=== PATIENT | female | born 1945 | race Caucasian/White ===

== ENCOUNTER 2018-01-31 16:02 | Observation (INO) | payer OTHER ==
--- OUTSIDE RECORDS SUMMARY | 2018-01-31 16:04 | XMS REPORT | Clinical Summary ---
:1945 Author Organization [facility] Address [address] [place] [address] Phone Care Team Providers Name Role Phone Unavailable Primary Care Provider Unavailable Allergies Active Allergy Reactions Severity Noted Date Comments Aspirin (Tartrazine 12/25/2016 Only) Iodine Itching, Swelling 12/26/2016 IV IODINE ONLY Haloperidol Anxiety Low 12/25/2016 Haloperidol Lactate Anxiety Low 12/26/2016 Iodine And Iodide Hives, Rash Low 12/25/2016 Containing Products Latex Hives, Itching, Rash Low 12/25/2016 Morphine Hives, Anxiety, Other Low 12/25/2016 High blood pressure (See Comments) Penicillins Hives, Rash, Swelling Low 12/25/2016 Pregabalin Anxiety Low 12/26/2016 Current Medications Prescription Sig. Disp. Refills Start Date End Date Status DULoxetine (CYMBALTA) Take 120 mg by Active 60 MG capsule mouth daily. gabapentin Take 600 mg by Active (NEURONTIN) 600 MG mouth 4 (four) tablet times daily. ferrous sulfate 325 Take 325 mg by Active (65 FE) MG tablet mouth daily with breakfast. montelukast Take 10 mg by Active (SINGULAIR) 10 mg mouth nightly. tablet oxazepam (SERAX) 30 Take 30 mg by Active MG capsule mouth 4 (four) times daily. budesonide-formoterol Inhale 2 puffs Active (SYMBICORT) 160-4.5 by mouth via mcg/actuation inhaler inhaler 2 (two) times daily. zolpidem (AMBIEN) 10 Take 10 mg by Active mg tablet mouth every night as needed for Insomnia. carvedilol (COREG) Take 2 tablets 0 2017 Active 12.5 MG tablet (25 mg total) by mouth 2 (two) times daily with breakfast and dinner. traMADol (ULTRAM) 50 Take 1 tablet 30 tablet 0 2017 Active mg tablet (50 mg total) by mouth every 8 (eight) hours as needed for Pain. Max Daily Amount: 150 mg famotidine (PEPCID) Take 1 tablet 0 2017 Active 20 MG tablet (20 mg total) by mouth 2 (two) times daily. zinc oxide-petrolatum Apply 71 g 0 2017 Active (CRITIC-AID) 20-51 % topically 2 Pste topical paste (two) times daily. atorvastatin Take 1 tablet 0 2017 2018 (LIPITOR) 80 MG (80 mg total) by tablet mouth nightly. clopidogrel (PLAVIX) Take 1 tablet 0 2017 2018 75 mg tablet (75 mg total) by mouth daily. cyanocobalamin 1000 Take 1 tablet 30 tablet 11 2017 2018 MCG tablet (1,000 mcg total) by mouth daily. ergocalciferol Take 1 capsule 4 capsule 0 2017 2018 (ERGOCALCIFEROL) (50,000 Units 50,000 unit capsule total) by mouth once a week. furosemide (LASIX) 20 Take 1 tablet 20 tablet 0 2017 2018 MG tablet (20 mg total) by mouth daily. modafinil (PROVIGIL) Take 1 tablet 0 2017 02/02/2017 100 MG tablet (100 mg total) by mouth daily for 30 days. Max Daily Amount: 100 mg nystatin (MYCOSTATIN) Apply topically 15 g 0 2017 2018 100,000 unit/gram 2 (two) times powder daily. Active Problems Problem Noted Date Vitamin D deficiency 01/02/2017 Leucocytosis 12/31/2016 Hypercalcemia 12/29/2016 Morbid obesity (HCC) 12/29/2016 Hyponatremia 12/26/2016 Atrial fibrillation ([facility]) 12/26/2016 Congestive heart failure (CHF) ([facility]) 12/26/2016 Acute right MCA stroke ([facility]) 12/25/2016 Social History Tobacco Use Types Packs/Day Years Used Date Never Smoker Alcohol Use Drinks/Week oz/Week Comments No Sex Assigned at Date Recorded Not on file Last Filed Vital Signs Not on file Plan of Treatment Not on file Results Not on fileafter 01/30/2017
--- OUTSIDE RECORDS SUMMARY | 2018-01-31 16:05 | XMS REPORT ---
:1945 [facility] Organization [facility] Address [address] [place] [address] Care Team Providers Name Role Phone GLORYCECYFROYLAN LOUIS Unavailable Unavailable Problems This patient has no known problems. Allergies, Adverse Reactions, Alerts This patient has no known allergies or adverse reactions. Medications This patient has no known medications. Results Test Description Test Time Test Comments Text Results Atomic Results Result Comments CREATININE CLEARANCE 2017-01-05 17:53:00 Test Item Value Reference Range Comments CREATININE CLEARANCE (BEAKER) (test 47.2 mL/min 70.0-140.0 xwuj=685) VOLUME, TOTAL (BEAKER) (test 1050 ml kkit=6147) CREATININE URINE (BEAKER) (test 78.9 mg/dL rhsd=707) [id number] (BEAKER) (test Linda Pitts MD (electronic dpdb=6476) signature) POCT-GLUCOSE [id number] 11:37:00 Test Item Value Reference Range Comments POC-GLUCOSE METER (BEAKER) 128 mg/dL 70-110 TESTED AT [address] (test ywnx=6226) [place] [id number] URINE [id number] 11:02:00 Test Item Value Reference Range Comments CULTURE (BEAKER) (test xkzl=0790) <10,000 col/mL skin jayshree POCT-GLUCOSE [id number] 06:28:00 Test Item Value Reference Range Comments POC-GLUCOSE METER (BEAKER) 101 mg/dL 70-110 TESTED AT [address] (test xben=1673) [facility] [address] POCT-GLUCOSE [id number] 00:46:00 Test Item Value Reference Range Comments POC-GLUCOSE METER (BEAKER) 130 mg/dL 70-110 TESTED AT [address] (test vuzg=8712) [place] [address] POCT-GLUCOSE [id number] 20:21:00 Test Item Value Reference Range Comments POC-GLUCOSE METER (BEAKER) 133 mg/dL 70-110 TESTED AT [address] (test upul=1246) [place] [address] [id number] 18:44:00 Test Item Value Reference Range Comments CREATININE (BEAKER) (test 0.82 mg/dL 0.57-1.25 gnet=701) EGFR (BEAKER) (test 69 mL/min/1.73 sq m ESTIMATED GFR IS NOT kpee=4349) ACCURATE CREATININE CLEARANCE IN PREDICTING GLOMERULAR FILTRATION RATE. ESTIMATED GFR IS NOT APPLICABLE FOR DIALYSIS PATIENTS. POCT-GLUCOSE [id number] 17:11:00 Test Item Value Reference Range Comments POC-GLUCOSE METER (BEAKER) 118 mg/dL 70-110 TESTED AT [address] (test qeht=0603) [place] [address] POCT-GLUCOSE [id number] 15:29:00 Test Item Value Reference Range Comments POC-GLUCOSE METER (BEAKER) 63 mg/dL 70-110 Notified CICI COTO/TESTED AT [facility] (test rtus=4008) [address] [place] [address] POCT-GLUCOSE [id number] 15:03:00 Test Item Value Reference Range Comments POC-GLUCOSE METER (BEAKER) 51 mg/dL 70-110 Notified CICI COTO/TESTED AT [facility] (test ugdy=4681) [address] [place], [place] [id number] POCT-GLUCOSE [id number] 11:28:00 Test Item Value Reference Range Comments POC-GLUCOSE METER (BEAKER) 75 mg/dL 70-110 TESTED AT [address] (test zvrp=8490) [place] [address] CALCIUM, 24 HOUR [id number] 09:19:00 Test Item Value Reference Range Comments VOLUME, TOTAL (BEAKER) (test jmyw=2415) 1050 ml CALCIUM URINE (BEAKER) (test svxf=433) 15.4 mg/dL CALCIUM, 24HR URINE (BEAKER) (test mgjs=0370) 162 mg/24 Hr 50-300 VITAMIN D, [id number] 07:18:00 Test Item Value Reference Range Comments VITAMIN D 25-OH (BEAKER) (test npfs=2590) < ng/mL 13.0-47.8 CBC W/PLT COUNT & AUTO [id number] 07:04:00 Test Item Value Reference Range Comments WHITE BLOOD CELL COUNT (BEAKER) (test lsym=898) 13.3 K/ L 4.0-10.0 RED BLOOD CELL COUNT (BEAKER) (test nukf=317) 3.79 M/ L 4.00-5.00 HEMOGLOBIN (BEAKER) (test ypfg=370) 12.3 GM/DL 12.0-15.0 HEMATOCRIT (BEAKER) (test vrnm=445) 37.1 % 36.0-45.0 MEAN CORPUSCULAR VOLUME (BEAKER) (test jpfy=663) 98.1 fL 82.0-99.0 MEAN CORPUSCULAR HEMOGLOBIN (BEAKER) (test 32.4 pg 27.0-33.0 axbs=245) MEAN CORPUSCULAR HEMOGLOBIN CONC (BEAKER) (test 33.0 GM/DL 32.0-36.0 ydmc=809) RED CELL DISTRIBUTION WIDTH (BEAKER) (test 15.2 % 10.3-14.2 msda=234) PLATELET COUNT (BEAKER) (test uave=530) 218 K/CU MM 150-430 MEAN PLATELET VOLUME (BEAKER) (test mttb=417) 7.3 fL 6.5-10.5 NUCLEATED RED BLOOD CELLS (BEAKER) (test 0 /100 WBC 0-0 pngp=883) NEUTROPHILS RELATIVE PERCENT (BEAKER) (test 79 % pgia=472) LYMPHOCYTES RELATIVE PERCENT (BEAKER) (test 16 % lzel=130) MONOCYTES RELATIVE PERCENT (BEAKER) (test 5 % ijks=678) EOSINOPHILS RELATIVE PERCENT (BEAKER) (test 1 % jkyt=315) BASOPHILS RELATIVE PERCENT (BEAKER) (test 0 % hvgo=505) NEUTROPHILS ABSOLUTE COUNT (BEAKER) (test 10.40 K/ L 1.80-8.00 jdyz=674) LYMPHOCYTES ABSOLUTE COUNT (BEAKER) (test 2.05 K/ L 1.48-4.50 hdtp=639) MONOCYTES ABSOLUTE COUNT (BEAKER) (test 0.69 K/ L 0.00-1.30 vwrb=503) EOSINOPHILS ABSOLUTE COUNT (BEAKER) (test 0.09 K/ L 0.00-0.50 tntb=207) BASOPHILS ABSOLUTE COUNT (BEAKER) (test 0.01 K/ L 0.00-0.20 dcvs=846) 0.00BASIC METABOLIC [id number] 07:01:00 Test Item Value Reference Range Comments SODIUM (BEAKER) (test 142 meq/L 136-145 kbzh=332) POTASSIUM (BEAKER) (test 3.7 meq/L 3.5-5.1 gwvs=731) CHLORIDE (BEAKER) (test 104 meq/L 98-107 ejaf=871) CO2 (BEAKER) (test 27 meq/L 22-29 rgws=378) BLOOD UREA NITROGEN 35 mg/dL 7-21 (BEAKER) (test gnit=459) CREATININE (BEAKER) (test 0.86 mg/dL 0.57-1.25 okys=954) GLUCOSE RANDOM (BEAKER) 144 mg/dL 70-105 (test vtje=827) CALCIUM (BEAKER) (test 11.6 mg/dL 8.4-10.2 oysc=671) EGFR (BEAKER) (test 65 mL/min/1.73 sq m ESTIMATED GFR IS NOT obvm=1450) ACCURATE CREATININE CLEARANCE IN PREDICTING GLOMERULAR FILTRATION RATE. ESTIMATED GFR IS NOT APPLICABLE FOR DIALYSIS PATIENTS. [id number] 06:57:00 Test Item Value Reference Range Comments PHOSPHORUS (BEAKER) (test acki=088) 3.0 mg/dL 2.3-4.7 [id number] 06:57:00 Test Item Value Reference Range Comments MAGNESIUM (BEAKER) (test gwqm=566) 2.2 mg/dL 1.6-2.6 [id number] 06:34:00 Test Item Value Reference Range Comments ALBUMIN (BEAKER) (test inpp=0215) 3.8 g/dL 3.5-5.0 POCT-GLUCOSE [id number] 06:32:00 Test Item Value Reference Range Comments POC-GLUCOSE METER (BEAKER) 104 mg/dL 70-110 TESTED AT [address] (test qikz=1684) [facility] [address] POCT-GLUCOSE [id number] 23:41:00 Test Item Value Reference Range Comments POC-GLUCOSE METER (BEAKER) 108 mg/dL 70-110 TESTED AT [address] (test rorw=8273) [place] [address] POCT-GLUCOSE [id number] 17:58:00 Test Item Value Reference Range Comments POC-GLUCOSE METER (BEAKER) 112 mg/dL 70-110 TESTED AT [address] (test mspv=1039) [place] [address] URINALYSIS W/ REFLEX URINE [id number] 16:02:00 Test Item Value Reference Range Comments COLOR (BEAKER) (test vxqm=495) Yellow CLARITY (BEAKER) (test suag=945) Clear SPECIFIC GRAVITY UA (BEAKER) (test ngeu=992) 1.015 1.001-1.035 PH UA (BEAKER) (test hadq=579) 6.0 5.0-8.0 PROTEIN UA (BEAKER) (test xplh=522) Negative Negative GLUCOSE UA (BEAKER) (test rqhu=989) Negative Negative KETONES UA (BEAKER) (test uhih=507) Negative Negative BILIRUBIN UA (BEAKER) (test oowm=448) Negative Negative BLOOD UA (BEAKER) (test gyso=351) Negative Negative NITRITE UA (BEAKER) (test xbev=662) Negative Negative LEUKOCYTE ESTERASE UA (BEAKER) (test hcym=178) Moderate Negative UROBILINOGEN UA (BEAKER) (test ilyy=553) 0.2 mg/dL 0.2-1.0 RBC UA (BEAKER) (test qjgo=721) 10 /HPF WBC UA (BEAKER) (test qesh=465) 29 /HPF MUCUS (BEAKER) (test ltrr=1517) Few SQUAMOUS EPITHELIAL (BEAKER) (test vsvu=205) 1 /HPF HYALINE CASTS (BEAKER) (test bpqp=066) 2 /LPF SOURCE(BEAKER) (test wfqk=5825) POCT-GLUCOSE [id number] 12:49:00 Test Item Value Reference Range Comments POC-GLUCOSE METER (BEAKER) 79 mg/dL 70-110 TESTED AT [address] (test weob=7767) [place] [id number] CBC W/PLT COUNT & AUTO [id number] 09:59:00 Test Item Value Reference Range Comments WHITE BLOOD CELL COUNT (BEAKER) (test athm=357) 17.0 K/ L 4.0-10.0 RED BLOOD CELL COUNT (BEAKER) (test imad=548) 3.96 M/ L 4.00-5.00 HEMOGLOBIN (BEAKER) (test hmgz=689) 12.1 GM/DL 12.0-15.0 HEMATOCRIT (BEAKER) (test suzo=085) 39.2 % 36.0-45.0 MEAN CORPUSCULAR VOLUME (BEAKER) (test ydfo=918) 99.0 fL 82.0-99.0 MEAN CORPUSCULAR HEMOGLOBIN (BEAKER) (test 30.5 pg 27.0-33.0 sgqj=466) MEAN CORPUSCULAR HEMOGLOBIN CONC (BEAKER) (test 30.8 GM/DL 32.0-36.0 dbsl=991) RED CELL DISTRIBUTION WIDTH (BEAKER) (test 15.5 % 10.3-14.2 ypwp=635) PLATELET COUNT (BEAKER) (test opyy=405) 219 K/CU MM 150-430 MEAN PLATELET VOLUME (BEAKER) (test dmqo=613) 7.3 fL 6.5-10.5 NUCLEATED RED BLOOD CELLS (BEAKER) (test 0 /100 WBC 0-0 dgvi=259) NEUTROPHILS RELATIVE PERCENT (BEAKER) (test 80 % xccs=978) LYMPHOCYTES RELATIVE PERCENT (BEAKER) (test 14 % eqqn=025) MONOCYTES RELATIVE PERCENT (BEAKER) (test 6 % fjwp=850) EOSINOPHILS RELATIVE PERCENT (BEAKER) (test 1 % texe=089) BASOPHILS RELATIVE PERCENT (BEAKER) (test 0 % vebg=584) NEUTROPHILS ABSOLUTE COUNT (BEAKER) (test 13.60 K/ L 1.80-8.00 ieko=145) LYMPHOCYTES ABSOLUTE COUNT (BEAKER) (test 2.32 K/ L 1.48-4.50 axwx=565) MONOCYTES ABSOLUTE COUNT (BEAKER) (test 0.97 K/ L 0.00-1.30 ykvq=063) EOSINOPHILS ABSOLUTE COUNT (BEAKER) (test 0.10 K/ L 0.00-0.50 erkz=752) BASOPHILS ABSOLUTE COUNT (BEAKER) (test 0.01 K/ L 0.00-0.20 ttqg=817) 0.000.510.000.000.000.00(MANUAL DIFFERENTIAL)2017-01-01 09:59:00 Test Item Value Reference Range Comments TOTAL COUNTED (BEAKER) (test ukwn=5141) WBC MORPHOLOGY (BEAKER) (test cwwd=019) Normal PLT MORPHOLOGY (BEAKER) (test kgcz=187) Normal RBC MORPHOLOGY (BEAKER) (test hryu=450) Normal POCT-GLUCOSE [id number] 06:20:00 Test Item Value Reference Range Comments POC-GLUCOSE METER (BEAKER) 140 mg/dL 70-110 TESTED AT [facility] [address] (test pvnx=1485) [facility] [address] [id number] 06:11:00 Test Item Value Reference Range Comments ALBUMIN (BEAKER) (test 3.2 g/dL 3.5-5.0 Specimen moderately hemolyzed psds=8585) BASIC METABOLIC [id number] 06:00:00 Test Item Value Reference Range Comments SODIUM (BEAKER) (test 143 meq/L 136-145 iwuv=305) POTASSIUM (BEAKER) (test 3.8 meq/L 3.5-5.1 enqy=564) CHLORIDE (BEAKER) (test 102 meq/L 98-107 aedq=901) CO2 (BEAKER) (test 31 meq/L 22-29 blgs=329) BLOOD UREA NITROGEN 33 mg/dL 7-21 (BEAKER) (test bcmu=389) CREATININE (BEAKER) (test 0.89 mg/dL 0.57-1.25 iwog=479) GLUCOSE RANDOM (BEAKER) 145 mg/dL 70-105 (test ybow=521) CALCIUM (BEAKER) (test 11.6 mg/dL 8.4-10.2 asni=574) EGFR (BEAKER) (test 63 mL/min/1.73 sq m ESTIMATED GFR IS NOT pjzi=9699) ACCURATE CREATININE CLEARANCE IN PREDICTING GLOMERULAR FILTRATION RATE. ESTIMATED GFR IS NOT APPLICABLE FOR DIALYSIS PATIENTS. [id number] 05:59:00 Test Item Value Reference Range Comments PHOSPHORUS (BEAKER) (test ttyf=939) 3.1 mg/dL 2.3-4.7 [id number] 05:59:00 Test Item Value Reference Range Comments MAGNESIUM (BEAKER) (test qhjv=671) 2.0 mg/dL 1.6-2.6 POCT-GLUCOSE [id number] 23:38:00 Test Item Value Reference Range Comments POC-GLUCOSE METER (BEAKER) 156 mg/dL 70-110 TESTED AT [address] (test qbsc=5655) [facility] [address] POCT-GLUCOSE [id number] 18:18:00 Test Item Value Reference Range Comments POC-GLUCOSE METER (BEAKER) 110 mg/dL 70-110 TESTED AT [address] (test ifyr=4883) [place] [id number] POCT-GLUCOSE [id number] 11:44:00 Test Item Value Reference Range Comments POC-GLUCOSE METER (BEAKER) 79 mg/dL 70-110 TESTED AT [address] (test vnfa=3372) [place] [id number] CBC W/PLT COUNT & AUTO [id number] 11:03:00 Test Item Value Reference Range Comments WHITE BLOOD CELL COUNT (BEAKER) (test bygd=743) 13.9 K/ L 4.0-10.0 RED BLOOD CELL COUNT (BEAKER) (test aphn=177) 3.86 M/ L 4.00-5.00 HEMOGLOBIN (BEAKER) (test foou=289) 12.4 GM/DL 12.0-15.0 HEMATOCRIT (BEAKER) (test pjxr=476) 37.7 % 36.0-45.0 MEAN CORPUSCULAR VOLUME (BEAKER) (test wjyi=205) 97.5 fL 82.0-99.0 MEAN CORPUSCULAR HEMOGLOBIN (BEAKER) (test 32.2 pg 27.0-33.0 ohcu=205) MEAN CORPUSCULAR HEMOGLOBIN CONC (BEAKER) (test 33.0 GM/DL 32.0-36.0 svnq=432) RED CELL DISTRIBUTION WIDTH (BEAKER) (test 16.4 % 10.3-14.2 titv=554) PLATELET COUNT (BEAKER) (test yvem=930) 248 K/CU MM 150-430 MEAN PLATELET VOLUME (BEAKER) (test uqbu=964) 7.1 fL 6.5-10.5 NUCLEATED RED BLOOD CELLS (BEAKER) (test 0 /100 WBC 0-0 qvnv=617) NEUTROPHILS RELATIVE PERCENT (BEAKER) (test 81 % qscj=329) LYMPHOCYTES RELATIVE PERCENT (BEAKER) (test 12 % bqzl=076) MONOCYTES RELATIVE PERCENT (BEAKER) (test 6 % miuk=949) EOSINOPHILS RELATIVE PERCENT (BEAKER) (test 1 % orvk=330) BASOPHILS RELATIVE PERCENT (BEAKER) (test 0 % iujg=470) NEUTROPHILS ABSOLUTE COUNT (BEAKER) (test 11.30 K/ L 1.80-8.00 amgy=099) LYMPHOCYTES ABSOLUTE COUNT (BEAKER) (test 1.62 K/ L 1.48-4.50 cotl=608) MONOCYTES ABSOLUTE COUNT (BEAKER) (test 0.84 K/ L 0.00-1.30 zhyp=629) EOSINOPHILS ABSOLUTE COUNT (BEAKER) (test 0.15 K/ L 0.00-0.50 gwys=667) BASOPHILS ABSOLUTE COUNT (BEAKER) (test 0.03 K/ L 0.00-0.20 jklg=445) 0.000.520.000.000.000.000.000.000.00(MANUAL DIFFERENTIAL)2016-12-31 11:03:00 Test Item Value Reference Range Comments TOTAL COUNTED (BEAKER) (test ytus=1192) WBC MORPHOLOGY (BEAKER) (test ijzd=641) Normal PLT MORPHOLOGY (BEAKER) (test wflz=914) Normal RBC MORPHOLOGY (BEAKER) (test brji=300) Normal POCT-GLUCOSE [id number] 06:21:00 Test Item Value Reference Range Comments POC-GLUCOSE METER (BEAKER) 152 mg/dL 70-110 TESTED AT [facility] [address] [place] [address] (test ywpp=8386) [facility] [address] BASIC METABOLIC [id number] 06:04:00 Test Item Value Reference Range Comments SODIUM (BEAKER) (test 142 meq/L 136-145 unnx=522) POTASSIUM (BEAKER) (test 3.8 meq/L 3.5-5.1 cvnh=726) CHLORIDE (BEAKER) (test 102 meq/L 98-107 lcox=829) CO2 (BEAKER) (test 29 meq/L 22-29 izep=528) BLOOD UREA NITROGEN 34 mg/dL 7-21 (BEAKER) (test xbul=200) CREATININE (BEAKER) (test 0.85 mg/dL 0.57-1.25 fajn=038) GLUCOSE RANDOM (BEAKER) 151 mg/dL 70-105 (test gibt=742) CALCIUM (BEAKER) (test 11.7 mg/dL 8.4-10.2 aptu=488) EGFR (BEAKER) (test 66 mL/min/1.73 sq m ESTIMATED GFR IS NOT dxyb=9925) ACCURATE CREATININE CLEARANCE IN PREDICTING GLOMERULAR FILTRATION RATE. ESTIMATED GFR IS NOT APPLICABLE FOR DIALYSIS PATIENTS. [id number] 05:56:00 Test Item Value Reference Range Comments PHOSPHORUS (BEAKER) (test nhhj=003) 3.5 mg/dL 2.3-4.7 [id number] 05:56:00 Test Item Value Reference Range Comments MAGNESIUM (BEAKER) (test vxfp=828) 1.9 mg/dL 1.6-2.6 POCT-GLUCOSE [id number] 23:51:00 Test Item Value Reference Range Comments POC-GLUCOSE METER (BEAKER) 168 mg/dL 70-110 TESTED AT [address] (test pamt=0232) [facility] [address] POCT-GLUCOSE [id number] 18:34:00 Test Item Value Reference Range Comments POC-GLUCOSE METER (BEAKER) 80 mg/dL 70-110 TESTED AT [address] (test ekrf=7615) [facility] [address] POCT-GLUCOSE [id number] 16:09:00 Test Item Value Reference Range Comments POC-GLUCOSE METER (BEAKER) 83 mg/dL 70-110 TESTED AT [address] (test gxrd=3984) [facility] [address] POCT-GLUCOSE [id number] 16:09:00 Test Item Value Reference Range Comments POC-GLUCOSE METER (BEAKER) 41 mg/dL 70-110 TESTED AT [address] (test voxo=3082) [facility] [address] POCT-GLUCOSE [id number] 15:20:00 Test Item Value Reference Range Comments POC-GLUCOSE METER (BEAKER) 44 mg/dL 70-110 TESTED AT [address] (test tcox=4782) [facility] [address] POCT-GLUCOSE [id number] 08:27:00 Test Item Value Reference Range Comments POC-GLUCOSE METER (BEAKER) 114 mg/dL 70-110 TESTED AT [address] (test ykob=9144) [facility] [address] POCT-GLUCOSE [id number] 08:27:00 Test Item Value Reference Range Comments POC-GLUCOSE METER (BEAKER) 35 mg/dL 70-110 [address] (test xgee=7674) [facility] [address] CBC W/PLT COUNT & AUTO [id number] 07:04:00 Test Item Value Reference Range Comments WHITE BLOOD CELL COUNT (BEAKER) (test vtkj=512) 8.2 K/ L 4.0-10.0 RED BLOOD CELL COUNT (BEAKER) (test mpqe=132) 4.05 M/ L 4.00-5.00 HEMOGLOBIN (BEAKER) (test zrjh=676) 12.8 GM/DL 12.0-15.0 HEMATOCRIT (BEAKER) (test qmwo=218) 39.2 % 36.0-45.0 MEAN CORPUSCULAR VOLUME (BEAKER) (test bygh=610) 97.0 fL 82.0-99.0 MEAN CORPUSCULAR HEMOGLOBIN (BEAKER) (test 31.7 pg 27.0-33.0 hvga=028) MEAN CORPUSCULAR HEMOGLOBIN CONC (BEAKER) (test 32.7 GM/DL 32.0-36.0 zwde=541) RED CELL DISTRIBUTION WIDTH (BEAKER) (test 15.6 % 10.3-14.2 poqr=185) PLATELET COUNT (BEAKER) (test mqas=547) 275 K/CU MM 150-430 MEAN PLATELET VOLUME (BEAKER) (test qukj=965) 6.9 fL 6.5-10.5 NUCLEATED RED BLOOD CELLS (BEAKER) (test 0 /100 WBC 0-0 cjck=187) NEUTROPHILS RELATIVE PERCENT (BEAKER) (test 63 % qnos=401) LYMPHOCYTES RELATIVE PERCENT (BEAKER) (test 27 % wjir=336) MONOCYTES RELATIVE PERCENT (BEAKER) (test 7 % cqlm=783) EOSINOPHILS RELATIVE PERCENT (BEAKER) (test 2 % myiz=039) BASOPHILS RELATIVE PERCENT (BEAKER) (test 1 % afko=375) NEUTROPHILS ABSOLUTE COUNT (BEAKER) (test 5.13 K/ L 1.80-8.00 qkhw=714) LYMPHOCYTES ABSOLUTE COUNT (BEAKER) (test 2.21 K/ L 1.48-4.50 atgd=285) MONOCYTES ABSOLUTE COUNT (BEAKER) (test 0.59 K/ L 0.00-1.30 pcgh=373) EOSINOPHILS ABSOLUTE COUNT (BEAKER) (test 0.18 K/ L 0.00-0.50 xgny=825) BASOPHILS ABSOLUTE COUNT (BEAKER) (test 0.10 K/ L 0.00-0.20 brxp=894) 0.00POCT-GLUCOSE [id number] 06:20:00 Test Item Value Reference Range Comments POC-GLUCOSE METER (BEAKER) 62 mg/dL 70-110 Notified CICI COTO/TESTED AT [facility] (test omdp=2291) [address] [facility] [address] BASIC METABOLIC [id number] 06:13:00 Test Item Value Reference Range Comments SODIUM (BEAKER) (test 141 meq/L 136-145 xxgv=877) POTASSIUM (BEAKER) (test 4.3 meq/L 3.5-5.1 dfev=262) CHLORIDE (BEAKER) (test 99 meq/L 98-107 hmzo=296) CO2 (BEAKER) (test 33 meq/L 22-29 rowr=385) BLOOD UREA NITROGEN 36 mg/dL 7-21 (BEAKER) (test rgpo=024) CREATININE (BEAKER) (test 0.93 mg/dL 0.57-1.25 cukw=215) GLUCOSE RANDOM (BEAKER) 107 mg/dL 70-105 (test xrdw=091) CALCIUM (BEAKER) (test 11.9 mg/dL 8.4-10.2 ewcj=803) EGFR (BEAKER) (test 59 mL/min/1.73 sq m ESTIMATED GFR IS NOT xjqi=7921) ACCURATE CREATININE CLEARANCE IN PREDICTING GLOMERULAR FILTRATION RATE. ESTIMATED GFR IS NOT APPLICABLE FOR DIALYSIS PATIENTS. [id number] 06:10:00 Test Item Value Reference Range Comments PHOSPHORUS (BEAKER) (test ptht=208) 3.5 mg/dL 2.3-4.7 [id number] 06:10:00 Test Item Value Reference Range Comments MAGNESIUM (BEAKER) (test kaek=897) 2.2 mg/dL 1.6-2.6 PROTHROMBIN [id number] 06:05:00 Test Item Value Reference Range Comments PROTIME (BEAKER) (test scmf=056) 15.5 seconds 11.7-14.7 INR (BEAKER) (test ubab=127) 1.2 <=5.9 RECOMMENDED COUMADIN/WARFARIN INR THERAPY RANGESSTANDARD DOSE: 2.0 - 3.0 Includes: PROPHYLAXIS forvenous thrombosis, systemic embolization; TREATMENT for venous thrombosis and/or pulmonary embolus.HIGH RISK: Target INR is 2.5-3.5 for patients with mechanical heart valves.POCT-GLUCOSE [id number] 23:58:00 Test Item Value Reference Range Comments POC-GLUCOSE METER (BEAKER) 108 mg/dL 70-110 TESTED AT [address] (test jyij=7189) [place] [address] POCT-GLUCOSE [id number] 18:02:00 Test Item Value Reference Range Comments POC-GLUCOSE METER (BEAKER) 126 mg/dL 70-110 TESTED AT [address] (test yuuk=5372) [place] [address] PTH, [id number] 14:50:00 Test Item Value Reference Range Comments PARATHYROID HORMONE INTACT (BEAKER) (test 274.9 pg/mL 8.5-72.5 ylyh=340) Effective 08/19/2014: Reference Range ChangeNew: 8.5-72.5 Previous: 15.0- 90.0POCT-GLUCOSE [id number] 13:33:00 Test Item Value Reference Range Comments POC-GLUCOSE METER (BEAKER) 145 mg/dL 70-110 TESTED AT [address] (test rzfc=0141) [place] [address] CBC W/PLT COUNT & AUTO [id number] 08:35:00 Test Item Value Reference Range Comments WHITE BLOOD CELL COUNT (BEAKER) (test mgfr=069) 10.2 K/ L 4.0-10.0 RED BLOOD CELL COUNT (BEAKER) (test mcuu=518) 3.96 M/ L 4.00-5.00 HEMOGLOBIN (BEAKER) (test vxpu=561) 12.8 GM/DL 12.0-15.0 HEMATOCRIT (BEAKER) (test cbzg=733) 38.7 % 36.0-45.0 MEAN CORPUSCULAR VOLUME (BEAKER) (test oqia=660) 97.7 fL 82.0-99.0 MEAN CORPUSCULAR HEMOGLOBIN (BEAKER) (test 32.2 pg 27.0-33.0 tanl=603) MEAN CORPUSCULAR HEMOGLOBIN CONC (BEAKER) (test 33.0 GM/DL 32.0-36.0 xuqo=995) RED CELL DISTRIBUTION WIDTH (BEAKER) (test 16.7 % 10.3-14.2 mrwa=379) PLATELET COUNT (BEAKER) (test iyoi=138) 279 K/CU MM 150-430 MEAN PLATELET VOLUME (BEAKER) (test vztn=631) 6.7 fL 6.5-10.5 NUCLEATED RED BLOOD CELLS (BEAKER) (test 0 /100 WBC 0-0 wruw=860) NEUTROPHILS RELATIVE PERCENT (BEAKER) (test 70 % hsod=998) LYMPHOCYTES RELATIVE PERCENT (BEAKER) (test 22 % zyly=517) MONOCYTES RELATIVE PERCENT (BEAKER) (test 7 % yytc=227) EOSINOPHILS RELATIVE PERCENT (BEAKER) (test 2 % wrdh=551) BASOPHILS RELATIVE PERCENT (BEAKER) (test 0 % gcrl=006) NEUTROPHILS ABSOLUTE COUNT (BEAKER) (test 7.11 K/ L 1.80-8.00 thnw=651) LYMPHOCYTES ABSOLUTE COUNT (BEAKER) (test 2.19 K/ L 1.48-4.50 pmxh=591) MONOCYTES ABSOLUTE COUNT (BEAKER) (test 0.70 K/ L 0.00-1.30 qlug=504) EOSINOPHILS ABSOLUTE COUNT (BEAKER) (test 0.18 K/ L 0.00-0.50 beyk=864) BASOPHILS ABSOLUTE COUNT (BEAKER) (test 0.02 K/ L 0.00-0.20 vshx=706) [id number](MANUAL DIFFERENTIAL)2016-12-29 08:35:00 Test Item Value Reference Range Comments TOTAL COUNTED (BEAKER) (test mfqh=3937) BASIC METABOLIC [id number] 06:00:00 Test Item Value Reference Range Comments SODIUM (BEAKER) (test 141 meq/L 136-145 plaf=983) POTASSIUM (BEAKER) (test 4.3 meq/L 3.5-5.1 Specimen slightly jsqh=715) hemolyzed CHLORIDE (BEAKER) (test 100 meq/L 98-107 nqbr=355) CO2 (BEAKER) (test 29 meq/L 22-29 tzdc=598) BLOOD UREA NITROGEN 34 mg/dL 7-21 (BEAKER) (test tnds=781) CREATININE (BEAKER) (test 0.91 mg/dL 0.57-1.25 Specimen slightly jhro=989) hemolyzed GLUCOSE RANDOM (BEAKER) 110 mg/dL 70-105 (test ckka=668) CALCIUM (BEAKER) (test 12.0 mg/dL 8.4-10.2 csqr=490) EGFR (BEAKER) (test 61 mL/min/1.73 sq m ESTIMATED GFR IS NOT tteu=7156) ACCURATE CREATININE CLEARANCE IN PREDICTING GLOMERULAR FILTRATION RATE. ESTIMATED GFR IS NOT APPLICABLE FOR DIALYSIS PATIENTS. [id number] 05:59:00 Test Item Value Reference Range Comments MAGNESIUM (BEAKER) (test 2.4 mg/dL 1.6-2.6 Specimen slightly hemolyzed ioht=658) [id number] 05:59:00 Test Item Value Reference Range Comments PHOSPHORUS (BEAKER) (test 3.1 mg/dL 2.3-4.7 Specimen slightly hemolyzed oyev=007) POCT-GLUCOSE [id number] 05:32:00 Test Item Value Reference Range Comments POC-GLUCOSE METER (BEAKER) 114 mg/dL 70-110 TESTED AT [address] (test srkm=8524) [place] [id number] POCT-GLUCOSE [id number] 00:02:00 Test Item Value Reference Range Comments POC-GLUCOSE METER (BEAKER) 106 mg/dL 70-110 TESTED AT [address] (test uypz=5838) [place] [id number] POCT-GLUCOSE [id number] 18:28:00 Test Item Value Reference Range Comments POC-GLUCOSE METER (BEAKER) 150 mg/dL 70-110 TESTED AT [address] (test jcvi=9607) [place] [id number] POCT-GLUCOSE [id number] 12:31:00 Test Item Value Reference Range Comments POC-GLUCOSE METER (BEAKER) 152 mg/dL 70-110 TESTED AT [address] (test qren=3954) [place] [id number] POCT-GLUCOSE [id number] 05:41:00 Test Item Value Reference Range Comments POC-GLUCOSE METER (BEAKER) 120 mg/dL 70-110 TESTED AT [address] (test ryaz=0484) [place] [id number] CBC W/PLT COUNT & AUTO [id number] 05:00:00 Test Item Value Reference Range Comments WHITE BLOOD CELL COUNT (BEAKER) (test kjrb=671) 8.8 K/ L 4.0-10.0 RED BLOOD CELL COUNT (BEAKER) (test wfjk=003) 3.76 M/ L 4.00-5.00 HEMOGLOBIN (BEAKER) (test ueoo=443) 11.3 GM/DL 12.0-15.0 HEMATOCRIT (BEAKER) (test irtj=354) 35.7 % 36.0-45.0 MEAN CORPUSCULAR VOLUME (BEAKER) (test ujoo=176) 95.1 fL 82.0-99.0 MEAN CORPUSCULAR HEMOGLOBIN (BEAKER) (test 30.2 pg 27.0-33.0 nkmc=785) MEAN CORPUSCULAR HEMOGLOBIN CONC (BEAKER) (test 31.7 GM/DL 32.0-36.0 wirz=196) RED CELL DISTRIBUTION WIDTH (BEAKER) (test 15.5 % 10.3-14.2 sprk=899) PLATELET COUNT (BEAKER) (test zzfv=119) 259 K/CU MM 150-430 MEAN PLATELET VOLUME (BEAKER) (test bibq=147) 6.3 fL 6.5-10.5 NUCLEATED RED BLOOD CELLS (BEAKER) (test 0 /100 WBC 0-0 senh=779) NEUTROPHILS RELATIVE PERCENT (BEAKER) (test 72 % gsvp=243) LYMPHOCYTES RELATIVE PERCENT (BEAKER) (test 20 % mwfj=427) MONOCYTES RELATIVE PERCENT (BEAKER) (test 6 % ffjd=965) EOSINOPHILS RELATIVE PERCENT (BEAKER) (test 1 % efxj=466) BASOPHILS RELATIVE PERCENT (BEAKER) (test 0 % kxpb=356) NEUTROPHILS ABSOLUTE COUNT (BEAKER) (test 6.39 K/ L 1.80-8.00 yltm=808) LYMPHOCYTES ABSOLUTE COUNT (BEAKER) (test 1.75 K/ L 1.48-4.50 vlil=492) MONOCYTES ABSOLUTE COUNT (BEAKER) (test 0.57 K/ L 0.00-1.30 ppdf=131) EOSINOPHILS ABSOLUTE COUNT (BEAKER) (test 0.11 K/ L 0.00-0.50 rzny=669) BASOPHILS ABSOLUTE COUNT (BEAKER) (test 0.02 K/ L 0.00-0.20 qtxu=489) 0.00BASIC METABOLIC [id number] 04:58:00 Test Item Value Reference Range Comments SODIUM (BEAKER) (test 142 meq/L 136-145 ypyd=247) POTASSIUM (BEAKER) (test 3.6 meq/L 3.5-5.1 Specimen slightly cpxm=327) hemolyzed CHLORIDE (BEAKER) (test 98 meq/L 98-107 twep=051) CO2 (BEAKER) (test 32 meq/L 22-29 xurx=538) BLOOD UREA NITROGEN 32 mg/dL 7-21 (BEAKER) (test qxkz=475) CREATININE (BEAKER) (test 0.92 mg/dL 0.57-1.25 Specimen slightly hnfd=916) hemolyzed GLUCOSE RANDOM (BEAKER) 134 mg/dL 70-105 (test vunr=963) CALCIUM (BEAKER) (test 11.5 mg/dL 8.4-10.2 bard=676) EGFR (BEAKER) (test 60 mL/min/1.73 sq m ESTIMATED GFR IS NOT dwjq=1136) ACCURATE CREATININE CLEARANCE IN PREDICTING GLOMERULAR FILTRATION RATE. ESTIMATED GFR IS NOT APPLICABLE FOR DIALYSIS PATIENTS. [id number] 04:57:00 Test Item Value Reference Range Comments MAGNESIUM (BEAKER) (test 2.5 mg/dL 1.6-2.6 Specimen slightly hemolyzed obhp=277) [id number] 04:57:00 Test Item Value Reference Range Comments PHOSPHORUS (BEAKER) (test 3.3 mg/dL 2.3-4.7 Specimen slightly hemolyzed unig=738) POCT-GLUCOSE [id number] 00:44:00 Test Item Value Reference Range Comments POC-GLUCOSE METER (BEAKER) 142 mg/dL 70-110 TESTED AT [address] (test ltkg=6301) [facility] [address] POCT-GLUCOSE [id number] 18:34:00 Test Item Value Reference Range Comments POC-GLUCOSE METER (BEAKER) 115 mg/dL 70-110 TESTED AT [address] (test yfrn=4680) [facility] [address] POCT-GLUCOSE [id number] 12:21:00 Test Item Value Reference Range Comments POC-GLUCOSE METER (BEAKER) 123 mg/dL 70-110 TESTED AT [address] (test umww=9821) [place] [address] URINE [id number] 10:42:00 Test Item Value Reference Range Comments CULTURE (BEAKER) (test ypqz=8393) No growth [id number] 06:53:00 Test Item Value Reference Range Comments POTASSIUM (BEAKER) (test nado=741) 3.6 meq/L 3.5-5.1 Check Serum Potassium level 2 hours after oral potassium replacement completed or 30 min after intravenous potassium replacement.[id number] 06:53:00 Test Item Value Reference Range Comments MAGNESIUM (BEAKER) (test gdlx=101) 2.7 mg/dL 1.6-2.6 Check Serum Potassium level 2 hours after oral potassium replacement completed or 30 min after intravenous potassium replacement.POCT-GLUCOSE [id number] 06:27:00 Test Item Value Reference Range Comments POC-GLUCOSE METER (BEAKER) 113 mg/dL 70-110 TESTED AT [address] (test fqmw=8983) [place] [address] BASIC METABOLIC [id number] 02:30:00 Test Item Value Reference Range Comments SODIUM (BEAKER) (test 139 meq/L 136-145 lxwp=623) POTASSIUM (BEAKER) (test 3.8 meq/L 3.5-5.1 xqwu=944) CHLORIDE (BEAKER) (test 95 meq/L 98-107 osve=839) CO2 (BEAKER) (test 30 meq/L 22-29 wadh=037) BLOOD UREA NITROGEN 24 mg/dL 7-21 (BEAKER) (test wswt=443) CREATININE (BEAKER) (test 0.96 mg/dL 0.57-1.25 wrko=572) GLUCOSE RANDOM (BEAKER) 122 mg/dL 70-105 (test hjfv=259) CALCIUM (BEAKER) (test 11.6 mg/dL 8.4-10.2 xlip=527) EGFR (BEAKER) (test 57 mL/min/1.73 sq m ESTIMATED GFR IS NOT iueq=2857) ACCURATE CREATININE CLEARANCE IN PREDICTING GLOMERULAR FILTRATION RATE. ESTIMATED GFR IS NOT APPLICABLE FOR DIALYSIS PATIENTS. [id number] 02:29:00 Test Item Value Reference Range Comments PHOSPHORUS (BEAKER) (test kgbz=242) 3.5 mg/dL 2.3-4.7 [id number] 02:29:00 Test Item Value Reference Range Comments MAGNESIUM (BEAKER) (test ynxn=509) 2.2 mg/dL 1.6-2.6 [id number] 02:29:00 Test Item Value Reference Range Comments SODIUM (BEAKER) (test cxcb=893) 139 meq/L 136-145 CBC W/PLT COUNT & AUTO [id number] 02:21:00 Test Item Value Reference Range Comments WHITE BLOOD CELL COUNT (BEAKER) (test opbp=804) 6.2 K/ L 4.0-10.0 RED BLOOD CELL COUNT (BEAKER) (test nufc=763) 3.77 M/ L 4.00-5.00 HEMOGLOBIN (BEAKER) (test iyua=709) 11.8 GM/DL 12.0-15.0 HEMATOCRIT (BEAKER) (test mdwh=451) 36.1 % 36.0-45.0 MEAN CORPUSCULAR VOLUME (BEAKER) (test hvsg=200) 95.9 fL 82.0-99.0 MEAN CORPUSCULAR HEMOGLOBIN (BEAKER) (test 31.3 pg 27.0-33.0 hmeh=200) MEAN CORPUSCULAR HEMOGLOBIN CONC (BEAKER) (test 32.6 GM/DL 32.0-36.0 twhz=725) RED CELL DISTRIBUTION WIDTH (BEAKER) (test 16.7 % 10.3-14.2 mhlq=067) PLATELET COUNT (BEAKER) (test mzqb=142) 247 K/CU MM 150-430 MEAN PLATELET VOLUME (BEAKER) (test xwuf=518) 6.3 fL 6.5-10.5 NUCLEATED RED BLOOD CELLS (BEAKER) (test 0 /100 WBC 0-0 oiyi=161) NEUTROPHILS RELATIVE PERCENT (BEAKER) (test 73 % mctf=786) LYMPHOCYTES RELATIVE PERCENT (BEAKER) (test 19 % unqu=814) MONOCYTES RELATIVE PERCENT (BEAKER) (test 8 % izbv=103) EOSINOPHILS RELATIVE PERCENT (BEAKER) (test 0 % djby=285) BASOPHILS RELATIVE PERCENT (BEAKER) (test 0 % ksxm=030) NEUTROPHILS ABSOLUTE COUNT (BEAKER) (test 4.53 K/ L 1.80-8.00 qool=238) LYMPHOCYTES ABSOLUTE COUNT (BEAKER) (test 1.16 K/ L 1.48-4.50 nxlu=191) MONOCYTES ABSOLUTE COUNT (BEAKER) (test 0.47 K/ L 0.00-1.30 tlbg=868) EOSINOPHILS ABSOLUTE COUNT (BEAKER) (test 0.02 K/ L 0.00-0.50 kpxg=932) BASOPHILS ABSOLUTE COUNT (BEAKER) (test 0.00 K/ L 0.00-0.20 mpot=427) 0.00POCT-GLUCOSE [id number] 00:44:00 Test Item Value Reference Range Comments POC-GLUCOSE METER (BEAKER) 121 mg/dL 70-110 TESTED AT [address] (test gggw=0695) [facility] [address] [id number] 20:34:00 Test Item Value Reference Range Comments SODIUM (BEAKER) (test xvkb=506) 138 meq/L 136-145 HEPATIC FUNCTION [id number] 20:34:00 Test Item Value Reference Range Comments TOTAL PROTEIN (BEAKER) (test zsqs=737) 6.7 gm/dL 6.0-8.3 ALBUMIN (BEAKER) (test hkak=9766) 3.6 g/dL 3.5-5.0 BILIRUBIN TOTAL (BEAKER) (test llzb=095) 0.3 mg/dL 0.2-1.2 BILIRUBIN DIRECT (BEAKER) (test fkjt=048) 0.2 mg/dL 0.1-0.5 ALKALINE PHOSPHATASE (BEAKER) (test iunr=456) 148 U/L 40-150 AST (SGOT) (BEAKER) (test yoxn=148) 15 U/L 5-34 ALT (SGPT) (BEAKER) (test hlsi=809) 15 U/L 6-55 [id number] 20:25:00 Test Item Value Reference Range Comments AMMONIA (BEAKER) (test rffr=848) 30 mol/L 18-72 POCT-GLUCOSE [id number] 19:58:00 Test Item Value Reference Range Comments POC-GLUCOSE METER (BEAKER) 125 mg/dL 70-110 TESTED AT [address] (test gipm=9628) [facility] [address] [id number] 14:30:00 Test Item Value Reference Range Comments RPR SCREEN (BEAKER) (test ufro=186) Nonreactive Nonreactive [id number] 13:35:00 Test Item Value Reference Range Comments SODIUM (BEAKER) (test tjni=919) 136 meq/L 136-145 [id number] 13:23:00 Test Item Value Reference Range Comments CORTISOL, TOTAL (BEAKER) (test rsmu=3114) 11.7 ug/dL 3.7-19.4 POCT-GLUCOSE [id number] 13:22:00 Test Item Value Reference Range Comments POC-GLUCOSE METER (BEAKER) 117 mg/dL 70-110 TESTED AT [facility] [address] [facility] (test cotm=9627) [place] [address] B-TYPE NATRIURETIC FACTOR (BNP)2016-12-26 11:55:00 Test Item Value Reference Range Comments B-TYPE NATRIURETIC PEPTIDE (BEAKER) (test 115 pg/mL 0-100 cuwx=597) [id number] 11:43:00 Test Item Value Reference Range Comments MAGNESIUM (BEAKER) (test 2.5 mg/dL 1.6-2.6 Specimen slightly hemolyzed murk=345) OSMOLALITY, [id number] 04:32:00 Test Item Value Reference Range Comments OSMOLALITY, SERUM (BEAKER) (test jlwz=656) 303 mOsm/kg 275-295 LIPID [id number] 04:04:00 Test Item Value Reference Range Comments TRIGLYCERIDES (BEAKER) (test ithe=688) 94 mg/dL CHOLESTEROL (BEAKER) (test kcql=861) 197 mg/dL HDL CHOLESTEROL (BEAKER) (test wblc=300) 54 mg/dL LDL CHOLESTEROL CALCULATED (BEAKER) (test 124 mg/dL ssqu=144) Triglyceride Reference Range: Low Risk <150 Borderline 150- 199 High Risk 200-499 Very High Risk >=500Cholesterol Reference Range: Low Risk <200 Borderline 200-239 High Risk > 240HDL Cholesterol Reference Range: Low Risk >=60 High Risk <40LDL Cholesterol Reference Range: Optimal <100 Near Optimal 100-129 Borderline 130-159 High 160-189 Very High >=190 [id number] 04:03:00 Test Item Value Reference Range Comments PHOSPHORUS (BEAKER) (test jcwz=892) 3.2 mg/dL 2.3-4.7 BASIC METABOLIC [id number] 04:03:00 Test Item Value Reference Range Comments SODIUM (BEAKER) (test 130 meq/L 136-145 nmds=147) POTASSIUM (BEAKER) (test 4.0 meq/L 3.5-5.1 hvze=158) CHLORIDE (BEAKER) (test 89 meq/L 98-107 busq=123) CO2 (BEAKER) (test 30 meq/L 22-29 bfbu=073) BLOOD UREA NITROGEN 24 mg/dL 7-21 (BEAKER) (test hhdj=130) CREATININE (BEAKER) (test 0.96 mg/dL 0.57-1.25 kuvg=788) GLUCOSE RANDOM (BEAKER) 111 mg/dL 70-105 (test obnk=700) CALCIUM (BEAKER) (test 11.1 mg/dL 8.4-10.2 sicr=896) EGFR (BEAKER) (test 57 mL/min/1.73 sq m ESTIMATED GFR IS NOT bbyp=6355) ACCURATE CREATININE CLEARANCE IN PREDICTING GLOMERULAR FILTRATION RATE. ESTIMATED GFR IS NOT APPLICABLE FOR DIALYSIS PATIENTS. CBC W/PLT COUNT & AUTO [id number] 03:43:00 Test Item Value Reference Range Comments WHITE BLOOD CELL COUNT (BEAKER) (test uvag=107) 6.9 K/ L 4.0-10.0 RED BLOOD CELL COUNT (BEAKER) (test ejzu=674) 3.81 M/ L 4.00-5.00 HEMOGLOBIN (BEAKER) (test uhbz=210) 12.0 GM/DL 12.0-15.0 HEMATOCRIT (BEAKER) (test eogs=814) 35.6 % 36.0-45.0 MEAN CORPUSCULAR VOLUME (BEAKER) (test rzgk=293) 93.4 fL 82.0-99.0 MEAN CORPUSCULAR HEMOGLOBIN (BEAKER) (test 31.4 pg 27.0-33.0 kwib=385) MEAN CORPUSCULAR HEMOGLOBIN CONC (BEAKER) (test 33.6 GM/DL 32.0-36.0 carq=133) RED CELL DISTRIBUTION WIDTH (BEAKER) (test 15.4 % 10.3-14.2 yqdm=555) PLATELET COUNT (BEAKER) (test deyh=011) 250 K/CU MM 150-430 MEAN PLATELET VOLUME (BEAKER) (test vvrn=398) 6.0 fL 6.5-10.5 NUCLEATED RED BLOOD CELLS (BEAKER) (test 0 /100 WBC 0-0 jjkp=599) NEUTROPHILS RELATIVE PERCENT (BEAKER) (test 67 % deuh=732) LYMPHOCYTES RELATIVE PERCENT (BEAKER) (test 20 % xcpe=713) MONOCYTES RELATIVE PERCENT (BEAKER) (test 12 % ozhc=299) EOSINOPHILS RELATIVE PERCENT (BEAKER) (test 1 % etyf=960) BASOPHILS RELATIVE PERCENT (BEAKER) (test 0 % pvur=686) NEUTROPHILS ABSOLUTE COUNT (BEAKER) (test 4.64 K/ L 1.80-8.00 lnml=072) LYMPHOCYTES ABSOLUTE COUNT (BEAKER) (test 1.38 K/ L 1.48-4.50 pxkw=827) MONOCYTES ABSOLUTE COUNT (BEAKER) (test 0.81 K/ L 0.00-1.30 gxys=371) EOSINOPHILS ABSOLUTE COUNT (BEAKER) (test 0.05 K/ L 0.00-0.50 ylls=234) BASOPHILS ABSOLUTE COUNT (BEAKER) (test 0.03 K/ L 0.00-0.20 ryzn=659) [id number] 01:55:00 Test Item Value Reference Range Comments POTASSIUM (BEAKER) (test ibwx=460) 3.2 meq/L 3.5-5.1 [id number] 01:55:00 Test Item Value Reference Range Comments MAGNESIUM (BEAKER) (test gcuf=738) 1.7 mg/dL 1.6-2.6 TROPONIN [id number] 01:21:00 Test Item Value Reference Range Comments TROPONIN I (BEAKER) (test ftyj=544) 0.01 ng/mL 0.00-0.03 Effective 08/19/2014: Reference Range ChangeNew: 0.00-0.03 Previous 0.00- 0.15Troponin I (TnI) levels must be interpreted in the context of the presenting symptoms and the clinical findings. Elevated TnI levels indicate myocardial damage, but are not specific for ischemic heart disease. Elevated TnI levels are seen in patients with other cardiac conditions (including myocarditis and congestive heartfailure), and slight TnI elevations occur in patients with other conditions, including sepsis, renalfailure, acidosis, acute neurological disease, and persistent tachyarrhythmia.POCT-GLUCOSE [id number] 01:03:00 Test Item Value Reference Range Comments POC-GLUCOSE METER (BEAKER) 161 mg/dL 70-110 TESTED AT [facility] [address] (test tiax=8120) [facility] [address] POCT-GLUCOSE [id number] 00:22:00 Test Item Value Reference Range Comments POC-GLUCOSE METER (BEAKER) 62 mg/dL 70-110 Notified CICI COTO/TESTED AT [facility] (test wjvo=9054) [address] [facility] [address] HEMOGLOBIN [id number] 22:44:00 Test Item Value Reference Range Comments HEMOGLOBIN A1C (BEAKER) (test wxic=473) 5.0 % 4.3-6.1 TSH/FREE T4 IF [id number] 21:14:00 Test Item Value Reference Range Comments THYROID STIMULATING HORMONE (BEAKER) (test 2.66 uIU/mL 0.35-4.94 oeaa=924) VITAMIN B12 AND [id number] 21:14:00 Test Item Value Reference Range Comments VITAMIN B12 (BEAKER) (test zgpw=493) 325 pg/mL 213-816 FOLATE (BEAKER) (test ggvn=006) 11.9 ng/mL >=7.0 Effective 08/19/2014: Folate Reference Range ChangeNew: >=7.0 Previous: & gt;=5.4CBC W/PLT COUNT & AUTO [id number] 19:39:00 Test Item Value Reference Range Comments WHITE BLOOD CELL COUNT (BEAKER) (test mpzy=386) 5.3 K/ L 4.0-10.0 RED BLOOD CELL COUNT (BEAKER) (test ubsr=392) 3.72 M/ L 4.00-5.00 HEMOGLOBIN (BEAKER) (test fifj=967) 11.6 GM/DL 12.0-15.0 HEMATOCRIT (BEAKER) (test pkrx=788) 35.0 % 36.0-45.0 MEAN CORPUSCULAR VOLUME (BEAKER) (test reye=200) 94.2 fL 82.0-99.0 MEAN CORPUSCULAR HEMOGLOBIN (BEAKER) (test 31.3 pg 27.0-33.0 bjzp=961) MEAN CORPUSCULAR HEMOGLOBIN CONC (BEAKER) (test 33.2 GM/DL 32.0-36.0 zomq=872) RED CELL DISTRIBUTION WIDTH (BEAKER) (test 16.5 % 10.3-14.2 qgry=351) PLATELET COUNT (BEAKER) (test zsqs=160) 220 K/CU MM 150-430 MEAN PLATELET VOLUME (BEAKER) (test qmkl=000) 6.2 fL 6.5-10.5 NUCLEATED RED BLOOD CELLS (BEAKER) (test 0 /100 WBC 0-0 dgoc=738) NEUTROPHILS RELATIVE PERCENT (BEAKER) (test 73 % eqgn=394) LYMPHOCYTES RELATIVE PERCENT (BEAKER) (test 17 % dlla=210) MONOCYTES RELATIVE PERCENT (BEAKER) (test 9 % esbs=272) EOSINOPHILS RELATIVE PERCENT (BEAKER) (test 0 % tzpf=038) BASOPHILS RELATIVE PERCENT (BEAKER) (test 0 % kuql=510) NEUTROPHILS ABSOLUTE COUNT (BEAKER) (test 3.85 K/ L 1.80-8.00 nbbg=760) LYMPHOCYTES ABSOLUTE COUNT (BEAKER) (test 0.91 K/ L 1.48-4.50 mujm=484) MONOCYTES ABSOLUTE COUNT (BEAKER) (test 0.49 K/ L 0.00-1.30 pqkd=344) EOSINOPHILS ABSOLUTE COUNT (BEAKER) (test 0.02 K/ L 0.00-0.50 amns=197) BASOPHILS ABSOLUTE COUNT (BEAKER) (test 0.01 K/ L 0.00-0.20 ajzi=504) 0.00TROPONIN [id number] 19:31:00 Test Item Value Reference Range Comments TROPONIN I (BEAKER) (test xzev=909) < ng/mL 0.00-0.03 Effective 08/19/2014: Reference Range ChangeNew: 0.00-0.03 Previous 0.00- 0.15Troponin I (TnI) levels must be interpreted in the context of the presenting symptoms and the clinical findings. Elevated TnI levels indicate myocardial damage, but are not specific for ischemic heart disease. Elevated TnI levels are seen in patients with other cardiac conditions (including myocarditis and congestive heartfailure), and slight TnI elevations occur in patients with other conditions, including sepsis, renalfailure, acidosis, acute neurological disease, and persistent tachyarrhythmia.B-TYPE NATRIURETIC FACTOR ( BNP)2016-12-25 19:31:00 Test Item Value Reference Range Comments B-TYPE NATRIURETIC PEPTIDE (BEAKER) (test uiqa=581) 90 pg/mL 0-100 LIPID [id number] 19:24:00 Test Item Value Reference Range Comments TRIGLYCERIDES (BEAKER) (test mmfo=946) 83 mg/dL CHOLESTEROL (BEAKER) (test kphi=706) 198 mg/dL HDL CHOLESTEROL (BEAKER) (test gmdt=254) 54 mg/dL LDL CHOLESTEROL CALCULATED (BEAKER) (test 127 mg/dL jbdw=762) Triglyceride Reference Range: Low Risk <150 Borderline 150- 199 High Risk 200-499 Very High Risk >=500Cholesterol Reference Range: Low Risk <200 Borderline 200-239 High Risk > 240HDL Cholesterol Reference Range: Low Risk >=60 High Risk <40LDL Cholesterol Reference Range: Optimal <100 Near Optimal 100-129 Borderline 130-159 High 160-189 Very High >=190BASIC METABOLIC [id number] 19:24:00 Test Item Value Reference Range Comments SODIUM (BEAKER) (test 133 meq/L 136-145 elbw=472) POTASSIUM (BEAKER) (test 3.7 meq/L 3.5-5.1 ekqh=839) CHLORIDE (BEAKER) (test 90 meq/L 98-107 ygsw=143) CO2 (BEAKER) (test 31 meq/L 22-29 prqw=782) BLOOD UREA NITROGEN 25 mg/dL 7-21 (BEAKER) (test ktek=664) CREATININE (BEAKER) (test 0.83 mg/dL 0.57-1.25 xbss=227) GLUCOSE RANDOM (BEAKER) 126 mg/dL 70-105 (test vvjk=457) CALCIUM (BEAKER) (test 11.0 mg/dL 8.4-10.2 jztq=900) EGFR (BEAKER) (test 68 mL/min/1.73 sq m ESTIMATED GFR IS NOT iwgc=8029) ACCURATE CREATININE CLEARANCE IN PREDICTING GLOMERULAR FILTRATION RATE. ESTIMATED GFR IS NOT APPLICABLE FOR DIALYSIS PATIENTS. PROTHROMBIN [id number] 19:17:00 Test Item Value Reference Range Comments PROTIME (BEAKER) (test yxmu=373) 14.1 seconds 11.7-14.7 INR (BEAKER) (test qfyf=254) 1.1 <=5.9 RECOMMENDED COUMADIN/WARFARIN INR THERAPY RANGESSTANDARD DOSE: 2.0 - 3.0 Includes: PROPHYLAXIS forvenous thrombosis, systemic embolization; TREATMENT for venous thrombosis and/or pulmonary embolus.HIGH RISK: Target INR is 2.5-3.5 for patients with mechanical heart valves.[id number] 19:17:00 Test Item Value Reference Range Comments PARTIAL THROMBOPLASTIN TIME (BEAKER) (test 24.9 seconds 22.5-36.0 xnhs=291) URINALYSIS W/ [id number] 19:15:00 Test Item Value Reference Range Comments COLOR (BEAKER) (test izqp=489) Yellow CLARITY (BEAKER) (test gonb=517) Clear SPECIFIC GRAVITY UA (BEAKER) (test afvb=043) 1.009 1.001-1.035 PH UA (BEAKER) (test bnhx=385) 7.0 5.0-8.0 PROTEIN UA (BEAKER) (test ydgs=391) Negative Negative GLUCOSE UA (BEAKER) (test ejvd=345) Negative Negative KETONES UA (BEAKER) (test ytxr=666) Negative Negative BILIRUBIN UA (BEAKER) (test lrfq=869) Negative Negative BLOOD UA (BEAKER) (test ftod=016) Negative Negative NITRITE UA (BEAKER) (test ofdi=892) Negative Negative LEUKOCYTE ESTERASE UA (BEAKER) (test bimu=848) Negative Negative UROBILINOGEN UA (BEAKER) (test mkay=084) 0.2 mg/dL 0.2-1.0 RBC UA (BEAKER) (test mnyb=128) < /HPF WBC UA (BEAKER) (test nxzm=023) 1 /HPF SQUAMOUS EPITHELIAL (BEAKER) (test yuvs=246) < /HPF SOURCE(BEAKER) (test pqit=2083) Urine, [place] POCT-GLUCOSE [id number] 18:33:00 Test Item Value Reference Range Comments POC-GLUCOSE METER (BEAKER) 75 mg/dL 70-110 TESTED AT [facility] [address] (test uetw=4794) [facility] [address]
--- NOTE | 2018-01-31 17:02 | RAD REPORT ---
EXAM DESCRIPTION: CT - Head C Spine Cap Wo Con - 01/31/2018 4:34 pm CLINICAL HISTORY: Trauma, head and neck injury. Chest, abdomen and pelvis pain. COMPARISON: 12/25/2016, 03/12/2015 TECHNIQUE: CT head without contrast. CT cervical spine without contrast with coronal and sagittal reformatted images. CT chest, abdomen and pelvis without contrast with coronal and sagittal reformatted images of the [facility] [place]. All CT scans are performed using dose optimization technique as appropriate and may include automated exposure control or mA/KV adjustment according to patient size. FINDINGS: CT HEAD WITHOUT CONTRAST: No intracranial hemorrhage, hydrocephalus or extra-axial fluid collection. No midline shift is seen. 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 The paranasal sinuses and mastoids are clear. The calvarium is intact. Small left frontal scalp hemat bertram. CT CERVICAL SPINE WITHOUT CONTRAST: No fracture or subluxation. Moderate lower cervical degenerative change, most prominent at C6-7. The prevertebral soft tissues are normal in thickness. CT CHEST, ABDOMEN, PELVIS WITHOUT CONTRAST: NOTE: Lack of contrast is a significant limitation in the assessment of trauma related findings. Spec ifically, solid organ, vascular and bowel evaluation is significantly limited. The lungs are clear.No pneumothorax or pericardial/pleural fluid. No evidence of intra-abdominal visceral injury, free fluid or free air is seen within the above detai led limitations. No concerning pelvic findings. No fractures. IMPRESSION: Negative for acute traumatic findings within the above detailed limitations.
[2018-01-31 17:32] LABS: Absolute Lymphocytes (CBC) 2.2 K/uL (0.7-4.9); Absolute Monocytes 0.8 K/uL (0.1-1.3); Absolute Neutrophil 6.8 K/uL (1.8-8.0); Basophils % 0.6 % (0-1.3); Hematocrit 38.2 % (36.0-45.0); MCH 32.7 pg (27.0-35.0); MCV 94.7 fL (80-100); MPV 7.7 fL (7.6-11.3); Monocytes % 8.1 % (3.3-12.3); RBC Red Blood Cell Count 4.03 M/uL (3.86-4.86)
[2018-01-31] MEDS ORDERED: ACETAMINOPHEN 500 MG TAB ONE (17:36)
[2018-01-31 17:42] LABS: Potassium 3.8 mEq/L (3.6-5.0)
--- NOTE | 2018-01-31 17:58 | EKG ---
Test Date: 2018-01-31 Test Time: 16:41:55 Police Inspector: MARGARETTE MEASUREMENT RESULTS: Intervals: Rate: 101 CA: QRSD: 100 QT: 362 QTc: 469 [place]: P: CA: QRS: 57 T: 86 INTERPRETIVE STATEMENTS: Atrial fibrillation with rapid ventricular response Inferior-posterior infarct, age undetermined Abnormal ECG Compared to ECG 03/07/2017 11:50:57 Ventricular premature complex(es) no longer present Myocardial infarct finding still present Electronically Signed On 01-31-18 17:57:29 CDT by Zay Marshall
--- NOTE | 2018-01-31 18:20 | EDPHYS ---
Physician Documentation [facility] Name: Rocio Quiroz Age: 73 yrs Sex: Female : 1945 Arrival Date: 01/31/2018 Time: 16:07 Bed 4 Private MD: ED Physician Gordo Alexandra HPI: 01/31 16:10 This 73 yrs old Female presents to ER via Unassigned with complaints of Fall cp Injury. 16:10 Details of fall: The patient fell from seated position, off the edge of a bed, and cp struck a tile surface. Onset: The symptoms/episode began/occurred just prior to arrival. Associated injuries: The patient sustained injury to the head, contusion, hematoma. 16:10 Severity of symptoms: in the emergency department the symptoms are unchanged. cp Historical: - Allergies: 16:28 Aspirin; kr2 16:28 Haldol; kr2 16:28 Latex, Natural Rubber; kr2 16:28 Iodine; kr2 16:28 PENICILLINS; kr2 16:28 Morphine; kr2 - Home Meds: 16:28 Bactrim DS 800-160 mg Oral tab 1 tab 2 times per day for UTI [Active]; oxazepam 10 mg kr2 Oral cap 1 cap EVERY 6 HOURS NEEDED FOR ANXIETY [Active]; 02/01 00:25 tramadol 50 mg Oral tab 1 tab every 12 hours as needed for insomnia [Active]; Lasix 40 bp mg Oral tab 1 tab once daily for Peripheral Edema due to Chronic Heart Failure [Active]; cyanocobalamin (vitamin B-12) Oral 1 rodriguez daily [Active]; clopidogrel 75 mg Oral tab 1 tab once daily [Active]; FeroSul 220 mg (44 mg iron)/5 mL Oral soln 7.5 mL daily [Active]; ergocalciferol (vitamin D2) 50,000 unit Oral cap 1 cap once wkly for on Monday [Active]; rafael packet Give 1 packet by mouth two times a day, give thickened [Active]; ipratropium bromide 0.02 % inhalation soln 1.25 mL every 6 hours [Active]; nystatin 100,000 unit/gram Topical powd apply to body folds once per shift [Active]; Murray 5-325 mg Oral tab 1 tab every 6 hours as needed for pain [Active]; oxazepam 30 mg Oral cap 1 cap every 6 hours as needed for Anxiety [Active]; ciprodex 0.3- 0.1 % 1 drop to the left ear TID [Active]; magnesium oxide 400 mg Oral cap 2 tabs daily for for 14 days. End date 03/15/17 [Active]; melatonin 3 mg Oral tab nightly [Active]; atorvastatin 80 mg Oral tab 1 tab once daily [Active]; caffeine 100 mg Oral every 6 hours as needed for headache [Active]; calcitonin solution 1 spray in each nostril for hypocalcemia [Active]; carvedilol 25 mg Oral tab 2 times per day for Hypertension [Active]; metolazone 5 mg Oral tab Once daily every Monday, Monday, and Monday for edema in bilateral lower legs [Active]; montelukast 10 mg Oral tab 1 tab once daily [Active]; potassium chloride 20 mEq Oral TbTQ 1 tab once daily for for one week. End date 03/08/17 [Active]; prednisone 2.5 mg Oral tab once daily [Active]; Prilosec 20 mg Oral cpDR 1 cap 2 times per day for Gastroesophageal reflux [Active]; Senna with Docusate Sodium 8.6-50 mg Oral tab 1 tabs twice a day [Active]; - PMHx: 01/31 16:28 Anemia; Anxiety; Atrial Fib; CHF; CVA; DYSPHAGIA; GERD; Hyperlipidemia; Hypertension; kr2 hypocalcemia; Sleep Apnea; Depression; - Immunization history:: Adult Immunizations unknown. - Immunization history: Last tetanus immunization: unknown. - Social history:: Smoking status: Patient/guardian denies using tobacco. ROS: 16:15 Constitutional: Negative for body aches, chills, fever, poor PO intake. cp 16:15 Eyes: Negative for injury, pain, redness, and discharge. cp 16:15 ENT: Negative for drainage from ear(s), ear pain, sore throat, difficulty swallowing, difficulty handling secretions. 16:15 Cardiovascular: Negative for chest pain, edema, palpitations. 16:15 Respiratory: Negative for cough, shortness of breath, wheezing. 16:15 Abdomen/GI: Negative for abdominal pain, nausea, vomiting, and diarrhea, black/tarry stool, rectal bleeding. 16:15 Back: Positive for pain at rest. 16:15 : Negative for vaginal bleeding, vaginal discharge. 16:15 Skin: Negative for cellulitis, rash. 16:15 Neuro: Positive for headache, Negative for altered mental status, loss of consciousness, syncope, near syncope. 16:15 All other systems are negative. Exam: 16:25 Constitutional: The patient appears in no acute distress, alert, awake, cp non-diaphoretic, non-toxic, well developed, well nourished. 16:25 Head/face: Noted is contusion, that is superficial, of the forehead, ecchymosis, that cp is mild, of the forehead, hematoma, that is mild, of the forehead. 16:25 Eyes: Periorbital structures: appear normal, Pupils: equal, round, and reactive to light and accomodation, Extraocular movements: intact throughout, Conjunctiva: normal, no exudate, no injection, Sclera: no appreciated abnormality, Lids and lashes: appear normal, bilaterally. 16:25 ENT: External ear(s): are unremarkable, Ear canal(s): are normal, clear, TM's: dullness, bilaterally, Nose: is normal, Mouth: Lips: moist, Oral mucosa: moist, Posterior pharynx: is normal, airway is patent, no erythema, no exudate. 16:25 Neck: C-spine: Back board [employer] C-collar placed in ED, ROM/movement: is normal, is supple, without pain, no range of motions limitations, no nuchal rigidity. 16:25 Chest/axilla: Inspection: normal, Palpation: is normal, no crepitus, no tenderness. 16:25 Cardiovascular: Rate: normal, Rhythm: irregularly irregular, Pulses: Pulses are 2+ in right radial artery and left radial artery. JVD: is not appreciated. 16:25 Respiratory: the patient does not display signs of respiratory distress, Respirations: normal, no use of accessory muscles, no retractions, no splinting, no tachypnea, labored breathing, is not present, Breath sounds: are clear throughout, no decreased breath sounds, no stridor, no wheezing. 16:25 Abdomen/GI: Inspection: obese Bowel sounds: active, all quadrants, Palpation: abdomen is soft and non-tender, in all quadrants. 16:25 Back: pain, that is mild. 16:25 Skin: cellulitis, is not appreciated, no rash present. 16:25 Neuro: Orientation: to person, place \T\ time. Mentation: lucid, able to follow commands, noted left side weakness from previous CVA. 16:25 Musculoskeletal/extremity: Joints: All joints are normal except the left wrist cp displays painful range of motion. 16:45 ECG was reviewed by the Attending Physician. cp Vital Signs: 16:10 BP 105 / 63; Pulse 92; Resp 16; Temp 98.2(O); Pulse Ox 96% on R/A; Pain 7/10; kr2 17:30 BP 108 / 78; Pulse 89; Resp 16; Pulse Ox 100% ; kr2 18:30 BP 110 / 70; Pulse 75; Resp 18; Pulse Ox 96% on R/A; kr2 19:29 BP 112 / 62; Pulse 94; Resp 16; Pulse Ox 100% on R/A; mt 21:55 BP 121 / 81; Pulse 89; Resp 16; Pulse Ox 98% on R/A; mt 23:00 BP 130 / 90; Pulse 75; Resp 27; Pulse Ox 98% ; bp 0503 00:29 BP 140 / 77; Pulse 71; Resp 23; Pulse Ox 96% ; bp 00:43 BP 143 / 75; Pulse 73; Resp 18; Pulse Ox 99% on R/A; mt Amy Coma Score: 01/31 16:20 Eye Response: spontaneous(4). Verbal Response: oriented(5). Motor Response: obeys kr2 commands(6). Total: 15. Trauma Score (Adult): 16:20 Eye Response: spontaneous(1); Verbal Response: oriented(1); Motor Response: obeys kr2 commands(2); Systolic BP: > 89 mm Hg(4); Respiratory Rate: 10 to 29 per min(4); [place] Score: 15; Trauma Score: 12 MDM: 16:20 Patient medically screened. cp 22:33 Data reviewed: vital signs, nurses notes, lab test result(s), EKG, radiologic studies, cp CT scan, plain films. 22:33 Test interpretation: by ED physician or midlevel provider: ECG, plain radiologic cp studies. 01/31 16:13 Order name: Basic Metabolic Panel; Complete Time: 17:44 cp 01/31 17:44 Interpretation: Normal except: NA 132; CL 99; CRE 1.07; GFR 50. cp 01/31 16:13 Order name: CBC with Diff; Complete Time: 17:44 cp / 17:44 Interpretation: Normal except: PLT 116. cp / 18:54 Order name: Blood Culture Adult (2) cp 01/31 18:54 Order name: Urine Microscopic Only; Complete Time: 22:33 cp / 22:34 Interpretation: Normal except: UWBC 5-10; UBACT 20-50; SQEPI 5-10. cp 01/31 16:13 Order name: CT Traumagram (Head C Spine CAP wo con); Complete Time: 17:06 cp / 17:06 Interpretation: Report reviewed. cp 01/31 18:54 Order name: AMMONIA cp 01/31 18:54 Order name: Procalcitonin cp 01/31 18:54 Order name: Lactate; Complete Time: 22:23 cp 01/31 19:05 Order name: UDS; Complete Time: 22:14 cp 01/31 22:14 Interpretation: Normal except: BZO POSITIVE; OPI POSITIVE. cp 01/31 19:05 Order name: Troponin I; Complete Time: 22:33 cp 01/31 19:34 Order name: ABG; Complete Time: 22:14 rg2 / 22:24 Interpretation: Normal except: ABGPO2 143.0; ABGSO2 99.0. cp / 22:29 Order name: Urine Culture EDSD / 16:13 Order name: Labs collected and sent; Complete Time: 17:34 cp 01/31 16:14 Order name: C-Collar; Complete Time: 16:18 cp / 16:14 Order name: EKG; Complete Time: 16:16 cp / 16:14 Order name: EKG - Nurse/Tech; Complete Time: 17:35 cp / 17:26 Order name: XRAY Wrist LEFT 3 view; Complete Time: 18:36 cp / 18:13 Order name: Splint: radial gutter type; Complete Time: 19:28 cp /02 18:48 Order name: CT Head Brain wo Cont; Complete Time: 19:51 cp / 19:51 Interpretation: Report reviewed. cp 01/31 18:54 Order name: XRAY Chest (1 view); Complete Time: 19:51 cp 01/31 18:54 Order name: Thapa; Complete Time: 21:14 cp 01/31 19:05 Order name: IV; Complete Time: 20:34 cp 01/31 19:05 Order name: Cardiac monitoring; Complete Time: 19:28 cp 01/31 19:48 Order name: Blood Glucose Level; Complete Time: 19:48 kr2 EC:45 Rate is 101 beats/min. Rhythm is irregularly irregular. QRS interval is normal. QT cp interval is normal. No ST changes noted. Clinical impression: Atrial Fibrillation. Interpreted by me. Reviewed by me. Administered Medications: 17:40 Drug: Tylenol 1000 mg Route: PO; kr2 20:34 Follow up: Response: Pain is decreased bp 21:57 Drug: NS 0.9% 1000 ml Route: IV; Rate: 75 ml/hr; Site: right hand; bp 02/01 00:51 Follow up: IV Status: Infusion continued upon admission bp 01/31 21:58 Drug: NS 0.9% 250 ml Route: IV; Rate: bolus; Site: right hand; bp 22:36 Follow up: IV Status: Completed infusion bp 22:52 Drug: Rocephin - (cefTRIAXone) 1 grams Route: IVPB; Infused Over: 30 mins; Site: right bp hand; 22:52 Follow up: IV Status: Completed infusion bp Point of Care Testing: Blood Glucose: 18:50 Blood Glucose: 105 mg/dL; kr2 Ranges: Critical Glucose Levels:Adult <50 mg/dl or >400 mg/dl <40 mg/dl or >180 mg/dl Disposition: 22:53 Chart complete. Disposition: 01/31/18 22:33 Hospitalization ordered by Reyna Arshad for Observation. Preliminary diagnosis are Contusion of unspecified part of head - Forehead, Fall from bed, Displaced fracture of neck of other metacarpal bone - Left Second. - Bed requested for Telemetry/MedSurg (observation). - Status is Observation. bp - Condition is Stable. - Problem is new. - Symptoms have improved. UTI on Admission? Yes Addendum: 02/02/2018 07:02 Co-signature as Attending Physician, Gordo Alexandra MD I agree with the assessment and w a plan of care. Signatures: Dispatcher [employer] Sarah Snyder RN RN kl Page, Corey, PA PA cp Appiah, William, MD MD il Bi, Wayne, RN RN bp Nemo Li, RN RN kr2 Corrections: (The following items were deleted from the chart) 01/31 17:26 16:16 Creatinine for Radiology+C.LAB.BRZ ordered. [facility] 17:37 16:16 TYPE AND SCREEN+BB.LAB.BRZ ordered. [facility] 19:04 18:18 01/31/2018 18:18 Discharged to Home. Impression: Contusion of unspecified part of cp head - Forehead; Displaced fracture of neck of other metacarpal bone - Left Second; Fall from bed. Condition is Stable. Forms are Medication Reconciliation Form, Thank You Letter, Antibiotic Education, Prescription Opioid Use. Follow up: Marvin Fonseca; When: 2 - 3 days; Reason: left second metacarpal fracture. Follow up: Private Physician; When: 1 - 2 days; Reason: head contusion. Problem is new. Symptoms have improved. cp 22:35 22:33 Hospitalization Ordered by Reyna Arshad MD for Observation. Preliminary cp diagnosis is Contusion of unspecified part of head - Forehead; Fall from bed; Displaced fracture of neck of other metacarpal bone - Left Second. Bed requested for Telemetry/MedSurg (observation). Status is Observation. Condition is Stable. Problem is new. Symptoms have improved. UTI on Admission? No. cp 02/01 00:08 01/31 22:35 01/31/2018 22:33 Hospitalization Ordered by Reyna Arshad MD for kl Observation. Preliminary diagnosis is Contusion of unspecified part of head - Forehead; Fall from bed; Displaced fracture of neck of other metacarpal bone - Left Second. Bed requested for Telemetry/MedSurg (observation). Status is Observation. Condition is Stable. Problem is new. Symptoms have improved. UTI on Admission? Yes. cp 02/01 01:05 00:08 01/31/2018 22:33 Hospitalization Ordered by Reyna Arshad MD for Observation. bp Preliminary diagnosis is Contusion of unspecified part of head - Forehead; Fall from bed; Displaced fracture of neck of other metacarpal bone - Left Second. Bed requested for Telemetry/MedSurg (observation). Status is Observation. Condition is Stable. Problem is new. Symptoms have improved. UTI on Admission? Yes. kl
--- NOTE | 2018-01-31 18:20 | ER ---
Nurse's Notes [facility] Name: Rocio Quiroz Age: 73 yrs Sex: Female : 1945 Arrival Date: 01/31/2018 Time: 16:07 Bed 4 Private MD: Diagnosis: Contusion of unspecified part of head-Forehead;Fall from bed;Displaced fracture of neck of other metacarpal bone-Left Second Presentation: 01/31 16:12 Presenting complaint: EMS states: patient fell from bed to floor. She has contusion to kr2 left side of forehead. Complains of pain to head, center of back, left arm and left leg. She did not lose consciousness. She does take Plavix. Care prior to arrival: Placed on backboard. Mechanism of Injury: Fall out of bed. Trauma event details: Injury occurred in the [facility], Injury occurred: [facility] facility Injury occurred: January 31, 2018. 16:12 Acuity: LINDSEY 3 kr2 16:12 Method Of Arrival: EMS: [facility] kr2 16:23 Transition of care: patient was received from another setting of care (rehabilitation kr2 facility). Onset of symptoms was January 31, 2018. Initial Sepsis Screen: Does the patient meet any 2 criteria? No. Patient's initial sepsis screen is negative. Does the patient have a suspected source of infection? No. Patient's initial sepsis screen is negative. Triage Assessment: 16:10 General: Appears in no apparent distress. uncomfortable, well groomed, well developed, kr2 well nourished, Behavior is calm, cooperative. Pain: Complains of pain in head, center of back, left arm, left leg Pain does not radiate. Pain currently is 7 out of 10 on a pain scale. Quality of pain is described as aching, Pain began 30 min ago. Is continuous, Alleviated by nothing. Aggravated by increased activity, repositioning. Trauma Activation: Alert Physician: ED Physician; Name: ELEANOR Acosta; Notified At: 16:05; Arrived At: Physician: General Surgeon; Name: ; Notified At: 16:05; Arrived At: Physician: Radiology; Name: ; Notified At: 16:05; Arrived At: Physician: Respiratory; Name: ; Notified At: 16:05; Arrived At: Physician: Patricia; Name: ; Notified At: 16:05; Arrived At: Historical: - Allergies: 16:28 Aspirin; kr2 16:28 Haldol; kr2 16:28 Latex, Natural Rubber; kr2 16:28 Iodine; kr2 16:28 PENICILLINS; kr2 16:28 Morphine; kr2 - Home Meds: 16:28 Bactrim DS 800-160 mg Oral tab 1 tab 2 times per day for UTI [Active]; oxazepam 10 mg kr2 Oral cap 1 cap EVERY 6 HOURS NEEDED FOR ANXIETY [Active]; 02/01 00:25 tramadol 50 mg Oral tab 1 tab every 12 hours as needed for insomnia [Active]; Lasix 40 bp mg Oral tab 1 tab once daily for Peripheral Edema due to Chronic Heart Failure [Active]; cyanocobalamin (vitamin B-12) Oral 1 rodriguez daily [Active]; clopidogrel 75 mg Oral tab 1 tab once daily [Active]; FeroSul 220 mg (44 mg iron)/5 mL Oral soln 7.5 mL daily [Active]; ergocalciferol (vitamin D2) 50,000 unit Oral cap 1 cap once wkly for on Monday [Active]; rafael packet Give 1 packet by mouth two times a day, give thickened [Active]; ipratropium bromide 0.02 % inhalation soln 1.25 mL every 6 hours [Active]; nystatin 100,000 unit/gram Topical powd apply to body folds once per shift [Active]; Golden 5-325 mg Oral tab 1 tab every 6 hours as needed for pain [Active]; oxazepam 30 mg Oral cap 1 cap every 6 hours as needed for Anxiety [Active]; ciprodex 0.3- 0.1 % 1 drop to the left ear TID [Active]; magnesium oxide 400 mg Oral cap 2 tabs daily for for 14 days. End date 03/15/17 [Active]; melatonin 3 mg Oral tab nightly [Active]; atorvastatin 80 mg Oral tab 1 tab once daily [Active]; caffeine 100 mg Oral every 6 hours as needed for headache [Active]; calcitonin solution 1 spray in each nostril for hypocalcemia [Active]; carvedilol 25 mg Oral tab 2 times per day for Hypertension [Active]; metolazone 5 mg Oral tab Once daily every Monday, Monday, and Monday for edema in bilateral lower legs [Active]; montelukast 10 mg Oral tab 1 tab once daily [Active]; potassium chloride 20 mEq Oral TbTQ 1 tab once daily for for one week. End date 03/08/17 [Active]; prednisone 2.5 mg Oral tab once daily [Active]; Prilosec 20 mg Oral cpDR 1 cap 2 times per day for Gastroesophageal reflux [Active]; Senna with Docusate Sodium 8.6-50 mg Oral tab 1 tabs twice a day [Active]; - PMHx: 01/31 16:28 Anemia; Anxiety; Atrial Fib; CHF; CVA; DYSPHAGIA; GERD; Hyperlipidemia; Hypertension; kr2 hypocalcemia; Sleep Apnea; Depression; - Immunization history:: Adult Immunizations unknown. - Immunization history: Last tetanus immunization: unknown. - Social history:: Smoking status: Patient/guardian denies using tobacco. Screenin:20 Abuse screen: Denies threats or abuse. Denies injuries from another. Nutritional kr2 screening: No deficits noted. Tuberculosis screening: No symptoms or risk factors identified. Fall Risk Fall in past 12 months (25 points). Primary Survey: 16:10 A: Airway: patent. Breathing/Chest: Respiratory pattern: regular, Respiratory effort: kr2 spontaneous, unlabored, Breath sounds: clear, bilaterally. Chest inspection: symmetrical rise and fall of the chest. Circulation: Cardiac rhythm: sinus rhythm Skin color: pink, Skin temperature: warm, dry. Disability Alert. 16:45 Reassessment Breathing/Chest Respiratory pattern Regular Respiratory effort Spontaneous kr2 Unlabored Breath sounds Clear Chest inspection Symmetrical. Assessment: 16:07 Reassessment: Provider examining patient at this time. kr2 16:15 General: Appears in no apparent distress. comfortable, well groomed, well developed, kr2 well nourished, Behavior is calm, cooperative, appropriate for age. Pain: Complains of pain in see triage assessment. Neuro: Level of Consciousness is awake, alert, obeys commands, Oriented to person, place, time, situation, Appropriate for age. Cardiovascular: Capillary refill < 3 seconds in bilateral fingers Patient's skin is warm and dry. Respiratory: Airway is patent Respiratory effort is even, unlabored, Respiratory pattern is regular, symmetrical. GI: Abdomen is flat, non-distended. : Reports she is currently being treated with antibiotics for UTI. EENT: Oral mucosa is moist. Derm: Skin is intact, is fragile, with poor turgor Skin is pink, warm \T\ dry. Bruising that is dark purple, on left wrist and forehead. Musculoskeletal: Circulation, motion, and sensation intact. knot with bruising to left side of forehead. 16:45 Reassessment: Patient appears in no apparent distress at this time. Patient and/or kr2 family updated on plan of care and expected duration. Pain level reassessed. Patient is alert, oriented x 3, equal unlabored respirations, skin warm/dry/pink. Patient with poor vascular access. Lab notified to come draw labs. Patient states feeling better. 17:30 Reassessment: Patient appears in no apparent distress at this time. Patient and/or kr2 family updated on plan of care and expected duration. Pain level reassessed. Patient is alert, oriented x 3, equal unlabored respirations, skin warm/dry/pink. Patient states feeling better. 18:50 Reassessment: Patient very drowsy, difficulty to arouse but responds appropriately to kr2 questions. Provider notified of changes. Dr. Alexandra and ELEANOR Acosta in room to examine patient. Attempts to obtain IV access unsuccessful at this time. Oxygen applied \T\ 2 LPM via NC. Blood glucose 105. Patient taken to CT and then will be placed in Trauma bed 4. 19:05 Reassessment: PT TRANSFERRED FROM [facility], D/C CANCELLED. REPORT FROM CHAR BOLANOS. 73YO WF bp S/P FALL AT [facility], NOW WITH ACUTELY DECREASED LOC. PT SENT FOR STAT CT, H/O CVA, ON BLOOD THINNERS. PT CURRENTLY UNDER TREATMENT FOR UTI. 19:50 Reassessment: PT RETURNED FROM CT. UNABLE TO OBTAIN PIV VIA U/S, PROVIDER NOTIFIED. bp 20:15 Reassessment: EJ ACCESS ATTEMPTED BY PROVIDER, UNSUCCESSFUL. bp 20:35 Reassessment: PT DECLINING FURTHER ATTEMPTS FOR BLOOD SPECIMENS, PROVIDER NOTIFIED. bp 20:51 Reassessment: PHLEBOTOMY PAGED TO ATTEMPT TO OBTAIN BLOOD SPECIMENS, PROVIDER NOTIFIED bp OF DELAY. 21:20 Reassessment: PHLEBOTOMY ATTEMPT UNSUCCESSFUL, PROVIDER NOTIFIED OF CONTINUED INABILITY bp TO OBTAIN BLOOD SPECIMENS. 21:58 Reassessment: BLOOD SPECIMEN OBTAINED BY ATTENDING MD VIA R FEM STICK, SAMPLES TO LAB. bp 23:30 Reassessment: ADMIT MD AT B/S. bp Vital Signs: 16:10 BP 105 / 63; Pulse 92; Resp 16; Temp 98.2(O); Pulse Ox 96% on R/A; Pain 7/10; kr2 17:30 BP 108 / 78; Pulse 89; Resp 16; Pulse Ox 100% ; kr2 18:30 BP 110 / 70; Pulse 75; Resp 18; Pulse Ox 96% on R/A; kr2 19:29 BP 112 / 62; Pulse 94; Resp 16; Pulse Ox 100% on R/A; mt 21:55 BP 121 / 81; Pulse 89; Resp 16; Pulse Ox 98% on R/A; mt 23:00 BP 130 / 90; Pulse 75; Resp 27; Pulse Ox 98% ; bp 05/03 00:29 BP 140 / 77; Pulse 71; Resp 23; Pulse Ox 96% ; bp 00:43 BP 143 / 75; Pulse 73; Resp 18; Pulse Ox 99% on R/A; mt Amy Coma Score: 0502 16:20 Eye Response: spontaneous(4). Verbal Response: oriented(5). Motor Response: obeys kr2 commands(6). Total: 15. Trauma Score (Adult): 16:20 Eye Response: spontaneous(1); Verbal Response: oriented(1); Motor Response: obeys kr2 commands(2); Systolic BP: > 89 mm Hg(4); Respiratory Rate: 10 to 29 per min(4); Amy Score: 15; Trauma Score: 12 ED Course: 16:07 Patient arrived in ED. kr2 16:10 Tayo Mitchell PA is PHCP. cp 16:10 Gordo Alexandra MD is Attending Physician. cp 16:15 Arm band placed on. kr2 16:15 Patient has correct armband on for positive identification. Bed in low position. Call kr2 light in reach. Side rails up X2. hog sawyer on. Pulse ox on. NIBP on. Door closed. Warm blanket given. 16:15 C collar applied. Thermoregulation: warm blanket given to patient. kr2 16:17 Triage completed. kr2 16:24 Patient maintains SpO2 saturation greater than 95% on room air. kr2 16:[address] via stretcher. nj 16:30 Missed attempt(s): 24 gauge in right forearm. Bleeding controlled, band aid applied, kr2 catheter tip intact. 16:33 CT completed. Patient tolerated procedure well. Patient moved back from CT. nj 16:35 CT Traumagram (Head C Spine CAP wo con) In Process Unspecified. EDMS 16:35 Missed attempt(s): 24 gauge in right antecubital area. Bleeding controlled, band aid kr2 applied, catheter tip intact. 16:58 EKG done, by medical office technology instructor. reviewed by Tayo WEBSTER. at1 17:34 Nemo Li, RN is Primary Nurse. kr2 17:53 X-ray completed. Portable x-ray completed in exam room. Patient tolerated procedure ml well. 17:54 XRAY Wrist LEFT 3 view In Process Unspecified. EDMS 18:15 Marvin Fonseca MD is Referral Physician. cp 19:09 CT Head Brain wo Cont In Process Unspecified. EDMS 19:09 Primary Nurse role handed off by Nemo Li, RN bp 19:09 Wayne Pat, CICI is Primary Nurse. bp 19:16 X-ray completed. Portable x-ray completed in exam room. Patient tolerated procedure kc2 well. 19:16 XRAY Chest (1 view) In Process Unspecified. EDMS 20:36 Inserted saline lock: 24 gauge in right hand, using aseptic technique. bp 21:12 Thapa cath inserted, using sterile technique, 18 Fr., by cake inspector, balloon inflated, to tl2 gravity drainage, urine specimen collected. 22:32 Reyna Arshad MD is Hospitalizing Provider. cp 02/01 00:21 No provider procedures requiring assistance completed. Patient admitted, IV remains in bp place. Administered Medications: 01/31 17:40 Drug: Tylenol 1000 mg Route: PO; kr2 20:34 Follow up: Response: Pain is decreased bp 21:57 Drug: NS 0.9% 1000 ml Route: IV; Rate: 75 ml/hr; Site: right hand; bp 02/01 00:51 Follow up: IV Status: Infusion continued upon admission bp 01/31 21:58 Drug: NS 0.9% 250 ml Route: IV; Rate: bolus; Site: right hand; bp 22:36 Follow up: IV Status: Completed infusion bp 22:52 Drug: Rocephin - (cefTRIAXone) 1 grams Route: IVPB; Infused Over: 30 mins; Site: right bp hand; 22:52 Follow up: IV Status: Completed infusion bp Point of Care Testing: Blood Glucose: 18:50 Blood Glucose: 105 mg/dL; kr2 Ranges: Intake: 19:14 PO: 0ml; Total: 0ml. kr2 Outcome: 18:18 Discharge ordered by MD. cp 22:33 Decision to Hospitalize by Provider. cp 02/01 00:26 Condition: stable bp Instructed on the need for admit. 00:27 Patient's length of stay in the Emergency Department was greater than 2 hours. bp Patient's length of stay was extended due to staffing issues within the emergency department. 00:50 Admitted to Tele accompanied by tech, via stretcher, room 415, with chart, Report bp called to TOMMY BOLANOS 01:05 Patient left the ED. bp Signatures: Dispatcher [employer] EDMS Erin Rob Amanda, customer experience professional EKG Tat1 Tayo Mitchell PA PA cp Carr, Kelsie kc2 Irais Huang, RN RN tl2 [facility] Wayne Pat RN RN bp Nemo Li RN RN kr2 Corrections: (The following items were deleted from the chart) 01/31 19:12 16:10 BP 105 / 63; Pulse 92bpm; Resp 16bpm; Pulse Ox 96% RA; Pain 7/10; kr2 kr2 19:41 16:15 Derm: Skin is intact, is fragile, with poor turgor Skin is pink, warm \T\ dry. kr2 kr2 19:41 16:15 Musculoskeletal: Circulation, motion, and sensation intact. kr2 kr2 19:45 17:30 Reassessment: Patient appears in no apparent distress at this time. Patient kr2 and/or family updated on plan of care and expected duration. Pain level reassessed. Patient is alert, oriented x 3, equal unlabored respirations, skin warm/dry/pink. Patient states feeling better. kr2
--- NOTE | 2018-01-31 18:29 | RAD REPORT ---
EXAM DESCRIPTION: RAD - Wrist Left 3 View - 01/31/2018 5:54 pm CLINICAL HISTORY: Left wrist pain status post injury FINDINGS: Mildly displaced fracture involves the second metacarpal neck. The bones are osteoporotic The lunate is tilted dorsally which may indicate dorsal intercalated segmental instability
--- NOTE | 2018-01-31 19:22 | RAD REPORT ---
EXAM DESCRIPTION: CT - Head Brain Wo Cont - 01/31/2018 7:09 pm CLINICAL HISTORY: Alteration of consciousness/ COMPARISON: January 31, [address] TECHNIQUE: Computed axial tomography of the head was obtained. IV contrast was not requested. All CT scans are performed using dose optimization technique as appropriate and may include automated exposure control or mA/KV adjustment according to patient size. FINDINGS: An intracranial bleed is not seen . The ventricles are normal in caliber. No extra-axial fluid collection is noted. Moderate cystic encephalomalacia within the right cerebrum is unchanged compatible with an old infarct. . Fluid within the sinuses/ mastoids is not seen. IMPRESSION: No acute intracranial abnormality is seen. If patient's symptoms persist MRI of the bra in would be recommended.
--- NOTE | 2018-01-31 19:43 | RAD REPORT ---
EXAM DESCRIPTION: Jewell Single View01/31/2018 7:24 pm CLINICAL HISTORY: Chest pain COMPARISON: March 2017 FINDINGS: The lungs appear clear of acute infiltrate. The heart is normal size IMPRESSION: No acute abnormalities displayed
[2018-01-31 20:03] LABS: Arterial Blood Carboxyhemoglob 1.3 % (0-1.5); Blood Gas Oxyhemoglobin 96.7 % (94-97)
[2018-01-31] MEDS ORDERED: NA CHLORIDE 0.9% 500 ML ONE (21:25)
[2018-01-31] MEDS ORDERED: NA CHLORIDE 0.9% 250 ML ONE (21:25)
[2018-01-31 21:42] LABS: Barbiturates NEGATIVE; Benzodiazepines POSITIVE; Cocaine NEGATIVE; METHAMPHETAM NEGATIVE; Opiates POSITIVE; Phencyclidine NEGATIVE; THC Cannibis NEGATIVE
[2018-01-31 22:27] LABS: Urine Bacteria 20-50 /HPF (<20); Urine RBC <5 /HPF (NONE SEEN)
[2018-01-31 22:28] LABS: Urine Culture Reflex Order REFLEXED
[2018-01-31] MEDS ORDERED: CEFTRIAXONE/SWI 1gm 1 GM/10 ML SYR ONE (22:46)
[2018-02-01] MEDS ORDERED: ONDANSETRON 4 MG/2 ML VIAL IV PRN (00:58)
[2018-02-01] MEDS: TRAMADOL HCL 50 MG TAB PO SCH ×4 (02:00→20:31)
[2018-02-01] MEDS: NA CHLORIDE 0.9% 1,000 ML IV SCH ×3 (02:00→20:44)
[2018-02-01 02:54] VITALS: BMI 40.6
--- NOTE | 2018-02-01 04:56 | P.HP ---
Certification for Inpatient Patient admitted to: Observation With expected LOS: <2 Midnights Practitioner: I am a practitioner with admitting privileges, knowledge of patient current condition, hospital course, and medical plan of care. Services: Services provided to patient in accordance with Admission requirements found in Title 42 Section 412.3 of the Code of Federal Regulations Patient History Date of Service: 01/31/18 Reason for admission: AMS History of Present Illness: Ms Quiroz is a 73 years old woman resident from a local [place] [facility], with history of A.Fib, COPD, KEVIN, HTN, who came to ED after sustained a fall to the ground while she was in bed. She hit her head, having a left forehead laceration. There was o history of fever or chills. CT head/cervical neck/chest/ abd/pelvis showed no acute abnormalities. However, left wrist XR was remarkable for second metacarpal fracture. While the patient was in ED about to be discharge back to SNF, she become unresponsive for about 10 minutes. She was only partially responded to noxious stimulus. During this episode, her BP was on the lower side, 80's/60's. She did not receive any medication while was in ED. Allergies aspirin Allergy (Verified 12/22/16 01:47) Unknown iodine Allergy (Verified 12/22/16 01:47) Hives/Rash latex Allergy (Verified 12/22/16 01:47) Hives/Rash Latex, Natural Rubber Allergy (Unverified 03/07/17 20:45) Unknown morphine Allergy (Verified 12/22/16 01:47) Hives Penicillins Allergy (Verified 12/22/16 01:47) Hives/Rash haloperidol [From Haldol] Adverse Reaction (Verified 12/22/16 01:47) anxiety haloperidol lactate [From Haldol] Adverse Reaction (Verified 12/22/16 01:47) anxiety Home Medications: Carvedilol [Coreg*] 25 mg PO BID 01/13/14 Duloxetine HCl [Cymbalta] 1 cap PO DAILY 01/13/14 Montelukast Sodium 10 mg PO BEDTIME 12/22/16 Oxazepam 30 mg PO QID PRN 12/22/16 Prednisone [Deltasone] 2.5 mg PO TID 12/22/16 Atorvastatin Calcium [Lipitor] 1 tab PO BEDTIME 02/01/18 Clopidogrel Bisulfate [Plavix] 75 mg PO DAILY 02/01/18 Cyanocobalamin (Vitamin B-12) [Vitamin B-12] 1,000 mcg PO DAILY 02/01/18 Furosemide 1 tab PO DAILY 02/01/18 Hydrocodone Bit/Acetaminophen [Hydrocodon-Acetaminophn 10-325] 1 tab PO Q6H PRN 02/01/18 Melatonin 3 mg PO BEDTIME 02/01/18 Pantoprazole Sodium 20 mg PO DAILY 02/01/18 Polyethylene Glycol 3350 [Miralax] 17 gm PO DAILY PRN 02/01/18 - Past Medical/Surgical History Diabetic: No -: Hypertension -: COPD -: CHF -: Atrial fibrillation -: Depression with anxiety -: Morbid obesity -: Obstructive sleep apnea -: Lymphedema -: Hysterectomy -: Appendectomy -: Right knee replacement -: Left knee replacement Psychosocial/ Personal History: She is of 55 years, has 2 children, she does not work. She gets around in a wheelchair. - Family History Family History: Reviewed- Non-Contributory - Social History Alcohol use: No CD- Drugs: No Caffeine use: Yes Place of Residence: Detention Review of Systems 10-point ROS is otherwise unremarkable Physical Examination - Vital Signs Temperature: 97.5 F Blood Pressure: 120/58 Pulse: 83 Respirations: 14 - Physical Exam General: Alert, In no apparent distress HEENT: PERRLA, Mucous membr. moist/pink, EOMI, Sclerae nonicteric Neck: Supple, 2+ carotid pulse no bruit, No LAD, Without JVD or thyroid abnormality Respiratory: Clear to auscultation bilaterally, Normal air movement Cardiovascular: Regular rate/rhythm, Normal S1 S2 Gastrointestinal: Normal bowel sounds, No tenderness Musculoskeletal: No tenderness Integumentary: No tenderness/swelling, Skin lesion (left forehead lasceration.) Neurological: Normal gait, Normal speech, Normal strength at 5/5 x4 extr, Normal tone, Normal affect Lymphatics: No axilla or inguinal lymphadenopathy - Studies Laboratory Data (last 24 hrs) 01/31/18 21:45: Troponin I 0.03 01/31/18 17:20: WBC 9.9, Hgb 13.2, Hct 38.2, Plt Count 116 L 01/31/18 17:20: Sodium 132 L, Potassium 3.8, BUN 15, Creatinine 1.07 H, Glucose 113 01/31/18 16:13: Creatinine Cancelled Assessment and Plan - Problems (Diagnosis) (1) Acute encephalopathy Current Visit: Yes Status: Acute (2) Metacarpal bone fracture Current Visit: Yes Status: Acute Qualifiers: Encounter type: initial encounter Metacarpal bone: second Fracture type: closed Metacarpal location: unspecified portion of metacarpal Fracture alignment: displaced Laterality: left Qualified Code(s): S62.301A - Unspecified fracture of second metacarpal bone, left hand, initial encounter for closed fracture (3) Atrial fibrillation Onset Date: 07/22/16 Current Visit: No Status: Chronic Qualifiers: Atrial fibrillation type: chronic Qualified Code(s): I48.2 - Chronic atrial fibrillation (4) COPD (chronic obstructive pulmonary disease) Onset Date: 07/22/16 Current Visit: No Status: Chronic Qualifiers: COPD type: chronic bronchitis Chronic bronchitis type: simple Qualified Code(s): J41.0 - Simple chronic bronchitis (5) Hypertension Onset Date: 07/22/16 Current Visit: No Status: Chronic Qualifiers: Hypertension type: essential hypertension Qualified Code(s): I10 - Essential (primary) hypertension (6) Obstructive sleep apnea Onset Date: 07/22/16 Current Visit: No Status: Chronic - Plan The patient will be admitted under observation due to acute encephalopathy. She already recovered and is about baseline. Will consult Neurology for evaluation and recommendations. Also consult ortho due to metacarpal fracture. - Advance Directives Does patient have a Living Will: No Does patient have a Durable POA for Healthcare: No - Code Status/Comfort Care Code Status Assessed: Yes Code Status: Full Code
[2018-02-01] MEDS: CARVEDILOL 6.25 MG TAB PO SCH ×2 (09:07→20:32)
[2018-02-01] MEDS: CLOPIDOGREL 75 MG TABLET PO SCH (09:07)
[2018-02-01] MEDS: ENOXAPARIN 40 MG/0.4 ML SQ SCH (09:08)
[2018-02-01] MEDS: ACETAMINOPHEN 500 MG TAB PO PRN ×2 (09:13→22:43)
--- NOTE | 2018-02-01 13:04 | RAD REPORT ---
EXAM DESCRIPTION: MRI - Brain Wo Cont - 02/01/2018 12:54 pm CLINICAL HISTORY: Transient alteration of awareness COMPARISON: CT study January 31 TECHNIQUE: Sagittal T1-weighted images were obtained along with axial PD, heavily T2-weighted and T2 -FLAIR images. Axial DWI and ADC mapping sequences were also obtained along with coronal heavily T2-w eighted images. FINDINGS: No intracranial hemorrhage, mass or acute infarction. There is no edema or shift of midlin e structures. Hypointense T1 and hyperintense T2 signal is present involving much of the right tempor al lobe, basal ganglia, insular cortex and deep periventricular white matter of the right frontal lob e. This is old encephalomalacia signal matching the CT study. No acute component identifiable. The gr ay matter/ white matter junction otherwise preserved. Ventricles are normal in size. Signal voids are seen as a normal finding in the major intracranial vessels. No globe or orbital content abnormality. Mastoid air cells and paranasal sinuses are clear. IMPRESSION: No hemorrhage, mass or acute infarction identifiable. No acute intracranial finding. Encephalomalacia of the right frontal lobe white matter, temporal lobe, basal ganglia and insular cor viktoriya from remote CVA.
--- NOTE | 2018-02-01 18:02 | P.PN ---
Subjective Date of Service: 02/01/18 Chief Complaint: AMS Subjective: Doing well (at baseline) Review of Systems 10-point ROS is otherwise unremarkable Physical Examination - Vital Signs Temperature: 97.2 F Blood Pressure: 120/76 Pulse: 86 Respirations: 16 Pulse Ox (%): 97 - Physical Exam General: Alert, In no apparent distress, Oriented x3 HEENT: Atraumatic, Normocephalic, PERRLA Neck: Supple, JVD not distended, No Thyromegaly, No LAD Respiratory: Clear to auscultation bilaterally, Normal air movement Cardiovascular: No edema, Normal pulses, Regular rate/rhythm, Normal S1 S2, No gallops, No rubs, No murmurs Gastrointestinal: Normal bowel sounds, Non-distended, W/out hepatosplenomegaly, No ascites, No tenderness, No masses, No rebound, No guarding Musculoskeletal: Other (left arm in splint) Neurological: Normal speech, Normal tone, Sensation intact - Studies Laboratory Data (last 24 hrs) 01/31/18 21:45: Troponin I 0.03 Assessment And Plan - Current Problems (Diagnosis) (1) Arm fracture, left Current Visit: Yes Status: Acute Plan: closed fracture s/p splint placement patient refusing any form of surgical treatment pain control (2) Acute encephalopathy Onset Date: 02/01/18 Current Visit: Yes Status: Acute Plan: resolved at baseline Neurology consulted, rec MRI and EEG will continue to monitor Discharge Plan: Other (SNF) Plan to discharge in: 24 Hours Physician Review: Patient Assessed, Agree with Above Assessment and Plan Time Spent Managing PTS Care (In Minutes): 25
[2018-02-01] MEDS ORDERED: ATORVASTATIN 80 MG TAB PO SCH (21:00)
[2018-02-01] MEDS ORDERED: LORAZEPAM 0.5 MG TABLET PO ONE (22:02)
--- NOTE | 2018-02-02 01:20 | CON ---
Reason For Consultation: Consultation called due to altered mental status. History Of Present Illness: Ms. 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 The patient an d her reported on the information. She just moved into [facility] after she came from doing a retirement with physical therapy when apparently less than 3 hours after arriving, she tried to turn in her bed and slid out of bed. The patient said that there were no bed rails and she slippe d onto her left side hitting the left forehead and fractured the neck of her left second metacarpal b one. The fracture is displaced. This is in the left arm. It is not clear that the patient had any confusion at any point. The patient said she was able to clearly understand what was happening and w hy she was being brought into the hospital because of the fracture and she was not confused. The hus band also at bedside said there are no reported episodes of confusion at all. She had just turned an d slipped out of bed. 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 It is unchanged compared to a study from 2017. Brain MRI stroke protocol also identifies the stroke to involve the right frontal lobe, t he temporal lobe on the right along with the right basal ganglia and right insular cortex. The strok e was remote. Past Medical History: As indicated above in addition to atrial fibrillation, chronic anemia, anxiety , dysphagia, gastroesophageal reflux disease, hypertension, dyslipidemia, hypocalcemia, sleep apnea, and depression. Allergies: ASPIRIN, HALDOL, LATEX, IODINE, PENICILLIN, MORPHINE. Medications: Bactrim Double Strength 1 tablet twice daily for ongoing urinary tract infection, oxaze dara 10 mg every 6 hours as needed for anxiety, tramadol 50 mg every 12 hours as needed, Lasix 40 mg d aily, vitamin B12 daily, Plavix 75 mg daily, melatonin 3 mg at night, atorvastatin 80 mg daily, carve dilol 25 mg twice daily, potassium 20 mEq daily, Prilosec 20 mg daily, and Senokot 1 tablet twice kelly ly. Family History: Noncontributory. Social History: No alcohol, tobacco, or IV drug use. Review of Systems: The patient denies any recent fevers, chills, any nausea, vomiting, myalgias or arthralgias. No head ache, weight change, or rash. Physical Examination: Vital Signs: Blood pressure 120/76, pulse 86, respiratory rate 16, temperature 97.2, oxygen saturati on 97%. Weight 267 pounds, height 5 feet 8 inches, BMI is 40.7. General: Ms. Quiroz is resting comfortably in bed. She is in no acute distress. She has a mild bru ise on the left forehead above the left eye. Her hand left hand and forearm are restricted in an imm obilizer. HEENT: She is otherwise atraumatic. Sclerae anicteric. Oropharynx pink and moist. Neck: Supple. Chest: Clear. Heart: Irregularly irregular. Abdomen: Soft. Extremities: No edema or cyanosis in the extremities. Neurological: She is alert and oriented to person, place, and situation. Follows all commands appro priately. She has no expressive or receptive aphasias detected. Cranial nerves do show mild decreas e to the left nasolabial fold and a slight decrease to light touch over the left face compared to the right. Otherwise intact cranial nerves. Motor examination, she has chronic weakness noted in the l eft upper and lower extremity and 3+ to 4- out of 5 proximally and distally. Left lower extremity 2+ to 3+ compared to the right side. She has decreased sensation and responses on the left compared to the right side. She has incoordination in the left upper and lower extremity. She is unable to amb ulate. Note NIH Stroke Scale of 7. Laboratory Studies: Have been reviewed. Her complete blood count with differential is unremarkable. Chemistries show mildly low sodium of 130, potassium 99, creatinine is slightly elevated at 1.07. Ammonia level is less than 9. Procalcitonin normal at 0.07. Urinalysis did show 20-50 bacteria, 5-1 0 white blood cells. Urine drug screen is positive for opiates and benzodiazepine. Assessment: Ms. Quiroz is a 73-year-old patient with a chronic right hemispheric stroke and residual left-sided weakness. She has no evidence of an acute stroke. She continues Plavix along with Lipit or and is on DVT prophylaxis with Lovenox. She will be seen by Orthopedic Service to address the fra cture of her left hand. The patient does have a positive drug screen for opiates, although it is not clear what opiate she is on and she also is positive for benzodiazepines. Her urine suggests the po ssibility of a urinary tract infection. However, cultures actually are pending. Blood cultures are still pending, but procalcitonin and white blood cell count are normal. Plan: Ms. Quiroz may be discharged from a neurological standpoint back to [facility]. She should b e in a bed where there are hand rails on both sides and she needs to be carefully assisted with all t ransfers and to reduce the risk of additional falls. She may continue with the Plavix to reduce her stroke risk along with her statin. She may follow up with Dr. Aguirre in 1 month. AMIE/ALICE Voice ID: [id number] Report ID: [id number]
[2018-02-02] MEDS: TRAMADOL HCL 50 MG TAB PO SCH ×2 (01:55→08:33)
[2018-02-02] MEDS: ACETAMINOPHEN 500 MG TAB PO PRN (04:05)
[2018-02-02] MEDS: NA CHLORIDE 0.9% 1,000 ML IV SCH (04:07)
[2018-02-02 07:26] LABS: Absolute Lymphocytes (CBC) 1.9 K/uL (0.7-4.9); Absolute Monocytes 0.4 K/uL (0.1-1.3); Absolute Neutrophil 2.6 K/uL (1.8-8.0); Basophils % 0.4 % (0-1.3); Eosinophils % 4.7 % (0-4.4); Hematocrit 32.8 % (36.0-45.0); Lymphocytes % 36.6 % (15.3-44.8); MCH 32.5 pg (27.0-35.0); MCV 95.2 fL (80-100); MPV 8.6 fL (7.6-11.3); Monocytes % 7.1 % (3.3-12.3); RBC Red Blood Cell Count 3.44 M/uL (3.86-4.86)
[2018-02-02 07:49] LABS: Albumin 3.1 g/dL (3.2-5.5); Bilirubin Total 0.6 mg/dL (0.3-1.2); Magnesium 1.9 mg/dL (1.8-2.5); Potassium 3.3 mEq/L (3.6-5.0); Protein, Total 5.4 g/dL (6.0-8.3)
[2018-02-02] MEDS ORDERED: POTASSIUM CL SA 10 MEQ TAB PO ONE (08:00)
[2018-02-02] MEDS: ENOXAPARIN 40 MG/0.4 ML SQ SCH (08:34)
[2018-02-02] MEDS: CARVEDILOL 6.25 MG TAB PO SCH (08:34)
[2018-02-02] MEDS: CLOPIDOGREL 75 MG TABLET PO SCH (08:34)
[2018-02-02] MEDS ORDERED: CEFTRIAXONE/SWI 1gm 1 GM/10 ML SYR IV ONE (09:00)
[2018-02-02] MEDS ORDERED: TRAMADOL HCL 50 MG TAB PO PRN (10:32)
[2018-02-02] MEDS ORDERED: CODEINE 30MG/APAP 300MG TAB PO ONE (10:32)
[2018-02-02 12:29] VITALS: O2SAT 94
--- NOTE | 2018-02-02 14:38 | P.DS ---
Admission Date: 01/31/18 Discharge Date: 02/02/18 Disposition: TRANSFER TO SNF - MEDICAL Discharge Condition: FAIR Reason for Admission: AMS Consultations: Orhtopedics Dr Matias Neurology Dr Gonsalves - Problems (1) Arm fracture, left Current Visit: Yes Status: Acute (2) Acute encephalopathy Onset Date: 02/01/18 Current Visit: Yes Status: Resolved (3) Acute cystitis with positive culture Current Visit: Yes Status: Acute Brief History of Present Illness: Ms Quiroz is a 73 years old woman resident from a local halfway, with history of A.Fib, COPD, KEVIN, HTN, who came to ED after sustained a fall to the ground while she was in bed. She hit her head, having a left forehead laceration. There was o history of fever or chills. CT head/cervical neck/chest/ abd/pelvis showed no acute abnormalities. However, left wrist XR was remarkable for second metacarpal fracture. While the patient was in ED about to be discharge back to SNF, she become unresponsive for about 10 minutes. She was only partially responded to noxious stimulus. During this episode, her BP was on the lower side, 80's/60's. She did not receive any medication while was in ED. Hospital Course: Patient was admitted to the floor.She remained at her baseline with no further episode of loss of consciousness reported.She was evaluated by neurologist and had EEG and MRI done which revealed Encephalomalacia of the right frontal lobe white matter, temporal lobe, basal ganglia and insular cortex from remote CVA. Regarding her left hand fracture, she was seen by Dr Matias, no plans for surgical intervention at this time.She was instructed to follow up with him as an outpatient. Her urine culture came back positive for GNR, she was treated with IV antibiotics while in the hospital and transitioned to po on discharge. She remained afebrile with normal wbc and vitals and was discharged safely back to SNF. Vital Signs/Physical Exam: Temp Pulse Resp BP Pulse Ox 97.6 F 76 18 118/63 94 02/02/18 11:51 02/02/18 11:51 02/02/18 11:51 02/02/18 11:51 02/02/18 11:51 General: Alert, In no apparent distress, Oriented x3 HEENT: Atraumatic, Normocephalic, PERRLA Neck: Supple, JVD not distended, No Thyromegaly, No LAD Respiratory: Clear to auscultation bilaterally, Normal air movement Cardiovascular: No edema, Normal pulses, Regular rate/rhythm, Normal S1 S2, No gallops, No rubs, No murmurs Gastrointestinal: Normal bowel sounds, Soft and benign, Non-distended, W/out hepatosplenomegaly, No ascites, No tenderness, No masses, No rebound, No guarding Musculoskeletal: No swelling, Other (left arm splint) Laboratory Data at Discharge: WBC 5.1 K/uL (4.3-10.9) D 02/02/18 05:44 Hgb 11.2 g/dL (12.0-15.0) L 02/02/18 05:44 Hct 32.8 % (36.0-45.0) L 02/02/18 05:44 Plt Count 144 K/uL (152-406) L D 02/02/18 05:44 Sodium 137 mEq/L (135-145) 02/02/18 05:44 Potassium 3.3 mEq/L (3.6-5.0) L 02/02/18 05:44 BUN 10 mg/dL (6-20) 02/02/18 05:44 Creatinine 0.82 mg/dL (0.44-1.00) 02/02/18 05:44 Glucose 99 mg/dL (65-120) 02/02/18 05:44 Magnesium 1.9 mg/dL (1.8-2.5) 02/02/18 05:44 Total Bilirubin 0.6 mg/dL (0.3-1.2) 02/02/18 05:44 AST 17 IU/L (10-42) 02/02/18 05:44 ALT 15 IU/L (10-60) 02/02/18 05:44 Alkaline Phosphatase 112 IU/L (42-121) 02/02/18 05:44 Troponin I 0.03 ng/mL (<0.03) 01/31/18 21:45 Home Medications: Carvedilol [Coreg*] 25 mg PO BID 01/13/14 Duloxetine HCl [Cymbalta] 1 cap PO DAILY 01/13/14 Montelukast Sodium 10 mg PO BEDTIME 12/22/16 Oxazepam 30 mg PO QID PRN 12/22/16 Prednisone [Prednisone*] 2.5 mg PO TID 12/22/16 Atorvastatin Calcium [Lipitor] 1 tab PO BEDTIME 02/01/18 Clopidogrel Bisulfate [Plavix*] 75 mg PO DAILY 02/01/18 Cyanocobalamin (Vitamin B-12) [Vitamin B-12] 1,000 mcg PO DAILY 02/01/18 Furosemide 1 tab PO DAILY 02/01/18 Hydrocodone Bit/Acetaminophen [Hydrocodon-Acetaminophn 10-325] 1 tab PO Q6H PRN 02/01/18 Melatonin 3 mg PO BEDTIME 02/01/18 Pantoprazole Sodium 20 mg PO DAILY 02/01/18 Nitrofurantoin Macrocrystal [Nitrofurantoin] 100 mg PO BID #10 capsule 02/02/18 traMADol HCL [Ultram*] 50 mg PO Q6H PRN #30 tab MDD 4 02/02/18 New Medications: Nitrofurantoin Macrocrystal [Nitrofurantoin] 100 mg PO BID #10 capsule traMADol HCL [Ultram*] 50 mg PO Q6H PRN #30 tab MDD 4 PRN Reason: Pain Patient Discharge Instructions: Return to ER with new or worsening symptoms. avoid lifting with left hand. follow up with ortho in one week Diet: Low sodium Activity: Non-weight bearing (on left hand) Followup: Tirso Aguirre MD [ASSOCIATE-ACTIVE - CAN ADMIT] - (follow up in one month) Brandin Matias MD [ACTIVE - CAN ADMIT] - 1 Week (call the office to make a follow up in 2 weeks. ) Physician Review: Patient Assessed, Agree with Above Assessment and Plan Time spent managing pt's care (in minutes): 35
[2018-02-02 16:17] VITALS: BP 152/84; TEMP 97.4
--- NOTE | 2018-02-02 18:31 | CON ---
Date of Consultation: 02/01/2018 It is my first time seeing Ms. Quiroz as far as I know. She is a 73-year-old female, who unfortunate ly had a CVA, which she says was over a year ago and since that time has had difficulty with the use of her left upper extremity and also is nonambulatory, but unfortunately sustained an injury to her l eft hand. X-rays of the left hand demonstrate a comminuted fracture of the distal portion of the sec ond metacarpal. It does not appear to be significantly displaced. Physical Examination: There is no sign of an open injury. This is her hand, which has been affected by the CVA and she is able to make a small fist. She says she really does not have much pain. There does not appear to be any angular or rotational deformity of the digit. Assessment: This is a 73-year-old female with a left second metacarpal fracture. The function of th is hand is already limited by her cerebrovascular accident. I think that she does not have any indic ation for surgical intervention. I think this could heal in a splint with the plan being most likely to keep it in a splint for approximately 3 weeks, after which I would encourage range of motion with splinting when not precipitating range of motion until week 6. I think this can be managed as an ou tpatient. She does have a splint now, which appears to be doing quite well. At the time of discharg e, we would have her follow up in my office to ensure that it is doing well and continue to manage it . /ALICE Voice ID: [id number] Report ID: [id number]
== END 2018-02-02 18:20 ==
LOC: ER 16:02 → ERHOLD 22:56 → 4TH 02-01 00:25
PROVIDERS: ADMIT Internal Medicine; ATTEND Internal Medicine
DX: N30.00 Acute cystitis without hematuria (principal); B96.1 Klebsiella pneumoniae [K. pneumoniae] as the cause of diseases classified elsewhere; G93.40 Encephalopathy, unspecified; S62.301A Unspecified fracture of second metacarpal bone, left hand, initial encounter for closed fracture; W06.XXXA Fall from bed, initial encounter; Y92.193 Bedroom in other specified residential institution as the place of occurrence of the external cause; I10 Essential (primary) hypertension; I48.91 Unspecified atrial fibrillation; J44.9 Chronic obstructive pulmonary disease, unspecified; Z96.653 Presence of artificial knee joint, bilateral; Z86.73 Personal history of transient ischemic attack (TIA), and cerebral infarction without residual deficits; Z88.0 Allergy status to penicillin; Z88.6 Allergy status to analgesic agent; Z91.040 Latex allergy status
CPT/HCPCS: 36415 ×2; 51702; 70450 ×2; 70551; 71045; 71250; 72125; 73110; 80048; 80053; 80307 ×9; 81015; 82140; 82805; 83605; 83735; 84145; 84484; 85025 ×2; 87040 ×2; 87077 ×2; 87086; 87088; 87186 ×2; 87493; 93005; 96361; 96365; 96375; 97163; 99285; G0378 ×2; J0696 ×2; J1650 ×2; J7030 ×3

== ENCOUNTER 2018-03-23 19:56 | Observation (INO) | payer OTHER ==
--- OUTSIDE RECORDS SUMMARY | 2018-03-23 19:59 | XMS REPORT | Clinical Summary ---
:1945 Author Organization [facility] Address [address] [place] [address] Phone Care Team Providers Name Role Phone [...] tablet (20 mg total) by mouth daily. nystatin (MYCOSTATIN) Apply topically 15 g 0 2017 2018 100,000 unit/gram 2 (two) times powder daily. Active Problems Problem Noted Date Vitamin D deficiency 01/02/2017 Leucocytosis 12/31/2016 Hypercalcemia 12/29/2016 Morbid obesity (HCC) 12/29/2016 Hyponatremia 12/26/2016 Atrial fibrillation ([facility]) 12/26/2016 Congestive heart failure (CHF) ([facility]) 12/26/2016 Acute right MCA stroke ([facility]) 12/25/2016 Social History Tobacco Use Types Packs/Day Years Used Date Never Smoker Alcohol Use Drinks/Week oz/Week Comments No Sex Assigned at Date Recorded Not on file Last Filed Vital Signs Not on file Plan of Treatment Not on file Results Not on fileafter 03/22/2017
--- OUTSIDE RECORDS SUMMARY | 2018-03-23 20:00 | XMS REPORT ---
:1945 [facility] [address] [place] [address] Care Team Providers Name Role Phone SAMMYDEVYNMichelleCECYNAYANDILAN MYERS Unavailable Unavailable Problems This patient has no known problems. Allergies, Adverse Reactions, Alerts This patient has no known allergies or adverse reactions. Medications This patient has no known medications. Results Test Description Test Time Test Comments Text Results Atomic Results Result Comments CREATININE CLEARANCE 2017-01-05 17:53:00 Test Item Value Reference Range Comments CREATININE CLEARANCE (BEAKER) (test 47.2 mL/min 70.0-140.0 fzga=239) VOLUME, TOTAL (BEAKER) (test 1050 ml naby=5678) CREATININE URINE (BEAKER) (test 78.9 mg/dL iqad=265) [id number]-AFJYXWKEFYR-088 (BEAKER) (test Linda Pitts MD (electronic yyvf=7618) signature) POCT-GLUCOSE [id number] 11:37:00 Test Item Value Reference Range Comments POC-GLUCOSE METER (BEAKER) 128 mg/dL 70-110 TESTED AT [facility] [address] [place] [address] (test ulvq=8974) [place] [address] URINE [id number] 11:02:00 Test Item Value Reference Range Comments CULTURE (BEAKER) (test ytte=1279) <10,000 col/mL skin jayshree POCT-GLUCOSE [id number] 06:28:00 Test Item Value Reference Range Comments POC-GLUCOSE METER (BEAKER) 101 mg/dL 70-110 TESTED AT [facility] [address] [facility] (test ssne=6420) [facility] [address] POCT-GLUCOSE [id number] 00:46:00 Test Item Value Reference Range Comments POC-GLUCOSE METER (BEAKER) 130 mg/dL 70-110 TESTED AT [address] (test llkn=5706) [place] [id number] POCT-GLUCOSE [id number] 20:21:00 Test Item Value Reference Range Comments POC-GLUCOSE METER (BEAKER) 133 mg/dL 70-110 TESTED AT [address] (test yopn=0590) [place] [address] [id number] 18:44:00 Test Item Value Reference Range Comments CREATININE (BEAKER) (test 0.82 mg/dL 0.57-1.25 ubxn=550) EGFR (BEAKER) (test 69 mL/min/1.73 sq m ESTIMATED GFR IS NOT prxn=2579) ACCURATE CREATININE CLEARANCE IN PREDICTING GLOMERULAR FILTRATION RATE. ESTIMATED GFR IS NOT APPLICABLE FOR DIALYSIS PATIENTS. POCT-GLUCOSE [id number] 17:11:00 Test Item Value Reference Range Comments POC-GLUCOSE METER (BEAKER) 118 mg/dL 70-110 TESTED AT [address] (test xoup=4410) [place] [id number] POCT-GLUCOSE [id number] 15:29:00 Test Item Value Reference Range Comments POC-GLUCOSE METER (BEAKER) 63 mg/dL 70-110 Notified CICI COTO/TESTED AT [facility] (test llvs=5247) [address] [place] [address] POCT-GLUCOSE [id number] 15:03:00 Test Item Value Reference Range Comments POC-GLUCOSE METER (BEAKER) 51 mg/dL 70-110 Notified CICI COTO/TESTED AT [facility] (test zusp=5535) [address] [place], [place] [id number] POCT-GLUCOSE [id number] 11:28:00 Test Item Value Reference Range Comments POC-GLUCOSE METER (BEAKER) 75 mg/dL 70-110 TESTED AT [address] (test vuig=6711) [place] [address] CALCIUM, 24 HOUR [id number] 09:19:00 Test Item Value Reference Range Comments VOLUME, TOTAL (BEAKER) (test avxr=0113) 1050 ml CALCIUM URINE (BEAKER) (test udrp=252) 15.4 mg/dL CALCIUM, 24HR URINE (BEAKER) (test psfr=7545) 162 mg/24 Hr 50-300 VITAMIN D, [id number] 07:18:00 Test Item Value Reference Range Comments VITAMIN D 25-OH (BEAKER) (test ihzl=3855) < ng/mL 13.0-47.8 CBC W/PLT COUNT & AUTO [id number] 07:04:00 Test Item Value Reference Range Comments WHITE BLOOD CELL COUNT (BEAKER) (test qyyj=883) 13.3 K/ L 4.0-10.0 RED BLOOD CELL COUNT (BEAKER) (test voyq=315) 3.79 M/ L 4.00-5.00 HEMOGLOBIN (BEAKER) (test wtdp=965) 12.3 GM/DL 12.0-15.0 HEMATOCRIT (BEAKER) (test zrfo=217) 37.1 % 36.0-45.0 MEAN CORPUSCULAR VOLUME (BEAKER) (test kavw=379) 98.1 fL 82.0-99.0 MEAN CORPUSCULAR HEMOGLOBIN (BEAKER) (test 32.4 pg 27.0-33.0 fgnb=542) MEAN CORPUSCULAR HEMOGLOBIN CONC (BEAKER) (test 33.0 GM/DL 32.0-36.0 ctne=590) RED CELL DISTRIBUTION WIDTH (BEAKER) (test 15.2 % 10.3-14.2 sqzt=765) PLATELET COUNT (BEAKER) (test tmdk=524) 218 K/CU MM 150-430 MEAN PLATELET VOLUME (BEAKER) (test lxfs=414) 7.3 fL 6.5-10.5 NUCLEATED RED BLOOD CELLS (BEAKER) (test 0 /100 WBC 0-0 iijo=629) NEUTROPHILS RELATIVE PERCENT (BEAKER) (test 79 % yvqs=469) LYMPHOCYTES RELATIVE PERCENT (BEAKER) (test 16 % epyd=324) MONOCYTES RELATIVE PERCENT (BEAKER) (test 5 % ovtr=232) EOSINOPHILS RELATIVE PERCENT (BEAKER) (test 1 % rbfe=861) BASOPHILS RELATIVE PERCENT (BEAKER) (test 0 % siho=799) NEUTROPHILS ABSOLUTE COUNT (BEAKER) (test 10.40 K/ L 1.80-8.00 lfbn=024) LYMPHOCYTES ABSOLUTE COUNT (BEAKER) (test 2.05 K/ L 1.48-4.50 vqhj=976) MONOCYTES ABSOLUTE COUNT (BEAKER) (test 0.69 K/ L 0.00-1.30 ztie=934) EOSINOPHILS ABSOLUTE COUNT (BEAKER) (test 0.09 K/ L 0.00-0.50 kdsw=968) BASOPHILS ABSOLUTE COUNT (BEAKER) (test 0.01 K/ L 0.00-0.20 yjil=179) 0.00BASIC METABOLIC [id number] 07:01:00 Test Item Value Reference Range Comments SODIUM (BEAKER) (test 142 meq/L 136-145 wwvi=232) POTASSIUM (BEAKER) (test 3.7 meq/L 3.5-5.1 bmuz=762) CHLORIDE (BEAKER) (test 104 meq/L 98-107 nreu=266) CO2 (BEAKER) (test 27 meq/L 22-29 otme=056) BLOOD UREA NITROGEN 35 mg/dL 7-21 (BEAKER) (test eceg=245) CREATININE (BEAKER) (test 0.86 mg/dL 0.57-1.25 elyl=879) GLUCOSE RANDOM (BEAKER) 144 mg/dL 70-105 (test lacc=704) CALCIUM (BEAKER) (test 11.6 mg/dL 8.4-10.2 renh=716) EGFR (BEAKER) (test 65 mL/min/1.73 sq m ESTIMATED GFR IS NOT euxq=3627) ACCURATE CREATININE CLEARANCE IN PREDICTING GLOMERULAR FILTRATION RATE. ESTIMATED GFR IS NOT APPLICABLE FOR DIALYSIS PATIENTS. [id number] 06:57:00 Test Item Value Reference Range Comments PHOSPHORUS (BEAKER) (test wwem=952) 3.0 mg/dL 2.3-4.7 [id number] 06:57:00 Test Item Value Reference Range Comments MAGNESIUM (BEAKER) (test lxra=199) 2.2 mg/dL 1.6-2.6 [id number] 06:34:00 Test Item Value Reference Range Comments ALBUMIN (BEAKER) (test tskt=7760) 3.8 g/dL 3.5-5.0 POCT-GLUCOSE [id number] 06:32:00 Test Item Value Reference Range Comments POC-GLUCOSE METER (BEAKER) 104 mg/dL 70-110 TESTED AT [address] (test fpkt=5705) [facility] [address] POCT-GLUCOSE [id number] 23:41:00 Test Item Value Reference Range Comments POC-GLUCOSE METER (BEAKER) 108 mg/dL 70-110 TESTED AT [address] (test cqwr=6607) [place] [id number] POCT-GLUCOSE [id number] 17:58:00 Test Item Value Reference Range Comments POC-GLUCOSE METER (BEAKER) 112 mg/dL 70-110 TESTED AT [address] (test uzyc=8649) [place] [address] URINALYSIS W/ REFLEX URINE [id number] 16:02:00 Test Item Value Reference Range Comments COLOR (BEAKER) (test pnoa=275) Yellow CLARITY (BEAKER) (test vrbg=823) Clear SPECIFIC GRAVITY UA (BEAKER) (test aqfi=552) 1.015 1.001-1.035 PH UA (BEAKER) (test ftvs=422) 6.0 5.0-8.0 PROTEIN UA (BEAKER) (test xntr=421) Negative Negative GLUCOSE UA (BEAKER) (test ujiu=218) Negative Negative KETONES UA (BEAKER) (test vadv=665) Negative Negative BILIRUBIN UA (BEAKER) (test kyby=821) Negative Negative BLOOD UA (BEAKER) (test dmaj=920) Negative Negative NITRITE UA (BEAKER) (test qckk=172) Negative Negative LEUKOCYTE ESTERASE UA (BEAKER) (test xzns=606) Moderate Negative UROBILINOGEN UA (BEAKER) (test ectu=449) 0.2 mg/dL 0.2-1.0 RBC UA (BEAKER) (test ulek=283) 10 /HPF WBC UA (BEAKER) (test wazt=348) 29 /HPF MUCUS (BEAKER) (test mcph=9502) Few SQUAMOUS EPITHELIAL (BEAKER) (test ylkr=012) 1 /HPF HYALINE CASTS (BEAKER) (test vusm=227) 2 /LPF SOURCE(BEAKER) (test fhza=6067) POCT-GLUCOSE [id number] 12:49:00 Test Item Value Reference Range Comments POC-GLUCOSE METER (BEAKER) 79 mg/dL 70-110 TESTED AT [address] (test odky=4465) [place] [id number] CBC W/PLT COUNT & AUTO [id number] 09:59:00 Test Item Value Reference Range Comments WHITE BLOOD CELL COUNT (BEAKER) (test etmn=048) 17.0 K/ L 4.0-10.0 RED BLOOD CELL COUNT (BEAKER) (test wuqb=085) 3.96 M/ L 4.00-5.00 HEMOGLOBIN (BEAKER) (test jvvj=813) 12.1 GM/DL 12.0-15.0 HEMATOCRIT (BEAKER) (test trbv=953) 39.2 % 36.0-45.0 MEAN CORPUSCULAR VOLUME (BEAKER) (test nkqu=774) 99.0 fL 82.0-99.0 MEAN CORPUSCULAR HEMOGLOBIN (BEAKER) (test 30.5 pg 27.0-33.0 svsh=402) MEAN CORPUSCULAR HEMOGLOBIN CONC (BEAKER) (test 30.8 GM/DL 32.0-36.0 rdhc=750) RED CELL DISTRIBUTION WIDTH (BEAKER) (test 15.5 % 10.3-14.2 ngfi=682) PLATELET COUNT (BEAKER) (test loyf=713) 219 K/CU MM 150-430 MEAN PLATELET VOLUME (BEAKER) (test zdjj=393) 7.3 fL 6.5-10.5 NUCLEATED RED BLOOD CELLS (BEAKER) (test 0 /100 WBC 0-0 bgyo=394) NEUTROPHILS RELATIVE PERCENT (BEAKER) (test 80 % fszm=825) LYMPHOCYTES RELATIVE PERCENT (BEAKER) (test 14 % ioqv=882) MONOCYTES RELATIVE PERCENT (BEAKER) (test 6 % djcy=766) EOSINOPHILS RELATIVE PERCENT (BEAKER) (test 1 % vrmf=427) BASOPHILS RELATIVE PERCENT (BEAKER) (test 0 % queg=561) NEUTROPHILS ABSOLUTE COUNT (BEAKER) (test 13.60 K/ L 1.80-8.00 qbov=840) LYMPHOCYTES ABSOLUTE COUNT (BEAKER) (test 2.32 K/ L 1.48-4.50 izvu=417) MONOCYTES ABSOLUTE COUNT (BEAKER) (test 0.97 K/ L 0.00-1.30 byml=286) EOSINOPHILS ABSOLUTE COUNT (BEAKER) (test 0.10 K/ L 0.00-0.50 cpei=077) BASOPHILS ABSOLUTE COUNT (BEAKER) (test 0.01 K/ L 0.00-0.20 vord=110) 0.000.510.000.000.000.00(MANUAL DIFFERENTIAL)2017-01-01 09:59:00 Test Item Value Reference Range Comments TOTAL COUNTED (BEAKER) (test huwq=1632) WBC MORPHOLOGY (BEAKER) (test hlik=179) Normal PLT MORPHOLOGY (BEAKER) (test xkah=884) Normal RBC MORPHOLOGY (BEAKER) (test lxlt=525) Normal POCT-GLUCOSE [id number] 06:20:00 Test Item Value Reference Range Comments POC-GLUCOSE METER (BEAKER) 140 mg/dL 70-110 TESTED AT [facility] [address] [facility] (test cdxf=9715) [facility] [address] [id number] 06:11:00 Test Item Value Reference Range Comments ALBUMIN (BEAKER) (test 3.2 g/dL 3.5-5.0 Specimen moderately hemolyzed vwdg=3677) BASIC METABOLIC [id number] 06:00:00 Test Item Value Reference Range Comments SODIUM (BEAKER) (test 143 meq/L 136-145 wcva=271) POTASSIUM (BEAKER) (test 3.8 meq/L 3.5-5.1 tuhz=445) CHLORIDE (BEAKER) (test 102 meq/L 98-107 lglc=275) CO2 (BEAKER) (test 31 meq/L 22-29 kqtc=870) BLOOD UREA NITROGEN 33 mg/dL 7-21 (BEAKER) (test ldjy=503) CREATININE (BEAKER) (test 0.89 mg/dL 0.57-1.25 rrao=896) GLUCOSE RANDOM (BEAKER) 145 mg/dL 70-105 (test rxpn=210) CALCIUM (BEAKER) (test 11.6 mg/dL 8.4-10.2 fqqi=657) EGFR (BEAKER) (test 63 mL/min/1.73 sq m ESTIMATED GFR IS NOT srny=6154) ACCURATE CREATININE CLEARANCE IN PREDICTING GLOMERULAR FILTRATION RATE. ESTIMATED GFR IS NOT APPLICABLE FOR DIALYSIS PATIENTS. [id number] 05:59:00 Test Item Value Reference Range Comments PHOSPHORUS (BEAKER) (test xxjh=643) 3.1 mg/dL 2.3-4.7 [id number] 05:59:00 Test Item Value Reference Range Comments MAGNESIUM (BEAKER) (test tvrn=056) 2.0 mg/dL 1.6-2.6 POCT-GLUCOSE [id number] 23:38:00 Test Item Value Reference Range Comments POC-GLUCOSE METER (BEAKER) 156 mg/dL 70-110 TESTED AT [address] (test sxqq=7573) [facility] [address] POCT-GLUCOSE [id number] 18:18:00 Test Item Value Reference Range Comments POC-GLUCOSE METER (BEAKER) 110 mg/dL 70-110 TESTED AT [address] (test exse=7860) [place] [id number] POCT-GLUCOSE [id number] 11:44:00 Test Item Value Reference Range Comments POC-GLUCOSE METER (BEAKER) 79 mg/dL 70-110 TESTED AT [address] (test imdh=6530) [place] [id number] CBC W/PLT COUNT & AUTO [id number] 11:03:00 Test Item Value Reference Range Comments WHITE BLOOD CELL COUNT (BEAKER) (test zdms=574) 13.9 K/ L 4.0-10.0 RED BLOOD CELL COUNT (BEAKER) (test lelv=501) 3.86 M/ L 4.00-5.00 HEMOGLOBIN (BEAKER) (test truj=429) 12.4 GM/DL 12.0-15.0 HEMATOCRIT (BEAKER) (test dqaf=117) 37.7 % 36.0-45.0 MEAN CORPUSCULAR VOLUME (BEAKER) (test rtlt=971) 97.5 fL 82.0-99.0 MEAN CORPUSCULAR HEMOGLOBIN (BEAKER) (test 32.2 pg 27.0-33.0 wlcc=709) MEAN CORPUSCULAR HEMOGLOBIN CONC (BEAKER) (test 33.0 GM/DL 32.0-36.0 mgas=989) RED CELL DISTRIBUTION WIDTH (BEAKER) (test 16.4 % 10.3-14.2 aesw=734) PLATELET COUNT (BEAKER) (test kqrt=800) 248 K/CU MM 150-430 MEAN PLATELET VOLUME (BEAKER) (test ahnz=170) 7.1 fL 6.5-10.5 NUCLEATED RED BLOOD CELLS (BEAKER) (test 0 /100 WBC 0-0 jzme=040) NEUTROPHILS RELATIVE PERCENT (BEAKER) (test 81 % uzyp=948) LYMPHOCYTES RELATIVE PERCENT (BEAKER) (test 12 % gaxd=110) MONOCYTES RELATIVE PERCENT (BEAKER) (test 6 % pbwq=026) EOSINOPHILS RELATIVE PERCENT (BEAKER) (test 1 % pget=232) BASOPHILS RELATIVE PERCENT (BEAKER) (test 0 % embk=512) NEUTROPHILS ABSOLUTE COUNT (BEAKER) (test 11.30 K/ L 1.80-8.00 hbao=227) LYMPHOCYTES ABSOLUTE COUNT (BEAKER) (test 1.62 K/ L 1.48-4.50 fttl=804) MONOCYTES ABSOLUTE COUNT (BEAKER) (test 0.84 K/ L 0.00-1.30 pgrd=598) EOSINOPHILS ABSOLUTE COUNT (BEAKER) (test 0.15 K/ L 0.00-0.50 valc=622) BASOPHILS ABSOLUTE COUNT (BEAKER) (test 0.03 K/ L 0.00-0.20 rcyi=197) 0.000.520.000.000.000.000.000.000.00(MANUAL DIFFERENTIAL)2016-12-31 11:03:00 Test Item Value Reference Range Comments TOTAL COUNTED (BEAKER) (test oyid=2705) WBC MORPHOLOGY (BEAKER) (test tnma=621) Normal PLT MORPHOLOGY (BEAKER) (test nugi=396) Normal RBC MORPHOLOGY (BEAKER) (test yjwz=328) Normal POCT-GLUCOSE [id number] 06:21:00 Test Item Value Reference Range Comments POC-GLUCOSE METER (BEAKER) 152 mg/dL 70-110 TESTED AT [facility] [address] [place] [address] (test tmny=8471) [facility] [address] BASIC METABOLIC [id number] 06:04:00 Test Item Value Reference Range Comments SODIUM (BEAKER) (test 142 meq/L 136-145 kxan=430) POTASSIUM (BEAKER) (test 3.8 meq/L 3.5-5.1 fnpv=669) CHLORIDE (BEAKER) (test 102 meq/L 98-107 cejz=051) CO2 (BEAKER) (test 29 meq/L 22-29 ldvw=722) BLOOD UREA NITROGEN 34 mg/dL 7-21 (BEAKER) (test zkvb=062) CREATININE (BEAKER) (test 0.85 mg/dL 0.57-1.25 kffk=147) GLUCOSE RANDOM (BEAKER) 151 mg/dL 70-105 (test xuuv=846) CALCIUM (BEAKER) (test 11.7 mg/dL 8.4-10.2 iktg=082) EGFR (BEAKER) (test 66 mL/min/1.73 sq m ESTIMATED GFR IS NOT gmuf=8476) ACCURATE CREATININE CLEARANCE IN PREDICTING GLOMERULAR FILTRATION RATE. ESTIMATED GFR IS NOT APPLICABLE FOR DIALYSIS PATIENTS. [id number] 05:56:00 Test Item Value Reference Range Comments PHOSPHORUS (BEAKER) (test xawh=605) 3.5 mg/dL 2.3-4.7 [id number] 05:56:00 Test Item Value Reference Range Comments MAGNESIUM (BEAKER) (test iypq=992) 1.9 mg/dL 1.6-2.6 POCT-GLUCOSE [id number] 23:51:00 Test Item Value Reference Range Comments POC-GLUCOSE METER (BEAKER) 168 mg/dL 70-110 TESTED AT [address] (test npof=2891) [facility] [address] POCT-GLUCOSE [id number] 18:34:00 Test Item Value Reference Range Comments POC-GLUCOSE METER (BEAKER) 80 mg/dL 70-110 TESTED AT [address] (test zdvd=1243) [facility] [address] POCT-GLUCOSE [id number] 16:09:00 Test Item Value Reference Range Comments POC-GLUCOSE METER (BEAKER) 83 mg/dL 70-110 TESTED AT [address] (test ajvd=7054) [facility] [address] POCT-GLUCOSE [id number] 16:09:00 Test Item Value Reference Range Comments POC-GLUCOSE METER (BEAKER) 41 mg/dL 70-110 TESTED AT [address] (test qdgd=3622) [facility] [address] POCT-GLUCOSE [id number] 15:20:00 Test Item Value Reference Range Comments POC-GLUCOSE METER (BEAKER) 44 mg/dL 70-110 TESTED AT [address] (test uiyv=8911) [facility] [address] POCT-GLUCOSE [id number] 08:27:00 Test Item Value Reference Range Comments POC-GLUCOSE METER (BEAKER) 114 mg/dL 70-110 TESTED AT [address] (test yphg=7657) [facility] [address] POCT-GLUCOSE [id number] 08:27:00 Test Item Value Reference Range Comments POC-GLUCOSE METER (BEAKER) 35 mg/dL 70-110 TESTED AT [facility] [address] (test qhbf=4894) [place] [address] CBC W/PLT COUNT & AUTO [id number] 07:04:00 Test Item Value Reference Range Comments WHITE BLOOD CELL COUNT (BEAKER) (test khrz=648) 8.2 K/ L 4.0-10.0 RED BLOOD CELL COUNT (BEAKER) (test xcwy=783) 4.05 M/ L 4.00-5.00 HEMOGLOBIN (BEAKER) (test zhdb=525) 12.8 GM/DL 12.0-15.0 HEMATOCRIT (BEAKER) (test xhdp=726) 39.2 % 36.0-45.0 MEAN CORPUSCULAR VOLUME (BEAKER) (test xwmj=313) 97.0 fL 82.0-99.0 MEAN CORPUSCULAR HEMOGLOBIN (BEAKER) (test 31.7 pg 27.0-33.0 lwxl=187) MEAN CORPUSCULAR HEMOGLOBIN CONC (BEAKER) (test 32.7 GM/DL 32.0-36.0 omsm=901) RED CELL DISTRIBUTION WIDTH (BEAKER) (test 15.6 % 10.3-14.2 vtcq=970) PLATELET COUNT (BEAKER) (test glvd=764) 275 K/CU MM 150-430 MEAN PLATELET VOLUME (BEAKER) (test tnyr=211) 6.9 fL 6.5-10.5 NUCLEATED RED BLOOD CELLS (BEAKER) (test 0 /100 WBC 0-0 opsw=734) NEUTROPHILS RELATIVE PERCENT (BEAKER) (test 63 % ahcq=476) LYMPHOCYTES RELATIVE PERCENT (BEAKER) (test 27 % tmtr=890) MONOCYTES RELATIVE PERCENT (BEAKER) (test 7 % ghda=684) EOSINOPHILS RELATIVE PERCENT (BEAKER) (test 2 % gdsh=437) BASOPHILS RELATIVE PERCENT (BEAKER) (test 1 % drxm=209) NEUTROPHILS ABSOLUTE COUNT (BEAKER) (test 5.13 K/ L 1.80-8.00 uigu=970) LYMPHOCYTES ABSOLUTE COUNT (BEAKER) (test 2.21 K/ L 1.48-4.50 aais=566) MONOCYTES ABSOLUTE COUNT (BEAKER) (test 0.59 K/ L 0.00-1.30 cdqf=274) EOSINOPHILS ABSOLUTE COUNT (BEAKER) (test 0.18 K/ L 0.00-0.50 myfe=473) BASOPHILS ABSOLUTE COUNT (BEAKER) (test 0.10 K/ L 0.00-0.20 ewlq=397) 0.00POCT-GLUCOSE [id number] 06:20:00 Test Item Value Reference Range Comments POC-GLUCOSE METER (BEAKER) 62 mg/dL 70-110 Notified CICI COTO/TESTED AT [facility] (test vkbm=1501) [address] [place] [place] [address] BASIC METABOLIC [id number] 06:13:00 Test Item Value Reference Range Comments SODIUM (BEAKER) (test 141 meq/L 136-145 rlym=362) POTASSIUM (BEAKER) (test 4.3 meq/L 3.5-5.1 ltaw=409) CHLORIDE (BEAKER) (test 99 meq/L 98-107 swzo=796) CO2 (BEAKER) (test 33 meq/L 22-29 ubrs=092) BLOOD UREA NITROGEN 36 mg/dL 7-21 (BEAKER) (test uboh=437) CREATININE (BEAKER) (test 0.93 mg/dL 0.57-1.25 kcjr=648) GLUCOSE RANDOM (BEAKER) 107 mg/dL 70-105 (test fhjk=318) CALCIUM (BEAKER) (test 11.9 mg/dL 8.4-10.2 xwnu=970) EGFR (BEAKER) (test 59 mL/min/1.73 sq m ESTIMATED GFR IS NOT gadu=6117) ACCURATE CREATININE CLEARANCE IN PREDICTING GLOMERULAR FILTRATION RATE. ESTIMATED GFR IS NOT APPLICABLE FOR DIALYSIS PATIENTS. [id number] 06:10:00 Test Item Value Reference Range Comments PHOSPHORUS (BEAKER) (test irxs=366) 3.5 mg/dL 2.3-4.7 [id number] 06:10:00 Test Item Value Reference Range Comments MAGNESIUM (BEAKER) (test svgg=575) 2.2 mg/dL 1.6-2.6 PROTHROMBIN [id number] 06:05:00 Test Item Value Reference Range Comments PROTIME (BEAKER) (test sbkr=380) 15.5 seconds 11.7-14.7 INR (BEAKER) (test aldm=095) 1.2 <=5.9 RECOMMENDED COUMADIN/WARFARIN INR THERAPY RANGESSTANDARD DOSE: 2.0 - 3.0 Includes: PROPHYLAXIS forvenous thrombosis, systemic embolization; TREATMENT for venous thrombosis and/or pulmonary embolus.HIGH RISK: Target INR is 2.5-3.5 for patients with mechanical heart valves.POCT-GLUCOSE [id number] 23:58:00 Test Item Value Reference Range Comments POC-GLUCOSE METER (BEAKER) 108 mg/dL 70-110 TESTED AT [address] (test bygj=2403) [place] [id number] POCT-GLUCOSE [id number] 18:02:00 Test Item Value Reference Range Comments POC-GLUCOSE METER (BEAKER) 126 mg/dL 70-110 TESTED AT [address] (test jnkq=0242) [place] [address] PTH, [id number] 14:50:00 Test Item Value Reference Range Comments PARATHYROID HORMONE INTACT (BEAKER) (test 274.9 pg/mL 8.5-72.5 swzd=592) Effective 08/19/2014: Reference Range ChangeNew: 8.5-72.5 Previous: 15.0- 90.0POCT-GLUCOSE [id number] 13:33:00 Test Item Value Reference Range Comments POC-GLUCOSE METER (BEAKER) 145 mg/dL 70-110 TESTED AT [address] (test gbtl=6930) [place] [id number] CBC W/PLT COUNT & AUTO [id number] 08:35:00 Test Item Value Reference Range Comments WHITE BLOOD CELL COUNT (BEAKER) (test ulfa=785) 10.2 K/ L 4.0-10.0 RED BLOOD CELL COUNT (BEAKER) (test gcrw=810) 3.96 M/ L 4.00-5.00 HEMOGLOBIN (BEAKER) (test zhye=456) 12.8 GM/DL 12.0-15.0 HEMATOCRIT (BEAKER) (test esfu=862) 38.7 % 36.0-45.0 MEAN CORPUSCULAR VOLUME (BEAKER) (test xvsn=577) 97.7 fL 82.0-99.0 MEAN CORPUSCULAR HEMOGLOBIN (BEAKER) (test 32.2 pg 27.0-33.0 glop=145) MEAN CORPUSCULAR HEMOGLOBIN CONC (BEAKER) (test 33.0 GM/DL 32.0-36.0 ormi=236) RED CELL DISTRIBUTION WIDTH (BEAKER) (test 16.7 % 10.3-14.2 xcsu=526) PLATELET COUNT (BEAKER) (test azyb=328) 279 K/CU MM 150-430 MEAN PLATELET VOLUME (BEAKER) (test yfsy=296) 6.7 fL 6.5-10.5 NUCLEATED RED BLOOD CELLS (BEAKER) (test 0 /100 WBC 0-0 qrvw=571) NEUTROPHILS RELATIVE PERCENT (BEAKER) (test 70 % cppv=778) LYMPHOCYTES RELATIVE PERCENT (BEAKER) (test 22 % xvks=801) MONOCYTES RELATIVE PERCENT (BEAKER) (test 7 % bzdd=242) EOSINOPHILS RELATIVE PERCENT (BEAKER) (test 2 % qezc=694) BASOPHILS RELATIVE PERCENT (BEAKER) (test 0 % helu=376) NEUTROPHILS ABSOLUTE COUNT (BEAKER) (test 7.11 K/ L 1.80-8.00 kyxz=127) LYMPHOCYTES ABSOLUTE COUNT (BEAKER) (test 2.19 K/ L 1.48-4.50 jzcw=165) MONOCYTES ABSOLUTE COUNT (BEAKER) (test 0.70 K/ L 0.00-1.30 vlue=005) EOSINOPHILS ABSOLUTE COUNT (BEAKER) (test 0.18 K/ L 0.00-0.50 hwtk=536) BASOPHILS ABSOLUTE COUNT (BEAKER) (test 0.02 K/ L 0.00-0.20 gflj=031) 0.000.500.000.000.000.000.000.000.000.000.000.000.000.000.000.000.00(MANUAL DIFFERENTIAL)2016-12-29 08:35:00 Test Item Value Reference Range Comments TOTAL COUNTED (BEAKER) (test regx=6969) BASIC METABOLIC [id number] 06:00:00 Test Item Value Reference Range Comments SODIUM (BEAKER) (test 141 meq/L 136-145 qihv=333) POTASSIUM (BEAKER) (test 4.3 meq/L 3.5-5.1 Specimen slightly dbrl=825) hemolyzed CHLORIDE (BEAKER) (test 100 meq/L 98-107 afsg=375) CO2 (BEAKER) (test 29 meq/L 22-29 ambv=427) BLOOD UREA NITROGEN 34 mg/dL 7-21 (BEAKER) (test pfgq=397) CREATININE (BEAKER) (test 0.91 mg/dL 0.57-1.25 Specimen slightly oamg=767) hemolyzed GLUCOSE RANDOM (BEAKER) 110 mg/dL 70-105 (test vzgh=556) CALCIUM (BEAKER) (test 12.0 mg/dL 8.4-10.2 acna=075) EGFR (BEAKER) (test 61 mL/min/1.73 sq m ESTIMATED GFR IS NOT tdqc=2250) ACCURATE CREATININE CLEARANCE IN PREDICTING GLOMERULAR FILTRATION RATE. ESTIMATED GFR IS NOT APPLICABLE FOR DIALYSIS PATIENTS. [id number] 05:59:00 Test Item Value Reference Range Comments MAGNESIUM (BEAKER) (test 2.4 mg/dL 1.6-2.6 Specimen slightly hemolyzed yydu=307) [id number] 05:59:00 Test Item Value Reference Range Comments PHOSPHORUS (BEAKER) (test 3.1 mg/dL 2.3-4.7 Specimen slightly hemolyzed nrzi=025) POCT-GLUCOSE [id number] 05:32:00 Test Item Value Reference Range Comments POC-GLUCOSE METER (BEAKER) 114 mg/dL 70-110 TESTED AT [address] (test hqof=0567) [place] [id number] POCT-GLUCOSE [id number] 00:02:00 Test Item Value Reference Range Comments POC-GLUCOSE METER (BEAKER) 106 mg/dL 70-110 TESTED AT [address] (test aclz=7302) [place] [id number] POCT-GLUCOSE [id number] 18:28:00 Test Item Value Reference Range Comments POC-GLUCOSE METER (BEAKER) 150 mg/dL 70-110 TESTED AT [address] (test nrhj=2381) [place] [id number] POCT-GLUCOSE [id number] 12:31:00 Test Item Value Reference Range Comments POC-GLUCOSE METER (BEAKER) 152 mg/dL 70-110 TESTED AT [address] (test ukyx=8927) [place] [id number] POCT-GLUCOSE [id number] 05:41:00 Test Item Value Reference Range Comments POC-GLUCOSE METER (BEAKER) 120 mg/dL 70-110 TESTED AT [address] (test uiek=4558) [place] [id number] CBC W/PLT COUNT & AUTO [id number] 05:00:00 Test Item Value Reference Range Comments WHITE BLOOD CELL COUNT (BEAKER) (test jnjq=294) 8.8 K/ L 4.0-10.0 RED BLOOD CELL COUNT (BEAKER) (test tnzc=319) 3.76 M/ L 4.00-5.00 HEMOGLOBIN (BEAKER) (test xhoo=695) 11.3 GM/DL 12.0-15.0 HEMATOCRIT (BEAKER) (test wdbw=939) 35.7 % 36.0-45.0 MEAN CORPUSCULAR VOLUME (BEAKER) (test zdkn=262) 95.1 fL 82.0-99.0 MEAN CORPUSCULAR HEMOGLOBIN (BEAKER) (test 30.2 pg 27.0-33.0 unoz=362) MEAN CORPUSCULAR HEMOGLOBIN CONC (BEAKER) (test 31.7 GM/DL 32.0-36.0 qcnr=087) RED CELL DISTRIBUTION WIDTH (BEAKER) (test 15.5 % 10.3-14.2 hhet=050) PLATELET COUNT (BEAKER) (test qmfl=802) 259 K/CU MM 150-430 MEAN PLATELET VOLUME (BEAKER) (test jtji=491) 6.3 fL 6.5-10.5 NUCLEATED RED BLOOD CELLS (BEAKER) (test 0 /100 WBC 0-0 ncsn=422) NEUTROPHILS RELATIVE PERCENT (BEAKER) (test 72 % uwcq=044) LYMPHOCYTES RELATIVE PERCENT (BEAKER) (test 20 % xmaj=345) MONOCYTES RELATIVE PERCENT (BEAKER) (test 6 % uulj=734) EOSINOPHILS RELATIVE PERCENT (BEAKER) (test 1 % mfol=023) BASOPHILS RELATIVE PERCENT (BEAKER) (test 0 % asyb=167) NEUTROPHILS ABSOLUTE COUNT (BEAKER) (test 6.39 K/ L 1.80-8.00 hnoy=727) LYMPHOCYTES ABSOLUTE COUNT (BEAKER) (test 1.75 K/ L 1.48-4.50 qide=906) MONOCYTES ABSOLUTE COUNT (BEAKER) (test 0.57 K/ L 0.00-1.30 wcfz=591) EOSINOPHILS ABSOLUTE COUNT (BEAKER) (test 0.11 K/ L 0.00-0.50 tcen=465) BASOPHILS ABSOLUTE COUNT (BEAKER) (test 0.02 K/ L 0.00-0.20 hzbs=560) 0.00BASIC METABOLIC [id number] 04:58:00 Test Item Value Reference Range Comments SODIUM (BEAKER) (test 142 meq/L 136-145 evhm=731) POTASSIUM (BEAKER) (test 3.6 meq/L 3.5-5.1 Specimen slightly hzmj=713) hemolyzed CHLORIDE (BEAKER) (test 98 meq/L 98-107 bcul=524) CO2 (BEAKER) (test 32 meq/L 22-29 dlkr=799) BLOOD UREA NITROGEN 32 mg/dL 7-21 (BEAKER) (test mcrj=698) CREATININE (BEAKER) (test 0.92 mg/dL 0.57-1.25 Specimen slightly lqxi=824) hemolyzed GLUCOSE RANDOM (BEAKER) 134 mg/dL 70-105 (test vewv=171) CALCIUM (BEAKER) (test 11.5 mg/dL 8.4-10.2 tanq=847) EGFR (BEAKER) (test 60 mL/min/1.73 sq m ESTIMATED GFR IS NOT wznl=8569) ACCURATE CREATININE CLEARANCE IN PREDICTING GLOMERULAR FILTRATION RATE. ESTIMATED GFR IS NOT APPLICABLE FOR DIALYSIS PATIENTS. [id number] 04:57:00 Test Item Value Reference Range Comments MAGNESIUM (BEAKER) (test 2.5 mg/dL 1.6-2.6 Specimen slightly hemolyzed kykq=995) [id number] 04:57:00 Test Item Value Reference Range Comments PHOSPHORUS (BEAKER) (test 3.3 mg/dL 2.3-4.7 Specimen slightly hemolyzed hbhl=592) POCT-GLUCOSE [id number] 00:44:00 Test Item Value Reference Range Comments POC-GLUCOSE METER (BEAKER) 142 mg/dL 70-110 TESTED AT [address] (test kqdc=7403) [facility] [address] POCT-GLUCOSE [id number] 18:34:00 Test Item Value Reference Range Comments POC-GLUCOSE METER (BEAKER) 115 mg/dL 70-110 TESTED AT [address] (test fkvx=4320) [facility] [address] POCT-GLUCOSE [id number] 12:21:00 Test Item Value Reference Range Comments POC-GLUCOSE METER (BEAKER) 123 mg/dL 70-110 TESTED AT [address] (test awsm=9015) [place] [address] URINE [id number] 10:42:00 Test Item Value Reference Range Comments CULTURE (BEAKER) (test qmqr=5125) No growth [id number] 06:53:00 Test Item Value Reference Range Comments POTASSIUM (BEAKER) (test gjwb=426) 3.6 meq/L 3.5-5.1 Check Serum Potassium level 2 hours after oral potassium replacement completed or 30 min after intravenous potassium replacement.[id number] 06:53:00 Test Item Value Reference Range Comments MAGNESIUM (BEAKER) (test xuhj=531) 2.7 mg/dL 1.6-2.6 Check Serum Potassium level 2 hours after oral potassium replacement completed or 30 min after intravenous potassium replacement.POCT-GLUCOSE [id number] 06:27:00 Test Item Value Reference Range Comments POC-GLUCOSE METER (BEAKER) 113 mg/dL 70-110 TESTED AT [address] (test wite=6972) [place] [address] BASIC METABOLIC [id number] 02:30:00 Test Item Value Reference Range Comments SODIUM (BEAKER) (test 139 meq/L 136-145 cvfe=303) POTASSIUM (BEAKER) (test 3.8 meq/L 3.5-5.1 wmck=620) CHLORIDE (BEAKER) (test 95 meq/L 98-107 zxdz=777) CO2 (BEAKER) (test 30 meq/L 22-29 pfhy=468) BLOOD UREA NITROGEN 24 mg/dL 7-21 (BEAKER) (test iwxt=871) CREATININE (BEAKER) (test 0.96 mg/dL 0.57-1.25 ldtu=091) GLUCOSE RANDOM (BEAKER) 122 mg/dL 70-105 (test ziqr=100) CALCIUM (BEAKER) (test 11.6 mg/dL 8.4-10.2 wjsb=522) EGFR (BEAKER) (test 57 mL/min/1.73 sq m ESTIMATED GFR IS NOT yrji=0876) ACCURATE CREATININE CLEARANCE IN PREDICTING GLOMERULAR FILTRATION RATE. ESTIMATED GFR IS NOT APPLICABLE FOR DIALYSIS PATIENTS. [id number] 02:29:00 Test Item Value Reference Range Comments PHOSPHORUS (BEAKER) (test sulw=367) 3.5 mg/dL 2.3-4.7 [id number] 02:29:00 Test Item Value Reference Range Comments MAGNESIUM (BEAKER) (test vuqb=040) 2.2 mg/dL 1.6-2.6 [id number] 02:29:00 Test Item Value Reference Range Comments SODIUM (BEAKER) (test rqar=544) 139 meq/L 136-145 CBC W/PLT COUNT & AUTO [id number] 02:21:00 Test Item Value Reference Range Comments WHITE BLOOD CELL COUNT (BEAKER) (test zcsl=387) 6.2 K/ L 4.0-10.0 RED BLOOD CELL COUNT (BEAKER) (test wrmh=862) 3.77 M/ L 4.00-5.00 HEMOGLOBIN (BEAKER) (test lmul=380) 11.8 GM/DL 12.0-15.0 HEMATOCRIT (BEAKER) (test kkzj=782) 36.1 % 36.0-45.0 MEAN CORPUSCULAR VOLUME (BEAKER) (test snpi=069) 95.9 fL 82.0-99.0 MEAN CORPUSCULAR HEMOGLOBIN (BEAKER) (test 31.3 pg 27.0-33.0 kayj=107) MEAN CORPUSCULAR HEMOGLOBIN CONC (BEAKER) (test 32.6 GM/DL 32.0-36.0 wysm=337) RED CELL DISTRIBUTION WIDTH (BEAKER) (test 16.7 % 10.3-14.2 uxnb=610) PLATELET COUNT (BEAKER) (test tedv=072) 247 K/CU MM 150-430 MEAN PLATELET VOLUME (BEAKER) (test itld=815) 6.3 fL 6.5-10.5 NUCLEATED RED BLOOD CELLS (BEAKER) (test 0 /100 WBC 0-0 reac=206) NEUTROPHILS RELATIVE PERCENT (BEAKER) (test 73 % ctrf=281) LYMPHOCYTES RELATIVE PERCENT (BEAKER) (test 19 % zqlc=384) MONOCYTES RELATIVE PERCENT (BEAKER) (test 8 % dpys=258) EOSINOPHILS RELATIVE PERCENT (BEAKER) (test 0 % uwjr=216) BASOPHILS RELATIVE PERCENT (BEAKER) (test 0 % ujvp=346) NEUTROPHILS ABSOLUTE COUNT (BEAKER) (test 4.53 K/ L 1.80-8.00 lebd=480) LYMPHOCYTES ABSOLUTE COUNT (BEAKER) (test 1.16 K/ L 1.48-4.50 fzhs=943) MONOCYTES ABSOLUTE COUNT (BEAKER) (test 0.47 K/ L 0.00-1.30 mkfr=385) EOSINOPHILS ABSOLUTE COUNT (BEAKER) (test 0.02 K/ L 0.00-0.50 jqgy=247) BASOPHILS ABSOLUTE COUNT (BEAKER) (test 0.00 K/ L 0.00-0.20 lsxt=049) 0.00POCT-GLUCOSE [id number] 00:44:00 Test Item Value Reference Range Comments POC-GLUCOSE METER (BEAKER) 121 mg/dL 70-110 TESTED AT [address] (test uwfu=4885) [facility] [address] [id number] 20:34:00 Test Item Value Reference Range Comments SODIUM (BEAKER) (test tmcz=834) 138 meq/L 136-145 HEPATIC FUNCTION [id number] 20:34:00 Test Item Value Reference Range Comments TOTAL PROTEIN (BEAKER) (test bkns=310) 6.7 gm/dL 6.0-8.3 ALBUMIN (BEAKER) (test wmja=3351) 3.6 g/dL 3.5-5.0 BILIRUBIN TOTAL (BEAKER) (test mzkq=356) 0.3 mg/dL 0.2-1.2 BILIRUBIN DIRECT (BEAKER) (test pvmo=254) 0.2 mg/dL 0.1-0.5 ALKALINE PHOSPHATASE (BEAKER) (test vzvn=075) 148 U/L 40-150 AST (SGOT) (BEAKER) (test oihk=751) 15 U/L 5-34 ALT (SGPT) (BEAKER) (test syzz=135) 15 U/L 6-55 [id number] 20:25:00 Test Item Value Reference Range Comments AMMONIA (BEAKER) (test cgmr=104) 30 mol/L 18-72 POCT-GLUCOSE [id number] 19:58:00 Test Item Value Reference Range Comments POC-GLUCOSE METER (BEAKER) 125 mg/dL 70-110 TESTED AT [address] (test odaa=9792) [facility] [address] [id number] 14:30:00 Test Item Value Reference Range Comments RPR SCREEN (BEAKER) (test junh=078) Nonreactive Nonreactive [id number] 13:35:00 Test Item Value Reference Range Comments SODIUM (BEAKER) (test qlfu=446) 136 meq/L 136-145 [id number] 13:23:00 Test Item Value Reference Range Comments CORTISOL, TOTAL (BEAKER) (test fjwl=3340) 11.7 ug/dL 3.7-19.4 POCT-GLUCOSE [id number] 13:22:00 Test Item Value Reference Range Comments POC-GLUCOSE METER (BEAKER) 117 mg/dL 70-110 TESTED AT [facility] [address] [facility] (test ocdw=7764) [facility] [address] B-TYPE NATRIURETIC FACTOR (BNP)2016-12-26 11:55:00 Test Item Value Reference Range Comments B-TYPE NATRIURETIC PEPTIDE (BEAKER) (test 115 pg/mL 0-100 jjgb=989) [id number] 11:43:00 Test Item Value Reference Range Comments MAGNESIUM (BEAKER) (test 2.5 mg/dL 1.6-2.6 Specimen slightly hemolyzed mbqf=723) OSMOLALITY, [id number] 04:32:00 Test Item Value Reference Range Comments OSMOLALITY, SERUM (BEAKER) (test pnri=413) 303 mOsm/kg 275-295 LIPID [id number] 04:04:00 Test Item Value Reference Range Comments TRIGLYCERIDES (BEAKER) (test wasx=527) 94 mg/dL CHOLESTEROL (BEAKER) (test klso=956) 197 mg/dL HDL CHOLESTEROL (BEAKER) (test pebv=904) 54 mg/dL LDL CHOLESTEROL CALCULATED (BEAKER) (test 124 mg/dL rfem=125) Triglyceride Reference Range: Low Risk <150 Borderline 150- 199 High Risk 200-499 Very High Risk >=500Cholesterol Reference Range: Low Risk <200 Borderline 200-239 High Risk > 240HDL Cholesterol Reference Range: Low Risk >=60 High Risk <40LDL Cholesterol Reference Range: Optimal <100 Near Optimal 100-129 Borderline 130-159 High 160-189 Very High >=190 [id number] 04:03:00 Test Item Value Reference Range Comments PHOSPHORUS (BEAKER) (test mjet=150) 3.2 mg/dL 2.3-4.7 BASIC METABOLIC [id number] 04:03:00 Test Item Value Reference Range Comments SODIUM (BEAKER) (test 130 meq/L 136-145 ppni=372) POTASSIUM (BEAKER) (test 4.0 meq/L 3.5-5.1 vsuz=657) CHLORIDE (BEAKER) (test 89 meq/L 98-107 jhvf=211) CO2 (BEAKER) (test 30 meq/L 22-29 npzb=853) BLOOD UREA NITROGEN 24 mg/dL 7-21 (BEAKER) (test hsnl=314) CREATININE (BEAKER) (test 0.96 mg/dL 0.57-1.25 qgej=651) GLUCOSE RANDOM (BEAKER) 111 mg/dL 70-105 (test bdsq=336) CALCIUM (BEAKER) (test 11.1 mg/dL 8.4-10.2 dyyx=900) EGFR (BEAKER) (test 57 mL/min/1.73 sq m ESTIMATED GFR IS NOT mxfe=5557) ACCURATE CREATININE CLEARANCE IN PREDICTING GLOMERULAR FILTRATION RATE. ESTIMATED GFR IS NOT APPLICABLE FOR DIALYSIS PATIENTS. CBC W/PLT COUNT & AUTO [id number] 03:43:00 Test Item Value Reference Range Comments WHITE BLOOD CELL COUNT (BEAKER) (test isuk=946) 6.9 K/ L 4.0-10.0 RED BLOOD CELL COUNT (BEAKER) (test ijyp=210) 3.81 M/ L 4.00-5.00 HEMOGLOBIN (BEAKER) (test ugga=552) 12.0 GM/DL 12.0-15.0 HEMATOCRIT (BEAKER) (test ppnf=770) 35.6 % 36.0-45.0 MEAN CORPUSCULAR VOLUME (BEAKER) (test rwix=969) 93.4 fL 82.0-99.0 MEAN CORPUSCULAR HEMOGLOBIN (BEAKER) (test 31.4 pg 27.0-33.0 fwbk=031) MEAN CORPUSCULAR HEMOGLOBIN CONC (BEAKER) (test 33.6 GM/DL 32.0-36.0 scnm=958) RED CELL DISTRIBUTION WIDTH (BEAKER) (test 15.4 % 10.3-14.2 ghkj=490) PLATELET COUNT (BEAKER) (test qskg=555) 250 K/CU MM 150-430 MEAN PLATELET VOLUME (BEAKER) (test hbiq=897) 6.0 fL 6.5-10.5 NUCLEATED RED BLOOD CELLS (BEAKER) (test 0 /100 WBC 0-0 fuks=979) NEUTROPHILS RELATIVE PERCENT (BEAKER) (test 67 % omli=034) LYMPHOCYTES RELATIVE PERCENT (BEAKER) (test 20 % zqsi=800) MONOCYTES RELATIVE PERCENT (BEAKER) (test 12 % jske=685) EOSINOPHILS RELATIVE PERCENT (BEAKER) (test 1 % dtkg=353) BASOPHILS RELATIVE PERCENT (BEAKER) (test 0 % twvr=583) NEUTROPHILS ABSOLUTE COUNT (BEAKER) (test 4.64 K/ L 1.80-8.00 jkzd=717) LYMPHOCYTES ABSOLUTE COUNT (BEAKER) (test 1.38 K/ L 1.48-4.50 aiai=198) MONOCYTES ABSOLUTE COUNT (BEAKER) (test 0.81 K/ L 0.00-1.30 awur=545) EOSINOPHILS ABSOLUTE COUNT (BEAKER) (test 0.05 K/ L 0.00-0.50 nczt=970) BASOPHILS ABSOLUTE COUNT (BEAKER) (test 0.03 K/ L 0.00-0.20 azsw=696) [id number] 01:55:00 Test Item Value Reference Range Comments POTASSIUM (BEAKER) (test wdop=383) 3.2 meq/L 3.5-5.1 [id number] 01:55:00 Test Item Value Reference Range Comments MAGNESIUM (BEAKER) (test pxgk=767) 1.7 mg/dL 1.6-2.6 TROPONIN [id number] 01:21:00 Test Item Value Reference Range Comments TROPONIN I (BEAKER) (test ngzp=726) 0.01 ng/mL 0.00-0.03 Effective 08/19/2014: Reference Range [...] acidosis, acute neurological disease, and persistent tachyarrhythmia.POCT-GLUCOSE [id number] 01:03:00 Test Item Value Reference Range Comments POC-GLUCOSE METER (BEAKER) 161 mg/dL 70-110 TESTED AT [facility] [address] (test tsib=7279) [facility] [address] POCT-GLUCOSE [id number] 00:22:00 Test Item Value Reference Range Comments POC-GLUCOSE METER (BEAKER) 62 mg/dL 70-110 Notified CICI COTO/TESTED AT [facility] (test blda=6165) [address] [facility] [address] HEMOGLOBIN [id number] 22:44:00 Test Item Value Reference Range Comments HEMOGLOBIN A1C (BEAKER) (test seuy=534) 5.0 % 4.3-6.1 TSH/FREE T4 IF [id number] 21:14:00 Test Item Value Reference Range Comments THYROID STIMULATING HORMONE (BEAKER) (test 2.66 uIU/mL 0.35-4.94 wfzl=723) VITAMIN B12 AND [id number] 21:14:00 Test Item Value Reference Range Comments VITAMIN B12 (BEAKER) (test jbqd=475) 325 pg/mL 213-816 FOLATE (BEAKER) (test rzrk=459) 11.9 ng/mL >=7.0 Effective 08/19/2014: Folate Reference Range ChangeNew: >=7.0 Previous: & gt;=5.4CBC W/PLT COUNT & AUTO [id number] 19:39:00 Test Item Value Reference Range Comments WHITE BLOOD CELL COUNT (BEAKER) (test qzgf=108) 5.3 K/ L 4.0-10.0 RED BLOOD CELL COUNT (BEAKER) (test rqan=538) 3.72 M/ L 4.00-5.00 HEMOGLOBIN (BEAKER) (test qobe=248) 11.6 GM/DL 12.0-15.0 HEMATOCRIT (BEAKER) (test fthk=534) 35.0 % 36.0-45.0 MEAN CORPUSCULAR VOLUME (BEAKER) (test ifqu=786) 94.2 fL 82.0-99.0 MEAN CORPUSCULAR HEMOGLOBIN (BEAKER) (test 31.3 pg 27.0-33.0 adcw=138) MEAN CORPUSCULAR HEMOGLOBIN CONC (BEAKER) (test 33.2 GM/DL 32.0-36.0 zskk=834) RED CELL DISTRIBUTION WIDTH (BEAKER) (test 16.5 % 10.3-14.2 rqyu=279) PLATELET COUNT (BEAKER) (test yhnk=349) 220 K/CU MM 150-430 MEAN PLATELET VOLUME (BEAKER) (test vzva=123) 6.2 fL 6.5-10.5 NUCLEATED RED BLOOD CELLS (BEAKER) (test 0 /100 WBC 0-0 xmtj=076) NEUTROPHILS RELATIVE PERCENT (BEAKER) (test 73 % samf=000) LYMPHOCYTES RELATIVE PERCENT (BEAKER) (test 17 % euej=915) MONOCYTES RELATIVE PERCENT (BEAKER) (test 9 % ydju=599) EOSINOPHILS RELATIVE PERCENT (BEAKER) (test 0 % pjck=668) BASOPHILS RELATIVE PERCENT (BEAKER) (test 0 % cwdh=882) NEUTROPHILS ABSOLUTE COUNT (BEAKER) (test 3.85 K/ L 1.80-8.00 jgek=204) LYMPHOCYTES ABSOLUTE COUNT (BEAKER) (test 0.91 K/ L 1.48-4.50 hcpl=631) MONOCYTES ABSOLUTE COUNT (BEAKER) (test 0.49 K/ L 0.00-1.30 sntt=975) EOSINOPHILS ABSOLUTE COUNT (BEAKER) (test 0.02 K/ L 0.00-0.50 mlav=916) BASOPHILS ABSOLUTE COUNT (BEAKER) (test 0.01 K/ L 0.00-0.20 care=002) 0.00TROPONIN [id number] 19:31:00 Test Item Value Reference Range Comments TROPONIN I (BEAKER) (test jyih=119) < ng/mL 0.00-0.03 Effective 08/19/2014: Reference Range [...] Range Comments B-TYPE NATRIURETIC PEPTIDE (BEAKER) (test zjer=506) 90 pg/mL 0-100 LIPID [id number] 19:24:00 Test Item Value Reference Range Comments TRIGLYCERIDES (BEAKER) (test jgrv=862) 83 mg/dL CHOLESTEROL (BEAKER) (test kyec=295) 198 mg/dL HDL CHOLESTEROL (BEAKER) (test spfh=485) 54 mg/dL LDL CHOLESTEROL CALCULATED (BEAKER) (test 127 mg/dL khlv=869) Triglyceride Reference Range: Low Risk <150 Borderline 150- 199 High Risk 200-499 Very High Risk >=500Cholesterol Reference Range: Low Risk <200 Borderline 200-239 High Risk > 240HDL Cholesterol Reference Range: Low Risk >=60 High Risk <40LDL Cholesterol Reference Range: Optimal <100 Near Optimal 100-129 Borderline 130-159 High 160-189 Very High >=190BASIC METABOLIC [id number] 19:24:00 Test Item Value Reference Range Comments SODIUM (BEAKER) (test 133 meq/L 136-145 jvuy=839) POTASSIUM (BEAKER) (test 3.7 meq/L 3.5-5.1 xyvf=525) CHLORIDE (BEAKER) (test 90 meq/L 98-107 tvqo=199) CO2 (BEAKER) (test 31 meq/L 22-29 kaku=331) BLOOD UREA NITROGEN 25 mg/dL 7-21 (BEAKER) (test cdov=231) CREATININE (BEAKER) (test 0.83 mg/dL 0.57-1.25 vqmi=700) GLUCOSE RANDOM (BEAKER) 126 mg/dL 70-105 (test poeg=947) CALCIUM (BEAKER) (test 11.0 mg/dL 8.4-10.2 ljkv=440) EGFR (BEAKER) (test 68 mL/min/1.73 sq m ESTIMATED GFR IS NOT gjof=9751) ACCURATE CREATININE CLEARANCE IN PREDICTING GLOMERULAR FILTRATION RATE. ESTIMATED GFR IS NOT APPLICABLE FOR DIALYSIS PATIENTS. PROTHROMBIN TIME/[id number] 19:17:00 Test Item Value Reference Range Comments PROTIME (BEAKER) (test dcvv=862) 14.1 seconds 11.7-14.7 INR (BEAKER) (test gnvh=931) 1.1 <=5.9 RECOMMENDED COUMADIN/WARFARIN INR THERAPY RANGESSTANDARD DOSE: 2.0 - 3.0 Includes: PROPHYLAXIS forvenous thrombosis, systemic embolization; TREATMENT for venous thrombosis and/or pulmonary embolus.HIGH RISK: Target INR is 2.5-3.5 for patients with mechanical heart valves.[id number] 19:17:00 Test Item Value Reference Range Comments PARTIAL THROMBOPLASTIN TIME (BEAKER) (test 24.9 seconds 22.5-36.0 uyfl=608) URINALYSIS W/ [id number] 19:15:00 Test Item Value Reference Range Comments COLOR (BEAKER) (test tvow=938) Yellow CLARITY (BEAKER) (test txvh=830) Clear SPECIFIC GRAVITY UA (BEAKER) (test wdzl=716) 1.009 1.001-1.035 PH UA (BEAKER) (test mczr=503) 7.0 5.0-8.0 PROTEIN UA (BEAKER) (test ypge=261) Negative Negative GLUCOSE UA (BEAKER) (test lcyn=948) Negative Negative KETONES UA (BEAKER) (test yaag=433) Negative Negative BILIRUBIN UA (BEAKER) (test pwna=064) Negative Negative BLOOD UA (BEAKER) (test xnqm=007) Negative Negative NITRITE UA (BEAKER) (test acnn=604) Negative Negative LEUKOCYTE ESTERASE UA (BEAKER) (test uqbk=607) Negative Negative UROBILINOGEN UA (BEAKER) (test qtaq=984) 0.2 mg/dL 0.2-1.0 RBC UA (BEAKER) (test yxum=749) < /HPF WBC UA (BEAKER) (test okwg=104) 1 /HPF SQUAMOUS EPITHELIAL (BEAKER) (test zngb=146) < /HPF SOURCE(BEAKER) (test pmfh=4818) Urine, [place] POCT-GLUCOSE [id number] 18:33:00 Test Item Value Reference Range Comments POC-GLUCOSE METER (BEAKER) 75 mg/dL 70-110 TESTED AT [facility] [address] (test oduf=2081) [facility] [id number]
[2018-03-23 20:55] LABS: Absolute Lymphocytes (CBC) 2.3 K/uL (0.7-4.9); Absolute Monocytes 0.5 K/uL (0.1-1.3); Absolute Neutrophil 4.5 K/uL (1.8-8.0); Basophils % 0.3 % (0-1.3); Eosinophils % 1.7 % (0-4.4); Hematocrit 42.5 % (36.0-45.0); Lymphocytes % 31.2 % (15.3-44.8); MCH 33.1 pg (27.0-35.0); MCV 98.4 fL (80-100); MPV 7.6 fL (7.6-11.3); Monocytes % 6.5 % (3.3-12.3); RBC Red Blood Cell Count 4.32 M/uL (3.86-4.86)
--- NOTE | 2018-03-23 21:09 | RAD REPORT ---
EXAM DESCRIPTION: RAD - Chest Single View - 03/23/2018 9:04 pm CLINICAL HISTORY: CHEST PAIN Chest pain. COMPARISON: Chest Single View dated 01/31/2018; Chest Single View dated 03/07/2017; Chest Single View da janine 12/25/2016; Chest Single View dated 12/24/2016 FINDINGS: Portable technique limits examination quality. Mild interstitial pulmonary edema suspected. The heart is mildly enlarged in size. No displaced fract ures. IMPRESSION: Mild CHF.
[2018-03-23 21:31] LABS: Protime INR 0.97
[2018-03-23 21:42] LABS: Potassium 4.5 mmol/L (3.5-5.1)
--- NOTE | 2018-03-23 21:45 | EDPHYS ---
Physician Documentation [facility] Name: Rocio Quiroz Age: 73 yrs Sex: Female : 1945 Arrival Date: 03/23/2018 Time: 19:57 Bed 4 Private MD: Arturo Kyle T; Khan, Mohammad, A ED Physician Dariel Ritchie HPI: 03/24 00:12 This 73 yrs old Female presents to ER via EMS with complaints of Chest Pain. 00:12 The patient or guardian reports chest pain that is located primarily in the anterior gs chest wall. Onset: 2 day(s) ago. The pain does not radiate. Associated signs and symptoms: Pertinent positives: shortness of breath. The chest pain is described as a heaviness. Duration: The patient or guardian reports a single episode, that is still ongoing. Modifying factors: The symptoms are alleviated by nothing. the symptoms are aggravated by nothing. Severity of pain: At its worst the pain was moderate in the emergency department the pain is unchanged. The patient has experienced similar episodes in the past, several times. Historical: - Allergies: 03/23 20:11 Aspirin; rv 20:11 Iodine; rv 20:11 Morphine; rv 20:11 PENICILLINS; rv 20:11 Haldol; rv 20:11 Latex, Natural Rubber; rv - Home Meds: 20:11 prednisone 2.5 mg Oral tab 1 tab 3 times per day [Active]; hydrocodone-acetaminophen rv 10-325 mg Oral tab 1 tab every 6 hours for Pain [Active]; acetaminophen 325 mg Oral tab 2 tabs for Fever [Active]; tramadol 50 mg Oral tab 1 tab every 6 hours [Active]; clopidogrel 75 mg oral tab 1 tab once daily [Active]; Acidophilus Oral cap [Active]; Vitamin B-12 1,000 mcg Oral tab [Active]; Miralax 17 gram/dose Oral powd once daily [Active]; furosemide 40 mg Oral tab [Active]; duloxetine 30 mg oral cpDR 2 caps once daily [Active]; omeprazole 20 mg Oral cpDR 1 cap once daily [Active]; melatonin 3 mg Oral tab [Active]; montelukast 10 mg oral tab 1 tab once daily [Active]; atorvastatin 40 mg oral tab 1 tab once daily [Active]; Coreg 25 mg Oral tab 1 tab 2 times per day [Active]; oxazepam 30 mg Oral cap [Active]; - PMHx: 20:11 Anemia; Atrial Fib; vitamin d deficiency; cerebral infarction; sleep apnea; rv - PSHx: 20:11 None; rv - Immunization history:: Adult Immunizations up to date. - Social history:: Smoking status: unknown. - Ebola Screening: : Patient negative for fever greater than or equal to 101.5 degrees Fahrenheit, and additional compatible Ebola Virus Disease symptoms Patient denies exposure to infectious person Patient denies travel to an Ebola-affected area in the 21 days before illness onset. ROS: 03/24 00:12 All other systems are negative. gs Exam: 00:12 Head/Face: Normocephalic, atraumatic. Eyes: Pupils equal round and reactive to light, gs extra-ocular motions intact. Lids and lashes normal. Conjunctiva and sclera are non-icteric and not injected. Cornea within normal limits. Periorbital areas with no swelling, redness, or edema. ENT: Nares patent. No nasal discharge, no septal abnormalities noted. Tympanic membranes are normal and external auditory canals are clear. Oropharynx with no redness, swelling, or masses, exudates, or evidence of obstruction, uvula midline. Mucous membranes moist. Neck: Trachea midline, no thyromegaly or masses palpated, and no cervical lymphadenopathy. Supple, full range of motion without nuchal rigidity, or vertebral point tenderness. No Meningismus. Chest/axilla: Normal chest wall appearance and motion. Nontender with no deformity. No lesions are appreciated. Respiratory: Lungs have equal breath sounds bilaterally, clear to auscultation and percussion. No rales, rhonchi or wheezes noted. No increased work of breathing, no retractions or nasal flaring. Abdomen/GI: Soft, non-tender, with normal bowel sounds. No distension or tympany. No guarding or rebound. No evidence of tenderness throughout. Back: No spinal tenderness. No costovertebral tenderness. Full range of motion. MS/ Extremity: Pulses equal, no cyanosis. Neurovascular intact. Full, normal range of motion. Neuro: Awake and alert, GCS 15, oriented to person, place, time, and situation. Cranial nerves II-XII grossly intact. Motor strength 5/5 in all extremities. Sensory grossly intact. Cerebellar exam normal. Normal gait. 00:12 Constitutional: The patient appears alert, awake. 00:12 Skin: Appearance: Color: pale. 00:12 ECG was reviewed by the Attending Physician. Vital Signs: 03/23 20:12 BP 131 / 82; Pulse 78; Resp 19; Temp 98.6; rv 20:24 Weight 123.38 kg; Height 5 ft. 5 in. (165.10 cm); ea 21:12 Pulse 75; Resp 19; Pulse Ox 100% ; rv 22:30 BP 129 / 68; Pulse 65; Resp 18; Pulse Ox 100% on R/A; Pain 0/10; ea 23:00 BP 132 / 70; Pulse 70; Resp 18; Temp 98(O); Pulse Ox 99% on R/A; Pain 0/10; ea 20:24 Body Mass Index 45.26 (123.38 kg, 165.10 cm) ea MDM: 20:25 Patient medically screened. 03/24 00:12 Differential diagnosis: abnormal EKG, acute myocardial infarction, chest wall pain, gs congestive heart failure. Data reviewed: vital signs, nurses notes. 00:12 Data reviewed: lab test result(s), EKG, radiologic studies. Test interpretation: by ED physician or midlevel provider: ECG, plain radiologic studies. 03/23 20:29 Order name: Troponin (emerg Dept Use Only); Complete Time: 21:43 03/23 20:29 Order name: Basic Metabolic Panel; Complete Time: 21:43 03/23 20:20 Order name: EKG; Complete Time: 20:20 aa03/23 20:29 Order name: CBC with Diff; Complete Time: 21:24 03/23 20:29 Order name: PT-INR; Complete Time: 21:43 03/23 20:29 Order name: XRAY Chest (1 view); Complete Time: 21:24 03/23 20:20 Order name: EKG - Nurse/Tech; Complete Time: 20:20 aa03/23 20:29 Order name: Cardiac monitoring; Complete Time: 20:39 03/23 20:29 Order name: IV Saline Lock; Complete Time: 20:39 03/23 20:29 Order name: Labs collected and sent; Complete Time: 21:04 03/23 20:29 Order name: O2 Per Protocol; Complete Time: 20:39 03/23 20:29 Order name: O2 Sat Monitoring; Complete Time: 20:39 EC:12 Rate is 79 beats/min. Rhythm is irregularly irregular. QRS interval is normal. T waves gs are Flattened. No ST changes noted. Clinical impression: NSR w/ Non-specific ST/T Changes and Abnormal EKG without significant change. Interpreted by me. Administered Medications: No medications were administered Disposition: 00:12 Critical Care:. gs Disposition: 03/23/18 21:44 Hospitalization ordered by Ozzie Alicea for Inpatient Admission. Preliminary diagnosis are Atrial fibrillation and flutter, Heart failure. - Bed requested for Telemetry/MedSurg (observation). - Status is Inpatient Admission. ea - Condition is Stable. - Problem is new. - Symptoms have improved. UTI on Admission? No Critical care time excluding procedures: 00:12 Critical care time: Bedside Care: 10 minutes, Consultation: 10 minutes, Family gs Intervention: 10 minutes. Total time: 30 minutes Signatures: Dispatcher [employer] EDFL Estefania Brown RN RN mw Kern, Alissa RN RN aa1 Maritza Henry RN RN ea Starr, Gregory, MD MD Ren Gilbert, RN RN rv Corrections: (The following items were deleted from the chart) 03/23 21:49 21:44 Hospitalization Ordered by Ozzie Alicea MD for Inpatient Admission. Preliminary diagnosis is Atrial fibrillation and flutter; Heart failure. Bed requested for Telemetry/MedSurg (observation). Status is Inpatient Admission. Condition is Stable. Problem is new. Symptoms have improved. UTI on Admission? No. gs 03/24 00:01 03/23 21:49 03/23/2018 21:44 Hospitalization Ordered by Ozzie Alicea MD for Inpatient ea Admission. Preliminary diagnosis is Atrial fibrillation and flutter; Heart failure. Bed requested for Telemetry/MedSurg (observation). Status is Inpatient Admission. Condition is Stable. Problem is new. Symptoms have improved. UTI on Admission? No. mw
--- NOTE | 2018-03-23 21:45 | ER ---
Nurse's Notes [facility] Name: Rocio Quiroz Age: 73 yrs Sex: Female : 1945 Arrival Date: 03/23/2018 Time: 19:57 Bed 4 Private MD: Arturo Kyle T; Khan, Mohammad, A Diagnosis: Atrial fibrillation and flutter;Heart failure Presentation: 03/23 19:58 Presenting complaint: EMS states: started having chest pain at 1645 and chest pain rv protocol was initiated. given aspirin and nitrates. chest pain was 8/10 but when EMS got there patient denies any chest pain. Transition of care: [facility]. Onset of symptoms was March 23, 2018 at 16:45. Risk Assessment: Do you want to hurt yourself or someone else? Patient reports no desire to harm self or others. Initial Sepsis Screen: Does the patient meet any 2 criteria? No. Patient's initial sepsis screen is negative. Does the patient have a suspected source of infection? No. Patient's initial sepsis screen is negative. Care prior to arrival: None. 19:58 Method Of Arrival: EMS rv 19:58 Acuity: LINDSEY 3 rv Historical: - Allergies: 20:11 Aspirin; rv 20:11 Iodine; rv 20:11 Morphine; rv 20:11 PENICILLINS; rv 20:11 Haldol; rv 20:11 Latex, Natural Rubber; rv - Home Meds: 20:11 prednisone 2.5 mg Oral tab 1 tab 3 times per day [Active]; hydrocodone-acetaminophen rv 10-325 mg Oral tab 1 tab every 6 hours for Pain [Active]; acetaminophen 325 mg Oral tab 2 tabs for Fever [Active]; tramadol 50 mg Oral tab 1 tab every 6 hours [Active]; clopidogrel 75 mg oral tab 1 tab once daily [Active]; Acidophilus Oral cap [Active]; Vitamin B-12 1,000 mcg Oral tab [Active]; Miralax 17 gram/dose Oral powd once daily [Active]; furosemide 40 mg Oral tab [Active]; duloxetine 30 mg oral cpDR 2 caps once daily [Active]; omeprazole 20 mg Oral cpDR 1 cap once daily [Active]; melatonin 3 mg Oral tab [Active]; montelukast 10 mg oral tab 1 tab once daily [Active]; atorvastatin 40 mg oral tab 1 tab once daily [Active]; Coreg 25 mg Oral tab 1 tab 2 times per day [Active]; oxazepam 30 mg Oral cap [Active]; - PMHx: 20:11 Anemia; Atrial Fib; vitamin d deficiency; cerebral infarction; sleep apnea; rv - PSHx: 20:11 None; rv - Immunization history:: Adult Immunizations up to date. - Social history:: Smoking status: unknown. - Ebola Screening: : Patient negative for fever greater than or equal to 101.5 degrees Fahrenheit, and additional compatible Ebola Virus Disease symptoms Patient denies exposure to infectious person Patient denies travel to an Ebola-affected area in the 21 days before illness onset. Screenin:21 Abuse screen: Denies threats or abuse. Nutritional screening: No deficits noted. ea Tuberculosis screening: No symptoms or risk factors identified. Fall Risk None identified. Assessment: 20:13 General: Appears in no apparent distress. comfortable, obese, Behavior is calm, rv cooperative, anxious. Pain: Denies pain. Neuro: Level of Consciousness is awake, alert, obeys commands, Oriented to person, place, time, situation. Cardiovascular: Heart tones S1 S2 present. Respiratory: Airway is patent. GI: No signs and/or symptoms were reported involving the gastrointestinal system. : No signs and/or symptoms were reported regarding the genitourinary system. EENT: No signs and/or symptoms were reported regarding the EENT system. Derm: Skin has skin tears on tears on left forearm. no active bleeding. 22:45 Reassessment: Patient and/or family updated on plan of care and expected duration. Pain ea level reassessed. Patient is alert, oriented x 3, equal unlabored respirations, skin warm/dry/pink. remains at bedside. 23:30 Reassessment: Patient and/or family updated on plan of care and expected duration. Pain ea level reassessed. Patient is alert, oriented x 3, equal unlabored respirations, skin warm/dry/pink. Report called to Aspen BOLANOS on second floor. Vital Signs: 20:12 BP 131 / 82; Pulse 78; Resp 19; Temp 98.6; rv 20:24 Weight 123.38 kg; Height 5 ft. 5 in. (165.10 cm); ea 21:12 Pulse 75; Resp 19; Pulse Ox 100% ; rv 22:30 BP 129 / 68; Pulse 65; Resp 18; Pulse Ox 100% on R/A; Pain 0/10; ea 23:00 BP 132 / 70; Pulse 70; Resp 18; Temp 98(O); Pulse Ox 99% on R/A; Pain 0/10; ea 20:24 Body Mass Index 45.26 (123.38 kg, 165.10 cm) ea ED Course: 19:57 Patient arrived in ED. ds1 19:58 Arturo Kyle MD is Private Physician. ds1 19:58 Arturo Kyle MD is Private Physician. ds1 19:58 Ozzie Alicea MD is Private Physician. ds1 20:00 Triage completed. rv 20:03 EKG done, by ED staff, reviewed by Dariel Ritchie MD. mt 20:10 Missed attempt(s): 22 gauge in right antecubital area. Bleeding controlled, band aid aa1 applied, catheter tip intact. 20:13 Arm band placed on left wrist. Patient placed in an exam room, on a stretcher, on ea cafeteria monitor, on pulse oximetry. 20:15 Inserted saline lock: 22 gauge in right forearm, using aseptic technique. Blood aa1 collected. 20:18 Dariel Ritchie MD is Attending Physician. gs 20:21 Maritza Henry, CICI is Primary Nurse. ea 20:22 Patient has correct armband on for positive identification. Bed in low position. Call ea light in reach. Side rails up X2. 20:59 X-ray completed. Portable x-ray completed in exam room. Patient tolerated procedure kc2 well. 21:05 XRAY Chest (1 view) In Process Unspecified. EDMS 21:08 Lab(s) recollected, by me, sent to lab. aa1 21:44 Ozzie Alicea MD is Hospitalizing Provider. gs 22:49 No provider procedures requiring assistance completed. Patient admitted, IV remains in ea place. Administered Medications: No medications were administered Outcome: 21:44 Decision to Hospitalize by Provider. gs 22:00 Instructed on the need for admit. ea 23:30 Admitted to Med/surg accompanied by tech, via stretcher, with chart, Report called to libia Louise RN 23:30 Condition: stable 03/24 00:01 Patient left the ED. ea Signatures: Dispatcher [employer] EDKaylene Bergeron, RN RN aa1 Aure Mathew1 Oliva Murrell2 Odilia Daniels mt, Elena RN RN ea Erma, MD CHICA Vieira Ren Gilbert RN RN rv
[2018-03-23] MEDS ORDERED: ACETAMINOPHEN 500 MG TAB PO PRN (22:30)
[2018-03-23] MEDS ORDERED: MORPHINE 4 MG/ML SYR IV PRN (22:30)
[2018-03-23] MEDS ORDERED: ALPRAZOLAM 0.25 MG TABLET PO PRN (22:30)
[2018-03-24] MEDS: TRAMADOL HCL 50 MG TAB PO PRN ×2 (00:50→08:34)
[2018-03-24 01:17] VITALS: BMI 45.9
[2018-03-24 07:32] LABS: Urine Appearance CLOUDY; Urine Bilirubin NEGATIVE (NEG); Urine Blood NEGATIVE (NEG); Urine Color YELLOW; Urine Glucose NEGATIVE (NEG); Urine Protein NEGATIVE (NEG); Urine Urobilinogen 0.2 mg/dL (0.2-1.0)
[2018-03-24 07:37] LABS: Urine Microscopic Reflex ORDER UMIC
[2018-03-24 07:54] LABS: Urine Amorphous Sediment 1+ /HPF (NONE SEEN); Urine Bacteria 20-50 /HPF (<20); Urine Culture Reflex Order REFLEXED; Urine Mucus 1+ /HPF (NONE SEEN); Urine RBC <5 /HPF (NONE SEEN)
--- NOTE | 2018-03-24 08:04 | P.HP ---
Certification for Inpatient Patient admitted to: Observation With expected LOS: <2 Midnights Patient will require the following post-hospital care: None Practitioner: I am a practitioner with admitting privileges, knowledge of patient current condition, hospital course, and medical plan of care. Services: Services provided to patient in accordance with Admission requirements found in Title 42 Section 412.3 of the Code of Federal Regulations Patient History Date of Service: 03/23/18 Reason for admission: Chest pain rule out acute coronary syndrome History of Present Illness: Patient is a 73-year-old female who is admitted to the hospital with chest pain. Pain was mainly in the sternal region with no radiation. Patient had been treated with nitro and aspirin in her symptoms resolved. However about 4 hrs later her pain returned. Patient was sent to the emergency room for further evaluation. In the ER patient had serial troponins which have been negative. Will reassess in the morning and if her troponins are negative she should be stable for discharge home. Patient has a history of CVA which left her with left-sided deficits. Patient has been non ambulatory since that time which was almost 2 years ago. Patient is doing better with therapy and is almost to the point were she is able to take a step. Patient is able to stand with assistance. Allergies iodine Allergy (Verified 12/22/16 01:47) Hives/Rash latex Allergy (Verified 12/22/16 01:47) Hives/Rash Latex, Natural Rubber Allergy (Verified 02/01/18 20:29) Itching/Hives/Rash morphine Allergy (Verified 12/22/16 01:47) Hives Penicillins Allergy (Verified 12/22/16 01:47) Hives/Rash haloperidol [From Haldol] Adverse Reaction (Verified 12/22/16 01:47) anxiety haloperidol lactate [From Haldol] Adverse Reaction (Verified 12/22/16 01:47) anxiety Home Medications: Carvedilol [Coreg*] 25 mg PO BID 01/13/14 Duloxetine HCl [Cymbalta] 1 cap PO DAILY 01/13/14 Montelukast Sodium 10 mg PO BEDTIME 12/22/16 Oxazepam 30 mg PO Q6HP PRN 12/22/16 Atorvastatin Calcium [Lipitor] 1 tab PO BEDTIME 02/01/18 Clopidogrel Bisulfate [Plavix*] 75 mg PO DAILY 02/01/18 Cyanocobalamin (Vitamin B-12) [Vitamin B-12] 1,000 mcg PO DAILY 02/01/18 Furosemide 1 tab PO DAILY 02/01/18 Hydrocodone Bit/Acetaminophen [Hydrocodon-Acetaminophn 10-325] 1 tab PO Q6H PRN 02/01/18 Melatonin 3 mg PO BEDTIME 02/01/18 traMADol HCL [Ultram*] 50 mg PO Q6H PRN #30 tab MDD 4 02/02/18 Acetaminophen 2 tab PO Q6HP PRN 03/24/18 L. Acidophilus/Pectin, [place] [Acidophilus Capsule] 1 cap PO DAILY 03/24/18 Nitroglycerin [Nitrostat] 0.4 mg SL SEECOM 03/24/18 Nystatin Powder [Mycostatin (Powder)*] 1 markie TOP BID 03/24/18 Omeprazole 20 mg PO DAILY 03/24/18 Polyethylene Glycol 3350 [Miralax] 17 gm PO PRN PRN 03/24/18 predniSONE [Prednisone] 2.5 mg PO TID 03/24/18 - Past Medical/Surgical History Has patient received pneumonia vaccine in the past: Yes Diabetic: No -: Hypertension -: COPD -: CHF -: Atrial fibrillation -: Depression with anxiety -: Morbid obesity -: Obstructive sleep apnea -: Lymphedema -: Hysterectomy -: Appendectomy -: Right knee replacement -: Left knee replacement Psychosocial/ Personal History: She is of 55 years, has 2 children, she does not work. She gets around in a wheelchair. - Family History Mother Notes: alzheimers - Social History Smoking Status: Former smoker Alcohol use: No CD- Drugs: No Caffeine use: No Review of Systems 10-point ROS is otherwise unremarkable Physical Examination - Vital Signs Temperature: 97.0 F Blood Pressure: 122/91 Pulse: 68 Respirations: 17 Pulse Ox (%): 98 - Physical Exam General: Alert, In no apparent distress, Oriented x3 HEENT: Atraumatic, PERRLA, Mucous membr. moist/pink, EOMI, Sclerae nonicteric Neck: Supple, 2+ carotid pulse no bruit, No LAD, Without JVD or thyroid abnormality Respiratory: Clear to auscultation bilaterally, Normal air movement Cardiovascular: Regular rate/rhythm, Normal S1 S2 Gastrointestinal: Normal bowel sounds, Soft and benign, Non-distended, No tenderness Musculoskeletal: No clubbing, No swelling, No tenderness Integumentary: No rashes Neurological: Normal gait, Normal speech, Normal tone, Sensation intact, Cranial nerves 3-12 intact, Normal affect, Abnormal strength (On the left lower extremity is 4-over 5) Lymphatics: No axilla or inguinal lymphadenopathy - Studies Laboratory Data (last 24 hrs) 03/23/18 21:02: PT 11.5, INR 0.97 03/23/18 21:02: Sodium 136, Potassium 4.5, BUN 27 H, Creatinine 1.00, Glucose 91 03/23/18 20:15: WBC 7.4, Hgb 14.3, Hct 42.5, Plt Count 160 Assessment & Plan - Problems (Diagnosis) (1) Chest pain, rule out acute myocardial infarction Current Visit: Yes Status: Acute (2) History of stroke Current Visit: Yes Status: Acute (3) CHF exacerbation Onset Date: 12/22/16 Current Visit: No Status: Acute (4) Sleep apnea Current Visit: No Status: Acute (5) Atrial fibrillation Onset Date: 07/22/16 Current Visit: No Status: Chronic Qualifiers: (6) Depression with anxiety Onset Date: 07/22/16 Current Visit: No Status: Chronic (7) Hypertension Onset Date: 07/22/16 Current Visit: No Status: Chronic Qualifiers: (8) Obesity Onset Date: 07/22/16 Current Visit: No Status: Chronic (9) Obstructive sleep apnea Onset Date: 07/22/16 Current Visit: No Status: Chronic - Plan 1. Serial troponins and EKG 2. Cardiology consultation as an outpatient 3. Recent cardiac workup has been unremarkable; conservative management 4. Anti-platelet therapy, anti coagulation, beta-joaquin, statin, and O2 as needed 5. IV morphine for pain 6. Nitro p.r.n. Discharge Plan: Correction Plan to discharge in: 24 Hours - Advance Directives Does patient have a Living Will: Yes Does patient have a Durable POA for Healthcare: Yes - Code Status/Comfort Care Code Status Assessed: Yes Code Status: Full Code Critical Care: No Time Spent Managing PTS Care (In Minutes): 55
[2018-03-24 08:50] VITALS: O2SAT 96
[2018-03-24] MEDS ORDERED: CLOPIDOGREL 75 MG TABLET PO SCH (09:00)
[2018-03-24] MEDS ORDERED: DULOXETINE 30 MG CAP PO SCH (09:00)
[2018-03-24] MEDS ORDERED: CEFTRIAXONE/SWI 1gm 1 GM/10 ML SYR IV SCH (09:00)
[2018-03-24] MEDS ORDERED: ASPIRIN EC 81 MG TAB PO SCH (09:00)
[2018-03-24] MEDS ORDERED: METOPROLOL TAR 50 MG TAB PO SCH (09:00)
[2018-03-24] MEDS ORDERED: ENOXAPARIN 40 MG/0.4 ML SQ SCH (09:00)
[2018-03-24] MEDS ORDERED: CARVEDILOL 6.25 MG TAB PO SCH (09:00)
[2018-03-24 12:29] VITALS: BP 116/58; TEMP 98
[2018-03-24] MEDS ORDERED: ATORVASTATIN 80 MG TAB PO SCH (21:00)
--- NOTE | 2018-03-26 05:24 | P.DS ---
Discharge Date: 03/24/18 Disposition: TRANSFER TO GROUP HOME Discharge Condition: GOOD Reason for Admission: Chest pain rule out acute coronary syndrome - Problems (1) Chest pain, rule out acute myocardial infarction Status: Acute (2) History of stroke Status: Acute (3) CHF exacerbation Onset Date: 12/22/16 Status: Acute (4) Sleep apnea Status: Acute (5) Atrial fibrillation Onset Date: 07/22/16 Status: Chronic Qualifiers: (6) Depression with anxiety Onset Date: 07/22/16 Status: Chronic (7) Hypertension Onset Date: 07/22/16 Status: Chronic Qualifiers: (8) Obesity Onset Date: 07/22/16 Status: Chronic (9) Obstructive sleep apnea Onset Date: 07/22/16 Status: Chronic Brief History of Present Illness: Patient is a 73-year-old female who is admitted to the hospital with chest pain. Pain was mainly in the sternal region with no radiation. Patient had been treated with nitro and aspirin in her symptoms resolved. However about 4 hrs later her pain returned. Patient was sent to the emergency room for further evaluation. In the ER patient had serial troponins which have been negative. Will reassess in the morning and if her troponins are negative she should be stable for discharge home. Patient has a history of CVA which left her with left-sided deficits. Patient has been non ambulatory since that time which was almost 2 years ago. Patient is doing better with therapy and is almost to the point were she is able to take a step. Patient is able to stand with assistance. Hospital Course: Patient's workup was unremarkable. Patient has serial troponins and EKG which did not reveal any abnormality. Patient is stable for discharge to senior care at this time. Patient will follow up as an outpatient with Cardiology in 2 -4 weeks. Vital Signs/Physical Exam: Temp Pulse Resp BP Pulse Ox 98.0 F 86 18 116/58 L 95 03/24/18 12:00 03/24/18 12:00 03/24/18 12:00 03/24/18 12:00 03/24/18 12:00 General: Alert, In no apparent distress, Oriented x3 Laboratory Data at Discharge: WBC 7.4 K/uL (4.3-10.9) 03/23/18 20:15 Hgb 14.3 g/dL (12.0-15.0) 03/23/18 20:15 Hct 42.5 % (36.0-45.0) 03/23/18 20:15 Plt Count 160 K/uL (152-406) 03/23/18 20:15 PT 11.5 SECONDS (9.5-12.5) 03/23/18 21:02 INR 0.97 03/23/18 21:02 Sodium 136 mmol/L (136-145) 03/23/18 21:02 Potassium 4.5 mmol/L (3.5-5.1) 03/23/18 21:02 BUN 27 mg/dL (7-18) H 03/23/18 21:02 Creatinine 1.00 mg/dL (0.55-1.3) 03/23/18 21:02 Glucose 91 mg/dL (74-106) 03/23/18 21:02 Troponin I < 0.02 ng/mL (0.0-0.045) 03/24/18 05:29 Triglycerides 53 mg/dL (<150) 03/24/18 05:29 Cholesterol 113 mg/dL (<200) 03/24/18 05:29 HDL Cholesterol 67 mg/dL (40-60) H 03/24/18 05:29 Cholesterol/HDL Ratio 1.69 03/24/18 05:29 Home Medications: Carvedilol [Coreg*] 25 mg PO BID 01/13/14 Duloxetine HCl [Cymbalta] 1 cap PO DAILY 01/13/14 Montelukast Sodium 10 mg PO BEDTIME 12/22/16 Atorvastatin Calcium [Lipitor] 1 tab PO BEDTIME 02/01/18 Clopidogrel Bisulfate [Plavix*] 75 mg PO DAILY 02/01/18 Cyanocobalamin (Vitamin B-12) [Vitamin B-12] 1,000 mcg PO DAILY 02/01/18 Furosemide 1 tab PO DAILY 02/01/18 Hydrocodone Bit/Acetaminophen [Hydrocodon-Acetaminophn 10-325] 1 tab PO Q6H PRN 02/01/18 Melatonin 3 mg PO BEDTIME 02/01/18 traMADol HCL [Ultram*] 50 mg PO Q6H PRN #30 tab MDD 4 02/02/18 Acetaminophen 2 tab PO Q6HP PRN 03/24/18 Cefdinir [Omnicef] 300 mg PO BID #14 capsule 03/24/18 L. Acidophilus/Pectin, [place] [Acidophilus Capsule] 1 cap PO DAILY 03/24/18 Nitroglycerin [Nitrostat*] 0.4 mg SL SEECOM 03/24/18 Nystatin Powder [Mycostatin (Powder)*] 1 markie TOP BID 03/24/18 Omeprazole 20 mg PO DAILY 03/24/18 Polyethylene Glycol 3350 [Miralax] 17 gm PO PRN PRN 03/24/18 New Medications: Cefdinir [Omnicef] 300 mg PO BID #14 capsule Patient Discharge Instructions: OK TO DC IV AND DC HOME. FOLLOW-UP WITH PRIMARY CARE PROVIDER IN 1-2 WEEKS. FOLLOW-UP WITH CARDIOLOGY IN 1-2 WEEKS. RETURN TO THE ER IF symptoms worsen. CALL or TEXT DR. MOSQUERA AT [phone] IF ANY QUESTIONS REGARDING HOSPITAL STAY. PLEASE CALL THE FLOOR AT [phone] IF ANY MEDICATION OR NURSING QUESTIONS. Diet: AHA Activity: Fall precautions Time spent managing pt's care (in minutes): 20
--- NOTE | 2018-03-26 07:01 | EKG ---
Test Date: 2018-03-23 Test Time: 19:58:55 Barrel Brander: SHAWN MEASUREMENT RESULTS: Intervals: Rate: 79 ND: QRSD: 88 QT: 372 QTc: 426 [place]: P: ND: QRS: 53 T: 100 INTERPRETIVE STATEMENTS: Atrial fibrillation Nonspecific ST and T wave abnormality Abnormal ECG Compared to ECG 01/31/2018 16:41:55 ST (T wave) deviation now present Myocardial infarct finding no longer present Electronically Signed On 03-26-18 07:00:28 CDT by Zay Marshall
== END 2018-03-24 11:38 ==
LOC: ER 19:56 → ERHOLD 22:24 → 2ND 22:51
PROVIDERS: ADMIT Hospitalist; ATTEND Hospitalist
DX: R07.9 Chest pain, unspecified (principal); I69.354 Hemiplegia and hemiparesis following cerebral infarction affecting left non-dominant side; I11.0 Hypertensive heart disease with heart failure; I50.9 Heart failure, unspecified; J44.9 Chronic obstructive pulmonary disease, unspecified; I48.91 Unspecified atrial fibrillation; E66.01 Morbid (severe) obesity due to excess calories; Z68.42 Body mass index [BMI] 45.0-49.9, adult; F41.8 Other specified anxiety disorders; G47.33 Obstructive sleep apnea (adult) (pediatric); Z96.653 Presence of artificial knee joint, bilateral; Z91.040 Latex allergy status; Z88.0 Allergy status to penicillin
CPT/HCPCS: 36415; 71045; 80048; 80061; 81003; 81015; 84484; 85025; 85610; 87077; 87086; 87088; 87186; 93005; 99285; G0378; J0696; J1650

== ENCOUNTER 2018-09-21 20:01 | Emergency (ER) | payer OTHER ==
--- OUTSIDE RECORDS SUMMARY | 2018-09-21 20:03 | XMS REPORT | Clinical Summary ---
:[address] [facility] Address [address] [place] [address] Care Team Providers Name Role Phone Unavailable Primary Care Provider Unavailable Allergies Active Allergy Reactions Severity Noted Date Comments Aspirin (Tartrazine 12/25/2016 Only) Haloperidol Anxiety Low 12/25/2016 Haloperidol Lactate Anxiety Low 12/26/2016 Iodine Itching, Swelling 12/26/2016 IV IODINE ONLY Iodine And Iodide Hives, Rash Low 12/25/2016 Containing Products Latex Hives, Itching, Rash Low 12/25/2016 Morphine Hives, Anxiety, Other Low 12/25/2016 High blood pressure (See Comments) Penicillins Hives, Rash, Swelling Low 12/25/2016 Pregabalin Anxiety Low 12/26/2016 Medications Medication Sig Dispensed Refills Start Date End Date Status DULoxetine (CYMBALTA) Take 120 mg by 0 Active 60 MG capsule mouth daily. gabapentin Take 600 mg by 0 Active (NEURONTIN) 600 MG mouth 4 (four) tablet times daily. ferrous sulfate 325 Take 325 mg by 0 Active (65 FE) MG tablet mouth daily with breakfast. montelukast Take 10 mg by 0 Active (SINGULAIR) 10 mg mouth nightly. tablet oxazepam (SERAX) 30 Take 30 mg by 0 Active MG capsule mouth 4 (four) times daily. budesonide-formoterol Inhale 2 puffs 0 Active (SYMBICORT) 160-4.5 by mouth via mcg/actuation inhaler inhaler 2 (two) times daily. zolpidem (AMBIEN) 10 Take 10 mg by 0 Active mg tablet mouth every night as [...] 01/02/2017 Leucocytosis 12/31/2016 Hypercalcemia 12/29/2016 Morbid obesity 12/29/2016 Hyponatremia 12/26/2016 Atrial fibrillation 12/26/2016 Congestive heart failure (CHF) 12/26/2016 Acute right MCA stroke 12/25/2016 Social History Tobacco Use Types Packs/Day Years Used Date Never Smoker Alcohol Use Drinks/Week oz/Week Comments No Sex Assigned at Date Recorded Not on file Job Start Date Occupation Industry Not on file Not on file Not on file Travel History Travel Start Travel End No recent travel history available. Last Filed Vital Signs Not on file Plan of Treatment Not on file Results Not on fileafter 09/20/2017 Insurance Payer Benefit Plan / Group Subscriber ID Type Phone Address MEDICARE MEDICARE A B xxxxxxxxxx Medicare MCR SUPPLEMENT/[employer] xxxxxxxx [facility] Advance Directives For more information, please contact:[address] [phone] Code Status Date Activated Date Inactivated Comments Full Code 12/25/2016 5:53 PM 2017 7:51 PM This code status was determined by: Patient
--- OUTSIDE RECORDS SUMMARY | 2018-09-21 20:04 | XMS REPORT ---
:1945 [facility] Address [address] [place] [address] Care Team Providers Name Role Phone SAMMYDEVYNMichelleCECYNAYANDILAN [...] CREATININE CLEARANCE (BEAKER) (test 47.2 mL/min 70.0-140.0 ojnn=905) VOLUME, TOTAL (BEAKER) (test 1050 ml uciq=9933) CREATININE URINE (BEAKER) (test 78.9 mg/dL ifpf=472) AASH-ABQOQQLSQWC-238 (BEAKER) (test Linda Pitts MD (electronic wqcw=7957) signature) POCT-GLUCOSE [id number] 11:37:00 Test Item Value Reference Range Comments POC-GLUCOSE METER (BEAKER) 128 mg/dL 70-110 TESTED AT [facility] [address] [place] [address] (test yldv=0764) [place] [address] URINE [id number] 11:02:00 Test Item Value Reference Range Comments CULTURE (BEAKER) (test ajgx=5883) <10,000 col/mL skin jayshree POCT-GLUCOSE [id number] 06:28:00 Test Item Value Reference Range Comments POC-GLUCOSE METER (BEAKER) 101 mg/dL 70-110 TESTED AT [facility] [address] [facility] (test hnxi=6742) [facility] [address] POCT-GLUCOSE [id number] 00:46:00 Test Item Value Reference Range Comments POC-GLUCOSE METER (BEAKER) 130 mg/dL 70-110 TESTED AT [address] (test nfpf=1579) [place] [id number] POCT-GLUCOSE [id number] 20:21:00 Test Item Value Reference Range Comments POC-GLUCOSE METER (BEAKER) 133 mg/dL 70-110 TESTED AT [address] (test gfev=3542) [place] [address] [id number] 18:44:00 Test Item Value Reference Range Comments CREATININE (BEAKER) (test 0.82 mg/dL 0.57-1.25 faeg=092) EGFR (BEAKER) (test 69 mL/min/1.73 sq m ESTIMATED GFR IS NOT shjx=7900) ACCURATE CREATININE CLEARANCE IN PREDICTING GLOMERULAR FILTRATION RATE. ESTIMATED GFR IS NOT APPLICABLE FOR DIALYSIS PATIENTS. POCT-GLUCOSE [id number] 17:11:00 Test Item Value Reference Range Comments POC-GLUCOSE METER (BEAKER) 118 mg/dL 70-110 TESTED AT [address] (test gpix=0605) [place] [id number] POCT-GLUCOSE [id number] 15:29:00 Test Item Value Reference Range Comments POC-GLUCOSE METER (BEAKER) 63 mg/dL 70-110 Notified CICI COTO/TESTED AT [facility] (test xvou=7076) [address] [place] [address] POCT-GLUCOSE [id number] 15:03:00 Test Item Value Reference Range Comments POC-GLUCOSE METER (BEAKER) 51 mg/dL 70-110 Notified CICI COTO/TESTED AT [facility] (test kbxt=3959) [address] [place], [place] [id number] POCT-GLUCOSE [id number] 11:28:00 Test Item Value Reference Range Comments POC-GLUCOSE METER (BEAKER) 75 mg/dL 70-110 TESTED AT [address] (test zqmf=1295) [place] [address] CALCIUM, 24 HOUR [id number] 09:19:00 Test Item Value Reference Range Comments VOLUME, TOTAL (BEAKER) (test zsni=3280) 1050 ml CALCIUM URINE (BEAKER) (test urgz=147) 15.4 mg/dL CALCIUM, 24HR URINE (BEAKER) (test eooh=6680) 162 mg/24 Hr 50-300 VITAMIN D, [id number] 07:18:00 Test Item Value Reference Range Comments VITAMIN D 25-OH (BEAKER) (test hxgb=9899) < ng/mL 13.0-47.8 CBC W/PLT COUNT & AUTO [id number] 07:04:00 Test Item Value Reference Range Comments WHITE BLOOD CELL COUNT (BEAKER) (test btzs=210) 13.3 K/ L 4.0-10.0 RED BLOOD CELL COUNT (BEAKER) (test zjmd=520) 3.79 M/ L 4.00-5.00 HEMOGLOBIN (BEAKER) (test evda=223) 12.3 GM/DL 12.0-15.0 HEMATOCRIT (BEAKER) (test hexh=929) 37.1 % 36.0-45.0 MEAN CORPUSCULAR VOLUME (BEAKER) (test ecop=455) 98.1 fL 82.0-99.0 MEAN CORPUSCULAR HEMOGLOBIN (BEAKER) (test 32.4 pg 27.0-33.0 cbbd=424) MEAN CORPUSCULAR HEMOGLOBIN CONC (BEAKER) (test 33.0 GM/DL 32.0-36.0 viyf=276) RED CELL DISTRIBUTION WIDTH (BEAKER) (test 15.2 % 10.3-14.2 alkf=070) PLATELET COUNT (BEAKER) (test iitv=852) 218 K/CU MM 150-430 MEAN PLATELET VOLUME (BEAKER) (test jnbw=779) 7.3 fL 6.5-10.5 NUCLEATED RED BLOOD CELLS (BEAKER) (test 0 /100 WBC 0-0 rwgr=362) NEUTROPHILS RELATIVE PERCENT (BEAKER) (test 79 % lpav=279) LYMPHOCYTES RELATIVE PERCENT (BEAKER) (test 16 % hvao=997) MONOCYTES RELATIVE PERCENT (BEAKER) (test 5 % yucf=968) EOSINOPHILS RELATIVE PERCENT (BEAKER) (test 1 % elkc=811) BASOPHILS RELATIVE PERCENT (BEAKER) (test 0 % agiy=144) NEUTROPHILS ABSOLUTE COUNT (BEAKER) (test 10.40 K/ L 1.80-8.00 gtyx=329) LYMPHOCYTES ABSOLUTE COUNT (BEAKER) (test 2.05 K/ L 1.48-4.50 lhfl=079) MONOCYTES ABSOLUTE COUNT (BEAKER) (test 0.69 K/ L 0.00-1.30 ypbb=475) EOSINOPHILS ABSOLUTE COUNT (BEAKER) (test 0.09 K/ L 0.00-0.50 poog=039) BASOPHILS ABSOLUTE COUNT (BEAKER) (test 0.01 K/ L 0.00-0.20 cycp=369) 0.00BASIC METABOLIC [id number] 07:01:00 Test Item Value Reference Range Comments SODIUM (BEAKER) (test 142 meq/L 136-145 yxfs=840) POTASSIUM (BEAKER) (test 3.7 meq/L 3.5-5.1 glre=254) CHLORIDE (BEAKER) (test 104 meq/L 98-107 juyj=649) CO2 (BEAKER) (test 27 meq/L 22-29 qfko=876) BLOOD UREA NITROGEN 35 mg/dL 7-21 (BEAKER) (test baoj=449) CREATININE (BEAKER) (test 0.86 mg/dL 0.57-1.25 ekry=893) GLUCOSE RANDOM (BEAKER) 144 mg/dL 70-105 (test zsvi=849) CALCIUM (BEAKER) (test 11.6 mg/dL 8.4-10.2 exbj=365) EGFR (BEAKER) (test 65 mL/min/1.73 sq m ESTIMATED GFR IS NOT kcjj=0346) ACCURATE CREATININE CLEARANCE IN PREDICTING GLOMERULAR FILTRATION RATE. ESTIMATED GFR IS NOT APPLICABLE FOR DIALYSIS PATIENTS. [id number] 06:57:00 Test Item Value Reference Range Comments PHOSPHORUS (BEAKER) (test rgwx=814) 3.0 mg/dL 2.3-4.7 [id number] 06:57:00 Test Item Value Reference Range Comments MAGNESIUM (BEAKER) (test owkn=795) 2.2 mg/dL 1.6-2.6 [id number] 06:34:00 Test Item Value Reference Range Comments ALBUMIN (BEAKER) (test dhdf=0288) 3.8 g/dL 3.5-5.0 POCT-GLUCOSE [id number] 06:32:00 Test Item Value Reference Range Comments POC-GLUCOSE METER (BEAKER) 104 mg/dL 70-110 TESTED AT [address] (test apag=8437) [facility] [address] POCT-GLUCOSE [id number] 23:41:00 Test Item Value Reference Range Comments POC-GLUCOSE METER (BEAKER) 108 mg/dL 70-110 TESTED AT [address] (test fxgk=8819) [place] [address] POCT-GLUCOSE [id number] 17:58:00 Test Item Value Reference Range Comments POC-GLUCOSE METER (BEAKER) 112 mg/dL 70-110 TESTED AT [address] (test vcrh=4394) [place] [address] URINALYSIS W/ REFLEX URINE [id number] 16:02:00 Test Item Value Reference Range Comments COLOR (BEAKER) (test ylue=420) Yellow CLARITY (BEAKER) (test nakd=433) Clear SPECIFIC GRAVITY UA (BEAKER) (test gwzb=606) 1.015 1.001-1.035 PH UA (BEAKER) (test qfwr=353) 6.0 5.0-8.0 PROTEIN UA (BEAKER) (test cejw=686) Negative Negative GLUCOSE UA (BEAKER) (test xuyj=971) Negative Negative KETONES UA (BEAKER) (test vekl=193) Negative Negative BILIRUBIN UA (BEAKER) (test ayhv=164) Negative Negative BLOOD UA (BEAKER) (test ixbl=188) Negative Negative NITRITE UA (BEAKER) (test ejwd=766) Negative Negative LEUKOCYTE ESTERASE UA (BEAKER) (test zgyr=877) Moderate Negative UROBILINOGEN UA (BEAKER) (test gsxg=616) 0.2 mg/dL 0.2-1.0 RBC UA (BEAKER) (test nkbt=738) 10 /HPF WBC UA (BEAKER) (test gabq=767) 29 /HPF MUCUS (BEAKER) (test xjgi=1796) Few SQUAMOUS EPITHELIAL (BEAKER) (test crqg=204) 1 /HPF HYALINE CASTS (BEAKER) (test xaub=759) 2 /LPF SOURCE(BEAKER) (test dvtg=7737) POCT-GLUCOSE [id number] 12:49:00 Test Item Value Reference Range Comments POC-GLUCOSE METER (BEAKER) 79 mg/dL 70-110 TESTED AT [address] (test kdwb=1651) [place] [id number] CBC W/PLT COUNT & AUTO [id number] 09:59:00 Test Item Value Reference Range Comments WHITE BLOOD CELL COUNT (BEAKER) (test pyfi=706) 17.0 K/ L 4.0-10.0 RED BLOOD CELL COUNT (BEAKER) (test quak=420) 3.96 M/ L 4.00-5.00 HEMOGLOBIN (BEAKER) (test idzq=163) 12.1 GM/DL 12.0-15.0 HEMATOCRIT (BEAKER) (test qtik=996) 39.2 % 36.0-45.0 MEAN CORPUSCULAR VOLUME (BEAKER) (test qxsb=719) 99.0 fL 82.0-99.0 MEAN CORPUSCULAR HEMOGLOBIN (BEAKER) (test 30.5 pg 27.0-33.0 tkfr=221) MEAN CORPUSCULAR HEMOGLOBIN CONC (BEAKER) (test 30.8 GM/DL 32.0-36.0 dtdm=915) RED CELL DISTRIBUTION WIDTH (BEAKER) (test 15.5 % 10.3-14.2 vehd=561) PLATELET COUNT (BEAKER) (test lkit=557) 219 K/CU MM 150-430 MEAN PLATELET VOLUME (BEAKER) (test jjet=365) 7.3 fL 6.5-10.5 NUCLEATED RED BLOOD CELLS (BEAKER) (test 0 /100 WBC 0-0 oour=684) NEUTROPHILS RELATIVE PERCENT (BEAKER) (test 80 % qzyh=213) LYMPHOCYTES RELATIVE PERCENT (BEAKER) (test 14 % vofj=953) MONOCYTES RELATIVE PERCENT (BEAKER) (test 6 % lssz=530) EOSINOPHILS RELATIVE PERCENT (BEAKER) (test 1 % vywx=964) BASOPHILS RELATIVE PERCENT (BEAKER) (test 0 % ncez=907) NEUTROPHILS ABSOLUTE COUNT (BEAKER) (test 13.60 K/ L 1.80-8.00 fmii=361) LYMPHOCYTES ABSOLUTE COUNT (BEAKER) (test 2.32 K/ L 1.48-4.50 lcyn=020) MONOCYTES ABSOLUTE COUNT (BEAKER) (test 0.97 K/ L 0.00-1.30 fupo=022) EOSINOPHILS ABSOLUTE COUNT (BEAKER) (test 0.10 K/ L 0.00-0.50 fgmh=177) BASOPHILS ABSOLUTE COUNT (BEAKER) (test 0.01 K/ L 0.00-0.20 eddl=090) 0.000.510.000.000.000.00(MANUAL DIFFERENTIAL)2017-01-01 09:59:00 Test Item Value Reference Range Comments TOTAL COUNTED (BEAKER) (test ilbc=3665) WBC MORPHOLOGY (BEAKER) (test exrr=214) Normal PLT MORPHOLOGY (BEAKER) (test dvav=402) Normal RBC MORPHOLOGY (BEAKER) (test fzli=886) Normal POCT-GLUCOSE [id number] 06:20:00 Test Item Value Reference Range Comments POC-GLUCOSE METER (BEAKER) 140 mg/dL 70-110 TESTED AT [facility] [address] [facility] (test aqsi=2781) [facility] [address] [id number] 06:11:00 Test Item Value Reference Range Comments ALBUMIN (BEAKER) (test 3.2 g/dL 3.5-5.0 Specimen moderately hemolyzed ugde=8502) BASIC METABOLIC [id number] 06:00:00 Test Item Value Reference Range Comments SODIUM (BEAKER) (test 143 meq/L 136-145 zrsz=076) POTASSIUM (BEAKER) (test 3.8 meq/L 3.5-5.1 yjnz=388) CHLORIDE (BEAKER) (test 102 meq/L 98-107 aehx=863) CO2 (BEAKER) (test 31 meq/L 22-29 cnly=301) BLOOD UREA NITROGEN 33 mg/dL 7-21 (BEAKER) (test usjp=097) CREATININE (BEAKER) (test 0.89 mg/dL 0.57-1.25 wckc=675) GLUCOSE RANDOM (BEAKER) 145 mg/dL 70-105 (test msra=419) CALCIUM (BEAKER) (test 11.6 mg/dL 8.4-10.2 ldmi=940) EGFR (BEAKER) (test 63 mL/min/1.73 sq m ESTIMATED GFR IS NOT abyr=5434) ACCURATE CREATININE CLEARANCE IN PREDICTING GLOMERULAR FILTRATION RATE. ESTIMATED GFR IS NOT APPLICABLE FOR DIALYSIS PATIENTS. [id number] 05:59:00 Test Item Value Reference Range Comments PHOSPHORUS (BEAKER) (test rbmu=469) 3.1 mg/dL 2.3-4.7 [id number] 05:59:00 Test Item Value Reference Range Comments MAGNESIUM (BEAKER) (test jkuq=661) 2.0 mg/dL 1.6-2.6 POCT-GLUCOSE [id number] 23:38:00 Test Item Value Reference Range Comments POC-GLUCOSE METER (BEAKER) 156 mg/dL 70-110 TESTED AT [address] (test btdj=3339) [facility] [address] POCT-GLUCOSE [id number] 18:18:00 Test Item Value Reference Range Comments POC-GLUCOSE METER (BEAKER) 110 mg/dL 70-110 TESTED AT [address] (test zpcv=8082) [place] [address] POCT-GLUCOSE [id number] 11:44:00 Test Item Value Reference Range Comments POC-GLUCOSE METER (BEAKER) 79 mg/dL 70-110 TESTED AT [address] (test qbvm=3517) [place] [address] CBC W/PLT COUNT & AUTO [id number] 11:03:00 Test Item Value Reference Range Comments WHITE BLOOD CELL COUNT (BEAKER) (test lwvl=721) 13.9 K/ L 4.0-10.0 RED BLOOD CELL COUNT (BEAKER) (test wusf=326) 3.86 M/ L 4.00-5.00 HEMOGLOBIN (BEAKER) (test xsnp=051) 12.4 GM/DL 12.0-15.0 HEMATOCRIT (BEAKER) (test vhdz=160) 37.7 % 36.0-45.0 MEAN CORPUSCULAR VOLUME (BEAKER) (test kzdo=695) 97.5 fL 82.0-99.0 MEAN CORPUSCULAR HEMOGLOBIN (BEAKER) (test 32.2 pg 27.0-33.0 vdnf=235) MEAN CORPUSCULAR HEMOGLOBIN CONC (BEAKER) (test 33.0 GM/DL 32.0-36.0 zbrs=442) RED CELL DISTRIBUTION WIDTH (BEAKER) (test 16.4 % 10.3-14.2 zckx=341) PLATELET COUNT (BEAKER) (test jcel=557) 248 K/CU MM 150-430 MEAN PLATELET VOLUME (BEAKER) (test usot=068) 7.1 fL 6.5-10.5 NUCLEATED RED BLOOD CELLS (BEAKER) (test 0 /100 WBC 0-0 iuli=372) NEUTROPHILS RELATIVE PERCENT (BEAKER) (test 81 % zmxm=196) LYMPHOCYTES RELATIVE PERCENT (BEAKER) (test 12 % hkor=920) MONOCYTES RELATIVE PERCENT (BEAKER) (test 6 % ndbb=482) EOSINOPHILS RELATIVE PERCENT (BEAKER) (test 1 % hoxe=490) BASOPHILS RELATIVE PERCENT (BEAKER) (test 0 % slii=159) NEUTROPHILS ABSOLUTE COUNT (BEAKER) (test 11.30 K/ L 1.80-8.00 wdva=083) LYMPHOCYTES ABSOLUTE COUNT (BEAKER) (test 1.62 K/ L 1.48-4.50 bihi=143) MONOCYTES ABSOLUTE COUNT (BEAKER) (test 0.84 K/ L 0.00-1.30 oqtg=451) EOSINOPHILS ABSOLUTE COUNT (BEAKER) (test 0.15 K/ L 0.00-0.50 uduq=089) BASOPHILS ABSOLUTE COUNT (BEAKER) (test 0.03 K/ L 0.00-0.20 wdzb=853) 0.000.520.000.000.000.000.000.000.00(MANUAL DIFFERENTIAL)2016-12-31 11:03:00 Test Item Value Reference Range Comments TOTAL COUNTED (BEAKER) (test bnzv=2243) WBC MORPHOLOGY (BEAKER) (test vnvg=171) Normal PLT MORPHOLOGY (BEAKER) (test jfho=271) Normal RBC MORPHOLOGY (BEAKER) (test ptmm=106) Normal POCT-GLUCOSE [id number] 06:21:00 Test Item Value Reference Range Comments POC-GLUCOSE METER (BEAKER) 152 mg/dL 70-110 TESTED AT [facility] [address] [place] [address] (test vbyh=1405) [facility] [address] BASIC METABOLIC [id number] 06:04:00 Test Item Value Reference Range Comments SODIUM (BEAKER) (test 142 meq/L 136-145 kjkr=434) POTASSIUM (BEAKER) (test 3.8 meq/L 3.5-5.1 zgek=186) CHLORIDE (BEAKER) (test 102 meq/L 98-107 xixc=078) CO2 (BEAKER) (test 29 meq/L 22-29 otst=936) BLOOD UREA NITROGEN 34 mg/dL 7-21 (BEAKER) (test axnh=461) CREATININE (BEAKER) (test 0.85 mg/dL 0.57-1.25 pxxb=809) GLUCOSE RANDOM (BEAKER) 151 mg/dL 70-105 (test vfjw=849) CALCIUM (BEAKER) (test 11.7 mg/dL 8.4-10.2 drhe=964) EGFR (BEAKER) (test 66 mL/min/1.73 sq m ESTIMATED GFR IS NOT oleu=8624) ACCURATE CREATININE CLEARANCE IN PREDICTING GLOMERULAR FILTRATION RATE. ESTIMATED GFR IS NOT APPLICABLE FOR DIALYSIS PATIENTS. [id number] 05:56:00 Test Item Value Reference Range Comments PHOSPHORUS (BEAKER) (test zpmg=797) 3.5 mg/dL 2.3-4.7 [id number] 05:56:00 Test Item Value Reference Range Comments MAGNESIUM (BEAKER) (test oouu=943) 1.9 mg/dL 1.6-2.6 POCT-GLUCOSE [id number] 23:51:00 Test Item Value Reference Range Comments POC-GLUCOSE METER (BEAKER) 168 mg/dL 70-110 TESTED AT [address] (test ntcm=4813) [facility] [address] POCT-GLUCOSE [id number] 18:34:00 Test Item Value Reference Range Comments POC-GLUCOSE METER (BEAKER) 80 mg/dL 70-110 TESTED AT [address] (test tuky=0199) [facility] [address] POCT-GLUCOSE [id number] 16:09:00 Test Item Value Reference Range Comments POC-GLUCOSE METER (BEAKER) 83 mg/dL 70-110 TESTED AT [address] (test xirk=4326) [facility] [address] POCT-GLUCOSE [id number] 16:09:00 Test Item Value Reference Range Comments POC-GLUCOSE METER (BEAKER) 41 mg/dL 70-110 TESTED AT [address] (test rtuu=1783) [facility] [address] POCT-GLUCOSE [id number] 15:20:00 Test Item Value Reference Range Comments POC-GLUCOSE METER (BEAKER) 44 mg/dL 70-110 TESTED AT [address] (test bvkp=9249) [facility] [address] POCT-GLUCOSE [id number] 08:27:00 Test Item Value Reference Range Comments POC-GLUCOSE METER (BEAKER) 114 mg/dL 70-110 TESTED AT [address] (test xvfm=2507) [facility] [address] POCT-GLUCOSE [id number] 08:27:00 Test Item Value Reference Range Comments POC-GLUCOSE METER (BEAKER) 35 mg/dL 70-110 TESTED AT [facility] [address] (test oweq=7036) [place] [address] CBC W/PLT COUNT & AUTO [id number] 07:04:00 Test Item Value Reference Range Comments WHITE BLOOD CELL COUNT (BEAKER) (test iccf=442) 8.2 K/ L 4.0-10.0 RED BLOOD CELL COUNT (BEAKER) (test rqtb=427) 4.05 M/ L 4.00-5.00 HEMOGLOBIN (BEAKER) (test oupu=264) 12.8 GM/DL 12.0-15.0 HEMATOCRIT (BEAKER) (test fkjq=123) 39.2 % 36.0-45.0 MEAN CORPUSCULAR VOLUME (BEAKER) (test ubym=927) 97.0 fL 82.0-99.0 MEAN CORPUSCULAR HEMOGLOBIN (BEAKER) (test 31.7 pg 27.0-33.0 uets=528) MEAN CORPUSCULAR HEMOGLOBIN CONC (BEAKER) (test 32.7 GM/DL 32.0-36.0 bvln=207) RED CELL DISTRIBUTION WIDTH (BEAKER) (test 15.6 % 10.3-14.2 neni=318) PLATELET COUNT (BEAKER) (test oxne=651) 275 K/CU MM 150-430 MEAN PLATELET VOLUME (BEAKER) (test mpks=066) 6.9 fL 6.5-10.5 NUCLEATED RED BLOOD CELLS (BEAKER) (test 0 /100 WBC 0-0 hvgn=489) NEUTROPHILS RELATIVE PERCENT (BEAKER) (test 63 % xrkk=836) LYMPHOCYTES RELATIVE PERCENT (BEAKER) (test 27 % soga=289) MONOCYTES RELATIVE PERCENT (BEAKER) (test 7 % hpxa=666) EOSINOPHILS RELATIVE PERCENT (BEAKER) (test 2 % chyg=232) BASOPHILS RELATIVE PERCENT (BEAKER) (test 1 % usle=572) NEUTROPHILS ABSOLUTE COUNT (BEAKER) (test 5.13 K/ L 1.80-8.00 rxiz=890) LYMPHOCYTES ABSOLUTE COUNT (BEAKER) (test 2.21 K/ L 1.48-4.50 eoaf=048) MONOCYTES ABSOLUTE COUNT (BEAKER) (test 0.59 K/ L 0.00-1.30 tenx=064) EOSINOPHILS ABSOLUTE COUNT (BEAKER) (test 0.18 K/ L 0.00-0.50 rehw=206) BASOPHILS ABSOLUTE COUNT (BEAKER) (test 0.10 K/ L 0.00-0.20 khwj=518) 0.00POCT-GLUCOSE [id number] 06:20:00 Test Item Value Reference Range Comments POC-GLUCOSE METER (BEAKER) 62 mg/dL 70-110 Notified CICI COTO/TESTED AT [facility] (test ezvs=9326) [address] [place] [address] BASIC METABOLIC [id number] 06:13:00 Test Item Value Reference Range Comments SODIUM (BEAKER) (test 141 meq/L 136-145 quta=247) POTASSIUM (BEAKER) (test 4.3 meq/L 3.5-5.1 hbyf=859) CHLORIDE (BEAKER) (test 99 meq/L 98-107 hxxo=047) CO2 (BEAKER) (test 33 meq/L 22-29 khrn=883) BLOOD UREA NITROGEN 36 mg/dL 7-21 (BEAKER) (test xcax=415) CREATININE (BEAKER) (test 0.93 mg/dL 0.57-1.25 xcyl=644) GLUCOSE RANDOM (BEAKER) 107 mg/dL 70-105 (test wfkx=584) CALCIUM (BEAKER) (test 11.9 mg/dL 8.4-10.2 mvmj=583) EGFR (BEAKER) (test 59 mL/min/1.73 sq m ESTIMATED GFR IS NOT rsfu=8097) ACCURATE CREATININE CLEARANCE IN PREDICTING GLOMERULAR FILTRATION RATE. ESTIMATED GFR IS NOT APPLICABLE FOR DIALYSIS PATIENTS. [id number] 06:10:00 Test Item Value Reference Range Comments PHOSPHORUS (BEAKER) (test eles=922) 3.5 mg/dL 2.3-4.7 [id number] 06:10:00 Test Item Value Reference Range Comments MAGNESIUM (BEAKER) (test hehm=846) 2.2 mg/dL 1.6-2.6 PROTHROMBIN [id number] 06:05:00 Test Item Value Reference Range Comments PROTIME (BEAKER) (test ouzd=004) 15.5 seconds 11.7-14.7 INR (BEAKER) (test vovy=265) 1.2 <=5.9 RECOMMENDED COUMADIN/WARFARIN INR THERAPY RANGESSTANDARD DOSE: 2.0 - 3.0 Includes: PROPHYLAXIS forvenous thrombosis, systemic embolization; TREATMENT for venous thrombosis and/or pulmonary embolus.HIGH RISK: Target INR is 2.5-3.5 for patients with mechanical heart valves.POCT-GLUCOSE [id number] 23:58:00 Test Item Value Reference Range Comments POC-GLUCOSE METER (BEAKER) 108 mg/dL 70-110 TESTED AT [address] (test teot=4027) [place] [id number] POCT-GLUCOSE [id number] 18:02:00 Test Item Value Reference Range Comments POC-GLUCOSE METER (BEAKER) 126 mg/dL 70-110 TESTED AT [address] (test hraj=5340) [place] [address] PTH, [id number] 14:50:00 Test Item Value Reference Range Comments PARATHYROID HORMONE INTACT (BEAKER) (test 274.9 pg/mL 8.5-72.5 xsda=657) Effective 08/19/2014: Reference Range ChangeNew: 8.5-72.5 Previous: 15.0- 90.0POCT-GLUCOSE [id number] 13:33:00 Test Item Value Reference Range Comments POC-GLUCOSE METER (BEAKER) 145 mg/dL 70-110 TESTED AT [address] (test sdpm=0775) [place] [id number] CBC W/PLT COUNT & AUTO [id number] 08:35:00 Test Item Value Reference Range Comments WHITE BLOOD CELL COUNT (BEAKER) (test rjym=371) 10.2 K/ L 4.0-10.0 RED BLOOD CELL COUNT (BEAKER) (test skuk=112) 3.96 M/ L 4.00-5.00 HEMOGLOBIN (BEAKER) (test vaaf=201) 12.8 GM/DL 12.0-15.0 HEMATOCRIT (BEAKER) (test ouva=170) 38.7 % 36.0-45.0 MEAN CORPUSCULAR VOLUME (BEAKER) (test cqsd=379) 97.7 fL 82.0-99.0 MEAN CORPUSCULAR HEMOGLOBIN (BEAKER) (test 32.2 pg 27.0-33.0 hzln=301) MEAN CORPUSCULAR HEMOGLOBIN CONC (BEAKER) (test 33.0 GM/DL 32.0-36.0 kjpt=710) RED CELL DISTRIBUTION WIDTH (BEAKER) (test 16.7 % 10.3-14.2 wnua=674) PLATELET COUNT (BEAKER) (test bldn=591) 279 K/CU MM 150-430 MEAN PLATELET VOLUME (BEAKER) (test banx=740) 6.7 fL 6.5-10.5 NUCLEATED RED BLOOD CELLS (BEAKER) (test 0 /100 WBC 0-0 dhzb=630) NEUTROPHILS RELATIVE PERCENT (BEAKER) (test 70 % fcki=996) LYMPHOCYTES RELATIVE PERCENT (BEAKER) (test 22 % pslm=943) MONOCYTES RELATIVE PERCENT (BEAKER) (test 7 % nffi=038) EOSINOPHILS RELATIVE PERCENT (BEAKER) (test 2 % gzbx=506) BASOPHILS RELATIVE PERCENT (BEAKER) (test 0 % zvib=927) NEUTROPHILS ABSOLUTE COUNT (BEAKER) (test 7.11 K/ L 1.80-8.00 blgr=079) LYMPHOCYTES ABSOLUTE COUNT (BEAKER) (test 2.19 K/ L 1.48-4.50 qmsi=981) MONOCYTES ABSOLUTE COUNT (BEAKER) (test 0.70 K/ L 0.00-1.30 fkwd=208) EOSINOPHILS ABSOLUTE COUNT (BEAKER) (test 0.18 K/ L 0.00-0.50 qeqp=328) BASOPHILS ABSOLUTE COUNT (BEAKER) (test 0.02 K/ L 0.00-0.20 xkfz=675) 0.000.500.000.000.000.000.000.000.000.000.000.000.000.000.000.000.00(MANUAL DIFFERENTIAL)2016-12-29 08:35:00 Test Item Value Reference Range Comments TOTAL COUNTED (BEAKER) (test hvwu=9539) BASIC METABOLIC [id number] 06:00:00 Test Item Value Reference Range Comments SODIUM (BEAKER) (test 141 meq/L 136-145 onnc=326) POTASSIUM (BEAKER) (test 4.3 meq/L 3.5-5.1 Specimen slightly tvtz=247) hemolyzed CHLORIDE (BEAKER) (test 100 meq/L 98-107 hfsm=199) CO2 (BEAKER) (test 29 meq/L 22-29 lefa=402) BLOOD UREA NITROGEN 34 mg/dL 7-21 (BEAKER) (test krjk=268) CREATININE (BEAKER) (test 0.91 mg/dL 0.57-1.25 Specimen slightly uypc=040) hemolyzed GLUCOSE RANDOM (BEAKER) 110 mg/dL 70-105 (test lsvp=107) CALCIUM (BEAKER) (test 12.0 mg/dL 8.4-10.2 bqle=847) EGFR (BEAKER) (test 61 mL/min/1.73 sq m ESTIMATED GFR IS NOT vxig=6269) ACCURATE CREATININE CLEARANCE IN PREDICTING GLOMERULAR FILTRATION RATE. ESTIMATED GFR IS NOT APPLICABLE FOR DIALYSIS PATIENTS. [id number] 05:59:00 Test Item Value Reference Range Comments MAGNESIUM (BEAKER) (test 2.4 mg/dL 1.6-2.6 Specimen slightly hemolyzed cvva=495) [id number] 05:59:00 Test Item Value Reference Range Comments PHOSPHORUS (BEAKER) (test 3.1 mg/dL 2.3-4.7 Specimen slightly hemolyzed wcht=168) POCT-GLUCOSE [id number] 05:32:00 Test Item Value Reference Range Comments POC-GLUCOSE METER (BEAKER) 114 mg/dL 70-110 TESTED AT [address] (test kvkf=9383) [place] [id number] POCT-GLUCOSE [id number] 00:02:00 Test Item Value Reference Range Comments POC-GLUCOSE METER (BEAKER) 106 mg/dL 70-110 TESTED AT [address] (test tutn=1511) [place] [id number] POCT-GLUCOSE [id number] 18:28:00 Test Item Value Reference Range Comments POC-GLUCOSE METER (BEAKER) 150 mg/dL 70-110 TESTED AT [address] (test qvnn=8480) [place] [address] POCT-GLUCOSE [id number] 12:31:00 Test Item Value Reference Range Comments POC-GLUCOSE METER (BEAKER) 152 mg/dL 70-110 TESTED AT [address] (test tfqy=4554) [place] [id number] POCT-GLUCOSE [id number] 05:41:00 Test Item Value Reference Range Comments POC-GLUCOSE METER (BEAKER) 120 mg/dL 70-110 TESTED AT [address] (test vech=8252) [place] [id number] CBC W/PLT COUNT & AUTO [id number] 05:00:00 Test Item Value Reference Range Comments WHITE BLOOD CELL COUNT (BEAKER) (test wpve=046) 8.8 K/ L 4.0-10.0 RED BLOOD CELL COUNT (BEAKER) (test agfg=021) 3.76 M/ L 4.00-5.00 HEMOGLOBIN (BEAKER) (test eqyy=578) 11.3 GM/DL 12.0-15.0 HEMATOCRIT (BEAKER) (test sust=390) 35.7 % 36.0-45.0 MEAN CORPUSCULAR VOLUME (BEAKER) (test pyfl=036) 95.1 fL 82.0-99.0 MEAN CORPUSCULAR HEMOGLOBIN (BEAKER) (test 30.2 pg 27.0-33.0 ggyl=178) MEAN CORPUSCULAR HEMOGLOBIN CONC (BEAKER) (test 31.7 GM/DL 32.0-36.0 crrl=497) RED CELL DISTRIBUTION WIDTH (BEAKER) (test 15.5 % 10.3-14.2 ecan=416) PLATELET COUNT (BEAKER) (test icqd=830) 259 K/CU MM 150-430 MEAN PLATELET VOLUME (BEAKER) (test oncf=424) 6.3 fL 6.5-10.5 NUCLEATED RED BLOOD CELLS (BEAKER) (test 0 /100 WBC 0-0 wuuy=735) NEUTROPHILS RELATIVE PERCENT (BEAKER) (test 72 % yavw=911) LYMPHOCYTES RELATIVE PERCENT (BEAKER) (test 20 % dokm=152) MONOCYTES RELATIVE PERCENT (BEAKER) (test 6 % qkcn=900) EOSINOPHILS RELATIVE PERCENT (BEAKER) (test 1 % ibfi=007) BASOPHILS RELATIVE PERCENT (BEAKER) (test 0 % sqzu=207) NEUTROPHILS ABSOLUTE COUNT (BEAKER) (test 6.39 K/ L 1.80-8.00 ewzd=013) LYMPHOCYTES ABSOLUTE COUNT (BEAKER) (test 1.75 K/ L 1.48-4.50 brag=311) MONOCYTES ABSOLUTE COUNT (BEAKER) (test 0.57 K/ L 0.00-1.30 xcui=049) EOSINOPHILS ABSOLUTE COUNT (BEAKER) (test 0.11 K/ L 0.00-0.50 akeg=005) BASOPHILS ABSOLUTE COUNT (BEAKER) (test 0.02 K/ L 0.00-0.20 ygdg=586) 0.00BASIC METABOLIC [id number] 04:58:00 Test Item Value Reference Range Comments SODIUM (BEAKER) (test 142 meq/L 136-145 lhhe=816) POTASSIUM (BEAKER) (test 3.6 meq/L 3.5-5.1 Specimen slightly irvc=299) hemolyzed CHLORIDE (BEAKER) (test 98 meq/L 98-107 viqb=914) CO2 (BEAKER) (test 32 meq/L 22-29 bmha=410) BLOOD UREA NITROGEN 32 mg/dL 7-21 (BEAKER) (test cslm=499) CREATININE (BEAKER) (test 0.92 mg/dL 0.57-1.25 Specimen slightly lrmo=210) hemolyzed GLUCOSE RANDOM (BEAKER) 134 mg/dL 70-105 (test bgjm=166) CALCIUM (BEAKER) (test 11.5 mg/dL 8.4-10.2 xlsq=570) EGFR (BEAKER) (test 60 mL/min/1.73 sq m ESTIMATED GFR IS NOT brob=4712) ACCURATE CREATININE CLEARANCE IN PREDICTING GLOMERULAR FILTRATION RATE. ESTIMATED GFR IS NOT APPLICABLE FOR DIALYSIS PATIENTS. [id number] 04:57:00 Test Item Value Reference Range Comments MAGNESIUM (BEAKER) (test 2.5 mg/dL 1.6-2.6 Specimen slightly hemolyzed rymt=632) [id number] 04:57:00 Test Item Value Reference Range Comments PHOSPHORUS (BEAKER) (test 3.3 mg/dL 2.3-4.7 Specimen slightly hemolyzed msam=431) POCT-GLUCOSE [id number] 00:44:00 Test Item Value Reference Range Comments POC-GLUCOSE METER (BEAKER) 142 mg/dL 70-110 TESTED AT [address] (test lejk=2918) [facility] [address] POCT-GLUCOSE [id number] 18:34:00 Test Item Value Reference Range Comments POC-GLUCOSE METER (BEAKER) 115 mg/dL 70-110 TESTED AT [address] (test gjbk=1698) [facility] [address] POCT-GLUCOSE [id number] 12:21:00 Test Item Value Reference Range Comments POC-GLUCOSE METER (BEAKER) 123 mg/dL 70-110 TESTED AT [address] (test nlht=7370) [place] [address] URINE [id number] 10:42:00 Test Item Value Reference Range Comments CULTURE (BEAKER) (test jwwr=2258) No growth [id number] 06:53:00 Test Item Value Reference Range Comments POTASSIUM (BEAKER) (test xozx=986) 3.6 meq/L 3.5-5.1 Check Serum Potassium level 2 hours after oral potassium replacement completed or 30 min after intravenous potassium replacement.[id number] 06:53:00 Test Item Value Reference Range Comments MAGNESIUM (BEAKER) (test kaso=132) 2.7 mg/dL 1.6-2.6 Check Serum Potassium level 2 hours after oral potassium replacement completed or 30 min after intravenous potassium replacement.POCT-GLUCOSE [id number] 06:27:00 Test Item Value Reference Range Comments POC-GLUCOSE METER (BEAKER) 113 mg/dL 70-110 TESTED AT [address] (test trlj=3400) [place] [address] BASIC METABOLIC [id number] 02:30:00 Test Item Value Reference Range Comments SODIUM (BEAKER) (test 139 meq/L 136-145 ifti=015) POTASSIUM (BEAKER) (test 3.8 meq/L 3.5-5.1 gazj=927) CHLORIDE (BEAKER) (test 95 meq/L 98-107 slws=183) CO2 (BEAKER) (test 30 meq/L 22-29 ezks=585) BLOOD UREA NITROGEN 24 mg/dL 7-21 (BEAKER) (test dbqw=586) CREATININE (BEAKER) (test 0.96 mg/dL 0.57-1.25 vgrm=271) GLUCOSE RANDOM (BEAKER) 122 mg/dL 70-105 (test qyiu=810) CALCIUM (BEAKER) (test 11.6 mg/dL 8.4-10.2 jyex=810) EGFR (BEAKER) (test 57 mL/min/1.73 sq m ESTIMATED GFR IS NOT utdu=5815) ACCURATE CREATININE CLEARANCE IN PREDICTING GLOMERULAR FILTRATION RATE. ESTIMATED GFR IS NOT APPLICABLE FOR DIALYSIS PATIENTS. [id number] 02:29:00 Test Item Value Reference Range Comments PHOSPHORUS (BEAKER) (test obal=979) 3.5 mg/dL 2.3-4.7 [id number] 02:29:00 Test Item Value Reference Range Comments MAGNESIUM (BEAKER) (test bvhr=324) 2.2 mg/dL 1.6-2.6 [id number] 02:29:00 Test Item Value Reference Range Comments SODIUM (BEAKER) (test ajlx=272) 139 meq/L 136-145 CBC W/PLT COUNT & AUTO [id number] 02:21:00 Test Item Value Reference Range Comments WHITE BLOOD CELL COUNT (BEAKER) (test wvjc=167) 6.2 K/ L 4.0-10.0 RED BLOOD CELL COUNT (BEAKER) (test oagt=818) 3.77 M/ L 4.00-5.00 HEMOGLOBIN (BEAKER) (test fjxm=408) 11.8 GM/DL 12.0-15.0 HEMATOCRIT (BEAKER) (test jpyu=894) 36.1 % 36.0-45.0 MEAN CORPUSCULAR VOLUME (BEAKER) (test xeix=259) 95.9 fL 82.0-99.0 MEAN CORPUSCULAR HEMOGLOBIN (BEAKER) (test 31.3 pg 27.0-33.0 ybcp=752) MEAN CORPUSCULAR HEMOGLOBIN CONC (BEAKER) (test 32.6 GM/DL 32.0-36.0 zhrh=341) RED CELL DISTRIBUTION WIDTH (BEAKER) (test 16.7 % 10.3-14.2 wlhz=114) PLATELET COUNT (BEAKER) (test naji=865) 247 K/CU MM 150-430 MEAN PLATELET VOLUME (BEAKER) (test dzju=886) 6.3 fL 6.5-10.5 NUCLEATED RED BLOOD CELLS (BEAKER) (test 0 /100 WBC 0-0 yhvr=020) NEUTROPHILS RELATIVE PERCENT (BEAKER) (test 73 % pyjx=701) LYMPHOCYTES RELATIVE PERCENT (BEAKER) (test 19 % iqxx=229) MONOCYTES RELATIVE PERCENT (BEAKER) (test 8 % lrec=900) EOSINOPHILS RELATIVE PERCENT (BEAKER) (test 0 % jxez=585) BASOPHILS RELATIVE PERCENT (BEAKER) (test 0 % vxso=721) NEUTROPHILS ABSOLUTE COUNT (BEAKER) (test 4.53 K/ L 1.80-8.00 hhhy=359) LYMPHOCYTES ABSOLUTE COUNT (BEAKER) (test 1.16 K/ L 1.48-4.50 zawc=222) MONOCYTES ABSOLUTE COUNT (BEAKER) (test 0.47 K/ L 0.00-1.30 ekuo=076) EOSINOPHILS ABSOLUTE COUNT (BEAKER) (test 0.02 K/ L 0.00-0.50 wfxi=783) BASOPHILS ABSOLUTE COUNT (BEAKER) (test 0.00 K/ L 0.00-0.20 dxrr=569) 0.00POCT-GLUCOSE [id number] 00:44:00 Test Item Value Reference Range Comments POC-GLUCOSE METER (BEAKER) 121 mg/dL 70-110 TESTED AT [address] (test ikax=1404) [facility] [address] [id number] 20:34:00 Test Item Value Reference Range Comments SODIUM (BEAKER) (test kibg=325) 138 meq/L 136-145 HEPATIC FUNCTION [id number] 20:34:00 Test Item Value Reference Range Comments TOTAL PROTEIN (BEAKER) (test ravu=988) 6.7 gm/dL 6.0-8.3 ALBUMIN (BEAKER) (test jtwn=0469) 3.6 g/dL 3.5-5.0 BILIRUBIN TOTAL (BEAKER) (test lfuo=045) 0.3 mg/dL 0.2-1.2 BILIRUBIN DIRECT (BEAKER) (test gpmr=864) 0.2 mg/dL 0.1-0.5 ALKALINE PHOSPHATASE (BEAKER) (test jkcp=019) 148 U/L 40-150 AST (SGOT) (BEAKER) (test clhu=609) 15 U/L 5-34 ALT (SGPT) (BEAKER) (test erap=897) 15 U/L 6-55 [id number] 20:25:00 Test Item Value Reference Range Comments AMMONIA (BEAKER) (test bwew=511) 30 mol/L 18-72 POCT-GLUCOSE [id number] 19:58:00 Test Item Value Reference Range Comments POC-GLUCOSE METER (BEAKER) 125 mg/dL 70-110 TESTED AT [address] (test wmlj=0288) [facility] [address] [id number] 14:30:00 Test Item Value Reference Range Comments RPR SCREEN (BEAKER) (test peti=365) Nonreactive Nonreactive [id number] 13:35:00 Test Item Value Reference Range Comments SODIUM (BEAKER) (test fbed=639) 136 meq/L 136-145 [id number] 13:23:00 Test Item Value Reference Range Comments CORTISOL, TOTAL (BEAKER) (test znbn=0236) 11.7 ug/dL 3.7-19.4 POCT-GLUCOSE [id number] 13:22:00 Test Item Value Reference Range Comments POC-GLUCOSE METER (BEAKER) 117 mg/dL 70-110 TESTED AT [facility] [address] [facility] (test spzl=6843) [facility] [address] B-TYPE NATRIURETIC FACTOR (BNP)2016-12-26 11:55:00 Test Item Value Reference Range Comments B-TYPE NATRIURETIC PEPTIDE (BEAKER) (test 115 pg/mL 0-100 lvnd=951) [id number] 11:43:00 Test Item Value Reference Range Comments MAGNESIUM (BEAKER) (test 2.5 mg/dL 1.6-2.6 Specimen slightly hemolyzed pyuz=263) OSMOLALITY, [id number] 04:32:00 Test Item Value Reference Range Comments OSMOLALITY, SERUM (BEAKER) (test ozji=975) 303 mOsm/kg 275-295 LIPID [id number] 04:04:00 Test Item Value Reference Range Comments TRIGLYCERIDES (BEAKER) (test asbl=573) 94 mg/dL CHOLESTEROL (BEAKER) (test ebwa=673) 197 mg/dL HDL CHOLESTEROL (BEAKER) (test ymjs=857) 54 mg/dL LDL CHOLESTEROL CALCULATED (BEAKER) (test 124 mg/dL ezdz=710) Triglyceride Reference Range: Low Risk <150 Borderline 150- 199 High Risk 200-499 Very High Risk >=500Cholesterol Reference Range: Low Risk <200 Borderline 200-239 High Risk > 240HDL Cholesterol Reference Range: Low Risk >=60 High Risk <40LDL Cholesterol Reference Range: Optimal <100 Near Optimal 100-129 Borderline 130-159 High 160-189 Very High >=190 [id number] 04:03:00 Test Item Value Reference Range Comments PHOSPHORUS (BEAKER) (test ofqi=789) 3.2 mg/dL 2.3-4.7 BASIC METABOLIC [id number] 04:03:00 Test Item Value Reference Range Comments SODIUM (BEAKER) (test 130 meq/L 136-145 ddhy=622) POTASSIUM (BEAKER) (test 4.0 meq/L 3.5-5.1 nlfc=745) CHLORIDE (BEAKER) (test 89 meq/L 98-107 fsve=077) CO2 (BEAKER) (test 30 meq/L 22-29 kcxq=020) BLOOD UREA NITROGEN 24 mg/dL 7-21 (BEAKER) (test evdj=479) CREATININE (BEAKER) (test 0.96 mg/dL 0.57-1.25 vten=315) GLUCOSE RANDOM (BEAKER) 111 mg/dL 70-105 (test kpvq=835) CALCIUM (BEAKER) (test 11.1 mg/dL 8.4-10.2 fhav=378) EGFR (BEAKER) (test 57 mL/min/1.73 sq m ESTIMATED GFR IS NOT sqnd=8612) ACCURATE CREATININE CLEARANCE IN PREDICTING GLOMERULAR FILTRATION RATE. ESTIMATED GFR IS NOT APPLICABLE FOR DIALYSIS PATIENTS. CBC W/PLT COUNT & AUTO [id number] 03:43:00 Test Item Value Reference Range Comments WHITE BLOOD CELL COUNT (BEAKER) (test oqgs=354) 6.9 K/ L 4.0-10.0 RED BLOOD CELL COUNT (BEAKER) (test xfix=242) 3.81 M/ L 4.00-5.00 HEMOGLOBIN (BEAKER) (test tfsf=836) 12.0 GM/DL 12.0-15.0 HEMATOCRIT (BEAKER) (test izgv=933) 35.6 % 36.0-45.0 MEAN CORPUSCULAR VOLUME (BEAKER) (test oyql=480) 93.4 fL 82.0-99.0 MEAN CORPUSCULAR HEMOGLOBIN (BEAKER) (test 31.4 pg 27.0-33.0 hnru=882) MEAN CORPUSCULAR HEMOGLOBIN CONC (BEAKER) (test 33.6 GM/DL 32.0-36.0 ieri=031) RED CELL DISTRIBUTION WIDTH (BEAKER) (test 15.4 % 10.3-14.2 mbid=367) PLATELET COUNT (BEAKER) (test tsno=248) 250 K/CU MM 150-430 MEAN PLATELET VOLUME (BEAKER) (test npqd=909) 6.0 fL 6.5-10.5 NUCLEATED RED BLOOD CELLS (BEAKER) (test 0 /100 WBC 0-0 qpdk=727) NEUTROPHILS RELATIVE PERCENT (BEAKER) (test 67 % anxa=696) LYMPHOCYTES RELATIVE PERCENT (BEAKER) (test 20 % dptx=569) MONOCYTES RELATIVE PERCENT (BEAKER) (test 12 % ppmb=011) EOSINOPHILS RELATIVE PERCENT (BEAKER) (test 1 % jmiy=599) BASOPHILS RELATIVE PERCENT (BEAKER) (test 0 % dmed=407) NEUTROPHILS ABSOLUTE COUNT (BEAKER) (test 4.64 K/ L 1.80-8.00 svyu=698) LYMPHOCYTES ABSOLUTE COUNT (BEAKER) (test 1.38 K/ L 1.48-4.50 ucuw=874) MONOCYTES ABSOLUTE COUNT (BEAKER) (test 0.81 K/ L 0.00-1.30 jxfe=635) EOSINOPHILS ABSOLUTE COUNT (BEAKER) (test 0.05 K/ L 0.00-0.50 ondn=384) BASOPHILS ABSOLUTE COUNT (BEAKER) (test 0.03 K/ L 0.00-0.20 sduu=733) [id number] 01:55:00 Test Item Value Reference Range Comments POTASSIUM (BEAKER) (test qccq=487) 3.2 meq/L 3.5-5.1 [id number] 01:55:00 Test Item Value Reference Range Comments MAGNESIUM (BEAKER) (test lgul=976) 1.7 mg/dL 1.6-2.6 TROPONIN [id number] 01:21:00 Test Item Value Reference Range Comments TROPONIN I (BEAKER) (test occf=266) 0.01 ng/mL 0.00-0.03 Effective 08/19/2014: Reference Range [...] acidosis, acute neurological disease, and persistent tachyarrhythmia.POCT-GLUCOSE [id number] 01:03:00 Test Item Value Reference Range Comments POC-GLUCOSE METER (BEAKER) 161 mg/dL 70-110 TESTED AT [facility] [address] (test oket=7861) [facility] [address] POCT-GLUCOSE [id number] 00:22:00 Test Item Value Reference Range Comments POC-GLUCOSE METER (BEAKER) 62 mg/dL 70-110 Notified CICI COTO/TESTED AT [facility] (test gkzg=6631) [address] [facility] [address] HEMOGLOBIN [id number] 22:44:00 Test Item Value Reference Range Comments HEMOGLOBIN A1C (BEAKER) (test dglg=774) 5.0 % 4.3-6.1 TSH/FREE T4 IF [id number] 21:14:00 Test Item Value Reference Range Comments THYROID STIMULATING HORMONE (BEAKER) (test 2.66 uIU/mL 0.35-4.94 yghn=815) VITAMIN B12 AND [id number] 21:14:00 Test Item Value Reference Range Comments VITAMIN B12 (BEAKER) (test qqpk=796) 325 pg/mL 213-816 FOLATE (BEAKER) (test ofgz=938) 11.9 ng/mL >=7.0 Effective 08/19/2014: Folate Reference Range ChangeNew: >=7.0 Previous: & gt;=5.4CBC W/PLT COUNT & AUTO [id number] 19:39:00 Test Item Value Reference Range Comments WHITE BLOOD CELL COUNT (BEAKER) (test etud=129) 5.3 K/ L 4.0-10.0 RED BLOOD CELL COUNT (BEAKER) (test ubin=051) 3.72 M/ L 4.00-5.00 HEMOGLOBIN (BEAKER) (test vsuk=941) 11.6 GM/DL 12.0-15.0 HEMATOCRIT (BEAKER) (test ljex=697) 35.0 % 36.0-45.0 MEAN CORPUSCULAR VOLUME (BEAKER) (test sahk=557) 94.2 fL 82.0-99.0 MEAN CORPUSCULAR HEMOGLOBIN (BEAKER) (test 31.3 pg 27.0-33.0 wzex=916) MEAN CORPUSCULAR HEMOGLOBIN CONC (BEAKER) (test 33.2 GM/DL 32.0-36.0 eadr=380) RED CELL DISTRIBUTION WIDTH (BEAKER) (test 16.5 % 10.3-14.2 fele=427) PLATELET COUNT (BEAKER) (test bxvj=372) 220 K/CU MM 150-430 MEAN PLATELET VOLUME (BEAKER) (test xqkn=448) 6.2 fL 6.5-10.5 NUCLEATED RED BLOOD CELLS (BEAKER) (test 0 /100 WBC 0-0 jtfk=379) NEUTROPHILS RELATIVE PERCENT (BEAKER) (test 73 % qkui=932) LYMPHOCYTES RELATIVE PERCENT (BEAKER) (test 17 % jfej=070) MONOCYTES RELATIVE PERCENT (BEAKER) (test 9 % idlo=511) EOSINOPHILS RELATIVE PERCENT (BEAKER) (test 0 % cvsz=568) BASOPHILS RELATIVE PERCENT (BEAKER) (test 0 % tekr=208) NEUTROPHILS ABSOLUTE COUNT (BEAKER) (test 3.85 K/ L 1.80-8.00 xvhe=015) LYMPHOCYTES ABSOLUTE COUNT (BEAKER) (test 0.91 K/ L 1.48-4.50 dmex=843) MONOCYTES ABSOLUTE COUNT (BEAKER) (test 0.49 K/ L 0.00-1.30 whto=457) EOSINOPHILS ABSOLUTE COUNT (BEAKER) (test 0.02 K/ L 0.00-0.50 fmue=591) BASOPHILS ABSOLUTE COUNT (BEAKER) (test 0.01 K/ L 0.00-0.20 npue=763) 0.00TROPONIN [id number] 19:31:00 Test Item Value Reference Range Comments TROPONIN I (BEAKER) (test onvq=767) < ng/mL 0.00-0.03 Effective 08/19/2014: Reference Range [...] Range Comments B-TYPE NATRIURETIC PEPTIDE (BEAKER) (test cgal=365) 90 pg/mL 0-100 LIPID [id number] 19:24:00 Test Item Value Reference Range Comments TRIGLYCERIDES (BEAKER) (test jdqb=499) 83 mg/dL CHOLESTEROL (BEAKER) (test clrj=995) 198 mg/dL HDL CHOLESTEROL (BEAKER) (test npap=607) 54 mg/dL LDL CHOLESTEROL CALCULATED (BEAKER) (test 127 mg/dL gmus=181) Triglyceride Reference Range: Low Risk <150 Borderline 150- 199 High Risk 200-499 Very High Risk >=500Cholesterol Reference Range: Low Risk <200 Borderline 200-239 High Risk > 240HDL Cholesterol Reference Range: Low Risk >=60 High Risk <40LDL Cholesterol Reference Range: Optimal <100 Near Optimal 100-129 Borderline 130-159 High 160-189 Very High >=190BASIC METABOLIC [id number] 19:24:00 Test Item Value Reference Range Comments SODIUM (BEAKER) (test 133 meq/L 136-145 uttd=118) POTASSIUM (BEAKER) (test 3.7 meq/L 3.5-5.1 zerw=878) CHLORIDE (BEAKER) (test 90 meq/L 98-107 znqm=570) CO2 (BEAKER) (test 31 meq/L 22-29 wydv=906) BLOOD UREA NITROGEN 25 mg/dL 7-21 (BEAKER) (test oiei=365) CREATININE (BEAKER) (test 0.83 mg/dL 0.57-1.25 ijff=162) GLUCOSE RANDOM (BEAKER) 126 mg/dL 70-105 (test oklu=565) CALCIUM (BEAKER) (test 11.0 mg/dL 8.4-10.2 phbz=375) EGFR (BEAKER) (test 68 mL/min/1.73 sq m ESTIMATED GFR IS NOT jqiz=8439) ACCURATE CREATININE CLEARANCE IN PREDICTING GLOMERULAR FILTRATION RATE. ESTIMATED GFR IS NOT APPLICABLE FOR DIALYSIS PATIENTS. PROTHROMBIN TIME/[id number] 19:17:00 Test Item Value Reference Range Comments PROTIME (BEAKER) (test cqds=688) 14.1 seconds 11.7-14.7 INR (BEAKER) (test zqlv=627) 1.1 <=5.9 RECOMMENDED COUMADIN/WARFARIN INR THERAPY RANGESSTANDARD DOSE: 2.0 - 3.0 Includes: PROPHYLAXIS forvenous thrombosis, systemic embolization; TREATMENT for venous thrombosis and/or pulmonary embolus.HIGH RISK: Target INR is 2.5-3.5 for patients with mechanical heart valves.[id number] 19:17:00 Test Item Value Reference Range Comments PARTIAL THROMBOPLASTIN TIME (BEAKER) (test 24.9 seconds 22.5-36.0 javo=765) URINALYSIS W/ [id number] 19:15:00 Test Item Value Reference Range Comments COLOR (BEAKER) (test fnyu=764) Yellow CLARITY (BEAKER) (test nekd=641) Clear SPECIFIC GRAVITY UA (BEAKER) (test owbg=637) 1.009 1.001-1.035 PH UA (BEAKER) (test eont=655) 7.0 5.0-8.0 PROTEIN UA (BEAKER) (test pxfx=963) Negative Negative GLUCOSE UA (BEAKER) (test ecgn=184) Negative Negative KETONES UA (BEAKER) (test btdf=040) Negative Negative BILIRUBIN UA (BEAKER) (test wppx=824) Negative Negative BLOOD UA (BEAKER) (test hgem=438) Negative Negative NITRITE UA (BEAKER) (test ajtq=873) Negative Negative LEUKOCYTE ESTERASE UA (BEAKER) (test vzwm=015) Negative Negative UROBILINOGEN UA (BEAKER) (test gsnd=916) 0.2 mg/dL 0.2-1.0 RBC UA (BEAKER) (test xksw=133) < /HPF WBC UA (BEAKER) (test qpis=866) 1 /HPF SQUAMOUS EPITHELIAL (BEAKER) (test tzbz=444) < /HPF SOURCE(BEAKER) (test nixs=2263) Urine, Th[place] POCT-GLUCOSE [id number] 18:33:00 Test Item Value Reference Range Comments POC-GLUCOSE METER (BEAKER) 75 mg/dL 70-110 TESTED AT [facility] [address] (test hkuk=5100) [facility] [address]
[2018-09-21] MEDS ORDERED: FENTANYL CITR 100 MCG/2 ML ONE (20:29)
[2018-09-21] MEDS ORDERED: ONDANSETRON 4 MG/2 ML VIAL ONE (20:29)
--- NOTE | 2018-09-21 21:13 | RAD REPORT ---
EXAM DESCRIPTION: RAD - Pelvis - 09/21/2018 9:05 pm CLINICAL HISTORY: PAIN Fall from standing, trauma, pain COMPARISON: None FINDINGS: No acute fracture is seen. No dislocation evident. Moderate stool is seen in the rectum. IMPRESSION: No acute traumatic finding seen.
--- NOTE | 2018-09-21 21:14 | RAD REPORT ---
EXAM DESCRIPTION: RAD - Tib Fib Right - 09/21/2018 9:04 pm CLINICAL HISTORY: PAIN Trauma, fall, pain COMPARISON: No comparisons FINDINGS: A right total knee arthroplasty is visualized. The bones are osteopenic. No acute fracture identified. No knee joint effusion suspected.
--- NOTE | 2018-09-21 21:15 | RAD REPORT ---
EXAM DESCRIPTION: RAD - Femur Right - 09/21/2018 9:04 pm CLINICAL HISTORY: PAIN History of fall with pain COMPARISON: Femur Right dated 12/16/2014 FINDINGS: Right total knee arthroplasty is noted. No knee joint effusion seen. No acute fracture or dislocation is evident.
--- NOTE | 2018-09-21 21:38 | RAD REPORT ---
EXAM DESCRIPTION: RAD - Femur Left - 09/21/2018 9:29 pm CLINICAL HISTORY: PAIN Trauma, fall, pain COMPARISON: Femur Left dated 12/16/2014 FINDINGS: A fracture is seen involving the distal left femur near the femoral component of a left to nishant knee arthroplasty. The left hip is intact.
--- NOTE | 2018-09-21 21:40 | RAD REPORT ---
EXAM DESCRIPTION: RAD - Chest Single View - 09/21/2018 9:34 pm CLINICAL HISTORY: fall Chest pain. COMPARISON: Chest Single View dated 03/23/2018; Chest Single View dated 01/31/2018; Chest Single View d ated 03/07/2017; Chest Single View dated 12/25/2016 FINDINGS: Portable technique limits examination quality. The lungs are underinflated but grossly clear. The heart is normal in size. No displaced fractures.Ri ght-sided PICC line has tip in the SVC. IMPRESSION: No acute intrathoracic process suspected.
--- NOTE | 2018-09-21 21:53 | RAD REPORT ---
EXAM DESCRIPTION: RAD - Tib Fib Left - 09/21/2018 9:13 pm CLINICAL HISTORY: PAIN Trauma, pain COMPARISON: No comparisons FINDINGS: A fracture is seen in the left distal femur near the femoral component of a left total kne e arthroplasty. No dislocation seen.
--- NOTE | 2018-09-21 21:54 | RAD REPORT ---
EXAM DESCRIPTION: RAD - Wrist Right 3 View - 09/21/2018 9:48 pm CLINICAL HISTORY: fall;Pain Pain COMPARISON: No comparisons FINDINGS: Diffuse osteopenia is seen. No acute fracture or dislocation left wrist is seen.
--- NOTE | 2018-09-21 22:12 | RAD REPORT ---
EXAM DESCRIPTION: CT - Head C Spine Cap Wo Con - 09/21/2018 10:02 pm CLINICAL HISTORY: Trauma, head and neck injury. Chest, abdomen and pelvis pain. fall COMPARISON: Head Brain Wo Cont dated 04/24/2018; Head Brain Wo Cont dated 01/31/2018; Head C Spine Cap Wo Con dated 01/31/2018; Ct Stroke Brain Wo Cont dated 12/25/2016 TECHNIQUE: CT head without contrast. CT cervical spine without contrast with coronal and sagittal reformatted images. CT chest, abdomen and pelvis without contrast with coronal and sagittal reformatted images of the [facility] [place]. All CT scans are performed using dose optimization technique as appropriate and may include automated exposure control or mA/KV adjustment according to patient size. FINDINGS: CT HEAD WITHOUT CONTRAST: No intracranial hemorrhage, hydrocephalus or extra-axial fluid collection. 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 No areas of brain edema or midline shift. The paranasal sinuses and mastoids are clear. The calvarium is intact. CT CERVICAL SPINE WITHOUT CONTRAST: No fracture or subluxation. Moderate lower cervical degenerative change. The prevertebral soft tissue s are normal in thickness. CT CHEST, ABDOMEN, PELVIS WITHOUT CONTRAST: NOTE: Lack of contrast is a significant limitation in the assessment of trauma related findings. Spec ifically, solid organ, vascular and bowel evaluation is significantly limited. The lungs are clear.No pneumothorax or pericardial/pleural fluid. No evidence of intra-abdominal visceral injury, free fluid or free air is seen within the above detai led limitations. No concerning pelvic findings. Moderate lumbar degenerative changes. IMPRESSION: Negative for acute traumatic findings within the above detailed limitations.
[2018-09-21] MEDS ORDERED: HYDROMORPHONE HCL 1 MG/ML INJ ONE (22:39)
[2018-09-21 23:08] LABS: Urine Amorphous Sediment 2+ /HPF (NONE SEEN); Urine Bacteria >50 /HPF (<20); Urine Culture Reflex Order NOT NEEDED
--- NOTE | 2018-09-21 23:14 | ER ---
Nurse's Notes [facility] Name: Rocio Quiroz Age: 73 yrs Sex: Female : 1945 Arrival Date: 09/21/2018 Time: 20:02 Bed 6 Private MD: Ozzie Alicea A Diagnosis: Periprosthetic fracture distal left femur;Fall on same level from slipping, tripping and stumbling Presentation: 09/21 20:02 Presenting complaint: EMS states: Pt fell while trying to sit on shower chair at approx tl1 1500 today. In house X ray showed a distal femur fracture. Bruising noted to right wrist and pt reports pain. Pt is AOx4. Care prior to arrival: None. Mechanism of Injury: Fall from standing position. Trauma event details: Injury occurred in the [facility]. 20:02 Acuity: LINDSEY 2 tl1 20:02 Method Of Arrival: EMS: [facility] tl1 20:24 Transition of care: patient was received from another setting of care (long-term care 1 facility), [facility]. Onset of symptoms was September 21, 2018 at 15:00. Risk Assessment: Do you want to hurt yourself or someone else? Patient reports no desire to harm self or others. Initial Sepsis Screen: Does the patient meet any 2 criteria? No. Patient's initial sepsis screen is negative. Does the patient have a suspected source of infection? No. Patient's initial sepsis screen is negative. Trauma Activation: Alert Physician: ED Physician; Name: Paula Rosa; Notified At: 20:00; Arrived At: 20:00 Physician: General Surgeon; Name: ; Notified At: 20:00; Arrived At: Physician: Radiology; Name: Odette Oliveros; Notified At: 20:00; Arrived At: 20:00 Physician: Respiratory; Name: ; Notified At: 20:00; Arrived At: Physician: Lab; Name: ; Notified At: 20:00; Arrived At: Historical: - Allergies: 20:13 Aspirin; tl1 20:13 Haldol; tl1 20:13 Iodine; tl1 20:13 Latex, Natural Rubber; tl1 20:13 Morphine; tl1 20:13 PENICILLINS; tl1 - Home Meds: 20:13 acetaminophen 325 mg Oral tab 2 tabs for Fever [Active]; Acidophilus Oral cap [Active]; tl1 atorvastatin 40 mg Oral tab 1 tab once daily [Active]; clopidogrel 75 mg Oral tab 1 tab once daily [Active]; Coreg 25 mg Oral tab 1 tab 2 times per day [Active]; duloxetine 30 mg Oral cpDR 2 caps once daily [Active]; furosemide 40 mg Oral tab [Active]; hydrocodone-acetaminophen 10-325 mg Oral tab 1 tab every 6 hours for Pain [Active]; melatonin 3 mg Oral tab [Active]; Miralax 17 gram/dose Oral powd once daily [Active]; montelukast 10 mg Oral tab 1 tab once daily [Active]; omeprazole 20 mg Oral cpDR 1 cap once daily [Active]; oxazepam 30 mg Oral cap [Active]; prednisone 2.5 mg Oral tab 1 tab 3 times per day [Active]; tramadol 50 mg Oral tab 1 tab every 6 hours [Active]; Vitamin B-12 1,000 mcg Oral tab [Active]; - PMHx: 20:13 Anemia; Atrial Fib; Cerebral infarction; Sleep Apnea; vitamin d deficiency; tl1 - Immunization history: Last tetanus immunization: unknown. - Social history:: Smoking status: Patient/guardian denies using tobacco. - Ebola Screening: : No symptoms or risks identified at this time. Screenin:13 Abuse screen: Denies threats or abuse. Nutritional screening: No deficits noted. tl1 Tuberculosis screening: No symptoms or risk factors identified. Fall risk At risk due to injury, prior history of falls. 20:31 Fall Risk Fall in past 12 months (25 points). tl1 Primary Survey: 20:13 NO uncontrolled hemorrhage observed. A: The patient is alert. Airway: patent, No tl1 supplemental oxygen in use on arrival. Breathing/Chest: Respiratory pattern: regular, Respiratory effort: spontaneous, unlabored, Breath sounds: clear, Chest inspection: symmetrical rise and fall of the chest. Circulation: Heart tones present. Pulses: palpable . Skin color: pink, Skin temperature: warm, dry. Disability Alert. Exposure/Environment: There is no evidence of uncontrolled external bleeding. Obvious injury(ies) are noted at this time: bruising to right wrist. 22:28 Reassessment Airway Airway Patent Breathing/Chest Respiratory pattern Regular tl2 Respiratory effort Spontaneous Unlabored Breath sounds Clear Chest inspection Symmetrical Circulation Color [place] Disability Alert. Secondary Survey: 20:13 HEENT: No deficits noted. Gastrointestinal: No deficits noted. : No deficits noted. tl1 Musculoskeletal: Circulation, motion, and sensation intact. Range of motion: limited in right wrist and left leg Swelling present in right wrist. Assessment: 20:02 General: Appears in no apparent distress. uncomfortable, Behavior is calm, cooperative, tl1 appropriate for age. Pain: Complains of pain in left leg, right wrist Pain does not radiate. Pain currently is 8 out of 10 on a pain scale. Neuro: Level of Consciousness is awake, alert, obeys commands, Oriented to person, place, time, situation. Cardiovascular: Denies chest pain. Respiratory: Airway is patent Respiratory effort is even, unlabored, Respiratory pattern is regular, symmetrical. GI: No signs and/or symptoms were reported involving the gastrointestinal system. : No signs and/or symptoms were reported regarding the genitourinary system. Derm: Skin is pink, warm \T\ dry. Injury Description: Bruise sustained to right wrist is purple, was sustained 2-4 hours ago. 21:00 Reassessment: Patient appears in no apparent distress at this time. Patient and/or tl2 family updated on plan of care and expected duration. Pain level reassessed. Patient is alert, oriented x 3, equal unlabored respirations, skin warm/dry/pink. Pt out to xray. 22:26 Reassessment: Patient appears in no apparent distress at this time. Patient and/or tl2 family updated on plan of care and expected duration. Pain level reassessed. Patient is alert, oriented x 3, equal unlabored respirations, skin warm/dry/pink. Pt just returned from Xray, awaiting phlebotomy for blood draw. 23:12 Reassessment: we have been unable to obtain blood samples, Charge nurse at bedside with 2 US. Vital Signs: 20:13 BP 121 / 101; Pulse 115; Resp 20; Temp 98.7(O); Pulse Ox 98% on R/A; Weight 136.08 kg; tl1 Height 5 ft. 6 in. (167.64 cm); Pain 8/10; 22:26 BP 117 / 92; Pulse 116; Resp 20; Pulse Ox 98% on R/A; tl2 20:13 Body Mass Index 48.42 (136.08 kg, 167.64 cm) tl1 Amy Coma Score: 20:13 Eye Response: spontaneous(4). Verbal Response: oriented(5). Motor Response: obeys tl1 commands(6). Total: 15. 22:26 Eye Response: spontaneous(4). Verbal Response: oriented(5). Motor Response: obeys tl2 commands(6). Total: 15. Trauma Score (Adult): 20:13 Eye Response: spontaneous(1); Verbal Response: oriented(1); Motor Response: obeys tl1 commands(2); Systolic BP: > 89 mm Hg(4); Respiratory Rate: 10 to 29 per min(4); Matheson Score: 15; Trauma Score: 12 22:26 Eye Response: spontaneous(1); Verbal Response: oriented(1); Motor Response: obeys tl2 commands(2); Systolic BP: > 89 mm Hg(4); Respiratory Rate: 10 to 29 per min(4); Matheson Score: 15; Trauma Score: 12 ED Course: 20:02 Patient arrived in ED. am2 20:02 Ozzie Alicea MD is Private Physician. am2 20:04 Triage completed. tl1 20:05 Tayo Mitchell PA is PHCP. cp 20:05 Tayo Rosa MD is Attending Physician. cp 20:13 Patient has correct armband on for positive identification. Placed in gown. Bed in low tl1 position. Side rails up X2. 20:13 Patient maintains SpO2 saturation greater than 95% on room air. tl1 20:31 Thermoregulation: warm blanket given to patient. tl1 21:03 XRAY Pelvis In Process Unspecified. EDMS 21:03 XRAY Tib Fib RIGHT In Process Unspecified. EDMS 21:04 XRAY Chest (1 view) In Process Unspecified. EDMS 21:04 XRAY Femur LEFT In Process Unspecified. EDMS 21:04 XRAY Femur RIGHT In Process Unspecified. EDMS 21:14 XRAY Tib Fib LEFT In Process Unspecified. EDMS 21:14 XRAY Wrist RIGHT 3 view In Process Unspecified. EDMS 21:[address] vm2 22:03 CT Traumagram (Head C Spine CAP wo con) In Process Unspecified. EDMS 22:26 Accessed PICC line. Clean \T\ dry. Dressing intact. Good blood return. Flushes easily. tl2 22:30 called [facility] to initiate transfer. spoke with miguel spencer RN at 2230. 22:41 no doc to doc was done. miguel spencer gave administrative approval at [id number]. gm 23:40 dr rossi accepted patient. gm 23:41 patient going to [facility] ER. 23:59 No provider procedures requiring assistance completed. Patient transferred, IV remains tl2 in place. 09/22 00:01 Arm band placed on right wrist. tl2 Administered Medications: 09/21 20:25 Drug: fentaNYL (PF) 50 mcg Route: IVP; Infused Over: 2 mins; Site: PICC; tl2 21:00 Follow up: Response: No adverse reaction; Pain is unchanged, physician notified tl2 20:26 Drug: Zofran 4 mg Route: IVP; Infused Over: 2 mins; Site: PICC; tl2 21:00 Follow up: Response: No adverse reaction tl2 22:34 Drug: Dilaudid 1 mg Route: IVP; Infused Over: 2 mins; Site: PICC; tl2 23:30 Follow up: Response: No adverse reaction; Pain is decreased tl2 Output: 09/22 00:01 Urine: 200ml (Thapa); Total: 200ml. tl2 Outcome: 09/21 23:14 ER care complete, transfer ordered by . 23:59 Transferred by ground EMS to [facility], Transfer form completed. tl2 23:59 Condition: stable 23:59 Discharge instructions given to patient, family, Instructed on the need for transfer. 09/22 00:01 Patient's length of stay in the Emergency Department was greater than 2 hours. tl2 radiologyPatient's length of stay extended due to 00:03 Patient left the ED. tl2 Signatures: Dispatcher [employer] EDMS Lauren Camargo RN RN bb Lasagna, Tonya, RN RN tl1 Tayo Mitchell PA PA cp Knox, Taylor, RN RN tl2 Roxi Chauhan Odette Magaña 2 Lesvia Walls
--- NOTE | 2018-09-21 23:14 | EDPHYS ---
Physician Documentation [facility] Name: Rocio Quiroz Age: 73 yrs Sex: Female : 1945 Arrival Date: 09/21/2018 Time: 20:02 Bed 6 Private MD: Ozzie Alicea, A ED Physician Tayo Rosa HPI: 09/21 20:30 This 73 yrs old Female presents to ER via EMS with complaints of Fall Injury. cp 20:30 Details of fall: The patient fell from an upright position, while standing, and struck cp a tile surface. Onset: The symptoms/episode began/occurred today, at 15:00. Associated injuries: The patient sustained left hip, painful injury, right wrist, decreased range of motion, painful injury, left leg, painful injury. Historical: - Allergies: 20:13 Aspirin; tl1 20:13 Haldol; tl1 20:13 Iodine; tl1 20:13 Latex, Natural Rubber; tl1 20:13 Morphine; tl1 20:13 PENICILLINS; tl1 - Home Meds: 20:13 acetaminophen 325 mg Oral tab 2 tabs for Fever [Active]; Acidophilus Oral cap [Active]; tl1 atorvastatin 40 mg Oral tab 1 tab once daily [Active]; clopidogrel 75 mg Oral tab 1 tab once daily [Active]; Coreg 25 mg Oral tab 1 tab 2 times per day [Active]; duloxetine 30 mg Oral cpDR 2 caps once daily [Active]; furosemide 40 mg Oral tab [Active]; hydrocodone-acetaminophen 10-325 mg Oral tab 1 tab every 6 hours for Pain [Active]; melatonin 3 mg Oral tab [Active]; Miralax 17 gram/dose Oral powd once daily [Active]; montelukast 10 mg Oral tab 1 tab once daily [Active]; omeprazole 20 mg Oral cpDR 1 cap once daily [Active]; oxazepam 30 mg Oral cap [Active]; prednisone 2.5 mg Oral tab 1 tab 3 times per day [Active]; tramadol 50 mg Oral tab 1 tab every 6 hours [Active]; Vitamin B-12 1,000 mcg Oral tab [Active]; - PMHx: 20:13 Anemia; Atrial Fib; Cerebral infarction; Sleep Apnea; vitamin d deficiency; tl1 - Immunization history: Last tetanus immunization: unknown. - Social history:: Smoking status: Patient/guardian denies using tobacco. - Ebola Screening: : No symptoms or risks identified at this time. ROS: 20:35 Constitutional: Negative for body aches, chills, fever, poor PO intake. cp 20:35 Eyes: Negative for injury, pain, redness, and discharge. cp 20:35 ENT: Negative for drainage from ear(s), ear pain, sore throat, difficulty swallowing, difficulty handling secretions. 20:35 Cardiovascular: Negative for chest pain. 20:35 Respiratory: Negative for cough, shortness of breath, wheezing. 20:35 Abdomen/GI: Negative for abdominal pain, nausea, vomiting, and diarrhea. 20:35 MS/extremity: Positive for injury or acute deformity, pain, tenderness, of the right wrist and left knee. 20:35 Skin: Negative for cellulitis, rash. 20:35 Neuro: Negative for altered mental status, dizziness, headache, loss of consciousness, syncope. 20:35 All other systems are negative. Exam: 20:45 Constitutional: The patient appears in no acute distress, alert, awake, cp non-diaphoretic, non-toxic, well developed, well nourished, obese. 20:45 Head/Face: Normocephalic, atraumatic. cp 20:45 Eyes: Periorbital structures: appear normal, Pupils: equal, round, and reactive to light and accomodation, Extraocular movements: intact throughout, Conjunctiva: normal, no exudate, no injection, Sclera: no appreciated abnormality, Lids and lashes: appear normal, bilaterally. 20:45 ENT: External ear(s): are unremarkable, Ear canal(s): are normal, clear, TM's: dullness, bilaterally, Nose: is normal, Mouth: Lips: moist, Oral mucosa: pink and intact, moist, Posterior pharynx: Airway: no evidence of obstruction, patent, Voice: is normal. 20:45 Neck: C-spine: vertebral tenderness, is not appreciated, crepitus, is not appreciated. 20:45 Chest/axilla: Inspection: normal, Palpation: crepitus, is not appreciated, tenderness, is not appreciated. 20:45 Cardiovascular: Rate: tachycardic, Rhythm: irregularly irregular, Edema: is not appreciated, JVD: is not appreciated. 20:45 Respiratory: the patient does not display signs of respiratory distress, Respirations: normal, no use of accessory muscles, no retractions, no splinting, no tachypnea, labored breathing, is not present, Breath sounds: are clear throughout, no decreased breath sounds, no stridor, no wheezing. 20:45 Abdomen/GI: Inspection: obese Bowel sounds: active, all quadrants, Palpation: soft, in all quadrants, mild abdominal tenderness, in all quadrants. 20:45 Musculoskeletal/extremity: Joints: All joints are normal except the right wrist displays painful range of motion, tenderness, the left knee and right knee displays painful range of motion, tenderness. 20:45 Skin: cellulitis, is not appreciated, no rash present. 20:45 Neuro: Orientation: to person, place \T\ time. Mentation: is normal. 22:35 ECG was reviewed by the Attending Physician. cp Vital Signs: 20:13 BP 121 / 101; Pulse 115; Resp 20; Temp 98.7(O); Pulse Ox 98% on R/A; Weight 136.08 kg; tl1 Height 5 ft. 6 in. (167.64 cm); Pain 8/10; 22:26 BP 117 / 92; Pulse 116; Resp 20; Pulse Ox 98% on R/A; tl2 20:13 Body Mass Index 48.42 (136.08 kg, 167.64 cm) tl1 [place] Coma Score: 20:13 Eye Response: spontaneous(4). Verbal Response: oriented(5). Motor Response: obeys tl1 commands(6). Total: 15. 22:26 Eye Response: spontaneous(4). Verbal Response: oriented(5). Motor Response: obeys tl2 commands(6). Total: 15. Trauma Score (Adult): 20:13 Eye Response: spontaneous(1); Verbal Response: oriented(1); Motor Response: obeys tl1 commands(2); Systolic BP: > 89 mm Hg(4); Respiratory Rate: 10 to 29 per min(4); [place] Score: 15; Trauma Score: 12 22:26 Eye Response: spontaneous(1); Verbal Response: oriented(1); Motor Response: obeys tl2 commands(2); Systolic BP: > 89 mm Hg(4); Respiratory Rate: 10 to 29 per min(4); Amy Score: 15; Trauma Score: 12 MDM: 20:05 Patient medically screened. cp 22:22 Data reviewed: vital signs, nurses notes, lab test result(s), EKG, radiologic studies, cp CT scan, plain films. 22:30 Physician consultation: Nicanor Loyola MD was called at 22:27, was contacted at 22:27, cp regarding consult, patient's condition, after a discussion of the case, a recommendation for transfer for higher level of care is made. 09/21 20:22 Order name: XRAY Chest (1 view); Complete Time: 22:15 cp 09/21 20:22 Order name: XRAY Pelvis; Complete Time: 22:15 cp 09/21 20:22 Order name: XRAY Femur LEFT; Complete Time: 22:15 cp 09/21 20:22 Order name: XRAY Femur RIGHT; Complete Time: 22:15 cp 09/21 20:22 Order name: XRAY Tib Fib LEFT; Complete Time: 22:15 cp 09/21 22:51 Order name: Urine Microscopic Only; Complete Time: 23:14 tl2 09/21 22:51 Order name: Urine Culture tl2 09/21 20:22 Order name: EKG; Complete Time: 20:23 cp 09/21 20:22 Order name: Cardiac monitoring; Complete Time: 20:45 cp 09/21 20:22 Order name: EKG - Nurse/Tech; Complete Time: 22:33 cp 09/21 20:22 Order name: IV Saline Lock; Complete Time: 20:45 cp 09/21 20:22 Order name: Labs collected and sent; Complete Time: 22:43 cp 09/21 20:22 Order name: O2 Per Protocol; Complete Time: 20:45 cp 09/21 20:22 Order name: O2 Sat Monitoring; Complete Time: 20:45 cp 09/21 20:22 Order name: XRAY Tib Fib RIGHT; Complete Time: 22:15 cp 09/21 20:22 Order name: XRAY Wrist RIGHT 3 view; Complete Time: 22:15 cp 09/21 20:36 Order name: Thapa; Complete Time: 20:45 cp 09/21 21:22 Order name: CT Traumagram (Head C Spine CAP wo con); Complete Time: 22:15 cp EC:35 Rate is 108 beats/min. Rhythm is irregularly irregular. QRS interval is normal. QT cp interval is normal. T waves are Inverted in lead aVL. Interpreted by me. Reviewed by me. Administered Medications: 20:25 Drug: fentaNYL (PF) 50 mcg Route: IVP; Infused Over: 2 mins; Site: PICC; tl2 21:00 Follow up: Response: No adverse reaction; Pain is unchanged, physician notified tl2 20:26 Drug: Zofran 4 mg Route: IVP; Infused Over: 2 mins; Site: PICC; tl2 21:00 Follow up: Response: No adverse reaction tl2 22:34 Drug: Dilaudid 1 mg Route: IVP; Infused Over: 2 mins; Site: PICC; tl2 23:30 Follow up: Response: No adverse reaction; Pain is decreased tl2 Disposition: 09/21/18 23:14 Transfer ordered to [facility]. Diagnosis are Periprosthetic fracture distal left femur, Fall on same level from slipping, tripping and stumbling. - Reason for transfer: Higher level of care. - Accepting physician is DR James Villegas. - Condition is Stable. - Problem is new. - Symptoms have improved. Signatures: Dispatcher [employer] EDMS Patience Sanders RN RN tl1 Tayo Mitchell PA PA cp Irais Huang, CICI RN tl2 Corrections: (The following items were deleted from the chart) 09/22 00:02 09/21 23:14 Knee Immobilizer ordered. cp tl2 09/22 00:03 09/21 23:14 09/21/2018 23:14 Transfer ordered to [facility]. tl2 Diagnosis is Periprosthetic fracture distal left femur; Fall on same level from slipping, tripping and stumbling. Reason for transfer: Higher level of care. Accepting physician is DR James Villegas. Condition is Stable. Problem is new. Symptoms have improved. cp
[2018-09-22 00:58] VITALS: TEMP 98.7; O2SAT 98
[2018-09-22 00:59] VITALS: BP 117/92
--- NOTE | 2018-09-22 16:09 | EKG ---
Test Date: 2018-09-21 Test Time: 22:28:20 Photo Manager: MARJ MEASUREMENT RESULTS: Intervals: Rate: 108 ND: QRSD: 86 QT: 334 QTc: 447 [place]: P: ND: QRS: 48 T: 111 INTERPRETIVE STATEMENTS: Atrial fibrillation with rapid ventricular response Low voltage QRS Nonspecific ST and T wave abnormality Abnormal ECG Compared to ECG 03/23/2018 19:58:55 Low QRS voltage now present ST (T wave) deviation still present Electronically Signed On 09-22-18 16:08:11 WINDOW REPAIRER by Elan Cobb
== END 2018-09-22 00:03 | disposition short-term general hospital (02) ==
LOC: ER 20:01
DX: S72.402A Unspecified fracture of lower end of left femur, initial encounter for closed fracture (principal); M97.02XA Periprosthetic fracture around internal prosthetic left hip joint, initial encounter; W01.198A Fall on same level from slipping, tripping and stumbling with subsequent striking against other object, initial encounter; Y93.9 Activity, unspecified; Y92.9 Unspecified place or not applicable; Z88.0 Allergy status to penicillin; Z88.5 Allergy status to narcotic agent; Z88.6 Allergy status to analgesic agent; Z91.040 Latex allergy status; Z91.048 Other nonmedicinal substance allergy status
CPT/HCPCS: 70450; 71045; 71250; 72125; 72170; 73110; 73552 ×2; 73590 ×2; 81015; 87077; 87086; 87088; 87186; 93005; 96374; 96375; 99285; J1170; J2405; J3010

== ENCOUNTER 2018-10-15 16:02 | Emergency (ER) | payer OTHER ==
--- OUTSIDE RECORDS SUMMARY | 2018-10-15 16:55 | XMS REPORT ---
:1945 [facility] Address [address] [place] [address] Care Team Providers Name Role Phone GLENNSTANTONMichelleCECYNAYANDILAN MYERS Unavailable Unavailable Problems This patient has no known problems. Allergies, Adverse Reactions, Alerts This patient has no known allergies or adverse reactions. Medications This patient has no known medications. Results Test Description Test Time Test Comments Text Results Atomic Results Result Comments CREATININE CLEARANCE 2017-01-05 17:53:00 Test Item Value Reference Range Comments CREATININE CLEARANCE (BEAKER) (test 47.2 mL/min 70.0-140.0 zeof=164) VOLUME, TOTAL (BEAKER) (test 1050 ml pwdz=0226) CREATININE URINE (BEAKER) (test 78.9 mg/dL pflz=180) [id number] (BEAKER) (test Linda Pitts MD (electronic pjfu=3109) signature) POCT-GLUCOSE [id number] 11:37:00 Test Item Value Reference Range Comments POC-GLUCOSE METER (BEAKER) 128 mg/dL 70-[address] [facility] [address] [place] [address] (test yaox=3626) [place] [address] URINE [id number] 11:02:00 Test Item Value Reference Range Comments CULTURE (BEAKER) (test bxsq=6623) <10,000 col/mL skin jayshree POCT-GLUCOSE [id number] 06:28:00 Test Item Value Reference Range Comments POC-GLUCOSE METER (BEAKER) 101 mg/dL 70-[address] [facility] [address] [facility] (test newy=3067) [facility] [address] POCT-GLUCOSE [id number] 00:46:00 Test Item Value Reference Range Comments POC-GLUCOSE METER (BEAKER) 130 mg/dL 70-110 TESTED AT [address] (test wnuy=4200) [place] [id number] POCT-GLUCOSE [id number] 20:21:00 Test Item Value Reference Range Comments POC-GLUCOSE METER (BEAKER) 133 mg/dL 70-110 TESTED AT [address] (test slju=3603) [place] [address] [id number] 18:44:00 Test Item Value Reference Range Comments CREATININE (BEAKER) (test 0.82 mg/dL 0.57-1.25 gwiu=041) EGFR (BEAKER) (test 69 mL/min/1.73 sq m ESTIMATED GFR IS NOT rokj=8837) ACCURATE CREATININE CLEARANCE IN PREDICTING GLOMERULAR FILTRATION RATE. ESTIMATED GFR IS NOT APPLICABLE FOR DIALYSIS PATIENTS. POCT-GLUCOSE [id number] 17:11:00 Test Item Value Reference Range Comments POC-GLUCOSE METER (BEAKER) 118 mg/dL 70-110 TESTED AT [address] (test qfbd=9622) [place] [id number] POCT-GLUCOSE [id number] 15:29:00 Test Item Value Reference Range Comments POC-GLUCOSE METER (BEAKER) 63 mg/dL 70-110 Notified CICI COTO/TESTED AT [facility] (test mvwh=4828) [address] [place] [address] POCT-GLUCOSE [id number] 15:03:00 Test Item Value Reference Range Comments POC-GLUCOSE METER (BEAKER) 51 mg/dL 70-110 Notified CICI COTO/TESTED AT [facility] (test ouwm=2235) [address] [place], [place] [address] POCT-GLUCOSE [id number] 11:28:00 Test Item Value Reference Range Comments POC-GLUCOSE METER (BEAKER) 75 mg/dL 70-110 TESTED AT [address] (test hpff=2635) [place] [address] CALCIUM, 24 HOUR [id number] 09:19:00 Test Item Value Reference Range Comments VOLUME, TOTAL (BEAKER) (test viqn=7196) 1050 ml CALCIUM URINE (BEAKER) (test vavx=847) 15.4 mg/dL CALCIUM, 24HR URINE (BEAKER) (test ebfy=0156) 162 mg/24 Hr 50-300 VITAMIN D, [id number] 07:18:00 Test Item Value Reference Range Comments VITAMIN D 25-OH (BEAKER) (test kwvl=3227) < ng/mL 13.0-47.8 CBC W/PLT COUNT & AUTO [id number] 07:04:00 Test Item Value Reference Range Comments WHITE BLOOD CELL COUNT (BEAKER) (test tkil=924) 13.3 K/ L 4.0-10.0 RED BLOOD CELL COUNT (BEAKER) (test lzcm=490) 3.79 M/ L 4.00-5.00 HEMOGLOBIN (BEAKER) (test vbmf=926) 12.3 GM/DL 12.0-15.0 HEMATOCRIT (BEAKER) (test txvd=975) 37.1 % 36.0-45.0 MEAN CORPUSCULAR VOLUME (BEAKER) (test coer=976) 98.1 fL 82.0-99.0 MEAN CORPUSCULAR HEMOGLOBIN (BEAKER) (test 32.4 pg 27.0-33.0 xnjl=938) MEAN CORPUSCULAR HEMOGLOBIN CONC (BEAKER) (test 33.0 GM/DL 32.0-36.0 hxbv=362) RED CELL DISTRIBUTION WIDTH (BEAKER) (test 15.2 % 10.3-14.2 kuwv=233) PLATELET COUNT (BEAKER) (test lzjr=049) 218 K/CU MM 150-430 MEAN PLATELET VOLUME (BEAKER) (test xuwo=591) 7.3 fL 6.5-10.5 NUCLEATED RED BLOOD CELLS (BEAKER) (test 0 /100 WBC 0-0 liqr=967) NEUTROPHILS RELATIVE PERCENT (BEAKER) (test 79 % rayh=635) LYMPHOCYTES RELATIVE PERCENT (BEAKER) (test 16 % zfwd=915) MONOCYTES RELATIVE PERCENT (BEAKER) (test 5 % ggym=692) EOSINOPHILS RELATIVE PERCENT (BEAKER) (test 1 % pbzs=843) BASOPHILS RELATIVE PERCENT (BEAKER) (test 0 % sgwi=239) NEUTROPHILS ABSOLUTE COUNT (BEAKER) (test 10.40 K/ L 1.80-8.00 objq=396) LYMPHOCYTES ABSOLUTE COUNT (BEAKER) (test 2.05 K/ L 1.48-4.50 dqii=685) MONOCYTES ABSOLUTE COUNT (BEAKER) (test 0.69 K/ L 0.00-1.30 vcav=417) EOSINOPHILS ABSOLUTE COUNT (BEAKER) (test 0.09 K/ L 0.00-0.50 crzn=878) BASOPHILS ABSOLUTE COUNT (BEAKER) (test 0.01 K/ L 0.00-0.20 irvj=865) 0.00BASIC METABOLIC [id number] 07:01:00 Test Item Value Reference Range Comments SODIUM (BEAKER) (test 142 meq/L 136-145 pwtt=313) POTASSIUM (BEAKER) (test 3.7 meq/L 3.5-5.1 ojkz=423) CHLORIDE (BEAKER) (test 104 meq/L 98-107 dqkl=186) CO2 (BEAKER) (test 27 meq/L 22-29 sbky=364) BLOOD UREA NITROGEN 35 mg/dL 7-21 (BEAKER) (test qqit=125) CREATININE (BEAKER) (test 0.86 mg/dL 0.57-1.25 ccyf=084) GLUCOSE RANDOM (BEAKER) 144 mg/dL 70-105 (test eglo=079) CALCIUM (BEAKER) (test 11.6 mg/dL 8.4-10.2 sacl=846) EGFR (BEAKER) (test 65 mL/min/1.73 sq m ESTIMATED GFR IS NOT qdzn=6467) ACCURATE CREATININE CLEARANCE IN PREDICTING GLOMERULAR FILTRATION RATE. ESTIMATED GFR IS NOT APPLICABLE FOR DIALYSIS PATIENTS. [id number] 06:57:00 Test Item Value Reference Range Comments PHOSPHORUS (BEAKER) (test uvrl=446) 3.0 mg/dL 2.3-4.7 [id number] 06:57:00 Test Item Value Reference Range Comments MAGNESIUM (BEAKER) (test acqt=126) 2.2 mg/dL 1.6-2.6 [id number] 06:34:00 Test Item Value Reference Range Comments ALBUMIN (BEAKER) (test lwhu=6146) 3.8 g/dL 3.5-5.0 POCT-GLUCOSE [id number] 06:32:00 Test Item Value Reference Range Comments POC-GLUCOSE METER (BEAKER) 104 mg/dL 70-110 TESTED AT [address] (test miwj=4163) [facility] [address] POCT-GLUCOSE [id number] 23:41:00 Test Item Value Reference Range Comments POC-GLUCOSE METER (BEAKER) 108 mg/dL 70-110 TESTED AT [address] (test kbto=9078) [place] [id number] POCT-GLUCOSE [id number] 17:58:00 Test Item Value Reference Range Comments POC-GLUCOSE METER (BEAKER) 112 mg/dL 70-110 TESTED AT [address] (test yplj=9506) [place] [address] URINALYSIS W/ REFLEX URINE [id number] 16:02:00 Test Item Value Reference Range Comments COLOR (BEAKER) (test cqzo=894) Yellow CLARITY (BEAKER) (test wcrs=607) Clear SPECIFIC GRAVITY UA (BEAKER) (test usxk=582) 1.015 1.001-1.035 PH UA (BEAKER) (test spld=957) 6.0 5.0-8.0 PROTEIN UA (BEAKER) (test yyqa=813) Negative Negative GLUCOSE UA (BEAKER) (test orpo=583) Negative Negative KETONES UA (BEAKER) (test zxbt=742) Negative Negative BILIRUBIN UA (BEAKER) (test vhnr=867) Negative Negative BLOOD UA (BEAKER) (test ikhq=723) Negative Negative NITRITE UA (BEAKER) (test gjhw=029) Negative Negative LEUKOCYTE ESTERASE UA (BEAKER) (test ponz=486) Moderate Negative UROBILINOGEN UA (BEAKER) (test hoea=239) 0.2 mg/dL 0.2-1.0 RBC UA (BEAKER) (test pufl=577) 10 /HPF WBC UA (BEAKER) (test pcxg=396) 29 /HPF MUCUS (BEAKER) (test xhws=8826) Few SQUAMOUS EPITHELIAL (BEAKER) (test edcz=140) 1 /HPF HYALINE CASTS (BEAKER) (test gtja=841) 2 /LPF SOURCE(BEAKER) (test wjbe=4835) POCT-GLUCOSE [id number] 12:49:00 Test Item Value Reference Range Comments POC-GLUCOSE METER (BEAKER) 79 mg/dL 70-110 TESTED AT [address] (test agum=3511) [place] [id number] CBC W/PLT COUNT & AUTO [id number] 09:59:00 Test Item Value Reference Range Comments WHITE BLOOD CELL COUNT (BEAKER) (test vmac=390) 17.0 K/ L 4.0-10.0 RED BLOOD CELL COUNT (BEAKER) (test dwzf=823) 3.96 M/ L 4.00-5.00 HEMOGLOBIN (BEAKER) (test fgkn=122) 12.1 GM/DL 12.0-15.0 HEMATOCRIT (BEAKER) (test hqma=993) 39.2 % 36.0-45.0 MEAN CORPUSCULAR VOLUME (BEAKER) (test sbnx=821) 99.0 fL 82.0-99.0 MEAN CORPUSCULAR HEMOGLOBIN (BEAKER) (test 30.5 pg 27.0-33.0 prav=322) MEAN CORPUSCULAR HEMOGLOBIN CONC (BEAKER) (test 30.8 GM/DL 32.0-36.0 npwx=331) RED CELL DISTRIBUTION WIDTH (BEAKER) (test 15.5 % 10.3-14.2 goek=076) PLATELET COUNT (BEAKER) (test mgqs=642) 219 K/CU MM 150-430 MEAN PLATELET VOLUME (BEAKER) (test rgdy=729) 7.3 fL 6.5-10.5 NUCLEATED RED BLOOD CELLS (BEAKER) (test 0 /100 WBC 0-0 sugt=839) NEUTROPHILS RELATIVE PERCENT (BEAKER) (test 80 % rihl=219) LYMPHOCYTES RELATIVE PERCENT (BEAKER) (test 14 % qiqu=043) MONOCYTES RELATIVE PERCENT (BEAKER) (test 6 % wucd=263) EOSINOPHILS RELATIVE PERCENT (BEAKER) (test 1 % skzh=992) BASOPHILS RELATIVE PERCENT (BEAKER) (test 0 % ctbr=626) NEUTROPHILS ABSOLUTE COUNT (BEAKER) (test 13.60 K/ L 1.80-8.00 cbya=348) LYMPHOCYTES ABSOLUTE COUNT (BEAKER) (test 2.32 K/ L 1.48-4.50 rfik=768) MONOCYTES ABSOLUTE COUNT (BEAKER) (test 0.97 K/ L 0.00-1.30 iwgo=152) EOSINOPHILS ABSOLUTE COUNT (BEAKER) (test 0.10 K/ L 0.00-0.50 jbhv=393) BASOPHILS ABSOLUTE COUNT (BEAKER) (test 0.01 K/ L 0.00-0.20 zrzi=346) 0.000.510.000.000.000.00(MANUAL DIFFERENTIAL)2017-01-01 09:59:00 Test Item Value Reference Range Comments TOTAL COUNTED (BEAKER) (test eckc=9295) WBC MORPHOLOGY (BEAKER) (test faox=442) Normal PLT MORPHOLOGY (BEAKER) (test lsvx=870) Normal RBC MORPHOLOGY (BEAKER) (test uqkq=305) Normal POCT-GLUCOSE [id number] 06:20:00 Test Item Value Reference Range Comments POC-GLUCOSE METER (BEAKER) 140 mg/dL 70-[address] [facility] [address] [facility] (test vgin=0386) [facility] [address] [id number] 06:11:00 Test Item Value Reference Range Comments ALBUMIN (BEAKER) (test 3.2 g/dL 3.5-5.0 Specimen moderately hemolyzed hjry=0895) BASIC METABOLIC [id number] 06:00:00 Test Item Value Reference Range Comments SODIUM (BEAKER) (test 143 meq/L 136-145 ocnt=769) POTASSIUM (BEAKER) (test 3.8 meq/L 3.5-5.1 ifnc=186) CHLORIDE (BEAKER) (test 102 meq/L 98-107 bgdr=297) CO2 (BEAKER) (test 31 meq/L 22-29 aufk=262) BLOOD UREA NITROGEN 33 mg/dL 7-21 (BEAKER) (test zmnx=371) CREATININE (BEAKER) (test 0.89 mg/dL 0.57-1.25 sonq=283) GLUCOSE RANDOM (BEAKER) 145 mg/dL 70-105 (test lgld=681) CALCIUM (BEAKER) (test 11.6 mg/dL 8.4-10.2 yvyn=454) EGFR (BEAKER) (test 63 mL/min/1.73 sq m ESTIMATED GFR IS NOT cohh=1739) ACCURATE CREATININE CLEARANCE IN PREDICTING GLOMERULAR FILTRATION RATE. ESTIMATED GFR IS NOT APPLICABLE FOR DIALYSIS PATIENTS. [id number] 05:59:00 Test Item Value Reference Range Comments PHOSPHORUS (BEAKER) (test wkec=740) 3.1 mg/dL 2.3-4.7 [id number] 05:59:00 Test Item Value Reference Range Comments MAGNESIUM (BEAKER) (test xpcb=943) 2.0 mg/dL 1.6-2.6 POCT-GLUCOSE [id number] 23:38:00 Test Item Value Reference Range Comments POC-GLUCOSE METER (BEAKER) 156 mg/dL 70-110 TESTED AT [address] (test ueln=8414) [facility] [address] POCT-GLUCOSE [id number] 18:18:00 Test Item Value Reference Range Comments POC-GLUCOSE METER (BEAKER) 110 mg/dL 70-110 TESTED AT [address] (test msgi=4985) [place] [id number] POCT-GLUCOSE [id number] 11:44:00 Test Item Value Reference Range Comments POC-GLUCOSE METER (BEAKER) 79 mg/dL 70-110 TESTED AT [address] (test ffno=8957) [place] [id number] CBC W/PLT COUNT & AUTO [id number] 11:03:00 Test Item Value Reference Range Comments WHITE BLOOD CELL COUNT (BEAKER) (test vwao=233) 13.9 K/ L 4.0-10.0 RED BLOOD CELL COUNT (BEAKER) (test wubg=111) 3.86 M/ L 4.00-5.00 HEMOGLOBIN (BEAKER) (test roxz=260) 12.4 GM/DL 12.0-15.0 HEMATOCRIT (BEAKER) (test qyih=195) 37.7 % 36.0-45.0 MEAN CORPUSCULAR VOLUME (BEAKER) (test zbtr=729) 97.5 fL 82.0-99.0 MEAN CORPUSCULAR HEMOGLOBIN (BEAKER) (test 32.2 pg 27.0-33.0 djsr=214) MEAN CORPUSCULAR HEMOGLOBIN CONC (BEAKER) (test 33.0 GM/DL 32.0-36.0 pjin=415) RED CELL DISTRIBUTION WIDTH (BEAKER) (test 16.4 % 10.3-14.2 nzxl=332) PLATELET COUNT (BEAKER) (test hbgh=217) 248 K/CU MM 150-430 MEAN PLATELET VOLUME (BEAKER) (test deeb=230) 7.1 fL 6.5-10.5 NUCLEATED RED BLOOD CELLS (BEAKER) (test 0 /100 WBC 0-0 cwhz=912) NEUTROPHILS RELATIVE PERCENT (BEAKER) (test 81 % ncls=568) LYMPHOCYTES RELATIVE PERCENT (BEAKER) (test 12 % zwle=224) MONOCYTES RELATIVE PERCENT (BEAKER) (test 6 % rdqc=309) EOSINOPHILS RELATIVE PERCENT (BEAKER) (test 1 % wqcf=357) BASOPHILS RELATIVE PERCENT (BEAKER) (test 0 % dioa=761) NEUTROPHILS ABSOLUTE COUNT (BEAKER) (test 11.30 K/ L 1.80-8.00 jqdz=702) LYMPHOCYTES ABSOLUTE COUNT (BEAKER) (test 1.62 K/ L 1.48-4.50 alzo=707) MONOCYTES ABSOLUTE COUNT (BEAKER) (test 0.84 K/ L 0.00-1.30 ggen=488) EOSINOPHILS ABSOLUTE COUNT (BEAKER) (test 0.15 K/ L 0.00-0.50 tzbh=926) BASOPHILS ABSOLUTE COUNT (BEAKER) (test 0.03 K/ L 0.00-0.20 szjg=060) 0.000.520.000.000.000.000.000.000.00(MANUAL DIFFERENTIAL)2016-12-31 11:03:00 Test Item Value Reference Range Comments TOTAL COUNTED (BEAKER) (test zgxa=4100) WBC MORPHOLOGY (BEAKER) (test qcgu=999) Normal PLT MORPHOLOGY (BEAKER) (test yflk=437) Normal RBC MORPHOLOGY (BEAKER) (test pevr=101) Normal POCT-GLUCOSE [id number] 06:21:00 Test Item Value Reference Range Comments POC-GLUCOSE METER (BEAKER) 152 mg/dL 70-[address] [facility] [address] [place] [address] (test aqak=5117) [facility] [address] BASIC METABOLIC [id number] 06:04:00 Test Item Value Reference Range Comments SODIUM (BEAKER) (test 142 meq/L 136-145 sabu=756) POTASSIUM (BEAKER) (test 3.8 meq/L 3.5-5.1 mozu=517) CHLORIDE (BEAKER) (test 102 meq/L 98-107 wxht=069) CO2 (BEAKER) (test 29 meq/L 22-29 rnby=040) BLOOD UREA NITROGEN 34 mg/dL 7-21 (BEAKER) (test koqe=647) CREATININE (BEAKER) (test 0.85 mg/dL 0.57-1.25 kzkh=434) GLUCOSE RANDOM (BEAKER) 151 mg/dL 70-105 (test dpdj=778) CALCIUM (BEAKER) (test 11.7 mg/dL 8.4-10.2 zopd=556) EGFR (BEAKER) (test 66 mL/min/1.73 sq m ESTIMATED GFR IS NOT mcbx=8966) ACCURATE CREATININE CLEARANCE IN PREDICTING GLOMERULAR FILTRATION RATE. ESTIMATED GFR IS NOT APPLICABLE FOR DIALYSIS PATIENTS. [id number] 05:56:00 Test Item Value Reference Range Comments PHOSPHORUS (BEAKER) (test okbq=908) 3.5 mg/dL 2.3-4.7 [id number] 05:56:00 Test Item Value Reference Range Comments MAGNESIUM (BEAKER) (test gtvd=901) 1.9 mg/dL 1.6-2.6 POCT-GLUCOSE [id number] 23:51:00 Test Item Value Reference Range Comments POC-GLUCOSE METER (BEAKER) 168 mg/dL 70-110 TESTED AT [address] (test hiqq=0948) [facility] [address] POCT-GLUCOSE [id number] 18:34:00 Test Item Value Reference Range Comments POC-GLUCOSE METER (BEAKER) 80 mg/dL 70-110 TESTED AT [address] (test tmcm=3505) [facility] [address] POCT-GLUCOSE [id number] 16:09:00 Test Item Value Reference Range Comments POC-GLUCOSE METER (BEAKER) 83 mg/dL 70-110 TESTED AT [address] (test zuls=3438) [facility] [address] POCT-GLUCOSE [id number] 16:09:00 Test Item Value Reference Range Comments POC-GLUCOSE METER (BEAKER) 41 mg/dL 70-110 TESTED AT [address] (test bywr=7370) [facility] [address] POCT-GLUCOSE [id number] 15:20:00 Test Item Value Reference Range Comments POC-GLUCOSE METER (BEAKER) 44 mg/dL 70-110 TESTED AT [address] (test eerv=1848) [facility] [address] POCT-GLUCOSE [id number] 08:27:00 Test Item Value Reference Range Comments POC-GLUCOSE METER (BEAKER) 114 mg/dL 70-110 TESTED AT [address] (test pchp=8761) [facility] [address] POCT-GLUCOSE [id number] 08:27:00 Test Item Value Reference Range Comments POC-GLUCOSE METER (BEAKER) 35 mg/dL 70-[address] [facility] [address] (test jhqe=0387) [place] [address] CBC W/PLT COUNT & AUTO [id number] 07:04:00 Test Item Value Reference Range Comments WHITE BLOOD CELL COUNT (BEAKER) (test hfpm=401) 8.2 K/ L 4.0-10.0 RED BLOOD CELL COUNT (BEAKER) (test qsxo=019) 4.05 M/ L 4.00-5.00 HEMOGLOBIN (BEAKER) (test tzer=186) 12.8 GM/DL 12.0-15.0 HEMATOCRIT (BEAKER) (test lgbc=035) 39.2 % 36.0-45.0 MEAN CORPUSCULAR VOLUME (BEAKER) (test xmrw=329) 97.0 fL 82.0-99.0 MEAN CORPUSCULAR HEMOGLOBIN (BEAKER) (test 31.7 pg 27.0-33.0 gxsl=041) MEAN CORPUSCULAR HEMOGLOBIN CONC (BEAKER) (test 32.7 GM/DL 32.0-36.0 bklz=068) RED CELL DISTRIBUTION WIDTH (BEAKER) (test 15.6 % 10.3-14.2 umni=222) PLATELET COUNT (BEAKER) (test yzkc=374) 275 K/CU MM 150-430 MEAN PLATELET VOLUME (BEAKER) (test ydsh=758) 6.9 fL 6.5-10.5 NUCLEATED RED BLOOD CELLS (BEAKER) (test 0 /100 WBC 0-0 ubli=447) NEUTROPHILS RELATIVE PERCENT (BEAKER) (test 63 % pjlp=691) LYMPHOCYTES RELATIVE PERCENT (BEAKER) (test 27 % hjal=033) MONOCYTES RELATIVE PERCENT (BEAKER) (test 7 % mdav=323) EOSINOPHILS RELATIVE PERCENT (BEAKER) (test 2 % zesi=553) BASOPHILS RELATIVE PERCENT (BEAKER) (test 1 % gfxa=508) NEUTROPHILS ABSOLUTE COUNT (BEAKER) (test 5.13 K/ L 1.80-8.00 ojxq=864) LYMPHOCYTES ABSOLUTE COUNT (BEAKER) (test 2.21 K/ L 1.48-4.50 vwii=604) MONOCYTES ABSOLUTE COUNT (BEAKER) (test 0.59 K/ L 0.00-1.30 vqdz=873) EOSINOPHILS ABSOLUTE COUNT (BEAKER) (test 0.18 K/ L 0.00-0.50 neiw=042) BASOPHILS ABSOLUTE COUNT (BEAKER) (test 0.10 K/ L 0.00-0.20 rbks=026) 0.00POCT-GLUCOSE [id number] 06:20:00 Test Item Value Reference Range Comments POC-GLUCOSE METER (BEAKER) 62 mg/dL 70-110 Notified CICI COTO/TESTED AT [facility] (test artd=3230) [address] [place] [address] BASIC METABOLIC [id number] 06:13:00 Test Item Value Reference Range Comments SODIUM (BEAKER) (test 141 meq/L 136-145 sfqs=248) POTASSIUM (BEAKER) (test 4.3 meq/L 3.5-5.1 xasx=895) CHLORIDE (BEAKER) (test 99 meq/L 98-107 eycy=964) CO2 (BEAKER) (test 33 meq/L 22-29 sccv=936) BLOOD UREA NITROGEN 36 mg/dL 7-21 (BEAKER) (test qltr=945) CREATININE (BEAKER) (test 0.93 mg/dL 0.57-1.25 wrvy=349) GLUCOSE RANDOM (BEAKER) 107 mg/dL 70-105 (test lxdl=040) CALCIUM (BEAKER) (test 11.9 mg/dL 8.4-10.2 pkry=985) EGFR (BEAKER) (test 59 mL/min/1.73 sq m ESTIMATED GFR IS NOT ruog=1548) ACCURATE CREATININE CLEARANCE IN PREDICTING GLOMERULAR FILTRATION RATE. ESTIMATED GFR IS NOT APPLICABLE FOR DIALYSIS PATIENTS. [id number] 06:10:00 Test Item Value Reference Range Comments PHOSPHORUS (BEAKER) (test drud=985) 3.5 mg/dL 2.3-4.7 [id number] 06:10:00 Test Item Value Reference Range Comments MAGNESIUM (BEAKER) (test wqwg=388) 2.2 mg/dL 1.6-2.6 PROTHROMBIN [id number] 06:05:00 Test Item Value Reference Range Comments PROTIME (BEAKER) (test vbvh=793) 15.5 seconds 11.7-14.7 INR (BEAKER) (test dxkk=356) 1.2 <=5.9 RECOMMENDED COUMADIN/WARFARIN INR THERAPY RANGESSTANDARD DOSE: 2.0 - 3.0 Includes: PROPHYLAXIS forvenous thrombosis, systemic embolization; TREATMENT for venous thrombosis and/or pulmonary embolus.HIGH RISK: Target INR is 2.5-3.5 for patients with mechanical heart valves.POCT-GLUCOSE [id number] 23:58:00 Test Item Value Reference Range Comments POC-GLUCOSE METER (BEAKER) 108 mg/dL 70-110 TESTED AT [address] (test vdgj=6693) [place] [id number] POCT-GLUCOSE [id number] 18:02:00 Test Item Value Reference Range Comments POC-GLUCOSE METER (BEAKER) 126 mg/dL 70-110 TESTED AT [address] (test pmrn=6891) [place] [address] PTH, [id number] 14:50:00 Test Item Value Reference Range Comments PARATHYROID HORMONE INTACT (BEAKER) (test 274.9 pg/mL 8.5-72.5 gpjk=912) Effective 08/19/2014: Reference Range ChangeNew: 8.5-72.5 Previous: 15.0- 90.0POCT-GLUCOSE [id number] 13:33:00 Test Item Value Reference Range Comments POC-GLUCOSE METER (BEAKER) 145 mg/dL 70-110 TESTED AT [address] (test ekpw=3758) [place] [id number] CBC W/PLT COUNT & AUTO [id number] 08:35:00 Test Item Value Reference Range Comments WHITE BLOOD CELL COUNT (BEAKER) (test zwlk=337) 10.2 K/ L 4.0-10.0 RED BLOOD CELL COUNT (BEAKER) (test nlcq=115) 3.96 M/ L 4.00-5.00 HEMOGLOBIN (BEAKER) (test susm=409) 12.8 GM/DL 12.0-15.0 HEMATOCRIT (BEAKER) (test jfsa=217) 38.7 % 36.0-45.0 MEAN CORPUSCULAR VOLUME (BEAKER) (test hzii=305) 97.7 fL 82.0-99.0 MEAN CORPUSCULAR HEMOGLOBIN (BEAKER) (test 32.2 pg 27.0-33.0 hqaf=137) MEAN CORPUSCULAR HEMOGLOBIN CONC (BEAKER) (test 33.0 GM/DL 32.0-36.0 chog=320) RED CELL DISTRIBUTION WIDTH (BEAKER) (test 16.7 % 10.3-14.2 tqrw=856) PLATELET COUNT (BEAKER) (test gphj=778) 279 K/CU MM 150-430 MEAN PLATELET VOLUME (BEAKER) (test qatt=235) 6.7 fL 6.5-10.5 NUCLEATED RED BLOOD CELLS (BEAKER) (test 0 /100 WBC 0-0 dlxt=514) NEUTROPHILS RELATIVE PERCENT (BEAKER) (test 70 % tvtx=725) LYMPHOCYTES RELATIVE PERCENT (BEAKER) (test 22 % mkhb=274) MONOCYTES RELATIVE PERCENT (BEAKER) (test 7 % jvmq=047) EOSINOPHILS RELATIVE PERCENT (BEAKER) (test 2 % ipsg=640) BASOPHILS RELATIVE PERCENT (BEAKER) (test 0 % aoch=169) NEUTROPHILS ABSOLUTE COUNT (BEAKER) (test 7.11 K/ L 1.80-8.00 ejvw=726) LYMPHOCYTES ABSOLUTE COUNT (BEAKER) (test 2.19 K/ L 1.48-4.50 lozo=762) MONOCYTES ABSOLUTE COUNT (BEAKER) (test 0.70 K/ L 0.00-1.30 jagn=905) EOSINOPHILS ABSOLUTE COUNT (BEAKER) (test 0.18 K/ L 0.00-0.50 tnxw=649) BASOPHILS ABSOLUTE COUNT (BEAKER) (test 0.02 K/ L 0.00-0.20 glgi=881) [id number](MANUAL DIFFERENTIAL)2016-12-29 08:35:00 Test Item Value Reference Range Comments TOTAL COUNTED (BEAKER) (test cque=1106) BASIC METABOLIC [id number] 06:00:00 Test Item Value Reference Range Comments SODIUM (BEAKER) (test 141 meq/L 136-145 hlny=429) POTASSIUM (BEAKER) (test 4.3 meq/L 3.5-5.1 Specimen slightly xkgk=424) hemolyzed CHLORIDE (BEAKER) (test 100 meq/L 98-107 qlgi=583) CO2 (BEAKER) (test 29 meq/L 22-29 olkq=901) BLOOD UREA NITROGEN 34 mg/dL 7-21 (BEAKER) (test yqks=061) CREATININE (BEAKER) (test 0.91 mg/dL 0.57-1.25 Specimen slightly vcus=347) hemolyzed GLUCOSE RANDOM (BEAKER) 110 mg/dL 70-105 (test mfds=593) CALCIUM (BEAKER) (test 12.0 mg/dL 8.4-10.2 yszq=907) EGFR (BEAKER) (test 61 mL/min/1.73 sq m ESTIMATED GFR IS NOT gxzo=7275) ACCURATE CREATININE CLEARANCE IN PREDICTING GLOMERULAR FILTRATION RATE. ESTIMATED GFR IS NOT APPLICABLE FOR DIALYSIS PATIENTS. [id number] 05:59:00 Test Item Value Reference Range Comments MAGNESIUM (BEAKER) (test 2.4 mg/dL 1.6-2.6 Specimen slightly hemolyzed jigk=325) [id number] 05:59:00 Test Item Value Reference Range Comments PHOSPHORUS (BEAKER) (test 3.1 mg/dL 2.3-4.7 Specimen slightly hemolyzed jvjw=366) POCT-GLUCOSE [id number] 05:32:00 Test Item Value Reference Range Comments POC-GLUCOSE METER (BEAKER) 114 mg/dL 70-110 TESTED AT [address] (test tale=5326) [place] [id number] POCT-GLUCOSE [id number] 00:02:00 Test Item Value Reference Range Comments POC-GLUCOSE METER (BEAKER) 106 mg/dL 70-110 TESTED AT [address] (test jnqu=3314) [place] [id number] POCT-GLUCOSE [id number] 18:28:00 Test Item Value Reference Range Comments POC-GLUCOSE METER (BEAKER) 150 mg/dL 70-110 TESTED AT [address] (test qpdm=8578) [place] [id number] POCT-GLUCOSE [id number] 12:31:00 Test Item Value Reference Range Comments POC-GLUCOSE METER (BEAKER) 152 mg/dL 70-110 TESTED AT [address] (test gdfo=5467) [place] [id number] POCT-GLUCOSE [id number] 05:41:00 Test Item Value Reference Range Comments POC-GLUCOSE METER (BEAKER) 120 mg/dL 70-110 TESTED AT [address] (test eaid=0697) [place] [id number] CBC W/PLT COUNT & AUTO [id number] 05:00:00 Test Item Value Reference Range Comments WHITE BLOOD CELL COUNT (BEAKER) (test rjpi=976) 8.8 K/ L 4.0-10.0 RED BLOOD CELL COUNT (BEAKER) (test biqi=018) 3.76 M/ L 4.00-5.00 HEMOGLOBIN (BEAKER) (test qlab=209) 11.3 GM/DL 12.0-15.0 HEMATOCRIT (BEAKER) (test dxgo=961) 35.7 % 36.0-45.0 MEAN CORPUSCULAR VOLUME (BEAKER) (test vqmt=971) 95.1 fL 82.0-99.0 MEAN CORPUSCULAR HEMOGLOBIN (BEAKER) (test 30.2 pg 27.0-33.0 ugcv=943) MEAN CORPUSCULAR HEMOGLOBIN CONC (BEAKER) (test 31.7 GM/DL 32.0-36.0 heli=049) RED CELL DISTRIBUTION WIDTH (BEAKER) (test 15.5 % 10.3-14.2 wvkh=099) PLATELET COUNT (BEAKER) (test abvj=640) 259 K/CU MM 150-430 MEAN PLATELET VOLUME (BEAKER) (test aaiy=799) 6.3 fL 6.5-10.5 NUCLEATED RED BLOOD CELLS (BEAKER) (test 0 /100 WBC 0-0 extd=798) NEUTROPHILS RELATIVE PERCENT (BEAKER) (test 72 % advv=187) LYMPHOCYTES RELATIVE PERCENT (BEAKER) (test 20 % whya=026) MONOCYTES RELATIVE PERCENT (BEAKER) (test 6 % jkjt=701) EOSINOPHILS RELATIVE PERCENT (BEAKER) (test 1 % cdbh=437) BASOPHILS RELATIVE PERCENT (BEAKER) (test 0 % lqwn=558) NEUTROPHILS ABSOLUTE COUNT (BEAKER) (test 6.39 K/ L 1.80-8.00 jjdw=457) LYMPHOCYTES ABSOLUTE COUNT (BEAKER) (test 1.75 K/ L 1.48-4.50 mgvz=387) MONOCYTES ABSOLUTE COUNT (BEAKER) (test 0.57 K/ L 0.00-1.30 bczm=594) EOSINOPHILS ABSOLUTE COUNT (BEAKER) (test 0.11 K/ L 0.00-0.50 nrxx=934) BASOPHILS ABSOLUTE COUNT (BEAKER) (test 0.02 K/ L 0.00-0.20 xyau=802) 0.00BASIC METABOLIC [id number] 04:58:00 Test Item Value Reference Range Comments SODIUM (BEAKER) (test 142 meq/L 136-145 gsfr=553) POTASSIUM (BEAKER) (test 3.6 meq/L 3.5-5.1 Specimen slightly pljw=282) hemolyzed CHLORIDE (BEAKER) (test 98 meq/L 98-107 rtir=336) CO2 (BEAKER) (test 32 meq/L 22-29 iqyd=522) BLOOD UREA NITROGEN 32 mg/dL 7-21 (BEAKER) (test urqf=934) CREATININE (BEAKER) (test 0.92 mg/dL 0.57-1.25 Specimen slightly fkmd=427) hemolyzed GLUCOSE RANDOM (BEAKER) 134 mg/dL 70-105 (test vttm=401) CALCIUM (BEAKER) (test 11.5 mg/dL 8.4-10.2 ducp=626) EGFR (BEAKER) (test 60 mL/min/1.73 sq m ESTIMATED GFR IS NOT jwur=5748) ACCURATE CREATININE CLEARANCE IN PREDICTING GLOMERULAR FILTRATION RATE. ESTIMATED GFR IS NOT APPLICABLE FOR DIALYSIS PATIENTS. [id number] 04:57:00 Test Item Value Reference Range Comments MAGNESIUM (BEAKER) (test 2.5 mg/dL 1.6-2.6 Specimen slightly hemolyzed vtli=093) [id number] 04:57:00 Test Item Value Reference Range Comments PHOSPHORUS (BEAKER) (test 3.3 mg/dL 2.3-4.7 Specimen slightly hemolyzed nmdb=753) POCT-GLUCOSE [id number] 00:44:00 Test Item Value Reference Range Comments POC-GLUCOSE METER (BEAKER) 142 mg/dL 70-110 TESTED AT [address] (test prmx=1186) [facility] [address] POCT-GLUCOSE [id number] 18:34:00 Test Item Value Reference Range Comments POC-GLUCOSE METER (BEAKER) 115 mg/dL 70-110 TESTED AT [address] (test twgc=8275) [facility] [address] POCT-GLUCOSE [id number] 12:21:00 Test Item Value Reference Range Comments POC-GLUCOSE METER (BEAKER) 123 mg/dL 70-110 TESTED AT [address] (test httr=9658) [place] [address] URINE [id number] 10:42:00 Test Item Value Reference Range Comments CULTURE (BEAKER) (test djdp=1034) No growth [id number] 06:53:00 Test Item Value Reference Range Comments POTASSIUM (BEAKER) (test twmk=789) 3.6 meq/L 3.5-5.1 Check Serum Potassium level 2 hours after oral potassium replacement completed or 30 min after intravenous potassium replacement.[id number] 06:53:00 Test Item Value Reference Range Comments MAGNESIUM (BEAKER) (test igrl=139) 2.7 mg/dL 1.6-2.6 Check Serum Potassium level 2 hours after oral potassium replacement completed or 30 min after intravenous potassium replacement.POCT-GLUCOSE [id number] 06:27:00 Test Item Value Reference Range Comments POC-GLUCOSE METER (BEAKER) 113 mg/dL 70-110 TESTED AT [address] (test ystx=0796) [place] [address] BASIC METABOLIC [id number] 02:30:00 Test Item Value Reference Range Comments SODIUM (BEAKER) (test 139 meq/L 136-145 tbgc=281) POTASSIUM (BEAKER) (test 3.8 meq/L 3.5-5.1 cfdt=311) CHLORIDE (BEAKER) (test 95 meq/L 98-107 yxxc=110) CO2 (BEAKER) (test 30 meq/L 22-29 ssqu=146) BLOOD UREA NITROGEN 24 mg/dL 7-21 (BEAKER) (test ejxr=992) CREATININE (BEAKER) (test 0.96 mg/dL 0.57-1.25 ggaf=166) GLUCOSE RANDOM (BEAKER) 122 mg/dL 70-105 (test dshb=733) CALCIUM (BEAKER) (test 11.6 mg/dL 8.4-10.2 jbfg=921) EGFR (BEAKER) (test 57 mL/min/1.73 sq m ESTIMATED GFR IS NOT ymgr=4888) ACCURATE CREATININE CLEARANCE IN PREDICTING GLOMERULAR FILTRATION RATE. ESTIMATED GFR IS NOT APPLICABLE FOR DIALYSIS PATIENTS. [id number] 02:29:00 Test Item Value Reference Range Comments PHOSPHORUS (BEAKER) (test onrp=837) 3.5 mg/dL 2.3-4.7 [id number] 02:29:00 Test Item Value Reference Range Comments MAGNESIUM (BEAKER) (test zbky=518) 2.2 mg/dL 1.6-2.6 [id number] 02:29:00 Test Item Value Reference Range Comments SODIUM (BEAKER) (test zdsx=215) 139 meq/L 136-145 CBC W/PLT COUNT & AUTO [id number] 02:21:00 Test Item Value Reference Range Comments WHITE BLOOD CELL COUNT (BEAKER) (test mbyt=455) 6.2 K/ L 4.0-10.0 RED BLOOD CELL COUNT (BEAKER) (test xnqk=365) 3.77 M/ L 4.00-5.00 HEMOGLOBIN (BEAKER) (test lrud=358) 11.8 GM/DL 12.0-15.0 HEMATOCRIT (BEAKER) (test rena=878) 36.1 % 36.0-45.0 MEAN CORPUSCULAR VOLUME (BEAKER) (test tcxb=596) 95.9 fL 82.0-99.0 MEAN CORPUSCULAR HEMOGLOBIN (BEAKER) (test 31.3 pg 27.0-33.0 hmfq=947) MEAN CORPUSCULAR HEMOGLOBIN CONC (BEAKER) (test 32.6 GM/DL 32.0-36.0 iomf=718) RED CELL DISTRIBUTION WIDTH (BEAKER) (test 16.7 % 10.3-14.2 xpmz=431) PLATELET COUNT (BEAKER) (test babj=518) 247 K/CU MM 150-430 MEAN PLATELET VOLUME (BEAKER) (test rcka=452) 6.3 fL 6.5-10.5 NUCLEATED RED BLOOD CELLS (BEAKER) (test 0 /100 WBC 0-0 wilg=370) NEUTROPHILS RELATIVE PERCENT (BEAKER) (test 73 % acqz=126) LYMPHOCYTES RELATIVE PERCENT (BEAKER) (test 19 % wxip=867) MONOCYTES RELATIVE PERCENT (BEAKER) (test 8 % rcgo=719) EOSINOPHILS RELATIVE PERCENT (BEAKER) (test 0 % qovn=697) BASOPHILS RELATIVE PERCENT (BEAKER) (test 0 % uzwm=237) NEUTROPHILS ABSOLUTE COUNT (BEAKER) (test 4.53 K/ L 1.80-8.00 guim=743) LYMPHOCYTES ABSOLUTE COUNT (BEAKER) (test 1.16 K/ L 1.48-4.50 yito=249) MONOCYTES ABSOLUTE COUNT (BEAKER) (test 0.47 K/ L 0.00-1.30 sngv=982) EOSINOPHILS ABSOLUTE COUNT (BEAKER) (test 0.02 K/ L 0.00-0.50 oswf=949) BASOPHILS ABSOLUTE COUNT (BEAKER) (test 0.00 K/ L 0.00-0.20 jnuk=423) 0.00POCT-GLUCOSE [id number] 00:44:00 Test Item Value Reference Range Comments POC-GLUCOSE METER (BEAKER) 121 mg/dL 70-110 TESTED AT [address] (test ulbx=9243) [facility] [address] [id number] 20:34:00 Test Item Value Reference Range Comments SODIUM (BEAKER) (test juza=216) 138 meq/L 136-145 HEPATIC FUNCTION [id number] 20:34:00 Test Item Value Reference Range Comments TOTAL PROTEIN (BEAKER) (test vnfl=270) 6.7 gm/dL 6.0-8.3 ALBUMIN (BEAKER) (test euqq=3586) 3.6 g/dL 3.5-5.0 BILIRUBIN TOTAL (BEAKER) (test ysal=887) 0.3 mg/dL 0.2-1.2 BILIRUBIN DIRECT (BEAKER) (test tyfa=270) 0.2 mg/dL 0.1-0.5 ALKALINE PHOSPHATASE (BEAKER) (test qips=370) 148 U/L 40-150 AST (SGOT) (BEAKER) (test htkr=049) 15 U/L 5-34 ALT (SGPT) (BEAKER) (test opck=190) 15 U/L 6-55 [id number] 20:25:00 Test Item Value Reference Range Comments AMMONIA (BEAKER) (test zoxz=753) 30 mol/L 18-72 POCT-GLUCOSE [id number] 19:58:00 Test Item Value Reference Range Comments POC-GLUCOSE METER (BEAKER) 125 mg/dL 70-110 TESTED AT [address] (test uxng=1589) [facility] [address] [id number] 14:30:00 Test Item Value Reference Range Comments RPR SCREEN (BEAKER) (test icad=466) Nonreactive Nonreactive [id number] 13:35:00 Test Item Value Reference Range Comments SODIUM (BEAKER) (test ippq=945) 136 meq/L 136-145 [id number] 13:23:00 Test Item Value Reference Range Comments CORTISOL, TOTAL (BEAKER) (test rjvn=9908) 11.7 ug/dL 3.7-19.4 POCT-GLUCOSE [id number] 13:22:00 Test Item Value Reference Range Comments POC-GLUCOSE METER (BEAKER) 117 mg/dL 70-[address] [facility] [address] [facility] (test vzja=7322) [facility] [address] B-TYPE NATRIURETIC FACTOR (BNP)2016-12-26 11:55:00 Test Item Value Reference Range Comments B-TYPE NATRIURETIC PEPTIDE (BEAKER) (test 115 pg/mL 0-100 nlvv=890) [id number] 11:43:00 Test Item Value Reference Range Comments MAGNESIUM (BEAKER) (test 2.5 mg/dL 1.6-2.6 Specimen slightly hemolyzed iojc=269) OSMOLALITY, [id number] 04:32:00 Test Item Value Reference Range Comments OSMOLALITY, SERUM (BEAKER) (test twwo=669) 303 mOsm/kg 275-295 LIPID [id number] 04:04:00 Test Item Value Reference Range Comments TRIGLYCERIDES (BEAKER) (test lefk=213) 94 mg/dL CHOLESTEROL (BEAKER) (test hqnn=941) 197 mg/dL HDL CHOLESTEROL (BEAKER) (test zqtv=431) 54 mg/dL LDL CHOLESTEROL CALCULATED (BEAKER) (test 124 mg/dL wshr=836) Triglyceride Reference Range: Low Risk <150 Borderline 150- 199 High Risk 200-499 Very High Risk >=500Cholesterol Reference Range: Low Risk <200 Borderline 200-239 High Risk > 240HDL Cholesterol Reference Range: Low Risk >=60 High Risk <40LDL Cholesterol Reference Range: Optimal <100 Near Optimal 100-129 Borderline 130-159 High 160-189 Very High >=190 [id number] 04:03:00 Test Item Value Reference Range Comments PHOSPHORUS (BEAKER) (test vzin=133) 3.2 mg/dL 2.3-4.7 BASIC METABOLIC [id number] 04:03:00 Test Item Value Reference Range Comments SODIUM (BEAKER) (test 130 meq/L 136-145 mmiy=216) POTASSIUM (BEAKER) (test 4.0 meq/L 3.5-5.1 ohck=145) CHLORIDE (BEAKER) (test 89 meq/L 98-107 yflv=096) CO2 (BEAKER) (test 30 meq/L 22-29 xmgd=780) BLOOD UREA NITROGEN 24 mg/dL 7-21 (BEAKER) (test qtuj=768) CREATININE (BEAKER) (test 0.96 mg/dL 0.57-1.25 qpxu=014) GLUCOSE RANDOM (BEAKER) 111 mg/dL 70-105 (test focr=835) CALCIUM (BEAKER) (test 11.1 mg/dL 8.4-10.2 lklw=439) EGFR (BEAKER) (test 57 mL/min/1.73 sq m ESTIMATED GFR IS NOT vshs=2798) ACCURATE CREATININE CLEARANCE IN PREDICTING GLOMERULAR FILTRATION RATE. ESTIMATED GFR IS NOT APPLICABLE FOR DIALYSIS PATIENTS. CBC W/PLT COUNT & AUTO [id number] 03:43:00 Test Item Value Reference Range Comments WHITE BLOOD CELL COUNT (BEAKER) (test cnzb=874) 6.9 K/ L 4.0-10.0 RED BLOOD CELL COUNT (BEAKER) (test vhmf=192) 3.81 M/ L 4.00-5.00 HEMOGLOBIN (BEAKER) (test bgry=168) 12.0 GM/DL 12.0-15.0 HEMATOCRIT (BEAKER) (test pcuz=661) 35.6 % 36.0-45.0 MEAN CORPUSCULAR VOLUME (BEAKER) (test nkja=497) 93.4 fL 82.0-99.0 MEAN CORPUSCULAR HEMOGLOBIN (BEAKER) (test 31.4 pg 27.0-33.0 jqgr=594) MEAN CORPUSCULAR HEMOGLOBIN CONC (BEAKER) (test 33.6 GM/DL 32.0-36.0 jsxi=415) RED CELL DISTRIBUTION WIDTH (BEAKER) (test 15.4 % 10.3-14.2 zwca=355) PLATELET COUNT (BEAKER) (test gwzl=999) 250 K/CU MM 150-430 MEAN PLATELET VOLUME (BEAKER) (test syxj=309) 6.0 fL 6.5-10.5 NUCLEATED RED BLOOD CELLS (BEAKER) (test 0 /100 WBC 0-0 bgny=307) NEUTROPHILS RELATIVE PERCENT (BEAKER) (test 67 % kwqk=925) LYMPHOCYTES RELATIVE PERCENT (BEAKER) (test 20 % nsjx=292) MONOCYTES RELATIVE PERCENT (BEAKER) (test 12 % sajz=747) EOSINOPHILS RELATIVE PERCENT (BEAKER) (test 1 % gxmj=935) BASOPHILS RELATIVE PERCENT (BEAKER) (test 0 % nkna=651) NEUTROPHILS ABSOLUTE COUNT (BEAKER) (test 4.64 K/ L 1.80-8.00 wgoh=268) LYMPHOCYTES ABSOLUTE COUNT (BEAKER) (test 1.38 K/ L 1.48-4.50 qltb=904) MONOCYTES ABSOLUTE COUNT (BEAKER) (test 0.81 K/ L 0.00-1.30 wipm=210) EOSINOPHILS ABSOLUTE COUNT (BEAKER) (test 0.05 K/ L 0.00-0.50 kugm=510) BASOPHILS ABSOLUTE COUNT (BEAKER) (test 0.03 K/ L 0.00-0.20 aitm=025) [id number] 01:55:00 Test Item Value Reference Range Comments POTASSIUM (BEAKER) (test noie=954) 3.2 meq/L 3.5-5.1 [id number] 01:55:00 Test Item Value Reference Range Comments MAGNESIUM (BEAKER) (test hold=217) 1.7 mg/dL 1.6-2.6 TROPONIN [id number] 01:21:00 Test Item Value Reference Range Comments TROPONIN I (BEAKER) (test nply=174) 0.01 ng/mL 0.00-0.03 Effective 08/19/2014: Reference Range [...] acidosis, acute neurological disease, and persistent tachyarrhythmia.POCT-GLUCOSE [id number] 01:03:00 Test Item Value Reference Range Comments POC-GLUCOSE METER (BEAKER) 161 mg/dL 70-[address] [facility] [address] (test bmrw=1900) [facility] [address] POCT-GLUCOSE [id number] 00:22:00 Test Item Value Reference Range Comments POC-GLUCOSE METER (BEAKER) 62 mg/dL 70-110 Notified CICI COTO/TESTED AT [facility] (test wuir=9245) [address] [facility] [address] HEMOGLOBIN [id number] 22:44:00 Test Item Value Reference Range Comments HEMOGLOBIN A1C (BEAKER) (test qseo=273) 5.0 % 4.3-6.1 TSH/FREE T4 IF [id number] 21:14:00 Test Item Value Reference Range Comments THYROID STIMULATING HORMONE (BEAKER) (test 2.66 uIU/mL 0.35-4.94 vhou=472) VITAMIN B12 AND [id number] 21:14:00 Test Item Value Reference Range Comments VITAMIN B12 (BEAKER) (test zpyp=833) 325 pg/mL 213-816 FOLATE (BEAKER) (test onmd=272) 11.9 ng/mL >=7.0 Effective 08/19/2014: Folate Reference Range ChangeNew: >=7.0 Previous: & gt;=5.4CBC W/PLT COUNT & AUTO [id number] 19:39:00 Test Item Value Reference Range Comments WHITE BLOOD CELL COUNT (BEAKER) (test puxl=237) 5.3 K/ L 4.0-10.0 RED BLOOD CELL COUNT (BEAKER) (test lrtd=766) 3.72 M/ L 4.00-5.00 HEMOGLOBIN (BEAKER) (test kepx=752) 11.6 GM/DL 12.0-15.0 HEMATOCRIT (BEAKER) (test txgm=815) 35.0 % 36.0-45.0 MEAN CORPUSCULAR VOLUME (BEAKER) (test vndy=588) 94.2 fL 82.0-99.0 MEAN CORPUSCULAR HEMOGLOBIN (BEAKER) (test 31.3 pg 27.0-33.0 ynwa=027) MEAN CORPUSCULAR HEMOGLOBIN CONC (BEAKER) (test 33.2 GM/DL 32.0-36.0 ywvt=821) RED CELL DISTRIBUTION WIDTH (BEAKER) (test 16.5 % 10.3-14.2 kcvs=828) PLATELET COUNT (BEAKER) (test lkmg=896) 220 K/CU MM 150-430 MEAN PLATELET VOLUME (BEAKER) (test zdbq=536) 6.2 fL 6.5-10.5 NUCLEATED RED BLOOD CELLS (BEAKER) (test 0 /100 WBC 0-0 kqdy=408) NEUTROPHILS RELATIVE PERCENT (BEAKER) (test 73 % olpq=430) LYMPHOCYTES RELATIVE PERCENT (BEAKER) (test 17 % gimk=450) MONOCYTES RELATIVE PERCENT (BEAKER) (test 9 % foht=801) EOSINOPHILS RELATIVE PERCENT (BEAKER) (test 0 % dkyd=808) BASOPHILS RELATIVE PERCENT (BEAKER) (test 0 % sovc=090) NEUTROPHILS ABSOLUTE COUNT (BEAKER) (test 3.85 K/ L 1.80-8.00 ayih=556) LYMPHOCYTES ABSOLUTE COUNT (BEAKER) (test 0.91 K/ L 1.48-4.50 ydyr=043) MONOCYTES ABSOLUTE COUNT (BEAKER) (test 0.49 K/ L 0.00-1.30 mltu=611) EOSINOPHILS ABSOLUTE COUNT (BEAKER) (test 0.02 K/ L 0.00-0.50 slur=171) BASOPHILS ABSOLUTE COUNT (BEAKER) (test 0.01 K/ L 0.00-0.20 mvgt=508) 0.00TROPONIN [id number] 19:31:00 Test Item Value Reference Range Comments TROPONIN I (BEAKER) (test ubyq=166) < ng/mL 0.00-0.03 Effective 08/19/2014: Reference Range [...] Range Comments B-TYPE NATRIURETIC PEPTIDE (BEAKER) (test rzdc=842) 90 pg/mL 0-100 LIPID [id number] 19:24:00 Test Item Value Reference Range Comments TRIGLYCERIDES (BEAKER) (test eaip=774) 83 mg/dL CHOLESTEROL (BEAKER) (test ikbv=288) 198 mg/dL HDL CHOLESTEROL (BEAKER) (test puyh=224) 54 mg/dL LDL CHOLESTEROL CALCULATED (BEAKER) (test 127 mg/dL seja=552) Triglyceride Reference Range: Low Risk <150 Borderline 150- 199 High Risk 200-499 Very High Risk >=500Cholesterol Reference Range: Low Risk <200 Borderline 200-239 High Risk > 240HDL Cholesterol Reference Range: Low Risk >=60 High Risk <40LDL Cholesterol Reference Range: Optimal <100 Near Optimal 100-129 Borderline 130-159 High 160-189 Very High >=190BASIC METABOLIC [id number] 19:24:00 Test Item Value Reference Range Comments SODIUM (BEAKER) (test 133 meq/L 136-145 lqny=489) POTASSIUM (BEAKER) (test 3.7 meq/L 3.5-5.1 cyvt=476) CHLORIDE (BEAKER) (test 90 meq/L 98-107 xpnu=104) CO2 (BEAKER) (test 31 meq/L 22-29 zofk=126) BLOOD UREA NITROGEN 25 mg/dL 7-21 (BEAKER) (test abpn=502) CREATININE (BEAKER) (test 0.83 mg/dL 0.57-1.25 mxek=090) GLUCOSE RANDOM (BEAKER) 126 mg/dL 70-105 (test eyjh=320) CALCIUM (BEAKER) (test 11.0 mg/dL 8.4-10.2 qzlw=726) EGFR (BEAKER) (test 68 mL/min/1.73 sq m ESTIMATED GFR IS NOT tmzn=1686) ACCURATE CREATININE CLEARANCE IN PREDICTING GLOMERULAR FILTRATION RATE. ESTIMATED GFR IS NOT APPLICABLE FOR DIALYSIS PATIENTS. PROTHROMBIN [id number] 19:17:00 Test Item Value Reference Range Comments PROTIME (BEAKER) (test mgbj=477) 14.1 seconds 11.7-14.7 INR (BEAKER) (test sacu=200) 1.1 <=5.9 RECOMMENDED COUMADIN/WARFARIN INR THERAPY RANGESSTANDARD DOSE: 2.0 - 3.0 Includes: PROPHYLAXIS forvenous thrombosis, systemic embolization; TREATMENT for venous thrombosis and/or pulmonary embolus.HIGH RISK: Target INR is 2.5-3.5 for patients with mechanical heart valves.[id number] 19:17:00 Test Item Value Reference Range Comments PARTIAL THROMBOPLASTIN TIME (BEAKER) (test 24.9 seconds 22.5-36.0 qemb=783) URINALYSIS W/ [id number] 19:15:00 Test Item Value Reference Range Comments COLOR (BEAKER) (test jowi=945) Yellow CLARITY (BEAKER) (test ybey=635) Clear SPECIFIC GRAVITY UA (BEAKER) (test vqfk=664) 1.009 1.001-1.035 PH UA (BEAKER) (test pdph=053) 7.0 5.0-8.0 PROTEIN UA (BEAKER) (test qfxd=633) Negative Negative GLUCOSE UA (BEAKER) (test brrg=622) Negative Negative KETONES UA (BEAKER) (test cyap=156) Negative Negative BILIRUBIN UA (BEAKER) (test hmml=014) Negative Negative BLOOD UA (BEAKER) (test bpqc=223) Negative Negative NITRITE UA (BEAKER) (test namk=189) Negative Negative LEUKOCYTE ESTERASE UA (BEAKER) (test degb=369) Negative Negative UROBILINOGEN UA (BEAKER) (test bfdq=996) 0.2 mg/dL 0.2-1.0 RBC UA (BEAKER) (test nnyf=705) < /HPF WBC UA (BEAKER) (test ckul=651) 1 /HPF SQUAMOUS EPITHELIAL (BEAKER) (test dbiy=615) < /HPF SOURCE(BEAKER) (test qwit=4806) Urine, [place] POCT-GLUCOSE [id number] 18:33:00 Test Item Value Reference Range Comments POC-GLUCOSE METER (BEAKER) 75 mg/dL 70-[address] [facility] [address] (test gqfm=7234) [facility] [address]
--- OUTSIDE RECORDS SUMMARY | 2018-10-15 16:55 | XMS REPORT | Clinical Summary ---
:1945 Author Organization [facility] Address [address] [place] [address] Care Team Providers Name Role Phone Unavailable [...] Not on file Results Not on fileafter 10/14/2017 Insurance Payer Benefit Plan / Group Subscriber ID Type Phone Address MEDICARE MEDICARE A B xxxxxxxxxx Medicare MCR SUPPLEMENT/IND[employer] xxxxxxxx [facility] Advance Directives For more information, please contact:[address] [phone] Code Status Date Activated Date Inactivated Comments Full Code 12/25/2016 5:53 PM 2017 7:51 PM This code status was determined by: Patient
[2018-10-15] MEDS ORDERED: HYDROCODONE/APAP 7.5/325 MG TAB ONE (18:15)
--- NOTE | 2018-10-15 18:24 | RAD REPORT ---
EXAM DESCRIPTION: RAD - Hip Right 2 View - 10/15/2018 6:06 pm CLINICAL HISTORY: Right hip pain FINDINGS: No fracture or dislocation is seen. Bones are osteoporotic If the patient continues to have symptoms to suggest an occult fracture MRI would be recommended
--- NOTE | 2018-10-15 18:26 | RAD REPORT ---
EXAM DESCRIPTION: RAD - Femur Right - 10/15/2018 6:06 pm CLINICAL HISTORY: Right leg pain FINDINGS: No fracture is seen. Bones are osteoporotic. Right knee arthroplasty has been performed
--- NOTE | 2018-10-15 18:46 | EDPHYS ---
Physician Documentation [facility] Name: Rocio Quiroz Age: 73 yrs Sex: Female : 1945 Arrival Date: 10/15/2018 Time: 16:02 Bed X-Ray Private MD: Ozzie Alicea, A ED Physician Tayo Rosa HPI: 10/15 16:29 This 73 yrs old Female presents to ER via EMS with complaints of Fall Injury. jr8 16:29 Details of fall: The patient fell from a height, hoer lift . Onset: The jr8 symptoms/episode began/occurred acutely, today. Associated injuries: The patient sustained right leg. Severity of symptoms: At their worst the symptoms were mild, in the emergency department the symptoms are unchanged. It is unknown whether or not the patient has had similar symptoms in the past. The patient has not recently seen a physician. Patient was being transferred from wheel chair to bed vis hoer lift. Stated that the strap snapped landing her on her right hip and leg. Denies hitting head or neck. No LOC. Pain only to hip and thigh region . Historical: - Allergies: 16:25 Aspirin; tw2 16:25 Haldol; tw2 16:25 Iodine; tw2 16:25 Latex, Natural Rubber; tw2 16:25 Morphine; tw2 16:25 PENICILLINS; tw2 16:25 Ibuprofen; tw2 16:25 Demerol; tw2 16:25 IV Contrast; tw2 - Home Meds: 16:25 clopidogrel 75 mg Oral tab 1 tab once daily [Active]; acetaminophen 325 mg Oral tab 2 tw2 tabs for Fever [Active]; Acidophilus Oral cap [Active]; atorvastatin 40 mg Oral tab 1 tab once daily [Active]; Coreg 25 mg Oral tab 1 tab 2 times per day [Active]; duloxetine 30 mg Oral cpDR 2 caps once daily [Active]; furosemide 40 mg Oral tab [Active]; hydrocodone-acetaminophen 10-325 mg Oral tab 1 tab every 6 hours for Pain [Active]; Vitamin B-12 1,000 mcg Oral tab [Active]; Miralax 17 gram/dose Oral powd once daily [Active]; montelukast 10 mg Oral tab 1 tab once daily [Active]; omeprazole 20 mg Oral cpDR 1 cap once daily [Active]; melatonin 3 mg Oral tab [Active]; oxazepam 30 mg Oral cap [Active]; prednisone 2.5 mg Oral tab 1 tab 3 times per day [Active]; tramadol 50 mg Oral tab 1 tab every 6 hours [Active]; - PMHx: 16:25 Atrial Fib; Anemia; Cerebral infarction; Sleep Apnea; vitamin d deficiency; tw2 - Immunization history: Last tetanus immunization: unknown. - Social history:: Smoking status: . - Ebola Screening: : Patient denies travel to an Ebola-affected area in the 21 days before illness onset. ROS: 16:29 Eyes: Negative for injury, pain, redness, and discharge, ENT: Negative for injury, jr8 pain, and discharge, Neck: Negative for injury, pain, and swelling, Cardiovascular: Negative for chest pain, palpitations, and edema, Respiratory: Negative for shortness of breath, cough, wheezing, and pleuritic chest pain, Abdomen/GI: Negative for abdominal pain, nausea, vomiting, diarrhea, and constipation, Back: Negative for injury and pain, Skin: Negative for injury, rash, and discoloration, Neuro: Negative for headache, weakness, numbness, tingling, and seizure. 16:29 MS/extremity: Positive for pain, tenderness, of the right leg. Exam: 16:29 Eyes: Pupils equal round and reactive to light, extra-ocular motions intact. Lids and jr8 lashes normal. Conjunctiva and sclera are non-icteric and not injected. Cornea within normal limits. Periorbital areas with no swelling, redness, or edema. ENT: Nares patent. No nasal discharge, no septal abnormalities noted. Tympanic membranes are normal and external auditory canals are clear. Oropharynx with no redness, swelling, or masses, exudates, or evidence of obstruction, uvula midline. Mucous membranes moist. Neck: Trachea midline, no thyromegaly or masses palpated, and no cervical lymphadenopathy. Supple, full range of motion without nuchal rigidity, or vertebral point tenderness. No Meningismus. Cardiovascular: Regular rate and rhythm with a normal S1 and S2. No gallops, murmurs, or rubs. Normal PMI, no JVD. No pulse deficits. Respiratory: Lungs have equal breath sounds bilaterally, clear to auscultation and percussion. No rales, rhonchi or wheezes noted. No increased work of breathing, no retractions or nasal flaring. Abdomen/GI: Soft, non-tender, with normal bowel sounds. No distension or tympany. No guarding or rebound. No evidence of tenderness throughout. Back: No spinal tenderness. No costovertebral tenderness. Full range of motion. Skin: Warm, dry with normal turgor. Normal color with no rashes, no lesions, and no evidence of cellulitis. Neuro: Awake and alert, GCS 15, oriented to person, place, time, and situation. Cranial nerves II-XII grossly intact. Motor strength 5/5 in all extremities. Sensory grossly intact. 16:29 Musculoskeletal/extremity: Extremities: grossly normal except: noted in the right leg: pain, tenderness, to lateral hip and mid thigh, ROM: intact in all extremities, Circulation is intact in all extremities. Sensation intact. Vital Signs: 16:12 BP 114 / 68; Pulse 83; Resp 17; Temp 98.1(O); Pulse Ox 96% on R/A; Pain 9/10; tw2 18:08 BP 118 / 81; Pulse 78; Resp 17; Pulse Ox 98% on R/A; aj 19:05 BP 115 / 75; Pulse 75; Resp 16; Pulse Ox 100% ; rr5 20:30 BP 118 / 70; Pulse 71; Resp 16; Pulse Ox 99% ; rr5 Pharr Coma Score: 16:20 Eye Response: spontaneous(4). Verbal Response: oriented(5). Motor Response: obeys tw2 commands(6). Total: 15. Trauma Score (Adult): 16:20 Eye Response: spontaneous(1); Verbal Response: oriented(1); Motor Response: obeys tw2 commands(2); Systolic BP: > 89 mm Hg(4); Respiratory Rate: 10 to 29 per min(4); Amy Score: 15; Trauma Score: 12 MDM: 16:08 Patient medically screened. jr8 18:44 Data reviewed: vital signs, nurses notes, radiologic studies, plain films, and as a jr8 result, I will discharge patient. Data interpreted: Pulse oximetry: on room air is 98 %. Interpretation: normal. Counseling: I had a detailed discussion with the patient and/or guardian regarding: the historical points, exam findings, and any diagnostic results supporting the discharge/admit diagnosis, radiology results, the need for outpatient follow jerzy, a family practitioner, to return to the emergency department if symptoms worsen or persist or if there are any questions or concerns that arise at home. 10/15 16:23 Order name: XRAY Hip RIGHT 2 view; Complete Time: 18:44 jr8 10/15 16:23 Order name: XRAY Femur RIGHT; Complete Time: 18:44 8 Administered Medications: 18:08 Drug: [place] (7.5 mg-325 mg) 1 tabs Route: PO; lise 20:30 Follow up: Response: No adverse reaction rr5 Disposition: 10/16 06:50 Co-signature as Attending Physician, Tayo Rosa MD I agree with the assessment and ashish plan of care. Disposition: 10/15/18 18:45 Discharged to Home. Impression: Contusion of right hip. - Condition is Stable. - Discharge Instructions: Hip Pain. - SBAR form, Medication Reconciliation Form, Thank You Letter, Antibiotic Education, Prescription Opioid Use form. - Follow up: Private Physician; When: 5 - 6 days; Reason: Recheck today's complaints, Continuance of care, Re-evaluation by your physician. - Problem is new. - Symptoms have improved. Signatures: Dispatcher [employer] EDMS Roxi Valentino RN RN aj Anderson, Corey, MD MD cha Roszak, Josh, PA PA jr8 Trish Flores RN RN tw2 Osmar Zelaya RN RN rr5 Corrections: (The following items were deleted from the chart) 10/15 16:32 16:29 Eyes: Pupils equal round and reactive to light, extra-ocular motions intact. Lids jr8 and lashes normal. Conjunctiva and sclera are non-icteric and not injected. Cornea within normal limits. Periorbital areas with no swelling, redness, or edema. ENT: Nares patent. No nasal discharge, no septal abnormalities noted. Tympanic membranes are normal and external auditory canals are clear. Oropharynx with no redness, swelling, or masses, exudates, or evidence of obstruction, uvula midline. Mucous membranes moist. Neck: Trachea midline, no thyromegaly or masses palpated, and no cervical lymphadenopathy. Supple, full range of motion without nuchal rigidity, or vertebral point tenderness. No Meningismus. Cardiovascular: Regular rate and rhythm with a normal S1 and S2. No gallops, murmurs, or rubs. Normal PMI, no JVD. No pulse deficits. Respiratory: Lungs have equal breath sounds bilaterally, clear to auscultation and percussion. No rales, rhonchi or wheezes noted. No increased work of breathing, no retractions or nasal flaring. Abdomen/GI: Soft, non-tender, with normal bowel sounds. No distension or tympany. No guarding or rebound. No evidence of tenderness throughout. Back: No spinal tenderness. No costovertebral tenderness. Full range of motion. Skin: Warm, dry with normal turgor. Normal color with no rashes, no lesions, and no evidence of cellulitis. Neuro: Awake and alert, GCS 15, oriented to person, place, time, and situation. Cranial nerves II-XII grossly intact. Motor strength 5/5 in all extremities. Sensory grossly intact. Cerebellar exam normal. Normal gait. jr8 21:04 18:45 10/15/2018 18:45 Discharged to Home. Impression: Contusion of right hip. rr5 Condition is Stable. Forms are Medication Reconciliation Form, Thank You Letter, Antibiotic Education, Prescription Opioid Use. Follow up: Private Physician; When: 5 - 6 days; Reason: Recheck today's complaints, Continuance of care, Re-evaluation by your physician. Problem is new. Symptoms have improved. jr8
--- NOTE | 2018-10-15 18:46 | ER ---
Nurse's Notes [facility] Name: Rocio Quiroz Age: 73 yrs Sex: Female : 1945 Arrival Date: 10/15/2018 Time: 16:02 Bed X-Ray Private MD: Ozzie Alicea A Diagnosis: Contusion of right hip Presentation: 10/15 16:09 Presenting complaint: EMS states: pt from [facility], pt was in brain tw2 lift off the ground, approx 5 feet, and a strap broke about 1530 today from the brain lift and pt went to the ground on her bottom, she is c/o soreness to her left leg and hip, pt has surgery on her left hip 09/25/18, pt is on blood thinners and a long list of medications. Transition of care: patient was received from another setting of care (long-term care facility), [facility]. Onset of symptoms was October 15, 2018. Risk Assessment: Do you want to hurt yourself or someone else? Patient reports no desire to harm self or others. Initial Sepsis Screen: Does the patient meet any 2 criteria? No. Patient's initial sepsis screen is negative. Does the patient have a suspected source of infection? No. Patient's initial sepsis screen is negative. Care prior to arrival: None. 16:09 Method Of Arrival: EMS: [facility] tw2 16:09 Acuity: LINDSEY 2 tw2 16:10 Mechanism of Injury: Fall in brain lift to ground, ems reports approximately 5 feet. tw2 Trauma event details: Injury occurred in the [facility]. Triage Assessment: 16:10 General: Appears in no apparent distress. obese, Behavior is calm, cooperative, tw2 appropriate for age. Trauma Activation: Alert Physician: ED Physician; Name: ; Notified At: ; Arrived At: Physician: General Surgeon; Name: ; Notified At: ; Arrived At: Physician: Radiology; Name: ; Notified At: ; Arrived At: Physician: Respiratory; Name: ; Notified At: ; Arrived At: Physician: Lab; Name: ; Notified At: ; Arrived At: Historical: - Allergies: 16:25 Aspirin; tw2 16:25 Haldol; tw2 16:25 Iodine; tw2 16:25 Latex, Natural Rubber; tw2 16:25 Morphine; tw2 16:25 PENICILLINS; tw2 16:25 Ibuprofen; tw2 16:25 Demerol; tw2 16:25 IV Contrast; tw2 - Home Meds: 16:25 clopidogrel 75 mg Oral tab 1 tab once daily [Active]; acetaminophen 325 mg Oral tab 2 tw2 tabs for Fever [Active]; Acidophilus Oral cap [Active]; atorvastatin 40 mg Oral tab 1 tab once daily [Active]; Coreg 25 mg Oral tab 1 tab 2 times per day [Active]; duloxetine 30 mg Oral cpDR 2 caps once daily [Active]; furosemide 40 mg Oral tab [Active]; hydrocodone-acetaminophen 10-325 mg Oral tab 1 tab every 6 hours for Pain [Active]; Vitamin B-12 1,000 mcg Oral tab [Active]; Miralax 17 gram/dose Oral powd once daily [Active]; montelukast 10 mg Oral tab 1 tab once daily [Active]; omeprazole 20 mg Oral cpDR 1 cap once daily [Active]; melatonin 3 mg Oral tab [Active]; oxazepam 30 mg Oral cap [Active]; prednisone 2.5 mg Oral tab 1 tab 3 times per day [Active]; tramadol 50 mg Oral tab 1 tab every 6 hours [Active]; - PMHx: 16:25 Atrial Fib; Anemia; Cerebral infarction; Sleep Apnea; vitamin d deficiency; tw2 - Immunization history: Last tetanus immunization: unknown. - Social history:: Smoking status: . - Ebola Screening: : Patient denies travel to an Ebola-affected area in the 21 days before illness onset. Screenin:10 Abuse screen: Denies threats or abuse. Nutritional screening: No deficits noted. tw2 Tuberculosis screening: No symptoms or risk factors identified. Fall Risk Secondary diagnosis (15 points) impaired mobility. Primary Survey: 16:15 NO uncontrolled hemorrhage observed. A: The patient is alert. Airway: patent. tw2 Breathing/Chest: Respiratory pattern: regular, Respiratory effort: spontaneous, unlabored, Breath sounds: clear, bilaterally. Circulation: Heart tones present. Skin temperature: dry, cool. Disability Alert. Exposure/Environment: A warming method has been applied: A warm blanket has been provided to the patient. 17:15 Reassessment Airway Airway Patent Breathing/Chest Respiratory pattern Regular tw2 Respiratory effort Spontaneous Unlabored Breath sounds Clear Chest inspection Symmetrical Circulation Heart tones Present Disability Alert. Secondary Survey: 16:15 HEENT: No deficits noted. Gastrointestinal: No deficits noted. Abdomen is soft, Bowel tw2 sounds present in all quadrants. : No signs and/or symptoms were reported regarding the genitourinary system. Musculoskeletal: Circulation, motion, and sensation intact. Reports pain in right leg and right hip area. Assessment: 16:10 General: Appears in no apparent distress. obese, Behavior is calm, cooperative, tw2 appropriate for age. Pain: Complains of pain in right leg and right hip. Neuro: Level of Consciousness is awake, alert, obeys commands, Oriented to person, place, time, situation. Cardiovascular: Heart tones S1 S2 Patient's skin is warm and dry. Respiratory: Airway is patent Respiratory effort is even, unlabored, Respiratory pattern is regular, symmetrical, Breath sounds are clear bilaterally. GI: No signs and/or symptoms were reported involving the gastrointestinal system. Abdomen is round non-distended, obese, Bowel sounds present X 4 quads. : No signs and/or symptoms were reported regarding the genitourinary system. EENT: No signs and/or symptoms were reported regarding the EENT system. Derm: Skin temperature is cool. Musculoskeletal: Circulation, motion, and sensation intact. 16:19 Reassessment: provider ELEANOR Marina at bedside at this time. tw2 18:08 General: Appears in no apparent distress. comfortable, obese, Behavior is calm, aj cooperative, appropriate for age. Neuro: Level of Consciousness is awake, alert, obeys commands, Oriented to person, place, time, situation. Respiratory: Airway is patent Respiratory effort is even, unlabored, Respiratory pattern is regular, symmetrical. GI: Abdomen is non-distended, obese. Derm: Skin is intact, is healthy with good turgor, Skin is pink, warm \T\ dry. normal. Musculoskeletal: Reports pain in right leg. 19:05 General: Appears in no apparent distress. comfortable, Behavior is calm, cooperative, rr5 appropriate for age. Pain: Complains of pain in right leg. 19:05 Reassessment: [place] [facility]. Neuro: Level of rr5 Consciousness is awake, alert, obeys commands, Oriented to person, place, time, situation, Appropriate for age. Cardiovascular: Capillary refill < 3 seconds Patient's skin is warm and dry. Respiratory: Airway is patent Respiratory effort is even, unlabored, Respiratory pattern is regular, symmetrical. GI: No signs and/or symptoms were reported involving the gastrointestinal system. : No signs and/or symptoms were reported regarding the genitourinary system. EENT: No signs and/or symptoms were reported regarding the EENT system. Derm: Skin is intact, is healthy with good turgor, Skin temperature is cool. Musculoskeletal: Circulation, motion, and sensation intact. Capillary refill < 3 seconds. 20:00 Reassessment: Patient appears in no apparent distress at this time. No changes from rr5 previously documented assessment. no complaints made. awaiting for EMS transport. 20:55 Reassessment: Patient appears in no apparent distress at this time. No changes from rr5 previously documented assessment. Patient and/or family updated on plan of care and expected duration. Pain level reassessed. no complaints made. handover to [facility]. vitally stable. Vital Signs: 16:12 BP 114 / 68; Pulse 83; Resp 17; Temp 98.1(O); Pulse Ox 96% on R/A; Pain 9/10; tw2 18:08 BP 118 / 81; Pulse 78; Resp 17; Pulse Ox 98% on R/A; aj 19:05 BP 115 / 75; Pulse 75; Resp 16; Pulse Ox 100% ; rr5 20:30 BP 118 / 70; Pulse 71; Resp 16; Pulse Ox 99% ; rr5 Amy Coma Score: 16:20 Eye Response: spontaneous(4). Verbal Response: oriented(5). Motor Response: obeys tw2 commands(6). Total: 15. Trauma Score (Adult): 16:20 Eye Response: spontaneous(1); Verbal Response: oriented(1); Motor Response: obeys tw2 commands(2); Systolic BP: > 89 mm Hg(4); Respiratory Rate: 10 to 29 per min(4); Amy Score: 15; Trauma Score: 12 ED Course: 16:02 Patient arrived in ED. rg4 16:02 Ozzie Alicea MD is Private Physician. rg4 16:08 Trish Flores RN is Primary Nurse. tw2 16:08 [facility]. jr8 16:08 Tayo Rosa MD is Attending Physician. jr8 16:10 Bed in low position. Call light in reach. Side rails up X2. newspaper photographer on. Pulse tw2 ox on. NIBP on. Warm blanket given. 16:10 Patient maintains SpO2 saturation greater than 95% on room air. tw2 16:10 Thermoregulation: warm blanket given to patient. tw2 16:11 Triage completed. tw2 16:14 Arm band placed on. tw2 17:35 Report given to CICI Diane. tw2 17:50 Primary Nurse role handed off by Trish Flores, CICI tw2 18:07 Roxi Valentino, CICI is Primary Nurse. aj 18:07 XRAY Hip RIGHT 2 view In Process Unspecified. EDMS 18:07 XRAY Femur RIGHT In Process Unspecified. 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 20:55 No provider procedures requiring assistance completed. Patient did not have IV access rr5 during this emergency room visit. Administered Medications: 18:08 Drug: [place] (7.5 mg-325 mg) 1 tabs Route: PO; aj 20:30 Follow up: Response: No adverse reaction rr5 Intake: 17:43 PO: 0ml; Total: 0ml. tw2 Outcome: 17:43 Patient's length of stay in the Emergency Department was greater than 2 hours. d/t tw2 imagingPatient's length of stay extended due to 18:45 Discharge ordered by . jr8 20:55 Discharged to residential. [facility]. EMS called by [facility] staff rr5 20:55 Condition: stable 20:55 Discharge instructions given to patient, family, Instructed on discharge instructions, follow up and referral plans. Demonstrated understanding of instructions, follow-up care. 21:04 Patient left the ED. rr5 Signatures: Dispatcher [employer] EDRoxi De Leon, RN Salvador Fishman PA PA jr8 Trish Flores RN RN tw2 Desiree Simons 4 Osmar Zelaya RN RN rr5 Corrections: (The following items were deleted from the chart) 16:19 16:09 Acuity: LINDSEY 3 tw2 tw2 16:19 16:19 Acuity: LINDSEY 2 tw2 tw2
[2018-10-15 21:51] VITALS: TEMP 98.1
[2018-10-15 21:55] VITALS: BP 118/70; O2SAT 99
== END 2018-10-15 21:04 | disposition home or self-care (01) ==
LOC: ER 16:02
DX: S70.01XA Contusion of right hip, initial encounter (principal); W17.89XA Other fall from one level to another, initial encounter; Y93.89 Activity, other specified; Y92.129 Unspecified place in nursing home as the place of occurrence of the external cause; Z88.6 Allergy status to analgesic agent; Z88.0 Allergy status to penicillin; Z91.09 Other allergy status, other than to drugs and biological substances; Z91.040 Latex allergy status; I48.91 Unspecified atrial fibrillation; I63.9 Cerebral infarction, unspecified
CPT/HCPCS: 99285

== ENCOUNTER 2019-03-06 12:53 | Emergency (ER) | payer OTHER ==
--- OUTSIDE RECORDS SUMMARY | 2019-03-06 12:56 | XMS REPORT | Continuity of Care Document ---
:1945 Author Organization Interface Problems Problem Status Onset Classification Date Comments Source Date Reported LT FEMUR Active [facility] FX,ATRIAL FIB 8 Medical W/RVR,S/P FALL Center LEFT DISTAL Active [facility] FEMUR FX--S/P 8 Medical FALL Center LT FEMUR Active [facility] FX,ATRIAL FIB 8 Medical W/RVR,S/P FALL Center PERIPROSTH Active [facility] FRACTURE AROUND Medical OTHER INTERNA Center UNSPECIFIED Active [facility] ATRIAL Medical FIBRILLATION Center Medications Medication Details Route Status Patient Ordering Order Source Instructions Provider Date Allergies, Adverse Reactions, Alerts Substance Category Reaction Severity Reaction Status Date Comments Source type Reported Immunizations Immunization Date Given Site Status Last Updated Comments Source Results Order Name Results Value Reference Date Interpretation Comments Source Range Knee 1-2 Knee 1-2 EXAM: XR LEFT KNEE 2 VIEWS 09/24 - [facility] Views Views - Medical unilateral unilateral Center DX DX DATE: 09/24/2018 14:30 COIN MACHINE COLLECTOR Read by: Alice Farmer MD Dictated Date/time: 09/24/18 15:30 Electronically Signed by: Alice Farmer MD 09/24/18 15:31 FINAL REPORT INDICATION: POST-OP - OR 26 COMPARISON: 09/22/2018 TECHNIQUE: AP and lateral radiographs of the knee FINDINGS: Postoperative imaging demonstrates satisfactory appearance and alignment of the left distal femur periprosthetic fracture immobilized with the lateral condylar combination locking plate and screws. There is no excessive joint fluid. Diffuse edema and evidence of recent surgery is noted. IMPRESSION: 1. Satisfactory postoperative appearance of the left distal femur periprosthetic fracture stabilization. Chest 1view Chest 1view EXAM: XR CHEST 1 VIEW 09/22 - [facility] DX - Medical Center DATE: 09/22/2018 20:00 COIN MACHINE COLLECTOR Read by: Rosaura Vargas MD Dictated Date/time: 09/23/18 15:14 Electronically Signed by: Rosaura Vargas MD 09/23/18 17:21 FINAL REPORT INDICATION: - picc line placement. FINDINGS: Comparison is made to September 22 at 1333 hours. Cardiomediastinal silhouette is unchanged. Lungs are low in volume, with left lower lobe platelike atelectasis. No pleural effusions. Right-sided PICC line remains in place. IMPRESSION: No significant change. Chest 1view Chest 1view EXAM: XR CHEST 1 VIEW 09/22 - [place] DX DX /2017 - Medical This report was dictated by a Adoption Social Worker/Fellow/Physician Food Service Cashier. I have personally Center reviewed the images as well as the interpretation and agree with the findings. DATE: 09/22/2018 13:15 COIN MACHINE COLLECTOR Read by: Harrison Smith MD Resident/Fellow/Physician Food Service Cashier: Harrison Smith MD Dictated Date/time: 09/22/18 14:03 Electronically Signed by: Wu Baker MD 09/22/18 14:12 FINAL REPORT INDICATION: - Pre-op COMPARISON: Chest x-ray 09/21/2018 at 2120 hours UT SECTION: Chest TECHNIQUE: AP chest. FINDINGS: Lines, tubes and hardware: None. Lungs and pleura: Lung volumes remain low. Trace hazy opacity seen over the left lung base. No pleural effusion or pneumothorax. Heart and mediastinum: The heart size is normal for technique. The mediastinal contours are normal. Pulmonary vascularity is normal. Bones: No acute abnormality. IMPRESSION: Low lung volumes with left basilar subsegmental atelectasis. Knee 3 Knee 3 EXAM: XR RIGHT KNEE 3 VIEWS 09/22 - [facility] views DX views DX /2018 - Medical This report was dictated by a Adoption Social Worker/Fellow/Physician Food Service Cashier. I have personally Center reviewed the images as well as the interpretation and agree with the findings. DATE: 09/22/2018 9:40 COIN MACHINE COLLECTOR Read by: Harrison Smith MD Resident/Fellow/Physician Food Service Cashier: Harrison Smith MD Dictated Date/time: 09/22/18 10:08 Electronically Signed by: Mundo Guajardo MD 09/22/18 11:39 FINAL REPORT INDICATION: Fracture COMPARISON: X-ray right femur 09/22/2018 at 0424 hours UT SECTION: ER TECHNIQUE: 3 views of the knee FINDINGS: Diffuse osteopenia noted. Unchanged alignment of periprosthetic supracondylar fracture of the distal femur with impaction and posterior displacement of the distal fracture fragment. Joint alignment is normal. The joint effusion has increased. Surgical changes of total knee arthroplasty without evidence of hardware loosening. IMPRESSION: Unchanged alignment of periprosthetic distal right femur fracture. Increased knee joint effusion. Spine-Outsi Spine-Outsi EXAM: CT CERVICAL SPINE WITHOUT CONTRAST 2ND OPINION INTERPRETATION 09/22 - [facility] Consult de Consult 2018 - Medical CT CT This report was dictated by a Adoption Social Worker/Fellow/ Physician Food Service Cashier. I have personally Center reviewed the images as well as the interpretation and agree with the findings. DATE: 09/22/2018 7:44 COIN MACHINE COLLECTOR Read by: Harrison Smith MD Resident/Fellow/Physician Food Service Cashier: Harrison Smith MD Dictated Date/time: 09/22/18 08:08 Electronically Signed by: Mundo Guajardo MD 09/22/18 10:30 FINAL REPORT INDICATION: Fall, head and neck injury second interpretation requested COMPARISON: None TECHNIQUE: Noncontrast CT images of the cervical spine, obtained at [facility]. Axial, sagittal and coronal images provided. UT SECTION: ER FINDINGS: Motion artifact and low dose limit evaluation. The spine is imaged from the skull base to the level of C7. Reversal of cervical lordosis due to positioning and/or muscle spasm. Minimal degenerative grade 1 anterolisthesis present at C3-C4. Diffuse osteopenia noted. Vertebral body heights are normal. No cervical spine fracture is identified. No prevertebral soft tissue edema or hematoma is observed. Severe degenerative disc disease present at C6-C7. Mild degenerative disease present at C4-C5, C5-C6, C7-T1. Disc osteophyte complex bulge and uncovertebral joint hypertrophy present at C5-C6, C6-C7. Moderate right-sided facet arthropathy present most pronounced at C2-C3, C4 -C5, C6-C7, C7-T1. Severe left-sided facet arthropathy present at C2-C3, C3-C4, C4-C5, C5-C6, C7-T1. Mild central canal stenosis present at C6-C7. Right-sided neural foraminal stenosis present at C6-C7. Left-sided neural foraminal stenosis present at C3-C4 C6-C7, C7-T1. IMPRESSION: No cervical spine fractures identified. Multilevel degenerative disc disease, uncovertebral joint hypertrophy, disc -osteophyte complex bulge, and facet joint arthropathy with central canal and neural foraminal stenosis as described. Brain-Outsi Brain-Outsi EXAM: CT BRAIN WITHOUT CONTRAST 09/22 [facility] de Consult de Consult /2018 - Medical CT CT This report was dictated by a Adoption Social Worker/Fellow/ Physician Food Service Cashier. I have personally Center reviewed the images as well as the interpretation and agree with the findings. DATE: 09/22/2018 7:44 COIN MACHINE COLLECTOR Read by: Harrison Smith MD Resident/Fellow/Physician Food Service Cashier: Harrison Smith MD Dictated Date/time: 09/22/18 07:58 Electronically Signed by: Kd Davila 09/22/18 09:59 FINAL REPORT INDICATION: Fall, outside study for 2nd opinion interpretation. COMPARISON: None. TECHNIQUE: Routine axial CT images of the brain were obtained at [facility]. IV contrast: None. UT SECTION: Neuro FINDINGS: Encephalomalacia and gliosis are seen within the right MCA territory, involving the basal ganglia, insula, and anterior temporal lobe. There is mild expansion of the right lateral ventricle and minimal left right midline shift secondary to volume loss. No evidence of acute hydrocephalus. There is no acute intracranial hemorrhage. No evidence of new cortical infarct is seen. There is no edema. There are atherosclerotic calcifications are seen in the carotid siphons. Dental implants are partially imaged. Impacted right maxillary 3rd molar roots extend into the maxillary sinus. The sinuses and skull base are otherwise unremarkable. 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 Superimposed changes of recent infarct cannot be excluded. This could be further evaluated with magnetic resonance imaging if warranted. Agree with outside report. Knee wo Knee wo EXAM: CT RIGHT KNEE WITHOUT CONTRAST 09/22 [facility] contrast contrast /2017 - Medical w/3D CT w/3D CT This report was dictated by a Adoption Social Worker/ Fellow/Physician Food Service Cashier. I have personally Center reviewed the images as well as the interpretation and agree with the findings. DATE: 09/22/2018 7:34 COIN MACHINE COLLECTOR Read by: Harrison Smith MD Resident/Fellow/Physician Food Service Cashier: Harrison Smith MD Dictated Date/time: 09/22/18 09:20 Electronically Signed by: Mundo Guajardo MD 09/22/18 16:49 FINAL REPORT INDICATION: Evaluation of fracture COMPARISON: Right femur radiographs 09/22/2018 at 0302 hours TECHNIQUE: Volumetric CT of the knee is acquired without contrast. Axial, coronal and sagittal images are provided. IV contrast: None. DLP: 108 mGy-cm UT SECTION: ER FINDINGS: Total knee arthroplasty with patellar resurfacing present. No periprosthetic lucency identified. Transverse supracondylar periprosthetic fracture of the distal femur noted. Impaction measuring up to 0.4 cm noted with minimal comminution of anterior cortex noted. One cortex width posterior displacement of the distal distal dominant fragment noted. Joint alignment is normal. Soft tissues: Soft tissue swelling is seen about the knee joint. No radiopaque foreign body or subcutaneous emphysema. No pneumarthrosis. Diffuse muscle atrophy noted. Small lipohemarthrosis noted. IMPRESSION: Transverse periprosthetic supracondylar fracture of the distal right femur with impaction, minimal comminution, and one cortex shaft width posterior displacement. Small lipohemarthrosis. Femur Femur EXAM: XR LEFT FEMUR 2 VIEWS 09/22 - [facility] series DX series DX /2018 - [facility] This report was dictated by a Adoption Social Worker/Fellow/Physician Food Service Cashier. I have personally Center reviewed the images as well as the interpretation and agree with the findings. DATE: 09/22/2018 4:01 COIN MACHINE COLLECTOR Read by: Hans Menon MD Resident/Fellow/Physician Food Service Cashier: Hans Menon MD Dictated Date/time: 09/22/18 06:18 Electronically Signed by: Roxi Obregon MD 09/22/18 06:49 FINAL REPORT INDICATION: - pain post-trauma COMPARISON: Left tibia-fibula radiographs performed earlier on same day. TECHNIQUE: AP and lateral radiographs of the femur UT SECTION: ER FINDINGS: Redemonstration of a mildly displaced supracondylar fracture at the distal metadiaphysis of the femur distal femoral metadiaphyseal fracture with the fracture line extending to the femoral co mponent of the total knee arthroplasty. Alignment appears grossly unchanged given the differences in projection. Total knee arthroplasty hardware appears unchanged. Large knee joint effusion with overlying soft tissue swelling. IMPRESSION: 1. Unchanged appearance of the displaced condylar fracture of the distal metadiaphysis of the left femur distal femoral fracture. 2. Regional soft tissue swelling and left knee effusion are unchanged. Forearm 2 Forearm 2 EXAM: XR LEFT FOREARM 2 VIEWS 09/22 - [facility] views DX views DX /2018 - Medical This report was dictated by a Adoption Social Worker/Fellow/Physician Food Service Cashier. I have personally Center reviewed the images as well as the interpretation and agree with the findings. DATE: 09/22/2018 at 0314 hours Read by: Hans Menon MD Resident/Fellow/Physician Food Service Cashier: Hans Menon MD Dictated Date/time: 09/22/18 03:54 Electronically Signed by: Roxi Obregon MD 09/22/18 04:13 FINAL REPORT INDICATION: - pain post-trauma COMPARISON: None. TECHNIQUE: AP and lateral radiographs of the forearm UT SECTION: ER FINDINGS: There is generalized decreased bone mineral density. No acute fracture or malalignment is identified. There is diffuse osteopenia. No soft tissue abnormality is identified. A peripheral IV is seen in the antecubital fossa. The Hep-Lock catheter is kinked at the skin entrance site upon flexion of the left elbow. IMPRESSION: 1. There is no acute abnormality of the left forearm identified. 2. A Hep-Lock catheter is present at the left antecubital fossa which becomes kinked at the skin entrance site upon left elbow flexion. 3. Generalized osteopenia. Tibia Tibia EXAM: XR LEFT TIBIA 2 VIEWS 09/22 - [facility] fibula fibula /2018 - Medical series DX series DX This report was dictated by a Adoption Social Worker/ Fellow/Physician Food Service Cashier. I have personally Center reviewed the images as well as the interpretation and agree with the findings. DATE: 09/22/2018 at 0302 hours Read by: Hans Menon MD Resident/Fellow/Physician Food Service Cashier: Hans Menon MD Dictated Date/time: 09/22/18 03:49 Electronically Signed by: Roxi Obregon MD 09/22/18 04:11 FINAL REPORT INDICATION: - pain post-trauma COMPARISON: Left femur and tibia-fibula radiographs from 09/21/2018 at 2035 and 2036 hours respectively. TECHNIQUE: AP and lateral radiographs of the tibia UT SECTION: ER FINDINGS: Redemonstration of cruciate retaining total knee arthroplasty. The hardware appears intact. An acute supracondylar fracture of distal left femur is again identified with the fracture line extending into the superior aspect of the femoral prosthesis. There is slight posterior lateral displaceme nt of the condylar fragment of distal femur. No fracture of the tibia, fibula or patella is identified. There is a large suprapatellar joint effusion and overlying soft tissue swelling, greatest laterally. IMPRESSION: 1. An acute supracondylar fracture of distal left femur extends to the superior border of the femoral component of left total knee arthroplasty. There is slight posterior lateral displacement of the left condylar fragment. 2. A left knee effusion is present. 3. There is increased soft tissue edema at the anterior lateral aspect of the left knee. Torso-Outsi Torso-Outsi EXAM: CT CHEST WITHOUT CONTRAST 2ND OPINION INTERPRETATION 09/22 - [facility] Consult de Consult - Medical CT CT EXAM: CT ABDOMEN AND PELVIS WITHOUT CONTRAST 2ND OPINION INTERPRETATION This report was dictated by a Adoption Social Worker/Fellow/ Physician Food Service Cashier. I have personally Center reviewed the images as well as the interpretation and agree with the findings. Read by: Harrison Smith MD Resident/Fellow/ Physician Food Service Cashier: Harrison Smith MD Dictated Date/time: 09/22/18 08:19 DATE: 09/22/2018 1:39 COIN MACHINE COLLECTOR Electronically Signed by: Mundo Guajardo MD 09/22/18 11:07 FINAL REPORT INDICATION: Chest abdomen and pelvis pain after fall, second interpretation requested. COMPARISON: None TECHNIQUE: Second opinion interpretation of the CT chest, abdomen, and pelvis without contrast obtained at [facility] 09/21/[address] of the chest, abdomen and pelvis without contrast. Axial, coronal and sagittal images are provided. FINDINGS: Noncontrast technique decreases sensitivity of the exam for evaluation of traumatic injuries. Lines and tubes: Right PICC tip terminates in the lower SVC. Lower Neck: Supraclavicular soft tissues are unremarkable. Thoracic Aorta and Mediastinum: No mediastinal hematoma or thoracic aortic injury. Dense calcification is seen in the region of the left circumflex coronary artery. No pericardial effusion. Lipomatous hypertrophy of the interatrial septum noted. Lungs, Pleura, Diaphragm: No pulmonary contusions. Trace subsegmental atelectasis. Small calcified granuloma is seen in the left lower lobe. The lungs are otherwise clear. No pleural effusion or pneumothorax. There is subpleural lipomatosis. No diaphragmatic injury. Liver and biliary tree: Punctate calcified granulomas. No injury. No biliary abnormality. Gallbladder: No injuries identified . Pancreas: No injury. Spleen: Punctate calcified granulomas. No injury. Adrenals: No injury. Kidneys and ureters: Bilateral renal atrophy noted. Nonspecific symmetric perinephric stranding noted. No injury. Probable cyst in the left kidney noted. Bladder: Contracted with Thapa catheter in place. No evidence of injury allowing for contraction. Reproductive organs: No injury. Gastrointestinal tract: Small hiatal hernia is present. There is some fecalization of the small bowel. Large stool ball is seen within the rectum. No bowel injury. Normal appendix. Peritoneum and retroperitoneum: No fluid collections or free air. Lymph nodes: Normal. Vasculature: No vascular injury. Scattered atherosclerotic calcifications are seen in the thoracic aorta. Spine/ Bones: Chronic healed fractures of the right 4th through 7th ribs. No acute abnormality of the spine. Grade 1 degenerative anterolisthesis present at L4-L5. Severe degenerative disc disease present at L1-L2, L2-L3. Moderate degenerative disc disease present at L3-L4, L4-L5, L5-S1. Moderate-severe facet arthropathy present throughout the lumbar spine. Multilevel central canal and neural foraminal stenosis present at the lumbar spine. Degenerative changes of the hips and SI joints noted. Moderate degenerative changes pubis present. Soft tissues: Minimal nonspecific body wall edema present in the bilateral flanks and proximal thighs. Diffuse muscle atrophy noted. No acute findings identified. IMPRESSION: No acute intra-thoracic injuries are observed allowing for noncontrast technique. No acute intra-abdominal/pelvic injuries are identified allowing for noncontrast technique. Coronary artery disease. Probable left renal cyst. Degenerative spine and skeletal changes as described. Vital Signs Vital Sign Value Date Comments Source Encounters Location Location Encounter Encounter Reason Attending ADM DC Status Source Details Type Number For Provider Date Date Visit Procedures Procedure Code Date Perfomer Comments Source
--- OUTSIDE RECORDS SUMMARY | 2019-03-06 12:56 | XMS REPORT | Clinical Summary ---
:1945 Author Organization [facility] Address [address] [place] [address] Care Team Providers Name Role Phone Unavailable [...] with breakfast. montelukast Take 10 mg by mouth 0 Active (SINGULAIR) 10 mg nightly. tablet oxazepam (SERAX) 30 Take 30 mg by mouth 0 Active MG capsule 4 (four) times daily. budesonide-formoterol Inhale 2 puffs by 0 Active (SYMBICORT) 160-4.5 mouth via inhaler 2 mcg/actuation inhaler (two) times daily. zolpidem (AMBIEN) 10 Take 10 mg by mouth 0 Active mg tablet every night as needed for Insomnia. carvedilol (COREG) Take 2 tablets (25 0 2017 Active 12.5 MG tablet mg total) by mouth 2 (two) times daily with breakfast and dinner. traMADol (ULTRAM) 50 Take 1 tablet (50 30 tablet 0 2017 Active mg tablet mg total) by mouth every 8 (eight) hours as needed for Pain. Max Daily Amount: 150 mg famotidine (PEPCID) Take 1 tablet (20 0 2017 Active 20 MG tablet mg total) by mouth 2 (two) times daily. zinc oxide-petrolatum Apply 71 g 0 2017 Active (CRITIC-AID) 20-51 % topically 2 (two) Pste topical paste times daily. Active Problems Problem Noted Date Vitamin [...] Not on file Results Not on fileafter 03/05/2018 Insurance Payer Benefit Plan / Group Subscriber ID Type Phone Address MEDICARE MEDICARE A B xxxxxxxxxx Medicare MCR SUPPLEMENT/INDIVIDUAL [employer] xxxxxxxx [facility] Advance Directives For more information, please contact:[address] [phone] Code Status Date Activated Date Inactivated Comments Full Code 12/25/2016 5:53 PM 2017 7:51 PM This code status was determined by: Patient
--- OUTSIDE RECORDS SUMMARY | 2019-03-06 12:58 | XMS REPORT | Summary of Care ---
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 [id number] [U] XRAY KNEE 1 OR 2 VWS RIGHT [id number] XR KNEE 1 OR 2 VWS RIGHT Images acquired, not reported on this accession number. [id number] [U] XRAY ANKLE MIN 3 VWS RIGHT [id number] XR ANKLE MIN 3 VWS RIGHT Images acquired, not reported on this accession number. Plan of Care Name Dates Details Planned Observations Planned Goals not documented Planned Encounters Appointment; FLASH HARDEN P.A. On: 11-Dec-2018 12:00 Interventions Provided Labs/Procedures/Imaging[U] XRAY FEMUR 2 VWS LEFT [id number]; To Be Done: 11 Dec 2018 Instructions Name Dates Details Instructions not documented Encounters Appointment; FLASH HARDEN P.A. On: 05-Oct-2018 10:45 Encounter Diagnosis: Problem not documented Appointment; FLASH HARDEN P.A. On: 13-Nov-2018 12:00 Encounter Diagnosis: Problem not documented Appointment; FLASH HARDEN P.A. On: 11-Dec-2018 12:00 Encounter Diagnosis: Problem not documented
--- OUTSIDE RECORDS SUMMARY | 2019-03-06 12:58 | XMS REPORT ---
:1945 [facility] [address] [place] [address] Care Team Providers Name Role Phone SAMMYDEVYNMichelleCECYNAYANDILAN [...] CREATININE CLEARANCE (BEAKER) (test 47.2 mL/min 70.0-140.0 oxui=669) VOLUME, TOTAL (BEAKER) (test 1050 ml kqqn=0658) CREATININE URINE (BEAKER) (test 78.9 mg/dL pqne=642) [id number] (BEAKER) (test Linda Pitts MD (electronic wawc=5247) signature) POCT-GLUCOSE [id number] 11:37:00 Test Item Value Reference Range Comments POC-GLUCOSE METER (BEAKER) 128 mg/dL 70-[address] [facility] [address] [place] [address] (test fdne=6025) [place] [address] URINE [id number] 11:02:00 Test Item Value Reference Range Comments CULTURE (BEAKER) (test wvph=9371) <10,000 col/mL skin jayshree POCT-GLUCOSE [id number] 06:28:00 Test Item Value Reference Range Comments POC-GLUCOSE METER (BEAKER) 101 mg/dL 70-[address] [facility] [address] [facility] (test fmgg=4887) [facility] [address] POCT-GLUCOSE [id number] 00:46:00 Test Item Value Reference Range Comments POC-GLUCOSE METER (BEAKER) 130 mg/dL 70-110 TESTED AT [address] (test ibjq=1493) [place] [id number] POCT-GLUCOSE [id number] 20:21:00 Test Item Value Reference Range Comments POC-GLUCOSE METER (BEAKER) 133 mg/dL 70-110 TESTED AT [address] (test nhmv=2785) [place] [address] [id number] 18:44:00 Test Item Value Reference Range Comments CREATININE (BEAKER) (test 0.82 mg/dL 0.57-1.25 ijtt=588) EGFR (BEAKER) (test 69 mL/min/1.73 sq m ESTIMATED GFR IS NOT esou=7153) ACCURATE CREATININE CLEARANCE IN PREDICTING GLOMERULAR FILTRATION RATE. ESTIMATED GFR IS NOT APPLICABLE FOR DIALYSIS PATIENTS. POCT-GLUCOSE [id number] 17:11:00 Test Item Value Reference Range Comments POC-GLUCOSE METER (BEAKER) 118 mg/dL 70-110 TESTED AT [address] (test vojh=7313) [place] [id number] POCT-GLUCOSE [id number] 15:29:00 Test Item Value Reference Range Comments POC-GLUCOSE METER (BEAKER) 63 mg/dL 70-110 Notified CICI COTO/TESTED AT [facility] (test kfys=5758) [address] [place] [address] POCT-GLUCOSE [id number] 15:03:00 Test Item Value Reference Range Comments POC-GLUCOSE METER (BEAKER) 51 mg/dL 70-110 Notified CICI COTO/TESTED AT [facility] (test wavy=0710) [address] [place], [place] [address] POCT-GLUCOSE [id number] 11:28:00 Test Item Value Reference Range Comments POC-GLUCOSE METER (BEAKER) 75 mg/dL 70-110 TESTED AT [address] (test vmfg=3755) [place] [address] CALCIUM, 24 HOUR [id number] 09:19:00 Test Item Value Reference Range Comments VOLUME, TOTAL (BEAKER) (test ijjh=6216) 1050 ml CALCIUM URINE (BEAKER) (test oiuw=273) 15.4 mg/dL CALCIUM, 24HR URINE (BEAKER) (test fajy=4168) 162 mg/24 Hr 50-300 VITAMIN D, [id number] 07:18:00 Test Item Value Reference Range Comments VITAMIN D 25-OH (BEAKER) (test yhtc=2446) < ng/mL 13.0-47.8 CBC W/PLT COUNT & AUTO [id number] 07:04:00 Test Item Value Reference Range Comments WHITE BLOOD CELL COUNT (BEAKER) (test tren=873) 13.3 K/ L 4.0-10.0 RED BLOOD CELL COUNT (BEAKER) (test wjdw=278) 3.79 M/ L 4.00-5.00 HEMOGLOBIN (BEAKER) (test npqv=451) 12.3 GM/DL 12.0-15.0 HEMATOCRIT (BEAKER) (test chvb=093) 37.1 % 36.0-45.0 MEAN CORPUSCULAR VOLUME (BEAKER) (test eaus=203) 98.1 fL 82.0-99.0 MEAN CORPUSCULAR HEMOGLOBIN (BEAKER) (test 32.4 pg 27.0-33.0 gyob=252) MEAN CORPUSCULAR HEMOGLOBIN CONC (BEAKER) (test 33.0 GM/DL 32.0-36.0 kgpc=730) RED CELL DISTRIBUTION WIDTH (BEAKER) (test 15.2 % 10.3-14.2 yxcj=885) PLATELET COUNT (BEAKER) (test ytgu=968) 218 K/CU MM 150-430 MEAN PLATELET VOLUME (BEAKER) (test rwum=920) 7.3 fL 6.5-10.5 NUCLEATED RED BLOOD CELLS (BEAKER) (test 0 /100 WBC 0-0 plhy=763) NEUTROPHILS RELATIVE PERCENT (BEAKER) (test 79 % csws=934) LYMPHOCYTES RELATIVE PERCENT (BEAKER) (test 16 % pzhs=691) MONOCYTES RELATIVE PERCENT (BEAKER) (test 5 % bqwg=667) EOSINOPHILS RELATIVE PERCENT (BEAKER) (test 1 % kbmq=130) BASOPHILS RELATIVE PERCENT (BEAKER) (test 0 % jjxl=192) NEUTROPHILS ABSOLUTE COUNT (BEAKER) (test 10.40 K/ L 1.80-8.00 osty=845) LYMPHOCYTES ABSOLUTE COUNT (BEAKER) (test 2.05 K/ L 1.48-4.50 cpwk=778) MONOCYTES ABSOLUTE COUNT (BEAKER) (test 0.69 K/ L 0.00-1.30 ensc=002) EOSINOPHILS ABSOLUTE COUNT (BEAKER) (test 0.09 K/ L 0.00-0.50 mywb=401) BASOPHILS ABSOLUTE COUNT (BEAKER) (test 0.01 K/ L 0.00-0.20 cfnu=278) 0.00BASIC METABOLIC [id number] 07:01:00 Test Item Value Reference Range Comments SODIUM (BEAKER) (test 142 meq/L 136-145 dwep=046) POTASSIUM (BEAKER) (test 3.7 meq/L 3.5-5.1 ggmz=822) CHLORIDE (BEAKER) (test 104 meq/L 98-107 mbsu=306) CO2 (BEAKER) (test 27 meq/L 22-29 ougp=412) BLOOD UREA NITROGEN 35 mg/dL 7-21 (BEAKER) (test ouwd=644) CREATININE (BEAKER) (test 0.86 mg/dL 0.57-1.25 fasm=028) GLUCOSE RANDOM (BEAKER) 144 mg/dL 70-105 (test mnvs=324) CALCIUM (BEAKER) (test 11.6 mg/dL 8.4-10.2 xfua=052) EGFR (BEAKER) (test 65 mL/min/1.73 sq m ESTIMATED GFR IS NOT spas=4799) ACCURATE CREATININE CLEARANCE IN PREDICTING GLOMERULAR FILTRATION RATE. ESTIMATED GFR IS NOT APPLICABLE FOR DIALYSIS PATIENTS. [id number] 06:57:00 Test Item Value Reference Range Comments PHOSPHORUS (BEAKER) (test sqou=259) 3.0 mg/dL 2.3-4.7 [id number] 06:57:00 Test Item Value Reference Range Comments MAGNESIUM (BEAKER) (test fjqo=608) 2.2 mg/dL 1.6-2.6 [id number] 06:34:00 Test Item Value Reference Range Comments ALBUMIN (BEAKER) (test royj=0197) 3.8 g/dL 3.5-5.0 POCT-GLUCOSE [id number] 06:32:00 Test Item Value Reference Range Comments POC-GLUCOSE METER (BEAKER) 104 mg/dL 70-110 TESTED AT [address] (test qxbn=1701) [facility] [address] POCT-GLUCOSE [id number] 23:41:00 Test Item Value Reference Range Comments POC-GLUCOSE METER (BEAKER) 108 mg/dL 70-110 TESTED AT [address] (test stbi=1088) [place] [id number] POCT-GLUCOSE [id number] 17:58:00 Test Item Value Reference Range Comments POC-GLUCOSE METER (BEAKER) 112 mg/dL 70-110 TESTED AT [address] (test qabq=7179) [place] [address] URINALYSIS W/ REFLEX URINE [id number] 16:02:00 Test Item Value Reference Range Comments COLOR (BEAKER) (test vhwq=149) Yellow CLARITY (BEAKER) (test vhqc=088) Clear SPECIFIC GRAVITY UA (BEAKER) (test tbsn=561) 1.015 1.001-1.035 PH UA (BEAKER) (test zbjw=685) 6.0 5.0-8.0 PROTEIN UA (BEAKER) (test cxao=823) Negative Negative GLUCOSE UA (BEAKER) (test teyc=997) Negative Negative KETONES UA (BEAKER) (test gwkf=591) Negative Negative BILIRUBIN UA (BEAKER) (test jnvx=551) Negative Negative BLOOD UA (BEAKER) (test uoki=531) Negative Negative NITRITE UA (BEAKER) (test lgcj=057) Negative Negative LEUKOCYTE ESTERASE UA (BEAKER) (test yysp=430) Moderate Negative UROBILINOGEN UA (BEAKER) (test cbhd=225) 0.2 mg/dL 0.2-1.0 RBC UA (BEAKER) (test eqzf=052) 10 /HPF WBC UA (BEAKER) (test izqg=557) 29 /HPF MUCUS (BEAKER) (test brat=0888) Few SQUAMOUS EPITHELIAL (BEAKER) (test adqn=812) 1 /HPF HYALINE CASTS (BEAKER) (test ufwc=191) 2 /LPF SOURCE(BEAKER) (test ekgd=7508) POCT-GLUCOSE [id number] 12:49:00 Test Item Value Reference Range Comments POC-GLUCOSE METER (BEAKER) 79 mg/dL 70-110 TESTED AT [address] (test xrsa=4902) [place] [id number] CBC W/PLT COUNT & AUTO [id number] 09:59:00 Test Item Value Reference Range Comments WHITE BLOOD CELL COUNT (BEAKER) (test lcsu=961) 17.0 K/ L 4.0-10.0 RED BLOOD CELL COUNT (BEAKER) (test lkyb=516) 3.96 M/ L 4.00-5.00 HEMOGLOBIN (BEAKER) (test gels=937) 12.1 GM/DL 12.0-15.0 HEMATOCRIT (BEAKER) (test xumi=288) 39.2 % 36.0-45.0 MEAN CORPUSCULAR VOLUME (BEAKER) (test tbnv=902) 99.0 fL 82.0-99.0 MEAN CORPUSCULAR HEMOGLOBIN (BEAKER) (test 30.5 pg 27.0-33.0 wonx=949) MEAN CORPUSCULAR HEMOGLOBIN CONC (BEAKER) (test 30.8 GM/DL 32.0-36.0 hnzl=472) RED CELL DISTRIBUTION WIDTH (BEAKER) (test 15.5 % 10.3-14.2 qmhm=820) PLATELET COUNT (BEAKER) (test laik=788) 219 K/CU MM 150-430 MEAN PLATELET VOLUME (BEAKER) (test sucv=158) 7.3 fL 6.5-10.5 NUCLEATED RED BLOOD CELLS (BEAKER) (test 0 /100 WBC 0-0 bldl=445) NEUTROPHILS RELATIVE PERCENT (BEAKER) (test 80 % anbm=768) LYMPHOCYTES RELATIVE PERCENT (BEAKER) (test 14 % kvqb=509) MONOCYTES RELATIVE PERCENT (BEAKER) (test 6 % wyqw=161) EOSINOPHILS RELATIVE PERCENT (BEAKER) (test 1 % yjzp=496) BASOPHILS RELATIVE PERCENT (BEAKER) (test 0 % clkc=191) NEUTROPHILS ABSOLUTE COUNT (BEAKER) (test 13.60 K/ L 1.80-8.00 ytng=595) LYMPHOCYTES ABSOLUTE COUNT (BEAKER) (test 2.32 K/ L 1.48-4.50 koul=011) MONOCYTES ABSOLUTE COUNT (BEAKER) (test 0.97 K/ L 0.00-1.30 heij=463) EOSINOPHILS ABSOLUTE COUNT (BEAKER) (test 0.10 K/ L 0.00-0.50 ykbx=633) BASOPHILS ABSOLUTE COUNT (BEAKER) (test 0.01 K/ L 0.00-0.20 gnrt=950) 0.000.510.000.000.000.00(MANUAL DIFFERENTIAL)2017-01-01 09:59:00 Test Item Value Reference Range Comments TOTAL COUNTED (BEAKER) (test mriz=9538) WBC MORPHOLOGY (BEAKER) (test mbxy=676) Normal PLT MORPHOLOGY (BEAKER) (test camf=681) Normal RBC MORPHOLOGY (BEAKER) (test hauq=689) Normal POCT-GLUCOSE [id number] 06:20:00 Test Item Value Reference Range Comments POC-GLUCOSE METER (BEAKER) 140 mg/dL 70-[address] [facility] [address] [facility] (test mfof=1016) [facility] [address] [id number] 06:11:00 Test Item Value Reference Range Comments ALBUMIN (BEAKER) (test 3.2 g/dL 3.5-5.0 Specimen moderately hemolyzed rlqi=2462) BASIC METABOLIC [id number] 06:00:00 Test Item Value Reference Range Comments SODIUM (BEAKER) (test 143 meq/L 136-145 qlsv=954) POTASSIUM (BEAKER) (test 3.8 meq/L 3.5-5.1 nbub=490) CHLORIDE (BEAKER) (test 102 meq/L 98-107 zgco=585) CO2 (BEAKER) (test 31 meq/L 22-29 ycio=608) BLOOD UREA NITROGEN 33 mg/dL 7-21 (BEAKER) (test jtgt=774) CREATININE (BEAKER) (test 0.89 mg/dL 0.57-1.25 gtfd=472) GLUCOSE RANDOM (BEAKER) 145 mg/dL 70-105 (test uand=198) CALCIUM (BEAKER) (test 11.6 mg/dL 8.4-10.2 fruf=825) EGFR (BEAKER) (test 63 mL/min/1.73 sq m ESTIMATED GFR IS NOT vwbk=7127) ACCURATE CREATININE CLEARANCE IN PREDICTING GLOMERULAR FILTRATION RATE. ESTIMATED GFR IS NOT APPLICABLE FOR DIALYSIS PATIENTS. [id number] 05:59:00 Test Item Value Reference Range Comments PHOSPHORUS (BEAKER) (test xoxz=995) 3.1 mg/dL 2.3-4.7 [id number] 05:59:00 Test Item Value Reference Range Comments MAGNESIUM (BEAKER) (test dmwk=190) 2.0 mg/dL 1.6-2.6 POCT-GLUCOSE [id number] 23:38:00 Test Item Value Reference Range Comments POC-GLUCOSE METER (BEAKER) 156 mg/dL 70-110 TESTED AT [address] (test lxvp=1395) [facility] [address] POCT-GLUCOSE [id number] 18:18:00 Test Item Value Reference Range Comments POC-GLUCOSE METER (BEAKER) 110 mg/dL 70-110 TESTED AT [address] (test qysl=2582) [place] [id number] POCT-GLUCOSE [id number] 11:44:00 Test Item Value Reference Range Comments POC-GLUCOSE METER (BEAKER) 79 mg/dL 70-110 TESTED AT [address] (test azuj=8317) [place] [id number] CBC W/PLT COUNT & AUTO [id number] 11:03:00 Test Item Value Reference Range Comments WHITE BLOOD CELL COUNT (BEAKER) (test dotv=853) 13.9 K/ L 4.0-10.0 RED BLOOD CELL COUNT (BEAKER) (test whyo=250) 3.86 M/ L 4.00-5.00 HEMOGLOBIN (BEAKER) (test hait=634) 12.4 GM/DL 12.0-15.0 HEMATOCRIT (BEAKER) (test vgjt=934) 37.7 % 36.0-45.0 MEAN CORPUSCULAR VOLUME (BEAKER) (test jgmt=207) 97.5 fL 82.0-99.0 MEAN CORPUSCULAR HEMOGLOBIN (BEAKER) (test 32.2 pg 27.0-33.0 uoof=805) MEAN CORPUSCULAR HEMOGLOBIN CONC (BEAKER) (test 33.0 GM/DL 32.0-36.0 xwne=833) RED CELL DISTRIBUTION WIDTH (BEAKER) (test 16.4 % 10.3-14.2 exhz=143) PLATELET COUNT (BEAKER) (test gxlm=383) 248 K/CU MM 150-430 MEAN PLATELET VOLUME (BEAKER) (test zjsp=302) 7.1 fL 6.5-10.5 NUCLEATED RED BLOOD CELLS (BEAKER) (test 0 /100 WBC 0-0 txpg=641) NEUTROPHILS RELATIVE PERCENT (BEAKER) (test 81 % xqpz=625) LYMPHOCYTES RELATIVE PERCENT (BEAKER) (test 12 % goik=862) MONOCYTES RELATIVE PERCENT (BEAKER) (test 6 % twhz=598) EOSINOPHILS RELATIVE PERCENT (BEAKER) (test 1 % xndi=776) BASOPHILS RELATIVE PERCENT (BEAKER) (test 0 % tnrs=818) NEUTROPHILS ABSOLUTE COUNT (BEAKER) (test 11.30 K/ L 1.80-8.00 llwq=341) LYMPHOCYTES ABSOLUTE COUNT (BEAKER) (test 1.62 K/ L 1.48-4.50 rwje=708) MONOCYTES ABSOLUTE COUNT (BEAKER) (test 0.84 K/ L 0.00-1.30 jlcp=478) EOSINOPHILS ABSOLUTE COUNT (BEAKER) (test 0.15 K/ L 0.00-0.50 qggc=139) BASOPHILS ABSOLUTE COUNT (BEAKER) (test 0.03 K/ L 0.00-0.20 fmix=938) 0.000.520.000.000.000.000.000.000.00(MANUAL DIFFERENTIAL)2016-12-31 11:03:00 Test Item Value Reference Range Comments TOTAL COUNTED (BEAKER) (test dtug=8783) WBC MORPHOLOGY (BEAKER) (test zoba=880) Normal PLT MORPHOLOGY (BEAKER) (test xmvp=798) Normal RBC MORPHOLOGY (BEAKER) (test yofa=497) Normal POCT-GLUCOSE [id number] 06:21:00 Test Item Value Reference Range Comments POC-GLUCOSE METER (BEAKER) 152 mg/dL 70-[address] [facility] [address] [place] [address] (test jpol=5019) [facility] [address] BASIC METABOLIC [id number] 06:04:00 Test Item Value Reference Range Comments SODIUM (BEAKER) (test 142 meq/L 136-145 ernm=047) POTASSIUM (BEAKER) (test 3.8 meq/L 3.5-5.1 zhab=222) CHLORIDE (BEAKER) (test 102 meq/L 98-107 hrdw=685) CO2 (BEAKER) (test 29 meq/L 22-29 umfe=316) BLOOD UREA NITROGEN 34 mg/dL 7-21 (BEAKER) (test htgn=371) CREATININE (BEAKER) (test 0.85 mg/dL 0.57-1.25 nfbf=095) GLUCOSE RANDOM (BEAKER) 151 mg/dL 70-105 (test qdgk=348) CALCIUM (BEAKER) (test 11.7 mg/dL 8.4-10.2 zfne=170) EGFR (BEAKER) (test 66 mL/min/1.73 sq m ESTIMATED GFR IS NOT wrlk=6257) ACCURATE CREATININE CLEARANCE IN PREDICTING GLOMERULAR FILTRATION RATE. ESTIMATED GFR IS NOT APPLICABLE FOR DIALYSIS PATIENTS. [id number] 05:56:00 Test Item Value Reference Range Comments PHOSPHORUS (BEAKER) (test jucs=141) 3.5 mg/dL 2.3-4.7 [id number] 05:56:00 Test Item Value Reference Range Comments MAGNESIUM (BEAKER) (test ffwb=630) 1.9 mg/dL 1.6-2.6 POCT-GLUCOSE [id number] 23:51:00 Test Item Value Reference Range Comments POC-GLUCOSE METER (BEAKER) 168 mg/dL 70-110 TESTED AT [address] (test cdxb=3094) [facility] [address] POCT-GLUCOSE [id number] 18:34:00 Test Item Value Reference Range Comments POC-GLUCOSE METER (BEAKER) 80 mg/dL 70-110 TESTED AT [address] (test wfnv=1256) [facility] [address] POCT-GLUCOSE [id number] 16:09:00 Test Item Value Reference Range Comments POC-GLUCOSE METER (BEAKER) 83 mg/dL 70-110 TESTED AT [address] (test gxrd=5636) [facility] [address] POCT-GLUCOSE [id number] 16:09:00 Test Item Value Reference Range Comments POC-GLUCOSE METER (BEAKER) 41 mg/dL 70-110 TESTED AT [address] (test egdt=8616) [facility] [address] POCT-GLUCOSE [id number] 15:20:00 Test Item Value Reference Range Comments POC-GLUCOSE METER (BEAKER) 44 mg/dL 70-110 TESTED AT [address] (test lorj=5670) [facility] [address] POCT-GLUCOSE [id number] 08:27:00 Test Item Value Reference Range Comments POC-GLUCOSE METER (BEAKER) 114 mg/dL 70-110 TESTED AT [address] (test ultx=5225) [facility] [address] POCT-GLUCOSE [id number] 08:27:00 Test Item Value Reference Range Comments POC-GLUCOSE METER (BEAKER) 35 mg/dL 70-[address] [facility] [address] (test wwhh=7904) [place] [address] CBC W/PLT COUNT & AUTO [id number] 07:04:00 Test Item Value Reference Range Comments WHITE BLOOD CELL COUNT (BEAKER) (test siag=796) 8.2 K/ L 4.0-10.0 RED BLOOD CELL COUNT (BEAKER) (test jicl=028) 4.05 M/ L 4.00-5.00 HEMOGLOBIN (BEAKER) (test rwop=094) 12.8 GM/DL 12.0-15.0 HEMATOCRIT (BEAKER) (test jlsx=395) 39.2 % 36.0-45.0 MEAN CORPUSCULAR VOLUME (BEAKER) (test menx=388) 97.0 fL 82.0-99.0 MEAN CORPUSCULAR HEMOGLOBIN (BEAKER) (test 31.7 pg 27.0-33.0 nmdd=112) MEAN CORPUSCULAR HEMOGLOBIN CONC (BEAKER) (test 32.7 GM/DL 32.0-36.0 vfug=778) RED CELL DISTRIBUTION WIDTH (BEAKER) (test 15.6 % 10.3-14.2 iiwb=871) PLATELET COUNT (BEAKER) (test pvzt=526) 275 K/CU MM 150-430 MEAN PLATELET VOLUME (BEAKER) (test cxvt=077) 6.9 fL 6.5-10.5 NUCLEATED RED BLOOD CELLS (BEAKER) (test 0 /100 WBC 0-0 zwpo=523) NEUTROPHILS RELATIVE PERCENT (BEAKER) (test 63 % rkzi=810) LYMPHOCYTES RELATIVE PERCENT (BEAKER) (test 27 % lqrd=843) MONOCYTES RELATIVE PERCENT (BEAKER) (test 7 % uail=348) EOSINOPHILS RELATIVE PERCENT (BEAKER) (test 2 % yxet=875) BASOPHILS RELATIVE PERCENT (BEAKER) (test 1 % gnga=150) NEUTROPHILS ABSOLUTE COUNT (BEAKER) (test 5.13 K/ L 1.80-8.00 jezt=776) LYMPHOCYTES ABSOLUTE COUNT (BEAKER) (test 2.21 K/ L 1.48-4.50 sdaw=742) MONOCYTES ABSOLUTE COUNT (BEAKER) (test 0.59 K/ L 0.00-1.30 ntij=179) EOSINOPHILS ABSOLUTE COUNT (BEAKER) (test 0.18 K/ L 0.00-0.50 lywi=201) BASOPHILS ABSOLUTE COUNT (BEAKER) (test 0.10 K/ L 0.00-0.20 nwfm=086) 0.00POCT-GLUCOSE [id number] 06:20:00 Test Item Value Reference Range Comments POC-GLUCOSE METER (BEAKER) 62 mg/dL 70-110 Notified CICI COTO/TESTED AT [facility] (test fahy=3623) [address] [place] [address] BASIC METABOLIC [id number] 06:13:00 Test Item Value Reference Range Comments SODIUM (BEAKER) (test 141 meq/L 136-145 mmvv=019) POTASSIUM (BEAKER) (test 4.3 meq/L 3.5-5.1 djoy=238) CHLORIDE (BEAKER) (test 99 meq/L 98-107 figl=239) CO2 (BEAKER) (test 33 meq/L 22-29 rxgz=648) BLOOD UREA NITROGEN 36 mg/dL 7-21 (BEAKER) (test mszc=261) CREATININE (BEAKER) (test 0.93 mg/dL 0.57-1.25 ytjt=149) GLUCOSE RANDOM (BEAKER) 107 mg/dL 70-105 (test kwyv=714) CALCIUM (BEAKER) (test 11.9 mg/dL 8.4-10.2 anpa=676) EGFR (BEAKER) (test 59 mL/min/1.73 sq m ESTIMATED GFR IS NOT btsw=5822) ACCURATE CREATININE CLEARANCE IN PREDICTING GLOMERULAR FILTRATION RATE. ESTIMATED GFR IS NOT APPLICABLE FOR DIALYSIS PATIENTS. [id number] 06:10:00 Test Item Value Reference Range Comments PHOSPHORUS (BEAKER) (test hvyl=113) 3.5 mg/dL 2.3-4.7 [id number] 06:10:00 Test Item Value Reference Range Comments MAGNESIUM (BEAKER) (test kcdq=479) 2.2 mg/dL 1.6-2.6 PROTHROMBIN [id number] 06:05:00 Test Item Value Reference Range Comments PROTIME (BEAKER) (test ukgc=788) 15.5 seconds 11.7-14.7 INR (BEAKER) (test dwve=596) 1.2 <=5.9 RECOMMENDED COUMADIN/WARFARIN INR THERAPY RANGESSTANDARD DOSE: 2.0 - 3.0 Includes: PROPHYLAXIS forvenous thrombosis, systemic embolization; TREATMENT for venous thrombosis and/or pulmonary embolus.HIGH RISK: Target INR is 2.5-3.5 for patients with mechanical heart valves.POCT-GLUCOSE [id number] 23:58:00 Test Item Value Reference Range Comments POC-GLUCOSE METER (BEAKER) 108 mg/dL 70-110 TESTED AT [address] (test dvue=3599) [place] [id number] POCT-GLUCOSE [id number] 18:02:00 Test Item Value Reference Range Comments POC-GLUCOSE METER (BEAKER) 126 mg/dL 70-110 TESTED AT [address] (test dwyt=1236) [place] [id number] PTH, [id number] 14:50:00 Test Item Value Reference Range Comments PARATHYROID HORMONE INTACT (BEAKER) (test 274.9 pg/mL 8.5-72.5 fuqo=818) Effective 08/19/2014: Reference Range ChangeNew: 8.5-72.5 Previous: 15.0- 90.0POCT-GLUCOSE [id number] 13:33:00 Test Item Value Reference Range Comments POC-GLUCOSE METER (BEAKER) 145 mg/dL 70-110 TESTED AT [address] (test ybms=8133) [place] [id number] CBC W/PLT COUNT & AUTO [id number] 08:35:00 Test Item Value Reference Range Comments WHITE BLOOD CELL COUNT (BEAKER) (test whdh=808) 10.2 K/ L 4.0-10.0 RED BLOOD CELL COUNT (BEAKER) (test jamx=876) 3.96 M/ L 4.00-5.00 HEMOGLOBIN (BEAKER) (test udyh=364) 12.8 GM/DL 12.0-15.0 HEMATOCRIT (BEAKER) (test kthd=570) 38.7 % 36.0-45.0 MEAN CORPUSCULAR VOLUME (BEAKER) (test xrza=096) 97.7 fL 82.0-99.0 MEAN CORPUSCULAR HEMOGLOBIN (BEAKER) (test 32.2 pg 27.0-33.0 qwhv=639) MEAN CORPUSCULAR HEMOGLOBIN CONC (BEAKER) (test 33.0 GM/DL 32.0-36.0 bwjq=404) RED CELL DISTRIBUTION WIDTH (BEAKER) (test 16.7 % 10.3-14.2 ahto=804) PLATELET COUNT (BEAKER) (test obgl=410) 279 K/CU MM 150-430 MEAN PLATELET VOLUME (BEAKER) (test inzo=359) 6.7 fL 6.5-10.5 NUCLEATED RED BLOOD CELLS (BEAKER) (test 0 /100 WBC 0-0 shdt=480) NEUTROPHILS RELATIVE PERCENT (BEAKER) (test 70 % xpmv=960) LYMPHOCYTES RELATIVE PERCENT (BEAKER) (test 22 % jbww=498) MONOCYTES RELATIVE PERCENT (BEAKER) (test 7 % anlz=591) EOSINOPHILS RELATIVE PERCENT (BEAKER) (test 2 % rbik=350) BASOPHILS RELATIVE PERCENT (BEAKER) (test 0 % zmgw=204) NEUTROPHILS ABSOLUTE COUNT (BEAKER) (test 7.11 K/ L 1.80-8.00 egog=339) LYMPHOCYTES ABSOLUTE COUNT (BEAKER) (test 2.19 K/ L 1.48-4.50 ylqt=414) MONOCYTES ABSOLUTE COUNT (BEAKER) (test 0.70 K/ L 0.00-1.30 kqmw=421) EOSINOPHILS ABSOLUTE COUNT (BEAKER) (test 0.18 K/ L 0.00-0.50 ydsm=563) BASOPHILS ABSOLUTE COUNT (BEAKER) (test 0.02 K/ L 0.00-0.20 hynu=221) 0.000.500.000.000.[id number](MANUAL DIFFERENTIAL)2016-12-29 08:35:00 Test Item Value Reference Range Comments TOTAL COUNTED (BEAKER) (test mjhc=7867) BASIC METABOLIC [id number] 06:00:00 Test Item Value Reference Range Comments SODIUM (BEAKER) (test 141 meq/L 136-145 hwng=587) POTASSIUM (BEAKER) (test 4.3 meq/L 3.5-5.1 Specimen slightly lvke=720) hemolyzed CHLORIDE (BEAKER) (test 100 meq/L 98-107 eiev=759) CO2 (BEAKER) (test 29 meq/L 22-29 pygj=721) BLOOD UREA NITROGEN 34 mg/dL 7-21 (BEAKER) (test yiul=662) CREATININE (BEAKER) (test 0.91 mg/dL 0.57-1.25 Specimen slightly nlzp=820) hemolyzed GLUCOSE RANDOM (BEAKER) 110 mg/dL 70-105 (test ddlt=826) CALCIUM (BEAKER) (test 12.0 mg/dL 8.4-10.2 exkt=329) EGFR (BEAKER) (test 61 mL/min/1.73 sq m ESTIMATED GFR IS NOT zxir=8715) ACCURATE CREATININE CLEARANCE IN PREDICTING GLOMERULAR FILTRATION RATE. ESTIMATED GFR IS NOT APPLICABLE FOR DIALYSIS PATIENTS. [id number] 05:59:00 Test Item Value Reference Range Comments MAGNESIUM (BEAKER) (test 2.4 mg/dL 1.6-2.6 Specimen slightly hemolyzed wbft=622) [id number] 05:59:00 Test Item Value Reference Range Comments PHOSPHORUS (BEAKER) (test 3.1 mg/dL 2.3-4.7 Specimen slightly hemolyzed iggx=979) POCT-GLUCOSE [id number] 05:32:00 Test Item Value Reference Range Comments POC-GLUCOSE METER (BEAKER) 114 mg/dL 70-110 TESTED AT [address] (test zvkr=3907) [place] [id number] POCT-GLUCOSE [id number] 00:02:00 Test Item Value Reference Range Comments POC-GLUCOSE METER (BEAKER) 106 mg/dL 70-110 TESTED AT [address] (test wqgt=7737) [place] [id number] POCT-GLUCOSE [id number] 18:28:00 Test Item Value Reference Range Comments POC-GLUCOSE METER (BEAKER) 150 mg/dL 70-110 TESTED AT [address] (test uwln=1450) [place] [id number] POCT-GLUCOSE [id number] 12:31:00 Test Item Value Reference Range Comments POC-GLUCOSE METER (BEAKER) 152 mg/dL 70-110 TESTED AT [address] (test kszf=6686) [place] [id number] POCT-GLUCOSE [id number] 05:41:00 Test Item Value Reference Range Comments POC-GLUCOSE METER (BEAKER) 120 mg/dL 70-110 TESTED AT [address] (test anal=3802) [place] [id number] CBC W/PLT COUNT & AUTO [id number] 05:00:00 Test Item Value Reference Range Comments WHITE BLOOD CELL COUNT (BEAKER) (test bjgi=567) 8.8 K/ L 4.0-10.0 RED BLOOD CELL COUNT (BEAKER) (test vwwj=297) 3.76 M/ L 4.00-5.00 HEMOGLOBIN (BEAKER) (test teng=274) 11.3 GM/DL 12.0-15.0 HEMATOCRIT (BEAKER) (test jpzl=245) 35.7 % 36.0-45.0 MEAN CORPUSCULAR VOLUME (BEAKER) (test srpd=496) 95.1 fL 82.0-99.0 MEAN CORPUSCULAR HEMOGLOBIN (BEAKER) (test 30.2 pg 27.0-33.0 untn=316) MEAN CORPUSCULAR HEMOGLOBIN CONC (BEAKER) (test 31.7 GM/DL 32.0-36.0 dnbs=639) RED CELL DISTRIBUTION WIDTH (BEAKER) (test 15.5 % 10.3-14.2 euib=300) PLATELET COUNT (BEAKER) (test vrhk=785) 259 K/CU MM 150-430 MEAN PLATELET VOLUME (BEAKER) (test sqrb=921) 6.3 fL 6.5-10.5 NUCLEATED RED BLOOD CELLS (BEAKER) (test 0 /100 WBC 0-0 jaxi=439) NEUTROPHILS RELATIVE PERCENT (BEAKER) (test 72 % xeev=243) LYMPHOCYTES RELATIVE PERCENT (BEAKER) (test 20 % vnwl=061) MONOCYTES RELATIVE PERCENT (BEAKER) (test 6 % pwwi=459) EOSINOPHILS RELATIVE PERCENT (BEAKER) (test 1 % zjsn=371) BASOPHILS RELATIVE PERCENT (BEAKER) (test 0 % ewky=527) NEUTROPHILS ABSOLUTE COUNT (BEAKER) (test 6.39 K/ L 1.80-8.00 btxn=515) LYMPHOCYTES ABSOLUTE COUNT (BEAKER) (test 1.75 K/ L 1.48-4.50 cohj=024) MONOCYTES ABSOLUTE COUNT (BEAKER) (test 0.57 K/ L 0.00-1.30 uedh=821) EOSINOPHILS ABSOLUTE COUNT (BEAKER) (test 0.11 K/ L 0.00-0.50 wkwp=126) BASOPHILS ABSOLUTE COUNT (BEAKER) (test 0.02 K/ L 0.00-0.20 ejig=512) 0.00BASIC METABOLIC [id number] 04:58:00 Test Item Value Reference Range Comments SODIUM (BEAKER) (test 142 meq/L 136-145 iein=259) POTASSIUM (BEAKER) (test 3.6 meq/L 3.5-5.1 Specimen slightly bqrj=640) hemolyzed CHLORIDE (BEAKER) (test 98 meq/L 98-107 hdem=969) CO2 (BEAKER) (test 32 meq/L 22-29 jjsu=539) BLOOD UREA NITROGEN 32 mg/dL 7-21 (BEAKER) (test tcij=056) CREATININE (BEAKER) (test 0.92 mg/dL 0.57-1.25 Specimen slightly nlzg=254) hemolyzed GLUCOSE RANDOM (BEAKER) 134 mg/dL 70-105 (test ndvk=890) CALCIUM (BEAKER) (test 11.5 mg/dL 8.4-10.2 isae=944) EGFR (BEAKER) (test 60 mL/min/1.73 sq m ESTIMATED GFR IS NOT ibua=7780) ACCURATE CREATININE CLEARANCE IN PREDICTING GLOMERULAR FILTRATION RATE. ESTIMATED GFR IS NOT APPLICABLE FOR DIALYSIS PATIENTS. [id number] 04:57:00 Test Item Value Reference Range Comments MAGNESIUM (BEAKER) (test 2.5 mg/dL 1.6-2.6 Specimen slightly hemolyzed lnup=483) [id number] 04:57:00 Test Item Value Reference Range Comments PHOSPHORUS (BEAKER) (test 3.3 mg/dL 2.3-4.7 Specimen slightly hemolyzed mhar=776) POCT-GLUCOSE [id number] 00:44:00 Test Item Value Reference Range Comments POC-GLUCOSE METER (BEAKER) 142 mg/dL 70-110 TESTED AT [address] (test fwwp=9688) [facility] [address] POCT-GLUCOSE [id number] 18:34:00 Test Item Value Reference Range Comments POC-GLUCOSE METER (BEAKER) 115 mg/dL 70-110 TESTED AT [address] (test ziye=5842) [facility] [address] POCT-GLUCOSE [id number] 12:21:00 Test Item Value Reference Range Comments POC-GLUCOSE METER (BEAKER) 123 mg/dL 70-110 TESTED AT [address] (test bely=2347) [place] [address] URINE [id number] 10:42:00 Test Item Value Reference Range Comments CULTURE (BEAKER) (test oacn=0449) No growth [id number] 06:53:00 Test Item Value Reference Range Comments POTASSIUM (BEAKER) (test iovl=252) 3.6 meq/L 3.5-5.1 Check Serum Potassium level 2 hours after oral potassium replacement completed or 30 min after intravenous potassium replacement.[id number] 06:53:00 Test Item Value Reference Range Comments MAGNESIUM (BEAKER) (test bvgq=082) 2.7 mg/dL 1.6-2.6 Check Serum Potassium level 2 hours after oral potassium replacement completed or 30 min after intravenous potassium replacement.POCT-GLUCOSE [id number] 06:27:00 Test Item Value Reference Range Comments POC-GLUCOSE METER (BEAKER) 113 mg/dL 70-110 TESTED AT [address] (test ypyo=4656) [place] [address] BASIC METABOLIC [id number] 02:30:00 Test Item Value Reference Range Comments SODIUM (BEAKER) (test 139 meq/L 136-145 qovz=125) POTASSIUM (BEAKER) (test 3.8 meq/L 3.5-5.1 oamr=367) CHLORIDE (BEAKER) (test 95 meq/L 98-107 deqy=130) CO2 (BEAKER) (test 30 meq/L 22-29 afzv=293) BLOOD UREA NITROGEN 24 mg/dL 7-21 (BEAKER) (test qmlx=594) CREATININE (BEAKER) (test 0.96 mg/dL 0.57-1.25 jupw=559) GLUCOSE RANDOM (BEAKER) 122 mg/dL 70-105 (test yqkb=796) CALCIUM (BEAKER) (test 11.6 mg/dL 8.4-10.2 nbop=950) EGFR (BEAKER) (test 57 mL/min/1.73 sq m ESTIMATED GFR IS NOT frsp=4619) ACCURATE CREATININE CLEARANCE IN PREDICTING GLOMERULAR FILTRATION RATE. ESTIMATED GFR IS NOT APPLICABLE FOR DIALYSIS PATIENTS. [id number] 02:29:00 Test Item Value Reference Range Comments PHOSPHORUS (BEAKER) (test dcse=906) 3.5 mg/dL 2.3-4.7 [id number] 02:29:00 Test Item Value Reference Range Comments MAGNESIUM (BEAKER) (test iqlz=331) 2.2 mg/dL 1.6-2.6 [id number] 02:29:00 Test Item Value Reference Range Comments SODIUM (BEAKER) (test etdn=055) 139 meq/L 136-145 CBC W/PLT COUNT & AUTO [id number] 02:21:00 Test Item Value Reference Range Comments WHITE BLOOD CELL COUNT (BEAKER) (test pvpc=196) 6.2 K/ L 4.0-10.0 RED BLOOD CELL COUNT (BEAKER) (test gpcc=926) 3.77 M/ L 4.00-5.00 HEMOGLOBIN (BEAKER) (test mdgd=723) 11.8 GM/DL 12.0-15.0 HEMATOCRIT (BEAKER) (test hswq=466) 36.1 % 36.0-45.0 MEAN CORPUSCULAR VOLUME (BEAKER) (test jmfr=797) 95.9 fL 82.0-99.0 MEAN CORPUSCULAR HEMOGLOBIN (BEAKER) (test 31.3 pg 27.0-33.0 nlxb=591) MEAN CORPUSCULAR HEMOGLOBIN CONC (BEAKER) (test 32.6 GM/DL 32.0-36.0 srfp=356) RED CELL DISTRIBUTION WIDTH (BEAKER) (test 16.7 % 10.3-14.2 cnnm=457) PLATELET COUNT (BEAKER) (test xqof=773) 247 K/CU MM 150-430 MEAN PLATELET VOLUME (BEAKER) (test jxpg=406) 6.3 fL 6.5-10.5 NUCLEATED RED BLOOD CELLS (BEAKER) (test 0 /100 WBC 0-0 nosx=471) NEUTROPHILS RELATIVE PERCENT (BEAKER) (test 73 % puxh=769) LYMPHOCYTES RELATIVE PERCENT (BEAKER) (test 19 % tzga=435) MONOCYTES RELATIVE PERCENT (BEAKER) (test 8 % flit=266) EOSINOPHILS RELATIVE PERCENT (BEAKER) (test 0 % ugxf=196) BASOPHILS RELATIVE PERCENT (BEAKER) (test 0 % qyzx=634) NEUTROPHILS ABSOLUTE COUNT (BEAKER) (test 4.53 K/ L 1.80-8.00 dqgy=712) LYMPHOCYTES ABSOLUTE COUNT (BEAKER) (test 1.16 K/ L 1.48-4.50 feph=611) MONOCYTES ABSOLUTE COUNT (BEAKER) (test 0.47 K/ L 0.00-1.30 gnez=392) EOSINOPHILS ABSOLUTE COUNT (BEAKER) (test 0.02 K/ L 0.00-0.50 qcdq=781) BASOPHILS ABSOLUTE COUNT (BEAKER) (test 0.00 K/ L 0.00-0.20 yyik=777) 0.00POCT-GLUCOSE [id number] 00:44:00 Test Item Value Reference Range Comments POC-GLUCOSE METER (BEAKER) 121 mg/dL 70-110 TESTED AT [address] (test cwfy=0560) [facility] [address] [id number] 20:34:00 Test Item Value Reference Range Comments SODIUM (BEAKER) (test dnfy=816) 138 meq/L 136-145 HEPATIC FUNCTION [id number] 20:34:00 Test Item Value Reference Range Comments TOTAL PROTEIN (BEAKER) (test zuwp=897) 6.7 gm/dL 6.0-8.3 ALBUMIN (BEAKER) (test glvb=4409) 3.6 g/dL 3.5-5.0 BILIRUBIN TOTAL (BEAKER) (test imby=801) 0.3 mg/dL 0.2-1.2 BILIRUBIN DIRECT (BEAKER) (test tvjj=456) 0.2 mg/dL 0.1-0.5 ALKALINE PHOSPHATASE (BEAKER) (test kcxo=267) 148 U/L 40-150 AST (SGOT) (BEAKER) (test uutf=789) 15 U/L 5-34 ALT (SGPT) (BEAKER) (test nkfa=441) 15 U/L 6-55 [id number] 20:25:00 Test Item Value Reference Range Comments AMMONIA (BEAKER) (test bqvi=139) 30 mol/L 18-72 POCT-GLUCOSE [id number] 19:58:00 Test Item Value Reference Range Comments POC-GLUCOSE METER (BEAKER) 125 mg/dL 70-110 TESTED AT [address] (test bnxb=9847) [facility] [address] [id number] 14:30:00 Test Item Value Reference Range Comments RPR SCREEN (BEAKER) (test hvnx=102) Nonreactive Nonreactive [id number] 13:35:00 Test Item Value Reference Range Comments SODIUM (BEAKER) (test iuuq=183) 136 meq/L 136-145 [id number] 13:23:00 Test Item Value Reference Range Comments CORTISOL, TOTAL (BEAKER) (test zhtd=0009) 11.7 ug/dL 3.7-19.4 POCT-GLUCOSE [id number] 13:22:00 Test Item Value Reference Range Comments POC-GLUCOSE METER (BEAKER) 117 mg/dL 70-[address] [facility] [address] (test rpim=8828) [facility] [address] B-TYPE NATRIURETIC FACTOR (BNP)2016-12-26 11:55:00 Test Item Value Reference Range Comments B-TYPE NATRIURETIC PEPTIDE (BEAKER) (test 115 pg/mL 0-100 yegi=734) [id number] 11:43:00 Test Item Value Reference Range Comments MAGNESIUM (BEAKER) (test 2.5 mg/dL 1.6-2.6 Specimen slightly hemolyzed jdcc=353) OSMOLALITY, [id number] 04:32:00 Test Item Value Reference Range Comments OSMOLALITY, SERUM (BEAKER) (test kdgv=438) 303 mOsm/kg 275-295 LIPID [id number] 04:04:00 Test Item Value Reference Range Comments TRIGLYCERIDES (BEAKER) (test uhsz=156) 94 mg/dL CHOLESTEROL (BEAKER) (test dcwu=257) 197 mg/dL HDL CHOLESTEROL (BEAKER) (test deew=825) 54 mg/dL LDL CHOLESTEROL CALCULATED (BEAKER) (test 124 mg/dL xinx=642) Triglyceride Reference Range: Low Risk <150 Borderline 150- 199 High Risk 200-499 Very High Risk >=500Cholesterol Reference Range: Low Risk <200 Borderline 200-239 High Risk > 240HDL Cholesterol Reference Range: Low Risk >=60 High Risk <40LDL Cholesterol Reference Range: Optimal <100 Near Optimal 100-129 Borderline 130-159 High 160-189 Very High >=190 [id number] 04:03:00 Test Item Value Reference Range Comments PHOSPHORUS (BEAKER) (test uwif=724) 3.2 mg/dL 2.3-4.7 BASIC METABOLIC [id number] 04:03:00 Test Item Value Reference Range Comments SODIUM (BEAKER) (test 130 meq/L 136-145 htpi=633) POTASSIUM (BEAKER) (test 4.0 meq/L 3.5-5.1 jlxz=565) CHLORIDE (BEAKER) (test 89 meq/L 98-107 qrhi=984) CO2 (BEAKER) (test 30 meq/L 22-29 zjrh=279) BLOOD UREA NITROGEN 24 mg/dL 7-21 (BEAKER) (test ippt=899) CREATININE (BEAKER) (test 0.96 mg/dL 0.57-1.25 dhoa=911) GLUCOSE RANDOM (BEAKER) 111 mg/dL 70-105 (test cnzi=105) CALCIUM (BEAKER) (test 11.1 mg/dL 8.4-10.2 qedh=555) EGFR (BEAKER) (test 57 mL/min/1.73 sq m ESTIMATED GFR IS NOT stbu=5983) ACCURATE CREATININE CLEARANCE IN PREDICTING GLOMERULAR FILTRATION RATE. ESTIMATED GFR IS NOT APPLICABLE FOR DIALYSIS PATIENTS. CBC W/PLT COUNT & AUTO [id number] 03:43:00 Test Item Value Reference Range Comments WHITE BLOOD CELL COUNT (BEAKER) (test rdrm=218) 6.9 K/ L 4.0-10.0 RED BLOOD CELL COUNT (BEAKER) (test ykjf=202) 3.81 M/ L 4.00-5.00 HEMOGLOBIN (BEAKER) (test twjd=084) 12.0 GM/DL 12.0-15.0 HEMATOCRIT (BEAKER) (test lokx=888) 35.6 % 36.0-45.0 MEAN CORPUSCULAR VOLUME (BEAKER) (test qjnj=509) 93.4 fL 82.0-99.0 MEAN CORPUSCULAR HEMOGLOBIN (BEAKER) (test 31.4 pg 27.0-33.0 cvdq=795) MEAN CORPUSCULAR HEMOGLOBIN CONC (BEAKER) (test 33.6 GM/DL 32.0-36.0 jbcf=827) RED CELL DISTRIBUTION WIDTH (BEAKER) (test 15.4 % 10.3-14.2 ehod=592) PLATELET COUNT (BEAKER) (test cijh=136) 250 K/CU MM 150-430 MEAN PLATELET VOLUME (BEAKER) (test fkjn=741) 6.0 fL 6.5-10.5 NUCLEATED RED BLOOD CELLS (BEAKER) (test 0 /100 WBC 0-0 ekxn=501) NEUTROPHILS RELATIVE PERCENT (BEAKER) (test 67 % wdwh=486) LYMPHOCYTES RELATIVE PERCENT (BEAKER) (test 20 % djwn=004) MONOCYTES RELATIVE PERCENT (BEAKER) (test 12 % gvph=745) EOSINOPHILS RELATIVE PERCENT (BEAKER) (test 1 % prer=506) BASOPHILS RELATIVE PERCENT (BEAKER) (test 0 % zugw=964) NEUTROPHILS ABSOLUTE COUNT (BEAKER) (test 4.64 K/ L 1.80-8.00 aojj=437) LYMPHOCYTES ABSOLUTE COUNT (BEAKER) (test 1.38 K/ L 1.48-4.50 qfui=880) MONOCYTES ABSOLUTE COUNT (BEAKER) (test 0.81 K/ L 0.00-1.30 irbn=350) EOSINOPHILS ABSOLUTE COUNT (BEAKER) (test 0.05 K/ L 0.00-0.50 lrki=739) BASOPHILS ABSOLUTE COUNT (BEAKER) (test 0.03 K/ L 0.00-0.20 rgyn=806) [id number] 01:55:00 Test Item Value Reference Range Comments POTASSIUM (BEAKER) (test mlvv=595) 3.2 meq/L 3.5-5.1 [id number] 01:55:00 Test Item Value Reference Range Comments MAGNESIUM (BEAKER) (test jgkq=494) 1.7 mg/dL 1.6-2.6 TROPONIN [id number] 01:21:00 Test Item Value Reference Range Comments TROPONIN I (BEAKER) (test vxvf=080) 0.01 ng/mL 0.00-0.03 Effective 08/19/2014: Reference Range [...] acidosis, acute neurological disease, and persistent tachyarrhythmia.POCT-GLUCOSE [id number] 01:03:00 Test Item Value Reference Range Comments POC-GLUCOSE METER (BEAKER) 161 mg/dL 70-[address] [facility] [address] (test uscz=6193) [facility] [address] POCT-GLUCOSE [id number] 00:22:00 Test Item Value Reference Range Comments POC-GLUCOSE METER (BEAKER) 62 mg/dL 70-110 Notified CICI COTO/TESTED AT [facility] (test eazo=5589) [address] [facility] [address] HEMOGLOBIN [id number] 22:44:00 Test Item Value Reference Range Comments HEMOGLOBIN A1C (BEAKER) (test vwrq=431) 5.0 % 4.3-6.1 TSH/FREE T4 IF [id number] 21:14:00 Test Item Value Reference Range Comments THYROID STIMULATING HORMONE (BEAKER) (test 2.66 uIU/mL 0.35-4.94 nwjb=486) VITAMIN B12 AND [id number] 21:14:00 Test Item Value Reference Range Comments VITAMIN B12 (BEAKER) (test jhzs=714) 325 pg/mL 213-816 FOLATE (BEAKER) (test xmcu=544) 11.9 ng/mL >=7.0 Effective 08/19/2014: Folate Reference Range ChangeNew: >=7.0 Previous: & gt;=5.4CBC W/PLT COUNT & AUTO [id number] 19:39:00 Test Item Value Reference Range Comments WHITE BLOOD CELL COUNT (BEAKER) (test xwoe=208) 5.3 K/ L 4.0-10.0 RED BLOOD CELL COUNT (BEAKER) (test vsbi=216) 3.72 M/ L 4.00-5.00 HEMOGLOBIN (BEAKER) (test ymdn=009) 11.6 GM/DL 12.0-15.0 HEMATOCRIT (BEAKER) (test pizz=790) 35.0 % 36.0-45.0 MEAN CORPUSCULAR VOLUME (BEAKER) (test hxew=631) 94.2 fL 82.0-99.0 MEAN CORPUSCULAR HEMOGLOBIN (BEAKER) (test 31.3 pg 27.0-33.0 eyhg=585) MEAN CORPUSCULAR HEMOGLOBIN CONC (BEAKER) (test 33.2 GM/DL 32.0-36.0 wzro=451) RED CELL DISTRIBUTION WIDTH (BEAKER) (test 16.5 % 10.3-14.2 vtel=490) PLATELET COUNT (BEAKER) (test tbsc=020) 220 K/CU MM 150-430 MEAN PLATELET VOLUME (BEAKER) (test unbt=997) 6.2 fL 6.5-10.5 NUCLEATED RED BLOOD CELLS (BEAKER) (test 0 /100 WBC 0-0 xvsx=941) NEUTROPHILS RELATIVE PERCENT (BEAKER) (test 73 % onwf=665) LYMPHOCYTES RELATIVE PERCENT (BEAKER) (test 17 % lelj=373) MONOCYTES RELATIVE PERCENT (BEAKER) (test 9 % dlbl=362) EOSINOPHILS RELATIVE PERCENT (BEAKER) (test 0 % rkua=467) BASOPHILS RELATIVE PERCENT (BEAKER) (test 0 % gcgz=239) NEUTROPHILS ABSOLUTE COUNT (BEAKER) (test 3.85 K/ L 1.80-8.00 lzld=861) LYMPHOCYTES ABSOLUTE COUNT (BEAKER) (test 0.91 K/ L 1.48-4.50 lvwa=507) MONOCYTES ABSOLUTE COUNT (BEAKER) (test 0.49 K/ L 0.00-1.30 rkut=161) EOSINOPHILS ABSOLUTE COUNT (BEAKER) (test 0.02 K/ L 0.00-0.50 hpgu=842) BASOPHILS ABSOLUTE COUNT (BEAKER) (test 0.01 K/ L 0.00-0.20 rbgq=556) 0.00TROPONIN [id number] 19:31:00 Test Item Value Reference Range Comments TROPONIN I (BEAKER) (test qpxo=227) < ng/mL 0.00-0.03 Effective 08/19/2014: Reference Range [...] Range Comments B-TYPE NATRIURETIC PEPTIDE (BEAKER) (test wrkl=691) 90 pg/mL 0-100 LIPID [id number] 19:24:00 Test Item Value Reference Range Comments TRIGLYCERIDES (BEAKER) (test fque=886) 83 mg/dL CHOLESTEROL (BEAKER) (test qvuh=526) 198 mg/dL HDL CHOLESTEROL (BEAKER) (test aglg=077) 54 mg/dL LDL CHOLESTEROL CALCULATED (BEAKER) (test 127 mg/dL dsyq=929) Triglyceride Reference Range: Low Risk <150 Borderline 150- 199 High Risk 200-499 Very High Risk >=500Cholesterol Reference Range: Low Risk <200 Borderline 200-239 High Risk > 240HDL Cholesterol Reference Range: Low Risk >=60 High Risk <40LDL Cholesterol Reference Range: Optimal <100 Near Optimal 100-129 Borderline 130-159 High 160-189 Very High >=190BASIC METABOLIC [id number] 19:24:00 Test Item Value Reference Range Comments SODIUM (BEAKER) (test 133 meq/L 136-145 nhnc=433) POTASSIUM (BEAKER) (test 3.7 meq/L 3.5-5.1 tvxu=917) CHLORIDE (BEAKER) (test 90 meq/L 98-107 icxz=360) CO2 (BEAKER) (test 31 meq/L 22-29 fkec=604) BLOOD UREA NITROGEN 25 mg/dL 7-21 (BEAKER) (test totl=907) CREATININE (BEAKER) (test 0.83 mg/dL 0.57-1.25 tqll=096) GLUCOSE RANDOM (BEAKER) 126 mg/dL 70-105 (test zigh=894) CALCIUM (BEAKER) (test 11.0 mg/dL 8.4-10.2 wrbu=956) EGFR (BEAKER) (test 68 mL/min/1.73 sq m ESTIMATED GFR IS NOT aruw=6610) ACCURATE CREATININE CLEARANCE IN PREDICTING GLOMERULAR FILTRATION RATE. ESTIMATED GFR IS NOT APPLICABLE FOR DIALYSIS PATIENTS. PROTHROMBIN TIME/[id number] 19:17:00 Test Item Value Reference Range Comments PROTIME (BEAKER) (test thwo=551) 14.1 seconds 11.7-14.7 INR (BEAKER) (test apaj=963) 1.1 <=5.9 RECOMMENDED COUMADIN/WARFARIN INR THERAPY RANGESSTANDARD DOSE: 2.0 - 3.0 Includes: PROPHYLAXIS forvenous thrombosis, systemic embolization; TREATMENT for venous thrombosis and/or pulmonary embolus.HIGH RISK: Target INR is 2.5-3.5 for patients with mechanical heart valves.[id number] 19:17:00 Test Item Value Reference Range Comments PARTIAL THROMBOPLASTIN TIME (BEAKER) (test 24.9 seconds 22.5-36.0 jozi=614) URINALYSIS W/ [id number] 19:15:00 Test Item Value Reference Range Comments COLOR (BEAKER) (test etvm=296) Yellow CLARITY (BEAKER) (test tify=210) Clear SPECIFIC GRAVITY UA (BEAKER) (test miny=711) 1.009 1.001-1.035 PH UA (BEAKER) (test ngtz=665) 7.0 5.0-8.0 PROTEIN UA (BEAKER) (test dfrv=033) Negative Negative GLUCOSE UA (BEAKER) (test qmkn=573) Negative Negative KETONES UA (BEAKER) (test dfzz=144) Negative Negative BILIRUBIN UA (BEAKER) (test vcje=736) Negative Negative BLOOD UA (BEAKER) (test smre=408) Negative Negative NITRITE UA (BEAKER) (test xqvr=219) Negative Negative LEUKOCYTE ESTERASE UA (BEAKER) (test mmlb=450) Negative Negative UROBILINOGEN UA (BEAKER) (test tjrz=410) 0.2 mg/dL 0.2-1.0 RBC UA (BEAKER) (test gfzq=126) < /HPF WBC UA (BEAKER) (test etmh=929) 1 /HPF SQUAMOUS EPITHELIAL (BEAKER) (test bshb=614) < /HPF SOURCE(BEAKER) (test zqyt=8681) Urine, [place] POCT-GLUCOSE [id number] 18:33:00 Test Item Value Reference Range Comments POC-GLUCOSE METER (BEAKER) 75 mg/dL 70-[address] [facility] [address] (test gkgy=7483) [facility] [address]
[2019-03-06] MEDS ORDERED: FENTANYL CITR 100 MCG/2 ML ONE ×2 (13:54→14:57)
--- NOTE | 2019-03-06 14:26 | RAD REPORT ---
EXAM DESCRIPTION: RAD - Knee Right 2 View - 03/06/2019 2:18 pm CLINICAL HISTORY: PAIN, FALL COMPARISON: Knee Right 3 View dated 04/23/2012 FINDINGS: Right total knee arthroplasty is present. Mildly impacted fracture of the distal right fem ur superior to the femoral arthroplasty component is seen.
--- NOTE | 2019-03-06 14:33 | EDPHYS ---
Physician Documentation [facility] Name: Rocio Quiroz Age: 74 yrs Sex: Female : 1945 Arrival Date: 03/06/2019 Time: 12:55 Bed 23 Private MD: ED Physician Maximus Ladd HPI: 03/06 14:42 This 74 yrs old Female presents to ER via EMS with complaints of Leg Injury. snw 14:42 The patient presents with decreased range of motion, pain. The complaints affect the snw right knee. Context: The problem was sustained at home, resulted from the patient falling, standing and her knee gave out, the patient is not able to bear weight, the patient is not able to ambulate, bedbound since 2017 post CVA. Onset: The symptoms/episode began/occurred suddenly, just prior to arrival. Associated signs and symptoms: The patient has no apparent associated signs or symptoms. Treatment prior to arrival includes: no previous treatment. Severity of symptoms: At their worst the symptoms were mild. The patient has not experienced similar symptoms in the past. It is unknown whether or not the patient has recently seen a physician. Knee replacement bilaterally years ago. Pt only stands for transfers since 2017 CVA. Historical: - Allergies: 13:12 Aspirin; iw 13:12 Demerol; iw 13:12 Haldol; iw 13:12 Ibuprofen; iw 13:12 Iodine; iw 13:12 IV contrast; iw 13:12 Latex, Natural Rubber; iw 13:12 Morphine; iw 13:12 PENICILLINS; iw - Home Meds: 13:12 tramadol 50 mg Oral tab 1 tab every 6 hours [Active]; Ativan 1 mg Oral tab every 6 iw hours [Active]; Vitamin B-12 Oral daily [Active]; benzonatate 200 mg oral cap daily [Active]; duloxetine 60 mg oral cpDR 2 caps once daily [Active]; Seroquel 50 mg Oral tab nightly [Active]; Imodium A-D 2 mg oral tab every 6 hours [Active]; aspirin 325 mg Oral tab 1 tab once daily [Active]; atorvastatin 80 mg oral tab once daily [Active]; acetaminophen 325 mg Oral tab 2 tabs for Fever [Active]; Acidophilus Oral cap daily [Active]; ergocalciferol (vitamin D2) 50,000 unit oral cap once daily [Active]; Lidoderm 5 % Topical ptmd 1 patch once daily [Active]; Metoprolol Tartrate 12.5 mg Oral 2 times per day [Active]; ipratropium-albuterol 0.5 mg-3 mg(2.5 mg base)/3 mL Inhl nebu 3 mL 4 times per day [Active]; Acidophilus Oral cap daily [Active]; nitroglycerin 0.4 mg SL subl 1 tab every 5 minutes [Active]; clopidogrel 75 mg Oral tab 1 tab once daily [Active]; furosemide 40 mg Oral tab once daily [Active]; omeprazole 20 mg Oral cpDR 1 cap once daily [Active]; melatonin 3 mg Oral tab nightly [Active]; montelukast 10 mg oral tab 1 tab once daily [Active]; - PMHx: 13:12 Anemia; Atrial Fib; Cerebral infarction; Sleep Apnea; vitamin d deficiency; iw - Immunization history:: Adult Immunizations up to date. - Social history:: Smoking status: Patient/guardian denies using tobacco, Patient/guardian denies using alcohol, street drugs, IV drugs, caffeine. - Ebola Screening: : Patient negative for fever greater than or equal to 101.5 degrees Fahrenheit, and additional compatible Ebola Virus Disease symptoms Patient denies exposure to infectious person Patient denies travel to an Ebola-affected area in the 21 days before illness onset No symptoms or risks identified at this time. ROS: 14:39 Constitutional: Negative for fever, chills, and weight loss, Eyes: Negative for injury, snw pain, redness, and discharge, ENT: Negative for injury, pain, and discharge, Neck: Negative for injury, pain, and swelling, Cardiovascular: Negative for chest pain, palpitations, and edema, Respiratory: Negative for shortness of breath, cough, wheezing, and pleuritic chest pain, Abdomen/GI: Negative for abdominal pain, nausea, vomiting, diarrhea, and constipation, Back: Negative for injury and pain, : Negative for injury, bleeding, discharge, and swelling, Skin: Negative for injury, rash, and discoloration, Neuro: Negative for headache, weakness, numbness, tingling, and seizure, Psych: Negative for depression, anxiety, suicide ideation, homicidal ideation, and hallucinations. 14:39 MS/extremity: Positive for injury or acute deformity, decreased range of motion, pain, of the right knee. Exam: 14:23 Head/Face: Normocephalic, atraumatic. Eyes: Pupils equal round and reactive to light, snw extra-ocular motions intact. Lids and lashes normal. Conjunctiva and sclera are non-icteric and not injected. Cornea within normal limits. Periorbital areas with no swelling, redness, or edema. ENT: Nares patent. No nasal discharge, no septal abnormalities noted. Tympanic membranes are normal and external auditory canals are clear. Oropharynx with no redness, swelling, or masses, exudates, or evidence of obstruction, uvula midline. Mucous membranes moist. Neck: Trachea midline, no thyromegaly or masses palpated, and no cervical lymphadenopathy. Supple, full range of motion without nuchal rigidity, or vertebral point tenderness. No Meningismus. Chest/axilla: Normal chest wall appearance and motion. Nontender with no deformity. No lesions are appreciated. Cardiovascular: irregularly irregular rate and rhythm with a normal S1 and S2. No gallops, murmurs, or rubs. Normal PMI, no JVD. No pulse deficits. Respiratory: Lungs have equal breath sounds bilaterally, clear to auscultation and percussion. No rales, rhonchi or wheezes noted. No increased work of breathing, no retractions or nasal flaring. 14:23 Back: No spinal tenderness. No costovertebral tenderness. Full range of motion. 14:23 Constitutional: The patient appears alert, awake, frail, obese, pale. 14:23 Abdomen/GI: Inspection: obese Bowel sounds: normal, Palpation: abdomen is soft and non-tender. 14:23 Skin: Appearance: Color: pale, ecchymosis, noted on the, right leg and left leg, that are mild, and are diffusely located. 14:23 Neuro: Orientation: to person, place \T\ time. Mentation: is normal, Memory: is normal, Cerebellar function: hx of hemiparesis s/p CVA, Motor: s/p CVA, Gait: not tested. pt non-ambulatory, stands for transfers. seizure activity, is not displayed by the patient. Vital Signs: 13:02 BP 127 / 55; Pulse 114; Resp 11; Temp 98.3; Pulse Ox 98% on R/A; Weight 132 kg; Pain ls4 7/10; 14:02 BP 104 / 71; Pulse 118; Resp 10; Pulse Ox 96% on R/A; Pain 6/10; ls4 15:04 BP 103 / 68; Pulse 104; Resp 12; Pulse Ox 98% on R/A; Pain 4/10; ls4 17:00 BP 102 / 56; Pulse 109; Resp 11; Pulse Ox 98% on R/A; Pain 5/10; ls4 18:00 BP 118 / 94; Pulse 119; Resp 13; Pulse Ox 99% ; Pain 5/10; ls4 21:00 BP 134 / 98; Pulse 122; Resp 14; Pulse Ox 99% on R/A; Pain 5/10; ls4 MDM: 13:00 Patient medically screened. snw 14:26 Data reviewed: vital signs, nurses notes. Data interpreted: Pulse oximetry: on room air snw is 96 %. Interpretation: acceptable. Counseling: I had a detailed discussion with the patient and/or guardian regarding: the historical points, exam findings, and any diagnostic results supporting the discharge/admit diagnosis, radiology results, the need for outpatient follow up, to return to the emergency department if symptoms worsen or persist or if there are any questions or concerns that arise at home. Special discussion: Based on the history and exam findings, there is no indication for further emergent testing or inpatient evaluation. I discussed with the patient/guardian the need to see the orthopedic surgeon for further evaluation of the symptoms. I discussed with the patient/guardian the need to see the primary care provider for further evaluation of the symptoms. 14:34 Physician consultation: Nicanor Peacock MD was called at 14:00, was contacted at 14:00, snw regarding consult, patient's condition, pt is very poor surgical candidate and is immobile for the most part. 16:05 Counseling: I had a detailed discussion with the patient and/or guardian regarding: the snw historical points, exam findings, and any diagnostic results supporting the discharge/admit diagnosis. Physician consultation: Ozzie Alicea MD was contacted at 15:30, regarding patient's condition, Dr. Alicea will speak with Dr. Peacock re: f/u/plan. Family requests pt be transferred. Same type fracture to left femur six months ago was repaired at [place] per Dr. Jordan Villegas. Will attempt transfer.. 17:07 ED course: Dr. Ladd discussing risk/benefit of surgical intervention/transfer vs pain snw control without surgical intervention with family at length. Dr. Peterson kindly accepts pt in transfer without consult. Awaiting pt and pt family decision re: intervention post family request to be transferred. . 19:12 ED course: Family was ok with transfer but as patient being wheeled out, her Son Holden Quiroz called and does not want patient transferred to [facility], wants her taken back to [facility], states absolutely does not want her transferred. Patient now states does not want to be transferred. . 03/06 15:58 Order name: PT-INR snw 03/06 15:58 Order name: Ptt, Activated snw 03/06 15:58 Order name: TS snw 03/06 15:58 Order name: CBC with Diff snw 03/06 17:18 Order name: Basic Metabolic Panel EDMS 03/06 14:17 Order name: Knee Right 2 View; Complete Time: 14:47 EDMS 03/06 14:26 Order name: Knee Immobilizer; Complete Time: 14:30 snw 03/06 15:58 Order name: Chest Single View XRAY; Complete Time: 17:07 snw 03/06 17:13 Order name: Labs - recollect needed; Complete Time: 17:56 bd Administered Medications: 13:40 Drug: fentaNYL (PF) 50 mcg Route: IM; Site: right deltoid; ls4 14:09 Follow up: Response: No adverse reaction; Marked relief of symptoms ls4 14:35 Drug: fentaNYL (PF) 50 mcg Route: IM; Site: right deltoid; ls4 15:50 Follow up: Response: No adverse reaction; Marked relief of symptoms ls4 17:35 Drug: Demerol - Meperidine 12.5 mg Route: IVP; Site: right hand; ls4 18:17 Follow up: Response: No adverse reaction; Marked relief of symptoms ls4 19:07 Drug: Demerol - Meperidine 12.5 mg Route: IVP; Site: right hand; ls4 19:37 Follow up: Response: No adverse reaction; Marked relief of symptoms ls4 Disposition: 03/06/19 20:44 Discharged to Home. Impression: Closed Distal right femur fracutre abutting knee arthroplasty. - Condition is Stable. - Medication Reconciliation Form, Thank You Letter, Antibiotic Education, Prescription Opioid Use form. - Follow up: Emergency Department; When: As needed; Reason: Worsening of condition. Follow up: Private Physician; When: 2 - 3 days; Reason: Recheck today's complaints, Continuance of care, Re-evaluation by your physician. Addendum: 03/08/2019 06:57 Co-signature as Attending Physician, Maximus Ladd MD. r n Signatures: Dispatcher [employer] [facility] Artemio Raegan, SUPERVISOR [employer]Ckb Ramsse Idalmis Irma Schaeffer, SUPER[employer]OR [employer]Cs[employer] aVlarie Styles, RN RN iw Wilberto, MD MD ketty Stroud Lisa, RN RN ls4 Corrections: (The following items were deleted from the chart) 03/06 13:13 13:12 Ebola Screening: Patient negative for fever greater than or equal to 101.5 iw degrees Fahrenheit, and additional compatible Ebola Virus Disease symptoms Patient denies exposure to infectious person Patient denies travel to an Ebola-affected area in the 21 days before illness onset No symptoms or risks identified at this time iw 13:13 13:12 Social history: Smoking status: Patient/guardian denies using tobacco, iw 13:13 13:12 Immunization history: Adult Immunizations up to date, [facility] 14:17 13:25 Knee Right 3 View+RAD.RAD.BRZ ordered. [facility] 16:05 14:33 03/06/2019 14:33 Discharged to Home. Impression: Right distal femur fracture at [facility] arthroplasty, closed, NVS intact. Condition is Stable. Forms are Medication Reconciliation Form, Thank You Letter, Antibiotic Education, Prescription Opioid Use. Follow up: Private Physician; When: 2 - 3 days; Reason: Recheck today's complaints, Continuance of care, Re-evaluation by your physician. Follow up: Emergency Department; When: As needed; Reason: Worsening of condition. [facility] 17:16 16:00 BASIC METABOLIC PANEL+C.LAB.BRZ ordered. [facility] 19:10 17:14 03/06/2019 17:14 Transfer ordered to [facility]. ls4 Diagnosis is Closed distal right femur fracture abutting knee arthroplasty. Reason for transfer: Higher level of care. Accepting physician is Dr. Peterson. Condition is Stable. Problem is new. Symptoms are unchanged. snw 20:43 19:10 03/06/2019 17:14 Transfer ordered to [facility]. kb Diagnosis is Closed distal right femur fracture abutting knee arthroplasty. Reason for transfer: Higher level of care. Accepting physician is Dr. Peterson. Condition is Stable. Problem is new. Symptoms are unchanged. ls4 21:01 20:44 03/06/2019 20:44 Discharged to Home. Impression: Closed Distal right femur ls4 fracutre abutting knee arthroplasty. Condition is Stable. Forms are Medication Reconciliation Form, Thank You Letter, Antibiotic Education, Prescription Opioid Use. Follow up: Emergency Department; When: As needed; Reason: Worsening of condition. Follow up: Private Physician; When: 2 - 3 days; Reason: Recheck today's complaints, Continuance of care, Re-evaluation by your physician. kb
--- NOTE | 2019-03-06 14:33 | ER ---
Nurse's Notes [facility] Name: Rocio Quiroz Age: 74 yrs Sex: Female : 1945 Arrival Date: 03/06/2019 Time: 12:55 Bed 23 Private MD: Diagnosis: Closed Distal right femur fracutre abutting knee arthroplasty Presentation: 03/06 12:58 Presenting complaint: Patient states: was at her family's house yesterday, bent over to iw kiss her family member christiano and her right knee buckled underneath her, was lowered to ground by her family, pt started to c/o pain last night, had xray done this morning at detention, +right distal femur fracture. Transition of care: patient was received from another setting of care ([facility]), [facility]. Onset of symptoms was March 05, 2019. Risk Assessment: Do you want to hurt yourself or someone else? Patient reports no desire to harm self or others. Initial Sepsis Screen: Does the patient meet any 2 criteria? No. Patient's initial sepsis screen is negative. Does the patient have a suspected source of infection? No. Patient's initial sepsis screen is negative. Care prior to arrival: None. 12:58 Method Of Arrival: EMS: [facility] iw 12:58 Acuity: LINDSEY 3 iw 13:02 Presenting complaint: Patient states: i stood up yesterday to say goodby to and ls4 my left knee buckled and I was lowered to the floor. right leg and knee pain. EMS states: xray shows fractured distal femur. Transition of care: patient was received from another setting of care ([facility]), [facility]. Onset of symptoms was March 05, 2019. Risk Assessment: Do you want to hurt yourself or someone else? Patient reports no desire to harm self or others. Initial Sepsis Screen: Does the patient meet any 2 criteria? No. Patient's initial sepsis screen is negative. Does the patient have a suspected source of infection? No. Patient's initial sepsis screen is negative. Care prior to arrival: None. Activity prior to arrival: None. Mechanism of Injury: Fall an unknown distance. 13:02 Method Of Arrival: EMS: [facility] ls4 13:02 Acuity: LINDSEY 3 ls4 Triage Assessment: 13:02 General: Appears uncomfortable, obese, Behavior is fussy. Musculoskeletal: Circulation, ls4 motion, and sensation intact. Capillary refill < 3 seconds, Range of motion: limited in all extremities. Injury Description: Deformity sustained to right knee and upper right leg. 14:03 Pain: Complains of pain in right leg Pain currently is 6 out of 10 on a pain scale. ls4 Respiratory: Respiratory effort is even, unlabored, Respiratory pattern is regular. Historical: - Allergies: 13:12 Aspirin; iw 13:12 Demerol; iw 13:12 Haldol; iw 13:12 Ibuprofen; iw 13:12 Iodine; iw 13:12 IV contrast; iw 13:12 Latex, Natural Rubber; iw 13:12 Morphine; iw 13:12 PENICILLINS; iw - Home Meds: 13:12 tramadol 50 mg Oral tab 1 tab every 6 hours [Active]; Ativan 1 mg Oral tab every 6 iw hours [Active]; Vitamin B-12 Oral daily [Active]; benzonatate 200 mg oral cap daily [Active]; duloxetine 60 mg oral cpDR 2 caps once daily [Active]; Seroquel 50 mg Oral tab nightly [Active]; Imodium A-D 2 mg oral tab every 6 hours [Active]; aspirin 325 mg Oral tab 1 tab once daily [Active]; atorvastatin 80 mg oral tab once daily [Active]; acetaminophen 325 mg Oral tab 2 tabs for Fever [Active]; Acidophilus Oral cap daily [Active]; ergocalciferol (vitamin D2) 50,000 unit oral cap once daily [Active]; Lidoderm 5 % Topical ptmd 1 patch once daily [Active]; Metoprolol Tartrate 12.5 mg Oral 2 times per day [Active]; ipratropium-albuterol 0.5 mg-3 mg(2.5 mg base)/3 mL Inhl nebu 3 mL 4 times per day [Active]; Acidophilus Oral cap daily [Active]; nitroglycerin 0.4 mg SL subl 1 tab every 5 minutes [Active]; clopidogrel 75 mg Oral tab 1 tab once daily [Active]; furosemide 40 mg Oral tab once daily [Active]; omeprazole 20 mg Oral cpDR 1 cap once daily [Active]; melatonin 3 mg Oral tab nightly [Active]; montelukast 10 mg oral tab 1 tab once daily [Active]; - PMHx: 13:12 Anemia; Atrial Fib; Cerebral infarction; Sleep Apnea; vitamin d deficiency; iw - Immunization history:: Adult Immunizations up to date. - Social history:: Smoking status: Patient/guardian denies using tobacco, Patient/guardian denies using alcohol, street drugs, IV drugs, caffeine. - Ebola Screening: : Patient negative for fever greater than or equal to 101.5 degrees Fahrenheit, and additional compatible Ebola Virus Disease symptoms Patient denies exposure to infectious person Patient denies travel to an Ebola-affected area in the 21 days before illness onset No symptoms or risks identified at this time. Screenin:11 Abuse screen: Denies threats or abuse. Denies injuries from another. Nutritional ls4 screening: No deficits noted. Tuberculosis screening: No symptoms or risk factors identified. Fall Risk Fall in past 12 months (25 points). Secondary diagnosis (15 points) impaired mobility, CVA, IV access (20 points). Ambulatory Aid- None/Bed Rest/Nurse Assist (0 pts). Gait- Normal/Bed Rest/Wheelchair (0 pts) Mental Status- Oriented to own ability (0 pts). Total Friedman Fall Scale indicates High Risk Score (45 or more points). Fall prevention measures have been instituted. Side Rails Up X 2 Placed Close to Nursing Station Frequent Obs/Assessments Occuring As available patient and family educated on Fall Prevention Program and Strategies. Assessment: 13:04 General: Appears in no apparent distress. uncomfortable, obese, Behavior is fussy. ls4 Pain: Complains of pain in right leg and right knee Pain currently is 7 out of 10 on a pain scale. 13:04 Neuro: Level of Consciousness is awake, alert, obeys commands, Oriented to person, ls4 place, time, situation. Respiratory: Airway is patent Respiratory effort is even, unlabored, Respiratory pattern is regular. Musculoskeletal: Circulation, motion, and sensation intact. Capillary refill < 3 seconds, Range of motion: limited in right leg and right knee Reports pain in right leg and right knee since yesterday . 14:04 Reassessment: Patient and/or family updated on plan of care and expected duration. Pain ls4 level reassessed. Patient is alert, oriented x 3, equal unlabored respirations, skin warm/dry/pink. 19:23 Reassessment: Zohreh with [facility] notified that pt refusing transfer and is fc wanting to return to her home there. She states that she will speak with her yard general car supervisor and discuss it with her and call me back. 19:27 Reassessment: Notified Dr Ladd about pts refusal to transfer. He states that he spoke fc with pts son and he also does not want her transferred. IF detention ok to take her back pt ok to be discharged to them, if not contact son and discuss issues. Vital Signs: 13:02 BP 127 / 55; Pulse 114; Resp 11; Temp 98.3; Pulse Ox 98% on R/A; Weight 132 kg; Pain ls4 7/10; 14:02 BP 104 / 71; Pulse 118; Resp 10; Pulse Ox 96% on R/A; Pain 6/10; ls4 15:04 BP 103 / 68; Pulse 104; Resp 12; Pulse Ox 98% on R/A; Pain 4/10; ls4 17:00 BP 102 / 56; Pulse 109; Resp 11; Pulse Ox 98% on R/A; Pain 5/10; ls4 18:00 BP 118 / 94; Pulse 119; Resp 13; Pulse Ox 99% ; Pain 5/10; ls4 21:00 BP 134 / 98; Pulse 122; Resp 14; Pulse Ox 99% on R/A; Pain 5/10; ls4 ED Course: 12:55 Patient arrived in ED. iw 13:00 Irma Rainey FNP-C [facility] snw 13:00 Maximus Ladd MD is Attending Physician. snw 13:01 Triage completed. iw 13:02 Sridevi Reeves, RN is Primary Nurse. ls4 13:02 Arm band placed on right wrist. ls4 13:11 Patient has correct armband on for positive identification. Fall risk band placed. Bed ls4 in low position. Call light in reach. Side rails up X2. rolled materials worker on. Pulse ox on. NIBP on. Warm blanket given. Verbal reassurance given. Diet: Patient is NPO. 13:11 No provider procedures requiring assistance completed. ls4 14:20 Knee Right 2 View In Process Unspecified. EDMS 15:41 spoke to Martha at [facility] regarding discharge. Martha stated that she did not want ls4 to accept pt back because she feedls the pattient needs surgery. I explained that our practitioners reviewed her xray and called surgioun who determined she is not a surgical candidate for repair of this injury. Martha then questioned why we are not sending her to [place] and was argumentative. I explained that I would speak to our practioners again and told her she could call Dr Alicea if she wished to. 15:45 called [facility] twice to speak to nurse regarding discharge. put on hold and unable ls4 to speak to nurse regarding discharge. 15:51 Knee immobilizer applied on right knee. ls4 15:52 SPOKE TO MARTHA AT [facility] WHO STATES SHE WAS SPEAKING WITH SON SAYRA QUIROZ WHO WILL ls4 BE CALLING BECAUSE HE WANTS HER SENT TO [place]. 16:37 Chest Single View XRAY In Process Unspecified. EDMS 16:55 attempted [place] [facility] was excepted to the er. bd 17:32 Inserted saline lock: 20 gauge in right wrist, using aseptic technique. Blood collected.ls4 17:44 REPORT CALLED TO [facility]. MADELAINE SOLIMAN RN. ls4 19:09 Patient transferred, IV remains in place. ls4 19:30 PHCP role handed off by Irma Rianey FNP-C 19:30 Primary Nurse role handed off by Sridevi Reeves, RN 19:34 Sridevi Reeves, RN is Primary Nurse. ls4 19:34 PT WAS ON EMS STRETCHER AND STATED THAT SHE DOES NOT WANT TO GO TO [place]. SHE STATES ls4 THAT SHE WANTS TO GO BACK TO [place] AND BE CLOSE TO HER HUSBUND IN CASE HE PASSES. SHE STATES SHE JUST SIGNED CAUSE HER FAMILY PRESSURED HER AND SHE "FELT BAD". 21:00 IV discontinued, intact, bleeding controlled, No redness/swelling at site. Pressure ls4 dressing applied. Administered Medications: 13:40 Drug: fentaNYL (PF) 50 mcg Route: IM; Site: right deltoid; ls4 14:09 Follow up: Response: No adverse reaction; Marked relief of symptoms ls4 14:35 Drug: fentaNYL (PF) 50 mcg Route: IM; Site: right deltoid; ls4 15:50 Follow up: Response: No adverse reaction; Marked relief of symptoms ls4 17:35 Drug: Demerol - Meperidine 12.5 mg Route: IVP; Site: right hand; ls4 18:17 Follow up: Response: No adverse reaction; Marked relief of symptoms ls4 19:07 Drug: Demerol - Meperidine 12.5 mg Route: IVP; Site: right hand; ls4 19:37 Follow up: Response: No adverse reaction; Marked relief of symptoms ls4 Outcome: 14:33 Discharge ordered by . snw 17:14 ER care complete, transfer ordered by . snw 19:07 Transferred to [facility], Transfer form completed. X-rays sent w/ patient. ls4 19:07 Condition: stable 19:07 Discharge instructions given to family, EMS, Instructed on the need for transfer. 19:10 Patient left the ED. ls4 20:33 Discharged to detention. Report called to ZOHREH AT [facility] ls4 20:44 Discharge ordered by . kb 21:01 Patient left the ED. ls4 Signatures: Dispatcher [employer] EDMS Raegan Ulloa, DISTRESSER-C DISTRESSER-Ckb Idalmis Pearce Shelly, DISTRESSER-C DISTRESSER-Isacw Ida Roberts RN RN Valarie Styles RN RN Sridevi Reeves RN RN ls4 Corrections: (The following items were deleted from the chart) 13:13 13:12 Ebola Screening: Patient negative for fever greater than or equal to 101.5 iw degrees Fahrenheit, and additional compatible Ebola Virus Disease symptoms Patient denies exposure to infectious person Patient denies travel to an Ebola-affected area in the 21 days before illness onset No symptoms or risks identified at this time iw 13:13 13:12 Social history: Smoking status: Patient/guardian denies using tobacco, [facility] 13:13 13:12 Immunization history: Adult Immunizations up to date, iw
--- NOTE | 2019-03-06 16:42 | RAD REPORT ---
EXAM DESCRIPTION: [place] Single View03/06/2019 4:36 pm CLINICAL HISTORY: Preop for knee surgery COMPARISON: September 2018 FINDINGS: The lungs appear clear of acute infiltrate. The heart is borderline enlarged. Aorta is to rtuous/ectatic IMPRESSION: No acute abnormalities displayed
[2019-03-06] MEDS ORDERED: MEPERIDINE HCL 25 MG/0.5 ML ONE ×2 (17:42→19:11)
[2019-03-06 18:25] LABS: Absolute Lymphocytes (CBC) 2.8 K/uL (0.7-4.9); Absolute Monocytes 0.8 K/uL (0.1-1.3); Absolute Neutrophil 5.5 K/uL (1.8-8.0); Basophils % 0.3 % (0-1.3); Eosinophils % 2.4 % (0-4.4); Hematocrit 31.8 % (36.0-45.0); Lymphocytes % 30.4 % (15.3-44.8); MPV 7.7 fL (7.6-11.3); Monocytes % 8.3 % (3.3-12.3)
[2019-03-06 18:39] LABS: Potassium 4.3 mmol/L (3.5-5.1)
[2019-03-06 18:57] LABS: Protime INR 1.01
[2019-03-06 19:13] VITALS: TEMP 98.3
[2019-03-06 19:18] VITALS: O2SAT 99
[2019-03-06 21:35] VITALS: BP 134/98
== END 2019-03-06 21:01 | disposition home or self-care (01) ==
LOC: ER 12:53
DX: S72.401A Unspecified fracture of lower end of right femur, initial encounter for closed fracture (principal); M97.11XA Periprosthetic fracture around internal prosthetic right knee joint, initial encounter; W19.XXXA Unspecified fall, initial encounter; Y93.9 Activity, unspecified; Y92.009 Unspecified place in unspecified non-institutional (private) residence as the place of occurrence of the external cause; Z79.82 Long term (current) use of aspirin; Z88.0 Allergy status to penicillin; Z88.5 Allergy status to narcotic agent; Z88.6 Allergy status to analgesic agent; Z88.8 Allergy status to other drugs, medicaments and biological substances; Z91.040 Latex allergy status; Z91.048 Other nonmedicinal substance allergy status; I48.91 Unspecified atrial fibrillation; D64.9 Anemia, unspecified
CPT/HCPCS: 85025; 80048; 36415; 86900; 86850 ×2; 85610; 86901; 85730; 71045; 73560; 96372; 96374; 99285; J3010 ×2; J2175 ×2

== ENCOUNTER 2021-07-15 09:15 | Inpatient (IN) | payer OTHER ==
[2021-07-15 09:53] LABS: Absolute Lymphocytes (CBC) 1.2 K/uL (0.7-4.9); Basophils % 0.2 % (0-1.3); Hematocrit 28.6 % (36.0-45.0); Lymphocytes % 10.6 % (15.3-44.8); MPV 6.7 fL (7.6-11.3); RBC Red Blood Cell Count 3.41 M/uL (3.86-4.86)
[2021-07-15] MEDS ORDERED: NA CHLORIDE 0.9% 1,000 ML ONE ×2 (09:55→10:03)
[2021-07-15 09:58] LABS: Protime INR 1.21
[2021-07-15] MEDS ORDERED: CEFEPIME 1 GM/100 ML BAG IV ONE (10:00)
--- NOTE | 2021-07-15 10:07 | RAD REPORT ---
EXAM DESCRIPTION: RAD - Chest Single View - 07/15/2021 9:52 am CLINICAL HISTORY: COUGH COMPARISON: Chest Single View dated 03/06/2019; Chest Single View dated 09/21/2018; Chest Single View dated 03/23/2018; Chest Single View dated 01/31/2018 FINDINGS: Lines: None. Lungs: Question lesion in the medial aspect of the left upper lobe. The lungs are otherwise clear . Pleural: No significant pleural effusions or pneumothorax. Cardiac: The heart size is within normal limits. Bones: No acute fractures. Other: IMPRESSION: No acute cardiopulmonary disease. Possible nodule in the medial aspect of the left upper lobe. Recommend nonemergent chest CT for further evaluation.
[2021-07-15 10:13] LABS: ALT/SGPT 14 U/L (12-78); AST/SGOT 14 U/L (15-37); Albumin 2.3 g/dL (3.4-5.0); Alkaline Phosphatase 165 U/L (45-117); Amylase 14 U/L (25-115); BUN Blood Urea Nitrogen 14 mg/dL (7-18); Bicarbonate 24 mmol/L (21-32); Bilirubin Direct 0.2 mg/dL (0-0.2); Bilirubin Total 0.5 mg/dL (0.2-1.0); CKMB Creatine Kinase MB 1.1 ng/mL (1.0-3.6); Creatine Phosphokinase 54 U/L (26-192); Glucose Level 124 mg/dL (74-106); Lipase 18 U/L (73-393); Magnesium 1.9 mg/dL (1.8-2.4); NT PRO-BNP 1981 pg/mL (<450); Potassium 4.4 mmol/L (3.5-5.1); Protein, Total 6.5 g/dL (6.4-8.2); Sodium Level 134 mmol/L (136-145); Troponin (Emerg Dept Use Only) < 0.02 ng/mL (0.0-0.045)
--- NOTE | 2021-07-15 10:49 | EDPHYS ---
Physician Documentation [facility] Name: Rocio Quiroz Age: 76 yrs Sex: Female : 1945 Arrival Date: 07/15/2021 Time: 09:17 Bed 8 Private MD: ED Physician Tayo Rosa HPI: 07/15 10:44 This 76 yrs old Female presents to ER via EMS with complaints of Fever, ashish Altered Mental Status, Urinary Problem. 10:44 The patient reports fever, that was measured at 100.3 degrees Fahrenheit. Onset: The ashish symptoms/episode began/occurred 2 day(s) ago. Modifying factors: there are no obvious modifying factors. Associated signs and symptoms: Pertinent positives: cough, runny nose. Severity of symptoms: At their worst the symptoms were moderate in the emergency department the symptoms are unchanged. The patient has not experienced similar symptoms in the past. Historical: - Allergies: 09:25 Aspirin; tw2 09:25 Demerol; tw2 09:25 Haldol; tw2 09:25 Ibuprofen; tw2 09:25 Iodine; tw2 09:25 IV contrast; tw2 09:25 Latex, Natural Rubber; tw2 09:25 Morphine; tw2 09:25 PENICILLINS; tw2 - PMHx: 09:25 Anemia; Atrial Fib; Cerebral infarction; Sleep Apnea; vitamin d deficiency; tw2 - Immunization history:: Adult Immunizations. - Social history:: Smoking status: . ROS: 10:45 Constitutional: Negative for fever, chills, and weight loss, Eyes: Negative for injury, ashish pain, redness, and discharge, ENT: Negative for injury, pain, and discharge, Neck: Negative for injury, pain, and swelling, Abdomen/GI: Negative for abdominal pain, nausea, vomiting, diarrhea, and constipation, Back: Negative for injury and pain, MS/Extremity: Negative for injury and deformity, Skin: Negative for injury, rash, and discoloration, Psych: Negative for depression, anxiety, suicide ideation, homicidal ideation, and hallucinations, Allergy/Immunology: Negative for hives, rash, and allergies, Endocrine: Negative for neck swelling, polydipsia, polyuria, polyphagia, and marked weight changes, Hematologic/Lymphatic: Negative for swollen nodes, abnormal bleeding, and unusual bruising. 10:45 Constitutional: Positive for fever. 10:45 Cardiovascular: Positive for palpitations. 10:45 Respiratory: Positive for cough, shortness of breath, at rest. 10:45 Neuro: Positive for altered mental status, weakness. Exam: 10:45 Constitutional: This is a well developed, well nourished patient who is awake, alert, ashish and in no acute distress. Head/Face: Normocephalic, atraumatic. Eyes: Pupils equal round and reactive to light, extra-ocular motions intact. Lids and lashes normal. Conjunctiva and sclera are non-icteric and not injected. Cornea within normal limits. Periorbital areas with no swelling, redness, or edema. ENT: Nares patent. No nasal discharge, no septal abnormalities noted. Tympanic membranes are normal and external auditory canals are clear. Oropharynx with no redness, swelling, or masses, exudates, or evidence of obstruction, uvula midline. Mucous membranes moist. Neck: Trachea midline, no thyromegaly or masses palpated, and no cervical lymphadenopathy. Supple, full range of motion without nuchal rigidity, or vertebral point tenderness. No Meningismus. Chest/axilla: Normal chest wall appearance and motion. Nontender with no deformity. No lesions are appreciated. Abdomen/GI: Soft, non-tender, with normal bowel sounds. No distension or tympany. No guarding or rebound. No evidence of tenderness throughout. Back: No spinal tenderness. No costovertebral tenderness. Full range of motion. Female : Normal external genitalia. Skin: Warm, dry with normal turgor. Normal color with no rashes, no lesions, and no evidence of cellulitis. MS/ Extremity: Pulses equal, no cyanosis. Neurovascular intact. Full, normal range of motion. Neuro: Awake and alert, GCS 15, oriented to person, place, time, and situation. Cranial nerves II-XII grossly intact. Motor strength 5/5 in all extremities. Sensory grossly intact. Cerebellar exam normal. Normal gait. Psych: Awake, alert, with orientation to person, place and time. Behavior, mood, and affect are within normal limits. 10:45 Cardiovascular: Rate: tachycardic, Rhythm: irregularly irregular, Pulses: Pulses are 4+ in bilateral radial, brachial, femoral, popliteal, posterior tibial and and dorsalis pedis arteries.. Heart sounds: normal, Edema: is not appreciated, JVD: is not appreciated. 10:45 ECG was reviewed by the Attending Physician. Vital Signs: 09:19 BP 120 / 79; Pulse 146; Resp 15; Temp 100.3; Weight 158.76 kg (R); tw2 10:26 BP 136 / 94; Pulse 120; Resp 22; Pulse Ox 98% on R/A; tw2 11:40 BP 133 / 93; Pulse 143; Resp 22; Pulse Ox 94% on R/A; tw2 12:00 BP 106 / 69; Pulse 114; Resp 22; Pulse Ox 95% on R/A; tw2 12:28 BP 116 / 78; Pulse 95; Resp 22; Pulse Ox 95% on R/A; tw2 12:59 Temp 99.5(O); tw2 13:27 BP 119 / 56; Pulse 89; Resp 20; Pulse Ox 95% on R/A; tw2 MDM: 09:19 Patient medically screened. ashish 10:49 Antibiotic administration: Levaquin given. Differential diagnosis: Bronchitis CHF ashish exacerbation, Chronic Obstructive Pulmonary Disease viral Infection, bacterial infection, URI, bronchitis, pneumonia urinary tract infection. Differential Diagnosis: CVA, electrolyte abnormality, hypoglycemia, intracranial bleed, pneumonia, seizure, sepsis, TIA, UTI, volume depletion. The patient's [place] Deep Vein Thrombosis Score was calculated as follows: Heart Rate >100 BPM (1.5 Pts) Total Score: 0-2 Pts- Low Risk. The patient's pulmonary embolism risk score was calculated as follows: No Risks (0 Pts). Immunization status: Pneumococcal vaccine: Influenza vaccine: Data reviewed: vital signs, nurses notes, EMS record, lab test result(s), EKG, radiologic studies, plain films. 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 Test interpretation: by ED physician or midlevel provider: ECG, plain radiologic studies. Counseling: I had a detailed discussion with the patient and/or guardian regarding: the historical points, exam findings, and any diagnostic results supporting the discharge/admit diagnosis, the presence of at least one elevated blood pressure reading (>120/80) during this emergency department visit, lab results, radiology results, the need for further work-up and treatment in the hospital. 07/15 09:21 Order name: Basic Metabolic Panel [facility] 07/15 09:21 Order name: CBC with Diff; Complete Time: 10:42 [facility] 07/15 09:21 Order name: LFT's; Complete Time: 10:42 [facility] 07/15 09:21 Order name: Magnesium; Complete Time: 10:42 [facility] 07/15 09:21 Order name: NT PRO-BNP; Complete Time: 10:42 [facility] 07/15 09:21 Order name: PT-INR; Complete Time: 10:42 [facility] 07/15 09:21 Order name: Troponin (emerg Dept Use Only); Complete Time: 10:42 [facility] 07/15 09:21 Order name: Amylase, Serum; Complete Time: 10:42 [facility] 07/15 09:21 Order name: Blood Culture Adult (2) [facility] 07/15 09:21 Order name: CPK; Complete Time: 10:42 [facility] 07/15 09:21 Order name: Ckmb; Complete Time: 10:42 [facility] 07/15 09:21 Order name: Lactate; Complete Time: 10:42 [facility] 07/15 09:21 Order name: Lipase; Complete Time: 10:42 [facility] 07/15 09:21 Order name: Procalcitonin; Complete Time: 10:42 [facility] 07/15 09:21 Order name: XRAY Chest (1 view); Complete Time: 10:42 [facility] 07/15 09:21 Order name: Ptt, Activated; Complete Time: 10:42 [facility] 07/15 09:21 Order name: Urine Microscopic Only; Complete Time: 12:10 [facility] 07/15 09:22 Order name: Basic Metabolic Panel; Complete Time: 10:42 [facility] 07/15 09:45 Order name: Glucose, Ancillary Testing; Complete Time: 10:42 [facility] 07/15 09:57 Order name: TSH; Complete Time: 12:10 [facility] 07/15 10:47 Order name: SARS-COV-2 RT PCR; Complete Time: 12:10 [facility] 07/15 10:50 Order name: CT Head Brain wo Cont; Complete Time: 12:10 07/15 10:51 Order name: CT Stone Protocol [facility] 07/15 12:04 Order name: Urine Culture [facility] 07/15 09:21 Order name: EKG; Complete Time: 09:23 [facility] 07/15 09:21 Order name: Cardiac monitoring; Complete Time: 09:36 [facility] 07/15 09:21 Order name: EKG - Nurse/Tech; Complete Time: 09:36 07/15 09:21 Order name: IV Saline Lock; Complete Time: 09:36 [facility] 07/15 09:21 Order name: Labs collected and sent; Complete Time: 09:36 07/15 09:21 Order name: O2 Per Protocol; Complete Time: 09:36 07/15 09:21 Order name: O2 Sat Monitoring; Complete Time: 09:36 [facility] 07/15 09:21 Order name: Accucheck; Complete Time: 09:36 ashish 07/15 09:21 Order name: IV Saline Lock - Large Bore; Complete Time: 09:36 ashish 07/15 09:21 Order name: Urine Dipstick-Ancillary (obtain specimen); Complete Time: 11:51 [facility] 07/15 09:58 Order name: Thapa; Complete Time: 10:52 tw2 07/15 13:08 Order name: CONS Physician Consult EDMS EC:45 Rate is 141 beats/min. Rhythm is irregularly irregular. QRS [place] is Normal. OR interval ashish is normal. QRS interval is normal. QT interval is normal. No Q waves. T waves are Normal. No ST changes noted. Clinical impression: Atrial Fibrillation and No evidence of ischemia. Interpreted by me. Reviewed by me. Administered Medications: 09:40 Drug: NS 0.9% (30 ml/kg) 30 ml/kg Route: IV; Rate: bolus; Site: left upper arm; tw2 12:01 Follow up: Response: No adverse reaction; IV Status: Completed infusion; IV Intake: tw2 2000ml 11:20 Drug: Cefepime 1 grams Route: IVPB; Rate: 200 ml/hr; Infused Over: 30 mins; Site: left [facility] upper arm; 11:55 Follow up: Response: No adverse reaction; IV Status: Completed infusion; IV Intake: tw2 100ml 11:40 Drug: Lopressor (metoprolol) 5 mg {Note: HR143, bp 133/93.} Route: IVP; Site: left [facility] upper arm; 12:30 Follow up: Response: No adverse reaction; Other; Other - HR decreased tw2 11:40 Drug: Lopressor (metoprolol TARTRATE) 50 mg Route: PO; tw2 12:30 Follow up: Response: No adverse reaction; Other; Other, HR; Other, HR decreased tw2 11:40 Drug: Pepcid (famotidine) 20 mg Route: IVP; Site: left upper arm; tw2 11:59 Follow up: Response: No adverse reaction tw2 11:40 Drug: Tylenol 650 mg Route: PO; tw2 13:31 Follow up: Response: No adverse reaction; Temperature is decreased tw2 11:50 Drug: Lovenox (enoxaparin) 1 mg/kg {Note: 100 mg given.} Route: Sub-Q; Site: left lower tw2 abdomen; 12:00 Follow up: Response: No adverse reaction tw2 11:59 Drug: levofloxacin 500 mg Volume: 100 ml; Route: IVPB; Infused Over: 60 mins; Site: tw2 left upper arm; 13:00 Follow up: Response: No adverse reaction; IV Status: Completed infusion; IV Intake: tw2 100ml Disposition Summary: 07/15/21 10:48 Hospitalization Ordered Hospitalization Status: Inpatient Admission ashish Provider: Osmar Ladd cha Location: Telemetry/MedSurg (Inpatient) ashish Condition: Fair ashish Problem: new ashish Symptoms: have improved ashish Bed/Room Type: Standard ashish Room Assignment: 429(07/15/21 13:44) bd Diagnosis - UTI/ Urinary tract infection, site not specified ashish - Obesity, unspecified ashish - Paroxysmal atrial fibrillation - with RVR ashish - Fever, unspecified ashish Forms: - Medication Reconciliation Form ashish - SBAR form ashish Signatures: Dispatcher [employer] EDMS Idalmis Pearce Corey, MD MD cha Wise, Tara RN RN tw2 Corrections: (The following items were deleted from the chart) 10:48 09:57 CORONAVIRUS+MR.LAB.BRZ ordered. EDMS EDMS 13:44 10:48 ashish bd
--- NOTE | 2021-07-15 10:49 | ER ---
Nurse's Notes [facility] Name: Rocio Quiroz Age: 76 yrs Sex: Female : 1945 Arrival Date: 07/15/2021 Time: 09:17 Bed 8 Private MD: Diagnosis: UTI/ Urinary tract infection, site not specified;Obesity, unspecified;Paroxysmal atrial fibrillation-with RVR;Fever, unspecified Presentation: 07/15 09:19 Chief complaint: EMS states: pt from [facility]. staff states she has a tw2 fever and possible UTI with altered mental status. Coronavirus screen: At this time, the client does not indicate any symptoms associated with coronavirus-19. Ebola Screen: Patient denies travel to an Ebola-affected area in the 21 days before illness onset. Initial Sepsis Screen: Does the patient meet any 2 criteria? HR > 90 bpm. Does the patient have a suspected source of infection? Yes: Dysuria/Frequency/Urgency/UTI. Risk Assessment: Do you want to hurt yourself or someone else? Patient reports no desire to harm self or others. Onset of symptoms was July 15, 2021. 09:19 Method Of Arrival: EMS: [facility] tw 09:19 Acuity: LINDSEY 2 tw2 Triage Assessment: 09:19 General: Appears uncomfortable, obese, unkempt, Behavior is appropriate for age. Pain: tw2 Denies pain. Neuro: Level of Consciousness is awake, alert, obeys commands. Historical: - Allergies: 09:25 Aspirin; tw2 09:25 Demerol; tw2 09:25 Haldol; tw2 09:25 Ibuprofen; tw2 09:25 Iodine; tw2 09:25 IV contrast; tw2 09:25 Latex, Natural Rubber; tw2 09:25 Morphine; tw2 09:25 PENICILLINS; tw2 - PMHx: 09:25 Anemia; Atrial Fib; Cerebral infarction; Sleep Apnea; vitamin d deficiency; tw2 - Immunization history:: Adult Immunizations. - Social history:: Smoking status: . Screenin: Abuse screen: Denies threats or abuse. Nutritional screening: No deficits noted. tw2 Tuberculosis screening: No symptoms or risk factors identified. Fall Risk Fall in past 12 months (25 points). Secondary diagnosis (15 points) impaired mobility. Assessment: 10:31 Reassessment: provider at bedside at this time. tw2 11:00 Reassessment: pt moved to CT via stretcher at this time. tw2 12:01 Reassessment: Patient appears in no apparent distress at this time. Patient and/or tw2 family updated on plan of care and expected duration. Pain level reassessed. 13:27 Reassessment: Patient appears in no apparent distress at this time. Patient and/or tw2 family updated on plan of care and expected duration. Pain level reassessed. 14:48 Reassessment: Patient appears in no apparent distress at this time. Patient and/or tw2 family updated on plan of care and expected duration. Pain level reassessed. Vital Signs: 09:19 BP 120 / 79; Pulse 146; Resp 15; Temp 100.3; Weight 158.76 kg (R); tw2 10:26 BP 136 / 94; Pulse 120; Resp 22; Pulse Ox 98% on R/A; tw2 11:40 BP 133 / 93; Pulse 143; Resp 22; Pulse Ox 94% on R/A; tw2 12:00 BP 106 / 69; Pulse 114; Resp 22; Pulse Ox 95% on R/A; tw2 12:28 BP 116 / 78; Pulse 95; Resp 22; Pulse Ox 95% on R/A; tw2 12:59 Temp 99.5(O); tw2 13:27 BP 119 / 56; Pulse 89; Resp 20; Pulse Ox 95% on R/A; tw2 ED Course: 09:17 Patient arrived in ED. tw2 09:17 Bed in low position. Call light in reach. Side rails up X2. patient monitor on. Pulse tw2 ox on. NIBP on. 09:19 Tayo Rosa MD is Attending Physician. ashish 09:20 Inserted saline lock: 20 gauge in left upper arm, using aseptic technique. ,using tw2 aseptic technique. by CICI Dudley Blood collected. 09:25 Triage completed. tw2 09:25 Arm band placed on. tw2 09:31 Trish Flores RN is Primary Nurse. tw2 09:52 XRAY Chest (1 view) In Process Unspecified. EDMS 10:47 Osmar Ladd MD is Hospitalizing Provider. ashish 10:53 Thapa cath inserted, using sterile technique, 18 Fr., by desktop publishing associate, balloon inflated, to tw2 gravity drainage, urine specimen collected. other by KJ, Tech. 11:30 CT Head Brain wo Cont In Process Unspecified. EDMS 11:30 CT Stone Protocol In Process Unspecified. EDMS 14:09 Awaiting: attempted to call report at this time. unsuccessful attempt. tw2 14:47 No provider procedures requiring assistance completed. tw2 14:48 Patient admitted, IV remains in place. tw2 Administered Medications: 09:40 Drug: NS 0.9% (30 ml/kg) 30 ml/kg Route: IV; Rate: bolus; Site: left upper arm; tw2 12:01 Follow up: Response: No adverse reaction; IV Status: Completed infusion; IV Intake: tw2 2000ml 11:20 Drug: Cefepime 1 grams Route: IVPB; Rate: 200 ml/hr; Infused Over: 30 mins; Site: left tw2 upper arm; 11:55 Follow up: Response: No adverse reaction; IV Status: Completed infusion; IV Intake: tw2 100ml 11:40 Drug: Lopressor (metoprolol) 5 mg {Note: HR143, bp 133/93.} Route: IVP; Site: left tw2 upper arm; 12:30 Follow up: Response: No adverse reaction; Other; Other - HR decreased tw2 11:40 Drug: Lopressor (metoprolol TARTRATE) 50 mg Route: PO; tw2 12:30 Follow up: Response: No adverse reaction; Other; Other, HR; Other, HR decreased tw2 11:40 Drug: Pepcid (famotidine) 20 mg Route: IVP; Site: left upper arm; tw2 11:59 Follow up: Response: No adverse reaction tw2 11:40 Drug: Tylenol 650 mg Route: PO; tw2 13:31 Follow up: Response: No adverse reaction; Temperature is decreased tw2 11:50 Drug: Lovenox (enoxaparin) 1 mg/kg {Note: 100 mg given.} Route: Sub-Q; Site: left lower tw2 abdomen; 12:00 Follow up: Response: No adverse reaction tw2 11:59 Drug: levofloxacin 500 mg Volume: 100 ml; Route: IVPB; Infused Over: 60 mins; Site: tw2 left upper arm; 13:00 Follow up: Response: No adverse reaction; IV Status: Completed infusion; IV Intake: tw2 100ml Intake: 11:55 IV: 100ml; Total: 100ml. tw2 12:01 IV: 2000ml; Total: 2100ml. tw2 13:00 IV: 100ml; Total: 2200ml. tw2 Outcome: 10:48 Decision to Hospitalize by Provider. ashish 14:47 Admitted to Med/surg accompanied by tech, via stretcher, with chart, Report called to tw2 CICI Fernandez 14:47 Condition: stable 14:47 Instructed on the need for admit. 14:48 Patient left the ED. tw2 Signatures: Dispatcher [employer] EDIN Tayo Rosa MD MD cha Wise, Tara RN RN tw2 Corrections: (The following items were deleted from the chart) 11:50 11:50 Lovenox (enoxaparin) 1 mg/kg Sub-Q in left lower abdomen tw2 tw2
--- NOTE | 2021-07-15 11:39 | RAD REPORT ---
EXAM DESCRIPTION: CT - Head Brain Wo Cont - 07/15/2021 11:30 am CLINICAL HISTORY: MENTAL STATUS CHANGE COMPARISON: Head Brain Wo Cont dated 04/24/2018; Head Brain Wo Cont dated 01/31/2018 TECHNIQUE: All CT scans are performed using dose optimization technique as appropriate and may inclu de automated exposure control or mA/KV adjustment according to patient size. FINDINGS: No intracranial hemorrhage, hydrocephalus or extra-axial fluid collection. Encephalomalaci a in the right frontal and temporal lobe including in the basal ganglia is again noted. Increased whi te matter hypoattenuation in the frontal lobe compared with prior. This is favored chronic. Cerebral atrophy. The paranasal sinuses and mastoids are clear. The calvarium is intact. IMPRESSION: No acute intracranial abnormality. Remote right MCA territory infarct.
[2021-07-15] MEDS ORDERED: METOPROLOL TAR 50 MG TAB ONE (11:52)
[2021-07-15] MEDS ORDERED: ACETAMINOPHEN 325 MG TABLET ONE (11:53)
[2021-07-15] MEDS ORDERED: ENOXAPARIN 100 MG/ML SYR SQ ONE (11:53)
[2021-07-15] MEDS ORDERED: Levofloxacin500mg IV 500 MG/100 ML BAG IV ONE (11:53)
[2021-07-15] MEDS ORDERED: METOPROLOL TARTRATE 5 MG/5 ML INJ IV ONE (11:53)
[2021-07-15] MEDS ORDERED: FAMOTIDINE 20 MG/2 ML VIAL IV ONE (11:56)
[2021-07-15 12:03] LABS: Urine Bacteria >50 /HPF (<20)
--- NOTE | 2021-07-15 12:10 | RAD REPORT ---
[facility] DESCRIPTION[facility] - [facility] 12:03 pm CLINICAL HISTORY: FEVER COMPARISON: CT ABDOMEN PELVIS WO CONTRAST dated 01/13/2014; CT ABDOMEN PELVIS WO CONTRAST dated 003 TECHNIQUE: CT of the abdomen and pelvis was performed. All CT scans are performed using dose optimization technique as appropriate and may include automated exposure control or mA/KV adjustment according to patient size. FINDINGS: Lower chest: No acute abnormality. Liver: No acute abnormality or suspicious lesions. Biliary: No biliary ductal dilatation. Stomach: No significant focal abnormality. Duodenum: No significant focal abnormality. Pancreas: No significant abnormality. Spleen: No significant abnormality. Adrenal: No suspicious lesions. Kidney/ureter: No hydronephrosis. No renal calculi. Low-density left renal lesion which is incomplete ly characterized but statistically a cyst. Retroperitoneum: No retroperitoneal adenopathy. Vascular: No aneurysm. Bowel: No significant focal abnormality. Moderate stool in the rectum. Peritoneum: No ascites or free air. Bladder: Thapa catheter with decompressed bladder. Reproductive: No adnexal masses. Hysterectomy. Bones: No acute fracture. Multilevel degenerative changes are present in the spine. Other: n/a IMPRESSION: No acute intra-abdominal or pelvic finding.
--- NOTE | 2021-07-15 13:10 | P.HP ---
Certification for Inpatient Patient admitted to: Inpatient With expected LOS: >2 Midnights Practitioner: I am a practitioner with admitting privileges, knowledge of patient current condition, hospital course, and medical plan of care. Services: Services provided to patient in accordance with Admission requirements found in Title 42 Section 412.3 of the Code of Federal Regulations Patient History Date of Service: 07/15/21 Reason for admission: UTI History of Present Illness: 76-year-old female, senior living patient, with multiple comorbidities, bedbound, urinary incontinence was brought to the ED due to worsening dysuria and suprapubic pain secondary to urinary tract infection. Patient states she has been having similar symptoms intermittently over the last several months. The symptoms have been worse over the last 2-3 days. Urine culture was obtained 2 days ago, and was positive for multiple bacteria. She was treated with doxycycline, had no improvement so was sent to the ER. In the ED, she was noted to be febrile, leukocytosis, UA grossly positive for bacteria. She did not appear septic. Her baseline is AO x3 with some mild intermittent confusion. She was able to give a good history. Patient is admitted for further treatment of this multiorganism, multi resistant urinary tract infection. Patient was also found to be in A. fib with RVR, improved with Lopressor. Allergies iodine Allergy (Verified 12/22/16 01:47) Hives/Rash latex Allergy (Verified 12/22/16 01:47) Hives/Rash Latex, Natural Rubber Allergy (Verified 02/01/18 20:29) Itching/Hives/Rash morphine Allergy (Verified 12/22/16 01:47) Hives Penicillins Allergy (Verified 12/22/16 01:47) Hives/Rash haloperidol [From Haldol] Adverse Reaction (Verified 12/22/16 01:47) anxiety haloperidol lactate [From Haldol] Adverse Reaction (Verified 12/22/16 01:47) anxiety Home Medications: Duloxetine HCl [Cymbalta] 1 cap PO DAILY 01/13/14 carvediloL [Coreg*] 25 mg PO BID 01/13/14 Montelukast Sodium 10 mg PO BEDTIME 12/22/16 Atorvastatin Calcium [Lipitor] 1 tab PO BEDTIME 02/01/18 Clopidogrel Bisulfate [Plavix*] 75 mg PO DAILY 02/01/18 Cyanocobalamin (Vitamin B-12) [Vitamin B-12] 1,000 mcg PO DAILY 02/01/18 Furosemide 1 tab PO DAILY 02/01/18 Hydrocodone Bit/Acetaminophen [Hydrocodon-Acetaminophn 10-325] 1 tab PO Q6H PRN 02/01/18 Melatonin 3 mg PO BEDTIME 02/01/18 traMADol HCL [Ultram*] 50 mg PO Q6H PRN #30 tab MDD 4 02/02/18 Acetaminophen 2 tab PO Q6HP PRN 03/24/18 Cefdinir [Omnicef] 300 mg PO BID #14 capsule 03/24/18 L. Acidophilus/Pectin, Coryell [Acidophilus Capsule] 1 cap PO DAILY 03/24/18 Nitroglycerin [Nitrostat*] 0.4 mg SL SEECOM 03/24/18 Nystatin Powder [Mycostatin (Powder)*] 1 markie TOP BID 03/24/18 Omeprazole 20 mg PO DAILY 03/24/18 Polyethylene Glycol 3350 [Miralax] 17 gm PO PRN PRN 03/24/18 - Past Medical/Surgical History Diabetic: No -: Hypertension -: COPD -: CHF -: Atrial fibrillation -: Depression with anxiety -: Morbid obesity -: Obstructive sleep apnea -: Lymphedema -: Hysterectomy -: Appendectomy -: Right knee replacement -: Left knee replacement Psychosocial/ Personal History: She is of 55 years, has 2 children, she does not work. She gets around in a wheelchair. - Family History Family History: Reviewed- Non-Contributory (Patient is unsure of family history) - Family History Mother Notes: alzheimers - Social History Smoking Status: Never smoker Alcohol use: No CD- Drugs: No Caffeine use: No Place of Residence: [facility] Review of Systems 10-point ROS is otherwise unremarkable Physical Examination - Physical Exam General: Alert, Oriented x3, Mild distress HEENT: Mucous membr. moist/pink, Sclerae nonicteric Respiratory: Diminished, Expiratory wheezes (mild), Other (nonlabored on room air) Cardiovascular: Edema (2+ LLE (foot/ankle), 1+ RLE) Gastrointestinal: Soft and benign, Non-distended, Tenderness (suprapubic) Musculoskeletal: No swelling, No erythema Integumentary: No rashes Neurological: Normal speech, Normal affect - Studies Laboratory Data (last 24 hrs) 07/15/21 09:40: PT 14.0 H, INR 1.21, APTT 27.5 07/15/21 09:40: WBC 11.10 H, Hgb 9.2 L, Hct 28.6 L, Plt Count 182 07/15/21 09:40: Sodium 134 L, Potassium 4.4, BUN 14, Creatinine 0.85, Glucose 124 H, Magnesium 1.9, Total Bilirubin 0.5, AST 14 L, ALT 14, Alkaline Phosphatase 165 H, Amylase 14 L, Lipase 18 L Assessment and Plan - Advance Directives Does patient have a Living Will: Yes Does patient have a Durable POA for Healthcare: Yes Physician Review Additional Text: Problem List UTI, acute cystitis h/o urinary incontinence KEVIN Chronic Pain COPD h/o functional constipation h/o CVA, bed-bound / hemiplegia Depression Obesity Anemia of chronic disease Chronic diastolic - CHF GERD urine culture from senior living growing multiple bacteria, multi resistant, unclear quality of source, start meropenem ID consulted Patient does not appear septic, BP ok minimize IV fluid given h/o CHF, edema on exam obtain/confirm medications from senior living and restart as appropriate. patient states she has been having suprapubic pain, dysuria over the last several days. Thinks some of this has been going on intermittently "for months". f/u blood/urine cultures done in ED VTE: lovenox Code: full Dispo: anticipate dc back to senior living in 2-3 days, pending cultures / improvement Time Spent Managing Pts Care (In Minutes): 60
[2021-07-15 16:55] VITALS: BMI 50.2
[2021-07-15] MEDS: METOPROLOL TAR 25 MG TAB PO SCH (17:06)
[2021-07-15] MEDS: ENOXAPARIN 40 MG/0.4 ML SQ SCH (17:10)
[2021-07-15] MEDS: Meropenem 1 GM/100 ML BAG IV SCH (17:10)
[2021-07-15] MEDS: ACETAMINOPHEN 500 MG TAB PO PRN (22:05)
[2021-07-16] MEDS: Meropenem 1 GM/100 ML BAG IV SCH ×3 (02:15→16:57)
[2021-07-16 05:06] LABS: Absolute Lymphocytes (CBC) 1.5 K/uL (0.7-4.9); Basophils % 0.3 % (0-1.3); Lymphocytes % 19.8 % (15.3-44.8); MPV 7.2 fL (7.6-11.3); RBC Red Blood Cell Count 3.42 M/uL (3.86-4.86)
[2021-07-16] MEDS: METOPROLOL TAR 25 MG TAB PO SCH ×2 (06:00→16:54)
[2021-07-16 06:19] LABS: Bilirubin Total 0.3 mg/dL (0.2-1.0); Magnesium 1.9 mg/dL (1.8-2.4); Potassium 3.7 mmol/L (3.5-5.1); Protein, Total 6.1 g/dL (6.4-8.2)
[2021-07-16] MEDS: ENOXAPARIN 40 MG/0.4 ML SQ SCH (08:15)
[2021-07-16] MEDS ORDERED: POTASSIUM CL SA 10 MEQ TAB PO ONE (09:00)
[2021-07-16] MEDS: ACETAMINOPHEN 500 MG TAB PO PRN ×2 (09:43→14:11)
--- NOTE | 2021-07-16 11:53 | P.CNS ---
Date of Consult: 07/16/21 Chief Complaint: UTI History of Present Illness: Patient is a 76-year-old female who has an extensive past medical history who presented from her [facility] due to worsening dysuria and suprapubic pain. Of note patient is a bed-bound with urinary incontinence. Patient states that she has had similar symptoms intermittently up to the past few months. A urine culture was taken from the [facility] with grew many different highly resistant bacteria including Acinetobacter, E coli, strep, and Enterococcus. Patient was placed on doxycycline with no improvement of symptoms. In the ED she is noted to be febrile with leukocytosis with UA grossly positive for bacteria. Blood cultures taken on 07/15 grew gram-positive cocci in 2/4 bottles. Patient empirically started on meropenem and vancomycin. Patient currently denies nausea/vomiting/diarrhea/shortness of breathe/chest pain. She states that her urinary symptoms have resolved. Allergies iodine Allergy (Verified 12/22/16 01:47) Hives/Rash latex Allergy (Verified 12/22/16 01:47) Hives/Rash Latex, Natural Rubber Allergy (Verified 02/01/18 20:29) Itching/Hives/Rash morphine Allergy (Verified 12/22/16 01:47) Hives Penicillins Allergy (Verified 12/22/16 01:47) Hives/Rash haloperidol [From Haldol] Adverse Reaction (Verified 12/22/16 01:47) anxiety haloperidol lactate [From Haldol] Adverse Reaction (Verified 12/22/16 01:47) anxiety Home Medications: Duloxetine HCl [Cymbalta] 2 cap PO DAILY 01/13/14 Montelukast Sodium 10 mg PO BEDTIME 12/22/16 Atorvastatin Calcium [Lipitor] 1 tab PO BEDTIME 02/01/18 Clopidogrel Bisulfate [Plavix*] 75 mg PO DAILY 02/01/18 Cyanocobalamin (Vitamin B-12) [Vitamin B-12] 2 tab PO DAILY 02/01/18 Hydrocodone Bit/Acetaminophen [Hydrocodon-Acetaminophn 10-325] 1 tab PO Q6H PRN 02/01/18 Melatonin 1 tab PO BEDTIME 02/01/18 Acetaminophen 2 tab PO Q8HP PRN 03/24/18 L. Acidophilus/Pectin, Emanuel [Acidophilus Capsule] 1 cap PO DAILY 03/24/18 Nystatin Powder [Mycostatin (Powder)*] 1 markie TOP BID 03/24/18 Omeprazole 20 mg PO DAILY 03/24/18 Albuterol Inhaler [Ventolin Inhaler] 2 puff IH Q6H PRN 07/16/21 Benzonatate 200 mg PO Q8H 07/16/21 Bisacodyl [Gentle Laxative] 10 mg RC DAILY PRN 07/16/21 Bupropion HCl [Wellbutrin] 75 mg PO DAILY 07/16/21 Ciprofloxacin /Dexameth Otic [Ciprodex Otic Suspension] 1 drops OTIC DAILY PRN 07/16/21 Cranberry Fruit Extract [Cranberry] 425 mg PO BID 07/16/21 Diclofenac Sodium [Voltaren Arthritis Pain] 20 gm TP DAILY PRN 07/16/21 Docusate [Colace Cap] 100 mg PO BID 07/16/21 Ergocalciferol (Vitamin D2) [Vitamin D2] 50,000 unit PO DAILY 07/16/21 LORazepam [Ativan] 0.5 mg PO BID PRN 07/16/21 Mag Hydroxide 8% [Milk Of Magnesia] 30 ml PO DAILY PRN 07/16/21 Metoprolol Tartrate [Lopressor] 12.5 mg PO BID 07/16/21 Ondansetron [Zofran] 4 mg PO Q6H PRN 07/16/21 Quetiapine Fumarate [Seroquel] 25 mg PO BEDTIME 07/16/21 - Past Medical/Surgical History Diabetic: No -: Hypertension -: COPD -: CHF -: Atrial fibrillation -: Depression with anxiety -: Morbid obesity -: Obstructive sleep apnea -: Lymphedema -: Hysterectomy -: Appendectomy -: Right knee replacement -: Left knee replacement Psychosocial/ Personal History: She is of 55 years, has 2 children, she does not work. She gets around in a wheelchair. - Family History Mother Notes: alzheimers - Social History Smoking Status: Unknown if ever smoked Alcohol use: No CD- Drugs: No Caffeine use: No Place of Residence: [facility] Review of Systems 10-point ROS is otherwise unremarkable Physical Examination Temp Pulse Resp BP Pulse Ox 96.1 F L 93 H 18 117/63 96 07/16/21 08:00 07/16/21 08:00 07/16/21 08:00 07/16/21 08:00 07/16/21 08:00 General: In no apparent distress, Obese HEENT: Atraumatic, Normocephalic Neck: Supple, 2+ carotid pulse no bruit Respiratory: Clear to auscultation bilaterally, Normal air movement Cardiovascular: No edema, Regular rate/rhythm Capillary refill: <2 Seconds Gastrointestinal: Normal bowel sounds, Soft and benign Musculoskeletal: No clubbing, No swelling Integumentary: No rashes, No breakdown, No tenderness/swelling Urinary: Thapa catheter Conclusions/Impression: Antibiotics Meropenem Start: 07/15 Stop:-- Indication: UTI Vancomycin Start: 07/16 Stop:-- Indication: Gram-positive bacteremia Assessment/plan Polymicrobial multi-drug resistant urinary tract infection Urine culture obtained from [facility] grew multiple resistant bacteria. Urine culture performed at this facility showed no growth. Continue meropenem for 5-7 day course. Bacteremia Blood cultures performed on 07/15 growing gram-positive cocci in clusters in 2/4 bottles. Continue vancomycin at this time, repeat blood cultures in 48 hr. Medical management per primary team Continue monitor CBC and BMP Today to monitor for signs of infection Plan of care discussed with Dr. Dasilva Thank you for consultation
[2021-07-16] MEDS ORDERED: VANCOMYCIN 1.25 GM in NA CHLORIDE 0.9% 250 ML IVPB SCH (12:00)
[2021-07-16] MEDS: VANCOMYCIN 2 GM in NA CHLORIDE 0.9% 500 ML IVPB SCH (14:11)
[2021-07-16] MEDS ORDERED: ALBUTEROL INHALER 60 PUFF/8 GM IH PRN (16:07)
[2021-07-16] MEDS ORDERED: BISACODYL 10 MG RECTAL SUPP PR PRN (16:07)
--- NOTE | 2021-07-16 16:07 | P.PN ---
Date of Service: 07/16/21 Subjective: Feels better today, more energy, improvement in her suprapubic pain/dysuria No new complaints ROS: 10 point ROS as noted above, otherwise negative Physical Exam General: Alert, Oriented x3, NAD HEENT: Mucous membr. moist/pink, Sclerae nonicteric Respiratory: Diminished, nonnlabored respirations Cardiovascular: 1+ b/l pedal edema Gastrointestinal: Soft and benign, Non-distended, nontender Musculoskeletal: No swelling, No erythema Neurological: Normal speech, Normal affect Problem List UTI, acute cystitis h/o urinary incontinence KEVIN Chronic Pain COPD h/o functional constipation h/o CVA, bed-bound / hemiplegia Depression Obesity Anemia of chronic disease Chronic diastolic - CHF GERD urine culture from [facility] growing multiple bacteria, multi resistant, unclear quality of source, started meropenem ID consulted vanc added this morning, blood culture with gram positive cocci Patient does not appear septic, BP ok minimize IV fluid given h/o CHF, edema on exam obtain/confirm medications from [facility] and restart as appropriate. patient states she has been having suprapubic pain, dysuria over the last several days. Thinks some of this has been going on intermittently "for months". improving f/u blood/urine cultures done in ED VTE: lovenox Code: full Dispo: anticipate dc back to [facility] in 1-2 days, pending cultures / improvement Time Spent Managing Pts Care (In Minutes): 35
[2021-07-16] MEDS: MONTELUKAST 10 MG TAB PO SCH (20:07)
[2021-07-16] MEDS: QUETIAPINE 25 MG TAB PO SCH (20:07)
[2021-07-16] MEDS: MELATONIN 3 MG TABLET PO SCH (20:07)
[2021-07-16] MEDS: ATORVASTATIN 80 MG TAB PO SCH (20:07)
[2021-07-16] MEDS: DOCUSATE NA 100 MG CAP PO SCH (20:08)
[2021-07-16] MEDS: NYSTATIN PWDR 100000 UNIT/GM TOP SCH (20:08)
[2021-07-17] MEDS: Meropenem 1 GM/100 ML BAG IV SCH ×3 (00:39→18:32)
[2021-07-17] MEDS: ACETAMINOPHEN 500 MG TAB PO PRN (04:19)
[2021-07-17 05:34] LABS: Absolute Lymphocytes (CBC) 1.2 K/uL (0.7-4.9); Basophils % 0.8 % (0-1.3); Hematocrit 25.8 % (36.0-45.0); Lymphocytes % 23.6 % (15.3-44.8); RBC Red Blood Cell Count 3.05 M/uL (3.86-4.86)
[2021-07-17 05:58] LABS: BUN Blood Urea Nitrogen 10 mg/dL (7-18); Bicarbonate 28 mmol/L (21-32); Glucose Level 110 mg/dL (74-106); Magnesium 2.1 mg/dL (1.8-2.4); Potassium 3.9 mmol/L (3.5-5.1); Sodium Level 141 mmol/L (136-145)
[2021-07-17] MEDS: VANCOMYCIN 2 GM in NA CHLORIDE 0.9% 500 ML IVPB SCH (06:00)
--- NOTE | 2021-07-17 06:27 | P.PN ---
Date of Service: 07/17/21 Subjective: Overall feeling better, complaining of a bad smell this morning. Headache yesterday Otherwise minimal to no dysuria Heart rate much better controlled ROS: 10 point ROS as noted above, otherwise negative Physical Exam General: Alert, Oriented x3, NAD HEENT: Mucous membr. moist/pink, Sclerae nonicteric Respiratory: Diminished, nonnlabored respirations Cardiovascular: 1+ b/l pedal edema, irregularly irregular rhythm Gastrointestinal: Soft and benign, Non-distended, nontender Musculoskeletal: No swelling, No erythema Neurological: Normal speech, Normal affect Problem List UTI, acute cystitis h/o urinary incontinence Chronic atrial fibrillation, with RVR on admission KEVIN Chronic Pain COPD h/o functional constipation h/o CVA, bed-bound / hemiplegia Depression Obesity Anemia of chronic disease Chronic diastolic - CHF GERD urine culture from [facility] growing multiple bacteria, multi resistant, unclear quality of source, started meropenem ID consulted Vanco added on 07/16 due to 07/15 blood culture gram-positive cocci Patient remains afebrile, urine culture no growth Repeat blood culture 07/17 Overall patient clinically seems to be improving, doing well Will need minimum 5 days of meropenem IV per ID recommendations Patient may be able to get a midline placed and be discharged back to [facility] in the next 1-2 days Pending blood cultures. CRP much improved minimize IV fluid given h/o CHF, edema on exam VTE: lovenox Code: full Dispo: anticipate dc back to [facility] in 1-2 days, pending blood cultures / improvement Time Spent Managing Pts Care (In Minutes): 35
[2021-07-17] MEDS: METOPROLOL TAR 25 MG TAB PO SCH ×2 (06:40→18:32)
[2021-07-17] MEDS: HYDROCODONE/APAP 10/325 TAB PO PRN ×4 (06:40→18:38)
[2021-07-17] MEDS ORDERED: HOME MED 1 EA UNK (Duloxetine Hcl [Cymbalta] 60 MG Capsule.Dr) PO SCH (09:00)
[2021-07-17] MEDS ORDERED: HOME MED 1 EA UNK (Omeprazole [Omeprazole] 20 MG Capsule.Dr) PO SCH (09:00)
[2021-07-17] MEDS ORDERED: HOME MED 1 EA UNK (Bupropion Hcl [Wellbutrin] 75 MG Tablet) PO SCH (09:00)
[2021-07-17] MEDS: NYSTATIN PWDR 100000 UNIT/GM TOP SCH ×2 (09:00→21:00)
[2021-07-17] MEDS: DULOXETINE 30 MG CAP PO SCH ×2 (09:33→09:34)
[2021-07-17] MEDS: buPROPion HCL 100 MG TAB PO SCH (09:33)
[2021-07-17] MEDS: CLOPIDOGREL 75 MG TABLET PO SCH (09:34)
[2021-07-17] MEDS: PANTOPRAZOLE 40MG TABLET PO SCH (09:34)
[2021-07-17] MEDS: DOCUSATE NA 100 MG CAP PO SCH ×2 (09:34→20:59)
[2021-07-17] MEDS: ENOXAPARIN 40 MG/0.4 ML SQ SCH (09:34)
[2021-07-17] MEDS: MELATONIN 3 MG TABLET PO SCH (20:57)
[2021-07-17] MEDS: MONTELUKAST 10 MG TAB PO SCH (20:57)
[2021-07-17] MEDS: ATORVASTATIN 80 MG TAB PO SCH (20:57)
[2021-07-17] MEDS: QUETIAPINE 25 MG TAB PO SCH (20:57)
[2021-07-18] MEDS: HYDROCODONE/APAP 10/325 TAB PO PRN ×3 (01:06→14:33)
[2021-07-18] MEDS: Meropenem 1 GM/100 ML BAG IV SCH ×3 (01:06→17:00)
[2021-07-18] MEDS: VANCOMYCIN 2 GM in NA CHLORIDE 0.9% 500 ML IVPB SCH (01:45)
--- NOTE | 2021-07-18 06:01 | P.PN ---
Date of Service: 07/18/21 Subjective: Feeling much better, close to her baseline Denies dysuria, denies suprapubic pain No nausea/vomiting Feels like she is near ready to get back to the long term No new complaints ROS: 10 point ROS as noted above, otherwise negative Physical Exam General: Alert, Oriented x3, NAD HEENT: Mucous membr. moist/pink, Sclerae nonicteric Respiratory: Diminished, nonnlabored respirations Cardiovascular: 1+ b/l pedal edema, irregularly irregular rhythm Gastrointestinal: Soft and benign, Non-distended, nontender Musculoskeletal: No swelling, No erythema Neurological: Normal speech, Normal affect Problem List UTI, acute cystitis h/o urinary incontinence Chronic atrial fibrillation, with RVR on admission KEVIN Chronic Pain COPD h/o functional constipation h/o CVA, bed-bound / hemiplegia Depression Obesity Anemia of chronic disease Chronic diastolic - CHF GERD urine culture from long term growing multiple bacteria, multi resistant, unclear quality of source, started meropenem ID consulted Vanc added on 07/16 due to 07/15 blood culture gram-positive cocci -possible contamination, repeat blood culture on 07/17 pending Patient remains afebrile, urine culture no growth -possibly from recent antibiotic usage Overall patient clinically seems to be improving, doing well Will need minimum 5 days of meropenem IV per ID recommendations Patient may be able to get a midline placed and be discharged back to [facility] term in the next 1-2 days CRP much improved minimize IV fluid given h/o CHF, edema on exam VTE: lovenox Code: full Dispo: anticipate dc back to long term in 1-2 days, pending blood cultures / improvement Time Spent Managing Pts Care (In Minutes): 35
[2021-07-18] MEDS: METOPROLOL TAR 25 MG TAB PO SCH ×2 (06:02→16:26)
[2021-07-18 06:12] LABS: MPV 6.5 fL (7.6-11.3); RBC Red Blood Cell Count 3.19 M/uL (3.86-4.86)
[2021-07-18 06:15] LABS: BUN Blood Urea Nitrogen 8 mg/dL (7-18); Bicarbonate 26 mmol/L (21-32); Glucose Level 108 mg/dL (74-106); Sodium Level 143 mmol/L (136-145)
[2021-07-18] MEDS: PANTOPRAZOLE 40MG TABLET PO SCH (08:17)
[2021-07-18] MEDS: buPROPion HCL 100 MG TAB PO SCH (08:17)
[2021-07-18] MEDS: DULOXETINE 30 MG CAP PO SCH (08:17)
[2021-07-18] MEDS: DOCUSATE NA 100 MG CAP PO SCH ×2 (08:17→20:03)
[2021-07-18] MEDS: CLOPIDOGREL 75 MG TABLET PO SCH (08:17)
[2021-07-18] MEDS: ENOXAPARIN 40 MG/0.4 ML SQ SCH (08:17)
[2021-07-18] MEDS: NYSTATIN PWDR 100000 UNIT/GM TOP SCH ×2 (08:30→20:08)
[2021-07-18] MEDS ORDERED: FUROSEMIDE 20 MG/ 2ML VIAL IV ONE (15:01)
[2021-07-18] MEDS: LORAZEPAM 0.5 MG TABLET PO PRN (16:27)
[2021-07-18] MEDS: ACETAMINOPHEN 500 MG TAB PO PRN (19:45)
[2021-07-18 20:02] VITALS: O2SAT 97
[2021-07-18] MEDS: ATORVASTATIN 80 MG TAB PO SCH (20:03)
[2021-07-18] MEDS: MELATONIN 3 MG TABLET PO SCH (20:04)
[2021-07-18] MEDS: MONTELUKAST 10 MG TAB PO SCH (20:04)
[2021-07-18] MEDS: QUETIAPINE 25 MG TAB PO SCH (20:20)
[2021-07-19] MEDS: Meropenem 1 GM/100 ML BAG IV SCH (00:43)
[2021-07-19] MEDS: HYDROCODONE/APAP 10/325 TAB PO PRN ×2 (01:56→08:00)
[2021-07-19 05:17] LABS: MPV 6.2 fL (7.6-11.3); RBC Red Blood Cell Count 3.41 M/uL (3.86-4.86)
[2021-07-19 05:44] LABS: C-Reactive Protein 23.7 mg/L (<3.00); Potassium 3.9 mmol/L (3.5-5.1)
[2021-07-19] MEDS: METOPROLOL TAR 25 MG TAB PO SCH (05:54)
[2021-07-19] MEDS: LORAZEPAM 0.5 MG TABLET PO PRN (05:55)
[2021-07-19] MEDS: buPROPion HCL 100 MG TAB PO SCH (08:00)
[2021-07-19] MEDS: DULOXETINE 30 MG CAP PO SCH (08:00)
[2021-07-19] MEDS: PANTOPRAZOLE 40MG TABLET PO SCH (08:00)
[2021-07-19] MEDS: DOCUSATE NA 100 MG CAP PO SCH (08:00)
[2021-07-19] MEDS: CLOPIDOGREL 75 MG TABLET PO SCH (08:01)
[2021-07-19] MEDS: ENOXAPARIN 40 MG/0.4 ML SQ SCH (08:01)
[2021-07-19] MEDS: NYSTATIN PWDR 100000 UNIT/GM TOP SCH (08:02)
[2021-07-19 08:19] VITALS: TEMP 97.9
[2021-07-19] MEDS ORDERED: VANCOMYCIN 2 GM in NA CHLORIDE 0.9% 500 ML IVPB SCH (09:00)
[2021-07-19] MEDS ORDERED: ONDANSETRON 4 MG (ODT) TAB PO PRN (09:56)
[2021-07-19] MEDS: ACETAMINOPHEN 500 MG TAB PO PRN (11:00)
--- NOTE | 2021-07-19 11:08 | P.PN ---
Subjective Date of Service: 07/19/21 Chief Complaint: UTI Patient seen examined at bedside, doing well no acute complaints. Plan for Dc today. Review of Systems 10-point ROS is otherwise unremarkable Physical Examination - Vital Signs Temperature: 97.9 F Blood Pressure: 173/88 Pulse: 85 Respirations: 20 Pulse Ox (%): 99 - Studies Laboratory Last Values WBC 11.10 K/uL (4.3-10.9) H 07/15/21 09:40 RBC 3.41 M/uL (3.86-4.86) L 07/15/21 09:40 Hgb 9.2 g/dL (12.0-15.0) L 07/15/21 09:40 Hct 28.6 % (36.0-45.0) L 07/15/21 09:40 MCV 84.0 fL (80-100) D 07/15/21 09:40 MCH 27.1 pg (27.0-35.0) 07/15/21 09:40 MCHC 32.2 g/dL (32.0-36.0) 07/15/21 09:40 RDW 17.5 % (12.1-15.2) H 07/15/21 09:40 Plt Count 182 K/uL (152-406) 07/15/21 09:40 MPV 6.7 fL (7.6-11.3) L 07/15/21 09:40 Neutrophils % 85.2 % (41.7-73.7) H 07/15/21 09:40 Lymphocytes % 10.6 % (15.3-44.8) L 07/15/21 09:40 Monocytes % 3.6 % (3.3-12.3) 07/15/21 09:40 Eosinophils % 0.4 % (0-4.4) 07/15/21 09:40 Basophils % 0.2 % (0-1.3) 07/15/21 09:40 Absolute Neutrophils 9.5 K/uL (1.8-8.0) H 07/15/21 09:40 Absolute Lymphocytes 1.2 K/uL (0.7-4.9) 07/15/21 09:40 Absolute Monocytes 0.4 K/uL (0.1-1.3) 07/15/21 09:40 Absolute Eosinophils 0.0 K/uL (0-0.5) 07/15/21 09:40 Absolute Basophils 0.0 K/uL (0-0.5) 07/15/21 09:40 PT 14.0 SECONDS (9.5-12.5) H 07/15/21 09:40 INR 1.21 07/15/21 09:40 APTT 27.5 SECONDS (24.3-36.9) 07/15/21 09:40 Sodium 134 mmol/L (136-145) L 07/15/21 09:40 Potassium 4.4 mmol/L (3.5-5.1) 07/15/21 09:40 Chloride 103 mmol/L (98-107) 07/15/21 09:40 Carbon Dioxide 24 mmol/L (21-32) 07/15/21 09:40 BUN 14 mg/dL (7-18) 07/15/21 09:40 Creatinine 0.85 mg/dL (0.55-1.3) 07/15/21 09:40 Estimated GFR 65 mL/min (=/>90) L 07/15/21 09:40 Glucose 124 mg/dL (74-106) H 07/15/21 09:40 POC Glucose 104 mg/dL (65-120) 07/15/21 09:33 Lactic Acid 1.7 mmol/L (0.4-2.0) 07/15/21 09:34 Calcium 10.2 mg/dL (8.5-10.1) H 07/15/21 09:40 Magnesium 1.9 mg/dL (1.8-2.4) 07/15/21 09:40 Total Bilirubin 0.5 mg/dL (0.2-1.0) 07/15/21 09:40 Direct Bilirubin 0.2 mg/dL (0-0.2) 07/15/21 09:40 AST 14 U/L (15-37) L 07/15/21 09:40 ALT 14 U/L (12-78) 07/15/21 09:40 Alkaline Phosphatase 165 U/L (45-117) H 07/15/21 09:40 Creatine Kinase 54 U/L (26-192) 07/15/21 09:40 CK-MB (CK-2) 1.1 ng/mL (1.0-3.6) 07/15/21 09:40 Rapid Troponin I < 0.02 ng/mL (0.0-0.045) 07/15/21 09:40 NT-Pro-B Natriuret Pep 1981 pg/mL (<450) H 07/15/21 09:40 Serum Total Protein 6.5 g/dL (6.4-8.2) 07/15/21 09:40 Albumin 2.3 g/dL (3.4-5.0) L 07/15/21 09:40 Globulin 4.2 g/dL (2.3-3.5) H 07/15/21 09:40 Albumin/Globulin Ratio 0.5 (1.1-1.8) L 07/15/21 09:40 Amylase 14 U/L (25-115) L 07/15/21 09:40 Lipase 18 U/L (73-393) L 07/15/21 09:40 Procalcitonin 0.15 ng/mL (<0.050) H 07/15/21 09:40 TSH 1.030 uIU/mL (0.360-3.740) 07/15/21 09:40 Urine RBC 5-10 /HPF (NONE SEEN) H 07/15/21 11:05 Urine WBC >50 /HPF (<5) H 07/15/21 11:05 Ur Squamous Epith Cells <5 /HPF (NONE SEEN) 07/15/21 11:05 Urine Bacteria >50 /HPF (<20) H 07/15/21 11:05 Urine Culture Reflexed Reflexed 07/15/21 11:05 SARS-CoV-2 Rap RNA(RT-PCR) Negative (NEGATIVE) 07/15/21 10:07 Microbiology Data (last 24 hrs): 07/15/21 09:45 Blood - Blood Aerobic Blood Culture - Final Staphylococcus Intermedius 07/15/21 09:45 Blood - Blood Blood Culture Gram Stain - Final 07/15/21 09:45 Blood - Blood Anaerobic Blood Culture - Final Staphylococcus Intermedius 07/15/21 09:45 Blood - Blood Gram Stain - Final Assessment And Plan - Plan Physical Exam: General: In no apparent distress, Obese HEENT: Atraumatic, Normocephalic Neck: Supple, 2+ carotid pulse no bruit Respiratory: Clear to auscultation bilaterally, Normal air movement Cardiovascular: No edema, Regular rate/rhythm Capillary refill: <2 Seconds Gastrointestinal: Normal bowel sounds, Soft and benign Musculoskeletal: No clubbing, No swelling Integumentary: No rashes, No breakdown, No tenderness/swelling Urinary: Thapa catheter Conclusions/Impression: Antibiotics Meropenem Start: 07/15 Stop:-- Indication: UTI Assessment/plan Polymicrobial multi-drug resistant urinary tract infection Urine culture obtained from intermediate grew multiple resistant bacteria. Urine culture performed at this facility showed no growth. Continue meropenem for 5-7 day course. Right mid line placed. Bacteremia Blood cultures performed on 07/15 growing Staph intermedius in 2/4 bottles. Repeat blood cultures obtained on 07/17 showed no growth to date. Initial positive culture likely contaminant, vancomycin Dc. Patient afebrile, hemodynamically stable with no leukocytosis. Medical management per primary team Continue monitor CBC and BMP Today to monitor for signs of infection Plan of care discussed with Dr. Dasilva Thank you for consultation
[2021-07-19 11:20] VITALS: BP 155/62
--- NOTE | 2021-07-19 16:36 | P.DS ---
Admission Date: 07/15/21 Discharge Date: 07/19/21 Disposition: TRANSFER TO JAIL Discharge Condition: GOOD Reason for Admission: UTI Consultations: Infectious disease - Dr. Dasilva Procedures: CXR (07/15): IMPRESSION: No acute cardiopulmonary disease. Possible nodule in the medial aspect of the left upper lobe. Recommend nonemergent chest CT for further evaluation. CT head (07/15): FINDINGS: No intracranial hemorrhage, hydrocephalus or extra-axial fluid collection. Encephalomalacia in the right frontal and temporal lobe including in the basal ganglia is again noted. Increased white matter hypoattenuation in the frontal lobe compared with prior. This is favored chronic. Cerebral atrophy. The paranasal sinuses and mastoids are clear. The calvarium is intact. IMPRESSION: No acute intracranial abnormality. Remote right MCA territory infarct. CT abdomen (07/15): FINDINGS: Lower chest: No acute abnormality. Liver: No acute abnormality or suspicious lesions. Biliary: No biliary ductal dilatation. Stomach: No significant focal abnormality. Duodenum: No significant focal abnormality. Pancreas: No significant abnormality. Spleen: No significant abnormality. Adrenal: No suspicious lesions. Kidney/ureter: No hydronephrosis. No renal calculi. Low-density left renal lesion which is incompletely characterized but statistically a cyst. Retroperitoneum: No retroperitoneal adenopathy. Vascular: No aneurysm. Bowel: No significant focal abnormality. Moderate stool in the rectum. Peritoneum: No ascites or free air. Bladder: Thapa catheter with decompressed bladder. Reproductive: No adnexal masses. Hysterectomy. Bones: No acute fracture. Multilevel degenerative changes are present in the spine. Other: n/a IMPRESSION: No acute intra-abdominal or pelvic finding. Blood culture (07/15): Staph intermedius (2 out of 4 bottles): Pansensitive, with exception of penicillin resistance. Urine culture (07/15): No growth Blood culture (07/17): No growth Problem List UTI, acute cystitis h/o urinary incontinence Chronic atrial fibrillation, with RVR on admission KEVIN Chronic Pain Chronic COPD, without exacerbation h/o functional constipation h/o CVA, bed-bound / hemiplegia Depression Obesity Anemia of chronic disease Chronic diastolic - CHF GERD Brief History of Present Illness: 76-year-old female, alf patient, with multiple comorbidities, bedbound, urinary incontinence was brought to the ED due to worsening dysuria and suprapubic pain secondary to urinary tract infection. Patient states she has been having similar symptoms intermittently over the last several months. The symptoms have been worse over the last 2-3 days. Urine culture was obtained 2 days ago, and was positive for multiple bacteria. She was treated with doxycycline, had no improvement so was sent to the ER. In the ED, she was noted to be febrile, leukocytosis, UA grossly positive for bacteria. She did not appear septic. Her baseline is AO x3 with some mild intermittent confusion. She was able to give a good history. Patient is admitted for further treatment of this multiorganism, multi resistant urinary tract infection. Patient was also found to be in A. fib with RVR, improved with Lopressor. Hospital Course: Patient had a recent urine culture from her nursing facility with multiple bacteria, with different resistances to antibiotics. The quality of the urine culture was unclear. Patient was empirically started on meropenem. Infectious disease was consulted. Patient began to have improvement of her symptoms and was improving. Her blood culture blood culture from 07/15 were positive for gram-positive cocci in 2 out of 4 bottles, patient was started on vancomycin on 07/16. She continued to have improvement and eventual resolution of her symptoms. She reported feeling back to her normal/typical self and was ready/requesting to be discharged back to the alf. A midline was placed overnight on 07/18, and patient was discharged back to her nursing facility to complete a total of 5 days of IV meropenem per infectious disease recommendations. It was felt that the positive blood culture (growing Staphylococcus auricularis), was a contaminant, discussed with infectious disease. Of note, patient did have a Thapa catheter placed in the ED, and this was removed at 3 AM on day of discharge, and patient voided. During her hospitalization she remained afebrile, and her CRP significantly improved from 208 to 23. Patient was found to be in atrial fibrillation with RVR in the ED on arrival. She received IV Lopressor and was continued on metoprolol with good rate control. Her home dose of metoprolol was doubled and patient's heart rate remained in rate controlled atrial fibrillation. Recommend to continue this higher dose of metoprolol on discharge. Vital Signs/Physical Exam: Physical Exam General: Alert, Oriented x3, NAD HEENT: Mucous membr. moist/pink, Sclerae nonicteric Respiratory: Diminished, non-labored respirations on room air Cardiovascular: 1+ b/l pedal edema, irregularly irregular rhythm Gastrointestinal: Soft and benign, Non-distended, nontender Neurological: Normal speech, Normal affect Temp Pulse Resp BP Pulse Ox 97.9 F 84 20 155/62 H 99 07/19/21 11:10 07/19/21 11:19 07/19/21 11:10 07/19/21 11:19 07/19/21 11:10 Laboratory Data at Discharge: WBC 4.50 K/uL (4.3-10.9) 07/19/21 05:00 Hgb 9.4 g/dL (12.0-15.0) L 07/19/21 05:00 Hct 29.0 % (36.0-45.0) L 07/19/21 05:00 Plt Count 227 K/uL (152-406) 07/19/21 05:00 PT 14.0 SECONDS (9.5-12.5) H 07/15/21 09:40 INR 1.21 07/15/21 09:40 APTT 27.5 SECONDS (24.3-36.9) 07/15/21 09:40 Sodium 144 mmol/L (136-145) 07/19/21 05:00 Potassium 3.9 mmol/L (3.5-5.1) 07/19/21 05:00 BUN 9 mg/dL (7-18) 07/19/21 05:00 Creatinine 0.73 mg/dL (0.55-1.3) 07/19/21 05:00 Glucose 110 mg/dL (74-106) H 07/19/21 05:00 Magnesium 2.1 mg/dL (1.8-2.4) 07/17/21 04:33 Total Bilirubin 0.3 mg/dL (0.2-1.0) 07/16/21 03:58 AST 16 U/L (15-37) 07/16/21 03:58 ALT 15 U/L (12-78) 07/16/21 03:58 Alkaline Phosphatase 156 U/L (45-117) H 07/16/21 03:58 Amylase 14 U/L (25-115) L 07/15/21 09:40 Lipase 18 U/L (73-393) L 07/15/21 09:40 Home Medications: Duloxetine HCl [Cymbalta] 2 cap PO DAILY 01/13/14 Montelukast Sodium 10 mg PO BEDTIME 12/22/16 Atorvastatin Calcium [Lipitor] 1 tab PO BEDTIME 02/01/18 Clopidogrel Bisulfate [Plavix*] 75 mg PO DAILY 02/01/18 Cyanocobalamin (Vitamin B-12) [Vitamin B-12] 2 tab PO DAILY 02/01/18 Hydrocodone Bit/Acetaminophen [Hydrocodon-Acetaminophn 10-325] 1 tab PO Q6H PRN 02/01/18 Melatonin 1 tab PO BEDTIME 02/01/18 Acetaminophen 2 tab PO Q8HP PRN 03/24/18 L. Acidophilus/Pectin, [place] [Acidophilus Capsule] 1 cap PO DAILY 03/24/18 Nystatin Powder [Mycostatin (Powder)*] 1 markie TOP BID 03/24/18 Omeprazole 20 mg PO DAILY 03/24/18 Albuterol Inhaler [Ventolin Inhaler*] 2 puff IH Q6H PRN 07/16/21 Bisacodyl [Gentle Laxative] 10 mg RC DAILY PRN 07/16/21 Bupropion HCl [Wellbutrin] 75 mg PO DAILY 07/16/21 Cranberry Fruit Extract [Cranberry] 425 mg PO BID 07/16/21 Diclofenac Sodium [Voltaren Arthritis Pain] 20 gm TP DAILY PRN 07/16/21 Docusate [Colace Cap*] 100 mg PO BID 07/16/21 Ergocalciferol (Vitamin D2) [Vitamin D2] 50,000 unit PO DAILY 07/16/21 LORazepam [Ativan*] 0.5 mg PO BID PRN 07/16/21 Mag Hydroxide 8% [Milk Of Magnesia*] 30 ml PO DAILY PRN 07/16/21 Ondansetron [Zofran (Odt)*] 4 mg PO Q6H PRN 07/16/21 Quetiapine Fumarate [Seroquel] 25 mg PO BEDTIME 07/16/21 Meropenem [Merrem 1 GM/100 ML NS IVPB] 1 gm IV Q8H 3 Days #8 bag 07/19/21 Metoprolol Tartrate [Lopressor*] 25 mg PO BID 30 Days #60 tab 07/19/21 New Medications: Metoprolol Tartrate [Lopressor*] 25 mg PO BID 30 Days #60 tab Meropenem [Merrem 1 GM/100 ML NS IVPB] 1 gm IV Q8H 3 Days #8 bag Physician Discharge Instructions: You have been treated for a urinary tract infection. You were found to have elevated inflammatory markers and had recent urine culture growing multiple bacteria. Infectious disease was consulted and recommended Meropenem IV for 5 days. Last day: 07/21. A midline IV was placed on 07/18. You had improvement of your symptoms and inflammatory markers. Your urine culture did not grow any bacteria, likely due to being on antibiotics prior to testing. Blood culture revealed 1 of 2 bottles growing gram positive cocci (staph intermedius), which is thought to be contamination as it was only 1 out of 2 blood cultures and repeat cultures remained negative. Diet: AHA Activity: Fall precautions Followup: NONE,NONE [Primary Care Provider] - Time spent managing pt's care (in minutes): 45
== END 2021-07-19 11:30 | DRG 690 ==
LOC: ER 09:15 → ERHOLD 13:07 → 4TH 14:39
PROVIDERS: ADMIT Hospitalist; ATTEND Hospitalist
DX: N30.00 Acute cystitis without hematuria (principal); I69.354 Hemiplegia and hemiparesis following cerebral infarction affecting left non-dominant side; I48.20 Chronic atrial fibrillation, unspecified; Z68.43 Body mass index [BMI] 50.0-59.9, adult; I50.32 Chronic diastolic (congestive) heart failure; G47.33 Obstructive sleep apnea (adult) (pediatric); G89.29 Other chronic pain; J44.9 Chronic obstructive pulmonary disease, unspecified; F32.A Depression, unspecified; E66.9 Obesity, unspecified; D63.8 Anemia in other chronic diseases classified elsewhere; I11.0 Hypertensive heart disease with heart failure; K21.9 Gastro-esophageal reflux disease without esophagitis; Z74.01 Bed confinement status; Z96.653 Presence of artificial knee joint, bilateral; Z20.822 Contact with and (suspected) exposure to COVID-19; Z88.0 Allergy status to penicillin; Z91.040 Latex allergy status
CPT/HCPCS: 36415; 51702; 70450; 71045; 74176; 76377; 80048; 80053; 80076; 80202; 81015; 82150; 82550; 82553; 82947; 83605; 83690; 83735; 83880; 84145; 84443; 84484; 85025; 85027; 85610; 85730; 86140; 87040; 87077; 87086; 87088; 87186; 87205; 93005; 94760; 96365; 96367; 96372; 96375; 99285; J0692; J1650; J1940; J2185; J3370; J7030; J7040; U0003

== ENCOUNTER 2022-05-11 16:18 | Emergency (ER) | payer OTHER ==
--- OUTSIDE RECORDS SUMMARY | 2022-05-11 16:25 | XMS REPORT | Continuity of Care Document ---
:1945 Author Organization [facility] t Address [facility]3 [address] [place] [address] Care Team Providers Name Role Phone PCP, PATIENT DOES NOT HAVE A Primary Care Physician Unavaila ble Doctor Unassigned, [place] Attending Clinician Unavailable Arnulfo Roper RN Attending Clinician Unavailable Mattie Quinn Attending Clinician Doug Spivey MD Attending Clinician Aditi Mary DO Attending Clinician ADITI MARY Attending Clinician Unavailable FLASH HARDEN P.A. Attending Clinician Unavailable DAGMAR HARDIN M.D. Attending Clinician Unavailable FROYLAN LOPEZ Attending Clinician Unavailable Aditi Mary DO Admitting Clinician ADITI MARY Admitting Clinician Unavailable FROYLAN LOPEZ Admitting Clinician Unavailable Payers Payer Name Policy Type Policy Number Effective Date Expiration Date S ource MEDICAID OF [place] [id number] 2021 00:00:00 Problems Condition Condition Condition Status Onset Resolution Last Treating Co mments Source Name Details Category Date Date Treatment Clinician Date COVID-19 COVID-19 Disease Active Unive rs virus virus 2-07 [place] Atrial Atrial Disease Active [facility] fibrillati fibrillati 2-06 it y of on with on with 00:00: [place] RVR RVR Medical Branch Anemia Anemia Disease Active Univers associated associated 2-06 it y of with with 00:00: [place] nutritiona nutritiona 00 Me dical l l Branch deficiency deficiency Elevated Elevated Disease Active Unive rs brain brain 2-06 ity of natriureti natriureti 00:00[place] c peptide c peptide 00 Medi mike (BNP) (BNP) Branch level level Complicate Complicate Disease Active U nivers d UTI d UTI 2-05 ity of (urinary (urinary 00:00: [place] tract tract 00 Medical infection) infection) Br anch Total knee Total knee Disease Active U nivers replacemen replacemen 06-22 it y of t status t status 00:00: [place] 00 Medical Branch Gaby-prost Gaby-prost Problem Active U T hetic hetic Physici femoral femoral ans shaft shaft fracture fracture Allergies, Adverse Reactions, Alerts Allergy Allergy Status Severity Reaction(s) Onset Inactive Treating Comm ents Source Name Type Date Date Clinician Pregabal Propensi Active Hallucinatio 2015-10 Univers in ty to ns 2-28 ity of adverse 00:00: [place] reaction 00 Medical s Branch PREGABAL DRUG Active Hallucinates 2015-10 Un monalisa IN INGREDI 2-28 ity of 00:00: [place] 00 Medical Branch Haloperi Propensi Active Anxiety Unive rs dol ty to 9-10 ity of Lactate adverse 00:00: [place] reaction 00 Medical s to Branch drug Iodine Propensi Active Swelling IV IODINE Uni vers ty to 9-10 ONLY ity of adverse 00:00: [place] reaction Medical s to Branch drug Latex Propensi Active Rash Univers ty to 9-10 ity of adverse 00:00: [place] reaction 00 Medical s to Branch drug Morphine Propensi Active Other - See High U nivers ty to comments 9-10 blood ity of adverse 00:00: pressure [place] reaction Medical s to Branch drug Penicill Propensi Active Swelling Univ ers ins ty to 9-10 ity of adverse 00:00: [place] reaction 00 Medical s to Branch drug HALOPERI DRUG Active Med Anxiety Univers DOL INGREDI 9-10 ity of LACTATE 00:00: [place] 00 Medical Branch IODINE DRUG Active Med ITCHING Univers INGREDI 9-10 ity of 00:00: [place] 00 Medical Branch LATEX DRUG Active Med ITCHING Univers INGREDI 9-10 ity of 00:00: [place] [facility] MORPHINE DRUG Active Med Anxiety Univers INGREDI 9-10 ity of 00:00: [place] [facility] PENICILL Drug Active Med Rash Univers INS Class 9-10 ity of 00:00: [place] [facility] [place] Social History Social Habit Start Date Stop Date Quantity Comments Source Exposure to Not sure [facility] SARS-CoV-2 [facility] (event) Branch Alcohol intake 2016-09-28 2016-09-28 Current [facility] 00:00:00 00:00:00 non-drinker of [facility] alcohol [place] (finding) Tobacco use and 2015-06-11 2015-06-11 Never used Universit y of exposure 00:00:00 00:00:00 [facility] Sex Ass[birth year] Universit y of 00:00:00 00:00:00 [facility] Smoking Status Start Date Stop Date Source Never smoker [facility] [place] [facility] Medications Ordered Filled Start Stop Current Ordering Indication Dosage Frequency Signature Comments Components Source Medication Medication Date Date Medication? Clinician (SIG) Name Name KCL 0 202- No 40meq 40 mEq, Univers (KLOR-CON 2-10 02-10 Oral, ity of M20) tablet 15:30: 16:11 ONCE, 1 [place] 40 mEq 00 :00 dose, On Medical [place] Branch 11/11/21 at 0930, Routine lidocaine Yes 1{patch 1 Patch, U nivers (LIDODERM) 2-10 } Topical, ity o f 5 % (700 15:00: Administer Scar as mg/patch) 00 over 12 Medical patch 1 Hours, Branch Patch DAILY, First dose on [facility] 11/11/21 at 0900, Until Discontinu ed, Routine LORazepam 2021-0 Yes .5mg Take 0.5 Univ ers (ATIVAN) 2-10 mg by ity of 0.5 mg 14:37: mouth 2 [place] tablet 18 (two) Medical times Branch daily as needed for Anxiety or Agitation. LORazepam 2021-0 Yes .5mg Take 0.5 Univ ers (ATIVAN) 2-10 mg by ity of 0.5 mg 14:37: mouth 2 [place] tablet 18 (two) Medical times Branch daily as needed for Anxiety or Agitation. LORazepam 2021-0 Yes .5mg Take 0.5 Univ ers (ATIVAN) 2-10 mg by ity of 0.5 mg 14:37: mouth 2 [place] tablet 18 (two) Medical times Branch daily as needed for Anxiety or Agitation. apixaban 5 2021-0 Yes 5mg Take 1 Unive rs mg tablet 2-10 tablet by ity o f 00:00: mouth 2 [place] 00 (two) Medical times Branch daily. aspirin 81 2021-0 Yes 81mg Take 1 Unive rs mg chewable 2-10 tablet by ity of tablet 00:00: mouth 00 daily. Medical Branch atorvastati 2021-0 Yes 40mg Take 1 Univ ers n 40 mg 2-10 tablet by ity of tablet 00:00: mouth at [place] 00 bedtime. Medical Branch docusate 2021-0 Yes 100mg Take 1 Univer s 100 mg 2-10 capsule by ity of capsule 00:00: mouth 2 00 (two) Medical times Branch daily. DULoxetine 2021-0 Yes 60mg Take 1 Unive rs 60 mg 2-10 capsule by ity of capsule 00:00: mouth 00 daily. Medical Branch buPROPion 2021-0 Yes 75mg Take 1 Univer s 75 mg 2-10 tablet by ity of tablet 00:00: mouth 00 daily. Medical Branch gabapentin 2021-0 Yes 100mg Take 1 Univ ers 100 mg 2-10 capsule by ity of capsule 00:00: mouth 3 00 (three) Medical times Branch daily. hydrocortis 2021-0 Yes Apply to Un monalisa one 2.5 % 2-10 affected ity of cream 00:00: area(s) 2 00 (two) Medical times Branch daily. melatonin 3 2021-0 Yes 3mg Take 1 Univ ers mg tablet 2-10 tablet by ity o f 00:00: mouth at [place] 00 bedtime. Medical Branch metoprolol 2021-0 Yes 50mg Take 1 Unive rs succinate 2-10 tablet by ity o f XL 50 mg 24 00:00: mouth 2 Scar as hr tablet 00 (two) Medical times Branch daily. montelukast 2021-0 Yes 10mg Take 1 Univ ers 10 mg 2-10 tablet by ity of tablet 00:00: mouth [place] 00 every Medical evening. Branch nystatin Yes Apply to Unive rs 100,000 2-10 area(s) 2 ity of unit/gram 00:00: (two) [place] powder 00 times Medical daily. Branch omeprazole 0 Yes 20mg Take 1 Unive rs 20 mg 2-10 capsule by ity of capsule 00:00: mouth 00 daily. Medical Branch sennosides 0 Yes 8.6mg Take 1 Univ ers 8.6 mg 2-10 tablet by ity of tablet 00:00: mouth 2 (two) Medical times Branch daily. ferrous 2021-0 Yes [id number] 325mg Take 1 Uni vers sulfate 2-10 tablet by ity of (IRON) 325 00:00: mouth [place] mg (65 mg 00 daily. Medical iron) Branch tablet apixaban 5 0 Yes 5mg Take 1 Unive rs mg tablet 2-10 tablet by ity o f 00:00: mouth (two) Medical times Branch daily. aspirin 81 0 Yes 81mg Take 1 Unive rs mg chewable 2-10 tablet by ity of tablet 00:00: mouth 00 daily. Medical Branch atorvastati 0 Yes 40mg Take 1 Univ ers n 40 mg 2-10 tablet by ity of tablet 00:00: mouth at 00 bedtime. Medical Branch docusate 0 Yes 100mg Take 1 Univer s 100 mg 2-10 capsule by ity of capsule 00:00: mouth (two) Medical times Branch daily. DULoxetine 0 Yes 60mg Take 1 Unive rs 60 mg 2-10 capsule by ity of capsule 00:00: mouth 00 daily. Medical Branch buPROPion 0 Yes 75mg Take 1 Univer s 75 mg 2-10 tablet by ity of tablet 00:00: mouth 00 daily. Medical Branch gabapentin 0 Yes 100mg Take 1 Univ ers 100 mg 2-10 capsule by ity of capsule 00:00: mouth 3 (three) Medical times Branch daily. hydrocortis Yes Apply to Un monalisa one 2.5 % 2-10 affected ity of cream 00:00: area(s) 2 (two) Medical times Branch daily. melatonin 3 2022-0 Yes 3mg Take 1 Univ ers mg tablet 2-10 tablet by ity o f 00:00: mouth at [place] 00 bedtime. Medical Branch metoprolol 0 Yes 50mg Take 1 Unive rs succinate 2-10 tablet by ity o f XL 50 mg 24 00:00: mouth 2 [place] as hr tablet 00 (two) Medical times Branch daily. montelukast 0 Yes 10mg Take 1 Univ ers 10 mg 2-10 tablet by ity of tablet 00:00: mouth [place] 00 every Medical evening. Branch nystatin Yes Apply to Unive rs 100,000 2-10 area(s) 2 ity of unit/gram 00:00: (two) [place] powder 00 times Medical daily. Branch omeprazole Yes 20mg Take 1 Unive rs 20 mg 2-10 capsule by ity of capsule 00:00: mouth 00 daily. Medical Branch sennosides Yes 8.6mg Take 1 Univ ers 8.6 mg 2-10 tablet by ity of tablet 00:00: mouth 2 [place] 00 (two) Medical times Branch daily. ferrous 2021-0 Yes [id number] 325mg Take 1 Uni vers sulfate 2-10 tablet by ity of (IRON) 325 00:00: mouth [place] mg (65 mg 00 daily. Medical iron) Branch tablet apixaban 5 Yes 5mg Take 1 Unive rs mg tablet 2-10 tablet by ity o f 00:00: mouth 2 [place] 00 (two) Medical times Branch daily. aspirin 81 0 Yes 81mg Take 1 Unive rs mg chewable 2-10 tablet by ity of tablet 00:00: mouth [place] 00 daily. Medical Branch atorvastati 0 Yes 40mg Take 1 Univ ers n 40 mg 2-10 tablet by ity of tablet 00:00: mouth at [place] 00 bedtime. Medical Branch docusate 0 Yes 100mg Take 1 Univer s 100 mg 2-10 capsule by ity of capsule 00:00: mouth 2 [place] 00 (two) Medical times Branch daily. DULoxetine 0 Yes 60mg Take 1 Unive rs 60 mg 2-10 capsule by ity of capsule 00:00: mouth [place] 00 daily. Medical Branch buPROPion 0 Yes 75mg Take 1 Univer s 75 mg 2-10 tablet by ity of tablet 00:00: mouth [place] 00 daily. Medical Branch gabapentin 0 Yes 100mg Take 1 Univ ers 100 mg 2-10 capsule by ity of capsule 00:00: mouth 3 [place] 00 (three) Medical times Branch daily. hydrocortis Yes Apply to Un monalisa one 2.5 % 2-10 affected ity of cream 00:00: area(s) 2 [place] 00 (two) Medical times Branch daily. melatonin 3 0 Yes 3mg Take 1 Univ ers mg tablet 2-10 tablet by ity o f 00:00: mouth at [place] 00 bedtime. Medical Branch metoprolol Yes 50mg Take 1 Unive rs succinate 2-10 tablet by ity o f XL 50 mg 24 00:00: mouth 2 [place] as hr tablet 00 (two) Medical times Branch daily. montelukast Yes 10mg Take 1 Univ ers 10 mg 2-10 tablet by ity of tablet 00:00: mouth [place] 00 every Medical evening. Branch nystatin Yes Apply to Unive rs 100,000 2-10 area(s) 2 ity of unit/gram 00:00: (two) [place] powder 00 times Medical daily. Branch omeprazole 0 Yes 20mg Take 1 Unive rs 20 mg 2-10 capsule by ity of capsule 00:00: mouth [place] 00 daily. Medical Branch sennosides Yes 8.6mg Take 1 Univ ers 8.6 mg 2-10 tablet by ity of tablet 00:00: mouth 2 [place] 00 (two) Medical times Branch daily. ferrous 0 Yes [id number] 325mg Take 1 Uni vers sulfate 2-10 tablet by ity of (IRON) 325 00:00: mouth [place] mg (65 mg 00 daily. Medical iron) Branch tablet furosemide 0 2021- No [id number] 20mg Take 1 Univers 20 mg 2-10 03-13 tablet by ity of tablet 00:00: 05:59 mouth [place] 00 :00 daily for Medical 30 days. Branch furosemide 2021-0 2021- No [id number] 20mg Take 1 Univers 20 mg 2-10 03-13 tablet by ity of tablet 00:00: 05:59 mouth [place] 00 :00 daily for Medical 30 days. Branch furosemide 2021- No [id number] 20mg Take 1 Univers 20 mg 11-11- tablet by ity of tablet 00:00: 05:59 mouth [place] 00 :00 daily for Medical 30 days. Branch albuterol 2021- No [id number] 2{puff} Inhale 2 Univers 90 2-10 02-26 Puffs ity of mcg/actuati 00:00: 05:59 every 6 [place] on inhaler 00 :00 (six) Medical hours as Branch needed for Wheezing or Shortness of Breath for up to 15 days. albuterol 2021- No [id number] 2{puff} Inhale 2 Univers 90 2-10 02-26 Puffs ity of mcg/actuati 00:00: 05:59 every 6 [place] on inhaler 00 :00 (six) Medical hours as Branch needed for Wheezing or Shortness of Breath for up to 15 days. albuterol 2021- No [id number] 2{puff} Inhale 2 Univers 90 2-10 02-26 Puffs ity of mcg/actuati 00:00: 05:59 every 6 [place] on inhaler 00 :00 (six) Medical hours as Branch needed for Wheezing or Shortness of Breath for up to 15 days. magnesium 2021-2021- No [id number] 400mg Take 400 Univers oxide 420 2-10 02-16 mg by ity of mg Tab 00:00: 05:59 mouth [place] 00 :00 daily for Medical 5 days. Branch magnesium 2021- No [id number] 400mg Take 400 Univers oxide 420 2-10 02-16 mg by ity of mg Tab 00:00: 05:59 mouth [place] 00 :00 daily for Medical 5 days. Branch nitrofurant 2021- No [id number] 100mg Take 1 Univers oin 100 mg 11-11 capsule by it y of capsule 00:00: 05:59 mouth 4 [place] 00 :00 (four) Medical times Branch daily for 2 days. nitrofurant 2021- No [id number] 100mg Take 1 Univers oin 100 mg 11-11- capsule by it y of capsule 00:00: 05:59 mouth 4 [place] 00 :00 (four) Medical times [place] daily for 2 days. LORazepam 2021-0 Yes .25mg 0.25 mg, Uni vers (ATIVAN) 2- Oral, ity of tablet 0.25 19:28: BIDPRN, Scar as mg 18 Starting Medical on Mon [place] 11/10/21 at 1328, Until Discontinu ed, Routine, Anxiety, Agitation omeprazole 2021-0 Yes 20mg 20 mg, Unive rs (PRILOSEC) 2- Oral, ity of capsule 20 15:00: DAILY, [place] mg 00 First dose Medical on Mon [place] 11/10/21 at 0900, Until Discontinu ed, Routine melatonin 2021-0 Yes 3mg 3 mg, Univers (MELATIN) - Oral, QHS, ity of tablet 3 mg 03:00: First dose [place] 00 on [facility] 11/09/21 at Branch 2100, Until Discontinu ed, Routine metoprolol 2021-0 Yes 50mg 50 mg, Unive rs succinate 11-10 Oral, BID, ity of XL (TOPROL 02:00: First dose [place] XL) tablet 00 on [facility] 50 mg 11/09/21 at Branch 2000, Until Discontinu ed, Routine hydrocortis 2021-0 Yes Topical Uni vers one 2.5 % 11-10 (Apply To ity o f cream 02:00: Affected [place] 00 Areas), Medical BID, First Branch dose on [facility] 11/09/21 at 2000, Until Discontinu ed, Routine nystatin 2021-0 Yes Topical, Unive rs (NYSTOP) 2 BID, First ity o f powder 02:00: dose on 00 [facility] 11/09/21 Medical at 2000, Branch Until Discontinu ed, Routine QUEtiapine 2021-0 202- No 50mg 50 mg, Univ ers (SEROQUEL) 11-10 02-09 Oral, BID, it y of tablet 50 02:00: 14:40 First dose [place] mg 00 :45 on [facility] 11/09/21 at Branch 2000, Until Discontinu ed, Routine montelukast 2021-0 Yes 10mg 10 mg, Univ ers (SINGULAIR) 2-08 Oral, QPM, it y of tablet 10 23:00: First dose [place] mg 00 on [facility] 11/09/21 at Branch 1700, Until Discontinu ed, Routine nitrofurant 2021-0 2021- No 100mg 100 mg, U nivers oin 2-08 02-13 Oral, QID, ity of (MACRODANTI 21:45: 17:59 20 doses, [place] N) capsule 00 :00 First dose Med ical 100 mg on [facility] 11/09/21 at 1545, Last dose on [place] 11/14/21 at 0800, Routine
Reason for Anti-Infec tive: Empiric Therapy for Suspected Infection< br>Empiric Therapy Site: Urine
D uration of therapy: 7 days magnesium 2021-0 Yes 400mg 400 mg, Univ ers oxide 2-08 Oral, BID, ity of (MAG-OX 21:15: First dose [place] 400) tablet 00 on [facility] l 400 mg 11/09/21 at Branch 1515, Until Discontinu ed, Routine DULoxetine 0 Yes 60mg 60 mg, Unive rs (CYMBALTA) 2-08 Oral, ity of capsule 60 21:15: DAILY, [place] mg 00 First dose Medical on [facility] 11/09/21 at 1515, Until Discontinu ed, Routine sennosides 2021-0 Yes 8.6mg 8.6 mg, Uni vers (SENOKOT) 2-08 Oral, BID, ity of tablet 8.6 21:15: First dose [place] mg 00 on [facility] 11/09/21 at Branch 1515, Until Discontinu ed, Routine docusate 2021-0 Yes 100mg 100 mg, Unive rs (COLACE) 2-08 Oral, BID, ity o f capsule 100 21:15: First dose [place] mg 00 on [facility] 11/09/21 at Branch 1515, Until Discontinu ed, Routine buPROPion 2021-0 Yes 75mg 75 mg, Univer s (WELLBUTRIN 2-08 Oral, ity of ) tablet 75 21:15: DAILY, [place] mg 00 First dose Medical on [facility] 11/09/21 at 1515, Until Discontinu ed, Routine gabapentin 2021-0 Yes 100mg 100 mg, Uni vers (NEURONTIN) 2-08 Oral, TID, it y of capsule 100 21:15: First dose [place] mg 00 on [facility] 11/09/21 at Branch 1515, Until Discontinu ed, Routine furosemide Yes 20mg 20 mg, IV Un monalisa (LASIX) 11-09 Push, ity of injection 21:15: Q8HA2, [place] 20 mg 00 First dose Medical on [facility] 11/09/21 at 1515, Until Discontinu ed, MARIA ELENA LORazepam 2021- No .25mg 0.25 mg, Un monalisa (ATIVAN) 11-09 Oral, TID, ity of tablet 0.25 21:00: 14:40 First dose [place] mg 00 :39 on [facility] 11/09/21 at Branch 1500, Until Discontinu ed, Routine DULoxetine 2021- No 60mg Take 60 mg Univers (CYMBALTA) 11-09 by mouth 2 it y of 60 mg 15:08: 00:00 (two) [place] capsule 27 :00 times Medical daily. Branch montelukast No 10mg Take 10 mg Univers 10 mg 11-09 by mouth. ity of tablet 15:08: 00:00 [place] 27 :00 Medical Branch clotrimazol 2021- No Apply to U nivers e 1 % 11-09 area(s) at ity of topical 15:08: 00:00 bedtime. [place] cream 27 :00 Medical Branch QUEtiapine 2021- No 50mg Take 50 mg Univers (SEROQUEL) 11-09 by mouth 2 it y of 50 mg 15:08: 00:00 (two) [place] tablet 27 :00 times Medical daily. Branch Diclofenac 2021- No Apply to Un monalisa Sodium 11-09 area(s). ity of (VOLTAREN) 15:08: 00:00 [place] 1 % gel 27 :00 Medical Branch lidocaine 2021- No 1{patch Apply 1 U nivers (LIDODERM) 11-09 } Patch to ity of 5 % (700 15:08: 00:00 area(s) [place] mg/patch) 27 :00 once now. Medic al patch Branch HYDROcodone 2021- No Take by Un monalisa -acetaminop 11-09-08 mouth ity of hen (NORCO) 15:08: 00:00 every 6 [place] 10-325 mg 27 :00 (six) Medical tablet hours as Branch needed. LORazepam 2021- No .5mg Take 0.5 Uni vers (ATIVAN) 11-0908 mg by ity of 0.5 mg 15:08: 00:00 mouth. [place] tablet 27 :00 Medical Branch metoprolol 2021- No 25mg Take 25 mg Univers tartrate 25 11-09-08 by mouth 2 i ty of mg tablet 15:08: 00:00 (two) [place] 27 :00 times Medical daily. Branch Acetaminoph 2021- No Take by Un monalisa en 500 mg 11-09 mouth. ity of Cap 15:08: 00:00 [place] 27 :00 Medical Branch albuterol No 2{puff} Inhale 2 Univers (VENTOLIN 11-09- Puffs ity of HFA) 90 15:08: 00:00 every 6 [place] mcg/actuati 27 :00 (six) Medical on inhaler hours as Branc h needed for Wheezing or Shortness of Breath. magnesium 2021- No Take by [facility] ers hydroxide 11-09- mouth. ity of (MILK OF 15:08: 00:00 [place] MAGNESIA 27 :00 Medical ORAL) Branch cranberry 2021- No Take by [facility] ers fruit 11-09- mouth. ity of (CRANBERRY) 15:08: 00:00 [place] 450 mg Tab 27 :00 Medical Branch buPROPion 2021- No 75mg Take 75 mg U nivers 75 mg 11-09-08 by mouth 3 ity of tablet 15:08: 00:00 (three) [place] 27 :00 times Medical daily. Branch docusate 2021- No 100mg Take 100 Uni vers 100 mg 11-09-08 mg by ity of capsule 15:08: 00:00 mouth [place] 27 :00 daily. Medical Branch bisacodyL 2021- No 10mg Insert 10 Un monalisa 10 mg 11-09- mg into ity of suppository 15:08: 00:00 rectum at [place] 27 :00 bedtime as Medical needed. Branch vitamin 2021- No 500ug Take 500 Univ ers B-12 11-09 mcg by ity of (VITAMIN 15:08: 00:00 mouth [place] B-12) 500 27 :00 daily. Medical mcg tablet Branch atorvastati 2021- No 80mg Take 80 mg Univers n 80 mg 11-09 by mouth ity of tablet 15:08: 00:00 at [place] 27 :00 bedtime. Medical Branch Lactobacill 2021- No Take by Un monalisa us 11-09 mouth. ity of acidophilus 15:08: 00:00 [place] (ACIDOPHILU 27 :00 Medical S ORAL) Branch ondansetron 2021- No 4mg Take 4 mg Univers 4 mg tablet 11-09 by mouth ity of 15:08: 00:00 every 8 [place] 27 :00 (eight) Medical hours as Branch needed. clopidogreL 2021- No 75mg Take 75 mg Univers 75 mg 11-09 by mouth ity of tablet 15:08: 00:00 daily. [place] 27 :00 Medical Branch omeprazole 2021- No 20mg Take 20 mg Univers 20 mg 11-09 by mouth ity of capsule 15:08: 00:00 daily. [place] 27 :00 Medical Branch melatonin 3 2021- No 3mg Take 3 mg Univers mg tablet 11-09 by mouth ity o f 15:08: 00:00 at [place] 27 :00 bedtime. Medical Branch losartan 2021- No 50mg Take 50 mg Un monalisa (COZAAR) 50 11-09- by mouth ity of mg tablet 15:08: 00:00 daily. [place] 22 :00 Medical Branch carvedilol 2021- No 6.25mg Take 6.25 Univers (COREG) 11-09-05 mg by ity of 6.25 mg 15:08: 00:00 mouth 2 [place] tablet 22 :00 (two) Medical times Branch daily. oxazepam 2021- No 30mg Take 30 mg Un monalisa (SERAX) 30 11-09 by mouth 4 it y of mg capsule 15:08: 00:00 (four) [place] 22 :00 times Medical daily. [place] furosemide 2021- 80mg Take 80 mg Univers (LASIX) 80 11-09 by mouth ity of mg tablet 15:08: 00:00 daily. [place] 22 :00 [facility] diclofenac 2021- No 75mg Take 75 mg Univers (VOLTAREN) 11-09 by mouth ity of 75 mg EC 15:08: 00:00 daily. [place] tablet 22 :00 [facility] atorvastati Yes 40mg 40 mg, Univ ers n (LIPITOR) 11-09 Oral, QHS, it y of tablet 40 03:00: First dose [place] mg 00 on [facility] 11/08/21 at Branch 2100, Until Discontinu ed, Routine vancomycin No 15mg/kg 1,500 mg Univers 1500 mg in 11-08 (rounded ity of NS 500 mL 18:15: 21:32 from [place] IV 00 :52 2,131.5 mg Medical Piggyback = 15 mg/kg Bran ch RTU 1,500 ?142.1 mg kg), IV Piggyback, Q12H ABX, First dose on [facility] 11/08/21 at 1215, Until Discontinu ed, Administer over 90 Minutes
Reason for Anti-Infec tive: Documented Infection< br>Documen bouchra Infection Site: Urine
D uration of Therapy: 7 days potassium, 2021- No 2{packe 2 Packet, Univers sodium 11-08 t} Oral, ity of phosphates 15:15: 16:00 ONCE, 1 [place] as (PHOS-NAK) 00 :00 dose, On Medic al [phone] [facility] 11/08/21 Br anch mg packet 2 at 0915, Packet Routine apixaban Yes 5mg 5 mg, Univers (ELIQUIS) 2- Oral, BID, ity of tablet 5 mg 02:00: First dose [place] 00 on [facility] 11/07/21 at Branch 2000, Until Discontinu ed, Routine
Indicatio ns: Non-Valvul ar Atrial Fibrillati on phosphorus 2021- No 250mg 1 tablet U nivers (K PHOS 11-07 (250 mg), ity of NEUTRAL) 20:00: 19:27 Oral, TID, [place] tablet 1 00 :31 First dose Medic al tablet on [place] Branch 11/07/21 at 1400, Until Discontinu ed, Routine magnesium No 2g 2 g, IV Univ ers sulfate in 11-07 Piggyback, it y of water 2 19:30: 18:41 ONCE NOW, [place] gram/50 mL 00 :00 1 dose, On Med ical (4 %) 11/07/21 Branch infusion 2 at 1330, g Routine iron No 300mg 300 mg, IV Unive rs sucrose 11-07 Infusion, ity of (VENOFER) 18:45: 19:33 DAILY, [place] 300 mg in 00 :24 Administer Medi mike NaCl 0.9% over 2.5 Branch (NS) 250 mL Hours, infusion First dose on 11/07/21 at 1245 digoxin No .5mg 500 mcg Univer s (LANOXIN) 11-07 (0.5 mg), ity of injection 18:45: 18:28 Intravenou [place] 500 mcg 00 :00 s, ONCE, 1 Medica l dose, On Branch 11/07/21 at 1245, Routine ascorbic Yes 1000mg [Order 1 Uni vers acid 11-07 Start] ity of (vitamin C) 18:30: Name: [place] (VITAMIN C) 00 ascorbic Medi mike tablet acid Branch 1,000 mg (vitamin C) (VITAMIN C) tablet 1,000 mg Signed Summary: 1,000 mg, Oral, BID, First dose on 11/07/21 at 1230, Until Discontinu ed, Routine [Order 1 End] [Order 2 Start] Name: cholecalci ferol (vitamin D3) tablet 2,000 Units Signed Summary: 2,000 Units, Oral, BID, First dose on 11/07/21 at 1230, Until Discontinu ed, Routine [Order 2 End] [Order 3 Start] Name: zinc sulfate (ORAZINC) capsule 220 mg Signed Summary: 220 mg, Oral, DAILY, First dose on 11/07/21 at 1230, Until Discontinu ed, Routine [Order 3 End] [Order 4 Start] Name: thiamine (VITAMIN B1) tablet 100 mg Signed Summary: 100 mg, Oral, DAILY, First dose on 11/07/21 at 1230, Until Discontinu ed, Routine [Order 4 End] [Order 5 Start] Name: multivitam in tablet 1 tablet Signed Summary: 1 tablet, Oral, DAILY, First dose on 11/08/21 at 0900, Until Discontinu ed, Routine [Order 5 End] metoprolol 2021- No 25mg 25 mg, Univ ers tartrate 11-0708 Oral, Q8H, ity of (LOPRESSOR) 18:30: 20:58 First dose [place] tablet 25 00 :06 on Sun Medical mg 11/07/21 at Branch 1230, Until Discontinu ed, Routine sulfur 2021- No [id number] 5mL 5 mL, Unive rs hexafluorid 11-07 Intravenou i ty of e microsphr 15:30: 15:30 s, ONCE, 1 [place] (LUMASON) 00 :00 dose, On Medica l injection 5 11/07/21 Br anch mL at 0930, Routine
maintenance team member approving Restricted medication : MOHIT JAEGER aspirin Yes 81mg 81 mg, Univers chewable 11-07 Oral, ity of tablet 81 15:00: DAILY, [place] mg 00 First dose Medical on Sun Branch 11/07/21 at 0900, Until Discontinu ed, Routine enoxaparin 2021- No 1mg/kg 129 mg Un monalisa (LOVENOX) 11-0706 (rounded ity o f injection 15:00: 18:25 from 131.5 [place] 129 mg 00 :57 mg = 1 Medical mg/kg Branch ?131.5 kg), Subcutaneo us, DAILY, First dose (after last modificati on) on 11/07/21 at 0900, Until Discontinu ed, Routine HYDROcodone Yes 1{tbl} 1 tablet, Univers -acetaminop 2 Oral, ity of hen (NORCO) 12:25: Q6HPRN, Scar as 10-325 mg 02 Starting Medica l tablet 1 on Sun Branch tablet 11/07/21 at 0625, Until Discontinu ed, Routine, Pain (scale 7-10) albuterol Yes 2{puff} 2 Puff, Un monalisa (VENTOLIN) 2-06 Inhalation ity of inhaler 2 04:48: , Q6HPRN, Scar as Puff 58 Starting Medical on Sat Branch 11/06/21 at 2248, Until Discontinu ed, Routine, Wheezing, Shortness of Breath diltiazem 2021- No 20mg 20 mg, Unive rs (CARDIZEM 11-07 02-06 Slow IV ity of IV) 03:30: 02:48 Push, [place] injection 00 :00 ONCE, 1 Medical 20 mg dose, On Branch 11/06/21 at 2130, Routine
maintenance team member approving Restricted medication : MOHIT JAEGER diltiazem 2021- No 2.5mg/h 2.5-15 Un monalisa (CARDIZEM 11-07 02-08 mg/hr ity of IV) 125 mg 03:19: 21:02 (2.5-15 Scar as in D5W 28 :31 mL/hr), IV Medical infusion Infusion, Branch TITRATE, HR < 110, Starting on 11/06/21 at 2119
Initiate infusion at 2.5 mg/hr. Titrate by 2.5 mg/hr every 5 minutes to 15 minutes as needed to achieve and maintain goal heart rate. Maximum dose = 15 mg/hr. If goal not maintained at maximum allowed dose, contact prescriber .
cefTRIAXone 2021- No 1000mg 1,000 mg, Univers (ROCEPHIN) 11-07 02-07 IV ity of 1,000 mg in 02:00: 18:04 Piggyback, [place] NaCl 0.9% 00 :04 Q24H ABX, Medic al (NS) 50 mL First dose [facility] MINI-BAG on 11/06/21 at 2000, Until Discontinu ed, Administer over 30 Minutes, 50 mL
Reas on for Anti-Infec tive: Empiric Therapy for Suspected Infection< br>Empiric Therapy Site: Urine
D uration of therapy: 72 hours acetaminoph Yes 650mg 650 mg, Un monalisa en 06 Oral, ity of (TYLENOL) 00:47: Q6HPRN, [place] tablet 650 46 Starting Medic al mg on Sat Branch 11/06/21 at 1847, Until Discontinu ed, Routine, Pain (scale 1-3) NaCl 0.9% 2021- No 500mL at 999 Univ ers (NS) bolus 2 02-05 mL/hr, 500 it y of infusion 22:00: 22:40 mL, IV [place] 500 mL 00 :00 Infusion, Medical ONCE, 1 Branch dose, On 11/06/21 at 1600, STAT TRAMADOL 50 2021- No TAKE 1 Uni vers mg tablet 12-19 TABLET BY ity of 00:00: 00:00 MOUTH [place] 00 :00 EVERY 6 Medical HOURS Branch NEEDED FOR PAIN cyclobenzap 2014-10- No Unive rs rine 10-26 02-05 ity of (FLEXERIL) 00:00: 00:00 [place] 10 mg 00 :00 Medical tablet Branch gabapentin 2014-10- No Univer s (NEURONTIN) 10-21-08 ity of 600 mg 00:00: 00:00 [place] tablet 00 :00 Medical Branch metolazone 2014-10- No Univer s (ZAROXOLYN 10-18-05 ity of 2.5MG) 2.5 00:00: 00:00 [place] mg tablet 00 :00 Medical Branch methocarbam 2014-10 No Unive rs ol 10-04 02-05 ity of (ROBAXIN) 00:00: 00:00 [place] 750 mg 00 :00 Medical tablet Branch Vital Signs Vital Name Observation Time Observation Value Comments Source Systolic blood 2021-11-11 18:00:00 114 mm[Hg] Univer sity of pressure [facility] Diastolic blood 2021-11-11 18:00:00 65 mm[Hg] Unive rsity of pressure [facility] Heart rate 2021-11-11 18:00:00 80 /min Universi ty of [facility] Respiratory rate 2021-11-11 18:00:00 18 /min [facility] Oxygen saturation in 2021-11-11 18:00:00 90 /min [facility] Arterial blood by [facility] Pulse oximetry [place] Body temperature 2021-11-11 17:00:00 36.67 Louise [facility] Body weight 2021-11-10 09:12:00 143.473 kg [facility] BMI 2021-11-10 09:12:00 52.64 kg/m2 [facility] Body height 2021-11-08 14:00:00 165.1 cm [facility] Procedures Procedure Date / Time Performing Clinician Source Performed EXTERNAL PROVIDER RECORDS 2021-11-24 06:01:00 Doctor Unassigned, [facility] [place] [facility] COMP. METABOLIC PANEL 2021-11-11 08:10:00 Adolfo Armstrong [facility] ([id number]) [facility] CBC WITH DIFF 2021-11-11 08:10:00 Patti scott [facility] N-TERMINAL PRO-BNP 2021-11-11 08:10:00 Adolfo Armstrong [facility] XR CHEST 1 VW 2021-11-10 19:51:47 Jennifer Mccormick [facility] ACUTE CARE ARTERIAL BLOOD 2021-11-10 16:50:00 [facility] PHOSPHORUS 2021-11-10 12:52:00 Adolfo Armstrong [facility] MAGNESIUM 2021-11-10 12:52:00 Adolfo Armstrong [facility] COMP. METABOLIC PANEL 2021-11-10 12:52:00 Adolfo Armstrong [facility] ([id number]) [facility] CBC WITH DIFF 2021-11-10 12:52:00 Patti scott [facility] N-TERMINAL PRO-BNP 2021-11-10 12:52:00 Adolfo Armstrong [facility] VITAMIN B12, LEVEL 2021-11-09 22:51:00 Adolfo Armstrong [facility] IRON PANEL 2021-11-09 22:51:00 Patti scott [facility] PROTHROMBIN TIME / INR 2021-11-09 22:51:00 Patti scott [facility] VITAMIN D, 25-OH 2021-11-09 22:51:00 Patti [facility] PROCALCITONIN 2021-11-09 22:51:00 [facility] PHOSPHORUS 2021-11-09 09:39:[address] [facility] MAGNESIUM 2021-11-09 09:39:00 [facility]IC [facility] 2021-11-09 09:39:00 [facility] (NA, K, CL, CO2, GLUCOSE, Medica l Branch BUN, CREATININE, CA) N-TERMINAL PRO-BNP 2021-11-09 09:39:00 [facility] [place] [facility] (TTE) 2021-11-07 14:31:00 Doug Spivey [facility] COMPLETE W/ CONTRAST Medical [facility] PHOSPHORUS 2021-11-07 10:09:[address] [facility] MAGNESIUM 2021-11-07 10:09:[address] [facility] C-REACTIVE PROTEIN 2021-11-07 10:09:00 Janay [facility] TROPONIN I 2021-11-07 10:09:00 Mohit Jaeger [facility] COMP. METABOLIC PANEL 2021-11-07 10:09:00 Janay [facility] ([id number]) [facility] LIPID PANEL ([id number])(TOTAL 2021-11-07 10:09:00 Mohit Jaeger.H Cris [facility] CHOLESTEROL, [facility] TRIGLYCERIDES, HDL) CBC WITH DIFF 2021-11-07 10:09:[address] [facility] N-TERMINAL PRO-BNP 2021-11-07 10:09:00 [facility]it [facility] HEAD WO CONTRAST 2021-11-07 08:44:06 [facility]ay [facility] POCT GLUCOSE (AUTOMATED) 2021-11-07 03:45:00 Doug Spivey [facility] URINE DRUG (IMMUNOASSAY) 2021-11-07 02:22:00 Ochoa Gustafson [facility] COMPREHENSIVE DRUG [facility] SCREEN URINE DRUG (LCMSMS) - 2021-11-07 02:22:00 Janay [facility] OPIATES PANEL [facility] URINE DRUG (LCMSMS) - 2021-11-07 02:22:00 Janay [facility] SYNTHETIC OPIATES PANEL [facility] HB ECG ROUTINE & RHYTHM 2021-11-06 22:47:06 Mattie Thapa [facility] STRIP [facility] COVID-19 (ID NOW RAPID 2021-11-06 22:38:00 Mattie Thapa [facility] TESTING) Medical Branch LAB ONLY COVID 2021-11-06 22:38:00 Mattie Thapa [facility] INTERPRETATION [facility] MISCELLANEOUS CULTURE 2021-11-06 21:15:00 Mattie Thapa [facility] URINALYSIS 2021-11-06 21:09:00 Mattie Thapa [facility] URINE CULTURE 2021-11-06 21:08:00 Mattie Thapa [facility] XR CHEST 1 VW 2021-11-06 20:59:57 Mattie Thapa [facility] BLOOD CULTURE SCREEN 2021-11-06 20:26:[address] [facility] FERRITIN SERUM 2021-11-06 20:26:00 Janay [facility] THYROID STIMULATING 2021-11-06 20:26:00 Janay [facility] HORMONE [facility] COMP. METABOLIC PANEL 2021-11-06 20:26:00 Mattie Thapa [facility] ([id number]) [facility] IRON PANEL 2021-11-06 20:26:00 Doug Spivey [facility] CBC WITH DIFF 2021-11-06 20:26:00 Mattie Thapa [facility] GLYCOSYLATED HEMOGLOBIN 2021-11-06 20:26:00 Ochoa Gustafson [facility] (A1C) [facility] LACTIC ACID WHOLE BLOOD 2021-11-06 20:25:00 Mattie Thapa [facility] EMERGENCY SERVICES 2021-11-06 06:01:00 Doctor Leon, [facility] AGREEMENTS AND [place] Medical Branch AUTHORIZATIONS HOSPITAL ADMISSION MISC - 2021-11-06 06:01:00 Doctor Leon, [facility] MEDICARE PATIENTS RIGHTS [place] [facility] Branch IMPORTANT MESSAGE [U] XRAY FEMUR 2 VWS LEFT 2018-11-30 00:00:00 [facility] [id number] [U] XRAY KNEE 1 OR 2 VWS 2018-11-13 00:00:00 [facility] RIGHT [id number] [U] XRAY ANKLE MIN 3 VWS 2018-11-13 00:00:00 [facility] RIGHT [id number] [U] XRAY FEMUR 2 VWS LEFT 2018-11-06 00:00:00 [facility] [id number] [U] XRAY FEMUR 2 VWS LEFT 2018-10-31 00:00:00 [facility] [id number] [U] XRAY FEMUR 2 VWS LEFT 2018-10-26 00:00:00 [facility] [id number] Encounters Start End Encounter Admission Attending Care Care Encounter Source Date/Time Date/Time Type Type Clinicians Facility Department ID 2021-11-24 2021-11-24 Orders Doctor LEAVITT [id number] Univers 00:00:00 00:00:00 Only Unassigned, MINDY [id number] ity of [place] [facility] 4.2.7.2.686 Scar as [id number] [facility] 009 Branch 2021-11-12 2021-11-12 Transition BISHOP Roper [id number] Univers 00:00:00 00:00:00 of Care Arnulfo DYKES [id number] [place] [id number] [facility] 403 Branch 2021-11-06 2021-11-11 Hospital Mattie Thapa [facility] [id number] Univers 13:33:00 14:37:00 Encounter Doug Spivey [id number] ity of Aditi Mary 4.2.7.2.686 [facility] [id number] [facility] 080 Branch 2021-11-06 2021-11-11 Inpatient X [facility] [id number] Univers 13:33:00 14:37:00 ADITI [facility] 2018-12-11 2018-12-11 Appointmen DERECK [facility] Orthopedics [id number] [place] 12:00:00 12:00:00 t; FLASH HARDEN P.A. Physici JEANA, ans P.A. 2018-11-13 2018-11-13 Appointmen DERECK [facility] Orthopedics [id number] [place] 12:00:00 12:00:00 t; FLASH HARDEN P.A. Physici JEANA, ans P.A. 2018-11-06 2018-11-06 Appointmen DAGMAR HARDIN [facility] Orthopedics [id number] [place] 10:45:00 10:45:00 t; Reinier HARDIN Physi tej LEAVITT M.D. ans 2018-10-05 2018-10-05 [facility] [id number] [place] 10:45:00 10:45:00 t; FLASH HARDEN P.A. Physici JEANA, ans P.A. Results Test Description Test Time Test Comments Results Result Comments Source N-TERMINAL PRO-BNP 2021-11-11 09:23:09 Test Item Value Reference Range Interpretation Comme nts NT-proBNP (test code = 5100 pg/mL See_Comment H [Aut omated message] The 3150817263) system which ge nerated this result tra nsmitted reference range : <=450. The reference r bharti was not used to int erpret this result as zaida l/abnormal. JEAN-PIERRE (test code = JEAN-PIERRE) Biotin has been reported to cause a negative bias, interpret results relative to patient's use of biotin. Lab Interpretation (test Abnormal code = 27026-6) [facility]. METABOLIC PANEL ([id number])2021-11-11 09:14:47 Test Item Value Reference Range Interpretation Comments NA (test code = 139 mmol/L 135-145 9710830977) K (test code = 3.2 mmol/L 3.5-5.0 L 0664299294) CL (test code = 103 mmol/L 98-108 6144652517) CO2 TOTAL (test code = 31 mmol/L 23-31 9615759074) AGAP (test code = 2-16 7136471440) BUN (test code = 14 mg/dL 7-23 3340130008) GLUCOSE (test code = 141 mg/dL 70-110 H 0756729905) CREATININE (test code = 0.76 mg/dL 0.50-1.04 9095109129) TOTAL BILI (test code = 0.4 mg/dL 0.1-1.6 1177527008) CALCIUM (test code = 9.2 mg/dL 8.6-10.6 7807299584) T PROTEIN (test code = 6.3 g/dL 6.3-8.2 0959634373) ALBUMIN (test code = 3.4 g/dL 3.5-5.0 L 7304295516) ALK PHOS (test code = 141 U/L 34-122 H 6621272858) ALTv (test code = 11 U/L 5-35 1742-6) AST(SGOT) (test code = 17 U/L 13-40 1670153494) eGFR (test code = mL/min/1.73m2 6391298970) JEAN-PIERRE (test code = JEAN-PIERRE) Association of Glomerular Filtration Rate (GFR) and Staging of Kidney Disease* + --+ --+ ------+| GFR (mL/min/1.73 m2) ?| With Kidney Damage ?| ?Without Kidney Damage+ --------+ --------+ +| ?>90 ?| ?Stage one ?| ? Normal ?+ ---+ ---+ -------+| ?60-89 ?| ?Stage two ?| ? Decreased GFR ? + --+ --+ ------+| ?30-59 ?| ?Stage three ?| ? Stage three ? + --+ --+ ------+| ?15-29 ?| ?Stage four ? | ? Stage four ?+ ---+ ---+ -------+| ?<15 (or dialysis) ? ?| ?Stage five ? | ? Stage five ?+ ---+ ---+ -------+ *Each stage assumes the associated GFR level has been in effect for at least three months. ?Stages 1 to 5, with or without kidney disease, indicate chronic kidney disease. Notes: Determination of stages one and two (with eGFR >59mL/min/1.73 m2) requires estimation of kidney damage for at least three months as defined by structural or functional abnormalities of the kidney, manifested by either:Pathological abnormalities or Markers of kidney damage (including abnormalities in the composition of the blood or urine or abnormalities in imaging tests). Lab Interpretation Abnormal (test code = 68221-8) [facility] WITH [id number] 09:07:25 Test Item Value Reference Range Interpretation Comments WBC (test code = See_Comment [Automated 6690-2) message] The sy stem which generated this result transmitted reference range : 4.30 - 11.10 10*3/?L. The reference range was not used to interpret this result as normal/abnormal . RBC (test code = See_Comment L [Automated 789-8) message] The sy stem which generated this result transmitted reference range : 3.93 - 5.25 10*6/?L. The reference range was not used to interpret this result as normal/abnormal . HGB (test code = 9.5 g/dL 11.6-15.0 L 718-7) HCT (test code = 31.5 % 35.7-45.2 L 4544-3) MCV (test code = 91.6 fL 80.6-95.5 787-2) MCH (test code = 27.6 pg 25.9-32.8 785-6) MCHC (test code = 30.2 g/dL 31.6-35.1 L 786-4) RDW-SD (test code = 61.1 fL 39.0-49.9 H 92558-3) RDW-CV (test code = 18.8 % 12.0-15.5 H 788-0) PLT (test code = See_Comment L [Automated 777-3) message] The sy stem which generated this result transmitted reference range : 166 - 358 10*3/ ?L. The reference r bharti was not used to interpret this result as normal/abnormal . MPV (test code = 9.5 fL 9.5-12.9 98882-1) IPF % (test code = 1.2 % 1.3-7.7 L Platelet count 4262987515) measured by fluorescence method. NRBC/100 WBC (test See_Comment [Automat ed code = 9709860228) message] The system which generated this result transmitted reference range : 0.0 - 10.0 /100 WBCs. The refer ence range was not u sed to interpret th is result as normal/abnormal . NRBC x10^3 (test code <0.01 See_Comment [Auto mated = 5949384918) message] The s ystem which generated this result transmitted reference range : 10*3/?L. The reference range was not used to interpret this result as normal/abnormal . GRAN MAT (NEUT) % 71.3 % (test code = 770-8) IMM GRAN % (test code 0.30 % = 7580336903) LYMPH % (test code = 17.0 % 736-9) MONO % (test code = 7.0 % 5905-5) EOS % (test code = 4.1 % 713-8) BASO % (test code = 0.3 % 706-2) GRAN MAT x10^3(ANC) 4.50 10*3/uL 1.88-7.09 (test code = 2497403390) IMM GRAN x10^3 (test <0.03 0.00-0.06 code = 4507173100) LYMPH x10^3 (test code 1.07 10*3/uL 1.32-3.29 L = 731-0) MONO x10^3 (test code 0.44 10*3/uL 0.33-0.92 = 742-7) EOS x10^3 (test code = 0.26 10*3/uL 0.03-0.39 711-2) BASO x10^3 (test code <0.03 0.01-0.07 = 704-7) Lab Interpretation Abnormal (test code = 58216-2) [facility].2021-11-10 16:53:46 Test Item Value Reference Range Interpretation Comments PH (test code = 2) 7.35-7.45 PCO2 (test code = See_Comment H [Automate d message] 6560187585) The system [employer] generated this result transmitted ref erence range: 35 - 45 mmHg. The reference r bharti was not used to interpret this result as normal/abnor mal. PO2 (test code = See_Comment H [Automated message] 8223885358) The system [employer] generated this result transmitted ref erence range: 80 - 100 mmHg. The reference r bharti was not used to interpret this result as normal/abnor mal. HCO3 (test code = See_Comment H [Automate d message] 4112454859) The system [employer] generated this result transmitted ref erence range: 22 - 26 mEq/L. The reference r bharti was not used to interpret this result as normal/abnor mal. BE (test code = See_Comment [Automated message] 2242618286) The system [employer] generated this result transmitted ref erence range: -3.0 - 3 .0 mEq/L. The refe rence range was not u sed to interpret this result as normal/abnor mal. Lab Interpretation (test Abnormal code = 30100-6) [facility] [id number] 13:39:20 Test Item Value Reference Range Interpretation Comments NT-proBNP (test code 8330 pg/mL See_Comment H [Autom ated = 0611128772) message] The system which generated this result transmitted reference range : <=450. The reference range was not used to interpret this result as normal/abnormal . JEAN-PIERRE (test code = JEAN-PIERRE) Biotin has been reported to cause a negative bias, interpret results relative to patient's use of biotin. Lab Interpretation Abnormal (test code = 67527-4) [facility] 13:31:42 Test Item Value Reference Range Interpretation Comments MAGNESIUM (test code = 5009997015) 1.6 mg/dL 1.7-2.4 L Lab Interpretation (test code = Abnormal 58662-7) [facility]. METABOLIC PANEL ([id number])2021-11-10 13:31:22 Test Item Value Reference Range Interpretation Comments NA (test code = 137 mmol/L 135-145 8665160586) K (test code = 3.8 mmol/L 3.5-5.0 8183983118) CL (test code = 104 mmol/L 98-108 3399100885) CO2 TOTAL (test code = 29 mmol/L 23-31 4188403906) AGAP (test code = 2-16 2897043627) BUN (test code = 11 mg/dL 7-23 5288563604) GLUCOSE (test code = 124 mg/dL 70-110 H 2558718393) CREATININE (test code = 0.71 mg/dL 0.50-1.04 7522952487) TOTAL BILI (test code = 0.5 mg/dL 0.1-1.1 4920292940) CALCIUM (test code = 8.8 mg/dL 8.6-10.6 3979185906) T PROTEIN (test code = 6.1 g/dL 6.3-8.2 L 3229575881) ALBUMIN (test code = 3.2 g/dL 3.5-5.0 L 8305913750) ALK PHOS (test code = 133 U/L 34-122 H 7251825320) ALTv (test code = 11 U/L 5-35 2-6) AST(SGOT) (test code = 26 U/L 13-40 3806016735) eGFR (test code = mL/min/1.73m2 2995350610) JEAN-PIERRE (test code = JEAN-PIERRE) Association of Glomerular Filtration Rate (GFR) and Staging of Kidney Disease* + --+ --+ ------+| GFR (mL/min/1.73 m2) ?| With Kidney Damage ?| ?Without Kidney Damage+ --------+ --------+ +| ?>90 ?| ?Stage one ?| ? Normal ?+ ---+ ---+ -------+| ?60-89 ?| ?Stage two ?| ? Decreased GFR ? + --+ --+ ------+| ?30-59 ?| ?Stage three ?| ? Stage three ? + --+ --+ ------+| ?15-29 ?| ?Stage four ? | ? Stage four ?+ ---+ ---+ -------+| ?<15 (or dialysis) ? ?| ?Stage five ? | ? Stage five ?+ ---+ ---+ -------+ *Each stage assumes the associated GFR level has been in effect for at least three months. ?Stages 1 to 5, with or without kidney disease, indicate chronic kidney disease. Notes: Determination of stages one and two (with eGFR >59mL/min/1.73 m2) requires estimation of kidney damage for at least three months as defined by structural or functional abnormalities of the kidney, manifested by either:Pathological abnormalities or Markers of kidney damage (including abnormalities in the composition of the blood or urine or abnormalities in imaging tests). Lab Interpretation Abnormal (test code = 64807-1) [facility] 13:31:02 Test Item Value Reference Range Interpretation Comments PHOSPHORUS (test code = 5827605183) 3.5 mg/dL 2.5-5.0 Lab Interpretation (test code = Normal 76256-7) [facility] WITH [id number] 13:06:17 Test Item Value Reference Range Interpretation Comments WBC (test code = See_Comment [Automated 6690-2) message] The sy stem which generated this result transmitted reference range : 4.30 - 11.10 10*3/?L. The reference range was not used to interpret this result as normal/abnormal . RBC (test code = See_Comment L [Automated 789-8) message] The sy stem which generated this result transmitted reference range : 3.93 - 5.25 10*6/?L. The reference range was not used to interpret this result as normal/abnormal . HGB (test code = 9.2 g/dL 11.6-15.0 L 718-7) HCT (test code = 29.9 % 35.7-45.2 L 4544-3) MCV (test code = 90.6 fL 80.6-95.5 787-2) MCH (test code = 27.9 pg 25.9-32.8 785-6) MCHC (test code = 30.8 g/dL 31.6-35.1 L 786-4) RDW-SD (test code = 59.9 fL 39.0-49.9 H 46753-9) RDW-CV (test code = 18.6 % 12.0-15.5 H 788-0) PLT (test code = See_Comment L [Automated 777-3) message] The sy stem which generated this result transmitted reference range : 166 - 358 10*3/ ?L. The reference r bharti was not used to interpret this result as normal/abnormal . MPV (test code = 9.6 fL 9.5-12.9 97995-3) NRBC/100 WBC (test See_Comment [Automat ed code = 9945202859) message] The system which generated this result transmitted reference range : 0.0 - 10.0 /100 WBCs. The refer ence range was not u sed to interpret th is result as normal/abnormal . NRBC x10^3 (test code See_Comment [Auto mated = 7447003723) message] The s ystem which generated this result transmitted reference range : 10*3/?L. The reference range was not used to interpret this result as normal/abnormal . GRAN MAT (NEUT) % 67.6 % (test code = 770-8) IMM GRAN % (test code 0.80 % = 0088905021) LYMPH % (test code = 20.6 % 736-9) MONO % (test code = 6.4 % 5905-5) EOS % (test code = 4.3 % 713-8) BASO % (test code = 0.3 % 706-2) GRAN MAT x10^3(ANC) 4.09 10*3/uL 1.88-7.09 (test code = 4827344882) IMM GRAN x10^3 (test 0.05 10*3/uL 0.00-0.06 code = 6426798842) LYMPH x10^3 (test code 1.25 10*3/uL 1.32-3.29 L = 731-0) MONO x10^3 (test code 0.39 10*3/uL 0.33-0.92 = 742-7) EOS x10^3 (test code = 0.26 10*3/uL 0.03-0.39 711-2) BASO x10^3 (test code <0.03 0.01-0.07 = 704-7) Lab Interpretation Abnormal (test code = 59137-6) [facility], [id number] 09:17:51 Test Item Value Reference Range Interpretation Comments VIT D 25OH (test code = 30 ng/mL 25-80 28817-2) JEAN-PIERRE (test code = JEAN-PIERRE) Deficiency: <20 ng/mLInsufficiency : 20-24 ng/mLOptimal: 25-80 ng/mL Lab Interpretation (test Normal code = 99215-3) [facility] B12, [id number] 08:17:53 Test Item Value Reference Range Interpretation Comments VIT B12 (test code = >1000 240-930 H 7948986212) JEAN-PIERRE (test code = JEAN-PIERRE) Biotin has been reported to cause a positive bias, interpret results relative to patient's use of biotin. Lab Interpretation (test Abnormal code = 50789-0) [facility]-09 07:15:44 Test Item Value Reference Range Interpretation Comments Procalcitonin (test 0.03 ng/mL <0.07 code = 4619965272) JEAN-PIERRE (test code = JEAN-PIERRE) INTERPRETATION OF PROCALCITONIN RESULTS IN ADULTS >= 18 YEARS OF AGE Initiation and discontinuation of antibiotics on patients with suspected or confirmed Lower Respiratory Tract Infection in Adults >= 18 years of age. + +-------- --------+ + -----+|Procalcitonin |Interpretation ?|Antibiotic ? ? |Considerations ? |ng/mL ? | ?|recommendation | ? + +-------- --------+ + -----+| <0.1 ? | Bacterial ? ? ?| Strongly ? ? ?| ? | ?| infection very | discouraged ? | Overruling: ? | ?| unlikely ? ? ? | ? | ? Clinically unstable ? ? ? + +-------- --------+ + ? High risk for adverse ? ? | <0.25 ?| Bacterial ? ? ?| Discouraged ? | ? outcome ? | ?| infection ? ? ?| ? | ? SEE IMPORTANT NOTE ?| ?| unlikely ? ? ? | ? | ? + +-------- --------+ + -----+| >=0.25 ? ? ? | Bacterial ? ? ?| Encouraged ? ?| ? | ?| infection ? ? ?| ? | ? | ?| likely ? | ? | Consider treatment failure ?+ +------- ---------+ -+ if levels does not decrease | >0.5 ? | Bacterial ? ? ?| Strongly ? ? ?| appropriately ? | ?| infection very | encouraged ? ?| ? | ?| likely ? | ? | ? + +-------- --------+ + -----+ Discontinuation of antibiotics in high-acuity patients with suspected or confirmed sepsis in Adults >= 18 years of age. + +-------- --------+ + -----+|Procalcitonin |Interpretation ?|Antibiotic ? ? |Considerations ? |ng/mL ? | ?|recommendation | ? + +-------- --------+ + -----+| <0.25 ?| Bacterial ? ? ?| Strongly ? ? ?| ? | ?| infection very | discouraged ? | Overruling: ? | ?| unlikely ? ? ? | ? | ? Clinically unstable ? ? ? + +-------- --------+ + ? High risk for adverse ? ? | <0.5 or drop | Bacterial ? ? ?| Discouraged ? | ? outcome ? | >80% from ? ?| infection ? ? ?| ? | ? SEE IMPORTANT NOTE ?| highest PCT ?| unlikely ? ? ? | ? | ? | level ?| ?| ? | ? + +-------- --------+ + -----+| >=0.5 ?| Bacterial ? ? ?| Encouraged ? ?| ? | ?| infection ? ? ?| ? | ? | ?| likely ? | ? | Consider treatment failure ?+ +------- ---------+ -+ if levels does not decrease | >1.0 ? | Bacterial ? ? ?| Strongly ? ? ?| appropriately ? | ?| infection very | encouraged ? ?| ? | ?| likely ? | ? | ? + +-------- --------+ + -----+ Percentage of drop of Procalcitonin calculation for Discontinuation of antibiotics in high-acuity patients with suspected or confirmed sepsis in Adults >= 18 years of age. ? Procalcitonin highest{}-Procalcitonin current{}Delta Procalcitonin = x100% ? Procalcitonin current {} IMPORTANT NOTE: Procalcitonin may be elevated without bacterial infection by physiologic stress related to trauma, angulo, chronic dialysis, metastatic cancer, surgery in the past seven days, malaria, some fungal infections, and some forms of vasculitis. The interpretation algorithm may not apply to patients with immunosuppression (equivalent of >10 mg of prednisone daily), HIV with CD4 cell count < 350 cells/mm3, active malignancy on systemic chemotherapy, solid organ transplant or hematopoietic stem cell transplantation, or hospital acquired pneumonia. Additionally, some clinical trials of procalcitonin have excluded patients with shock requiring vasopressor use, acute respiratory failure requiring mechanical ventilation, or those with known lung abscess/empyema. For further information please refer to:[email or web address] Lab Interpretation Normal (test code = 85592-0) [facility] [id number] 00:36:14 Test Item Value Reference Range Interpretation Comments IRON (test code = 5337076676) 35 ug/dL 50-160 L TIBC (test code = 9488178495) 255 ug/dL 250-410 % FE SAT (test code = 5686812353) 14 % 20-50 L Lab Interpretation (test code = Abnormal 32046-6) [facility] CenterPROTHROMBIN TIME / [id number] 23:27:38 Test Item Value Reference Range Interpretation Comments PROTIME PATIENT (test See_Comment H [Auto mated message] code = 5964-2) The system [email or web address] generated this result transmitted ref erence range: 12.0 - 1 4.7 Seconds. The reference range was not used to int erpret this result as normal/abnormal . INR (test code = 6301-6) Nor mal INR <1.1; Warfarin Therap eutic range 2.0 to 3. 0 or 2.5 to 3.5, dep ending upon the indica tions. Lab Interpretation (test Abnormal code = 69493-1) [facility] Center[facility]AL [id number] 11:45:52 Test Item Value Reference Range Interpretation Comments NT-proBNP (test code 7910 pg/mL See_Comment H [Autom ated = 7570602607) message] The system which generated this result transmitted reference range : <=450. The reference range was not used to interpret this result as normal/abnormal . JEAN-PIERRE (test code = JEAN-PIERRE) Biotin has been reported to cause a negative bias, interpret results relative to patient's use of biotin. Lab Interpretation Abnormal (test code = 15663-7) [facility] Center[facility]I METABOLIC PANEL (NA, K, CL, CO2, GLUCOSE, BUN, CREATININE, CA)2021-11-09 11:38:49 Test Item Value Reference Range Interpretation Comments NA (test code = 139 mmol/L 135-145 3399167513) K (test code = 3.8 mmol/L 3.5-5.0 2264566637) CL (test code = 108 mmol/L 98-108 1951879226) CO2 TOTAL (test code 26 mmol/L 23-31 = 3381927176) AGAP (test code = 2-16 0812575852) BUN (test code = 9 mg/dL 7-23 0249497079) GLUCOSE (test code = 101 mg/dL 70-110 2016933495) CREATININE (test code 0.68 mg/dL 0.50-1.04 = 2558320339) CALCIUM (test code = 9.6 mg/dL 8.6-10.6 2502406364) eGFR (test code = mL/min/1.73m2 3437060328) JEAN-PIERRE (test code = JEAN-PIERRE) Association of Glomerular Filtration Rate (GFR) and Staging of Kidney Disease* + + +- +| GFR (mL/min/1.73 m2) ?| With Kidney Damage ?| ?Without Kidney Damage+ ------+ ----+ ------+| ?>90 ?| ?Stage one ?| ? Normal ?+ -+ + -+| ?60-89 ?| ?Stage two ?| ? Decreased GFR ? + + +- +| ?30-59 ?| ?Stage three ?| ? Stage three ? + + +- +| ?15-29 ?| ?Stage four ? | ? Stage four ?+ -+ + -+| ?<15 (or dialysis) ? ?| ?Stage five ? | ? Stage five ?+ -+ + -+ *Each stage assumes the associated GFR level has been in effect for at least three months. ?Stages 1 to 5, with or without kidney disease, indicate chronic kidney disease. Notes: Determination of stages one and two (with eGFR >59mL/min/1.73 m2) requires estimation of kidney damage for at least three months as defined by structural or functional abnormalities of the kidney, manifested by either:Pathological abnormalities or Markers of kidney damage (including abnormalities in the composition of the blood or urine or abnormalities in imaging tests). [facility] CenterMAGNESIUM2022-02-08 11:38:49 Test Item Value Reference Range Interpretation Comments MAGNESIUM (test code = 1844603156) 1.8 mg/dL 1.7-2.4 Lab Interpretation (test code = Normal 01227-2) [facility] CenterPHOSPHORUS2022-02-08 11:38:29 Test Item Value Reference Range Interpretation Comments PHOSPHORUS (test code = 8762863789) 3.4 mg/dL 2.5-5.0 Lab Interpretation (test code = Normal 06236-2) [facility] CenterIR[facility] [id number] 21:02:27 Test Item Value Reference Range Interpretation Comments IRON (test code = 5166310676) 30 ug/dL 50-160 L TIBC (test code = 3917622511) 290 ug/dL 250-410 % FE SAT (test code = 2979933906) 10 % 20-50 L Lab Interpretation (test code = Abnormal 90466-0) [facility] CenterTROPONIN [id number] 20:12:01 Test Item Value Reference Interpretation Comments Range TROPONIN I (test 0.020 ng/mL See_Comment [Automated code = 9627802266) message] The system which generated this result transmitted reference range : <=0.034. The reference range was not used to interpret this result as normal/abnormal . JEAN-PIERRE (test code = Reference (Normal) JEAN-PIERRE) Range (defined by the 99th percentile reference limit): <= 0.034 ng/mL Note: Cardiac troponin begins to rise 3-4 hours after the onset of ischemia. Repeat in 4-6 hours if the sample was drawn within 3-4 hours of the onset of the symptom and found normal. Diagnosis of myocardial injury is made with acute changes in cTn concentrations with at least one serial sample above the 99th percentile upper reference limit (URL), taken together with the patient's clinical presentation. Biotin has been reported to cause a negative bias, interpret results relative to patient's use of biotin. Lab Interpretation Normal (test code = 33738-6) [facility] CenterN-[facility]MINAL [id number] 20:09:00 Test Item Value Reference Range Interpretation Comments NT-proBNP (test code 2780 pg/mL See_Comment H [Autom ated = 4116852299) message] The system which generated this result transmitted reference range : <=450. The reference range was not used to interpret this result as normal/abnormal . JEAN-PIERRE (test code = JEAN-PIERRE) Biotin has been reported to cause a negative bias, interpret results relative to patient's use of biotin. Lab Interpretation Abnormal (test code = 88457-5) [facility] CenterLIPID PANEL (48031)(TOTAL CHOLESTEROL, TRIGLYCERIDES, HDL)2021-11-07 19:59:43 Test Item Value Reference Range Interpretation Comments CHOL (test code = 78 mg/dL 120-200 L 0092868698) HDL (test code = 46 mg/dL >50 L 9774361070) HDLC RATIO (test code = See_Comment [Au tomated message] 2333421606) The system [employer] generated this result transmitted ref erence range: <=4.5. T he reference range was not used to int erpret this result as normal/abnormal . TRIG (test code = 68 mg/dL 30-170 7429173643) LDL CHOL (test code = 18 mg/dL See_Comment [Auto mated message] 06561-4) The system [employer] generated this result transmitted ref erence range: <=160. T he reference range was not used to int erpret this result as normal/abnormal . VLDL (test code = 14 mg/dL 5-60 9879137997) Lab Interpretation (test Abnormal code = 30131-3) [facility]-REACTIVE [id number] 19:09:12 Test Item Value Reference Range Interpretation Comments CRP (test code = 1894491741) 0.9 mg/dL <0.8 H Lab Interpretation (test code = Abnormal 37119-2) [facility] CenterCBC with [id number] 15:13:46 Test Item Value Reference Range Interpretation Comments WBC (test code = See_Comment [Automated 6690-2) message] The sy stem which generated this result transmitted reference range : 4.30 - 11.10 10*3/?L. The reference range was not used to interpret this result as normal/abnormal . RBC (test code = See_Comment L [Automated 789-8) message] The sy stem which generated this result transmitted reference range : 3.93 - 5.25 10*6/?L. The reference range was not used to interpret this result as normal/abnormal . HGB (test code = 8.8 g/dL 11.6-15.0 L 718-7) HCT (test code = 29.1 % 35.7-45.2 L 4544-3) MCV (test code = 91.5 fL 80.6-95.5 787-2) MCH (test code = 27.7 pg 25.9-32.8 785-6) MCHC (test code = 30.2 g/dL 31.6-35.1 L 786-4) RDW-SD (test code = 59.0 fL 39.0-49.9 H 73290-0) RDW-CV (test code = 17.6 % 12.0-15.5 H 788-0) PLT (test code = See_Comment L [Automated 777-3) message] The sy stem which generated this result transmitted reference range : 166 - 358 10*3/ ?L. The reference r bharti was not used to interpret this result as normal/abnormal . MPV (test code = 10.1 fL 9.5-12.9 51615-8) IPF % (test code = 1.2 % 1.3-7.7 L Platelet count 0605456052) measured by fluorescence method. NRBC/100 WBC (test See_Comment [Automat ed code = 8839300982) message] The system which generated this result transmitted reference range : 0.0 - 10.0 /100 WBCs. The refer ence range was not u sed to interpret th is result as normal/abnormal . NRBC x10^3 (test code <0.01 See_Comment [Auto mated = 7830324498) message] The s ystem which generated this result transmitted reference range : 10*3/?L. The reference range was not used to interpret this result as normal/abnormal . GRAN MAT (NEUT) % 54.7 % (test code = 770-8) IMM GRAN % (test code 0.40 % = 9764943581) LYMPH % (test code = 33.1 % 736-9) MONO % (test code = 6.9 % 5905-5) EOS % (test code = 4.4 % 713-8) BASO % (test code = 0.5 % 706-2) GRAN MAT x10^3(ANC) 3.09 10*3/uL 1.88-7.09 (test code = 4807811194) IMM GRAN x10^3 (test <0.03 0.00-0.06 code = 3534557118) LYMPH x10^3 (test code 1.87 10*3/uL 1.32-3.29 = 731-0) MONO x10^3 (test code 0.39 10*3/uL 0.33-0.92 = 742-7) EOS x10^3 (test code = 0.25 10*3/uL 0.03-0.39 711-2) BASO x10^3 (test code 0.03 10*3/uL 0.01-0.07 = 704-7) POLYCHROMASIA (test 2+ See_Comment [Automa bouchra code = 59832-8) message] The system which generated this result transmitted reference range : 2+. The referen ce range was not u sed to interpret th is result as normal/abnormal . SPHEROCYTES (test code 1+ A = 802-9) PLT ESTIMATE (test Decreased Normal A code = 9317-9) Lab Interpretation Abnormal (test code = 87897-9) [facility] CenterMagnesium [id number] 13:23:21 Test Item Value Reference Range Interpretation Comments MAGNESIUM (test code = 3775799623) 1.7 mg/dL 1.7-2.4 Lab Interpretation (test code = Normal 10522-7) [facility]. METABOLIC PANEL (98826)2021-11-07 13:23:01 Test Item Value Reference Range Interpretation Comments NA (test code = 139 mmol/L 135-145 5781704048) K (test code = 4.0 mmol/L 3.5-5.0 3290167550) CL (test code = 109 mmol/L 98-108 H 4411556367) CO2 TOTAL (test code = 27 mmol/L 23-31 1269546434) AGAP (test code = 2-16 9062979203) BUN (test code = 7 mg/dL 7-23 0130054237) GLUCOSE (test code = 105 mg/dL 70-110 8307674429) CREATININE (test code = 0.69 mg/dL 0.50-1.04 2429925737) TOTAL BILI (test code = 0.5 mg/dL 0.1-1.9 3721848347) CALCIUM (test code = 9.7 mg/dL 8.6-10.6 4524471059) T PROTEIN (test code = 6.0 g/dL 6.3-8.2 L 0605210935) ALBUMIN (test code = 3.3 g/dL 3.5-5.0 L 7255790428) ALK PHOS (test code = 144 U/L 34-122 H 4944940699) ALTv (test code = 13 U/L 5-35 1742-6) AST(SGOT) (test code = 21 U/L 13-40 1649941828) eGFR (test code = mL/min/1.73m2 4287864395) JEAN-PIERRE (test code = JEAN-PIERRE) Association of Glomerular Filtration Rate (GFR) and Staging of Kidney Disease* + --+ --+ ------+| GFR (mL/min/1.73 m2) ?| With Kidney Damage ?| ?Without Kidney Damage+ --------+ --------+ +| ?>90 ?| ?Stage one ?| ? Normal ?+ ---+ ---+ -------+| ?60-89 ?| ?Stage two ?| ? Decreased GFR ? + --+ --+ ------+| ?30-59 ?| ?Stage three ?| ? Stage three ? + --+ --+ ------+| ?15-29 ?| ?Stage four ? | ? Stage four ?+ ---+ ---+ -------+| ?<15 (or dialysis) ? ?| ?Stage five ? | ? Stage five ?+ ---+ ---+ -------+ *Each stage assumes the associated GFR level has been in effect for at least three months. ?Stages 1 to 5, with or without kidney disease, indicate chronic kidney disease. Notes: Determination of stages one and two (with eGFR >59mL/min/1.73 m2) requires estimation of kidney damage for at least three months as defined by structural or functional abnormalities of the kidney, manifested by either:Pathological abnormalities or Markers of kidney damage (including abnormalities in the composition of the blood or urine or abnormalities in imaging tests). Lab Interpretation Abnormal (test code = 00550-3) [facility] CenterPhosphorus [id number] 13:22:41 Test Item Value Reference Range Interpretation Comments PHOSPHORUS (test code = 7747777286) 2.0 mg/dL 2.5-5.0 L Lab Interpretation (test code = Abnormal 90856-6) [facility] CenterPOCT GLUCOSE (AUTOMATED)2021-11-07 08:20:04 Test Item Value Reference Range Interpretation Comments POCT GLU (test code = 0752264125) 103 mg/dL 70-110 Lab Interpretation (test code = Normal 43152-0) [facility] CenterFERRITIN [id number] 03:00:42 Test Item Value Reference Range Interpretation Comments FERRITIN (test code = 12.4 ng/mL 11.0-264.0 0214693223) JEAN-PIERRE (test code = JEAN-PIERRE) Biotin has been reported to cause a negative bias, interpret results relative to patient's use of biotin. Lab Interpretation (test Normal code = 98404-5) [facility] CenterTHYROID STIMULATING [id number] 02:56:21 Test Item Value Reference Range Interpretation Comments TSH (test code = See_Comment [Automated message] 1966276812) The system [employer] generated this result transmitted ref erence range: 0.45 - 4 .70 mIU/L. The refe rence range was not u sed to interpret this result as normal/abnor mal. Lab Interpretation (test Normal code = 31658-2) [facility] CenterGLYCOSYLATED HEMOGLOBIN (A1C)2021-11-07 02:29:47 Test Item Value Reference Range Interpretation Comments HGB A1C (test code = 5.1 % 4.0-5.7 4548-4) JEAN-PIERRE (test code = JEAN-PIERRE) Reference RangesNormal: <5.7%Prediabetes: 5.7 - 6.4%Diabetes: > 6.5% Lab Interpretation (test Normal code = 08138-7) [facility] CenterCOMP. Metabolic Panel (67369)2021-11-06 20:57:43 Test Item Value Reference Range Interpretation Comments NA (test code = 140 mmol/L 135-145 3022537986) K (test code = 4.0 mmol/L 3.5-5.0 1696679482) CL (test code = 106 mmol/L 98-108 0862971147) CO2 TOTAL (test code = 31 mmol/L 23-31 5586064386) AGAP (test code = 2-16 8078659876) BUN (test code = 8 mg/dL 7-23 3402189616) GLUCOSE (test code = 117 mg/dL 70-110 H 9677818856) CREATININE (test code = 0.83 mg/dL 0.50-1.04 0308153377) TOTAL BILI (test code = 0.5 mg/dL 0.1-1.8 0340210395) CALCIUM (test code = 10.0 mg/dL 8.6-10.6 5256000588) T PROTEIN (test code = 5.8 g/dL 6.3-8.2 L 9694342608) ALBUMIN (test code = 3.3 g/dL 3.5-5.0 L 3720603710) ALK PHOS (test code = 141 U/L 34-122 H 2180831971) ALTv (test code = 13 U/L 5-35 1742-6) AST(SGOT) (test code = 21 U/L 13-40 5249572799) eGFR (test code = mL/min/1.73m2 0688058127) JEAN-PIERRE (test code = JEAN-PIERRE) Association of Glomerular Filtration Rate (GFR) and Staging of Kidney Disease* + --+ --+ ------+| GFR (mL/min/1.73 m2) ?| With Kidney Damage ?| ?Without Kidney Damage+ --------+ --------+ +| ?>90 ?| ?Stage one ?| ? Normal ?+ ---+ ---+ -------+| ?60-89 ?| ?Stage two ?| ? Decreased GFR ? + --+ --+ ------+| ?30-59 ?| ?Stage three ?| ? Stage three ? + --+ --+ ------+| ?15-29 ?| ?Stage four ? | ? Stage four ?+ ---+ ---+ -------+| ?<15 (or dialysis) ? ?| ?Stage five ? | ? Stage five ?+ ---+ ---+ -------+ *Each stage assumes the associated GFR level has been in effect for at least three months. ?Stages 1 to 5, with or without kidney disease, indicate chronic kidney disease. Notes: Determination of stages one and two (with eGFR >59mL/min/1.73 m2) requires estimation of kidney damage for at least three months as defined by structural or functional abnormalities of the kidney, manifested by either:Pathological abnormalities or Markers of kidney damage (including abnormalities in the composition of the blood or urine or abnormalities in imaging tests). Lab Interpretation Abnormal (test code = 94300-6) [facility] with [id number] 20:46:46 Test Item Value Reference Range Interpretation Comments WBC (test code = See_Comment [Automated 7374-2) message] The sy stem which generated this result transmitted reference range : 4.30 - 11.10 10*3/?L. The reference range was not used to interpret this result as normal/abnormal . RBC (test code = See_Comment L [Automated 979-8) message] The sy stem which generated this result transmitted reference range : 3.93 - 5.25 10*6/?L. The reference range was not used to interpret this result as normal/abnormal . HGB (test code = 9.1 g/dL 11.6-15.0 L 718-7) HCT (test code = 30.5 % 35.7-45.2 L 4544-3) MCV (test code = 92.4 fL 80.6-95.5 787-2) MCH (test code = 27.6 pg 25.9-32.8 785-6) MCHC (test code = 29.8 g/dL 31.6-35.1 L 786-4) RDW-SD (test code = 59.1 fL 39.0-49.9 H 86218-1) RDW-CV (test code = 17.6 % 12.0-15.5 H 788-0) PLT (test code = See_Comment L [Automated 777-3) message] The sy stem which generated this result transmitted reference range : 166 - 358 10*3/ ?L. The reference r bharti was not used to interpret this result as normal/abnormal . MPV (test code = 9.2 fL 9.5-12.9 L 53110-9) NRBC/100 WBC (test See_Comment [Automat ed code = 6029774051) message] The system which generated this result transmitted reference range : 0.0 - 10.0 /100 WBCs. The refer ence range was not u sed to interpret th is result as normal/abnormal . NRBC x10^3 (test code <0.01 See_Comment [Auto mated = 6911083273) message] The s ystem which generated this result transmitted reference range : 10*3/?L. The reference range was not used to interpret this result as normal/abnormal . GRAN MAT (NEUT) % 55.4 % (test code = 770-8) IMM GRAN % (test code 0.60 % = 6898641123) LYMPH % (test code = 32.5 % 736-9) MONO % (test code = 7.2 % 5905-5) EOS % (test code = 3.9 % 713-8) BASO % (test code = 0.4 % 706-2) GRAN MAT x10^3(ANC) 2.87 10*3/uL 1.88-7.09 (test code = 0794818825) IMM GRAN x10^3 (test 0.03 10*3/uL 0.00-0.06 code = 9188010727) LYMPH x10^3 (test code 1.68 10*3/uL 1.32-3.29 = 731-0) MONO x10^3 (test code 0.37 10*3/uL 0.33-0.92 = 742-7) EOS x10^3 (test code = 0.20 10*3/uL 0.03-0.39 711-2) BASO x10^3 (test code <0.03 0.01-0.07 = 704-7) Lab Interpretation Abnormal (test code = 16591-9) [facility] CenterLactic Acid Whole [id number] 20:31:53 Test Item Value Reference Range Interpretation Comments LACTIC ACID (test code = 1.59 mmol/L 0.50-2.20 3640698713) Lab Interpretation (test code = Normal 39332-9) [facility][U] XRAY KNEE 1 OR 2 VWS RIGHT [id number] 12:47:00Images acquired, not reported on this accession number.[facility][U] XRAY ANKLE MIN 3 VWS RIGHT [id number] 12:47:00Images acquired, not reported on this accession number.[facility][U] XRAY FEMUR 2 VWS LEFT [id number] 2018-11-13 11:56:00Images acquired, not reported on this accession number.[facility][U] XRAY FEMUR 2 VWS LEFT [id number] 10:54:00Images acquired, not reported on this accession number.[facility]iciansCREATININE [id number] 17:53:00 Test Item Value Reference Range Interpretation Comments CREATININE CLEARANCE 47.2 mL/min 70.0-140.0 L ([facility]) (test code = 357) VOLUME, TOTAL ([facility]) 1050 ml (test code = 1457) CREATININE URINE 78.9 mg/dL ([facility]) (test code = 375) [id number] Linda Pitts MD ([facility]) (test code = (electronic signature) 9775) POCT-GLUCOSE [id number] 11:37:00 Test Item Value Reference Range Interpretation Comments POC-GLUCOSE METER 128 mg/dL 70-110 H TESTED AT [facility] 67[address] ([facility]) (test code = [place] 1538) [address] URINE [id number] 11:02:00 Test Item Value Reference Range Interpretation Comments CULTURE ([facility]) (test <10,000 col/mL skin code = 1095) jayshree POCT-GLUCOSE [id number] 06:28:00 Test Item Value Reference Range Interpretation Comments POC-GLUCOSE METER 101 mg/dL 70-110 TESTED AT [place] [address] ([facility]) (test code = JOSEPH [facility] 1538) [address] POCT-GLUCOSE [id number] 00:46:00 Test Item Value Reference Range Interpretation Comments POC-GLUCOSE METER 130 mg/dL 70-110 H TESTED AT [place] [address] ([facility]) (test code = JOSEPH [facility] 1538) [address] POCT-GLUCOSE [id number] 20:21:00 Test Item Value Reference Range Interpretation Comments POC-GLUCOSE METER 133 mg/dL 70-110 H TESTED AT [place] [address] ([facility]) (test code = JOSEPH [facility] 1538) [address] [id number] 18:44:00 Test Item Value Reference Range Interpretation Comments CREATININE ([facility]) 0.82 mg/dL 0.57-1.25 (test code = 358) EGFR ([facility]) (test 69 mL/min/1.73 ESTIMA BOUCHRA GFR IS code = 1092) sq m NOT ACCURATE CREATININE CLEARANCE IN PREDICTING GLOMERULAR FILTRATION RATE . ESTIMATED GFR I S NOT APPLICABLE FOR DIALYSIS PATIEN TS. POCT-GLUCOSE [id number] 17:11:00 Test Item Value Reference Range Interpretation Comments POC-GLUCOSE METER 118 mg/dL 70-110 H TESTED AT [place] [address] ([facility]) (test code = JOSEPH [facility] 1538) [address] POCT-GLUCOSE [id number] 15:29:00 Test Item Value Reference Range Interpretation Comments POC-GLUCOSE METER 63 mg/dL 70-110 L Notified R Ravinder COTO/TESTED AT ([facility]) (test code = [place] [address] KIRAN [facility]8) [facility] 7703 0 POCT-GLUCOSE [id number] 15:03:00 Test Item Value Reference Range Interpretation Comments POC-GLUCOSE METER 51 mg/dL 70-110 L Notified R Ravinder COOT/TESTED AT ([facility]) (test code = [place] [address] KIRAN 1538) [facility] 7703 0 POCT-GLUCOSE [id number] 11:28:00 Test Item Value Reference Range Interpretation Comments POC-GLUCOSE METER 75 mg/dL 70-110 TESTED AT [facility] 6720 (BEAKER) (test code = [place] [address] 1538) CALCIUM, 24 HOUR [id number] 09:19:00 Test Item Value Reference Range Interpretation Comments VOLUME, TOTAL (BEAKER) (test 1050 ml code = 1457) CALCIUM URINE (BEAKER) (test 15.4 mg/dL code = 396) CALCIUM, 24HR URINE (BEAKER) 162 mg/24 Hr 50-300 (test code = 1520) VITAMIN D, 68-[id number] 07:18:00 Test Item Value Reference Range Interpretation Comments VITAMIN D 25-OH (BEAKER) (test code = < ng/mL 13.0-47.8 L 2764) CBC W/PLT COUNT & AUTO [id number] 07:04:00 Test Item Value Reference Range Interpretation Comments WHITE BLOOD CELL COUNT (BEAKER) 13.3 K/ L 4.0-10.0 H (test code = 775) RED BLOOD CELL COUNT (BEAKER) 3.79 M/ L 4.00-5.00 L (test code = 761) HEMOGLOBIN (BEAKER) (test code = 12.3 GM/DL 12.0-15.0 410) HEMATOCRIT (BEAKER) (test code = 37.1 % 36.0-45.0 411) MEAN CORPUSCULAR VOLUME (BEAKER) 98.1 fL 82.0-99.0 (test code = 753) MEAN CORPUSCULAR HEMOGLOBIN 32.4 pg 27.0-33.0 (BEAKER) (test code = 751) MEAN CORPUSCULAR HEMOGLOBIN CONC 33.0 GM/DL 32.0-36.0 (BEAKER) (test code = 752) RED CELL DISTRIBUTION WIDTH 15.2 % 10.3-14.2 H (BEAKER) (test code = 412) PLATELET COUNT (BEAKER) (test 218 K/CU MM 150-430 code = 756) MEAN PLATELET VOLUME (BEAKER) 7.3 fL 6.5-10.5 (test code = 754) NUCLEATED RED BLOOD CELLS 0 /100 WBC 0-0 (BEAKER) (test code = 413) NEUTROPHILS RELATIVE PERCENT 79 % (BEAKER) (test code = 429) LYMPHOCYTES RELATIVE PERCENT 16 % (BEAKER) (test code = 430) MONOCYTES RELATIVE PERCENT 5 % (BEAKER) (test code = 431) EOSINOPHILS RELATIVE PERCENT 1 % (BEAKER) (test code = 432) BASOPHILS RELATIVE PERCENT 0 % (BEAKER) (test code = 437) NEUTROPHILS ABSOLUTE COUNT 10.40 K/ L 1.80-8.00 H (BEAKER) (test code = 670) LYMPHOCYTES ABSOLUTE COUNT 2.05 K/ L 1.48-4.50 (BEAKER) (test code = 414) MONOCYTES ABSOLUTE COUNT (BEAKER) 0.69 K/ L 0.00-1.30 (test code = 415) EOSINOPHILS ABSOLUTE COUNT 0.09 K/ L 0.00-0.50 (BEAKER) (test code = 416) BASOPHILS ABSOLUTE COUNT (BEAKER) 0.01 K/ L 0.00-0.20 (test code = 417) 0.00BASIC METABOLIC [id number] 07:01:00 Test Item Value Reference Range Interpretation Comments SODIUM (BEAKER) 142 meq/L 136-145 (test code = 381) POTASSIUM (BEAKER) 3.7 meq/L 3.5-5.1 (test code = 379) CHLORIDE (BEAKER) 104 meq/L 98-107 (test code = 382) CO2 (BEAKER) (test 27 meq/L 22-29 code = 355) BLOOD UREA NITROGEN 35 mg/dL 7-21 H (BEAKER) (test code = 354) CREATININE (BEAKER) 0.86 mg/dL 0.57-1.25 (test code = 358) GLUCOSE RANDOM 144 mg/dL 70-105 H (BEAKER) (test code = 652) CALCIUM (BEAKER) 11.6 mg/dL 8.4-10.2 H (test code = 697) EGFR (BEAKER) (test 65 mL/min/1.73 ESTIMA BOUCHRA GFR IS code = 1092) sq m NOT ACCURATE CREATININE CLEARANCE IN PREDICTING GLOMERULAR FILTRATION RATE . ESTIMATED GFR I S NOT APPLICABLE FOR DIALYSIS PATIEN TS. [id number] 06:57:00 Test Item Value Reference Range Interpretation Comments PHOSPHORUS (BEAKER) (test code = 3.0 mg/dL 2.3-4.7 604) [id number] 06:57:00 Test Item Value Reference Range Interpretation Comments MAGNESIUM (BEAKER) (test code = 2.2 mg/dL 1.6-2.6 627) [id number] 06:34:00 Test Item Value Reference Range Interpretation Comments ALBUMIN (BEAKER) (test code = 1145) 3.8 g/dL 3.5-5.0 POCT-GLUCOSE [id number] 06:32:00 Test Item Value Reference Range Interpretation Comments POC-GLUCOSE METER 104 mg/dL 70-110 TESTED AT [place] [address] (BEAKER) (test code = [facility] 1538) [address] POCT-GLUCOSE [id number] 23:41:00 Test Item Value Reference Range Interpretation Comments POC-GLUCOSE METER 108 mg/dL 70-110 TESTED AT [place] [address] ([facility]) (test code = [facility] 1538) [address] POCT-GLUCOSE [id number] 17:58:00 Test Item Value Reference Range Interpretation Comments POC-GLUCOSE METER 112 mg/dL 70-110 H TESTED AT [place] [address] ([facility]) (test code = [facility] 1538) [address] URINALYSIS W/ REFLEX URINE [id number] 16:02:00 Test Item Value Reference Range Interpretation Comments COLOR (BEAKER) (test code = 470) Yellow CLARITY (BEAKER) (test code = 469) Clear SPECIFIC GRAVITY UA (BEAKER) (test 1.015 1.001-1.035 code = 468) PH UA (BEAKER) (test code = 467) 6.0 5.0-8.0 PROTEIN UA (BEAKER) (test code = Negative Negative 464) GLUCOSE UA (BEAKER) (test code = Negative Negative 365) KETONES UA (BEAKER) (test code = Negative Negative 371) BILIRUBIN UA (BEAKER) (test code = Negative Negative 462) BLOOD UA (BEAKER) (test code = 461) Negative Negative NITRITE UA (BEAKER) (test code = Negative Negative 465) LEUKOCYTE ESTERASE UA (BEAKER) Moderate Negative A (test code = 466) UROBILINOGEN UA (BEAKER) (test code 0.2 mg/dL 0.2-1.0 = 463) RBC UA (BEAKER) (test code = 519) HPF WBC UA (BEAKER) (test code = 520) 29 /HPF MUCUS (BEAKER) (test code = 1574) Few SQUAMOUS EPITHELIAL (BEAKER) (test 1 /HPF code = 516) HYALINE CASTS (BEAKER) (test code = 2 /LPF 514) SOURCE(BEAKER) (test code = 2795) POCT-GLUCOSE [id number] 12:49:00 Test Item Value Reference Range Interpretation Comments POC-GLUCOSE METER 79 mg/dL 70-110 TESTED AT [facility] 6720 (BEAKER) (test code = [place] [facility] [id number]) CBC W/PLT COUNT & AUTO [id number] 09:59:00 Test Item Value Reference Range Interpretation Comments WHITE BLOOD CELL COUNT (BEAKER) 17.0 K/ L 4.0-10.0 H (test code = 775) RED BLOOD CELL COUNT (BEAKER) 3.96 M/ L 4.00-5.00 L (test code = 761) HEMOGLOBIN (BEAKER) (test code = 12.1 GM/DL 12.0-15.0 410) HEMATOCRIT (BEAKER) (test code = 39.2 % 36.0-45.0 411) MEAN CORPUSCULAR VOLUME (BEAKER) 99.0 fL 82.0-99.0 (test code = 753) MEAN CORPUSCULAR HEMOGLOBIN 30.5 pg 27.0-33.0 (BEAKER) (test code = 751) MEAN CORPUSCULAR HEMOGLOBIN CONC 30.8 GM/DL 32.0-36.0 L (BEAKER) (test code = 752) RED CELL DISTRIBUTION WIDTH 15.5 % 10.3-14.2 H (BEAKER) (test code = 412) PLATELET COUNT (BEAKER) (test 219 K/CU MM 150-430 code = 756) MEAN PLATELET VOLUME (BEAKER) 7.3 fL 6.5-10.5 (test code = 754) NUCLEATED RED BLOOD CELLS 0 /100 WBC 0-0 (BEAKER) (test code = 413) NEUTROPHILS RELATIVE PERCENT 80 % (BEAKER) (test code = 429) LYMPHOCYTES RELATIVE PERCENT 14 % (BEAKER) (test code = 430) MONOCYTES RELATIVE PERCENT 6 % (BEAKER) (test code = 431) EOSINOPHILS RELATIVE PERCENT 1 % (BEAKER) (test code = 432) BASOPHILS RELATIVE PERCENT 0 % (BEAKER) (test code = 437) NEUTROPHILS ABSOLUTE COUNT 13.60 K/ L 1.80-8.00 H (BEAKER) (test code = 670) LYMPHOCYTES ABSOLUTE COUNT 2.32 K/ L 1.48-4.50 (BEAKER) (test code = 414) MONOCYTES ABSOLUTE COUNT (BEAKER) 0.97 K/ L 0.00-1.30 (test code = 415) EOSINOPHILS ABSOLUTE COUNT 0.10 K/ L 0.00-0.50 (BEAKER) (test code = 416) BASOPHILS ABSOLUTE COUNT (BEAKER) 0.01 K/ L 0.00-0.20 (test code = 417) 0.000.510.000.000.000.00(MANUAL DIFFERENTIAL)2017-01-01 09:59:00 Test Item Value Reference Range Interpretation Comments TOTAL COUNTED (BEAKER) (test code = 1351) WBC MORPHOLOGY (BEAKER) (test code = Normal 487) PLT MORPHOLOGY (BEAKER) (test code = Normal 486) RBC MORPHOLOGY (BEAKER) (test code = Normal 762) POCT-GLUCOSE [id number] 06:20:00 Test Item Value Reference Range Interpretation Comments POC-GLUCOSE METER 140 mg/dL 70-110 H TESTED AT [facility] 6720 (BEAKER) (test code = [place] 1538) [address] [id number] 06:11:00 Test Item Value Reference Range Interpretation Comments ALBUMIN (BEAKER) 3.2 g/dL 3.5-5.0 L Specimen mo derately (test code = 1145) hemolyzed BASIC METABOLIC [id number] 06:00:00 Test Item Value Reference Range Interpretation Comments SODIUM (BEAKER) 143 meq/L 136-145 (test code = 381) POTASSIUM (BEAKER) 3.8 meq/L 3.5-5.1 (test code = 379) CHLORIDE (BEAKER) 102 meq/L 98-107 (test code = 382) CO2 (BEAKER) (test 31 meq/L 22-29 H code = 355) BLOOD UREA NITROGEN 33 mg/dL 7-21 H (BEAKER) (test code = 354) CREATININE (BEAKER) 0.89 mg/dL 0.57-1.25 (test code = 358) GLUCOSE RANDOM 145 mg/dL 70-105 H ([facility]) (test code = 652) CALCIUM (BEAKER) 11.6 mg/dL 8.4-10.2 H (test code = 697) EGFR (BEAKER) (test 63 mL/min/1.73 ESTIMA BOUCHRA GFR IS code = 1092) sq m NOT ACCURATE CREATININE CLEARANCE IN PREDICTING GLOMERULAR FILTRATION RATE . ESTIMATED GFR I S NOT APPLICABLE FOR DIALYSIS PATIEN TS. [id number] 05:59:00 Test Item Value Reference Range Interpretation Comments PHOSPHORUS (BEAKER) (test code = 3.1 mg/dL 2.3-4.7 604) [id number] 05:59:00 Test Item Value Reference Range Interpretation Comments MAGNESIUM (BEAKER) (test code = 2.0 mg/dL 1.6-2.6 627) POCT-GLUCOSE [id number] 23:38:00 Test Item Value Reference Range Interpretation Comments POC-GLUCOSE METER 156 mg/dL 70-110 H TESTED AT [place] [address] ([facility]) (test code = [facility] 1538) [address] POCT-GLUCOSE [id number] 18:18:00 Test Item Value Reference Range Interpretation Comments POC-GLUCOSE METER 110 mg/dL 70-110 TESTED AT [place] [address] ([facility]) (test code = [facility] 1538) [address] POCT-GLUCOSE [id number] 11:44:00 Test Item Value Reference Range Interpretation Comments POC-GLUCOSE METER 79 mg/dL 70-110 TESTED AT [place] [address] ([facility]) (test code = [facility] [address] 1538) CBC W/PLT COUNT & AUTO [id number] 11:03:00 Test Item Value Reference Range Interpretation Comments WHITE BLOOD CELL COUNT ([facility]) 13.9 K/ L 4.0-10.0 H (test code = 775) RED BLOOD CELL COUNT ([facility]) 3.86 M/ L 4.00-5.00 L (test code = 761) HEMOGLOBIN ([facility]) (test code = 12.4 GM/DL 12.0-15.0 410) HEMATOCRIT ([facility]) (test code = 37.7 % 36.0-45.0 411) MEAN CORPUSCULAR VOLUME (BEAKER) 97.5 fL 82.0-99.0 (test code = 753) MEAN CORPUSCULAR HEMOGLOBIN 32.2 pg 27.0-33.0 (BEAKER) (test code = 751) MEAN CORPUSCULAR HEMOGLOBIN CONC 33.0 GM/DL 32.0-36.0 (BEAKER) (test code = 752) RED CELL DISTRIBUTION WIDTH 16.4 % 10.3-14.2 H (BEAKER) (test code = 412) PLATELET COUNT (BEAKER) (test 248 K/CU MM 150-430 code = 756) MEAN PLATELET VOLUME (BEAKER) 7.1 fL 6.5-10.5 (test code = 754) NUCLEATED RED BLOOD CELLS 0 /100 WBC 0-0 (BEAKER) (test code = 413) NEUTROPHILS RELATIVE PERCENT 81 % (BEAKER) (test code = 429) LYMPHOCYTES RELATIVE PERCENT 12 % (BEAKER) (test code = 430) MONOCYTES RELATIVE PERCENT 6 % (BEAKER) (test code = 431) EOSINOPHILS RELATIVE PERCENT 1 % (BEAKER) (test code = 432) BASOPHILS RELATIVE PERCENT 0 % (BEAKER) (test code = 437) NEUTROPHILS ABSOLUTE COUNT 11.30 K/ L 1.80-8.00 H (BEAKER) (test code = 670) LYMPHOCYTES ABSOLUTE COUNT 1.62 K/ L 1.48-4.50 (BEAKER) (test code = 414) MONOCYTES ABSOLUTE COUNT (BEAKER) 0.84 K/ L 0.00-1.30 (test code = 415) EOSINOPHILS ABSOLUTE COUNT 0.15 K/ L 0.00-0.50 (BEAKER) (test code = 416) BASOPHILS ABSOLUTE COUNT (BEAKER) 0.03 K/ L 0.00-0.20 (test code = 417) 0.000.520.000.000.000.000.000.000.00(MANUAL DIFFERENTIAL)2016-12-31 11:03:00 Test Item Value Reference Range Interpretation Comments TOTAL COUNTED (BEAKER) (test code = 1351) WBC MORPHOLOGY (BEAKER) (test code = Normal 487) PLT MORPHOLOGY (BEAKER) (test code = Normal 486) RBC MORPHOLOGY (BEAKER) (test code = Normal 762) POCT-GLUCOSE [id number] 06:21:00 Test Item Value Reference Range Interpretation Comments POC-GLUCOSE METER 152 mg/dL 70-110 H TESTED AT [facility] 6720 (BEAKER) (test code = [employer] [place] 1538) [address] BASIC METABOLIC [id number] 06:04:00 Test Item Value Reference Range Interpretation Comments SODIUM (BEAKER) 142 meq/L 136-145 (test code = 381) POTASSIUM (BEAKER) 3.8 meq/L 3.5-5.1 (test code = 379) CHLORIDE (BEAKER) 102 meq/L 98-107 (test code = 382) CO2 (BEAKER) (test 29 meq/L 22-29 code = 355) BLOOD UREA NITROGEN 34 mg/dL 7-21 H (BEAKER) (test code = 354) CREATININE (BEAKER) 0.85 mg/dL 0.57-1.25 (test code = 358) GLUCOSE RANDOM 151 mg/dL 70-105 H (BEAKER) (test code = 652) CALCIUM (BEAKER) 11.7 mg/dL 8.4-10.2 H (test code = 697) EGFR (BEAKER) (test 66 mL/min/1.73 ESTIMA BOUCHRA GFR IS code = 1092) sq m NOT ACCURATE CREATININE CLEARANCE IN PREDICTING GLOMERULAR FILTRATION RATE . ESTIMATED GFR I S NOT APPLICABLE FOR DIALYSIS PATIEN TS. [id number] 05:56:00 Test Item Value Reference Range Interpretation Comments PHOSPHORUS (BEAKER) (test code = 3.5 mg/dL 2.3-4.7 604) [id number] 05:56:00 Test Item Value Reference Range Interpretation Comments MAGNESIUM (BEAKER) (test code = 1.9 mg/dL 1.6-2.6 627) POCT-GLUCOSE [id number] 23:51:00 Test Item Value Reference Range Interpretation Comments POC-GLUCOSE METER 168 mg/dL 70-110 H TESTED AT [facility] 6720 (BEAKER) (test code = [facility] 1538) [address] POCT-GLUCOSE [id number] 18:34:00 Test Item Value Reference Range Interpretation Comments POC-GLUCOSE METER 80 mg/dL 70-110 TESTED AT [facility] 6720 (BEAKER) (test code = [facility] [address] 1538) POCT-GLUCOSE [id number] 16:09:00 Test Item Value Reference Range Interpretation Comments POC-GLUCOSE METER 83 mg/dL 70-110 TESTED AT [place] [address] ([facility]) (test code = JOSEPH Hendrix [facility] [address] 1538) POCT-GLUCOSE [id number] 16:09:00 Test Item Value Reference Range Interpretation Comments POC-GLUCOSE METER 41 mg/dL 70-110 L TESTED AT [place] [address] ([facility]) ([facility] [address] 1538) POCT-GLUCOSE [id number] 15:20:00 Test Item Value Reference Range Interpretation Comments POC-GLUCOSE METER 44 mg/dL 70-110 L TESTED AT [place] [address] ([facility]) (test code = [facility] [facility] [id number] 1538) POCT-GLUCOSE [id number] 08:27:00 Test Item Value Reference Range Interpretation Comments POC-GLUCOSE METER 114 mg/dL 70-110 H TESTED AT [place] [address] ([facility]) (test code = [facility] 1538) [address] POCT-GLUCOSE [id number] 08:27:00 Test Item Value Reference Range Interpretation Comments POC-GLUCOSE METER 35 mg/dL 70-110 LL TESTED AT [place] [address] ([facility]) (test code = [facility] [address] 1538) CBC W/PLT COUNT & AUTO [id number] 07:04:00 Test Item Value Reference Range Interpretation Comments WHITE BLOOD CELL COUNT ([facility]) 8.2 K/ L 4.0-10.0 (test code = 775) RED BLOOD CELL COUNT ([facility]) 4.05 M/ L 4.00-5.00 (test code = 761) HEMOGLOBIN (BEAKER) (test code = 12.8 GM/DL 12.0-15.0 410) HEMATOCRIT (AKER) (test code = 39.2 % 36.0-45.0 411) MEAN CORPUSCULAR VOLUME (AKER) 97.0 fL 82.0-99.0 (test code = 753) MEAN CORPUSCULAR HEMOGLOBIN 31.7 pg 27.0-33.0 (BEAKER) (test code = 751) MEAN CORPUSCULAR HEMOGLOBIN CONC 32.7 GM/DL 32.0-36.0 (AKER) (test code = 752) RED CELL DISTRIBUTION WIDTH 15.6 % 10.3-14.2 H (BEAKER) (test code = 412) PLATELET COUNT (BEAKER) (test 275 K/CU MM 150-430 code = 756) MEAN PLATELET VOLUME (BEAKER) 6.9 fL 6.5-10.5 (test code = 754) NUCLEATED RED BLOOD CELLS 0 /100 WBC 0-0 (BEAKER) (test code = 413) NEUTROPHILS RELATIVE PERCENT 63 % (BEAKER) (test code = 429) LYMPHOCYTES RELATIVE PERCENT 27 % (BEAKER) (test code = 430) MONOCYTES RELATIVE PERCENT 7 % (BEAKER) (test code = 431) EOSINOPHILS RELATIVE PERCENT 2 % (BEAKER) (test code = 432) BASOPHILS RELATIVE PERCENT 1 % (BEAKER) (test code = 437) NEUTROPHILS ABSOLUTE COUNT 5.13 K/ L 1.80-8.00 (BEAKER) (test code = 670) LYMPHOCYTES ABSOLUTE COUNT 2.21 K/ L 1.48-4.50 (BEAKER) (test code = 414) MONOCYTES ABSOLUTE COUNT (BEAKER) 0.59 K/ L 0.00-1.30 (test code = 415) EOSINOPHILS ABSOLUTE COUNT 0.18 K/ L 0.00-0.50 (BEAKER) (test code = 416) BASOPHILS ABSOLUTE COUNT (BEAKER) 0.10 K/ L 0.00-0.20 (test code = 417) 0.00POCT-GLUCOSE [id number] 06:20:00 Test Item Value Reference Range Interpretation Comments POC-GLUCOSE METER 62 mg/dL 70-110 L Notified R Ravinder COTO/TESTED AT (BEAKER) (test code = [facility] 6720 [place] 1538) [facility] 7[address] 0 BASIC METABOLIC [id number] 06:13:00 Test Item Value Reference Range Interpretation Comments SODIUM (BEAKER) 141 meq/L 136-145 (test code = 381) POTASSIUM (BEAKER) 4.3 meq/L 3.5-5.1 (test code = 379) CHLORIDE (BEAKER) 99 meq/L 98-107 (test code = 382) CO2 (BEAKER) (test 33 meq/L 22-29 H code = 355) BLOOD UREA NITROGEN 36 mg/dL 7-21 H (BEAKER) (test code = 354) CREATININE (BEAKER) 0.93 mg/dL 0.57-1.25 (test code = 358) GLUCOSE RANDOM 107 mg/dL 70-105 H (BEAKER) (test code = 652) CALCIUM (BEAKER) 11.9 mg/dL 8.4-10.2 H (test code = 697) EGFR (BEAKER) (test 59 mL/min/1.73 ESTIMA BOUCHRA GFR IS code = 1092) sq m NOT ACCURATE CREATININE CLEARANCE IN PREDICTING GLOMERULAR FILTRATION RATE . ESTIMATED GFR I S NOT APPLICABLE FOR DIALYSIS PATIEN TS. [id number] 06:10:00 Test Item Value Reference Range Interpretation Comments PHOSPHORUS (BEAKER) (test code = 3.5 mg/dL 2.3-4.7 604) [id number] 06:10:00 Test Item Value Reference Range Interpretation Comments MAGNESIUM (BEAKER) (test code = 2.2 mg/dL 1.6-2.6 627) PROTHROMBIN [id number] 06:05:00 Test Item Value Reference Range Interpretation Comments PROTIME (BEAKER) (test code = 15.5 seconds 11.7-14.7 H 759) INR (BEAKER) (test code = 370) 1.2 <=5.9 RECOMMENDED COUMADIN/WARFARIN INR THERAPY RANGESSTANDARD DOSE: 2.0 - 3.0 Includes: PROPHYLAXIS for venous thrombosis, systemic embolization; TREATMENT for venous thrombosis and/or pulmonary embolus.HIGH RISK: Target INR is 2.5-3.5 for patients with mechanical heart valves.POCT-GLUCOSE [id number] 23:58:00 Test Item Value Reference Range Interpretation Comments POC-GLUCOSE METER 108 mg/dL 70-110 TESTED AT [facility] 6720 (Bonzer[place]arg) (test code = [place] 1538) [id number] POCT-GLUCOSE [id number] 18:02:00 Test Item Value Reference Range Interpretation Comments POC-GLUCOSE METER 126 mg/dL 70-110 H TESTED AT [facility] 6720 ([facility]) (test code = [facility] [place] [facility] 1538) [address] PTH, [id number] 14:50:00 Test Item Value Reference Range Interpretation Comments PARATHYROID HORMONE INTACT 274.9 pg/mL 8.5-72.5 H ([facility]) (test code = 577) Effective 08/19/2014: Reference Range ChangeNew: 8.5-72.5 Previous: 15.0-90.0 POCT-GLUCOSE [id number] 13:33:00 Test Item Value Reference Range Interpretation Comments POC-GLUCOSE METER 145 mg/dL 70-110 H TESTED AT [facility] 6720 (BEAKER) (test code = [place] 1538) [address] CBC W/PLT COUNT & AUTO [id number] 08:35:00 Test Item Value Reference Range Interpretation Comments WHITE BLOOD CELL COUNT (BEAKER) 10.2 K/ L 4.0-10.0 H (test code = 775) RED BLOOD CELL COUNT (BEAKER) 3.96 M/ L 4.00-5.00 L (test code = 761) HEMOGLOBIN (BEAKER) (test code = 12.8 GM/DL 12.0-15.0 410) HEMATOCRIT (BEAKER) (test code = 38.7 % 36.0-45.0 411) MEAN CORPUSCULAR VOLUME (BEAKER) 97.7 fL 82.0-99.0 (test code = 753) MEAN CORPUSCULAR HEMOGLOBIN 32.2 pg 27.0-33.0 (BEAKER) (test code = 751) MEAN CORPUSCULAR HEMOGLOBIN CONC 33.0 GM/DL 32.0-36.0 (BEAKER) (test code = 752) RED CELL DISTRIBUTION WIDTH 16.7 % 10.3-14.2 H (BEAKER) (test code = 412) PLATELET COUNT (BEAKER) (test 279 K/CU MM 150-430 code = 756) MEAN PLATELET VOLUME (BEAKER) 6.7 fL 6.5-10.5 (test code = 754) NUCLEATED RED BLOOD CELLS 0 /100 WBC 0-0 (BEAKER) (test code = 413) NEUTROPHILS RELATIVE PERCENT 70 % (BEAKER) (test code = 429) LYMPHOCYTES RELATIVE PERCENT 22 % (BEAKER) (test code = 430) MONOCYTES RELATIVE PERCENT 7 % (BEAKER) (test code = 431) EOSINOPHILS RELATIVE PERCENT 2 % (BEAKER) (test code = 432) BASOPHILS RELATIVE PERCENT 0 % (BEAKER) (test code = 437) NEUTROPHILS ABSOLUTE COUNT 7.11 K/ L 1.80-8.00 (BEAKER) (test code = 670) LYMPHOCYTES ABSOLUTE COUNT 2.19 K/ L 1.48-4.50 (BEAKER) (test code = 414) MONOCYTES ABSOLUTE COUNT (BEAKER) 0.70 K/ L 0.00-1.30 (test code = 415) EOSINOPHILS ABSOLUTE COUNT 0.18 K/ L 0.00-0.50 (BEAKER) (test code = 416) BASOPHILS ABSOLUTE COUNT (BEAKER) 0.02 K/ L 0.00-0.20 (test code = 417) [id number](MANUAL DIFFERENTIAL)2016-12-29 08:35:00 Test Item Value Reference Range Interpretation Comments TOTAL COUNTED (BEAKER) (test code = 1351) BASIC METABOLIC [id number] 06:00:00 Test Item Value Reference Range Interpretation Comments SODIUM (BEAKER) 141 meq/L 136-145 (test code = 381) POTASSIUM (BEAKER) 4.3 meq/L 3.5-5.1 Specimen slightly (test code = 379) hemolyzed CHLORIDE (BEAKER) 100 meq/L 98-107 (test code = 382) CO2 (BEAKER) (test 29 meq/L 22-29 code = 355) BLOOD UREA NITROGEN 34 mg/dL 7-21 H (BEAKER) (test code = 354) CREATININE (BEAKER) 0.91 mg/dL 0.57-1.25 Specimen slightly (test code = 358) hemolyzed GLUCOSE RANDOM 110 mg/dL 70-105 H (BEAKER) (test code = 652) CALCIUM (BEAKER) 12.0 mg/dL 8.4-10.2 H (test code = 697) EGFR (BEAKER) (test 61 mL/min/1.73 ESTIMA BOUCHRA GFR IS code = 1092) sq m NOT ACCURATE CREATININE CLEARANCE IN PREDICTING GLOMERULAR FILTRATION RATE . ESTIMATED GFR I S NOT APPLICABLE FOR DIALYSIS PATIEN TS. [id number] 05:59:00 Test Item Value Reference Range Interpretation Comments MAGNESIUM (BEAKER) 2.4 mg/dL 1.6-2.6 Specimen slightly (test code = 627) hemolyzed [id number] 05:59:00 Test Item Value Reference Range Interpretation Comments PHOSPHORUS (BEAKER) 3.1 mg/dL 2.3-4.7 Specimen slightly (test code = 604) hemolyzed POCT-GLUCOSE [id number] 05:32:00 Test Item Value Reference Range Interpretation Comments POC-GLUCOSE METER 114 mg/dL 70-110 H TESTED AT [place] [address] ([facility]) (test code = [facility] 1538) [id number] POCT-GLUCOSE [id number] 00:02:00 Test Item Value Reference Range Interpretation Comments POC-GLUCOSE METER 106 mg/dL 70-110 TESTED AT [place] [address] ([facility]) (test code = [facility] 1538) [id number] POCT-GLUCOSE [id number] 18:28:00 Test Item Value Reference Range Interpretation Comments POC-GLUCOSE METER 150 mg/dL 70-110 H TESTED AT [place] [address] ([facility]) (test code = [facility] 1538) [id number] POCT-GLUCOSE [id number] 12:31:00 Test Item Value Reference Range Interpretation Comments POC-GLUCOSE METER 152 mg/dL 70-110 H TESTED AT [place] [address] ([facility]) (test code = [facility] 1538) [id number] POCT-GLUCOSE [id number] 05:41:00 Test Item Value Reference Range Interpretation Comments POC-GLUCOSE METER 120 mg/dL 70-110 H TESTED AT [place] [address] ([facility]) (test code = [facility] 1538) [id number] CBC W/PLT COUNT & AUTO [id number] 05:00:00 Test Item Value Reference Range Interpretation Comments WHITE BLOOD CELL COUNT ([facility]) 8.8 K/ L 4.0-10.0 (test code = 775) RED BLOOD CELL COUNT ([facility]) 3.76 M/ L 4.00-5.00 L (test code = 761) HEMOGLOBIN (AKER) (test code = 11.3 GM/DL 12.0-15.0 L 410) HEMATOCRIT ([facility]) (test code = 35.7 % 36.0-45.0 L 411) MEAN CORPUSCULAR VOLUME ([facility]) 95.1 fL 82.0-99.0 (test code = 753) MEAN CORPUSCULAR HEMOGLOBIN 30.2 pg 27.0-33.0 (BEAKER) (test code = 751) MEAN CORPUSCULAR HEMOGLOBIN CONC 31.7 GM/DL 32.0-36.0 L (BEAKER) (test code = 752) RED CELL DISTRIBUTION WIDTH 15.5 % 10.3-14.2 H (BEAKER) (test code = 412) PLATELET COUNT (BEAKER) (test 259 K/CU MM 150-430 code = 756) MEAN PLATELET VOLUME (BEAKER) 6.3 fL 6.5-10.5 L (test code = 754) NUCLEATED RED BLOOD CELLS 0 /100 WBC 0-0 (BEAKER) (test code = 413) NEUTROPHILS RELATIVE PERCENT 72 % (BEAKER) (test code = 429) LYMPHOCYTES RELATIVE PERCENT 20 % (BEAKER) (test code = 430) MONOCYTES RELATIVE PERCENT 6 % (BEAKER) (test code = 431) EOSINOPHILS RELATIVE PERCENT 1 % (BEAKER) (test code = 432) BASOPHILS RELATIVE PERCENT 0 % (BEAKER) (test code = 437) NEUTROPHILS ABSOLUTE COUNT 6.39 K/ L 1.80-8.00 (BEAKER) (test code = 670) LYMPHOCYTES ABSOLUTE COUNT 1.75 K/ L 1.48-4.50 (BEAKER) (test code = 414) MONOCYTES ABSOLUTE COUNT (BEAKER) 0.57 K/ L 0.00-1.30 (test code = 415) EOSINOPHILS ABSOLUTE COUNT 0.11 K/ L 0.00-0.50 (BEAKER) (test code = 416) BASOPHILS ABSOLUTE COUNT (BEAKER) 0.02 K/ L 0.00-0.20 (test code = 417) 0.00BASI METABOLIC [id number] 04:58:00 Test Item Value Reference Range Interpretation Comments SODIUM (BEAKER) 142 meq/L 136-145 (test code = 381) POTASSIUM (BEAKER) 3.6 meq/L 3.5-5.1 Specimen slightly (test code = 379) hemolyzed CHLORIDE (BEAKER) 98 meq/L 98-107 (test code = 382) CO2 (BEAKER) (test 32 meq/L 22-29 H code = 355) BLOOD UREA NITROGEN 32 mg/dL 7-21 H (BEAKER) (test code = 354) CREATININE (BEAKER) 0.92 mg/dL 0.57-1.25 Specimen slightly (test code = 358) hemolyzed GLUCOSE RANDOM 134 mg/dL 70-105 H (BEAKER) (test code = 652) CALCIUM (BEAKER) 11.5 mg/dL 8.4-10.2 H (test code = 697) EGFR (BEAKER) (test 60 mL/min/1.73 ESTIMA BOUCHRA GFR IS code = 1092) sq m NOT ACCURATE CREATININE CLEARANCE IN PREDICTING GLOMERULAR FILTRATION RATE . ESTIMATED GFR I S NOT APPLICABLE FOR DIALYSIS PATIEN TS. [id number] 04:57:00 Test Item Value Reference Range Interpretation Comments MAGNESIUM (BEAKER) 2.5 mg/dL 1.6-2.6 Specimen slightly (test code = 627) hemolyzed [id number] 04:57:00 Test Item Value Reference Range Interpretation Comments PHOSPHORUS (BEAKER) 3.3 mg/dL 2.3-4.7 Specimen slightly (test code = 604) hemolyzed POCT-GLUCOSE [id number] 00:44:00 Test Item Value Reference Range Interpretation Comments POC-GLUCOSE METER 142 mg/dL 70-110 H TESTED AT [place] [address] ([facility]) (test code = [facility] 1538) [id number] POCT-GLUCOSE [id number] 18:34:00 Test Item Value Reference Range Interpretation Comments POC-GLUCOSE METER 115 mg/dL 70-110 H TESTED AT [place] [address] ([facility]) (test code = [facility] 1538) [address] POCT-GLUCOSE [id number] 12:21:00 Test Item Value Reference Range Interpretation Comments POC-GLUCOSE METER 123 mg/dL 70-110 H TESTED AT [place] [address] ([facility]) (test code = [facility] 1538) [address] URINE [id number] 10:42:00 Test Item Value Reference Range Interpretation Comments CULTURE (BEAKER) (test code = 1095) No growth [id number] 06:53:00 Test Item Value Reference Range Interpretation Comments POTASSIUM (BEAKER) (test code = 3.6 meq/L 3.5-5.1 379) Check Serum Potassium level 2 hours after oral potassium replacement completed or 30 min after intravenous potassium replacement.[id number] 06:53:00 Test Item Value Reference Range Interpretation Comments MAGNESIUM (BEAKER) (test code = 2.7 mg/dL 1.6-2.6 H 627) Check Serum Potassium level 2 hours after oral potassium replacement completed or 30 min after intravenous potassium replacement.POCT-GLUCOSE [id number] 06:27:00 Test Item Value Reference Range Interpretation Comments POC-GLUCOSE METER 113 mg/dL 70-110 H TESTED AT [facility] 6720 (BEAKER) (test code = [facility] 1538) [address] BASIC METABOLIC [id number] 02:30:00 Test Item Value Reference Range Interpretation Comments SODIUM (BEAKER) 139 meq/L 136-145 (test code = 381) POTASSIUM (BEAKER) 3.8 meq/L 3.5-5.1 (test code = 379) CHLORIDE (BEAKER) 95 meq/L 98-107 L (test code = 382) CO2 (BEAKER) (test 30 meq/L 22-29 H code = 355) BLOOD UREA NITROGEN 24 mg/dL 7-21 H (BEAKER) (test code = 354) CREATININE (BEAKER) 0.96 mg/dL 0.57-1.25 (test code = 358) GLUCOSE RANDOM 122 mg/dL 70-105 H (BEAKER) (test code = 652) CALCIUM (BEAKER) 11.6 mg/dL 8.4-10.2 H (test code = 697) EGFR (BEAKER) (test 57 mL/min/1.73 ESTIMA BOUCHRA GFR IS code = 1092) sq m NOT ACCURATE CREATININE CLEARANCE IN PREDICTING GLOMERULAR FILTRATION RATE . ESTIMATED GFR I S NOT APPLICABLE FOR DIALYSIS PATIEN TS. [id number] 02:29:00 Test Item Value Reference Range Interpretation Comments PHOSPHORUS (BEAKER) (test code = 3.5 mg/dL 2.3-4.7 604) [id number] 02:29:00 Test Item Value Reference Range Interpretation Comments MAGNESIUM (BEAKER) (test code = 2.2 mg/dL 1.6-2.6 627) [id number] 02:29:00 Test Item Value Reference Range Interpretation Comments SODIUM (BEAKER) (test code = 381) 139 meq/L 136-145 CBC W/PLT COUNT & AUTO [id number] 02:21:00 Test Item Value Reference Range Interpretation Comments WHITE BLOOD CELL COUNT (BEAKER) 6.2 K/ L 4.0-10.0 (test code = 775) RED BLOOD CELL COUNT (BEAKER) 3.77 M/ L 4.00-5.00 L (test code = 761) HEMOGLOBIN (BEAKER) (test code = 11.8 GM/DL 12.0-15.0 L 410) HEMATOCRIT (BEAKER) (test code = 36.1 % 36.0-45.0 411) MEAN CORPUSCULAR VOLUME (BEAKER) 95.9 fL 82.0-99.0 (test code = 753) MEAN CORPUSCULAR HEMOGLOBIN 31.3 pg 27.0-33.0 (BEAKER) (test code = 751) MEAN CORPUSCULAR HEMOGLOBIN CONC 32.6 GM/DL 32.0-36.0 (BEAKER) (test code = 752) RED CELL DISTRIBUTION WIDTH 16.7 % 10.3-14.2 H (BEAKER) (test code = 412) PLATELET COUNT (BEAKER) (test 247 K/CU MM 150-430 code = 756) MEAN PLATELET VOLUME (BEAKER) 6.3 fL 6.5-10.5 L (test code = 754) NUCLEATED RED BLOOD CELLS 0 /100 WBC 0-0 (BEAKER) (test code = 413) NEUTROPHILS RELATIVE PERCENT 73 % (BEAKER) (test code = 429) LYMPHOCYTES RELATIVE PERCENT 19 % (BEAKER) (test code = 430) MONOCYTES RELATIVE PERCENT 8 % (BEAKER) (test code = 431) EOSINOPHILS RELATIVE PERCENT 0 % (BEAKER) (test code = 432) BASOPHILS RELATIVE PERCENT 0 % (BEAKER) (test code = 437) NEUTROPHILS ABSOLUTE COUNT 4.53 K/ L 1.80-8.00 (BEAKER) (test code = 670) LYMPHOCYTES ABSOLUTE COUNT 1.16 K/ L 1.48-4.50 L (BEAKER) (test code = 414) MONOCYTES ABSOLUTE COUNT (BEAKER) 0.47 K/ L 0.00-1.30 (test code = 415) EOSINOPHILS ABSOLUTE COUNT 0.02 K/ L 0.00-0.50 (BEAKER) (test code = 416) BASOPHILS ABSOLUTE COUNT (BEAKER) 0.00 K/ L 0.00-0.20 (test code = 417) 0.00POCT-GLUCOSE [id number] 00:44:00 Test Item Value Reference Range Interpretation Comments POC-GLUCOSE METER 121 mg/dL 70-110 H TESTED AT [place] [address] (BEAKER) (test code = [facility] 1538) [address] [id number] 20:34:00 Test Item Value Reference Range Interpretation Comments SODIUM (BEAKER) (test code = 381) 138 meq/L 136-145 HEPATIC FUNCTION [id number] 20:34:00 Test Item Value Reference Range Interpretation Comments TOTAL PROTEIN (BEAKER) (test code = 6.7 gm/dL 6.0-8.3 770) ALBUMIN (BEAKER) (test code = 1145) 3.6 g/dL 3.5-5.0 BILIRUBIN TOTAL (BEAKER) (test code 0.3 mg/dL 0.2-1.2 = 377) BILIRUBIN DIRECT (BEAKER) (test 0.2 mg/dL 0.1-0.5 code = 706) ALKALINE PHOSPHATASE (BEAKER) (test 148 U/L 40-150 code = 346) AST (SGOT) (BEAKER) (test code = 15 U/L 5-34 353) ALT (SGPT) (BEAKER) (test code = 15 U/L 6-55 347) [id number] 20:25:00 Test Item Value Reference Range Interpretation Comments AMMONIA (BEAKER) (test code = 348) 30 mol/L 18-72 POCT-GLUCOSE [id number] 19:58:00 Test Item Value Reference Range Interpretation Comments POC-GLUCOSE METER 125 mg/dL 70-110 H TESTED AT [place] [address] (BEAKER) (test code = [facility] 1538) [address] [id number] 14:30:00 Test Item Value Reference Range Interpretation Comments RPR SCREEN (BEAKER) (test code = Nonreactive Nonreactive 420) [id number] 13:35:00 Test Item Value Reference Range Interpretation Comments SODIUM (BEAKER) (test code = 381) 136 meq/L 136-145 [id number] 13:23:00 Test Item Value Reference Range Interpretation Comments CORTISOL, TOTAL (BEAKER) (test 11.7 ug/dL 3.7-19.4 code = 2755) POCT-GLUCOSE [id number] 13:22:00 Test Item Value Reference Range Interpretation Comments POC-GLUCOSE METER 117 mg/dL 70-110 H TESTED AT [facility] 6720 (BEAKER) (test code = [facility] [place] 4[address]) [address] B-TYPE NATRIURETIC FACTOR (BNP)2016-12-26 11:55:00 Test Item Value Reference Range Interpretation Comments B-TYPE NATRIURETIC PEPTIDE (BEAKER) 115 pg/mL 0-100 H (test code = 700) [id number] 11:43:00 Test Item Value Reference Range Interpretation Comments MAGNESIUM (BEAKER) 2.5 mg/dL 1.6-2.6 Specimen slightly (test code = 627) hemolyzed OSMOLALITY, [id number] 04:32:00 Test Item Value Reference Range Interpretation Comments OSMOLALITY, SERUM (BEAKER) (test 303 mOsm/kg 275-295 H code = 615) LIPID [id number] 04:04:00 Test Item Value Reference Range Interpretation Comments TRIGLYCERIDES (BEAKER) (test code = 94 mg/dL 540) CHOLESTEROL (BEAKER) (test code = 197 mg/dL 631) HDL CHOLESTEROL (BEAKER) (test code 54 mg/dL = 976) LDL CHOLESTEROL CALCULATED (BEAKER) 124 mg/dL (test code = 633) Triglyceride Reference Range: Low Risk <150 Borderline 150-199 High Risk 200-499 Very High Risk >=500Cholesterol Reference Range: Low Risk <200 Borderline 200-239 High Risk >240HDL Cholesterol Reference Range: Low Risk >=60 High Risk <40LDL Cholesterol Reference Range: Optimal <100 Near Optimal 100-129 Borderline 130-159 High 160-189 Very High >=190 Fasting [id number] 04:03:00 Test Item Value Reference Range Interpretation Comments PHOSPHORUS (BEAKER) (test code = 3.2 mg/dL 2.3-4.7 604) BASIC METABOLIC [id number] 04:03:00 Test Item Value Reference Range Interpretation Comments SODIUM (BEAKER) 130 meq/L 136-145 L (test code = 381) POTASSIUM (BEAKER) 4.0 meq/L 3.5-5.1 (test code = 379) CHLORIDE (BEAKER) 89 meq/L 98-107 L (test code = 382) CO2 (BEAKER) (test 30 meq/L 22-29 H code = 355) BLOOD UREA NITROGEN 24 mg/dL 7-21 H (BEAKER) (test code = 354) CREATININE (BEAKER) 0.96 mg/dL 0.57-1.25 (test code = 358) GLUCOSE RANDOM 111 mg/dL 70-105 H (BEAKER) (test code = 652) CALCIUM (BEAKER) 11.1 mg/dL 8.4-10.2 H (test code = 697) EGFR (BEAKER) (test 57 mL/min/1.73 ESTIMA BOUCHRA GFR IS code = 1092) sq m NOT ACCURATE CREATININE CLEARANCE IN PREDICTING GLOMERULAR FILTRATION RATE . ESTIMATED GFR I S NOT APPLICABLE FOR DIALYSIS PATIEN TS. CBC W/PLT COUNT & AUTO [id number] 03:43:00 Test Item Value Reference Range Interpretation Comments WHITE BLOOD CELL COUNT (BEAKER) 6.9 K/ L 4.0-10.0 (test code = 775) RED BLOOD CELL COUNT (BEAKER) 3.81 M/ L 4.00-5.00 L (test code = 761) HEMOGLOBIN (BEAKER) (test code = 12.0 GM/DL 12.0-15.0 410) HEMATOCRIT (BEAKER) (test code = 35.6 % 36.0-45.0 L 411) MEAN CORPUSCULAR VOLUME (BEAKER) 93.4 fL 82.0-99.0 (test code = 753) MEAN CORPUSCULAR HEMOGLOBIN 31.4 pg 27.0-33.0 (BEAKER) (test code = 751) MEAN CORPUSCULAR HEMOGLOBIN CONC 33.6 GM/DL 32.0-36.0 (BEAKER) (test code = 752) RED CELL DISTRIBUTION WIDTH 15.4 % 10.3-14.2 H (BEAKER) (test code = 412) PLATELET COUNT (BEAKER) (test 250 K/CU MM 150-430 code = 756) MEAN PLATELET VOLUME (BEAKER) 6.0 fL 6.5-10.5 L (test code = 754) NUCLEATED RED BLOOD CELLS 0 /100 WBC 0-0 (BEAKER) (test code = 413) NEUTROPHILS RELATIVE PERCENT 67 % (BEAKER) (test code = 429) LYMPHOCYTES RELATIVE PERCENT 20 % (BEAKER) (test code = 430) MONOCYTES RELATIVE PERCENT 12 % (BEAKER) (test code = 431) EOSINOPHILS RELATIVE PERCENT 1 % (BEAKER) (test code = 432) BASOPHILS RELATIVE PERCENT 0 % (BEAKER) (test code = 437) NEUTROPHILS ABSOLUTE COUNT 4.64 K/ L 1.80-8.00 (BEAKER) (test code = 670) LYMPHOCYTES ABSOLUTE COUNT 1.38 K/ L 1.48-4.50 L (BEAKER) (test code = 414) MONOCYTES ABSOLUTE COUNT (BEAKER) 0.81 K/ L 0.00-1.30 (test code = 415) EOSINOPHILS ABSOLUTE COUNT 0.05 K/ L 0.00-0.50 (BEAKER) (test code = 416) BASOPHILS ABSOLUTE COUNT (BEAKER) 0.03 K/ L 0.00-0.20 (test code = 417) [id number] 01:55:00 Test Item Value Reference Range Interpretation Comments POTASSIUM (BEAKER) (test code = 3.2 meq/L 3.5-5.1 L 379) [id number] 01:55:00 Test Item Value Reference Range Interpretation Comments MAGNESIUM (BEAKER) (test code = 1.7 mg/dL 1.6-2.6 627) TROPONIN [id number] 01:21:00 Test Item Value Reference Range Interpretation Comments TROPONIN I (BEAKER) (test code = 0.01 ng/mL 0.00-0.03 397) Effective 08/19/2014: Reference Range ChangeNew: 0.00-0.03 Previous 0.00- 0.15Troponin I (TnI) levelsmust be interpreted in the context of the presenting symptoms and the clinical findings. Elevated TnI levels indicate myocardial damage, but are not specific for ischemic heart disease. Elevated TnI levels are seen in patients with other cardiac conditions (including myocarditis and congestive heart failure), and slight TnI elevations occur in patients with other conditions, including sepsis, renal failure, acidosis, acute neurological disease, and persistent tachyarrhythmia.POCT-GLUCOSE [id number] 01:03:00 Test Item Value Reference Range Interpretation Comments POC-GLUCOSE METER 161 mg/dL 70-110 H TESTED AT [facility] 6720 (BEAKER) (test code = [facility] [place] 1538) [address] POCT-GLUCOSE [id number] 00:22:00 Test Item Value Reference Range Interpretation Comments POC-GLUCOSE METER 62 mg/dL 70-110 L Notified Simeon Castellon MD/TESTED AT ([facility]) (test code = [facility] [address]) [facility] [address] HEMOGLOBIN [id number] 22:44:00 Test Item Value Reference Range Interpretation Comments HEMOGLOBIN A1C (BEAKER) (test code = 5.0 % 4.3-6.1 368) TSH/FREE T4 IF [id number] 21:14:00 Test Item Value Reference Range Interpretation Comments THYROID STIMULATING HORMONE 2.66 uIU/mL 0.35-4.94 (BEAKER) (test code = 772) VITAMIN B12 AND [id number] 21:14:00 Test Item Value Reference Range Interpretation Comments VITAMIN B12 (BEAKER) (test code = 325 pg/mL 213-816 774) FOLATE (BEAKER) (test code = 362) 11.9 ng/mL >=7.0 Effective 08/19/2014: Folate Reference Range ChangeNew: >=7.0 Previous: >=5.4CBC W/PLT COUNT & AUTO [id number] 19:39:00 Test Item Value Reference Range Interpretation Comments WHITE BLOOD CELL COUNT (BEAKER) 5.3 K/ L 4.0-10.0 (test code = 775) RED BLOOD CELL COUNT (BEAKER) 3.72 M/ L 4.00-5.00 L (test code = 761) HEMOGLOBIN (BEAKER) (test code = 11.6 GM/DL 12.0-15.0 L 410) HEMATOCRIT (BEAKER) (test code = 35.0 % 36.0-45.0 L 411) MEAN CORPUSCULAR VOLUME (BEAKER) 94.2 fL 82.0-99.0 (test code = 753) MEAN CORPUSCULAR HEMOGLOBIN 31.3 pg 27.0-33.0 (BEAKER) (test code = 751) MEAN CORPUSCULAR HEMOGLOBIN CONC 33.2 GM/DL 32.0-36.0 (BEAKER) (test code = 752) RED CELL DISTRIBUTION WIDTH 16.5 % 10.3-14.2 H (BEAKER) (test code = 412) PLATELET COUNT (BEAKER) (test 220 K/CU MM 150-430 code = 756) MEAN PLATELET VOLUME (BEAKER) 6.2 fL 6.5-10.5 L (test code = 754) NUCLEATED RED BLOOD CELLS 0 /100 WBC 0-0 (BEAKER) (test code = 413) NEUTROPHILS RELATIVE PERCENT 73 % (BEAKER) (test code = 429) LYMPHOCYTES RELATIVE PERCENT 17 % (BEAKER) (test code = 430) MONOCYTES RELATIVE PERCENT 9 % (BEAKER) (test code = 431) EOSINOPHILS RELATIVE PERCENT 0 % (BEAKER) (test code = 432) BASOPHILS RELATIVE PERCENT 0 % (BEAKER) (test code = 437) NEUTROPHILS ABSOLUTE COUNT 3.85 K/ L 1.80-8.00 (BEAKER) (test code = 670) LYMPHOCYTES ABSOLUTE COUNT 0.91 K/ L 1.48-4.50 L (BEAKER) (test code = 414) MONOCYTES ABSOLUTE COUNT (BEAKER) 0.49 K/ L 0.00-1.30 (test code = 415) EOSINOPHILS ABSOLUTE COUNT 0.02 K/ L 0.00-0.50 (BEAKER) (test code = 416) BASOPHILS ABSOLUTE COUNT (BEAKER) 0.01 K/ L 0.00-0.20 (test code = 417) 0.00TROPONIN [id number] 19:31:00 Test Item Value Reference Range Interpretation Comments TROPONIN I (BEAKER) (test code = 397) < ng/mL 0.00-0.03 Effective 08/19/2014: Reference Range ChangeNew: 0.00-0.03 Previous 0.00- 0.15Troponin I (TnI) levelsmust be interpreted in the context of the presenting symptoms and the clinical findings. Elevated TnI levels indicate myocardial damage, but are not specific for ischemic heart disease. Elevated TnI levels are seen in patients with other cardiac conditions (including myocarditis and congestive heart failure), and slight TnI elevations occur in patients with other conditions, including sepsis, renal failure, acidosis, acute neurological disease, and persistent tachyarrhythmia.B-TYPE NATRIURETIC FACTOR (BNP) 2016-12-25 19:31:00 Test Item Value Reference Range Interpretation Comments B-TYPE NATRIURETIC PEPTIDE (BEAKER) 90 pg/mL 0-100 (test code = 700) LIPID [id number] 19:24:00 Test Item Value Reference Range Interpretation Comments TRIGLYCERIDES (BEAKER) (test code = 83 mg/dL 540) CHOLESTEROL (BEAKER) (test code = 198 mg/dL 631) HDL CHOLESTEROL (BEAKER) (test code 54 mg/dL = 976) LDL CHOLESTEROL CALCULATED (BEAKER) 127 mg/dL (test code = 633) Triglyceride Reference Range: Low Risk <150 Borderline 150-199 High Risk 200- 499 Very High Risk >=500Cholesterol Reference Range: Low Risk <200 Borderline 200-239 High Risk >240HDL Cholesterol Reference Range: Low Risk >=60 High Risk <40LDL Cholesterol Reference Range: Optimal <100 Near Optimal 100-129 Borderline 130-159 High 160-189 Very High >=190BASIC METABOLIC [id number] 19:24:00 Test Item Value Reference Range Interpretation Comments SODIUM (BEAKER) 133 meq/L 136-145 L (test code = 381) POTASSIUM (BEAKER) 3.7 meq/L 3.5-5.1 (test code = 379) CHLORIDE (BEAKER) 90 meq/L 98-107 L (test code = 382) CO2 (BEAKER) (test 31 meq/L 22-29 H code = 355) BLOOD UREA NITROGEN 25 mg/dL 7-21 H (BEAKER) (test code = 354) CREATININE (BEAKER) 0.83 mg/dL 0.57-1.25 (test code = 358) GLUCOSE RANDOM 126 mg/dL 70-105 H (BEAKER) (test code = 652) CALCIUM (BEAKER) 11.0 mg/dL 8.4-10.2 H (test code = 697) EGFR (BEAKER) (test 68 mL/min/1.73 ESTIMA BOUCHRA GFR IS code = 1092) sq m NOT ACCURATE CREATININE CLEARANCE IN PREDICTING GLOMERULAR FILTRATION RATE . ESTIMATED GFR I S NOT APPLICABLE FOR DIALYSIS PATIEN TS. PROTHROMBIN [id number] 19:17:00 Test Item Value Reference Range Interpretation Comments PROTIME (BEAKER) (test code = 14.1 seconds 11.7-14.7 759) INR (BEAKER) (test code = 370) 1.1 <=5.9 RECOMMENDED COUMADIN/WARFARIN INR THERAPY RANGESSTANDARD DOSE: 2.0 - 3.0 Includes: PROPHYLAXIS for venous thrombosis, systemic embolization; TREATMENT for venous thrombosis and/or pulmonary embolus.HIGH RISK: Target INR is 2.5-3.5 for patients with mechanical heart valves.[id number] 19:17:00 Test Item Value Reference Range Interpretation Comments PARTIAL THROMBOPLASTIN TIME 24.9 seconds 22.5-36.0 (BEAKER) (test code = 760) URINALYSIS W/ [id number] 19:15:00 Test Item Value Reference Range Interpretation Comments COLOR (BEAKER) (test code = 470) Yellow CLARITY (BEAKER) (test code = Clear 469) SPECIFIC GRAVITY UA (BEAKER) 1.009 1.001-1.035 (test code = 468) PH UA (BEAKER) (test code = 467) 7.0 5.0-8.0 PROTEIN UA (BEAKER) (test code = Negative Negative 464) GLUCOSE UA (BEAKER) (test code = Negative Negative 365) KETONES UA (BEAKER) (test code = Negative Negative 371) BILIRUBIN UA (BEAKER) (test code Negative Negative = 462) BLOOD UA (BEAKER) (test code = Negative Negative 461) NITRITE UA (BEAKER) (test code = Negative Negative 465) LEUKOCYTE ESTERASE UA (BEAKER) Negative Negative (test code = 466) UROBILINOGEN UA (BEAKER) (test 0.2 mg/dL 0.2-1.0 code = 463) RBC UA (BEAKER) (test code = < /HPF 519) WBC UA (BEAKER) (test code = 1 /HPF 520) SQUAMOUS EPITHELIAL (BEAKER) < /HPF (test code = 516) SOURCE(BEAKER) (test code = Urine, [place] 7934) POCT-GLUCOSE [id number] 18:33:00 Test Item Value Reference Range Interpretation Comments POC-GLUCOSE METER 75 mg/dL 70-110 TESTED AT [facility] 67[address] (BEAKER) (test code = [place] [address])"
--- NOTE | 2022-05-11 17:08 | RAD REPORT ---
EXAM DESCRIPTION: RAD - Chest Single View - 05/11/2022 4:57 pm CLINICAL HISTORY: FALL COMPARISON: Portable 07/15/2021 TECHNIQUE: AP portable chest image was obtained 05/11/2022 4:57 pm . FINDINGS: Lung volumes are low accentuating the baseline prominent interstitial pattern. Focal densi ty in the medial left apex seen on the prior study is still present but does not appear to enlarge. Cardiac silhouette is prominent. Central vasculature is also prominent. Rotation, body habitus and s hallow inspiration limits accurate assessment of the mediastinum. No measurable pleural effusion and no pneumothorax. No acute bony abnormality seen. No acute aortic findings suspected. IMPRESSION: No acute cardiopulmonary process. Focal density in the medial left apex not substantially different from prior imaging.
[2022-05-11] MEDS ORDERED: TETANUS & DIPHTHERIA TOX,ADULT 0.5 ML VIAL ONE (17:42)
--- NOTE | 2022-05-11 17:51 | RAD REPORT ---
EXAM DESCRIPTION: CT - CTHCSPWOC - 05/11/2022 5:37 pm CLINICAL HISTORY: fall on blood thinners COMPARISON: CT HEAD CSPINE MPR WO CONTRAST dated 10/17/2013; Head Brain Wo Cont dated 07/15/2021 TECHNIQUE: Axial 5 mm thick images of the head were obtained. Axial 2 mm thick images of the cervic al spine were obtained with sagittal and coronal reconstruction images generated and reviewed. All CT scans are performed using dose optimization technique as appropriate and may include automated exposure control or mA/KV adjustment according to patient size. FINDINGS: No intracranial hemorrhage is present. There is no mass effect, edema or shift of midline structures. Patient has a baseline of moderate severity atrophy primarily involving the frontal lobes . Large area encephalomalacia and gliosis noted involving the right frontal lobe and the right tempor al lobe, unchanged from July 2021. No suspicion for acute infarction. No acute cortical based infa rction. No cortical edema or sulcal effacement. Ventricles are in proportion to the volume loss. Dens e arterial tree calcifications are present. Small posterior right parietal scalp hematoma present. Ma stoid air cells and paranasal sinuses are clear. No globe or orbit abnormality seen. Cervical bodies are normal in height. There is right lateral tilt of the cervical spine likely a posi tioning artifact. Significant C6-7 disc space narrowing seen with degenerative changes to the endplat es. There is very slight retrolisthesis of C6 relative to C7. Elsewhere no significant disc space girish rowing. Prominent facet joint degenerative changes are present. No fracture or acute bony abnormality . Central canal detail is inherently limited. No paraspinal mass or hematoma. IMPRESSION: No hemorrhage or acute intracranial finding identified. The right frontal and temporal g liosis and encephalomalacia pattern has not change from July 2021. Cervical spine degenerative changes are present most notable at the C6-7 disc level. Degenerative ch anges have progressed since the 2013 comparison. No acute finding identified.
--- NOTE | 2022-05-11 17:57 | RAD REPORT ---
EXAM DESCRIPTION: CT - Pelvis Wo Cont - 05/11/2022 5:37 pm CLINICAL HISTORY: trauma, fall with pelvic and hip pain COMPARISON: No comparisons TECHNIQUE: Axial noncontrast 2 millimeter thick images of the pelvis were obtained. Sagittal and cor onal reconstruction images were generated and reviewed. All CT scans are performed using dose optimization technique as appropriate and may include automate d exposure control or mA/KV adjustment according to patient size. FINDINGS: No fracture of the bony pelvis or proximal femora identified. There is no dislocation or a cute femoral head abnormality seen. Pubic symphysis degenerative changes are present. SI joint degene rative changes minimal. Sacral ala appear intact. Degenerative changes are seen in the lower 2 lumbar disc levels. Central canal is inherently limited. There is a large 12 x 6 x 4 mm hematoma in the subcutaneous fatty tissues lateral to the right femur. There is seen congestion and edema in the subcutaneous fatty tissues lateral to the left hip joint a nd proximal femur. This area falls outside of the field of view. Large body habitus limits the examin ation overall. Large amount of stool is present distending the rectum to approximately 6 cm. No acute bowel finding in the pelvis. No free fluid seen. IMPRESSION: No fracture of the pelvis or proximal femurs identifiable. Large 12 x 6 x 4 cm hematoma in the fatty tissues lateral to the right hip joint and proximal femur. There appears to be some congestion, edema or contusion in the subcutaneous fatty tissues lateral to the left hip joint. This area falls outside of the field of view.
--- NOTE | 2022-05-11 18:05 | EDPHYS ---
Physician Documentation [facility] Name: Rocio Qiuroz Age: 77 yrs Sex: Female : 1945 Arrival Date: 05/11/2022 Time: 16:[address] Private MD: ED Physician Brigette Menon HPI: 05/11 17:40 This 77 yrs old Female presents to ER via EMS with complaints of Fall Injury. snw 17:40 Details of fall: The patient fell from a height, bed, and struck bedside table. Onset: snw The symptoms/episode began/occurred suddenly, just prior to arrival. Associated injuries: The patient sustained injury to the head, laceration, 2 cm(s), of the left occipital area. Severity of symptoms: At their worst the symptoms were mild, moderate. The patient has experienced a previous episode. The patient has not recently seen a physician. Historical: - Allergies: 16:34 Demerol; ld1 16:34 Aspirin; ld1 16:34 Haldol; ld1 16:34 Ibuprofen; ld1 16:34 Iodine; ld1 16:34 IV contrast; ld1 16:34 Latex, Natural Rubber; ld1 16:34 Morphine; ld1 16:34 PENICILLINS; ld1 - PMHx: 16:34 Anemia; Atrial Fib; Cerebral infarction; Sleep Apnea; vitamin d deficiency; ld1 - PSHx: 16:34 None; ld1 - Immunization history: Last tetanus immunization: unknown. - Social history:: Smoking status: Patient denies any tobacco usage or history of. Patient/guardian denies using alcohol. ROS: 17:37 Constitutional: Negative for fever, chills, and weight loss, Eyes: Negative for injury, snw pain, redness, and discharge, ENT: Negative for injury, pain, and discharge, Neck: Negative for injury, pain, and swelling, Cardiovascular: Negative for chest pain, palpitations, and edema, Respiratory: Negative for shortness of breath, cough, wheezing, and pleuritic chest pain, Abdomen/GI: Negative for abdominal pain, nausea, vomiting, diarrhea, and constipation, Back: Negative for injury and pain, : Negative for injury, bleeding, discharge, and swelling. 17:37 MS/extremity: Positive for injury or acute deformity, pain, of the pelvis and left leg and scalp. 17:37 Skin: Positive for laceration(s), of the scalp. 17:37 Neuro: Positive for fall off bed onto bedside table, struck occiput, Negative for loss of consciousness. Exam: 17:32 Constitutional: This is a well developed, well nourished patient who is awake, alert, snw and in no acute distress. 17:32 Eyes: Pupils equal round and reactive to light, extra-ocular motions intact. Lids and lashes normal. Conjunctiva and sclera are non-icteric and not injected. Cornea within normal limits. Periorbital areas with no swelling, redness, or edema. ENT: Nares patent. No nasal discharge, no septal abnormalities noted. Tympanic membranes are normal and external auditory canals are clear. Oropharynx with no redness, swelling, or masses, exudates, or evidence of obstruction, uvula midline. Mucous membranes moist. Neck: Trachea midline, no thyromegaly or masses palpated, and no cervical lymphadenopathy. Supple, full range of motion without nuchal rigidity, or vertebral point tenderness. No Meningismus. Chest/axilla: Normal chest wall appearance and motion. Nontender with no deformity. No lesions are appreciated. Cardiovascular: Regular rate and rhythm with a normal S1 and S2. No gallops, murmurs, or rubs. Normal PMI, no JVD. No pulse deficits. Respiratory: Lungs have equal breath sounds bilaterally, clear to auscultation and percussion. No rales, rhonchi or wheezes noted. No increased work of breathing, no retractions or nasal flaring. Abdomen/GI: Soft, non-tender, with normal bowel sounds. No distension or tympany. No guarding or rebound. No evidence of tenderness throughout. Back: No spinal tenderness. No costovertebral tenderness. Full range of motion. Neuro: Awake and alert, GCS 15, oriented to person, place, time, and situation. Cranial nerves II-XII grossly intact. Motor strength 5/5 in all extremities. Sensory grossly intact. Cerebellar exam normal. Normal gait. Psych: Awake, alert, with orientation to person, place and time. Behavior, mood, and affect are within normal limits. 17:32 Head/face: Noted is contusion, a laceration(s), that is superficial, 2 cm(s), of the left occipital area. 17:32 Musculoskeletal/extremity: Circulation is intact in all extremities. previous CVA left sided weakness 17:32 Skin: Appearance: normal except for affected area, injury, laceration(s), the wound is approximately 2 cm(s), with a depth of 1 cm(s), of the scalp, pain to right hip, remote injury to right knee. Vital Signs: 16:27 BP 122 / 78; Pulse 86; Resp 14; Temp 97.6(TE); Pulse Ox 100% on R/A; Pain 0/10; ld1 19:00 BP 106 / 57; Pulse 93; Resp 22; Pulse Ox 94% on R/A; jg9 Amy Coma Score: 16:27 Eye Response: spontaneous(4). Verbal Response: oriented(5). Motor Response: obeys ld1 commands(6). Total: 15. Trauma Score (Adult): 16:27 Eye Response: spontaneous(1); Verbal Response: oriented(1); Motor Response: obeys ld1 commands(2); Systolic BP: > 89 mm Hg(4); Respiratory Rate: 10 to 29 per min(4); [place] Score: 15; Trauma Score: 12 Laceration: 18:30 Wound Repair of 2cm ( 0.8in ) subcutaneous laceration to scalp. Linear shaped.. Distal snw neuro/vascular/tendon intact. Anesthesia: Local anesthetic administered with 0 mls of 1% lidocaine. Wound prep: Simple cleansing with hibiclenz. Skin closed with 1 1-0 Prolene using staple gun. Dressed with 4x4's. Patient tolerated well. MDM: 16:46 Patient medically screened. snw 18:02 Data reviewed: vital signs, nurses notes. Data interpreted: Pulse oximetry: on room air snw is 100 %. Interpretation: normal. Counseling: I had a detailed discussion with the patient and/or guardian regarding: the historical points, exam findings, and any diagnostic results supporting the discharge/admit diagnosis, radiology results, the need for outpatient follow up, to return to the emergency department if symptoms worsen or persist or if there are any questions or concerns that arise at home. Response to treatment: the patient's symptoms have mildly improved after treatment. Special discussion: Based on the patient's history, exam and DX evaluation, there is no indication for emergent intervention or inpatient TX. It is understood by the patient/guardian that if the SXs persist or worsen they need to return immediately for re-evaluation. Based on the history and exam findings, there is no indication for further emergent testing or inpatient evaluation. I discussed with the patient/guardian the need to see the primary care provider for further evaluation of the symptoms. 05/11 16:49 Order name: Chest Single View; Complete Time: 17:25 EDMS 05/11 16:49 Order name: CT Head C Spine; Complete Time: 17:53 snw 05/11 16:49 Order name: CT Pelvis wo Cont; Complete Time: 18:01 snw 05/11 16:49 Order name: Wound Care snw 05/11 16:49 Order name: Wound dressing snw Administered Medications: 18:18 Not Given (allergicc): Tetanus-Diphtheria Toxoid Adult 0.5 ml IM once; Provide Vaccine snw Information Statement (VIS). 18:28 Not Given (not availablee): Magnesium Citrate Liquid 300 ml PO once snw 18:28 Drug: HYDROcodone-acetaminophen 5 mg-325 mg 1 tabs {Note: 02/08 pain.} Route: PO; jg9 19:23 Follow up: Response: No adverse reaction; Pain is decreased jg9 19:05 Not Given (Patient Refused): Milk of Magnesia (magnesium hydroxide) Suspension 400 mg/5 jg9 mL 30 ml PO once Disposition Summary: 05/11/22 18:05 Discharge Ordered Location: Home snw Condition: Stable snw Diagnosis - Fall (on)(from) incline snw - Contusion of hip snw - Constipation, unspecified snw Followup: snw - With: Emergency Department - When: As needed - Reason: Worsening of condition Followup: snw - With: Private Physician - When: 1 - 2 days - Reason: Recheck today's complaints, Continuance of care, Re-evaluation by your physician Discharge Instructions: - Discharge Summary Sheet snw - Contusion snw - Constipation, Adult snw - Head Injury, Adult snw - Fall Prevention in the Home, Adult snw - Sutures, [place], or Adhesive Wound Closure snw Forms: - Medication Reconciliation Form snw - Thank You Letter snw - Antibiotic Education snw - Prescription Opioid Use snw - SBAR form bb Signatures: Dispatcher [employer] EDKS Irma Jarrett FNP-C RESERVATION AGENT-Csnw Mary Do, RN RN ld1 Camille Doss, RN RN jg9 Corrections: (The following items were deleted from the chart) 16:59 16:58 Chest Single View+RAD.RAD.BRZ ordered. EDMS EDMS 20:14 20:12 Wound Repair of 2cm ( 0.8in ) subcutaneous laceration to scalp. Linear shaped.. snw Distal neuro/vascular/tendon intact. Anesthesia: Local anesthetic administered with 0 mls of 1% lidocaine. Wound prep: Simple cleansing with hibiclenz. Skin closed with 1 1-0 Prolene using staple gun. Dressed with 4x4's. Patient tolerated well. snw
--- NOTE | 2022-05-11 18:05 | ER ---
Nurse's Notes [facility] Name: Rocio Quiroz Age: 77 yrs Sex: Female : 1945 Arrival Date: 05/11/2022 Time: 16:[address] Private MD: Diagnosis: Fall (on)(from) incline;Contusion of hip;Constipation, unspecified Presentation: 05/11 16:27 Chief complaint: EMS states: toned out to [facility] for fall. Patient fell out of bed ld1 onto bedside table, laceration and hematoma to back on head. Pt reports being on Apixaban. Negative LOC. Denies pain. Care prior to arrival: None. Mechanism of Injury: Fall out of bed. Trauma event details: Injury occurred in the [facility], Injury occurred: [facility]. 16:27 Acuity: LINDSEY 3 ld1 16:27 Method Of Arrival: EMS: [facility] ld1 16:33 Coronavirus screen: At this time, the client does not indicate any symptoms associated ld1 with coronavirus-19. Ebola Screen: No symptoms or risks identified at this time. Initial Sepsis Screen: Does the patient meet any 2 criteria? No. Patient's initial sepsis screen is negative. Does the patient have a suspected source of infection? No. Patient's initial sepsis screen is negative. Risk Assessment: Do you want to hurt yourself or someone else? Patient reports no desire to harm self or others. Onset of symptoms was May 11, 2022. Triage Assessment: 16:34 General: Appears in no apparent distress. comfortable, Behavior is calm, cooperative, ld1 appropriate for age. Pain: Denies pain. EENT: No signs and/or symptoms were reported regarding the EENT system. Neuro: Level of Consciousness is awake, alert, obeys commands, Oriented to person, place, time, situation. Cardiovascular: Capillary refill < 3 seconds Patient's skin is warm and dry. Respiratory: Airway is patent Respiratory effort is even, unlabored. GI: Abdomen is round non-distended. : No signs and/or symptoms were reported regarding the genitourinary system. Derm: No signs and/or symptoms reported regarding the dermatologic system. Musculoskeletal: No signs and/or symptoms reported regarding the musculoskeletal system. Trauma Activation: Alert Physician: ED Physician; Name: ; Notified At: 14:23; Arrived At: Physician: General Surgeon; Name: ; Notified At: 14:23; Arrived At: Physician: Radiology; Name: ; Notified At: 14:23; Arrived At: Physician: Respiratory; Name: ; Notified At: 14:23; Arrived At: Physician: Lab; Name: ; Notified At: 14:23; Arrived At: Historical: - Allergies: 16:34 Demerol; ld1 16:34 Aspirin; ld1 16:34 Haldol; ld1 16:34 Ibuprofen; ld1 16:34 Iodine; ld1 16:34 IV contrast; ld1 16:34 Latex, Natural Rubber; ld1 16:34 Morphine; ld1 16:34 PENICILLINS; ld1 - PMHx: 16:34 Anemia; Atrial Fib; Cerebral infarction; Sleep Apnea; vitamin d deficiency; ld1 - PSHx: 16:34 None; ld1 - Immunization history: Last tetanus immunization: unknown. - Social history:: Smoking status: Patient denies any tobacco usage or history of. Patient/guardian denies using alcohol. Screenin:27 Abuse screen: Denies threats or abuse. Denies injuries from another. Tuberculosis ld1 screening: No symptoms or risk factors identified. 19:30 Nutritional screening: No deficits noted. Fall Risk Fall in past 12 months (25 points). jg9 Primary Survey: 16:27 NO uncontrolled hemorrhage observed. A: The client is awake and alert. The airway is ld1 patent. Breathing/Chest: Spontaneous respiratory effort, equal unlabored respirations, breath sounds clear bilaterally, regular pattern, symmetrical chest rise and fall. Circulation: No external hemorrhage present. Regular and strong central pulse, skin warm/dry/normal color. Disability Client is alert. Exposure/Environment: All clothing and personal items were removed. Forensic evidence collection is not deemed to be indicated at this time. Items placed in patient belonging bag. Reassessment Breathing: Spontaneous respiratory effort, equal unlabored respirations, breath sounds clear bilaterally, regular pattern with symmetrical chest rise and fall. Respiratory effort Unlabored Circulation: No external hemorrhage noted. Regular and strong central pulse, skin warm/dry/normal color. Disability: Alert. Assessment: 16:27 General: Appears in no apparent distress. comfortable, Behavior is calm, cooperative, ld1 appropriate for age. Pain: Denies pain. Neuro: Level of Consciousness is awake, alert, obeys commands, Oriented to person, place, time, situation. EENT: No signs and/or symptoms were reported regarding the EENT system. Cardiovascular: Capillary refill < 3 seconds Patient's skin is warm and dry. Rhythm is sinus rhythm. Respiratory: Airway is patent Respiratory effort is even, unlabored. GI: Abdomen is round non-distended. : No signs and/or symptoms were reported regarding the genitourinary system. Derm: No signs and/or symptoms reported regarding the dermatologic system. Musculoskeletal: No signs and/or symptoms reported regarding the musculoskeletal system. Injury Description: Laceration sustained to scalp. 18:00 Reassessment: No changes from previously documented assessment. Patient and/or family jg9 updated on plan of care and expected duration. Pain level reassessed. Patient is alert, oriented x 3, equal unlabored respirations, skin warm/dry/pink. 19:00 Reassessment: No changes from previously documented assessment. Patient and/or family jg9 updated on plan of care and expected duration. Pain level reassessed. Patient is alert, oriented x 3, equal unlabored respirations, skin warm/dry/pink. patient requesting to go home. Vital Signs: 16:27 BP 122 / 78; Pulse 86; Resp 14; Temp 97.6(TE); Pulse Ox 100% on R/A; Pain 0/10; ld1 19:00 BP 106 / 57; Pulse 93; Resp 22; Pulse Ox 94% on R/A; jg9 Amy Coma Score: 16:27 Eye Response: spontaneous(4). Verbal Response: oriented(5). Motor Response: obeys ld1 commands(6). Total: 15. Trauma Score (Adult): 16:27 Eye Response: spontaneous(1); Verbal Response: oriented(1); Motor Response: obeys ld1 commands(2); Systolic BP: > 89 mm Hg(4); Respiratory Rate: 10 to 29 per min(4); Amy Score: 15; Trauma Score: 12 ED Course: 16:26 Patient arrived in ED. em1 16:27 Patient has correct armband on for positive identification. Placed in gown. Bed in low ld1 position. Call light in reach. Side rails up X2. Patient maintains SpO2 saturation greater than 95% on room air. 16:27 Patient maintains SpO2 saturation greater than 95% on room air. ld1 16:29 Triage completed. ld1 16:34 Arm band placed on right wrist. ld1 16:39 Irma Jarrett FNP-C is [facility]. snw 16:39 Brigette Menon MD is Attending Physician. snw 16:59 Chest Single View In Process Unspecified. EDMS 17:26 Camille Doss, RN is Primary Nurse. jg9 17:39 CT Head C Spine In Process Unspecified. EDMS 17:39 CT Pelvis wo Cont In Process Unspecified. EDMS 18:30 Thermoregulation: warm blanket given to patient. jg9 Administered Medications: 18:18 Not Given (allergicc): Tetanus-Diphtheria Toxoid Adult 0.5 ml IM once; Provide Vaccine snw Information Statement (VIS). 18:28 Not Given (not availablee): Magnesium Citrate Liquid 300 ml PO once snw 18:28 Drug: HYDROcodone-acetaminophen 5 mg-325 mg 1 tabs {Note: 5/10 pain.} Route: PO; jg9 19:23 Follow up: Response: No adverse reaction; Pain is decreased jg9 19:05 Not Given (Patient Refused): Milk of Magnesia (magnesium hydroxide) Suspension 400 mg/5 jg9 mL 30 ml PO once Outcome: 18:05 Discharge ordered by . snw 21:13 Patient left the ED. bb Signatures: Dispatcher [employer] EDOR Irma Jarrett FNP-C DEPUTY PROBATION OFFICER-Csnw Lauren Camargo RN RN Sohan Cuenca em1 Mary Do RN RN ld1 Camille Doss, CICI RN jg9 Corrections: (The following items were deleted from the chart) 19:05 18:47 Milk of Magnesia (magnesium hydroxide) Suspension 400 mg/5 mL 30 ml PO jg9 jg9
[2022-05-11] MEDS ORDERED: HYDROCODONE/APAP 5/325 MG TAB ONE (18:28)
[2022-05-11] MEDS ORDERED: MAGNESIUM HYDROXIDE 8% 30 ML ONE (18:39)
[2022-05-11] MEDS ORDERED: MAGNESIUM HYDROXIDE 8% 30 ML PO SCH (19:00)
[2022-05-11] MEDS ORDERED: GOLYTELY 4000 ML PO SCH (19:00)
[2022-05-12 00:39] VITALS: TEMP 97.6
[2022-05-12 00:43] VITALS: BP 106/57; O2SAT 94
== END 2022-05-11 21:13 | disposition home or self-care (01) ==
LOC: ER 16:18
PROC: 0JQ00ZZ Repair Scalp Subcutaneous Tissue and Fascia, Open Approach (ICD-10-PCS; principal; 2022-05-11)
DX: S01.01XA Laceration without foreign body of scalp, initial encounter (principal); S70.02XA Contusion of left hip, initial encounter; K59.00 Constipation, unspecified; W10.2XXA Fall (on)(from) incline, initial encounter; Z86.73 Personal history of transient ischemic attack (TIA), and cerebral infarction without residual deficits; Z88.5 Allergy status to narcotic agent; Z88.6 Allergy status to analgesic agent; Z91.040 Latex allergy status; Z91.041 Radiographic dye allergy status; Z91.048 Other nonmedicinal substance allergy status
CPT/HCPCS: 70450; 71045; 72125; 72192; 90714; 99284

== ENCOUNTER 2022-06-16 08:56 | Inpatient (IN) | payer OTHER ==
--- OUTSIDE RECORDS SUMMARY | 2022-06-16 09:10 | XMS REPORT | Continuity of Care Document ---
:1945 Author Organization [facility] t Address [address] [place] [address] Care Team Providers Name Role Phone Pcp, Patient Does Not Have A Primary Care Physician +[id number] Doctor Unassigned, [place] Attending Clinician Unavailable Arnulfo Roper RN Attending Clinician Unavailable Mattie Quinn Attending Clinician Doug Spivey MD Attending Clinician Aditi Mary DO Attending Clinician ADITI MARY Attending Clinician Unavailable FLASH HARDEN P.A. Attending Clinician Unavailable DAGMAR HARDIN M.D. Attending Clinician Unavailable Galina Jaramillo Attending Clinician FROYLAN LOPEZ Attending Clinician Unavailable Aditi Mary DO Admitting Clinician ADITI MARY Admitting Clinician Unavailable Galina Jaramillo Admitting Clinician FROYLAN LOPEZ Admitting Clinician Unavailable Payers Payer Name Policy Type Policy Number Effective Date Expiration Date S ource Problems Condition Condition Condition Status Onset Resolution Last Treating Co mments Source Name Details Category Date Date Treatment Clinician Date COVID-19 COVID-19 Disease Active Unive rs virus virus 2-07 [place] Atrial Atrial Disease Active [facility] fibrillati fibrillati 2-06 it y of on with on with 00:00: [place] RVR RVR 00 Medical Branch Anemia Anemia Disease Active Univers associated associated 2-06 it y of with with 00:00: [place] nutritiona nutritiona 00 Me dical l l Branch deficiency deficiency Elevated Elevated Disease Active Unive rs brain brain 2-06 ity of natriureti nat[place]ureti [place] c peptide c peptide 00 Medi mike (BNP) (BNP) Branch level level Complicate Complicate Disease Active U nivers d UTI d UTI 2-05 ity of (urinary (urinary 00:00: [place] tract tract 00 Medical infection) infection) Br anch Proteus Proteus Problem Active 2017-102019-04-16 Me moria (organism) (organism) 11-23 13:40:38 l Active 00:00: Leo 09/22/2018 00 Problem 04/16/2019 Urine (ESBL), 09/22/2018
Probl em added by Discern Expert. [facility] LT FEMUR LT FEMUR Diagnosis Active 2017-102018-12-25 Memoria FX,ATRIAL FX,ATRIAL 11-22 16:32:00 l FIB FIB 00:00: [place] W/RVR,S/P W/RVR,S/P 00 FALL FALL Active 09/21/2018 [facility] LEFT LEFT Diagnosis Active 2017-102018-09-22 Mem oria DISTAL DISTAL 11-22 01:56:00 l FEMUR FEMUR 00:00: [place] FX--S/P FX--S/P 00 FALL FALL Active 09/21/2018 [facility] Vitamin D Vitamin D Disease Active [facility] deficiency deficiency 4-03 Radha kes 00:00: Medical 00 Pender Leucocytos Leucocytos Disease Active [facility] Pender Hypercalce Hypercalce Disease Active [facility] kiki kiki 3-30 [facility] Medical 00 Pender Morbid Morbid Disease Active [facility] obesity obesity 3-30 [facility] 00:[facility]: Medical 00 Pender Hyponatrem Hyponatrem Disease Active [facility] ia ia 3- [facility] Atrial Atrial Disease Active [facility] fibrillati fibrillati 3- Radha kes on on 00:00: Medical 00 Center Congestive Congestive Disease Active [facility] heart heart 3- [facility] failure failure 00:00: Medical (CHF) (CHF) 00 Center Acute Acute Disease Active [facility] right MCA right MCA 3- [facility] s stroke stroke 00:00: Medical 00 Pender Total knee Total knee Disease Active U nivers replacemen replacemen 9- it y of t status t status 00:00: [place] 00 Medical Branch Gaby-prost Gaby-prost Problem Active [facility] femoral femoral ans shaft shaft fracture fracture Periprosth Periprost Problem 2019-04-16 Memoria etic hetic 13:40:38 l fracture fracture Sterling n around around internal 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, joint, initial initial encounter encounter 04/16/2019 [facility] Hemiplegia Hemiplegi Problem 2019-04-16 Memoria and a and 13:40:38 l hemiparesi hemiparesi He rmann s s following following cerebral cerebral infarction infarction affecting affecting left left non-domina non-domina nt side nt side 04/16/2019 [facility] Chronic Chronic Problem 2019-04-16 Me moria diastolic diastolic 13:40:38 l (congestiv (congestiv He rmann e) heart e) heart failure failure 04/16/2019 [facility] Body mass Body mass Problem 2019-04-16 Memoria index index 13:40:38 l (BMI) (BMI) Maxie 45.0-49.9, 45.0-49.9, adult adult 04/16/2019 [facility] Morbid Morbid Problem 2019-04-16 Kaushal munira (severe) (severe) 13:40:38 l obesity obesity 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 04/16/2019 [facility] Acute Acute Problem 2019-04-16 Memor ia posthemorr posthemorr 13:40:38 l hagic haglashonda Bailey anemia anemia 04/16/2019 [facility] Urinary Urinary Problem 2019-04-16 Me moria tract tract 13:40:38 l infection, infection, He rmann site not site not specified specified 04/16/2019 [facility] Fall on Fall on Problem 2019-04-16 Me morimohamud same level same level 13:40:38 l from from Maxie slipping, slipping, tripping tripping and and stumbling stumbling without without subsequent subsequent striking striking against against object, object, initial initial encounter encounter 04/16/2019 [facility] Chronic Chronic Problem 2019-04-16 Me kei atrial atrial 13:40:38 l fibrillati fibrillati He rmann on on 04/16/2019 [facility] Dependence Dependenc Problem 2019-04-16 Memoria on e on 13:40:38 l wheelchair wheelchair He rmann 9 [facility] Chronic Chronic Problem 2019-04-16 Ok kei obstructiv obstructiv 13:40:38 l e e Maxie pulmonary pulmonary disease, disease, unspecifie unspecifie d d 04/16/2019 [facility] Hypertensi Hypertens Problem 2019-04-16 Memoria ve heart rola heart 13:40:38 l disease disease Leo with heart with heart failure failure 04/16/2019 [facility] Obstructiv Problem 2019-04-16 M emoria e sleep Obstructiv 13:40:38 l apnea e sleep Leo (adult) apnea (pediatric (adult) ) (pediatric ) 04/16/2019 [facility] Hyperlipid Hyperlipi Problem 2019-04-16 Memoria logan sarkar, 13:40:38 l unspecifie unspecifie He rmann d d 04/16/2019 [facility] Anxiety Anxiety Problem 2019-04-16 Ok kei disorder, disorder, 13:40:38 l unspecifie unspecifie He rmann d d 04/16/2019 [facility] Gastro-eso Gastro-es Problem 2019-04-16 Memoria phageal ophageal 13:40:38 l reflux reflux Maxie disease disease without without esophagiti esophagiti s s 04/16/2019 [facility] Vitamin Vitamin Problem 2019-04-16 M emoria B12 B12 13:40:38 l deficiency deficiency He rmann anemia, anemia, unspecifie unspecifie d d 04/16/2019 [facility] Hyperkalem Hyperkale Problem 2019-04-16 Memoria ia kiki 13:40:38 l 04/16/2019 Sterling montes [facility] Thrombocyt Thrombocy Problem 2019-04-16 Memoria emmanuel leesenia, 13:40:38 l unspecifie unspecifie He rmann d d 04/16/2019 [facility] Proteus Proteus Problem 2019-04-16 Me moria (mirabilis (mirabilis 13:40:38 l ) ) Leo (morganii) (morganii) as the as the cause of cause of diseases diseases classified classified elsewhere elsewhere 04/16/2019 [facility] Personal Personal Problem 2019-04-16 Memoria history of history of 13:40:38 l nicotine nicotine Sterling montes dependence dependence 04/16/2019 [facility] Dehydratio Dehydrati Problem 2019-04-16 Memoria n on 13:40:38 l 04/16/2019 Sterling montes [facility] Age-relate Age-relat Problem 2019-04-16 Memoria d ed 13:40:38 l osteoporos osteoporos He rmann is without is without current current pathologic pathologic al al fracture fracture 04/16/2019 [facility] Hypotensio Hypotensi Problem 2019-04-16 Memfaith n, on, 13:40:38 l unspecifie unspecifie He rmann d d 04/16/2019 [facility] Essential Essential Problem Resolve 2019-04-16 Memoria hypertensi hypertensi d 13:40:38 l on on Leo (disorder) (disorder) Resolved Problem 04/16/2019 [facility] Syncope Syncope Problem Resolve 2019-04-16 M emoria and and d 13:40:38 l collapse collapse Sterling montes (disorder) (disorder) Resolved Problem 04/16/2019 [facility] Anxiety Anxiety Problem Active 2019-04-16 Me moria disorder disorder 13:40:38 l (disorder) (disorder) He rmann Active Problem 04/16/2019 [facility] Chronic Chronic Problem Active 2019-04-16 Me moria atrial atrial 13:40:38 l fibrillati fibrillati He rmann on on (disorder) (disorder) Active Problem 04/16/2019 [facility] Chronic Chronic Problem Active 2019-04-16 Me moria diastolic diastolic 13:40:38 l heart heart Leo failure failure (disorder) (disorder) Active Problem 04/16/2019 [facility] Chronic Chronic Problem Active 2019-04-16 morimohamud obstructiv obstructiv 13:40:38 l e lung e lung Maxie disease disease (disorder) (disorder) Active Problem 04/16/2019 [facility] Extreme Extreme Problem Active 2019-04-16 Ok morimohamud obesity obesity 13:40:38 l with with 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 (disorder) (disorder) Active Problem 04/16/2019 [facility] Gastroesop Gastroeso Problem Active 2019-04-16 Memoria hageal phageal 13:40:38 l reflux reflux Maxie disease disease (disorder) (disorder) Active Problem 04/16/2019 [facility] History of History Problem Active 2019-04-16 Memoria - CVA of - CVA 13:40:38 l (context-d (context-d He rmann ependent ependent category) category) Active Problem 04/16/2019 [facility] Hyperlipid Hyperlipi Problem Active 2019-04-16 Memoria emia demia 13:40:38 l (disorder) (disorder) He rmann Active Problem 04/16/2019 [facility] Hypertensi Hypertens Problem Active 2019-04-16 Memoria ve rola 13:40:38 l disorder, disorder, Herm valentin systemic systemic arterial arterial (disorder) (disorder) Active Problem 04/16/2019 [facility] Obstructiv Obstructi Problem Active 2019-04-16 Memoria e sleep ve sleep 13:40:38 l apnea apnea Leo syndrome syndrome (disorder) (disorder) Active Problem 04/16/2019 [facility] PERIPROSTH PERIPROST Diagnosis Active 2018-12-25 Memoria FRACTURE H FRACTURE 16:32:00 l AROUND AROUND Maxie OTHER OTHER INTERNA INTERNA Active [facility] UNSPECIFIE UNSPECIFI Diagnosis Active 2018-12-25 Memoria D ATRIAL ED ATRIAL 16:32:00 l FIBRILLATI FIBRILLATI He rmann ON ON Active [facility] History of Past Illness Condition Condition Condition Status Onset Resolution Last Treating Co mments Source Name Details Category Date Date Treatment Clinician Date Unspecifie Unspecifi Problem 2019-0 2019-04-16 2019-04-16 Memoria d fracture ed 1-08 13:40:38 13:40:38 l of shaft fracture 04:15: Sterling n of left of shaft 49 femur, of left initial femur, encounter initial for closed encounter fracture for closed fracture 10/09/2018 9 MH [facility] Allergies, Adverse Reactions, Alerts Allergy Allergy Status Severity Reaction(s) Onset Inactive Treating Comm ents Source Name Type Date Date Clinician Pregabal Propensi [facility] adverse 00:00: Medical reaction 00 Pender s Haloperi Propensi Active Anxiety [facility] 3-27 [facility] Lactate adverse 00:00: Medical reaction 00 Pender s Iodine Propensi Active Itching, IV IODINE [facility] ty to Swelling 3-27 ONLY [facility] adverse 00:00: Medical reaction 00 Pender s Aspirin Propensi Active [facility] (Tartraz ty to 3-26 [facility] ine adverse 00:00: Medical Only) reaction 00 Pender s Haloperi Drug Active Anxiety [facility] dol Allergy 3-26 [facility] 00:00: Medical 00 Pender Iodine Propensi Active Hives, Rash [facility] And ty to 3-26 [facility] Iodide adverse 00:00: Medical Containi reaction 00 Pender ng s Products Latex Propensi Active Hives, [address] [facility] [facility] ty to Itching, 3-26 [facility] adverse Rash 00:00: Medical reaction 00 Pender s Morphine Propensi Active Hives, High [facility] ty to Anxiety, 3-26 blood [facility] adverse Other (See 00:00: pressure Med ical reaction Comments) 00 Cente r s Penicill Drug Active Hives, Rash, [facility] ins Allergy Swelling 3-26 [facility] 00:00: Medical 00 Pender Pregabal Propensi Active Hallucinatio 2015-10 Univers in [...] ONLY ity of adverse 00:00: [place] reaction 00 Medical s to Branch drug Latex Propensi Active Rash 0 Univers ty to 9-10 ity of adverse 00:00: [place] reaction 00 Medical s to Branch drug Morphine Propensi Active Other - See 0 High U nivers ty to comments 9-10 blood ity of adverse 00:00: pressure [place] reaction 00 Medical s to Branch drug Penicill Propensi Active Swelling 0 Univ ers ins ty to 9-10 ity of adverse 00:00: [place] reaction 00 Medical s to Branch drug Penicill Propensi Active Swelling 0 Univ ers ins ty to 9-10 ity of adverse 00:00: [place] reaction 00 Medical s to Branch drug HALOPERI DRUG Active Med Anxiety 0 Univers DOL INGREDI 9-10 ity of LACTATE 00:00: [place] 00 Medical Branch IODINE DRUG Active Med ITCHING 2014-0 Univers INGREDI 9-10 ity of 00:00: [place] 00 Medical Branch LATEX DRUG Active Med ITCHING 0 Univers INGREDI 9-10 ity of 00:00: [place] 00 Medical Branch MORPHINE DRUG Active Med Anxiety 2014-0 Univers INGREDI 9-10 ity of 00:00: [place] 00 Medical Branch PENICILL Drug Active Med Rash 0 Univers INS Class 9-10 ity of 00:00: [place] 00 Medical Branch penicill penicill Active Memori a ins ins l Maxie morphine morphine Active Memori a l Leo Haldol Haldol Active Memoria l [place]ie iodine iodine Active Memoria l [place] Latex Latex Active Memoria l [place] Social History Social Habit Start Date Stop Date Quantity Comments Source Exposure to Not sure [place] of SARS-CoV-2 [facility] (event) [place] Alcohol intake 2016-12-30 2016-12-[address] [facility] [place] [facility] 00:00:00 00:00:00 non-drinker of Medical Ce nter alcohol (finding) Tobacco use and 2015-06-11 2015-06-11 Smokeless tobacco Un iversity of exposure 00:00:00 00:00:00 non-user [facility] Social History 2013-10-18 2013-10-18 [facility] lorenzo 13:16:47 13:16:47 [birth year] MONICA Puente kes 00:00:00 00:00:00 [facility] Smoking Status Start Date Stop Date Source Never smoker [facility] Medications Ordered Filled Start Stop Current Ordering Indication Dosage Frequency Signature Comments Components Source Medication Medication Date Date Medication? Clinician (SIG) Name Name MONSTER 2021-0 2022- No 40meq 40 mEq, Univers (KLOR-CON 2-10 02-10 Oral, ity of M20) tablet 15:30: 16:11 ONCE, 1 [place] 40 mEq 00 :00 dose, On Medical Sus[place] Branch 11/11/21 at 0930, Routine lidocaine 2021-0 Yes 1{patch 1 Patch, U nivers (LIDODERM) 2-10 } Topical, ity o f 5 % (700 15:00: Administer Scar as mg/patch) 00 over 12 Medical patch 1 Hours, Branch Patch DAILY, First dose on Susana 11/11/21 at 0900, Until Discontinu ed, Routine [...] as needed for Anxiety or Agitation. LORazepam 2-0 Yes .5mg Take 0.5 Univ ers (ATIVAN) 2-10 mg by ity of 0.5 mg 14:37: mouth 2 [place] tablet 18 (two) Medical times Branch daily as needed for Anxiety or Agitation. apixaban 5 2021-0 Yes 5mg Take 1 Unive rs mg tablet 2-10 tablet by ity o f 00:00: mouth 2 [place] 00 (two) Medical times Branch daily. aspirin 81 2-0 Yes 81mg Take 1 Unive rs mg chewable 2-10 tablet by ity of tablet 00:00: mouth [place] 00 daily. Medical Branch atorvastati 2021-0 Yes [...] mouth [place] 00 daily. Medical Branch buPROPion 2021-0 Yes [...] mouth [place] 00 daily. Medical Branch sennosides 0 Yes 8.6mg Take 1 Univ ers 8.6 mg 2-10 tablet by ity of tablet 00:00: mouth 2 [place] 00 (two) Medical times Branch daily. ferrous 2021-0 Yes [id number] 325mg Take 1 Uni vers sulfate 2-10 tablet by ity of (IRON) 325 00:00: mouth [place] mg (65 mg 00 daily. Medical iron) Branch tablet apixaban 5 2021-0 Yes 5mg Take 1 Unive rs mg tablet 2-10 tablet by ity o f 00:00: mouth 2 00 (two) Medical times Branch daily. aspirin 81 2021-0 Yes 81mg Take 1 Unive rs mg chewable 2-10 tablet by ity of tablet 00:00: mouth [place] 00 daily. Medical Branch atorvastati 2021-0 Yes 40mg Take 1 Univ ers n 40 mg 2-10 tablet by ity of tablet 00:00: mouth at [place] 00 bedtime. Medical Branch docusate 0 Yes [...] by ity o f 00:00: mouth at [place] 00 bedtime. Medical Branch metoprolol 0 Yes 50mg Take 1 Unive rs succinate 2-10 tablet by ity o f XL 50 mg 24 00:00: mouth 2 Scar as hr tablet 00 (two) Medical times Branch daily. montelukast 2021-0 Yes 10mg Take 1 Univ ers 10 mg 2-10 tablet by ity of tablet 00:00: mouth [place] 00 every Medical evening. Branch nystatin 0 Yes Apply to Unive rs 100,000 2-10 area(s) 2 ity of unit/gram 00:00: (two) [place] powder 00 times Medical daily. Branch omeprazole 2021-0 Yes 20mg Take 1 Unive rs 20 mg 2-10 capsule by ity of capsule 00:00: mouth daily. Medical Branch sennosides 2021-0 Yes 8.6mg Take 1 Univ ers 8.6 mg 2-10 tablet by ity of tablet 00:00: mouth 2 (two) Medical times Branch daily. ferrous 2021-0 Yes [id number] 325mg Take 1 Uni vers sulfate 2-10 tablet by ity of (IRON) 325 00:00: mouth [place] mg (65 mg 00 daily. Medical iron) Branch tablet apixaban 5 2021-0 Yes 5mg Take 1 Unive rs mg tablet 2-10 tablet by ity o f 00:00: mouth 2 (two) Medical times Branch daily. aspirin 81 2021-0 Yes 81mg Take 1 Unive rs mg chewable 2-10 tablet by ity of tablet 00:00: mouth 00 daily. Medical Branch atorvastati 0 Yes 40mg Take 1 Univ ers n 40 mg 2-10 tablet by ity of tablet 00:00: mouth at bedtime. Medical Branch docusate 2021-0 Yes 100mg Take 1 Univer s 100 mg 2-10 capsule by ity of capsule 00:00: mouth (two) Medical times Branch daily. DULoxetine 2021-0 Yes 60mg Take 1 Unive rs 60 mg 2-10 capsule by ity of capsule 00:00: mouth daily. Medical Branch buPROPion 2021-0 Yes 75mg Take 1 Univer s 75 mg 2-10 tablet by ity of tablet 00:00: mouth daily. Medical Branch gabapentin 2021-0 Yes 100mg Take 1 Univ ers 100 mg 2-10 capsule by ity of capsule 00:00: mouth 3 (three) Medical times Branch daily. hydrocortis 2021-0 Yes Apply to Un monalisa one 2.5 % 2-10 affected ity of cream 00:00: area(s) 2 (two) Medical times Branch daily. melatonin 3 2021-0 Yes 3mg Take 1 Univ ers mg tablet 2-10 tablet by ity o f 00:00: mouth at bedtime. Medical Branch metoprolol 2021-0 Yes 50mg Take 1 Unive rs succinate 2-10 tablet by ity o f XL 50 mg 24 00:00: mouth 2 Scar as hr tablet 00 (two) Medical times Branch daily. montelukast 2021-0 Yes 10mg Take 1 Univ ers 10 mg 2-10 tablet by ity of tablet 00:00: mouth [place] 00 every Medical evening. Branch nystatin 0 Yes Apply to Unive rs 100,000 2-10 area(s) 2 ity of unit/gram 00:00: (two) [place] powder 00 times Medical daily. Branch omeprazole 2021-0 Yes 20mg Take 1 Unive rs 20 mg 2-10 capsule by ity of capsule 00:00: mouth [place] 00 daily. Medical Branch sennosides 0 Yes 8.6mg Take 1 Univ ers 8.6 mg 2-10 tablet by ity of tablet 00:00: mouth 2 [place] 00 (two) Medical times Branch daily. ferrous 2021-0 Yes [id number] 325mg Take 1 Uni vers sulfate 2-10 tablet by ity of (IRON) 325 00:00: mouth [place] mg (65 mg 00 daily. Medical iron) Branch tablet apixaban 5 2021-0 Yes 5mg Take 1 Unive rs mg tablet 2-10 tablet by ity o f 00:00: mouth 2 [place] 00 (two) Medical times Branch daily. aspirin 81 2021-0 Yes 81mg Take 1 Unive rs mg chewable 2-10 tablet by ity of tablet 00:00: mouth [place] 00 daily. Medical Branch atorvastati 2021-0 Yes 40mg Take 1 Univ ers n 40 mg 2-10 tablet by ity of tablet 00:00: mouth at [place] 00 bedtime. Medical Branch docusate 2021-0 Yes 100mg Take 1 Univer s 100 mg 2-10 capsule by ity of capsule 00:00: mouth 2 [place] 00 (two) Medical times Branch daily. DULoxetine 2021-0 Yes 60mg Take 1 Unive rs 60 mg 2-10 capsule by ity of capsule 00:00: mouth [place] 00 daily. Medical Branch buPROPion 2021-0 Yes 75mg Take 1 Univer s 75 mg 2-10 tablet by ity of tablet 00:00: mouth [place] 00 daily. Medical Branch gabapentin 2021-0 Yes 100mg Take 1 Univ ers 100 mg 2-10 capsule by ity of capsule 00:00: mouth 3 [place] 00 (three) Medical times Branch daily. hydrocortis Yes Apply to Un monalisa one 2.5 % 2-10 affected ity of cream 00:00: area(s) 2 [place] 00 (two) Medical times Branch daily. melatonin 3 Yes 3mg Take 1 Univ ers mg [...] 00 (two) Medical times Branch daily. ferrous Yes [id number] 325mg Take 1 Uni vers sulfate 2-10 tablet by ity of (IRON) 325 00:00: mouth [place] mg (65 mg 00 daily. Medical iron) Branch tablet furosemide 2021- No [id number] 20mg Take 1 Univers 20 mg 2-10 03-13 tablet by ity of tablet 00:00: 05:59 mouth [place] 00 :00 daily for Medical 30 days. Branch furosemide 2021- No [id number] 20mg Take 1 Univers 20 mg 2-10 03-13 tablet by ity of tablet 00:00: 05:59 mouth [place] 00 :00 daily for Medical 30 days. Branch furosemide 0 2021- No [id number] 20mg Take 1 Univers 20 mg 2-10 03-13 tablet by ity of tablet 00:00: 05:59 mouth [place] 00 :00 daily for Medical 30 days. Branch albuterol 2021- No [id number] 2{puff} Inhale 2 Univers 90 2-10 02-26 Puffs ity of mcg/actuati 00:00: 05:59 every 6 [place] on inhaler 00 :00 (six) Medical hours as Branch needed for Wheezing or Shortness of Breath for up to 15 days. albuterol 2021- No [id number] 2{puff} Inhale 2 Univers 90 2-10 02-26 Puffs ity of mcg/actuati 00:00: 05:59 every 6 [place] on inhaler 00 :00 (six) Medical hours as Branch needed for Wheezing or Shortness of Breath for up to 15 days. albuterol 2021- No [id number] 2{puff} Inhale 2 Univers 90 2-10 02-26 Puffs ity of mcg/actuati 00:00: 05:59 every 6 [place] on inhaler 00 :00 (six) Medical hours as Branch needed for Wheezing or Shortness of Breath for up to 15 days. magnesium 2021- No [id number] 400mg Take 400 Univers oxide 420 2-10 02-16 mg by ity of mg Tab 00:00: 05:59 mouth [place] 00 :00 daily for Medical 5 days. Branch magnesium 2021- No [id number] 400mg Take 400 Univers oxide 420 2-10 02-16 mg by ity of mg Tab 00:00: 05:59 mouth [place] 00 :00 daily for Medical 5 days. Branch nitrofurant 2021- No [id number] 100mg Take 1 Univers oin 100 mg 11-11- capsule by it y of capsule 00:00: 05:59 mouth 4 [place] 00 :00 (four) Medical times Branch daily for 2 days. nitrofurant 2021- No [id number] 100mg Take 1 Univers oin 100 mg 11-11- capsule by it y of capsule 00:00: 05:59 mouth 4 [place] 00 :00 (four) Medical times Branch daily for 2 days. LORazepam Yes .25mg 0.25 mg, Uni vers (ATIVAN) 2-09 Oral, ity of tablet 0.25 19:28: BIDPRN, Scar as mg 18 Starting Medical on Mon11/10/21 at 1328, Until Discontinu ed, Routine, Anxiety, Agitation omeprazole 2021-0 Yes 20mg 20 mg, Unive rs (PRILOSEC) 2- Oral, ity of capsule 20 15:00: DAILY, [place] mg 00 First dose Medical on Mon11/10/21 at 0900, Until Discontinu ed, Routine melatonin 2021-0 Yes 3mg 3 mg, Univers (MELATIN) 2 Oral, QHS, ity of tablet 3 mg 03:00: First dose [place] 00 on [facility] 11/09/21 at Branch 2100, Until Discontinu ed, Routine metoprolol 2021-0 Yes 50mg 50 mg, Unive rs succinate 11-10 Oral, BID, ity of XL (TOPROL 02:00: First dose [place] XL) tablet 00 on [facility] 50 mg 11/09/21 at Branch 2000, Until Discontinu ed, Routine hydrocortis 0 Yes Topical Uni vers one 2.5 % 11-10 (Apply To ity o f cream 02:00: Affected [place] 00 Areas), Medical BID, First Branch dose on 11/09/21 at 2000, Until Discontinu ed, Routine nystatin Yes Topical, Unive rs (NYSTOP) 11-10 BID, First ity o f powder 02:00: dose on [facility] 11/09/21 Medical at 2000, Branch Until Discontinu ed, Routine QUEtiapine 0 2021- No 50mg 50 mg, Univ ers (SEROQUEL) 11-10 02-09 Oral, BID, it y of tablet 50 02:00: 14:40 First dose [place] mg 00 :45 on [facility] 11/09/21 at Branch 2000, Until Discontinu ed, Routine montelukast 0 Yes 10mg 10 mg, Univ ers (SINGULAIR) 2-08 Oral, QPM, it y of tablet 10 23:00: First dose [place] mg 00 on [facility] 11/09/21 at Branch 1700, Until Discontinu ed, Routine nitrofurant 2021-0 2021- No 100mg 100 mg, U nivers oin 11-09 02-13 Oral, QID, ity of (MACRODANTI 21:45: 17:59 20 doses, [place] N) capsule 00 :00 First dose Med ical 100 mg on [facility] 11/09/21 at 1545, Last dose on 11/14/21 at 0800, Routine
Reason for Anti-Infec tive: Empiric Therapy for Suspected Infection< br>Empiric Therapy Site: Urine
D uration of therapy: 7 days magnesium 2022-0 Yes 400mg 400 mg, Univ ers oxide 2-08 Oral, BID, ity of (MAG-OX 21:15: [place] 400[place] tablet 00 on [facility] l 400 mg 11/09/21 at Branch 1515, Until Discontinu ed, Routine DULoxetine 2021-0 Yes 60mg 60 mg, Unive rs (CYMBALTA) 2-08 Oral, ity of capsule 60 21:15: DAILY, [place] mg 00 First dose Medical on [facility] 11/09/21 at 1515, Until Discontinu ed, Routine sennosides 2021-0 Yes 8.6mg 8.6 mg, Uni vers (SENOKOT) 2-08 Oral, BID, ity of tablet 8.6 21:15: First dose [place] mg 00 on [facility] 11/09/21 at Branch 1515, Until Discontinu ed, Routine docusate 2021-0 Yes 100mg 100 mg, Unive rs (COLACE) 2-08 Oral, BID, ity o f capsule 100 21:15: First dose [place] mg 00 on [facility] 11/09/21 at Branch 1515, Until Discontinu ed, Routine buPROPion 2021-0 Yes 75mg 75 mg, Univer s (WELLBUTRIN 2-08 Oral, ity of ) tablet 75 21:15: DAILY, [place] mg 00 First dose Medical on [facility] 11/09/21 at 1515, Until Discontinu ed, Routine gabapentin 2022-0 Yes 100mg 100 mg, Uni vers (NEURONTIN) 2-08 Oral, TID, it y of capsule 100 21:15: First dose [place] mg 00 on [facility] 11/09/21 at Branch 1515, Until Discontinu ed, Routine furosemide 2-0 Yes 20mg 20 mg, IV Un monalisa (LASIX) 2-08 Push, ity of injection 21:15: Q8HA2, [place] 20 mg 00 First dose Medical on [facility] 11/09/21 at 1515, Until Discontinu ed, MARIA ELENA LORazepam No .25mg 0.25 mg, Un monalisa (ATIVAN) 11-09 Oral, TID, ity of tablet 0.25 21:00: 14:40 First dose [place] mg 00 :39 on [facility] 11/09/21 at Branch 1500, Until Discontinu ed, Routine DULoxetine 2021- No 60mg Take 60 mg Univers (CYMBALTA) 11-09 by mouth 2 it y of 60 mg 15:08: 00:00 (two) [place] capsule 27 :00 times Medical daily. Branch montelukast No 10mg Take 10 mg Univers 10 mg 11-09 by mouth. ity of tablet 15:08: 00:00 [place] 27 :00 Medical Branch clotrimazol 2021- No Apply to U mehdi e 1 % 11-09 area(s) at ity of topical 15:08: 00:00 bedtime. [place] cream 27 :00 Medical Branch QUEtiapine No 50mg Take 50 mg Univers (SEROQUEL) 11-09 by mouth 2 it y of 50 mg 15:08: 00:00 (two) [place] tablet 27 :00 times Medical daily. Branch [...] 2021- No Take by Un monalisa -acetaminop 11-09 mouth ity of hen (NORCO) 15:08: 00:00 every 6 [place] 10-325 mg 27 :00 (six) Medical tablet hours as Branch needed. LORazepam 2021- No .5mg Take 0.5 Uni vers (ATIVAN) 11-09-08 mg by ity of 0.5 mg 15:08: 00:00 mouth. [place] tablet 27 :00 Medical Branch metoprolol 2021- No 25mg Take 25 mg Univers tartrate 25 11-0908 by mouth 2 i ty of mg tablet 15:08: 00:00 (two) [place] 27 :00 times Medical daily. Branch Acetaminoph 2021- No Take by Un monalisa en 500 mg 11-09- mouth. ity of Cap 15:08: 00:00 [place] 27 :00 Medical Branch albuterol 2021- No 2{puff} Inhale 2 Univers (VENTOLIN 11-09 Puffs ity of HFA) 90 15:08: 00:00 every 6 [place] mcg/actuati 27 :00 (six) Medical on inhaler hours as Branc h needed for Wheezing or Shortness of Breath. magnesium 2021- No Take by [facility] ers hydroxide 11-09- mouth. ity of (MILK OF 15:08: 00:00 [place] MAGNESIA 27 :00 Medical ORAL) Branch cranberry 2021- No Take by [facility] ers fruit 11-09 mouth. ity of (CRANBERRY) 15:08: 00:00 [place] 450 mg Tab 27 :00 Medical Branch buPROPion 2021- No 75mg Take 75 mg U nivers 75 mg 11-09- by mouth 3 ity of tablet 15:08: 00:00 (three) [place] 27 :00 times Medical daily. Branch docusate 2021- No 100mg Take 100 Uni vers 100 mg 11-09-08 mg by ity of capsule 15:08: 00:00 mouth [place] 27 :00 daily. Medical Branch bisacodyL 2021- No 10mg Insert 10 Un monalisa 10 mg 11-09-08 mg into ity of suppository 15:08: 00:00 rectum at [place] 27 :00 bedtime as Medical needed. Branch vitamin 2021- No 500ug Take 500 [facility] ers B-12 2-08 02-08 mcg by ity of (VITAMIN 15:08: 00:00 mouth [place] B-12) 500 27 :00 daily. Medical mcg tablet Branch atorvastati 2021- No 80mg Take 80 mg Univers n 80 mg 11-09 by mouth ity of tablet 15:08: 00:00 at [place] 27 :00 bedtime. Medical Branch Lactobacill 2021- No Take by Un monalisa us 11-09 mouth. ity of acidophilus 15:08: 00:00 [place] (ACIDOPHILU 27 :00 Medical S ORAL) Branch ondansetron 2021- No 4mg Take 4 mg Univers 4 mg tablet 11-09 by mouth ity of 15:08: 00:00 every 8 [place] 27 :00 (eight) Medical hours as Branch needed. clopidogreL 2021- No 75mg Take 75 mg Univers 75 mg 11-09 by mouth ity of tablet 15:08: 00:00 daily. [place] 27 :00 Medical Branch omeprazole 2021- No 20mg Take 20 mg Univers 20 mg 11-09 by mouth ity of capsule 15:08: 00:00 daily. [place] 27 :00 Medical Branch melatonin 3 2021- No 3mg Take 3 mg Univers mg tablet 11-09 by mouth ity o f 15:08: 00:00 at [place] 27 :00 bedtime. Medical Branch losartan 2021- No 50mg Take 50 mg Un monalisa (COZAAR) 50 11-09 by mouth ity of mg tablet 15:08: 00:00 daily. [place] 22 :00 Medical Branch carvedilol 2021- No 6.25mg Take 6.25 Univers (COREG) 11-09-05 mg by ity of 6.25 mg 15:08: 00:00 mouth 2 [place] tablet 22 :00 (two) Medical times Branch daily. oxazepam 2021- No 30mg Take 30 mg Un monalisa (SERAX) 30 11-09- by mouth 4 it y of mg capsule 15:08: 00:00 (four) [place] 22 :00 times Medical daily. Branch furosemide 2022-0 2022- No 80mg Take 80 mg Univers (LASIX) 80 11-09 by mouth ity of mg tablet 15:08: 00:00 daily. [place] 22 :00 [facility] diclofenac 75mg Take 75 mg Univers (VOLTAREN) 11-09 by mouth ity of 75 mg EC 15:08: 00:00 daily. [place] tablet :00 [facility] atorvastati Yes 40mg 40 mg, Univ ers n (LIPITOR) 208 Oral, QHS, it y of tablet 40 03:00: First dose [place] mg 00 on [facility] 11/08/21 at Branch 2100, Until Discontinu ed, Routine vancomycin No 15mg/kg 1,500 mg Univers 1500 mg in 11-08 (rounded ity of NS 500 mL 18:15: 21:32 from [place] IV 00 :52 2,131.5 mg Medical Piggyback = 15 mg/kg Bran ch RTU 1,500 ?142.1 mg kg), IV Piggyback, Q12H ABX, First dose on [facility] 11/08/21 at 1215, Until Discontinu ed, Administer over 90 Minutes
Reason for Anti-Infec tive: Documented Infection< br>Documen janine Infection Site: Urine
D uration of Therapy: 7 days potassium, 2021- No 2{packe 2 Packet, Univers sodium 11-08- t} Oral, ity of phosphates 15:15: 16:00 ONCE, 1 Scar as (PHOS-NAK) 00 :00 dose, On Medic al [phone] [facility] 11/08/21 Br anch mg packet 2 at 0915, Packet Routine apixaban Yes 5mg 5 mg, Univers (ELIQUIS) 11-08 Oral, BID, ity of tablet 5 mg 02:00: First dose [place] 00 on [facility] 11/07/21 at Branch 2000, Until Discontinu ed, Routine
Indicatio ns: Non-Valvul ar Atrial Fibrillati on phosphorus 2021- No 250mg 1 tablet U mehdi (K PHOS 11-07-09 (250 mg), ity of NEUTRAL) 20:00: 19:27 Oral, TID, [place] tablet 1 00 :31 First dose Medic al tablet on Sun Branch 11/07/21 at 1400, Until Discontinu ed, Routine magnesium 2g 2 g, IV Univ ers sulfate in 11-07 Piggyback, it y of water 2 19:30: 18:41 ONCE NOW, [place] gram/50 mL 00 :00 1 dose, On Med ical (4 %) 11/07/21 Branch infusion 2 at 1330, g Routine iron No 300mg 300 mg, IV Unive rs sucrose 11-07 0209 Infusion, ity of (VENOFER) 18:45: 19:33 DAILY, [...] Until Discontinu ed, Routine sulfur 2021- No [id number] 5mL 5 mL, Unive rs hexafluorid 11-0706 Intravenou i ty of e microsphr 15:30: 15:30 s, ONCE, 1 [place] (LUMASON) 00 :00 dose, On Medica l injection 5 11/07/21 Br anch mL at 0930, Routine
meteorology faculty member approving Restricted medication : KRYSTYNA JAEGER aspirin Yes 81mg 81 mg, Univers [...] dose, On Branch 11/06/21 at 2130, Routine
meteorology faculty member approving Restricted medication : KRYSTYNA JAEGER diltiazem 2021- No 2.5mg/h 2.5-15 Un monalisa (CARDIZEM 11-07 02-08 mg/hr ity of IV) 125 mg 03:19: 21:02 (2.5-15 Scar as in D5W 28 :31 mL/hr), IV Medical infusion Infusion, [place] TITRATE, HR < 110, Starting on 11/06/21 [...] ity of 1,000 mg in 02:00: 18:04 [place], [place] NaCl 0.9% 00 :04 Q24H ABX, Medic al (NS) 50 mL First dose [facility] MINI-BAG on 11/06/21 at 2000, Until Discontinu ed, Administer over 30 Minutes, 50 mL
Reas on for Anti-Infec tive: Empiric Therapy for Suspected Infection< br>Empiric Therapy Site: Urine
D uration of therapy: 72 hours acetaminoph Yes 650mg 650 mg, Un monalisa en 2-06 Oral, ity of (TYLENOL) 00:47: Q6HPRN, [place] tablet 650 46 Starting Medic al mg on Sat Branch 11/06/21 at 1847, Until Discontinu ed, Routine, Pain (scale 1-3) NaCl 0.9% 0 2021- No 500mL at 999 Univ ers (NS) bolus 2-05 02-05 mL/hr, 500 it y of infusion 22:00: 22:40 mL, IV [place] 500 mL 00 :00 Infusion, Medical ONCE, 1 Branch dose, On 11/06/21 at 1600, STAT gabapentin 2017-10 Yes 100 mg = 1 M emoria 100 MG Oral 2-27 cap, PO, l Capsule 21:23: Q8Hnow, 0 Mervat nn 00 Refill(s) ertapenem 1 2017-10 No 1 gm, IV, M emoria g injection 2-27 Q24H, X 6 l 21:23: day, # 6 [place] 00 syr, 0 Refill(s), other enoxaparin 2017-10 No 50 mg = Kaushal munira 60 mg/0.6 2-27 0.5 mL, l mL 21:23: SUB-Q, [place] subcutaneou 00 [id number], s solution X 21 day, # 11 mL, 0 Refill(s), other tizanidine 2017-10 Yes 2 mg = 1 Mem oria 2 mg oral 2-27 tab, PO, l tablet 21:23: Q6H, PRN Maxie 00 Muscle Spasms, 0 Refill(s) tiotropium 2017-10 Yes 18 Memoria 2-27 microgram, l 21:23: INHALATION [place] 00 , RDaily, 0 Refill(s) sennosides, 2017-10 Yes 17.2 mg = M emoria LONG-TERM 8.6 MG 2-27 2 tab, PO, l Oral Tablet 21:23: Bedtime, 0 Maxie 00 Refill(s) pantoprazol 2017-10 Yes 40 mg = 1 M emoria e 40 mg 2-27 tab, PO, l oral 21:23: Before Leo enteric 00 Breakfast, coated 0 tablet Refill(s) Docusate 2017-10 Yes 100 mg = 1 Mem oria Sodium 100 2-27 cap, PO, l MG Oral 21:23: BID, 0 [place] Capsule 00 Refill(s) Aspirin 325 2017-10 Yes 325 mg = 1 Memoria MG Enteric 2-27 tab, PO, l Coated 21:23: Daily, 0 [place] Tablet 00 Refill(s) Albuterol 2017-10 Yes 3 mL, NEB, Me moria 0.833 MG/ML 11-28 PRN, PRN l / 21:23: Respirator [place] Ipratropium 00 y [address], [place] 0 0.167 MG/ML Refill(s) Inhalant Solution [DuoNeb] Acetaminoph 2017-10 Yes 1,000 mg = Memoria en 500 MG -27 2 tab, PO, l Oral Tablet 21:23: Q6Hnow, 0 H ermann 00 Refill(s) Oxycodone 2017-10 No 5 mg = 1 Kaushal munira Hydrochlori -27 tab, PO, l de 5 MG 21:23: Q6H, PRN [place] n Oral Tablet 00 Pain Score 7-10, # 25 tab, 0 Refill(s), other POLYETHYLEN 2017-10 Yes 17 gm = 1 M emoria E GLYCOL - pkt, PO, l 3350 21:23: Daily, 0 [place] 00 Refill(s) multivitami 2017-10 Yes 1 tab, PO, Memoria n -27 Daily, 0 l 21:23: Refill(s) [place] 00 metoprolol 2017-10 Yes 12.5 mg = Me moria tartrate 25 - 0.5 tab, l mg oral 21:23: PO, BID, 0 Herm valentin tablet 00 Refill(s) melatonin 3 2017-10 Yes 3 mg = 1 Me moria mg oral -27 tab, PO, l tablet 21:23: Bedtime, [place] 00 PRN Insomnia, 0 Refill(s) Lidocaine 2017-10 Yes 1 patch, Kaushal munira Hydrochlori 11-28 TOP, l de 0.05 21:23: Daily, Maxie MG/MG 00 Remove Transdermal after 12 Patch hours, 0 [Lidoderm] Refill(s) Lovenox 2017-10 No Notes: Memoria 11-28 Nurse to l 16:00: ensure Maxie 00 documentat ion of patient education per anticoagul ation policy. (Same as: Lovenox) heparin 2017-10 No Notes: Memoria 11-28 porcine l 06:00: heparin Leo 00 remove 2017-10 No Notes: Memoria patch - Remove l 03:00: patch 12 Maxie 00 hours after applicatio n each day. Eliquis 2017-10 No 5 mg, Memoria 2- Route: PO, l 03:00: Drug form: [place]ie 00 TAB, Q12H, Dosing Weight 136, kg, Start date: 09/26/18 21:00:00 CAREERS ADVISER, Duration: 30 day, Stop date: 10/26/18 9:00:00 CAREERS ADVISER Aspirin 2017-10 No Notes: (Do Kaushal munira 2- Not Crush) l 21:00: Do not [place] 00 crush or chew. ertapenem 2017-10 No Notes: Memori a - (Same as: l 16:00: INVanz) [place] 00 Refrigerat e. NOT COMPATIBLE WITH D5W. Stable in refrigerat or for 24 hours MEDICATION WASTE Product Size: 1000 mg Product Wasted: ___ mg Lidocaine 2017-10 No Notes: Memori a Hydrochlori - Apply only l de 0.05 15:00: once for [place] n MG/MG 00 up to 12 Transdermal hours in a Patch 24-hour [Lidoderm] period (12 hours on and 12 hours off). (Same as: Lidoderm) "Remove old patch before applicatio n of new patch" multivitami 2017-10 No Notes: Kaushal munira n 2- (Same l 15:00: as:Thera) WASTE: F/P - Black; E - Municipal Trash Bin Take with food. Dulcolax 2017-10 No Notes: Memoria Laxative - (Same As: l 14:58: Dulcolax, Leo 00 [place]isco-Lax) heparin 2017-10 No Notes: Memoria 2-25 porcine l 22:00: heparin Maxie 00 Plavix 2017-10 No Notes: Memoria 2-25 (Same As: l 19:44: Plavix) Maxie 00 Magic 2017-10 No Notes: Memoria Mouthwash 2-25 Magic l (Benadryl/L 15:21: mouth wash Leo idocaine/Ma 00 contains:B alox/) enadryl/Li 1:1:1 docaine/Ma alox/) 1:1:1; total volume 5 ml Vancomycin 2017-10 No 2000 mg: Me moria 2-25 infuse l 07:00: over 2.5 hours For adult patients only: Round to nearest 250 mg per Medical Staff approval MEDICATION WASTE Product Size: 1000 mg Product Wasted: ___ mg Cefazolin 2017-10 No 3,000 mg, Mem oria 2-25 150 mL, l 02:00: Route: IVPB, Drug form: INJ, ABXQ8H, Dosing Weight 136, kg, Start date: 09/24/18 20:00:00 CAREERS ADVISER, Duration: 3 doses or times, Stop date: 09/25/18 12:00:00 CAREERS ADVISER, ABX Indication : Surgical Prophylaxi s Lovenox 2017-10 No Notes: Memoria 2-25 (Same as: l 00:30: Lovenox) tramadol 2017-10 No Notes: Not Mem oria hydrochlori 2-25 to exceed l de 50 MG 00:00: 400mg/day. Her hernandez Oral Tablet (Same As: Ultram) metoprolol 2017-10 No Notes: Memor ia tartrate 2-24 (Same as: l 23:19: Lopressor) 12.5 mg=1/2 X 25 mg TAB Neurontin 2017-10 No Notes: Memori a 2-24 (Same as: l 23:00: Neurontin) CeleBREX 2017-10 No Notes: Memoria 2-24 NSAID. l 23:00: Please check indication . Not for seizure. (Same As: CeleBREX) Metoprolol 2017-10 No 2 mg, Memori a 2-24 Route: IV, l 22:46: ONCE, Dosing Weight 136, kg, Priority: STAT, Start date: 09/24/18 16:46:00 CAREERS ADVISER, Stop date: 09/24/18 16:46:00 CAREERS ADVISER Oxycodone 2017-10 No Notes: Memori a Hydrochlori 2-24 (Same as: l de 5 MG 21:47: Roxicodone Herm valentin Oral Tablet ) Promethazin 2017-10 No Notes: Do M emoria e 2-24 not give l 20:42: IV push. (Same as: Phenergan) Hydromorpho 2017-10 No Notes: Kaushal munira ne 2-24 Same as l 20:42: Dilaudid Flumazenil 2017-10 No Notes: Memor ia 2-24 (Same as: l 20:42: Romazicon) Naloxone 2017-10 No Notes: Memoria 2-24 Same as l 20:42: Narcan Diphenhydra 2017-10 No Notes: Kaushal munira mine 2-24 (Same as: l 20:42: Benadryl) Hydralazine 2017-10 No Notes: Kaushal munira 2-24 (Same as: l 20:42: Apresoline ) Push over 5 minutes ondansetron 2017-10 No Route: IV, Memoria (ANES) 2- Drug form: l 20:29: INJ, ONCE, Stop date: 09/24/18 14:29:00 CAREERS ADVISER sugammadex 2017-10 No Route: IV, M emoria (ANES) 2- Drug form: l 20:29: SOLN, ONCE, Stop date: 09/24/18 14:29:00 CAREERS ADVISER sugammadex 2017-10 No Notes: Memor ia 2-24 (Same as: l 19:54: [place]) dexamethaso 2017-10 No Route: IV, Memoria ne (ANES) 2- Drug form: l 19:53: INJ, ONCE, Stop date: 09/24/18 13:53:00 CAREERS ADVISER acetaminoph 2017-10 No Route: IV, Memoria en (ANES) 2-24 Drug form: l 10 mg 19:12: INJ, Start [place] n 00 date: 09/24/18 13:12:00 CAREERS ADVISER, Stop date: 09/24/18 14:12:00 CAREERS ADVISER fentaNYL 2017-10 No Route: IV, Mem oria (ANES) 2-24 Drug form: l 19:04: INJ, ONCE, Maxie 00 Stop date: 09/24/18 13:04:00 CAREERS ADVISER rocuronium 2017-10 No Route: IV, M emoria (ANES) 2-24 Drug form: l 19:04: INJ, ONCE, Stop date: 09/24/18 13:04:00 CAREERS ADVISER propofol 2017-10 No Route: IV, Mem oria (ANES) 2-24 Drug form: l 19:04: INJ, ONCE, Stop date: 09/24/18 13:04:00 CAREERS ADVISER lidocaine 2017-10 No Route: IV, Me moria (ANES) 2-24 Drug form: l 19:04: INJ, ONCE, Stop date: 09/24/18 13:04:00 CAREERS ADVISER ceFAZolin 2017-10 No Route: IV, Me moria (ANES) 2-24 Drug form: l 18:48: INJ, ONCE, Stop date: 09/24/18 12:48:00 CAREERS ADVISER vancomycin 2017-10 No Route: IV, M emoria (ANES) 1000 11-25 Drug form: l mg 18:23: INJ, Start date: 09/24/18 12:23:00 CAREERS ADVISER, Stop date: 09/24/18 13:23:00 CAREERS ADVISER phenylephri 2017-10 No Route: IV, Memoria ne (ANES) 2 Drug form: l 100 17:52: INJ, Start microgram date: 09/24/18 11:52:00 CAREERS ADVISER, Stop date: 09/24/18 12:52:00 CAREERS ADVISER Lactated 2017-10 No Route: IV, Mem oria Ringers 2-24 Total l Injection 17:40: Volume: Mervat nn IV (ANES) 00 1,000, 1000 mL Start date: 09/24/18 11:40:00 CAREERS ADVISER, Stop date: 09/24/18 12:40:00 CAREERS ADVISER normal 2017-10 No 1,000 mL, Memori a saline 0.9% 2-24 Rate: 75 l IV 1,000 mL 17:09: ml/hr, Infuse over: 13.3 hr, Route: IV, Dosing Weight 136 kg, Total Volume: 1,000, Start date: 09/24/18 11:09:00 CAREERS ADVISER, Duration: 30 day, Stop date: 10/24/18 11:08:00 CAREERS ADVISER, 2.56, m2 NS (Bolus) 2017-10 No 500 mL, Kaushal munira IV 2-24 500 ml/hr, l 11:42: Infuse Maxie 00 Over: 1 hr, Route: IV, 500, Drug form: INJ, ONCE, Priority: STAT, Dosing Weight 136 kg, Start date: 09/24/18 5:42:00 CAREERS ADVISER, Stop date: 09/24/18 5:42:00 CAREERS ADVISER AMIODarone 2017-10 No 2 mg/ml. Me moria 900 mg in 2-23 Use Glass l D5W 500 ml 17:45: Bottle or He rmann IV 900 mg + 00 Non PVC Dextrose 5% Bag "Use in Water IV 0.22 482 mL micron in-line filter" MEDICATION WASTE Product Size: 900 mg Product Wasted: ___ mg Amiodarone 2017-10 No 2 mg/ml. Me moria 2-23 "Recommend l 17:44: ation: Use Maxie 00 an in-line filter during administra tion for continuous infusions to reduce the incidence of phlebitis" (Same as Codarone) MEDICATION WASTE Product Size: 150 mg Product Wasted: ___ mg lactobacill 2017-10 No 1 cap, Kaushal munira us 2-23 Route: PO, l acidophilus 15:00: Dosing Herm valentin Weight 136, kg, Daily, Start date: 09/23/18 9:00:00 CAREERS ADVISER, Duration: 30 day, Stop date: 10/22/18 9:00:00 CAREERS ADVISER Cymbalta 2017-10 No Notes: Memoria 2-23 (Same as: l 15:00: Cymbalta) Maxie 00 (Do Not Crush) Vitamin B12 2017-10 No Notes: Kaushal munira 2-23 (Same As: l 15:00: Vitamin Maxie 00 B-12) Alprazolam 2017-10 No Notes: Memor ia 1 MG Oral 2-23 With food l Tablet 15:00: or milk Maxie (Same as: Xanax) POLYETHYLEN 2017-10 No Notes: Kaushal munira E GLYCOL 2-23 Dissolve l 3350 15:00: in 8 oz of Maxie water or juice. (Same as: Miralax) lactobacill 2017-10 No Notes: Kaushal munira us 2-23 Same as l rhamnosus 15:00: Culturelle He rmann GG 00 Spiriva 2017-10 No Notes: Memoria 2-23 (Same As: l 14:00: Spiriva) Maxie 00 pantoprazol 2017-10 No Notes: Kaushal munira e 2-23 Tablet l 13:30: should not be chewed or crushed. (Same as: Protonix) Enoxaparin 2017-10 No Notes: Memor ia 2-23 (Same as: l 07:00: Lovenox) montelukast 2017-10 No Notes: Kaushal munira 2-23 (Same l 03:00: as:Singula ir) atorvastati 2017-10 No Notes: Kaushal munira n 2-23 (Same as: l 03:00: Lipitor) sennosides, 2017-10 No Notes: Kaushal munira LONG-TERM 2-23 (Same as: l 03:00: Senokot) Ceftriaxone 2017-10 No Notes: Kaushal munira 2-23 (Same As: l 00:00: Rocephin). Use with 100 mL NS and infuse over 30 min MEDICATION WASTE Product Size: 1000 mg Product Wasted: 0 mg Coreg 2017-10 No Notes: Memoria 2-22 Give with l 23:00: food. Leo 00 (Same As: Coreg) Docusate 2017-10 No Notes: Memoria 2-22 (Same as: l 23:00: Colace) (Do Not Crush) Rocephin 2017-10 No 1 gm, Memoria 2-22 Route: l 21:18: IVPB, Drug form: PDR/INJ, ONCE, Dosing Weight 136, kg, Priority: STAT, Start date: 09/22/18 15:18:00 CAREERS ADVISER, Stop date: 09/22/18 15:18:00 CAREERS ADVISER, ABX Indication : Urinary Tract Infection gabapentin 2017-10 No Notes: Memor ia 2-22 (Same as: l 20:00: Neurontin) Acetaminoph 2017-10 No Notes: Max Memoria en 2-22 acetaminop l 20:00: hen 4000 Leo 00 mg/day (4 gm/day). (Same as: Tylenol Extra Strength) celecoxib 2017-10 No Notes: Memori a 2-22 NSAID. l 20:00: Please Leo 00 check indication . Not for seizure. (Same As: CeleBREX) Albuterol 2017-10 No Notes: Memori a 0.833 MG/ML 2-22 (Same as: l / 19:47: Duoneb) Ipratropium 00 [place] 0.167 MG/ML Inhalant Solution [DuoNeb] Oxazepam 30 2017-10 No 30 mg, 1 Me moria MG Oral 2-22 cap, l Capsule 19:47: Route: PO, Herm valentin Drug form: CAP, Bedtime, Dosing Weight 136, kg, Priority: NOW, Start date: 09/22/18 13:47:00 CAREERS ADVISER, Duration: 30 day, Stop date: 10/21/18 21:00:00 CAREERS ADVISER Vitamin B12 2017-10 No 1,000 Memor ia 1000 mcg 2-22 microgram l oral tablet 19:45: = 1 tab, He rmann 00 PO, Daily, # 30 tab, 0 Refill(s) Metoprolol 2017-10 No Notes: Memor ia 2-22 (Same as: l 19:38: Lopressor) Push over 2 minutes Saline 2017-10 No Notes: Memoria Flush 0.9% 2-22 (Same as: l 19:37: BD Leo 00 Posiflush) Lactated 2017-10 No 1,000 mL, Kaushal munira Ringers IV 2-22 Rate: 100 l 1,000 mL 19:37: ml/hr, Infuse over: 10 hr, Route: IV, Dosing Weight 136 kg, Total Volume: 1,000, Start date: 09/22/18 13:37:00 CAREERS ADVISER, Duration: 12 hr, Stop date: 09/23/18 1:36:00 CAREERS ADVISER, 2.56, m2 Furosemide 2017-10 No 40 mg = 1 Me moria 40 MG Oral 2-22 tab, PO, l Tablet 19:28: BID, # 30 [place] n 00 tab, 0 Refill(s) atorvastati 2017-10 Yes 40 mg = 1 M emoria n 40 mg 2-22 tab, PO, l oral tablet 19:28: Bedtime, # Maxie 00 30 tab, 0 Refill(s) clopidogrel 2017-10 Yes 75 mg = 1 M emoria 75 mg oral 2-22 tab, PO, l tablet 19:28: Daily, # Maxie 00 30 tab, 0 Refill(s) omeprazole 2017-10 Yes 20 mg = 1 Me moria 20 mg oral 2-22 tab, PO, l enteric 19:28: Daily, # Sterling n coated 00 30 tab, 3 tablet Refill(s) Acidophilus 2017-10 No Daily, 0 Me moria 2-22 Refill(s) l 19:28: Maxie carvedilol 2017-10 No 25 mg = 1 Me moria 25 MG Oral 2-22 tab, PO, l Tablet 19:28: BID, # 60 [place] n [Coreg] 00 tab, 0 Refill(s) montelukast 2017-10 Yes 10 mg = 1 M emoria 10 mg oral 2-22 tab, PO, l tablet 19:28: Bedtime, # Mervat nn 00 30 tab, 0 Refill(s) Miralax 2017-10 No 17 gm, PO, Kaushal munira 2-22 Daily, PRN l 19:28: Constipati on, 0 Refill(s) Tramadol 2017-10 No Notes: Not Mem oria 2-22 to exceed l 19:27: 400mg/day. Leo (Same As: Ultram) Hydromorpho 2017-10 No Notes: Kaushal munira ne 2-22 Same as l 19:27: Dilaudid Melatonin 2017-10 No Notes: Memori a 2-22 (Same as: l 19:27: Melatonin) tizanidine 2017-10 No Notes: Memor ia 2-22 (Same As: l 19:27: Zanaflex) Ondansetron 2017-10 No Notes: Kaushal munira 2-22 (Same as: l 19:27: Zofran) MEDICATION WASTE Product Size: 4 mg Product Wasted: _0__ mg Oxycodone 2017-10 No 5 mg, 1 Memor ia Hydrochlori 2-22 tab, l de 5 MG 18:00: Route: PO, Herm valentin Oral Tablet 00 Q6H, Dosing Weight 136, kg, Start date: 09/22/18 12:00:00 CAREERS ADVISER, Duration: 30 day, Stop date: 10/22/18 6:00:00 CAREERS ADVISER Hydromorpho 2017-10 No 0.5 mg, Mem oria ne 2-22 Route: l 17:53: IVP, ONCE, Maxie Dosing Weight 136, kg, Priority: STAT, Start date: 09/22/18 11:53:00 CAREERS ADVISER, Stop date: 09/22/18 11:53:00 CAREERS ADVISER Calcium 2017-10 No 1,000 mL, Memor ia Chloride 11-23 Infuse l 0.0014 16:51: Over: 1 Maxie MEQ/ML / 00 hr, Route: Potassium IV, ONCE, Chloride Priority: 0.004 STAT, MEQ/ML / Dosing Sodium Weight 136 Chloride kg, Start 0.103 date: MEQ/ML / 09/22/18 Sodium 10:51:00 Lactate CAREERS ADVISER, Stop 0.028 date: MEQ/ML 09/22/18 Injectable 10:51:00 Solution CAREERS ADVISER Oxycodone 2017-10 No Notes: Memori a Hydrochlori 11-23 (Same as: l de 5 MG 16:08: Roxicodone Herm valentin Oral Tablet 00 ) Oxycodone 2017-10 No 5 mg, Memoria Hydrochlori 11-23 Route: PO, l de 5 MG 14:22: ONCE, Leo Oral Tablet Dosing Weight 136, kg, Start date: 09/22/18 8:22:00 CAREERS ADVISER, Stop date: 09/22/18 8:22:00 CAREERS ADVISER Coreg 2017-10 No 25 mg, Memoria 11-23 Route: PO, l 14:16: ONCE, Maxie Dosing Weight 136, kg, Start date: 09/22/18 8:16:00 CAREERS ADVISER, Stop date: 09/22/18 8:16:00 CAREERS ADVISER Dilaudid 2017-10 No 1 mg, Memoria 11-23 Route: l 10:55: IVP, ONCE, Maxie Dosing Weight 136, kg, Priority: STAT, Start date: 09/22/18 4:55:00 CAREERS ADVISER, Stop date: 09/22/18 4:55:00 CAREERS ADVISER Dilaudid 2017-10 No 1 mg, Memoria 11-23 Route: l 08:13: IVP, ONCE, Leo Dosing Weight 136, kg, Priority: STAT, Start date: 09/22/18 2:13:00 CAREERS ADVISER, Stop date: 09/22/18 2:13:00 CAREERS ADVISER Fentanyl 2017-10 No 25 Memoria 2 microgram, l 07:25: Route: Leo 00 IVP, ONCE, Dosing Weight 136, kg, Priority: STAT, Start date: 09/22/18 1:25:00 CAREERS ADVISER, Stop date: 09/22/18 1:25:00 CAREERS ADVISER DULoxetine 2017-0 Yes 120mg QD Take [address] (CYMBALTA) 4-04 mg by [facility] 60 MG 17:51: mouth Medical capsule 44 daily. Center gabapentin 2017-0 Yes 600mg Q.25D Take [address] (NEURONTIN) 4-04 mg by [facility] 600 MG 17:51: mouth 4 Medical tablet 44 (four) Center times daily. ferrous 2017-0 Yes 325mg Take [facility] sulfate 325 4-04 mg by [facility] (65 FE) MG 17:51: mouth Medica l tablet 44 daily with Center breakfast. montelukast 2017-0 Yes 10mg QD Take [address] [facility] (SINGULAIR) 4-04 by mouth Luke s 10 mg 17:51: nightly. Medical tablet 44 Center oxazepam 2017-0 Yes 30mg Q.25D Take [address] [facility] (SERAX) 30 4-04 by mouth 4 [place] MG capsule 17:51: (four) Medic al 44 times Center daily. budesonide- 2017-0 Yes 2{puff} Q.5D Inhale [address] formoterol 4-04 puffs by [facility] (SYMBICORT) 17:51: mouth via M edical 160-4.5 44 inhaler 2 Center mcg/actuati (two) on inhaler times daily. zolpidem 2017-0 Yes 10mg Take [address] [facility] (AMBIEN) 10 4-04 by mouth Luke s mg tablet 17:51: every Medical 44 night as Center needed for Insomnia. carvedilol 2017-0 Yes 25mg Take 2 [facility] (COREG) 4-04 tablets [facility] 12.5 MG 00:00: (25 mg Medical tablet 00 total) by Center mouth 2 (two) times daily with breakfast and dinner. traMADol 2017-0 Yes 50mg Take [address] [facility] (ULTRAM) 50 4-04 tablet (50 Radha kes mg tablet 00:00: mg total) Med ical 00 by mouth Center every 8 (eight) hours as needed for Pain. Max Daily Amount: 150 mg famotidine 2017-0 Yes 20mg Q.5D Take 1 [facility] (PEPCID) 20 4-04 tablet (20 Radha kes MG tablet 00:00: mg total) Med ical 00 by mouth 2 Center (two) times daily. zinc Yes 71g Q.5D Apply [address] oxide-jabier 4-04 topically [place] es latum 00:00: 2 (two) Medical (CRITIC-AID 00 times Center ) 20-51 % daily. Pste topical paste TRAMADOL 50 2021- No TAKE 1 Uni vers mg tablet 12-19 TABLET BY ity of 00:00: 00:00 MOUTH [place] 00 :00 EVERY 6 Medical HOURS Branch NEEDED FOR PAIN cyclobenzap 2014-10- No Unive rs rine 10-26 02-05 ity of (FLEXERIL) 00:00: 00:00 [place] 10 mg 00 :00 Medical tablet Branch gabapentin 2014-10- No Univer s (NEURONTIN) 10-2108 ity of 600 mg 00:00: 00:00 [place] tablet 00 :00 Medical Branch metolazone 2014-10- No Univer s (ZAROXOLYN 10-18 ity of 2.5MG) 2.5 00:00: 00:00 [place] mg tablet 00 :00 Medical Branch methocarbam 2014-10- No Unive rs ol 10-04 02-05 ity of (ROBAXIN) 00:00: 00:00 [place] 750 mg 00 :00 Medical tablet Branch Vital Signs Vital Name Observation Time Observation Value Comments Source Systolic blood 2021-11-11 18:00:00 114 mm[Hg] Univer sity of pressure [facility] Diastolic blood 2021-11-11 18:00:00 65 mm[Hg] Unive rsity of pressure [facility] Heart rate 2021-11-11 18:00:00 80 /min [facility]i [facility] [place] Respiratory rate 2021-11-11 18:00:00 18 /min [facility] Oxygen saturation in 2021-11-11 18:00:00 90 /min [facility] Arterial blood by [facility] Pulse oximetry Branch Body temperature 2021-11-11 17:00:00 36.67 Louise [facility] Body weight 2021-11-10 09:12:00 143.473 kg [facility] BMI 2021-11-10 09:12:00 52.64 kg/m2 [facility] Body height 2021-11-08 14:00:00 165.1 cm [facility] Temperature Oral (F) 2018-09-27 17:38:00 98.5 F [facility] Systolic (mm Hg) 2018-09-27 17:38:00 [facility] Diastolic (mm Hg) 2018-09-27 17:38:00 Mem [facility] Heart Rate 2018-09-27 17:38:00 [facility] Respitory Rate 2018-09-27 17:38:00 [facility] Heart Rate 2018-09-27 17:13:00 [facility] Systolic (mm Hg) 2018-09-27 14:52:00 K[facility]hal [facility] Diastolic (mm Hg) 2018-09-27 14:52:00 Mem o[facility] Heart Rate 2018-09-27 14:52:00 [facility] Temperature Oral (F) 2018-09-27 14:52:00 98.2 F [facility] Respitory Rate 2018-09-27 14:52:00 Memori al Maxie Temperature Oral (F) 2018-09-27 11:32:00 98.2 F [facility] Systolic (mm Hg) 2018-09-27 11:32:00 Kaushal rial Maxie Diastolic (mm Hg) 2018-09-27 11:32:00 Mem orial Leo Respitory Rate 2018-09-27 11:32:00 Memori [facility] Weight 2018-09-22 06:43:00 [facility] Max[facility] BMI Calculated 2018-09-22 06:43:00 Memori al Maxie Height 2018-09-22 06:43:00 [facility] Procedure Date / Time Performing Clinician Source Performed EXTERNAL PROVIDER RECORDS 2022-05-26 05:01:00 Doctor Unassigned, [facility] [place] [facility] EXTERNAL PROVIDER RECORDS 2021-11-24 06:01:00 Doctor Unassigned, [facility] Name [facility] COMP. METABOLIC PANEL 2021-11-11 08:10:00 Adolfo Armstrong [facility] ([id number]) [facility] CBC WITH DIFF 2021-11-11 08:10:00 Patti [facility] N-TERMINAL PRO-BNP 2021-11-11 08:10:00 Patti [facility] XR CHEST 1 VW 2021-11-10 19:51:47 Jennifer Mccormick [facility] ACUTE CARE ARTERIAL BLOOD 2021-11-10 16:50:00 Aditi Mary [facility] PHOSPHORUS 2021-11-10 12:52:00 Patti [facility] MAGNESIUM 2021-11-10 12:52:00 Patti [facility] COMP. METABOLIC PANEL 2021-11-10 12:52:00 Patti [facility] ([id number]) [facility] CBC WITH DIFF 2021-11-10 12:52:00 Patti [facility] N-TERMINAL PRO-BNP 2021-11-10 12:52:00 Patti [facility] VITAMIN B12, LEVEL 2021-11-09 22:51:00 Patti [facility] IRON PANEL 2021-11-09 22:51:00 Patti [facility] PROTHROMBIN TIME / INR 2021-11-09 22:51:00 Patti scott [facility] VITAMIN D, 25-OH 2021-11-09 22:51:00 Patti [facility] PROCALCITONIN 2021-11-09 22:51:00 Patti scott [facility] PHOSPHORUS 2021-11-09 09:39:00 [facility] 2021-11-09 09:39:00 Dafne [facility] BASIC METABOLIC PANEL 2021-11-09 09:39:00 Dafne [facility] (NA, K, CL, CO2, GLUCOSE, Medica l Branch BUN, CREATININE, CA) N-TERMINAL PRO-BNP 2021-11-09 09:39:00 Dafne [facility] TRANSTHORACIC ECHO (TTE) 2021-11-07 14:31:00 Doug Spivey [facility] COMPLETE W/ CONTRAST Medical [facility] PHOSPHORUS 2021-11-07 10:09:00 Doug Spivey [facility] Branch MAGNESIUM 2021-11-07 10:09:00 Allyssa [facility] C-REACTIVE PROTEIN 2021-11-07 10:09:00 Janay Ochoa [facility] TROPONIN I 2021-11-07 10:09:00 Krystyna Jaeger.HCris [facility] COMP. METABOLIC PANEL 2021-11-07 10:09:00 Janay [facility] ([id number]) [facility] LIPID PANEL ([id number])(TOTAL 2021-11-07 10:09:00 Krystyna Jaeger K.H Cris [facility] CHOLESTEROL, [facility] TRIGLYCERIDES, HDL) CBC WITH DIFF 2021-11-07 10:09:00 Allyssa [facility] N-TERMINAL PRO-BNP 2021-11-07 10:09:00 Krystyna Jaeger K.HCris [facility] HEAD WO CONTRAST 2021-11-07 08:44:06 Janay Ochoa [facility] POCT GLUCOSE (AUTOMATED) 2021-11-07 03:45:00 Doug Spivey [facility] URINE DRUG (IMMUNOASSAY) 2021-11-07 02:22:00 Ochoa Gustafson [facility] - COMPREHENSIVE DRUG [facility] SCREEN URINE DRUG (LCMSMS) - 2021-11-07 02:22:00 Janay [facility] OPIATES PANEL [facility] URINE DRUG (LCMSMS) - 2021-11-07 02:22:00 Janay [facility] SYNTHETIC OPIATES PANEL [facility] HB ECG ROUTINE & RHYTHM 2021-11-06 22:47:06 Mattie Thapa [facility] STRIP Medical Branch COVID-19 (ID NOW RAPID 2021-11-06 22:38:00 [facility] [place] [facility]) Medical Branch LAB ONLY COVID 2021-11-06 22:38:00 Mattie Thapa [facility] INTERPRETATION [facility] MISCELLANEOUS CULTURE 2021-11-06 21:15:00 Mattie Thapa [facility] URINALYSIS 2021-11-06 21:09:00 Mattie Thapa [facility] URINE CULTURE 2021-11-06 21:08:00 Mattie Thapa [facility] XR CHEST 1 VW 2021-11-06 20:59:57 Mattie Thapa [facility] BLOOD CULTURE SCREEN 2021-11-06 20:26:00 Mattie Thapa [facility] FERRITIN SERUM 2021-11-06 20:26:00 Janay [facility] THYROID STIMULATING 2021-11-06 20:26:00 Janay Ochoa [facility] HORMONE [facility] COMP. METABOLIC PANEL 2021-11-06 20:26:00 Mattie Thapa [facility] ([id number]) [facility] IRON PANEL 2021-11-06 20:26:00 Doug Spivey [facility] CBC WITH DIFF 2021-11-06 20:26:00 Mattie Thapa [facility] GLYCOSYLATED HEMOGLOBIN 2021-11-06 20:26:00 Janay [facility] (A1C) [facility] LACTIC ACID WHOLE BLOOD 2021-11-06 20:25:00 Mattie Thapa [facility] EMERGENCY SERVICES 2021-11-06 06:01:00 Doctor Unassigned, [facility] AGREEMENTS AND [place] [facility] [place] AUTHORIZATIONS HOSPITAL ADMISSION [facility] - 2021-11-06 06:01:00 Doctor Unassigned, [facility] MEDICARE PATIENTS RIGHTS [place] [facility] IMPORTANT MESSAGE [U] XRAY FEMUR 2 VWS LEFT 2018-11-30 00:00:00 [facility] [id number] [U] XRAY KNEE 1 OR 2 VWS 2018-11-13 00:00:00 [facility] RIGHT [id number] [U] XRAY ANKLE MIN 3 VWS 2018-11-13 00:00:00 [facility] RIGHT [id number] [U] XRAY FEMUR 2 VWS LEFT 2018-11-06 00:00:00 [facility] [id number] [U] XRAY FEMUR 2 VWS LEFT 2018-10-31 00:00:00 [facility] [id number] [U] XRAY FEMUR 2 VWS LEFT 2018-10-26 00:00:00 [facility] [id number] TKR -Total prosthetic 2012-10-02 00:00:00 Sree Simmons replacement of knee joint using cement Abdominal hysterectomy 1964-10-02 00:00:00 Simona Bailey Appendectomy 1956-10-02 00:00:00 [facility] Encounters Start End Encounter Admission Attending Care Care Encounter Source Date/Time Date/Time Type Type Clinicians Facility Department ID 2022-05-26 2022-05-26 Orders Doctor DAGMAR [id number] Univers 00:00:00 00:00:00 Only Unassigned, MINDY 350.1.13.10 ity of [place] [facility] 4.2.7.2.686 Scar as [id number] [facility] 009 Branch 2021-11-24 2021-11-24 Orders Doctor DAGMAR [id number] Univers 00:00:00 00:00:00 Only Unassigned, MINDY 350.1.13.10 ity of [place] [facility] 4.2.7.2.686 Scar as [id number] [facility] 009 Branch 2021-11-12 2021-11-12 Transition LÓPEZ RoperRavinder [id number] Univers 00:00:00 00:00:00 of Care Arnulfo DYKES 350.1.13.10 [place] [id number] [facility] 403 Branch 2021-11-06 2021-11-11 Hospital Mattie Thapa [facility] [id number] Univers 13:33:00 14:37:00 Encounter Doug Spivey 350.1.13.10 ity of [place] Mary 4.2.7.2.686 [facility] [id number] [facility] 080 Branch 2021-11-06 2021-11-11 Inpatient X USMAN [facility] [id number] Univers 13:33:00 14:37:00 ADITI rey [facility] 2018-12-11 2018-12-11 Appointmen DERECK [facility] Orthopedics [id number] [place] 12:00:00 12:00:00 t; FLASH HARDEN P.A. Physici JEANA, ans P.A. 2018-11-13 2018-11-13 Appointmen DERECK [facility] Orthopedics [id number] [place] 12:00:00 12:00:00 t; FLASH HARDEN P.A. Physici JEANA, ans P.A. 2018-11-06 2018-11-06 [facility] [id number] [place] 10:45:00 10:45:00 t; Reinier HARDIN Physi tej LEAVITT M.D. ans 2018-10-05 2018-10-05 [id number] [place] 10:45:00 10:45:00 t; FLASH HARDEN P.A. Physici JEANA, ans P.A. 2018-09-22 2018-09-27 Inpatient [facility] [id number] Memoria 06:43:00 23:40:00 [facility] 55 l [facility] 2018-09-22 2018-09-27 Outpatient [facility] [id number] 00:43:00 17:40:00 Nooreen 55 Results Test Description Test Time Test Comments Results Result Comments Source N-TERMINAL PRO-BNP 2021-11-11 09:23:09 Test Item Value Reference Range Interpretation Comme nts NT-proBNP (test code = 5100 pg/mL See_Comment H [Aut omated message] The 0522724407) system which ge nerated this result tra nsmitted reference range : <=450. The reference r bharti was not used to int erpret this result as zaida l/abnormal. JEAN-PIERRE (test code = JEAN-PIERRE) Biotin has been reported to cause a negative bias, interpret results relative to patient's use of biotin. Lab Interpretation (test Abnormal code = 56231-2) [facility] ([id number])2021-11-11 09:14:47 Test Item Value Reference Range Interpretation Comments NA (test code = 139 mmol/L 135-145 2995564214) K (test code = 3.2 mmol/L 3.5-5.0 L 9544393182) CL (test code = 103 mmol/L 98-108 3705981568) CO2 TOTAL (test code = 31 mmol/L 23-31 6468772159) AGAP (test code = 2-16 8357461231) BUN (test code = 14 mg/dL 7-23 5493325598) GLUCOSE (test code = 141 mg/dL 70-110 H 5824314807) CREATININE (test code = 0.76 mg/dL 0.50-1.04 7295021589) TOTAL BILI (test code = 0.4 mg/dL 0.1-1.1 2260711640) CALCIUM (test code = 9.2 mg/dL 8.6-10.6 5879748402) T PROTEIN (test code = 6.3 g/dL 6.3-8.2 8293947373) ALBUMIN (test code = 3.4 g/dL 3.5-5.0 L 0633774046) ALK PHOS (test code = 141 U/L 34-122 H 4912943248) ALTv (test code = 11 U/L 5-35 1742-6) AST(SGOT) (test code = 17 U/L 13-40 2244729311) eGFR (test code = mL/min/1.73m2 7704881239) JEAN-PIERRE (test code = JEAN-PIERRE) Association of [...] tests). Lab Interpretation Abnormal (test code = 61899-5) [facility] WITH [id number] 09:07:25 Test Item Value Reference Range Interpretation [...] (test code = 61.1 fL 39.0-49.9 H 56284-8) RDW-CV (test code = 18.8 % 12.0-15.5 H 788-0) PLT (test code = See_Comment L [Automated 777-3) message] The sy stem which generated this result transmitted reference range : 166 - 358 10*3/ ?L. The reference r bharti was not used to interpret this result as normal/abnormal . MPV (test code = 9.5 fL 9.5-12.9 13083-4) IPF % (test code = 1.2 % 1.3-7.7 L Platelet count 0603584940) measured by fluorescence method. NRBC/100 WBC (test See_Comment [Automat ed code = 5598828507) message] The system which generated this result transmitted reference range : 0.0 - 10.0 /100 WBCs. The refer ence range was not u sed to interpret th is result as normal/abnormal . NRBC x10^3 (test code <0.01 See_Comment [Auto mated = 1412105885) message] The s ystem which generated this result transmitted reference range : 10*3/?L. The reference range was not used to interpret this result as normal/abnormal . GRAN MAT (NEUT) % 71.3 % (test code = 770-8) IMM GRAN % (test code 0.30 % = 5450106027) LYMPH % (test code = 17.0 % 736-9) MONO % (test code = 7.0 % 5905-5) EOS % (test code = 4.1 % 713-8) BASO % (test code = 0.3 % 706-2) GRAN MAT x10^3(ANC) 4.50 10*3/uL 1.88-7.09 (test code = 0607777082) IMM GRAN x10^3 (test <0.03 0.00-0.06 code = 6520415178) LYMPH x10^3 (test code 1.07 10*3/uL 1.32-3.29 L = 731-0) MONO x10^3 (test code 0.44 10*3/uL 0.33-0.92 = 742-7) EOS x10^3 (test code = 0.26 10*3/uL 0.03-0.39 711-2) BASO x10^3 (test code <0.03 0.01-0.07 = 704-7) Lab Interpretation Abnormal (test code = 65727-1) [facility] Arterial Blood Gas.2021-11-10 16:53:46 Test Item Value Reference Range Interpretation Comments PH (test code = 2) 7.35-7.45 PCO2 (test code = See_Comment H [Automate d message] 5407640780) The system [employer] generated this result transmitted ref erence range: 35 - 45 mmHg. The reference r bharti was not used to interpret this result as normal/abnor mal. PO2 (test code = See_Comment H [Automated message] 2030453587) The system [employer] generated this result transmitted ref erence range: 80 - 100 mmHg. The reference r bharti was not used to interpret this result as normal/abnor mal. HCO3 (test code = See_Comment H [Automate d message] 7063336286) The system [employer] generated this result transmitted ref erence range: 22 - 26 mEq/L. The reference r bharti was not used to interpret this result as normal/abnor mal. BE (test code = See_Comment [Automated message] 0594369896) The system [employer] generated this result transmitted ref erence range: -3.0 - 3 .0 mEq/L. The refe rence range was not u sed to interpret this result as normal/abnor mal. Lab Interpretation (test Abnormal code = 69534-6) [facility] [id number] 13:39:20 Test Item Value Reference Range Interpretation Comments NT-proBNP (test code 8330 pg/mL See_Comment H [Autom ated = 6212025957) message] The system which generated this result transmitted reference range : <=450. The reference range was not used to interpret this result as normal/abnormal . JEAN-PIERRE (test code = JEAN-PIERRE) Biotin has been reported to cause a negative bias, interpret results relative to patient's use of biotin. Lab Interpretation Abnormal (test code = 84918-5) [facility]2022-02-09 13:31:42 Test Item Value Reference Range Interpretation Comments MAGNESIUM (test code = 2070375177) 1.6 mg/dL 1.7-2.4 L Lab Interpretation (test code = Abnormal 36551-2) [facility]OLIC PANEL ([id number])2021-11-10 13:31:22 Test Item Value Reference Range Interpretation Comments NA (test code = 137 mmol/L 135-145 6466845416) K (test code = 3.8 mmol/L 3.5-5.0 2040588950) CL (test code = 104 mmol/L 98-108 2640433744) CO2 TOTAL (test code = 29 mmol/L 23-31 7779344733) AGAP (test code = 2-16 3300877948) BUN (test code = 11 mg/dL 7-23 3134585128) GLUCOSE (test code = 124 mg/dL 70-110 H 4926074493) CREATININE (test code = 0.71 mg/dL 0.50-1.04 8372319508) TOTAL BILI (test code = 0.5 mg/dL 0.1-1.5 7507005733) CALCIUM (test code = 8.8 mg/dL 8.6-10.6 2518375668) T PROTEIN (test code = 6.1 g/dL 6.3-8.2 L 7034032064) ALBUMIN (test code = 3.2 g/dL 3.5-5.0 L 7117176373) ALK PHOS (test code = 133 U/L 34-122 H 5501788537) ALTv (test code = 11 U/L 5-35 1742-6) AST(SGOT) (test code = 26 U/L 13-40 8969100192) eGFR (test code = mL/min/1.73m2 7203741495) JEAN-PIERRE (test code = JEAN-PIERRE) Association of [...] tests). Lab Interpretation Abnormal (test code = 69619-3) [facility]2022-02-09 13:31:02 Test Item Value Reference Range Interpretation Comments PHOSPHORUS (test code = 7958918470) 3.5 mg/dL 2.5-5.0 Lab Interpretation (test code = Normal 14797-0) [facility] WITH [id number] 13:06:17 Test Item Value Reference Range Interpretation [...] (test code = 59.9 fL 39.0-49.9 H 68746-1) RDW-CV (test code = 18.6 % 12.0-15.5 H 788-0) PLT (test code = See_Comment L [Automated 777-3) message] The sy stem which generated this result transmitted reference range : 166 - 358 10*3/ ?L. The reference r bharti was not used to interpret this result as normal/abnormal . MPV (test code = 9.6 fL 9.5-12.9 75801-4) NRBC/100 WBC (test See_Comment [Automat ed code = 0963196652) message] The system which generated this result transmitted reference range : 0.0 - 10.0 /100 WBCs. The refer ence range was not u sed to interpret th is result as normal/abnormal . NRBC x10^3 (test code See_Comment [Auto mated = 6868971897) message] The s ystem which generated this result transmitted reference range : 10*3/?L. The reference range was not used to interpret this result as normal/abnormal . GRAN MAT (NEUT) % 67.6 % (test code = 770-8) IMM GRAN % (test code 0.80 % = 9440458897) LYMPH % (test code = 20.6 % 736-9) MONO % (test code = 6.4 % 5905-5) EOS % (test code = 4.3 % 713-8) BASO % (test code = 0.3 % 706-2) GRAN MAT x10^3(ANC) 4.09 10*3/uL 1.88-7.09 (test code = 6648372152) IMM GRAN x10^3 (test 0.05 10*3/uL 0.00-0.06 code = 3872227405) LYMPH x10^3 (test code 1.25 10*3/uL 1.32-3.29 L = 731-0) MONO x10^3 (test code 0.39 10*3/uL 0.33-0.92 = 742-7) EOS x10^3 (test code = 0.26 10*3/uL 0.03-0.39 711-2) BASO x10^3 (test code <0.03 0.01-0.07 = 704-7) Lab Interpretation Abnormal (test code = 81304-3) [facility], [id number] 09:17:51 Test Item Value Reference Range Interpretation Comments VIT D 25OH (test code = 30 ng/mL 25-80 15393-8) JEAN-PIERRE (test code = JEAN-PIERRE) Deficiency: <20 ng/mLInsufficiency : 20-24 ng/mLOptimal: 25-80 ng/mL Lab Interpretation (test Normal code = 56046-5) [facility] B12, [id number] 08:17:53 Test Item Value Reference Range Interpretation Comments VIT B12 (test code = >1000 240-930 H 4500291931) JEAN-PIERRE (test code = JEAN-PIERRE) Biotin has been reported to cause a positive bias, interpret results relative to patient's use of biotin. Lab Interpretation (test Abnormal code = 62681-4) [facility]AL[facility]2022-02-09 07:15:44 Test Item Value Reference Range Interpretation Comments Procalcitonin (test 0.03 ng/mL <0.07 code = 5146031365) JEAN-PIERRE (test code = JEAN-PIERRE) INTERPRETATION OF [...] lung abscess/empyema. For further information please refer to:[email or web address] Lab Interpretation Normal (test code = 30278-0) [facility]ervilleIRON [id number] 00:36:14 Test Item Value Reference Range Interpretation Comments IRON (test code = 6680691891) 35 ug/dL 50-160 L TIBC (test code = 8744789900) 255 ug/dL 250-410 % FE SAT (test code = 2779153909) 14 % 20-50 L Lab Interpretation (test code = Abnormal 93527-7) [facility]ervillePROTHROMBIN TIME / [id number] 23:27:38 Test Item Value Reference Range Interpretation Comments PROTIME PATIENT (test See_Comment H [Auto mated message] code = 5964-2) The system [employer] generated this result transmitted ref erence range: 12.0 - 1 4.7 Seconds. The reference range was not used to int erpret this result as normal/abnormal . INR (test code = 6301-6) Nor mal INR <1.1; Warfarin Therap eutic range 2.0 to 3. 0 or 2.5 to 3.5, dep ending upon the indica tions. Lab Interpretation (test Abnormal code = 56882-6) [facility]AL [id number] 11:45:52 Test Item Value Reference Range Interpretation Comments NT-proBNP (test code 7910 pg/mL See_Comment H [Autom ated = 1583021871) message] The system which generated this result transmitted reference range : <=450. The reference range was not used to interpret this result as normal/abnormal . JEAN-PIERRE (test code = JEAN-PIERRE) Biotin has been reported to cause a negative bias, interpret results relative to patient's use of biotin. Lab Interpretation Abnormal (test code = 71334-2) [facility] (NA, K, CL, CO2, GLUCOSE, BUN, CREATININE, CA)2021-11-09 11:38:49 Test Item Value Reference Range Interpretation Comments NA (test code = 139 mmol/L 135-145 4114822995) K (test code = 3.8 mmol/L 3.5-5.0 1393495267) CL (test code = 108 mmol/L 98-108 9044920851) CO2 TOTAL (test code 26 mmol/L 23-31 = 6371673200) AGAP (test code = 2-16 1100159316) BUN (test code = 9 mg/dL 7-23 9467493235) GLUCOSE (test code = 101 mg/dL 70-110 6265944653) CREATININE (test code 0.68 mg/dL 0.50-1.04 = 4341084925) CALCIUM (test code = 9.6 mg/dL 8.6-10.6 7320325914) eGFR (test code = mL/min/1.73m2 5297000268) JEAN-PIERRE (test code = JEAN-PIERRE) Association of [...] or urine or abnormalities in imaging tests). [facility]2022-02-08 11:38:49 Test Item Value Reference Range Interpretation Comments MAGNESIUM (test code = [id number]) 1.8 mg/dL 1.7-2.4 Lab Interpretation (test code = Normal 45706-7) [facility] 11:38:29 Test Item Value Reference Range Interpretation Comments PHOSPHORUS (test code = 2707612682) 3.4 mg/dL 2.5-5.0 Lab Interpretation (test code = Normal 30268-7) [facility]IRON [id number] 21:02:27 Test Item Value Reference Range Interpretation Comments IRON (test code = 5346193385) 30 ug/dL 50-160 L TIBC (test code = 6469702591) 290 ug/dL 250-410 % FE SAT (test code = 9435415427) 10 % 20-50 L Lab Interpretation (test code = Abnormal 45804-3) [facility]OP[facility] [id number] 20:12:01 Test Item Value Reference Interpretation Comments Range TROPONIN I (test 0.020 ng/mL See_Comment [Automated code = 2310994645) message] The system which generated this result [...] biotin. Lab Interpretation Normal (test code = 87270-3) [facility]N-TERMINAL [id number] 20:09:00 Test Item Value Reference Range Interpretation Comments NT-proBNP (test code 2780 pg/mL See_Comment H [Autom ated = 3761106940) message] The system which generated this result transmitted reference range : <=450. The reference range was not used to interpret this result as normal/abnormal . JEAN-PIERRE (test code = JEAN-PIERRE) Biotin has been reported to cause a negative bias, interpret results relative to patient's use of biotin. Lab Interpretation Abnormal (test code = 06391-5) [facility]ervilleLIPID PANEL (39499)(TOTAL CHOLESTEROL, TRIGLYCERIDES, HDL)2021-11-07 19:59:43 Test Item Value Reference Range Interpretation Comments CHOL (test code = 78 mg/dL 120-200 L 7790064707) HDL (test code = 46 mg/dL >50 L 8436110615) HDLC RATIO (test code = See_Comment [Au tomated message] 2063809035) The system [employer] generated this result transmitted ref erence range: <=4.5. T he reference range was not used to int erpret this result as normal/abnormal . TRIG (test code = 68 mg/dL 30-170 4898162772) LDL CHOL (test code = 18 mg/dL See_Comment [Auto mated message] 76919-3) The system [employer] generated this result transmitted ref erence range: <=160. T he reference range was not used to int erpret this result as normal/abnormal . VLDL (test code = 14 mg/dL 5-60 4365439447) Lab Interpretation (test Abnormal code = 31781-4) [facility]-REACTIVE [id number] 19:09:12 Test Item Value Reference Range Interpretation Comments CRP (test code = 4821935391) 0.9 mg/dL <0.8 H Lab Interpretation (test code = Abnormal 46435-2) [facility] with Hqqqogmlajfp1959-93-94 15:13:46 Test Item Value Reference Range Interpretation [...] (test code = 59.0 fL 39.0-49.9 H 54265-8) RDW-CV (test code = 17.6 % 12.0-15.5 H 788-0) PLT (test code = See_Comment L [Automated 777-3) message] The sy stem which generated this result transmitted reference range : 166 - 358 10*3/ ?L. The reference r bharti was not used to interpret this result as normal/abnormal . MPV (test code = 10.1 fL 9.5-12.9 88714-9) IPF % (test code = 1.2 % 1.3-7.7 L Platelet count 7148275421) measured by fluorescence method. NRBC/100 WBC (test See_Comment [Automat ed code = 0493958551) message] The system which generated this result transmitted reference range : 0.0 - 10.0 /100 WBCs. The refer ence range was not u sed to interpret th is result as normal/abnormal . NRBC x10^3 (test code <0.01 See_Comment [Auto mated = 8370449170) message] The s ystem which generated this result transmitted reference range : 10*3/?L. The reference range was not used to interpret this result as normal/abnormal . GRAN MAT (NEUT) % 54.7 % (test code = 770-8) IMM GRAN % (test code 0.40 % = 6347140099) LYMPH % (test code = 33.1 % 736-9) MONO % (test code = 6.9 % 5905-5) EOS % (test code = 4.4 % 713-8) BASO % (test code = 0.5 % 706-2) GRAN MAT x10^3(ANC) 3.09 10*3/uL 1.88-7.09 (test code = 3777085450) IMM GRAN x10^3 (test <0.03 0.00-0.06 code = 1636534615) LYMPH x10^3 (test code 1.87 10*3/uL 1.32-3.29 = 731-0) MONO x10^3 (test code 0.39 10*3/uL 0.33-0.92 = 742-7) EOS x10^3 (test code = 0.25 10*3/uL 0.03-0.39 711-2) BASO x10^3 (test code 0.03 10*3/uL 0.01-0.07 = 704-7) POLYCHROMASIA (test 2+ See_Comment [Automa janine code = 00542-2) message] The system which generated this result transmitted reference range : 2+. The referen ce range was not u sed to interpret th is result as normal/abnormal . SPHEROCYTES (test code 1+ A = 802-9) PLT ESTIMATE (test Decreased Normal A code = 9317-9) Lab Interpretation Abnormal (test code = 13165-6) [facility]Magnesium [id number] 13:23:21 Test Item Value Reference Range Interpretation Comments MAGNESIUM (test code = 0041735194) 1.7 mg/dL 1.7-2.4 Lab Interpretation (test code = Normal 31945-7) [facility]. METABOLIC PANEL (25869)2021-11-07 13:23:01 Test Item Value Reference Range Interpretation Comments NA (test code = 139 mmol/L 135-145 4069497332) K (test code = 4.0 mmol/L 3.5-5.0 4437816813) CL (test code = 109 mmol/L 98-108 H 6646819227) CO2 TOTAL (test code = 27 mmol/L 23-31 2989274171) AGAP (test code = 2-16 7989422433) BUN (test code = 7 mg/dL 7-23 8522869780) GLUCOSE (test code = 105 mg/dL 70-110 8300759109) CREATININE (test code = 0.69 mg/dL 0.50-1.04 2169854094) TOTAL BILI (test code = 0.5 mg/dL 0.1-1.6 1776642858) CALCIUM (test code = 9.7 mg/dL 8.6-10.6 9311308528) T PROTEIN (test code = 6.0 g/dL 6.3-8.2 L 9941611468) ALBUMIN (test code = 3.3 g/dL 3.5-5.0 L 5262039988) ALK PHOS (test code = 144 U/L 34-122 H 5850266782) ALTv (test code = 13 U/L 5-35 2-6) AST(SGOT) (test code = 21 U/L 13-40 9249353139) eGFR (test code = mL/min/1.73m2 0195396496) JEAN-PIERRE (test code = JEAN-PIERRE) Association of [...] tests). Lab Interpretation Abnormal (test code = 56173-1) [facility]Phosphorus Bbrxp0752-86-58 13:22:41 Test Item Value Reference Range Interpretation Comments PHOSPHORUS (test code = 4903814298) 2.0 mg/dL 2.5-5.0 L Lab Interpretation (test code = Abnormal 42145-3) [facility]POCT GLUCOSE (AUTOMATED)2021-11-07 08:20:04 Test Item Value Reference Range Interpretation Comments POCT GLU (test code = 6305996832) 103 mg/dL 70-110 Lab Interpretation (test code = Normal 63370-2) [facility]ervilleFERRITIN SUYBC3378-74-01 03:00:42 Test Item Value Reference Range Interpretation Comments FERRITIN (test code = 12.4 ng/mL 11.0-264.0 7301714815) JEAN-PIERRE (test code = JEAN-PIERRE) Biotin has been reported to cause a negative bias, interpret results relative to patient's use of biotin. Lab Interpretation (test Normal code = 65752-4) [facility]ervilleTHYROID STIMULATING [id number] 02:56:21 Test Item Value Reference Range Interpretation Comments TSH (test code = See_Comment [Automated message] 7722679252) The system [employer] generated this result transmitted ref erence range: 0.45 - 4 .70 mIU/L. The refe rence range was not u sed to interpret this result as normal/abnor mal. Lab Interpretation (test Normal code = 89507-1) [facility]ervilleGLYCOSYLATED HEMOGLOBIN (A1C)2021-11-07 02:29:47 Test Item Value Reference Range Interpretation Comments HGB A1C (test code = 5.1 % 4.0-5.7 4548-4) JEAN-PIERRE (test code = JEAN-PIERRE) Reference RangesNormal: <5.7%Prediabetes: 5.7 - 6.4%Diabetes: > 6.5% Lab Interpretation (test Normal code = 98093-0) [facility]COMP. Metabolic Panel (57966)2021-11-06 20:57:43 Test Item Value Reference Range Interpretation Comments NA (test code = 140 mmol/L 135-145 4597159868) K (test code = 4.0 mmol/L 3.5-5.0 8104065052) CL (test code = 106 mmol/L 98-108 0386970184) CO2 TOTAL (test code = 31 mmol/L 23-31 2056225659) AGAP (test code = 2-16 0624532911) BUN (test code = 8 mg/dL 7-23 8593960787) GLUCOSE (test code = 117 mg/dL 70-110 H 2266010795) CREATININE (test code = 0.83 mg/dL 0.50-1.04 6508798393) TOTAL BILI (test code = 0.5 mg/dL 0.1-1.7 8232660729) CALCIUM (test code = 10.0 mg/dL 8.6-10.6 9048917870) T PROTEIN (test code = 5.8 g/dL 6.3-8.2 L 5038555173) ALBUMIN (test code = 3.3 g/dL 3.5-5.0 L 5984260833) ALK PHOS (test code = 141 U/L 34-122 H 5640358819) ALTv (test code = 13 U/L 5-35 1742-6) AST(SGOT) (test code = 21 U/L 13-40 8348911856) eGFR (test code = mL/min/1.73m2 3547649590) JEAN-PIERRE (test code = JEAN-PIERRE) Association of [...] tests). Lab Interpretation Abnormal (test code = 78157-6) [facility] with [id number] 20:46:46 Test Item Value Reference Range Interpretation Comments WBC (test code = See_Comment [Automated 4757-2) message] The sy stem which generated this result transmitted reference range : 4.30 - 11.10 10*3/?L. The reference range was not used to interpret this result as normal/abnormal . RBC (test code = See_Comment L [Automated 501-8) message] The sy stem which generated this [...] (test code = 59.1 fL 39.0-49.9 H 46693-4) RDW-CV (test code = 17.6 % 12.0-15.5 H 788-0) PLT (test code = See_Comment L [Automated 777-3) message] The sy stem which generated this result transmitted reference range : 166 - 358 10*3/ ?L. The reference r bharti was not used to interpret this result as normal/abnormal . MPV (test code = 9.2 fL 9.5-12.9 L 45381-6) NRBC/100 WBC (test See_Comment [Automat ed code = 9923936368) message] The system which generated this result transmitted reference range : 0.0 - 10.0 /100 WBCs. The refer ence range was not u sed to interpret th is result as normal/abnormal . NRBC x10^3 (test code <0.01 See_Comment [Auto mated = 0077519789) message] The s ystem which generated this result transmitted reference range : 10*3/?L. The reference range was not used to interpret this result as normal/abnormal . GRAN MAT (NEUT) % 55.4 % (test code = 770-8) IMM GRAN % (test code 0.60 % = 8632089625) LYMPH % (test code = 32.5 % 736-9) MONO % (test code = 7.2 % 5905-5) EOS % (test code = 3.9 % 713-8) BASO % (test code = 0.4 % 706-2) GRAN MAT x10^3(ANC) 2.87 10*3/uL 1.88-7.09 (test code = 4019073395) IMM GRAN x10^3 (test 0.03 10*3/uL 0.00-0.06 code = 2752150584) LYMPH x10^3 (test code 1.68 10*3/uL 1.32-3.29 = 731-0) MONO x10^3 (test code 0.37 10*3/uL 0.33-0.92 = 742-7) EOS x10^3 (test code = 0.20 10*3/uL 0.03-0.39 711-2) BASO x10^3 (test code <0.03 0.01-0.07 = 704-7) Lab Interpretation Abnormal (test code = 08530-3) [facility]ervilleLactic Acid Whole [id number] 20:31:53 Test Item Value Reference Range Interpretation Comments LACTIC ACID (test code = 1.59 mmol/L 0.50-2.20 6234025066) Lab Interpretation (test code = Normal 28987-7) [facility]U] XRAY KNEE 1 OR 2 VWS RIGHT [id number] 12:47:00Images acquired, not reported on this accession number.[facility][U] XRAY ANKLE MIN 3 VWS RIGHT [id number] 12:47:00Images acquired, not reported on this accession number.[facility][U] XRAY FEMUR 2 VWS LEFT [id number] 2018-11-13 11:56:00Images acquired, not reported on this accession number.[facility][U] XRAY FEMUR 2 VWS LEFT [id number] 10:54:00Images acquired, not reported on this accession number.[facility] WxgqvwtmqcBLUJGKFYMC9208-12-11 12:36:00 Test Item Value Reference Range Interpretation Comments MPV (test code = MPV) 7.4 7.4-10.4 [facility]PeuatcbGQCGPESXLE7737-37-08 12:36:00 Test Item Value Reference Range Interpretation Comments Platelet (test code = Platelet) 138 133-450 [facility] HospitalYoendykHZFJMIZFJG2820-12-24 12:36:00 Test Item Value Reference Range Interpretation Comments RDW (test code = RDW) 15.6 11.5-14.5 [facility] HospitalVxttoydLVWTQRPMNW6411-10-73 12:36:00 Test Item Value Reference Range Interpretation Comments WBC (test code = WBC) 4.0 3.7-10.4 [facility] HospitalRjifbkfMNAALMVZWT8388-89-46 12:36:00 Test Item Value Reference Range Interpretation Comments MCHC (test code = MCHC) 33.4 32.0-36.0 [facility] HospitalDbyquhnAJSUNLBXEG2183-45-88 12:36:00 Test Item Value Reference Range Interpretation Comments Hgb (test code = Hgb) 7.8 12.0-16.0 [facility] HospitalTndxizwWPYXMCTLJX6361-75-42 12:36:00 Test Item Value Reference Range Interpretation Comments MCH (test code = MCH) 33.4 pg 27.0-31.0 [facility] HospitalDamrowsMZFANHZSBM8119-24-59 12:36:00 Test Item Value Reference Range Interpretation Comments RBC (test code = RBC) 2.33 4.20-5.40 [facility] HospitalTwxvsjfZUZSLAACZD9662-11-73 12:36:00 Test Item Value Reference Range Interpretation Comments Hct (test code = Hct) 23.2 36.0-48.0 [place] 551958-12-27 12:36:00 Test Item Value Reference Range Interpretation Comments MCV (test code = MCV) 99.9 80.0-98.0 [facility] HospitalGdikvdzECSHZMCILG4251-85-79 12:36:00 Test Item Value Reference Range Interpretation Comments Lymphocytes # (test code = Lymphocytes 1.6 1.0-5.5 #) [facility] HospitalPloopejTHOVGDZQQJ7475-34-76 12:36:00 Test Item Value Reference Range Interpretation Comments Segs (test code = Segs) 44.5 45.0-75.0 [facility] HospitalOilysewIBNYWPAHJR4094-13-23 12:36:00 Test Item Value Reference Range Interpretation Comments Lymphocytes (test code = Lymphocytes) 40.8 20.0-40.0 [facility] HospitalBuwaxiyHSMFZYFYUF7569-92-34 12:36:00 Test Item Value Reference Range Interpretation Comments Monocytes # (test code 0.3 See_Comment [Aut omated message] The = Monocytes #) system which generated this result tra nsmitted reference range : <=0.8. The reference r bharti was not used to int erpret this result as normal/abnormal . [facility] HospitalXpolqkvGIOVLUNIZD4005-79-93 12:36:00 Test Item Value Reference Range Interpretation Comments Eosinophils # (test code 0.3 See_Comment [A utomated message] The = Eosinophils #) system whic h generated this result tra nsmitted reference range : <=0.5. The reference r bharti was not used to int erpret this result as normal/abnormal . [facility] HospitalKdkkkrgTELVFHGPTF9282-76-32 12:36:00 Test Item Value Reference Range Interpretation Comments Neutrophils # (test code = Neutrophils 1.8 1.5-8.1 #) [facility] HospitalYupgungZJWASKNNLK9431-08-81 12:36:00 Test Item Value Reference Range Interpretation Comments Monocytes (test code = Monocytes) 7.4 2.0-12.0 [facility] HospitalEhyoelvIVFMHTMLEX8417-49-53 12:36:00 Test Item Value Reference Range Interpretation Comments Eosinophils (test code = 6.7 See_Comment [A utomated message] The Eosinophils) system which ge nerated this result tra nsmitted reference range : <=4.0. The reference r bharti was not used to int erpret this result as normal/abnormal . [facility] HospitalYlagzvmZGACJYWTSD2776-92-73 12:36:00 Test Item Value Reference Range Interpretation Comments Basophils (test code = 0.6 See_Comment [Aut omated message] The Basophils) system which ge nerated this result tra nsmitted reference range : <=1.0. The reference r bharti was not used to int erpret this result as normal/abnormal . [facility]2018-12-26 11:28:00 Test Item Value Reference Range Interpretation Comments Bili Indirect Unable to See_Comment [Automated (test code = Bili Calculate message] T he system Indirect) which generated this result transmitted reference range : <=1.0. The reference range was not used to interpret this result as normal/abnormal . [facility]2018-12-26 11:28:00 Test Item Value Reference Range Interpretation Comments Bili Direct (test code no gt See_Comment [Aut omated message] The = Bili Direct) system which generated this result tra nsmitted reference range : <=0.3. The reference r bharti was not used to int erpret this result as zaida l/abnormal. [facility]2018-12-26 11:28:00 Test Item Value Reference Range Interpretation Comments Bili Total (test code = Bili Total) 0.3 0.2-1.3 [place] 381548-12-26 11:28:00 Test Item Value Reference Range Interpretation Comments AST (test code = AST) 22 See_Comment [Auto mated message] The system which ge nerated this result transmit janine reference range : <=37. The reference range was not used to interpr et this result as zaida l/abnormal. [facility]2018-12-26 11:28:00 Test Item Value Reference Range Interpretation Comments Alk Phos (test code = Alk Phos) 127 39-136 [facility]2018-12-26 11:28:00 Test Item Value Reference Range Interpretation Comments ALT (test code = ALT) 9 See_Comment [Auto mated message] The system which ge nerated this result transmit janine reference range : <=65. The reference range was not used to interpr et this result as zaida l/abnormal. [facility]2018-12-26 11:28:00 Test Item Value Reference Range Interpretation Comments A/G Ratio (test code = A/G Ratio) 0.9 1 0.7-1.6 [facility]2018-12-26 11:28:00 Test Item Value Reference Range Interpretation Comments Albumin Lvl (test code = Albumin Lvl) 2.4 3.5-5.0 [facility] TCASL3430-[facility]-23 11:28:00 Test Item Value Reference Range Interpretation Comments Globulin (test code = Globulin) 2.7 2.7-4.2 [facility]2018-12-26 11:28:00 Test Item Value Reference Range Interpretation Comments Total Protein (test code = Total 5.1 6.4-8.4 Protein) [facility]2018-12-26 11:28:00 Test Item Value Reference Range Interpretation Comments eGFR (test code = eGFR) 62 [facility]2018-12-26 11:28:00 Test Item Value Reference Range Interpretation Comments Chloride Lvl (test code = Chloride Lvl) 108 95-109 [facility] XMFAH1929-53-95 11:28:00 Test Item Value Reference Range Interpretation Comments CO2 (test code = CO2) 30 24-32 [facility]2018-12-26 11:28:00 Test Item Value Reference Range Interpretation Comments Sodium Lvl (test code = Sodium Lvl) 138 135-145 [facility]2018-12-26 11:28:00 Test Item Value Reference Range Interpretation Comments Potassium Lvl (test code = Potassium 4.6 3.5-5.1 Lvl) [facility]2018-12-26 11:28:00 Test Item Value Reference Range Interpretation Comments Creatinine Lvl (test code = Creatinine 0.91 0.50-1.40 Lvl) [facility]2018-12-26 11:28:00 Test Item Value Reference Range Interpretation Comments Calcium Lvl (test code = Calcium Lvl) 9.7 8.5-10.5 [facility]2018-12-26 11:28:00 Test Item Value Reference Range Interpretation Comments AGAP (test code = AGAP) 4.6 10.0-20.0 [facility]2018-12-26 11:28:00 Test Item Value Reference Range Interpretation Comments BUN (test code = BUN) 16 7-22 [facility]2018-12-26 11:28:00 Test Item Value Reference Range Interpretation Comments Glucose Lvl (test code = Glucose Lvl) 85 70-99 [facility]2018-12-26 11:28:00 Test Item Value Reference Range Interpretation Comments Magnesium Lvl (test code = Magnesium 2.0 1.8-2.4 Lvl) [facility] HospitalYkmrabxTKTGKFECBO2215-95-61 11:28:00 Test Item Value Reference Range Interpretation Comments MPV (test code = MPV) 8.6 7.4-10.4 [facility] HospitalCdnpmjlNDZTDQFEMM9503-50-29 11:28:00 Test Item Value Reference Range Interpretation Comments Platelet (test code = Platelet) 121 133-450 [facility] HospitalQjjiuxsBFQCIJHXCO6594-37-30 11:28:00 Test Item Value Reference Range Interpretation Comments MCHC (test code = MCHC) 33.1 32.0-36.0 [facility] HospitalNptidtsBVWNVVEOVU8077-95-95 11:28:00 Test Item Value Reference Range Interpretation Comments RDW (test code = RDW) 15.5 11.5-14.5 [facility] HospitalTsfvwxmPICHQOQWEF6057-82-54 11:28:00 Test Item Value Reference Range Interpretation Comments MCV (test code = MCV) 99.5 80.0-98.0 [facility] HospitalJkqxefzFIKYAMHYNG7708-14-68 11:28:00 Test Item Value Reference Range Interpretation Comments MCH (test code = MCH) 32.9 pg 27.0-31.[address]12-26 11:28:00 Test Item Value Reference Range Interpretation Comments Hct (test code = Hct) 22.8 36.0-48.0 [facility] HospitalUikzhvtTYDBIBMHBI0082-84-95 11:28:00 Test Item Value Reference Range Interpretation Comments Hgb (test code = Hgb) 7.6 12.0-16.0 [facility] HospitalUoytzdaWDOPWJSWUC0220-20-26 11:28:00 Test Item Value Reference Range Interpretation Comments RBC (test code = RBC) 2.30 4.20-5.40 [place] 551958-12-26 11:28:00 Test Item Value Reference Range Interpretation Comments WBC (test code = WBC) 4.9 3.7-10.4 [facility] HospitalRktkmxsMYMPVMHBCY5597-58-77 11:28:00 Test Item Value Reference Range Interpretation Comments Lymphocytes # (test code = Lymphocytes 1.5 1.0-5.5 #) [facility] HospitalYkbiitiBTMPVMPEMS8766-56-79 11:28:00 Test Item Value Reference Range Interpretation Comments Eosinophils # (test code 0.2 See_Comment [A utomated message] The = Eosinophils #) system whic h generated this result tra nsmitted reference range : <=0.5. The reference r bharti was not used to int erpret this result as normal/abnormal . [facility] HospitalZqadghpHXHIFZIBRM6812-27-94 11:28:00 Test Item Value Reference Range Interpretation Comments Monocytes # (test code 0.3 See_Comment [Aut omated message] The = Monocytes #) system which generated this result tra nsmitted reference range : <=0.8. The reference r bharti was not used to int erpret this result as normal/abnormal . [facility] HospitalCybqtzqUMZNRJPRDY1183-90-12 11:28:00 Test Item Value Reference Range Interpretation Comments Basophils (test code = 0.4 See_Comment [Aut omated message] The Basophils) system which ge nerated this result tra nsmitted reference range : <=1.0. The reference r bharti was not used to int erpret this result as normal/abnormal . [place] 551958-12-26 11:28:00 Test Item Value Reference Range Interpretation Comments Neutrophils # (test code = Neutrophils 2.8 1.5-8.1 #) [facility] HospitalGrrynspRAEIEDOYKN9474-35-33 11:28:00 Test Item Value Reference Range Interpretation Comments Lymphocytes (test code = Lymphocytes) 31.2 20.0-40.0 [facility] HospitalBsohpazHZSLTDZYZG3818-19-00 11:28:00 Test Item Value Reference Range Interpretation Comments Monocytes (test code = Monocytes) 6.9 2.0-12.0 [facility] HospitalKeawfjzVVKTUOFJFS3031-31-22 11:28:00 Test Item Value Reference Range Interpretation Comments Segs (test code = Segs) 58.3 45.0-75.0 [facility] HospitalVvqhbrsOWHAKVSBWN0893-03-53 11:28:00 Test Item Value Reference Range Interpretation Comments Eosinophils (test code = 3.2 See_Comment [A utomated message] The Eosinophils) system which ge nerated this result tra nsmitted reference range : <=4.0. The reference r bharti was not used to int erpret this result as normal/abnormal . [facility]2018-12-25 11:48:00 Test Item Value Reference Range Interpretation Comments Magnesium Lvl (test code = Magnesium 2.2 1.8-2.4 Lvl) [facility]XqxberdOAZUQDGRCNHQ2149-18-06 11:48:00 Test Item Value Reference Range Interpretation Comments Potassium Lvl (test code = Potassium 5.4 3.5-5.1 Lvl) [facility] HospitalDfhoamdMLVXUWILEXHX3100-23-62 11:48:00 Test Item Value Reference Range Interpretation Comments Chloride Lvl (test code = Chloride Lvl) 111 95-109 [facility] HospitalQypjvisHQMEMAEXZJIM6910-56-95 11:48:00 Test Item Value Reference Range Interpretation Comments CO2 (test code = CO2) 27 24-32 [facility] HospitalOvrbacyKNLBSXVIVKTI0706-97-27 11:48:00 Test Item Value Reference Range Interpretation Comments Calcium Lvl (test code = Calcium Lvl) 9.2 8.5-10.5 [facility] HospitalZjohedtYEVBFUOUSJMJ9520-31-72 11:48:00 Test Item Value Reference Range Interpretation Comments AGAP (test code = AGAP) 9.4 10.0-20.0 [facility]RtbdozhTSXQOVJYFWEO2987-08-39 11:48:00 Test Item Value Reference Range Interpretation Comments eGFR (test code = eGFR) 73 [facility] HospitalKyxhxxpFOXRSHIVLDLD9041-72-03 11:48:00 Test Item Value Reference Range Interpretation Comments Creatinine Lvl (test code = Creatinine 0.80 0.50-1.40 Lvl) [facility] HospitalNvrqhxtAYYCOCEPYUBU6907-32-47 11:48:00 Test Item Value Reference Range Interpretation Comments Glucose Lvl (test code = Glucose Lvl) 133 70-99 [facility] HospitalNmyuhzmIDYKYWJHZYHS5310-43-40 11:48:00 Test Item Value Reference Range Interpretation Comments BUN (test code = BUN) 14 7-22 [facility] HospitalZpdntymKWLEAKLZBZWF0753-80-25 11:48:00 Test Item Value Reference Range Interpretation Comments Sodium Lvl (test code = Sodium Lvl) 142 135-145 [facility]2018-12-25 08:48:00 Test Item Value Reference Range Interpretation Comments Magnesium Lvl (test code = Magnesium 2.2 1.8-2.4 Lvl) [facility]XyypjkyPRPNSNIGNR7250-47-43 08:48:00 Test Item Value Reference Range Interpretation Comments Hgb (test code = Hgb) 8.1 12.0-16.0 [facility] HospitalDwhrxflZMLWWZZCYE2445-50-06 08:48:00 Test Item Value Reference Range Interpretation Comments Hct (test code = Hct) 24.1 36.0-48.0 [facility] HospitalPrnuhkfJVNCTUJBCI2818-61-07 08:48:00 Test Item Value Reference Range Interpretation Comments RBC (test code = RBC) 2.45 4.20-5.40 [facility] HospitalOaqanvvGDIXSDGMXH8270-69-74 08:48:00 Test Item Value Reference Range Interpretation Comments WBC (test code = WBC) 3.2 3.7-10.4 [facility] H[id number] 08:48:00 Test Item Value Reference Range Interpretation Comments RDW (test code = RDW) 15.9 11.5-14.5 [facility] HospitalQzpowsjMGHKPCSOMG7876-43-80 08:48:00 Test Item Value Reference Range Interpretation Comments Platelet (test code = Platelet) 128 133-450 [facility] HospitalAoqtilsHESMQEZYDR8994-90-80 08:48:00 Test Item Value Reference Range Interpretation Comments MCHC (test code = MCHC) 33.5 32.0-36.0 [facility] HospitalHypmnmaJXLLFSEZMM1056-59-19 08:48:00 Test Item Value Reference Range Interpretation Comments MCV (test code = MCV) 98.3 80.0-98.0 [facility] HospitalKhkedjdTKHZKBMGMV4986-13-28 08:48:00 Test Item Value Reference Range Interpretation Comments MCH (test code = MCH) 33.0 pg 27.0-31.0 [facility] HospitalKewpmtcIDYZHFJYUI1505-39-63 08:48:00 Test Item Value Reference Range Interpretation Comments MPV (test code = MPV) 8.5 7.4-10.4 [facility] HospitalVqhvsrcPIMMTEZXLO9847-61-79 08:48:00 Test Item Value Reference Range Interpretation Comments Monocytes # (test code 0.1 See_Comment [Aut omated message] The = Monocytes #) system which generated this result tra nsmitted reference range : <=0.8. The reference r bharti was not used to int erpret this result as normal/abnormal . [facility] HospitalHpeasqsBBMEGHQZYW9618-93-10 08:48:00 Test Item Value Reference Range Interpretation Comments Segs (test code = Segs) 84.0 45.0-75.0 [facility] HospitalQohpfooSJHPWDCPOY0379-60-78 08:48:00 Test Item Value Reference Range Interpretation Comments Monocytes (test code = Monocytes) 3.2 2.0-12.0 [facility] HospitalOvectufCGPEASEOUS1691-20-67 08:48:00 Test Item Value Reference Range Interpretation Comments Neutrophils # (test code = Neutrophils 2.7 1.5-8.1 #) [facility] HospitalSjidtrbAICAPKIEGM1045-12-54 08:48:00 Test Item Value Reference Range Interpretation Comments Lymphocytes # (test code = Lymphocytes 0.4 1.0-5.5 #) [facility] HospitalYoaomqoBNIBXPJSKQ7484-50-00 08:48:00 Test Item Value Reference Range Interpretation Comments Basophils (test code = 0.2 See_Comment [Aut omated message] The Basophils) system which ge nerated this result tra nsmitted reference range : <=1.0. The reference r bharti was not used to int erpret this result as normal/abnormal . [facility] HospitalMsdkxcnJBRVILWLJN1126-43-82 08:48:00 Test Item Value Reference Range Interpretation Comments Lymphocytes (test code = Lymphocytes) 12.6 20.0-40.0 [facility]2018-12-25 00:52:00 Test Item Value Reference Range Interpretation Comments % Satur Fe (test code = % Satur Fe) 83 12-57 [facility]2018-12-25 00:52:00 Test Item Value Reference Range Interpretation Comments UIBC (test code = UIBC) 30 110-370 [facility]2018-12-25 00:52:00 Test Item Value Reference Range Interpretation Comments TIBC (test code = TIBC) 175 228-428 [facility]2018-12-25 00:52:00 Test Item Value Reference Range Interpretation Comments Iron (test code = Iron) 145 30-160 [facility]2018-12-25 00:52:00 Test Item Value Reference Range Interpretation Comments Folate Lvl (test code = Folate Lvl) 3.9 [facility]2018-12-25 00:52:00 Test Item Value Reference Range Interpretation Comments Ferritin Lvl (test code = Ferritin Lvl) 130 5-204 [facility]2018-12-25 00:52:00 Test Item Value Reference Range Interpretation Comments Vitamin B12 Lvl (test code = Vitamin 3774 044-1153 B12 Lvl) [facility]YbyxjjqFVFASWXZRC8481-58-09 00:52:00 Test Item Value Reference Range Interpretation Comments PB Smear Path Peripheral blood smear (test code = PB examination: Macrocytic Smear Path) anemia with mild anisocytosis. No increase in schistocytes. Unremarkable WBC morphology. Mild thrombocytopenia with presence of occasional large forms. CPT: 15097 [facility] HospitalMkdcaenHWXDNDCGHB9344-50-09 00:52:00 Test Item Value Reference Range Interpretation Comments Hep C Ab (test code = Negative *NA*(09/24/18 Hep C Ab) 6:52 PM) [facility] HospitalLtdtleoDBLICTGUCR6154-52-63 00:52:00 Test Item Value Reference Range Interpretation Comments HIV Ag/Ab 4th Gen Negative *NA*(09/24/18 (test code = HIV 6:52 PM) Ag/Ab 4th Gen) [facility] [id number] 17:06:00 Test Item Value Reference Range Interpretation Comments RBC product (test code Product available = RBC product) (09/24/18 11:06 AM) [facility] HospitalAnalyze Re [id number] 07:18:00 Test Item Value Reference Range Interpretation Comments eGFR (test code = eGFR) 43 [facility] [id number] 07:18:00 Test Item Value Reference Range Interpretation Comments Chloride Lvl (test code = Chloride Lvl) 108 95-109 [facility]2018-12-24 07:18:00 Test Item Value Reference Range Interpretation Comments CO2 (test code = CO2) 25 24-32 [facility]2018-12-24 07:18:00 Test Item Value Reference Range Interpretation Comments Potassium Lvl (test code = Potassium 4.7 3.5-5.1 Lvl) [facility]2018-12-24 07:18:00 Test Item Value Reference Range Interpretation Comments Sodium Lvl (test code = Sodium Lvl) 141 135-145 [facility]2018-12-24 07:18:00 Test Item Value Reference Range Interpretation Comments AGAP (test code = AGAP) 12.7 10.0-20.0 [facility]2018-12-24 07:18:00 Test Item Value Reference Range Interpretation Comments Calcium Lvl (test code = Calcium Lvl) 9.3 8.5-10.5 [facility]2018-12-24 07:18:00 Test Item Value Reference Range Interpretation Comments Creatinine Lvl (test code = Creatinine 1.24 0.50-1.40 Lvl) [facility]2018-12-24 07:18:00 Test Item Value Reference Range Interpretation Comments Glucose Lvl (test code = Glucose Lvl) 96 70-99 [facility]2018-12-24 07:18:00 Test Item Value Reference Range Interpretation Comments BUN (test code = BUN) 18 7-22 [facility]2018-12-24 07:18:00 Test Item Value Reference Range Interpretation Comments Phosphorus (test code = Phosphorus) 2.7 2.5-4.5 [facility]2018-12-23 23:53:00 Test Item Value Reference Range Interpretation Comments Lactic Acid Lvl (test code = Lactic 0.7 0.5-2.2 Acid Lvl) [facility]2018-12-23 09:13:00 Test Item Value Reference Range Interpretation Comments Folate Lvl (test code = Folate Lvl) 4.0 [facility]2018-12-23 09:13:00 Test Item Value Reference Range Interpretation Comments Vitamin B12 Lvl (test code = Vitamin 1521 457-9176 B12 Lvl) [facility] HospitalCARDIAC [id number] 09:13:00 Test Item Value Reference Range Interpretation Comments Troponin-I (test code no gt See_Comment [Auto mated message] The = Troponin-I) system which g enerated this result transmit janine reference range : <=0.40. The reference r bharti was not used to interpr et this result as zaida l/abnormal. [facility] [employer] [id number] 09:13:00 Test Item Value Reference Range Interpretation Comments Phosphorus (test code = Phosphorus) 3.1 2.5-4.5 [facility] [employer] [id number] 09:13:00 Test Item Value Reference Range Interpretation Comments Vitamin D, 25-OH, Total (test code = 9.3 30.0-100.0 Vitamin D, 25-OH, Total) [facility] JeannieTAMICIN:SUSC:PT:ISOLATE:ORDQN:[id number] 20:17:00 Test Item Value Reference Range Interpretation Comments Culture: Urine (test 50,000 - 100,000 CFU/mL code = Culture: Proteus mirabilis ESBL , Urine) Multi-drug Resistant Organism [facility] HospitalTanvirMICIN:SUSC:PT:ISOLATE:ORDQN:[id number] 20:17:00 Test Item Value Reference Range Interpretation Comments Proteus mirabilis ESBL Proteus mirabilis ESBL (test code = Proteus mirabilis ESBL) [facility] HospitalCARD[facility]AC [id number] 19:54:00 Test Item Value Reference Range Interpretation Comments Troponin-I (test code no gt See_Comment [Auto mated message] The = Troponin-I) system which g enerated this result transmit janine reference range : <=0.40. The reference r bharti was not used to interpr et this result as zaida l/abnormal. [facility] HospitalURINE AND [id number] 19:54:00 Test Item Value Reference Range Interpretation Comments UA Sq Epi (test code = UA Sq Moderate /LPF Epi) [facility] AND [id number] 19:54:00 Test Item Value Reference Range Interpretation Comments UA WBC (test code = UA WBC) 51-100 /HPF [facility] AND [id number] 19:54:00 Test Item Value Reference Range Interpretation Comments UA RBC (test code 11-20 /HPF See_Comment [Automate d message] The = UA RBC) system which ge nerated this result tra nsmitted reference range : <=2. The reference range was not used to interpr et this result as normal/abnormal . [facility] AND [id number] 19:54:00 Test Item Value Reference Range Interpretation Comments UA Tr Phos Sofiya (test code = UA Tr Many /HPF Phos Sofiya) [facility] AND [id number] 19:54:00 Test Item Value Reference Range Interpretation Comments UA Bacteria (test code = UA Many /HPF Bacteria) [facility] AND [id number] 19:54:00 Test Item Value Reference Range Interpretation Comments UA pH (test code = UA pH) 7.5 1 5.0-8.0 [facility] AND [id number] 19:54:00 Test Item Value Reference Range Interpretation Comments UA Glucose (test code = UA Glucose) 100 mg/dL [facility] AND [id number] 19:54:00 Test Item Value Reference Range Interpretation Comments UA Protein (test code = UA Protein) 100 mg/dL [facility] AND [id number] 19:54:00 Test Item Value Reference Range Interpretation Comments UA Spec Grav (test code = UA Spec 1.020 1 Grav) [facility] AND [id number] 19:54:00 Test Item Value Reference Range Interpretation Comments UA Turbidity (test code Cloudy *ABN*(09/22/18 = UA Turbidity) 1:54 PM) [facility] AND [id number] 19:54:00 Test Item Value Reference Range Interpretation Comments UA Color (test code = Yellow *NA*(09/22/18 UA Color) 1:54 PM) [facility] AND [id number] 19:54:00 Test Item Value Reference Range Interpretation Comments UA Leuk Est (test code Large *ABN*(09/22/18 = UA Leuk Est) 1:54 PM) [facility] AND [id number] 19:54:00 Test Item Value Reference Range Interpretation Comments UA Nitrite (test code Positive *ABN*(09/22/18 = UA Nitrite) 1:54 PM) [facility] AND [id number] 19:54:00 Test Item Value Reference Range Interpretation Comments UA Blood (test code = Moderate *ABN*(09/22/18 UA Blood) 1:54 PM) [facility] AND [id number] 19:54:00 Test Item Value Reference Range Interpretation Comments UA Urobilinogen (test code = UA 4.0 0.1-1.0 Urobilinogen) [facility] AND [id number] 19:54:00 Test Item Value Reference Range Interpretation Comments UA Ketones (test code Negative *NA*(09/22/18 = UA Ketones) 1:54 PM) [facility] AND [id number] 19:54:00 Test Item Value Reference Range Interpretation Comments UA Bili (test code = Small *ABN*(09/22/18 UA Bili) 1:54 PM) [facility] [id number] 08:34:00 Test Item Value Reference Range Interpretation Comments ABO/Rh (test code = ABO/Rh) O NEG [facility] HospitalJ[facility] [place] [facility] [id number] 08:34:00 Test Item Value Reference Range Interpretation Comments Antibody Scrn (test Negative (09/22/18 code = Antibody Scrn) 2:34 AM) [facility] HospitalOpnvrwuOFSEWJHHIM6640-12-12 08:34:00 Test Item Value Reference Range Interpretation Comments Eosinophils # (test code 0.1 See_Comment [A utomated message] The = Eosinophils #) system whic h generated this result tra nsmitted reference range : <=0.5. The reference r bharti was not used to int erpret this result as normal/abnormal . [facility] HospitalCyjoperVNHBZASFCD7958-89-06 08:34:00 Test Item Value Reference Range Interpretation Comments Macrocyte (test code = 1+ *ABN*(09/22/18 Macrocyte) 2:34 AM) [facility] H[id number] 08:34:00 Test Item Value Reference Range Interpretation Comments Eosinophils (test code = 1.1 See_Comment [A utomated message] The Eosinophils) system which ge nerated this result tra nsmitted reference range : <=4.0. The reference r bharti was not used to int erpret this result as normal/abnormal . [facility] HospitalCREATININE [id number] 17:53:00 Test Item Value Reference Range Interpretation Comments CREATININE CLEARANCE 47.2 mL/min 70.0-140.0 L ([facility]) (test code = 357) VOLUME, TOTAL ([facility]) 1050 ml (test code = 1457) CREATININE URINE 78.9 mg/dL ([facility]) (test code = 375) [id number] Linda Pitts MD ([facility]) (test code = (electronic signature) 5980) POCT-GLUCOSE [id number] 11:37:00 Test Item Value Reference Range Interpretation Comments POC-GLUCOSE METER 128 mg/dL 70-110 H TESTED AT [place] [address] ([facility]) (test code = [facility] 1538) [address] URINE [id number] 11:02:00 Test Item Value Reference Range Interpretation Comments CULTURE ([facility]) (test <10,000 col/mL skin code = 1095) jayshree POCT-GLUCOSE [id number] 06:28:00 Test Item Value Reference Range Interpretation Comments POC-GLUCOSE METER 101 mg/dL 70-110 TESTED AT [place] [address] ([facility]) (test code = [facility] 1538) [address] POCT-GLUCOSE [id number] 00:46:00 Test Item Value Reference Range Interpretation Comments POC-GLUCOSE METER 130 mg/dL 70-110 H TESTED AT [place] [address] ([facility]) (test code = [facility] 1538) [address] POCT-GLUCOSE [id number] 20:21:00 Test Item Value Reference Range Interpretation Comments POC-GLUCOSE METER 133 mg/dL 70-110 H TESTED AT [place] [address] ([facility]) (test code = [facility] 1538) [address] [id number] 18:44:00 Test Item Value Reference Range Interpretation Comments CREATININE ([facility]) 0.82 mg/dL 0.57-1.25 (test code = 358) EGFR ([facility]) (test 69 mL/min/1.73 ESTIMA JANINE GFR IS code = 1092) sq m NOT ACCURATE CREATININE CLEARANCE IN PREDICTING GLOMERULAR FILTRATION RATE . ESTIMATED GFR I S NOT APPLICABLE FOR DIALYSIS PATIEN TS. POCT-GLUCOSE [id number] 17:11:00 Test Item Value Reference Range Interpretation Comments POC-GLUCOSE METER 118 mg/dL 70-[address] [facility] 67[facility] ([facility]) (test code = [facility] 1538) [address] POCT-GLUCOSE [id number] 15:29:00 Test Item Value Reference Range Interpretation Comments POC-GLUCOSE METER 63 mg/dL 70-110 L Notified R Ravinder MD/TESTED AT ([facility]) (test code = [place] [address] [facility] 7703 0 POCT-GLUCOSE [id number] 15:03:00 Test Item Value Reference Range Interpretation Comments POC-GLUCOSE METER 51 mg/dL 70-110 L Notified R N MD/TESTED AT ([facility]) (test code = [place] [address] [facility]) [facility] 7703 0 POCT-GLUCOSE [id number] 11:28:00 Test Item Value Reference Range Interpretation Comments POC-GLUCOSE METER 75 mg/dL 70-110 TESTED AT [place] [id number] ([facility]) (test code = [facility] [address] 1538) CALCIUM, 24 HOUR [id number] 09:19:00 Test Item Value Reference Range Interpretation Comments VOLUME, TOTAL (BEAKER) (test 1050 ml code = 1457) CALCIUM URINE (BEAKER) (test 15.4 mg/dL code = 396) CALCIUM, 24HR URINE (BEAKER) 162 mg/24 Hr 50-300 (test code = 1520) VITAMIN D, 91-[id number] 07:18:00 Test Item Value Reference Range Interpretation Comments VITAMIN D 25-OH (BEAKER) (test code = < ng/mL 13.0-47.8 L 5704) CBC W/PLT COUNT & AUTO [id number] 07:04:00 Test Item Value Reference Range Interpretation [...] K/ L 0.00-0.20 (test code = 417) [facility]00[facility] [id number] 07:01:00 Test Item Value Reference Range Interpretation [...] 697) EGFR (BEAKER) (test 65 mL/min/1.73 ESTIMA JANINE GFR IS code = 1092) sq m NOT ACCURATE CREATININE CLEARANCE IN PREDICTING GLOMERULAR FILTRATION RATE . ESTIMATED GFR I S NOT APPLICABLE FOR DIALYSIS PATIEN TS. [id number] 06:57:00 Test Item Value Reference Range Interpretation Comments PHOSPHORUS (BEAKER) (test code = 3.0 mg/dL 2.3-4.7 604) [id number] 06:57:00 Test Item Value Reference Range Interpretation Comments MAGNESIUM (BEAKER) (test code = 2.2 mg/dL 1.6-2.6 627) [id number] 06:34:00 Test Item Value Reference Range Interpretation Comments ALBUMIN (BEAKER) (test code = 1145) 3.8 g/dL 3.5-5.0 POCT-GLUCOSE [id number] 06:32:00 Test Item Value Reference Range Interpretation Comments POC-GLUCOSE METER 104 mg/dL 70-110 TESTED AT [place] [address] (BEAKER) (test code = [facility] 1538) [address] POCT-GLUCOSE [id number] 23:41:00 Test Item Value Reference Range Interpretation Comments POC-GLUCOSE METER 108 mg/dL 70-110 TESTED AT [place] [address] ([facility]) (test code = [facility] 1538) [address] POCT-GLUCOSE [id number] 17:58:00 Test Item Value Reference Range Interpretation Comments POC-GLUCOSE METER 112 mg/dL 70-110 H TESTED AT [place] [address] ([facility]) [facility] = [facility] 1538[facility] [address] URINALYSIS W/ REFLEX URINE [id number] 16:02:00 Test Item Value Reference Range Interpretation [...] RBC UA (BEAKER) (test code = 519) 10 /HPF WBC UA (BEAKER) (test code = 520) 29 /HPF MUCUS (BEAKER) (test code = 1574) Few SQUAMOUS EPITHELIAL (BEAKER) (test 1 /HPF code = 516) HYALINE CASTS (BEAKER) (test code = 2 /LPF 514) SOURCE(BEAKER) (test code = 2795) POCT-GLUCOSE [id number] 12:49:00 Test Item Value Reference Range Interpretation Comments POC-GLUCOSE METER 79 mg/dL 70-[address] [facility] [address] (BEAKER) (test code = [place] [address] 1538) CBC W/PLT COUNT & AUTO [id number] 09:59:00 Test Item Value Reference Range Interpretation [...] (BEAKER) (test code = Normal 762) POCT-GLUCOSE [id number] 06:20:00 Test Item Value Reference Range Interpretation Comments POC-GLUCOSE METER 140 mg/dL 70-[address] [facility] [address] (BEAKER) (test code = [facility] [place] 1538) [address] [id number] 06:11:00 Test Item Value Reference Range Interpretation Comments ALBUMIN (BEAKER) 3.2 g/dL 3.5-5.0 L Specimen mo derately (test code = 1145) hemolyzed BASIC METABOLIC [id number] 06:00:00 Test Item Value Reference Range Interpretation [...] 358) GLUCOSE RANDOM 145 mg/dL 70-105 H (BEAKER) (test code = 652) CALCIUM (BEAKER) 11.6 mg/dL 8.4-10.2 H (test code = 697) EGFR (BEAKER) (test 63 mL/min/1.73 ESTIMA JANINE GFR IS code = 1092) sq m NOT ACCURATE CREATININE CLEARANCE IN PREDICTING GLOMERULAR FILTRATION RATE . ESTIMATED GFR I S NOT APPLICABLE FOR DIALYSIS PATIEN TS. [id number] 05:59:00 Test Item Value Reference Range Interpretation Comments PHOSPHORUS (BEAKER) (test code = 3.1 mg/dL 2.3-4.7 604) [id number] 05:59:00 Test Item Value Reference Range Interpretation Comments MAGNESIUM (BEAKER) (test code = 2.0 mg/dL 1.6-2.6 627) POCT-GLUCOSE [id number] 23:38:00 Test Item Value Reference Range Interpretation Comments POC-GLUCOSE METER 156 mg/dL 70-[address] [facility] [address] (BEAKER) (test code = [place] 1538) [address] POCT-GLUCOSE [id number] 18:18:00 Test Item Value Reference Range Interpretation Comments POC-GLUCOSE METER 110 mg/dL 70-[address] [facility] [address] (BEAKER) (test code = [facility] 1538) [address] POCT-GLUCOSE [id number] 11:44:00 Test Item Value Reference Range Interpretation Comments POC-GLUCOSE METER 79 mg/dL 70-[address] [facility] [address] (BEAKER) (test code = [place] [address] 1538) CBC W/PLT COUNT & AUTO [id number] 11:03:00 Test Item Value Reference Range Interpretation Comments WHITE BLOOD CELL COUNT (BEAKER) 13.9 K/ L 4.0-10.0 H (test code = 775) RED BLOOD CELL COUNT (BEAKER) 3.86 M/ L 4.00-5.00 L (test code = 761) HEMOGLOBIN (BEAKER) (test code = 12.4 GM/DL 12.0-15.0 410) HEMATOCRIT (BEAKER) (test code = 37.7 % 36.0-45.0 411) [...] (BEAKER) (test code = Normal 762) POCT-GLUCOSE [id number] 06:21:00 Test Item Value Reference Range Interpretation Comments POC-GLUCOSE METER 152 mg/dL 70-[address] [facility] [address] (BEAKER) (test code = [facility] 1538) [address] BASIC METABOLIC [id number] 06:04:00 Test Item Value Reference Range Interpretation [...] 697) EGFR (BEAKER) (test 66 mL/min/1.73 ESTIMA JANINE GFR IS code = 1092) sq m NOT ACCURATE CREATININE CLEARANCE IN PREDICTING GLOMERULAR FILTRATION RATE . ESTIMATED GFR I S NOT APPLICABLE FOR DIALYSIS PATIEN TS. [id number] 05:56:00 Test Item Value Reference Range Interpretation Comments PHOSPHORUS (BEAKER) (test code = 3.5 mg/dL 2.3-4.7 604) [id number] 05:56:00 Test Item Value Reference Range Interpretation Comments MAGNESIUM ([facility]) (test code = 1.9 mg/dL 1.6-2.6 627) POCT-GLUCOSE [id number] 23:51:00 Test Item Value Reference Range Interpretation Comments POC-GLUCOSE METER 168 mg/dL 70-110 H TESTED AT [place] [address] ([facility]) (test code = [facility] 1538) [address] POCT-GLUCOSE [id number] 18:34:00 Test Item Value Reference Range Interpretation Comments POC-GLUCOSE METER 80 mg/dL 70-110 TESTED AT [place] [address] ([facility]) (test code = [facility] [facility] [address] 1538) POCT-GLUCOSE [id number] 16:09:00 Test Item Value Reference Range Interpretation Comments POC-GLUCOSE METER 83 mg/dL 70-110 TESTED AT [place] [address] ([facility]) (test code = [facility] [address] 1538) POCT-GLUCOSE [id number] 16:09:00 Test Item Value Reference Range Interpretation Comments POC-GLUCOSE METER 41 mg/dL 70-110 L TESTED AT [place] [address] ([facility]) (test code = [facility] [address] 1538) POCT-GLUCOSE [id number] 15:20:00 Test Item Value Reference Range Interpretation Comments POC-GLUCOSE METER 44 mg/dL 70-110 L TESTED AT [place] [address] ([facility]) (test code = [facility] [address] 1538) POCT-GLUCOSE [id number] 08:27:00 Test Item Value Reference Range Interpretation Comments POC-GLUCOSE METER 114 mg/dL 70-110 H TESTED AT [place] [address] ([facility]) (test code = [facility] [place] 1538) [id number] POCT-GLUCOSE [id number] 08:27:00 Test Item Value Reference Range Interpretation Comments POC-GLUCOSE METER 35 mg/dL 70-110 LL TESTED AT [place] [address] ([facility]) (test code = [facility] [address] 1538) CBC W/PLT COUNT & AUTO [id number] 07:04:00 Test Item Value Reference Range Interpretation Comments WHITE BLOOD CELL COUNT ([facility]) 8.2 K/ L 4.0-10.0 (test code = 775) RED BLOOD CELL COUNT (BEAKER) 4.05 M/ L 4.00-5.00 (test code = 761) HEMOGLOBIN (BEAKER) (test code = 12.8 GM/DL 12.0-15.0 410) HEMATOCRIT (BEAKER) (test code = 39.2 % 36.0-45.0 411) MEAN CORPUSCULAR VOLUME (BEAKER) 97.0 fL 82.0-99.0 (test code = 753) MEAN CORPUSCULAR HEMOGLOBIN 31.7 pg 27.0-33.0 (BEAKER) (test code = 751) MEAN CORPUSCULAR HEMOGLOBIN CONC 32.7 GM/DL 32.0-36.0 (BEAKER) (test code = 752) [...] L 0.00-0.20 (test code = 417) 0.00POCT-GLUCOSE [id number] 06:20:00 Test Item Value Reference Range Interpretation Comments POC-GLUCOSE METER 62 mg/dL 70-110 L Notified R Ravinder COTO/TESTED AT (BEAKER) (test code = [facility] [address] 1539) [place] [address] BASIC METABOLIC [id number] 06:13:00 Test Item Value Reference Range Interpretation [...] 697) EGFR (BEAKER) (test 59 mL/min/1.73 ESTIMA JANINE GFR IS code = 1092) sq m NOT ACCURATE CREATININE CLEARANCE IN PREDICTING GLOMERULAR FILTRATION RATE . ESTIMATED GFR I S NOT APPLICABLE FOR DIALYSIS PATIEN TS. [id number] 06:10:00 Test Item Value Reference Range Interpretation Comments PHOSPHORUS (BEAKER) (test code = 3.5 mg/dL 2.3-4.7 604) [id number] 06:10:00 Test Item Value Reference Range Interpretation Comments MAGNESIUM (BEAKER) (test code = 2.2 mg/dL 1.6-2.6 627) PROTHROMBIN [id number] 06:05:00 Test Item Value Reference Range Interpretation Comments PROTIME (BEAKER) (test code = 15.5 seconds 11.7-14.7 H 759) INR (BEAKER) (test code = 370) 1.2 <=5.9 RECOMMENDED COUMADIN/WARFARIN INR THERAPY RANGESSTANDARD DOSE: 2.0 - 3.0 Includes: PROPHYLAXIS for venous thrombosis, systemic embolization; TREATMENT for venous thrombosis and/or pulmonary embolus.HIGH RISK: Target INR is 2.5-3.5 for patients with mechanical heart valves.POCT-GLUCOSE [id number] 23:58:00 Test Item Value Reference Range Interpretation Comments POC-GLUCOSE METER 108 mg/dL 70-110 TESTED AT [place] [address] ([facility]) (test code = [facility] 1538) [address] POCT-GLUCOSE [id number] 18:02:00 Test Item Value Reference Range Interpretation Comments POC-GLUCOSE METER 126 mg/dL 70-110 H TESTED AT [place] [address] ([facility]) (test code = [facility] 1538) [address] PTH, [id number] 14:50:00 Test Item Value Reference Range Interpretation Comments PARATHYROID HORMONE INTACT 274.9 pg/mL 8.5-72.5 H ([facility]) (test code = 577) Effective 08/19/2014: Reference Range ChangeNew: 8.5-72.5 Previous: 15.0-90.0 POCT-GLUCOSE [id number] 13:33:00 Test Item Value Reference Range Interpretation Comments POC-GLUCOSE METER 145 mg/dL 70-110 H TESTED AT [place] [address] ([facility]) (test code = [facility] 1538) [address] CBC W/PLT COUNT & AUTO [id number] 08:35:00 Test Item Value Reference Range Interpretation Comments WHITE BLOOD CELL COUNT (AKER) 10.2 K/ L 4.0-10.0 H (test code = 775) RED BLOOD CELL COUNT (AKER) 3.96 M/ L 4.00-5.00 L (test code = 761) HEMOGLOBIN (BEAKER) (test code = 12.8 GM/DL 12.0-15.0 410) HEMATOCRIT (BEAKER) (test code = 38.7 % 36.0-45.0 411) MEAN CORPUSCULAR VOLUME (BEAKER) 97.7 fL 82.0-99.0 (test code = 753) MEAN CORPUSCULAR HEMOGLOBIN 32.2 pg 27.0-33.0 (BEAKER) (test code = 751) MEAN CORPUSCULAR HEMOGLOBIN CONC 33.0 GM/DL 32.0-36.0 (AKER) (test code = 752) RED CELL DISTRIBUTION WIDTH 16.7 % 10.3-14.2 H (AKER) (test code = 412) PLATELET COUNT (BEAKER) [...] (BEAKER) (test code = 1351) BASIC METABOLIC [id number] 06:00:00 Test Item Value Reference Range Interpretation [...] 697) EGFR (BEAKER) (test 61 mL/min/1.73 ESTIMA JANINE GFR IS code = 1092) sq m NOT ACCURATE CREATININE CLEARANCE IN PREDICTING GLOMERULAR FILTRATION RATE . ESTIMATED GFR I S NOT APPLICABLE FOR DIALYSIS PATIEN TS. [id number] 05:59:00 Test Item Value Reference Range Interpretation Comments MAGNESIUM (BEAKER) 2.4 mg/dL 1.6-2.6 Specimen slightly (test code = 627) hemolyzed [id number] 05:59:00 Test Item Value Reference Range Interpretation Comments PHOSPHORUS (BEAKER) 3.1 mg/dL 2.3-4.7 Specimen slightly (test code = 604) hemolyzed POCT-GLUCOSE [id number] 05:32:00 Test Item Value Reference Range Interpretation Comments POC-GLUCOSE METER 114 mg/dL 70-110 H TESTED AT [place] [address] ([facility]) (test code = [facility] 1538) [address] POCT-GLUCOSE [id number] 00:02:00 Test Item Value Reference Range Interpretation Comments POC-GLUCOSE METER 106 mg/dL 70-110 TESTED AT [place] [address] ([facility]) (test code = [facility] [place] 1538) [address] POCT-GLUCOSE [id number] 18:28:00 Test Item Value Reference Range Interpretation Comments POC-GLUCOSE METER 150 mg/dL 70-110 H TESTED AT [place] [address] ([facility]) (test code = [facility] [place] 1538) [address] POCT-GLUCOSE [id number] 12:31:00 Test Item Value Reference Range Interpretation Comments POC-GLUCOSE METER 152 mg/dL 70-110 H TESTED AT [place] [address] ([facility]) (test code = [facility] [place] 1538) [address] POCT-GLUCOSE [id number] 05:41:00 Test Item Value Reference Range Interpretation Comments POC-GLUCOSE METER 120 mg/dL 70-110 H TESTED AT [place] [address] ([facility]) (test code = [facility] [place] 1538) [address] CBC W/PLT COUNT & AUTO [id number] 05:00:00 Test Item Value Reference Range Interpretation Comments WHITE BLOOD CELL COUNT (BEAKER) 8.8 K/ L 4.0-10.0 (test code = 775) RED BLOOD CELL COUNT (BEAKER) 3.76 M/ L 4.00-5.00 L (test code = 761) HEMOGLOBIN (BEAKER) (test code = 11.3 GM/DL 12.0-15.0 L 410) HEMATOCRIT (BEAKER) (test code = 35.7 % 36.0-45.0 L 411) MEAN CORPUSCULAR VOLUME (BEAKER) 95.1 fL 82.0-99.0 (test code = 753) [...] 0.00-0.20 (test code = 417) 0.00BASIC METABOLIC [id number] 04:58:00 Test Item Value Reference Range Interpretation [...] 697) EGFR (BEAKER) (test 60 mL/min/1.73 ESTIMA JANINE GFR IS code = 1092) sq m NOT ACCURATE CREATININE CLEARANCE IN PREDICTING GLOMERULAR FILTRATION RATE . ESTIMATED GFR I S NOT APPLICABLE FOR DIALYSIS PATIEN TS. [id number] 04:57:00 Test Item Value Reference Range Interpretation Comments MAGNESIUM (BEAKER) 2.5 mg/dL 1.6-2.6 Specimen slightly (test code = 627) hemolyzed [id number] 04:57:00 Test Item Value Reference Range Interpretation Comments PHOSPHORUS (BEAKER) 3.3 mg/dL 2.3-4.7 Specimen slightly (test code = 604) hemolyzed POCT-GLUCOSE [id number] 00:44:00 Test Item Value Reference Range Interpretation Comments POC-GLUCOSE METER 142 mg/dL 70-110 H [facility] (BEAKER) (test code = [facility] [place] 1538) [address] POCT-GLUCOSE [id number] 18:34:00 Test Item Value Reference Range Interpretation Comments POC-GLUCOSE METER 115 mg/dL 70-110 H TESTED AT [facility] 6720 (BEAKER) (test code = [facility] [place] 1538) [address] POCT-GLUCOSE [id number] 12:21:00 Test Item Value Reference Range Interpretation Comments POC-GLUCOSE METER 123 mg/dL 70-[address] [facility] 6720 (BEAKER) (test code = [facility] [place] 1538) [address] URINE [id number] 10:42:00 Test Item Value Reference Range Interpretation Comments CULTURE (BEAKER) (test code = 1095) No growth [id number] 06:53:00 Test Item Value Reference Range Interpretation Comments POTASSIUM (BEAKER) (test code = 3.6 meq/L 3.5-5.1 379) Check Serum Potassium level 2 hours after oral potassium replacement completed or 30 min after intravenous potassium replacement.[id number] 06:53:00 Test Item Value Reference Range Interpretation Comments MAGNESIUM (BEAKER) (test code = 2.7 mg/dL 1.6-2.6 H 627) Check Serum Potassium level 2 hours after oral potassium replacement completed or 30 min after intravenous potassium replacement.POCT-GLUCOSE [id number] 06:27:00 Test Item Value Reference Range Interpretation Comments POC-GLUCOSE METER 113 mg/dL 70-[address] [facility] 6720 (BEAKER) (test code = [facility] 1538) [address] BASIC METABOLIC [id number] 02:30:00 Test Item Value Reference Range Interpretation [...] 697) EGFR (BEAKER) (test 57 mL/min/1.73 ESTIMA JANINE GFR IS code = 1092) sq m NOT ACCURATE CREATININE CLEARANCE IN PREDICTING GLOMERULAR FILTRATION RATE . ESTIMATED GFR I S NOT APPLICABLE FOR DIALYSIS PATIEN TS. [id number] 02:29:00 Test Item Value Reference Range Interpretation Comments PHOSPHORUS (BEAKER) (test code = 3.5 mg/dL 2.3-4.7 604) [id number] 02:29:00 Test Item Value Reference Range Interpretation Comments MAGNESIUM (BEAKER) (test code = 2.2 mg/dL 1.6-2.6 627) [id number] 02:29:00 Test Item Value Reference Range Interpretation Comments SODIUM (BEAKER) (test code = 381) 139 meq/L 136-145 CBC W/PLT COUNT & AUTO [id number] 02:21:00 Test Item Value Reference Range Interpretation [...] L 0.00-0.20 (test code = 417) 0.00POCT-GLUCOSE [id number] 00:44:00 Test Item Value Reference Range Interpretation Comments POC-GLUCOSE METER 121 mg/dL 70-[address] [facility] 6720 (BEAKER) (test code = [facility] 1538) [address] [id number] 20:34:00 Test Item Value Reference Range Interpretation Comments SODIUM (BEAKER) (test code = 381) 138 meq/L 136-145 HEPATIC FUNCTION [id number] 20:34:00 Test Item Value Reference Range Interpretation [...] (test code = 15 U/L 6-55 347) [id number] 20:25:00 Test Item Value Reference Range Interpretation Comments AMMONIA (BEAKER) (test code = 348) 30 mol/L 18-72 POCT-GLUCOSE [id number] 19:58:00 Test Item Value Reference Range Interpretation Comments POC-GLUCOSE METER 125 mg/dL 70-[address] [facility] 67 ([facility]) (test code = [facility] [place] 1538) [address] [id number] 14:30:00 Test Item Value Reference Range Interpretation Comments RPR SCREEN (BEAKER) (test code = Nonreactive Nonreactive 420) [id number] 13:35:00 Test Item Value Reference Range Interpretation Comments SODIUM (BEAKER) (test code = 381) 136 meq/L 136-145 [id number] 13:23:00 Test Item Value Reference Range Interpretation Comments CORTISOL, TOTAL (BEAKER) (test 11.7 ug/dL 3.7-19.4 code = 2755) POCT-GLUCOSE [id number] 13:22:00 Test Item Value Reference Range Interpretation Comments POC-GLUCOSE METER 117 mg/dL 70-110 H TESTED AT [place] [address] ([facility]) (test code = [facility] 1538) [address] B-TYPE NATRIURETIC FACTOR (BNP)2016-12-26 11:55:00 Test Item Value Reference Range Interpretation Comments B-TYPE NATRIURETIC PEPTIDE (BEAKER) 115 pg/mL 0-100 H (test code = 700) [id number] 11:43:00 Test Item Value Reference Range Interpretation Comments MAGNESIUM (BEAKER) 2.5 mg/dL 1.6-2.6 Specimen slightly (test code = 627) hemolyzed OSMOLALITY, [id number] 04:32:00 Test Item Value Reference Range Interpretation Comments OSMOLALITY, SERUM (BEAKER) (test 303 mOsm/kg 275-295 H code = 615) LIPID [id number] 04:04:00 Test Item Value Reference Range Interpretation [...] Borderline 130-159 High 160-189 Very High >=190 FastingBASIC METABOLIC [id number] 04:03:00 Test Item Value Reference Range Interpretation [...] 697) EGFR (BEAKER) (test 57 mL/min/1.73 ESTIMA JANINE GFR IS code = 1092) sq m NOT ACCURATE CREATININE CLEARANCE IN PREDICTING GLOMERULAR FILTRATION RATE . ESTIMATED GFR I S NOT APPLICABLE FOR DIALYSIS PATIEN TS. [id number] 04:03:00 Test Item Value Reference Range Interpretation Comments PHOSPHORUS (BEAKER) (test code = 3.2 mg/dL 2.3-4.7 604) CBC W/PLT COUNT & AUTO [id number] 03:43:00 Test Item Value Reference Range Interpretation [...] K/ L 0.00-0.20 (test code = 417) [id number] 01:55:00 Test Item Value Reference Range Interpretation Comments POTASSIUM (BEAKER) (test code = 3.2 meq/L 3.5-5.1 L 379) [id number] 01:55:00 Test Item Value Reference Range Interpretation Comments MAGNESIUM (BEAKER) (test code = 1.7 mg/dL 1.6-2.6 627) TROPONIN [id number] 01:21:00 Test Item Value Reference Range Interpretation [...] acidosis, acute neurological disease, and persistent tachyarrhythmia.POCT-GLUCOSE [id number] 01:03:00 Test Item Value Reference Range Interpretation Comments POC-GLUCOSE METER 161 mg/dL 70-[address] [facility] 6720 ([facility]) (test code = [facility] 1538) [address] POCT-GLUCOSE [id number] 00:22:00 Test Item Value Reference Range Interpretation Comments POC-GLUCOSE METER 62 mg/dL 70-110 L Notified R Ravinder COTO/TESTED AT ([facility]) (test code = [facility] [address] 1538) [facility] [address] HEMOGLOBIN [id number] 22:44:00 Test Item Value Reference Range Interpretation Comments HEMOGLOBIN A1C ([facility]) (test code = 5.0 % 4.3-6.1 368) TSH/FREE T4 IF [id number] 21:14:00 Test Item Value Reference Range Interpretation Comments THYROID STIMULATING HORMONE 2.66 uIU/mL 0.35-4.94 ([facility]) (test code = 772) VITAMIN B12 AND [id number] 21:14:00 Test Item Value Reference Range Interpretation Comments VITAMIN B12 ([facility]) (test code = 325 pg/mL 213-816 774) FOLATE ([facility]) (test code = 362) 11.9 ng/mL >=7.0 Effective 08/19/2014: Folate Reference Range ChangeNew: >=7.0 Previous: >=5.4CBC W/PLT COUNT & AUTO [id number] 19:39:00 Test Item Value Reference Range Interpretation Comments WHITE BLOOD CELL COUNT ([facility]) 5.3 K/ L 4.0-10.0 (test code = 775) RED BLOOD CELL COUNT ([facility]) 3.72 M/ L 4.00-5.00 L (test code [...] L 0.00-0.20 (test code = 417) 0.00TROPONIN [id number] 19:31:00 Test Item Value Reference Range Interpretation [...] pg/mL 0-100 (test code = 700) LIPID [id number] 19:24:00 Test Item Value Reference Range Interpretation [...] 130-159 High 160-189 Very High >=190BASIC METABOLIC [id number] 19:24:00 Test Item Value Reference Range Interpretation [...] 697) EGFR (BEAKER) (test 68 mL/min/1.73 ESTIMA JANINE GFR IS code = 1092) sq m NOT ACCURATE CREATININE CLEARANCE IN PREDICTING GLOMERULAR FILTRATION RATE . ESTIMATED GFR I S NOT APPLICABLE FOR DIALYSIS PATIEN TS. PROTHROMBIN [id number] 19:17:00 Test Item Value Reference Range Interpretation Comments PROTIME (BEAKER) (test code = 14.1 seconds 11.7-14.7 759) INR (BEAKER) (test code = 370) 1.1 <=5.9 RECOMMENDED COUMADIN/WARFARIN INR THERAPY RANGESSTANDARD DOSE: 2.0 - 3.0 Includes: PROPHYLAXIS for venous thrombosis, systemic embolization; TREATMENT for venous thrombosis and/or pulmonary embolus.HIGH RISK: Target INR is 2.5-3.5 for patients with mechanical heart valves.[id number] 19:17:00 Test Item Value Reference Range Interpretation Comments PARTIAL THROMBOPLASTIN TIME 24.9 seconds 22.5-36.0 (BEAKER) (test code = 760) URINALYSIS W/ [id number] 19:15:00 Test Item Value Reference Range Interpretation [...] code = < /HPF 519) WBC UA ([facility]) (test code = 1 /HPF 520) SQUAMOUS EPITHELIAL ([facility]) < /HPF (test code = 516) SOURCE([facility]) (test code = Urine, [place] 0818) POCT-GLUCOSE [id number] 18:33:00 Test Item Value Reference Range Interpretation Comments POC-GLUCOSE METER 75 mg/dL 70-[address] [facility] 6720 ([facility]) (test code = [place] [address] 1538)
[2022-06-16 10:01] LABS: Absolute Lymphocytes (CBC) 2.1 K/uL (0.7-4.9); Hematocrit 23.3 % (36.0-45.0); Lymphocytes % 37.7 % (15.3-44.8); MPV 6.4 fL (7.6-11.3)
[2022-06-16] MEDS ORDERED: Meropenem 1000 MG/VIAL IV ONE (10:22)
[2022-06-16] MEDS ORDERED: NA CHLORIDE 0.9% 100 ML ONE (10:22)
[2022-06-16 10:29] LABS: Albumin 1.7 g/dL (3.4-5.0); Bilirubin Direct 0.2 mg/dL (0-0.2); Bilirubin Total 0.4 mg/dL (0.2-1.0); Magnesium 1.9 mg/dL (1.8-2.4); Protein, Total 5.8 g/dL (6.4-8.2); Troponin High Sensitivity 13.3 pg/mL (<58.9)
[2022-06-16 10:32] LABS: Protime INR 1.38
[2022-06-16 10:41] LABS: SARS-CoV-2 Antigen Rapid Res Negative (Negative)
--- NOTE | 2022-06-16 10:52 | RAD REPORT ---
EXAM DESCRIPTION: Jew[place] Single View06/16/2022 10:28 am CLINICAL HISTORY: Cough COMPARISON: May 2022 FINDINGS: The lungs appear clear of acute infiltrate. The heart is probably borderline enlarged IMPRESSION: No acute abnormalities displayed
[2022-06-16] MEDS ORDERED: NA CHLORIDE 0.9% 1,000 ML ONE (11:03)
[2022-06-16] MEDS ORDERED: DIGOXIN 0.25 MG/ML AMP ONE (11:03)
--- NOTE | 2022-06-16 11:05 | ER ---
Nurse's Notes [facility] Name: Rocio Quiroz Age: 77 yrs Sex: Female : 1945 Arrival Date: 06/16/2022 Time: 09:02 Bed 28 Private MD: Diagnosis: Morbid (severe) obesity due to excess calories;Anemia, unspecified;Postprocedural hemorrhage of skin and subcutaneous tissue following other procedure-INFECTED RIGHT HIP HEMATOMA;Cellulitis and acute lymphangitis of other parts of limb-RIGHT HIP/BUTTOCK Presentation: 06/16 09:09 Chief complaint: Patient states: Bed sore is oozing blood and smells bad so [place] [address] sent her in for eval. No fever. Had fallen a couple months ago on site and had a hematoma there. Coronavirus screen: Vaccine status: Patient reports receiving the 2nd dose of the covid vaccine. Client denies travel out of the [place] in the last 14 days. At this time, the client does not indicate any symptoms associated with coronavirus-19. Ebola Screen: Patient denies travel to an Ebola-affected area in the 21 days before illness onset. Initial Sepsis Screen: Does the patient meet any 2 criteria? No. Patient's initial sepsis screen is negative. Does the patient have a suspected source of infection? Yes: Skin breakdown/wound. Risk Assessment: Do you want to hurt yourself or someone else? Patient reports no desire to harm self or others. Onset of symptoms is unknown. 09:09 Method Of Arrival: EMS ll1 09:09 Acuity: LINDSEY 3 ll1 Triage Assessment: 09:12 General: Appears uncomfortable, ill, Behavior is calm, cooperative, appropriate for [facility] age. Pain:. Derm: Reports pain bed sore is oozing blood, painful, and has a foul odor. Historical: - Allergies: 09:06 Aspirin; ll1 09:06 Morphine; ll1 09:06 PENICILLINS; ll1 09:06 Latex, Natural Rubber; ll1 09:06 Haldol; ll1 09:06 Demerol; ll1 09:06 Ibuprofen; ll1 09:06 Iodine; ll1 09:06 IV contrast; ll1 - PMHx: 09:06 Anemia; Atrial Fib; Cerebral infarction; Sleep Apnea; vitamin d deficiency; CHF; ll1 dysphagia; insomnia; COPD; anxiety; Diverticulitis; Hypertensive disorder; Hypercholesterolemia; Depressive disorder; - Immunization history:: Client reports receiving the 2nd dose of the Covid vaccine. - Social history:: Smoking status: Patient/guardian denies using tobacco, the patient reports quitting approximately 27 years ago. - Family history:: not pertinent. Screenin:06 Abuse screen: Denies threats or abuse. Nutritional screening: No deficits noted. ll1 Tuberculosis screening: No symptoms or risk factors identified. Fall Risk IV access (20 points). Total Friedman Fall Scale indicates No Risk (0-24 pts). Assessment: 10:06 Reassessment: No changes from previously documented assessment. Patient and/or family ll1 updated on plan of care and expected duration. Pain level reassessed. Patient is alert, oriented x 3, equal unlabored respirations, skin warm/dry/pink. 11:00 Reassessment: No changes from previously documented assessment. Patient and/or family ll1 updated on plan of care and expected duration. Pain level reassessed. Patient is alert, oriented x 3, equal unlabored respirations, skin warm/dry/pink. 12:00 Reassessment: No changes from previously documented assessment. Patient and/or family ll1 updated on plan of care and expected duration. Pain level reassessed. Patient is alert, oriented x 3, equal unlabored respirations, skin warm/dry/pink. 13:00 Reassessment: No changes from previously documented assessment. Patient and/or family ll1 updated on plan of care and expected duration. Pain level reassessed. 14:00 Reassessment: No changes from previously documented assessment. Patient and/or family ll1 updated on plan of care and expected duration. Pain level reassessed. Patient is alert, oriented x 3, equal unlabored respirations, skin warm/dry/pink. 15:00 Reassessment: No changes from previously documented assessment. Patient and/or family ll1 updated on plan of care and expected duration. Pain level reassessed. Vital Signs: 09:09 Weight 135.62 kg; Height 5 ft. 6 in. (167.64 cm); Pain 9/10; ll1 09:15 BP 129 / 96; Pulse 126; Resp 18; Temp 98.4(O); Pulse Ox 97% ; ll1 10:06 BP 108 / 73; Pulse 123; Resp 18; ll1 11:20 BP 110 / 76; Pulse 113; Resp 20; Pulse Ox 100% on R/A; ll1 13:23 BP 105 / 61; Pulse 103; ll1 15:45 BP 141 / 61; Pulse 108; Resp 20; Temp 98.4(A); ll1 16:15 BP 114 / 81; Pulse 98; Resp 21; Pulse Ox 100% on R/A; ll1 17:23 BP 101 / 60; Pulse 102; Resp 20; Pulse Ox 97% ; ll1 09:09 Body Mass Index 48.26 (135.62 kg, 167.64 cm) ll1 ED Course: 09:02 Patient arrived in ED. eb 09:06 Anthoyn Hawkins, CICI is Primary Nurse. ll1 09:06 Arm band placed on Patient placed in an exam room, on a stretcher. ll1 09:12 Triage completed. ll1 09:19 Tayo Rosa MD is Attending Physician. ashish 09:21 Maintain EMS IV. Dressing intact. Good blood return noted. Site clean \T\ dry. Gauge \T\ ll 1 site: 22 R wrist. 10:06 Patient has correct armband on for positive identification. Bed in low position. Call ll1 light in reach. Side rails up X 1. Client placed on continuous cardiac and pulse oximetry monitoring. NIBP monitoring applied. custom applicator on. 10:30 XRAY Chest (1 view) In Process Unspecified. EDMS 11:01 Nathan Woodruff MD is Hospitalizing Provider. ashish 12:14 Hip Right 2 View XRAY In Process Unspecified. EDMS Administered Medications: 09:57 Drug: NS 0.9% 1000 ml Route: IV; Rate: 1 bolus; Site: right wrist; ll1 10:49 Follow up: Response: No adverse reaction; IV Status: Completed infusion; IV Intake: ll1 1000ml 10:49 Drug: Meropenem 1 grams Route: IV; Rate: per protocol; Site: right wrist; ll1 13:21 Follow up: Response: No adverse reaction; IV Status: Completed infusion; IV Intake: ll1 100ml 11:00 Drug: NS 0.9% 1000 ml Route: IV; Rate: 1 bolus; Site: right wrist; ll1 13:22 Follow up: Response: No adverse reaction; IV Status: Completed infusion; IV Intake: ll1 1000ml 11:01 Drug: Digoxin 0.5 mg Route: IVP; Site: right wrist; ll1 13:22 Follow up: Response: No adverse reaction ll1 11:21 Drug: fentaNYL (PF) 25 mcg Route: IVP; Site: right wrist; ll1 13:22 Follow up: Response: No adverse reaction ll1 11:21 Drug: Zofran (Ondansetron) 4 mg Route: IVP; Site: right wrist; ll1 13:22 Follow up: Response: No adverse reaction ll1 13:05 Drug: fentaNYL (PF) 25 mcg Route: IVP; Site: right wrist; ll1 13:23 Follow up: Response: No adverse reaction ll1 13:08 Drug: vancoMYCIN 1.5 grams Route: IVPB; Rate: calculated rate; Site: right wrist; ll1 16:05 Follow up: IV Status: Completed infusion; IV Intake: 500ml ll1 Medication: 10:06 VIS not applicable for this client. ll1 Intake: 10:49 IV: 1000ml; Total: 1000ml. ll1 13:21 IV: 100ml; Total: 1100ml. ll1 13:22 IV: 1000ml; Total: 2100ml. ll1 16:05 IV: 500ml; Total: 2600ml. ll1 Outcome: 11:04 Decision to Hospitalize by Provider. ashish 17:45 Patient left the ED. 1 Signatures: Dispatcher [employer] Tayo Fraga MD MD cha Botello, Elizabeth eb Lewis, Lynsay RN RN ll1
--- NOTE | 2022-06-16 11:05 | EDPHYS ---
Physician Documentation [facility] Name: Rocio Quiroz Age: 77 yrs Sex: Female : 1945 Arrival Date: 06/16/2022 Time: 09:02 Bed 28 Private MD: RAGINI Physician Tayo Rosa HPI: 06/16 10:51 This 77 yrs old Female presents to ER via EMS with complaints of RIGHT HIP ashish INFECTED WOUND. 10:51 Patient presents to ED for recheck of: abscess, cellulitis. The affected area is on the ashish right gluteus berto. Previous treatment: 1 WEEK. Progress: The patient reports decreased. Progress: The patient reports decreased drainage, pain, redness, swelling. The patient or guardian reports pain, swelling. that occurred at a longterm or assisted living facility. The complaints affect the right gluteus berto. Onset: The symptoms/episode began/occurred 1 week(s) ago. Modifying factors: The symptoms are alleviated by remaining still, the symptoms are aggravated by any movement. Fanny VEGA OBESE. Historical: - Allergies: 09:06 Aspirin; ll1 09:06 Morphine; ll1 09:06 PENICILLINS; ll1 09:06 Latex, Natural Rubber; ll1 09:06 Haldol; ll1 09:06 Demerol; ll1 09:06 Ibuprofen; ll1 09:06 Iodine; ll1 09:06 IV contrast; ll1 - PMHx: 09:06 Anemia; Atrial Fib; Cerebral infarction; Sleep Apnea; vitamin d deficiency; CHF; ll1 dysphagia; insomnia; COPD; anxiety; Diverticulitis; Hypertensive disorder; Hypercholesterolemia; Depressive disorder; - Immunization history:: Client reports receiving the 2nd dose of the Covid vaccine. - Social history:: Smoking status: Patient/guardian denies using tobacco, the patient reports quitting approximately 27 years ago. - Family history:: not pertinent. ROS: 10:51 Constitutional: Negative for fever, chills, and weight loss, Eyes: Negative for injury, ashish pain, redness, and discharge, ENT: Negative for injury, pain, and discharge, Neck: Negative for injury, pain, and swelling, Respiratory: Negative for shortness of breath, cough, wheezing, and pleuritic chest pain, Abdomen/GI: Negative for abdominal pain, nausea, vomiting, diarrhea, and constipation, Back: Negative for injury and pain, : Negative for injury, bleeding, discharge, and swelling, MS/Extremity: Negative for injury and deformity, Neuro: Negative for headache, weakness, numbness, tingling, and seizure, Psych: Negative for depression, anxiety, suicide ideation, homicidal ideation, and hallucinations, Allergy/Immunology: Negative for hives, rash, and allergies, Endocrine: Negative for neck swelling, polydipsia, polyuria, polyphagia, and marked weight changes. 10:51 Cardiovascular: Positive for palpitations. 10:51 Skin: Positive for cellulitis, hematoma, swelling, of the right gluteus berto. Exam: 10:51 Constitutional: This is a well developed, well nourished patient who is awake, alert, ashish and in no acute distress. Head/Face: Normocephalic, atraumatic. Eyes: Pupils equal round and reactive to light, extra-ocular motions intact. Lids and lashes normal. Conjunctiva and sclera are non-icteric and not injected. Cornea within normal limits. Periorbital areas with no swelling, redness, or edema. ENT: Nares patent. No nasal discharge, no septal abnormalities noted. Tympanic membranes are normal and external auditory canals are clear. Oropharynx with no redness, swelling, or masses, exudates, or evidence of obstruction, uvula midline. Mucous membranes moist. Neck: Trachea midline, no thyromegaly or masses palpated, and no cervical lymphadenopathy. Supple, full range of motion without nuchal rigidity, or vertebral point tenderness. No Meningismus. Chest/axilla: Normal chest wall appearance and motion. Nontender with no deformity. No lesions are appreciated. Respiratory: Lungs have equal breath sounds bilaterally, clear to auscultation and percussion. No rales, rhonchi or wheezes noted. No increased work of breathing, no retractions or nasal flaring. Abdomen/GI: Soft, non-tender, with normal bowel sounds. No distension or tympany. No guarding or rebound. No evidence of tenderness throughout. Back: No spinal tenderness. No costovertebral tenderness. Full range of motion. Female : Normal external genitalia. Neuro: Awake and alert, GCS 15, oriented to person, place, time, and situation. Cranial nerves II-XII grossly intact. Motor strength 5/5 in all extremities. Sensory grossly intact. Cerebellar exam normal. Normal gait. Psych: Awake, alert, with orientation to person, place and time. Behavior, mood, and affect are within normal limits. 10:51 Cardiovascular: Rate: tachycardic, actual rate is 123 bpm, Rhythm: irregularly irregular, Pulses: Pulses are 4+ in bilateral radial, brachial, femoral, popliteal, posterior tibial and and dorsalis pedis arteries.. Heart sounds: normal, Edema: 1+ edema to level of left midcalf and right midcalf, JVD: is not appreciated. 10:51 ECG was reviewed by the Attending Physician. Vital Signs: 09:09 Weight 135.62 kg; Height 5 ft. 6 in. (167.64 cm); Pain 9/10; ll1 09:15 BP 129 / 96; Pulse 126; Resp 18; Temp 98.4(O); Pulse Ox 97% ; ll1 10:06 BP 108 / 73; Pulse 123; Resp 18; ll1 11:20 BP 110 / 76; Pulse 113; Resp 20; Pulse Ox 100% on R/A; ll1 13:23 BP 105 / 61; Pulse 103; ll1 15:45 BP 141 / 61; Pulse 108; Resp 20; Temp 98.4(A); ll1 16:15 BP 114 / 81; Pulse 98; Resp 21; Pulse Ox 100% on R/A; ll1 17:23 BP 101 / 60; Pulse 102; Resp 20; Pulse Ox 97% ; ll1 09:09 Body Mass Index 48.26 (135.62 kg, 167.64 cm) ll1 Procedures: 10:56 Performed WOUND REPACKING, CULTURES, IODINE, CLING. ashish MDM: 09:[address] [facility] 10:56 Differential diagnosis: cellulitis, bursitis, strain. Differential Diagnosis sepsis. [facility] Data reviewed: vital signs, EMS record, lab test result(s), EKG, radiologic studies, plain films. Data interpreted: groundwater monitoring technician: rate is 130 beats/min, rhythm is irregularly irregular, Pulse oximetry: on room air is 97 %. Test interpretation: by ED physician or midlevel provider: ECG, plain radiologic studies. Counseling: I had a detailed discussion with the patient and/or guardian regarding: the historical points, exam findings, and any diagnostic results supporting the discharge/admit diagnosis, lab results, radiology results, the need for further work-up and treatment in the hospital. 06/16 09:26 Order name: Basic Metabolic Panel; Complete Time: 10:57 [facility] 06/16 09:26 Order name: CBC with Diff; Complete Time: 10:57 [facility] 06/16 09:26 Order name: LFT's; Complete Time: 10:57 [facility] 06/16 09:26 Order name: Magnesium; Complete Time: 10:57 [facility] 06/16 09:26 Order name: NT PRO-BNP; Complete Time: 10:57 [facility] 06/16 09:26 Order name: PT-INR; Complete Time: 10:57 [facility] 06/16 09:26 Order name: Troponin HS; Complete Time: 10:57 [facility] 06/16 09:26 Order name: Blood Culture Adult (2) [facility] 06/16 09:26 Order name: Urine Culture [facility] 06/16 09:26 Order name: Lactate; Complete Time: 10:57 [facility] 06/16 09:26 Order name: Urine Microscopic Only [facility] 06/16 09:27 Order name: SARS RAPID; Complete Time: 10:57 [facility] 06/16 09:28 Order name: Wound Culture [facility] 06/16 10:33 Order name: TSH; Complete Time: 12:23 [facility] 06/16 10:33 Order name: Depakote; Complete Time: 12:23 [facility] 06/16 10:58 Order name: Type And Screen [facility] 06/16 12:56 Order name: Packed RBC Leukored [facility] [place] 06/16 15:28 Order name: NT PRO-BNP EDFL 06/16 15:28 Order name: Urinalysis EDFL 06/16 15:28 Order name: Vancomycin Level Trough EDFL 06/16 15:28 Order name: Vancomycin Peak EDFL 06/16 15:28 Order name: Vitamin D,1,25 Dihydroxy EDMS 06/16 15:28 Order name: Basic Metabolic Panel EDFL 06/16 15:28 Order name: Basic Metabolic Panel EDFL 06/16 15:28 Order name: CBC with Automated Diff EDMS 06/16 15:28 Order name: CBC with Automated Diff EDMS 06/16 15:28 Order name: Comprehensive Metabolic Panel EDMS 06/16 15:28 Order name: Comprehensive Metabolic Panel EDMS 06/16 15:28 Order name: Magnesium EDFL 06/16 09:26 Order name: XRAY Chest (1 view); Complete Time: 10:57 [facility] 06/16 09:26 Order name: EKG; Complete Time: 09:27 [facility] 06/16 09:26 Order name: Cardiac monitoring; Complete Time: 10:08 [facility] 06/16 09:26 Order name: EKG - Nurse/Tech; Complete Time: 10:08 [facility] 06/16 09:26 Order name: IV Saline Lock; Complete Time: 09:28 [facility] 06/16 09:26 Order name: Labs collected and sent; Complete Time: 09:28 [facility] 06/16 09:26 Order name: O2 Per Protocol; Complete Time: 09:28 [facility] 06/16 09:26 Order name: O2 Sat Monitoring; Complete Time: 09:28 [facility] 06/16 10:49 Order name: IV Saline Lock - Large Bore [facility] 06/16 10:50 Order name: Wound dressing; Complete Time: 10:54 [facility] 06/16 10:52 Order name: Hip Right 2 View XRAY; Complete Time: 12:27 06/16 15:28 Order name: CONS Physician Consult EDFL 06/16 15:28 Order name: Heart Healthy EDFL 06/16 15:28 Order name: NPO EDFL 06/16 15:28 Order name: Magnesium EDFL 06/16 15:28 Order name: Phosphorus EDFL 06/16 15:28 Order name: Phosphorus [facility] [place] 06/16 15:28 Order name: Protime (+INR) EDFL 06/16 15:28 Order name: Protime (+INR) [facility] [place] 06/16 15:28 Order name: PTT, Activated Partial Thromb EDFL 06/16 15:28 Order name: PTT, Activated Partial Thromb [facility] [place] 06/16 16:10 Order name: Glucose, Ancillary Testing EDFL EC:51 Rate is 132 beats/min. Rhythm is irregularly irregular. QRS Jemison is Normal. NM interval ashish is normal. QRS interval is normal. QT interval is normal. No Q waves. T waves are Normal. No ST changes noted. Clinical impression: Atrial Fibrillation and No evidence of ischemia. Interpreted by me. Reviewed by me. Administered Medications: : Drug: NS 0.9% 1000 ml Route: IV; Rate: 1 bolus; Site: right wrist; ll1 10:49 Follow up: Response: No adverse reaction; IV Status: Completed infusion; IV Intake: ll1 1000ml 10:49 Drug: Meropenem 1 grams Route: IV; Rate: per protocol; Site: right wrist; ll1 13:21 Follow up: Response: No adverse reaction; IV Status: Completed infusion; IV Intake: ll1 100ml 11:00 Drug: NS 0.9% 1000 ml Route: IV; Rate: 1 bolus; Site: right wrist; ll1 13:22 Follow up: Response: No adverse reaction; IV Status: Completed infusion; IV Intake: ll1 1000ml 11:01 Drug: Digoxin 0.5 mg Route: IVP; Site: right wrist; ll1 13:22 Follow up: Response: No adverse reaction ll1 11:21 Drug: fentaNYL (PF) 25 mcg Route: IVP; Site: right wrist; ll1 13:22 Follow up: Response: No adverse reaction ll1 11:21 Drug: Zofran (Ondansetron) 4 mg Route: IVP; Site: right wrist; ll1 13:22 Follow up: Response: No adverse reaction ll1 13:05 Drug: fentaNYL (PF) 25 mcg Route: IVP; Site: right wrist; ll1 13:23 Follow up: Response: No adverse reaction ll1 13:08 Drug: vancoMYCIN 1.5 grams Route: IVPB; Rate: calculated rate; Site: right wrist; ll1 16:05 Follow up: IV Status: Completed infusion; IV Intake: 500ml ll1 Disposition Summary: 06/16/22 11:04 Hospitalization Ordered Hospitalization Status: Inpatient Admission ashish Provider: Nathan Woodruff cha [facility]) ashish Condition: Fair ashish Problem: new ashish Symptoms: have improved ashish Bed/Room Type: Standard ashish Room Assignment: 414(06/16/22 16:08) eb Diagnosis - Morbid (severe) obesity due to excess calories ashish - Anemia, unspecified ashish - Postprocedural hemorrhage of skin and subcutaneous tissue following other procedure ashish - INFECTED RIGHT HIP HEMATOMA - Cellulitis and acute lymphangitis of other parts of limb - RIGHT HIP/BUTTOCK ashish Forms: - Medication Reconciliation Form ashish - SBAR form ashish Signatures: Dispatcher [employer] EDTayo Lee MD MD cha Waters, Shelly, GABRIELA-C LICENSED PRACTICAL VOCATIONAL NURSE-Linda Kelly Lynsay RN RN ll1 Corrections: (The following items were deleted from the chart) 15:30 09:31 Head C Spine Cap Wo Con+CT.RAD.BRZ ordered. EDMS EDMS 16:08 11:04 ashish navas
[2022-06-16] MEDS ORDERED: ONDANSETRON 4 MG/2 ML VIAL ONE (11:25)
[2022-06-16] MEDS ORDERED: FENTANYL CITR 100 MCG/2 ML ONE (11:25)
[2022-06-16 12:14] LABS: Thyroid Stimulating Hormone 2.58 uIU/mL (0.360-3.740)
--- NOTE | 2022-06-16 12:25 | RAD REPORT ---
EXAM DESCRIPTION: RAD - Hip Right 2 View - 06/16/2022 12:12 pm CLINICAL HISTORY: Right hip pain FINDINGS: No fracture or dislocation is seen. Soft tissue ulceration lateral right thigh. Osteoporosis. No bony destructive lesion seen. No dislocation
[2022-06-16] MEDS ORDERED: VANCOMYCIN 1.5 GM in NA CHLORIDE 0.9% 500 ML IVPB ONE (13:00)
[2022-06-16 14:52] LABS: Urine Bacteria <20 /HPF (<20); Urine Crystals Unidentified Few /HPF (None Seen); Urine Mucus Slight /HPF (None Seen); Urine RBC <5 /HPF (None Seen)
[2022-06-16] MEDS ORDERED: PROMETHAZINE 25 MG/SUPP PR PRN (15:25)
[2022-06-16] MEDS ORDERED: FUROSEMIDE 40 MG/4 ML VIAL IV ONE (15:25)
[2022-06-16] MEDS ORDERED: TEMAZEPAM 15 MG CAP PO PRN (15:25)
[2022-06-16] MEDS ORDERED: LORazepam 2 MG/ML VIAL IV PRN (15:25)
[2022-06-16 15:39] VITALS: BMI 48.2
[2022-06-16] MEDS: INSULIN -REGULAR HUMAN 50 UNIT/0.5 ML ML SQ SCH ×2 (15:58→21:00)
[2022-06-16] MEDS ORDERED: FUROSEMIDE 40 MG/4 ML VIAL ONE (16:00)
[2022-06-16] MEDS: ALBUTEROL 2.5 MG/3 ML NEB SOL NEB SCH ×2 (16:22→20:15)
[2022-06-16] MEDS ORDERED: ALBUTEROL 2.5 MG/3 ML NEB SOL ONE (16:26)
[2022-06-16] MEDS ORDERED: VANCOMYCIN 2 GM in NA CHLORIDE 0.9% 500 ML IVPB SCH (17:00)
[2022-06-16] MEDS ORDERED: Meropenem 1,000 MG in NA CHLORIDE 0.9% 100 ML IV SCH (17:00)
--- NOTE | 2022-06-16 17:37 | P.HP ---
Certification for Inpatient With expected LOS: >2 Midnights (Pt is currently a resident of a senior care) Practitioner: I am a practitioner with admitting privileges, knowledge of patient current condition, hospital course, and medical plan of care. Services: Services provided to patient in accordance with Admission requirements found in Title 42 Section 412.3 of the Code of Federal Regulations Patient History Date of Service: 06/16/22 [facility] Reason for admission: Infected Hematoma, Cellulitis History of Present Illness: Mrs. Quiroz is a 77yo female with a pmh of morbid obesity, anemia, CHF, COPD, atrial fibrillation who fell into a CT table a couple of weeks ago. Pt developed a hematoma which began getting red, hard, tender, the area was draining foul smelling exudate. Mrs. Quiroz arrived in the ED at [facility] this morning where Dr. Rosa opened the hematoma and packed the area with Kerlix. Pt will require surgical debridement. Dr. Mckeon evaluated her in the ED and will take her to surgery tomorrow. Pt noted to be anemic and is on eliquis. Dr. Mckeon aware. Allergies iodine Allergy (Verified 12/22/16 01:47) Hives/Rash latex Allergy (Verified 12/22/16 01:47) Hives/Rash Latex, Natural Rubber Allergy (Verified 02/01/18 20:29) Itching/Hives/Rash morphine Allergy (Verified 12/22/16 01:47) Hives Penicillins Allergy (Verified 12/22/16 01:47) Hives/Rash haloperidol [From Haldol] Adverse Reaction (Verified 12/22/16 01:47) anxiety haloperidol lactate [From Haldol] Adverse Reaction (Verified 12/22/16 01:47) anxiety Home medications list reviewed: Yes ([facility] medications [facility]) Home Medications: Duloxetine HCl [Cymbalta] 2 cap PO DAILY 01/13/14 Montelukast Sodium 10 mg PO BEDTIME 12/22/16 Atorvastatin Calcium [Lipitor] 1 tab PO BEDTIME 02/01/18 Clopidogrel Bisulfate [Plavix*] 75 mg PO DAILY 02/01/18 Cyanocobalamin (Vitamin B-12) [Vitamin B-12] 2 tab PO DAILY 02/01/18 Hydrocodone Bit/Acetaminophen [Hydrocodon-Acetaminophn 10-325] 1 tab PO Q6H PRN 02/01/18 Melatonin 1 tab PO BEDTIME 02/01/18 Acetaminophen 2 tab PO Q8HP PRN 03/24/18 L. Acidophilus/Pectin, [place] [Acidophilus Capsule] 1 cap PO DAILY 03/24/18 Nystatin Powder [Mycostatin (Powder)*] 1 markie TOP BID 03/24/18 Omeprazole 20 mg PO DAILY 03/24/18 Albuterol Inhaler [Ventolin Inhaler*] 2 puff IH Q6H PRN 07/16/21 Bisacodyl [Gentle Laxative] 10 mg RC DAILY PRN 07/16/21 Bupropion HCl [Wellbutrin] 75 mg PO DAILY 07/16/21 Cranberry Fruit Extract [Cranberry] 425 mg PO BID 07/16/21 Diclofenac Sodium [Voltaren Arthritis Pain] 20 gm TP DAILY PRN 07/16/21 Docusate [Colace Cap*] 100 mg PO BID 07/16/21 Ergocalciferol (Vitamin D2) [Vitamin D2] 50,000 unit PO DAILY 07/16/21 LORazepam [Ativan*] 0.5 mg PO BID PRN 07/16/21 Mag Hydroxide 8% [Milk Of Magnesia*] 30 ml PO DAILY PRN 07/16/21 Ondansetron [Zofran (Odt)*] 4 mg PO Q6H PRN 07/16/21 Quetiapine Fumarate [Seroquel] 25 mg PO BEDTIME 07/16/21 Meropenem [Merrem 1 GM/100 ML NS IVPB] 1 gm IV Q8H 3 Days #8 bag 07/19/21 Metoprolol Tartrate [Lopressor*] 25 mg PO BID 30 Days #60 tab 07/19/21 - Past Medical/Surgical History Has patient received pneumonia vaccine in the past: Yes Diabetic: No -: Hypertension -: COPD -: CHF -: Atrial fibrillation -: Depression with anxiety -: Morbid obesity -: Obstructive sleep apnea -: Lymphedema -: Bedbound post bilateral knee replacements and CVA -: Hysterectomy -: Appendectomy -: Right knee replacement -: Left knee replacement Psychosocial/ Personal History: She is of 55 years, has 2 children, she does not work. She gets around in a wheelchair. - Family History Mother Notes: alzheimers - Social History Smoking Status: Never smoker Alcohol use: No CD- Drugs: No Caffeine use: No Place of Residence: Custodial Review of Systems General: Malaise Eyes: Unremarkable ENT: Unremarkable Respiratory: Unremarkable Genitourinary: Unremarkable Musculoskeletal: Unremarkable Integumentary: As per HPI Neurological: Unremarkable Lymphatics: Unremarkable Physical Examination - Vital Signs Temperature: 98.4 F Blood Pressure: 141/61 Pulse: 108 Respirations: 20 Pulse Ox (%): 97 - Physical Exam General: Alert, Oriented x3, Obese HEENT: Atraumatic Neck: Supple Respiratory: Clear to auscultation bilaterally Cardiovascular: Edema, Irregular heart rate/rhythm, Systolic murmur Capillary refill: <2 Seconds Gastrointestinal: Normal bowel sounds Musculoskeletal: Other (does not ambulate) Integumentary: Skin lesion, Tenderness/swelling, Erythema, Pressure ulcer, Other (infected hematoma) Neurological: Other (as noted) Lymphatics: No axilla or inguinal lymphadenopathy - Studies Laboratory Data (last 24 hrs) 06/16/22 09:40: PT 16.3 H, INR 1.38 06/16/22 09:40: WBC 5.40, Hgb 7.9 L D, Hct 23.3 L, Plt Count 167 06/16/22 09:40: Sodium 135 L, Potassium 4.0, BUN 23 H, Creatinine 0.97, Glucose 97, Magnesium 1.9, Total Bilirubin 0.4, AST 14 L, ALT 11 L, Alkaline Phosphatase 126 H Assessment and Plan - Problems (Diagnosis) (1) Cellulitis Current Visit: Yes Status: Acute Plan: IV abx, follow labs Qualifiers: Site of cellulitis: other site Qualified Code(s): L03.818 - Cellulitis of other sites (2) Abscess Current Visit: Yes Status: Acute Plan: IV abx, surgical debridement per Dr. Mckeon (3) Anemia Current Visit: Yes Status: Acute Qualifiers: Anemia type: unspecified type Qualified Code(s): D64.9 - Anemia, unspecified (4) Osteoporosis Current Visit: Yes Status: Acute Plan: Follow Vit D level, consult PT for increased movement, weight bearing, weight loss with improved nutrition goal Qualifiers: Osteoporosis type: age-related Presence of current pathological fracture: without current pathological fracture Qualified Code(s): M81.0 - Age-related osteoporosis without current pathological fracture - Plan Follow CBC, hold eliquis before surgery, low threshold for replacement Discharge Plan: Custodial Plan to discharge in: 72 Hours - Advance Directives Does patient have a Living Will: No Does patient have a Durable POA for Healthcare: No - Code Status/Comfort Care Code Status Assessed: Yes Code Status: Full Code Time Spent Managing Pts Care (In Minutes): 70
[2022-06-16] MEDS ORDERED: VANCOMYCIN 500 MG in NA CHLORIDE 0.9% 100 ML IVPB ONE (20:00)
[2022-06-16] MEDS: DULOXETINE 30 MG CAP PO SCH (21:10)
[2022-06-16] MEDS: ATORVASTATIN 40 MG TAB PO SCH (21:10)
[2022-06-16] MEDS: D5 0.9 NS 1,000 ML IV SCH (21:18)
[2022-06-16] MEDS ORDERED: VANCOMYCIN 500 MG/VIAL ONE (21:23)
[2022-06-16] MEDS: DIVALPROEX DR 250 MG TAB PO SCH (21:24)
[2022-06-17] MEDS: ALBUTEROL 2.5 MG/3 ML NEB SOL NEB SCH ×4 (01:45→19:55)
[2022-06-17] MEDS ORDERED: ONDANSETRON 4 MG/2 ML VIAL IV PRN (03:16)
[2022-06-17] MEDS ORDERED: ONDANSETRON 4 MG/2 ML VIAL ONE ×3 (03:24→14:33)
[2022-06-17] MEDS ORDERED: FENTANYL CITR 100 MCG/2 ML IV ONE (03:25)
[2022-06-17] MEDS: INSULIN -REGULAR HUMAN 50 UNIT/0.5 ML ML SQ SCH ×4 (07:30→22:24)
[2022-06-17] MEDS: PANTOPRAZOLE 40MG TABLET PO SCH ×2 (07:30→09:31)
[2022-06-17 08:49] LABS: Absolute Lymphocytes (CBC) 1.4 K/uL (0.7-4.9); Hematocrit 23.7 % (36.0-45.0); Lymphocytes % 32.8 % (15.3-44.8); MCV 98.4 fL (80-100); MPV 6.9 fL (7.6-11.3); RBC Red Blood Cell Count 2.41 M/uL (3.86-4.86)
[2022-06-17 08:52] LABS: Protime INR 1.29
[2022-06-17] MEDS: buPROPion HCL 100 MG TAB PO SCH (09:00)
[2022-06-17] MEDS: DIVALPROEX DR 250 MG TAB PO SCH ×2 (09:00→22:33)
[2022-06-17] MEDS: FLUCONAZOLE 100 MG TAB PO SCH (09:00)
[2022-06-17 09:07] LABS: Potassium 3.9 mmol/L (3.5-5.1)
[2022-06-17 09:08] LABS: Albumin 1.4 g/dL (3.4-5.0); Bilirubin Total 0.2 mg/dL (0.2-1.0); Magnesium 1.7 mg/dL (1.8-2.4); Phosphorus 2.2 mg/dL (2.5-4.9); Protein, Total 4.9 g/dL (6.4-8.2)
[2022-06-17] MEDS: D5 0.9 NS 1,000 ML IV SCH (09:30)
[2022-06-17] MEDS: VANCOMYCIN 1.5 GM in NA CHLORIDE 0.9% 500 ML IVPB SCH (09:30)
--- NOTE | 2022-06-17 09:59 | P.PN ---
Subjective Date of Service: 06/17/22 Primary Care Provider: ZACH COTO Chief Complaint: Infected wound in the right hip region Patient is complaining of pain and she has bleeding from a deep ulcer in the region of her right hip scheduled to have surgery Review of Systems General: Weakness Integumentary: As per HPI Physical Examination - Vital Signs Temperature: 97.9 F Blood Pressure: 90/53 Pulse: 117 Respirations: 16 Pulse Ox (%): 95 - Physical Exam General: Alert, In no apparent distress, Mild distress Respiratory: Clear to auscultation bilaterally Cardiovascular: No edema, Regular rate/rhythm Integumentary: Other (She has a deep wound in the region of the right hip which has been packed and is also bleeding has some intertrigo rash) - Studies Laboratory Data (last 24 hrs) 06/16/22 09:40: PT 16.3 H, INR 1.38 06/16/22 09:40: WBC 5.40, Hgb 7.9 L D, Hct 23.3 L, Plt Count 167 06/16/22 09:40: Sodium 135 L, Potassium 4.0, BUN 23 H, Creatinine 0.97, Glucose 97, Magnesium 1.9, Total Bilirubin 0.4, AST 14 L, ALT 11 L, Alkaline Phosphatase 126 H Assessment And Plan - Current Problems (Diagnosis) (1) Abscess Current Visit: Yes Status: Acute Plan: Patient is 77 years of age has an abscess in the right hip region to be seen by Dr. Mckeon possible incision and drainage is also bleeding patient's hemoglobin is stable with will withhold transfusion right now patient is on meropenem vancomycin cultures pending (2) Candidal intertrigo Current Visit: Yes Status: Acute Plan: Will need some antifungal cream topical nystatin cream with oral Diflucan she also has fungal infection presumed under her abdominal folds
[2022-06-17 10:40] LABS: Blood Morphology Comment NOT SEEN (NOT SEEN); Platelet Estimate DECR
[2022-06-17] MEDS ORDERED: Ringers Lactate 1,000 ML IV ONE (12:21)
--- NOTE | 2022-06-17 12:34 | EKG ---
Test Date: 2022-06-16 Test Time: 10:00:14 [place] Operator: ELEANOR MEASUREMENT RESULTS: Intervals: Rate: 132 [place]: QRSD: 90 QT: 268 QTc: 397 [place]: P: [place]: QRS: 50 T: 157 INTERPRETIVE STATEMENTS: Atrial fibrillation with rapid ventricular response Low voltage QRS Inferior-posterior infarct, age undetermined Abnormal ECG Compared to ECG 07/15/2021 09:32:36 Low QRS voltage now present Myocardial infarct finding still present Electronically Signed On 06-17-22 12:32:34 CDT by Elan Cobb
[2022-06-17] MEDS ORDERED: VANCOMYCIN 2 GM in NA CHLORIDE 0.9% 500 ML IVPB SCH (13:00)
[2022-06-17] MEDS ORDERED: FENTANYL CITR 100 MCG/2 ML ONE (13:15)
[2022-06-17] MEDS ORDERED: propofoL 200 MG/20 ML VIAL IV ONE (13:15)
[2022-06-17] MEDS ORDERED: LIDOCAINE 1% MPF 5 ML VIAL ONE (13:16)
[2022-06-17] MEDS ORDERED: ETOMIDATE 20 MG/10 ML VIAL IV ONE (13:46)
[2022-06-17] MEDS ORDERED: NS 0.9% VIAL 10 ML ONE ×2 (13:47→13:52)
[2022-06-17] MEDS ORDERED: VECURONIUM 10 MG/VIAL IV ONE (13:47)
[2022-06-17] MEDS ORDERED: Phenylephrine HCl 10 MG/ML 1 ML VIAL ONE (13:52)
--- NOTE | 2022-06-17 14:10 | P.BOP ---
Preoperative diagnosis: Right hip/thigh infected wound with necrotic tissue Postoperative diagnosis: same Primary procedure: EXcisional debridment Right hip/thigh infected wound 27 x 20 x 5 cm Estimated blood loss: <20cc Specimen: necrotic tissue Findings: large wound with necrotic fat and hematoma Anesthesia: General Complications: None Drain(s): Other (KErlix roll) Transferred to: Recovery Room Condition: Good
[2022-06-17] MEDS ORDERED: NEOSTIGMINE 1 MG/ML -10 ML VIAL ONE (14:18)
[2022-06-17] MEDS ORDERED: GLYCOPYRROLATE 0.2 MG/ML SYR ONE (14:24)
[2022-06-17] MEDS ORDERED: SUCCINYLCHOLINE 20 MG/ML (10 ML) IV ONE (14:34)
[2022-06-17] MEDS: FENTANYL CITR 100 MCG/2 ML ONE ×2 (14:47→14:52)
[2022-06-17] MEDS: Oxycodone HCl/Acetaminophen 1 TAB TAB PO PRN ×2 (17:16→22:33)
[2022-06-17] MEDS: NYSTATIN OINT 15 GM TUBE TOP SCH ×2 (17:17→22:35)
[2022-06-17] MEDS: Meropenem 1,000 MG in NA CHLORIDE 0.9% 100 ML IV SCH ×2 (17:18→22:32)
--- NOTE | 2022-06-17 17:52 | CON ---
Date of Consultation: 06/16/2022 This patient was seen in the ER. History Of Present Illness: This is the case of a 77-year-old patient who have a contusion of the [facility] hip area developing into what looked like an infected hematoma. Some debridement was done previo usly, but they noticed that area was not improving. So, she come to the ER and they asked me for nasir gical debridement. Apparently, the insult of this was hitting an imaging table about a week ago. Allergies: IODINE, LATEX, MORPHINE, PENICILLIN, HALDOL. Medications: Include Plavix, Lipitor, Past Medical History: Include hypertension, COPD, congestive heart failure, atrial fibrillation, dep ression, morbid obesity, sleep apnea, lymphedema. Past Surgical History: Include hysterectomy, appendectomy, bilateral knee replacement. Social History: She does not smoke. She does not drink alcohol. Family History: Alzheimer. Review of Systems: No shortness of breath. No chest pain. No fever. Patient has a pain on the right groin area. The ER physician previously did an I and D, although I noticed during that I and D that it will need a montero rgical debridement. So, she is tender in that area at this moment. Physical Examination: General: Patient is awake and alert. HEENT: Pupils are equal and reactive. Anicteric. Neck: Supple. Chest: Clear. Abdomen: Soft and depressible. No guarding or rebound. Integumentary: Over the right hip region area, patient has an open wound, recently done an incision and drainage by the ER physician, noticed to have what it looked like an infected hematoma. I was no t there during that event, but have some necrotic tissue present and that is the reason why I am on t he consult. There is no fluctuance present at this moment. There is some devitalized tissue that ne eds to be excised. The area is limited since the patient has so much pain that is allowing limited e valuation of the area. Extremities: Good capillary refill. Laboratory Data: Blood work shows WBC count of 5, with hemoglobin of 7.9 and platelets up to 167. I NR is 1.38 and BUN is 19, total bilirubin of 0.2, potassium 3.9, creatinine of 0.78. Patient had a h ip x-ray that shows no fracture seen. Soft tissue ulceration seen in the right lateral thigh, hip ar ea. Chest x-ray interpreted by Dr. Medeiros as no acute abnormalities. Assessment: This is a 77-year-old patient with traumatic wound on the right hip area and thigh regio n, received an initial incision and drainage in the ER, found to have necrotic tissue present, an inf ected hematoma and a surgical consult was obtained for surgical debridement. The benefits, alternati ves, and risks were fully explained to the patient which include, but not limited to, infection, blee ding, damage to adjacent structures, anesthesia complication, nonhealing wound, ME, and even . She also understands this may not relieve any symptoms. She might need more than one surgical interv ention and she will require chronic wound care. She understands the importance also of following up with medical doctor for medical issues control. DEWEY/ALICE Voice ID: [id number] Report ID: [id number]
[2022-06-17] MEDS: DULOXETINE 30 MG CAP PO SCH (22:33)
[2022-06-17] MEDS: ATORVASTATIN 40 MG TAB PO SCH (22:33)
--- NOTE | 2022-06-17 23:55 | OP ---
Date of Procedure: 06/17/2022 Surgeon: Kb Mckeon MD Preoperative Diagnoses: Right hip and thigh infected wound with necrotic tissue and infected hematom a. Postoperative Diagnoses: Right hip and thigh infected wound with necrotic tissue and infected hemato ma. Procedure: 1.Excisional debridement of the right hip and thigh infected wound about 27 x 20 x 5 cm deep. 2.We used pulse lavage. Estimated Blood Loss: Less than 20 cc. Specimen: Necrotic tissue. Findings: Large wound with multiple cavities and loculations. There is some fat necrosis present wi th hematoma present. We proceeded to remove all the necrotic tissue present. We believe it is mali r to use a pulse lavage on that area to remove all the debris. The patient initially was checked for a latex allergy, so we used latex-free glove and instrument. Also we verified her iodine which is o nly to IV contrast, no topical iodine. The pulse lavage was done with the help of normal saline. Anesthesia: General plus local. Indication: This is a case of a 77-year-old patient who comes to us with right hip infected wound. Apparently due to a contusion, she was seen in ER at the beginning, did an I and D of that area. I c reate an open wound to try to drain that region, but that they noticed to be a little bit more than norberto marie can handle in the ER and they called for a surgical consult for a surgical debridement under anes thesia. The benefits, alternatives, and risks were explained to the patient which include, but not l imited to infection, bleeding, damage to adjacent structures, anesthesia complication, recurrence, [place] , and even . She also understands this may not relieve any symptoms. She might need more than one surgical intervention. Apparently, she has been bed-bound for a long time and she is morbidly ob nadia and dressing change in her may be a challenge. At one point, we might have to use a wound VAC. Once we get this area completely clean, may require long-term followup. Once again, we did the wound VAC, we went to make sure that we have no latex on that wound VAC. In the meantime, we are going to do wet-to-dry. For the iodine, she might have irrigation with iodine or chlorhexidine since she has claimed no allergies to topical iodine or chlorhexidine. For antibiotics, we are [facility] that when she has multiple antibiotic allergies. For pain control, she also has morphine allergies. Procedure In Detail: The area was prepped and draped in sterile fashion. Local anesthesia was appli ed followed by a sharp debridement of necrotic tissue present and a large open wound, which was about 27 x 20 x 5 cm. Loculations were explored, opened. Hemostasis obtained and then we proceeded to pu lse lavage the area with the help of several liters of plain normal saline. The patient tolerated th e procedure well. The area was packed with wet-to-dry dressing. The patient tolerated the procedure well. The patient was sent to recovery in stable condition. Sponge count and instrument counts wer e correct. This patient may need more than one surgical intervention. This patient most likely will need a wound VAC. DEWEY/ALICE Voice ID: [id number] Report ID: [id number]
[2022-06-18] MEDS: ALBUTEROL 2.5 MG/3 ML NEB SOL NEB SCH ×2 (01:15→08:00)
[2022-06-18] MEDS: VANCOMYCIN 1.5 GM in NA CHLORIDE 0.9% 500 ML IVPB SCH (02:18)
[2022-06-18] MEDS: D5 0.9 NS 1,000 ML IV SCH (06:27)
[2022-06-18] MEDS: INSULIN -REGULAR HUMAN 50 UNIT/0.5 ML ML SQ SCH ×4 (07:30→20:39)
[2022-06-18] MEDS ORDERED: MAGNESIUM SULFATE 1 gm IVPB 1 GM/100 ML BAG IV ONE (09:00)
[2022-06-18] MEDS: Meropenem 1,000 MG in NA CHLORIDE 0.9% 100 ML IV SCH (09:00)
[2022-06-18] MEDS: NYSTATIN OINT 15 GM TUBE TOP SCH ×2 (09:00→20:39)
[2022-06-18] MEDS ORDERED: POTASSIUM PHOS IN 0.9 % NACL 15 MMOL/250 ML BAG IV ONE (09:00)
--- NOTE | 2022-06-18 09:07 | P.PN ---
Subjective Date of Service: 06/18/22 Primary Care Provider: ZACH COTO Chief Complaint: Infected wound in the right hip region Patient is is s/p incision and drainage of the wound is still complaining of pain doing better Review of Systems Unremarkable Physical Examination - Vital Signs Temperature: 97.2 F Blood Pressure: 108/59 Pulse: 103 Respirations: 18 Pulse Ox (%): 97 - Physical Exam General: Alert, In no apparent distress, Oriented x3 Respiratory: Clear to auscultation bilaterally Cardiovascular: No edema, Regular rate/rhythm, Normal S1 S2 - Studies Microbiology Data (last 24 hrs): 06/16/22 10:30 Wound - Skin Gram Stain - Final 06/16/22 14:15 Catheterized Urine Icard Count - Final <10,000 CFU/ML. 06/16/22 14:15 Catheterized Urine - Final MIXED MARIELENA. Assessment And Plan - Current Problems (Diagnosis) (1) Abscess Current Visit: Yes Status: Acute Plan: Patient is doing much better s/p I&D wound was cleaned out doing much better no evidence of active sepsis change to p.o. levofloxacin and doxycycline discharge planning (2) Candidal intertrigo Current Visit: Yes Status: Acute Plan: Continue with Diflucan and nystatin topically
[2022-06-18] MEDS: Oxycodone HCl/Acetaminophen 1 TAB TAB PO PRN ×3 (09:50→20:38)
[2022-06-18] MEDS: buPROPion HCL 100 MG TAB PO SCH (09:50)
[2022-06-18] MEDS: DIVALPROEX DR 250 MG TAB PO SCH ×2 (09:50→20:38)
[2022-06-18] MEDS: PANTOPRAZOLE 40MG TABLET PO SCH (09:52)
[2022-06-18] MEDS: FLUCONAZOLE 100 MG TAB PO SCH (09:52)
--- NOTE | 2022-06-18 12:03 | PN ---
Date of Progress Note: 06/18/2022 Diagnosis: Status post debridement of the right thigh and hip ulcer. Subjective: From the surgical standpoint, the patient is awake. Intact surgical site. Plan: I believe we just try the wound VAC, change every 3 days. Pain control per primary doctor. A ntibiotics per Infectious Disease and medical doctors. Out of bed, ambulation will be nice, although she has not done that in 3 years, but still I believe rehab may help us with at least range of motio n. Extremity has no calf tenderness. SCDs should be placed. DEWEY/MODL Voice ID: [id number] Report ID: [id number]
[2022-06-18] MEDS: PHENOL 1.4% ORAL SPRAY 180ML MM PRN ×2 (15:45→20:51)
[2022-06-18] MEDS ORDERED: VANCOMYCIN 1.5 GM in NA CHLORIDE 0.9% 500 ML IVPB SCH (20:00)
[2022-06-18] MEDS: DULOXETINE 30 MG CAP PO SCH (20:37)
[2022-06-18] MEDS: DOXYCYCLINE 100 MG CAP PO SCH (20:38)
[2022-06-18] MEDS: ATORVASTATIN 40 MG TAB PO SCH (20:38)
[2022-06-18] MEDS: GLUCERNA SHAKE 237 ML CAN PO SCH (20:38)
[2022-06-19] MEDS: Oxycodone HCl/Acetaminophen 1 TAB TAB PO PRN ×5 (00:54→22:21)
[2022-06-19] MEDS: INSULIN -REGULAR HUMAN 50 UNIT/0.5 ML ML SQ SCH ×4 (07:30→21:00)
[2022-06-19 08:10] LABS: Magnesium 1.9 mg/dL (1.8-2.4); Phosphorus 2.9 mg/dL (2.5-4.9); Potassium 4.5 mmol/L (3.5-5.1)
[2022-06-19] MEDS: GLUCERNA SHAKE 237 ML CAN PO SCH ×2 (09:00→22:05)
[2022-06-19] MEDS: NYSTATIN OINT 15 GM TUBE TOP SCH ×2 (09:00→22:06)
--- NOTE | 2022-06-19 09:08 | P.PN ---
Subjective Date of Service: 06/19/22 Primary Care Provider: ZACH COTO Chief Complaint: Infected wound in the right hip region Patient is doing well also no new complaints eating and drinking Review of Systems Unremarkable Physical Examination - Vital Signs Temperature: 97.2 F Blood Pressure: 113/71 Pulse: 113 Respirations: 16 Pulse Ox (%): 97 - Physical Exam General: Alert, In no apparent distress, Oriented x3 Respiratory: Clear to auscultation bilaterally Cardiovascular: No edema, Regular rate/rhythm - Studies Microbiology Data (last 24 hrs): 06/16/22 10:30 Wound - Skin Gram Stain - Final 06/16/22 14:15 Catheterized Urine [place] Count - Final <10,000 CFU/ML. 06/16/22 14:15 Catheterized Urine - Final MIXED MARIELENA. Assessment And Plan - Current Problems (Diagnosis) (1) Abscess Current Visit: Yes Status: Acute Plan: Doing well tolerating p.o. medications wound culture shows gram-negative rods Morganella sensitive to levofloxacin work-up to evaluate for home health and discharge planning (2) Candidal intertrigo Current Visit: Yes Status: Acute Plan: Continue with Diflucan and nystatin topically improving Discharge Plan: Home Plan to discharge in: 24 Hours
[2022-06-19] MEDS: PHENOL 1.4% ORAL SPRAY 180ML MM PRN ×2 (10:31→18:00)
[2022-06-19] MEDS: PANTOPRAZOLE 40MG TABLET PO SCH (10:31)
[2022-06-19] MEDS: buPROPion HCL 100 MG TAB PO SCH (10:31)
[2022-06-19] MEDS: DIVALPROEX DR 250 MG TAB PO SCH ×2 (10:31→22:03)
[2022-06-19] MEDS: DOXYCYCLINE 100 MG CAP PO SCH ×2 (10:32→22:03)
[2022-06-19] MEDS: levoFLOXacin 750 MG TAB PO SCH (10:32)
[2022-06-19] MEDS: FLUCONAZOLE 100 MG TAB PO SCH (10:33)
[2022-06-19 19:19] LABS: Specific Gravity 1.015 (1.005-1.030); Urine Bacteria <20 /HPF (<20); Urine Bilirubin NEGATIVE (Negative); Urine Blood Trace (Negative); Urine Clarity Turbid (Clear); Urine Color Yellow (Yellow); Urine Glucose NEGATIVE (Negative); Urine Protein TRACE (Negative); Urine Urobilinogen Normal (Normal)
[2022-06-19] MEDS: DULOXETINE 30 MG CAP PO SCH (22:02)
[2022-06-19] MEDS: ATORVASTATIN 40 MG TAB PO SCH (22:03)
[2022-06-20] MEDS: Oxycodone HCl/Acetaminophen 1 TAB TAB PO PRN ×2 (05:22→14:20)
[2022-06-20] MEDS: PHENOL 1.4% ORAL SPRAY 180ML MM PRN (05:23)
[2022-06-20] MEDS: INSULIN -REGULAR HUMAN 50 UNIT/0.5 ML ML SQ SCH ×3 (07:30→20:29)
[2022-06-20] MEDS: DOXYCYCLINE 100 MG CAP PO SCH ×2 (08:15→20:31)
[2022-06-20] MEDS: DIVALPROEX DR 250 MG TAB PO SCH ×2 (08:15→20:32)
[2022-06-20] MEDS: PANTOPRAZOLE 40MG TABLET PO SCH (08:15)
[2022-06-20] MEDS: levoFLOXacin 750 MG TAB PO SCH (08:15)
[2022-06-20] MEDS: buPROPion HCL 100 MG TAB PO SCH (08:16)
[2022-06-20] MEDS: FLUCONAZOLE 100 MG TAB PO SCH (08:16)
[2022-06-20] MEDS: GLUCERNA SHAKE 237 ML CAN PO SCH ×2 (08:17→20:32)
[2022-06-20] MEDS: NYSTATIN OINT 15 GM TUBE TOP SCH ×2 (08:18→20:32)
--- NOTE | 2022-06-20 14:22 | PN ---
This lady has a previous infected wound on the right hip area, went to surgical intervention. Right now, we have her in the wound VAC and from our surgical standpoint she can be discharged. I discusse d that with her primary doctor and we will [facility]. Th e antibiotics per primary doctor. She ran out of the wound VAC where she cannot have it. Wet-to-dry dressing is still an alternative. DEWYE/ALICE Voice ID: [id number] Report ID: [id number]
--- NOTE | 2022-06-20 16:12 | P.DS ---
Admission Date: 06/16/22 Discharge Date: 06/20/22 Primary Care Provider: ZACH COTO Disposition: TRANSFER TO SNF - MEDICAL Discharge Condition: FAIR Reason for Admission: Infected wound in the right hip region - Problems (1) Abscess Status: Acute (2) History of stroke Status: Acute (3) Atrial fibrillation Onset Date: 07/22/16 Status: Chronic Qualifiers: Brief History of Present Illness: Mrs. Quiroz is a 77yo female with a pmh of morbid obesity, anemia, CHF, COPD, atrial fibrillation who fell into a CT table a couple of weeks ago. Pt developed a hematoma which began getting red, hard, tender, the area was draining foul smelling exudate. Mrs. Quiroz arrived in the ED at [facility] this morning where Dr. Rosa opened the hematoma and packed the area with Kerlix. Pt will require surgical debridement. Dr. Mckeon evaluated her in the ED and recommended admission for I&D. Patient hospitalized for further management. Hospital Course: Patient admitted to medical floor and started on broad-spectrum IV antibiotics. She was seen and evaluated by Dr. Mckeon who performed incision and drainage. Dr. Mckeon recommended wound VAC which was placed on the wound. Wound culture grew Morganella and Citrobacter sensitive to multiple antibiotic. Antibiotics scaled down to oral doxycycline and Levaquin. Patient deemed stable for discharge per Dr. Mckeon. Vital Signs/Physical Exam: Temp Pulse Resp BP Pulse Ox 96.0 F L 104 H 18 141/89 H 0 L 06/20/22 12:00 06/20/22 14:10 06/20/22 14:10 06/20/22 14:10 06/20/22 04:00 General: Alert, In no apparent distress HEENT: Mucous membr. moist/pink Neck: JVD not distended Respiratory: Clear to auscultation bilaterally, Normal air movement Cardiovascular: Regular rate/rhythm, Normal S1 S2 Gastrointestinal: Soft and benign, Non-distended Neurological: Other (No focal motor deficit.) Laboratory Data at Discharge: WBC 4.30 K/uL (4.3-10.9) 06/17/22 08:12 Hgb 7.9 g/dL (12.0-15.0) L 06/17/22 08:12 Hct 23.7 % (36.0-45.0) L 06/17/22 08:12 Plt Count 144 K/uL (152-406) L 06/17/22 08:12 PT 14.3 SECONDS (9.5-12.5) H 06/17/22 08:12 INR 1.29 06/17/22 08:12 APTT 27.3 SECONDS (24.3-36.9) 06/17/22 08:12 Sodium 141 mmol/L (136-145) 06/19/22 07:38 Potassium 4.5 mmol/L (3.5-5.1) 06/19/22 07:38 BUN 11 mg/dL (7-18) 06/19/22 07:38 Creatinine 0.66 mg/dL (0.55-1.3) 06/19/22 07:38 Glucose 107 mg/dL (74-106) H 06/19/22 07:38 Phosphorus 2.9 mg/dL (2.5-4.9) 06/19/22 07:38 Magnesium 1.9 mg/dL (1.8-2.4) 06/19/22 07:38 Total Bilirubin 0.2 mg/dL (0.2-1.0) 06/17/22 08:12 AST 13 U/L (15-37) L 06/17/22 08:12 ALT 11 U/L (12-78) L 06/17/22 08:12 Alkaline Phosphatase 109 U/L (45-117) 06/17/22 08:12 Home Medications: Acetaminophen [Tylenol] 2 tab PO Q6H PRN 06/18/22 Albuterol Sulfate [Ventolin Hfa] 2 puff IN Q6H PRN 06/18/22 Ascorbic Acid 500 mg PO DAILY 06/18/22 Aspirin Chewable [Aspirin Chewable*] 1 tab PO DAILY 06/18/22 Bisacodyl [Laxative Suppository] 1 supp SP Q8H PRN 06/18/22 Bupropion HCl [Wellbutrin] 1 tab PO DAILY 06/18/22 Capsaicin 0.025 markie TOP Q6H PRN 06/18/22 Divalproex Sodium [Depakote] 1 tab PO BID 06/18/22 Docusate Sodium 1 tab PO BID 06/18/22 Duloxetine HCl 2 cap PO BEDTIME 06/18/22 Lorazepam [Ativan] 1 tab PO DAILY 06/18/22 Menthol [Biofreeze] 1 markie TOP Q6H PRN 06/18/22 Pantoprazole Sodium [Protonix] 1 tab PO DAILY 06/18/22 Polysorbate 80/Glycerin [Refresh Dry Eye Therapy Drops] 2 drop OP QID 06/18/22 Sennosides [Senokot] 1 tab PO BID 06/18/22 Temazepam 1 cap PO BEDTIME 06/18/22 Zinc Gluconate [Zinc] 220 mg PO DAILY 06/18/22 Atorvastatin Calcium [Lipitor] 40 mg PO BEDTIME tab 06/20/22 Doxycycline Hyclate 100 mg PO BID #20 cap 06/20/22 Fluconazole 200 mg PO DAILY #10 tab 06/20/22 Glucerna Shake [Glucerna*] 237 ml PO BID can 06/20/22 Nystatin Oint [Mycostatin 100 Mu/Gm Oint*] 1 appl TOP BID tube 06/20/22 Oxycodone HCl/Acetaminophen [Percocet 5/325 Tab*] 1 tab PO Q4H PRN #15 tab 06/20/22 levoFLOXacin [Levaquin*] 750 mg PO DAILY #7 tab 06/20/22 New Medications: Doxycycline Hyclate 100 mg PO BID #20 cap Fluconazole 200 mg PO DAILY #10 tab Oxycodone HCl/Acetaminophen [Percocet 5/325 Tab*] 1 tab PO Q4H PRN #15 tab PRN Reason: Pain Scale 5-7 (Moderate) Physician Discharge Instructions: Please apply wound vac to I&D wound. Diet: AHA Activity: Fall precautions Followup: Kb Mckeon MD [ACTIVE - CAN ADMIT] - 1 Week Natalia Hua MD [Primary Care Provider] - Time spent managing pt's care (in minutes): 36
[2022-06-20] MEDS: DULOXETINE 30 MG CAP PO SCH (20:31)
[2022-06-20] MEDS: ATORVASTATIN 40 MG TAB PO SCH (20:32)
[2022-06-20 21:46] VITALS: BP 111/65; TEMP 97.7
[2022-06-21 00:04] VITALS: O2SAT 96
[2022-06-21 14:27] LABS: Vitamin D 1,25-Dihydroxy Total 49 pg/mL (18-72); Vitamin D,1,25-OH2, D2 49 pg/mL
== END 2022-06-20 22:40 | DRG 571 ==
LOC: ER 08:56 → ERHOLD 15:25 → 4TH 16:26
PROVIDERS: ADMIT Internal Medicine; ATTEND Internal Medicine
PROC: 0JDL0ZZ Extraction of Right Upper Leg Subcutaneous Tissue and Fascia, Open Approach (ICD-10-PCS; 2022-06-17)
PROC: 0JBL0ZZ Excision of Right Upper Leg Subcutaneous Tissue and Fascia, Open Approach (ICD-10-PCS; principal; 2022-06-17 13:00)
DX: L02.415 Cutaneous abscess of right lower limb (principal); L03.818 Cellulitis of other sites; Z68.42 Body mass index [BMI] 45.0-49.9, adult; I96 Gangrene, not elsewhere classified; E66.01 Morbid (severe) obesity due to excess calories; J44.9 Chronic obstructive pulmonary disease, unspecified; L30.4 Erythema intertrigo; M81.0 Age-related osteoporosis without current pathological fracture; D64.9 Anemia, unspecified; I10 Essential (primary) hypertension; S70.01XA Contusion of right hip, initial encounter; B96.89 Other specified bacterial agents as the cause of diseases classified elsewhere; Z74.01 Bed confinement status; Z88.0 Allergy status to penicillin; Z88.5 Allergy status to narcotic agent; Z88.8 Allergy status to other drugs, medicaments and biological substances; Z90.49 Acquired absence of other specified parts of digestive tract; Z86.73 Personal history of transient ischemic attack (TIA), and cerebral infarction without residual deficits; Z91.040 Latex allergy status; Z91.041 Radiographic dye allergy status; Z91.048 Other nonmedicinal substance allergy status; Z87.891 Personal history of nicotine dependence; Z96.653 Presence of artificial knee joint, bilateral; Z90.710 Acquired absence of both cervix and uterus; Z20.822 Contact with and (suspected) exposure to COVID-19
CPT/HCPCS: 36415; 71045; 80048; 80053; 80076; 80164; 80202; 81001; 81015; 82652; 82947; 83605; 83735; 83880; 84100; 84443; 84484; 85025; 85610; 85730; 86850; 86900; 86901; 87040; 87070; 87077; 87086; 87088; 87186; 87205; 87811; 88304; 93005; 94640; 94760; 96361; 96365; 96366; 96375; 97161; 99284; A4216; J0330; J1160; J1940; J2001; J2185; J2370; J2405; J2704; J2710; J3010; J3370; J3475; J7030; J7040; J7042; J7120

== ENCOUNTER 2022-08-18 16:22 | Inpatient (IN) | payer OTHER ==
--- OUTSIDE RECORDS SUMMARY | 2022-08-18 16:33 | XMS REPORT | Continuity of Care Document ---
:1945 Author Organization [facility] t Address [address] [place] [address] Care Team Providers Name Role Phone Pcp, Patient Does Not Have A Primary Care Physician [id number] Doctor Unassigned, [place] Attending Clinician Unavailable Arnulfo Roper RN Attending [...] y of on with on with 00:00: [place] RVR RVR 00 Medical Branch Anemia Anemia Disease Active Univers associated associated 2-06 it y of with with 00:00: [place] nutritiona nutritiona 00 Me dical l l Branch deficiency deficiency Elevated Elevated Disease Active Unive rs brain brain 2-06 ity of natriureti natriureti [place] c peptide c peptide 00 Medi mike (BNP) (BNP) Branch level level Complicate Complicate Disease Active U nivers d UTI d UTI 2-05 ity of (urinary (urinary 00:00: [place] tract tract 00 Medical infection) infection) Br anch Proteus Proteus Problem Active 2017-102019-04-16 Me moria (organism) (organism) 11-23 13:40:38 l Active 00:00: [place] 09/22/2018 00 Problem 04/16/2019 Urine (ESBL), 09/22/2018
Probl em added by Discern Expert. [facility] LT FEMUR LT FEMUR Diagnosis Active 2017-102018-12-25 Memoria FX,ATRIAL FX,ATRIAL 2 16:32:00 l FIB FIB 00:00: [place] W/RVR,S/P W/RVR,S/P 00 FALL FALL Active 09/21/2018 [facility] LEFT LEFT Diagnosis Active 2017-102018-09-22 Mem oria DISTAL DISTAL 11-22 01:56:00 l FEMUR FEMUR 00:00: [place] FX--S/P FX--S/P 00 FALL FALL Active 09/21/2018 [facility] Vitamin D Vitamin D Disease Active [facility] deficiency deficiency 4-03 Radha kes 00:00: Medical 00 [place] Leucocytos Leucocytos Disease Active [facility] [place] Hypercalce Hypercalce Disease Active [facility] kiki kiki 3-30 [facility] 00 [place] Morbid Morbid Disease Active [facility] obesity obesity 3-30 [facility] [place] Hyponatrem Hyponatrem Disease Active [facility] ia ia 12-26 [facility] Atrial Atrial Disease Active [facility] fibrillati fibrillati - Radha kes on on 00:00: Medical 00 Center Congestive Congestive Disease Active [facility] heart heart - [facility] failure failure 00:00: Medical (CHF) (CHF) 00 Center Acute Acute Disease Active [facility] right MCA right MCA 12-25 [facility] stroke stroke 00:00: Medical 00 Center Total knee Total knee Disease Active U nivers replacemen replacemen 9 it y of t status t status 00:00: [place] 00 Medical Branch Gaby-prost Gaby-prost Problem Active U T hetic hetic [facility]ici femoral femoral ans shaft shaft fracture fracture Hemiplegia Hemiplegi Problem 2019-04-16 Memoria and a and 13:40:38 l hemiparesi hemiparesi He rmann s s following following cerebral cerebral infarction infarction affecting affecting left left non-domina non-domina nt side nt side 04/16/2019 [facility] Chronic Chronic Problem 2019-04-16 Va moria diastolic diastolic 13:40:38 l (congestiv (congestiv He rmann e) heart e) heart failure failure 04/16/2019 [facility] Body mass Body mass Problem 2019-04-16 Memoria index index 13:40:38 l (BMI) (BMI) [place] 45.0-49.9, 45.0-49.9, adult adult 04/16/2019 [facility] Morbid Morbid Problem 2019-04-16 Kaushal muniar (severe) (severe) 13:40:38 l obesity obesity [place]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 04/16/2019 [facility] Acute Acute Problem 2019-04-16 Memor ia posthemorr posthemorr 13:40:38 l hagic hagic [place] anemia anemia 04/16/2019 [facility] Urinary Urinary Problem 2019-04-16 Va moria tract tract 13:40:38 l infection, infection, He rmann site not site not specified specified 04/16/2019 [facility] Fall on Fall on Problem 2019-04-16 Me moria same level same level 13:40:38 l from from [place] slipping, slipping, tripping tripping and and stumbling stumbling without without subsequent subsequent striking striking against against object, object, initial initial encounter encounter 04/16/2019 [facility] Chronic Chronic Problem 2019-04-16 Va moria atrial atrial 13:40:38 l fibrillati fibrillati He rmann on on 04/16/2019 [facility] Dependence Dependenc Problem 2019-04-16 Memoria on e on 13:40:38 l wheelchair wheelchair He rmann 9 [facility] Chronic Chronic Problem 2019-04-16 Me moria obstructiv obstructiv 13:40:38 l e e [place] pulmonary pulmonary disease, disease, unspecifie unspecifie d d 04/16/2019 [facility] Hypertensi Hypertens Problem 2019-04-16 Memoria ve heart rola heart 13:40:38 l disease disease [place] with heart with heart failure failure 04/16/2019 [facility] Obstructiv Problem 2019-04-16 M emoria e sleep Obstructiv 13:40:38 l apnea e sleep [place] (adult) apnea (pediatric (adult) ) (pediatric ) 04/16/2019 [facility] Hyperlipid Hyperlipi Problem 2019-04-16 Memoria logan sarkar, 13:40:38 l unspecifie unspecifie He rmann d d 04/16/2019 [facility] Anxiety Anxiety Problem 2019-04-16 Va moria disorder, disorder, 13:40:38 l unspecifie unspecifie He rmann d d 04/16/2019 [facility] Gastro-eso Gastro-es Problem 2019-04-16 Memoria phageal ophageal 13:40:38 l reflux reflux [place] disease disease without without esophagiti esophagiti s s 04/16/2019 [facility] Vitamin Vitamin Problem 2019-04-16 M emoria B12 B12 13:40:38 l deficiency deficiency He rmann anemia, anemia, unspecifie unspecifie d d 04/16/2019 [facility] Hyperkalem Hyperkale Problem 2019-04-16 Memoria ia kiki 13:40:38 l 04/16/[address] [facility] Thrombocyt Thrombocy Problem 2019-04-16 Memoria belén lees, 13:40:38 l unspecifie unspecifie He rmann d d 04/16/2019 [facility] Proteus Proteus Problem 2019-04-16 Me moria (mirabilis (mirabilis 13:40:38 l ) ) [place] (morganii) (morganii) as the as the cause of cause of diseases diseases classified classified elsewhere elsewhere 04/16/2019 [facility] Personal Personal Problem 2019-04-16 Memoria history of history of 13:40:38 l nicotine nicotine [place] montes dependence dependence 04/16/2019 [facility] Dehydratio Dehydrati Problem 2019-04-16 Memoria n on 13:40:38 l 04/16/[address] [facility] Age-relate Age-relat Problem 2019-04-16 Memoria d ed 13:40:38 l osteoporos osteoporos He rmvalentin is without is without current current pathologic pathologic al al fracture fracture 04/16/2019 [facility] Hypotensio Hypotensi Problem 2019-04-16 Memoria n, on, 13:40:38 l unspecifie unspecifie He rmann d d 04/16/2019 [facility] Essential Essential Problem Resolve 2019-04-16 Memoria hypertensi hypertensi d 13:40:38 l on on [place] (disorder) (disorder) Resolved Problem 04/16/2019 [facility] Syncope Syncope Problem Resolve 2019-04-16 M emorimohamud and and d 13:40:38 l collapse collapse [place] n (disorder) (disorder) Resolved Problem 04/16/2019 [facility] Anxiety Anxiety Problem Active 2019-04-16 Va moria disorder disorder 13:40:38 l (disorder) (disorder) Swapnil rmann Active Problem 04/16/2019 [facility] Chronic Chronic Problem Active 2019-04-16 Va moria atrial atrial 13:40:38 l fibrillati fibrillati He rmann on on (disorder) (disorder) Active Problem 04/16/2019 [facility] Chronic Chronic Problem Active 2019-04-16 Me moria diastolic diastolic 13:40:38 l heart heart [place] failure failure (disorder) (disorder) Active Problem 04/16/2019 [facility] Chronic Chronic Problem Active 2019-04-16 Me moria obstructiv obstructiv 13:40:38 l e lung e lung [place] disease disease (disorder) (disorder) Active Problem 04/16/2019 [facility] Extreme Extreme Problem Active 2019-04-16 Me moria obesity obesity 13:40:38 l with with [place] alveolar alveolar hypoventil hypoventil ation ation (disorder) (disorder) Active Problem 04/16/2019 [facility] Gastroesop Gastroeso Problem Active 2019-04-16 Memoria hageal phageal 13:40:38 l reflux reflux [place] disease disease (disorder) (disorder) Active Problem 04/16/2019 [facility] History of History Problem Active 2019-04-16 Memoria - CVA of - CVA 13:40:38 l (context-d (context-d He rmann ependent ependent category) category) Active Problem 04/16/2019 [facility] Hyperlipid Hyperlipi Problem Active 2019-04-16 Memoria emia demia 13:40:38 l (disorder) (disorder) He rmann Active Problem 04/16/2019 [facility] Hypertensi Hypertens Problem Active 2019-04-16 Memoria ve rola 13:40:38 l disorder, disorder, Herm valentin systemic systemic arterial arterial (disorder) (disorder) Active Problem 04/16/2019 [facility] Obstructiv Obstructi Problem Active 2019-04-16 Memoria e sleep ve sleep 13:40:38 l apnea apnea [place] syndrome syndrome (disorder) (disorder) Active Problem 04/16/2019 [facility] PERIPROSTH PERIPROST Diagnosis Active 2018-12-25 Memoria FRACTURE H FRACTURE 16:32:00 l AROUND AROUND [place] OTHER OTHER INTERNA INTERNA Active [facility] UNSPECIFIE UNSPECIFI Diagnosis Active 2018-12-25 Memoria D ATRIAL ED ATRIAL 16:32:00 l FIBRILLATI FIBRILLATI He rmann ON ON Active [facility] Periprosth Periprost Problem 2019-04-16 Memoria etic hetic 13:40:38 l fracture fracture [place] n around around internal 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, joint, initial initial encounter encounter 04/16/2019 [facility] History of Past Illness Condition [...] closed encounter fracture for closed fracture 10/09/2018 04/16/2019 [facility] Allergies, Adverse Reactions, Alerts Allergy Allergy Status Severity Reaction(s) Onset Inactive Treating Comm ents Source Name Type Date Date Clinician Pregabal Propensi [facility] adverse 00:00: Medical reaction 00 [place] Haloperi Propensi Active Anxiety [facility]27 [facility] Lactate adverse 00:00: Medical reaction 00 [place] s Iodine Propensi Active Itching, [address] [facility] [address] ty to Swelling 3-27 ONLY [facility] adverse 00:00: Medical reaction 00 [place] s Aspirin Propensi Active [facility] (Tartraz ty to 3-26 [facility] ine adverse 00:00: Medical Only) reaction 00 [place] Haloperi Drug Active Anxiety [facility] dol Allergy 3-26 [facility] 00:[facility]: Medical 00 [place] Iodine Propensi Active Hives, Rash [facility] And ty to 3-26 [facility] Iodide adverse 00:00: Medical Containi reaction 00 [facility] s Products Latex Propensi Active [place], [address] [facility] ty to Itching, 3-26 [facility] adverse Rash 00:00: Medical reaction 00 [place] s Morphine Propensi Active Hives, [address] ty to Anxiety, 3-26 blood [facility] adverse Other (See 00:00: pressure Med ical reaction Comments) 00 Cente r s Penicill Drug Active Hives, Rash, [facility] ins Allergy Swelling 3-26 [facility] 00:[facility]: Medical 00 [place] Pregabal Propensi Active Hallucinatio 2015-10 Univers in [...] Medical Branch LATEX DRUG Active Med ITCHING 2014-0 Univers INGREDI 9-10 ity of 00:00: [place] 00 Medical Branch MORPHINE DRUG Active Med Anxiety 2014-0 Univers INGREDI 9-10 ity of 00:00: [place] 00 Medical Branch PENICILL Drug Active Med Rash 0 Univers INS Class 9-10 ity of 00:00: [place] 00 Medical Branch penicill penicill Active Memori a ins ins l [place] morphine morphine Active Memori a l [place] Haldol Haldol Active Memoria l [place] iodine iodine Active Memoria l [place] Latex Latex Active Memoria l [place] Social History Social Habit Start Date Stop Date Quantity Comments Source Exposure to Not sure University of SARS-CoV-2 [facility] (event) [place] Alcohol intake 2016-12-30 2016-12-[address] [facility] es 00:00:00 00:00:00 non-drinker of Medical Ce nter alcohol (finding) Tobacco use and 2015-06-11 2015-06-11 Smokeless tobacco Un iversity of exposure 00:00:00 00:00:00 non-user [facility] Social History 2013-10-18 2013-10-18 [facility] lorenzo 13:16:47 13:16:47 [birth year] MONICA Blakelys 00:00:00 [facility]:00 [facility] Smoking Status Start Date Stop Date Source Never smoker [facility] Medications Ordered Filled Start Stop Current Ordering [...] by ity of tablet 00:00: mouth at [place] 00 bedtime. Medical Branch docusate 2021-0 Yes [...] by ity o f 00:00: mouth at [place] 00 bedtime. Medical Branch metoprolol 0 Yes [...] Medical times Branch daily. ferrous 2021-0 Yes [id number] 325mg Take 1 Uni vers sulfate 2-10 [...] by ity o f 00:00: mouth at [place] 00 bedtime. Medical Branch metoprolol 0 Yes [...] Medical times Branch daily. ferrous 2021-0 Yes [id number] 325mg Take 1 Uni vers sulfate 2-10 [...] by ity of capsule 00:00: mouth 2 (two) Medical times Branch daily. DULoxetine 2021-0 [...] Medical times Branch daily. ferrous 2021-0 Yes [id number] 325mg Take 1 Uni vers sulfate 2-10 [...] (two) Medical times Branch daily. ferrous Yes [id number] 325mg Take 1 Uni vers sulfate 2-10 tablet by ity of (IRON) 325 00:00: mouth [place] mg (65 mg 00 daily. Medical iron) Branch tablet furosemide 2021- No [id number] 20mg Take 1 Univers 20 mg 2-10 03-13 tablet by ity of tablet 00:00: 05:59 mouth [place] 00 :00 daily for Medical 30 days. Branch furosemide 2021- No [id number] 20mg Take 1 Univers 20 mg 2-10 03-13 tablet by ity of tablet 00:00: 05:59 mouth [place] 00 :00 daily for Medical 30 days. Branch furosemide 2021- No [id number] 20mg Take 1 Univers 20 mg 2-10 03-13 tablet by ity of tablet 00:00: 05:59 mouth [place] 00 :00 daily for Medical 30 days. Branch albuterol 2021- No [id number] 2{puff} Inhale 2 Univers 90 2-10 02-26 Puffs ity of mcg/actuati 00:00: 05:59 every 6 [place] on inhaler 00 :00 (six) Medical hours as Branch needed for Wheezing or Shortness of Breath for up to 15 days. albuterol 2021- No [id number] 2{puff} Inhale 2 Univers 90 2-10 02-26 Puffs ity of mcg/actuati 00:00: 05:59 every 6 [place] on inhaler 00 :00 (six) Medical hours as Branch needed for Wheezing or Shortness of Breath for up to 15 days. albuterol 2021- No [id number] 2{puff} Inhale 2 Univers 90 2-10 02-26 Puffs ity of mcg/actuati 00:00: 05:59 every 6 [place] on inhaler 00 :00 (six) Medical hours as Branch needed for Wheezing or Shortness of Breath for up to 15 days. magnesium 2021- No [id number] 400mg Take 400 Univers oxide 420 2-10 02-16 mg by ity of mg Tab 00:00: 05:59 mouth [place] 00 :00 daily for Medical 5 days. Branch magnesium 2021- No [id number] 400mg Take 400 Univers oxide 420 2-10 02-16 mg by ity of mg Tab 00:00: 05:59 mouth [place] 00 :00 daily for Medical 5 days. Branch nitrofurant 2021- No [id number] 100mg Take 1 Univers oin 100 mg 11-11- capsule by it y of capsule 00:00: 05:59 mouth 4 [place] 00 :00 (four) Medical times Branch daily for 2 days. nitrofurant 2021- No [id number] 100mg Take 1 Univers oin 100 mg 11-11- capsule by it y of capsule 00:00: 05:59 mouth 4 [place] 00 :00 (four) Medical times Branch daily for 2 days. LORazepam Yes .25mg 0.25 mg, Uni vers (ATIVAN) 2-09 Oral, ity of tablet 0.25 19:28: BIDPRN, Scar as mg 18 Starting Medical on Mon [place] 11/10/21 at 1328, Until Discontinu ed, Routine, Anxiety, Agitation omeprazole 0 Yes 20mg 20 mg, Unive rs (PRILOSEC) 2 Oral, ity of capsule 20 15:00: DAILY, [place] mg 00 First dose Medical on Mon [place] 11/10/21 at 0900, Until Discontinu ed, Routine melatonin 2021-0 Yes 3mg 3 mg, Univers (MELATIN) 2 Oral, QHS, ity of tablet 3 mg 03:00: First dose [place] 00 on [facility] 11/09/21 at Branch 2100, Until Discontinu ed, Routine metoprolol Yes 50mg 50 mg, Unive rs succinate 11-10 Oral, BID, ity of XL (TOPROL 02:00: First dose [place] XL) tablet 00 on [facility] 50 mg 11/09/21 at Branch 2000, Until Discontinu ed, Routine hydrocortis 0 Yes Topical Uni vers one 2.5 % 11-10 (Apply To ity o f cream 02:00: Affected [place] 00 Areas), Medical BID, First Branch dose on [facility] 11/09/21 at 2000, Until Discontinu ed, Routine nystatin Yes Topical, Unive rs (NYSTOP) 11-10 BID, First ity o f powder 02:00: dose on [place] 00 [facility] 11/09/21 Medical at 2000, Branch Until Discontinu ed, Routine QUEtiapine 0 2021- No 50mg 50 mg, Univ ers (SEROQUEL) 11-10 02-09 Oral, BID, it y of tablet 50 02:00: 14:40 First dose [place] mg 00 :45 on [facility] 11/09/21 at Branch 2000, Until Discontinu ed, Routine montelukast 0 Yes 10mg 10 mg, Univ ers (SINGULAIR) 2-08 Oral, QPM, it y of tablet 10 23:00: First dose [place] mg 00 on [facility] 11/09/21 at Branch 1700, Until Discontinu ed, Routine nitrofurant 2021-0 2021- No 100mg 100 mg, U nivers oin 11-09 02-13 Oral, QID, ity of (MACRODANTI 21:45: 17:59 20 doses, [place] N) capsule 00 :00 First dose Med ical 100 mg on [facility] 11/09/21 at 1545, Last dose on 11/14/21 at 0800, Routine
Reason for Anti-Infec tive: Empiric Therapy for Suspected Infection< br>Empiric Therapy Site: Urine
D uration of therapy: 7 days magnesium 2022-0 Yes 400mg 400 mg, Univ ers oxide 2-08 Oral, BID, ity of (MAG-OX 21:15: First dose [place] 400) tablet 00 on [facility] l 400 mg 11/09/21 at Branch 1515, Until Discontinu ed, Routine DULoxetine 2021-0 Yes 60mg 60 mg, Unive rs (CYMBALTA) 2-08 Oral, ity of capsule 60 21:15: DAILY, [place] mg 00 First dose Medical on [facility] 11/09/21 at 1515, Until Discontinu ed, Routine sennosides 2021-0 Yes 8.6mg 8.6 mg, Uni vers (SENOKOT) 2-08 Oral, BID, ity of tablet 8.6 21:15: First dose [place] mg 00 on [facility] 11/09/21 at Branch 1515, Until Discontinu ed, Routine docusate 2021-0 Yes 100mg 100 mg, Unive rs (COLACE) 2-08 Oral, BID, ity o f capsule 100 21:15: First dose [place] mg 00 on [facility] 11/09/21 at Branch 1515, Until Discontinu ed, Routine buPROPion 2021-0 Yes 75mg 75 mg, Univer s (WELLBUTRIN 2-08 Oral, ity of ) tablet 75 21:15: DAILY, [place] mg 00 First dose Medical on [facility] 11/09/21 at 1515, Until Discontinu ed, Routine gabapentin 2022-0 Yes 100mg 100 mg, Uni vers (NEURONTIN) 2-08 Oral, TID, it y of capsule 100 21:15: First dose [place] mg 00 on [facility] 11/09/21 at Branch 1515, Until Discontinu ed, Routine furosemide 202-0 Yes 20mg 20 mg, IV Un monalisa (LASIX) 2-08 Push, ity of injection 21:15: Q8HA2, [place] 20 mg 00 First dose Medical on [facility] 11/09/21 at 1515, Until Discontinu ed, MARIA ELENA LORazepam No .25mg 0.25 mg, Un monalisa (ATIVAN) 11-09 Oral, TID, ity of tablet 0.25 21:00: 14:40 First dose [place] mg 00 :39 on [facility] 11/09/21 at Branch 1500, Until Discontinu ed, Routine DULoxetine No 60mg Take 60 mg Univers (CYMBALTA) 11-09 by mouth 2 it y of 60 mg 15:08: 00:00 (two) [place] capsule 27 :00 times Medical daily. Branch montelukast 10mg Take 10 mg Univers 10 mg 11-09 by mouth. ity of tablet 15:08: 00:00 [place] 27 :00 Medical Branch clotrimazol No Apply to U lianaers e 1 % 11-09 area(s) at ity of topical 15:08: 00:00 bedtime. [place] cream 27 :00 Medical Branch QUEtiapine 50mg Take 50 mg Univers (SEROQUEL) 11-09 by mouth 2 it y of 50 mg 15:08: 00:00 (two) [place] tablet 27 :00 times Medical daily. Branch Diclofenac No Apply to Un monalisa Sodium 11-09 area(s). ity of (VOLTAREN) 15:08: 00:00 [place] 1 % gel 27 :00 Medical Branch lidocaine 2021- No 1{patch Apply 1 U nivers (LIDODERM) 11-09 } Patch to ity of 5 % (700 15:08: 00:00 area(s) [place] mg/patch) 27 :00 once now. Medic al patch Branch HYDROcodone 2021- No Take by Un monalisa -acetaminop 11-09- mouth ity of hen (NORCO) 15:08: 00:00 every 6 [place] 10-325 mg 27 :00 (six) Medical tablet hours as Branch needed. LORazepam 2021- No .5mg Take 0.5 Uni vers (ATIVAN) 11-0908 mg by ity of 0.5 mg 15:08: 00:00 mouth. [place] tablet 27 :00 Medical Branch metoprolol 2021- No 25mg Take 25 mg Univers tartrate 25 11-09 by mouth 2 i ty of mg [...] of Breath. magnesium 2021- No Take by [facility] ers hydroxide 11-09-08 mouth. ity of (MILK OF 15:08: 00:00 [place] MAGNESIA 27 :00 Medical ORAL) Branch cranberry 2021- No Take by [facility] ers fruit 11-09 mouth. ity of (CRANBERRY) 15:08: 00:00 [place] 450 mg Tab 27 :00 Medical Branch buPROPion 2021- No 75mg Take 75 mg U nivers 75 mg 11-09 by mouth 3 ity of tablet 15:08: 00:00 (three) [place] 27 :00 times Medical daily. Branch docusate 2021- No 100mg Take 100 Uni vers 100 mg 11-09-08 mg by ity of capsule 15:08: 00:00 mouth [place] 27 :00 daily. Medical Branch bisacodyL 2021- No 10mg Insert 10 Un monalisa 10 mg 11-09- mg into ity of suppository 15:08: 00:00 rectum at [place] 27 :00 bedtime as Medical needed. Branch vitamin 2021- No 500ug Take 500 Univ ers B-12 11-09 mcg by ity of (VITAMIN 15:08: 00:00 mouth [place] B-12) 500 27 :00 daily. Medical mcg tablet Branch atorvastati 2021- No 80mg Take 80 mg Univers n 80 mg 11-09 by mouth ity of tablet 15:08: 00:00 at [place] 27 :00 bedtime. Medical Branch Lactobacill 2021- No Take by Un monalisa us 11-09 mouth. ity of acidophilus 15:08: 00:00 [place] (ACIDOPHILU 27 :00 Medical S ORAL) Branch ondansetron 2021- No 4mg Take 4 mg Univers 4 mg tablet 11-09 by mouth ity of 15:08: 00:00 every 8 [place] 27 :00 (eight) Medical hours as Branch needed. clopidogreL 2021- No 75mg Take 75 mg Univers 75 mg 11-09 by mouth ity of tablet 15:08: 00:00 daily. [place] 27 :00 Medical Branch omeprazole 2021- No 20mg Take 20 mg Univers 20 mg 11-09 by mouth ity of capsule 15:08: 00:00 daily. [place] 27 :00 Medical Branch melatonin 3 2021- No 3mg Take 3 mg Univers mg tablet 11-09 by mouth ity o f 15:08: 00:00 at [place] 27 :00 bedtime. Medical Branch losartan 2021- No 50mg Take 50 mg Un monalisa (COZAAR) 50 11-09 by mouth ity of mg tablet 15:08: 00:00 daily. [place] 22 :00 Medical Branch carvedilol 2021- No 6.25mg Take 6.25 Univers (COREG) 11-09-05 mg by ity of 6.25 mg 15:08: 00:00 mouth 2 [place] tablet 22 :00 (two) Medical times Branch daily. oxazepam 2021- No 30mg Take 30 mg Un monalisa (SERAX) 30 11-09- by mouth 4 it y of mg capsule 15:08: 00:00 (four) [place] 22 :00 times Medical daily. Branch furosemide 80mg Take 80 mg Univers (LASIX) 80 11-09 by mouth ity of mg tablet 15:08: 00:00 daily. [place] 22 :00 [facility] diclofenac 75mg Take 75 mg Univers (VOLTAREN) 11-09 by mouth ity of 75 mg EC 15:08: 00:00 daily. [place] tablet : [facility] atorvastati Yes 40mg 40 mg, Univ ers n (LIPITOR) 208 Oral, QHS, it y of tablet 40 03:00: First dose [place] mg 00 on [facility] 11/08/21 at [place] 2100, Until Discontinu ed, Routine vancomycin No 15mg/kg 1,500 mg Univers 1500 mg in 11-08 (rounded ity of NS 500 mL 18:15: 21:32 from [place] IV 00 :52 2,131.5 mg Medical Piggyback = 15 mg/kg Bran ch RTU 1,500 ?142.1 mg kg), IV Piggyback, Q12H ABX, First dose on [facility] 11/08/21 at 1215, Until Discontinu ed, Administer over 90 Minutes
Reason for Anti-Infec tive: Documented Infection< br>Documen janine Infection Site: Urine
D uration of Therapy: 7 days potassium, No 2{packe 2 Packet, Univers sodium 11-08 t} Oral, ity of phosphates 15:15: 16:00 ONCE, 1 Scar as (PHOS-NAK) 00 :00 dose, On Medic al [phone] [facility] 11/08/21 Br anch mg packet 2 at 0915, Packet Routine apixaban Yes 5mg 5 mg, Univers (ELIQUIS) 11-08 Oral, BID, ity of tablet 5 mg 02:00: First dose [place] 00 on [facility] 11/07/21 at Branch 2000, Until Discontinu ed, Routine
Indicatio ns: Non-Valvul ar Atrial Fibrillati on phosphorus 2021- No 250mg 1 tablet U mehdi (K PHOS 11-07- (250 mg), ity of NEUTRAL) 20:00: 19:27 [...] No 25mg 25 mg, Univ ers tartrate 11-07-08 Oral, Q8H, ity of (LOPRESSOR) 18:30: 20:58 First dose [place] tablet 25 00 :06 on [facility] mg 11/07/21 at Branch 1230, Until Discontinu ed, Routine sulfur 2021- No [id number] 5mL 5 mL, Unive rs hexafluorid [id number] Intravenou i ty of e microsphr 15:30: 15:30 s, ONCE, 1 [place] (LUMASON) 00 :00 dose, On Medica l injection 5 11/07/21 Br anch mL at 0930, Routine
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 member approving Restricted medication : KRYSTYNA JAEGER aspirin Yes 81mg 81 mg, Univers chewable 11-07 Oral, ity of tablet 81 15:00: DAILY, [place] mg 00 First dose Medical on Sun Branch 11/07/21 at 0900, Until Discontinu ed, Routine enoxaparin 2021- No 1mg/kg 129 mg Un monalisa (LOVENOX) 11-07- (rounded ity o f injection 15:00: 18:25 from 131.5 [place] 129 mg 00 :57 mg = 1 Medical mg/kg Branch ?131.5 kg), Subcutaneo us, DAILY, First dose (after last modificati on) on 11/07/21 at 0900, Until Discontinu ed, Routine HYDROcodone Yes 1{tbl} 1 tablet, Univers -acetaminop 11-07 Oral, ity of hen (NORCO) 12:25: Q6HPRN, Scar as 10-325 mg 02 Starting Medica l tablet 1 on Sun [facility] tablet 11/07/21 at 0625, Until Discontinu ed, Routine, Pain (scale 7-10) albuterol Yes 2{puff} 2 Puff, Un monalisa (VENTOLIN) 2-06 Inhalation ity of inhaler 2 04:48: , Q6HPRN, Scra as Puff 58 Starting Medical on Sat Branch 11/06/21 at 2248, Until Discontinu ed, Routine, Wheezing, Shortness of Breath diltiazem 2021- No 20mg 20 mg, Unive rs (CARDIZEM 11-07 02-06 Slow IV ity of IV) 03:30: 02:48 Push, [place] injection 00 :00 ONCE, 1 Medical 20 mg dose, On Branch 11/06/21 at 2130, Routine
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
Reas on for Anti-Infec tive: Empiric Therapy for Suspected Infection< br>Empiric Therapy Site: Urine
D uration of therapy: 72 hours acetaminoph Yes 650mg 650 mg, Un monalisa en 2-06 Oral, ity of (TYLENOL) 00:47: Q6HPRN, [place] tablet 650 46 Starting Medic al mg on Sat Branch 11/06/21 at 1847, Until Discontinu ed, Routine, Pain (scale 1-3) NaCl 0.9% 2021-0 2021- No 500mL at 999 Univ ers [...] X 6 l 21:23: day, # 6 [place] 00 syr, 0 Refill(s), other enoxaparin 2017-10 No 50 mg = Kaushal munira 60 mg/0.6 2-27 0.5 mL, l mL 21:23: SUB-Q, [place] subcutaneou 00 [id number], s solution X 21 day, # 11 mL, 0 Refill(s), other tizanidine 2017-10 Yes 2 mg = 1 Mem oria 2 mg oral 2-27 tab, PO, l tablet 21:23: Q6H, PRN [place] 00 Muscle Spasms, 0 Refill(s) tiotropium 2017-10 Yes 18 Memoria 2-27 microgram, l 21:23: INHALATION [place] 00 , RDaily, 0 Refill(s) sennosides, 2017-10 Yes 17.2 mg = M emoria NURSING HOME 8.6 MG 2-27 2 tab, PO, l Oral Tablet 21:23: Bedtime, 0 [place] 00 Refill(s) pantoprazol 2017-10 Yes 40 mg [...] 325 mg = 1 Memoria MG Enteric -27 tab, PO, l Coated 21:23: Daily, 0 [place] Tablet 00 Refill(s) Albuterol 2017-10 Yes 3 mL, NEB, Me moria 0.833 MG/ML 11-28 PRN, PRN l / 21:23: Respirator [place] Ipratropium 00 y Pathway, [place] 0 0.167 MG/ML Refill(s) Inhalant Solution [DuoNeb] Acetaminoph 2017-10 Yes 1,000 mg = Memoria en 500 MG 27 2 tab, PO, l Oral Tablet 21:23: Q6Hnow, 0 H [place] 00 Refill(s) Oxycodone 2017-10 No 5 mg = 1 Kaushal munira Hydrochlori - tab, PO, l de 5 MG 21:23: Q6H, PRN [place] n Oral Tablet 00 Pain Score 7-10, # 25 tab, 0 Refill(s), other POLYETHYLEN 2017-10 Yes 17 gm = 1 M emoria E GLYCOL 11-28 pkt, PO, l 3350 21:23: Daily, 0 [place] 00 Refill(s) multivitami 2017-10 Yes 1 tab, PO, Memoria n 11-28 Daily, 0 l 21:23: Refill(s) [place] 00 metoprolol 2017-10 Yes 12.5 mg = Me moria tartrate 25 -27 0.5 tab, l mg oral 21:23: PO, BID, 0 Herm valentin tablet 00 Refill(s) melatonin 3 2017-10 Yes 3 mg = 1 Me moria mg oral -27 tab, PO, l tablet 21:23: Bedtime, [place] 00 PRN Insomnia, 0 Refill(s) Lidocaine 2017-10 Yes 1 patch, Kaushal munira Hydrochlori - TOP, l de 0.05 21:23: Daily, [place] MG/MG 00 Remove Transdermal after 12 Patch hours, 0 [Lidoderm] Refill(s) gabapentin 2017-10 Yes 100 mg = 1 M emoria 100 MG Oral 27 cap, PO, l Capsule 21:23: Q8Hnow, 0 Merv[place] nn 00 Refill(s) ertapenem 1 2017-10 No 1 gm, IV, M emoria g injection 2-27 Q24H, X 6 l 21:23: day, # 6 [place] 00 syr, 0 Refill(s), other enoxaparin 2017-10 No 50 mg = Kaushal munira 60 mg/0.6 2-27 0.5 mL, l mL 21:23: SUB-Q, [place] subcutaneou 00 [id number], s solution X 21 day, # 11 mL, 0 Refill(s), other tizanidine 2017-10 Yes 2 mg = 1 Mem oria 2 mg oral 2-27 tab, PO, l tablet 21:23: Q6H, PRN [place] 00 Muscle Spasms, 0 Refill(s) tiotropium 2017-10 Yes 18 Memoria 2-27 microgram, l 21:23: INHALATION [place] 00 , RDaily, 0 Refill(s) sennosides, 2017-10 Yes 17.2 mg = M emoria NURSING HOME 8.6 MG 2-27 2 tab, PO, l Oral Tablet 21:23: Bedtime, 0 [place] 00 Refill(s) pantoprazol 2017-10 Yes 40 mg = 1 M emoria e 40 mg 2-27 tab, PO, l oral 21:23: Before [place] enteric 00 Breakfast, coated 0 tablet Refill(s) Docusate 2017-10 Yes 100 mg = 1 Mem oria Sodium 100 2-27 cap, PO, l MG Oral 21:23: BID, 0 [place] Capsule 00 Refill(s) Aspirin 325 2017-10 Yes 325 mg = 1 Memoria MG Enteric 2-27 tab, PO, l Coated 21:23: Daily, 0 [place] Tablet 00 Refill(s) Albuterol 2017-10 Yes 3 mL, NEB, Me moria 0.833 MG/ML 2-27 PRN, PRN l / 21:23: Respirator [place] Ipratropium [address], [place] 0 0.167 MG/ML Refill(s) Inhalant Solution [DuoNeb] Acetaminoph 2017-10 Yes 1,000 mg = Memoria en 500 MG 2-27 2 tab, PO, l Oral Tablet 21:23: Q6Hnow, 0 H ermann 00 Refill(s) Oxycodone 2017-10 No 5 mg = 1 Kaushal munira Hydrochlori 2-27 tab, PO, l de 5 MG 21:23: Q6H, PRN [place] n Oral Tablet 00 Pain Score 7-10, # 25 tab, 0 Refill(s), other POLYETHYLEN 2017-10 Yes 17 gm = 1 M emoria E GLYCOL 11-28 pkt, PO, l 3350 21:23: Daily, 0 [place] 00 Refill(s) multivitami 2017-10 Yes 1 tab, PO, Memoria n -27 Daily, 0 l 21:23: Refill(s) [place] metoprolol 2017-10 Yes 12.5 mg = Me moria tartrate 25 11-28 0.5 tab, l mg oral 21:23: PO, BID, 0 Herm valentin tablet 00 Refill(s) melatonin 3 2017-10 Yes 3 mg = 1 Me moria mg oral 11-28 tab, PO, l tablet 21:23: Bedtime, [place] 00 PRN Insomnia, 0 Refill(s) Lidocaine 2017-10 Yes 1 patch, Kaushal munira Hydrochlori 11-28 TOP, l de 0.05 21:23: Daily, Leo MG/MG 00 Remove Transdermal after 12 Patch hours, 0 [Lidoderm] Refill(s) Lovenox 2017-10 No Notes: [place] 2-27 Nurse to l 16:00: ensure [place] 00 documentat ion of patient education per anticoagul ation policy. (Same as: Lovenox) Lovenox 2017-10 No Notes: [place] 2-27 Nurse to l 16:00: ensure [place] 00 documentat ion of patient education per anticoagul ation policy. (Same as: Lovenox) heparin 2017-10 No Notes: Memoria 2-27 porcine l 06:00: heparin [place] 00 heparin 2017-10 No Notes: Memoria 2-27 porcine l 06:00: heparin [place] 00 remove 2017-10 No Notes: Memoria patch - Remove l 03:00: patch 12 [place] 00 hours after applicatio n each day. Eliquis 2017-10 No 5 mg, Memoria 27 Route: PO, l 03:00: Drug form: [place] 00 TAB, Q12H, Dosing Weight 136, kg, Start date: 09/26/18 21:00:00 ROLL TENDER, Duration: 30 day, Stop date: 10/26/18 9:00:00 ROLL TENDER remove 2017-10 No Notes: Memoria patch 2-27 Remove l 03:00: patch 12 [place] 00 hours after applicatio n each day. Eliquis 2017-10 No 5 mg, Memoria 2-27 Route: PO, l 03:00: Drug form: [place] 00 TAB, Q12H, Dosing Weight 136, kg, Start date: 09/26/18 21:00:00 ROLL TENDER, Duration: 30 day, Stop date: 10/26/18 9:00:00 ROLL TENDER Aspirin 2017-10 No Notes: (Do Kaushal munira 2-26 Not Crush) l 21:00: Do not [place] 00 crush or chew. Aspirin 2017-10 No Notes: (Do Kaushal munira 2-26 Not Crush) l 21:00: Do not [place] 00 crush or chew. ertapenem 2017-10 No Notes: Memori a 2-26 (Same as: l 16:00: INVanz) [place] 00 Refrigerat e. NOT COMPATIBLE WITH D5W. Stable in refrigerat or for 24 hours MEDICATION WASTE Product Size: 1000 mg Product Wasted: ___ mg ertapenem 2017-10 No Notes: Memori a 2-26 (Same as: l 16:00: INVanz) [place] 00 Refrigerat e. NOT COMPATIBLE WITH D5W. Stable in refrigerat or for 24 hours MEDICATION WASTE Product Size: 1000 mg Product Wasted: ___ mg Lidocaine 2017-10 No Notes: Memori a Hydrochlori 2-26 Apply only l de 0.05 15:00: once for [place] n MG/MG 00 up to 12 Transdermal hours in a Patch 24-hour [Lidoderm] period (12 hours on and 12 hours off). (Same as: Lidoderm) "Remove old patch before applicatio n of new patch" multivitami 2017-10 No Notes: Kaushal munira n 2-26 (Same l 15:00: as:Thera) [place] 00 WASTE: F/P - Black; E - Municipal Trash Bin Take with food. Lidocaine 2017-10 No Notes: Memori a Hydrochlori 2-26 Apply only l de 0.05 15:00: once [...] food. Dulcolax 2017-10 No Notes: Memoria Laxative 2- (Same As: l 14:58: Dulcolax, [place] Bisco-Lax) Dulcolax 2017-10 No Notes: Memoria Laxative 2- (Same As: l 14:58: Dulcolax, [place] 00 Bisco-Lax) heparin 2017-10 No Notes: Memoria 2-25 porcine l 22:00: heparin heparin 2017-10 No Notes: Memoria 2-25 porcine l 22:00: heparin Plavix 2017-10 No Notes: Memoria 2-25 (Same As: l 19:44: Plavix) [place] Plavix 2017-10 No Notes: Memoria 2-25 (Same As: l 19:44: Plavix) [place] 00 Magic 2017-10 No Notes: Memoria Mouthwash 2-25 Magic l (Benadryl/L 15:21: mouth wash [place] idocaine/Ma 00 contains:B alox/) enadryl/Li 1:1:1 docaine/Ma alox/) 1:1:1; total volume 5 ml Magic 2017-10 No Notes: Memoria Mouthwash 2-25 Magic l (Benadryl/L 15:21: mouth wash [place] idocaine/Ma 00 contains:B alox/) enadryl/Li 1:1:1 docaine/Ma alox/) 1:1:1; total volume 5 ml Vancomycin 2017-10 No 2000 mg: Me moria 2-25 infuse l 07:00: over 2.5 [place] 00 hours For adult patients only: Round to nearest 250 mg per Medical Staff approval MEDICATION WASTE Product Size: 1000 mg Product Wasted: ___ mg Vancomycin 2017-10 No 2000 mg: Me moria 2-25 infuse l 07:00: over 2.5 [place] 00 hours For adult patients only: Round to nearest 250 mg per Medical Staff approval MEDICATION WASTE Product Size: 1000 mg Product Wasted: ___ mg Cefazolin 2017- No 3,000 mg, Mem oria 2-25 150 mL, l 02:00: Route: [place] 00 IVPB, Drug form: INJ, ABXQ8H, Dosing Weight 136, kg, Start date: 09/24/18 20:00:00 ROLL TENDER, Duration: 3 doses or times, Stop date: 09/25/18 12:00:00 ROLL TENDER, ABX Indication : Surgical Prophylaxi s Cefazolin 2017-10 No 3,000 mg, Mem oria 2-25 150 mL, l 02:00: Route: IVPB, Drug form: INJ, ABXQ8H, Dosing Weight 136, kg, Start date: 09/24/18 20:00:00 ROLL TENDER, Duration: 3 doses or times, Stop date: 09/25/18 12:00:00 ROLL TENDER, ABX Indication : Surgical Prophylaxi s Lovenox 2017-10 No Notes: Memoria 2-25 (Same as: l 00:30: Lovenox) Lovenox 2017-10 No Notes: Memoria 2-25 (Same as: l 00:30: Lovenox) tramadol 2017-10 No Notes: Not Mem oria hydrochlori 2-25 to exceed l de 50 MG 00:00: 400mg/day. Her hernandez Oral Tablet 00 (Same As: Ultram) tramadol 2017-10 No Notes: Not Mem oria hydrochlori 2-25 to exceed l de 50 MG 00:00: 400mg/day. Her hernandez Oral Tablet 00 (Same As: Ultram) metoprolol 2017-10 No Notes: Memor ia tartrate 2-24 (Same as: l 23:19: Lopressor) 12.5 mg=1/2 X 25 mg TAB metoprolol 2017-10 No Notes: Memor ia tartrate 2-24 (Same as: l 23:19: Lopressor) 12.5 mg=1/2 X 25 mg TAB Neurontin 2017-10 No Notes: Memori a 2-24 (Same as: l 23:00: Neurontin) CeleBREX 2017-10 No Notes: Memoria 2-24 NSAID. l 23:00: Please check indication . Not for seizure. (Same As: CeleBREX) Neurontin 2017-10 No Notes: Memori a 2-24 (Same as: l 23:00: Neurontin) CeleBREX 2017-10 No Notes: Memoria 2-24 NSAID. l 23:00: Please check indication . Not for seizure. (Same As: CeleBREX) Metoprolol 2017-10 No 2 mg, Memori a 2-24 Route: IV, l 22:46: ONCE, Dosing Weight 136, kg, Priority: STAT, Start date: 09/24/18 16:46:00 ROLL TENDER, Stop date: 09/24/18 16:46:00 ROLL TENDER Metoprolol 2017-10 No 2 mg, Memori a 2-24 Route: IV, l 22:46: ONCE, Dosing Weight 136, kg, Priority: STAT, Start date: 09/24/18 16:46:00 ROLL TENDER, Stop date: 09/24/18 16:46:00 ROLL TENDER Oxycodone 2017-10 No Notes: Memori a Hydrochlori 2-24 (Same as: l de 5 MG 21:47: Roxicodone Herm valentin Oral Tablet ) Oxycodone 2017-10 No Notes: Memori a Hydrochlori [...] 20:42: Apresoline ) Push over 5 minutes Promethazin 2017-10 No Notes: Do M emoria [...] ondansetron 2017-10 No Route: IV, Memoria (ANES) 2-24 Drug form: l 20:29: INJ, ONCE, [place] 00 Stop date: 09/24/18 14:29:00 ROLL TENDER sugammadex 2017-10 No Route: IV, M emoria (ANES) 2-24 Drug form: l 20:29: SOLN, [place] 00 ONCE, Stop date: 09/24/18 14:29:00 ROLL TENDER ondansetron 2017-10 No Route: IV, Memoria (ANES) 2-24 Drug form: l 20:29: INJ, ONCE, [place] 00 Stop date: 09/24/18 14:29:00 ROLL TENDER sugammadex 2017-10 No Route: IV, M emoria (ANES) 2-24 Drug form: l 20:29: SOLN, [place] 00 ONCE, Stop date: 09/24/18 14:29:00 ROLL TENDER sugammadex 2017-10 No Notes: Memor ia 2-24 (Same as: l 19:54: [place]) sugammadex 2017-10 No Notes: Memor ia 2-24 (Same as: l 19:54: [place]) dexamethaso 2017-10 No Route: IV, Memoria ne (ANES) 2-24 Drug form: l 19:53: INJ, ONCE, [place] 00 Stop date: 09/24/18 13:53:00 ROLL TENDER dexamethaso 2017-10 No Route: IV, Memoria ne (ANES) 2-24 Drug form: l 19:53: INJ, ONCE, [place] 00 Stop date: 09/24/18 13:53:00 ROLL TENDER acetaminoph 2017-10 No Route: IV, Memoria en (ANES) 2-24 Drug form: l 10 mg 19:12: INJ, Start [place] n date: 09/24/18 13:12:00 ROLL TENDER, Stop date: 09/24/18 14:12:00 ROLL TENDER acetaminoph 2017-10 No Route: IV, Memoria en (ANES) 2-24 Drug form: l 10 mg 19:12: INJ, Start [place] n date: 09/24/18 13:12:00 ROLL TENDER, Stop date: 09/24/18 14:12:00 ROLL TENDER fentaNYL 2017-10 No Route: IV, Mem oria (ANES) 2-24 Drug form: l 19:04: INJ, ONCE, Stop date: 09/24/18 13:04:00 ROLL TENDER rocuronium 2017-10 No Route: IV, M emoria (ANES) 2- Drug form: l 19:04: INJ, ONCE, Stop date: 09/24/18 13:04:00 ROLL TENDER propofol 2017-10 No Route: IV, Mem oria (ANES) 2-24 Drug form: l 19:04: INJ, ONCE, Stop date: 09/24/18 13:04:00 ROLL TENDER lidocaine 2017-10 No Route: IV, Me moria (ANES) 2- Drug form: l 19:04: INJ, ONCE, [place] 00 Stop date: 09/24/18 13:04:00 ROLL TENDER fentaNYL 2017-10 No Route: IV, Mem oria (ANES) 2-24 Drug form: l 19:04: INJ, ONCE, [place] 00 Stop date: 09/24/18 13:04:00 ROLL TENDER rocuronium 2017-10 No Route: IV, M emoria (ANES) 2-24 Drug form: l 19:04: INJ, ONCE, Stop date: 09/24/18 13:04:00 ROLL TENDER propofol 2017-10 No Route: IV, Mem oria (ANES) 2-24 Drug form: l 19:04: INJ, ONCE, [place] Stop date: 09/24/18 13:04:00 ROLL TENDER lidocaine 2017-10 No Route: IV, Me moria (ANES) 2-24 Drug form: l 19:04: INJ, ONCE, [place] 00 Stop date: 09/24/18 13:04:00 ROLL TENDER ceFAZolin 2017-10 No Route: IV, Me moria (ANES) 2-24 Drug form: l 18:48: INJ, ONCE, [place] 00 Stop date: 09/24/18 12:48:00 ROLL TENDER ceFAZolin 2017-10 No Route: IV, Me moria (ANES) 2-24 Drug form: l 18:48: INJ, ONCE, [place] 00 Stop date: 09/24/18 12:48:00 ROLL TENDER vancomycin 2017-10 No Route: IV, M emoria (ANES) 1000 - Drug form: l mg 18:23: INJ, Start [place] date: 09/24/18 12:23:00 ROLL TENDER, Stop date: 09/24/18 13:23:00 ROLL TENDER vancomycin 2017-10 No Route: IV, M emoria (ANES) 1000 -24 Drug form: l mg 18:23: INJ, Start [place] date: 09/24/18 12:23:00 ROLL TENDER, Stop date: 09/24/18 13:23:00 ROLL TENDER phenylephri 2017-10 No Route: IV, Memoria ne (ANES) 2-24 Drug form: l 100 17:52: INJ, Start Leo microgram date: 09/24/18 11:52:00 ROLL TENDER, Stop date: 09/24/18 12:52:00 ROLL TENDER phenylephri 2017-10 No Route: IV, Memoria ne (ANES) 2-24 Drug form: l 100 17:52: INJ, Start Leo microgram date: 09/24/18 11:52:00 ROLL TENDER, Stop date: 09/24/18 12:52:00 ROLL TENDER Lactated 2017-10 No Route: IV, Mem oria Ringers 2-24 Total l Injection 17:40: Volume: Mervat nn IV (ANES) 00 1,000, 1000 mL Start date: 09/24/18 11:40:00 ROLL TENDER, Stop date: 09/24/18 12:40:00 ROLL TENDER Lactated 2017-10 No Route: IV, Mem oria Ringers 2-24 Total l Injection 17:40: Volume: Mervat nn IV (ANES) 00 1,000, 1000 mL Start date: 09/24/18 11:40:00 ROLL TENDER, Stop date: 09/24/18 12:40:00 ROLL TENDER normal 2017-10 No 1,000 mL, Memori a saline 0.9% 2-24 Rate: 75 l IV 1,000 mL 17:09: ml/hr, Herm valentin 00 Infuse over: 13.3 hr, Route: IV, Dosing Weight 136 kg, Total Volume: 1,000, Start date: 09/24/18 11:09:00 ROLL TENDER, Duration: 30 day, Stop date: 10/24/18 11:08:00 ROLL TENDER, 2.56, m2 normal 2017-10 No 1,000 mL, Memori a saline 0.9% 2-24 Rate: 75 l IV 1,000 mL 17:09: ml/hr, Herm valentin 00 Infuse over: 13.3 hr, Route: IV, Dosing Weight 136 kg, Total Volume: 1,000, Start date: 09/24/18 11:09:00 ROLL TENDER, Duration: 30 day, Stop date: 10/24/18 11:08:00 ROLL TENDER, 2.56, m2 NS (Bolus) 2017-10 No 500 mL, Kaushal munira IV 2-24 500 ml/hr, l 11:42: Infuse [place] 00 Over: 1 hr, Route: IV, 500, Drug form: INJ, ONCE, Priority: STAT, Dosing Weight 136 kg, Start date: 09/24/18 5:42:00 ROLL TENDER, Stop date: 09/24/18 5:42:00 ROLL TENDER NS (Bolus) 2017-10 No 500 mL, Kaushal munira IV 2-24 500 ml/hr, l 11:42: Infuse [place] 00 Over: 1 hr, Route: IV, 500, Drug form: INJ, ONCE, Priority: STAT, Dosing Weight 136 kg, Start date: 09/24/18 5:42:00 ROLL TENDER, Stop date: 09/24/18 5:42:00 ROLL TENDER AMIODarone 2017-10 No 2 mg/ml. Me moria 900 mg in -23 Use Glass l D5W 500 ml 17:45: Bottle or He rmann IV 900 mg + 00 Non PVC Dextrose 5% Bag "Use in Water IV 0.22 482 mL micron in-line filter" MEDICATION WASTE Product Size: 900 mg Product Wasted: ___ mg AMIODarone 2017-10 No 2 mg/ml. Me moria 900 mg in 2-23 Use Glass l D5W 500 ml 17:45: Bottle or He rmann IV 900 mg + 00 Non PVC Dextrose 5% Bag "Use in Water IV 0.22 482 mL micron in-line filter" MEDICATION WASTE Product Size: 900 mg Product Wasted: ___ mg Amiodarone 2017-10 No 2 mg/ml. Me moria 11-24 "Recommend l 17:44: ation: Use [place] 00 an in-line filter during administra tion for continuous infusions to reduce the incidence of phlebitis" (Same as Codarone) MEDICATION WASTE Product Size: 150 mg Product Wasted: ___ mg Amiodarone 2017-10 No 2 mg/ml. Me moria 11-24 "Recommend l 17:44: ation: Use [place] 00 an in-line filter during administra tion for continuous infusions to reduce the incidence of phlebitis" (Same as Codarone) MEDICATION WASTE Product Size: 150 mg Product Wasted: ___ mg lactobacill 2017-10 No 1 cap, Kaushal munira 11-24 Route: PO, l acidophilus 15:00: Dosing Herm valentin Weight 136, kg, Daily, Start date: 09/23/18 9:00:00 ROLL TENDER, Duration: 30 day, Stop date: 10/22/18 9:00:00 ROLL TENDER Cymbalta 2017-10 No Notes: Memoria 2- (Same as: l 15:00: Cymbalta) [place] (Do Not Crush) Vitamin B12 2017-10 No Notes: Kaushal munira - (Same As: l 15:00: Vitamin Leo B-12) Alprazolam 2017-10 No Notes: Memor ia 1 MG Oral 11-24 With food l Tablet 15:00: or milk Leo 00 (Same as: Xanax) POLYETHYLEN 2017-10 No Notes: Kaushal munira E GLYCOL 2-23 Dissolve l 3350 15:00: in 8 oz of [place] 00 water or juice. (Same as: Miralax) lactobacill 2017-10 No Notes: Kaushal munira us 2-23 Same as l rhamnosus 15:00: Culturelle rmann GG 00 lactobacill 2017-10 No 1 cap, Kaushal munira us 2-23 Route: PO, l acidophilus 15:00: Dosing Herm valentin 00 Weight 136, kg, Daily, Start date: 09/23/18 9:00:00 ROLL TENDER, Duration: 30 day, Stop date: 10/22/18 9:00:00 ROLL TENDER Cymbalta 2017-10 No Notes: Memoria 2-23 (Same as: l 15:00: Cymbalta) [place] 00 (Do Not Crush) Vitamin B12 2017-10 No Notes: Kaushal munira 2-23 (Same As: l 15:00: Vitamin [place] 00 B-12) Alprazolam 2017-10 No Notes: Memor ia 1 MG Oral 2-23 With food l Tablet 15:00: or milk Leo 00 (Same as: Xanax) POLYETHYLEN 2017-10 No Notes: Kaushal munira E GLYCOL 2-23 Dissolve l 3350 15:00: in 8 oz of [place] 00 water or juice. (Same as: Miralax) lactobacill 2017-10 No Notes: Kaushal munira us 2-23 Same as l rhamnosus 15:00: Culturelle rmann GG Spiriva 2017-10 No Notes: Memoria 2-23 (Same As: l 14:00: Spiriva) [place] 00 Spiriva 2017-10 No Notes: Memoria 2-23 (Same As: l 14:00: Spiriva) [place] 00 pantoprazol 2017-10 No Notes: Kaushal munira e 2-23 Tablet l 13:30: should not [place] 00 be chewed or crushed. (Same as: Protonix) pantoprazol 2017-10 No Notes: Kaushal munira e 2-23 Tablet l 13:30: should not [place] 00 be chewed or crushed. (Same as: Protonix) Enoxaparin 2017-10 No Notes: Memor ia 2-23 (Same as: l 07:00: Lovenox) [place] Enoxaparin 2017-10 No Notes: Memor ia 2-23 (Same as: l 07:00: Lovenox) [place] montelukast 2017-10 No Notes: Kaushal munira 2-23 (Same l 03:00: as:Singula [place] 00 ir) atorvastati 2017-10 No Notes: Kaushal munira n 2-23 (Same as: l 03:00: Lipitor) [place] 00 sennosides, 2017-10 No Notes: Kaushal munira NURSING HOME 2-23 (Same as: l 03:00: Senokot) [place] 00 montelukast 2017-10 No Notes: Kaushal munira 2-23 (Same l 03:00: as:Singula [place] 00 ir) atorvastati 2017-10 No Notes: Kaushal munira n 2-23 (Same as: l 03:00: Lipitor) [place] 00 sennosides, 2017-10 No Notes: Kaushal munira NURSING HOME 2-23 (Same as: l 03:00: Senokot) [place] 00 Ceftriaxone 2017-10 No Notes: Kaushal munira 2-23 (Same As: l 00:00: Rocephin). [place] Use with 100 mL NS and infuse over 30 min MEDICATION WASTE Product Size: 1000 mg Product Wasted: 0 mg Ceftriaxone 2017-10 No Notes: Kaushal munira 2-23 (Same As: l 00:00: Rocephin). [place] 00 Use with 100 mL NS and infuse over 30 min MEDICATION WASTE Product Size: 1000 mg Product Wasted: 0 mg Coreg 2017-10 No Notes: Memoria 2-22 Give with l 23:00: food. [place] 00 (Same As: Coreg) Docusate 2017-10 No Notes: Memoria 2-22 (Same as: l 23:00: Colace) [place] 00 (Do Not Crush) Coreg 2017-10 No Notes: Memoria 2-22 Give with l 23:00: food. [place] 00 (Same As: Coreg) Docusate 2017-10 No Notes: Memoria 2-22 (Same as: l 23:00: Colace) [place] (Do Not Crush) Rocephin 2017-10 No 1 gm, Memoria 2-22 Route: l 21:18: IVPB, Drug [place] 00 form: PDR/INJ, ONCE, Dosing Weight 136, kg, Priority: STAT, Start date: 09/22/18 15:18:00 ROLL TENDER, Stop date: 09/22/18 15:18:00 ROLL TENDER, ABX Indication : Urinary Tract Infection Rocephin 2017-10 No 1 gm, Memoria 2-22 Route: l 21:18: IVPB, Drug [place] 00 form: PDR/INJ, ONCE, Dosing Weight 136, kg, Priority: STAT, Start date: 09/22/18 15:18:00 ROLL TENDER, Stop date: 09/22/18 15:18:00 ROLL TENDER, ABX Indication : Urinary Tract Infection gabapentin 2017-10 No Notes: Memor ia 2-22 (Same as: l 20:00: Neurontin) [place] 00 Acetaminoph 2017-10 No Notes: Max Memoria en 2-22 acetaminop l 20:00: hen 4000 [place] 00 mg/day (4 gm/day). (Same as: Tylenol Extra Strength) celecoxib 2017-10 No Notes: Memori a 2-22 NSAID. l 20:00: Please [place] 00 check indication . Not for seizure. (Same As: CeleBREX) gabapentin 2017-10 No Notes: Memor ia 2-22 (Same as: l 20:00: Neurontin) [place] 00 Acetaminoph 2017-10 No Notes: Max Memoria en 2-22 acetaminop l 20:00: hen 4000 [place] 00 mg/day (4 gm/day). (Same as: Tylenol Extra Strength) celecoxib 2017-10 No Notes: Memori a 2-22 NSAID. l 20:00: Please [place] 00 check indication . Not for seizure. (Same As: CeleBREX) Albuterol 2017-10 No Notes: Memori a 0.833 MG/ML - (Same as: l / 19:47: Duoneb) Ipratropium 00 [place] 0.167 MG/ML Inhalant Solution [DuoNeb] Oxazepam 30 2017-10 No 30 mg, 1 Me moria MG Oral 2-22 cap, l Capsule 19:47: Route: PO, Herm Drug form: CAP, Bedtime, Dosing Weight 136, kg, Priority: NOW, Start date: 09/22/18 13:47:00 ROLL TENDER, Duration: 30 day, Stop date: 10/21/18 21:00:00 ROLL TENDER Albuterol 2017-10 No Notes: Memori a 0.833 MG/ML 2-22 (Same as: 19:47: Duoneb) Ipratropium 00 [place] 0.167 MG/ML Inhalant Solution [DuoNeb] Oxazepam 30 2017-10 No 30 mg, 1 Me moria MG Oral 2-22 cap, l Capsule 19:47: Route: PO, Drug form: CAP, Bedtime, Dosing Weight 136, kg, Priority: NOW, Start date: 09/22/18 13:47:00 ROLL TENDER, Duration: 30 day, Stop date: 10/21/18 21:00:00 ROLL TENDER Vitamin B12 2017-10 No 1,000 Memor ia 1000 mcg 2-22 microgram l oral tablet 19:45: = 1 tab, He rmann 00 PO, Daily, # 30 tab, 0 Refill(s) Vitamin B12 2017-10 No 1,000 Memor ia 1000 mcg 2-22 microgram l oral tablet 19:45: = 1 tab, He rmann 00 PO, Daily, # 30 tab, 0 Refill(s) Metoprolol 2017-10 No Notes: Memor ia 2-22 (Same as: l 19:38: Lopressor) Push over 2 minutes Metoprolol 2017-10 No Notes: Memor ia 2-22 (Same as: l 19:38: Lopressor) Push over 2 minutes Saline 2017-10 No Notes: Memoria Flush 0.9% 2-22 (Same as: l 19:37: BD Posiflush) Lactated 2017-10 No 1,000 mL, Kaushal munira Ringers IV 2-22 Rate: 100 l 1,000 mL 19:37: ml/hr, Infuse over: 10 hr, Route: IV, Dosing Weight 136 kg, Total Volume: 1,000, Start date: 09/22/18 13:37:00 ROLL TENDER, Duration: 12 hr, Stop date: 09/23/18 1:36:00 ROLL TENDER, 2.56, m2 Saline 2017-10 No Notes: Memoria Flush 0.9% 2-22 (Same as: l 19:37: BD Leo 00 Posiflush) Lactated 2017-10 No 1,000 mL, Kaushal munira Ringers IV 11-23 Rate: 100 l 1,000 mL 19:37: ml/hr, Infuse over: 10 hr, Route: IV, Dosing Weight 136 kg, Total Volume: 1,000, Start date: 09/22/18 13:37:00 ROLL TENDER, Duration: 12 hr, Stop date: 09/23/18 1:36:00 ROLL TENDER, 2.56, m2 Furosemide 2017-10 No 40 mg = 1 Me moria 40 MG Oral 2-22 tab, PO, l Tablet 19:28: BID, # 30 [place] n 00 tab, 0 Refill(s) atorvastati 2017-10 Yes 40 mg = 1 M emoria n 40 mg 2-22 tab, PO, l oral tablet 19:28: Bedtime, # Leo 00 30 tab, 0 Refill(s) clopidogrel 2017-10 Yes 75 mg = 1 M emoria 75 mg oral 2-22 tab, PO, l tablet 19:28: Daily, # [place] 00 30 tab, 0 Refill(s) omeprazole 2017-10 Yes 20 mg = 1 Me moria 20 mg oral 2-22 tab, PO, l enteric 19:28: Daily, # [place] n coated 00 30 tab, 3 tablet Refill(s) Acidophilus 2017-10 No Daily, 0 Me moria 2-22 Refill(s) l 19:28: [place] 00 carvedilol 2017-10 No 25 mg = 1 [...] munira 2-22 Daily, PRN l 19:28: Constipati [place] 00 on, 0 Refill(s) Furosemide 2017-10 No 40 mg = 1 Me moria 40 MG Oral 2-22 tab, PO, l Tablet 19:28: BID, # 30 [place] n 00 tab, 0 Refill(s) atorvastati 2017-10 Yes 40 mg = 1 M emoria n 40 mg 2-22 tab, PO, l oral tablet 19:28: Bedtime, # [place] 00 30 tab, 0 Refill(s) clopidogrel 2017-10 Yes 75 mg = 1 M emoria 75 mg oral 2-22 tab, PO, l tablet 19:28: Daily, # [place] 00 30 tab, 0 Refill(s) omeprazole 2017-10 Yes 20 mg = 1 Me moria 20 mg oral 2-22 tab, PO, l enteric 19:28: Daily, # [place] n coated 00 30 tab, 3 tablet Refill(s) Acidophilus 2017-10 No Daily, 0 Me moria 2-22 Refill(s) l 19:28: Leo carvedilol 2017-10 No 25 mg = 1 [...] oria 2-22 to exceed l 19:27: 400mg/day. (Same As: Ultram) Hydromorpho 2017-10 No Notes: Kaushal munira ne 2-22 Same as l 19:27: Dilaudid Melatonin 2017-10 No Notes: Memori a 2-22 (Same as: l 19:27: Melatonin) tizanidine 2017-10 No Notes: Memor ia 2-22 (Same As: l 19:27: Zanaflex) Ondansetron 2017-10 No Notes: Kaushal munira 2-22 (Same as: l 19:27: Zofran) MEDICATION WASTE Product Size: 4 mg Product Wasted: _0__ mg Tramadol 2017-10 No Notes: Not Mem oria 2-22 to exceed l 19:27: 400mg/day. (Same As: Ultram) Hydromorpho 2017-10 No Notes: Kaushal munira ne - Same as l 19:27: Dilaudid Melatonin 2017-10 No Notes: Memori a 11-23 (Same as: l 19:27: Melatonin) tizanidine 2017-10 No Notes: Memor ia 11-23 (Same As: l 19:27: Zanaflex) Ondansetron 2017-10 No Notes: Kaushal munira 2- (Same as: l 19:27: Zofran) MEDICATION WASTE Product Size: 4 mg Product Wasted: _0__ mg Oxycodone 2017-10 No 5 mg, 1 Memor ia Hydrochlori 2-22 tab, l de 5 MG 18:00: Route: PO, Herm valentin Oral Tablet 00 Q6H, Dosing Weight 136, kg, Start date: 09/22/18 12:00:00 ROLL TENDER, Duration: 30 day, Stop date: 10/22/18 6:00:00 ROLL TENDER Oxycodone 2017-10 No 5 mg, 1 Memor ia Hydrochlori 2-22 tab, l de 5 MG 18:00: Route: PO, Herm valentin Oral Tablet 00 Q6H, Dosing Weight 136, kg, Start date: 09/22/18 12:00:00 ROLL TENDER, Duration: 30 day, Stop date: 10/22/18 6:00:00 ROLL TENDER Hydromorpho 2017-10 No 0.5 mg, Mem oria ne 11-23 Route: l 17:53: IVP, ONCE, Dosing Weight 136, kg, Priority: STAT, Start date: 09/22/18 11:53:00 ROLL TENDER, Stop date: 09/22/18 11:53:00 ROLL TENDER Hydromorpho 2017-10 No 0.5 mg, Mem oria ne 11-23 Route: l 17:53: IVP, ONCE, Dosing Weight 136, kg, Priority: STAT, Start date: 09/22/18 11:53:00 ROLL TENDER, Stop date: 09/22/18 11:53:00 ROLL TENDER Calcium 2017-10 No 1,000 mL, Memor ia Chloride 2-22 Infuse l 0.0014 16:51: Over: 1 Leo MEQ/ML / 00 hr, Route: Potassium IV, ONCE, Chloride Priority: 0.004 STAT, MEQ/ML / Dosing Sodium Weight 136 Chloride kg, Start 0.103 date: MEQ/ML / 09/22/18 Sodium 10:51:00 Lactate ROLL TENDER, Stop 0.028 date: MEQ/ML 09/22/18 Injectable 10:51:00 Solution ROLL TENDER Calcium 2017-10 No 1,000 mL, Memor ia Chloride 2-22 Infuse l 0.0014 16:51: Over: 1 Leo MEQ/ML / 00 hr, Route: Potassium IV, ONCE, Chloride Priority: 0.004 STAT, MEQ/ML / Dosing Sodium Weight 136 Chloride kg, Start 0.103 date: MEQ/ML / 09/22/18 Sodium 10:51:00 Lactate ROLL TENDER, Stop 0.028 date: MEQ/ML 09/22/18 Injectable 10:51:00 Solution ROLL TENDER Oxycodone 2017-10 No Notes: Memori a Hydrochlori 2-22 (Same as: l de 5 MG 16:08: Roxicodone Herm valentin Oral Tablet 00 ) Oxycodone 2017-10 No Notes: Memori a Hydrochlori 2-22 (Same as: l de 5 MG 16:08: Roxicodone Herm valentin Oral Tablet 00 ) Oxycodone 2017-10 No 5 mg, Memoria Hydrochlori 2-22 Route: PO, l de 5 MG 14:22: ONCE, Leo Oral Tablet 00 Dosing Weight 136, kg, Start date: 09/22/18 8:22:00 ROLL TENDER, Stop date: 09/22/18 8:22:00 ROLL TENDER Oxycodone 2017-10 No 5 mg, Memoria Hydrochlori 2-22 Route: PO, l de 5 MG 14:22: ONCE, [place] Oral Tablet 00 Dosing Weight 136, kg, Start date: 09/22/18 8:22:00 ROLL TENDER, Stop date: 09/22/18 8:22:00 ROLL TENDER Coreg 2017-10 No 25 mg, Memoria 2-22 Route: PO, l 14:16: ONCE, [place] 00 Dosing Weight 136, kg, Start date: 09/22/18 8:16:00 ROLL TENDER, Stop date: 09/22/18 8:16:00 ROLL TENDER Coreg 2017- No 25 mg, Memoria 2-22 Route: PO, l 14:16: ONCE, Dosing Weight 136, kg, Start date: 09/22/18 8:16:00 ROLL TENDER, Stop date: 09/22/18 8:16:00 ROLL TENDER Dilaudid 2017- No 1 mg, Memoria 2-22 Route: l 10:55: IVP, ONCE, Dosing Weight 136, kg, Priority: STAT, Start date: 09/22/18 4:55:00 ROLL TENDER, Stop date: 09/22/18 4:55:00 ROLL TENDER Dilaudid 2017-10 No 1 mg, Memoria 2-22 Route: l 10:55: IVP, ONCE, Dosing Weight 136, kg, Priority: STAT, Start date: 09/22/18 4:55:00 ROLL TENDER, Stop date: 09/22/18 4:55:00 ROLL TENDER Dilaudid 2017-10 No 1 mg, Memoria 2-22 Route: l 08:13: IVP, ONCE, Dosing Weight 136, kg, Priority: STAT, Start date: 09/22/18 2:13:00 ROLL TENDER, Stop date: 09/22/18 2:13:00 ROLL TENDER Dilaudid 2017-10 No 1 mg, Memoria 2-22 Route: l 08:13: IVP, ONCE, Dosing Weight 136, kg, Priority: STAT, Start date: 09/22/18 2:13:00 ROLL TENDER, Stop date: 09/22/18 2:13:00 ROLL TENDER Fentanyl 2017- No 25 Memoria 2-22 microgram, l 07:25: Route: [place] 00 IVP, ONCE, Dosing Weight 136, kg, Priority: STAT, Start date: 09/22/18 1:25:00 ROLL TENDER, Stop date: 09/22/18 1:25:00 ROLL TENDER Fentanyl 2017- No 25 Memoria 2-22 microgram, l 07:25: Route: [place] 00 IVP, ONCE, Dosing Weight 136, kg, Priority: STAT, Start date: 09/22/18 1:25:00 ROLL TENDER, Stop date: 09/22/18 1:25:00 ROLL TENDER DULoxetine 2017-0 Yes 120mg QD Take 120 [...] 44 night as Center needed for Insomnia. DULoxetine 2017-0 Yes 120mg QD Take 120 [...] mouth 2 Center (two) times daily. zinc 2017-0 Yes 71g Q.5D Apply [address] [facility] 4-04 topically [place] 00:00: 2 (two) Medical (CRITIC-AID 00 times Center ) 20-51 % daily. Pste topical paste carvedilol 2017-0 Yes 25mg Take 2 [facility] [...] Q.5D Apply [address] [facility] 404 topically [place] 00:00: 2 (two) Medical (CRITIC-AID 00 times Center ) 20-51 % daily. Pste topical paste TRAMADOL 50 2021- No TAKE 1 Uni vers mg tablet 12-19 TABLET BY ity of 00:00: 00:00 MOUTH [place] 00 :00 EVERY 6 Medical HOURS Branch NEEDED FOR PAIN cyclobenzap 2014-10- No Unive rs rine 10-2605 ity of (FLEXERIL) 00:00: 00:00 [place] 10 mg 00 :00 Medical tablet Branch gabapentin 2014-10- No Univer s (NEURONTIN) 10-21 ity of 600 mg 00:00: 00:00 [place] [...] 18:00:00 114 mm[Hg] Univer sity of pressure [facility] Diastolic blood 2021-11-11 18:00:00 65 mm[Hg] Unive rsity of pressure [facility] Heart rate 2021-11-11 18:00:00 80 /min [facility] Respiratory rate 2021-11-11 18:00:00 18 /min [facility] Oxygen saturation in 2021-11-11 18:00:00 90 /min [facility] Arterial blood by [facility] Pulse oximetry Branch Body temperature 2021-11-11 17:00:00 36.67 Louise [facility] Body weight 2021-11-10 09:12:00 143.473 kg [facility] BMI 2021-11-10 09:12:00 52.64 kg/m2 [facility] Body height 2021-11-08 14:00:00 165.1 cm [facility] Temperature Oral (F) 2018-09-27 17:38:00 98.5 F [facility] [place] Systolic (mm Hg) 2018-09-27 17:38:00 Kaushal rial Leo Diastolic (mm Hg) 2018-09-27 17:38:00 Mem orial [place] Heart Rate 2018-09-27 17:38:00 [facility] [place] Respitory Rate 2018-09-27 17:38:00 Memori al Leo Heart Rate 2018-09-27 17:13:00 [facility] [place] Systolic (mm Hg) 2018-09-27 14:52:00 Kaushal rial [place] Diastolic (mm Hg) 2018-09-27 14:52:00 Mem orial Leo Heart Rate 2018-09-27 14:52:00 [facility] [place] Temperature Oral (F) 2018-09-27 14:52:00 98.2 F [facility] [place] Respitory Rate 2018-09-27 14:52:00 Memori al Leo Temperature Oral (F) 2018-09-27 11:32:00 98.2 F [facility] [place] Systolic (mm Hg) 2018-09-27 11:32:00 Kaushal rial [place] Diastolic (mm Hg) 2018-09-27 11:32:00 Mem orial Leo Respitory Rate 2018-09-27 11:32:00 Memori al Leo Weight 2018-09-22 06:43:00 [facility] BMI Calculated 2018-09-22 06:43:00 Memori al [place] Height 2018-09-22 06:43:00 167.64 cm [facility] Procedures Procedure Date / Time Performing Clinician Source Performed EXTERNAL PROVIDER RECORDS 2022-05-26 05:01:00 Doctor Unassigned, [facility] [place] [facility] EXTERNAL PROVIDER RECORDS 2021-11-24 06:01:00 Doctor Unassigned, [facility] [place] [facility] [place] COMP. METABOLIC PANEL 2021-11-11 08:10:00 Adolfo Armstrong [facility] ([id number]) [facility] CBC WITH DIFF 2021-11-11 08:10:00 Patti, [facility] N-TERMINAL PRO-BNP 2021-11-11 08:10:00 Patti [facility] XR CHEST 1 VW 2021-11-10 19:51:47 Jennifer Mccormick [facility] ACUTE CARE ARTERIAL BLOOD 2021-11-10 16:50:00 Aditi [facility] PHOSPHORUS 2021-11-10 12:52:[address] [facility] MAGNESIUM 2021-11-10 12:52:[address] [facility] COMP. METABOLIC PANEL 2021-11-10 12:52:00 Patti [facility] ([id number]) Medical [place] CBC WITH DIFF 2021-11-10 12:52:[address] [facility] N-TERMINAL PRO-BNP 2021-11-10 12:52:00 Patti [facility] VITAMIN B12, LEVEL 2021-11-09 22:51:00 Patti [facility] IRON PANEL 2021-11-09 22:51:[address] [facility] PROTHROMBIN TIME / INR 2021-11-09 22:51:00 Patti scott [facility] VITAMIN D, 25-OH 2021-11-09 22:51:00 Patti [facility] PROCALCITONIN 2021-11-09 22:51:[address] [facility] PHOSPHORUS 2021-11-09 09:39:[address] [facility] MAGNESIUM 2021-11-09 09:39:[address] [facility] BASIC METABOLIC PANEL 2021-11-09 09:39:00 Dafne [facility] (NA, K, CL, CO2, GLUCOSE, Medica l Branch BUN, CREATININE, CA) N-TERMINAL PRO-BNP 2021-11-09 09:39:00 Dafne [facility] TRANSTHORACIC ECHO (TTE) 2021-11-07 14:31:[address] [facility] COMPLETE W/ CONTRAST [facility] PHOSPHORUS 2021-11-07 10:09:00 Doug Spivey [facility] MAGNESIUM 2021-11-07 10:09:00 Allyssa [facility] C-REACTIVE PROTEIN 2021-11-07 10:09:00 Janay [facility] TROPONIN I 2021-11-07 10:09:00 Krystyna Jaeger [facility] COMP. METABOLIC PANEL 2021-11-07 10:09:00 Janay [facility] ([id number]) Medical [place] LIPID PANEL ([id number])(TOTAL 2021-11-07 10:09:00 Krystyna Jaeger.H Cris [facility] CHOLESTEROL, [facility] TRIGLYCERIDES, HDL) CBC WITH DIFF 2021-11-07 10:09:00 Allyssa [facility] N-TERMINAL PRO-BNP 2021-11-07 10:09:00 [facility] WO CONTRAST 2021-11-07 08:44:06 Janay Ochoa [facility] POCT GLUCOSE (AUTOMATED) 2021-11-07 03:45:00 Doug Spivey [facility] URINE DRUG (IMMUNOASSAY) 2021-11-07 02:22:[address] [facility] - COMPREHENSIVE DRUG Medical [facility] SCREEN URINE DRUG (LCMSMS) - 2021-11-07 02:22:00 Janay [facility] OPIATES PANEL [facility] URINE DRUG (LCMSMS) - 2021-11-07 02:22:00 Janay [facility] SYNTHETIC OPIATES PANEL [facility] Branch HB ECG ROUTINE & RHYTHM 2021-11-06 22:47:[address] [facility] STRIP Medical Branch COVID-19 (ID NOW RAPID 2021-11-06 22:38:00 Mattie Thapa [facility] TESTING) Medical Branch LAB ONLY COVID 2021-11-06 22:38:00 Mattie Thapa [facility] INTERPRETATION [facility] MISCELLANEOUS CULTURE 2021-11-06 21:15:00 Mattie Thapa [facility] URINALYSIS 2021-11-06 21:09:00 Mattie Thapa [facility] URINE CULTURE 2021-11-06 21:08:00 Mattie Thapa [facility] XR CHEST 1 VW 2021-11-06 20:59:57 Mattie Thapa [facility] BLOOD CULTURE SCREEN 2021-11-06 20:26:00 Mattie Thapa [facility] FERRITIN SERUM 2021-11-06 20:26:00 Janay [facility] THYROID STIMULATING 2021-11-06 20:26:00 Janay Ochoa [facility] HORMONE [facility] COMP. METABOLIC PANEL 2021-11-06 20:26:00 Mattie Thapa [facility] ([id number]) [facility] IRON PANEL 2021-11-06 20:26:00 Doug Spivey [facility] CBC WITH DIFF 2021-11-06 20:26:00 Mattie Thapa [facility] GLYCOSYLATED HEMOGLOBIN 2021-11-06 20:26:00 Janay [facility] (A1C) [facility] LACTIC ACID WHOLE BLOOD 2021-11-06 20:25:00 Mattie Thapa [facility] EMERGENCY SERVICES 2021-11-06 06:01:00 Doctor Unassigned, [facility] AGREEMENTS AND [place] [facility] Branch AUTHORIZATIONS HOSPITAL ADMISSION [facility] - 2021-11-06 06:01:00 Doctor Unassigned, [facility] MEDICARE PATIENTS RIGHTS [place] Medical Branch IMPORTANT MESSAGE [U] XRAY FEMUR 2 VWS LEFT 2018-11-30 00:00:00 [facility] [id number] [U] XRAY KNEE 1 OR 2 VWS 2018-11-13 00:00:00 [facility] RIGHT [id number] [U] XRAY ANKLE MIN 3 VWS 2018-11-13 00:00:00 [facility] RIGHT [id number] [U] XRAY FEMUR 2 VWS LEFT 2018-11-06 00:00:00 [facility] [id number] [U] XRAY FEMUR 2 VWS LEFT 2018-10-31 00:00:00 [facility] [id number] [U] XRAY FEMUR 2 VWS LEFT 2018-10-26 00:00:00 [facility] [id number] TKR -Total prosthetic 2012-10-02 00:00:00 Sree Simmons replacement of knee joint using cement Abdominal hysterectomy 1964-10-02 00:00:00 Simona Bailey Appendectomy 1956-10-02 00:00:00 [facility] [place] [facility] Encounters Start End Encounter Admission Attending Care Care Encounter Source Date/Time Date/Time Type Type Clinicians Facility Department ID 2022-05-26 2022-05-26 Orders Doctor DAGMAR [id number] Univers 00:00:00 00:00:00 Only Unassigned, MINDY [id number] ity of [place] [facility] [id number] Scar as [id number] [facility] 009 Branch 2021-11-24 2021-11-24 Orders Doctor DAGMAR [id number] Univers 00:00:00 00:00:00 Only Unassigned, MINDY [id number] ity of [place] [facility] [id number] Scar as [id number] [facility] 009 Branch 2021-11-12 2021-11-12 Transition BISHOP Roper [id number] Univers 00:00:00 00:00:00 of Care Arnulfo DYKES [id number] [id number] [id number] [facility] 403 Branch 2021-11-06 2021-11-11 Hospital Mattie Thapa S [facility] [id number] Univers 13:33:00 14:37:00 Encounter Doug Spivey [id number] ity of [place] Mary [id number] [facility] [id number] [facility] 080 Branch 2021-11-06 2021-11-11 Inpatient X [facility] [id number] Univers 13:33:00 14:37:00 ADITI rey [facility] 2018-12-11 2018-12-11 Appointmen [facility] Orthopedics [id number] [place] 12:00:00 12:00:00 t; FLASH HARDEN P.A. Physici JEANA, ans P.A. 2018-11-13 2018-11-13 Appointmen [facility] Orthopedics [id number] [place] 12:00:00 12:00:00 t; FLASH HARDEN P.A. Physici JEANA ans P.A. 2018-11-06 2018-11-06 [facility] [id number] [place] 10:45:00 10:45:00 t; Reinier HARDIN M.D. ans 2018-10-05 2018-10-05 Appointmen [facility] [id number] [place] 10:45:00 10:45:00 t; FLASH HARDEN P.A. Physici JEANA ans P.A. 2018-09-22 2018-09-27 Inpatient [facility] [id number] Memoria 06:43:00 23:40:[address] 2018-09-22 2018-09-27 Inpatient [place] [id number] Memoria 06:43:00 23:40:[address] 2018-09-22 2018-09-27 [id number] 00:43:00 17:40:00 [place] 55 Results Test Description Test Time Test Comments Results Result Comments Source N-TERMINAL PRO-BNP 2021-11-11 09:23:09 Test Item Value Reference Range Interpretation Comme nts NT-proBNP (test code = 5100 pg/mL See_Comment H [Aut omated message] The [id number]) system which ge nerated this result tra nsmitted reference range : <=450. The reference r bharti was not used to int erpret this result as zaida l/abnormal. JEAN-PIERRE (test code = JEAN-PIERRE) Biotin has been reported to cause a negative bias, interpret results relative to patient's use of biotin. Lab Interpretation (test Abnormal code = 66106-8) [facility]. METABOLIC PANEL ([id number])2021-11-11 09:14:47 Test Item Value Reference Range Interpretation Comments NA (test code = 139 mmol/L 135-145 5522913006) K (test code = 3.2 mmol/L 3.5-5.0 L 9132953053) CL (test code = 103 mmol/L 98-108 5690475864) CO2 TOTAL (test code = 31 mmol/L 23-31 5756851975) AGAP (test code = 2-16 6494277704) BUN (test code = 14 mg/dL 7-23 6621072743) GLUCOSE (test code = 141 mg/dL 70-110 H 2256137128) CREATININE (test code = 0.76 mg/dL 0.50-1.04 4407858883) TOTAL BILI (test code = 0.4 mg/dL 0.1-1.3 1853101657) CALCIUM (test code = 9.2 mg/dL 8.6-10.6 4550117313) T PROTEIN (test code = 6.3 g/dL 6.3-8.2 3392173302) ALBUMIN (test code = 3.4 g/dL 3.5-5.0 L 3950474684) ALK PHOS (test code = 141 U/L 34-122 H 1125126785) ALTv (test code = 11 U/L 5-35 1742-6) AST(SGOT) (test code = 17 U/L 13-40 5179753287) eGFR (test code = mL/min/1.73m2 4962860931) JEAN-PIERRE (test code = JEAN-PIERRE) Association of [...] tests). Lab Interpretation Abnormal (test code = 46187-6) [facility] WITH [id number] 09:07:25 Test Item Value Reference Range Interpretation [...] (test code = 61.1 fL 39.0-49.9 H 50658-1) RDW-CV (test code = 18.8 % 12.0-15.5 H 788-0) PLT (test code = See_Comment L [Automated 777-3) message] The sy stem which generated this result transmitted reference range : 166 - 358 10*3/ ?L. The reference r bharti was not used to interpret this result as normal/abnormal . MPV (test code = 9.5 fL 9.5-12.9 89329-8) IPF % (test code = 1.2 % 1.3-7.7 L Platelet count 7274599961) measured by fluorescence method. NRBC/100 WBC (test See_Comment [Automat ed code = 1506232067) message] The system which generated this result transmitted reference range : 0.0 - 10.0 /100 WBCs. The refer ence range was not u sed to interpret th is result as normal/abnormal . NRBC x10^3 (test code <0.01 See_Comment [Auto mated = 9213875726) message] The s ystem which generated this result transmitted reference range : 10*3/?L. The reference range was not used to interpret this result as normal/abnormal . GRAN MAT (NEUT) % 71.3 % (test code = 770-8) IMM GRAN % (test code 0.30 % = 5289830298) LYMPH % (test code = 17.0 % 736-9) MONO % (test code = 7.0 % 5905-5) EOS % (test code = 4.1 % 713-8) BASO % (test code = 0.3 % 706-2) GRAN MAT x10^3(ANC) 4.50 10*3/uL 1.88-7.09 (test code = 2247723034) IMM GRAN x10^3 (test <0.03 0.00-0.06 code = 2556225424) LYMPH x10^3 (test code 1.07 10*3/uL 1.32-3.29 L = 731-0) MONO x10^3 (test code 0.44 10*3/uL 0.33-0.92 = 742-7) EOS x10^3 (test code = 0.26 10*3/uL 0.03-0.39 711-2) BASO x10^3 (test code <0.03 0.01-0.07 = 704-7) Lab Interpretation Abnormal (test code = 54731-0) [facility]21-[facility]10 16:53:46 Test Item Value Reference Range Interpretation Comments PH (test code = 2) 7.35-7.45 PCO2 (test code = See_Comment H [Automate d message] 4273689127) The system [employer] generated this result transmitted ref erence range: 35 - 45 mmHg. The reference r bharti was not used to interpret this result as normal/abnor mal. PO2 (test code = See_Comment H [Automated message] 4619071798) The system [employer] generated this result transmitted ref erence range: 80 - 100 mmHg. The reference r bharti was not used to interpret this result as normal/abnor mal. HCO3 (test code = See_Comment H [Automate d message] 8339105197) The system [employer] generated this result transmitted ref erence range: 22 - 26 mEq/L. The reference r bharti was not used to interpret this result as normal/abnor mal. BE (test code = See_Comment [Automated message] 4302583428) The system [employer] generated this result transmitted ref erence range: -3.0 - 3 .0 mEq/L. The refe rence range was not u sed to interpret this result as normal/abnor mal. Lab Interpretation (test Abnormal code = 45811-4) [place] [id number] 13:39:20 Test Item Value Reference Range Interpretation Comments NT-proBNP (test code 8330 pg/mL See_Comment H [Autom ated = 1131158020) message] The system which generated this result transmitted reference range : <=450. The reference range was not used to interpret this result as normal/abnormal . JEAN-PIERRE (test code = JEAN-PIERRE) Biotin has been reported to cause a negative bias, interpret results relative to patient's use of biotin. Lab Interpretation Abnormal (test code = 24014-5) [facility] 13:31:42 Test Item Value Reference Range Interpretation Comments MAGNESIUM (test code = 9930674518) 1.6 mg/dL 1.7-2.4 L Lab Interpretation (test code = Abnormal 13460-1) [facility] (55362)2021-11-10 13:31:22 Test Item Value Reference Range Interpretation Comments NA (test code = 137 mmol/L 135-145 [id number]) K (test code = 3.8 mmol/L 3.5-5.0 3212226681) CL (test code = 104 mmol/L 98-108 5875228245) CO2 TOTAL (test code = 29 mmol/L 23-31 4081203915) AGAP (test code = 2-16 9391254555) BUN (test code = 11 mg/dL 7-23 8605677629) GLUCOSE (test code = 124 mg/dL 70-110 H [id number]) CREATININE (test code = 0.71 mg/dL 0.50-1.04 2903053569) TOTAL BILI (test code = 0.5 mg/dL 0.1-1.8 8454519699) CALCIUM (test code = 8.8 mg/dL 8.6-10.6 6383576193) T PROTEIN (test code = 6.1 g/dL 6.3-8.2 L 2407515609) ALBUMIN (test code = 3.2 g/dL 3.5-5.0 L 5586966654) ALK PHOS (test code = 133 U/L 34-122 H 2554739879) ALTv (test code = 11 U/L 5-35 1742-6) AST(SGOT) (test code = 26 U/L 13-40 9564937309) eGFR (test code = mL/min/1.73m2 2530067401) JEAN-PIERRE (test code = JEAN-PIERRE) Association of [...] tests). Lab Interpretation Abnormal (test code = 17208-8) [facility] 13:31:02 Test Item Value Reference Range Interpretation Comments PHOSPHORUS (test code = 4132935169) 3.5 mg/dL 2.5-5.0 Lab Interpretation (test code = Normal 97481-1) [facility] WITH [id number] 13:06:17 Test Item Value Reference Range Interpretation [...] (test code = 59.9 fL 39.0-49.9 H 69684-9) RDW-CV (test code = 18.6 % 12.0-15.5 H 788-0) PLT (test code = See_Comment L [Automated 777-3) message] The sy stem which generated this result transmitted reference range : 166 - 358 10*3/ ?L. The reference r bharti was not used to interpret this result as normal/abnormal . MPV (test code = 9.6 fL 9.5-12.9 48428-2) NRBC/100 WBC (test See_Comment [Automat ed code = 0326035516) message] The system which generated this result transmitted reference range : 0.0 - 10.0 /100 WBCs. The refer ence range was not u sed to interpret th is result as normal/abnormal . NRBC x10^3 (test code See_Comment [Auto mated = 1588940632) message] The s ystem which generated this result transmitted reference range : 10*3/?L. The reference range was not used to interpret this result as normal/abnormal . GRAN MAT (NEUT) % 67.6 % (test code = 770-8) IMM GRAN % (test code 0.80 % = 7582837579) LYMPH % (test code = 20.6 % 736-9) MONO % (test code = 6.4 % 5905-5) EOS % (test code = 4.3 % 713-8) BASO % (test code = 0.3 % 706-2) GRAN MAT x10^3(ANC) 4.09 10*3/uL 1.88-7.09 (test code = 8083945986) IMM GRAN x10^3 (test 0.05 10*3/uL 0.00-0.06 code = 6205087229) LYMPH x10^3 (test code 1.25 10*3/uL 1.32-3.29 L = 731-0) MONO x10^3 (test code 0.39 10*3/uL 0.33-0.92 = 742-7) EOS x10^3 (test code = 0.26 10*3/uL 0.03-0.39 711-2) BASO x10^3 (test code <0.03 0.01-0.07 = 704-7) Lab Interpretation Abnormal (test code = 94458-7) [facility], [id number] 09:17:51 Test Item Value Reference Range Interpretation Comments VIT D 25OH (test code = 30 ng/mL 25-80 00877-2) JEAN-PIERRE (test code = JEAN-PIERRE) Deficiency: <20 ng/mLInsufficiency : 20-24 ng/mLOptimal: 25-80 ng/mL Lab Interpretation (test Normal code = 66440-1) [facility] B12, [id number] 08:17:53 Test Item Value Reference Range Interpretation Comments VIT B12 (test code = >1000 240-930 H 0186178540) JEAN-PIERRE (test code = JEAN-PIERRE) Biotin has been reported to cause a positive bias, interpret results relative to patient's use of biotin. Lab Interpretation (test Abnormal code = 10372-6) [facility]ALCITONIN2022-[facility]-09 07:15:44 Test Item Value Reference Range Interpretation Comments Procalcitonin (test 0.03 ng/mL <0.07 code = 7859917386) JEAN-PIERRE (test code = JEAN-PIERRE) INTERPRETATION OF [...] lung abscess/empyema. For further information please refer to:[email or web address] Lab Interpretation Normal (test code = 13944-6) [facility]anoIRON [id number] 00:36:14 Test Item Value Reference Range Interpretation Comments IRON (test code = 2040801242) 35 ug/dL 50-160 L TIBC (test code = 4318779377) 255 ug/dL 250-410 % FE SAT (test code = 9563674597) 14 % 20-50 L Lab Interpretation (test code = Abnormal 74758-9) [facility]anoPROTHROMBIN TIME / [id number] 23:27:38 Test Item Value Reference Range Interpretation Comments PROTIME PATIENT (test See_Comment H [Auto mated message] code = 5964-2) The system [employer] generated this result transmitted ref erence range: 12.0 - 1 4.7 Seconds. The reference range was not used to int erpret this result as normal/abnormal . INR (test code = 6301-6) Nor mal INR <1.1; Warfarin Therap eutic range 2.0 to 3. 0 or 2.5 to 3.5, dep ending upon the indica tions. Lab Interpretation (test Abnormal code = 87541-7) [facility]anoN-TERMINAL [id number] 11:45:52 Test Item Value Reference Range Interpretation Comments NT-proBNP (test code 7910 pg/mL See_Comment H [Autom ated = 4972573656) message] The system which generated this result transmitted reference range : <=450. The reference range was not used to interpret this result as normal/abnormal . JEAN-PIERRE (test code = JEAN-PIERRE) Biotin has been reported to cause a negative bias, interpret results relative to patient's use of biotin. Lab Interpretation Abnormal (test code = 28264-1) [facility] (NA, K, CL, CO2, GLUCOSE, BUN, CREATININE, CA)2021-11-09 11:38:49 Test Item Value Reference Range Interpretation Comments NA (test code = 139 mmol/L 135-145 3598442517) K (test code = 3.8 mmol/L 3.5-5.0 9079622139) CL (test code = 108 mmol/L 98-108 2107578628) CO2 TOTAL (test code 26 mmol/L 23-31 = 9490906303) AGAP (test code = 2-16 9377898912) BUN (test code = 9 mg/dL 7-23 6607686737) GLUCOSE (test code = 101 mg/dL 70-110 4053097918) CREATININE (test code 0.68 mg/dL 0.50-1.04 = 7139255736) CALCIUM (test code = 9.6 mg/dL 8.6-10.6 0343448989) eGFR (test code = mL/min/1.73m2 9125197850) JEAN-PIERRE (test code = JEAN-PIERRE) Association of [...] or urine or abnormalities in imaging tests). [facility]MAGNESIUM2022-[facility]-08 11:38:49 Test Item Value Reference Range Interpretation Comments MAGNESIUM (test code = 7125077320) 1.8 mg/dL 1.7-2.4 Lab Interpretation (test code = Normal 52911-0) [facility]20[facility] 11:38:29 Test Item Value Reference Range Interpretation Comments PHOSPHORUS (test code = 4269814227) 3.4 mg/dL 2.5-5.0 Lab Interpretation (test code = Normal 44874-1) [facility]IRON [id number] 21:02:27 Test Item Value Reference Range Interpretation Comments IRON (test code = 8738022977) 30 ug/dL 50-160 L TIBC (test code = 6899413347) 290 ug/dL 250-410 % FE SAT (test code = 2473937064) 10 % 20-50 L Lab Interpretation (test code = Abnormal 03521-4) [facility]anoTROPONIN [id number] 20:12:01 Test Item Value Reference Interpretation Comments Range TROPONIN I (test 0.020 ng/mL See_Comment [Automated code = 3371998682) message] The system which generated this result [...] biotin. Lab Interpretation Normal (test code = 19660-4) [facility]anoN[facility]TERMINAL GGI-MCM6931-74-06 20:09:00 Test Item Value Reference Range Interpretation Comments NT-proBNP (test code 2780 pg/mL See_Comment H [Autom ated = 4438680537) message] The system which generated this result transmitted reference range : <=450. The reference range was not used to interpret this result as normal/abnormal . JEAN-PIERRE (test code = JEAN-PIERRE) Biotin has been reported to cause a negative bias, interpret results relative to patient's use of biotin. Lab Interpretation Abnormal (test code = 43649-5) [facility]anoLIPID PANEL (22915)(TOTAL CHOLESTEROL, TRIGLYCERIDES, HDL)2021-11-07 19:59:43 Test Item Value Reference Range Interpretation Comments CHOL (test code = 78 mg/dL 120-200 L 4499350317) HDL (test code = 46 mg/dL >50 L 7067589373) HDLC RATIO (test code = See_Comment [Au tomated message] 2472681161) The system [employer] generated this result transmitted ref erence range: <=4.5. T he reference range was not used to int erpret this result as normal/abnormal . TRIG (test code = 68 mg/dL 30-170 6646917620) LDL CHOL (test code = 18 mg/dL See_Comment [Auto mated message] 17061-2) The system [employer] generated this result transmitted ref erence range: <=160. T he reference range was not used to int erpret this result as normal/abnormal . VLDL (test code = 14 mg/dL 5-60 3351297579) Lab Interpretation (test Abnormal code = 25434-3) [facility]-REACTIVE [id number] 19:09:12 Test Item Value Reference Range Interpretation Comments CRP (test code = 4916902834) 0.9 mg/dL <0.8 H Lab Interpretation (test code = Abnormal 10842-0[facility] Gwmpxzlmmzda6426-[facility]-60 15:13:46 Test Item Value Reference Range Interpretation [...] (test code = 59.0 fL 39.0-49.9 H 83065-9) RDW-CV (test code = 17.6 % 12.0-15.5 H 788-0) PLT (test code = See_Comment L [Automated 777-3) message] The sy stem which generated this result transmitted reference range : 166 - 358 10*3/ ?L. The reference r bharti was not used to interpret this result as normal/abnormal . MPV (test code = 10.1 fL 9.5-12.9 04723-1) IPF % (test code = 1.2 % 1.3-7.7 L Platelet count 6515450262) measured by fluorescence method. NRBC/100 WBC (test See_Comment [Automat ed code = 6816588359) message] The system which generated this result transmitted reference range : 0.0 - 10.0 /100 WBCs. The refer ence range was not u sed to interpret th is result as normal/abnormal . NRBC x10^3 (test code <0.01 See_Comment [Auto mated = 2526561808) message] The s ystem which generated this result transmitted reference range : 10*3/?L. The reference range was not used to interpret this result as normal/abnormal . GRAN MAT (NEUT) % 54.7 % (test code = 770-8) IMM GRAN % (test code 0.40 % = 8955536288) LYMPH % (test code = 33.1 % 736-9) MONO % (test code = 6.9 % 5905-5) EOS % (test code = 4.4 % 713-8) BASO % (test code = 0.5 % 706-2) GRAN MAT x10^3(ANC) 3.09 10*3/uL 1.88-7.09 (test code = 4894611351) IMM GRAN x10^3 (test <0.03 0.00-0.06 code = 4782914589) LYMPH x10^3 (test code 1.87 10*3/uL 1.32-3.29 = 731-0) MONO x10^3 (test code 0.39 10*3/uL 0.33-0.92 = 742-7) EOS x10^3 (test code = 0.25 10*3/uL 0.03-0.39 711-2) BASO x10^3 (test code 0.03 10*3/uL 0.01-0.07 = 704-7) POLYCHROMASIA (test 2+ See_Comment [Automa janine code = 94354-1) message] The system which generated this result transmitted reference range : 2+. The referen ce range was not u sed to interpret th is result as normal/abnormal . SPHEROCYTES (test code 1+ A = 802-9) PLT ESTIMATE (test Decreased Normal A code = 9317-9) Lab Interpretation Abnormal (test code = 24095-1) [facility]anoMagnesium Frlph4294-79-27 13:23:21 Test Item Value Reference Range Interpretation Comments MAGNESIUM (test code = 5092237503) 1.7 mg/dL 1.7-2.4 Lab Interpretation (test code = Normal 64712-2) [facility]COMP. METABOLIC PANEL (03003)2021-11-07 13:23:01 Test Item Value Reference Range Interpretation Comments NA (test code = 139 mmol/L 135-145 0737594792) K (test code = 4.0 mmol/L 3.5-5.0 5341002594) CL (test code = 109 mmol/L 98-108 H 0695844160) CO2 TOTAL (test code = 27 mmol/L 23-31 5811386799) AGAP (test code = 2-16 9979746338) BUN (test code = 7 mg/dL 7-23 0569388579) GLUCOSE (test code = 105 mg/dL 70-110 1222198602) CREATININE (test code = 0.69 mg/dL 0.50-1.04 2433954135) TOTAL BILI (test code = 0.5 mg/dL 0.1-1.8 1852795100) CALCIUM (test code = 9.7 mg/dL 8.6-10.6 1686475943) T PROTEIN (test code = 6.0 g/dL 6.3-8.2 L 8831660425) ALBUMIN (test code = 3.3 g/dL 3.5-5.0 L 0967332721) ALK PHOS (test code = 144 U/L 34-122 H 5398853065) ALTv (test code = 13 U/L 5-35 1742-6) AST(SGOT) (test code = 21 U/L 13-40 0722777008) eGFR (test code = mL/min/1.73m2 9280382544) JEAN-PIERRE (test code = JEAN-PIERRE) Association of [...] tests). Lab Interpretation Abnormal (test code = 87978-7) [facility]anoPhosphorus Osfjg4853-69-04 13:22:41 Test Item Value Reference Range Interpretation Comments PHOSPHORUS (test code = 0328926514) 2.0 mg/dL 2.5-5.0 L Lab Interpretation (test code = Abnormal 53595-2) [facility]anoPOCT GLUCOSE (AUTOMATED)2021-11-07 08:20:04 Test Item Value Reference Range Interpretation Comments POCT GLU (test code = 5311310390) 103 mg/dL 70-110 Lab Interpretation (test code = Normal 08867-0) [facility]anoFERRITIN WOFFR6001-03-03 03:00:42 Test Item Value Reference Range Interpretation Comments FERRITIN (test code = 12.4 ng/mL 11.0-264.0 8598391295) JEAN-PIERRE (test code = JEAN-PIERRE) Biotin has been reported to cause a negative bias, interpret results relative to patient's use of biotin. Lab Interpretation (test Normal code = 75216-5) [facility]anoTHYROID STIMULATING [id number] 02:56:21 Test Item Value Reference Range Interpretation Comments TSH (test code = See_Comment [Automated message] 4076772765) The system [employer] generated this result transmitted ref erence range: 0.45 - 4 .70 mIU/L. The refe rence range was not u sed to interpret this result as normal/abnor mal. Lab Interpretation (test Normal code = 45371-9) [facility]anoGLYCOSYLATED HEMOGLOBIN (A1C)2021-11-07 02:29:47 Test Item Value Reference Range Interpretation Comments HGB A1C (test code = 5.1 % 4.0-5.7 4548-4) JEAN-PIERRE (test code = JEAN-PIERRE) Reference RangesNormal: <5.7%Prediabetes: 5.7 - 6.4%Diabetes: > 6.5% Lab Interpretation (test Normal code = 46346-0) [facility]COMP. Metabolic Panel (47648)2021-11-06 20:57:43 Test Item Value Reference Range Interpretation Comments NA (test code = 140 mmol/L 135-145 0414325787) K (test code = 4.0 mmol/L 3.5-5.0 7490241119) CL (test code = 106 mmol/L 98-108 4247150636) CO2 TOTAL (test code = 31 mmol/L 23-31 4427997527) AGAP (test code = 2-16 6592380966) BUN (test code = 8 mg/dL 7-23 9931735386) GLUCOSE (test code = 117 mg/dL 70-110 H 0425837963) CREATININE (test code = 0.83 mg/dL 0.50-1.04 5681146578) TOTAL BILI (test code = 0.5 mg/dL 0.1-1.4 9974593103) CALCIUM (test code = 10.0 mg/dL 8.6-10.6 4225050367) T PROTEIN (test code = 5.8 g/dL 6.3-8.2 L 1287576999) ALBUMIN (test code = 3.3 g/dL 3.5-5.0 L 3553476449) ALK PHOS (test code = 141 U/L 34-122 H 9782712599) ALTv (test code = 13 U/L 5-35 1742-6) AST(SGOT) (test code = 21 U/L 13-40 1593576281) eGFR (test code = mL/min/1.73m2 4013883994) JEAN-PIERRE (test code = JEAN-PIERRE) Association of [...] tests). Lab Interpretation Abnormal (test code = 03448-7) [facility] with [id number] 20:46:46 Test Item Value Reference Range Interpretation Comments WBC (test code = See_Comment [Automated 4308-2) message] The sy stem which generated this result transmitted reference range : 4.30 - 11.10 10*3/?L. The reference range was not used to interpret this result as normal/abnormal . RBC (test code = See_Comment L [Automated 405-8) message] The sy stem which generated this [...] (test code = 59.1 fL 39.0-49.9 H 63495-0) RDW-CV (test code = 17.6 % 12.0-15.5 H 788-0) PLT (test code = See_Comment L [Automated 777-3) message] The sy stem which generated this result transmitted reference range : 166 - 358 10*3/ ?L. The reference r bharti was not used to interpret this result as normal/abnormal . MPV (test code = 9.2 fL 9.5-12.9 L 64327-8) NRBC/100 WBC (test See_Comment [Automat ed code = 2737081110) message] The system which generated this result transmitted reference range : 0.0 - 10.0 /100 WBCs. The refer ence range was not u sed to interpret th is result as normal/abnormal . NRBC x10^3 (test code <0.01 See_Comment [Auto mated = 0375989032) message] The s ystem which generated this result transmitted reference range : 10*3/?L. The reference range was not used to interpret this result as normal/abnormal . GRAN MAT (NEUT) % 55.4 % (test code = 770-8) IMM GRAN % (test code 0.60 % = 1767777584) LYMPH % (test code = 32.5 % 736-9) MONO % (test code = 7.2 % 5905-5) EOS % (test code = 3.9 % 713-8) BASO % (test code = 0.4 % 706-2) GRAN MAT x10^3(ANC) 2.87 10*3/uL 1.88-7.09 (test code = 3710700865) IMM GRAN x10^3 (test 0.03 10*3/uL 0.00-0.06 code = 9754165349) LYMPH x10^3 (test code 1.68 10*3/uL 1.32-3.29 = 731-0) MONO x10^3 (test code 0.37 10*3/uL 0.33-0.92 = 742-7) EOS x10^3 (test code = 0.20 10*3/uL 0.03-0.39 711-2) BASO x10^3 (test code <0.03 0.01-0.07 = 704-7) Lab Interpretation Abnormal (test code = 81830-3) [facility]anoLactic Acid Whole Bylzc4600-28-03 20:31:53 Test Item Value Reference Range Interpretation Comments LACTIC ACID (test code = 1.59 mmol/L 0.50-2.20 5692953428) Lab Interpretation (test code = Normal 40964-8) [facility][U] XRAY KNEE 1 OR 2 VWS RIGHT [id number] 12:47:00Images acquired, not reported on this accession number.[facility][U] XRAY ANKLE MIN 3 VWS RIGHT [id number] 12:47:00Images acquired, not reported on this accession number.[facility][U] XRAY FEMUR 2 VWS LEFT [id number] 2018-11-13 11:56:00Images acquired, not reported on this accession number.[facility][U] XRAY FEMUR 2 VWS LEFT [id number] 10:54:00Images acquired, not reported on this accession number.[facility] OngkwlbbycRJZJBBDBYR8140-14-27 12:36:00 Test Item Value Reference Range Interpretation Comments MPV (test code = MPV) 7.4 7.4-10.4 [facility]BtusowzFRDAPMMCRQ3847-31-36 12:36:00 Test Item Value Reference Range Interpretation Comments Platelet (test code = Platelet) 138 133-450 [facility] CampusRiqjekrDNJIXTVFKL1081-62-84 12:36:00 Test Item Value Reference Range Interpretation Comments RDW (test code = RDW) 15.6 11.5-14.5 [facility] CampusWmxmejrAPQSYMEBNA2159-44-13 12:36:00 Test Item Value Reference Range Interpretation Comments WBC (test code = WBC) 4.0 3.7-10.4 [facility] CampusTpjrpjmHSFMVFYNXZ7927-01-73 12:36:00 Test Item Value Reference Range Interpretation Comments MCHC (test code = MCHC) 33.4 32.0-36.0 [facility] CampusSvfqxhlLHZEHVKTGG4100-87-45 12:36:00 Test Item Value Reference Range Interpretation Comments Hgb (test code = Hgb) 7.8 12.0-16.0 [facility] CampusEorctmlRWWWBCNNWU2218-82-52 12:36:00 Test Item Value Reference Range Interpretation Comments MCH (test code = MCH) 33.4 pg 27.0-31.0 [facility] CampusGdgoqyaMTLKRZKWKV8831-37-96 12:36:00 Test Item Value Reference Range Interpretation Comments RBC (test code = RBC) 2.33 4.20-5.40 [facility] CampusMgczkesMQWXOQSOWV1196-92-79 12:36:00 Test Item Value Reference Range Interpretation Comments Hct (test code = Hct) 23.2 36.0-48.0 [facility] CampusVtgqwbtLOGDKUPVUD5627-84-73 12:36:00 Test Item Value Reference Range Interpretation Comments MCV (test code = MCV) 99.9 80.0-98.0 [facility] CampusHvslltoZMIFRVMUSW3621-92-54 12:36:00 Test Item Value Reference Range Interpretation Comments Lymphocytes # (test code = Lymphocytes 1.6 1.0-5.5 #) [facility] CampusAauogwnQREPBHKPAQ8390-40-15 12:36:00 Test Item Value Reference Range Interpretation Comments Segs (test code = Segs) 44.5 45.0-75.0 [facility] CampusHiklejwYXMHVVLMAO9619-00-95 12:36:00 Test Item Value Reference Range Interpretation Comments Lymphocytes (test code = Lymphocytes) 40.8 20.0-40.0 [facility] CampusYhhxhoyGXQATTFLNI8362-69-21 12:36:00 Test Item Value Reference Range Interpretation Comments Monocytes # (test code 0.3 See_Comment [Aut omated message] The = Monocytes #) system which generated this result tra nsmitted reference range : <=0.8. The reference r bharti was not used to int erpret this result as normal/abnormal . [facility] CampusIkltrvlTHWYLGPMAZ2560-74-22 12:36:00 Test Item Value Reference Range Interpretation Comments Eosinophils # (test code 0.3 See_Comment [A utomated message] The = Eosinophils #) system whic h generated this result tra nsmitted reference range : <=0.5. The reference r bharti was not used to int erpret this result as normal/abnormal . [facility] CampusSevriiuTRDEINZRNK6272-58-03 12:36:00 Test Item Value Reference Range Interpretation Comments Neutrophils # (test code = Neutrophils 1.8 1.5-8.1 #) [facility] CampusHavpvhrFMXJABLCRZ5663-55-25 12:36:00 Test Item Value Reference Range Interpretation Comments Monocytes (test code = Monocytes) 7.4 2.0-12.0 [facility] CampusLxmemedQKPVYJEZUM5130-57-15 12:36:00 Test Item Value Reference Range Interpretation Comments Eosinophils (test code = 6.7 See_Comment [A utomated message] The Eosinophils) system which ge nerated this result tra nsmitted reference range : <=4.0. The reference r bharti was not used to int erpret this result as normal/abnormal . [facility] CampusIcghlhqSAUCWKERPS5439-75-43 12:36:00 Test Item Value Reference Range Interpretation Comments Basophils (test code = 0.6 See_Comment [Aut omated message] The Basophils) system which ge nerated this result tra nsmitted reference range : <=1.0. The reference r bharti was not used to int erpret this result as normal/abnormal . [facility] CampusUubqgbtHLJYNBLYNB1074-19-64 12:36:00 Test Item Value Reference Range Interpretation Comments MPV (test code = MPV) 7.4 7.4-10.4 [facility] CampusIlbmsmwGULAFOFBFN3870-78-11 12:36:00 Test Item Value Reference Range Interpretation Comments Platelet (test code = Platelet) 138 133-450 [facility] CampusYdyjaulFOTWZYZXTY7829-86-89 12:36:00 Test Item Value Reference Range Interpretation Comments RDW (test code = RDW) 15.6 11.5-14.5 [facility] CampusFpqhrmzUQLAXNSTJM5035-58-10 12:36:00 Test Item Value Reference Range Interpretation Comments WBC (test code = WBC) 4.0 3.7-10.4 [facility] CampusJyjogduGDPNLTKWZR9636-74-64 12:36:00 Test Item Value Reference Range Interpretation Comments MCHC (test code = MCHC) 33.4 32.0-36.0 [facility] CampusHbwupqzMDGNCHOJDJ3538-72-71 12:36:00 Test Item Value Reference Range Interpretation Comments Hgb (test code = Hgb) 7.8 12.0-16.0 [facility] CampusTtqcnlzVSTJZQYKEV1229-25-65 12:36:00 Test Item Value Reference Range Interpretation Comments MCH (test code = MCH) 33.4 pg 27.0-31.0 [facility] CampusLmllylsWFGDEITVUD8759-02-59 12:36:00 Test Item Value Reference Range Interpretation Comments RBC (test code = RBC) 2.33 4.20-5.40 [facility] CampusMqzmaewGHUCTWHGMM8112-97-31 12:36:00 Test Item Value Reference Range Interpretation Comments Hct (test code = Hct) 23.2 36.0-48.0 [facility] CampusDjjjliaCAUZRIJXBV9024-01-64 12:36:00 Test Item Value Reference Range Interpretation Comments MCV (test code = MCV) 99.9 80.0-98.0 [facility] CampusMhzfkbkJJLCYWVEKI6339-79-17 12:36:00 Test Item Value Reference Range Interpretation Comments Lymphocytes # (test code = Lymphocytes 1.6 1.0-5.5 #) [facility] CampusOljjfuaMYSDSEDIAP9994-18-41 12:36:00 Test Item Value Reference Range Interpretation Comments Segs (test code = Segs) 44.5 45.0-75.0 [facility] CampusGtmfuzzVQVNMFOAHN6527-61-60 12:36:00 Test Item Value Reference Range Interpretation Comments Lymphocytes (test code = Lymphocytes) 40.8 20.0-40.0 [facility] CampusAttgaqgHLLDZGVGGQ4820-23-57 12:36:00 Test Item Value Reference Range Interpretation Comments Monocytes # (test code 0.3 See_Comment [Aut omated message] The = Monocytes #) system which generated this result tra nsmitted reference range : <=0.8. The reference r bharti was not used to int erpret this result as normal/abnormal . [facility] CampusPqqhdsjPKSCLPBMQF7793-80-47 12:36:00 Test Item Value Reference Range Interpretation Comments Eosinophils # (test code 0.3 See_Comment [A utomated message] The = Eosinophils #) system whic h generated this result tra nsmitted reference range : <=0.5. The reference r bharti was not used to int erpret this result as normal/abnormal . [facility] CampusCfynvpzYDVETIJWDU3226-43-16 12:36:00 Test Item Value Reference Range Interpretation Comments Neutrophils # (test code = Neutrophils 1.8 1.5-8.1 #) [facility] CampusYglpvgoJIVBTALSKS6904-33-09 12:36:00 Test Item Value Reference Range Interpretation Comments Monocytes (test code = Monocytes) 7.4 2.0-12.0 [id number] 12:36:00 Test Item Value Reference Range Interpretation Comments Eosinophils (test code = 6.7 See_Comment [A utomated message] The Eosinophils) system which ge nerated this result tra nsmitted reference range : <=4.0. The reference r bharti was not used to int erpret this result as normal/abnormal . [facility] CampusMcpweivEGBHBRCREF8422-85-38 12:36:00 Test Item Value Reference Range Interpretation Comments Basophils (test code = 0.6 See_Comment [Aut omated message] The Basophils) system which ge nerated this result tra nsmitted reference range : <=1.0. The reference r bharti was not used to int erpret this result as normal/abnormal . [facility]2018-12-26 11:28:00 Test Item Value Reference Range Interpretation Comments Bili Indirect Unable to See_Comment [Automated (test code = Bili Calculate message] T he system Indirect) which generated this result transmitted reference range : <=1.0. The reference range was not used to interpret this result as normal/abnormal . [facility]2018-12-26 11:28:00 Test Item Value Reference Range Interpretation Comments Bili Direct (test code no gt See_Comment [Aut omated message] The = Bili Direct) system which generated this result tra nsmitted reference range : <=0.3. The reference r bharti was not used to int erpret this result as zaida l/abnormal. [facility]2018-12-26 11:28:00 Test Item Value Reference Range Interpretation Comments Bili Total (test code = Bili Total) 0.3 0.2-1.3 [facility]2018-12-26 11:28:00 Test Item Value Reference Range Interpretation Comments AST (test code = AST) 22 See_Comment [Auto mated message] The system which ge nerated this result transmit janine reference range : <=37. The reference range was not used to interpr et this result as zaida l/abnormal. [facility]2018-12-26 11:28:00 Test Item Value Reference Range Interpretation Comments Alk Phos (test code = Alk Phos) 127 39-136 [facility]2018-12-26 11:28:00 Test Item Value Reference Range Interpretation Comments ALT (test code = ALT) 9 See_Comment [Auto mated message] The system which ge nerated this result transmit janine reference range : <=65. The reference range was not used to interpr et this result as zaida l/abnormal. [facility]2018-12-26 11:28:00 Test Item Value Reference Range Interpretation Comments A/G Ratio (test code = A/G Ratio) 0.9 1 0.7-1.6 [facility]2018-12-26 11:28:00 Test Item Value Reference Range Interpretation Comments Albumin Lvl (test code = Albumin Lvl) 2.4 3.5-5.0 [facility]2018-12-26 11:28:00 Test Item Value Reference Range Interpretation Comments Globulin (test code = Globulin) 2.7 2.7-4.2 [facility]2018-12-26 11:28:00 Test Item Value Reference Range Interpretation Comments Total Protein (test code = Total 5.1 6.4-8.4 Protein) [facility]2018-12-26 11:28:00 Test Item Value Reference Range Interpretation Comments eGFR (test code = eGFR) 62 [facility]2018-12-26 11:28:00 Test Item Value Reference Range Interpretation Comments Chloride Lvl (test code = Chloride Lvl) 108 95-109 [facility]2018-12-26 11:28:00 Test Item Value Reference Range Interpretation Comments CO2 (test code = CO2) 30 24-32 [facility]2018-12-26 11:28:00 Test Item Value Reference Range Interpretation Comments Sodium Lvl (test code = Sodium Lvl) 138 135-145 [facility]2018-12-26 11:28:00 Test Item Value Reference Range Interpretation Comments Potassium Lvl (test code = Potassium 4.6 3.5-5.1 Lvl) [facility]2018-12-26 11:28:00 Test Item Value Reference Range Interpretation Comments Creatinine Lvl (test code = Creatinine 0.91 0.50-1.40 Lvl) [facility]2018-12-26 11:28:00 Test Item Value Reference Range Interpretation Comments Calcium Lvl (test code = Calcium Lvl) 9.7 8.5-10.5 [facility]2018-12-26 11:28:00 Test Item Value Reference Range Interpretation Comments AGAP (test code = AGAP) 4.6 10.0-20.0 [facility]2018-12-26 11:28:00 Test Item Value Reference Range Interpretation Comments BUN (test code = BUN) 16 7-22 [facility]2018-12-26 11:28:00 Test Item Value Reference Range Interpretation Comments Glucose Lvl (test code = Glucose Lvl) 85 70-99 [facility]2018-12-26 11:28:00 Test Item Value Reference Range Interpretation Comments Magnesium Lvl (test code = Magnesium 2.0 1.8-2.4 Lvl) [facility] CampusHmlmgktLDVQSRCVXA6712-75-87 11:28:00 Test Item Value Reference Range Interpretation Comments MPV (test code = MPV) 8.6 7.4-10.4 [facility] CampusAfrxlhaJVBKIJGXEH1570-82-82 11:28:00 Test Item Value Reference Range Interpretation Comments Platelet (test code = Platelet) 121 133-450 [facility] CampusNawanzcPWJUFKXYHE6589-07-68 11:28:00 Test Item Value Reference Range Interpretation Comments MCHC (test code = MCHC) 33.1 32.0-36.0 [facility] CampusQzdbhdwAAHJEFLCZE7383-41-74 11:28:00 Test Item Value Reference Range Interpretation Comments RDW (test code = RDW) 15.5 11.5-14.5 [facility] CampusBluvolqFMJUDCGKPH9916-93-46 11:28:00 Test Item Value Reference Range Interpretation Comments MCV (test code = MCV) 99.5 80.0-98.0 [facility] CampusYcqtoxyUMGGIATFSE7051-64-70 11:28:00 Test Item Value Reference Range Interpretation Comments MCH (test code = MCH) 32.9 pg 27.0-31.0 [place] 045038-12-26 11:28:00 Test Item Value Reference Range Interpretation Comments Hct (test code = Hct) 22.8 36.0-48.0 [facility] CampusRfclwdhYDCYMQOWNE6891-59-23 11:28:00 Test Item Value Reference Range Interpretation Comments Hgb (test code = Hgb) 7.6 12.0-16.0 [place] 045038-12-26 11:28:00 Test Item Value Reference Range Interpretation Comments RBC (test code = RBC) 2.30 4.20-5.40 [place] 045038-12-26 11:28:00 Test Item Value Reference Range Interpretation Comments WBC (test code = WBC) 4.9 3.7-10.4 [place] 045038-12-26 11:28:00 Test Item Value Reference Range Interpretation Comments Lymphocytes # (test code = Lymphocytes 1.5 1.0-5.5 #) [place] 045038-12-26 11:28:00 Test Item Value Reference Range Interpretation Comments Eosinophils # (test code 0.2 See_Comment [A utomated message] The = Eosinophils #) system whic h generated this result tra nsmitted reference range : <=0.5. The reference r bharti was not used to int erpret this result as normal/abnormal . [facility]2018-12-26 11:28:00 Test Item Value Reference Range Interpretation Comments Bili Indirect Unable to See_Comment [Automated (test code = Bili Calculate message] T he system Indirect) which generated this result transmitted reference range : <=1.0. The reference range was not used to interpret this result as normal/abnormal . [facility]2018-12-26 11:28:00 Test Item Value Reference Range Interpretation Comments Bili Direct (test code no gt See_Comment [Aut omated message] The = Bili Direct) system which generated this result tra nsmitted reference range : <=0.3. The reference r bharti was not used to int erpret this result as zaida l/abnormal. [facility]2018-12-26 11:28:00 Test Item Value Reference Range Interpretation Comments Bili Total (test code = Bili Total) 0.3 0.2-1.3 [place] 346708-12-26 11:28:00 Test Item Value Reference Range Interpretation Comments AST (test code = AST) 22 See_Comment [Auto mated message] The system which ge nerated this result transmit janine reference range : <=37. The reference range was not used to interpr et this result as zaida l/abnormal. [facility]2018-12-26 11:28:00 Test Item Value Reference Range Interpretation Comments Alk Phos (test code = Alk Phos) 127 39-136 [facility]2018-12-26 11:28:00 Test Item Value Reference Range Interpretation Comments ALT (test code = ALT) 9 See_Comment [Auto mated message] The system which ge nerated this result transmit janine reference range : <=65. The reference range was not used to interpr et this result as zaida l/abnormal. [facility] CampusKegjaehKCREYVLYRS8772-18-38 11:28:00 Test Item Value Reference Range Interpretation Comments Monocytes # (test code 0.3 See_Comment [Aut omated message] The = Monocytes #) system which generated this result tra nsmitted reference range : <=0.8. The reference r bharti was not used to int erpret this result as normal/abnormal . [facility]2018-12-26 11:28:00 Test Item Value Reference Range Interpretation Comments A/G Ratio (test code = A/G Ratio) 0.9 1 0.7-1.6 [facility]2018-12-26 11:28:00 Test Item Value Reference Range Interpretation Comments Albumin Lvl (test code = Albumin Lvl) 2.4 3.5-5.0 [facility]2018-12-26 11:28:00 Test Item Value Reference Range Interpretation Comments Globulin (test code = Globulin) 2.7 2.7-4.2 [facility]2018-12-26 11:28:00 Test Item Value Reference Range Interpretation Comments Total Protein (test code = Total 5.1 6.4-8.4 Protein) [facility]2018-12-26 11:28:00 Test Item Value Reference Range Interpretation Comments eGFR (test code = eGFR) 62 [facility]2018-12-26 11:28:00 Test Item Value Reference Range Interpretation Comments Chloride Lvl (test code = Chloride Lvl) 108 95-109 [facility]2018-12-26 11:28:00 Test Item Value Reference Range Interpretation Comments CO2 (test code = CO2) 30 24-32 [place] 346708-12-26 11:28:00 Test Item Value Reference Range Interpretation Comments Sodium Lvl (test code = Sodium Lvl) 138 135-145 [facility]2018-12-26 11:28:00 Test Item Value Reference Range Interpretation Comments Potassium Lvl (test code = Potassium 4.6 3.5-5.1 Lvl) [facility]2018-12-26 11:28:00 Test Item Value Reference Range Interpretation Comments Creatinine Lvl (test code = Creatinine 0.91 0.50-1.40 Lvl) [facility] CampusWzkhafoCIQLKHVVMP3829-78-26 11:28:00 Test Item Value Reference Range Interpretation Comments Basophils (test code = 0.4 See_Comment [Aut omated message] The Basophils) system which ge nerated this result tra nsmitted reference range : <=1.0. The reference r bharti was not used to int erpret this result as normal/abnormal . [facility]2018-12-26 11:28:00 Test Item Value Reference Range Interpretation Comments Calcium Lvl (test code = Calcium Lvl) 9.7 8.5-10.5 [facility]2018-12-26 11:28:00 Test Item Value Reference Range Interpretation Comments AGAP (test code = AGAP) 4.6 10.0-20.0 [facility]2018-12-26 11:28:00 Test Item Value Reference Range Interpretation Comments BUN (test code = BUN) 16 7-22 [facility]2018-12-26 11:28:00 Test Item Value Reference Range Interpretation Comments Glucose Lvl (test code = Glucose Lvl) 85 70-99 [facility]2018-12-26 11:28:00 Test Item Value Reference Range Interpretation Comments Magnesium Lvl (test code = Magnesium 2.0 1.8-2.4 Lvl) [facility] CampusVwipjbbMMDBLGKRXX0502-87-75 11:28:00 Test Item Value Reference Range Interpretation Comments MPV (test code = MPV) 8.6 7.4-10.4 [facility] CampusWjgnnfhBRCHRTAPWN5021-71-47 11:28:00 Test Item Value Reference Range Interpretation Comments Platelet (test code = Platelet) 121 133-450 [facility] CampusNeehbxnLHEGROKHML0802-91-00 11:28:00 Test Item Value Reference Range Interpretation Comments MCHC (test code = MCHC) 33.1 32.0-36.0 [facility] CampusEndxmnrQDQCPDKSTB5130-32-76 11:28:00 Test Item Value Reference Range Interpretation Comments RDW (test code = RDW) 15.5 11.5-14.5 [facility] CampusCobiogoNAFIKJHGKL8654-88-19 11:28:00 Test Item Value Reference Range Interpretation Comments MCV (test code = MCV) 99.5 80.0-98.0 [facility] CampusMswpuhaWKXKCJDLLQ8993-35-96 11:28:00 Test Item Value Reference Range Interpretation Comments Neutrophils # (test code = Neutrophils 2.8 1.5-8.1 #) [facility] CampusPifahliRBXXCBVUCW2310-42-44 11:28:00 Test Item Value Reference Range Interpretation Comments MCH (test code = MCH) 32.9 pg 27.0-31.0 [facility] CampusUvzhgffUQYNFWVEUN3659-84-09 11:28:00 Test Item Value Reference Range Interpretation Comments Hct (test code = Hct) 22.8 36.0-48.0 [facility] CampusIapozwrMGHGRXURTO7074-89-98 11:28:00 Test Item Value Reference Range Interpretation Comments Hgb (test code = Hgb) 7.6 12.0-16.0 [facility] CampusWexfzcrZMKNUXVBFH9803-67-83 11:28:00 Test Item Value Reference Range Interpretation Comments RBC (test code = RBC) 2.30 4.20-5.40 [facility] CampusBkkxyijYPMRRDTQOC8939-20-28 11:28:00 Test Item Value Reference Range Interpretation Comments WBC (test code = WBC) 4.9 3.7-10.4 [facility] CampusZcilrqwVVMSFVFJNM7777-27-86 11:28:00 Test Item Value Reference Range Interpretation Comments Lymphocytes # (test code = Lymphocytes 1.5 1.0-5.5 #) [facility] CampusQcqxgbxQQPSYZGCWP7673-00-32 11:28:00 Test Item Value Reference Range Interpretation Comments Eosinophils # (test code 0.2 See_Comment [A utomated message] The = Eosinophils #) system whic h generated this result tra nsmitted reference range : <=0.5. The reference r bharti was not used to int erpret this result as normal/abnormal . [facility] CampusDzqkpfkAGZTCLMYNE1953-99-32 11:28:00 Test Item Value Reference Range Interpretation Comments Monocytes # (test code 0.3 See_Comment [Aut omated message] The = Monocytes #) system which generated this result tra nsmitted reference range : <=0.8. The reference r bharti was not used to int erpret this result as normal/abnormal . [facility] CampusHezlxlaJKPTYPBHXR4742-25-51 11:28:00 Test Item Value Reference Range Interpretation Comments Basophils (test code = 0.4 See_Comment [Aut omated message] The Basophils) system which ge nerated this result tra nsmitted reference range : <=1.0. The reference r bharti was not used to int erpret this result as normal/abnormal . [facility] CampusBpuszhkIGAWLSPTAP7882-02-16 11:28:00 Test Item Value Reference Range Interpretation Comments Neutrophils # (test code = Neutrophils 2.8 1.5-8.1 #) [facility] CampusClkmlbgLBQTEMKCQE0610-28-50 11:28:00 Test Item Value Reference Range Interpretation Comments Lymphocytes (test code = Lymphocytes) 31.2 20.0-40.0 [facility] CampusJwxxagvCHOBGMYXOC4252-33-99 11:28:00 Test Item Value Reference Range Interpretation Comments Lymphocytes (test code = Lymphocytes) 31.2 20.0-40.0 [facility] CampusWxixplzOHOIPFNSXS4604-50-37 11:28:00 Test Item Value Reference Range Interpretation Comments Monocytes (test code = Monocytes) 6.9 2.0-12.0 [facility] CampusCugolnfASAGCPJHEK9628-32-46 11:28:00 Test Item Value Reference Range Interpretation Comments Segs (test code = Segs) 58.3 45.0-75.0 [facility] CampusBbzpluoMZYWZBMJNM9215-62-68 11:28:00 Test Item Value Reference Range Interpretation Comments Eosinophils (test code = 3.2 See_Comment [A utomated message] The Eosinophils) system which ge nerated this result tra nsmitted reference range : <=4.0. The reference r bharti was not used to int erpret this result as normal/abnormal . [facility] CampusAcvfhyqRYCHTCUTIE4251-96-58 11:28:00 Test Item Value Reference Range Interpretation Comments Monocytes (test code = Monocytes) 6.9 2.0-12.0 [facility] CampusJgjdqqxFPMJSNEWJU5811-83-98 11:28:00 Test Item Value Reference Range Interpretation Comments Segs (test code = Segs) 58.3 45.0-75.0 [facility]QdoxnofBMRWCZUYSR0821-53-13 11:28:00 Test Item Value Reference Range Interpretation Comments Eosinophils (test code = 3.2 See_Comment [A utomated message] The Eosinophils) system which ge nerated this result tra nsmitted reference range : <=4.0. The reference r bharti was not used to int erpret this result as normal/abnormal . [facility]HjyanrrDDKRLWNICWLN8739-46-23 11:48:00 Test Item Value Reference Range Interpretation Comments Glucose Lvl (test code = Glucose Lvl) 133 70-99 [facility]awTbsyixlHQMDEUEMPRZB8832-64-80 11:48:00 Test Item Value Reference Range Interpretation Comments BUN (test code = BUN) 14 7-22 [facility]awOunbwqvEHIDEZDVXTDG0851-95-51 11:48:00 Test Item Value Reference Range Interpretation Comments Sodium Lvl (test code = Sodium Lvl) 142 135-145 [facility] CenterCHEM FHJCQ6018-69-05 11:48:00 Test Item Value Reference Range Interpretation Comments Magnesium Lvl (test code = Magnesium 2.2 1.8-2.4 Lvl) [facility]awAunwjjlWAXQPAWZHNTC3233-44-21 11:48:00 Test Item Value Reference Range Interpretation Comments Potassium Lvl (test code = Potassium 5.4 3.5-5.1 Lvl) [facility]awVzbbbyqGEXOEUGREGMS5629-97-66 11:48:00 Test Item Value Reference Range Interpretation Comments Chloride Lvl (test code = Chloride Lvl) 111 95-109 [facility]awRthnutyDDFGKBQHQXEU8116-01-21 11:48:00 Test Item Value Reference Range Interpretation Comments CO2 (test code = CO2) 27 24-32 [facility]awEinbykoSTMFUSXBBYVA7451-68-76 11:48:00 Test Item Value Reference Range Interpretation Comments Calcium Lvl (test code = Calcium Lvl) 9.2 8.5-10.5 [facility]awJojsonvXHELSDZVBXKS0407-15-68 11:48:00 Test Item Value Reference Range Interpretation Comments AGAP (test code = AGAP) 9.4 10.0-20.0 [facility]awDtbtyuuNSRPFSGLPDSF9708-44-11 11:48:00 Test Item Value Reference Range Interpretation Comments eGFR (test code = eGFR) 73 [facility]awXafnengIMDXPDVHZLHD3419-18-06 11:48:00 Test Item Value Reference Range Interpretation Comments Creatinine Lvl (test code = Creatinine 0.80 0.50-1.40 Lvl) [facility]awXsiqsrtKRYXJTRIVMFL8502-27-48 11:48:00 Test Item Value Reference Range Interpretation Comments Glucose Lvl (test code = Glucose Lvl) 133 70-99 [facility]awMyrcsleTQAFPWMFFRZQ7973-58-99 11:48:00 Test Item Value Reference Range Interpretation Comments BUN (test code = BUN) 14 7-22 [facility]awTycnkheRIFGMBNOYEWA0003-17-86 11:48:00 Test Item Value Reference Range Interpretation Comments Sodium Lvl (test code = Sodium Lvl) 142 135-145 [facility] CenterFileString RCMUL6781-37-80 11:48:00 Test Item Value Reference Range Interpretation Comments Magnesium Lvl (test code = Magnesium 2.2 1.8-2.4 Lvl) [facility]awFgsdxzsSWGPQYFNDEPE9929-48-27 11:48:00 Test Item Value Reference Range Interpretation Comments Potassium Lvl (test code = Potassium 5.4 3.5-5.1 Lvl) [facility]awEovdsrtQKLHBPTPKKLE5102-39-96 11:48:00 Test Item Value Reference Range Interpretation Comments Chloride Lvl (test code = Chloride Lvl) 111 95-109 [facility]awVunotjoFQRIWWDWKGMC0876-32-08 11:48:00 Test Item Value Reference Range Interpretation Comments CO2 (test code = CO2) 27 24-32 [facility]awVcbtbjuDASXBRTFUFZR5013-61-60 11:48:00 Test Item Value Reference Range Interpretation Comments Calcium Lvl (test code = Calcium Lvl) 9.2 8.5-10.5 [facility]awPwmvtbsVKGCXWPAUNRO7423-21-70 11:48:00 Test Item Value Reference Range Interpretation Comments AGAP (test code = AGAP) 9.4 10.0-20.0 [facility]awBfzctyaZAGWPYMCHZIU1834-26-99 11:48:00 Test Item Value Reference Range Interpretation Comments eGFR (test code = eGFR) 73 [facility]awQygrduaEHUAKAIVOVCM9045-09-22 11:48:00 Test Item Value Reference Range Interpretation Comments Creatinine Lvl (test code = Creatinine 0.80 0.50-1.40 Lvl) [facility] CenterHydrocapsule [id number] 08:48:00 Test Item Value Reference Range Interpretation Comments Magnesium Lvl (test code = Magnesium 2.2 1.8-2.4 Lvl) [facility] CampusHstyilrWUJABCNWBB0079-80-36 08:48:00 Test Item Value Reference Range Interpretation Comments Hgb (test code = Hgb) 8.1 12.0-16.0 [facility] CampusJtjbknxSWQPXYWIKW0438-79-64 08:48:00 Test Item Value Reference Range Interpretation Comments Hct (test code = Hct) 24.1 36.0-48.0 [facility] CampusXiqwpfnSJHPSZUCZX1400-26-53 08:48:00 Test Item Value Reference Range Interpretation Comments RBC (test code = RBC) 2.45 4.20-5.40 [facility] CampusLodlvbgPBVPIXGNKT1840-93-78 08:48:00 Test Item Value Reference Range Interpretation Comments WBC (test code = WBC) 3.2 3.7-10.4 [facility] CampusMmjccrxQJSHRZJUCG8395-68-74 08:48:00 Test Item Value Reference Range Interpretation Comments RDW (test code = RDW) 15.9 11.5-14.5 [facility] CampusWttyhwrXGANBDEPZP9220-88-96 08:48:00 Test Item Value Reference Range Interpretation Comments Platelet (test code = Platelet) 128 133-450 [facility] CampusRpidlrvEVLMWZCOWP5826-61-22 08:48:00 Test Item Value Reference Range Interpretation Comments MCHC (test code = MCHC) 33.5 32.0-36.0 [facility] CampusObmpadhUUJPOLODFH5302-38-03 08:48:00 Test Item Value Reference Range Interpretation Comments MCV (test code = MCV) 98.3 80.0-98.0 [facility] CampusUuubhreJXVDOGPCWS9208-06-12 08:48:00 Test Item Value Reference Range Interpretation Comments MCH (test code = MCH) 33.0 pg 27.0-31.0 [facility] CampusPbnuccwASCHIDRFRD5476-20-04 08:48:00 Test Item Value Reference Range Interpretation Comments MPV (test code = MPV) 8.5 7.4-10.4 [facility] CampusZyrfrflFKDZVKUQQK7423-42-35 08:48:00 Test Item Value Reference Range Interpretation Comments Monocytes # (test code 0.1 See_Comment [Aut omated message] The = Monocytes #) system which generated this result tra nsmitted reference range : <=0.8. The reference r bharti was not used to int erpret this result as normal/abnormal . [facility]RyexmfuIUXRTYOWJR8268-11-22 08:48:00 Test Item Value Reference Range Interpretation Comments Segs (test code = Segs) 84.0 45.0-75.0 [facility] CampusWhdqditQCWNKYDFAJ5102-10-49 08:48:00 Test Item Value Reference Range Interpretation Comments Monocytes (test code = Monocytes) 3.2 2.0-12.0 [facility] CampusYekyoywWYKMTHJLLB7504-65-95 08:48:00 Test Item Value Reference Range Interpretation Comments Neutrophils # (test code = Neutrophils 2.7 1.5-8.1 #) [facility] CampusLfvgbdcFJOBREFFWX1720-74-00 08:48:00 Test Item Value Reference Range Interpretation Comments Lymphocytes # (test code = Lymphocytes 0.4 1.0-5.5 #) [facility] CampusCwqsyajAKWSIXPYAQ7129-04-73 08:48:00 Test Item Value Reference Range Interpretation Comments Basophils (test code = 0.2 See_Comment [Aut omated message] The Basophils) system which ge nerated this result tra nsmitted reference range : <=1.0. The reference r bharti was not used to int erpret this result as normal/abnormal . [facility] CampusTeltayyROTFAIJQSG7517-76-45 08:48:00 Test Item Value Reference Range Interpretation Comments Lymphocytes (test code = Lymphocytes) 12.6 20.0-40.0 [facility]2018-12-25 08:48:00 Test Item Value Reference Range Interpretation Comments Magnesium Lvl (test code = Magnesium 2.2 1.8-2.4 Lvl) [facility] CampusJiexshqYOQPBPGFNH6248-66-46 08:48:00 Test Item Value Reference Range Interpretation Comments Hgb (test code = Hgb) 8.1 12.0-16.0 [facility] CampusGqvdhsaURCTVDRDJS7455-94-77 08:48:00 Test Item Value Reference Range Interpretation Comments Hct (test code = Hct) 24.1 36.0-48.0 [facility] CampusVbolnqcOTWYDYPVRH6977-15-51 08:48:00 Test Item Value Reference Range Interpretation Comments RBC (test code = RBC) 2.45 4.20-5.40 [facility] CampusCmrxtxbTHBSHZMVTF9639-68-41 08:48:00 Test Item Value Reference Range Interpretation Comments WBC (test code = WBC) 3.2 3.7-10.4 [facility] CampusUzetzumMQFHSOGUXQ7460-76-28 08:48:00 Test Item Value Reference Range Interpretation Comments RDW (test code = RDW) 15.9 11.5-14.5 [facility] CampusSjzgkhsPQJMWVGFGP1488-96-55 08:48:00 Test Item Value Reference Range Interpretation Comments Platelet (test code = Platelet) 128 133-450 [facility] CampusMlmlrnrBQCZKAFKGL8980-24-60 08:48:00 Test Item Value Reference Range Interpretation Comments MCHC (test code = MCHC) 33.5 32.0-36.0 [facility] CampusPjlfhxaKHGHMEDWXH2401-46-43 08:48:00 Test Item Value Reference Range Interpretation Comments MCV (test code = MCV) 98.3 80.0-98.0 [facility] CampusQqscjccVERZURQTZB8048-16-45 08:48:00 Test Item Value Reference Range Interpretation Comments MCH (test code = MCH) 33.0 pg 27.0-31.0 [facility] CampusWjeswrlWNGFWMSLTR8166-79-09 08:48:00 Test Item Value Reference Range Interpretation Comments MPV (test code = MPV) 8.5 7.4-10.4 [facility] CampusVcparttZNZGLLOMJC9357-91-30 08:48:00 Test Item Value Reference Range Interpretation Comments Monocytes # (test code 0.1 See_Comment [Aut omated message] The = Monocytes #) system which generated this result tra nsmitted reference range : <=0.8. The reference r bharti was not used to int erpret this result as normal/abnormal . [facility] CampusYaajubuVSVNHVEWXP3763-79-05 08:48:00 Test Item Value Reference Range Interpretation Comments Segs (test code = Segs) 84.0 45.0-75.0 [facility] CampusXsarnydGXEYBCVWJG7453-80-29 08:48:00 Test Item Value Reference Range Interpretation Comments Monocytes (test code = Monocytes) 3.2 2.0-12.0 [facility] CampusJgbehrdGYEAXZGGXR8734-50-04 08:48:00 Test Item Value Reference Range Interpretation Comments Neutrophils # (test code = Neutrophils 2.7 1.5-8.1 #) [facility] CampusMupztncQJQWZOSEAZ7087-82-94 08:48:00 Test Item Value Reference Range Interpretation Comments Lymphocytes # (test code = Lymphocytes 0.4 1.0-5.5 #) [facility] CampusTkloxftCLXCDTCIMU9326-72-09 08:48:00 Test Item Value Reference Range Interpretation Comments Basophils (test code = 0.2 See_Comment [Aut omated message] The Basophils) system which ge nerated this result tra nsmitted reference range : <=1.0. The reference r bharti was not used to int erpret this result as normal/abnormal . [facility] CampusCgnksjwYCVEKVFYLU0206-03-01 08:48:00 Test Item Value Reference Range Interpretation Comments Lymphocytes (test code = Lymphocytes) 12.6 20.0-40.0 [facility]2018-12-25 00:52:00 Test Item Value Reference Range Interpretation Comments % Satur Fe (test code = % Satur Fe) 83 12-57 [facility]2018-12-25 00:52:00 Test Item Value Reference Range Interpretation Comments UIBC (test code = UIBC) 30 110-370 [facility]2018-12-25 00:52:00 Test Item Value Reference Range Interpretation Comments TIBC (test code = TIBC) 175 228-428 [facility]2018-12-25 00:52:00 Test Item Value Reference Range Interpretation Comments Iron (test code = Iron) 145 30-160 [facility]2018-12-25 00:52:00 Test Item Value Reference Range Interpretation Comments Folate Lvl (test code = Folate Lvl) 3.9 [facility]2018-12-25 00:52:00 Test Item Value Reference Range Interpretation Comments Ferritin Lvl (test code = Ferritin Lvl) 130 5-204 [facility]2018-12-25 00:52:00 Test Item Value Reference Range Interpretation Comments Vitamin B12 Lvl (test code = Vitamin 9514 412-9824 B12 Lvl) [facility] CampusWqtnbxfVBNJSFZTYX4300-06-88 00:52:00 Test Item Value Reference Range Interpretation Comments PB Smear Path Peripheral blood smear (test code = PB examination: Macrocytic Smear Path) anemia with mild anisocytosis. No increase in schistocytes. Unremarkable WBC morphology. Mild thrombocytopenia with presence of occasional large forms. CPT: 37434 [facility] 00:52:00 Test Item Value Reference Range Interpretation Comments Hep C Ab (test code = Negative *NA*(09/24/18 Hep C Ab) 6:52 PM) [facility]NwvgwkiPFVPMQNKUE5763-66-02 00:52:00 Test Item Value Reference Range Interpretation Comments HIV Ag/Ab 4th Gen Negative *NA*(09/24/18 (test code = HIV 6:52 PM) Ag/Ab 4th Gen) [facility]2018-12-25 00:52:00 Test Item Value Reference Range Interpretation Comments % Satur Fe (test code = % Satur Fe) 83 12-57 [facility]2018-12-25 00:52:00 Test Item Value Reference Range Interpretation Comments UIBC (test code = UIBC) 30 110-370 [facility]2018-12-25 00:52:00 Test Item Value Reference Range Interpretation Comments TIBC (test code = TIBC) 175 228-428 [facility]2018-12-25 00:52:00 Test Item Value Reference Range Interpretation Comments Iron (test code = Iron) 145 30-160 [facility]2018-12-25 00:52:00 Test Item Value Reference Range Interpretation Comments Folate Lvl (test code = Folate Lvl) 3.9 [facility]2018-12-25 00:52:00 Test Item Value Reference Range Interpretation Comments Ferritin Lvl (test code = Ferritin Lvl) 130 5-204 [facility]2018-12-25 00:52:00 Test Item Value Reference Range Interpretation Comments Vitamin B12 Lvl (test code = Vitamin 3588 079-3963 B12 Lvl) [facility] CampusSsggdnuWKZFKWXXOZ2408-13-27 00:52:00 Test Item Value Reference Range Interpretation Comments PB Smear Path Peripheral blood smear (test code = PB examination: Macrocytic Smear Path) anemia with mild anisocytosis. No increase in schistocytes. Unremarkable WBC morphology. Mild thrombocytopenia with presence of occasional large forms. CPT: 61698 [facility]HgalguwNNCDJSCVZW0763-43-71 00:52:00 Test Item Value Reference Range Interpretation Comments Hep C Ab (test code = Negative *NA*(09/24/18 Hep C Ab) 6:52 PM) [facility] HospitalAwkyacoPNCCFRWCCN6995-40-98 00:52:00 Test Item Value Reference Range Interpretation Comments HIV Ag/Ab 4th Gen Negative *NA*(09/24/18 (test code = HIV 6:52 PM) Ag/Ab 4th Gen) [facility] [id number] 17:06:00 Test Item Value Reference Range Interpretation Comments RBC product (test code Product available = RBC product) (09/24/18 11:06 AM) [facility] [id number] 17:06:00 Test Item Value Reference Range Interpretation Comments RBC product (test code Product available = RBC product) (09/24/18 11:06 AM) [facility]2018-12-24 07:18:00 Test Item Value Reference Range Interpretation Comments eGFR (test code = eGFR) 43 [facility]2018-12-24 07:18:00 Test Item Value Reference Range Interpretation Comments Chloride Lvl (test code = Chloride Lvl) 108 95-109 [facility]2018-12-24 07:18:00 Test Item Value Reference Range Interpretation Comments CO2 (test code = CO2) 25 24-32 [facility]2018-12-24 07:18:00 Test Item Value Reference Range Interpretation Comments Potassium Lvl (test code = Potassium 4.7 3.5-5.1 Lvl) [facility]2018-12-24 07:18:00 Test Item Value Reference Range Interpretation Comments Sodium Lvl (test code = Sodium Lvl) 141 135-145 [facility]2018-12-24 07:18:00 Test Item Value Reference Range Interpretation Comments AGAP (test code = AGAP) 12.7 10.0-20.0 [facility]2018-12-24 07:18:00 Test Item Value Reference Range Interpretation Comments Calcium Lvl (test code = Calcium Lvl) 9.3 8.5-10.5 [facility]2018-12-24 07:18:00 Test Item Value Reference Range Interpretation Comments Creatinine Lvl (test code = Creatinine 1.24 0.50-1.40 Lvl) [facility]2018-12-24 07:18:00 Test Item Value Reference Range Interpretation Comments Glucose Lvl (test code = Glucose Lvl) 96 70-99 [facility]2018-12-24 07:18:00 Test Item Value Reference Range Interpretation Comments BUN (test code = BUN) 18 7-22 [facility]2018-12-24 07:18:00 Test Item Value Reference Range Interpretation Comments Phosphorus (test code = Phosphorus) 2.7 2.5-4.5 [facility]2018-12-24 07:18:00 Test Item Value Reference Range Interpretation Comments eGFR (test code = eGFR) 43 [facility]2018-12-24 07:18:00 Test Item Value Reference Range Interpretation Comments Chloride Lvl (test code = Chloride Lvl) 108 95-109 [facility]2018-12-24 07:18:00 Test Item Value Reference Range Interpretation Comments CO2 (test code = CO2) 25 24-32 [facility]2018-12-24 07:18:00 Test Item Value Reference Range Interpretation Comments Potassium Lvl (test code = Potassium 4.7 3.5-5.1 Lvl) [facility]2018-12-24 07:18:00 Test Item Value Reference Range Interpretation Comments Sodium Lvl (test code = Sodium Lvl) 141 135-145 [facility]2018-12-24 07:18:00 Test Item Value Reference Range Interpretation Comments AGAP (test code = AGAP) 12.7 10.0-20.0 [facility]2018-12-24 07:18:00 Test Item Value Reference Range Interpretation Comments Calcium Lvl (test code = Calcium Lvl) 9.3 8.5-10.5 [facility]2018-12-24 07:18:00 Test Item Value Reference Range Interpretation Comments Creatinine Lvl (test code = Creatinine 1.24 0.50-1.40 Lvl) [facility]2018-12-24 07:18:00 Test Item Value Reference Range Interpretation Comments Glucose Lvl (test code = Glucose Lvl) 96 70-99 [facility]2018-12-24 07:18:00 Test Item Value Reference Range Interpretation Comments BUN (test code = BUN) 18 7-22 [facility]2018-12-24 07:18:00 Test Item Value Reference Range Interpretation Comments Phosphorus (test code = Phosphorus) 2.7 2.5-4.5 [facility]2018-12-23 23:53:00 Test Item Value Reference Range Interpretation Comments Lactic Acid Lvl (test code = Lactic 0.7 0.5-2.2 Acid Lvl) [facility]2018-12-23 23:53:00 Test Item Value Reference Range Interpretation Comments Lactic Acid Lvl (test code = Lactic 0.7 0.5-2.2 Acid Lvl) [facility] [id number] 09:13:00 Test Item Value Reference Range Interpretation Comments Folate Lvl (test code = Folate Lvl) 4.0 [facility] [id number] 09:13:00 Test Item Value Reference Range Interpretation Comments Vitamin B12 Lvl (test code = Vitamin 2068 272-5204 B12 Lvl) [facility] [id number] 09:13:00 Test Item Value Reference Range Interpretation Comments Troponin-I (test code no gt See_Comment [Auto mated message] The = Troponin-I) system which g enerated this result transmit janine reference range : <=0.40. The reference r bharti was not used to interpr et this result as zaida l/abnormal. [facility] [id number] 09:13:00 Test Item Value Reference Range Interpretation Comments Phosphorus (test code = Phosphorus) 3.1 2.5-4.5 [facility] [id number] 09:13:00 Test Item Value Reference Range Interpretation Comments Vitamin D, 25-OH, Total (test code = 9.3 30.0-100.0 Vitamin D, 25-OH, Total) [facility] [id number] 09:13:00 Test Item Value Reference Range Interpretation Comments Folate Lvl (test code = Folate Lvl) 4.0 [facility]2018-12-23 09:13:00 Test Item Value Reference Range Interpretation Comments Vitamin B12 Lvl (test code = Vitamin 1631 248-3717 B12 Lvl) [facility]2018-12-23 09:13:00 Test Item Value Reference Range Interpretation Comments Troponin-I (test code no gt See_Comment [Auto mated message] The = Troponin-I) system which g enerated this result transmit janine reference range : <=0.40. The reference r bharti was not used to interpr et this result as zaida l/abnormal. [facility] CenterFile[facility] [id number] 09:13:00 Test Item Value Reference Range Interpretation Comments Phosphorus (test code = Phosphorus) 3.1 2.5-4.5 [facility] [id number] 09:13:00 Test Item Value Reference Range Interpretation Comments Vitamin D, 25-OH, Total (test code = 9.3 30.0-100.0 Vitamin D, 25-OH, Total) [facility] JeannieTAMICIN:SUSC:PT:ISOLATE:ORDQN:[id number] 20:17:00 Test Item Value Reference Range Interpretation Comments Culture: Urine (test 50,000 - 100,000 CFU/mL code = Culture: Proteus mirabilis ESBL , Urine) Multi-drug Resistant Organism [facility] CenterZafarTAMICIN:SUSC:PT:ISOLATE:ORDQN:[id number] 20:17:00 Test Item Value Reference Range Interpretation Comments Proteus mirabilis ESBL Proteus mirabilis ESBL (test code = Proteus mirabilis ESBL) [facility] LeoGULF [facility] C[facility] SYSTEMMAITEMICIN:SUSC:PT:ISOLATE:ORDQN:[id number] 20:17:00 Test Item Value Reference Range Interpretation Comments Culture: Urine (test 50,000 - 100,000 CFU/mL code = Culture: Proteus mirabilis ESBL , Urine) Multi-drug Resistant Organism [facility] CentervalentinGULF [facility] SYSTEMMAITEMICIN:SUSC:PT:ISOLATE:ORDQN:[id number] 20:17:00 Test Item Value Reference Range Interpretation Comments Proteus mirabilis ESBL Proteus mirabilis ESBL (test code = Proteus mirabilis ESBL) [facility] CenterannCARDIAC [id number] 19:54:00 Test Item Value Reference Range Interpretation Comments Troponin-I (test code no gt See_Comment [Auto mated message] The = Troponin-I) system which g enerated this result transmit janine reference range : <=0.40. The reference r bharti was not used to interpr et this result as zaida l/abnormal. [facility] [id number] 19:54:00 Test Item Value Reference Range Interpretation Comments UA Sq Epi (test code = UA Sq Moderate /LPF Epi) [facility] [id number] 19:54:00 Test Item Value Reference Range Interpretation Comments UA WBC (test code = UA WBC) 51-100 /HPF [facility]ann[facility] AND [id number] 19:54:00 Test Item Value Reference Range Interpretation Comments UA RBC (test code 11-20 /HPF See_Comment [Automate d message] The = UA RBC) system which ge nerated this result tra nsmitted reference range : <=2. The reference range was not used to interpr et this result as normal/abnormal . [facility] AND [id number] 19:54:00 Test Item Value Reference Range Interpretation Comments UA Tr Phos Sofiya (test code = UA Tr Many /HPF Phos Sofiya) [facility] AND [id number] 19:54:00 Test Item Value Reference Range Interpretation Comments UA Bacteria (test code = UA Many /HPF Bacteria) [facility] AND [id number] 19:54:00 Test Item Value Reference Range Interpretation Comments UA pH (test code = UA pH) 7.5 1 5.0-8.0 [facility] AND [id number] 19:54:00 Test Item Value Reference Range Interpretation Comments UA Glucose (test code = UA Glucose) 100 mg/dL [facility] AND [id number] 19:54:00 Test Item Value Reference Range Interpretation Comments UA Protein (test code = UA Protein) 100 mg/dL [facility] AND [id number] 19:54:00 Test Item Value Reference Range Interpretation Comments UA Spec Grav (test code = UA Spec 1.020 1 Grav) [facility] AND [id number] 19:54:00 Test Item Value Reference Range Interpretation Comments UA Turbidity (test code Cloudy *ABN*(09/22/18 = UA Turbidity) 1:54 PM) [facility] AND [id number] 19:54:00 Test Item Value Reference Range Interpretation Comments UA Color (test code = Yellow *NA*(09/22/18 UA Color) 1:54 PM) [facility] AND [id number] 19:54:00 Test Item Value Reference Range Interpretation Comments UA Leuk Est (test code Large *ABN*(09/22/18 = UA Leuk Est) 1:54 PM) [facility] AND [id number] 19:54:00 Test Item Value Reference Range Interpretation Comments UA Nitrite (test code Positive *ABN*(09/22/18 = UA Nitrite) 1:54 PM) [facility] AND [id number] 19:54:00 Test Item Value Reference Range Interpretation Comments UA Blood (test code = Moderate *ABN*(09/22/18 UA Blood) 1:54 PM) [facility] [id number] 19:54:00 Test Item Value Reference Range Interpretation Comments UA Urobilinogen (test code = UA 4.0 0.1-1.0 Urobilinogen) [facility] [id number] 19:54:00 Test Item Value Reference Range Interpretation Comments UA Ketones (test code Negative *NA*(09/22/18 = UA Ketones) 1:54 PM) [facility] [id number] 19:54:00 Test Item Value Reference Range Interpretation Comments UA Bili (test code = Small *ABN*(09/22/18 UA Bili) 1:54 PM) [facility]annCARDIAC [id number] 19:54:00 Test Item Value Reference Range Interpretation Comments Troponin-I (test code no gt See_Comment [Auto mated message] The = Troponin-I) system which g enerated this result transmit janine reference range : <=0.40. The reference r bharti was not used to interpr et this result as zaida l/abnormal. [facility] HermannURINE AND [id number] 19:54:00 Test Item Value Reference Range Interpretation Comments UA Sq Epi (test code = UA Sq Moderate /LPF Epi) [facility]annH[facility] AND [id number] 19:54:00 Test Item Value Reference Range Interpretation Comments UA WBC (test code = UA WBC) 51-100 /HPF [facility] [id number] 19:54:00 Test Item Value Reference Range Interpretation Comments UA RBC (test code 11-20 /HPF See_Comment [Automate d message] The = UA RBC) system which ge nerated this result tra nsmitted reference range : <=2. The reference range was not used to interpr et this result as normal/abnormal . [facility] [id number] 19:54:00 Test Item Value Reference Range Interpretation Comments UA Tr Phos Sofiya (test code = UA Tr Many /HPF Phos Sofiya) [facility] [id number] 19:54:00 Test Item Value Reference Range Interpretation Comments UA Bacteria (test code = UA Many /HPF Bacteria) [facility] AND [id number] 19:54:00 Test Item Value Reference Range Interpretation Comments UA pH (test code = UA pH) 7.5 1 5.0-8.0 [facility] AND [id number] 19:54:00 Test Item Value Reference Range Interpretation Comments UA Glucose (test code = UA Glucose) 100 mg/dL [facility] AND [id number] 19:54:00 Test Item Value Reference Range Interpretation Comments UA Protein (test code = UA Protein) 100 mg/dL [facility] AND [id number] 19:54:00 Test Item Value Reference Range Interpretation Comments UA Spec Grav (test code = UA Spec 1.020 1 Grav) [facility] AND [id number] 19:54:00 Test Item Value Reference Range Interpretation Comments UA Turbidity (test code Cloudy *ABN*(09/22/18 = UA Turbidity) 1:54 PM) [facility] AND [id number] 19:54:00 Test Item Value Reference Range Interpretation Comments UA Color (test code = Yellow *NA*(09/22/18 UA Color) 1:54 PM) [facility] AND [id number] 19:54:00 Test Item Value Reference Range Interpretation Comments UA Leuk Est (test code Large *ABN*(09/22/18 = UA Leuk Est) 1:54 PM) [facility] AND [id number] 19:54:00 Test Item Value Reference Range Interpretation Comments UA Nitrite (test code Positive *ABN*(09/22/18 = UA Nitrite) 1:54 PM) [facility] AND [id number] 19:54:00 Test Item Value Reference Range Interpretation Comments UA Blood (test code = Moderate *ABN*(09/22/18 UA Blood) 1:54 PM) [facility] AND [id number] 19:54:00 Test Item Value Reference Range Interpretation Comments UA Urobilinogen (test code = UA 4.0 0.1-1.0 Urobilinogen) [facility] AND [id number] 19:54:00 Test Item Value Reference Range Interpretation Comments UA Ketones (test code Negative *NA*(09/22/18 = UA Ketones) 1:54 PM) [facility] AND [id number] 19:54:00 Test Item Value Reference Range Interpretation Comments UA Bili (test code = Small *ABN*(09/22/18 UA Bili) 1:54 PM) [facility] [id number] 08:34:00 Test Item Value Reference Range Interpretation Comments ABO/Rh (test code = ABO/Rh) O NEG [facility] [id number] 08:34:00 Test Item Value Reference Range Interpretation Comments Antibody Scrn (test Negative (09/22/18 code = Antibody Scrn) 2:34 AM) [id number] 08:34:00 Test Item Value Reference Range Interpretation Comments Eosinophils # (test code 0.1 See_Comment [A utomated message] The = Eosinophils #) system [employer] generated this result tra nsmitted reference range : <=0.5. The reference r bharti was not used to int erpret this result as normal/abnormal . [facility] [id number] 08:34:00 Test Item Value Reference Range Interpretation Comments Macrocyte (test code = 1+ *ABN*(09/22/18 Macrocyte) 2:34 AM) [facility] [id number] 08:34:00 Test Item Value Reference Range Interpretation Comments Eosinophils (test code = 1.1 See_Comment [A utomated message] The Eosinophils) system which ge nerated this result tra nsmitted reference range : <=4.0. The reference r bhatri was not used to int erpret this result as normal/abnormal . [facility] [id number] 08:34:00 Test Item Value Reference Range Interpretation Comments ABO/Rh (test code = ABO/Rh) O NEG [facility] [id number] 08:34:00 Test Item Value Reference Range Interpretation Comments Antibody Scrn (test Negative (09/22/18 code = Antibody Scrn) 2:34 AM) [facility] Camp[id number] 08:34:00 Test Item Value Reference Range Interpretation Comments Eosinophils # (test code 0.1 See_Comment [A utomated message] The = Eosinophils #) system whic h generated this result tra nsmitted reference range : <=0.5. The reference r bharti was not used to int erpret this result as normal/abnormal . [facility] HospitalEupslvySBNMOOOYCE5413-70-01 08:34:00 Test Item Value Reference Range Interpretation Comments Macrocyte (test code = 1+ *ABN*(09/22/18 Macrocyte) 2:34 AM) [facility] HospitalZlrwlwjAEBVIOYPHT0172-12-13 08:34:00 Test Item Value Reference Range Interpretation Comments Eosinophils (test code = 1.1 See_Comment [A utomated message] The Eosinophils) system which ge nerated this result tra nsmitted reference range : <=4.0. The reference r bharti was not used to int erpret this result as normal/abnormal . [facility] [id number] 17:53:00 Test Item Value Reference Range Interpretation Comments CREATININE CLEARANCE 47.2 mL/min 70.0-140.0 L ([facility]) (test code = 357) VOLUME, TOTAL ([facility]) 1050 ml (test code = 1457) CREATININE URINE 78.9 mg/dL ([facility]) (test code = 375) ENTE-FOLYAVYRXPY-135 Linda Pitts MD ([facility]) (test code = (electronic signature) 1968) POCT-GLUCOSE [id number] 11:37:00 Test Item Value Reference Range Interpretation Comments POC-GLUCOSE METER 128 mg/dL 70-110 H TESTED AT [place] [address] ([facility]) (test code = [place] 1538) [address] URINE [id number] 11:02:00 Test Item Value Reference Range Interpretation Comments CULTURE ([facility]) (test <10,000 col/mL skin code = 1095) jayshree POCT-GLUCOSE [id number] 06:28:00 Test Item Value Reference Range Interpretation Comments POC-GLUCOSE METER 101 mg/dL 70-[address] [facility] 6720 ([facility]) (test code = [place] 1538) [address] POCT-GLUCOSE [id number] 00:46:00 Test Item Value Reference Range Interpretation Comments POC-GLUCOSE METER 130 mg/dL 70-110 H TESTED AT [place] [address] ([facility]) (test code = [place] 1538) [address] POCT-GLUCOSE [id number] 20:21:00 Test Item Value Reference Range Interpretation Comments POC-GLUCOSE METER 133 mg/dL 70-110 H TESTED AT [place] [address] ([facility]) (test code = JOSEPH Hendrix [facility] 1538) [address] [id number] 18:44:00 Test Item Value Reference Range Interpretation Comments CREATININE ([facility]) 0.82 mg/dL 0.57-1.25 (test code = 358) EGFR ([facility]) (test 69 mL/min/1.73 ESTIMA JANINE GFR IS code = 1092) sq m NOT ACCURATE CREATININE CLEARANCE IN PREDICTING GLOMERULAR FILTRATION RATE . ESTIMATED GFR I S NOT APPLICABLE FOR DIALYSIS PATIEN TS. POCT-GLUCOSE [id number] 17:11:00 Test Item Value Reference Range Interpretation Comments POC-GLUCOSE METER 118 mg/dL 70-110 H TESTED AT [place] [address] ([facility]) (test code = JOSEPH Hendrix [facility] 1538) [address] POCT-GLUCOSE [id number] 15:29:00 Test Item Value Reference Range Interpretation Comments POC-GLUCOSE METER 63 mg/dL 70-110 L Notified R Ravinder COTO/TESTED AT ([facility]) (test code = [place] [address]008) [facility] [address] 0 POCT-GLUCOSE [id number] 15:03:00 Test Item Value Reference Range Interpretation Comments POC-GLUCOSE METER 51 mg/dL 70-110 L Notified R Ravinder COTO/TESTED AT ([facility]) (test code = [place] [address]23008) [facility] 7703 0 POCT-GLUCOSE [id number] 11:28:00 Test Item Value Reference Range Interpretation Comments POC-GLUCOSE METER 75 mg/dL 70-110 TESTED AT [place] [address] ([facility]) (test code = INOCENTE[place] Simeon [facility] [address] 1538) CALCIUM, 24 HOUR [id number] 09:19:00 Test Item Value Reference Range Interpretation Comments VOLUME, TOTAL ([facility]) (test 1050 ml code = 1457) CALCIUM URINE ([facility]) (test 15.4 mg/dL code = 396) CALCIUM, 24HR URINE ([facility]) 162 mg/24 Hr 50-300 (test code = 1520) VITAMIN D, 97-[id number] 07:18:00 Test Item Value Reference Range Interpretation Comments VITAMIN D 25-OH (BEAKER) (test code = < ng/mL 13.0-47.8 L 2764) CBC W/PLT COUNT & AUTO [id number] 07:04:00 Test Item Value Reference Range Interpretation [...] 0.00-0.20 (test code = 417) 0.00BASIC METABOLIC [id number] 07:01:00 Test Item Value Reference Range Interpretation [...] S NOT APPLICABLE FOR DIALYSIS PATIEN TS. [id number] 06:57:00 Test Item Value Reference Range Interpretation Comments PHOSPHORUS (BEAKER) (test code = 3.0 mg/dL 2.3-4.7 604) [id number] 06:57:00 Test Item Value Reference Range Interpretation Comments MAGNESIUM (BEAKER) (test code = 2.2 mg/dL 1.6-2.6 627) [id number] 06:34:00 Test Item Value Reference Range Interpretation Comments ALBUMIN (BEAKER) (test code = 1145) 3.8 g/dL 3.5-5.0 POCT-GLUCOSE [id number] 06:32:00 Test Item Value Reference Range Interpretation Comments POC-GLUCOSE METER 104 mg/dL 70-[address] [facility] 6720 (BEAKER) (test code = [place] 1538) [address] POCT-GLUCOSE [id number] 23:41:00 Test Item Value Reference Range Interpretation Comments POC-GLUCOSE METER 108 mg/dL 70-110 TESTED AT [place] [address] (BEAKER) (test code = JOSEPH Hendrix [facility] 1538) [address] POCT-GLUCOSE [id number] 17:58:00 Test Item Value Reference Range Interpretation Comments POC-GLUCOSE METER 112 mg/dL 70-110 H TESTED AT [place] [address] (BEAKER) (test code = JOSEPH Hendrix [facility] 1538) [address] URINALYSIS W/ REFLEX URINE [id number] 16:02:00 Test Item Value Reference Range Interpretation [...] 514) SOURCE(BEAKER) (test code = 2795) POCT-GLUCOSE [id number] 12:49:00 Test Item Value Reference Range Interpretation Comments POC-GLUCOSE METER 79 mg/dL 70-110 TESTED AT [place] [address] (BEAKER) (test code = [facility] Simeon [facility] [address] 1538) CBC W/PLT COUNT & AUTO [id number] 09:59:00 Test Item Value Reference Range Interpretation [...] (BEAKER) (test code = Normal 762) POCT-GLUCOSE [id number] 06:20:00 Test Item Value Reference Range Interpretation Comments POC-GLUCOSE METER 140 mg/dL 70-[address] [facility] 6720 (BEAKER) (test code = JO[place] 1538) [address] [id number] 06:11:00 Test Item Value Reference Range Interpretation Comments ALBUMIN (BEAKER) 3.2 g/dL 3.5-5.0 L Specimen mo derately (test code = 1145) hemolyzed BASIC METABOLIC [id number] 06:00:00 Test Item Value Reference Range Interpretation [...] S NOT APPLICABLE FOR DIALYSIS PATIEN TS. [id number] 05:59:00 Test Item Value Reference Range Interpretation Comments PHOSPHORUS (BEAKER) (test code = 3.1 mg/dL 2.3-4.7 604) [id number] 05:59:00 Test Item Value Reference Range Interpretation Comments MAGNESIUM (BEAKER) (test code = 2.0 mg/dL 1.6-2.6 627) POCT-GLUCOSE [id number] 23:38:00 Test Item Value Reference Range Interpretation Comments POC-GLUCOSE METER 156 mg/dL 70-110 H TESTED AT [place] [address] ([facility]) (test code = [facility] 1538) [address] POCT-GLUCOSE [id number] 18:18:00 Test Item Value Reference Range Interpretation Comments POC-GLUCOSE METER 110 mg/dL 70-110 TESTED AT [place] [address] ([facility]) (test code = [facility] 1538) [address] POCT-GLUCOSE [id number] 11:44:00 Test Item Value Reference Range Interpretation Comments POC-GLUCOSE METER 79 mg/dL 70-110 TESTED AT [place] [address] ([facility]) (test code = [facility] [address] 1538) CBC W/PLT COUNT & AUTO [id number] 11:03:00 Test Item Value Reference Range Interpretation [...] (BEAKER) (test code = Normal 762) POCT-GLUCOSE [id number] 06:21:00 Test Item Value Reference Range Interpretation Comments POC-GLUCOSE METER 152 mg/dL 70-[address] [facility] 6720 (BEAKER) (test code = [facility] Simeon [facility] 1538) [address] BASIC METABOLIC [id number] 06:04:00 Test Item Value Reference Range Interpretation [...] 8.4-10.2 H (test code = 697) [facility] (test 66 mL/min/1.73 ESTIMA JANINE GFR IS code = 1092) sq m NOT ACCURATE CREATININE CLEARANCE IN PREDICTING GLOMERULAR FILTRATION RATE . ESTIMATED GFR I S NOT APPLICABLE FOR DIALYSIS PATIEN TS. [id number] 05:56:00 Test Item Value Reference Range Interpretation Comments PHOSPHORUS (BEAKER) (test code = 3.5 mg/dL 2.3-4.7 604) [id number] 05:56:00 Test Item Value Reference Range Interpretation Comments MAGNESIUM (BEAKER) (test code = 1.9 mg/dL 1.6-2.6 627) POCT-GLUCOSE [id number] 23:51:00 Test Item Value Reference Range Interpretation Comments POC-GLUCOSE METER 168 mg/dL 70-110 H TESTED AT [place] [address] ([facility]) (test code = [facility] 1538) [address] POCT-GLUCOSE [id number] 18:34:00 Test Item Value Reference Range Interpretation Comments POC-GLUCOSE METER 80 mg/dL 70-110 TESTED AT [place] [address] ([facility]) (test code = [facility] [address] 1538) POCT-GLUCOSE [id number] 16:09:00 Test Item Value Reference Range Interpretation Comments POC-GLUCOSE METER 83 mg/dL 70-110 TESTED AT [place] [address] ([facility]) (test code = [facility] [address] 1538) POCT-GLUCOSE [id number] 16:09:00 Test Item Value Reference Range Interpretation Comments POC-GLUCOSE METER 41 mg/dL 70-110 L TESTED AT [place] [address] ([facility]) (test code = [facility] [address] 1538) POCT-GLUCOSE [id number] 15:20:00 Test Item Value Reference Range Interpretation Comments POC-GLUCOSE METER 44 mg/dL 70-110 L TESTED AT [place] [address] (BEAKER) (test code = [facility] Simeon [facility] [address] 1538) POCT-GLUCOSE [id number] 08:27:00 Test Item Value Reference Range Interpretation Comments POC-GLUCOSE METER 114 mg/dL 70-110 H TESTED AT [place] [address] (BEAKER) (test code = [facility] 1538) [address] POCT-GLUCOSE [id number] 08:27:00 Test Item Value Reference Range Interpretation Comments POC-GLUCOSE METER 35 mg/dL 70-110 LL TESTED AT [place] [address] [facility] (test code = [facility] [address] 1538) CBC W/PLT COUNT & AUTO [id number] 07:04:00 Test Item Value Reference Range Interpretation Comments WHITE BLOOD CELL COUNT (BEAKER) 8.2 K/ L 4.0-10.0 (test code = [...] L 0.00-0.20 (test code = 417) 0.00POCT-GLUCOSE [id number] 06:20:00 Test Item Value Reference Range Interpretation Comments POC-GLUCOSE METER 62 mg/dL 70-110 L Notified R Ravinder COTO/TESTED AT (BEAKER) (test code = [facility] [address] [place] [address]) [facility] 7[address] 0 BASIC METABOLIC [id number] 06:13:00 Test Item Value Reference Range Interpretation [...] S NOT APPLICABLE FOR DIALYSIS PATIEN TS. [id number] 06:10:00 Test Item Value Reference Range Interpretation Comments PHOSPHORUS (BEAKER) (test code = 3.5 mg/dL 2.3-4.7 604) [id number] 06:10:00 Test Item Value Reference Range Interpretation Comments MAGNESIUM ([facility]) (test code = 2.2 mg/dL 1.6-2.6 627) PROTHROMBIN [id number] 06:05:00 Test Item Value Reference Range Interpretation Comments PROTIME ([facility]) (test code = 15.5 seconds 11.7-14.7 H 759) INR ([facility]) (test code = 370) 1.2 <=5.9 RECOMMENDED COUMADIN/WARFARIN INR THERAPY RANGESSTANDARD DOSE: 2.0 - 3.0 Includes: PROPHYLAXIS for venous thrombosis, systemic embolization; TREATMENT for venous thrombosis and/or pulmonary embolus.HIGH RISK: Target INR is 2.5-3.5 for patients with mechanical heart valves.POCT-GLUCOSE [id number] 23:58:00 Test Item Value Reference Range Interpretation Comments POC-GLUCOSE METER 108 mg/dL 70-110 TESTED AT [place] [address] ([facility]) ([facility] 1538) [address] POCT-GLUCOSE [id number] 18:02:00 Test Item Value Reference Range Interpretation Comments POC-GLUCOSE METER 126 mg/dL 70-110 H TESTED AT [place] [address] ([facility]) (test code = [facility] 1538) [address] PTH, [id number] 14:50:00 Test Item Value Reference Range Interpretation Comments PARATHYROID HORMONE INTACT 274.9 pg/mL 8.5-72.5 H ([facility]) (test code = 577) Effective 08/19/2014: Reference Range ChangeNew: 8.5-72.5 Previous: 15.0-90.0 POCT-GLUCOSE [id number] 13:33:00 Test Item Value Reference Range Interpretation Comments POC-GLUCOSE METER 145 mg/dL 70-110 H TESTED AT [place] [address] ([facility]) (test code = [facility] Simeon [facility] 1538) [address] CBC W/PLT COUNT & AUTO [id number] 08:35:00 Test Item Value Reference Range Interpretation Comments WHITE BLOOD CELL COUNT ([facility]) 10.2 K/ L 4.0-10.0 H (test code [...] (BEAKER) (test code = 1351) BASIC METABOLIC [id number] 06:00:00 Test Item Value Reference Range Interpretation [...] S NOT APPLICABLE FOR DIALYSIS PATIEN TS. [id number] 05:59:00 Test Item Value Reference Range Interpretation Comments MAGNESIUM (BEAKER) 2.4 mg/dL 1.6-2.6 Specimen slightly (test code = 627) hemolyzed [id number] 05:59:00 Test Item Value Reference Range Interpretation Comments PHOSPHORUS (BEAKER) 3.1 mg/dL 2.3-4.7 Specimen slightly (test code = 604) hemolyzed POCT-GLUCOSE [id number] 05:32:00 Test Item Value Reference Range Interpretation Comments POC-GLUCOSE METER 114 mg/dL 70-[address] [facility] 6720 (BEAKER) (test code = [place] 1538) [address] POCT-GLUCOSE [id number] 00:02:00 Test Item Value Reference Range Interpretation Comments POC-GLUCOSE METER 106 mg/dL 70-110 [facility] 67[facility] (BEAKER) (test code = [place] 1538) [address] POCT-GLUCOSE [id number] 18:28:00 Test Item Value Reference Range Interpretation Comments POC-GLUCOSE METER 150 mg/dL 70-[address] [facility] 67 (BEAKER) (test code = [place] 1538) [address] POCT-GLUCOSE [id number] 12:31:00 Test Item Value Reference Range Interpretation Comments POC-GLUCOSE METER 152 mg/dL 70-110 H TESTED AT [place] [address] (BEAKER) (test code = JOSEPH Hendrix [place] 1538) [address] POCT-GLUCOSE [id number] 05:41:00 Test Item Value Reference Range Interpretation Comments POC-GLUCOSE METER 120 mg/dL 70-110 H TESTED AT [place] [address] (BEAKER) (test code = JOSEPH Hendrix [facility] 1538) [address] CBC W/PLT COUNT & AUTO [id number] 05:00:00 Test Item Value Reference Range Interpretation [...] 0.00-0.20 (test code = 417) 0.00BASIC METABOLIC [id number] 04:58:00 Test Item Value Reference Range Interpretation [...] S NOT APPLICABLE FOR DIALYSIS PATIEN TS. [id number] 04:57:00 Test Item Value Reference Range Interpretation Comments MAGNESIUM (BEAKER) 2.5 mg/dL 1.6-2.6 Specimen slightly (test code = 627) hemolyzed [id number] 04:57:00 Test Item Value Reference Range Interpretation Comments PHOSPHORUS (BEAKER) 3.3 mg/dL 2.3-4.7 Specimen slightly (test code = 604) hemolyzed POCT-GLUCOSE [id number] 00:44:00 Test Item Value Reference Range Interpretation Comments POC-GLUCOSE METER 142 mg/dL 70-110 H TESTED AT [place] [address] (BEAKER) (test code = [place] 1538) [address] POCT-GLUCOSE [id number] 18:34:00 Test Item Value Reference Range Interpretation Comments POC-GLUCOSE METER 115 mg/dL 70-110 H TESTED AT [place] [address] (BEAKER) (test code = JOSEPH Hendrix [place] 1538) [address] POCT-GLUCOSE [id number] 12:21:00 Test Item Value Reference Range Interpretation Comments POC-GLUCOSE METER 123 mg/dL 70-110 H TESTED AT [place] [address] (BEAKER) (test code = JOSEPH Hendrix [place] 1538) [address] URINE [id number] 10:42:00 Test Item Value Reference Range Interpretation Comments CULTURE (BEAKER) (test code = 1095) No growth [id number] 06:53:00 Test Item Value Reference Range Interpretation Comments POTASSIUM (BEAKER) (test code = 3.6 meq/L 3.5-5.1 379) Check Serum Potassium level 2 hours after oral potassium replacement completed or 30 min after intravenous potassium replacement.[id number] 06:53:00 Test Item Value Reference Range Interpretation Comments MAGNESIUM (BEAKER) (test code = 2.7 mg/dL 1.6-2.6 H 627) Check Serum Potassium level 2 hours after oral potassium replacement completed or 30 min after intravenous potassium replacement.POCT-GLUCOSE [id number] 06:27:00 Test Item Value Reference Range Interpretation Comments POC-GLUCOSE METER 113 mg/dL 70-110 H TESTED AT [place] [address] (BEAKER) (test code = JOSEPH Hendrix [place] 1538) [address] BASIC METABOLIC [id number] 02:30:00 Test Item Value Reference Range Interpretation [...] S NOT APPLICABLE FOR DIALYSIS PATIEN TS. [id number] 02:29:00 Test Item Value Reference Range Interpretation Comments PHOSPHORUS (BEAKER) (test code = 3.5 mg/dL 2.3-4.7 604) [id number] 02:29:00 Test Item Value Reference Range Interpretation Comments MAGNESIUM (BEAKER) (test code = 2.2 mg/dL 1.6-2.6 627) [id number] 02:29:00 Test Item Value Reference Range Interpretation Comments SODIUM (BEAKER) (test code = 381) 139 meq/L 136-145 CBC W/PLT COUNT & AUTO [id number] 02:21:00 Test Item Value Reference Range Interpretation [...] L 0.00-0.20 (test code = 417) 0.00POCT-GLUCOSE [id number] 00:44:00 Test Item Value Reference Range Interpretation Comments POC-GLUCOSE METER 121 mg/dL 70-[address] [facility] 6720 (BEAKER) (test code = JOSEPH Hendrix [place] 1538) [address] [id number] 20:34:00 Test Item Value Reference Range Interpretation Comments SODIUM (BEAKER) (test code = 381) 138 meq/L 136-145 HEPATIC FUNCTION [id number] 20:34:00 Test Item Value Reference Range Interpretation [...] (test code = 15 U/L 6-55 347) [id number] 20:25:00 Test Item Value Reference Range Interpretation Comments AMMONIA (BEAKER) (test code = 348) 30 mol/L 18-72 POCT-GLUCOSE [id number] 19:58:00 Test Item Value Reference Range Interpretation Comments POC-GLUCOSE METER 125 mg/dL 70-110 H TESTED AT [place] [address] ([facility]) (test code = [facility] [place] 1538) [address] [id number] 14:30:00 Test Item Value Reference Range Interpretation Comments RPR SCREEN (BEAKER) (test code = Nonreactive Nonreactive 420) [id number] 13:35:00 Test Item Value Reference Range Interpretation Comments SODIUM (BEAKER) (test code = 381) 136 meq/L 136-145 [id number] 13:23:00 Test Item Value Reference Range Interpretation Comments CORTISOL, TOTAL (BEAKER) (test 11.7 ug/dL 3.7-19.4 code = 2755) POCT-GLUCOSE [id number] 13:22:00 Test Item Value Reference Range Interpretation Comments POC-GLUCOSE METER 117 mg/dL 70-110 H TESTED AT [place] [address] ([facility]) (test code = [facility] [place] 1538) [address] B-TYPE NATRIURETIC FACTOR (BNP)2016-12-26 11:55:00 Test Item Value Reference Range Interpretation Comments B-TYPE NATRIURETIC PEPTIDE (BEAKER) 115 pg/mL 0-100 H (test code = 700) [id number] 11:43:00 Test Item Value Reference Range Interpretation Comments MAGNESIUM (BEAKER) 2.5 mg/dL 1.6-2.6 Specimen slightly (test code = 627) hemolyzed OSMOLALITY, [id number] 04:32:00 Test Item Value Reference Range Interpretation Comments OSMOLALITY, SERUM (BEAKER) (test 303 mOsm/kg 275-295 H code = 615) LIPID [id number] 04:04:00 Test Item Value Reference Range Interpretation [...] 130-159 High 160-189 Very High >=190 Fasting [id number] 04:03:00 Test Item Value Reference Range Interpretation Comments PHOSPHORUS (BEAKER) (test code = 3.2 mg/dL 2.3-4.7 604) BASIC METABOLIC [id number] 04:03:00 Test Item Value Reference Range Interpretation [...] PATIEN TS. CBC W/PLT COUNT & AUTO [id number] 03:43:00 Test Item Value Reference Range Interpretation [...] (test code = 416) BASOPHILS ABSOLUTE COUNT ([facility]) 0.03 K/ L 0.00-0.20 (test code = 417) [id number] 01:55:00 Test Item Value Reference Range Interpretation Comments POTASSIUM (BEAKER) (test code = 3.2 meq/L 3.5-5.1 L 379) [id number] 01:55:00 Test Item Value Reference Range Interpretation Comments MAGNESIUM (BEAKER) (test code = 1.7 mg/dL 1.6-2.6 627) TROPONIN [id number] 01:21:00 Test Item Value Reference Range Interpretation Comments TROPONIN I (AKER) (test code = 0.01 ng/mL 0.00-0.03 397) [...] acidosis, acute neurological disease, and persistent tachyarrhythmia.POCT-GLUCOSE [id number] 01:03:00 Test Item Value Reference Range Interpretation Comments POC-GLUCOSE METER 161 mg/dL 70-110 H TESTED AT [place] [address] ([facility]) (test code = JOSEPH Hendrix [facility] 1538) [id number] POCT-GLUCOSE [id number] 00:22:00 Test Item Value Reference Range Interpretation Comments POC-GLUCOSE METER 62 mg/dL 70-110 L Notified Simeon Montes MD/TESTED AT ([facility]) (test code = [place] [address] [place] 1538) [facility] [address] HEMOGLOBIN [id number] 22:44:00 Test Item Value Reference Range Interpretation Comments HEMOGLOBIN A1C ([facility]) (test code = 5.0 % 4.3-6.1 368) TSH/FREE T4 IF [id number] 21:14:00 Test Item Value Reference Range Interpretation Comments THYROID STIMULATING HORMONE 2.66 uIU/mL 0.35-4.94 ([facility]) (test code = 772) VITAMIN B12 AND [id number] 21:14:00 Test Item Value Reference Range Interpretation Comments VITAMIN B12 (BEAKER) (test code = 325 pg/mL 213-816 774) FOLATE (BEAKER) (test code = 362) 11.9 ng/mL >=7.0 Effective 08/19/2014: Folate Reference Range ChangeNew: >=7.0 Previous: >=5.4CBC W/PLT COUNT & AUTO [id number] 19:39:00 Test Item Value Reference Range Interpretation [...] L 0.00-0.20 (test code = 417) 0.00TROPONIN [id number] 19:31:00 Test Item Value Reference Range Interpretation [...] pg/mL 0-100 (test code = 700) LIPID [id number] 19:24:00 Test Item Value Reference Range Interpretation [...] 130-159 High 160-189 Very High >=190BASIC METABOLIC [id number] 19:24:00 Test Item Value Reference Range Interpretation [...] NOT APPLICABLE FOR DIALYSIS PATIEN TS. PROTHROMBIN [id number] 19:17:00 Test Item Value Reference Range Interpretation Comments PROTIME (BEAKER) (test code = 14.1 seconds 11.7-14.7 759) INR (BEAKER) (test code = 370) 1.1 <=5.9 RECOMMENDED COUMADIN/WARFARIN INR THERAPY RANGESSTANDARD DOSE: 2.0 - 3.0 Includes: PROPHYLAXIS for venous thrombosis, systemic embolization; TREATMENT for venous thrombosis and/or pulmonary embolus.HIGH RISK: Target INR is 2.5-3.5 for patients with mechanical heart valves.[id number] 19:17:00 Test Item Value Reference Range Interpretation Comments PARTIAL THROMBOPLASTIN TIME 24.9 seconds 22.5-36.0 (BEAKER) (test code = 760) URINALYSIS W/ [id number] 19:15:00 Test Item Value Reference Range Interpretation [...] 516) SOURCE(BEAKER) (test code = Urine, Thapa 1285) POCT-GLUCOSE [id number] 18:33:00 Test Item Value Reference Range Interpretation Comments POC-GLUCOSE METER 75 mg/dL 70-[address] [facility] 67 (BEAKER) (test code = JOSEPH TEJADA 13792 1538)
[2022-08-18] MEDS ORDERED: FUROSEMIDE 40 MG/4 ML VIAL ONE (16:54)
[2022-08-18 17:26] LABS: Hematocrit 31.7 % (36.0-45.0); Lymphocytes % 22.4 % (15.3-44.8); MPV 6.6 fL (7.6-11.3); Protime INR 1.35; RBC Red Blood Cell Count 3.23 M/uL (3.86-4.86)
[2022-08-18 17:40] LABS: Bilirubin Direct 0.2 mg/dL (0-0.2); Bilirubin Total 0.5 mg/dL (0.2-1.0); Protein, Total 6.2 g/dL (6.4-8.2); Troponin High Sensitivity 23.3 pg/mL (<58.9)
--- NOTE | 2022-08-18 17:46 | RAD REPORT ---
EXAM DESCRIPTION: RAD - Chest Single View - 08/18/2022 5:38 pm CLINICAL HISTORY: Cough COMPARISON: Chest Single View dated 06/16/2022; Chest Single View dated 05/11/2022; Chest Single View dated 07/15/2021; Chest Single View dated 03/06/2019 FINDINGS: Lines: None. Lungs: Low lung volumes. Similar prominence of the pulmonary interstitium. . Pleural: No significant pleural effusions or pneumothorax. Cardiac: Cardiomegaly. Mediastinum: Within normal limits. Bones: No acute fractures. Other: None IMPRESSION: No acute cardiopulmonary disease.
[2022-08-18 17:57] LABS: SARS-COV-2 RT PCR NEGATIVE (NEGATIVE)
--- NOTE | 2022-08-18 18:20 | EDPHYS ---
Physician Documentation [facility] Name: Rocio Quiroz Age: 77 yrs Sex: Female : 1945 Arrival Date: 08/18/2022 Time: 16:26 Bed 8 Private MD: ED Physician Tayo Rosa HPI: 08/18 16:40 This 77 yrs old Female presents to ER via EMS with complaints of Shortness Of Breath. cp 16:40 The patient has shortness of breath at rest. cp 16:40 Onset: The symptoms/episode began/occurred today. Duration: The symptoms are cp continuous, and are steadily getting worse. Associated signs and symptoms: Pertinent negatives: chest pain, diaphoresis, fever. Severity of symptoms: in the emergency department the symptoms are unchanged despite EMS interventions. Historical: - Allergies: 16:45 Aspirin; vg1 16:45 Demerol; vg1 16:45 Haldol; vg1 16:45 Ibuprofen; vg1 16:45 Iodine; vg1 16:45 IV contrast; vg1 16:45 Latex, Natural Rubber; vg1 16:45 Morphine; vg1 16:45 PENICILLINS; vg1 - PMHx: 16:45 Anemia; Anxiety; Atrial Fib; Cerebral infarction; CHF; COPD; depressive disorder; vg1 Diverticulitis; DYSPHAGIA; Hypercholesterolemia; Hypertensive disorder; insomnia; Sleep Apnea; vitamin d deficiency; - Immunization history:: Client reports receiving the 2nd dose of the Covid vaccine. - Social history:: Smoking status: unknown. ROS: 16:45 Constitutional: Negative for body aches, fever, poor PO intake. cp 16:45 Eyes: Negative for injury, pain, redness, and discharge. cp 16:45 ENT: Negative for drainage from ear(s), ear pain, sore throat, difficulty swallowing, difficulty handling secretions. 16:45 Cardiovascular: Negative for chest pain. 16:45 Respiratory: Positive for shortness of breath, at rest. 16:45 Abdomen/GI: Negative for abdominal pain, vomiting, diarrhea, constipation. 16:45 Neuro: Negative for altered mental status, headache. 16:45 All other systems are negative. Exam: 16:40 ECG was reviewed by the Attending Physician. cp 16:45 Head/Face: Normocephalic, atraumatic. cp 16:45 Constitutional: The patient appears alert, awake, non-toxic, well developed, well nourished, obese, in obvious distress, mildly distressed. 16:45 Eyes: Periorbital structures: appear normal, Conjunctiva: normal, no exudate, no injection, Sclera: no appreciated abnormality, Lids and lashes: appear normal, bilaterally. 16:45 ENT: External ear(s): are unremarkable, Nose: is normal, Mouth: Lips: moist, Oral mucosa: moist, Posterior pharynx: Airway: no evidence of obstruction, patent. 16:45 Neck: ROM/movement: is normal, is supple, without pain, no range of motions limitations. 16:45 Chest/axilla: Inspection: normal, Palpation: is normal, no crepitus, no tenderness. 16:45 Cardiovascular: Rate: tachycardic, Rhythm: irregular, Edema: ankle edema, that is moderate, JVD: is not appreciated. 16:45 Respiratory: mild respiratory distress is noted, Respirations: shallow respirations, that is mild, Breath sounds: bronchial sounds, that are moderate, are heard diffusely, decreased breath sounds, are not appreciated, stridor, is not appreciated, wheezing: is not appreciated. 16:45 Abdomen/GI: Inspection: obese Bowel sounds: active, all quadrants, Palpation: abdomen is soft and non-tender, in all quadrants. 16:45 Neuro: Orientation: to person, place \T\ time. Mentation: is normal, Sensation: no obvious gross deficits. Vital Signs: 16:45 BP 160 / 82; Pulse 140; Resp 26; Temp 99.5(O); Pulse Ox 97% on R/A; vg1 17:30 BP 120 / 95; Pulse 114; Resp 24; Pulse Ox 97% on R/A; vg1 18:30 BP 96 / 68; Pulse 124; Resp 24; Pulse Ox 97% on R/A; vg1 20:01 BP 106 / 71; Pulse 105; Resp 26; Pulse Ox 95% on R/A; Pain 3/10; tw5 21:19 BP 98 / 60; Pulse 111; Resp 20; Pulse Ox 96% on R/A; tw5 18:30 Page PA aware of pt BP vg1 MDM: 16:34 Patient medically screened. cp 18:33 Data reviewed: vital signs, nurses notes, lab test result(s), EKG, radiologic studies, cp plain films. 18:33 Test interpretation: by ED physician or midlevel provider: ECG, plain radiologic cp studies. Counseling: I had a detailed discussion with the patient and/or guardian regarding: the historical points, exam findings, and any diagnostic results supporting the discharge/admit diagnosis, lab results, radiology results, the need for further work-up and treatment in the hospital. Response to treatment: the patient's symptoms have markedly improved after treatment. Physician consultation: Merlin RICHARDSON was contacted at 18:30, regarding admission, to the telemetry unit. patient's condition. 08/18 16:37 Order name: Basic Metabolic Panel; Complete Time: 17:44 08/18 17:44 Interpretation: Normal except: GLUC 129; GFR 68. 08/18 16:37 Order name: CBC with Diff; Complete Time: 17:35 08/18 17:35 Interpretation: Normal except: WBC 13.50; RBC 3.23; HGB 10.2; HCT 31.7; RDW 16.2; MPV cp 6.6; JEROMY% 73.8; MN% 2.7; NEUT A 10.0. 08/18 16:37 Order name: LFT's; Complete Time: 17:44 08/18 17:44 Interpretation: Normal except: ALK 161; TP 6.2; ALB 2.0; GLOB 4.2; A/G 0.5. 08/18 16:37 Order name: Magnesium; Complete Time: 17:44 08/18 16:37 Order name: NT PRO-BNP; Complete Time: 17:44 08/18 17:44 Interpretation: Abnormal: NT PRO-BNP 5540. 08/18 16:37 Order name: PT-INR; Complete Time: 17:35 08/18 16:37 Order name: Troponin HS; Complete Time: 17:44 08/18 17:44 Interpretation: Troponin HS 23.3; Reviewed. 08/18 16:37 Order name: Urine Microscopic Only; Complete Time: 19:21 08/18 16:37 Order name: Lactate w/ 2H reflex if indic.; Complete Time: 17:44 08/18 17:45 Interpretation: LAC 0.9; Reviewed. 08/18 16:37 Order name: Procalcitonin; Complete Time: 18:18 08/18 16:37 Order name: Blood Culture Adult (2) cp 08/18 16:37 Order name: COVID-19/FLU A+B; Complete Time: 18:06 08/18 18:33 Order name: Urine Dipstick-Ancillary; Complete Time: 18:54 EDMS 08/18 18:55 Order name: Urine Culture la1 08/18 16:37 Order name: XRAY Chest (1 view); Complete Time: 18:06 08/18 18:21 Interpretation: Report reviewed. 08/18 16:37 Order name: EKG; Complete Time: 16:37 08/18 16:37 Order name: Cardiac monitoring; Complete Time: 16:51 08/18 16:37 Order name: EKG - Nurse/Tech; Complete Time: 16:51 08/18 16:37 Order name: IV Saline Lock; Complete Time: 17:48 08/18 16:37 Order name: Labs collected and sent; Complete Time: 17:47 08/18 16:37 Order name: O2 Per Protocol; Complete Time: 16:51 08/18 16:37 Order name: O2 Sat Monitoring; Complete Time: 16:51 08/18 16:37 Order name: Urine Dipstick-Ancillary (obtain specimen); Complete Time: 18:32 08/18 16:37 Order name: Thapa; Complete Time: 17:47 cp EC:40 Rate is 147 beats/min. Rhythm is irregular. QRS interval is normal. QT interval is cp normal. T waves are Inverted in lead II. Interpreted by me. Reviewed by me. Administered Medications: 17:49 Drug: Lasix (furosemide) 40 mg Route: IVP; Site: right hand; vg1 18:49 Follow up: Response: No adverse reaction; Blood pressure is lowered vg1 18:49 Drug: Rocephin - (cefTRIAXone) 1 grams Route: IVPB; Infused Over: 30 mins; Site: right vg1 antecubital; 21:20 Follow up: IV Status: Completed infusion; IV Intake: 50ml tw5 21:20 Not Given (Hemodynamic Parameters; BP too loww): Metoprolol 2.5 mg IVP once tw5 Disposition Summary: 08/18/22 18:20 Hospitalization Ordered Hospitalization Status: Inpatient Admission cp Provider: Ranjan, Nathan cp Location: Telemetry/MedSurg (Inpatient) cp Condition: Stable cp Problem: an acute exacerbation cp Symptoms: have improved cp Bed/Room Type: Standard cp Room Assignment: 215(08/18/22 20:57) cg Diagnosis - Unspecified combined systolic (congestive) and diastolic (congestive) heart failure cp - UTI/ Urinary tract infection, site not specified cp Forms: - Medication Reconciliation Form cp - SBAR form cp Addendum: 08/21/2022 13:28 Co-signature as Attending Physician, Tayo Rosa MD I agree with the assessment and c mcgovern plan of care. Signatures: Dispatcher [employer] EDMS Tayo Rosa MD MD cha Attema, Lee, [employer] EXCHANGE ADMINISTRATOR-C [employer] EXCHANGE ADMINISTRATOR-Cla1 Tayo Mitchell PA PA cp Citlalli Simons RN RN Odette Simons RN RN vg1 Luh Guerrero tw5 Corrections: (The following items were deleted from the chart) 08/18 20:39 18:20 cp cg 20:57 20:39 cg cg
--- NOTE | 2022-08-18 18:20 | ER ---
Nurse's Notes [facility] Name: Rocio Quiroz Age: 77 yrs Sex: Female : 1945 Arrival Date: 08/18/2022 Time: 16:26 Bed 8 Private MD: Diagnosis: Unspecified combined systolic (congestive) and diastolic (congestive) heart failure;UTI/ Urinary tract infection, site not specified Presentation: 08/18 16:45 Chief complaint: EMS states: Pt from [facility], toned out for SOB and elevated HR; vg1 upon arrival pt O2 89%. Pt currently being treated for UTI and Cellulitis to Right leg. 16:45 Coronavirus screen: Vaccine status: Patient reports receiving the 2nd dose of the covid vg1 vaccine. Client denies travel out of the [place] in the last 14 days. Ebola Screen: Patient negative for fever greater than or equal to 101.5 degrees Fahrenheit, and additional compatible Ebola Virus Disease symptoms Patient denies exposure to infectious person. 16:45 Method Of Arrival: EMS: [facility] 1 16:45 Initial Sepsis Screen: Does the patient meet any 2 criteria? RR > 20 per min. HR > 90 vg1 bpm. Yes Does the patient have a suspected source of infection? No. Patient's initial sepsis screen is negative. Risk Assessment: Do you want to hurt yourself or someone else? Patient reports no desire to harm self or others. 16:45 Acuity: LINDSEY 2 vg1 16:45 Onset of symptoms was August 18, 2022. vg1 Triage Assessment: 16:45 General: Appears uncomfortable, Behavior is cooperative. Pain: Complains of pain in vg1 buttocks, right leg and left leg Pain currently is 7 out of 10 on a pain scale. EENT: No deficits noted. Neuro: Level of Consciousness is awake, alert, obeys commands, Oriented to person, place, time, situation. Cardiovascular: Patient's skin is warm and dry. Respiratory: Reports shortness of breath at rest on exertion cough that is Airway is patent Respiratory effort is even, labored, Respiratory pattern is tachypnea Breath sounds are diminished bilaterally. Onset: The symptoms/episode began/occurred pt stated "weeks", the patient has mild shortness of breath. GI: Abdomen is obese, Last BM was August 18, 2022. : Reports recently treated for UTI. Derm: Skin is moist, VENU legs Skin temperature is warm Rash noted that is Left upper thigh Decubitus located on right hip(s) has macerated edges bed has granulation present is draining serosanguinous. Musculoskeletal: Swelling present in right leg and left leg. Historical: - Allergies: 16:45 Aspirin; vg1 16:45 Demerol; vg1 16:45 Haldol; vg1 16:45 Ibuprofen; vg1 16:45 Iodine; vg1 16:45 IV contrast; vg1 16:45 Latex, Natural Rubber; vg1 16:45 Morphine; vg1 16:45 PENICILLINS; vg1 - PMHx: 16:45 Anemia; Anxiety; Atrial Fib; Cerebral infarction; CHF; COPD; depressive disorder; vg1 Diverticulitis; DYSPHAGIA; Hypercholesterolemia; Hypertensive disorder; insomnia; Sleep Apnea; vitamin d deficiency; - Immunization history:: Client reports receiving the 2nd dose of the Covid vaccine. - Social history:: Smoking status: unknown. Screenin:02 Abuse screen: Denies threats or abuse. Nutritional screening: No deficits noted. vg1 Tuberculosis screening: No symptoms or risk factors identified. Fall Risk No fall in past 12 months (0 pts). No secondary diagnosis (0 pts). IV access (20 points). Ambulatory Aid- None/Bed Rest/Nurse Assist (0 pts). Gait- Normal/Bed Rest/Wheelchair (0 pts) Mental Status- Oriented to own ability (0 pts). Total Friedman Fall Scale indicates No Risk (0-24 pts). Assessment: 16:45 Reassessment: SEE TRIAGE. vg1 17:45 Reassessment: Patient appears in no apparent distress at this time. No changes from vg1 previously documented assessment. Patient and/or family updated on plan of care and expected duration. Pain level reassessed. Patient is alert, oriented x 3, equal unlabored respirations, skin warm/dry/pink. 18:50 Reassessment: Patient appears in no apparent distress at this time. Patient and/or vg1 family updated on plan of care and expected duration. Pain level reassessed. Patient is alert, oriented x 3, equal unlabored respirations, skin warm/dry/pink. Page PA aware of pt BP; hold metoprolol. 20:01 General: Donell Son- [phone]. Neuro: Level of Consciousness is awake, alert, obeys tw5 commands, Oriented to person, place, time, situation. Respiratory: Airway is patent Trachea midline Respiratory effort is Respiratory pattern is tachypnea Breath sounds with crackles bilaterally. 21:19 Cardiovascular: Rhythm is atrial fibrillation. tw5 Vital Signs: 16:45 BP 160 / 82; Pulse 140; Resp 26; Temp 99.5(O); Pulse Ox 97% on R/A; vg1 17:30 BP 120 / 95; Pulse 114; Resp 24; Pulse Ox 97% on R/A; vg1 18:30 BP 96 / 68; Pulse 124; Resp 24; Pulse Ox 97% on R/A; vg1 20:01 BP 106 / 71; Pulse 105; Resp 26; Pulse Ox 95% on R/A; Pain 3/10; tw5 21:19 BP 98 / 60; Pulse 111; Resp 20; Pulse Ox 96% on R/A; tw5 18:30 Paula PA aware of pt BP vg1 ED Course: 16:26 Patient arrived in ED. mb9 16:33 Tayo Mitchell PA is PHCP. cp 16:33 Tayo Rosa MD is Attending Physician. cp 16:45 Inserted saline lock: 20 gauge in right hand, using aseptic technique. ,using aseptic vg1 technique. completed by ED staff. 16:45 Arm band placed on. vg1 16:45 Patient has correct armband on for positive identification. Placed in gown. Bed in low vg1 position. Call light in reach. Side rails up X2. Client placed on continuous cardiac and pulse oximetry monitoring. NIBP monitoring applied. 16:51 Odette Simons RN is Primary Nurse. vg1 17:40 XRAY Chest (1 view) In Process Unspecified. EDMS 17:43 Thapa cath inserted, using sterile technique, 16 Fr., by mo, balloon inflated, to vg1 gravity drainage, urine specimen collected. returned clear yellow urine. Patient tolerated well. 17:54 Triage completed. vg1 18:19 Nathan Woodruff MD is Hospitalizing Provider. cp 19:09 Primary Nurse role handed off by Odette Simons, RN mw2 19:56 Luh Guerrero is Primary Nurse. tw5 20:01 Door closed. Warm blanket given. Pillow given. tw5 20:08 Diet: Patient given snack. pb and J and jello provided. tw5 21:19 No provider procedures requiring assistance completed. Patient admitted, IV remains in tw5 place. Administered Medications: 17:49 Drug: Lasix (furosemide) 40 mg Route: IVP; Site: right hand; 1 18:49 Follow up: Response: No adverse reaction; Blood pressure is lowered 1 18:49 Drug: Rocephin - (cefTRIAXone) 1 grams Route: IVPB; Infused Over: 30 mins; Site: right 1 antecubital; 21:20 Follow up: IV Status: Completed infusion; IV Intake: 50ml tw5 21:20 Not Given (Hemodynamic Parameters; BP too loww): Metoprolol 2.5 mg IVP once tw5 Medication: 20:01 VIS not applicable for this client. tw5 Intake: 21:20 IV: 50ml; Total: 50ml. tw5 Outcome: 18:20 Decision to Hospitalize by Provider. cp 21:18 Admitted to Med/surg Report called to attempted to call report to Christine. she stated to tw5 give her a few more minuets 21:19 Condition: stable tw5 21:19 Instructed on the need for admit. 21:27 Admitted to Med/surg Report called to report called to CICI LÓPEZ tw5 21:28 Patient left the ED. tw5 Signatures: Dispatcher [employer] EDMS Tayo Mitchell PA PA cp [place], MyKena mw2 Odette Simons, RN RN vg1 Luh Guerrero tw5 Sara Monroy RN RN mb9
[2022-08-18 18:32] LABS: Urine Blood 1+ (Negative); Urine Glucose Negative (Negative); Urine Protein Negative (Negative); Urine Specific Gravity 1.015 (1.005-1.030)
[2022-08-18] MEDS ORDERED: CEFTRIAXONE 1000 MG/VIAL ONE (18:42)
[2022-08-18] MEDS ORDERED: NA CHLORIDE 0.9% 50 ML IV ONE (18:42)
[2022-08-18] MEDS ORDERED: METOPROLOL TARTRATE 5 MG/5 ML INJ IV ONE (18:42)
[2022-08-18 19:09] LABS: Urine Bacteria <20 /HPF (<20); Urine Mucus Slight /HPF (None Seen)
--- NOTE | 2022-08-18 20:16 | P.HP ---
Certification for Inpatient Patient admitted to: Inpatient With expected LOS: >2 Midnights Patient will require the following post-hospital care: None Practitioner: I am a practitioner with admitting privileges, knowledge of patient current condition, hospital course, and medical plan of care. Services: Services provided to patient in accordance with Admission requirements found in Title 42 Section 412.3 of the Code of Federal Regulations <Merlin Schrader - Last Filed: 08/18/22 20:09> Patient History Date of Service: 08/18/22 Reason for admission: CHF exacerbation, UTI, A. fib RVR History of Present Illness: 77-year-old female with history of paroxysmal A. fib on chronic anticoagulation, chronic diastolic congestive heart failure, previous CVA with left-sided weakness, COPD, hypertension, hyperlipidemia, lymphedema was sent to the emergency department from the long-term at [facility] for evaluation of tachycardia, hypoxia. Patient reports she is currently being treated for lower extremity cellulitis, UTI at the long-term, long-term staff also reported patient was hypoxic with sats in the high 80s on room air as well as tachycardic with rates in the 120s to 140s. She was evaluated here in the emergency department her labs were significant for leukocytosis with white blood cell count 13.5 hemoglobin 10.2 Macrobid 1.7 procalcitonin 0.17 BNP 5540 urine was nitrite positive, 1+ leuk esterase on dip but less than 20 bacteria on microscopic analysis, urine culture ordered and obtained. Patient does report dysuria, frequency reports frequent urinary tract infections. Patient was given antibiotics in the emergency departmentRocephin she meets criteria for sepsis given her tachycardia, tachypnea. No severe sepsis criteria currently present. We will admit for further evaluation and management of acute on chronic diastolic congestive heart failure, UTI with sepsis, A. fib RVR. 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 - Family History Mother Notes: alzheimers - Social History Alcohol use: No CD- Drugs: No Caffeine use: No Place of Residence: Home <Merlin Schrader - Last Filed: 08/18/22 20:09> Date of Service: 08/19/22 <Nathan Woodruff - Last Filed: 08/19/22 15:39> Allergies iodine Allergy (Verified 12/22/16 01:47) Hives/Rash latex Allergy (Verified 12/22/16 01:47) Hives/Rash Latex, Natural Rubber Allergy (Verified 02/01/18 20:29) Itching/Hives/Rash morphine Allergy (Verified 12/22/16 01:47) Hives Penicillins Allergy (Verified 12/22/16 01:47) Hives/Rash haloperidol [From Haldol] Adverse Reaction (Verified 12/22/16 01:47) anxiety haloperidol lactate [From Haldol] Adverse Reaction (Verified 12/22/16 01:47) anxiety Home Medications: Acetaminophen [Tylenol] 2 tab PO Q6H PRN 06/18/22 Albuterol Sulfate [Ventolin Hfa] 2 puff IN Q6H PRN 06/18/22 Ascorbic Acid 500 mg PO DAILY 06/18/22 Aspirin Chewable [Aspirin Chewable*] 1 tab PO DAILY 06/18/22 Bisacodyl [Laxative Suppository] 1 supp SP Q8H PRN 06/18/22 Bupropion HCl [Wellbutrin] 1 tab PO DAILY 06/18/22 Capsaicin 0.025 markie TOP Q6H PRN 06/18/22 Divalproex Sodium [Depakote] 1 tab PO BID 06/18/22 Docusate Sodium 1 tab PO BID 06/18/22 Duloxetine HCl 2 cap PO BEDTIME 06/18/22 Lorazepam [Ativan] 1 tab PO DAILY 06/18/22 Menthol [Biofreeze] 1 markie TOP Q6H PRN 06/18/22 Pantoprazole Sodium [Protonix] 1 tab PO DAILY 06/18/22 Polysorbate 80/Glycerin [Refresh Dry Eye Therapy Drops] 2 drop OP QID 06/18/22 Sennosides [Senokot] 1 tab PO BID 06/18/22 Temazepam 1 cap PO BEDTIME 06/18/22 Zinc Gluconate [Zinc] 220 mg PO DAILY 06/18/22 Atorvastatin Calcium [Lipitor] 40 mg PO BEDTIME tab 06/20/22 Doxycycline Hyclate 100 mg PO BID #20 cap 06/20/22 Fluconazole 200 mg PO DAILY #10 tab 06/20/22 Glucerna Shake [Glucerna*] 237 ml PO BID can 06/20/22 Nystatin Oint [Mycostatin 100 Mu/Gm Oint*] 1 appl TOP BID tube 06/20/22 Oxycodone HCl/Acetaminophen [Percocet 5/325 Tab*] 1 tab PO Q4H PRN #15 tab 06/20/22 levoFLOXacin [Levaquin*] 750 mg PO DAILY #7 tab 06/20/22 Review of Systems 10-point ROS is otherwise unremarkable Respiratory: Shortness of Breath Cardiovascular: Palpitations Genitourinary: Dysuria, Frequency <Merlin Schrader - Last Filed: 08/18/22 20:09> Physical Examination - Physical Exam General: Alert, In no apparent distress, Oriented x3, Obese HEENT: Atraumatic, PERRLA, Mucous membr. moist/pink, EOMI, Sclerae nonicteric Neck: Supple, 2+ carotid pulse no bruit, No LAD, Without JVD or thyroid abnormality Respiratory: Clear to auscultation bilaterally, Normal air movement Cardiovascular: Normal S1 S2, Irregular heart rate/rhythm (a fib rate 110) Capillary refill: <2 Seconds Gastrointestinal: Normal bowel sounds, No tenderness Musculoskeletal: No tenderness Integumentary: Erythema, Other (Petichial rash LLE proximally with small areas of blistering to the medial thigh, pt reports frequent itching, reports redness imporved ) Neurological: Normal speech, Normal strength at 5/5 x4 extr, Normal tone, Normal affect - Studies Laboratory Data (last 24 hrs) 08/18/22 17:05: PT 14.8 H, INR 1.35 08/18/22 17:05: WBC 13.50 H, Hgb 10.2 L, Hct 31.7 L, Plt Count 183 08/18/22 17:05: Sodium 136, Potassium 4.0, BUN 18, Creatinine 0.88, Glucose 129 H, Magnesium 2.0, Total Bilirubin 0.5, AST 18, ALT 14, Alkaline Phosphatase 161 H <Merlin Schrader - Last Filed: 08/18/22 20:09> - Studies Laboratory Data (last 24 hrs) 08/18/22 17:05: PT 14.8 H, INR 1.35 08/18/22 17:05: WBC 13.50 H, Hgb 10.2 L, Hct 31.7 L, Plt Count 183 08/18/22 17:05: Sodium 136, Potassium 4.0, BUN 18, Creatinine 0.88, Glucose 129 H, Magnesium 2.0, Total Bilirubin 0.5, AST 18, ALT 14, Alkaline Phosphatase 161 H Microbiology Data (last 24 hrs): 08/18/22 17:00 Blood - Blood Anaerobic Blood Culture - Final <Nathan Woodruff - Last Filed: 08/19/22 15:39> Assessment and Plan - Plan Assessment: Acute on chronic diastolic congestive heart failure Paroxysmal atrial fibrillation with rapid ventricular responseon chronic anticoagulation Sepsis secondary to urinary tract infection Hypertension Hyperlipidemia Previous CVA resulting in left-sided weakness Depression/BPD Plan: Acute on chronic diastolic congestive heart failure: Continue with IV Lasix for diuresis, cardiology consult in place, echocardiogram ordered. Paroxysmal atrial fibrillation with rapid ventricular responseon chronic anticoagulation: Continue Eliquis, monitor on telemetry. Blood pressure around 105 systolic currently heart rate around 110. Continue home medications as appropriate. Sepsis secondary to urinary tract infection: Patient with tachycardia rate greater than 90 tachypnea respiratory rate greater than 20 and source of infection with urinary tract infection no lactic acidosis or hypotension/endorgan damage noted. Continue with antibioticsLevaquin previous cultures reviewed multiple different organisms present in the past, Levaquin seems to be a good choice for the time being. Await urine culture. Hypertension: Continue home medications Hyperlipidemia:Continue home medications Previous CVA resulting in left-sided weakness: Continue aspirin, Eliquis. Depression/BPD: Continue Abilify, BuSpar. DVT PPX: Continue Eliquis Code status: DNR Discharge Plan: Jail Plan to discharge in: 72 Hours - Advance Directives Does patient have a Living Will: No Does patient have a Durable POA for Healthcare: No - Code Status/Comfort Care Code Status Assessed: Yes (DNR) Critical Care: No Time Spent Managing Pts Care (In Minutes): 70 <Merlin Schrader - Last Filed: 08/18/22 20:09> Physician Review: Patient Assessed, Agree with Above Assessment and Plan <Nathan Woodruff - Last Filed: 08/19/22 15:39>
[2022-08-18] MEDS ORDERED: Levofloxacin500mg IV 500 MG/100 ML BAG IV ONE (23:00)
[2022-08-18] MEDS ORDERED: TEMAZEPAM 15 MG CAP PO PRN (23:17)
[2022-08-18] MEDS ORDERED: hydrOXYzine HCL 25 MG TAB PO PRN (23:17)
[2022-08-18] MEDS ORDERED: ONDANSETRON 4 MG/2 ML VIAL IV PRN (23:17)
[2022-08-19 00:41] VITALS: BMI 37.1
[2022-08-19] MEDS: APIXABAN 5 MG TABLET PO SCH ×3 (00:52→21:53)
[2022-08-19] MEDS: ATORVASTATIN 40 MG TAB PO SCH ×2 (00:52→21:57)
[2022-08-19] MEDS: ARIPiprazole 5 MG TAB PO SCH ×2 (00:53→21:56)
[2022-08-19] MEDS: HYDROCODONE/APAP 5/325 MG TAB PO PRN ×4 (00:53→21:56)
[2022-08-19 04:05] LABS: Hematocrit 27.4 % (36.0-45.0); Lymphocytes % 30.5 % (15.3-44.8); MCV 98.3 fL (80-100); MPV 7.1 fL (7.6-11.3); RBC Red Blood Cell Count 2.79 M/uL (3.86-4.86)
[2022-08-19] MEDS: ACETAMINOPHEN 500 MG TAB PO PRN (04:17)
[2022-08-19 04:39] LABS: Albumin 1.7 g/dL (3.4-5.0); Bilirubin Total 0.3 mg/dL (0.2-1.0); Potassium 3.6 mmol/L (3.5-5.1); Protein, Total 5.3 g/dL (6.4-8.2); Thyroid Stimulating Hormone 2.77 uIU/mL (0.360-3.740)
[2022-08-19] MEDS: METOPROLOL TAR 25 MG TAB PO SCH ×2 (06:38→17:45)
[2022-08-19] MEDS: PANTOPRAZOLE 40MG TABLET PO SCH (06:38)
[2022-08-19] MEDS ORDERED: PNEUMOCOCCAL VACCINE 0.5 ML IMVAC ONE (08:00)
[2022-08-19] MEDS: ASPIRIN EC 81 MG TAB PO SCH (08:51)
[2022-08-19] MEDS: BUSPIRONE HCL 5 MG TABLET PO SCH ×3 (08:51→21:53)
[2022-08-19] MEDS: FUROSEMIDE 40 MG/4 ML VIAL IV SCH ×2 (08:52→17:45)
--- NOTE | 2022-08-19 15:40 | P.PN ---
Subjective Date of Service: 08/19/22 Chief Complaint: CHF exacerbation, UTI, A. fib RVR No acute events since admission. She reports persistent shortness of breath, particularly worse when lying flat. She denies any chest pain or palpitations. Review of Systems 10-point ROS is otherwise unremarkable Respiratory: Cough, Shortness of Breath Cardiovascular: Orthopnea Physical Examination - Vital Signs Temperature: 96.8 F Blood Pressure: 103/55 Pulse: 77 Respirations: 19 Pulse Ox (%): 96 - Physical Exam General: Alert, In no apparent distress, Oriented x3 HEENT: Atraumatic, PERRLA, Mucous membr. moist/pink, EOMI, Sclerae nonicteric Neck: Supple, Other (JVD difficult to assess due to habitus) Respiratory: Crackles/rales (bibasilar) Cardiovascular: Regular rate/rhythm, Normal S1 S2, No gallops, No rubs, No murmurs, Edema (3+ BLE) Gastrointestinal: Normal bowel sounds, Soft and benign, Non-distended, No tende rness, No rebound, No guarding Musculoskeletal: No clubbing Integumentary: No rashes Neurological: Normal speech, Normal affect - Studies Laboratory Data (last 24 hrs) 08/18/22 17:05: PT 14.8 H, INR 1.35 08/18/22 17:05: WBC 13.50 H, Hgb 10.2 L, Hct 31.7 L, Plt Count 183 08/18/22 17:05: Sodium 136, Potassium 4.0, BUN 18, Creatinine 0.88, Glucose 129 H, Magnesium 2.0, Total Bilirubin 0.5, AST 18, ALT 14, Alkaline Phosphatase 161 H Microbiology Data (last 24 hrs): 08/18/22 17:00 Blood - Blood Anaerobic Blood Culture - Final Assessment And Plan - Plan # Acute on Chronic Decompensated Diastolic Congestive Heart Failure with Preserved Ejection Fraction - Consult Cardiology and spoke with Dr. Cobb - recommendations appreciated - Chest x-ray = "no acute cardiopulmonary disease." - Ordered transthoracic echocardiogram - Diuresis with IV furosemide for today - Continue home metoprolol - Daily weights - Strict I/O - Cardiac diet, 1.5 L fluid restriction, 2 g Na restriction # Paroxysmal Atrial Fibrillation with Rapid Ventricular Response His [id number] = 6 (CHF=1, HTN=1, Age>75=2, CVA=1, Sex=1), which warrants anticoagulation. - Continue home metoprolol, apixaban # Sepsis likely secondary to Urinary Tract Infection She met sepsis criteria based on HR > 90 bpm, RR > 20 breaths/min, and the suspected source is UTI. - Sepsis order set was initiated - Initial Lactate was 0.9 - Blood cultures drawn before antibiotics were given - Broad spectrum antibiotics started: levofloxacin - In regards to fluids: - 30 mL/kg of IV fluids was not administered given SBP > 90, MAP > 65, lactic acid < 4 # History of Cerebrovascular Accident with Resident Left-Sided Weakness # Hypertension # Hyperlipidemia - Continue aspirin, atorvastatin # Bipolar Disorder # Depression - Continue buspirone, aripiprazole Nathan Woodruff M.D.
[2022-08-19] MEDS: Levofloxacin500mg IV 500 MG/100 ML BAG IV SCH (22:06)
[2022-08-20] MEDS: HYDROCODONE/APAP 5/325 MG TAB PO PRN ×2 (03:28→09:29)
[2022-08-20 04:03] LABS: Absolute Lymphocytes (CBC) 2.3 K/uL (0.7-4.9); Hematocrit 28.3 % (36.0-45.0); Lymphocytes % 35.9 % (15.3-44.8); MCV 98.4 fL (80-100); MPV 6.9 fL (7.6-11.3); RBC Red Blood Cell Count 2.88 M/uL (3.86-4.86)
[2022-08-20 04:31] LABS: Albumin 1.7 g/dL (3.4-5.0); Bilirubin Total 0.3 mg/dL (0.2-1.0); Potassium 3.6 mmol/L (3.5-5.1); Protein, Total 5.5 g/dL (6.4-8.2)
[2022-08-20] MEDS: PANTOPRAZOLE 40MG TABLET PO SCH (05:28)
[2022-08-20] MEDS: METOPROLOL TAR 25 MG TAB PO SCH ×2 (05:28→16:56)
[2022-08-20] MEDS: ASPIRIN EC 81 MG TAB PO SCH (09:00)
[2022-08-20] MEDS: FUROSEMIDE 20 MG/ 2ML VIAL IV SCH ×2 (09:00→16:55)
[2022-08-20] MEDS: BUSPIRONE HCL 5 MG TABLET PO SCH ×3 (09:30→20:03)
[2022-08-20] MEDS: APIXABAN 5 MG TABLET PO SCH ×2 (09:30→20:04)
--- NOTE | 2022-08-20 12:27 | P.PN ---
Subjective Date of Service: 08/20/22 Chief Complaint: CHF exacerbation, UTI, A. fib RVR No acute events overnight. She reports that her breathing has improved. She reports mild dysuria. She denies any chest pain, palpitations, nausea, or vomiting. Review of Systems 10-point ROS is otherwise unremarkable Respiratory: Shortness of Breath (improved) Genitourinary: Dysuria (mild) Physical Examination - Vital Signs Temperature: 97.0 F Blood Pressure: 97/46 Pulse: 76 Respirations: 14 Pulse Ox (%): 97 - Studies Microbiology Data (last 24 hrs): 08/18/22 17:00 Blood - Blood Anaerobic Blood Culture - Final Assessment And Plan - Plan - Physical Exam General: Alert, In no apparent distress, Oriented x3 HEENT: Atraumatic, PERRLA, Mucous membr. moist/pink, EOMI, Sclerae nonicteric Neck: Supple, Other (JVD difficult to assess due to habitus) Respiratory: Crackles/rales (faint, bibasilar) Cardiovascular: Regular rate/rhythm, Normal S1 S2, No gallops, No rubs, No murmurs, Edema (3+ BLE) Gastrointestinal: Normal bowel sounds, Soft and benign, Non-distended, No tenderness, No rebound, No guarding Musculoskeletal: No clubbing Integumentary: No rashes Neurological: Normal speech, Normal affect # Acute on Chronic Decompensated Diastolic Congestive Heart Failure with Preserved Ejection Fraction - Consult Cardiology and spoke with Dr. Cobb - recommendations appreciated - Chest x-ray = "no acute cardiopulmonary disease." - Ordered transthoracic echocardiogram - Diuresis with IV furosemide for today - Continue home metoprolol - Daily weights - Strict I/O - Cardiac diet, 1.5 L fluid restriction, 2 g Na restriction # Paroxysmal Atrial Fibrillation with Rapid Ventricular Response His [id number] = 6 (CHF=1, HTN=1, Age>75=2, CVA=1, Sex=1), which warrants anticoagulation. - Continue home metoprolol, apixaban # Sepsis likely secondary to Gram-Negative Urinary Tract Infection She met sepsis criteria based on HR > 90 bpm, RR > 20 breaths/min, and the suspected source is UTI. - Sepsis order set was initiated - Initial Lactate was 0.9 - Blood cultures drawn before antibiotics were given - Broad spectrum antibiotics started: levofloxacin - In regards to fluids: - 30 mL/kg of IV fluids was not administered given SBP > 90, MAP > 65, lactic acid < 4 - Urine culture = gram-negative rods - Await speciation and sensitivities # History of Cerebrovascular Accident with Resident Left-Sided Weakness # Hypertension # Hyperlipidemia - Continue aspirin, atorvastatin # Bipolar Disorder # Depression - Continue buspirone, aripiprazole Nathan Woodruff M.D.
--- NOTE | 2022-08-20 19:16 | EKG ---
Test Date: 2022-08-18 Test Time: 16:34:18 Grades 1 Through 5 Teacher: JC MEASUREMENT RESULTS: Intervals: Rate: 147 MT: QRSD: 80 QT: 262 QTc: 410 Pawling: P: MT: QRS: 27 T: 51 INTERPRETIVE STATEMENTS: Atrial fibrillation with rapid ventricular response Possible Inferior infarct, age undetermined Cannot rule out Anterior infarct, age undetermined Abnormal ECG Compared to ECG 06/16/2022 10:00:14 No significant changes Electronically Signed On 08-20-22 19:10:55 [employer] SAL[employer] REPRESENTATIVE by Elan Cobb
[2022-08-20] MEDS: ARIPiprazole 5 MG TAB PO SCH (20:03)
[2022-08-20] MEDS: ATORVASTATIN 40 MG TAB PO SCH (20:04)
[2022-08-20] MEDS: Levofloxacin500mg IV 500 MG/100 ML BAG IV SCH (23:10)
[2022-08-21] MEDS: HYDROCODONE/APAP 5/325 MG TAB PO PRN ×3 (01:10→22:29)
[2022-08-21] MEDS: METOPROLOL TAR 25 MG TAB PO SCH ×2 (06:00→18:00)
[2022-08-21] MEDS: PANTOPRAZOLE 40MG TABLET PO SCH (06:03)
[2022-08-21] MEDS ORDERED: CEFTRIAXONE 1000 MG/VIAL ONE (08:30)
[2022-08-21] MEDS ORDERED: NA CHLORIDE 0.9% 50 ML ONE (08:32)
[2022-08-21] MEDS: BUSPIRONE HCL 5 MG TABLET PO SCH ×3 (08:49→22:28)
[2022-08-21] MEDS: FUROSEMIDE 20 MG/ 2ML VIAL IV SCH ×2 (08:49→16:45)
[2022-08-21] MEDS: APIXABAN 5 MG TABLET PO SCH ×2 (08:49→22:29)
[2022-08-21] MEDS: CEFTRIAXONE 1,000 MG in NA CHLORIDE 0.9% 50 ML IVPB SCH (08:49)
[2022-08-21] MEDS: ASPIRIN EC 81 MG TAB PO SCH (08:49)
--- NOTE | 2022-08-21 15:31 | P.PN ---
Subjective Date of Service: 08/21/22 Chief Complaint: CHF exacerbation, UTI, A. fib RVR No acute events overnight. She reports that her dysuria has improved. She is eager to be discharged. Urine culture returned positive for multi-drug resistant Escherichia Coli. Will request PICC placement. She denies any chest pain, palpitations, nausea, or vomiting. Can possibly be discharged today if PICC is placed successfully and she is accepted back to [facility]. Review of Systems 10-point ROS is otherwise unremarkable General: Weakness (generalized) Genitourinary: Dysuria (mild) Physical Examination - Vital Signs Temperature: 97.3 F Blood Pressure: 112/55 Pulse: 101 Respirations: 16 Pulse Ox (%): 99 - Studies Microbiology Data (last 24 hrs): 08/18/22 18:32 Clean Catch Urine [place] Count - Final >100,000 CFU/ML. 08/18/22 18:32 Clean Catch Urine - Final Escherichia Coli Gram Neg Sukumar Assessment And Plan - Plan - Physical Exam General: Alert, In no apparent distress, Oriented x3 HEENT: Atraumatic, PERRLA, Mucous membr. moist/pink, EOMI, Sclerae nonicteric Neck: Supple, Other (JVD difficult to assess due to habitus) Respiratory: Faint bibasilar crackles/rales, otherwise clear to auscultation bilaterally Cardiovascular: Regular rate/rhythm, Normal S1 S2, No gallops, No rubs, No murmurs, Edema (2-3+ BLE) Gastrointestinal: Normal bowel sounds, Soft and benign, Non-distended, No tenderness, No rebound, No guarding Musculoskeletal: No clubbing Integumentary: No rashes Neurological: Normal speech, Normal affect # Acute on Chronic Decompensated Diastolic Congestive Heart Failure with Preserved Ejection Fraction (improved) - Consult Cardiology and spoke with Dr. Cobb - recommendations appreciated - Chest x-ray = "no acute cardiopulmonary disease." - Ordered transthoracic echocardiogram - Diuresis with IV furosemide - Continue home metoprolol - Daily weights - Strict I/O - Cardiac diet, 1.5 L fluid restriction, 2 g Na restriction # Sepsis likely secondary to Multi-Drug Resistant Escherichia Coli Urinary Tract Infection She met sepsis criteria based on HR > 90 bpm, RR > 20 breaths/min, and the suspected source is UTI. - Sepsis order set was initiated - Initial Lactate was 0.9 - Blood cultures drawn before antibiotics were given - Broad spectrum antibiotics started: levofloxacin -> ceftriaxone - In regards to fluids: - 30 mL/kg of IV fluids was not administered given SBP > 90, MAP > 65, lactic acid < 4 - Urine culture = MDR E. Coli # Paroxysmal Atrial Fibrillation with Rapid Ventricular Response (resolved) His [id number] = 6 (CHF=1, HTN=1, Age>75=2, CVA=1, Sex=1), which warrants anticoagulation. - Continue home metoprolol, apixaban # History of Cerebrovascular Accident with Resident Left-Sided Weakness # Hypertension # Hyperlipidemia - Continue aspirin, atorvastatin # Bipolar Disorder # Depression - Continue buspirone, aripiprazole Nathan Woodruff M.D.
[2022-08-21] MEDS: ACETAMINOPHEN 500 MG TAB PO PRN (16:45)
--- NOTE | 2022-08-21 21:57 | PN ---
Date of Progress Note: 08/19/2022 Ms. Quiroz is 77, came in with the new-onset atrial fibrillation, possible congestive heart failure. This morning, she is feeling better. She is back in sinus rhythm. She is on Eliquis, Abilify, Lipi tor, Levaquin, Lasix, inhalers. Echocardiogram is unremarkable. Sinus rhythm. Chest is clear. No edema. She can go home whenever it is okay with Dr. Woodruff. Add low-dose beta-joqauin to her regimen and I will see her in the office in the near future. LIANNE/ALICE Voice ID: [id number] Report ID: [id number]
--- NOTE | 2022-08-21 22:06 | CON ---
Date of Consultation: 08/18/2022 Reason For Admission: Congestive heart failure. History Of Present Illness: Ms. Quiroz is a 77-year-old [id number] patient, who has a histor y of dyslipidemia, COPD, depression. Came in with what sounds like new onset congestive heart failur e, shortness of breath, PND, orthopnea, pedal edema, but no chest pain, nausea, vomiting, diaphoresis . Denied any palpitation or syncope. Denied any fever or chills. Past Medical History: As stated above. Allergies: SHE IS ALLERGIC TO IODINE, LASIX, MORPHINE, PENICILLIN, AND HALDOL. Review of Systems: Positive for being a do not resuscitate. Family History: Negative. Social History: Negative. Medications: At home include aspirin, Lipitor, inhalers, and Abilify. Physical Examination: General: She was in atrial fibrillation at a rate of 112. Vital Signs: Otherwise stable, afebrile. HEENT: Negative. Neck: Supple with no bruit. Chest: Clear. Cardiac: Revealed atrial fibrillation. Abdomen: Benign. Extremities: Revealed 1+ edema to the knees. Diagnostic Data: Chest x-ray was negative. BNP showed 5000. White count was 13,000. EKG showed at rial fibrillation. Impression And Plan: New onset atrial fibrillation with possible congestive heart failure secondary to that. Her chest x-ray is negative. Her examination does not reveal any rales. Nevertheless, I a gree with Eliquis, Lipitor. She is on Levaquin because of elevated white count. She is on Lasix. S he is on Abilify. We will continue her inhaler and Lipitor. Consider the use of low-dose beta-block er. She will need to be anticoagulated. She has an elevated CHADS score. Obtain a 2D echocardiogra m, hopefully send her home tomorrow. We will continue to follow. LIANNE/ALICE Voice ID: [id number] Report ID: [id number]
[2022-08-21] MEDS: ATORVASTATIN 40 MG TAB PO SCH (22:28)
[2022-08-21] MEDS: ARIPiprazole 5 MG TAB PO SCH (22:28)
[2022-08-22] MEDS: METOPROLOL TAR 25 MG TAB PO SCH (06:00)
[2022-08-22] MEDS: HYDROCODONE/APAP 5/325 MG TAB PO PRN (06:37)
[2022-08-22] MEDS: PANTOPRAZOLE 40MG TABLET PO SCH (06:37)
--- NOTE | 2022-08-22 07:19 | ECHO ---
HEIGHT: 5 ft 6 in WEIGHT: 230 lb 0 oz DATE OF STUDY: 08/16/[address]: Merlin Schrader NP 2-DIMENSIONAL: YES M.MODE: YES DOPPLER: YES COLOR FLOW: YES TDS: YES PORTABLE: YES DEFINITY: BUBBLE STUDY: DIAGNOSIS: CARDIAC HISTORY: CATHERIZATION: SURGERY: PROSTHETIC VALVE: PACEMAKER: MEASUREMENTS (cm) DIASTOLIC (NORMALS) SYSTOLIC (NORMALS) IVSd 1.0 (0.6-1.2) LA Diam 5.3 (1.9-4.0) LVEF 79% LVIDd 3.0 (3.5-5.7) LVIDs 1.6 (2.0-3.5) %FS 46% LVPWd 1.2 (0.6-1.2) Ao Diam 2.9 (2.0-3.7) 2 DIMENSIONAL ASSESSMENT: RIGHT ATRIUM: NORMAL LEFT ATRIUM: DILATED RIGHT VENTRICLE: NORMAL LEFT VENTRICLE: NORMAL TRICUSPID VALVE: NORMAL MITRAL VALVE: NORMAL PULMONIC VALVE: NORMAL AORTIC VALVE: NORMAL PERICARDIAL EFFUSION: NONE AORTIC ROOT: NORMAL LEFT VENTRICULAR WALL MOTION: NORMAL DOPPLER/COLOR FLOW: TRICUSPID REGURGITATION. NORMAL RIGHT VENTRICULAR SYSTOLIC PRESSURE. COMMENTS: 1. LEFT ATRIAL ENLARGEMENT 2. NO WALL MOTION ABNORMALITY 3. NORMAL EJECTION FRACTION 4. NO EFFUSION TECHNOLOGIST: JONE JAMES
[2022-08-22] MEDS ORDERED: CEFTRIAXONE 1000 MG/VIAL ONE (07:40)
[2022-08-22] MEDS ORDERED: NA CHLORIDE 0.9% 50 ML ONE (07:44)
[2022-08-22] MEDS: CEFTRIAXONE 1,000 MG in NA CHLORIDE 0.9% 50 ML IVPB SCH (09:09)
[2022-08-22] MEDS: BUSPIRONE HCL 5 MG TABLET PO SCH ×2 (09:09→14:13)
[2022-08-22] MEDS: FUROSEMIDE 20 MG/ 2ML VIAL IV SCH (09:09)
[2022-08-22] MEDS: APIXABAN 5 MG TABLET PO SCH (09:09)
[2022-08-22] MEDS: ASPIRIN EC 81 MG TAB PO SCH (09:09)
[2022-08-22] MEDS: ACETAMINOPHEN 500 MG TAB PO PRN (10:46)
[2022-08-22] MEDS ORDERED: LIDOCAINE 1% MPF 30 ML VIAL ONE (14:44)
--- NOTE | 2022-08-22 16:01 | P.CNS ---
Date of Consult: 08/22/22 PC: I was asked to see this 77-year old female in regards to placement of a triple-lumen catheter for IV antibiotics for 1 more week. HPC: Patient apparently was septic when she came to the hospital. She still require several more days of antibiotics. They are to be given IV. Peripheral access was not able to be established, and a central line is now needed. PMHx: Past history of CHD Social Hx: Allergic to iodine and latex morphine penicillins Sys R: No specific complaints O/E: Awake alert talkative HEENT: Not jaundiced Chest: Chest movement equal bilaterally Abd: Intact [place]: No evidence of a fracture clavicle Impression: Needs vascular access for 1 week of IV antibiotics Plan: I met the patient and discussed her options at this point. She agrees to having a subclavian catheter placed. The risks of this procedure were discussed. The possibility of bleeding, infection, catheter malfunction, and pneumothorax as well as bleeding were discussed. She understands and wants to proceed. I will do this in the operating room to optimize the conditions.
--- NOTE | 2022-08-22 16:08 | P.OP ---
Preoperative diagnosis: Lack of vascular access Postoperative diagnosis: The same Primary procedure: Insertion of left subclavian catheter Anesthesia: Local Estimated blood loss: Less than 10 cc Operative Technique: The patient brought the operating room and placed supine on the table. After placing a roll between the patient's shoulders she was put into Trendelenburg position. The area of the chest was then prepped with a chlorhexidine solution, she was draped in usual aseptic manner. After using a finder needle to cannulate the left subclavian vein, a guidewire was passed down through this. A small skin incision was made. A dilator was passed over the guidewire. We were then able to pass our triple-lumen catheter over a guidewire using a modified Seldinger technique. The catheter went easily, we caught the vein on the first pass. The catheter was then flushed and sutured in place. A chest x-ray is pending in the recovery room. At the end of the procedure the patient was in a stable condition, had remained very comfortable throughout, and sterile dressings were applied. Complications: None Transferred to: Recovery Room Condition: Good
[2022-08-22 16:32] VITALS: BP 120/60; TEMP 97.5; O2SAT 95
--- NOTE | 2022-08-22 16:41 | RAD REPORT ---
EXAM DESCRIPTION: RAD - Chest Single View - 08/22/2022 4:34 pm CLINICAL HISTORY: S/P CENTRAL LINE PLACEMENT Chest pain. COMPARISON: Chest Single View dated 08/18/2022; Chest Single View dated 06/16/2022; Chest Single View dated 05/11/2022; Chest Single View dated 07/15/2021 FINDINGS: Portable technique limits examination quality. Left central venous catheter has been placed with its tip in the SVC. No pneumothorax is evident.
--- NOTE | 2022-08-22 16:52 | P.DS ---
Admission Date: 08/18/22 Discharge Date: 08/22/22 Disposition: TRANSFER TO LONG TERM Discharge Condition: GOOD Reason for Admission: CHF exacerbation, UTI, A. fib RVR Consultations: 1. 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 on 08/18/2022 for decompensated heart failure, sepsis, and atrial fibrillation. She was admitted to the Medicine service. Upon further evaluation, she was found to have acute on chronic decompensated congestive heart failure and atrial fibrillation with rapid ventricular response. Cardiology was consulted and she was evaluated by Dr. Cobb. He recommended metoprolol and apixaban. Over the course of her hospitalization, her symptoms improved significantly. In addition to the cardiac symptoms, she complained of dysuria. She was found to have sepsis secondary to multi-drug resistant E. Coli, which would require IV antibiotics. Yesterday, our staff tried several times to place a PICC line, but were unsuccessful. Today, with the assistance of Dr. Argueta, a central line was placed, and she has been cleared to return to [facility] [place] to complete the remainder of her IV antibiotic therapy. On 08/22/2022, she was seen on rounds and deemed medically stable for discharge. She was given the opportunity to ask questions and reported no further questions. Furthermore, all questions were answered to the best of my ability. A copy of this discharge summary will be sent to the above providers to facilitate continuity of care. Today, I personally spent 25 minutes on her case, of which greater than 50% of the time was spent in patient education, counseling, and coordination of care as described above. - Physical Exam General: Alert, In no apparent distress, Oriented x3 HEENT: Atraumatic, PERRLA, Mucous membr. moist/pink, EOMI, Sclerae nonicteric Neck: Supple, Other (JVD difficult to assess due to habitus) Respiratory: Clear to auscultation bilaterally to wheezes, rhonchi, or rales Cardiovascular: Regular rate/rhythm, Normal S1 S2, No gallops, No rubs, No murmurs, Edema (1-2+ BLE) Gastrointestinal: Normal bowel sounds, Soft and benign, Non-distended, No tenderness, No rebound, No guarding Musculoskeletal: No clubbing Integumentary: No rashes Neurological: Normal speech, Normal affect Vital Signs/Physical Exam: Temp Pulse Resp BP Pulse Ox 97.5 F 86 20 120/60 98 08/22/22 16:31 08/22/22 16:31 08/22/22 16:31 08/22/22 16:31 08/22/22 12:00 Laboratory Data at Discharge: WBC 6.50 K/uL (4.3-10.9) 08/20/22 03:46 Hgb 9.4 g/dL (12.0-15.0) L 08/20/22 03:46 Hct 28.3 % (36.0-45.0) L 08/20/22 03:46 Plt Count 152 K/uL (152-406) 08/20/22 03:46 PT 14.8 SECONDS (9.5-12.5) H 08/18/22 17:05 INR 1.35 08/18/22 17:05 Sodium 141 mmol/L (136-145) 08/20/22 03:46 Potassium 3.6 mmol/L (3.5-5.1) 08/20/22 03:46 BUN 22 mg/dL (7-18) H 08/20/22 03:46 Creatinine 0.90 mg/dL (0.55-1.3) 08/20/22 03:46 Glucose 106 mg/dL (74-106) 08/20/22 03:46 Magnesium 2.0 mg/dL (1.8-2.4) 08/20/22 03:46 Total Bilirubin 0.3 mg/dL (0.2-1.0) 08/20/22 03:46 AST 18 U/L (15-37) 08/20/22 03:46 ALT 16 U/L (12-78) 08/20/22 03:46 Alkaline Phosphatase 133 U/L (45-117) H 08/20/22 03:46 Home Medications: Acetaminophen [Tylenol] 2 tab PO Q6H PRN 06/18/22 Albuterol Sulfate [Ventolin Hfa] 2 puff IN Q6H PRN 06/18/22 Ascorbic Acid 500 mg PO DAILY 06/18/22 Aspirin Chewable [Aspirin Chewable*] 1 tab PO DAILY 06/18/22 Bisacodyl [Laxative Suppository] 1 supp SP Q8H PRN 06/18/22 Bupropion HCl [Wellbutrin] 1 tab PO DAILY 06/18/22 Capsaicin 0.025 markie TOP Q6H PRN 06/18/22 Divalproex Sodium [Depakote] 1 tab PO BID 06/18/22 Docusate Sodium 1 tab PO BID 06/18/22 Duloxetine HCl 2 cap PO BEDTIME 06/18/22 Lorazepam [Ativan] 1 tab PO DAILY 06/18/22 Menthol [Biofreeze] 1 markie TOP Q6H PRN 06/18/22 Pantoprazole Sodium [Protonix] 1 tab PO DAILY 06/18/22 Polysorbate 80/Glycerin [Refresh Dry Eye Therapy Drops] 2 drop OP QID 06/18/22 Sennosides [Senokot] 1 tab PO BID 06/18/22 Temazepam 1 cap PO BEDTIME 06/18/22 Zinc Gluconate [Zinc] 220 mg PO DAILY 06/18/22 Atorvastatin Calcium [Lipitor] 40 mg PO BEDTIME tab 06/20/22 Fluconazole 200 mg PO DAILY #10 tab 06/20/22 Glucerna Shake [Glucerna*] 237 ml PO BID can 06/20/22 Nystatin Oint [Mycostatin 100 Mu/Gm Oint*] 1 appl TOP BID tube 06/20/22 Oxycodone HCl/Acetaminophen [Percocet 5/325 Tab*] 1 tab PO Q4H PRN #15 tab 06/20/22 Apixaban [Eliquis] 5 mg PO BID 08/22/22 Metoprolol Tartrate [Lopressor*] 25 mg PO BID 6AM 6PM tab 08/22/22 Diet: AHA Activity: Fall precautions Followup: Elan Cobb MD [ACTIVE - CAN ADMIT] - Time spent managing pt's care (in minutes): 25
[2022-08-22] MEDS ORDERED: HEPARIN 500 UNIT/5 ML SYR IV SCH (17:00)
== END 2022-08-22 17:50 | DRG 871 ==
LOC: ER 16:22 → ERHOLD 19:22 → 2ND 21:14
PROVIDERS: ADMIT Internal Medicine; ATTEND Internal Medicine
PROC: 02HV33Z Insertion of Infusion Device into Superior Vena Cava, Percutaneous Approach (ICD-10-PCS; principal; 2022-08-22 14:30)
DX: A41.51 Sepsis due to Escherichia coli [E. coli] (principal); I50.33 Acute on chronic diastolic (congestive) heart failure; I69.354 Hemiplegia and hemiparesis following cerebral infarction affecting left non-dominant side; N39.0 Urinary tract infection, site not specified; Z16.30 Resistance to unspecified antimicrobial drugs; C64.9 Malignant neoplasm of unspecified kidney, except renal pelvis; I11.0 Hypertensive heart disease with heart failure; I48.0 Paroxysmal atrial fibrillation; F31.9 Bipolar disorder, unspecified; J44.9 Chronic obstructive pulmonary disease, unspecified; E78.5 Hyperlipidemia, unspecified; R31.29 Other microscopic hematuria; Z66 Do not resuscitate; Z88.5 Allergy status to narcotic agent; Z88.0 Allergy status to penicillin; Z88.6 Allergy status to analgesic agent; Z88.8 Allergy status to other drugs, medicaments and biological substances; Z90.49 Acquired absence of other specified parts of digestive tract; Z79.82 Long term (current) use of aspirin; Z79.01 Long term (current) use of anticoagulants; Z91.048 Other nonmedicinal substance allergy status; Z91.041 Radiographic dye allergy status; Z91.040 Latex allergy status; Z96.653 Presence of artificial knee joint, bilateral; Z90.710 Acquired absence of both cervix and uterus; Z79.899 Other long term (current) drug therapy; Z20.822 Contact with and (suspected) exposure to COVID-19
CPT/HCPCS: 0240U; 36415; 51702; 71045; 80048; 80053; 80076; 81003; 81015; 83605; 83735; 83880; 84145; 84439; 84443; 84484; 85025; 85610; 87040; 87077; 87086; 87088; 87186; 93005; 93306; 96365; 96366; 96375; 99285; J1642; J1940; J2001; U0003

== ENCOUNTER 2022-10-22 09:41 | Inpatient (IN) | payer OTHER ==
--- OUTSIDE RECORDS SUMMARY | 2022-10-22 09:59 | XMS REPORT | Continuity of Care Document ---
:1945 Author Organization [facility] t Address [address] [place] [address] Care Team Providers Name Role Phone Pcp, Patient Does Not Have A Primary Care Physician [id number] Doctor Unassigned, [place] Attending Clinician Unavailable Arnulfo Roper RN Attending [...] y of on with on with 00:00: [place] RVR RVR 00 Medical Branch Anemia Anemia Disease Active Univers associated associated 2-06 it y of with with 00:00: [place] nutritiona nutritiona 00 Me dical l l Branch deficiency deficiency Elevated Elevated Disease Active Unive rs brain brain 2-06 ity of natriureti natriureti [place] c peptide c peptide 00 Medi mike (BNP) (BNP) Branch level level Complicate Complicate Disease Active U nivers d UTI d UTI 2-05 ity of (urinary (urinary 00:00: [place] tract tract 00 Medical infection) infection) Br anch Proteus Proteus Problem Active 2017-102019-04-16 M emoria (organism) (organism) 11-23 13:40:38 l Active 00:00: [place] 09/22/2018 00 Problem 04/16/2019 Urine (ESBL), 09/22/2018
Probl em added by Discern Expert. [facility] LT FEMUR LT FEMUR Diagnosis Active 2017-102018-12-25 Memoria FX,ATRIAL FX,ATRIAL 11-22 16:32:00 l FIB FIB 00:00: [place] W/RVR,S/P W/RVR,S/P 00 FALL FALL Active 09/21/2018 [facility] LEFT LEFT Diagnosis Active 2017-102018-09-22 Mem oria DISTAL DISTAL 11-22 01:56:00 l FEMUR FEMUR 00:00: [place] FX--S/P FX--S/P 00 FALL FALL Active 09/21/2018 [facility] Vitamin D Vitamin D Disease Active [facility] deficiency deficiency 4-03 Radha kes 00:00: Medical 00 Rumely Leucocytos Leucocytos Disease Active [facility] Rumely Hypercalce Hypercalce Disease Active [facility] kiki kiki 3-30 [facility] Medical 00 Rumely Morbid Morbid Disease Active [facility] obesity obesity 3-30 [facility] 00:[facility]: Medical 00 Rumely Hyponatrem Hyponatrem Disease Active [facility] ia ia 3- [facility] Medical 00 Rumely Atrial Atrial Disease Active [facility] fibrillati fibrillati 3- Radha kes on on 00:00: Medical 00 Center Congestive Congestive Disease Active [facility] heart heart 3- [facility] failure failure 00:00: Medical (CHF) (CHF) 00 Center Acute Acute Disease Active [facility] right MCA right MCA 3- [facility] s stroke stroke 00:00: Medical 00 Rumely Total knee Total knee Disease Active U nivers replacemen replacemen 9- it y of t status t status 00:00: [place] [id number] Medical Branch Body mass Body mass Problem 2019-04-16 Memoria index index 13:40:38 l (BMI) (BMI) [place] 45.0-49.9, 45.0-49.9, adult adult 04/16/2019 [facility] Morbid Morbid Problem 2019-04-16 Kaushal munira (severe) (severe) 13:40:38 l obesity obesity [place]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 04/16/2019 [facility] Acute Acute Problem 2019-04-16 Memor ia posthemorr posthemorr 13:40:38 l hagic hagic [place] anemia anemia 04/16/2019 [facility] Urinary Urinary Problem 2019-04-16 Fl moria tract tract 13:40:38 l infection, infection, He rmann site not site not specified specified 04/16/2019 [facility] Fall on Fall on Problem 2019-04-16 Me [place] same level same level 13:40:38 l from from [place] slipping, slipping, tripping tripping and and stumbling stumbling without without subsequent subsequent striking striking against against object, object, initial initial encounter encounter 04/16/2019 [facility] Chronic Chronic Problem 2019-04-16 Me [place] atrial atrial 13:40:38 l fibrillati fibrillati He rmann on on 04/16/2019 [facility] Dependence Problem 2019-04-16 M emoria on Dependence 13:40:38 l wheelchair on [place] n wheelchair 04/16/2019 [facility] Chronic Chronic Problem 2019-04-16 Me [place] obstructiv obstructiv 13:40:38 l e e [place] pulmonary pulmonary disease, disease, unspecifie unspecifie d d 04/16/2019 [facility] Hypertensi Hypertens Problem 2019-04-16 Memoria ve heart rola heart 13:40:38 l disease disease [place] with heart with heart failure failure 04/16/2019 [facility] Obstructiv Obstructi Problem 2019-04-16 Memoria e sleep ve sleep 13:40:38 l apnea apnea [place] (adult) (adult) (pediatric (pediatric ) ) 04/16/2019 [facility] Hyperlipid Hyperlipi Problem 2019-04-16 Memoria mello demmichele, 13:40:38 l unspecifie unspecifie He rmann d d 04/16/2019 [facility] Anxiety Anxiety Problem 2019-04-16 Fl [place] disorder, disorder, 13:40:38 l unspecifie unspecifie He rmann d d 04/16/2019 [facility] Gastro-eso Gastro-es Problem 2019-04-16 Memoria phageal ophageal 13:40:38 l reflux reflux [place] disease disease without without esophagiti esophagiti s s 04/16/2019 [facility] Vitamin Vitamin Problem 2019-04-16 Fl [place] B12 B12 13:40:38 l deficiency deficiency He rmann anemia, anemia, unspecifie unspecifie d d 04/16/2019 [facility] Hyperkalem Problem 2019-04-16 M emoria ia Hyperkalem 13:40:38 l ia [place] 04/16/2019 [facility] Thrombocyt Thrombocy Problem 2019-04-16 Memoria belén lees, 13:40:38 l unspecifie unspecifie He rmann d d 04/16/2019 [facility] Proteus Proteus Problem 2019-04-16 Fl [place] (mirabilis (mirabilis 13:40:38 l ) ) [place] (morganii) (morganii) as the as the cause of cause of diseases diseases classified classified elsewhere elsewhere 04/16/2019 [facility] Personal Personal Problem 2019-04-16 Memoria history of history of 13:40:38 l nicotine nicotine [place] n dependence dependence 9 [facility] Dehydratio Dehydrati Problem 2019-04-16 Memoria n on 13:40:38 l 04/16/2019 [place] n [facility] Age-relate Age-relat Problem 2019-04-16 Memoria d ed 13:40:38 l osteoporos osteoporos He rmann is without is without current current pathologic pathologic al al fracture fracture 04/16/2019 [facility] Hypotensio Hypotensi Problem 2019-04-16 Memoria n, on, 13:40:38 l unspecifie unspecifie He rmann d d 04/16/2019 [facility] Essential Essential Problem Resolve 2019-04-16 Memoria hypertensi hypertensi d 13:40:38 l on on [place] (disorder) (disorder) Resolved Problem 04/16/2019 [facility] Syncope Syncope Problem Resolve 2019-04-16 M emoria and and d 13:40:38 l collapse collapse [place] n (disorder) (disorder) Resolved Problem 04/16/2019 [facility] Anxiety Anxiety Problem Active 2019-04-16 M emoria disorder disorder 13:40:38 l (disorder) (disorder) He rmann Active Problem 04/16/2019 [facility] Chronic Chronic Problem Active 2019-04-16 Me [place] atrial atrial 13:40:38 l fibrillati fibrillati He rmann on on (disorder) (disorder) Active Problem 04/16/2019 [facility] Chronic Chronic Problem Active 2019-04-16 Me [place] diastolic diastolic 13:40:38 l heart heart [place] failure failure (disorder) (disorder) Active Problem 04/16/2019 [facility] Chronic Chronic Problem Active 2019-04-16 Me [place] obstructiv obstructiv 13:40:38 l e lung e lung [place] disease disease (disorder) (disorder) Active Problem 04/16/2019 [facility] Extreme Extreme Problem Active 2019-04-16 Me [place] obesity obesity 13:40:38 l with with [place] alveolar alveolar hypoventil hypoventil ation ation (disorder) (disorder) Active Problem 04/16/2019 [facility] Gastroesop Gastroeso Problem Active 2019-04-16 Memoria hageal phageal 13:40:38 l reflux reflux [place] disease disease (disorder) (disorder) Active Problem 04/16/2019 [facility] History of History Problem Active 2019-04-16 Memoria - CVA of - CVA 13:40:38 l (context-d (context-d He rmann ependent ependent category) category) Active Problem 04/16/2019 [facility] Hyperlipid Hyperlipi Problem Active 2019-04-16 Memoria emia demia 13:40:38 l (disorder) (disorder) He rmann Active Problem 04/16/2019 [facility] Hypertensi Hypertens Problem Active 2019-04-16 Memoria ve rola 13:40:38 l disorder, disorder, Herm valentin systemic systemic arterial arterial (disorder) (disorder) Active Problem 04/16/2019 [facility] Obstructiv Obstructi Problem Active 2019-04-16 Memoria e sleep ve sleep 13:40:38 l apnea apnea [place] syndrome syndrome (disorder) (disorder) Active Problem 04/16/2019 [facility] PERIPROSTH Diagnosis Active 2018-12-25 Memoria FRACTURE PERIPROSTH 16:32:00 l AROUND FRACTURE [place] OTHER AROUND INTERNA OTHER INTERNA Active [facility] UNSPECIFIE UNSPECIFI Diagnosis Active 2018-12-25 Memoria D ATRIAL ED ATRIAL 16:32:00 l FIBRILLATI FIBRILLATI He rmann ON ON Active [facility] Periprosth Periprost Problem 2019-04-16 Memoria etic hetic 13:40:38 l fracture fracture [place] n around around internal 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, joint, initial initial encounter encounter 04/16/2019 [facility] Gaby-prost Gaby-prost Problem Active U T hetic hetic Physici femoral femoral ans shaft shaft fracture fracture Hemiplegia Hemiplegi Problem 2019-04-16 Memfaith and a and 13:40:38 l hemiparesi hemiparesi He rmvalentin s s following following cerebral cerebral infarction infarction affecting affecting left left non-domina non-domina nt side nt side 04/16/2019 [facility] Chronic Chronic Problem 2019-04-16 Me mor[place] diastolic diastolic 13:40:38 l (congestiv (congestiv He rmann e) heart e) heart failure failure 04/16/2019 [facility] History of Past Illness Condition [...] encounter fracture for closed fracture 10/09/2018 04/16/2019 [facility] Allergies, Adverse Reactions, Alerts Allergy Allergy Status Severity Reaction(s) Onset Inactive Treating Comm ents Source Name Type Date Date Clinician Pregabal Propensi Active [facility] adverse 00:00: Medical reaction 00 Rumely s Haloperi Propensi Active Anxiety [facility] 3[facility]27 [facility] Lactate adverse 00:00: Medical reaction 00 Rumely s Iodine Propensi Active Itching, 2017- IV IODINE [facility] ty to Swelling 3-27 ONLY [facility] adverse 00:00: Medical reaction 00 Rumely s Aspirin Propensi Active 2017- [facility] (Tartraz ty to 3-26 [facility] ine adverse 00:00: Medical Only) reaction 00 Rumely s Haloperi Drug Active Anxiety 2016- [facility] dol Allergy 3-26 [facility] 00:00: Medical 00 Rumely Iodine Propensi Active Hives, Rash [facility] And ty to 3-26 [facility] Iodide adverse 00:00: Medical Containi reaction 00 [facility] s Products Latex Propensi Active H[place], [address] [facility] ty to Itching, 3-26 [facility] adverse Rash 00:00: Medical reaction 00 Rumely s Morphine Propensi Active Hives, [address] [facility] ty to Anxiety, 3-26 blood [facility] adverse Other (See 00:00: pressure Med ical reaction Comments) 00 Cente r s Penicill Drug Active Hives, Rash, [address] ins Allergy Swelling 3-26 [facility] 00:00: Medical 00 Rumely Penicill Drug Active Hives, Rash, [address] ins Allergy Swelling 3-26 [facility] 00:00: Medical 00 Rumely Pregabal Propensi Active Hallucinatio 2015- Univers in ty to ns 2-28 ity [...] 9-10 ity of adverse 00:00: [place] reaction Medical s to Branch drug HALOPERI DRUG Active Med Anxiety Univers DOL INGREDI 9-10 ity of LACTATE 00:00: [place] 00 Medical Branch IODINE DRUG Active Med ITCHING 0 Univers INGREDI 9-10 ity of 00:00: [place] 00 Medical Branch LATEX DRUG Active Med ITCHING 0 Univers INGREDI 9-10 ity of 00:00: [place] 00 Medical Branch MORPHINE DRUG Active Med Anxiety 0 Univers INGREDI 9-10 ity of 00:00: [place] 00 Medical Branch PENICILL Drug Active Med Rash 0 Univers INS Class 9-10 ity of 00:00: [place] 00 Medical Branch penicill penicill Active Memori a ins ins l [place] morphine morphine Active Memori a l [place] Haldol Haldol Active Memoria l [place] iodine iodine Active Memoria l [place] Latex Latex Active Memoria l [place] Social History Social Habit Start Date Stop Date Quantity Comments Source Exposure to Not sure [place] of SARS-CoV-2 [facility] (event) [place] Alcohol intake 2016-12-30 2016-12-30 Current MONICA Meza es 00:00:00 00:00:00 non-drinker of Medical Ce nter alcohol (finding) Tobacco use and 2015-06-11 2015-06-11 Smokeless tobacco Un iversity of exposure 00:00:00 00:00:00 non-user [facility] Social History 2013-10-18 2013-10-18 [facility] 13:16:47 13:16:47 [birth year] MONICA Puente kes 00:00:00 00:00:00 [facility] Smoking Status Start Date Stop Date Source Never smoker [facility] Medications Ordered Filled Start Stop Current Ordering Indication Dosage Frequency Signature Comments Components Source Medication Medication Date Date Medication? Clinician (SIG) Name Name MONSTER 2021-0 202- No 40meq 40 mEq, Univers (KLOR-CON [...] mouth [place] 00 daily. Medical Branch atorvastati Yes 40mg Take 1 Univ ers n [...] 00:00: mouth 00 daily. Medical Branch gabapentin Yes 100mg Take 1 Univ ers 100 [...] by ity o f 00:00: mouth at 00 bedtime. Medical Branch metoprolol Yes 50mg [...] (two) Medical times Branch daily. ferrous Yes [id number] 325mg Take 1 Uni vers sulfate 2-10 [...] affected ity of cream 00:00: area(s) 2 [place] 00 (two) Medical times Branch daily. melatonin 3 2021-0 Yes 3mg Take 1 Univ ers mg tablet 2-10 tablet by ity o f 00:00: mouth at [place] 00 bedtime. Medical Branch metoprolol 2021-0 Yes 50mg Take 1 Unive rs succinate 2-10 tablet by ity o f XL 50 mg 24 00:00: mouth 2 Scar as hr tablet 00 (two) Medical times Branch daily. montelukast 2021-0 Yes 10mg Take 1 Univ ers 10 mg 2-10 tablet by ity of tablet 00:00: mouth [place] 00 every Medical evening. Branch nystatin 2021-0 Yes Apply to Unive rs 100,000 2-10 [...] Medical times Branch daily. ferrous 2021-0 Yes [id number] 325mg Take 1 Uni vers sulfate 2-10 [...] of tablet 00:00: mouth daily. Medical Branch atorvastati 2021-0 Yes 40mg [...] Medical times Branch daily. ferrous 2021-0 Yes [id number] 325mg Take 1 Uni vers sulfate 2-10 [...] mouth [place] 00 daily. Medical Branch gabapentin Yes 100mg Take 1 Univ ers 100 [...] (two) Medical times Branch daily. ferrous Yes [id number] 325mg Take 1 Uni vers sulfate 2-10 tablet by ity of (IRON) 325 00:00: mouth [place] mg (65 mg 00 daily. Medical iron) Branch tablet furosemide 2021- No [id number] 20mg Take 1 Univers 20 mg 2-10 03-13 tablet by ity of tablet 00:00: 05:59 mouth [place] 00 :00 daily for Medical 30 days. Branch furosemide 0 2021- No [id number] 20mg Take 1 Univers 20 mg 2-10 03-13 tablet by ity of tablet 00:00: 05:59 mouth [place] 00 :00 daily for Medical 30 days. Branch furosemide 0 2021- No [id number] 20mg Take 1 Univers 20 mg 2-10 03-13 tablet by ity of tablet 00:00: 05:59 mouth [place] 00 :00 daily for Medical 30 days. Branch albuterol 2021- No [id number] 2{puff} Inhale 2 Univers 90 2-10 02-26 Puffs ity of mcg/actuati 00:00: 05:59 every 6 [place] on inhaler 00 :00 (six) Medical hours as Branch needed for Wheezing or Shortness of Breath for up to 15 days. albuterol 2021- No [id number] 2{puff} Inhale 2 Univers 90 2-10 02-26 Puffs ity of mcg/actuati 00:00: 05:59 every 6 [place] on inhaler 00 :00 (six) Medical hours as Branch needed for Wheezing or Shortness of Breath for up to 15 days. albuterol 2021- No [id number] 2{puff} Inhale 2 Univers 90 2-10 02-26 Puffs ity of mcg/actuati 00:00: 05:59 every 6 [place] on inhaler 00 :00 (six) Medical hours as Branch needed for Wheezing or Shortness of Breath for up to 15 days. magnesium 2021- No [id number] 400mg Take 400 Univers oxide 420 2-10 02-16 mg by ity of mg Tab 00:00: 05:59 mouth [place] 00 :00 daily for Medical 5 days. Branch magnesium 2021- No [id number] 400mg Take 400 Univers oxide 420 2-10 02-16 mg by ity of mg Tab 00:00: 05:59 mouth [place] 00 :00 daily for Medical 5 days. Branch nitrofurant 2021- No [id number] 100mg Take 1 Univers oin 100 mg 11-11- capsule by it y of capsule 00:00: 05:59 mouth 4 [place] 00 :00 (four) Medical times Branch daily for 2 days. nitrofurant 2021- No [id number] 100mg Take 1 Univers oin 100 mg 11-11-13 capsule by it y of capsule 00:00: 05:59 mouth 4 [place] 00 :00 (four) Medical times Branch daily for 2 days. LORazepam 2022-0 Yes .25mg 0.25 mg, Uni vers (ATIVAN) 2-09 Oral, ity of tablet 0.25 19:28: BIDPRN, Scar as mg 18 Starting Medical on Mon11/10/21 at 1328, Until Discontinu ed, Routine, Anxiety, Agitation omeprazole 0 Yes 20mg 20 mg, Unive rs (PRILOSEC) 2-09 Oral, ity of capsule 20 15:00: DAILY, [place] mg 00 First dose Medical on Mon11/10/21 at 0900, Until Discontinu ed, Routine melatonin Yes 3mg 3 mg, Univers (MELATIN) 2-09 Oral, QHS, ity of tablet 3 mg 03:00: First dose [place] 00 on [facility] 11/09/21 at Branch 2100, Until Discontinu ed, Routine metoprolol Yes 50mg 50 mg, Unive rs succinate 2 Oral, BID, ity of XL (TOPROL 02:00: First dose [place] XL) tablet 00 on [facility] 50 mg 11/09/21 at [place] 2000, Until Discontinu ed, Routine hydrocortis Yes Topical Uni vers one 2.5 % 11-10 (Apply To ity o f cream 02:00: Affected [place] 00 Areas), Medical BID, First Branch dose on [facility] 11/09/21 at 2000, Until Discontinu ed, Routine nystatin Yes Topical, Unive rs (NYSTOP) 2- BID, First ity o f powder 02:00: dose on [place] 00 [facility] 11/09/21 Medical at 2000, Branch Until Discontinu ed, Routine QUEtiapine 0 2021- No 50mg 50 mg, Univ ers (SEROQUEL) 2 02-09 Oral, BID, it y of tablet 50 02:00: 14:40 First dose [place] mg 00 :45 on [facility] 11/09/21 at [place] 2000, Until Discontinu ed, Routine montelukast 0 Yes 10mg 10 mg, Univ ers (SINGULAIR) 2-08 Oral, QPM, it y of tablet 10 23:00: First dose [place] mg 00 on [facility] 11/09/21 at Branch 1700, Until Discontinu ed, Routine nitrofurant 2022-0 2022- No 100mg 100 mg, U nivers oin 2-08 02-13 Oral, QID, ity of (MACRODANTI 21:45: 17:59 20 doses, [place] N) capsule 00 :00 First dose Med ical 100 mg on [facility] 11/09/21 at 1545, Last dose on 11/14/21 at 0800, Routine
Reason for Anti-Infec tive: Empiric Therapy for Suspected Infection< br>Empiric Therapy Site: Urine
D uration of therapy: 7 days magnesium 2022-0 Yes 400mg 400 mg, Univ ers oxide 2-08 Oral, BID, ity of (MAG-OX 21:15: First dose [place] 400) tablet 00 on [facility] l 400 mg 11/09/21 at Branch 1515, Until Discontinu ed, Routine DULoxetine 2021-0 Yes 60mg 60 mg, Unive rs (CYMBALTA) 2-08 Oral, ity of capsule 60 21:15: DAILY, [place] mg 00 First dose Medical on [facility] 11/09/21 at 1515, Until Discontinu ed, Routine sennosides 2021-0 Yes 8.6mg 8.6 mg, Uni vers (SENOKOT) 2-08 Oral, BID, ity of tablet 8.6 21:15: First dose [place] mg 00 on [facility] 11/09/21 at Branch 1515, Until Discontinu ed, Routine docusate 2021-0 Yes 100mg 100 mg, Unive rs (COLACE) 2-08 Oral, BID, ity o f capsule 100 21:15: First dose [place] mg 00 on [facility] 11/09/21 at Branch 1515, Until Discontinu ed, Routine buPROPion 2021-0 Yes 75mg 75 mg, Univer s (WELLBUTRIN 2-08 Oral, ity of ) tablet 75 21:15: DAILY, [place] mg 00 First dose Medical on [facility] 11/09/21 at 1515, Until Discontinu ed, Routine gabapentin 2021-0 Yes 100mg 100 mg, Uni vers (NEURONTIN) 2-08 Oral, TID, it y of capsule 100 21:15: First dose [place] mg 00 on [facility] 11/09/21 at Branch 1515, Until Discontinu ed, Routine furosemide Yes 20mg 20 mg, IV Un monalisa (LASIX) 11-09 Push, ity of injection 21:15: Q8HA2, [place] 20 mg 00 First dose Medical on Mon [place] 11/09/21 at 1515, Until Discontinu ed, MARIA ELENA LORazepam 2021- No .25mg 0.25 mg, Un monalisa (ATIVAN) 11-09 Oral, TID, ity of tablet 0.25 21:00: 14:40 First dose [place] mg 00 :39 on Mon Medical 11/09/21 at Branch 1500, Until Discontinu ed, [...] 2021- No Take by Un monalisa -acetaminop 2-08 02-08 mouth ity of hen (NORCO) 15:08: 00:00 every 6 [place] 10-325 mg 27 :00 (six) Medical tablet hours as Branch needed. LORazepam 2021- No .5mg Take 0.5 Uni vers (ATIVAN) 2-08 mg by ity of 0.5 mg 15:08: [...] magnesium 2021- No Take by [facility] [place] [facility] ers hydroxide 11-09-08 mouth. ity of (MILK OF 15:08: 00:00 [place] MAGNESIA 27 :00 Medical ORAL) Branch cranberry 2021- No Take by [facility] [place] [facility] ers fruit 11-09-08 mouth. ity of (CRANBERRY) 15:08: 00:00 [place] [...] [place] 22 :00 times Medical daily. [place] furosemide 80mg Take 80 mg Univers (LASIX) 80 11-09 by mouth ity of mg tablet 15:08: 00:00 daily. [place] 22 :00 [facility] diclofenac 2021- No 75mg Take 75 mg Univers (VOLTAREN) 11-09 by mouth ity of 75 mg EC 15:08: 00:00 daily. [place] tablet 22 :00 [facility] atorvastati Yes 40mg 40 mg, Univ ers n (LIPITOR) 08 Oral, QHS, it y of tablet 40 03:00: First dose [place] mg 00 on [facility] 11/08/21 at Branch 2100, Until Discontinu ed, Routine vancomycin 15mg/kg 1,500 mg Univers 1500 mg in 11-08 (rounded ity of NS 500 mL 18:15: 21:32 from [place] IV 00 :52 2,131.5 mg Medical Piggyback = 15 mg/kg Bran ch RTU 1,500 ?142.1 mg kg), IV Piggyback, Q12H ABX, First dose on [facility] 11/08/21 at 1215, Until Discontinu ed, Administer over 90 Minutes
Reason for Anti-Infec tive: Documented Infection< br>Documen janine Infection Site: Urine
D uration of Therapy: 7 days potassium, 2021- No 2{packe 2 Packet, Univers sodium 11-08 t} Oral, ity of phosphates 15:15: 16:00 ONCE, 1 Scar as (PHOS-NAK) 00 :00 dose, On Medic al [phone] [facility] 11/08/21 Br anch mg packet 2 at 0915, Packet Routine apixaban Yes 5mg 5 mg, Univers (ELIQUIS) 11-08 Oral, BID, ity of tablet 5 mg 02:00: First dose [place] 00 on [facility] 11/07/21 at Branch 2000, Until Discontinu ed, Routine
Indicatio ns: Non-Valvul ar Atrial Fibrillati on phosphorus 2022-0 2022- No 250mg 1 tablet U nivers (K [...] No 25mg 25 mg, Univ ers tartrate 2 02-08 Oral, Q8H, ity of (LOPRESSOR) 18:30: 20:58 First dose [place] tablet 25 00 :06 on [facility] mg 11/07/21 at Branch 1230, Until Discontinu ed, Routine sulfur 2021- No [id number] 5mL 5 mL, Unive rs hexafluorid 11-07 Intravenou i ty of e microsphr 15:30: 15:30 s, ONCE, 1 [place] (LUMASON) 00 :00 dose, On Medica l injection 5 11/07/21 Br anch mL at 0930, Routine
member service specialist approving Restricted medication : KRYSTYNA JAEGER aspirin Yes 81mg 81 mg, Univers chewable 11-07 Oral, ity of tablet 81 15:00: DAILY, [place] mg 00 First dose Medical on [place] Branch 11/07/21 at 0900, Until Discontinu ed, Routine enoxaparin 2021- No 1mg/kg 129 mg Un monalisa (LOVENOX) 11-07 0206 (rounded ity o f injection 15:00: 18:25 from 131.5 [place] 129 mg 00 :57 mg = 1 Medical mg/kg Branch ?131.5 kg), Subcutaneo us, DAILY, First dose (after last modificati on) on 11/07/21 at 0900, Until Discontinu ed, Routine HYDROcodone Yes 1{tbl} 1 tablet, Univers -acetaminop 2-06 Oral, ity of hen (NORCO) 12:25: Q6HPRN, Scar as 10-325 mg 02 Starting Medica l tablet 1 on Sun Branch tablet 11/07/21 at 0625, Until Discontinu ed, Routine, Pain (scale 7-10) albuterol Yes 2{puff} 2 Puff, Un monalisa (VENTOLIN) 11-07 Inhalation ity of inhaler 2 04:48: , Q6HPRN, Scar as Puff 58 Starting Medical on Sat Branch 11/06/21 at 2248, Until Discontinu ed, Routine, Wheezing, Shortness of Breath diltiazem 2021- No 20mg 20 mg, Unive rs (CARDIZEM 11-07 02-06 Slow IV ity of IV) 03:30: 02:48 Push, [place] injection 00 :00 ONCE, 1 Medical 20 mg dose, On Branch 11/06/21 at 2130, Routine
member service specialist approving Restricted medication : KRYSTYNA JAEGER diltiazem [...] ity of 1,000 mg in 02:00: 18:[facility] [place] NaCl 0.9% 00 :04 Q24H ABX, Medic al (NS) 50 mL First dose [facility] MINI-BAG on 11/06/21 at 2000, Until Discontinu ed, Administer over 30 Minutes, 50 mL
Reas on for Anti-Infec tive: Empiric Therapy for Suspected Infection< br>Empiric Therapy Site: Urine
D uration of therapy: 72 hours acetaminoph Yes 650mg 650 mg, Un monalisa en 2-06 Oral, ity of (TYLENOL) 00:47: Q6HPRN, [place] tablet 650 46 Starting Medic al mg [...] 2-27 0.5 mL, l mL 21:23: SUB-Q, [place] subcutaneou 00 [id number], s solution X 21 day, # 11 mL, 0 Refill(s), other tizanidine 2017-10 Yes 2 mg = 1 Mem oria 2 mg oral 2-27 tab, PO, l tablet 21:23: Q6H, PRN [place] 00 Muscle Spasms, 0 Refill(s) tiotropium 2017-10 Yes 18 Memoria 2-27 microgram, l 21:23: INHALATION Leo 00 , RDaily, 0 Refill(s) sennosides, 2017-10 Yes 17.2 mg = M emoria ASSISTED 8.6 MG 2-27 2 tab, PO, l Oral Tablet 21:23: Bedtime, 0 [place] 00 Refill(s) pantoprazol 2017-10 Yes 40 mg = 1 M emoria e 40 mg 2-27 tab, PO, l oral 21:23: Before [place] enteric 00 Breakfast, coated 0 tablet Refill(s) Docusate 2017-10 Yes 100 mg = 1 Mem oria Sodium 100 2-27 cap, PO, l MG Oral 21:23: BID, 0 [place] Capsule 00 Refill(s) Aspirin 325 2017-10 Yes 325 mg = 1 Memoria MG Enteric 2-27 tab, PO, l Coated 21:23: Daily, 0 [place] Tablet 00 Refill(s) Albuterol 2017-10 Yes 3 mL, NEB, Me moria 0.833 MG/ML 2-27 PRN, PRN l / 21:23: Respirator Leo Ipratropium 00 y Pathway, Graham 0 0.167 MG/ML Refill(s) Inhalant Solution [DuoNeb] [...] gm = 1 M emoria E GLYCOL 2-27 pkt, PO, l 3350 21:23: Daily, 0 [place] 00 Refill(s) multivitami 2017-10 Yes 1 tab, PO, Memoria n 2-27 Daily, 0 l 21:23: Refill(s) Leo 00 metoprolol 2017-10 Yes 12.5 mg = Me moria tartrate 25 2-27 0.5 tab, l mg oral 21:23: PO, BID, 0 Herm valentin tablet 00 Refill(s) melatonin 3 2017-10 Yes 3 mg = 1 Me moria mg oral 2-27 tab, PO, l tablet 21:23: Bedtime, Leo 00 PRN Insomnia, 0 Refill(s) Lidocaine 2017-10 Yes 1 patch, Kaushal munira Hydrochlori 2-27 TOP, l de 0.05 21:23: Daily, Leo MG/MG 00 Remove Transdermal after 12 Patch hours, 0 [Lidoderm] Refill(s) gabapentin 2017-10 Yes 100 mg = 1 M emoria 100 MG Oral 2-27 cap, PO, l Capsule 21:23: Q8Hnow, 0 Mervat nn 00 Refill(s) ertapenem 1 2017-10 No 1 gm, IV, M emoria g injection 2-27 Q24H, X 6 l 21:23: day, # 6 [place] 00 syr, 0 Refill(s), other enoxaparin 2017-10 No 50 mg = Kaushal munira 60 mg/0.6 2-27 0.5 mL, l mL 21:23: SUB-Q, [place] subcutaneou 00 [id number], s solution X 21 day, # 11 mL, 0 Refill(s), other tizanidine 2017-10 Yes 2 mg = 1 Mem oria 2 mg oral 2-27 tab, PO, l tablet 21:23: Q6H, PRN [place] 00 Muscle Spasms, 0 Refill(s) tiotropium 2017-10 Yes 18 Memoria 2-27 microgram, l 21:23: INHALATION [place] 00 , RDaily, 0 Refill(s) sennosides, 2017-10 Yes 17.2 mg = M emoria ASSISTED 8.6 MG 2-27 2 tab, PO, l [...] 2-27 PRN, PRN l / 21:23: Respirator [place] Ipratropium 00 y Pathway, Graham 0 0.167 MG/ML Refill(s) Inhalant Solution [DuoNeb] [...] gm = 1 M emoria E GLYCOL 227 pkt, PO, l 3350 21:23: Daily, 0 [place] 00 Refill(s) multivitami 2017-10 Yes 1 tab, PO, Memoria n 2-27 Daily, 0 l 21:23: Refill(s) [place] 00 metoprolol 2017-10 Yes 12.5 mg = Me moria tartrate 25 2-27 0.5 tab, l mg oral 21:23: PO, BID, 0 Herm valentin tablet 00 Refill(s) melatonin 3 2017-10 Yes 3 mg = 1 Me moria mg oral 2-27 tab, PO, l tablet 21:23: Bedtime, [place] 00 PRN Insomnia, 0 Refill(s) Lidocaine 2017-10 Yes 1 patch, Kaushal munira Hydrochlori 11-28 TOP, l de 0.05 21:23: Daily, Leo MG/MG 00 Remove Transdermal after 12 Patch hours, 0 [Lidoderm] Refill(s) gabapentin 2017-10 Yes 100 mg = 1 M emoria 100 MG Oral 227 cap, PO, l Capsule 21:23: Q8Hnow, 0 Mervat nn 00 Refill(s) ertapenem 1 2017-10 No 1 gm, IV, M emoria g injection 11-28 Q24H, X 6 l 21:23: day, # 6 Leo 00 syr, 0 Refill(s), other enoxaparin 2017-10 No 50 mg = Kaushal munira 60 mg/0.6 2-27 0.5 mL, l mL 21:23: SUB-Q, Leo subcutaneou 00 [id number], s solution X 21 day, # 11 mL, 0 Refill(s), other tizanidine 2017-10 Yes 2 mg = 1 Mem oria 2 mg oral 2-27 tab, PO, l tablet 21:23: Q6H, PRN Leo 00 Muscle Spasms, 0 Refill(s) tiotropium 2017-10 Yes 18 Memoria 2-27 microgram, l 21:23: INHALATION [place] 00 , RDaily, 0 Refill(s) sennosides, 2017-10 Yes 17.2 mg = M emoria ASSISTED 8.6 MG 2-27 2 tab, PO, l Oral Tablet 21:23: Bedtime, 0 [place] 00 Refill(s) pantoprazol 2017-10 Yes 40 mg = 1 M emoria e 40 mg 2-27 tab, PO, l oral 21:23: Before [place] enteric 00 Breakfast, coated 0 tablet Refill(s) Docusate 2017-10 Yes 100 mg = 1 Mem oria Sodium 100 2-27 cap, PO, l MG Oral 21:23: BID, 0 [place] Capsule 00 Refill(s) Aspirin 325 2017-10 Yes 325 mg = 1 Memoria MG Enteric 2-27 tab, PO, l Coated 21:23: Daily, 0 [place] Tablet 00 Refill(s) Albuterol 2017-10 Yes 3 mL, NEB, Me moria 0.833 MG/ML 2-27 PRN, PRN l / 21:23: Respirator [place] Ipratropium 00 y Pathway, Graham 0 0.167 MG/ML Refill(s) Inhalant Solution [DuoNeb] [...] gm = 1 M emoria E GLYCOL 2-27 pkt, PO, l 3350 21:23: Daily, 0 Leo 00 Refill(s) multivitami 2017-10 Yes 1 tab, PO, Memoria n 2-27 Daily, 0 l 21:23: Refill(s) [place] 00 metoprolol 2017-10 Yes 12.5 mg = Me moria tartrate 25 2-27 0.5 tab, l mg oral 21:23: PO, BID, 0 Herm valentin tablet 00 Refill(s) melatonin 3 2017-10 Yes 3 mg = 1 Me moria mg oral 2-27 tab, PO, l tablet 21:23: Bedtime, [place] 00 PRN Insomnia, 0 Refill(s) Lidocaine 2017-10 Yes 1 patch, Kaushal munira Hydrochlori 2-27 TOP, l de 0.05 21:23: Daily, [place] MG/MG 00 Remove Transdermal after 12 Patch hours, 0 [Lidoderm] Refill(s) Lovenox 2017-10 No Notes: Memoria 2-27 Nurse to l 16:00: ensure Leo 00 documentat ion of patient education per anticoagul ation policy. (Same as: Lovenox) Lovenox 2017-10 No Notes: Memoria 2-27 Nurse to l 16:00: ensure Leo 00 documentat ion of patient education per anticoagul ation policy. (Same as: Lovenox) Lovenox 2017-10 No Notes: Memoria 2-27 Nurse to l 16:00: ensure [place] 00 documentat ion of patient education per anticoagul ation policy. (Same as: Lovenox) heparin 2017-10 No Notes: Memoria 2-27 porcine l 06:00: heparin [place] 00 heparin 2017-10 No Notes: Memoria 2-27 porcine l 06:00: heparin [place] 00 heparin 2017-10 No Notes: Memoria 2-27 porcine l 06:00: heparin [place] 00 remove 2017-10 No Notes: Memoria patch 2-27 Remove l 03:00: patch 12 [place] 00 hours after applicatio n each day. Eliquis 2017-10 No 5 mg, Memoria 2-27 Route: PO, l 03:00: Drug form: [place] 00 TAB, Q12H, Dosing Weight 136, kg, Start date: 09/26/18 21:00:00 WELDER SETTER RESISTANCE MACHINE, Duration: 30 day, Stop date: 10/26/18 9:00:00 WELDER SETTER RESISTANCE MACHINE remove 2017-10 No Notes: Memoria patch 2-27 Remove l 03:00: patch 12 [place] 00 hours after applicatio n each day. Eliquis 2017-10 No 5 mg, Memoria 2-27 Route: PO, l 03:00: Drug form: [place] 00 TAB, Q12H, Dosing Weight 136, kg, Start date: 09/26/18 21:00:00 WELDER SETTER RESISTANCE MACHINE, Duration: 30 day, Stop date: 10/26/18 9:00:00 WELDER SETTER RESISTANCE MACHINE remove 2017-10 No Notes: Memoria patch 2-27 Remove l 03:00: patch 12 Leo 00 hours after applicatio n each day. Eliquis 2017-10 No 5 mg, Memoria 2-27 Route: PO, l 03:00: Drug form: [place] 00 TAB, Q12H, Dosing Weight 136, kg, Start date: 09/26/18 21:00:00 WELDER SETTER RESISTANCE MACHINE, Duration: 30 day, Stop date: 10/26/18 9:00:00 WELDER SETTER RESISTANCE MACHINE Aspirin 2017-10 No Notes: (Do Kaushal munira 2-26 Not Crush) l 21:00: Do not [place] 00 crush or chew. Aspirin 2017-10 No Notes: (Do Kaushal munira 2-26 Not Crush) l 21:00: Do not Leo 00 crush or chew. Aspirin 2017-10 No Notes: (Do Kaushal munira 2-26 Not Crush) l 21:00: Do not [place] 00 crush or chew. ertapenem 2017-10 No Notes: Memori a 2-26 (Same as: l 16:00: INVanz) [place] 00 Refrigerat e. NOT COMPATIBLE WITH D5W. Stable in refrigerat or for 24 hours MEDICATION WASTE Product Size: 1000 mg Product Wasted: ___ mg ertapenem 2017-10 No Notes: Memori a 2-26 (Same as: l 16:00: INVanz) [place] 00 Refrigerat e. NOT COMPATIBLE WITH D5W. Stable in refrigerat or for 24 hours MEDICATION WASTE Product Size: 1000 mg Product Wasted: ___ mg ertapenem 2017-10 No Notes: Memori a 2-26 (Same as: l 16:00: INVanz) Leo 00 [...] food. Dulcolax 2017-10 No Notes: Memoria Laxative 2-26 (Same As: l 14:58: Dulcolax, Leo 00 Bisco-Lax) Dulcolax 2017-10 No Notes: Memoria Laxative 2-26 (Same As: l 14:58: Dulcolax, [place] 00 Bisco-Lax) Dulcolax 2017-10 No Notes: Memoria Laxative 2-26 (Same As: l 14:58: Dulcolax, [place] 00 Bisco-Lax) heparin 2017-10 No Notes: Memoria 2-25 porcine l 22:00: heparin [place] heparin 2017-10 No Notes: Memoria 2-25 porcine l 22:00: heparin [place] heparin 2017-10 No Notes: Memoria 2-25 porcine l 22:00: heparin [place] Plavix 2017-10 No Notes: Memoria 2-25 (Same As: l 19:44: Plavix) [place] Plavix 2017-10 No Notes: Memoria 2-25 (Same As: l 19:44: Plavix) Leo Plavix 2017-10 No Notes: Memoria 2-25 (Same As: l 19:44: Plavix) [place] 00 Magic 2017-10 No Notes: Memoria Mouthwash 2-25 Magic l (Benadryl/L 15:21: mouth wash [place] idocaine/Ma 00 contains:B alox/) enadryl/Li 1:1:1 docaine/Ma alox/) 1:1:1; total volume 5 ml Magic 2017-10 No Notes: Memoria Mouthwash 2-25 Magic l (Benadryl/L 15:21: mouth wash Leo idocaine/Ma 00 contains:B alox/) enadryl/Li 1:1:1 docaine/Ma alox/) 1:1:1; total volume 5 ml Magic 2017-10 No Notes: Memoria Mouthwash 2-25 Magic l (Benadryl/L 15:21: mouth wash [place] idocaine/Ma 00 contains:B alox/) enadryl/Li 1:1:1 docaine/Ma [...] 1000 mg Product Wasted: ___ mg Vancomycin 2017- No 2000 mg: Me moria 2-25 infuse l 07:00: over 2.5 Leo 00 hours For adult patients only: Round to nearest 250 mg per Medical Staff approval MEDICATION WASTE Product Size: 1000 mg Product Wasted: ___ mg Cefazolin 2017- No 3,000 mg, Mem oria 2-25 150 mL, l 02:00: Route: [place] 00 IVPB, Drug form: INJ, ABXQ8H, Dosing Weight 136, kg, Start date: 09/24/18 20:00:00 WELDER SETTER RESISTANCE MACHINE, Duration: 3 doses or times, Stop date: 09/25/18 12:00:00 WELDER SETTER RESISTANCE MACHINE, ABX Indication : Surgical Prophylaxi s Cefazolin 2017-10 No 3,000 mg, Mem oria 2-25 150 mL, l 02:00: Route: Leo 00 IVPB, Drug form: INJ, ABXQ8H, Dosing Weight 136, kg, Start date: 09/24/18 20:00:00 WELDER SETTER RESISTANCE MACHINE, Duration: 3 doses or times, Stop date: 09/25/18 12:00:00 WELDER SETTER RESISTANCE MACHINE, ABX Indication : Surgical Prophylaxi s Cefazolin 2017-10 No 3,000 mg, Mem oria 2-25 150 mL, l 02:00: Route: Leo 00 IVPB, Drug form: INJ, ABXQ8H, Dosing Weight 136, kg, Start date: 09/24/18 20:00:00 WELDER SETTER RESISTANCE MACHINE, Duration: 3 doses or times, Stop date: 09/25/18 12:00:00 WELDER SETTER RESISTANCE MACHINE, ABX Indication : Surgical Prophylaxi s Lovenox [...] Notes: Memoria 2-24 NSAID. l 23:00: Please [place] 00 check indication . Not for seizure. (Same As: CeleBREX) Neurontin 2017-10 No Notes: Memori a 2-24 (Same as: l 23:00: Neurontin) CeleBREX 2017-10 No Notes: Memoria 2-24 NSAID. l 23:00: Please [place] 00 check indication . Not for seizure. (Same As: CeleBREX) Neurontin 2017-10 No Notes: Memori a 2-24 (Same as: l 23:00: Neurontin) CeleBREX 2017-10 No Notes: Memoria 2-24 NSAID. l 23:00: Please [place] 00 check indication . Not for seizure. (Same As: CeleBREX) Metoprolol 2017-10 No 2 mg, Memori a 2-24 Route: IV, l 22:46: ONCE, Dosing Weight 136, kg, Priority: STAT, Start date: 09/24/18 16:46:00 WELDER SETTER RESISTANCE MACHINE, Stop date: 09/24/18 16:46:00 WELDER SETTER RESISTANCE MACHINE Metoprolol 2017-10 No 2 mg, Memori a 2-24 Route: IV, l 22:46: ONCE, Dosing Weight 136, kg, Priority: STAT, Start date: 12/24/18 16:46:00 WELDER SETTER RESISTANCE MACHINE, Stop date: 09/24/18 16:46:00 WELDER SETTER RESISTANCE MACHINE Metoprolol 2017-10 No 2 mg, Memori a 2-24 Route: IV, l 22:46: ONCE, [place] Dosing Weight 136, kg, Priority: STAT, Start date: 09/24/18 16:46:00 WELDER SETTER RESISTANCE MACHINE, Stop date: 09/24/18 16:46:00 WELDER SETTER RESISTANCE MACHINE Oxycodone 2017-10 No Notes: Memori a Hydrochlori [...] 2-24 not give l 20:42: IV push. [place] 00 (Same as: Phenergan) Hydromorpho 2017-10 No Notes: Kaushal munira ne 2-24 Same as l 20:42: Dilaudid Leo 00 Flumazenil 2017-10 No Notes: Memor ia 2-24 (Same as: l 20:42: Romazicon) Leo 00 Naloxone 2017-10 No Notes: Memoria 2-24 Same as l 20:42: Narcan Leo 00 Diphenhydra 2017-10 No Notes: Kaushal munira mine 2-24 (Same as: l 20:42: Benadryl) Leo Hydralazine 2017-10 No Notes: Kaushal munira 2-24 (Same as: l 20:42: Apresoline [place] ) Push over 5 minutes Promethazin 2017-10 No Notes: Do M emoria e 2-24 not give l 20:42: IV push. [place] 00 (Same as: Phenergan) Hydromorpho 2017-10 No Notes: Kaushal munira ne 2-24 Same as l 20:42: Dilaudid [place] 00 Flumazenil 2017-10 No Notes: Memor ia 2-24 (Same as: l 20:42: Romazicon) Leo 00 Naloxone 2017-10 No Notes: Memoria 2-24 Same as l 20:42: Narcan Diphenhydra 2017-10 No Notes: Kaushal munira mine 2-24 (Same as: l 20:42: Benadryl) Hydralazine 2017-10 No Notes: Kaushal munira 2-24 (Same as: l 20:42: Apresoline ) Push over 5 minutes Promethazin 2017-10 No Notes: Do M emoria e 2-24 not give l 20:42: IV push. [place] 00 (Same as: Phenergan) Hydromorpho 2017-10 No Notes: [...] 2-24 Drug form: l 20:29: INJ, ONCE, [place] 00 Stop date: 09/24/18 14:29:00 WELDER SETTER RESISTANCE MACHINE sugammadex 2017-10 No Route: IV, M emoria (ANES) 2-24 Drug form: l 20:29: SOLN, [place] 00 ONCE, Stop date: 09/24/18 14:29:00 WELDER SETTER RESISTANCE MACHINE ondansetron 2017-10 No Route: IV, Memoria (ANES) 2-24 Drug form: l 20:29: INJ, ONCE, [place] Stop date: 09/24/18 14:29:00 WELDER SETTER RESISTANCE MACHINE sugammadex 2017-10 No Route: IV, M emoria (ANES) 2-24 Drug form: l 20:29: SOLN, [place] 00 ONCE, Stop date: 09/24/18 14:29:00 WELDER SETTER RESISTANCE MACHINE ondansetron 2017-10 No Route: IV, Memoria (ANES) 2-24 Drug form: l 20:29: INJ, ONCE, Stop date: 09/24/18 14:29:00 WELDER SETTER RESISTANCE MACHINE sugammadex 2017-10 No Route: IV, M emoria (ANES) 2-24 Drug form: l 20:29: SOLN, ONCE, Stop date: 09/24/18 14:29:00 WELDER SETTER RESISTANCE MACHINE sugammadex 2017-10 No Notes: Memor ia 2-24 (Same as: l 19:54: [place]) sugammadex 2017-10 No Notes: Memor ia 2-24 (Same as: l 19:54: [place]) sugammadex 2017-10 No Notes: Memor ia 2-24 (Same as: l 19:54: [place]) dexamethaso 2017-10 No Route: IV, Memoria ne (ANES) 2-24 Drug form: l 19:53: INJ, ONCE, Stop date: 09/24/18 13:53:00 WELDER SETTER RESISTANCE MACHINE dexamethaso 2017-10 No Route: IV, Memoria ne (ANES) 2-24 Drug form: l 19:53: INJ, ONCE, Stop date: 09/24/18 13:53:00 WELDER SETTER RESISTANCE MACHINE dexamethaso 2017-10 No Route: IV, Memoria ne (ANES) 2-24 Drug form: l 19:53: INJ, ONCE, Stop date: 09/24/18 13:53:00 WELDER SETTER RESISTANCE MACHINE acetaminoph 2017-10 No Route: IV, Memoria en (ANES) 2-24 Drug form: l 10 mg 19:12: INJ, Start date: 09/24/18 13:12:00 WELDER SETTER RESISTANCE MACHINE, Stop date: 09/24/18 14:12:00 WELDER SETTER RESISTANCE MACHINE acetaminoph 2017-10 No Route: IV, Memoria en (ANES) 2-24 Drug form: l 10 mg 19:12: INJ, Start Sterling n date: 09/24/18 13:12:00 WELDER SETTER RESISTANCE MACHINE, Stop date: 09/24/18 14:12:00 WELDER SETTER RESISTANCE MACHINE acetaminoph 2017-10 No Route: IV, Memoria en (ANES) 2-24 Drug form: l 10 mg 19:12: INJ, Start Sterling n date: 09/24/18 13:12:00 WELDER SETTER RESISTANCE MACHINE, Stop date: 09/24/18 14:12:00 WELDER SETTER RESISTANCE MACHINE fentaNYL 2017-10 No Route: IV, Mem oria (ANES) 2-24 Drug form: l 19:04: INJ, ONCE, Leo 00 Stop date: 09/24/18 13:04:00 WELDER SETTER RESISTANCE MACHINE rocuronium 2017-10 No Route: IV, M emoria (ANES) 2-24 Drug form: l 19:04: INJ, ONCE, Leo 00 Stop date: 09/24/18 13:04:00 WELDER SETTER RESISTANCE MACHINE propofol 2017-10 No Route: IV, Mem oria (ANES) 2-24 Drug form: l 19:04: INJ, ONCE, [place] Stop date: 09/24/18 13:04:00 WELDER SETTER RESISTANCE MACHINE lidocaine 2017-10 No Route: IV, Me moria (ANES) 2-24 Drug form: l 19:04: INJ, ONCE, Leo 00 Stop date: 09/24/18 13:04:00 WELDER SETTER RESISTANCE MACHINE fentaNYL 2017-10 No Route: IV, Mem oria (ANES) 2-24 Drug form: l 19:04: INJ, ONCE, Leo 00 Stop date: 09/24/18 13:04:00 WELDER SETTER RESISTANCE MACHINE rocuronium 2017-10 No Route: IV, M emoria (ANES) 2-24 Drug form: l 19:04: INJ, ONCE, [place] 00 Stop date: 09/24/18 13:04:00 WELDER SETTER RESISTANCE MACHINE propofol 2018 No Route: IV, Mem oria (ANES) 2-24 Drug form: l 19:04: INJ, ONCE, Leo 00 Stop date: 09/24/18 13:04:00 WELDER SETTER RESISTANCE MACHINE lidocaine 2017-10 No Route: IV, Me moria (ANES) 2-24 Drug form: l 19:04: INJ, ONCE, [place] Stop date: 09/24/18 13:04:00 WELDER SETTER RESISTANCE MACHINE fentaNYL 2017-10 No Route: IV, Mem oria (ANES) 2-24 Drug form: l 19:04: INJ, ONCE, [place] 00 Stop date: 09/24/18 13:04:00 WELDER SETTER RESISTANCE MACHINE rocuronium 2017-10 No Route: IV, M emoria (ANES) 2-24 Drug form: l 19:04: INJ, ONCE, Stop date: 09/24/18 13:04:00 WELDER SETTER RESISTANCE MACHINE propofol 2017-10 No Route: IV, Mem oria (ANES) 2- Drug form: l 19:04: INJ, ONCE, Stop date: 09/24/18 13:04:00 WELDER SETTER RESISTANCE MACHINE lidocaine 2017-10 No Route: IV, Me moria (ANES) 2-24 Drug form: l 19:04: INJ, ONCE, Stop date: 09/24/18 13:04:00 WELDER SETTER RESISTANCE MACHINE ceFAZolin 2017-10 No Route: IV, Me moria (ANES) 2-24 Drug form: l 18:48: INJ, ONCE, Stop date: 09/24/18 12:48:00 WELDER SETTER RESISTANCE MACHINE ceFAZolin 2017-10 No Route: IV, Me moria (ANES) 2- Drug form: l 18:48: INJ, ONCE, Stop date: 09/24/18 12:48:00 WELDER SETTER RESISTANCE MACHINE ceFAZolin 2017-10 No Route: IV, Me moria (ANES) 2- Drug form: l 18:48: INJ, ONCE, Stop date: 09/24/18 12:48:00 WELDER SETTER RESISTANCE MACHINE vancomycin 2017-10 No Route: IV, M emoria (ANES) 1000 - Drug form: l mg 18:23: INJ, date: 09/24/18 12:23:00 WELDER SETTER RESISTANCE MACHINE, Stop date: 09/24/18 13:23:00 WELDER SETTER RESISTANCE MACHINE vancomycin 2017-10 No Route: IV, M emoria (ANES) 1000 - Drug form: l mg 18:23: INJ, Start date: 09/24/18 12:23:00 WELDER SETTER RESISTANCE MACHINE, Stop date: 09/24/18 13:23:00 WELDER SETTER RESISTANCE MACHINE vancomycin 2017-10 No Route: IV, M emoria (ANES) 1000 -24 Drug form: l mg 18:23: INJ, Start date: 09/24/18 12:23:00 WELDER SETTER RESISTANCE MACHINE, Stop date: 09/24/18 13:23:00 WELDER SETTER RESISTANCE MACHINE phenylephri 2017-10 No Route: IV, Memoria ne (ANES) 2 Drug form: l 100 17:52: INJ, Start Leo microgram 00 date: 09/24/18 11:52:00 WELDER SETTER RESISTANCE MACHINE, Stop date: 09/24/18 12:52:00 WELDER SETTER RESISTANCE MACHINE phenylephri 2017-10 No Route: IV, Memoria ne (ANES) 2-24 Drug form: l 100 17:52: INJ, Start [place] microgram 00 date: 09/24/18 11:52:00 WELDER SETTER RESISTANCE MACHINE, Stop date: 09/24/18 12:52:00 WELDER SETTER RESISTANCE MACHINE phenylephri 2017-10 No Route: IV, Memoria ne (ANES) 2-24 Drug form: l 100 17:52: INJ, Start [place] microgram date: 09/24/18 11:52:00 WELDER SETTER RESISTANCE MACHINE, Stop date: 09/24/18 12:52:00 WELDER SETTER RESISTANCE MACHINE Lactated 2017-10 No Route: IV, Mem oria Ringers 2-24 Total l Injection 17:40: Volume: Mervat nn IV (ANES) 00 1,000, 1000 mL Start date: 09/24/18 11:40:00 WELDER SETTER RESISTANCE MACHINE, Stop date: 09/24/18 12:40:00 WELDER SETTER RESISTANCE MACHINE Lactated 2017-10 No Route: IV, Mem oria Ringers 2-24 Total l Injection 17:40: Volume: Mervat nn IV (ANES) 00 1,000, 1000 mL Start date: 09/24/18 11:40:00 WELDER SETTER RESISTANCE MACHINE, Stop date: 09/24/18 12:40:00 WELDER SETTER RESISTANCE MACHINE Lactated 2017-10 No Route: IV, Mem oria Ringers 2-24 Total l Injection 17:40: Volume: Mervat nn IV (ANES) 00 1,000, 1000 mL Start date: 09/24/18 11:40:00 WELDER SETTER RESISTANCE MACHINE, Stop date: 09/24/18 12:40:00 WELDER SETTER RESISTANCE MACHINE normal 2017-10 No 1,000 mL, Memori a saline 0.9% 2-24 Rate: 75 l IV 1,000 mL 17:09: ml/hr, Herm valentin 00 Infuse over: 13.3 hr, Route: IV, Dosing Weight 136 kg, Total Volume: 1,000, Start date: 09/24/18 11:09:00 WELDER SETTER RESISTANCE MACHINE, Duration: 30 day, Stop date: 10/24/18 11:08:00 WELDER SETTER RESISTANCE MACHINE, 2.56, m2 normal 2017-10 No 1,000 mL, Memori a saline 0.9% 2-24 Rate: 75 l IV 1,000 mL 17:09: ml/hr, Herm valentin 00 Infuse over: 13.3 hr, Route: IV, Dosing Weight 136 kg, Total Volume: 1,000, Start date: 09/24/18 11:09:00 WELDER SETTER RESISTANCE MACHINE, Duration: 30 day, Stop date: 10/24/18 11:08:00 WELDER SETTER RESISTANCE MACHINE, 2.56, m2 normal 2017-10 No 1,000 mL, Memori a saline 0.9% 2-24 Rate: 75 l IV 1,000 mL 17:09: ml/hr, Herm valentin 00 Infuse over: 13.3 hr, Route: IV, Dosing Weight 136 kg, Total Volume: 1,000, Start date: 09/24/18 11:09:00 WELDER SETTER RESISTANCE MACHINE, Duration: 30 day, Stop date: 10/24/18 11:08:00 WELDER SETTER RESISTANCE MACHINE, 2.56, m2 NS (Bolus) 2017-10 No 500 mL, Kaushal munira IV 2-24 500 ml/hr, l 11:42: Infuse Leo 00 Over: 1 hr, Route: IV, 500, Drug form: INJ, ONCE, Priority: STAT, Dosing Weight 136 kg, Start date: 09/24/18 5:42:00 WELDER SETTER RESISTANCE MACHINE, Stop date: 09/24/18 5:42:00 WELDER SETTER RESISTANCE MACHINE NS (Bolus) 2017-10 No 500 mL, Kaushal munira IV 2-24 500 ml/hr, l 11:42: Infuse Leo 00 Over: 1 hr, Route: IV, 500, Drug form: INJ, ONCE, Priority: STAT, Dosing Weight 136 kg, Start date: 09/24/18 5:42:00 WELDER SETTER RESISTANCE MACHINE, Stop date: 09/24/18 5:42:00 WELDER SETTER RESISTANCE MACHINE NS (Bolus) 2017-10 No 500 mL, Kaushal munira IV 2-24 500 ml/hr, l 11:42: Infuse Leo 00 Over: 1 hr, Route: IV, 500, Drug form: INJ, ONCE, Priority: STAT, Dosing Weight 136 kg, Start date: 09/24/18 5:42:00 [employer]IST[employer] MACHINE, Stop date: 09/24/18 5:42:00 [employer]IST[employer] MACHINE AMIODarone 2017-10 No 2 mg/ml. Me moria 900 mg in 2-23 Use Glass l D5W 500 ml 17:45: Bottle or He rmann IV 900 mg + 00 Non PVC Dextrose 5% Bag "Use in Water IV 0.22 482 mL micron in-line filter" MEDICATION WASTE Product Size: 900 mg Product Wasted: ___ mg AMIODarone 2017-10 No 2 mg/ml. Me moria 900 mg in 11-24 Use Glass l D5W 500 ml 17:45: Bottle or He rmann IV 900 mg + 00 Non PVC Dextrose 5% Bag "Use in Water IV 0.22 482 mL micron in-line filter" MEDICATION WASTE Product Size: 900 mg Product Wasted: ___ mg AMIODarone 2017-10 No 2 mg/ml. Me moria 900 mg in 11-24 Use Glass l D5W 500 ml 17:45: Bottle or He rmann IV 900 mg + 00 Non PVC Dextrose 5% Bag "Use in Water IV 0.22 482 mL micron in-line filter" MEDICATION WASTE Product Size: 900 mg Product Wasted: ___ mg Amiodarone 2017-10 No 2 mg/ml. Fl moria 11-24 "Recommend l 17:44: ation: Use Leo 00 an in-line filter during administra tion for continuous infusions to reduce the incidence of phlebitis" (Same as Codarone) MEDICATION WASTE Product Size: 150 mg Product Wasted: ___ mg Amiodarone 2017-10 No 2 mg/ml. Fl moria 11-24 "Recommend l 17:44: ation: Use Leo 00 an in-line filter during administra tion for continuous infusions to reduce the incidence of phlebitis" (Same as Codarone) MEDICATION WASTE Product Size: 150 mg Product Wasted: ___ mg Amiodarone 2017-10 No 2 mg/ml. Fl moria 11-24 "Recommend l 17:44: ation: Use Arverne 00 an in-line filter during administra tion for continuous infusions to reduce the incidence of phlebitis" (Same as Codarone) MEDICATION WASTE Product Size: 150 mg Product Wasted: ___ mg lactobacill 2017-10 No 1 cap, Kaushal munira us 11-24 Route: PO, l acidophilus 15:00: Dosing Herm valentin 00 Weight 136, kg, Daily, Start date: 09/23/18 9:00:00 [employer]ACH[employer], Duration: 30 day, Stop date: 10/22/18 9:00:00 [employer] MACHINE Cymbalta 2017-10 No Notes: Memoria 2-23 (Same as: l 15:00: Cymbalta) Arverne 00 (Do Not Crush) Vitamin B12 2017-10 No Notes: Kaushal munira 2-23 (Same As: l 15:00: Vitamin Leo 00 B-12) Alprazolam 2017-10 No Notes: Memor ia 1 MG Oral 2-23 With food l Tablet 15:00: or milk Leo 00 (Same as: Xanax) POLYETHYLEN 2017-10 No Notes: Kaushal munira E GLYCOL 2-23 Dissolve l 3350 15:00: in 8 oz of Arverne 00 water or juice. 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 (Same as: Miralax) lactobacill 2017-10 No Notes: Kaushal munira us 2-23 Same as l rhamnosus 15:00: Nayla rmann GG 00 Spiriva 2017-10 No Notes: Memoria 2-23 (Same As: l 14:00: Spiriva) [place] Spiriva 2017-10 No Notes: Memoria 2-23 (Same As: l 14:00: Spiriva) Leo Spiriva 2017-10 No Notes: Memoria 2-23 (Same As: l 14:00: Spiriva) Leo pantoprazol 2017-10 No Notes: Kaushal munira e 2-23 Tablet l 13:30: should not Leo 00 be chewed or crushed. (Same as: Protonix) pantoprazol 2017-10 No Notes: Kaushal munira e 2-23 Tablet l 13:30: should not [place] 00 be chewed or crushed. (Same as: Protonix) pantoprazol 2017-10 No Notes: Kaushal munira e 2-23 Tablet l 13:30: should not Leo 00 be chewed or crushed. (Same as: Protonix) Enoxaparin 2017-10 No Notes: Memor ia 2-23 (Same as: l 07:00: Lovenox) [place] Enoxaparin 2017-10 No Notes: Memor ia 2-23 (Same as: l 07:00: Lovenox) Leo Enoxaparin 2017-10 No Notes: Memor ia 2-23 (Same as: l 07:00: Lovenox) montelukast 2017-10 No Notes: Kaushal munira 2-23 (Same l 03:00: as:Singula [place] 00 ir) atorvastati 2017-10 No Notes: Kaushal munira n 2-23 (Same as: l 03:00: Lipitor) sennosides, 2017-10 No Notes: Kaushal munira ASSISTED 2-23 (Same as: l 03:00: Senokot) montelukast 2017-10 No Notes: Kaushal munira 2-23 (Same l 03:00: as:Singula Leo 00 ir) atorvastati 2017-10 No Notes: Kaushal munira n 2-23 (Same as: l 03:00: Lipitor) sennosides, 2017-10 No Notes: Kaushal munira ASSISTED 2-23 (Same as: l 03:00: Senokot) montelukast 2017-10 No Notes: Kaushal munira 2-23 (Same l 03:00: as:Singula Leo 00 ir) atorvastati 2017-10 No Notes: Kaushal munira n 2-23 (Same as: l 03:00: Lipitor) sennosides, 2017-10 No Notes: Kaushal munira ASSISTED 2-23 (Same as: l 03:00: Senokot) Ceftriaxone [...] Memoria 2-22 (Same as: l 23:00: Colace) [place] 00 (Do Not Crush) Coreg 2017-10 No Notes: Memoria 2-22 Give with l 23:00: food. Leo 00 (Same As: Coreg) Docusate 2017-10 No Notes: Memoria 2-22 (Same as: l 23:00: Colace) Leo 00 (Do Not Crush) Coreg 2017-10 No Notes: Memoria 2-22 Give with l 23:00: food. [place] 00 (Same As: Coreg) Docusate 2017-10 No Notes: Memoria 2-22 (Same as: l 23:00: Colace) Leo 00 (Do Not Crush) Rocephin 2017-10 No 1 gm, Memoria 2 Route: l 21:18: IVPB, Drug [place] 00 form: PDR/INJ, ONCE, Dosing Weight 136, kg, Priority: STAT, Start date: 09/22/18 15:18:00 WELDER SETTER RESISTANCE MACHINE, Stop date: 09/22/18 15:18:00 WELDER SETTER RESISTANCE MACHINE, ABX Indication : Urinary Tract Infection Rocephin 2017-10 No 1 gm, Memoria 11-23 Route: l 21:18: IVPB, Drug [place] 00 form: PDR/INJ, ONCE, Dosing Weight 136, kg, Priority: STAT, Start date: 09/22/18 15:18:00 WELDER SETTER RESISTANCE MACHINE, Stop date: 09/22/18 15:18:00 WELDER SETTER RESISTANCE MACHINE, ABX Indication : Urinary Tract Infection Rocephin 2017-10 No 1 gm, Memoria 11-23 Route: l 21:18: IVPB, Drug [place] 00 form: PDR/INJ, ONCE, Dosing Weight 136, kg, Priority: STAT, Start date: 09/22/18 15:18:00 WELDER SETTER RESISTANCE MACHINE, Stop date: 09/22/18 15:18:00 WELDER SETTER RESISTANCE MACHINE, ABX Indication : Urinary Tract Infection gabapentin 2017-10 No Notes: Memor ia 2-22 (Same as: l 20:00: Neurontin) [place] 00 Acetaminoph 2017-10 No Notes: Max Memoria en 2-22 acetaminop l 20:00: hen 4000 [place] 00 mg/day (4 gm/day). (Same as: Tylenol Extra Strength) celecoxib 2017-10 No Notes: Memori a 2-22 NSAID. l 20:00: Please Leo 00 check indication . Not for seizure. (Same As: CeleBREX) gabapentin 2017-10 No Notes: Memor ia 2-22 (Same as: l 20:00: Neurontin) [place] Acetaminoph 2017-10 No Notes: Max Memoria en 2-22 acetaminop l 20:00: hen 4000 Leo 00 mg/day (4 gm/day). (Same as: Tylenol Extra Strength) celecoxib 2017-10 No Notes: Memori a 2-22 NSAID. l 20:00: Please [place] 00 check indication . Not for seizure. (Same As: CeleBREX) gabapentin 2017-10 No Notes: Memor ia 2-22 (Same as: l 20:00: Neurontin) [place] Acetaminoph 2017-10 No Notes: Max Memoria en 2-22 acetaminop l 20:00: hen 4000 Leo 00 mg/day (4 gm/day). (Same as: Tylenol Extra Strength) celecoxib 2017-10 No Notes: Memori a 2-22 NSAID. l 20:00: Please Leo 00 check indication . Not for seizure. (Same As: CeleBREX) Albuterol 2017-10 No Notes: Memori a 0.833 MG/ML 2-22 (Same as: 19:47: Duoneb) [place] Ipratropium 00 Graham 0.167 MG/ML Inhalant Solution [DuoNeb] Oxazepam 30 2017-10 No 30 mg, 1 Me moria MG Oral 2-22 cap, l Capsule 19:47: Route: PO, Herm valentin Drug form: CAP, Bedtime, Dosing Weight 136, kg, Priority: NOW, Start date: 09/22/18 13:47:00 WELDER SETTER RESISTANCE MACHINE, Duration: 30 day, Stop date: 10/21/18 21:00:00 WELDER SETTER RESISTANCE MACHINE Albuterol 2017-10 No Notes: Memori a 0.833 MG/ML 2-22 (Same as: 19:47: Duoneb) Leo Ipratropium 00 Graham 0.167 MG/ML Inhalant Solution [DuoNeb] Oxazepam 2017-10 No 30 mg, 1 Me moria MG Oral 2-22 cap, l Capsule 19:47: Route: PO, Herm valentin 00 Drug form: CAP, Bedtime, Dosing Weight 136, kg, Priority: NOW, Start date: 09/22/18 13:47:00 WELDER SETTER RESISTANCE MACHINE, Duration: 30 day, Stop date: 10/21/18 21:00:00 WELDER SETTER RESISTANCE MACHINE Albuterol 2017-10 No Notes: Memori a 0.833 MG/ML -22 (Same as: 19:47: Duoneb) Ipratropium 00 Graham 0.167 MG/ML Inhalant Solution [DuoNeb] Oxazepam 2017-10 No 30 mg, 1 Me moria MG Oral 2-22 cap, l Capsule 19:47: Route: PO, Herm valentin 00 Drug form: CAP, Bedtime, Dosing Weight 136, kg, Priority: NOW, Start date: 09/22/18 13:47:00 WELDER SETTER RESISTANCE MACHINE, Duration: 30 day, Stop date: 10/21/18 21:00:00 WELDER SETTER RESISTANCE MACHINE Vitamin B12 2017-10 No 1,000 Memor ia [...] 0.9% 2-22 (Same as: l 19:37: BD [place] 00 Posiflush) Lactated 2017-10 No 1,000 mL, Kaushal munira Ringers IV 2-22 Rate: 100 l 1,000 mL 19:37: ml/hr, Leo 00 Infuse over: 10 hr, Route: IV, Dosing Weight 136 kg, Total Volume: 1,000, Start date: 09/22/18 13:37:00 WELDER SETTER RESISTANCE MACHINE, Duration: 12 hr, Stop date: 09/23/18 1:36:00 WELDER SETTER RESISTANCE MACHINE, 2.56, m2 Saline 2017-10 No Notes: Memoria Flush 0.9% 2-22 (Same as: l 19:37: BD Leo 00 Posiflush) Lactated 2017-10 No 1,000 mL, Kaushal munira Ringers IV 2-22 Rate: 100 l 1,000 mL 19:37: ml/hr, Leo 00 Infuse over: 10 hr, Route: IV, Dosing Weight 136 kg, Total Volume: 1,000, Start date: 09/22/18 13:37:00 WELDER SETTER RESISTANCE MACHINE, Duration: 12 hr, Stop date: 09/23/18 1:36:00 WELDER SETTER RESISTANCE MACHINE, 2.56, m2 Saline 2017-10 No Notes: Memoria Flush 0.9% 2-22 (Same as: l 19:37: BD Leo 00 Posiflush) Lactated 2017-10 No 1,000 mL, Kaushal munira Ringers IV 2-22 Rate: 100 l 1,000 mL 19:37: ml/hr, [place] 00 Infuse over: 10 hr, Route: IV, Dosing Weight 136 kg, Total Volume: 1,000, Start date: 09/22/18 13:37:00 WELDER SETTER RESISTANCE MACHINE, Duration: 12 hr, Stop date: 09/23/18 1:36:00 WELDER SETTER RESISTANCE MACHINE, 2.56, m2 Furosemide 2017-10 No 40 mg [...] tab, PO, l tablet 19:28: Daily, # [place] 00 30 tab, 0 Refill(s) omeprazole 2017-10 Yes 20 mg = 1 Me moria 20 mg oral 2-22 tab, PO, l enteric 19:28: Daily, # Sterling n coated 00 30 tab, 3 tablet Refill(s) Acidophilus 2017-10 No Daily, 0 Me moria 2-22 Refill(s) l 19:28: [place] carvedilol 2017-10 No 25 mg = 1 [...] munira 2-22 Daily, PRN l 19:28: Constipati [place] 00 on, 0 Refill(s) Furosemide 2017-10 No 40 mg = 1 Me moria 40 MG Oral 2-22 tab, PO, l Tablet 19:28: BID, # 30 Sterling n 00 tab, 0 Refill(s) atorvastati 2017-10 Yes 40 mg = 1 M emoria n 40 mg 2-22 tab, PO, l oral tablet 19:28: Bedtime, # [place] 00 30 tab, 0 Refill(s) clopidogrel 2017-10 [...] Me moria 2-22 Refill(s) l 19:28: Leo 00 carvedilol 2017-10 No 25 mg = [...] PRN l 19:28: Constipati on, 0 Refill(s) Furosemide 2017-10 No 40 [...] 0 Me moria 2-22 Refill(s) l 19:28: carvedilol 2017-10 No 25 mg = 1 [...] ne 2-22 Same as l 19:27: Dilaudid [place] Melatonin 2017-10 No Notes: Memori a 2-22 (Same as: l 19:27: Melatonin) [place] 00 tizanidine 2017-10 No Notes: Memor ia 2-22 (Same As: l 19:27: Zanaflex) [place] 00 Ondansetron 2017-10 No Notes: Kaushal munira 2-22 (Same as: l 19:27: Zofran) Leo 00 MEDICATION WASTE Product Size: 4 mg Product Wasted: _0__ mg Tramadol 2017-10 No Notes: Not Mem oria 2-22 to exceed l 19:27: 400mg/day. Leo 00 (Same As: Ultram) Hydromorpho 2017-10 No Notes: Kaushal munira ne 2-22 Same as l 19:27: Dilaudid [place] Melatonin 2017-10 No Notes: Memori a 2-22 (Same as: l 19:27: Melatonin) tizanidine 2017-10 No Notes: Memor ia 2-22 (Same As: l 19:27: Zanaflex) Ondansetron 2017-10 No Notes: Kaushal munira 2-22 (Same as: l 19:27: Zofran) Leo 00 MEDICATION WASTE Product Size: 4 mg Product Wasted: _0__ mg Tramadol 2017-10 No Notes: Not Mem oria 2-22 to exceed l 19:27: 400mg/day. [place] 00 (Same As: Ultram) Hydromorpho 2017-10 No Notes: Kaushal munira ne 2-22 Same as l 19:27: Dilaudid [place] Melatonin 2017-10 No Notes: Memori a 2-22 (Same as: l 19:27: Melatonin) Leo tizanidine 2017-10 No Notes: Memor ia 2-22 (Same As: l 19:27: Zanaflex) Leo 00 Ondansetron 2017-10 No Notes: Kaushal munira 2-22 (Same as: l 19:27: Zofran) [place] 00 MEDICATION WASTE Product Size: 4 mg Product Wasted: _0__ mg Oxycodone 2018-1 No 5 mg, 1 Memor ia Hydrochlori 2-22 tab, l de 5 MG 18:00: Route: PO, Herm valentin Oral Tablet 00 Q6H, Dosing Weight 136, kg, Start date: 09/22/18 12:00:00 WELDER SETTER RESISTANCE MACHINE, Duration: 30 day, Stop date: 10/22/18 6:00:00 WELDER SETTER RESISTANCE MACHINE Oxycodone 2018-1 No 5 mg, 1 Memor ia Hydrochlori 2-22 tab, l de 5 MG 18:00: Route: PO, Herm valentin Oral Tablet 00 Q6H, Dosing Weight 136, kg, Start date: 09/22/18 12:00:00 WELDER SETTER RESISTANCE MACHINE, Duration: 30 day, Stop date: 10/22/18 6:00:00 WELDER SETTER RESISTANCE MACHINE Oxycodone 2018-1 No 5 mg, 1 Memor ia Hydrochlori 2-22 tab, l de 5 MG 18:00: Route: PO, Herm valentin Oral Tablet 00 Q6H, Dosing Weight 136, kg, Start date: 09/22/18 12:00:00 WELDER SETTER RESISTANCE MACHINE, Duration: 30 day, Stop date: 10/22/18 6:00:00 WELDER SETTER RESISTANCE MACHINE Hydromorpho 2018-1 No 0.5 mg, Mem oria ne 2-22 Route: l 17:53: IVP, ONCE, Dosing Weight 136, kg, Priority: STAT, Start date: 09/22/18 11:53:00 WELDER SETTER RESISTANCE MACHINE, Stop date: 09/22/18 11:53:00 WELDER SETTER RESISTANCE MACHINE Hydromorpho 2018-1 No 0.5 mg, Mem oria ne 2- Route: l 17:53: IVP, ONCE, Dosing Weight 136, kg, Priority: STAT, Start date: 09/22/18 11:53:00 WELDER SETTER RESISTANCE MACHINE, Stop date: 09/22/18 11:53:00 WELDER SETTER RESISTANCE MACHINE Hydromorpho 2017-1 No 0.5 mg, Mem oria ne 2-22 Route: l 17:53: IVP, ONCE, Dosing Weight 136, kg, Priority: STAT, Start date: 09/22/18 11:53:00 WELDER SETTER RESISTANCE MACHINE, Stop date: 09/22/18 11:53:00 WELDER SETTER RESISTANCE MACHINE Calcium 2018- No 1,000 mL, Memor ia Chloride 2-22 Infuse l 0.0014 16:51: Over: 1 [place] MEQ/ML / 00 hr, Route: Potassium IV, ONCE, Chloride Priority: 0.004 STAT, MEQ/ML / Dosing Sodium Weight 136 Chloride kg, Start 0.103 date: MEQ/ML / 09/22/18 Sodium 10:51:00 Lactate WELDER SETTER RESISTANCE MACHINE, Stop 0.028 date: MEQ/ML 09/22/18 Injectable 10:51:00 Solution WELDER SETTER RESISTANCE MACHINE Calcium 2017-10 No 1,000 mL, Memor ia Chloride 2-22 Infuse l 0.0014 16:51: Over: 1 [place] MEQ/ML / 00 hr, Route: Potassium IV, ONCE, Chloride Priority: 0.004 STAT, MEQ/ML / Dosing Sodium Weight 136 Chloride kg, Start 0.103 date: MEQ/ML / 09/22/18 Sodium 10:51:00 Lactate WELDER SETTER RESISTANCE MACHINE, Stop 0.028 date: MEQ/ML 09/22/18 Injectable 10:51:00 Solution WELDER SETTER RESISTANCE MACHINE Calcium 2017-10 No 1,000 mL, Memor ia Chloride 2-22 Infuse l 0.0014 16:51: Over: 1 [place] MEQ/ML / 00 hr, Route: Potassium IV, ONCE, Chloride Priority: 0.004 STAT, MEQ/ML / Dosing Sodium Weight 136 Chloride kg, Start 0.103 date: MEQ/ML / 09/22/18 Sodium 10:51:00 Lactate WELDER SETTER RESISTANCE MACHINE, Stop 0.028 date: MEQ/ML 09/22/18 Injectable 10:51:00 Solution WELDER SETTER RESISTANCE MACHINE Oxycodone 2017-10 No Notes: Memori a Hydrochlori [...] PO, l de 5 MG 14:22: ONCE, [place] Oral Tablet 00 Dosing Weight 136, kg, Start date: 09/22/18 8:22:00 WELDER SETTER RESISTANCE MACHINE, Stop date: 09/22/18 8:22:00 WELDER SETTER RESISTANCE MACHINE Oxycodone 2017-10 No 5 mg, Memoria Hydrochlori 2-22 Route: PO, l de 5 MG 14:22: ONCE, [place] Oral Tablet 00 Dosing Weight 136, kg, Start date: 09/22/18 8:22:00 WELDER SETTER RESISTANCE MACHINE, Stop date: 09/22/18 8:22:00 WELDER SETTER RESISTANCE MACHINE Oxycodone 2017- No 5 mg, Memoria Hydrochlori 2-22 Route: PO, l de 5 MG 14:22: ONCE, [place] Oral Tablet 00 Dosing Weight 136, kg, Start date: 09/22/18 8:22:00 WELDER SETTER RESISTANCE MACHINE, Stop date: 09/22/18 8:22:00 WELDER SETTER RESISTANCE MACHINE Coreg 2017- No 25 mg, Memoria 2-22 Route: PO, l 14:16: ONCE, Leo Dosing Weight 136, kg, Start date: 09/22/18 8:16:00 WELDER SETTER RESISTANCE MACHINE, Stop date: 09/22/18 8:16:00 WELDER SETTER RESISTANCE MACHINE Coreg 2017- No 25 mg, Memoria 2-22 Route: PO, l 14:16: ONCE, Leo Dosing Weight 136, kg, Start date: 09/22/18 8:16:00 WELDER SETTER RESISTANCE MACHINE, Stop date: 09/22/18 8:16:00 WELDER SETTER RESISTANCE MACHINE Coreg 2017- No 25 mg, Memoria 2-22 Route: PO, l 14:16: ONCE, [place] Dosing Weight 136, kg, Start date: 09/22/18 8:16:00 WELDER SETTER RESISTANCE MACHINE, Stop date: 09/22/18 8:16:00 WELDER SETTER RESISTANCE MACHINE Dilaudid 2017- No 1 mg, Memoria 2-22 Route: l 10:55: IVP, ONCE, Leo Dosing Weight 136, kg, Priority: STAT, Start date: 09/22/18 4:55:00 WELDER SETTER RESISTANCE MACHINE, Stop date: 09/22/18 4:55:00 WELDER SETTER RESISTANCE MACHINE Dilaudid 2017- No 1 mg, Memoria 2-22 Route: l 10:55: IVP, ONCE, [place] Dosing Weight 136, kg, Priority: STAT, Start date: 09/22/18 4:55:00 WELDER SETTER RESISTANCE MACHINE, Stop date: 09/22/18 4:55:00 WELDER SETTER RESISTANCE MACHINE Dilaudid 2017- No 1 mg, Memoria 2-22 Route: l 10:55: IVP, ONCE, Leo Dosing Weight 136, kg, Priority: STAT, Start date: 09/22/18 4:55:00 WELDER SETTER RESISTANCE MACHINE, Stop date: 09/22/18 4:55:00 WELDER SETTER RESISTANCE MACHINE Dilaudid 2017- No 1 mg, Memoria 2-22 Route: l 08:13: IVP, ONCE, Dosing Weight 136, kg, Priority: STAT, Start date: 09/22/18 2:13:00 WELDER SETTER RESISTANCE MACHINE, Stop date: 09/22/18 2:13:00 WELDER SETTER RESISTANCE MACHINE Dilaudid 2017- No 1 mg, Memoria 2-22 Route: l 08:13: IVP, ONCE, Dosing Weight 136, kg, Priority: STAT, Start date: 09/22/18 2:13:00 WELDER SETTER RESISTANCE MACHINE, Stop date: 09/22/18 2:13:00 WELDER SETTER RESISTANCE MACHINE Dilaudid 2017- No 1 mg, Memoria 2-22 Route: l 08:13: IVP, ONCE, Dosing Weight 136, kg, Priority: STAT, Start date: 09/22/18 2:13:00 WELDER SETTER RESISTANCE MACHINE, Stop date: 09/22/18 2:13:00 WELDER SETTER RESISTANCE MACHINE Fentanyl 2017-1 No 25 Memoria 2-22 microgram, l 07:25: Route: Leo IVP, ONCE, Dosing Weight 136, kg, Priority: STAT, Start date: 09/22/18 1:25:00 WELDER SETTER RESISTANCE MACHINE, Stop date: 09/22/18 1:25:00 WELDER SETTER RESISTANCE MACHINE Fentanyl 2018-1 No 25 Memoria 2-22 microgram, l 07:25: Route: [place] 00 IVP, ONCE, Dosing Weight 136, kg, Priority: STAT, Start date: 09/22/18 1:25:00 WELDER SETTER RESISTANCE MACHINE, Stop date: 09/22/18 1:25:00 WELDER SETTER RESISTANCE MACHINE Fentanyl 2017-1 No 25 Memoria 2-22 microgram, l 07:25: Route: Leo 00 IVP, ONCE, Dosing Weight 136, kg, Priority: STAT, Start date: 09/22/18 1:25:00 WELDER SETTER RESISTANCE MACHINE, Stop date: 09/22/18 1:25:00 WELDER SETTER RESISTANCE MACHINE DULoxetine 2016- Yes 120mg QD Take 120 [facility] I [...] Medic al 44 times Center daily. budesonide- 2017 Yes 2{puff} Q.5D Inhale [address] [facility] [address] [...] mouth Medical capsule 44 daily. Center gabapentin 20170 Yes 600mg Q.25D Take 600 C HI [...] 18:00:00 114 mm[Hg] Univer sity of pressure [facility] Diastolic blood 2021-11-11 18:00:00 65 mm[Hg] Unive rsity of pressure [facility] Heart rate 2021-11-11 18:00:00 80 /min [facility] Respiratory rate 2021-11-11 18:00:00 18 /min [facility] Oxygen saturation in 2021-11-11 18:00:00 90 /min [facility] Arterial blood by [facility] Pulse oximetry Branch Body temperature 2021-11-11 17:00:00 36.67 Louise [facility] Body weight 2021-11-10 09:12:00 143.473 kg [facility] BMI 2021-11-10 09:12:00 52.64 kg/m2 [facility] Body height 2021-11-08 14:00:00 165.1 cm [facility] Temperature Oral (F) 2018-09-27 17:38:00 98.5 F [facility] Systolic (mm Hg) 2018-09-27 17:38:00 Kaushal rial [place] Diastolic (mm Hg) 2018-09-27 17:38:00 Mem orial [place] Heart Rate 2018-09-27 17:38:00 [facility] Leo Respitory Rate 2018-09-27 17:38:00 Memori al [place] Heart Rate 2018-09-27 17:13:00 [facility] Leo Systolic (mm Hg) 2018-09-27 14:52:00 Kaushal rial Leo Diastolic (mm Hg) 2018-09-27 14:52:00 Mem orial [place] Heart Rate 2018-09-27 14:52:00 [facility] Elo Temperature Oral (F) 2018-09-27 14:52:00 98.2 F [facility] [place] Respitory Rate 2018-09-27 14:52:00 Memori al [place] Temperature Oral (F) 2018-09-27 11:32:00 98.2 F [facility] [place] Systolic (mm Hg) 2018-09-27 11:32:00 Kaushal rial [place] Diastolic (mm Hg) 2018-09-27 11:32:00 Mem orial [place] Respitory Rate 2018-09-27 11:32:00 Memori al Leo Weight 2018-09-22 06:43:00 [facility] [place] BMI Calculated 2018-09-22 06:43:00 Memori al [place] Height 2018-09-22 06:43:00 167.64 cm [facility] [place] Procedures Procedure Date / Time Performing Clinician Source Performed EXTERNAL PROVIDER RECORDS 2022-05-26 05:01:00 Doctor Unassigned, [facility] Name [facility] EXTERNAL PROVIDER RECORDS 2021-11-24 06:01:00 Doctor Unassigned, [facility] Name [facility] COMP. METABOLIC PANEL 2021-11-11 08:10:00 Adolfo Armstrong [facility] ([id number]) Medical Branch CBC WITH DIFF 2021-11-11 08:10:00 [facility] N-TERMINAL PRO-BNP 2021-11-11 08:10:00 Patti [facility] XR CHEST 1 VW 2021-11-10 19:51:47 Jennifer Mccormick [facility] ACUTE CARE ARTERIAL BLOOD 2021-11-10 16:50:00 Aditi [facility] PHOSPHORUS 2021-11-10 12:52:00 [facility] MAGNESIUM 2021-11-10 12:52:00 [facility] COMP. METABOLIC PANEL 2021-11-10 12:52:00 Patti scott [facility] ([id number]) [facility] CBC WITH DIFF 2021-11-10 12:52:00 [facility] N-TERMINAL PRO-BNP 2021-11-10 12:52:00 Patti [facility] VITAMIN B12, LEVEL 2021-11-09 22:51:00 Patti [facility] IRON PANEL 2021-11-09 22:51:00 [facility] PROTHROMBIN TIME / INR 2021-11-09 22:51:00 Patti scott [facility] VITAMIN D, 25-OH 2021-11-09 22:51:00 Patti [facility] PROCALCITONIN 2021-11-09 22:51:00 [facility] PHOSPHORUS 2021-11-09 09:39:00 Dafne [facility] MAGNESIUM 2021-11-09 09:39:00 Dafne [facility] BASIC METABOLIC PANEL 2021-11-09 09:39:00 Dafne [facility] (NA, K, CL, CO2, GLUCOSE, Medica l Branch BUN, CREATININE, CA) N-TERMINAL PRO-BNP 2021-11-09 09:39:00 [place], Jaziel [facility] TRANSTHORACIC ECHO (TTE) 2021-11-07 14:31:00 Doug Spivey [facility] COMPLETE W/ CONTRAST [facility] PHOSPHORUS 2021-11-07 10:09:00 Doug Spivey [facility] MAGNESIUM 2021-11-07 10:09:00 Allyssa [facility] C-REACTIVE PROTEIN 2021-11-07 10:09:[address] [facility] TROPONIN I 2021-11-07 10:09:00 Krystyna JaegerHCris [facility] COMP. METABOLIC PANEL 2021-11-07 10:09:00 Janay [facility] ([id number]) [facility] LIPID PANEL ([id number])(TOTAL 2021-11-07 10:09:00 Krystyna Jaeger [facility] CHOLESTEROL, [facility] TRIGLYCERIDES, HDL) CBC WITH DIFF 2021-11-07 10:09:00 Doug Spivey [facility] N-TERMINAL PRO-BNP 2021-11-07 10:09:00 [facility] CT HEAD WO CONTRAST 2021-11-07 08:44:06 Janay Ochoa [facility] POCT GLUCOSE (AUTOMATED) 2021-11-07 03:45:00 Doug Spivey [facility] URINE DRUG (IMMUNOASSAY) 2021-11-07 02:22:00 Ochoa Gustafson [facility] - COMPREHENSIVE DRUG [facility] SCREEN URINE DRUG (LCMSMS) - 2021-11-07 02:22:00 Janay [facility] OPIATES PANEL [facility] URINE DRUG (LCMSMS) - 2021-11-07 02:22:00 Janay [facility] SYNTHETIC OPIATES PANEL [facility] HB ECG ROUTINE & RHYTHM 2021-11-06 22:47:06 Mattie Thapa [facility] STRIP Medical Branch COVID-19 (ID NOW RAPID 2021-11-06 22:38:00 Mattie Thapa [facility] TESTING) Medical Branch LAB ONLY COVID 2021-11-06 22:38:00 Mattie Thapa [facility] INTERPRETATION [facility] MISCELLANEOUS CULTURE 2021-11-06 21:15:00 Mattie Thapa [facility] URINALYSIS 2021-11-06 21:09:00 Mattie Thapa [facility] URINE CULTURE 2021-11-06 21:08:00 Mattie Thapa [facility] XR CHEST 1 VW 2021-11-06 20:59:57 Mattie Thapa [facility] BLOOD CULTURE SCREEN 2021-11-06 20:26:00 Mattie Thapa [facility] FERRITIN SERUM 2021-11-06 20:26:00 Janay [facility] THYROID STIMULATING 2021-11-06 20:26:00 Janay [facility] HORMONE [facility] COMP. METABOLIC PANEL 2021-11-06 20:26:00 Mattie Thapa [facility] ([id number]) [facility] IRON PANEL 2021-11-06 20:26:00 Doug Spivey [facility] CBC WITH DIFF 2021-11-06 20:26:00 Mattie Thapa [facility] GLYCOSYLATED HEMOGLOBIN 2021-11-06 20:26:00 Janay [facility] (A1C) [facility] LACTIC ACID WHOLE BLOOD 2021-11-06 20:25:00 Mattie Thapa [facility] EMERGENCY SERVICES 2021-11-06 06:01:00 Doctor Unassigned, [facility] AGREEMENTS AND [facility] AUTHORIZATIONS HOSPITAL ADMISSION MISC - 2021-11-06 06:01:00 Doctor Unassigned, [facility] MEDICARE PATIENTS RIGHTS [facility] IMPORTANT MESSAGE [U] XRAY FEMUR 2 VWS LEFT 2018-11-30 00:00:00 [facility] [id number] [U] XRAY KNEE 1 OR 2 VWS 2018-11-13 00:00:00 [facility] RIGHT [id number] [U] XRAY ANKLE MIN 3 VWS 2018-11-13 00:00:00 [facility] RIGHT [id number] [U] XRAY FEMUR 2 VWS LEFT 2018-11-06 00:00:00 [facility] [id number] [U] XRAY FEMUR 2 VWS LEFT 2018-10-31 00:00:00 [facility] [id number] [U] XRAY FEMUR 2 VWS LEFT 2018-10-26 00:00:00 [facility] [id number] TKR -Total prosthetic 2012-10-02 00:00:00 Sree Simmons replacement of knee joint using cement Abdominal hysterectomy 1964-10-02 00:00:00 Simona Bailey Appendectomy 1956-10-02 00:00:00 [facility] Encounters Start End Encounter Admission Attending Care Care Encounter Source Date/Time Date/Time Type Type Clinicians Facility Department ID 2022-05-26 2022-05-26 Orders Doctor DAGMAR 1.2.840.114 [id number] Univers 00:00:00 00:00:00 Only Unassigned, MINDY 350.1.13.10 ity of [place] [facility] 4.2.7.2.686 Scar as [phone] [facility] 009 Branch 2021-11-24 2021-11-24 Orders Doctor DAGMAR 1.2.840.114 [id number] Univers 00:00:00 00:00:00 Only Unassigned, MINDY 350.1.13.10 ity of [place] [facility] 4.2.7.2.686 Scar as [phone] [facility] 009 Branch 2021-11-12 2021-11-12 Transition BISHOP Roper 1.2.840.114 [id number] Univers 00:00:00 00:00:00 of Care Arnulfo DYKES 350.1.13.10 [place] [id number] [facility] 403 Branch 2021-11-06 2021-11-11 Hospital Mattie Thapa [facility] 1.2.840.11 [id number] Univers 13:33:00 14:37:00 Encounter Doug Spivey 350.1.13.10 ity of [place] 4.2.7.2.686 [facility] [id number] [facility] 080 Branch 2021-11-06 2021-11-11 Inpatient X USMAN [facility] [id number] Univers 13:33:00 14:37:00 ADITI rey [facility] 2018-12-11 2018-12-11 Appointmen [facility]ERECK [facility] Orthopedics [id number] [place] 12:00:00 12:00:00 t; FLASH HARDEN P.A. Physici JEANA, ans P.A. 2018-11-13 2018-11-13 Appointmen [facility] Orthopedics [id number] [place] 12:00:00 12:00:00 t; FLASH HARDEN P.A. Physici JEANA, ans P.A. 2018-11-06 2018-11-06 [facility] [id number] [place] 10:45:00 10:45:00 t; Reinier HARDIN M.D. ans 2018-10-05 2018-10-05 Appointmen [facility] [id number] [place] 10:45:00 10:45:00 t; FLASH HARDEN P.A. Physici JEANA, ans P.A. 2018-09-22 2018-09-27 Inpatient [place] [id number] Mem[place] 06:43:00 23:40:[address] 2018-09-22 2018-09-27 [place] [id number] Memoria 06:43:00 23:40:[address] 2018-09-22 2018-09-27 [facility] [id number] 283 00:43:00 17:40:00 Nooreen 55 Results Test Description Test Time Test Comments Results Result Comments Source N-TERMINAL PRO-BNP 2021-11-11 09:23:09 Test Item Value Reference Range Interpretation Comme nts NT-proBNP (test code = 5100 pg/mL See_Comment H [Aut omated message] The 2539298109) system which ge nerated this result tra nsmitted reference range : <=450. The reference r bharti was not used to int erpret this result as zaida l/abnormal. JEAN-PIERRE (test code = JEAN-PIERRE) Biotin has been reported to cause a negative bias, interpret results relative to patient's use of biotin. Lab Interpretation (test Abnormal code = 69630-7) [facility]. METABOLIC PANEL (48817)2021-11-11 09:14:47 Test Item Value Reference Range Interpretation Comments NA (test code = 139 mmol/L 135-145 5939042275) K (test code = 3.2 mmol/L 3.5-5.0 L 5833761028) CL (test code = 103 mmol/L 98-108 7911113478) CO2 TOTAL (test code = 31 mmol/L 23-31 0520988580) AGAP (test code = 2-16 7095820958) BUN (test code = 14 mg/dL 7-23 6152693648) GLUCOSE (test code = 141 mg/dL 70-110 H 3310689649) CREATININE (test code = 0.76 mg/dL 0.50-1.04 4001230264) TOTAL BILI (test code = 0.4 mg/dL 0.1-1.1 9736771976) CALCIUM (test code = 9.2 mg/dL 8.6-10.6 1303726165) T PROTEIN (test code = 6.3 g/dL 6.3-8.2 7418933138) ALBUMIN (test code = 3.4 g/dL 3.5-5.0 L 3489301875) ALK PHOS (test code = 141 U/L 34-122 H 1538912479) ALTv (test code = 11 U/L 5-35 1742-6) AST(SGOT) (test code = 17 U/L 13-40 4288805439) eGFR (test code = mL/min/1.73m2 9776274283) JEAN-PIERRE (test code = JEAN-PIERRE) Association of [...] tests). Lab Interpretation Abnormal (test code = 08032-5) [facility] WITH [id number] 09:07:25 Test Item Value Reference Range Interpretation Comments WBC (test code = See_Comment [Automated 0890-2) message] The sy stem which generated this [...] (test code = 61.1 fL 39.0-49.9 H 72833-9) RDW-CV (test code = 18.8 % 12.0-15.5 H 788-0) PLT (test code = See_Comment L [Automated 777-3) message] The sy stem which generated this result transmitted reference range : 166 - 358 10*3/ ?L. The reference r bahrti was not used to interpret this result as normal/abnormal . MPV (test code = 9.5 fL 9.5-12.9 85887-8) IPF % (test code = 1.2 % 1.3-7.7 L Platelet count 3321903641) measured by fluorescence method. NRBC/100 WBC (test See_Comment [Automat ed code = 1774630442) message] The system which generated this result transmitted reference range : 0.0 - 10.0 /100 WBCs. The refer ence range was not u sed to interpret th is result as normal/abnormal . NRBC x10^3 (test code <0.01 See_Comment [Auto mated = 6085816305) message] The s ystem which generated this result transmitted reference range : 10*3/?L. The reference range was not used to interpret this result as normal/abnormal . GRAN MAT (NEUT) % 71.3 % (test code = 770-8) IMM GRAN % (test code 0.30 % = 3013410261) LYMPH % (test code = 17.0 % 736-9) MONO % (test code = 7.0 % 5905-5) EOS % (test code = 4.1 % 713-8) BASO % (test code = 0.3 % 706-2) GRAN MAT x10^3(ANC) 4.50 10*3/uL 1.88-7.09 (test code = 5560827809) IMM GRAN x10^3 (test <0.03 0.00-0.06 code = 7986179748) LYMPH x10^3 (test code 1.07 10*3/uL 1.32-3.29 L = 731-0) MONO x10^3 (test code 0.44 10*3/uL 0.33-0.92 = 742-7) EOS x10^3 (test code = 0.26 10*3/uL 0.03-0.39 711-2) BASO x10^3 (test code <0.03 0.01-0.07 = 704-7) Lab Interpretation Abnormal (test code = 20720-6) [facility].2021-11-10 16:53:46 Test Item Value Reference Range Interpretation Comments PH (test code = 2) 7.35-7.45 PCO2 (test code = See_Comment H [Automate d message] 5169915660) The system [employer] generated this result transmitted ref erence range: 35 - 45 mmHg. The reference r bharti was not used to interpret this result as normal/abnor mal. PO2 (test code = See_Comment H [Automated message] 4801134780) The system [employer] generated this result transmitted ref erence range: 80 - 100 mmHg. The reference r bharti was not used to interpret this result as normal/abnor mal. HCO3 (test code = See_Comment H [Automate d message] 7168887491) The system [employer] generated this result transmitted ref erence range: 22 - 26 mEq/L. The reference r bharti was not used to interpret this result as normal/abnor mal. BE (test code = See_Comment [Automated message] 9672389221) The system [employer] generated this result transmitted ref erence range: -3.0 - 3 .0 mEq/L. The refe rence range was not u sed to interpret this result as normal/abnor mal. Lab Interpretation (test Abnormal code = 14284-3) [facility] [id number] 13:39:20 Test Item Value Reference Range Interpretation Comments NT-proBNP (test code 8330 pg/mL See_Comment H [Autom ated = 0966999042) message] The system which generated this result transmitted reference range : <=450. The reference range was not used to interpret this result as normal/abnormal . JEAN-PIERRE (test code = JEAN-PIERRE) Biotin has been reported to cause a negative bias, interpret results relative to patient's use of biotin. Lab Interpretation Abnormal (test code = 92397-3) [facility]2022-[facility]-09 13:31:42 Test Item Value Reference Range Interpretation Comments MAGNESIUM (test code = 6064374509) 1.6 mg/dL 1.7-2.4 L Lab Interpretation (test code = Abnormal 18785-6) [facility] METABOLIC PANEL (12444)2021-11-10 13:31:22 Test Item Value Reference Range Interpretation Comments NA (test code = 137 mmol/L 135-145 3115349199) K (test code = 3.8 mmol/L 3.5-5.0 5025392338) CL (test code = 104 mmol/L 98-108 0479868209) CO2 TOTAL (test code = 29 mmol/L 23-31 4852437676) AGAP (test code = 2-16 3187403508) BUN (test code = 11 mg/dL 7-23 6664460242) GLUCOSE (test code = 124 mg/dL 70-110 H 1199162768) CREATININE (test code = 0.71 mg/dL 0.50-1.04 2161377608) TOTAL BILI (test code = 0.5 mg/dL 0.1-1.2 9127610891) CALCIUM (test code = 8.8 mg/dL 8.6-10.6 3927378874) T PROTEIN (test code = 6.1 g/dL 6.3-8.2 L 1844983144) ALBUMIN (test code = 3.2 g/dL 3.5-5.0 L 0679799427) ALK PHOS (test code = 133 U/L 34-122 H 9119221189) ALTv (test code = 11 U/L 5-35 1742-6) AST(SGOT) (test code = 26 U/L 13-40 6795033557) eGFR (test code = mL/min/1.73m2 6050061661) JEAN-PIERRE (test code = JEAN-PIERRE) Association of [...] tests). Lab Interpretation Abnormal (test code = 76025-3) [facility]2022-[facility]-09 13:31:02 Test Item Value Reference Range Interpretation Comments PHOSPHORUS (test code = 8159336503) 3.5 mg/dL 2.5-5.0 Lab Interpretation (test code = Normal 01059-1) [facility] WITH [id number] 13:06:17 Test Item Value Reference Range Interpretation [...] (test code = 59.9 fL 39.0-49.9 H 95515-3) RDW-CV (test code = 18.6 % 12.0-15.5 H 788-0) PLT (test code = See_Comment L [Automated 777-3) message] The sy stem which generated this result transmitted reference range : 166 - 358 10*3/ ?L. The reference r bharti was not used to interpret this result as normal/abnormal . MPV (test code = 9.6 fL 9.5-12.9 94752-9) NRBC/100 WBC (test See_Comment [Automat ed code = 1394911659) message] The system which generated this result transmitted reference range : 0.0 - 10.0 /100 WBCs. The refer ence range was not u sed to interpret th is result as normal/abnormal . NRBC x10^3 (test code See_Comment [Auto mated = 2204141616) message] The s ystem which generated this result transmitted reference range : 10*3/?L. The reference range was not used to interpret this result as normal/abnormal . GRAN MAT (NEUT) % 67.6 % (test code = 770-8) IMM GRAN % (test code 0.80 % = 2304909714) LYMPH % (test code = 20.6 % 736-9) MONO % (test code = 6.4 % 5905-5) EOS % (test code = 4.3 % 713-8) BASO % (test code = 0.3 % 706-2) GRAN MAT x10^3(ANC) 4.09 10*3/uL 1.88-7.09 (test code = 7570237948) IMM GRAN x10^3 (test 0.05 10*3/uL 0.00-0.06 code = 9514600008) LYMPH x10^3 (test code 1.25 10*3/uL 1.32-3.29 L = 731-0) MONO x10^3 (test code 0.39 10*3/uL 0.33-0.92 = 742-7) EOS x10^3 (test code = 0.26 10*3/uL 0.03-0.39 711-2) BASO x10^3 (test code <0.03 0.01-0.07 = 704-7) Lab Interpretation Abnormal (test code = 81349-0) [facility] Center[facility] D, [id number] 09:17:51 Test Item Value Reference Range Interpretation Comments VIT D 25OH (test code = 30 ng/mL 25-80 51252-3) JEAN-PIERRE (test code = JEAN-PIERRE) Deficiency: <20 ng/mLInsufficiency : 20-24 ng/mLOptimal: 25-80 ng/mL Lab Interpretation (test Normal code = 87660-4) [facility] Center[facility]IT[facility] B12, [id number] 08:17:53 Test Item Value Reference Range Interpretation Comments VIT B12 (test code = >1000 240-930 H 6585020370) JEAN-PIERRE (test code = JEAN-PIERRE) Biotin has been reported to cause a positive bias, interpret results relative to patient's use of biotin. Lab Interpretation (test Abnormal code = 42075-7) [facility] CenterPROCALCITONIN2022-02-09 07:15:44 Test Item Value Reference Range Interpretation Comments Procalcitonin (test 0.03 ng/mL <0.07 code = 3909061637) JEAN-PIERRE (test code = JEAN-PIERRE) INTERPRETATION OF [...] lung abscess/empyema. For further information please refer to:[email or web address] Lab Interpretation Normal (test code = 45933-3) [facility] CenterIRO [id number] 00:36:14 Test Item Value Reference Range Interpretation Comments IRON (test code = 5819580654) 35 ug/dL 50-160 L TIBC (test code = 7092964925) 255 ug/dL 250-410 % FE SAT (test code = 7523842984) 14 % 20-50 L Lab Interpretation (test code = Abnormal 27524-6) [facility] CenterPROTHROMBIN TIME / [id number] 23:27:38 Test Item Value Reference Range Interpretation Comments PROTIME PATIENT (test See_Comment H [Auto mated message] code = 5964-2) The system [facility] generated this result transmitted ref erence range: 12.0 - 1 4.7 Seconds. The reference range was not used to int erpret this result as normal/abnormal . INR (test code = 6301-6) Nor mal INR <1.1; Warfarin Therap eutic range 2.0 to 3. 0 or 2.5 to 3.5, dep ending upon the indica tions. Lab Interpretation (test Abnormal code = 22522-8) [facility] CenterN-[facility]MINAL [id number] 11:45:52 Test Item Value Reference Range Interpretation Comments NT-proBNP (test code 7910 pg/mL See_Comment H [Autom ated = 3183566358) message] The system which generated this result transmitted reference range : <=450. The reference range was not used to interpret this result as normal/abnormal . JEAN-PIERRE (test code = JEAN-PIERRE) Biotin has been reported to cause a negative bias, interpret results relative to patient's use of biotin. Lab Interpretation Abnormal (test code = 78523-3) [facility] (NA, K, CL, CO2, GLUCOSE, BUN, CREATININE, CA)2021-11-09 11:38:49 Test Item Value Reference Range Interpretation Comments NA (test code = 139 mmol/L 135-145 0815659821) K (test code = 3.8 mmol/L 3.5-5.0 3129885188) CL (test code = 108 mmol/L 98-108 3557064433) CO2 TOTAL (test code 26 mmol/L 23-31 = 9004128418) AGAP (test code = 2-16 3176297480) BUN (test code = 9 mg/dL 7-23 9943823098) GLUCOSE (test code = 101 mg/dL 70-110 0637107940) CREATININE (test code 0.68 mg/dL 0.50-1.04 = 7467194448) CALCIUM (test code = 9.6 mg/dL 8.6-10.6 1239673898) eGFR (test code = mL/min/1.73m2 7420275043) JEAN-PIERRE (test code = JEAN-PIERRE) Association of [...] or urine or abnormalities in imaging tests). [facility]MAG[facility]UM2022-02-08 11:38:49 Test Item Value Reference Range Interpretation Comments MAGNESIUM (test code = 0964644142) 1.8 mg/dL 1.7-2.4 Lab Interpretation (test code = Normal 41001-2) [facility] CenterPHOSPHORUS2022-02-08 11:38:29 Test Item Value Reference Range Interpretation Comments PHOSPHORUS (test code = 2087301064) 3.4 mg/dL 2.5-5.0 Lab Interpretation (test code = Normal 12398-0) [facility] CenterIRON [id number] 21:02:27 Test Item Value Reference Range Interpretation Comments IRON (test code = 9717362585) 30 ug/dL 50-160 L TIBC (test code = 8394118178) 290 ug/dL 250-410 % FE SAT (test code = 7312424592) 10 % 20-50 L Lab Interpretation (test code = Abnormal 17818-9) [facility] CenterTROPONIN [id number] 20:12:01 Test Item Value Reference Interpretation Comments Range TROPONIN I (test 0.020 ng/mL See_Comment [Automated code = 7530626322) message] The system which generated this result [...] biotin. Lab Interpretation Normal (test code = 81112-8) [facility] CenterN-[facility]MINAL [id number] 20:09:00 Test Item Value Reference Range Interpretation Comments NT-proBNP (test code 2780 pg/mL See_Comment H [Autom ated = 9580348329) message] The system which generated this result transmitted reference range : <=450. The reference range was not used to interpret this result as normal/abnormal . JEAN-PIERRE (test code = JEAN-PIERRE) Biotin has been reported to cause a negative bias, interpret results relative to patient's use of biotin. Lab Interpretation Abnormal (test code = 22469-5) [facility] CenterLIPID PANEL (74334)(TOTAL CHOLESTEROL, TRIGLYCERIDES, HDL)2021-11-07 19:59:43 Test Item Value Reference Range Interpretation Comments CHOL (test code = 78 mg/dL 120-200 L 4932533348) HDL (test code = 46 mg/dL >50 L 8549460033) HDLC RATIO (test code = See_Comment [Au tomated message] 6986455552) The system [employer] generated this result transmitted ref erence range: <=4.5. T he reference range was not used to int erpret this result as normal/abnormal . TRIG (test code = 68 mg/dL 30-170 1853526668) LDL CHOL (test code = 18 mg/dL See_Comment [Auto mated message] 31047-6) The system [employer] generated this result transmitted ref erence range: <=160. T he reference range was not used to int erpret this result as normal/abnormal . VLDL (test code = 14 mg/dL 5-60 3780329032) Lab Interpretation (test Abnormal code = 15275-9) [facility]REACTIVE [id number] 19:09:12 Test Item Value Reference Range Interpretation Comments CRP (test code = 2202946397) 0.9 mg/dL <0.8 H Lab Interpretation (test code = Abnormal 04597-9) [facility] with [id number] 15:13:46 Test Item Value Reference Range Interpretation [...] (test code = 59.0 fL 39.0-49.9 H 48381-7) RDW-CV (test code = 17.6 % 12.0-15.5 H 788-0) PLT (test code = See_Comment L [Automated 777-3) message] The sy stem which generated this result transmitted reference range : 166 - 358 10*3/ ?L. The reference r bharti was not used to interpret this result as normal/abnormal . MPV (test code = 10.1 fL 9.5-12.9 63580-0) IPF % (test code = 1.2 % 1.3-7.7 L Platelet count 0052841160) measured by fluorescence method. NRBC/100 WBC (test See_Comment [Automat ed code = 4841647840) message] The system which generated this result transmitted reference range : 0.0 - 10.0 /100 WBCs. The refer ence range was not u sed to interpret th is result as normal/abnormal . NRBC x10^3 (test code <0.01 See_Comment [Auto mated = 2243996296) message] The s ystem which generated this result transmitted reference range : 10*3/?L. The reference range was not used to interpret this result as normal/abnormal . GRAN MAT (NEUT) % 54.7 % (test code = 770-8) IMM GRAN % (test code 0.40 % = 5140562428) LYMPH % (test code = 33.1 % 736-9) MONO % (test code = 6.9 % 5905-5) EOS % (test code = 4.4 % 713-8) BASO % (test code = 0.5 % 706-2) GRAN MAT x10^3(ANC) 3.09 10*3/uL 1.88-7.09 (test code = 5086445159) IMM GRAN x10^3 (test <0.03 0.00-0.06 code = 6254894704) LYMPH x10^3 (test code 1.87 10*3/uL 1.32-3.29 = 731-0) MONO x10^3 (test code 0.39 10*3/uL 0.33-0.92 = 742-7) EOS x10^3 (test code = 0.25 10*3/uL 0.03-0.39 711-2) BASO x10^3 (test code 0.03 10*3/uL 0.01-0.07 = 704-7) POLYCHROMASIA (test 2+ See_Comment [Automa janine code = 08030-3) message] The system which generated this result transmitted reference range : 2+. The referen ce range was not u sed to interpret th is result as normal/abnormal . SPHEROCYTES (test code 1+ A = 802-9) PLT ESTIMATE (test Decreased Normal A code = 9317-9) Lab Interpretation Abnormal (test code = 25574-7) [facility] CenterMagnesium [id number] 13:23:21 Test Item Value Reference Range Interpretation Comments MAGNESIUM (test code = 7701213434) 1.7 mg/dL 1.7-2.4 Lab Interpretation (test code = Normal 79155-6) [facility] CenterCOMP. METABOLIC PANEL (85914)2021-11-07 13:23:01 Test Item Value Reference Range Interpretation Comments NA (test code = 139 mmol/L 135-145 0914680094) K (test code = 4.0 mmol/L 3.5-5.0 5073024052) CL (test code = 109 mmol/L 98-108 H 4963024082) CO2 TOTAL (test code = 27 mmol/L 23-31 1465853157) AGAP (test code = 2-16 3957073807) BUN (test code = 7 mg/dL 7-23 8705967195) GLUCOSE (test code = 105 mg/dL 70-110 1719027089) CREATININE (test code = 0.69 mg/dL 0.50-1.04 5902775572) TOTAL BILI (test code = 0.5 mg/dL 0.1-1.5 9079408607) CALCIUM (test code = 9.7 mg/dL 8.6-10.6 5565402792) T PROTEIN (test code = 6.0 g/dL 6.3-8.2 L 9634199630) ALBUMIN (test code = 3.3 g/dL 3.5-5.0 L 8415431288) ALK PHOS (test code = 144 U/L 34-122 H 1622220414) ALTv (test code = 13 U/L 5-35 1742-6) AST(SGOT) (test code = 21 U/L 13-40 8416383559) eGFR (test code = mL/min/1.73m2 1385650684) JEAN-PIERRE (test code = JEAN-PIERRE) Association of [...] tests). Lab Interpretation Abnormal (test code = 62739-4) [facility] CenterPhosphorus [id number] 13:22:41 Test Item Value Reference Range Interpretation Comments PHOSPHORUS (test code = 6561601577) 2.0 mg/dL 2.5-5.0 L Lab Interpretation (test code = Abnormal 44150-5) [facility] CenterPOCT GLUCOSE (AUTOMATED)2021-11-07 08:20:04 Test Item Value Reference Range Interpretation Comments POCT GLU (test code = 8108806903) 103 mg/dL 70-110 Lab Interpretation (test code = Normal 27187-5) [facility] CenterFERRITIN [id number] 03:00:42 Test Item Value Reference Range Interpretation Comments FERRITIN (test code = 12.4 ng/mL 11.0-264.0 9189198698) JEAN-PIERRE (test code = JEAN-PIERRE) Biotin has been reported to cause a negative bias, interpret results relative to patient's use of biotin. Lab Interpretation (test Normal code = 71308-0) [facility] CenterTHYROID STIMULATING [id number] 02:56:21 Test Item Value Reference Range Interpretation Comments TSH (test code = See_Comment [Automated message] 4558089821) The system [employer] generated this result transmitted ref erence range: 0.45 - 4 .70 mIU/L. The refe rence range was not u sed to interpret this result as normal/abnor mal. Lab Interpretation (test Normal code = 04379-1) [facility] CenterGLYCOSYLATED HEMOGLOBIN (A1C)2021-11-07 02:29:47 Test Item Value Reference Range Interpretation Comments HGB A1C (test code = 5.1 % 4.0-5.7 4548-4) JEAN-PIERRE (test code = JEAN-PIERRE) Reference RangesNormal: <5.7%Prediabetes: 5.7 - 6.4%Diabetes: > 6.5% Lab Interpretation (test Normal code = 66737-3) [facility] CenterCOMP. Metabolic Panel (84872)2021-11-06 20:57:43 Test Item Value Reference Range Interpretation Comments NA (test code = 140 mmol/L 135-145 1508841313) K (test code = 4.0 mmol/L 3.5-5.0 6309092415) CL (test code = 106 mmol/L 98-108 6749293357) CO2 TOTAL (test code = 31 mmol/L 23-31 8036982814) AGAP (test code = 2-16 1935677134) BUN (test code = 8 mg/dL 7-23 2529969093) GLUCOSE (test code = 117 mg/dL 70-110 H 8625908063) CREATININE (test code = 0.83 mg/dL 0.50-1.04 2627281361) TOTAL BILI (test code = 0.5 mg/dL 0.1-1.6 7793675168) CALCIUM (test code = 10.0 mg/dL 8.6-10.6 8891328118) T PROTEIN (test code = 5.8 g/dL 6.3-8.2 L 6372353695) ALBUMIN (test code = 3.3 g/dL 3.5-5.0 L 7227991639) ALK PHOS (test code = 141 U/L 34-122 H 5672860464) ALTv (test code = 13 U/L 5-35 1742-6) AST(SGOT) (test code = 21 U/L 13-40 1204831321) eGFR (test code = mL/min/1.73m2 4874332764) JEAN-PIERRE (test code = JEAN-PIERRE) Association of [...] tests). Lab Interpretation Abnormal (test code = 59227-5) [facility] with [id number] 20:46:46 Test Item Value Reference Range Interpretation Comments WBC (test code = See_Comment [Automated 1149-2) message] The sy stem which generated this result transmitted reference range : 4.30 - 11.10 10*3/?L. The reference range was not used to interpret this result as normal/abnormal . RBC (test code = See_Comment L [Automated 099-8) message] The sy stem which generated this [...] (test code = 59.1 fL 39.0-49.9 H 49529-9) RDW-CV (test code = 17.6 % 12.0-15.5 H 788-0) PLT (test code = See_Comment L [Automated 777-3) message] The sy stem which generated this result transmitted reference range : 166 - 358 10*3/ ?L. The reference r bharti was not used to interpret this result as normal/abnormal . MPV (test code = 9.2 fL 9.5-12.9 L 36822-7) NRBC/100 WBC (test See_Comment [Automat ed code = 2873126667) message] The system which generated this result transmitted reference range : 0.0 - 10.0 /100 WBCs. The refer ence range was not u sed to interpret th is result as normal/abnormal . NRBC x10^3 (test code <0.01 See_Comment [Auto mated = 2805809819) message] The s ystem which generated this result transmitted reference range : 10*3/?L. The reference range was not used to interpret this result as normal/abnormal . GRAN MAT (NEUT) % 55.4 % (test code = 770-8) IMM GRAN % (test code 0.60 % = [id number]) LYMPH % (test code = 32.5 % 736-9) MONO % (test code = 7.2 % 5905-5) EOS % (test code = 3.9 % 713-8) BASO % (test code = 0.4 % 706-2) GRAN MAT x10^3(ANC) 2.87 10*3/uL 1.88-7.09 (test code = [id number]) IMM GRAN x10^3 (test 0.03 10*3/uL 0.00-0.06 code = [id number]) LYMPH x10^3 (test code 1.68 10*3/uL 1.32-3.29 = 731-0) MONO x10^3 (test code 0.37 10*3/uL 0.33-0.92 = 742-7) EOS x10^3 (test code = 0.20 10*3/uL 0.03-0.39 711-2) BASO x10^3 (test code <0.03 0.01-0.07 = 704-7) Lab Interpretation Abnormal (test code = 74895-5) [facility] Tmqup0406[facility]82-88 20:31:53 Test Item Value Reference Range Interpretation Comments LACTIC ACID (test code = 1.59 mmol/L 0.50-2.20 [id number]) Lab Interpretation (test code = Normal 38076-4) [facility][U] XRAY KNEE 1 OR 2 VWS RIGHT [id number] 12:47:00Images acquired, not reported on this accession number.[facility][U] XRAY ANKLE MIN 3 VWS RIGHT [id number] 12:47:00Images acquired, not reported on this accession number.[facility][U] XRAY FEMUR 2 VWS LEFT [id number] 2018-11-13 11:56:00Images acquired, not reported on this accession number.[facility][U] XRAY FEMUR 2 VWS LEFT [id number] 10:54:00Images acquired, not reported on this accession number.[facility] [id number] 12:36:00 Test Item Value Reference Range Interpretation Comments MPV (test code = MPV) 7.4 7.4-10.4 [facility]HcguglrJXWCAZBBVF7402-78-09 12:36:00 Test Item Value Reference Range Interpretation Comments Platelet (test code = Platelet) 138 133-450 [facility] ClinicPngkulvJQVZGZMYXG0202-22-59 12:36:00 Test Item Value Reference Range Interpretation Comments RDW (test code = RDW) 15.6 11.5-14.5 [facility] ClinicUexvtuoAZCYCYMRGO7176-39-93 12:36:00 Test Item Value Reference Range Interpretation Comments WBC (test code = WBC) 4.0 3.7-10.4 [facility] ClinicPiqhtrxJJTMVMHXJI3676-14-27 12:36:00 Test Item Value Reference Range Interpretation Comments MCHC (test code = MCHC) 33.4 32.0-36.0 [facility] ClinicRerezjeISJPNUVBSS0264-10-79 12:36:00 Test Item Value Reference Range Interpretation Comments Hgb (test code = Hgb) 7.8 12.0-16.0 [facility] ClinicYcphvgeDKDYWYNJIS3318-53-22 12:36:00 Test Item Value Reference Range Interpretation Comments MCH (test code = MCH) 33.4 pg 27.0-31.0 [facility] ClinicAbzgugkCVDPWTANEC4270-55-22 12:36:00 Test Item Value Reference Range Interpretation Comments RBC (test code = RBC) 2.33 4.20-5.40 [facility] ClinicYaxhfmnTYVNFOEVDU9588-79-87 12:36:00 Test Item Value Reference Range Interpretation Comments Hct (test code = Hct) 23.2 36.0-48.0 [facility] ClinicUvmlfznCOWSXVGVXJ0457-74-72 12:36:00 Test Item Value Reference Range Interpretation Comments MCV (test code = MCV) 99.9 80.0-98.0 [facility] ClinicWxipqmqXVQSEEZGQW3297-91-37 12:36:00 Test Item Value Reference Range Interpretation Comments Lymphocytes # (test code = Lymphocytes 1.6 1.0-5.5 #) [facility] ClinicErbjxqoYCNKQCRPVV4679-61-55 12:36:00 Test Item Value Reference Range Interpretation Comments Segs (test code = Segs) 44.5 45.0-75.0 [facility] ClinicJendsmbOYPKFGLQIQ0539-32-53 12:36:00 Test Item Value Reference Range Interpretation Comments Lymphocytes (test code = Lymphocytes) 40.8 20.0-40.0 [facility] ClinicJarvzgxJXDTYGQSEA3959-05-95 12:36:00 Test Item Value Reference Range Interpretation Comments Monocytes # (test code 0.3 See_Comment [Aut omated message] The = Monocytes #) system which generated this result tra nsmitted reference range : <=0.8. The reference r bharti was not used to int erpret this result as normal/abnormal . [facility] ClinicOpzpskzLRLEULXRJT3607-54-58 12:36:00 Test Item Value Reference Range Interpretation Comments Eosinophils # (test code 0.3 See_Comment [A utomated message] The = Eosinophils #) system whic h generated this result tra nsmitted reference range : <=0.5. The reference r bharti was not used to int erpret this result as normal/abnormal . [facility] ClinicZjeinqqZNJOVLNHYG8336-48-86 12:36:00 Test Item Value Reference Range Interpretation Comments Neutrophils # (test code = Neutrophils 1.8 1.5-8.1 #) [facility] ClinicFyysduzTJIFUHAMRW7458-03-58 12:36:00 Test Item Value Reference Range Interpretation Comments Monocytes (test code = Monocytes) 7.4 2.0-12.0 [facility] ClinicDmvbuwuTDDUQEFGQD1993-95-12 12:36:00 Test Item Value Reference Range Interpretation Comments Eosinophils (test code = 6.7 See_Comment [A utomated message] The Eosinophils) system which ge nerated this result tra nsmitted reference range : <=4.0. The reference r bharti was not used to int erpret this result as normal/abnormal . [facility] ClinicFoymtzmBNEFWGMWOX8685-30-90 12:36:00 Test Item Value Reference Range Interpretation Comments Basophils (test code = 0.6 See_Comment [Aut omated message] The Basophils) system which ge nerated this result tra nsmitted reference range : <=1.0. The reference r bharti was not used to int erpret this result as normal/abnormal . [facility] ClinicYaaqbprCOOKTTHBIH1661-67-91 12:36:00 Test Item Value Reference Range Interpretation Comments MPV (test code = MPV) 7.4 7.4-10.4 [facility] ClinicXldnecxICSZNHKFOG6863-39-71 12:36:00 Test Item Value Reference Range Interpretation Comments Platelet (test code = Platelet) 138 133-450 [facility] ClinicOccfadxRMNRTJWRTS0682-16-80 12:36:00 Test Item Value Reference Range Interpretation Comments RDW (test code = RDW) 15.6 11.5-14.5 [facility] ClinicMxukxzsAFYTPCRYBN3935-07-89 12:36:00 Test Item Value Reference Range Interpretation Comments WBC (test code = WBC) 4.0 3.7-10.4 [facility] ClinicVcpvbaiQASYQMUSGK4582-87-81 12:36:00 Test Item Value Reference Range Interpretation Comments MCHC (test code = MCHC) 33.4 32.0-36.0 [facility] ClinicWobgwexJVMVRSHFTU6533-70-60 12:36:00 Test Item Value Reference Range Interpretation Comments Hgb (test code = Hgb) 7.8 12.0-16.0 [facility] ClinicGdefvknLRDWHYPQDB3171-22-00 12:36:00 Test Item Value Reference Range Interpretation Comments MCH (test code = MCH) 33.4 pg 27.0-31.0 [facility] ClinicGmkrhxfUXVOBSVBPW0339-48-80 12:36:00 Test Item Value Reference Range Interpretation Comments RBC (test code = RBC) 2.33 4.20-5.40 [place] 261268-12-27 12:36:00 Test Item Value Reference Range Interpretation Comments Hct (test code = Hct) 23.2 36.0-48.0 [facility] ClinicArmgqabFSLVXENGQR7157-45-39 12:36:00 Test Item Value Reference Range Interpretation Comments MCV (test code = MCV) 99.9 80.0-98.0 [facility] ClinicKpcvoqfNWPRKPADXO7507-82-57 12:36:00 Test Item Value Reference Range Interpretation Comments Lymphocytes # (test code = Lymphocytes 1.6 1.0-5.5 #) [facility] ClinicHgbpkcuEUUXBSIMOX3693-21-77 12:36:00 Test Item Value Reference Range Interpretation Comments Segs (test code = Segs) 44.5 45.0-75.0 [facility] ClinicSlfbfxdQFLGQUVRCM9804-04-15 12:36:00 Test Item Value Reference Range Interpretation Comments Lymphocytes (test code = Lymphocytes) 40.8 20.0-40.0 [facility] ClinicNthvftqTWTTWGODHC8712-86-67 12:36:00 Test Item Value Reference Range Interpretation Comments Monocytes # (test code 0.3 See_Comment [Aut omated message] The = Monocytes #) system which generated this result tra nsmitted reference range : <=0.8. The reference r bharti was not used to int erpret this result as normal/abnormal . [facility] ClinicNpbcrbkIWEUIEBRZA8196-41-02 12:36:00 Test Item Value Reference Range Interpretation Comments Eosinophils # (test code 0.3 See_Comment [A utomated message] The = Eosinophils #) system whic h generated this result tra nsmitted reference range : <=0.5. The reference r bharti was not used to int erpret this result as normal/abnormal . [place] [address]-12-27 12:36:00 Test Item Value Reference Range Interpretation Comments Neutrophils # (test code = Neutrophils 1.8 1.5-8.1 #) [facility] ClinicFdcxykiZGKUIPOMRA5500-95-87 12:36:00 Test Item Value Reference Range Interpretation Comments Monocytes (test code = Monocytes) 7.4 2.0-12.0 [facility] ClinicOkqkmvfWXPJGGTHAU9560-82-45 12:36:00 Test Item Value Reference Range Interpretation Comments Eosinophils (test code = 6.7 See_Comment [A utomated message] The Eosinophils) system which ge nerated this result tra nsmitted reference range : <=4.0. The reference r bharti was not used to int erpret this result as normal/abnormal . [facility] ClinicOkqexplFXLMFEGTFU9912-38-73 12:36:00 Test Item Value Reference Range Interpretation Comments Basophils (test code = 0.6 See_Comment [Aut omated message] The Basophils) system which ge nerated this result tra nsmitted reference range : <=1.0. The reference r bharti was not used to int erpret this result as normal/abnormal . [facility] ClinicGhkvktcASAKKDYVDI9100-17-51 12:36:00 Test Item Value Reference Range Interpretation Comments MPV (test code = MPV) 7.4 7.4-10.4 [facility] ClinicKpuwhjvICZLABDDXO6022-56-57 12:36:00 Test Item Value Reference Range Interpretation Comments Platelet (test code = Platelet) 138 133-450 [facility] ClinicAkkgduzHSWAXTODBT2589-47-13 12:36:00 Test Item Value Reference Range Interpretation Comments RDW (test code = RDW) 15.6 11.5-14.5 [facility] ClinicNbprcxjLNLCINYCXS5296-44-54 12:36:00 Test Item Value Reference Range Interpretation Comments WBC (test code = WBC) 4.0 3.7-10.4 [facility] ClinicVebvugzLVSSVPMSGS1580-38-46 12:36:00 Test Item Value Reference Range Interpretation Comments MCHC (test code = MCHC) 33.4 32.0-36.0 [facility] ClinicWcwbokmJBEQQNGXDE4317-78-61 12:36:00 Test Item Value Reference Range Interpretation Comments Hgb (test code = Hgb) 7.8 12.0-16.0 [facility] ClinicMfderduAYWPVHTJFU5563-33-88 12:36:00 Test Item Value Reference Range Interpretation Comments MCH (test code = MCH) 33.4 pg 27.0-31.0 [facility] ClinicVzhtuqaYPRIAQWZZP9293-13-18 12:36:00 Test Item Value Reference Range Interpretation Comments RBC (test code = RBC) 2.33 4.20-5.40 [place] 261268-12-27 12:36:00 Test Item Value Reference Range Interpretation Comments Hct (test code = Hct) 23.2 36.0-48.0 [facility] ClinicGfuqtgwNRHIGVTBHI7213-67-56 12:36:00 Test Item Value Reference Range Interpretation Comments MCV (test code = MCV) 99.9 80.0-98.0 [facility] ClinicBdequgqWFMZXGDKCB1557-84-27 12:36:00 Test Item Value Reference Range Interpretation Comments Lymphocytes # (test code = Lymphocytes 1.6 1.0-5.5 #) [facility] ClinicZouxuuzHATRITWIVU3900-91-34 12:36:00 Test Item Value Reference Range Interpretation Comments Segs (test code = Segs) 44.5 45.0-75.0 [facility] ClinicSovhbghUTDXZUQMXU4436-44-75 12:36:00 Test Item Value Reference Range Interpretation Comments Lymphocytes (test code = Lymphocytes) 40.8 20.0-40.0 [facility] ClinicHryrkdiJEYHRIZRRA5355-26-80 12:36:00 Test Item Value Reference Range Interpretation Comments Monocytes # (test code 0.3 See_Comment [Aut omated message] The = Monocytes #) system which generated this result tra nsmitted reference range : <=0.8. The reference r bharti was not used to int erpret this result as normal/abnormal . [facility] ClinicYfnxkluRZPVBRPOEE1921-70-84 12:36:00 Test Item Value Reference Range Interpretation Comments Eosinophils # (test code 0.3 See_Comment [A utomated message] The = Eosinophils #) system whic h generated this result tra nsmitted reference range : <=0.5. The reference r bharti was not used to int erpret this result as normal/abnormal . [facility] ClinicHmhdnbgTBMIOFNMWI5816-37-23 12:36:00 Test Item Value Reference Range Interpretation Comments Neutrophils # (test code = Neutrophils 1.8 1.5-8.1 #) [facility] ClinicGahxnvlOKXYDGUNBW1687-35-26 12:36:00 Test Item Value Reference Range Interpretation Comments Monocytes (test code = Monocytes) 7.4 2.0-12.0 [facility] ClinicUauczpfVJGOUTEZNH2292-61-95 12:36:00 Test Item Value Reference Range Interpretation Comments Eosinophils (test code = 6.7 See_Comment [A utomated message] The Eosinophils) system which ge nerated this result tra nsmitted reference range : <=4.0. The reference r bharti was not used to int erpret this result as normal/abnormal . [facility] ClinicXzyylxnOCELGTZPXR2532-93-36 12:36:00 Test Item Value Reference Range Interpretation Comments Basophils (test code = 0.6 See_Comment [Aut omated message] The Basophils) system which ge nerated this result tra nsmitted reference range : <=1.0. The reference r bharti was not used to int erpret this result as normal/abnormal . [facility] ClinicWdmvaxeLCFWSCIXOI0933-79-01 11:28:00 Test Item Value Reference Range Interpretation Comments RBC (test code = RBC) 2.30 4.20-5.40 [facility] ClinicCinkhccQYXVLJFPXB4907-84-56 11:28:00 Test Item Value Reference Range Interpretation Comments WBC (test code = WBC) 4.9 3.7-10.4 [facility] ClinicStyqpnjPEUJKWOAWN7298-44-89 11:28:00 Test Item Value Reference Range Interpretation Comments Lymphocytes # (test code = Lymphocytes 1.5 1.0-5.5 #) [facility] ClinicKhhrhmiRGGMTIRHVP6652-26-91 11:28:00 Test Item Value Reference Range Interpretation Comments Eosinophils # (test code 0.2 See_Comment [A utomated message] The = Eosinophils #) system [facility] generated this result tra nsmitted reference range : <=0.5. The reference r bharti was not used to int erpret this result as normal/abnormal . [facility] ClinicLylnozlMHXANDTWYE7614-71-78 11:28:00 Test Item Value Reference Range Interpretation Comments Monocytes # (test code 0.3 See_Comment [Aut omated message] The = Monocytes #) system which generated this result tra nsmitted reference range : <=0.8. The reference r bharti was not used to int erpret this result as normal/abnormal . [facility] ClinicIqgjxosEMGQNREASE6630-48-60 11:28:00 Test Item Value Reference Range Interpretation Comments Basophils (test code = 0.4 See_Comment [Aut omated message] The Basophils) system which ge nerated this result tra nsmitted reference range : <=1.0. The reference r bharti was not used to int erpret this result as normal/abnormal . [facility] ClinicZdotcodEHDBLUXFOA7046-10-20 11:28:00 Test Item Value Reference Range Interpretation Comments Neutrophils # (test code = Neutrophils 2.8 1.5-8.1 #) [facility] ClinicMfxtvtjODBSIOBOUD6145-96-86 11:28:00 Test Item Value Reference Range Interpretation Comments Lymphocytes (test code = Lymphocytes) 31.2 20.0-40.0 [place] 261268-12-26 11:28:00 Test Item Value Reference Range Interpretation Comments Monocytes (test code = Monocytes) 6.9 2.0-12.0 [facility]2018-12-26 11:28:00 Test Item Value Reference Range Interpretation Comments Bili Indirect Unable to See_Comment [Automated (test code = Bili Calculate message] T he system Indirect) which generated this result transmitted reference range : <=1.0. The reference range was not used to interpret this result as normal/abnormal . [facility]2018-12-26 11:28:00 Test Item Value Reference Range Interpretation Comments Bili Direct (test code no gt See_Comment [Aut omated message] The = Bili Direct) system which generated this result tra nsmitted reference range : <=0.3. The reference r bharti was not used to int erpret this result as zaida l/abnormal. [facility]2018-12-26 11:28:00 Test Item Value Reference Range Interpretation Comments Bili Total (test code = Bili Total) 0.3 0.2-1.3 [facility]2018-12-26 11:28:00 Test Item Value Reference Range Interpretation Comments AST (test code = AST) 22 See_Comment [Auto mated message] The system which ge nerated this result transmit janine reference range : <=37. The reference range was not used to interpr et this result as zaida l/abnormal. [facility]2018-12-26 11:28:00 Test Item Value Reference Range Interpretation Comments Alk Phos (test code = Alk Phos) 127 39-136 [facility]2018-12-26 11:28:00 Test Item Value Reference Range Interpretation Comments ALT (test code = ALT) 9 See_Comment [Auto mated message] The system which ge nerated this result transmit janine reference range : <=65. The reference range was not used to interpr et this result as zaida l/abnormal. [facility]2018-12-26 11:28:00 Test Item Value Reference Range Interpretation Comments A/G Ratio (test code = A/G Ratio) 0.9 1 0.7-1.6 [facility]2018-12-26 11:28:00 Test Item Value Reference Range Interpretation Comments Albumin Lvl (test code = Albumin Lvl) 2.4 3.5-5.0 [facility]2018-12-26 11:28:00 Test Item Value Reference Range Interpretation Comments Globulin (test code = Globulin) 2.7 2.7-4.2 [facility] ClinicMyxelqmCVTWIHZHGD3283-10-52 11:28:00 Test Item Value Reference Range Interpretation Comments Segs (test code = Segs) 58.3 45.0-75.0 [facility]2018-12-26 11:28:00 Test Item Value Reference Range Interpretation Comments Total Protein (test code = Total 5.1 6.4-8.4 Protein) [facility]2018-12-26 11:28:00 Test Item Value Reference Range Interpretation Comments eGFR (test code = eGFR) 62 [facility]2018-12-26 11:28:00 Test Item Value Reference Range Interpretation Comments Chloride Lvl (test code = Chloride Lvl) 108 95-109 [facility]2018-12-26 11:28:00 Test Item Value Reference Range Interpretation Comments CO2 (test code = CO2) 30 24-32 [facility]2018-12-26 11:28:00 Test Item Value Reference Range Interpretation Comments Sodium Lvl (test code = Sodium Lvl) 138 135-145 [facility]2018-12-26 11:28:00 Test Item Value Reference Range Interpretation Comments Potassium Lvl (test code = Potassium 4.6 3.5-5.1 Lvl) [facility]2018-12-26 11:28:00 Test Item Value Reference Range Interpretation Comments Creatinine Lvl (test code = Creatinine 0.91 0.50-1.40 Lvl) [facility]2018-12-26 11:28:00 Test Item Value Reference Range Interpretation Comments Calcium Lvl (test code = Calcium Lvl) 9.7 8.5-10.5 [facility]2018-12-26 11:28:00 Test Item Value Reference Range Interpretation Comments AGAP (test code = AGAP) 4.6 10.0-20.0 [facility]2018-12-26 11:28:00 Test Item Value Reference Range Interpretation Comments BUN (test code = BUN) 16 7-22 [facility] ClinicQcsmdluHFHTQVWGCE5234-85-49 11:28:00 Test Item Value Reference Range Interpretation Comments Eosinophils (test code = 3.2 See_Comment [A utomated message] The Eosinophils) system which ge nerated this result tra nsmitted reference range : <=4.0. The reference r bharti was not used to int erpret this result as normal/abnormal . [facility]2018-12-26 11:28:00 Test Item Value Reference Range Interpretation Comments Glucose Lvl (test code = Glucose Lvl) 85 70-99 [facility]2018-12-26 11:28:00 Test Item Value Reference Range Interpretation Comments Magnesium Lvl (test code = Magnesium 2.0 1.8-2.4 Lvl) [facility] ClinicQrpwrwpHCSNJVTVCP7642-29-77 11:28:00 Test Item Value Reference Range Interpretation Comments MPV (test code = MPV) 8.6 7.4-10.4 [facility] ClinicRlfxrawOSIKBETHGQ1863-99-94 11:28:00 Test Item Value Reference Range Interpretation Comments Platelet (test code = Platelet) 121 133-450 [facility] ClinicRjtpibaNQUGTBSCNG1827-25-57 11:28:00 Test Item Value Reference Range Interpretation Comments MCHC (test code = MCHC) 33.1 32.0-36.0 [facility] ClinicTdwvuxgMVCYOCNGIB8518-30-70 11:28:00 Test Item Value Reference Range Interpretation Comments RDW (test code = RDW) 15.5 11.5-14.5 [place] 261268-12-26 11:28:00 Test Item Value Reference Range Interpretation Comments MCV (test code = MCV) 99.5 80.0-98.0 [facility] ClinicFiwbmoyVXQDKGQTNU1986-66-80 11:28:00 Test Item Value Reference Range Interpretation Comments MCH (test code = MCH) 32.9 pg 27.0-31.0 [facility] ClinicRsqwgaaWUAOFCBUND9822-15-73 11:28:00 Test Item Value Reference Range Interpretation Comments Hct (test code = Hct) 22.8 36.0-48.0 [facility] ClinicJloautlIYNUNQUMUN4575-35-37 11:28:00 Test Item Value Reference Range Interpretation Comments Hgb (test code = Hgb) 7.6 12.0-16.0 [facility]2018-12-26 11:28:00 Test Item Value Reference Range Interpretation Comments Bili Indirect Unable to See_Comment [Automated (test code = Bili Calculate message] T he system Indirect) which generated this result transmitted reference range : <=1.0. The reference range was not used to interpret this result as normal/abnormal . [facility] ClinicCyqiiufEZYTTBKMJG1550-97-54 11:28:00 Test Item Value Reference Range Interpretation Comments RBC (test code = RBC) 2.30 4.20-5.40 [facility] ClinicSopelatJZRRORBSDI9323-52-65 11:28:00 Test Item Value Reference Range Interpretation Comments WBC (test code = WBC) 4.9 3.7-10.4 [facility] ClinicWfuciewJEIQQZIXVQ4928-17-22 11:28:00 Test Item Value Reference Range Interpretation Comments Lymphocytes # (test code = Lymphocytes 1.5 1.0-5.5 #) [facility] ClinicVadolurEAAFYOEFFZ8572-40-59 11:28:00 Test Item Value Reference Range Interpretation Comments Eosinophils # (test code 0.2 See_Comment [A utomated message] The = Eosinophils #) system whic h generated this result tra nsmitted reference range : <=0.5. The reference r bharti was not used to int erpret this result as normal/abnormal . [facility] ClinicZsbunohGZJATQNNVT0690-47-61 11:28:00 Test Item Value Reference Range Interpretation Comments Monocytes # (test code 0.3 See_Comment [Aut omated message] The = Monocytes #) system which generated this result tra nsmitted reference range : <=0.8. The reference r bharti was not used to int erpret this result as normal/abnormal . [facility] ClinicIwjpmuyRRIQWNHNHD7020-44-82 11:28:00 Test Item Value Reference Range Interpretation Comments Basophils (test code = 0.4 See_Comment [Aut omated message] The Basophils) system which ge nerated this result tra nsmitted reference range : <=1.0. The reference r bharti was not used to int erpret this result as normal/abnormal . [facility] ClinicOxobfxhBJFIZUTSLH0359-08-11 11:28:00 Test Item Value Reference Range Interpretation Comments Neutrophils # (test code = Neutrophils 2.8 1.5-8.1 #) [facility] ClinicIplwidnNLPQJRURQS3804-55-40 11:28:00 Test Item Value Reference Range Interpretation Comments Lymphocytes (test code = Lymphocytes) 31.2 20.0-40.0 [facility] ClinicUzrdbezIGBVFRBLKM0879-04-54 11:28:00 Test Item Value Reference Range Interpretation Comments Monocytes (test code = Monocytes) 6.9 2.0-12.0 [facility] ClinicYzwnjbcLOMYQAISUV1402-05-10 11:28:00 Test Item Value Reference Range Interpretation Comments Segs (test code = Segs) 58.3 45.0-75.0 [facility] ClinicPgermmpDSNRSSLRMC9037-56-15 11:28:00 Test Item Value Reference Range Interpretation Comments Eosinophils (test code = 3.2 See_Comment [A utomated message] The Eosinophils) system which ge nerated this result tra nsmitted reference range : <=4.0. The reference r bharti was not used to int erpret this result as normal/abnormal . [facility]2018-12-26 11:28:00 Test Item Value Reference Range Interpretation Comments Bili Direct (test code no gt See_Comment [Aut omated message] The = Bili Direct) system which generated this result tra nsmitted reference range : <=0.3. The reference r bharti was not used to int erpret this result as zaida l/abnormal. [facility]2018-12-26 11:28:00 Test Item Value Reference Range Interpretation Comments Bili Total (test code = Bili Total) 0.3 0.2-1.3 [facility]2018-12-26 11:28:00 Test Item Value Reference Range Interpretation Comments AST (test code = AST) 22 See_Comment [Auto mated message] The system which ge nerated this result transmit janine reference range : <=37. The reference range was not used to interpr et this result as zaida l/abnormal. [facility]2018-12-26 11:28:00 Test Item Value Reference Range Interpretation Comments Alk Phos (test code = Alk Phos) 127 39-136 [facility]2018-12-26 11:28:00 Test Item Value Reference Range Interpretation Comments ALT (test code = ALT) 9 See_Comment [Auto mated message] The system which ge nerated this result transmit janine reference range : <=65. The reference range was not used to interpr et this result as zaida l/abnormal. [facility]2018-12-26 11:28:00 Test Item Value Reference Range Interpretation Comments A/G Ratio (test code = A/G Ratio) 0.9 1 0.7-1.6 [facility]2018-12-26 11:28:00 Test Item Value Reference Range Interpretation Comments Albumin Lvl (test code = Albumin Lvl) 2.4 3.5-5.0 [facility]2018-12-26 11:28:00 Test Item Value Reference Range Interpretation Comments Globulin (test code = Globulin) 2.7 2.7-4.2 [facility]2018-12-26 11:28:00 Test Item Value Reference Range Interpretation Comments Total Protein (test code = Total 5.1 6.4-8.4 Protein) [facility]2018-12-26 11:28:00 Test Item Value Reference Range Interpretation Comments eGFR (test code = eGFR) 62 [facility]2018-12-26 11:28:00 Test Item Value Reference Range Interpretation Comments Chloride Lvl (test code = Chloride Lvl) 108 95-109 [facility]2018-12-26 11:28:00 Test Item Value Reference Range Interpretation Comments CO2 (test code = CO2) 30 24-32 [facility]2018-12-26 11:28:00 Test Item Value Reference Range Interpretation Comments Sodium Lvl (test code = Sodium Lvl) 138 135-145 [facility]2018-12-26 11:28:00 Test Item Value Reference Range Interpretation Comments Potassium Lvl (test code = Potassium 4.6 3.5-5.1 Lvl) [facility]2018-12-26 11:28:00 Test Item Value Reference Range Interpretation Comments Creatinine Lvl (test code = Creatinine 0.91 0.50-1.40 Lvl) [facility]2018-12-26 11:28:00 Test Item Value Reference Range Interpretation Comments Calcium Lvl (test code = Calcium Lvl) 9.7 8.5-10.5 [facility]2018-12-26 11:28:00 Test Item Value Reference Range Interpretation Comments AGAP (test code = AGAP) 4.6 10.0-20.0 [facility]2018-12-26 11:28:00 Test Item Value Reference Range Interpretation Comments BUN (test code = BUN) 16 7-22 [facility]2018-12-26 11:28:00 Test Item Value Reference Range Interpretation Comments Glucose Lvl (test code = Glucose Lvl) 85 70-99 [facility]2018-12-26 11:28:00 Test Item Value Reference Range Interpretation Comments Magnesium Lvl (test code = Magnesium 2.0 1.8-2.4 Lvl) [facility]XlmgdkcAGJXALIKFA8193-68-74 11:28:00 Test Item Value Reference Range Interpretation Comments MPV (test code = MPV) 8.6 7.4-10.4 [facility] ClinicPqnwinmCPQXVSPSLB0422-08-28 11:28:00 Test Item Value Reference Range Interpretation Comments Platelet (test code = Platelet) 121 133-450 [facility] ClinicBnunahmTZOQHTZRLW0667-76-77 11:28:00 Test Item Value Reference Range Interpretation Comments MCHC (test code = MCHC) 33.1 32.0-36.0 [facility] ClinicHrvywttEXHVWDNEGT6452-67-79 11:28:00 Test Item Value Reference Range Interpretation Comments RDW (test code = RDW) 15.5 11.5-14.5 [facility] ClinicZarllfhQTZFMHXDEA2412-82-49 11:28:00 Test Item Value Reference Range Interpretation Comments MCV (test code = MCV) 99.5 80.0-98.0 [facility] ClinicYdqjazwLEQAAKXTPQ9833-47-00 11:28:00 Test Item Value Reference Range Interpretation Comments MCH (test code = MCH) 32.9 pg 27.0-31.0 [facility] ClinicKmuymmsUUOKMGOSNX1080-76-24 11:28:00 Test Item Value Reference Range Interpretation Comments Hct (test code = Hct) 22.8 36.0-48.0 [facility] ClinicZdycyfoHOHCWEUTKW9380-74-28 11:28:00 Test Item Value Reference Range Interpretation Comments Hgb (test code = Hgb) 7.6 12.0-16.0 [facility] ClinicWflznvaHRPLAKOILL0773-76-96 11:28:00 Test Item Value Reference Range Interpretation Comments RBC (test code = RBC) 2.30 4.20-5.40 [facility] ClinicShmgyyiWBUIWLTQOR4539-66-58 11:28:00 Test Item Value Reference Range Interpretation Comments WBC (test code = WBC) 4.9 3.7-10.4 [facility] ClinicQuafmgmODUYDRMSCT9160-95-15 11:28:00 Test Item Value Reference Range Interpretation Comments Lymphocytes # (test code = Lymphocytes 1.5 1.0-5.5 #) [facility] ClinicPgfphowOHDGFSLRPR5051-14-83 11:28:00 Test Item Value Reference Range Interpretation Comments Eosinophils # (test code 0.2 See_Comment [A utomated message] The = Eosinophils #) system wh h generated this result tra nsmitted reference range : <=0.5. The reference r bharti was not used to int erpret this result as normal/abnormal . [facility] ClinicFgttkmrKYGCLQWTYP1231-36-03 11:28:00 Test Item Value Reference Range Interpretation Comments Monocytes # (test code 0.3 See_Comment [Aut omated message] The = Monocytes #) system which generated this result tra nsmitted reference range : <=0.8. The reference r bharti was not used to int erpret this result as normal/abnormal . [facility] ClinicQdjuxmeGTVUXDSMDZ6278-76-91 11:28:00 Test Item Value Reference Range Interpretation Comments Basophils (test code = 0.4 See_Comment [Aut omated message] The Basophils) system which ge nerated this result tra nsmitted reference range : <=1.0. The reference r bharti was not used to int erpret this result as normal/abnormal . [facility] ClinicFkbiyfpFGVRDDGAMD1266-66-64 11:28:00 Test Item Value Reference Range Interpretation Comments Neutrophils # (test code = Neutrophils 2.8 1.5-8.1 #) [facility] ClinicUbsqlzsEGGSOUELOG4641-95-83 11:28:00 Test Item Value Reference Range Interpretation Comments Lymphocytes (test code = Lymphocytes) 31.2 20.0-40.0 [place] 261268-12-26 11:28:00 Test Item Value Reference Range Interpretation Comments Monocytes (test code = Monocytes) 6.9 2.0-12.0 [facility] ClinicXbygujzQVGWEGUYLT0402-21-66 11:28:00 Test Item Value Reference Range Interpretation Comments Segs (test code = Segs) 58.3 45.0-75.0 [place] 261268-12-26 11:28:00 Test Item Value Reference Range Interpretation Comments Eosinophils (test code = 3.2 See_Comment [A utomated message] The Eosinophils) system which ge nerated this result tra nsmitted reference range : <=4.0. The reference r bharti was not used to int erpret this result as normal/abnormal . [place] 033448-12-26 11:28:00 Test Item Value Reference Range Interpretation Comments Bili Indirect Unable to See_Comment [Automated (test code = Bili Calculate message] T he system Indirect) which generated this result transmitted reference range : <=1.0. The reference range was not used to interpret this result as normal/abnormal . [facility]2018-12-26 11:28:00 Test Item Value Reference Range Interpretation Comments Bili Direct (test code no gt See_Comment [Aut omated message] The = Bili Direct) system which generated this result tra nsmitted reference range : <=0.3. The reference r bharti was not used to int erpret this result as zaida l/abnormal. [place] 033448-12-26 11:28:00 Test Item Value Reference Range Interpretation Comments Bili Total (test code = Bili Total) 0.3 0.2-1.3 [place] 033448-12-26 11:28:00 Test Item Value Reference Range Interpretation Comments AST (test code = AST) 22 See_Comment [Auto mated message] The system which ge nerated this result transmit janine reference range : <=37. The reference range was not used to interpr et this result as zaida l/abnormal. [place] 033448-12-26 11:28:00 Test Item Value Reference Range Interpretation Comments Alk Phos (test code = Alk Phos) 127 39-136 [facility]2018-12-26 11:28:00 Test Item Value Reference Range Interpretation Comments ALT (test code = ALT) 9 See_Comment [Auto mated message] The system which ge nerated this result transmit janine reference range : <=65. The reference range was not used to interpr et this result as zaida l/abnormal. [facility]2018-12-26 11:28:00 Test Item Value Reference Range Interpretation Comments A/G Ratio (test code = A/G Ratio) 0.9 1 0.7-1.6 [facility]2018-12-26 11:28:00 Test Item Value Reference Range Interpretation Comments Albumin Lvl (test code = Albumin Lvl) 2.4 3.5-5.0 [facility]2018-12-26 11:28:00 Test Item Value Reference Range Interpretation Comments Globulin (test code = Globulin) 2.7 2.7-4.2 [facility]2018-12-26 11:28:00 Test Item Value Reference Range Interpretation Comments Total Protein (test code = Total 5.1 6.4-8.4 Protein) [facility]2018-12-26 11:28:00 Test Item Value Reference Range Interpretation Comments eGFR (test code = eGFR) 62 [facility]2018-12-26 11:28:00 Test Item Value Reference Range Interpretation Comments Chloride Lvl (test code = Chloride Lvl) 108 95-109 [facility]2018-12-26 11:28:00 Test Item Value Reference Range Interpretation Comments CO2 (test code = CO2) 30 24-32 [facility]2018-12-26 11:28:00 Test Item Value Reference Range Interpretation Comments Sodium Lvl (test code = Sodium Lvl) 138 135-145 [facility]2018-12-26 11:28:00 Test Item Value Reference Range Interpretation Comments Potassium Lvl (test code = Potassium 4.6 3.5-5.1 Lvl) [facility]2018-12-26 11:28:00 Test Item Value Reference Range Interpretation Comments Creatinine Lvl (test code = Creatinine 0.91 0.50-1.40 Lvl) [facility]2018-12-26 11:28:00 Test Item Value Reference Range Interpretation Comments Calcium Lvl (test code = Calcium Lvl) 9.7 8.5-10.5 [place] 033448-12-26 11:28:00 Test Item Value Reference Range Interpretation Comments AGAP (test code = AGAP) 4.6 10.0-20.0 [facility]2018-12-26 11:28:00 Test Item Value Reference Range Interpretation Comments BUN (test code = BUN) 16 7-22 [facility]2018-12-26 11:28:00 Test Item Value Reference Range Interpretation Comments Glucose Lvl (test code = Glucose Lvl) 85 70-99 [facility]2018-12-26 11:28:00 Test Item Value Reference Range Interpretation Comments Magnesium Lvl (test code = Magnesium 2.0 1.8-2.4 Lvl) [facility] ClinicEhincnwWOKPUNQMPV0808-66-06 11:28:00 Test Item Value Reference Range Interpretation Comments MPV (test code = MPV) 8.6 7.4-10.4 [facility] ClinicVhpxassVFHYFFGUHH0691-65-40 11:28:00 Test Item Value Reference Range Interpretation Comments Platelet (test code = Platelet) 121 133-450 [facility] ClinicMoopqcxKOMNSOMJAW3774-07-31 11:28:00 Test Item Value Reference Range Interpretation Comments MCHC (test code = MCHC) 33.1 32.0-36.0 [facility] ClinicBogpqgnYQHQSSMDHL7536-60-31 11:28:00 Test Item Value Reference Range Interpretation Comments RDW (test code = RDW) 15.5 11.5-14.5 [facility] ClinicIyuyqdpSZIKTLWSPJ5728-73-73 11:28:00 Test Item Value Reference Range Interpretation Comments MCV (test code = MCV) 99.5 80.0-98.0 [facility] ClinicXdszjnuRBRIYQPUIU5079-19-71 11:28:00 Test Item Value Reference Range Interpretation Comments MCH (test code = MCH) 32.9 pg 27.0-31.0 [facility] ClinicClxdcxlBBVNOFXFJA3920-90-07 11:28:00 Test Item Value Reference Range Interpretation Comments Hct (test code = Hct) 22.8 36.0-48.0 [facility] ClinicTyoyztsRCTZVRLPUB5483-70-44 11:28:00 Test Item Value Reference Range Interpretation Comments Hgb (test code = Hgb) 7.6 12.0-16.0 [facility]2018-12-25 11:48:00 Test Item Value Reference Range Interpretation Comments Magnesium Lvl (test code = Magnesium 2.2 1.8-2.4 Lvl) [facility]bqlkvqTHBWNLLXAKLP8089-95-96 11:48:00 Test Item Value Reference Range Interpretation Comments Potassium Lvl (test code = Potassium 5.4 3.5-5.1 Lvl) [facility] HospitalSoavmdoOBYXXBRUDVGO9289-06-93 11:48:00 Test Item Value Reference Range Interpretation Comments Chloride Lvl (test code = Chloride Lvl) 111 95-109 [facility] HospitalUbltjwtUMLSVTUGAUAH0301-06-27 11:48:00 Test Item Value Reference Range Interpretation Comments CO2 (test code = CO2) 27 24-32 [facility] HospitalGntjadlDNHLBDHSOURA1698-78-57 11:48:00 Test Item Value Reference Range Interpretation Comments Calcium Lvl (test code = Calcium Lvl) 9.2 8.5-10.5 [facility] HospitalNjzlzopARZLAYGLTBXS7092-10-40 11:48:00 Test Item Value Reference Range Interpretation Comments AGAP (test code = AGAP) 9.4 10.0-20.0 [facility] HospitalHjyxdtrFASKFIVEPADA4980-12-42 11:48:00 Test Item Value Reference Range Interpretation Comments eGFR (test code = eGFR) 73 [facility] HospitalWzyzdwkBJFREMOYSYKH2392-93-11 11:48:00 Test Item Value Reference Range Interpretation Comments Creatinine Lvl (test code = Creatinine 0.80 0.50-1.40 Lvl) [facility] HospitalSndrsyfXBGXLNZKBTVI5698-75-41 11:48:00 Test Item Value Reference Range Interpretation Comments Glucose Lvl (test code = Glucose Lvl) 133 70-99 [facility] HospitalFewyostAUNEKLEUYWWF2880-09-16 11:48:00 Test Item Value Reference Range Interpretation Comments BUN (test code = BUN) 14 7-22 [facility] HospitalKsqwthjOSHKPZTPEBVV7311-41-04 11:48:00 Test Item Value Reference Range Interpretation Comments Sodium Lvl (test code = Sodium Lvl) 142 135-145 [facility]2018-12-25 11:48:00 Test Item Value Reference Range Interpretation Comments Magnesium Lvl (test code = Magnesium 2.2 1.8-2.4 Lvl) [facility] HospitalWmrvctlBAYYHXBEVYGC0335-75-78 11:48:00 Test Item Value Reference Range Interpretation Comments Potassium Lvl (test code = Potassium 5.4 3.5-5.1 Lvl) [facility] HospitalTmnkyzxNTGJBNRNKGVV7184-82-74 11:48:00 Test Item Value Reference Range Interpretation Comments Chloride Lvl (test code = Chloride Lvl) 111 95-109 [facility] HospitalXguzejmJJDDWVOKBQTR3062-55-13 11:48:00 Test Item Value Reference Range Interpretation Comments CO2 (test code = CO2) 27 24-32 [facility] HospitalNkmedizMOSUHSHLSRGB2770-69-08 11:48:00 Test Item Value Reference Range Interpretation Comments Calcium Lvl (test code = Calcium Lvl) 9.2 8.5-10.5 [facility] HospitalTvsoogrVHFXDGVBYQDV8930-89-70 11:48:00 Test Item Value Reference Range Interpretation Comments AGAP (test code = AGAP) 9.4 10.0-20.0 [facility] HospitalRpuyexcAFLWJTXKKIZV1743-37-01 11:48:00 Test Item Value Reference Range Interpretation Comments eGFR (test code = eGFR) 73 [facility] HospitalPztifuiSUXTDHYWOMCH7286-56-93 11:48:00 Test Item Value Reference Range Interpretation Comments Creatinine Lvl (test code = Creatinine 0.80 0.50-1.40 Lvl) [facility] HospitalNsvncqnBVWLXNVWZTXJ3194-85-37 11:48:00 Test Item Value Reference Range Interpretation Comments Glucose Lvl (test code = Glucose Lvl) 133 70-99 [facility] HospitalYohixiqPEFKUXMQDVZZ8351-38-58 11:48:00 Test Item Value Reference Range Interpretation Comments BUN (test code = BUN) 14 7-22 [facility] HospitalBmdfktiRNEBTGNGIAEC4894-29-83 11:48:00 Test Item Value Reference Range Interpretation Comments Sodium Lvl (test code = Sodium Lvl) 142 135-145 [facility]2018-12-25 11:48:00 Test Item Value Reference Range Interpretation Comments Magnesium Lvl (test code = Magnesium 2.2 1.8-2.4 Lvl) [facility] HospitalKcvsonhJMCUQIFXHWEH0054-57-78 11:48:00 Test Item Value Reference Range Interpretation Comments Potassium Lvl (test code = Potassium 5.4 3.5-5.1 Lvl) [facility] HospitalPwvmmunPROCGLMMAXKT9011-93-05 11:48:00 Test Item Value Reference Range Interpretation Comments Chloride Lvl (test code = Chloride Lvl) 111 95-109 [facility] HospitalLefpnxoUEPKDNNOCXVP0770-80-56 11:48:00 Test Item Value Reference Range Interpretation Comments CO2 (test code = CO2) 27 24-32 [facility] HospitalTmyaktxVJDRAMQGLRUL8449-86-53 11:48:00 Test Item Value Reference Range Interpretation Comments Calcium Lvl (test code = Calcium Lvl) 9.2 8.5-10.5 [facility] HospitalNhgyaqpTZPDZYSTPYAV6290-19-40 11:48:00 Test Item Value Reference Range Interpretation Comments AGAP (test code = AGAP) 9.4 10.0-20.0 [facility] HospitalDasjatbHRSENNRQJWOR8731-55-39 11:48:00 Test Item Value Reference Range Interpretation Comments eGFR (test code = eGFR) 73 [facility] HospitalDnvxgsqMIWBGWGQYSBA2944-71-49 11:48:00 Test Item Value Reference Range Interpretation Comments Creatinine Lvl (test code = Creatinine 0.80 0.50-1.40 Lvl) [facility] HospitalSoztpjyUIURURSLULNR0124-83-25 11:48:00 Test Item Value Reference Range Interpretation Comments Glucose Lvl (test code = Glucose Lvl) 133 70-99 [facility] HospitalKhxriqrAGHUOZWMWLPT9272-77-25 11:48:00 Test Item Value Reference Range Interpretation Comments BUN (test code = BUN) 14 7-22 [facility] HospitalOulyvbcVJKDEPILSIBU2424-56-39 11:48:00 Test Item Value Reference Range Interpretation Comments Sodium Lvl (test code = Sodium Lvl) 142 135-145 [facility]2018-12-25 08:48:00 Test Item Value Reference Range Interpretation Comments Magnesium Lvl (test code = Magnesium 2.2 1.8-2.4 Lvl) [facility] ClinicSmjkbsmAMMRWNTFMA8436-46-51 08:48:00 Test Item Value Reference Range Interpretation Comments Hgb (test code = Hgb) 8.1 12.0-16.0 [facility] ClinicUuntarmDTEOLVYWEQ6634-09-81 08:48:00 Test Item Value Reference Range Interpretation Comments Hct (test code = Hct) 24.1 36.0-48.0 [facility] ClinicEiovtgsYNYZXNDVLA0806-80-10 08:48:00 Test Item Value Reference Range Interpretation Comments RBC (test code = RBC) 2.45 4.20-5.40 [facility] ClinicSczyncaVNXHWNGMYM2142-85-77 08:48:00 Test Item Value Reference Range Interpretation Comments WBC (test code = WBC) 3.2 3.7-10.4 [facility] ClinicYxjwkhrEYWZCFILJX4896-34-73 08:48:00 Test Item Value Reference Range Interpretation Comments RDW (test code = RDW) 15.9 11.5-14.5 [facility] ClinicNtgmyndDQXXXMMLCH9509-16-07 08:48:00 Test Item Value Reference Range Interpretation Comments Platelet (test code = Platelet) 128 133-450 [facility] ClinicVhynrgpNYEWGNLTHP5159-05-97 08:48:00 Test Item Value Reference Range Interpretation Comments MCHC (test code = MCHC) 33.5 32.0-36.0 [facility] ClinicHdcrxguJVHLPVTKFO4734-16-80 08:48:00 Test Item Value Reference Range Interpretation Comments MCV (test code = MCV) 98.3 80.0-98.0 [facility] ClinicTbvyfmzBLSJRFNUVU0971-06-32 08:48:00 Test Item Value Reference Range Interpretation Comments MCH (test code = MCH) 33.0 pg 27.0-31.0 [facility] ClinicSckncwzZMVIXARIJQ3959-55-33 08:48:00 Test Item Value Reference Range Interpretation Comments MPV (test code = MPV) 8.5 7.4-10.4 [facility] ClinicWirxfcnIDMUEFSOBI4465-38-82 08:48:00 Test Item Value Reference Range Interpretation Comments Monocytes # (test code 0.1 See_Comment [Aut omated message] The = Monocytes #) system which generated this result tra nsmitted reference range : <=0.8. The reference r bharti was not used to int erpret this result as normal/abnormal . [facility] ClinicPhqvmksTQTCGZGKYC0285-64-91 08:48:00 Test Item Value Reference Range Interpretation Comments Segs (test code = Segs) 84.0 45.0-75.0 [facility] ClinicFtqtclzADQURSYJSR2096-63-50 08:48:00 Test Item Value Reference Range Interpretation Comments Monocytes (test code = Monocytes) 3.2 2.0-12.0 [facility] ClinicSkmvksbVBPTNLNUQI5645-44-65 08:48:00 Test Item Value Reference Range Interpretation Comments Neutrophils # (test code = Neutrophils 2.7 1.5-8.1 #) [facility] ClinicPgpltfeBKYBRQSCAA5923-90-41 08:48:00 Test Item Value Reference Range Interpretation Comments Lymphocytes # (test code = Lymphocytes 0.4 1.0-5.5 #) [facility] ClinicArugxbaFQWVLXQTLL2972-04-49 08:48:00 Test Item Value Reference Range Interpretation Comments Basophils (test code = 0.2 See_Comment [Aut omated message] The Basophils) system which ge nerated this result tra nsmitted reference range : <=1.0. The reference r bharti was not used to int erpret this result as normal/abnormal . [facility] ClinicIufmozoCDGRFXCHJD6686-22-36 08:48:00 Test Item Value Reference Range Interpretation Comments Lymphocytes (test code = Lymphocytes) 12.6 20.0-40.0 [facility]2018-12-25 08:48:00 Test Item Value Reference Range Interpretation Comments Magnesium Lvl (test code = Magnesium 2.2 1.8-2.4 Lvl) [facility] ClinicOzgrqukPIYLVJLNIF5512-40-99 08:48:00 Test Item Value Reference Range Interpretation Comments Hgb (test code = Hgb) 8.1 12.0-16.0 [facility] ClinicDlmvwzuHEEPGAWWZL7811-22-02 08:48:00 Test Item Value Reference Range Interpretation Comments Hct (test code = Hct) 24.1 36.0-48.0 [facility] ClinicVlmrezrSTAEXKKLDG4353-93-39 08:48:00 Test Item Value Reference Range Interpretation Comments RBC (test code = RBC) 2.45 4.20-5.40 [facility] ClinicEatryxnDAPFXWWJYC1876-80-72 08:48:00 Test Item Value Reference Range Interpretation Comments WBC (test code = WBC) 3.2 3.7-10.4 [facility] ClinicMmqrzuqJQTIXXEULY2306-87-02 08:48:00 Test Item Value Reference Range Interpretation Comments RDW (test code = RDW) 15.9 11.5-14.5 [facility] ClinicJpnzirtMDZIIAVMML3848-01-41 08:48:00 Test Item Value Reference Range Interpretation Comments Platelet (test code = Platelet) 128 133-450 [facility] ClinicZdcbqcfOMSENRWLPZ1010-67-01 08:48:00 Test Item Value Reference Range Interpretation Comments MCHC (test code = MCHC) 33.5 32.0-36.0 [facility] ClinicAwwwltrWABWNPLMTS2152-62-64 08:48:00 Test Item Value Reference Range Interpretation Comments MCV (test code = MCV) 98.3 80.0-98.0 [facility] ClinicUggtecgIXESZNSLIV4872-74-90 08:48:00 Test Item Value Reference Range Interpretation Comments MCH (test code = MCH) 33.0 pg 27.0-31.0 [facility] ClinicZimdqfsGBDLYZNCOK6843-70-52 08:48:00 Test Item Value Reference Range Interpretation Comments MPV (test code = MPV) 8.5 7.4-10.4 [facility] ClinicLnwdutlIXGVDJHNJC9523-46-71 08:48:00 Test Item Value Reference Range Interpretation Comments Monocytes # (test code 0.1 See_Comment [Aut omated message] The = Monocytes #) system which generated this result tra nsmitted reference range : <=0.8. The reference r bharti was not used to int erpret this result as normal/abnormal . [facility] ClinicCmkpupoAUEORJZQMQ0483-55-43 08:48:00 Test Item Value Reference Range Interpretation Comments Segs (test code = Segs) 84.0 45.0-75.0 [facility] ClinicJuafrwyPLXFZJWBLI8022-75-82 08:48:00 Test Item Value Reference Range Interpretation Comments Monocytes (test code = Monocytes) 3.2 2.0-12.0 [facility] ClinicTqfgnthPZDRLXMTGK7084-29-49 08:48:00 Test Item Value Reference Range Interpretation Comments Neutrophils # (test code = Neutrophils 2.7 1.5-8.1 #) [facility] ClinicSgrpdyiSXIROSNQEP7727-42-92 08:48:00 Test Item Value Reference Range Interpretation Comments Lymphocytes # (test code = Lymphocytes 0.4 1.0-5.5 #) [facility] ClinicLxbsqtlMZISYXHTYL9220-69-40 08:48:00 Test Item Value Reference Range Interpretation Comments Basophils (test code = 0.2 See_Comment [Aut omated message] The Basophils) system which ge nerated this result tra nsmitted reference range : <=1.0. The reference r bharti was not used to int erpret this result as normal/abnormal . [facility] ClinicZhcrfxhAJKMEPGEZL7208-84-43 08:48:00 Test Item Value Reference Range Interpretation Comments Lymphocytes (test code = Lymphocytes) 12.6 20.0-40.0 [facility]2018-12-25 08:48:00 Test Item Value Reference Range Interpretation Comments Magnesium Lvl (test code = Magnesium 2.2 1.8-2.4 Lvl) [facility] ClinicFalcofxWJLLNJWZXA3556-68-73 08:48:00 Test Item Value Reference Range Interpretation Comments Hgb (test code = Hgb) 8.1 12.0-16.0 [facility] ClinicXkfhkktFBGCPQSBCZ2342-39-31 08:48:00 Test Item Value Reference Range Interpretation Comments Hct (test code = Hct) 24.1 36.0-48.0 [facility] ClinicRbvbqigAYMAUHRGHB4180-82-33 08:48:00 Test Item Value Reference Range Interpretation Comments RBC (test code = RBC) 2.45 4.20-5.40 [facility] ClinicXayvehrNRTTLQWDOS9850-13-58 08:48:00 Test Item Value Reference Range Interpretation Comments WBC (test code = WBC) 3.2 3.7-10.4 [facility] ClinicOrabggePTMOZCEAHW2787-81-06 08:48:00 Test Item Value Reference Range Interpretation Comments RDW (test code = RDW) 15.9 11.5-14.5 [facility] ClinicRryseqzPWQDMSZLOW6365-87-15 08:48:00 Test Item Value Reference Range Interpretation Comments Platelet (test code = Platelet) 128 133-450 [facility] ClinicCyuoeldWGAQIFEESI6693-25-56 08:48:00 Test Item Value Reference Range Interpretation Comments MCHC (test code = MCHC) 33.5 32.0-36.0 [facility] ClinicNjjpxxwYASBJBBSHA4252-74-43 08:48:00 Test Item Value Reference Range Interpretation Comments MCV (test code = MCV) 98.3 80.0-98.0 [facility] ClinicMahqoleTBCQXASCZU5827-34-15 08:48:00 Test Item Value Reference Range Interpretation Comments MCH (test code = MCH) 33.0 pg 27.0-31.0 [facility] ClinicTdsgtloALWHYYONPX9900-51-88 08:48:00 Test Item Value Reference Range Interpretation Comments MPV (test code = MPV) 8.5 7.4-10.4 [facility] ClinicYdocjlbSVWTXGWQMC9784-93-88 08:48:00 Test Item Value Reference Range Interpretation Comments Monocytes # (test code 0.1 See_Comment [Aut omated message] The = Monocytes #) system which generated this result tra nsmitted reference range : <=0.8. The reference r bharti was not used to int erpret this result as normal/abnormal . [facility] ClinicEtueiunASBGXDQKAH6878-42-43 08:48:00 Test Item Value Reference Range Interpretation Comments Segs (test code = Segs) 84.0 45.0-75.0 [place] 261268-12-25 08:48:00 Test Item Value Reference Range Interpretation Comments Monocytes (test code = Monocytes) 3.2 2.0-12.0 [facility] ClinicGrhpaktQEOGGWBXHF5089-10-72 08:48:00 Test Item Value Reference Range Interpretation Comments Neutrophils # (test code = Neutrophils 2.7 1.5-8.1 #) [facility] ClinicDrkbztmRRDFBCZQPH7996-62-74 08:48:00 Test Item Value Reference Range Interpretation Comments Lymphocytes # (test code = Lymphocytes 0.4 1.0-5.5 #) [facility] ClinicKqnlatdGEODGLJESK0427-93-59 08:48:00 Test Item Value Reference Range Interpretation Comments Basophils (test code = 0.2 See_Comment [Aut omated message] The Basophils) system which ge nerated this result tra nsmitted reference range : <=1.0. The reference r bharti was not used to int erpret this result as normal/abnormal . [facility] ClinicKxnceckXBPOINGLZH8769-67-49 08:48:00 Test Item Value Reference Range Interpretation Comments Lymphocytes (test code = Lymphocytes) 12.6 20.0-40.0 [facility]2018-12-25 00:52:00 Test Item Value Reference Range Interpretation Comments % Satur Fe (test code = % Satur Fe) 83 12-57 [facility]2018-12-25 00:52:00 Test Item Value Reference Range Interpretation Comments UIBC (test code = UIBC) 30 110-370 [facility]2018-12-25 00:52:00 Test Item Value Reference Range Interpretation Comments TIBC (test code = TIBC) 175 228-428 [facility]2018-12-25 00:52:00 Test Item Value Reference Range Interpretation Comments Iron (test code = Iron) 145 30-160 [facility]2018-12-25 00:52:00 Test Item Value Reference Range Interpretation Comments Folate Lvl (test code = Folate Lvl) 3.9 [facility]2018-12-25 00:52:00 Test Item Value Reference Range Interpretation Comments Ferritin Lvl (test code = Ferritin Lvl) 130 5-204 [facility]2018-12-25 00:52:00 Test Item Value Reference Range Interpretation Comments Vitamin B12 Lvl (test code = Vitamin 9360 182-6111 B12 Lvl) [facility] ClinicUglikqpUZUMMGRMSK6573-95-49 00:52:00 Test Item Value Reference Range Interpretation Comments PB Smear Path Peripheral blood smear (test code = PB examination: Macrocytic Smear Path) anemia with mild anisocytosis. No increase in schistocytes. Unremarkable WBC morphology. Mild thrombocytopenia with presence of occasional large forms. CPT: [address] [facility] HospitalYwawzohBJDWZODMAE7132-66-23 00:52:00 Test Item Value Reference Range Interpretation Comments Hep C Ab (test code = Negative *NA*(09/24/18 Hep C Ab) 6:52 PM) [facility] HospitalJpnclqhNIRWIGOYHJ5843-65-73 00:52:00 Test Item Value Reference Range Interpretation Comments HIV Ag/Ab 4th Gen Negative *NA*(09/24/18 (test code = HIV 6:52 PM) Ag/Ab 4th Gen) [facility]2018-12-25 00:52:00 Test Item Value Reference Range Interpretation Comments % Satur Fe (test code = % Satur Fe) 83 12-57 [facility]2018-12-25 00:52:00 Test Item Value Reference Range Interpretation Comments UIBC (test code = UIBC) 30 110-370 [facility]2018-12-25 00:52:00 Test Item Value Reference Range Interpretation Comments TIBC (test code = TIBC) 175 228-428 [facility]2018-12-25 00:52:00 Test Item Value Reference Range Interpretation Comments Iron (test code = Iron) 145 30-160 [facility]2018-12-25 00:52:00 Test Item Value Reference Range Interpretation Comments Folate Lvl (test code = Folate Lvl) 3.9 [facility]2018-12-25 00:52:00 Test Item Value Reference Range Interpretation Comments Ferritin Lvl (test code = Ferritin Lvl) 130 5-204 [facility]2018-12-25 00:52:00 Test Item Value Reference Range Interpretation Comments Vitamin B12 Lvl (test code = Vitamin 3046 056-8595 B12 Lvl) [facility] ClinicBwnczekPXSUCQDXDR1354-84-66 00:52:00 Test Item Value Reference Range Interpretation Comments PB Smear Path Peripheral blood smear (test code = PB examination: Macrocytic Smear Path) anemia with mild anisocytosis. No increase in schistocytes. Unremarkable WBC morphology. Mild thrombocytopenia with presence of occasional large forms. CPT: [address] [facility] HospitalMbatudeILQHWHLWXZ5035-04-06 00:52:00 Test Item Value Reference Range Interpretation Comments Hep C Ab (test code = Negative *NA*(09/24/18 Hep C Ab) 6:52 PM) [facility] HospitalCocvrfxMYJWKJWINM2253-62-22 00:52:00 Test Item Value Reference Range Interpretation Comments HIV Ag/Ab 4th Gen Negative *NA*(09/24/18 (test code = HIV 6:52 PM) Ag/Ab 4th Gen) [facility]2018-12-25 00:52:00 Test Item Value Reference Range Interpretation Comments % Satur Fe (test code = % Satur Fe) 83 12-57 [facility]2018-12-25 00:52:00 Test Item Value Reference Range Interpretation Comments UIBC (test code = UIBC) 30 110-370 [facility]2018-12-25 00:52:00 Test Item Value Reference Range Interpretation Comments TIBC (test code = TIBC) 175 228-428 [facility]2018-12-25 00:52:00 Test Item Value Reference Range Interpretation Comments Iron (test code = Iron) 145 30-160 [facility]2018-12-25 00:52:00 Test Item Value Reference Range Interpretation Comments Folate Lvl (test code = Folate Lvl) 3.9 [facility]2018-12-25 00:52:00 Test Item Value Reference Range Interpretation Comments Ferritin Lvl (test code = Ferritin Lvl) 130 5-204 [facility]2018-12-25 00:52:00 Test Item Value Reference Range Interpretation Comments Vitamin B12 Lvl (test code = Vitamin 5761 368-1996 B12 Lvl) [facility] ClinicBnjthrmHJJOETWQND4987-81-81 00:52:00 Test Item Value Reference Range Interpretation Comments PB Smear Path Peripheral blood smear (test code = PB examination: Macrocytic Smear Path) anemia with mild anisocytosis. No increase in schistocytes. Unremarkable WBC morphology. Mild thrombocytopenia with presence of occasional large forms. CPT: [address] [facility] HospitalMkxvrzfXUVSWQBWAW3175-84-24 00:52:00 Test Item Value Reference Range Interpretation Comments Hep C Ab (test code = Negative *NA*(09/24/18 Hep C Ab) 6:52 PM) [facility] CenterPzeaohcZJSDRVVMVI7794-30-89 00:52:00 Test Item Value Reference Range Interpretation Comments HIV Ag/Ab 4th Gen Negative *NA*(09/24/18 (test code = HIV 6:52 PM) Ag/Ab 4th Gen) [facility] [place] [facility] [id number] 17:06:00 Test Item Value Reference Range Interpretation Comments RBC product (test code Product available = RBC product) (09/24/18 11:06 AM) [facility] [employer] [id number] 17:06:00 Test Item Value Reference Range Interpretation Comments RBC product (test code Product available = RBC product) (09/24/18 11:06 AM) [facility] [employer] [id number] 17:06:00 Test Item Value Reference Range Interpretation Comments RBC product (test code Product available = RBC product) (09/24/18 11:06 AM) [facility] [employer] [id number] 07:18:00 Test Item Value Reference Range Interpretation Comments eGFR (test code = eGFR) 43 [facility] [employer] [id number] 07:18:00 Test Item Value Reference Range Interpretation Comments Chloride Lvl (test code = Chloride Lvl) 108 95-109 [facility] [employer] [id number] 07:18:00 Test Item Value Reference Range Interpretation Comments CO2 (test code = CO2) 25 24-32 [facility] [employer] [id number] 07:18:00 Test Item Value Reference Range Interpretation Comments Potassium Lvl (test code = Potassium 4.7 3.5-5.1 Lvl) [facility] [employer] [id number] 07:18:00 Test Item Value Reference Range Interpretation Comments Sodium Lvl (test code = Sodium Lvl) 141 135-145 [facility] [employer] [id number] 07:18:00 Test Item Value Reference Range Interpretation Comments AGAP (test code = AGAP) 12.7 10.0-20.0 [facility] [employer] [id number] 07:18:00 Test Item Value Reference Range Interpretation Comments Calcium Lvl (test code = Calcium Lvl) 9.3 8.5-10.5 [facility] [employer] [id number] 07:18:00 Test Item Value Reference Range Interpretation Comments Creatinine Lvl (test code = Creatinine 1.24 0.50-1.40 Lvl) [facility]2018-12-24 07:18:00 Test Item Value Reference Range Interpretation Comments Glucose Lvl (test code = Glucose Lvl) 96 70-99 [facility]2018-12-24 07:18:00 Test Item Value Reference Range Interpretation Comments BUN (test code = BUN) 18 7-22 [facility]2018-12-24 07:18:00 Test Item Value Reference Range Interpretation Comments Phosphorus (test code = Phosphorus) 2.7 2.5-4.5 [facility]2018-12-24 07:18:00 Test Item Value Reference Range Interpretation Comments eGFR (test code = eGFR) 43 [facility]2018-12-24 07:18:00 Test Item Value Reference Range Interpretation Comments Chloride Lvl (test code = Chloride Lvl) 108 95-109 [facility]2018-12-24 07:18:00 Test Item Value Reference Range Interpretation Comments CO2 (test code = CO2) 25 24-32 [facility]2018-12-24 07:18:00 Test Item Value Reference Range Interpretation Comments Potassium Lvl (test code = Potassium 4.7 3.5-5.1 Lvl) [facility]2018-12-24 07:18:00 Test Item Value Reference Range Interpretation Comments Sodium Lvl (test code = Sodium Lvl) 141 135-145 [facility]2018-12-24 07:18:00 Test Item Value Reference Range Interpretation Comments AGAP (test code = AGAP) 12.7 10.0-20.0 [facility]2018-12-24 07:18:00 Test Item Value Reference Range Interpretation Comments Calcium Lvl (test code = Calcium Lvl) 9.3 8.5-10.5 [facility]2018-12-24 07:18:00 Test Item Value Reference Range Interpretation Comments Creatinine Lvl (test code = Creatinine 1.24 0.50-1.40 Lvl) [facility]2018-12-24 07:18:00 Test Item Value Reference Range Interpretation Comments Glucose Lvl (test code = Glucose Lvl) 96 70-99 [facility]2018-12-24 07:18:00 Test Item Value Reference Range Interpretation Comments BUN (test code = BUN) 04-22 [facility]2018-12-24 07:18:00 Test Item Value Reference Range Interpretation Comments Phosphorus (test code = Phosphorus) 2.7 2.5-4.5 [facility]2018-12-24 07:18:00 Test Item Value Reference Range Interpretation Comments eGFR (test code = eGFR) 43 [facility]2018-12-24 07:18:00 Test Item Value Reference Range Interpretation Comments Chloride Lvl (test code = Chloride Lvl) 108 95-109 [facility]2018-12-24 07:18:00 Test Item Value Reference Range Interpretation Comments CO2 (test code = CO2) -32 [facility]2018-12-24 07:18:00 Test Item Value Reference Range Interpretation Comments Potassium Lvl (test code = Potassium 4.7 3.5-5.1 Lvl) [facility]2018-12-24 07:18:00 Test Item Value Reference Range Interpretation Comments Sodium Lvl (test code = Sodium Lvl) 141 135-145 [facility]2018-12-24 07:18:00 Test Item Value Reference Range Interpretation Comments AGAP (test code = AGAP) 12.7 10.0-20.0 [facility]2018-12-24 07:18:00 Test Item Value Reference Range Interpretation Comments Calcium Lvl (test code = Calcium Lvl) 9.3 8.5-10.5 [facility]2018-12-24 07:18:00 Test Item Value Reference Range Interpretation Comments Creatinine Lvl (test code = Creatinine 1.24 0.50-1.40 Lvl) [facility]2018-12-24 07:18:00 Test Item Value Reference Range Interpretation Comments Glucose Lvl (test code = Glucose Lvl) 96 70-99 [facility]2018-12-24 07:18:00 Test Item Value Reference Range Interpretation Comments BUN (test code = BUN) 04-22 [facility]2018-12-24 07:18:00 Test Item Value Reference Range Interpretation Comments Phosphorus (test code = Phosphorus) 2.7 2.5-4.5 [facility]2018-12-23 23:53:00 Test Item Value Reference Range Interpretation Comments Lactic Acid Lvl (test code = Lactic 0.7 0.5-2.2 Acid Lvl) [facility]2018-12-23 23:53:00 Test Item Value Reference Range Interpretation Comments Lactic Acid Lvl (test code = Lactic 0.7 0.5-2.2 Acid Lvl) [facility]2018-12-23 23:53:00 Test Item Value Reference Range Interpretation Comments Lactic Acid Lvl (test code = Lactic 0.7 0.5-2.2 Acid Lvl) [facility]2018-12-23 09:13:00 Test Item Value Reference Range Interpretation Comments Folate Lvl (test code = Folate Lvl) 4.0 [facility]2018-12-23 09:13:00 Test Item Value Reference Range Interpretation Comments Vitamin B12 Lvl (test code = Vitamin [phone] B12 Lvl) [facility] [id number] 09:13:00 Test Item Value Reference Range Interpretation Comments Troponin-I (test code no gt See_Comment [Auto mated message] The = Troponin-I) system which g enerated this result transmit janine reference range : <=0.40. The reference r bharti was not used to interpr et this result as zaida l/abnormal. [facility]2018-12-23 09:13:00 Test Item Value Reference Range Interpretation Comments Phosphorus (test code = Phosphorus) 3.1 2.5-4.5 [facility]2018-12-23 09:13:00 Test Item Value Reference Range Interpretation Comments Vitamin D, 25-OH, Total (test code = 9.3 30.0-100.0 Vitamin D, 25-OH, Total) [facility]2018-12-23 09:13:00 Test Item Value Reference Range Interpretation Comments Folate Lvl (test code = Folate Lvl) 4.0 [facility]2018-12-23 09:13:00 Test Item Value Reference Range Interpretation Comments Vitamin B12 Lvl (test code = Vitamin [phone] B12 Lvl) [facility] [id number] 09:13:00 Test Item Value Reference Range Interpretation Comments Troponin-I (test code no gt See_Comment [Auto mated message] The = Troponin-I) system which g enerated this result transmit janine reference range : <=0.40. The reference r bharti was not used to interpr et this result as zaida l/abnormal. [facility]2018-12-23 09:13:00 Test Item Value Reference Range Interpretation Comments Phosphorus (test code = Phosphorus) 3.1 2.5-4.5 [facility]2018-12-23 09:13:00 Test Item Value Reference Range Interpretation Comments Vitamin D, 25-OH, Total (test code = 9.3 30.0-100.0 Vitamin D, 25-OH, Total) [facility] [id number] 09:13:00 Test Item Value Reference Range Interpretation Comments Folate Lvl (test code = Folate Lvl) 4.0 [facility] [id number] 09:13:00 Test Item Value Reference Range Interpretation Comments Vitamin B12 Lvl (test code = Vitamin [phone] B12 Lvl) [facility] [id number] 09:13:00 Test Item Value Reference Range Interpretation Comments Troponin-I (test code no gt See_Comment [Auto mated message] The = Troponin-I) system which g enerated this result transmit janine reference range : <=0.40. The reference r bharti was not used to interpr et this result as zaida l/abnormal. [facility] Center[facility] [employer] [id number] 09:13:00 Test Item Value Reference Range Interpretation Comments Phosphorus (test code = Phosphorus) 3.1 2.5-4.5 [facility]2018-12-23 09:13:00 Test Item Value Reference Range Interpretation Comments Vitamin D, 25-OH, Total (test code = 9.3 30.0-100.0 Vitamin D, 25-OH, Total) [facility]ervalentinYOGESHMICIN:SUSC:PT:ISOLATE:ORDQN:[id number] 20:17:00 Test Item Value Reference Range Interpretation Comments Culture: Urine (test 50,000 - 100,000 CFU/mL code = Culture: Proteus mirabilis ESBL , Urine) Multi-drug Resistant Organism [facility]NiIN:SUSC:PT:ISOLATE:ORDQN:[id number] 20:17:00 Test Item Value Reference Range Interpretation Comments Proteus mirabilis ESBL Proteus mirabilis ESBL (test code = Proteus mirabilis ESBL) [facility] LisbethannGENTAMICIN:SUSC:PT:ISOLATE:ORDQN:[id number] 20:17:00 Test Item Value Reference Range Interpretation Comments Culture: Urine (test 50,000 - 100,000 CFU/mL code = Culture: Proteus mirabilis ESBL , Urine) Multi-drug Resistant Organism [facility] LisbethannGENTAMICIN:SUSC:PT:ISOLATE:ORDQN:[id number] 20:17:00 Test Item Value Reference Range Interpretation Comments Proteus mirabilis ESBL Proteus mirabilis ESBL (test code = Proteus mirabilis ESBL) [facility] LisbethannGENTAMICIN:SUSC:PT:ISOLATE:ORDQN:[id number] 20:17:00 Test Item Value Reference Range Interpretation Comments Culture: Urine (test 50,000 - 100,000 CFU/mL code = Culture: Proteus mirabilis ESBL , Urine) Multi-drug Resistant Organism [facility] CenterZafarTAMICIN:SUSC:PT:ISOLATE:ORDQN:[id number] 20:17:00 Test Item Value Reference Range Interpretation Comments Proteus mirabilis ESBL Proteus mirabilis ESBL (test code = Proteus mirabilis ESBL) [facility] CenterannCARDIAC [id number] 19:54:00 Test Item Value Reference Range Interpretation Comments Troponin-I (test code no gt See_Comment [Auto mated message] The = Troponin-I) system which g enerated this result transmit janine reference range : <=0.40. The reference r bharti was not used to interpr et this result as zaida l/abnormal. [facility]ann[facility] AND [id number] 19:54:00 Test Item Value Reference Range Interpretation Comments UA Sq Epi (test code = UA Sq Moderate /LPF Epi) [facility] CenterannURINE AND [id number] 19:54:00 Test Item Value Reference Range Interpretation Comments UA WBC (test code = UA WBC) 51-100 /HPF [facility]annUR[facility] AND [id number] 19:54:00 Test Item Value Reference Range Interpretation Comments UA RBC (test code 11-20 /HPF See_Comment [Automate d message] The = UA RBC) system which ge nerated this result tra nsmitted reference range : <=2. The reference range was not used to interpr et this result as normal/abnormal . [facility] AND [id number] 19:54:00 Test Item Value Reference Range Interpretation Comments UA Tr Phos Sofiya (test code = UA Tr Many /HPF Phos Sofiya) [facility] AND [id number] 19:54:00 Test Item Value Reference Range Interpretation Comments UA Bacteria (test code = UA Many /HPF Bacteria) [facility] AND [id number] 19:54:00 Test Item Value Reference Range Interpretation Comments UA pH (test code = UA pH) 7.5 1 5.0-8.0 [facility] AND [id number] 19:54:00 Test Item Value Reference Range Interpretation Comments UA Glucose (test code = UA Glucose) 100 mg/dL [facility] AND [id number] 19:54:00 Test Item Value Reference Range Interpretation Comments UA Protein (test code = UA Protein) 100 mg/dL [facility] AND [id number] 19:54:00 Test Item Value Reference Range Interpretation Comments UA Spec Grav (test code = UA Spec 1.020 1 Grav) [facility] AND [id number] 19:54:00 Test Item Value Reference Range Interpretation Comments UA Turbidity (test code Cloudy *ABN*(09/22/18 = UA Turbidity) 1:54 PM) [facility] AND [id number] 19:54:00 Test Item Value Reference Range Interpretation Comments UA Color (test code = Yellow *NA*(09/22/18 UA Color) 1:54 PM) [facility] AND [id number] 19:54:00 Test Item Value Reference Range Interpretation Comments UA Leuk Est (test code Large *ABN*(09/22/18 = UA Leuk Est) 1:54 PM) [facility] AND [id number] 19:54:00 Test Item Value Reference Range Interpretation Comments UA Nitrite (test code Positive *ABN*(09/22/18 = UA Nitrite) 1:54 PM) [facility] AND [id number] 19:54:00 Test Item Value Reference Range Interpretation Comments UA Blood (test code = Moderate *ABN*(09/22/18 UA Blood) 1:54 PM) [facility] [id number] 19:54:00 Test Item Value Reference Range Interpretation Comments UA Urobilinogen (test code = UA 4.0 0.1-1.0 Urobilinogen) [facility] [id number] 19:54:00 Test Item Value Reference Range Interpretation Comments UA Ketones (test code Negative *NA*(09/22/18 = UA Ketones) 1:54 PM) [facility] [id number] 19:54:00 Test Item Value Reference Range Interpretation Comments UA Bili (test code = Small *ABN*(09/22/18 UA Bili) 1:54 PM) [facility] [id number] 19:54:00 Test Item Value Reference Range Interpretation Comments Troponin-I (test code no gt See_Comment [Auto mated message] The = Troponin-I) system which g enerated this result transmit janine reference range : <=0.40. The reference r bharti was not used to interpr et this result as zaida l/abnormal. [facility] [id number] 19:54:00 Test Item Value Reference Range Interpretation Comments UA Sq Epi (test code = UA Sq Moderate /LPF Epi) [facility] [id number] 19:54:00 Test Item Value Reference Range Interpretation Comments UA WBC (test code = UA WBC) 51-100 /HPF [facility] [id number] 19:54:00 Test Item Value Reference Range Interpretation Comments UA RBC (test code 11-20 /HPF See_Comment [Automate d message] The = UA RBC) system which ge nerated this result tra nsmitted reference range : <=2. The reference range was not used to interpr et this result as normal/abnormal . [facility] [id number] 19:54:00 Test Item Value Reference Range Interpretation Comments UA Tr Phos Sofiya (test code = UA Tr Many /HPF Phos Sofiya) [facility] [id number] 19:54:00 Test Item Value Reference Range Interpretation Comments UA Bacteria (test code = UA Many /HPF Bacteria) [facility] AND [id number] 19:54:00 Test Item Value Reference Range Interpretation Comments UA pH (test code = UA pH) 7.5 1 5.0-8.0 [facility] AND [id number] 19:54:00 Test Item Value Reference Range Interpretation Comments UA Glucose (test code = UA Glucose) 100 mg/dL [facility] AND [id number] 19:54:00 Test Item Value Reference Range Interpretation Comments UA Protein (test code = UA Protein) 100 mg/dL [facility] AND [id number] 19:54:00 Test Item Value Reference Range Interpretation Comments UA Spec Grav (test code = UA Spec 1.020 1 Grav) [facility] AND [id number] 19:54:00 Test Item Value Reference Range Interpretation Comments UA Turbidity (test code Cloudy *ABN*(09/22/18 = UA Turbidity) 1:54 PM) [facility] AND [id number] 19:54:00 Test Item Value Reference Range Interpretation Comments UA Color (test code = Yellow *NA*(09/22/18 UA Color) 1:54 PM) [facility] AND [id number] 19:54:00 Test Item Value Reference Range Interpretation Comments UA Leuk Est (test code Large *ABN*(09/22/18 = UA Leuk Est) 1:54 PM) [facility] AND [id number] 19:54:00 Test Item Value Reference Range Interpretation Comments UA Nitrite (test code Positive *ABN*(09/22/18 = UA Nitrite) 1:54 PM) [facility] AND [id number] 19:54:00 Test Item Value Reference Range Interpretation Comments UA Blood (test code = Moderate *ABN*(09/22/18 UA Blood) 1:54 PM) [facility] AND [id number] 19:54:00 Test Item Value Reference Range Interpretation Comments UA Urobilinogen (test code = UA 4.0 0.1-1.0 Urobilinogen) [facility] AND [id number] 19:54:00 Test Item Value Reference Range Interpretation Comments UA Ketones (test code Negative *NA*(09/22/18 = UA Ketones) 1:54 PM) [facility] AND [id number] 19:54:00 Test Item Value Reference Range Interpretation Comments UA Bili (test code = Small *ABN*(09/22/18 UA Bili) 1:54 PM) [facility] [id number] 19:54:00 Test Item Value Reference Range Interpretation Comments Troponin-I (test code no gt See_Comment [Auto mated message] The = Troponin-I) system which g enerated this result transmit janine reference range : <=0.40. The reference r bharti was not used to interpr et this result as zaida l/abnormal. [facility] [id number] 19:54:00 Test Item Value Reference Range Interpretation Comments UA Sq Epi (test code = UA Sq Moderate /LPF Epi) [facility] AND [id number] 19:54:00 Test Item Value Reference Range Interpretation Comments UA WBC (test code = UA WBC) 51-100 /HPF [facility] AND [id number] 19:54:00 Test Item Value Reference Range Interpretation Comments UA RBC (test code 11-20 /HPF See_Comment [Automate d message] The = UA RBC) system which ge nerated this result tra nsmitted reference range : <=2. The reference range was not used to interpr et this result as normal/abnormal . [facility] AND [id number] 19:54:00 Test Item Value Reference Range Interpretation Comments UA Tr Phos Sofiya (test code = UA Tr Many /HPF Phos Sofiya) [facility] AND [id number] 19:54:00 Test Item Value Reference Range Interpretation Comments UA Bacteria (test code = UA Many /HPF Bacteria) [facility] [id number] 19:54:00 Test Item Value Reference Range Interpretation Comments UA pH (test code = UA pH) 7.5 1 5.0-8.0 [facility] AND [id number] 19:54:00 Test Item Value Reference Range Interpretation Comments UA Glucose (test code = UA Glucose) 100 mg/dL [facility] AND [id number] 19:54:00 Test Item Value Reference Range Interpretation Comments UA Protein (test code = UA Protein) 100 mg/dL [facility] AND [id number] 19:54:00 Test Item Value Reference Range Interpretation Comments UA Spec Grav (test code = UA Spec 1.020 1 Grav) [facility] AND [id number] 19:54:00 Test Item Value Reference Range Interpretation Comments UA Turbidity (test code Cloudy *ABN*(09/22/18 = UA Turbidity) 1:54 PM) [facility] AND [id number] 19:54:00 Test Item Value Reference Range Interpretation Comments UA Color (test code = Yellow *NA*(09/22/18 UA Color) 1:54 PM) [facility] AND [id number] 19:54:00 Test Item Value Reference Range Interpretation Comments UA Leuk Est (test code Large *ABN*(09/22/18 = UA Leuk Est) 1:54 PM) [facility] AND [id number] 19:54:00 Test Item Value Reference Range Interpretation Comments UA Nitrite (test code Positive *ABN*(09/22/18 = UA Nitrite) 1:54 PM) [facility] AND [id number] 19:54:00 Test Item Value Reference Range Interpretation Comments UA Blood (test code = Moderate *ABN*(09/22/18 UA Blood) 1:54 PM) [facility] AND [id number] 19:54:00 Test Item Value Reference Range Interpretation Comments UA Urobilinogen (test code = UA 4.0 0.1-1.0 Urobilinogen) [facility] AND [id number] 19:54:00 Test Item Value Reference Range Interpretation Comments UA Ketones (test code Negative *NA*(09/22/18 = UA Ketones) 1:54 PM) [facility] AND [id number] 19:54:00 Test Item Value Reference Range Interpretation Comments UA Bili (test code = Small *ABN*(09/22/18 UA Bili) 1:54 PM) [facility] [employer] BANK [id number] 08:34:00 Test Item Value Reference Range Interpretation Comments ABO/Rh (test code = ABO/Rh) O NEG [facility] [employer] BANK [id number] 08:34:00 Test Item Value Reference Range Interpretation Comments Antibody Scrn (test Negative (09/22/18 code = Antibody Scrn) 2:34 AM) [id number] 08:34:00 Test Item Value Reference Range Interpretation Comments Eosinophils # (test code 0.1 See_Comment [A utomated message] The = Eosinophils #) system [employer] generated this result tra nsmitted reference range : <=0.5. The reference r bharti was not used to int erpret this result as normal/abnormal . [facility] [id number] 08:34:00 Test Item Value Reference Range Interpretation Comments Macrocyte (test code = 1+ *ABN*(09/22/18 Macrocyte) 2:34 AM) [facility] [id number] 08:34:00 Test Item Value Reference Range Interpretation Comments Eosinophils (test code = 1.1 See_Comment [A utomated message] The Eosinophils) system which ge nerated this result tra nsmitted reference range : <=4.0. The reference r bharti was not used to int erpret this result as normal/abnormal . [facility] [id number] 08:34:00 Test Item Value Reference Range Interpretation Comments ABO/Rh (test code = ABO/Rh) O NEG [facility] [id number] 08:34:00 Test Item Value Reference Range Interpretation Comments Antibody Scrn (test Negative (09/22/18 code = Antibody Scrn) 2:34 AM) [facility] [id number] 08:34:00 Test Item Value Reference Range Interpretation Comments Eosinophils # (test code 0.1 See_Comment [A utomated message] The = Eosinophils #) system [employer] generated this result tra nsmitted reference range : <=0.5. The reference r bharti was not used to int erpret this result as normal/abnormal . [facility] [id number] 08:34:00 Test Item Value Reference Range Interpretation Comments Macrocyte (test code = 1+ *ABN*(09/22/18 Macrocyte) 2:34 AM) [facility] [id number] 08:34:00 Test Item Value Reference Range Interpretation Comments Eosinophils (test code = 1.1 See_Comment [A utomated message] The Eosinophils) system which ge nerated this result tra nsmitted reference range : <=4.0. The reference r bharti was not used to int erpret this result as normal/abnormal . [facility] [id number] 08:34:00 Test Item Value Reference Range Interpretation Comments ABO/Rh (test code = ABO/Rh) O NEG [facility] [id number] 08:34:00 Test Item Value Reference Range Interpretation Comments Antibody Scrn (test Negative (09/22/18 code = Antibody Scrn) 2:34 AM) [id number] 08:34:00 Test Item Value Reference Range Interpretation Comments Eosinophils # (test code 0.1 See_Comment [A utomated message] The = Eosinophils #) system whic h generated this result tra nsmitted reference range : <=0.5. The reference r bharti was not used to int erpret this result as normal/abnormal . [facility] [id number] 08:34:00 Test Item Value Reference Range Interpretation Comments Macrocyte (test code = 1+ *ABN*(09/22/18 Macrocyte) 2:34 AM) [facility] [id number] 08:34:00 Test Item Value Reference Range Interpretation Comments Eosinophils (test code = 1.1 See_Comment [A utomated message] The Eosinophils) system which ge nerated this result tra nsmitted reference range : <=4.0. The reference r bharti was not used to int erpret this result as normal/abnormal . [facility]CREAT[facility] [id number] 17:53:00 Test Item Value Reference Range Interpretation Comments CREATININE CLEARANCE 47.2 mL/min 70.0-140.0 L ([facility]) (test code = 357) VOLUME, TOTAL ([facility]) 1050 ml (test code = 1457) CREATININE URINE 78.9 mg/dL ([facility]) (test code = 375) [id number] Linda Pitts MD ([facility]) (test code = (electronic signature) 6827) POCT-GLUCOSE [id number] 11:37:00 Test Item Value Reference Range Interpretation Comments POC-GLUCOSE METER 128 mg/dL 70-110 H TESTED AT [facility] 67 ([facility]) (test code = [place] 1538) [address] URINE [id number] 11:02:00 Test Item Value Reference Range Interpretation Comments CULTURE ([facility]) (test <10,000 col/mL skin code = 1095) jayshree POCT-GLUCOSE [id number] 06:28:00 Test Item Value Reference Range Interpretation Comments POC-GLUCOSE METER 101 mg/dL 70-110 TESTED AT [place] [address] ([facility]) (test code = [facility] S[place]on [facility] 1538) [address] POCT-GLUCOSE [id number] 00:46:00 Test Item Value Reference Range Interpretation Comments POC-GLUCOSE METER 130 mg/dL 70-110 H TESTED AT [place] [address] ([facility]) (test code = [facility] [place] [facility] 1538) [address] POCT-GLUCOSE [id number] 20:21:00 Test Item Value Reference Range Interpretation Comments POC-GLUCOSE METER 133 mg/dL 70-110 H TESTED AT [place] [address] ([facility]) (test code = [facility] 1538) [address] [id number] 18:44:00 Test Item Value Reference Range Interpretation Comments CREATININE ([facility]) 0.82 mg/dL 0.57-1.25 (test code = 358) EGFR ([facility]) (test 69 mL/min/1.73 ESTIMA JANINE GFR IS code = 1092) sq m NOT ACCURATE CREATININE CLEARANCE IN PREDICTING GLOMERULAR FILTRATION RATE . ESTIMATED GFR I S NOT APPLICABLE FOR DIALYSIS PATIEN TS. POCT-GLUCOSE [id number] 17:11:00 Test Item Value Reference Range Interpretation Comments POC-GLUCOSE METER 118 mg/dL 70-110 H TESTED AT [place] [address] ([facility]) (test code = [place] [facility] 1538) [address] POCT-GLUCOSE [id number] 15:29:00 Test Item Value Reference Range Interpretation Comments POC-GLUCOSE METER 63 mg/dL 70-110 L Notified Simeon Castellon MD/TESTED AT ([facility]) (test code = [place] [address] [place] [address]) [facility] [address] POCT-GLUCOSE [id number] 15:03:00 Test Item Value Reference Range Interpretation Comments POC-GLUCOSE METER 51 mg/dL 70-110 L Notified Simeon Castellon MD/TESTED AT ([facility]) (test code = [place] [address] [address] 1538) [place] [address] POCT-GLUCOSE [id number] 11:28:00 Test Item Value Reference Range Interpretation Comments POC-GLUCOSE METER 75 mg/dL 70-110 TESTED AT [place] [id number] (BEAKER) (test code = JOSEPH Hendrix [facility] [address]38) CALCIUM, 24 HOUR [id number] 09:19:00 Test Item Value Reference Range Interpretation Comments VOLUME, TOTAL (BEAKER) (test 1050 ml code = 1457) CALCIUM URINE (BEAKER) (test 15.4 mg/dL code = 396) CALCIUM, 24HR URINE (BEAKER) 162 mg/24 Hr 50-300 (test code = 1520) VITAMIN D, 45-[id number] 07:18:00 Test Item Value Reference Range Interpretation Comments VITAMIN D 25-OH (BEAKER) (test code = < ng/mL 13.0-47.8 L 2764) CBC W/PLT COUNT & AUTO [id number] 07:04:00 Test Item Value Reference Range Interpretation [...] 0.00-0.20 (test code = 417) 0.00BASIC METABOLIC [id number] 07:01:00 Test Item Value Reference Range Interpretation [...] S NOT APPLICABLE FOR DIALYSIS PATIEN TS. [id number] 06:57:00 Test Item Value Reference Range Interpretation Comments PHOSPHORUS (BEAKER) (test code = 3.0 mg/dL 2.3-4.7 604) [id number] 06:57:00 Test Item Value Reference Range Interpretation Comments MAGNESIUM (BEAKER) (test code = 2.2 mg/dL 1.6-2.6 627) [id number] 06:34:00 Test Item Value Reference Range Interpretation Comments ALBUMIN (BEAKER) (test code = 1145) 3.8 g/dL 3.5-5.0 POCT-GLUCOSE [id number] 06:32:00 Test Item Value Reference Range Interpretation Comments POC-GLUCOSE METER 104 mg/dL 70-110 TESTED AT [facility] 67 (BEAKER) (test code = [facility] [place] [facility] 1538) [address] POCT-GLUCOSE [id number] 23:41:00 Test Item Value Reference Range Interpretation Comments POC-GLUCOSE METER 108 mg/dL 70-110 TESTED AT [place] [address] (BEAKER) (test code = [facility] [place] [facility] 1538) [address] POCT-GLUCOSE [id number] 17:58:00 Test Item Value Reference Range Interpretation Comments POC-GLUCOSE METER 112 mg/dL 70-110 H TESTED AT [place] [address] (BEAKER) (test code = [facility] 1538) [address] URINALYSIS W/ REFLEX URINE [id number] 16:02:00 Test Item Value Reference Range Interpretation [...] 514) SOURCE(BEAKER) (test code = 2795) POCT-GLUCOSE [id number] 12:49:00 Test Item Value Reference Range Interpretation Comments POC-GLUCOSE METER 79 mg/dL 70-110 TESTED AT [facility] 6720 (BEAKER) (test code = JOSEPH Hendrix [facility] [id number] 3457) CBC W/PLT COUNT & AUTO [id number] 09:59:00 Test Item Value Reference Range Interpretation [...] (BEAKER) (test code = Normal 762) POCT-GLUCOSE [id number] 06:20:00 Test Item Value Reference Range Interpretation Comments POC-GLUCOSE METER 140 mg/dL 70-110 H TESTED AT [facility] 6720 (BEAKER) (test code = [place] 1538) [address] [id number] 06:11:00 Test Item Value Reference Range Interpretation Comments ALBUMIN (BEAKER) 3.2 g/dL 3.5-5.0 L Specimen mo derately (test code = 1145) hemolyzed BASIC METABOLIC [id number] 06:00:00 Test Item Value Reference Range Interpretation [...] 358) GLUCOSE RANDOM 145 mg/dL 70-105 H (AKER) (test code = 652) CALCIUM (BEAKER) 11.6 mg/dL 8.4-10.2 H (test code = 697) EGFR ([facility]) (test 63 mL/min/1.73 ESTIMA JANINE GFR IS code = 1092) sq m NOT ACCURATE CREATININE CLEARANCE IN PREDICTING GLOMERULAR FILTRATION RATE . ESTIMATED GFR I S NOT APPLICABLE FOR DIALYSIS PATIEN TS. [id number] 05:59:00 Test Item Value Reference Range Interpretation Comments PHOSPHORUS (BEAKER) (test code = 3.1 mg/dL 2.3-4.7 604) [id number] 05:59:00 Test Item Value Reference Range Interpretation Comments MAGNESIUM (BEAKER) (test code = 2.0 mg/dL 1.6-2.6 627) POCT-GLUCOSE [id number] 23:38:00 Test Item Value Reference Range Interpretation Comments POC-GLUCOSE METER 156 mg/dL 70-110 H TESTED AT [place] [address] ([facility]) (test code = [facility] 1538) [address] POCT-GLUCOSE [id number] 18:18:00 Test Item Value Reference Range Interpretation Comments POC-GLUCOSE METER 110 mg/dL 70-110 TESTED AT [place] [address] ([facility]) (test code = [facility] 1538) [address] POCT-GLUCOSE [id number] 11:44:00 Test Item Value Reference Range Interpretation Comments POC-GLUCOSE METER 79 mg/dL 70-110 TESTED AT [place] [address] ([facility]) (test code = [facility] [address] 1538) CBC W/PLT COUNT & AUTO [id number] 11:03:00 Test Item Value Reference Range Interpretation Comments WHITE BLOOD CELL COUNT ([facility]) 13.9 K/ L 4.0-10.0 H (test code = 775) RED BLOOD CELL COUNT ([facility]) 3.86 M/ L 4.00-5.00 L (test code = 761) HEMOGLOBIN (AKER) (test code = 12.4 GM/DL 12.0-15.0 410) [...] (BEAKER) (test code = Normal 762) POCT-GLUCOSE [id number] 06:21:00 Test Item Value Reference Range Interpretation Comments POC-GLUCOSE METER 152 mg/dL 70-110 H TESTED AT [facility] 6720 (BEBANNER) (test code = [facility] 1537) [address] BASIC METABOLIC [id number] 06:04:00 Test Item Value Reference Range Interpretation [...] S NOT APPLICABLE FOR DIALYSIS PATIEN TS. [id number] 05:56:00 Test Item Value Reference Range Interpretation Comments PHOSPHORUS (BEAKER) (test code = 3.5 mg/dL 2.3-4.7 604) [id number] 05:56:00 Test Item Value Reference Range Interpretation Comments MAGNESIUM (BEAKER) (test code = 1.9 mg/dL 1.6-2.6 627) POCT-GLUCOSE [id number] 23:51:00 Test Item Value Reference Range Interpretation Comments POC-GLUCOSE METER 168 mg/dL 70-110 H TESTED AT [facility] 6720 (BEAKER) (test code = [facility] 1532) [address] POCT-GLUCOSE [id number] 18:34:00 Test Item Value Reference Range Interpretation Comments POC-GLUCOSE METER 80 mg/dL 70-110 TESTED AT [facility] 6720 (BEBANNER) (test code = [facility] [address] 1538) POCT-GLUCOSE [id number] 16:09:00 Test Item Value Reference Range Interpretation Comments POC-GLUCOSE METER 83 mg/dL 70-110 TESTED AT [place] [address] ([facility]) (test code = JOSEPH Hendrix [facility] [address] 1538) POCT-GLUCOSE [id number] 16:09:00 Test Item Value Reference Range Interpretation Comments POC-GLUCOSE METER 41 mg/dL 70-110 L TESTED AT [place] [address] ([facility]) (test code = JOSEPH Hendrix [facility] [address] 1538) POCT-GLUCOSE [id number] 15:20:00 Test Item Value Reference Range Interpretation Comments POC-GLUCOSE METER 44 mg/dL 70-110 L TESTED AT [place] [address] ([facility]) (test code = [facility] [place] [facility] [address] 1538) POCT-GLUCOSE [id number] 08:27:00 Test Item Value Reference Range Interpretation Comments POC-GLUCOSE METER 114 mg/dL 70-110 H TESTED AT [place] [address] ([facility]) (test code = [facility] [place] [facility] 1538) [address] POCT-GLUCOSE [id number] 08:27:00 Test Item Value Reference Range Interpretation Comments POC-GLUCOSE METER 35 mg/dL 70-110 LL TESTED AT [place] [address] ([facility]) (test code = [facility] [place] [facility] [address] 1538) CBC W/PLT COUNT & AUTO [id number] 07:04:00 Test Item Value Reference Range Interpretation Comments WHITE BLOOD CELL COUNT ([facility]) 8.2 K/ L 4.0-10.0 (test code = 775) RED BLOOD CELL COUNT ([facility]) 4.05 M/ L 4.00-5.00 (test code = 761) HEMOGLOBIN ([facility]) (test code = 12.8 GM/DL 12.0-15.0 410) HEMATOCRIT ([facility]) (test code = 39.2 % 36.0-45.0 411) MEAN CORPUSCULAR VOLUME ([facility]) 97.0 fL 82.0-99.0 (test code = 753) MEAN CORPUSCULAR HEMOGLOBIN 31.7 pg 27.0-33.0 ([facility]) (test code = 751) MEAN CORPUSCULAR HEMOGLOBIN [...] L 0.00-0.20 (test code = 417) 0.00POCT-GLUCOSE [id number] 06:20:00 Test Item Value Reference Range Interpretation Comments POC-GLUCOSE METER 62 mg/dL 70-110 L Notified R Ravinder COTO/TESTED AT (BEAKER) (test code = [facility] 67[address] [place] 1538) [facility] [address] BASIC METABOLIC [id number] 06:13:00 Test Item Value Reference Range Interpretation [...] S NOT APPLICABLE FOR DIALYSIS PATIEN TS. [id number] 06:10:00 Test Item Value Reference Range Interpretation Comments PHOSPHORUS (BEAK[facility]) (test code = 3.5 mg/dL 2.3-4.7 604) [id number] 06:10:00 Test Item Value Reference Range Interpretation Comments MAGNESIUM (BEAKER) (test code = 2.2 mg/dL 1.6-2.6 627) PROTHROMBIN [id number] 06:05:00 Test Item Value Reference Range Interpretation Comments PROTIME (BEAKER) (test code = 15.5 seconds 11.7-14.7 H 759) INR (BEAKER) (test code = 370) 1.2 <=5.9 RECOMMENDED COUMADIN/WARFARIN INR THERAPY RANGESSTANDARD DOSE: 2.0 - 3.0 Includes: PROPHYLAXIS for venous thrombosis, systemic embolization; TREATMENT for venous thrombosis and/or pulmonary embolus.HIGH RISK: Target INR is 2.5-3.5 for patients with mechanical heart valves.POCT-GLUCOSE [id number] 23:58:00 Test Item Value Reference Range Interpretation Comments POC-GLUCOSE METER 108 mg/dL 70-110 TESTED AT [facility] 6720 (SynchrisBANNER) (test code = [facility] [place] 1538) [address] POCT-GLUCOSE [id number] 18:02:00 Test Item Value Reference Range Interpretation Comments POC-GLUCOSE METER 126 mg/dL 70-110 H TESTED AT [facility] 6720 (DadShed) (test code = [facility] [place] 1538) [address] PTH, [id number] 14:50:00 Test Item Value Reference Range Interpretation Comments PARATHYROID HORMONE INTACT 274.9 pg/mL 8.5-72.5 H (BEAKER) (test code = 577) Effective 08/19/2014: Reference Range ChangeNew: 8.5-72.5 Previous: 15.0-90.0 POCT-GLUCOSE [id number] 13:33:00 Test Item Value Reference Range Interpretation Comments POC-GLUCOSE METER 145 mg/dL 70-110 H TESTED AT [facility] 6720 (BEAKER) (test code = [facility] [place] 1538) [address] CBC W/PLT COUNT & AUTO [id number] 08:35:00 Test Item Value Reference Range Interpretation [...] (BEAKER) (test code = 1351) BASIC METABOLIC [id number] 06:00:00 Test Item Value Reference Range Interpretation [...] S NOT APPLICABLE FOR DIALYSIS PATIEN TS. [id number] 05:59:00 Test Item Value Reference Range Interpretation Comments MAGNESIUM (BEAKER) 2.4 mg/dL 1.6-2.6 Specimen slightly (test code = 627) hemolyzed [id number] 05:59:00 Test Item Value Reference Range Interpretation Comments PHOSPHORUS (BEAKER) 3.1 mg/dL 2.3-4.7 Specimen slightly (test code = 604) hemolyzed POCT-GLUCOSE [id number] 05:32:00 Test Item Value Reference Range Interpretation Comments POC-GLUCOSE METER 114 mg/dL 70-110 H TESTED AT [place] [address] ([facility]) (test code = [facility] 1538) [address] POCT-GLUCOSE [id number] 00:02:00 Test Item Value Reference Range Interpretation Comments POC-GLUCOSE METER 106 mg/dL 70-110 TESTED AT [place] [address] ([facility]) (test code = [facility] 1538) [address] POCT-GLUCOSE [id number] 18:28:00 Test Item Value Reference Range Interpretation Comments POC-GLUCOSE METER 150 mg/dL 70-110 H TESTED AT [place] [address] ([facility]) (test code = [facility] 1538) [address] POCT-GLUCOSE [id number] 12:31:00 Test Item Value Reference Range Interpretation Comments POC-GLUCOSE METER 152 mg/dL 70-110 H TESTED AT [place] [address] ([facility]) (test code = [facility] 1538) [address] POCT-GLUCOSE [id number] 05:41:00 Test Item Value Reference Range Interpretation Comments POC-GLUCOSE METER 120 mg/dL 70-110 H TESTED AT [place] [address] ([facility]) (test code = [facility] 1538) [address] CBC W/PLT COUNT & AUTO [id number] 05:00:00 Test Item Value Reference Range Interpretation Comments WHITE BLOOD CELL COUNT (AKER) 8.8 K/ L 4.0-10.0 (test code = 775) RED BLOOD CELL COUNT (AKER) 3.76 M/ L 4.00-5.00 L (test code = 761) HEMOGLOBIN (BEAKER) (test code = 11.3 GM/DL 12.0-15.0 L 410) HEMATOCRIT ([facility]) (test code = 35.7 % 36.0-45.0 L 411) MEAN CORPUSCULAR VOLUME ([facility]) 95.1 fL 82.0-99.0 (test code = [...] 0.00-0.20 (test code = 417) 0.00BASIC METABOLIC [id number] 04:58:00 Test Item Value Reference Range Interpretation [...] S NOT APPLICABLE FOR DIALYSIS PATIEN TS. [id number] 04:57:00 Test Item Value Reference Range Interpretation Comments MAGNESIUM (BEAKER) 2.5 mg/dL 1.6-2.6 Specimen slightly (test code = 627) hemolyzed [id number] 04:57:00 Test Item Value Reference Range Interpretation Comments PHOSPHORUS (BEAKER) 3.3 mg/dL 2.3-4.7 Specimen slightly (test code = 604) hemolyzed POCT-GLUCOSE [id number] 00:44:00 Test Item Value Reference Range Interpretation Comments POC-GLUCOSE METER 142 mg/dL 70-110 H TESTED AT [place] [address] ([facility]) (test code = [facility] 1538) [address] POCT-GLUCOSE [id number] 18:34:00 Test Item Value Reference Range Interpretation Comments POC-GLUCOSE METER 115 mg/dL 70-110 H TESTED AT [place] [address] ([facility]) (test code = [facility] [facility] 1538) [address] POCT-GLUCOSE [id number] 12:21:00 Test Item Value Reference Range Interpretation Comments POC-GLUCOSE METER 123 mg/dL 70-110 H TESTED AT [place] [address] ([facility]) (test code = [facility] 1538) [address] URINE [id number] 10:42:00 Test Item Value Reference Range Interpretation Comments CULTURE (BEAKER) (test code = 1095) No growth [id number] 06:53:00 Test Item Value Reference Range Interpretation Comments POTASSIUM (BEAKER) (test code = 3.6 meq/L 3.5-5.1 379) Check Serum Potassium level 2 hours after oral potassium replacement completed or 30 min after intravenous potassium replacement.[id number] 06:53:00 Test Item Value Reference Range Interpretation Comments MAGNESIUM (BEAKER) (test code = 2.7 mg/dL 1.6-2.6 H 627) Check Serum Potassium level 2 hours after oral potassium replacement completed or 30 min after intravenous potassium replacement.POCT-GLUCOSE [id number] 06:27:00 Test Item Value Reference Range Interpretation Comments POC-GLUCOSE METER 113 mg/dL 70-110 H TESTED AT [facility] 6720 (BEAKER) (test code = [facility] [place] 1538) [address] BASIC METABOLIC [id number] 02:30:00 Test Item Value Reference Range Interpretation [...] S NOT APPLICABLE FOR DIALYSIS PATIEN TS. [id number] 02:29:00 Test Item Value Reference Range Interpretation Comments PHOSPHORUS (BEAKER) (test code = 3.5 mg/dL 2.3-4.7 604) [id number] 02:29:00 Test Item Value Reference Range Interpretation Comments MAGNESIUM (BEAKER) (test code = 2.2 mg/dL 1.6-2.6 627) [id number] 02:29:00 Test Item Value Reference Range Interpretation Comments SODIUM (BEAKER) (test code = 381) 139 meq/L 136-145 CBC W/PLT COUNT & AUTO [id number] 02:21:00 Test Item Value Reference Range Interpretation [...] L 0.00-0.20 (test code = 417) 0.00POCT-GLUCOSE [id number] 00:44:00 Test Item Value Reference Range Interpretation Comments POC-GLUCOSE METER 121 mg/dL 70-110 H TESTED AT [place] [address] (BEAKER) (test code = [facility] [place] 1538) [address] [id number] 20:34:00 Test Item Value Reference Range Interpretation Comments SODIUM (BEAKER) (test code = 381) 138 meq/L 136-145 HEPATIC FUNCTION [id number] 20:34:00 Test Item Value Reference Range Interpretation [...] (test code = 15 U/L 6-55 347) [id number] 20:25:00 Test Item Value Reference Range Interpretation Comments AMMONIA (BEAKER) (test code = 348) 30 mol/L 18-72 POCT-GLUCOSE [id number] 19:58:00 Test Item Value Reference Range Interpretation Comments POC-GLUCOSE METER 125 mg/dL 70-110 H TESTED AT [place] [address] (BEAKER) (test code = [facility] 1538) [address] [id number] 14:30:00 Test Item Value Reference Range Interpretation Comments RPR SCREEN (BEAKER) (test code = Nonreactive Nonreactive 420) [id number] 13:35:00 Test Item Value Reference Range Interpretation Comments SODIUM (BEAKER) (test code = 381) 136 meq/L 136-145 [id number] 13:23:00 Test Item Value Reference Range Interpretation Comments CORTISOL, TOTAL (BEAKER) (test 11.7 ug/dL 3.7-19.4 code = 5995) POCT-GLUCOSE [id number] 13:22:00 Test Item Value Reference Range Interpretation Comments POC-GLUCOSE METER 117 mg/dL 70-110 H TESTED AT [facility] 6720 (BEAKER) (test code = [facility] [place] 1538) [address] B-TYPE NATRIURETIC FACTOR (BNP)2016-12-26 11:55:00 Test Item Value Reference Range Interpretation Comments B-TYPE NATRIURETIC PEPTIDE (BEAKER) 115 pg/mL 0-100 H (test code = 700) [id number] 11:43:00 Test Item Value Reference Range Interpretation Comments MAGNESIUM (BEAKER) 2.5 mg/dL 1.6-2.6 Specimen slightly (test code = 627) hemolyzed OSMOLALITY, [id number] 04:32:00 Test Item Value Reference Range Interpretation Comments OSMOLALITY, SERUM (BEAKER) (test 303 mOsm/kg 275-295 H code = 615) LIPID [id number] 04:04:00 Test Item Value Reference Range Interpretation [...] 130-159 High 160-189 Very High >=190 Fasting [id number] 04:03:00 Test Item Value Reference Range Interpretation Comments PHOSPHORUS (BEAKER) (test code = 3.2 mg/dL 2.3-4.7 604) BASIC METABOLIC [id number] 04:03:00 Test Item Value Reference Range Interpretation [...] PATIEN TS. CBC W/PLT COUNT & AUTO [id number] 03:43:00 Test Item Value Reference Range Interpretation [...] K/ L 0.00-0.20 (test code = 417) [id number] 01:55:00 Test Item Value Reference Range Interpretation Comments POTASSIUM (BEAKER) (test code = 3.2 meq/L 3.5-5.1 L 379) [id number] 01:55:00 Test Item Value Reference Range Interpretation Comments MAGNESIUM (BEAKER) (test code = 1.7 mg/dL 1.6-2.6 627) TROPONIN [id number] 01:21:00 Test Item Value Reference Range Interpretation [...] acidosis, acute neurological disease, and persistent tachyarrhythmia.POCT-GLUCOSE [id number] 01:03:00 Test Item Value Reference Range Interpretation Comments POC-GLUCOSE METER 161 mg/dL 70-110 H TESTED AT [facility] 6720 (BEAKER) (test code = [facility] [place] 1538) [address] POCT-GLUCOSE [id number] 00:22:00 Test Item Value Reference Range Interpretation Comments POC-GLUCOSE METER 62 mg/dL 70-110 L Notified Simeon Castellon MD/TESTED AT ([facility]) (test code = [facility] [address] [place] 1538) [place] [address] HEMOGLOBIN [id number] 22:44:00 Test Item Value Reference Range Interpretation Comments HEMOGLOBIN A1C (BEAKER) (test code = 5.0 % 4.3-6.1 368) TSH/FREE T4 IF [id number] 21:14:00 Test Item Value Reference Range Interpretation Comments THYROID STIMULATING HORMONE 2.66 uIU/mL 0.35-4.94 (BEAKER) (test code = 772) VITAMIN B12 AND [id number] 21:14:00 Test Item Value Reference Range Interpretation Comments VITAMIN B12 (BEAKER) (test code = 325 pg/mL 213-816 774) FOLATE (BEAKER) (test code = 362) 11.9 ng/mL >=7.0 Effective 08/19/2014: Folate Reference Range ChangeNew: >=7.0 Previous: >=5.4CBC W/PLT COUNT & AUTO [id number] 19:39:00 Test Item Value Reference Range Interpretation [...] L 0.00-0.20 (test code = 417) 0.00TROPONIN [id number] 19:31:00 Test Item Value Reference Range Interpretation [...] pg/mL 0-100 (test code = 700) LIPID [id number] 19:24:00 Test Item Value Reference Range Interpretation [...] 130-159 High 160-189 Very High >=190BASIC METABOLIC [id number] 19:24:00 Test Item Value Reference Range Interpretation [...] NOT APPLICABLE FOR DIALYSIS PATIEN TS. PROTHROMBIN [id number] 19:17:00 Test Item Value Reference Range Interpretation Comments PROTIME (BEAKER) (test code = 14.1 seconds 11.7-14.7 759) INR (BEAKER) (test code = 370) 1.1 <=5.9 RECOMMENDED COUMADIN/WARFARIN INR THERAPY RANGESSTANDARD DOSE: 2.0 - 3.0 Includes: PROPHYLAXIS for venous thrombosis, systemic embolization; TREATMENT for venous thrombosis and/or pulmonary embolus.HIGH RISK: Target INR is 2.5-3.5 for patients with mechanical heart valves.[id number] 19:17:00 Test Item Value Reference Range Interpretation Comments PARTIAL THROMBOPLASTIN TIME 24.9 seconds 22.5-36.0 (BEAKER) (test code = 760) URINALYSIS W/ [id number] 19:15:00 Test Item Value Reference Range Interpretation [...] 516) SOURCE(BEAKER) (test code = Urine, [place] 7636) POCT-GLUCOSE [id number] 18:33:00 Test Item Value Reference Range Interpretation Comments POC-GLUCOSE METER 75 mg/dL 70-110 TESTED AT [facility] 6720 (BEAKER) (test code = [place] [address] 4468)
[2022-10-22] MEDS ORDERED: ACETAMINOPHEN 325 MG TABLET ONE (10:11)
[2022-10-22] MEDS ORDERED: MAGNESIUM SULFATE 1 gm IVPB 1 GM/100 ML BAG IV ONE (10:11)
[2022-10-22 10:12] LABS: Absolute Lymphocytes (CBC) 2.5 K/uL (0.7-4.9); Hematocrit 34.3 % (36.0-45.0); Lymphocytes % 23.4 % (15.3-44.8); MCV 98.5 fL (80-100); MPV 6.8 fL (7.6-11.3); RBC Red Blood Cell Count 3.48 M/uL (3.86-4.86)
[2022-10-22 10:16] LABS: Protime INR 1.55
[2022-10-22 10:42] LABS: Albumin 2.2 g/dL (3.4-5.0); Bilirubin Total 0.5 mg/dL (0.2-1.0); Protein, Total 6.7 g/dL (6.4-8.2); Troponin High Sensitivity 25.7 pg/mL (<58.9)
[2022-10-22 10:43] LABS: Potassium 4.8 mmol/L (3.5-5.1)
[2022-10-22 10:49] LABS: Blood Gas Oxyhemoglobin 92.5 % (94-97); Blood O2 Saturation 95.6 % (92-98.5)
--- NOTE | 2022-10-22 11:12 | RAD REPORT ---
EXAM DESCRIPTION: RAD - Chest Single View - 10/22/2022 11:01 am CLINICAL HISTORY: Cough COMPARISON: Chest Single View dated 08/22/2022; Chest Single View dated 08/18/2022; Chest Single Vie w dated 06/16/2022; Chest Single View dated 05/11/2022 FINDINGS: Lines: None. Lungs: Low lung volumes. Right basilar opacities, new from prior. Pleural: No significant pleural effusions or pneumothorax. Cardiac: Cardiomegaly. Mediastinum: Within normal limits. Bones: No acute fractures. Other: None IMPRESSION: Low lung volumes with right basilar opacities that could reflect atelectasis and/or pneu monia.
--- NOTE | 2022-10-22 11:30 | ER ---
Nurse's Notes 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 FSBG by EMS 132. 09:42 Acuity: LINDSEY 2 aa5 09:42 Coronavirus screen: cough unrelated to allergies. Ebola Screen: Patient denies travel aa5 to an Ebola-affected area in the 21 days before illness onset. Initial Sepsis Screen: Does the patient meet any 2 criteria? RR > 20 per min. HR > 90 bpm. Yes Does the patient have a suspected source of infection? Yes:. Risk Assessment: Do you want to hurt yourself or someone else? Patient reports no desire to harm self or others. Onset of symptoms was October 2022. 09:42 Method Of Arrival: EMS: [facility] aa5 09:42 Transition of care: patient was received from another setting of care (long-term care [facility] facility), [facility]. Triage Assessment: 09:45 General: Appears distressed, comfortable, Behavior is calm, cooperative, quiet. Neuro: db Level of Consciousness is awake, alert, obeys commands, Oriented to person, place, time, situation. Respiratory: Reports shortness of breath at rest Patient placed CPAP: Onset: The symptoms/episode began/occurred today, the patient has severe shortness of breath. Historical: - Allergies: 09:45 Aspirin; aa5 09:45 Demerol; aa5 09:45 Haldol; aa5 09:45 Ibuprofen; aa5 09:45 Iodine; aa5 09:45 IV contrast; aa5 09:45 Latex, Natural Rubber; aa5 09:45 Morphine; aa5 09:45 PENICILLINS; aa5 - PMHx: 09:45 Anemia; Anxiety; Atrial Fib; Cerebral infarction; CHF; COPD; depressive disorder; aa5 Diverticulitis; DYSPHAGIA; Hypercholesterolemia; Hypertensive disorder; insomnia; Sleep Apnea; vitamin d deficiency; - Immunization history:: Adult Immunizations unknown. - Social history:: Patient/guardian denies using Smoking status: unknown. - Family history:: not pertinent. - Hospitalizations: : No recent hospitalization is reported. Screenin:39 [facility] ED Fall Risk Assessment (Adult) History of falling in the last 3 months, db including since admission No falls in past 3 months (0 pts) Confusion or Disorientation No (0 pts) Intoxicated or Sedated No (0 pts) Impaired Gait Yes (1 pt) Mobility Assist Device Used No (0 pt) Altered Elimination Yes (1 pt) Score/Fall Risk Level 0 - 2 = Low Risk Oriented to surroundings, Maintained a safe environment. Abuse screen: Denies threats or abuse. Denies injuries from another. Nutritional screening: No deficits noted. Tuberculosis screening: No symptoms or risk factors identified. Assessment: 09:50 Reassessment: Pt placed on Bi-PAP by RT per MD ISBELL. . aa5 10:00 Reassessment: Patient and/or family updated on plan of care and expected duration. Pain db level reassessed. Patient is alert, oriented x 3, equal unlabored respirations, skin warm/dry/pink. PATIENT IS ON BIPAP. General: Appears distressed, comfortable, Behavior is calm, cooperative, quiet. Pain: Denies pain. Neuro: Level of Consciousness is awake, alert, obeys commands, Oriented to person, place, time, situation, Speech is normal. Cardiovascular: Rhythm is atrial fibrillation with rapid ventricular response. Respiratory: Airway is patent Respiratory effort is even, labored, Respiratory pattern is regular, symmetrical. GI: No deficits noted. No signs and/or symptoms were reported involving the gastrointestinal system. 10:25 Reassessment: PATIENT REFUSED [employer]HETER AND REFUSED IN AND OUT. PLACED [place]IW[place]. db NOTIFIED DR. LADD. 10:30 Reassessment: Patient and/or family updated on plan of care and expected duration. Pain db level reassessed. Patient is alert, oriented x 3, equal unlabored respirations, skin warm/dry/pink. PATIENT ON CPAP. 10:41 Reassessment: Patient appears in no apparent distress at this time. RT AT BEDSIDE. db Respiratory: Breath sounds are clear. 12:30 Reassessment: Patient appears in no apparent distress at this time. Patient and/or db family updated on plan of care and expected duration. Pain level reassessed. Patient is alert, oriented x 3, equal unlabored respirations, skin warm/dry/pink. LAB AT BEDSIDE. 13:30 Reassessment: Patient appears in no apparent distress at this time. Patient and/or db family updated on plan of care and expected duration. Pain level reassessed. Patient is alert, oriented x 3, equal unlabored respirations, skin warm/dry/pink. PATIENT IV FLUIDS INFUSING. 14:11 Reassessment: Patient appears in no apparent distress at this time. Patient and/or db family updated on plan of care and expected duration. Pain level reassessed. Patient is alert, oriented x 3, equal unlabored respirations, skin warm/dry/pink. PATIENT RESTING. Neuro: Level of Consciousness is obeys commands, Oriented to person, place, time, situation. 14:35 Reassessment: DR. WOODRUFF AT BEDSIDE. db 15:15 Reassessment: Patient appears in no apparent distress at this time. Patient and/or db family updated on plan of care and expected duration. Pain level reassessed. Patient is alert, oriented x 3, equal unlabored respirations, skin warm/dry/pink. 16:00 Reassessment: Patient appears in no apparent distress at this time. Patient and/or db family updated on plan of care and expected duration. Pain level reassessed. Patient is alert, oriented x 3, equal unlabored respirations, skin warm/dry/pink. Vital Signs: 09:42 BP 108 / 76; Pulse 117; Resp 26 S; Temp 100.0(A); Pulse Ox 96% on 4 lpm NC; aa5 10:00 BP 111 / 74; Pulse 119; Resp 20; Pulse Ox 97% on R/A; db 10:30 BP 100 / 66; Pulse 110; Resp 20; Pulse Ox 97% on BiPAP; db 11:30 BP 101 / 67; Pulse 110; Resp 20; Pulse Ox 96% on BiPAP; db 12:30 BP 107 / 71; Pulse 103; Resp 22; Temp 98.4(A); Pulse Ox 97% on BiPAP; db 14:00 BP 93 / 63; Pulse 118; Resp 22 S; Pulse Ox 97% on BiPAP; db 16:00 BP 104 / 68; Pulse 109; Resp 24; Pulse Ox 95% on BiPAP; db 14:00 MAP 73 db [place] Coma Score: 10:00 Eye Response: to voice(3). Verbal Response: oriented(5). Motor Response: obeys db commands(6). Total: 14. ED Course: 09:42 Patient arrived in ED. as 09:42 Arm band placed on Patient placed in an exam room, on a stretcher. aa5 09:42 Patient has correct armband on for positive identification. Placed in gown. Bed in low aa5 position. Call light in reach. Side rails up X2. Client placed on continuous cardiac and pulse oximetry monitoring. NIBP monitoring applied. 09:43 Maximus Ladd MD is Attending Physician. rn 09:50 Inserted saline lock: 22 gauge in right wrist, using aseptic technique. Blood collected.db 09:50 Inserted saline lock: 20 gauge in left hand, using aseptic technique. aa5 09:50 Second set of blood cultures drawn by me. aa5 09:58 Lizbeth Seth RN is Primary Nurse. db 10:01 Triage completed. aa5 10:31 Notified ED physician of a critical lab result(s). Lactate 2.6. aa5 10:38 O2 via BIPAP Response to oxygen therapy: symptoms improved. db 11:03 Chest Single View XRAY In Process Unspecified. EDMS 11:28 Nathan Woodruff MD is Hospitalizing Provider. rn 14:36 Report given to [facility] 4TH FLOOR. db 14:37 No provider procedures requiring assistance completed. Patient admitted, IV remains in db place. Administered Medications: 10:10 Drug: Tylenol 650 mg Route: PO; db 11:41 Follow up: Response: No adverse reaction db 10:10 Drug: Magnesium Sulfate 1 grams Route: IVPB; Infused Over: 1 hrs; Site: right wrist; db 11:10 Follow up: Response: No adverse reaction; IV Status: Completed infusion; IV Intake: db 100ml 11:30 Drug: LevaQUIN (levofloxacin) 750 mg Volume: 150 ml; Route: IVPB; Infused Over: 90 db mins; Site: right wrist; 13:00 Follow up: Response: No adverse reaction; IV Status: Completed infusion; IV Intake: db 150ml 12:15 Drug: NS 0.9% 500 ml Route: IV; Rate: bolus; Site: right wrist; db 13:15 Follow up: Response: No adverse reaction; IV Status: Completed infusion; IV Intake: db 500ml Medication: 14:37 VIS not applicable for this client. db Intake: 11:10 IV: 100ml; Total: 100ml. db 13:00 IV: 150ml; Total: 250ml. db 13:15 IV: 500ml; Total: 750ml. db Outcome: 11:29 Decision to Hospitalize by Provider. rn 14:32 Admitted to Tele accompanied by tech, on monitor. db 14:32 Condition: stable 14:32 Instructed on the need for admit. 16:48 Patient left the ED. kc6 Signatures: Dispatcher [employer] Lolita Felipe Roman, MD MD rn Calderon, Audri, RN RN Kassandra Jones RN RN Lizbeth Christine RN RN db Corrections: (The following items were deleted from the chart) 12:41 12:15 LevaQUIN (levofloxacin) 750 mg 150 ml IVPB in right wrist over 90 mins 150 ml db db 13:03 12:30 BP 107 / 71; Pulse 103bpm; Resp 22bpm; Pulse Ox 97% CPAP; db db 14:31 14:00 BP 93 / 63; MAP 73; db db 14:35 11:30 BP 101 / 67; Pulse 110bpm; Resp 20bpm; Pulse Ox 96% CPAP; db db 14:35 10:30 BP 100 / 66; Pulse 110bpm; Resp 20bpm; Pulse Ox 97% CPAP; db db 14:35 12:30 BP 107 / 71; Pulse 103bpm; Resp 22bpm; Pulse Ox 97% CPAP; Temp 98.4F Axillary; db db 14:35 14:00 BP 93 / 63; Pulse 118bpm; Resp 22bpm; Spontaneous; Pulse Ox 97% CPAP; MAP 73; db db
--- NOTE | 2022-10-22 11:30 | EDPHYS ---
Physician Documentation [facility] Name: Rocio Quiroz Age: 77 yrs Sex: Female : 1945 Arrival Date: 10/22/2022 Time: 09:42 Bed 3 Private MD: ED Physician Maximus Ladd HPI: 10/22 11:20 This 77 yrs old Female presents to ER via EMS with complaints of Shortness Of Breath. rn 11:20 The patient has shortness of breath at rest. Onset: The symptoms/episode began/occurred rn at an unknown time. Duration: The symptoms are continuous. The patient's shortness of breath is aggravated by nothing, is alleviated by sitting up, application of supplemental oxygen. Associated signs and symptoms: Pertinent positives: non-productive cough, fever, Pertinent negatives: hemoptysis, loss of consciousness. Severity of symptoms: At their worst the symptoms were moderate in the emergency department the symptoms have improved. The patient has experienced similar episodes in the past. The patient has not recently seen a physician. EMS reports fever, cough, sob, unknown onset, O2 was in 70s at home, improved with bipap. . Historical: - Allergies: 09:45 Aspirin; aa5 09:45 Demerol; aa5 09:45 Haldol; aa5 09:45 Ibuprofen; aa5 09:45 Iodine; aa5 09:45 IV contrast; aa5 09:45 Latex, Natural Rubber; aa5 09:45 Morphine; aa5 09:45 PENICILLINS; aa5 - PMHx: 09:45 Anemia; Anxiety; Atrial Fib; Cerebral infarction; CHF; COPD; depressive disorder; aa5 Diverticulitis; DYSPHAGIA; Hypercholesterolemia; Hypertensive disorder; insomnia; Sleep Apnea; vitamin d deficiency; - Immunization history:: Adult Immunizations unknown. - Social history:: Patient/guardian denies using Smoking status: unknown. - Family history:: not pertinent. - Hospitalizations: : No recent hospitalization is reported. ROS: 11:20 Constitutional: + fever Eyes: Negative for injury, pain, redness, and discharge, Neck: rn Negative for injury, pain, and swelling, Cardiovascular: + edema Respiratory: + cough and sob Abdomen/GI: Negative for abdominal pain, nausea, vomiting, diarrhea, and constipation, MS/Extremity: Negative for injury and deformity, Skin: Negative for injury, rash, and discoloration, Neuro: + generalized weakness Exam: 11:20 Constitutional: Morbidly obese female, poor inspiratory air movement, + tachypnea rn Head/Face: Normocephalic, atraumatic. ENT: dry MM, no stridor Cardiovascular: Tachycardic, irregular Respiratory: + moderate tachypnea, no retractions, crackles bilaterally with diminished breath sounds right lung base Abdomen/GI: soft, non-tender Skin: Warm, dry MS/ Extremity: Pulses equal, no cyanosis. Neuro: Awake and alert, GCS 15 11:20 ECG was reviewed by the Attending Physician. rn Vital Signs: 09:42 BP 108 / 76; Pulse 117; Resp 26 S; Temp 100.0(A); Pulse Ox 96% on 4 lpm NC; aa5 10:00 BP 111 / 74; Pulse 119; Resp 20; Pulse Ox 97% on R/A; db 10:30 BP 100 / 66; Pulse 110; Resp 20; Pulse Ox 97% on BiPAP; db 11:30 BP 101 / 67; Pulse 110; Resp 20; Pulse Ox 96% on BiPAP; db 12:30 BP 107 / 71; Pulse 103; Resp 22; Temp 98.4(A); Pulse Ox 97% on BiPAP; db 14:00 BP 93 / 63; Pulse 118; Resp 22 S; Pulse Ox 97% on BiPAP; db 16:00 BP 104 / 68; Pulse 109; Resp 24; Pulse Ox 95% on BiPAP; db 14:00 MAP 73 db [place] Coma Score: 10:00 Eye Response: to voice(3). Verbal Response: oriented(5). Motor Response: obeys db commands(6). Total: 14. MDM: 09:43 Patient medically screened. rn 11:24 Differential diagnosis: Anemia Anxiety Reaction Bronchitis CHF exacerbation, Chronic rn Obstructive Pulmonary Disease Myocardial Infarction Pneumothorax Psychogenic pulmonary edema, reactive airway disease, Sepsis. Antibiotic administration: Levaquin given. Data reviewed: vital signs, nurses notes, lab test result(s), EKG, radiologic studies, plain films, and as a result, I will admit patient. Management of patient was discussed with the following: Hospitalist: Discussed case with hospitalist, will admit for severe sepsis without septic shock, hypoxemia, complicated by chronic CHF.. Independent interpretation of the following test(s) in the Emergency Department EKG: See my EKG interpretation above X-Ray: My interpretation is CXR shows pulmonary edema and possible RLL pneumonia. Test considered but Not performed: Other Details CT PE considered, but patient septic with pneumonia and CHF, has reasons for fever/hypoxemia.. Counseling: I had a detailed discussion with the patient and/or guardian regarding: the historical points, exam findings, and any diagnostic results supporting the discharge/admit diagnosis, lab results, radiology results, the need for further work-up and treatment in the hospital. Response to treatment: the patient's symptoms have markedly improved after treatment, and as a result, I will admit patient. ED course: Pt with severe sepsis, source is pneumonia, SIRS criteria of tachycardia and tachypnea, elevated lactate > 2 but not > 4. Not hypotensive, does not meet shock criteria. . 10/22 09:49 Order name: Blood Culture Adult (2) 10/22 09:49 Order name: CBC with Diff; Complete Time: 10:32 10/22 09:49 Order name: CMP; Complete Time: 10:47 10/22 09:49 Order name: Lactate w/ 2H reflex if indic.; Complete Time: 10:32 10/22 09:49 Order name: Protime (+inr); Complete Time: 10:32 10/22 09:49 Order name: Ptt, Activated; Complete Time: 10:32 10/22 09:49 Order name: Urine Microscopic Only rn 10/22 09:49 Order name: ABG; Complete Time: 11:15 10/22 09:49 Order name: BNP; Complete Time: 10:47 10/22 09:49 Order name: Troponin High Sensitivity; Complete Time: 10:47 10/22 09:50 Order name: Urine Culture 10/22 09:50 Order name: COVID-19/FLU A+B; Complete Time: 11:35 10/22 13:09 Order name: Urinalysis [facility] 10/22 13:09 Order name: Basic Metabolic Panel [facility] 10/22 09:49 Order name: Chest Single View XRAY; Complete Time: 11:15 10/22 09:50 Order name: BIPAP 10/22 13:09 Order name: Basic Metabolic Panel [facility] 10/22 13:09 Order name: Basic Metabolic Panel [facility] 10/22 13:09 Order name: Basic Metabolic Panel [facility] 10/22 13:09 Order name: CBC with Automated Diff [facility] 10/22 13:09 Order name: CBC with Automated Diff [facility] 10/22 13:09 Order name: CBC with Automated Diff [facility] 10/22 13:09 Order name: CBC with Automated Diff [facility] 10/22 13:09 Order name: Lipid Profile [facility] 10/22 13:09 Order name: Lipid Profile EDMS 10/22 13:09 Order name: Magnesium EDMS 10/22 13:09 Order name: Magnesium EDMS 10/22 13:15 Order name: Lactate Sepsis 2 HR Follow-up EDMS 10/22 09:49 Order name: EKG; Complete Time: 09:50 rn 10/22 09:49 Order name: Accucheck; Complete Time: 10:35 rn 10/22 09:49 Order name: Cardiac monitoring; Complete Time: 10:01 rn 10/22 09:49 Order name: EKG - Nurse/Tech; Complete Time: 10: rn 10/22 09:49 Order name: IV Saline Lock - Large Bore; Complete Time: 10: rn 10/22 09:49 Order name: Labs collected and sent; Complete Time: 10: rn 10/22 09:49 Order name: O2 Per Protocol; Complete Time: 10: rn 10/22 09:49 Order name: O2 Sat Monitoring; Complete Time: 10: rn 10/22 09:49 Order name: Vital Signs; Complete Time: 10:35 rn 10/22 13:09 Order name: NPO EDMS EC:20 Rate is 130 beats/min. Rhythm is irregularly irregular. QRS [place] is Normal. QRS rn interval is normal. QT interval is normal. No Q waves. T waves are Normal. No ST changes noted. Clinical impression: Atrial Fibrillation and with RVR. Interpreted by me. Reviewed by me. Administered Medications: 10:10 Drug: Tylenol 650 mg Route: PO; db 11:41 Follow up: Response: No adverse reaction db 10:10 Drug: Magnesium Sulfate 1 grams Route: IVPB; Infused Over: 1 hrs; Site: right wrist; db 11:10 Follow up: Response: No adverse reaction; IV Status: Completed infusion; IV Intake: db 100ml 11:30 Drug: LevaQUIN (levofloxacin) 750 mg Volume: 150 ml; Route: IVPB; Infused Over: 90 db mins; Site: right wrist; 13:00 Follow up: Response: No adverse reaction; IV Status: Completed infusion; IV Intake: db 150ml 12:15 Drug: NS 0.9% 500 ml Route: IV; Rate: bolus; Site: right wrist; db 13:15 Follow up: Response: No adverse reaction; IV Status: Completed infusion; IV Intake: db 500ml Disposition: 11:24 Critical Care:. 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 Total time: 40 rn minutes Signatures: Dispatcher [employer] EDMS Maximus Ladd MD MD rn Calderon, Audri RN RN aa5 Lizbeth Seth RN RN db Corrections: (The following items were deleted from the chart) 11:22 11:20 Constitutional: + fever Eyes: Negative for injury, pain, redness, and discharge, rn Neck: Negative for injury, pain, and swelling, Cardiovascular: Negative for chest pain, palpitations, and edema, Respiratory: + cough and sob Abdomen/GI: Negative for abdominal pain, nausea, vomiting, diarrhea, and constipation, MS/Extremity: Negative for injury and deformity, Skin: Negative for injury, rash, and discoloration, Neuro: + generalized weakness rn 13:51 11:29 rn aa5
[2022-10-22 11:33] LABS: SARS-COV-2 RT PCR NEGATIVE (NEGATIVE)
[2022-10-22] MEDS ORDERED: NA CHLORIDE 0.9% 500 ML ONE (12:34)
[2022-10-22] MEDS ORDERED: Levofloxacin 750mg IV 750 MG/150 ML BAG IV ONE (12:34)
[2022-10-22] MEDS: NA CHLORIDE 0.9% 1,000 ML IV SCH ×2 (13:00→17:41)
[2022-10-22] MEDS ORDERED: ONDANSETRON 4 MG/2 ML VIAL IV PRN (13:00)
[2022-10-22] MEDS: ALBUTEROL 2.5 MG/3 ML NEB SOL NEB SCH ×3 (14:00→20:15)
[2022-10-22] MEDS ORDERED: ALBUTEROL 2.5 MG/3 ML NEB SOL ONE (14:58)
[2022-10-22] MEDS: HEPARIN 5000 UNIT/ML 1 ML VIAL SQ SCH (17:42)
[2022-10-22] MEDS ORDERED: METHYLPREDNISOLONE 40 MG INJ IV SCH (18:00)
--- NOTE | 2022-10-22 18:03 | P.HP ---
Certification for Inpatient Patient admitted to: Inpatient With expected LOS: >2 Midnights Patient will require the following post-hospital care: None Practitioner: I am a practitioner with admitting privileges, knowledge of patient current condition, hospital course, and medical plan of care. Services: Services provided to patient in accordance with Admission requirements found in Title 42 Section 412.3 of the Code of Federal Regulations <Prosper Fitzpatrick - Last Filed: 10/22/22 17:57> Patient History Date of Service: 10/22/22 Reason for admission: RLL PNA, sepsis History of Present Illness: This is a 77-year-old female with past medical history of anemia, anxiety, atrial flutter, cerebral infarction, CHF, COPD, depressive disorder, dysphagia. Patient presents to the emergency department via EMS with complaints of shortness of breath. Patient was evaluated in the ER, patient is currently on BiPAP. Unable to obtain history. Patient is arousable to painful stimuli and is able to shake her head to simple commands. Per EMS, patient had fever, cough, shortness of breath with oxygenation in the 70s at home. Her oxygenation was improved with BiPAP. Patient's chest x-ray demonstrated right lower lobe pneumonia. Her breath sounds were rhonchorous. Patient also presented with +2 right lower extremity edema. Her EKG demonstrated A. fib with RVR with heart rate in the 130s. She also had a lactic of 2.6, temperature 100, respirations 26, heart rate 117. Patient received 2 liters if NS in the ER. Patient will be admitted under the care of Dr. Woodruff. Pulmonology will be consulted for further evaluation and recommendation. - Past Medical/Surgical History Diabetic: No -: Hypertension -: COPD -: CHF chronic diastolic -: Atrial fibrillation on anticoagulation -: Depression with anxiety -: Morbid obesity -: Obstructive sleep apnea -: Lymphedema -: Bedbound post bilateral knee replacements -: CVA -: Hysterectomy -: Appendectomy -: Right knee replacement -: Left knee replacement Psychosocial/ Personal History: Currently resides at [facility], is primarily bedbound gets around by wheelchair. - Family History Mother Notes: alzheimers - Social History Alcohol use: No CD- Drugs: No Caffeine use: Yes <Prosper Fitzpatrick - Last Filed: 10/22/22 17:57> Date of Service: 10/22/22 <Nathan Woodruff - Last Filed: 10/22/22 22:57> Allergies iodine Allergy (Verified 12/22/16 01:47) Hives/Rash latex Allergy (Verified 12/22/16 01:47) Hives/Rash Latex, Natural Rubber Allergy (Verified 02/01/18 20:29) Itching/Hives/Rash morphine Allergy (Verified 12/22/16 01:47) Hives Penicillins Allergy (Verified 12/22/16 01:47) Hives/Rash haloperidol [From Haldol] Adverse Reaction (Verified 12/22/16 01:47) anxiety haloperidol lactate [From Haldol] Adverse Reaction (Verified 12/22/16 01:47) anxiety Home Medications: Acetaminophen [Tylenol] 2 tab PO Q6H PRN 06/18/22 Albuterol Sulfate [Ventolin Hfa] 2 puff IN Q6H PRN 06/18/22 Ascorbic Acid 500 mg PO DAILY 06/18/22 Aspirin Chewable [Aspirin Chewable*] 1 tab PO DAILY 06/18/22 Bisacodyl [Laxative Suppository] 1 supp SP Q8H PRN 06/18/22 Bupropion HCl [Wellbutrin] 1 tab PO DAILY 06/18/22 Capsaicin 0.025 markie TOP Q6H PRN 06/18/22 Divalproex Sodium [Depakote] 1 tab PO BID 06/18/22 Docusate Sodium 1 tab PO BID 06/18/22 Duloxetine HCl 2 cap PO BEDTIME 06/18/22 Lorazepam [Ativan] 1 tab PO DAILY 06/18/22 Menthol [Biofreeze] 1 markie TOP Q6H PRN 06/18/22 Pantoprazole Sodium [Protonix] 1 tab PO DAILY 06/18/22 Polysorbate 80/Glycerin [Refresh Dry Eye Therapy Drops] 2 drop OP QID 06/18/22 Sennosides [Senokot] 1 tab PO BID 06/18/22 Temazepam 1 cap PO BEDTIME 06/18/22 Zinc Gluconate [Zinc] 220 mg PO DAILY 06/18/22 Atorvastatin Calcium [Lipitor] 40 mg PO BEDTIME tab 06/20/22 Fluconazole 200 mg PO DAILY #10 tab 06/20/22 Glucerna Shake [Glucerna*] 237 ml PO BID can 06/20/22 Nystatin Oint [Mycostatin 100 Mu/Gm Oint*] 1 appl TOP BID tube 06/20/22 Oxycodone HCl/Acetaminophen [Percocet 5/325 Tab*] 1 tab PO Q4H PRN #15 tab 06/20/22 Apixaban [Eliquis] 5 mg PO BID 08/22/22 Metoprolol Tartrate [Lopressor*] 25 mg PO BID 6AM 6PM tab 08/22/22 Review of Systems is unable to be obtained (on BIPAP) <Prosper Fitzpatrick - Last Filed: 10/22/22 17:57> Physical Examination - Vital Signs Temperature: 98.4 F Blood Pressure: 93/63 Pulse: 118 Respirations: 22 - Physical Exam General: Other (On BIPAP, responds to painful stimuli) - Studies Laboratory Data (last 24 hrs) 10/22/22 09:50: PT 17.0 H, INR 1.55, APTT 33.1 10/22/22 09:50: Sodium 141, Potassium 4.8, BUN 25 H, Creatinine 1.35 H, Glucose 127 H, Total Bilirubin 0.5, AST 23, ALT 14, Alkaline Phosphatase 169 H 10/22/22 09:50: WBC 10.70, Hgb 11.4 L, Hct 34.3 L, Plt Count 170 <Prosper Fitzpatrick - Last Filed: 10/22/22 17:57> - Studies Laboratory Data (last 24 hrs) 10/22/22 09:50: PT 17.0 H, INR 1.55, APTT 33.1 10/22/22 09:50: Sodium 141, Potassium 4.8, BUN 25 H, Creatinine 1.35 H, Glucose 127 H, Total Bilirubin 0.5, AST 23, ALT 14, Alkaline Phosphatase 169 H 10/22/22 09:50: WBC 10.70, Hgb 11.4 L, Hct 34.3 L, Plt Count 170 <Nathan Woodruff - Last Filed: 10/22/22 22:57> Assessment and Plan - Plan Assessment Right lower lobe pneumonia Sepsis due to pulmonary infection Atrial fibrillation with RVR on chronic anticoagulation Hypertension COPD Hyperlipidemia Acute on chronic diastolic congestive heart failure Plan Continue IV Lasix for diuresis Continue IV antibiotics, pulmonology consulted, recommendations appreciated Continue nebulizer treatment with steroids Continue BiPAP Cardiology consulted, recommendation appreciated Blood cultures and urine cultures pending, trend lactic Continue IV fluids Daily weights with strict I/O's Resume home medications when patient is able to swallow Resume hypertensive medication when appropriate Resume statin when appropriate PPX- Heparin subq Discharge Plan: Home Plan to discharge in: Greater than 2 days - Advance Directives Does patient have a Living Will: No Does patient have a Durable POA for Healthcare: Yes Critical Care: No Time Spent Managing Pts Care (In Minutes): 50 <Prosper Fitzpatrick - Last Filed: 10/22/22 17:57> Physician Review: Patient Assessed, Agree with Above Assessment and Plan <Nathan Woodruff - Last Filed: 10/22/22 22:57>
[2022-10-23] MEDS: HEPARIN 5000 UNIT/ML 1 ML VIAL SQ SCH ×3 (00:51→17:18)
[2022-10-23] MEDS: ALBUTEROL 2.5 MG/3 ML NEB SOL NEB SCH ×4 (02:00→20:10)
[2022-10-23 03:44] LABS: Absolute Lymphocytes (CBC) 1.9 K/uL (0.7-4.9); Hematocrit 32.2 % (36.0-45.0); Lymphocytes % 20.2 % (15.3-44.8); MCV 98.2 fL (80-100); MPV 7.4 fL (7.6-11.3); RBC Red Blood Cell Count 3.28 M/uL (3.86-4.86)
[2022-10-23 04:00] LABS: Magnesium 2.4 mg/dL (1.6-2.4); Potassium 4.4 mmol/L (3.5-5.1)
[2022-10-23] MEDS ORDERED: METOPROLOL TARTRATE 5 MG/5 ML INJ IV STA ×4 (04:22→12:57)
[2022-10-23] MEDS ORDERED: Levofloxacin 250mg IV 250 MG/50 ML BAG IV SCH (12:00)
--- NOTE | 2022-10-23 17:28 | P.PN ---
Subjective Date of Service: 10/23/22 Chief Complaint: RLL PNA, sepsis She has improved significantly since admission. She is no longer on BiPAP. She is on nasal cannula, with improvement in her breathing. She endorses edema and orthopnea. She denies any chest pain or palpitations. Review of Systems 10-point ROS is otherwise unremarkable Respiratory: Shortness of Breath Cardiovascular: Orthopnea, Edema Physical Examination - Vital Signs Temperature: 97.3 F Blood Pressure: 119/56 Pulse: 130 Respirations: 22 Pulse Ox (%): 99 - Physical Exam General: Alert, In no apparent distress, Oriented x3 HEENT: Atraumatic, EOMI, Sclerae nonicteric Neck: JVD not distended (difficult to assess given habitus) Respiratory: Crackles/rales, Rhonchi/gurgles Cardiovascular: Normal S1 S2, No gallops, No rubs, No murmurs, Edema (2-3+), Irregular heart rate/rhythm Gastrointestinal: Normal bowel sounds, Soft and benign, Non-distended, No tenderness, No rebound, No guarding Musculoskeletal: No clubbing Integumentary: No rashes Neurological: Normal speech, Normal affect Assessment And Plan - Plan # Acute Hypoxic Respiratory Failure - suspect secondary to Right Lower Lobe Pneumonia (Aspiration?) Upon presentation to the ED, her SpO2 was 77 % on room air. She required BiPAP on admission. Currently, she is on 2 L nasal cannula, with improvement of her SpO2 readings to 99 %. - Evaluation thus far: - Procalcitonin = pending - COVD-19/influenza = negative - ABG (taken on BiPAP) = pH 7.35, PCO2 50.3, PO2 82.2 - Chest x-ray = "low lung volumes with right basilar opacities that could reflect atelectasis and/or pneumonia." - CT chest = pending - Management plan: - Consulted Pulmonary Medicine - recommendations appreciated - Consulted Respiratory Therapy - Supplemental oxygen to maintain SpO2 > 92% - Continue levofloxacin - PRN benzonatate, guaifenesin - Encouraged incentive spirometry # Severe Sepsis likely secondary to Right Lower Lobe Pneumonia (Aspiration?) - POA She met sepsis criteria based on HR > 90 bpm and RR > 20 breaths/min, and the suspected source is pulmonary. Severe sepsis is suspected due to concern for tissue hypoperfusion/organ dysfunction based on acute respiratory failure requiring BiPAP and lactic acid > 2 mmol/L. - Sepsis order set was initiated - Lactate trend was 2.6 -> 2.5 - Blood cultures drawn before antibiotics were given - Broad spectrum antibiotics started: Levofloxacin - In regards to fluids: - 30 mL/kg of IV fluids was not administered given SBP > 90, MAP > 65, lactic acid < 4, and concern for volume overload (CHF) # Paroxysmal Atrial Fibrillation with Rapid Ventricular Response Her [id number] = 6 (CHF=1, HTN=1, Age>75=2, CVA=1, Sex=1), which warrants ant icoagulation. - Continue home metoprolol, apixaban # Acute on Chronic Decompensated Diastolic Congestive Heart Failure with Preserved Ejection Fraction # Morbid Obesity - BMI 62.6 kg/m2 - Consult Cardiology - recommendations appreciated - Transthoracic echocardiogram (08/19/2022) = "1. left atrial enlargement 2. no wall motion abnormality 3. normal ejection fraction 4. no effusion" - NT- Pro BNP = 7743 (may be falsely low in obesity) - Diuresis with IV furosemide - Continue home metoprolol - Daily weights - Strict I/O - Cardiac diet, 1.5 L fluid restriction, 2 g Na restriction # History of Cerebrovascular Accident with Resident Left-Sided Weakness # Hypertension # Hyperlipidemia - Continue aspirin, atorvastatin # Bipolar Disorder # Depression # Anxiety - Continue buspirone, aripiprazole, duloxetine, gabapentin # Gastroesophageal Reflux Disease - Continue home pantoprazole Nathan Woodruff M.D.
[2022-10-23] MEDS: METOPROLOL TAR 25 MG TAB PO SCH (18:28)
[2022-10-23] MEDS: DULOXETINE 30 MG CAP PO SCH (22:24)
[2022-10-23] MEDS: BUSPIRONE HCL 15 MG TABLET PO SCH (22:24)
[2022-10-23] MEDS: GABAPENTIN 100 MG CAP PO SCH (22:25)
[2022-10-23] MEDS: ATORVASTATIN 40 MG TAB PO SCH (22:25)
[2022-10-23] MEDS: ARIPiprazole 5 MG TAB PO SCH (22:25)
[2022-10-23] MEDS: APIXABAN 5 MG TABLET PO SCH (22:26)
[2022-10-24] MEDS: ALBUTEROL 2.5 MG/3 ML NEB SOL NEB SCH ×4 (02:15→19:45)
[2022-10-24 04:02] LABS: Magnesium 2.5 mg/dL (1.6-2.4); Phosphorus 2.6 mg/dL (2.5-4.9); Potassium 3.9 mmol/L (3.5-5.1)
[2022-10-24] MEDS: METOPROLOL TAR 25 MG TAB PO SCH ×2 (06:51→18:00)
[2022-10-24] MEDS ORDERED: PNEUMOCOCCAL VACCINE 0.5 ML IMVAC ONE (08:00)
[2022-10-24] MEDS ORDERED: INFLUENZA VACCINE (for 6+ mo) 0.5 ML DOSE IMVAC ONE (08:00)
--- NOTE | 2022-10-24 08:54 | CON ---
Date of Consultation: 10/24/2022 Reason For Consultation: Atrial fibrillation with rapid ventricular response. History Of Present Illness: A 77-year-old female with history of morbid obesity, anemia, atrial fibr illation, CVA, CHF, COPD, presented to the emergency room due to shortness of breath, lower extremity edema. Denies having any chest pain. Also, she has been having fever, shortness of breath, and cou gh. Oxygen saturation was below 70s, improved with BiPAP. Past Medical History: As outlined above in the HPI. Medications: Refer to reconciliation sheet for detailed list. Allergies: LONG LIST OF ALLERGY WAS REVIEWED. REFER TO THE NURSE'S NOTES. Social History: Does not smoke or drink. Does not use any drugs. Family History: No premature coronary artery disease or cancer. Review of Systems: All systems reviewed and they were negative except what mentioned in HPI. Physical Examination: Vital Signs: Temperature is 97.1, pulse 107, breathing at 14, blood pressure is 120/72, saturating 9 9% with BiPAP. General: Pleasant elderly female, in no apparent distress. She is morbidly obese. Head and Neck: Pupils are equal, reactive to light. No cervical lymphadenopathy. Neck is supple. Thyroid is not enlarged. Lungs: Rhonchi bilaterally with no accessory muscle use or muscle retraction. Heart: Irregularly irregular. No extra sounds. Abdomen: Soft, nontender. Bowel sounds positive. No organomegaly. No masses or hernia. No rigidi ty or rebound. Extremities: 2 to 3+ pedal edema. No clubbing or cyanosis. Intact pulses. Skin: No rash or nodules. Neurologic: Alert, awake, oriented x3. No acute focal deficits appreciated. Lymph Nodes: No cervical or axillary lymphadenopathy. Investigations: BUN 26, creatinine 0.92, hemoglobin is 10.8. Assessment And Recommendations: 1.Atrial fibrillation with rapid ventricular response. Start her on sotalol 80 mg by mouth twice a day and adjust, and then discontinue metoprolol, use IV metoprolol for rate control if the heart rate is above 100 and agree with Eliquis for stroke prevention. 2.Acute on chronic diastolic heart failure exacerbation. Agree with Lasix and obtain an echo if it was not done recently. 3.Pneumonia, on wide-spectrum antibiotics. 4.Acute hypoxic respiratory failure due to the combination of pneumonia and congestive heart failure exacerbation. Management plan as above. SR/MODL Voice ID: [id number] Report ID: [id number]
[2022-10-24] MEDS: ASPIRIN 81 MG CHEWABLE TABLET PO SCH (08:56)
[2022-10-24] MEDS: APIXABAN 5 MG TABLET PO SCH ×2 (08:56→20:47)
[2022-10-24] MEDS: PANTOPRAZOLE 40MG TABLET PO SCH (08:57)
[2022-10-24] MEDS: FUROSEMIDE 40 MG/4 ML VIAL IV SCH ×2 (08:57→18:21)
[2022-10-24] MEDS: GABAPENTIN 100 MG CAP PO SCH ×3 (08:57→20:47)
[2022-10-24] MEDS ORDERED: POTASSIUM CL SA 10 MEQ TAB PO ONE (09:00)
[2022-10-24] MEDS: BUSPIRONE HCL 15 MG TABLET PO SCH ×3 (09:44→20:47)
[2022-10-24] MEDS ORDERED: Levofloxacin 750mg IV 750 MG/150 ML BAG IV SCH (12:00)
--- NOTE | 2022-10-24 12:24 | P.CNS ---
Date of Consult: 10/24/22 Reason for Consult: Respiratory failure possible pneumonia Chief Complaint: RLL PNA, sepsis History of Present Illness: Patient is 77 years of age little medical problems including COPD depressive disorder mated from the emergency room with shortness of breath no history of sleep apnea currently on BiPAP altered mental status having some fever cough shortness of breath really doing better Allergies iodine Allergy (Verified 12/22/16 01:47) Hives/Rash latex Allergy (Verified 12/22/16 01:47) Hives/Rash Latex, Natural Rubber Allergy (Verified 02/01/18 20:29) Itching/Hives/Rash morphine Allergy (Verified 12/22/16 01:47) Hives Penicillins Allergy (Verified 12/22/16 01:47) Hives/Rash haloperidol [From Haldol] Adverse Reaction (Verified 12/22/16 01:47) anxiety haloperidol lactate [From Haldol] Adverse Reaction (Verified 12/22/16 01:47) anxiety Home Medications: Acetaminophen [Tylenol] 2 tab PO Q6H PRN 06/18/22 Albuterol Sulfate [Ventolin Hfa] 2 puff IN Q6H PRN 06/18/22 Ascorbic Acid 500 mg PO DAILY 06/18/22 Aspirin Chewable [Aspirin Chewable*] 1 tab PO DAILY 06/18/22 Docusate Sodium 1 tab PO BID 06/18/22 Duloxetine HCl 2 cap PO BEDTIME 06/18/22 Menthol [Biofreeze] 1 markie TOP Q6H PRN 06/18/22 Pantoprazole Sodium [Protonix] 1 tab PO DAILY 06/18/22 Polysorbate 80/Glycerin [Refresh Dry Eye Therapy Drops] 2 drop OP QID 06/18/22 Sennosides [Senokot] 1 tab PO BID 06/18/22 Temazepam 22.5 mg PO BEDTIME 06/18/22 Zinc Gluconate [Zinc] 220 mg PO DAILY 06/18/22 Atorvastatin Calcium [Lipitor] 40 mg PO BEDTIME tab 06/20/22 Apixaban [Eliquis] 5 mg PO BID 08/22/22 Metoprolol Tartrate [Lopressor*] 25 mg PO BID 6AM 6PM tab 08/22/22 Aripiprazole [Abilify] 10 mg PO BEDTIME 10/23/22 Buspirone HCl [Buspar] 15 mg PO TID 10/23/22 Carboxymethylcellulose Sodium [Refresh Plus] 1 each OP QIDP PRN 10/23/22 Ferrous Sulfate [Feosol] 325 mg PO DAILY 10/23/22 Furosemide [Lasix] 40 mg PO BIDL 10/23/22 Gabapentin [Neurontin] 100 mg PO TID 10/23/22 Hydrocodone 5/APAP 325 [[place] 5/325] 1 tab PO Q8HP PRN 10/23/22 Ipratropium/Albuterol Sulfate [Iprat-Albut 0.5-3(2.5) mg/3 ml] 3 ml IH QID 10/23/22 Lidocaine 4% Patch [Lidoderm 5% Patch] 1 patch TD DAILY 10/23/22 Multivitamin [Multiple Vitamins] 1 each PO DAILY 10/23/22 Polyethylene Glycol 3350 [Miralax] 17 gm PO DAILYPRN PRN 10/23/22 Potassium Chloride [Klor-Con 10] 10 meq PO BID 10/23/22 Triamcinolone Acetonide 15 gm TP BID 10/23/22 guaiFENesin [Guaifenesin ER] 600 mg PO Q12HP PRN 10/23/22 hydrOXYzine HCL [Atarax] 25 mg PO TID 10/23/22 - Past Medical/Surgical History Diabetic: No -: Hypertension -: COPD -: CHF chronic diastolic -: Atrial fibrillation on anticoagulation -: Depression with anxiety -: Morbid obesity -: Obstructive sleep apnea -: Lymphedema -: Bedbound post bilateral knee replacements -: CVA -: Hysterectomy -: Appendectomy -: Right knee replacement -: Left knee replacement Psychosocial/ Personal History: Currently resides at [facility], is primarily bedbound gets around by wheelchair. - Family History Mother Notes: alzheimers - Social History Smoking Status: Unknown if ever smoked Alcohol use: No CD- Drugs: No Caffeine use: Yes Place of Residence: [facility] Review of Systems 10-point ROS is otherwise unremarkable Respiratory: Shortness of Breath Physical Examination Temp Pulse Resp BP Pulse Ox 96.8 F 118 H 18 103/58 L 97 10/24/22 11:50 10/24/22 11:50 10/24/22 11:50 10/24/22 11:50 10/24/22 11:50 General: Alert, In no apparent distress, Oriented x3 Respiratory: Clear to auscultation bilaterally, Diminished Cardiovascular: Edema Gastrointestinal: Normal bowel sounds, Soft and benign, Non-distended Musculoskeletal: No clubbing, No swelling Integumentary: No rashes, No breakdown - Problems (1) Respiratory failure Current Visit: Yes Status: Acute Plan: Patient is 77 years of age obese admitted with hypoxic hypercapnic respiratory failure x-ray shows cardiomegaly otherwise clear Ozzy's reviewed white count normal procalcitonin level elevated blood pressure stable oxygenation satisfactory on 2 L we will DC BiPAP cultures are also negative he has underlying obstructive sleep apnea or obesity hypoventilation syndrome mild fever on admission patient's lactic acid was also elevated changed to p.o. levofloxacin urinalysis discharge planning Qualifiers: Chronicity: unspecified
[2022-10-24] MEDS: HYDROCODONE/APAP 5/325 MG TAB PO PRN (14:58)
--- NOTE | 2022-10-24 16:56 | EKG ---
Test Date: 2022-10-22 Test Time: 09:48:28 Disbursing Officer: CHUN MEASUREMENT RESULTS: Intervals: Rate: 130 GA: QRSD: 82 QT: 318 QTc: 467 [place]: P: GA: QRS: -5 T: 269 INTERPRETIVE STATEMENTS: Atrial fibrillation with rapid ventricular response with premature ventricular or aberrantly conducted complexes Inferior-posterior infarct, age undetermined Abnormal ECG Compared to ECG 08/18/2022 16:34:18 Ventricular premature complex(es) now present Myocardial infarct finding still present Electronically Signed On 10-24-22 16:54:50 PROGRAM HOST by Wily Bhandari
[2022-10-24] MEDS ORDERED: HYDROMORPHONE HCL 0.5 MG/0.5 ML INJ IV ONE (18:27)
[2022-10-24] MEDS: SOTALOL HCL 80 MG TAB PO SCH (18:27)
[2022-10-24] MEDS: ATORVASTATIN 40 MG TAB PO SCH (20:47)
[2022-10-24] MEDS: DULOXETINE 30 MG CAP PO SCH (20:47)
[2022-10-24] MEDS: ARIPiprazole 5 MG TAB PO SCH (20:47)
[2022-10-24 23:46] LABS: Calcium Oxalate Crystals- Ur Many /HPF (None Seen); Specific Gravity 1.009 (1.005-1.030); Urine Bacteria Loaded /HPF (<20); Urine Bilirubin NEGATIVE (Negative); Urine Blood 1+ (Negative); Urine Clarity Extremely Turbid (Clear); Urine Color Orange (Yellow); Urine Crystals Unidentified Moderate /HPF (None Seen); Urine Glucose NEGATIVE (Negative); Urine Mucus 2+ /HPF (None Seen); Urine Protein 2+ (Negative); Urine RBC >50 /HPF (None Seen); Urine Triple Phosphate Crystal Many /HPF (None Seen); Urine Urobilinogen Normal (Normal)
[2022-10-25] MEDS: ALBUTEROL 2.5 MG/3 ML NEB SOL NEB SCH ×4 (01:35→20:00)
[2022-10-25] MEDS: D5W 1,000 ML IV SCH (05:00)
[2022-10-25] MEDS: SOTALOL HCL 80 MG TAB PO SCH ×2 (05:56→16:52)
[2022-10-25] MEDS ORDERED: METOPROLOL TAR 25 MG TAB PO SCH (06:00)
[2022-10-25] MEDS: FUROSEMIDE 40 MG/4 ML VIAL IV SCH ×2 (09:17→15:53)
[2022-10-25] MEDS: GABAPENTIN 100 MG CAP PO SCH ×3 (09:18→20:17)
[2022-10-25] MEDS: PANTOPRAZOLE 40MG TABLET PO SCH (09:18)
[2022-10-25] MEDS: levoFLOXacin 750 MG TAB PO SCH (09:18)
[2022-10-25] MEDS: APIXABAN 5 MG TABLET PO SCH ×2 (09:18→20:18)
[2022-10-25] MEDS: ASPIRIN 81 MG CHEWABLE TABLET PO SCH (09:18)
[2022-10-25] MEDS: BUSPIRONE HCL 15 MG TABLET PO SCH ×3 (09:18→20:17)
[2022-10-25] MEDS: HYDROCODONE/APAP 5/325 MG TAB PO PRN ×2 (09:55→20:16)
[2022-10-25 10:51] LABS: Potassium 4.1 mmol/L (3.5-5.1)
--- NOTE | 2022-10-25 13:39 | PN ---
Date of Progress Note: 10/25/2022 Subjective: Seen by bedside. Heart rate continued to run fast, but she is breathing better. Review of Systems: She has shortness of breath. No orthopnea. No chest pain. No nausea, vomiting, diarrhea. No dysur ia, polyuria, or urinary urgency. All other systems reviewed and they were negative. Physical Examination: Vital Signs: Reviewed. Head and Neck: Pupils are equal, reactive to light. Intact eye movements. No JVD. No cervical lym phadenopathy. Neck is supple. Thyroid is not enlarged. Lungs: Decreased breathing sounds bilaterally, but no accessory muscle use or muscle retraction. Heart: Irregularly irregular. No extra sounds. Abdomen: Soft, nontender. Bowel sounds positive. No organomegaly. No masses or hernia. No rigidi ty or rebound. Extremities: No clubbing or cyanosis. Intact pulses. Skin: No rash. Neurologic: Alert, awake. No acute focal deficits appreciated. Investigations: BUN 23, creatinine 0.9, and hemoglobin is 10.8. Assessment And Recommendations: 1.Atrial fibrillation with rapid ventricular response. She was placed on sotalol and it seems that her heart rate is better, but not all the way controlled now. If the blood pressure continues to be low, then I will discontinue sotalol and plan for IV amiodarone load and continue with Eliquis for st roke prevention. 2.Acute on chronic diastolic heart failure. Doing very well with diuresis. Continue current manage ment. 3.Acute hypoxic respiratory failure due to pneumonia and congestive heart failure, gradual improvement. Continue current management and BiPAP therapy. SR/MODL Voice ID: [id number] Report ID: [id number]
[2022-10-25] MEDS: ATORVASTATIN 40 MG TAB PO SCH (20:17)
[2022-10-25] MEDS: ARIPiprazole 5 MG TAB PO SCH (20:18)
[2022-10-25] MEDS: DULOXETINE 30 MG CAP PO SCH (20:20)
[2022-10-26] MEDS: D5W 1,000 ML IV SCH ×2 (01:56→21:32)
[2022-10-26] MEDS: ALBUTEROL 2.5 MG/3 ML NEB SOL NEB SCH ×4 (02:00→19:10)
[2022-10-26] MEDS: HYDROCODONE/APAP 5/325 MG TAB PO PRN ×2 (05:30→21:18)
[2022-10-26] MEDS: SOTALOL HCL 80 MG TAB PO SCH (05:31)
--- NOTE | 2022-10-26 07:57 | RAD REPORT ---
EXAM DESCRIPTION: [facility] Single View10/26/2022 5:40 am CLINICAL HISTORY: Chest pain COMPARISON: October 22, 2022 FINDINGS: Mild right basilar opacities have partially resolved Left lung appears clear. Heart remains enlarged IMPRESSION: Improvement in mild right basilar opacities
[2022-10-26] MEDS: BUSPIRONE HCL 15 MG TABLET PO SCH ×3 (08:24→21:21)
[2022-10-26] MEDS: ASPIRIN 81 MG CHEWABLE TABLET PO SCH (08:24)
[2022-10-26] MEDS: APIXABAN 5 MG TABLET PO SCH ×2 (08:24→21:18)
[2022-10-26] MEDS: levoFLOXacin 750 MG TAB PO SCH (08:24)
[2022-10-26] MEDS: PANTOPRAZOLE 40MG TABLET PO SCH (08:25)
[2022-10-26] MEDS: FUROSEMIDE 40 MG/4 ML VIAL IV SCH (08:25)
[2022-10-26] MEDS: GABAPENTIN 100 MG CAP PO SCH ×3 (08:25→21:18)
[2022-10-26 09:02] LABS: Absolute Lymphocytes (CBC) 1.4 K/uL (0.7-4.9); Hematocrit 26.4 % (36.0-45.0); Lymphocytes % 24.5 % (15.3-44.8); MCV 97.5 fL (80-100); MPV 6.6 fL (7.6-11.3); RBC Red Blood Cell Count 2.71 M/uL (3.86-4.86)
[2022-10-26 09:22] LABS: Albumin 1.8 g/dL (3.4-5.0); Bilirubin Total 0.3 mg/dL (0.2-1.0); Phosphorus 2.5 mg/dL (2.5-4.9); Protein, Total 5.8 g/dL (6.4-8.2)
--- NOTE | 2022-10-26 09:29 | PN ---
Date of Progress Note: 10/26/2022 Subjective: Seen by bedside. Doing well, breathing much more comfortable. Review of Systems: No chest pain, shortness of breath. No nausea, vomiting, diarrhea. No abdominal pain. No dysuria, polyuria, or urinary urgency. All other systems reviewed are negative. Physical Examination: Vital Signs: Temperature is 98.6, heart rate is 116, breathing at 18, blood pressure is 102/61, satu rating 99%. General: Pleasant elderly female, in no apparent distress. Head and Neck: Pupils are equal, reactive to light. Intact eye movements. No JVD. No cervical lym phadenopathy. Neck: Supple. Thyroid is not enlarged. Lungs: Decreased breathing sounds bilaterally. No rhonchi. No accessory muscle use or muscle retra ction. Heart: Irregularly irregular. No extra sounds. Abdomen: Soft, nontender. Bowel sounds positive. No organomegaly. No masses or hernia. No rigidi ty or rebound. Extremities: No clubbing, cyanosis, but trace edema. Neurologic: Alert, awake. No acute focal deficits appreciated. Investigations: Labs are pending today. Assessment/recommendations: 1.Atrial fibrillation. Rate is still fast. Apparently with the sotalol patient is not getting cont rolled. Recommend to switch to IV amiodarone and discontinue sotalol and use metoprolol as a synergi stic effect with amiodarone. 2.Acute hypoxic respiratory failure due to pneumonia and congestive heart failure, improving gradual ly. 3.Acute on chronic heart failure exacerbation, doing well with diuretics. Monitor BUN, creatinine, electrolytes. SR/MODL Voice ID: [id number] Report ID: [id number]
[2022-10-26] MEDS ORDERED: ALBUMIN HUMAN 25% 100 ML IV ONE (13:45)
[2022-10-26 17:04] VITALS: BMI 62.6
[2022-10-26] MEDS: AMIODARONE HCL 900 MG in Dextrose 5%-Water 482 ML IV SCH (19:17)
[2022-10-26] MEDS: DULOXETINE 30 MG CAP PO SCH (21:18)
[2022-10-26] MEDS: ATORVASTATIN 40 MG TAB PO SCH (21:18)
[2022-10-26] MEDS: ARIPiprazole 5 MG TAB PO SCH (21:19)
[2022-10-27] MEDS: ALBUTEROL 2.5 MG/3 ML NEB SOL NEB SCH ×4 (01:30→20:00)
--- NOTE | 2022-10-27 01:55 | P.PN ---
Date of Service: 10/25/22 Subjective patient's oxygenation requirements have improved. Patient heart rate still elevated. Started on sotalol. Continue monitor. Pain medication as needed. Long-term prognosis is poor. Spoke to patient's son and updated him on her current clinical status. Hopefully she continues to improve will continue to monitor heart rate. Physical Examination - Vital Signs Reviewed - Physical Exam General: Alert, In no apparent distress, Oriented x3 Respiratory: Crackles/rales, Rhonchi/gurgles Cardiovascular: Normal S1 S2, No gallops, No rubs, No murmurs, Edema (2-3+), Irregular heart rate/rhythm Gastrointestinal: Normal bowel sounds, Soft and benign, Non-distended, No tenderness, No rebound, No guarding Musculoskeletal: No clubbing Neurological: history of CVA with left-sided weakness Assessment And Plan - Assessment # Acute Hypoxic Respiratory Failure - suspect secondary to Right Lower Lobe Pneumonia (Aspiration?) # Severe Sepsis likely secondary to Right Lower Lobe Pneumonia (Aspiration?) - POA # Paroxysmal Atrial Fibrillation with Rapid Ventricular Response # Acute on Chronic Decompensated Diastolic Congestive Heart Failure with Preserved Ejection Fraction # Morbid Obesity - BMI 62.6 kg/m2 # History of Cerebrovascular Accident with Resident Left-Sided Weakness # Hypertension # Hyperlipidemia # Bipolar Disorder # Depression # Anxiety # Gastroesophageal Reflux Disease - Plan Continue with plan of care as mentioned below: 1. Continue with IV antibiotics 2. Awaiting cultures 3. Repeat chest x-ray 4. Antiplatelet therapy and anticoagulation 5. Respiratory isolation is not needed 6. Continue with nebs as needed 7. O2 per protocol 8. Continue medication for rate control 9. Repeat labs 10. GI and DVT prophylaxis
--- NOTE | 2022-10-27 01:55 | P.PN ---
Date of Service: 10/24/22 Subjective Patient is a 77-year-old female who is well known to me. She suffered a stroke many years ago and since that time she has been very debilitated. She also suffered a femur fracture. She lives at [facility] and has history of atrial fibrillation. Clinically she has been declining slowly. She appears to have developed a pneumonia and is severely hypoxic. She was admitted to the hospital for further treatment. Currently she is doing better. Will continue with antibiotic therapy. Continue nebs as needed. She also takes pain medication chronically. Physical Examination - Vital Signs Reviewed - Physical Exam General: Alert, In no apparent distress, Oriented x3 Respiratory: Crackles/rales, Rhonchi/gurgles Cardiovascular: Normal S1 S2, No gallops, No rubs, No murmurs, Edema (2-3+), Irregular heart rate/rhythm Gastrointestinal: Normal bowel sounds, Soft and benign, Non-distended, No tenderness, No rebound, No guarding Musculoskeletal: No clubbing Neurological: history of CVA with left-sided weakness Assessment And Plan - Assessment # Acute Hypoxic Respiratory Failure - suspect secondary to Right Lower Lobe Pneumonia (Aspiration?) # Severe Sepsis likely secondary to Right Lower Lobe Pneumonia (Aspiration?) - POA # Paroxysmal Atrial Fibrillation with Rapid Ventricular Response # Acute on Chronic Decompensated Diastolic Congestive Heart Failure with Preserved Ejection Fraction # Morbid Obesity - BMI 62.6 kg/m2 # History of Cerebrovascular Accident with Resident Left-Sided Weakness # Hypertension # Hyperlipidemia # Bipolar Disorder # Depression # Anxiety # Gastroesophageal Reflux Disease - Plan 1. Continue with IV antibiotics 2. Awaiting sputum and blood culture 3. Repeat chest x-ray 4. Will proceed with CT scan of the chest 5. Respiratory isolation is not needed 6. Continue with nebs as needed 7. O2 per protocol 8. Continue with gentle hydration 9. Repeat labs 10. GI and DVT prophylaxis
--- NOTE | 2022-10-27 01:56 | P.PN ---
Date of Service: 10/26/22 Subjective Spoke with Cardiology and started on amiodarone drip. DC sotalol. Currently on Levaquin. Finished 5 day course. Will continue monitoring chest x-ray and make sure infiltrate is improving. Will monitor for aspiration as well. Physical Examination - Vital Signs Reviewed - Physical Exam General: Alert, In no apparent distress, Oriented x3 Respiratory: Crackles/rales, Rhonchi/gurgles Cardiovascular: Normal S1 S2, No gallops, No rubs, No murmurs, Edema (2-3+), Irregular heart rate/rhythm Gastrointestinal: Normal bowel sounds, Soft and benign, Non-distended, No tenderness, No rebound, No guarding Musculoskeletal: No clubbing Neurological: history of CVA with left-sided weakness Assessment And Plan - Assessment # Acute Hypoxic Respiratory Failure - suspect secondary to Right Lower Lobe Pneumonia (Aspiration?) # Severe Sepsis likely secondary to Right Lower Lobe Pneumonia (Aspiration?) - POA # Paroxysmal Atrial Fibrillation with Rapid Ventricular Response # Acute on Chronic Decompensated Diastolic Congestive Heart Failure with Preserved Ejection Fraction # Morbid Obesity - BMI 62.6 kg/m2 # History of Cerebrovascular Accident with Resident Left-Sided Weakness # Hypertension # Hyperlipidemia # Bipolar Disorder # Depression # Anxiety # Gastroesophageal Reflux Disease - Plan 1. Continue with IV antibiotics 2. Cx with E. coli 3. CXR improving 4. Increase ROM exercises 5. Respiratory isolation 6. Continue with nebs as needed 7. O2 per protocol 8. Advance diet 9. Repeat labs 10. GI and DVT prophylaxis
[2022-10-27 06:22] LABS: Absolute Lymphocytes (CBC) 3.9 K/uL (0.7-4.9); Hematocrit 28.4 % (36.0-45.0); Lymphocytes % 52.8 % (15.3-44.8); MCV 97.3 fL (80-100); MPV 6.7 fL (7.6-11.3); RBC Red Blood Cell Count 2.92 M/uL (3.86-4.86)
[2022-10-27 06:35] LABS: Bilirubin Total 0.3 mg/dL (0.2-1.0); Potassium 4.1 mmol/L (3.5-5.1); Protein, Total 6.2 g/dL (6.4-8.2)
[2022-10-27] MEDS ORDERED: ALBUMIN HUMAN 25% 50 ML IV ONE (08:00)
[2022-10-27] MEDS: APIXABAN 5 MG TABLET PO SCH ×2 (09:45→21:52)
[2022-10-27] MEDS: BUSPIRONE HCL 15 MG TABLET PO SCH ×3 (09:45→21:52)
[2022-10-27] MEDS: GABAPENTIN 100 MG CAP PO SCH ×3 (09:45→21:51)
[2022-10-27] MEDS: POTASS/SODIUM PHOSPHATE 1 PKT POWD.PACK PO SCH ×3 (09:45→11:26)
[2022-10-27] MEDS: PANTOPRAZOLE 40MG TABLET PO SCH (09:46)
[2022-10-27] MEDS: ASPIRIN 81 MG CHEWABLE TABLET PO SCH (09:46)
[2022-10-27] MEDS: HYDROCODONE/APAP 5/325 MG TAB PO PRN ×2 (10:03→17:15)
[2022-10-27] MEDS: D5W 1,000 ML IV SCH (17:14)
--- NOTE | 2022-10-27 19:19 | PN ---
Date of Progress Note: 10/27/2022 Subjective: Seen by bedside. On amiodarone drip. Still in atrial fibrillation. Heart rate is like ly better. Review of Systems: No chest pain. She has shortness of breath and orthopnea. No nausea, vomiting, diarrhea. No dysuri a, polyuria, or urinary urgency. All other systems reviewed and they were negative. Physical Examination: Vital Signs: Temperature is 96.7, heart rate 99, breathing at 16, blood pressure is 118/67, saturati ng 96% on room air. General: Pleasant elderly female, in no apparent distress. Head and Neck: Pupils are equal, reactive to light. Intact eye movements. No JVD. No cervical lym phadenopathy. Neck is supple. Thyroid is not enlarged. Lungs: Decreased breathing sounds with rhonchi bilaterally. No accessory muscle use or muscle retra ction. Heart: Irregularly irregular. No extra sounds. Abdomen: Soft, nontender. Bowel sounds positive. No organomegaly. No masses or hernia. No rigidi ty or rebound. Extremities: No clubbing or cyanosis. Intact pulses. Skin: No rash. Neurologic: Alert, awake, oriented x3. No acute focal deficits appreciated. Investigations: Labs were reviewed. Assessment And Recommendations: 1.Atrial fibrillation. Rate is still fast. Continue the full 24 hours of amiodarone IV load and th en switch to 200 mg twice a day by mouth and adjust the dose of metoprolol for better rate control. If she continues to be in atrial fibrillation after the full dose amiodarone, we will plan for PONCE ca rdioversion and continue anticoagulant. 2.Acute hypoxic respiratory failure due to congestive heart failure and pneumonia. Congestive heart failure appears to be under control with diuresis and she is on antibiotics. Continue current manag ement. 3.Congestive heart failure exacerbation. The patient diuresed very well and appears to be euvolemic at the present time. Continue to monitor. SR/MODL Voice ID: [id number] Report ID: [id number]
[2022-10-27] MEDS: DULOXETINE 30 MG CAP PO SCH (21:51)
[2022-10-27] MEDS: AMIODARONE HCL 900 MG in Dextrose 5%-Water 482 ML IV SCH (21:52)
[2022-10-27] MEDS: ATORVASTATIN 40 MG TAB PO SCH (21:52)
[2022-10-27] MEDS: ARIPiprazole 5 MG TAB PO SCH (21:52)
[2022-10-28] MEDS: ALBUTEROL 2.5 MG/3 ML NEB SOL NEB SCH ×4 (02:10→20:45)
[2022-10-28 09:35] LABS: Potassium 4.4 mmol/L (3.5-5.1)
[2022-10-28] MEDS: BUSPIRONE HCL 15 MG TABLET PO SCH ×3 (10:46→21:07)
[2022-10-28] MEDS: PANTOPRAZOLE 40MG TABLET PO SCH (10:46)
[2022-10-28] MEDS: HYDROCODONE/APAP 5/325 MG TAB PO PRN (10:46)
[2022-10-28] MEDS: GABAPENTIN 100 MG CAP PO SCH ×3 (10:47→21:07)
[2022-10-28] MEDS: APIXABAN 5 MG TABLET PO SCH ×2 (10:47→21:07)
[2022-10-28] MEDS: ASPIRIN 81 MG CHEWABLE TABLET PO SCH (10:47)
[2022-10-28] MEDS: D5W 1,000 ML IV SCH (13:00)
[2022-10-28] MEDS ORDERED: ALBUMIN HUMAN 25% 50 ML IV ONE (14:00)
[2022-10-28] MEDS ORDERED: METOPROLOL TAR 25 MG TAB PO SCH (18:00)
--- NOTE | 2022-10-28 18:10 | PN ---
Date of Progress Note: 10/28/2022 Subjective: Seen by bedside. Doing clinically well, appears stable. Review of Systems: No chest pain, shortness of breath, orthopnea, or cough. No nausea, vomiting, diarrhea. All other s ystems reviewed and they were negative. Physical Examination: Vital Signs: Show temperature of 96.8, heart rate 99, breathing at 18, blood pressure 107/58 saturat ing 100% on room air. General: Pleasant elderly female, in no distress. Head and Neck: Pupils are equal, reactive to light. Intact eye movements. No JVD. No cervical lym phadenopathy. Neck is supple. Thyroid is not enlarged. Lungs: Decreased breathing sounds, but no accessory muscle use or muscle retraction. Heart: Irregularly irregular. No extra sounds. Abdomen: Soft, nontender. Bowel sounds positive. No organomegaly. No masses or hernia. No rigidi ty or rebound. Extremities: No clubbing or cyanosis. Intact pulses. Skin: No rash. Neurologic: Alert, awake. No acute focal deficits appreciated. Investigations: BUN 13, creatinine 0.75, and hemoglobin is 9.4. Assessment And Recommendations: 1.Acute hypoxic respiratory failure due to congestive heart failure exacerbation and pneumonia. Fro m the congestive heart failure standpoint, the patient appears to be at baseline, now euvolemic. She can be placed on Lasix 40 mg by mouth daily. 2.Atrial fibrillation with rapid ventricular response. Heart rate is controlled now. Continue amiodarone and metoprolol as well as Eliquis. SR/MODL Voice ID: [id number] Report ID: [id number]
[2022-10-28] MEDS: METOPROLOL TAR 25 MG TAB PO SCH (19:19)
[2022-10-28] MEDS: ARIPiprazole 5 MG TAB PO SCH (21:07)
[2022-10-28] MEDS: ATORVASTATIN 40 MG TAB PO SCH (21:07)
[2022-10-28] MEDS: DULOXETINE 30 MG CAP PO SCH (21:08)
[2022-10-28] MEDS: AMIODARONE HCL 200 MG TAB PO SCH (21:08)
[2022-10-29] MEDS: ALBUTEROL 2.5 MG/3 ML NEB SOL NEB SCH ×4 (02:00→20:40)
[2022-10-29] MEDS: HYDROCODONE/APAP 5/325 MG TAB PO PRN (04:24)
[2022-10-29] MEDS: METOPROLOL TAR 25 MG TAB PO SCH ×2 (05:49→17:08)
[2022-10-29] MEDS: APIXABAN 5 MG TABLET PO SCH ×2 (08:43→21:14)
[2022-10-29] MEDS: PANTOPRAZOLE 40MG TABLET PO SCH (08:43)
[2022-10-29] MEDS: AMIODARONE HCL 200 MG TAB PO SCH ×2 (08:43→21:14)
[2022-10-29] MEDS: GABAPENTIN 100 MG CAP PO SCH ×3 (08:43→21:14)
[2022-10-29] MEDS: ASPIRIN 81 MG CHEWABLE TABLET PO SCH (08:43)
[2022-10-29] MEDS: BUSPIRONE HCL 15 MG TABLET PO SCH ×3 (08:44→21:14)
[2022-10-29] MEDS ORDERED: PNEUMOCOCCAL VACCINE 0.5 ML IMVAC ONE (12:00)
[2022-10-29] MEDS ORDERED: INFLUENZA VACCINE (for 6+ mo) 0.5 ML DOSE IMVAC ONE (12:00)
--- NOTE | 2022-10-29 13:12 | P.PN ---
Date of Service: 10/27/22 Subjective Spoke with family to update regarding patient's condition. Patient is looking better. Clinical symptoms are improving. Continue with antibiotic therapy. Continue with medication for rate control. Spoke with cardiology and will start an amiodarone drip. Continue with anticoagulation. Patient has declined and her strength has diminished. We will encourage her allow her to be active. Range of motion with upper extremities. Physical Examination - Vital Signs Reviewed - Physical Exam General: Alert, In no apparent distress, Oriented x3 Respiratory: Crackles/rales, Rhonchi/gurgles Cardiovascular: Normal S1 S2, No gallops, No rubs, No murmurs, Edema (2-3+), Irregular heart rate/rhythm Gastrointestinal: Normal bowel sounds, Soft and benign, Non-distended, No tenderness, No rebound, No guarding Musculoskeletal: No clubbing Neurological: history of CVA with left-sided weakness Assessment And Plan - Assessment # Acute Hypoxic Respiratory Failure - suspect secondary to Right Lower Lobe Pneumonia (Aspiration?) # Severe Sepsis-POA # Paroxysmal Atrial Fibrillation with Rapid Ventricular Response # Acute on Chronic Decompensated Diastolic Congestive Heart Failure with Preserved Ejection Fraction # Morbid Obesity - BMI 62.6 kg/m2 # History of Cerebrovascular Accident with Resident Left-Sided Weakness # Hypertension # Hyperlipidemia # Bipolar Disorder # Depression # Anxiety # Gastroesophageal Reflux Disease - Plan Continue with plan of care as mentioned below: 1. Continue with IV abx 2. culture negative 3. Repeat chest x-ray 4. Will proceed with CT scan of the chest 5. Respiratory isolation is not needed 6. Continue with nebs as needed 7. O2 per protocol 8. Continue with gentle hydration 9. Repeat labs 10. GI and DVT prophylaxis
--- NOTE | 2022-10-29 13:16 | P.PN ---
Date of Service: 10/28/22 Subjective Plan to change to oral amiodarone. DC IV amiodarone. Continue with antibiotics. Patient with a ESBL E. coli. Will need a PICC line and IV antibiotics arrangements. Continue with anticoagulation. Make an arrangement to go back to [facility]. Physical Examination - Vital Signs Reviewed - Physical Exam General: Alert, In no apparent distress, Oriented x3 Respiratory: Crackles/rales, Rhonchi/gurgles Cardiovascular: Normal S1 S2, No gallops, No rubs, No murmurs, Edema (2-3+), Irregular heart rate/rhythm Gastrointestinal: Normal bowel sounds, Soft and benign, Non-distended, No tenderness, No rebound, No guarding Musculoskeletal: No clubbing Neurological: history of CVA with left-sided weakness Assessment And Plan - Assessment # Acute Hypoxic Respiratory Failure - suspect secondary to Right Lower Lobe Pneumonia (Aspiration?) # Severe Sepsis likely secondary to Right Lower Lobe Pneumonia (Aspiration?) - POA # Paroxysmal Atrial Fibrillation with Rapid Ventricular Response # Acute on Chronic Decompensated Diastolic Congestive Heart Failure with Preserved Ejection Fraction # Morbid Obesity - BMI 62.6 kg/m2 # History of Cerebrovascular Accident with Resident Left-Sided Weakness # Hypertension # Hyperlipidemia # Bipolar Disorder # Depression # Anxiety # Gastroesophageal Reflux Disease - Plan 1. Continue with IV antibiotics 2. Cx with E. coli 3. CXR improving 4. Increase ROM exercises 5. Respiratory isolation 6. Continue with nebs as needed 7. O2 per protocol 8. Advance diet 9. Repeat labs 10. GI and DVT prophylaxis
--- NOTE | 2022-10-29 13:17 | P.PN ---
Date of Service: 10/29/22 Subjective Patient continues to improve. Symptoms are better. Family at bedside and had a long conversation. Bacteremic from E. coli. IV PICC line and antibiotic therapy at discharge for 7 more days. Rate controlled with amiodarone. Add low-dose beta-joaquin therapy. Continue with diet as tolerated. Anticipate discharge on Monday. Physical Examination - Vital Signs Reviewed - Physical Exam General: Alert, In no apparent distress, Oriented x3 Respiratory: Crackles/rales, Rhonchi/gurgles Cardiovascular: Normal S1 S2, No gallops, No rubs, No murmurs, Edema (2-3+), Irregular heart rate/rhythm Gastrointestinal: Normal bowel sounds, Soft and benign, Non-distended, No tenderness, No rebound, No guarding Musculoskeletal: No clubbing Neurological: history of CVA with left-sided weakness Assessment And Plan - Assessment # Acute Hypoxic Respiratory Failure - suspect secondary to Right Lower Lobe Pneumonia (Aspiration?) # Severe Sepsis likely secondary to Right Lower Lobe Pneumonia (Aspiration?) - POA # Paroxysmal Atrial Fibrillation with Rapid Ventricular Response # Acute on Chronic Decompensated Diastolic Congestive Heart Failure with Preserved Ejection Fraction # Morbid Obesity - BMI 62.6 kg/m2 # History of Cerebrovascular Accident with Resident Left-Sided Weakness # Hypertension # Hyperlipidemia # Bipolar Disorder # Depression # Anxiety # Gastroesophageal Reflux Disease - Plan 1. Continue with IV antibiotics 2. Cx with E. coli 3. CXR improving 4. Increase ROM exercises 5. Respiratory isolation 6. Continue with nebs as needed 7. O2 per protocol 8. Advance diet 9. Repeat labs 10. GI and DVT prophylaxis
[2022-10-29] MEDS ORDERED: ERTAPENEM SODIUM 1 GM VIAL IVPB SCH (14:00)
[2022-10-29 15:12] LABS: Renal Epithelial <5 /HPF (None Seen); Specific Gravity 1.008 (1.005-1.030); Transitional Epithelial <5 /HPF (None Seen); Urine Bacteria <20 /HPF (<20); Urine Bilirubin NEGATIVE (Negative); Urine Blood 1+ (Negative); Urine Clarity Turbid (Clear); Urine Color Light-Yellow (Yellow); Urine Glucose NEGATIVE (Negative); Urine Mucus Slight /HPF (None Seen); Urine Protein NEGATIVE (Negative); Urine Urobilinogen Normal (Normal); Urine WBC Clump Occasional /HPF (None Seen)
[2022-10-29 15:14] LABS: Barbiturates NEGATIVE (NEGATIVE); Benzodiazepines NEGATIVE (NEGATIVE); Cocaine NEGATIVE (NEGATIVE); METHAMPHETAM NEGATIVE (NEGATIVE); Methadone NEGATIVE (NEGATIVE); Opiates POSITIVE (NEGATIVE); Phencyclidine NEGATIVE (NEGATIVE); THC Cannibis NEGATIVE (NEGATIVE)
[2022-10-29] MEDS: Meropenem 1,000 MG in NA CHLORIDE 0.9% 100 ML IV SCH ×2 (15:16→21:15)
[2022-10-29] MEDS ORDERED: HYDROMORPHONE HCL 0.5 MG/0.5 ML INJ IV ONE (21:00)
[2022-10-29] MEDS: DULOXETINE 30 MG CAP PO SCH (21:14)
[2022-10-29] MEDS: ATORVASTATIN 40 MG TAB PO SCH (21:14)
[2022-10-29] MEDS: ARIPiprazole 5 MG TAB PO SCH (21:14)
[2022-10-30] MEDS: ALBUTEROL 2.5 MG/3 ML NEB SOL NEB SCH ×4 (02:15→20:00)
[2022-10-30] MEDS: METOPROLOL TAR 25 MG TAB PO SCH ×2 (05:37→17:17)
[2022-10-30] MEDS: Meropenem 1,000 MG in NA CHLORIDE 0.9% 100 ML IV SCH ×3 (05:42→22:00)
[2022-10-30] MEDS: HYDROCODONE/APAP 5/325 MG TAB PO PRN (05:47)
[2022-10-30 07:18] LABS: Absolute Lymphocytes (CBC) 1.6 K/uL (0.7-4.9); Hematocrit 27.5 % (36.0-45.0); Lymphocytes % 27.9 % (15.3-44.8); MCV 97.2 fL (80-100); RBC Red Blood Cell Count 2.83 M/uL (3.86-4.86)
[2022-10-30 07:33] LABS: Albumin 2.1 g/dL (3.4-5.0); Bilirubin Total 0.4 mg/dL (0.2-1.0); Magnesium 2.2 mg/dL (1.6-2.4); Potassium 4.4 mmol/L (3.5-5.1); Protein, Total 5.8 g/dL (6.4-8.2)
--- NOTE | 2022-10-30 07:34 | RAD REPORT ---
EXAM DESCRIPTION: RAD - Chest Single View - 10/30/2022 7:02 am CLINICAL HISTORY: pneumonia COMPARISON: Chest Single View dated 10/26/2022; Chest Single View dated 10/22/2022; Chest Single View dated 08/22/2022; Chest Single View dated 08/18/2022 FINDINGS: Lines: None. Lungs: Left lung base partially obscured. Pleural: Difficult to exclude small left effusion. Cardiac: Cardiomegaly. Mediastinum: Within normal limits. Bones: No acute fractures. Other: None IMPRESSION: No definite acute process. Partially obscured left lung base favored related to portable technique and underpenetration rather than an acute airspace process.
[2022-10-30] MEDS: APIXABAN 5 MG TABLET PO SCH ×2 (08:00→22:01)
[2022-10-30] MEDS: GABAPENTIN 100 MG CAP PO SCH ×3 (08:00→22:02)
[2022-10-30] MEDS: PANTOPRAZOLE 40MG TABLET PO SCH (08:00)
[2022-10-30] MEDS: ASPIRIN 81 MG CHEWABLE TABLET PO SCH (08:00)
[2022-10-30] MEDS: BUSPIRONE HCL 15 MG TABLET PO SCH ×3 (08:00→22:01)
[2022-10-30] MEDS: AMIODARONE HCL 200 MG TAB PO SCH ×2 (08:00→22:01)
[2022-10-30 08:37] LABS: Blood Morphology Comment NOT SEEN (NOT SEEN); Platelet Estimate ADEQ; Toxic Granulation PRESENT
[2022-10-30] MEDS: ATORVASTATIN 40 MG TAB PO SCH (22:01)
[2022-10-30] MEDS: ARIPiprazole 5 MG TAB PO SCH (22:01)
[2022-10-30] MEDS: DULOXETINE 30 MG CAP PO SCH (22:01)
[2022-10-31] MEDS: ALBUTEROL 2.5 MG/3 ML NEB SOL NEB SCH ×4 (01:40→19:25)
[2022-10-31] MEDS ORDERED: LORAZEPAM 0.5 MG TABLET PO PRN (01:59)
--- NOTE | 2022-10-31 02:09 | P.PN ---
Date of Service: 10/30/22 Subjective Patient is a 77-year-old female came to the hospital with acute hypoxic respiratory failure. Patient was found have a pneumonia in the right lower lobe. Patient also had gone into atrial fibrillation with rapid ventricular response. Pneumonia has cleared up. Patient was initially on 35% oxygen and patient has been weaned off. Patient's heart rate was in the 130s. Patient was started on amiodarone drip after sotalol did not bring the heart rate down. Sotalol was stopped and amiodarone was continued and heart rates in the 80s. Addition of beta-joaquin to regimen as well. Patient's cultures also grew out an ESBL organism. Patient has a chronic history of urinary tract infections and she may be colonized. He overall is doing much better and she looks like she is stable for discharge to [facility]. It we get a midline where we can arrange for outpatient antibiotic therapy. At this time, she is clinically doing well and she should be stable for discharge home in the morning. If unable to do a PICC line or mid line as patient states that that had a very hard time in the past then we could probably do Invanz IM for 5 more days. I will repeat the urinalysis to see if the Urine more sterile. Physical Examination - Vital Signs Reviewed - Physical Exam General: Alert, In no apparent distress, Oriented x3 Respiratory: Crackles/rales, Rhonchi/gurgles Cardiovascular: Normal S1 S2, No gallops, No rubs, No murmurs, Edema (2-3+), Irregular heart rate/rhythm Gastrointestinal: Normal bowel sounds, Soft and benign, Non-distended, No tenderness, No rebound, No guarding Musculoskeletal: No clubbing Neurological: history of CVA with left-sided weakness Assessment And Plan - Assessment # Acute Hypoxic Respiratory Failure - suspect secondary to Right Lower Lobe Pneumonia (Aspiration?) # Severe Sepsis likely secondary to Right Lower Lobe Pneumonia (Aspiration?) - POA # Paroxysmal Atrial Fibrillation with Rapid Ventricular Response # Acute on Chronic Decompensated Diastolic Congestive Heart Failure with Preserved Ejection Fraction # Morbid Obesity - BMI 62.6 kg/m2 # History of Cerebrovascular Accident with Resident Left-Sided Weakness # Hypertension # Hyperlipidemia # Bipolar Disorder # Depression # Anxiety # Gastroesophageal Reflux Disease - Plan Continue with plan of care as mentioned below: 1. Continue with IV antibiotics; Merrem 2. Cx with E. coli ESBL 3. CXR improved; pneumonia resolved 4. Increase ROM exercises 5. Midline/PICC line or IM Invanz 6. Continue with nebs as needed 7. O2 per protocol 8. Advance diet 9. DC sotalol and continue with amiodarone with oral lopressor 10. GI and DVT prophylaxis
[2022-10-31] MEDS: Meropenem 1,000 MG in NA CHLORIDE 0.9% 100 ML IV SCH ×3 (06:00→21:00)
[2022-10-31] MEDS: METOPROLOL TAR 25 MG TAB PO SCH ×2 (06:14→17:34)
[2022-10-31] MEDS: GABAPENTIN 100 MG CAP PO SCH ×3 (07:56→20:57)
[2022-10-31] MEDS: PANTOPRAZOLE 40MG TABLET PO SCH (07:56)
[2022-10-31] MEDS: AMIODARONE HCL 200 MG TAB PO SCH ×2 (07:57→20:58)
[2022-10-31] MEDS: APIXABAN 5 MG TABLET PO SCH ×2 (07:57→20:58)
[2022-10-31] MEDS: BUSPIRONE HCL 15 MG TABLET PO SCH ×3 (07:57→20:57)
[2022-10-31] MEDS: ASPIRIN 81 MG CHEWABLE TABLET PO SCH (07:57)
--- NOTE | 2022-10-31 08:24 | P.CNS ---
Date of Consult: 10/31/22 Chief Complaint: RLL PNA, sepsis History of Present Illness: This is a 77-year-old female with past medical history of anemia, anxiety, atrial flutter, cerebral infarction, CHF, COPD, depressive disorder, dysphagia. Patient presents to the emergency department via EMS with complaints of shortness of breath. Unable to obtain history. Patient is arousable to painful stimuli and is able to shake her head to simple commands. Per EMS, patient had fever, cough, shortness of breath with oxygenation in the 70s at home. Her oxygenation was improved with BiPAP. Patient's chest x-ray demonstrated right lower lobe pneumonia. Her breath sounds were rhonchorous. Patient also presented with +2 right lower extremity edema. Her EKG demonstrated A. fib with RVR with heart rate in the 130s. She also had a lactic of 2.6, temperature 100, respirations 26, heart rate 117. Urine test on 10/24 shows patient positive with E. Coli (MDR) and Proteus marabilis ESBL; on 10/29 UC positive with Gram Neg Sukumar. ID has been consulted for IV antibiotics recommendation and Management. Allergies iodine Allergy (Verified 12/22/16 01:47) Hives/Rash latex Allergy (Verified 12/22/16 01:47) Hives/Rash Latex, Natural Rubber Allergy (Verified 02/01/18 20:29) Itching/Hives/Rash morphine Allergy (Verified 12/22/16 01:47) Hives Penicillins Allergy (Verified 12/22/16 01:47) Hives/Rash haloperidol [From Haldol] Adverse Reaction (Verified 12/22/16 01:47) anxiety haloperidol lactate [From Haldol] Adverse Reaction (Verified 12/22/16 01:47) anxiety Home Medications: Acetaminophen [Tylenol] 2 tab PO Q6H PRN 06/18/22 Albuterol Sulfate [Ventolin Hfa] 2 puff IN Q6H PRN 06/18/22 Ascorbic Acid 500 mg PO DAILY 06/18/22 Aspirin Chewable [Aspirin Chewable*] 1 tab PO DAILY 06/18/22 Docusate Sodium 1 tab PO BID 06/18/22 Duloxetine HCl 2 cap PO BEDTIME 06/18/22 Menthol [Biofreeze] 1 amrkie TOP Q6H PRN 06/18/22 Pantoprazole Sodium [Protonix] 1 tab PO DAILY 06/18/22 Polysorbate 80/Glycerin [Refresh Dry Eye Therapy Drops] 2 drop OP QID 06/18/22 Sennosides [Senokot] 1 tab PO BID 06/18/22 Temazepam 22.5 mg PO BEDTIME 06/18/22 Zinc Gluconate [Zinc] 220 mg PO DAILY 06/18/22 Atorvastatin Calcium [Lipitor] 40 mg PO BEDTIME tab 06/20/22 Apixaban [Eliquis] 5 mg PO BID 08/22/22 Metoprolol Tartrate [Lopressor*] 25 mg PO BID 6AM 6PM tab 08/22/22 Aripiprazole [Abilify] 10 mg PO BEDTIME 10/23/22 Buspirone HCl [Buspar] 15 mg PO TID 10/23/22 Carboxymethylcellulose Sodium [Refresh Plus] 1 each OP QIDP PRN 10/23/22 Ferrous Sulfate [Feosol] 325 mg PO DAILY 10/23/22 Furosemide [Lasix] 40 mg PO BIDL 10/23/22 Gabapentin [Neurontin] 100 mg PO TID 10/23/22 Hydrocodone 5/APAP 325 [[place] 5/325] 1 tab PO Q8HP PRN 10/23/22 Ipratropium/Albuterol Sulfate [Iprat-Albut 0.5-3(2.5) mg/3 ml] 3 ml IH QID 10/23/22 Lidocaine 4% Patch [Lidoderm 5% Patch] 1 patch TD DAILY 10/23/22 Multivitamin [Multiple Vitamins] 1 each PO DAILY 10/23/22 Polyethylene Glycol 3350 [Miralax] 17 gm PO DAILYPRN PRN 10/23/22 Potassium Chloride [Klor-Con 10] 10 meq PO BID 10/23/22 Triamcinolone Acetonide 15 gm TP BID 10/23/22 guaiFENesin [Guaifenesin ER] 600 mg PO Q12HP PRN 10/23/22 hydrOXYzine HCL [Atarax] 25 mg PO TID 10/23/22 - Past Medical/Surgical History Diabetic: No -: Hypertension -: COPD -: CHF chronic diastolic -: Atrial fibrillation on anticoagulation -: Depression with anxiety -: Morbid obesity -: Obstructive sleep apnea -: Lymphedema -: Bedbound post bilateral knee replacements -: CVA -: Hysterectomy -: Appendectomy -: Right knee replacement -: Left knee replacement Psychosocial/ Personal History: Currently resides at [facility], is primarily bedbound gets around by wheelchair. - Family History Mother Notes: alzheimers - Social History Smoking Status: Unknown if ever smoked Alcohol use: No CD- Drugs: No Caffeine use: Yes Place of Residence: Shelter Review of Systems Gastrointestinal: Constipation Genitourinary: Other (mal-odor and cloudy urine) Musculoskeletal: Other (B/L knee replacements) Physical Examination Temp Pulse Resp BP Pulse Ox 97.1 F 99 H 18 111/57 L 95 10/31/22 04:00 10/31/22 06:14 10/31/22 04:00 10/31/22 06:14 10/31/22 04:00 General: Alert, In no apparent distress, Oriented x3 HEENT: Other (glasses) Respiratory: Crackles/rales, Rhonchi/gurgles, Other (1.5 L NC) Cardiovascular: Edema (2+ legs), Irregular heart rate/rhythm Gastrointestinal: Normal bowel sounds Musculoskeletal: Swelling (2+ legs), Other (B/L knee placements) Integumentary: Other (ecchymoses of upper extremities) Neurological: Other (had stroke with left side weakness) Urinary: Other (purewick in place, yeimi and cloudy) Albuterol Sulfate (Albuterol 2.5 Mg/3 Ml Neb Katrin) 2.5 mg NEB [id number] [facility] Last Admin: 10/31/22 01:40 Dose: 2.5 mg Amiodarone HCl (Amiodarone Hcl 200 Mg Tab) 200 mg PO BID [facility] Last Admin: 10/31/22 07:57 Dose: 200 mg Apixaban (Apixaban 5 Mg Tablet) 5 mg PO BID [facility] Last Admin: 10/31/22 07:57 Dose: 5 mg Aripiprazole (Aripiprazole 5 Mg Tab) 10 mg PO BEDTIME [facility] Last Admin: 10/30/22 22:01 Dose: 10 mg Aspirin (Aspirin 81 Mg Chewable Tablet) 81 mg PO DAILY [facility] Last Admin: 10/31/22 07:57 Dose: 81 mg Atorvastatin Calcium (Atorvastatin 40 Mg Tab) 40 mg PO BEDTIME [facility] Last Admin: 10/30/22 22:01 Dose: 40 mg Buspirone HCl (Buspirone Hcl 15 Mg Tablet) 15 mg PO TID [facility] Last Admin: 10/31/22 07:57 Dose: 15 mg Duloxetine HCl (Duloxetine 30 Mg Cap) 120 mg PO BEDTIME [facility] Last Admin: 10/30/22 22:01 Dose: 120 mg Gabapentin (Gabapentin 100 Mg Cap) 100 mg PO TID [facility] Last Admin: 10/31/22 07:56 Dose: 100 mg Meropenem 1,000 mg/ Sodium (Chloride) 100 mls @ 200 mls/hr IV Q8H [facility] Last Admin: 10/31/22 06:00 Dose: 100 mls Lorazepam (Lorazepam 0.5 Mg Tablet) 0.5 mg PO BID PRN PRN Reason: ANXIETY Metoprolol Tartrate (Metoprolol Tar 25 Mg Tab) 25 mg PO BID 6AM 6PM [facility] Last Admin: 10/31/22 06:14 Dose: 25 mg Ondansetron HCl (Ondansetron 4 Mg/2 Ml Vial) 4 mg IV Q6HP PRN PRN Reason: NAUSEA / VOMITING Last Admin: 10/26/22 13:54 Dose: 4 mg Pantoprazole Sodium (Pantoprazole 40mg Tablet) 40 mg PO DAILY [facility]; Protocol Last Admin: 10/31/22 07:56 Dose: 40 mg Sodium Chloride (Flush Normal Saline 10 Ml) 10 ml IV BID [facility] Last Admin: 10/31/22 07:57 Dose: 10 ml - Problems (1) UTI (urinary tract infection) Onset Date: 12/22/16 Current Visit: No Status: Acute Plan: Culture: 10/29 UC: Gram Neg Sukumar 10/24 UC: E. Coli (MDR) and Proteus mirabilis ESBL 10/22 BC x2: Negative Antibiotics: Current on IV Meropenem, 10/29 to Recommendation: Continue IV Meropenem for total of total of 7 Days Plan to have PICC placement today and d/c back to [facility] Conclusions/Impression: - UTI - Right lower lobe pneumonia - Sepsis due to pulmonary infection - Atrial fibrillation with RVR on chronic anticoagulation - Hypertension - COPD - Hyperlipidemia - Acute on chronic diastolic congestive heart failure - Depression with anxiety - Morbid obesity - Obstructive sleep apnea - Lymphedema - Bed-bound post bilateral knee replacements - CVA with left side weakness - Right knee replacement - Left knee replacement ID will continue monitor the patient for signs of infection with fever and WBC trends Case has been discussed with Ravinder Goncalves Thank you Dr. Woodruff for consultation
[2022-10-31] MEDS: HYDROCODONE/APAP 5/325 MG TAB PO PRN ×2 (11:53→20:56)
--- NOTE | 2022-10-31 17:13 | RAD REPORT ---
EXAM DESCRIPTION: RAD - Chest Single View - 10/31/2022 5:04 pm CLINICAL HISTORY: PICC line placement COMPARISON: Chest Single View dated 10/30/2022; Chest Single View dated 10/26/2022; Chest Single View dated 10/22/2022; Chest Single View dated 08/22/2022 FINDINGS: Lines: Right subclavian approach PICC with tip overlying the SVC. Lungs: No evidence of edema or pneumonia. Pleural: No significant pleural effusions or pneumothorax. Cardiac: Similar cardiomegaly. Mediastinum: Within normal limits. Bones: No acute fractures. Other: None IMPRESSION: PICC in satisfactory position with tip overlying the distal SVC. No acute process identi fied within the lungs.
--- NOTE | 2022-10-31 17:13 | P.PN ---
Subjective Date of Service: 10/31/22 Chief Complaint: RLL PNA, sepsis She has improved significantly since I saw her about a week ago. She endorses no concerns at this time. She is awaiting PICC line placement for home antibiotics. Anticipate discharge once PICC is placed and home IV antibiotics are arranged. She denies any chest pain or shortness of breath. Review of Systems 10-point ROS is otherwise unremarkable General: Weakness (generalized) Physical Examination - Vital Signs Temperature: 97.0 F Blood Pressure: 117/62 Pulse: 72 Respirations: 16 Pulse Ox (%): 95 Assessment And Plan - Plan - Physical Exam General: Alert, In no apparent distress, Oriented x3 HEENT: Atraumatic, Sclerae nonicteric Neck: JVD not distended (difficult to assess given habitus) Respiratory: Clear to auscultation bilaterally without wheezes, rhonchi, or rales Cardiovascular: Normal S1 S2, No gallops, No rubs, No murmurs, Edema (1+ BLE), Irregular heart rate/rhythm Gastrointestinal: Normal bowel sounds, Soft and benign, Non-distended, No tenderness Musculoskeletal: No clubbing Integumentary: No rashes Neurological: Normal speech, Normal affect # Acute Hypoxic Respiratory Failure - suspect secondary to Right Lower Lobe Pneumonia (Aspiration?) - improved - Evaluation thus far: - Procalcitonin = 7.98 -> 2.36 - COVD-19/influenza = negative - ABG (taken on BiPAP) = pH 7.35, PCO2 50.3, PO2 82.2 - Chest x-ray = "low lung volumes with right basilar opacities that could reflect atelectasis and/or pneumonia." - Management plan: - Consulted Pulmonary Medicine - recommendations appreciated - Consulted Infectious Diseases - recommendations appreciated - Consulted Respiratory Therapy - Supplemental oxygen to maintain SpO2 > 92% - Continue meropenem - PRN benzonatate, guaifenesin - Encouraged incentive spirometry # Severe Sepsis likely secondary to Right Lower Lobe Pneumonia (Aspiration?) +/- Escherichia Coli and ESBL Proteus Mirabilis Urinary Tract Infection She met sepsis criteria based on HR > 90 bpm and RR > 20 breaths/min, and the suspected source is pulmonary. Severe sepsis is suspected due to concern for tissue hypoperfusion/organ dysfunction based on acute respiratory failure requiring BiPAP and lactic acid > 2 mmol/L. - Sepsis order set was initiated - Lactate trend was 2.6 -> 2.5 - Blood cultures drawn before antibiotics were given - Broad spectrum antibiotics started: Meropenem - In regards to fluids: - 30 mL/kg of IV fluids was not administered given SBP > 90, MAP > 65, lactic acid < 4, and concern for volume overload (CHF) # Paroxysmal Atrial Fibrillation with Rapid Ventricular Response Her [id number] = 6 (CHF=1, HTN=1, Age>75=2, CVA=1, Sex=1), which warrants anticoagulation. - Continue home metoprolol, amiodarone, apixaban # Acute on Chronic Decompensated Diastolic Congestive Heart Failure with Preserved Ejection Fraction # Morbid Obesity - BMI 62.6 kg/m2 - Consult Cardiology - recommendations appreciated - Transthoracic echocardiogram (08/19/2022) = "1. left atrial enlargement 2. no wall motion abnormality 3. normal ejection fraction 4. no effusion" - NT- Pro BNP = 7743 (may be falsely low in obesity) - Diuresis with furosemide - Continue home metoprolol - Daily weights - Strict I/O - Cardiac diet, 1.5 L fluid restriction, 2 g Na restriction # History of Cerebrovascular Accident with Resident Left-Sided Weakness # Hypertension # Hyperlipidemia - Continue aspirin, atorvastatin # Bipolar Disorder # Depression # Anxiety - Continue buspirone, aripiprazole, duloxetine, gabapentin # Gastroesophageal Reflux Disease - Continue home pantoprazole Nathan Woodruff M.D.
[2022-10-31] MEDS: DULOXETINE 30 MG CAP PO SCH (20:57)
[2022-10-31] MEDS: ARIPiprazole 5 MG TAB PO SCH (20:57)
[2022-10-31] MEDS: ATORVASTATIN 40 MG TAB PO SCH (20:58)
--- NOTE | 2022-10-31 21:22 | PN ---
Date of Progress Note: 10/31/2022 Subjective: Seen by bedside. Clinically doing well. Heart rate has improved. Review of Systems: No chest pain, shortness of breath, orthopnea, cough, nausea, vomiting, or diarrhea. All other syste ms reviewed are negative. Objective: Vital Signs: Temperature is 97, pulse 72, breathing at 16, blood pressure 117/62, satura ting 95% on room air. General: Pleasant elderly female, in no apparent distress. Morbidly obese. Head and Neck: Pupils are equal, reactive to light. Intact eye movements. No JVD. No cervical lym phadenopathy. Neck: Supple. Thyroid is not enlarged. Lungs: Clear to auscultation bilaterally. No rhonchi, wheezing, or crackles. No accessory muscle u se. Heart: Irregular. No extra sounds. Abdomen: Soft, nontender. Bowel sounds positive. No organomegaly. No masses or hernia. No rigidi ty or rebound. Extremities: No edema, clubbing, or cyanosis. Intact pulses. Skin: No rash. Neurologic: Alert, awake. No acute focal deficits appreciated. Lymph Nodes: No cervical or axillary lymphadenopathy. Investigations: BUN 15, creatinine 0.96. Hemoglobin is 9.1. Assessment And Recommendations: 1.Atrial fibrillation is much better controlled right now. Continue current regimen, the amiodarone and metoprolol as well as Eliquis. 2.Congestive heart failure exacerbation. She appears to be euvolemic, doing much better. Recommend to put her on Lasix 40 mg by mouth daily. 3.Acute hypoxic respiratory failure. This is resolved. SR/MODL Voice ID: [id number] Report ID: [id number]
[2022-11-01] MEDS: ALBUTEROL 2.5 MG/3 ML NEB SOL NEB SCH ×2 (01:45→07:54)
[2022-11-01] MEDS: Meropenem 1,000 MG in NA CHLORIDE 0.9% 100 ML IV SCH (05:34)
[2022-11-01] MEDS: METOPROLOL TAR 25 MG TAB PO SCH (05:49)
[2022-11-01 05:58] VITALS: BP 110/70
[2022-11-01 06:42] VITALS: TEMP 96.6
--- NOTE | 2022-11-01 07:16 | P.DS ---
Admission Date: 10/22/22 Discharge Date: 11/01/22 Disposition: TRANSFER TO LONGTERM Discharge Condition: GOOD Reason for Admission: RLL PNA, sepsis Consultations: 1. Infectious Diseases 2. Pulmonary Medicine 3. Cardiology Hospital Course: DIAGNOSES: # Acute Hypoxic Respiratory Failure - suspect secondary to Right Lower Lobe Pneumonia (Aspiration?) - improved # Severe Sepsis likely secondary to Right Lower Lobe Pneumonia (Aspiration?) +/- Escherichia Coli and ESBL Proteus Mirabilis Urinary Tract Infection # Paroxysmal Atrial Fibrillation with Rapid Ventricular Response # Acute on Chronic Decompensated Diastolic Congestive Heart Failure with Preserved Ejection Fraction # Hypoglycemia - resolved # Morbid Obesity - BMI 62.6 kg/m2 # History of Cerebrovascular Accident with Resident Left-Sided Weakness # Hypertension # Hyperlipidemia # Bipolar Disorder # Depression # Anxiety # Gastroesophageal Reflux Disease HOSPITAL COURSE: Ms. Rocio Quiroz is a pleasant 77 year old female with a past medical history significant for chronic diastolic congestive heart failure, paroxysmal atrial fibrillation, prior cerebrovascular accident with residual left sided weakness, hypertension, hyperlipidemia, bipolar disorder, and depression who was admitted to the [facility] on 10/22/2022 for shortness of breath. She was admitted to the Medicine service. Upon further evaluation, she was found to have acute hypoxic respiratory failure due to right lower lobe pneumonia and atrial fibrillation with rapid ventricular response. Cardiology was consulted and she was evaluated by Dr. Bhandari. In addition to her home metoprolol, she was started on amiodarone, with improvement in her heart rates. For her pneumonia, she was treated with IV antibiotics, with some improvement in her symptoms. However, in addition to her pneumonia, she was found to have an ESBL Proteus Mirabilis urinary tract infection. Infectious Diseases was consulted and she was evaluated by Dr. Dasilva. He recommended that she be started on meropenem. A PICC line was placed and meropenem was arranged at [facility]. She has been cleared for discharge with outpatient follow-up. On 11/01/2022, she was seen on rounds and deemed medically stable for discharge. She was given the opportunity to ask questions and reported no further questions. Furthermore, all questions were answered to the best of my ability. A copy of this discharge summary will be sent to the above providers to facilitate continuity of care. Today, I personally spent 20 minutes on her case, of which greater than 50% of the time was spent in patient education, counseling, and coordination of care as described above. - Physical Exam General: Alert, In no apparent distress, Oriented x3 HEENT: Atraumatic, Sclerae nonicteric Neck: JVD not distended (difficult to assess given habitus) Respiratory: Clear to auscultation bilaterally without wheezes, rhonchi, or rales Cardiovascular: Normal S1 S2, No gallops, No rubs, No murmurs, Edema (1+ BLE), Irregular heart rate/rhythm Gastrointestinal: Normal bowel sounds, Soft and benign, Non-distended, No tenderness Musculoskeletal: No clubbing Integumentary: No rashes Neurological: Normal speech, Normal affect Vital Signs/Physical Exam: Temp Pulse Resp BP Pulse Ox 96.6 F L 83 19 110/70 100 11/01/22 04:00 11/01/22 05:49 11/01/22 04:00 11/01/22 05:49 11/01/22 04:00 Laboratory Data at Discharge: WBC 5.80 K/uL (4.3-10.9) 10/30/22 06:18 Hgb 9.1 g/dL (12.0-15.0) L 10/30/22 06:18 Hct 27.5 % (36.0-45.0) L 10/30/22 06:18 Plt Count 122 K/uL (152-406) L 10/30/22 06:18 PT 17.0 SECONDS (9.5-12.5) H 10/22/22 09:50 INR 1.55 10/22/22 09:50 APTT 33.1 SECONDS (24.3-36.9) 10/22/22 09:50 Sodium 139 mmol/L (136-145) 10/30/22 06:18 Potassium 4.4 mmol/L (3.5-5.1) 10/30/22 06:18 BUN 15 mg/dL (7-18) 10/30/22 06:18 Creatinine 0.96 mg/dL (0.55-1.02) 10/30/22 06:18 Glucose 116 mg/dL (74-106) H 10/30/22 06:18 Phosphorus 2.5 mg/dL (2.5-4.9) 10/26/22 08:44 Magnesium 2.2 mg/dL (1.6-2.4) 10/30/22 06:18 Total Bilirubin 0.4 mg/dL (0.2-1.0) 10/30/22 06:18 AST 18 U/L (15-37) 10/30/22 06:18 ALT 16 U/L (13-56) 10/30/22 06:18 Alkaline Phosphatase 128 U/L (45-117) H 10/30/22 06:18 Triglycerides 52 mg/dL (<150) 10/23/22 02:34 Cholesterol 98 mg/dL (<200) 10/23/22 02:34 HDL Cholesterol 52 mg/dL (40-60) 10/23/22 02:34 Cholesterol/HDL Ratio 1.88 10/23/22 02:34 Home Medications: Acetaminophen [Tylenol] 2 tab PO Q6H PRN 06/18/22 Albuterol Sulfate [Ventolin Hfa] 2 puff IN Q6H PRN 06/18/22 Ascorbic Acid 500 mg PO DAILY 06/18/22 Aspirin Chewable [Aspirin Chewable*] 1 tab PO DAILY 06/18/22 Docusate Sodium 1 tab PO BID 06/18/22 Duloxetine HCl 2 cap PO BEDTIME 06/18/22 Menthol [Biofreeze] 1 markie TOP Q6H PRN 06/18/22 Pantoprazole Sodium [Protonix] 1 tab PO DAILY 06/18/22 Polysorbate 80/Glycerin [Refresh Dry Eye Therapy Drops] 2 drop OP QID 06/18/22 Sennosides [Senokot] 1 tab PO BID 06/18/22 Temazepam 22.5 mg PO BEDTIME 06/18/22 Zinc Gluconate [Zinc] 220 mg PO DAILY 06/18/22 Atorvastatin Calcium [Lipitor] 40 mg PO BEDTIME tab 06/20/22 Apixaban [Eliquis] 5 mg PO BID 08/22/22 Metoprolol Tartrate [Lopressor*] 25 mg PO BID 6AM 6PM tab 08/22/22 Aripiprazole [Abilify] 10 mg PO BEDTIME 10/23/22 Buspirone HCl [Buspar] 15 mg PO TID 10/23/22 Carboxymethylcellulose Sodium [Refresh Plus] 1 each OP QIDP PRN 10/23/22 Ferrous Sulfate [Ferrous Sulfate*] 325 mg PO DAILY 10/23/22 Furosemide [Lasix*] 40 mg PO BIDL 10/23/22 Gabapentin [Neurontin*] 100 mg PO TID 10/23/22 Hydrocodone 5/APAP 325 [[place] 5/325*] 1 tab PO Q8HP PRN 10/23/22 Ipratropium/Albuterol Sulfate [Iprat-Albut 0.5-3(2.5) mg/3 ml] 3 ml IH QID 10/23/22 Lidocaine 4% Patch [Lidoderm 5% Patch*] 1 patch TD DAILY 10/23/22 Multivitamin [Multiple Vitamins] 1 each PO DAILY 10/23/22 Polyethylene Glycol 3350 [Miralax] 17 gm PO DAILYPRN PRN 10/23/22 Potassium Chloride [Klor-Con 10] 10 meq PO BID 10/23/22 Triamcinolone Acetonide 15 gm TP BID 10/23/22 guaiFENesin [Guaifenesin ER] 600 mg PO Q12HP PRN 10/23/22 hydrOXYzine HCL [Atarax*] 25 mg PO TID 10/23/22 Amiodarone HCl [Cordarone*] 200 mg PO BID tab 11/01/22 Meropenem [Merrem 1 GM/100 ML NS IVPB] 1 gm IV Q8H 7 Days #2000 ml 11/01/22 New Medications: Meropenem [Merrem 1 GM/100 ML NS IVPB] 1 gm IV Q8H 7 Days #2000 ml Physician Discharge Instructions: There is a small amount of blood in your urine. Although this may be related to your urinary tract infection, it can be a sign of an underlying bladder or kidney cancer. Please have your PCP re-evaluate this once your urinary tract infection has been treated. Diet: AHA Activity: Fall precautions Followup: Wily Bhandari MD [ACTIVE - CAN ADMIT] - Natalia Hua MD [OUTSIDE PHYSICIAN] - Time spent managing pt's care (in minutes): 20
--- NOTE | 2022-11-01 08:00 | P.PN ---
Subjective Date of Service: 11/01/22 Chief Complaint: RLL PNA, sepsis Patient lying in bed in good spirit. Denied having chest pain, nausea, vomiting, diarrhea, or constipation Physical Examination - Vital Signs Temperature: 96.6 F Blood Pressure: 110/70 Pulse: 83 Respirations: 19 Pulse Ox (%): 100 - Physical Exam General: Alert, In no apparent distress, Oriented x3 HEENT: Other (glasses) Respiratory: Crackles/rales, Rhonchi/gurgles Cardiovascular: Edema (2+ feet), Irregular heart rate/rhythm Gastrointestinal: Normal bowel sounds Musculoskeletal: Swelling (2+ feet), Other (b/l knees replacements) Integumentary: Other (ecchymoses of upper extremities) Neurological: Other (had stroke with left side weakness) Urinary: Other (purewick in place, yeimi and clear) - Studies Hydrocodone Bitart/Acetaminophen (Hydrocodone/Apap 5/325 Mg Tab) 1 tab PO Q8H PRN PRN Reason: Pain scale 5-7 (Moderate) Last Admin: 10/31/22 20:56 Dose: 1 tab Albuterol Sulfate (Albuterol 2.5 Mg/3 Ml Neb Katrin) 2.5 mg NEB [id number] [facility] Last Admin: 11/01/22 01:45 Dose: 2.5 mg Amiodarone HCl (Amiodarone Hcl 200 Mg Tab) 200 mg PO BID [facility] Last Admin: 10/31/22 20:58 Dose: 200 mg Apixaban (Apixaban 5 Mg Tablet) 5 mg PO BID [facility] Last Admin: 10/31/22 20:58 Dose: 5 mg Aripiprazole (Aripiprazole 5 Mg Tab) 10 mg PO BEDTIME [facility] Last Admin: 10/31/22 20:57 Dose: 10 mg Aspirin (Aspirin 81 Mg Chewable Tablet) 81 mg PO DAILY [facility] Last Admin: 10/31/22 07:57 Dose: 81 mg Atorvastatin Calcium (Atorvastatin 40 Mg Tab) 40 mg PO BEDTIME [facility] Last Admin: 10/31/22 20:58 Dose: 40 mg Buspirone HCl (Buspirone Hcl 15 Mg Tablet) 15 mg PO TID [facility] Last Admin: 10/31/22 20:57 Dose: 15 mg Duloxetine HCl (Duloxetine 30 Mg Cap) 120 mg PO BEDTIME [facility] Last Admin: 10/31/22 20:57 Dose: 120 mg Gabapentin (Gabapentin 100 Mg Cap) 100 mg PO TID [facility] Last Admin: 10/31/22 20:57 Dose: 100 mg Meropenem 1,000 mg/ Sodium (Chloride) 100 mls @ 200 mls/hr IV Q8H [facility] Last Admin: 11/01/22 05:34 Dose: 100 mls Lorazepam (Lorazepam 0.5 Mg Tablet) 0.5 mg PO BID PRN PRN Reason: ANXIETY Metoprolol Tartrate (Metoprolol Tar 25 Mg Tab) 25 mg PO BID 6AM 6PM [facility] Last Admin: 11/01/22 05:49 Dose: 25 mg Ondansetron HCl (Ondansetron 4 Mg/2 Ml Vial) 4 mg IV Q6HP PRN PRN Reason: NAUSEA / VOMITING Last Admin: 10/26/22 13:54 Dose: 4 mg Pantoprazole Sodium (Pantoprazole 40mg Tablet) 40 mg PO DAILY [facility]; Protocol Last Admin: 10/31/22 07:56 Dose: 40 mg Sodium Chloride (Flush Normal Saline 10 Ml) 10 ml IV BID [facility] Last Admin: 10/31/22 20:58 Dose: 10 ml Microbiology Data (last 24 hrs): Microbiology 10/22/22 09:50 Blood - Blood Aerobic Blood Culture - Final No growth in 5 days. 10/22/22 09:50 Blood - Blood Anaerobic Blood Culture - Final No growth in 5 days. 10/22/22 09:50 Blood - Blood Aerobic Blood Culture - Final No growth in 5 days. 10/22/22 09:50 Blood - Blood Anaerobic Blood Culture - Final No growth in 5 days. Assessment And Plan - Current Problems (Diagnosis) (1) UTI (urinary tract infection) Onset Date: 12/22/16 Current Visit: No Status: Acute Plan: Culture: 10/29 UC: Gram Neg Sukumar 10/24 UC: E. Coli (MDR) and Proteus mirabilis ESBL 10/22 BC x2: Negative Antibiotics: Current on IV Meropenem, 10/29 to Recommendation: Continue IV Meropenem for total of total of [address] and plan to d/c back to [facility] - Plan - UTI: Continue IV antibiotics for total of 7 days, and PICC in place and plan to d/c back to [facility] today - Right lower lobe pneumonia - Sepsis due to pulmonary infection - Atrial fibrillation with RVR on chronic anticoagulation - Hypertension - COPD - Hyperlipidemia - Acute on chronic diastolic congestive heart failure - Depression with anxiety - Morbid obesity - Obstructive sleep apnea - Lymphedema - Bed-bound post bilateral knee replacements - CVA with left side weakness - Right knee replacement - Left knee replacement ID will continue monitor the patient for signs of infection with fever and WBC trends Case has been discussed with Dr. Dasilva N Physician Review: Patient Assessed, Agree with Above Assessment and Plan
[2022-11-01] MEDS: BUSPIRONE HCL 15 MG TABLET PO SCH (09:11)
[2022-11-01] MEDS: PANTOPRAZOLE 40MG TABLET PO SCH (09:12)
[2022-11-01] MEDS: APIXABAN 5 MG TABLET PO SCH (09:12)
[2022-11-01] MEDS: GABAPENTIN 100 MG CAP PO SCH (09:12)
[2022-11-01] MEDS: AMIODARONE HCL 200 MG TAB PO SCH (09:12)
[2022-11-01] MEDS: ASPIRIN 81 MG CHEWABLE TABLET PO SCH (09:12)
[2022-11-01] MEDS: HYDROCODONE/APAP 5/325 MG TAB PO PRN (09:16)
[2022-11-01 09:30] VITALS: O2SAT 100
== END 2022-11-01 13:10 | DRG 871 ==
LOC: ER 09:41 → ERHOLD 13:00 → 4TH 14:39
PROVIDERS: ADMIT Internal Medicine; ATTEND Internal Medicine
PROC: 5A09557 Assistance with Respiratory Ventilation, Greater than 96 Consecutive Hours, Continuous Positive Airway Pressure (ICD-10-PCS; principal; 2022-10-27)
PROC: 02HV33Z Insertion of Infusion Device into Superior Vena Cava, Percutaneous Approach (ICD-10-PCS; 2022-10-31)
DX: A41.51 Sepsis due to Escherichia coli [E. coli] (principal); I50.33 Acute on chronic diastolic (congestive) heart failure; J96.01 Acute respiratory failure with hypoxia; J69.0 Pneumonitis due to inhalation of food and vomit; Z68.44 Body mass index [BMI] 60.0-69.9, adult; I69.354 Hemiplegia and hemiparesis following cerebral infarction affecting left non-dominant side; Z16.12 Extended spectrum beta lactamase (ESBL) resistance; N39.0 Urinary tract infection, site not specified; R65.20 Severe sepsis without septic shock; I11.0 Hypertensive heart disease with heart failure; I48.0 Paroxysmal atrial fibrillation; E66.01 Morbid (severe) obesity due to excess calories; E78.5 Hyperlipidemia, unspecified; K21.9 Gastro-esophageal reflux disease without esophagitis; F41.8 Other specified anxiety disorders; I89.0 Lymphedema, not elsewhere classified; G47.33 Obstructive sleep apnea (adult) (pediatric); E16.2 Hypoglycemia, unspecified; F31.9 Bipolar disorder, unspecified; J44.9 Chronic obstructive pulmonary disease, unspecified; B96.4 Proteus (mirabilis) (morganii) as the cause of diseases classified elsewhere; Z88.0 Allergy status to penicillin; Z88.8 Allergy status to other drugs, medicaments and biological substances; Z88.5 Allergy status to narcotic agent; Z88.6 Allergy status to analgesic agent; Z90.49 Acquired absence of other specified parts of digestive tract; Z74.01 Bed confinement status; Z79.82 Long term (current) use of aspirin; Z79.01 Long term (current) use of anticoagulants; Z91.041 Radiographic dye allergy status; Z91.048 Other nonmedicinal substance allergy status; Z91.040 Latex allergy status; Z96.653 Presence of artificial knee joint, bilateral; Z90.710 Acquired absence of both cervix and uterus; Z79.899 Other long term (current) drug therapy; Z20.822 Contact with and (suspected) exposure to COVID-19
CPT/HCPCS: 0240U; 36415; 36569; 71045; 80048; 80053; 80061; 80307; 81001; 82140; 82533; 82607; 82805; 82947; 83605; 83735; 83880; 84100; 84145; 84484; 85025; 85610; 85730; 87040; 87077; 87086; 87088; 87186; 93005; 94640; 94660; 94760; 96365; 96367; 99285; J0282; J1644; J1940; J2185; J2405; J2920; J3475; J7030; J7040; J7060; J7613; P9047; U0003

== ENCOUNTER 2023-01-16 14:02 | Inpatient (IN) | payer OTHER ==
--- OUTSIDE RECORDS SUMMARY | 2023-01-16 14:20 | XMS REPORT | Continuity of Care Document ---
:1945 Author Organization [facility] t Address [address] [place] [address] [address] [place] [address] Care Team Providers Name Role Phone Pcp, Patient Does Not Have A Primary Care Physician [id number] Doctor Unassigned, [place] Attending Clinician Unavailable Arnulfo Roper RN Attending [...] y of on with on with 00:00: [place] RVR RVR 00 Medical Branch Anemia Anemia Disease Active Univers associated associated 2-06 it y of with with 00:00: [place] nutritiona nutritiona 00 Me dical l l Branch deficiency deficiency Elevated Elevated Disease Active Unive rs brain brain 2-06 ity of natriureti natriureti [place] c peptide c peptide 00 Medi mike (BNP) (BNP) Branch level level Complicate Complicate Disease Active U nivers d UTI d UTI 2-05 ity of (urinary (urinary 00:00: [place] tract tract 00 Medical infection) infection) Br anch Proteus Proteus Problem Active 2017-102019-04-16 M emoria (organism) (organism) 11-23 13:40:38 l Active 00:00: [place] 09/22/2018 00 Problem 04/16/2019 Urine (ESBL), 09/22/2018
Probl em added by Discern Expert. [facility] [place] [facility] LT FEMUR LT FEMUR Diagnosis Active 2017-102018-12-25 Memoria FX,ATRIAL FX,ATRIAL 11-22 16:32:00 l FIB FIB 00:00: [place] W/RVR,S/P W/RVR,S/P 00 FALL FALL Active 09/21/2018 [facility] [place] [facility] LEFT LEFT Diagnosis Active 2017-102018-09-22 Mem oria DISTAL DISTAL 11-22 01:56:00 l FEMUR FEMUR 00:00: [place] FX--S/P FX--S/P 00 FALL FALL Active 09/21/2018 [facility] [place] [facility] Vitamin D Vitamin D Disease Active [facility] deficiency deficiency 4-03 Radha kes 00:00: Medical 00 Center Leucocytos Leucocytos Disease Active [facility] [place] Morbid Morbid Disease Recurre [facility] obesity obesity nce 3-30 [facility] Hypercalce Hypercalce Disease Active [facility] kiki kiki 3-30 [facility] 00 Center Atrial Atrial Disease Recurre [facility] fibrillati fibrillati nce 3 Radha kes on on 00:00: Medical 00 [place] Congestive Congestive Disease Recurre [facility] heart heart nce 3- [facility] failure failure 00:00: Medical (CHF) (CHF) 00 Center Hyponatrem Hyponatrem Disease Active [facility] ia ia 12-26 [facility] 00 [place] Acute Acute Disease Active [facility] right MCA right MCA 12-25 [facility] stroke stroke 00:00: Medical 00 [place] Total knee Total knee Disease Active U nivers replacemen replacemen 9- it y of t status t status 00:00: [place] [id number] Medical Branch Hemiplegia Hemiplegi Problem 2019-04-16 Memoria and a and 13:40:38 l hemiparesi hemiparesi He rmann s s following following cerebral cerebral infarction infarction affecting affecting left left non-domina non-domina nt side nt side 04/16/2019 [facility] [place] [facility] Chronic Chronic Problem 2019-04-16 Me moria diastolic diastolic 13:40:38 l (congestiv (congestiv He rmann e) heart e) heart failure failure 04/16/2019 [facility] [place] [facility] Body mass Body mass Problem 2019-04-16 Memoria index index 13:40:38 l (BMI) (BMI) [place] 45.0-49.9, 45.0-49.9, adult adult 04/16/2019 [facility] [place] [facility] Morbid Morbid Problem 2019-04-16 Kaushal munira (severe) (severe) 13:40:38 l obesity obesity 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 04/16/2019 [facility] [place] [facility] Acute Acute Problem 2019-04-16 Memor ia posthemorr posthemorr 13:40:38 l hagic hagic [place] anemia anemia 04/16/2019 [facility] [place] [facility] Urinary Urinary Problem 2019-04-16 Me moria tract tract 13:40:38 l infection, infection, He rmann site not site not specified specified 04/16/2019 [facility] [place] [facility] Fall on Fall on Problem 2019-04-16 Me moria same level same level 13:40:38 l from from [place] slipping, slipping, tripping tripping and and stumbling stumbling without without subsequent subsequent striking striking against against object, object, initial initial encounter encounter 04/16/2019 [facility] [place] [facility] Chronic Chronic Problem 2019-04-16 [place] atrial atrial 13:40:38 l fibrillati fibrillati He rmann on on 04/16/2019 [facility] [place] [facility] Dependence Dependenc Problem 2019-04-16 Memoria on e on 13:40:38 l wheelchair wheelchair He rmann 04/16/2019 [facility] [place] [facility] Chronic Chronic Problem 2019-04-16 [place] morimohamud obstructiv obstructiv 13:40:38 l e e Leo pulmonary pulmonary disease, disease, unspecifie unspecifie d d 04/16/2019 [facility] [place] [facility] Hypertensi Hypertens Problem 2019-04-16 Memoria ve heart rola heart 13:40:38 l disease disease Leo with heart with heart failure failure 04/16/2019 [facility] [place] [facility] Obstructiv Obstructi Problem 2019-04-16 Memoria e sleep ve sleep 13:40:38 l apnea apnea Leo (adult) (adult) (pediatric (pediatric ) ) 04/16/2019 [facility] [place] [facility] Hyperlipid Hyperlipi Problem 2019-04-16 Memoria logan sarkar, 13:40:38 l unspecifie unspecifie He rmann d d 04/16/2019 [facility] [place] [facility] Anxiety Anxiety Problem 2019-04-16 [place] disorder, disorder, 13:40:38 l unspecifie unspecifie He rmann d d 04/16/2019 [facility] [place] [facility] Gastro-eso Gastro-es Problem 2019-04-16 Memoria phageal ophageal 13:40:38 l reflux reflux Leo disease disease without without esophagiti esophagiti s s 04/16/2019 [facility] [place] [facility] Vitamin Vitamin Problem 2019-04-16 [place] B12 B12 13:40:38 l deficiency deficiency He rmann anemia, anemia, unspecifie unspecifie d d 04/16/2019 [facility] [place] [facility] Hyperkalem Hyperkale Problem 2019-04-16 Memoria ia kiki 13:40:38 l 04/16/2019 [place] n [facility] [place] [facility] Thrombocyt Thrombocy Problem 2019-04-16 Memoria belén lees, 13:40:38 l unspecifie unspecifie He rmann d d 04/16/2019 [facility] [place] [facility] Proteus Proteus Problem 2019-04-16 Me moria (mirabilis (mirabilis 13:40:38 l ) ) [place] (morganii) (morganii) as the as the cause of cause of diseases diseases classified classified elsewhere elsewhere 04/16/2019 [facility] [place] [facility] Personal Personal Problem 2019-04-16 Memoria history of history of 13:40:38 l nicotine nicotine [place] montes dependence dependence 9 [facility] [place] [facility] Dehydratio Dehydrati Problem 2019-04-16 Memoria n on 13:40:38 l 04/16/2019 [place] n [facility] [place] [facility] Age-relate Problem 2019-04-16 M emoria d Age-relate 13:40:38 l osteoporos d [place] n is without osteoporos current is without pathologic current al pathologic fracture al fracture 04/16/2019 [facility] [place] [facility] Hypotensio Hypotensi Problem 2019-04-16 Memoria n, on, 13:40:38 l unspecifie unspecifie He rmann d d 04/16/2019 [facility] [place] [facility] Essential Essential Problem Resolve 2019-04-16 Memoria hypertensi hypertensi d 13:40:38 l on on [place] (disorder) (disorder) Resolved Problem 04/16/2019 [facility] [place] [facility] Syncope Syncope Problem Resolve 2019-04-16 M emoria and and d 13:40:38 l collapse collapse [place] n (disorder) (disorder) Resolved Problem 04/16/2019 [facility] [place] [facility] Anxiety Anxiety Problem Active 2019-04-16 [place] disorder disorder 13:40:38 l (disorder) (disorder) He rmann Active Problem 04/16/2019 [facility] [place] [facility] Chronic Chronic Problem Active 2019-04-16 [place] atrial atrial 13:40:38 l fibrillati fibrillati He rmann on on (disorder) (disorder) Active Problem 04/16/2019 [facility] [place] [facility] Chronic Chronic Problem Active 2019-04-16 Me moria diastolic diastolic 13:40:38 l heart heart Leo failure failure (disorder) (disorder) Active Problem 04/16/2019 [facility] [place] [facility] Chronic Chronic Problem Active 2019-04-16 [place] obstructiv obstructiv 13:40:38 l e lung e lung Leo disease disease (disorder) (disorder) Active Problem 04/16/2019 [facility] [place] [facility] Extreme Extreme Problem Active 2019-04-16 [place] obesity obesity 13:40:38 l with with [place] alveolar alveolar hypoventil hypoventil ation ation (disorder) (disorder) Active Problem 04/16/2019 [facility] [place] [facility] Gastroesop Gastroeso Problem Active 2019-04-16 Memoria hageal phageal 13:40:38 l reflux reflux [place] disease disease (disorder) (disorder) Active Problem 04/16/2019 [facility] [place] [facility] History of History Problem Active 2019-04-16 Memoria - CVA of - CVA 13:40:38 l (context-d (context-d He rmann ependent ependent category) category) Active Problem 04/16/2019 [facility] [place] [facility] Hyperlipid Hyperlipi Problem Active 2019-04-16 Memoria emia demia 13:40:38 l (disorder) (disorder) He rmann Active Problem 04/16/2019 [facility] [place] [facility] Hypertensi Hypertens Problem Active 2019-04-16 Memoria ve rola 13:40:38 l disorder, disorder, Herm valentin systemic systemic arterial arterial (disorder) (disorder) Active Problem 04/16/2019 [facility] [place] [facility] Obstructiv Obstructi Problem Active 2019-04-16 Memoria e sleep ve sleep 13:40:38 l apnea apnea Leo syndrome syndrome (disorder) (disorder) Active Problem 04/16/2019 [facility] [place] [facility] PERIPROSTH PERIPROST Diagnosis Active 2018-12-25 Memoria FRACTURE H FRACTURE 16:32:00 l AROUND AROUND [place] OTHER OTHER INTERNA INTERNA Active [facility] [place] [facility] UNSPECIFIE UNSPECIFI Diagnosis Active 2018-12-25 Memoria D ATRIAL ED ATRIAL 16:32:00 l FIBRILLATI FIBRILLATI He rmann ON ON Active [facility] [place] [facility] Periprosth Periprost Problem 2019-04-16 Memoria etic hetic 13:40:38 l fracture fracture Sterling n around around internal 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, joint, initial initial encounter encounter 04/16/2019 [facility] [place] [facility] Gaby-prost Gaby-prost Problem Active U T hetic hetic [facility] femoral femoral ans shaft shaft fracture fracture History of Past Illness Condition Condition Condition [...] encounter fracture for closed fracture 10/09/2018 04/16/2019 [facility] [place] [facility] Allergies, Adverse Reactions, Alerts Allergy Allergy Status Severity Reaction(s) Onset Inactive Treating Comm ents Source Name Type Date Date Clinician Pregabal Propensi Active [facility] adverse 00:00: Medical reaction 00 [place] Haloperi Propensi Active Anxiety 2017 [facility]27 [facility] Lactate adverse 00:00: Medical reaction 00 [place] Iodine Propensi Active Itching, [address] [facility] ty to Swelling 3-27 ONLY [facility] adverse 00:00: Medical reaction 00 [place] Aspirin Propensi Active [address] [facility] (Tartraz ty to 3-26 [facility] ine adverse 00:00: Medical Only) reaction 00 [place] Haloperi Drug Active Anxiety [facility] dol Allergy 3-26 [facility] 00:[facility]: Medical 00 [place] Iodine Propensi Active Hives, Rash [address] [facility] [facility] And ty to 3-26 [facility] Iodide adverse 00:00: Medical Containi reaction 00 [facility] s Products Latex Propensi Active Hives, [address] [facility] [facility] ty to Itching, 3-26 [facility] adverse Rash 00:00: Medical reaction 00 [place] Morphine Propensi Active Hives, [address] ty to Anxiety, 3-26 blood [facility] adverse Other (See 00:00: pressure Med ical reaction Comments) 00 Cente r s Penicill Drug Active Hives, Rash, [address] ins Allergy Swelling 3-26 [facility] 00:00: Medical 00 [place] Penicill Drug Active Hives, Rash, [address] ins Allergy Swelling 3-26 [facility] 00:[facility]: Medical 00 [place] Pregabal Propensi Active Hallucinatio 2015-10 Univers in ty to ns 2-28 ity of adverse 00:00: [place] reaction 00 Medical s Branch PREGABAL DRUG Active Hallucinates 2015-10 Un monalisa IN INGREDI 2-28 ity of 00:00: [place] 00 Medical Branch Haloperi Propensi Active Anxiety 2014- Unive rs dol ty to 9-10 ity of Lactate adverse 00:00: [place] reaction 00 Medical s to Branch drug Iodine Propensi Active Swelling 0 IV IODINE Uni vers ty to 9-10 ONLY ity of adverse 00:00: [place] reaction 00 Medical s to Branch drug Latex Propensi Active Rash 2014-0 Univers ty to 9-10 ity of adverse 00:00: [place] reaction 00 Medical s to Branch drug Morphine Propensi Active Other - See 0 High U nivers ty to comments 9-10 blood ity of adverse 00:00: pressure [place] reaction 00 Medical s to Branch drug Penicill Propensi Active Swelling 2014-0 Univ ers ins ty to 9-10 ity of adverse 00:00: [place] reaction 00 Medical s to Branch drug Penicill Propensi Active Swelling 0 Univ ers ins ty to 9-10 ity of adverse 00:00: [place] reaction 00 Medical s to Branch drug HALOPERI DRUG Active Med Anxiety 2014-0 Univers DOL INGREDI 9-10 ity of LACTATE 00:00: [place] 00 Medical Branch IODINE DRUG Active Med ITCHING 2015-0 Univers INGREDI 9-10 ity of 00:00: [place] 00 Medical Branch LATEX DRUG Active Med ITCHING 2015-0 Univers INGREDI 9-10 ity of 00:00: [place] 00 Medical Branch MORPHINE DRUG Active Med Anxiety 2015-0 Univers INGREDI 9-10 ity of 00:00: [place] 00 Medical Branch PENICILL Drug Active Med Rash 2015-0 Univers INS Class 9-10 ity of 00:00: [place] 00 Medical Branch penicill penicill Active Memori a ins ins l [place] morphine morphine Active Memori a l Leo Haldol Haldol Active Memoria l [place] iodine iodine Active Memoria l Leo Latex Latex Active Memoria l [place] Social History Social Habit Start Date Stop Date Quantity Comments Source Exposure to Not sure University of SARS-CoV-2 [facility] (event) [place] Alcohol intake 2016-12-30 2016-12-30 Current MONICA Meza es 00:00:00 00:00:00 non-drinker of Medical Ce nter alcohol (finding) Tobacco use and 2015-06-11 2015-06-11 Smokeless tobacco Un iversity of exposure 00:00:00 00:00:00 non-user [facility] Social History 2013-10-18 2013-10-18 [facility] lorenzo 13:16:47 13:16:47 [birth year] MONICA Blakelykelly 00:00:00 00:00:00 [facility] Smoking Status Start Date Stop Date Source Never smoker [facility] Medications Ordered Filled Start Stop Current Ordering Indication Dosage Frequency Signature Comments Components Source Medication Medication Date Date Medication? Clinician (SIG) Name Name MONSTER 2021- No 40meq 40 mEq, Univers (KLOR-CON 2-10 [...] by ity of tablet 00:00: mouth at [place] 00 bedtime. Medical Branch docusate 0 Yes [...] by ity o f 00:00: mouth at [place] 00 bedtime. Medical Branch metoprolol Yes 50mg [...] Medical times Branch daily. ferrous 2021-0 Yes [id number] 325mg Take 1 Uni vers sulfate 2-10 [...] 00 (three) Medical times Branch daily. hydrocortis 0 Yes Apply to Un monalisa one 2.5 [...] 00:00: mouth 00 daily. Medical Branch sennosides 2021-0 Yes 8.6mg Take 1 Univ ers 8.6 mg 2-10 tablet by ity of tablet 00:00: mouth 2 (two) Medical times Branch daily. ferrous 2021-0 Yes [id number] 325mg Take 1 Uni vers sulfate 2-10 [...] mouth at 00 bedtime. Medical Branch docusate 2021-0 Yes [...] Medical times Branch daily. ferrous 2021-0 Yes [id number] 325mg Take 1 Uni vers sulfate 2-10 [...] (two) Medical times Branch daily. ferrous Yes [id number] 325mg Take 1 Uni vers sulfate 2-10 tablet by ity of (IRON) 325 00:00: mouth [place] mg (65 mg 00 daily. Medical iron) Branch tablet furosemide 2021- No [id number] 20mg Take 1 Univers 20 mg 2-10 03-13 tablet by ity of tablet 00:00: 05:59 mouth [place] 00 :00 daily for Medical 30 days. Branch furosemide 2021- No [id number] 20mg Take 1 Univers 20 mg 2-10 03-13 tablet by ity of tablet 00:00: 05:59 mouth [place] 00 :00 daily for Medical 30 days. Branch furosemide 2021- No [id number] 20mg Take 1 Univers 20 mg -07 04-13 tablet by ity of tablet 00:00: 05:59 mouth [place] 00 :00 daily for Medical 30 days. Branch albuterol 2021- No [id number] 2{puff} Inhale 2 Univers 90 2-10 02-26 Puffs ity of mcg/actuati 00:00: 05:59 every 6 [place] on inhaler 00 :00 (six) Medical hours as Branch needed for Wheezing or Shortness of Breath for up to 15 days. albuterol 2021- No [id number] 2{puff} Inhale 2 Univers 90 2-10 02-26 Puffs ity of mcg/actuati 00:00: 05:59 every 6 [place] on inhaler 00 :00 (six) Medical hours as Branch needed for Wheezing or Shortness of Breath for up to 15 days. albuterol 2021- No [id number] 2{puff} Inhale 2 Univers 90 2-10 02-26 Puffs ity of mcg/actuati 00:00: 05:59 every 6 [place] on inhaler 00 :00 (six) Medical hours as Branch needed for Wheezing or Shortness of Breath for up to 15 days. magnesium 2021- No [id number] 400mg Take 400 Univers oxide 420 2-10 02-16 mg by ity of mg Tab 00:00: 05:59 mouth [place] 00 :00 daily for Medical 5 days. Branch magnesium 2021- No [id number] 400mg Take 400 Univers oxide 420 2-10 02-16 mg by ity of mg Tab 00:00: 05:59 mouth [place] 00 :00 daily for Medical 5 days. Branch nitrofurant 2021- No [id number] 100mg Take 1 Univers oin 100 mg 11-11- capsule by it y of capsule 00:00: 05:59 mouth 4 [place] 00 :00 (four) Medical times Branch daily for 2 days. nitrofurant 2021- No [id number] 100mg Take 1 Univers oin 100 mg 2-07 03-13 capsule by it y of capsule 00:00: 05:59 mouth 4 [place] 00 :00 (four) Medical times Branch daily for 2 days. LORazepam 2022-0 Yes .25mg 0.25 mg, Uni vers (ATIVAN) 2-09 Oral, ity of tablet 0.25 19:28: BIDPRN, Scar as mg 18 Starting Medical on Mon [place] 11/10/21 at 1328, Until Discontinu ed, Routine, Anxiety, Agitation omeprazole 2021-0 Yes 20mg 20 mg, Unive rs (PRILOSEC) 2-09 Oral, ity of capsule 20 15:00: DAILY, [place] mg 00 First dose Medical on Mon11/10/21 at 0900, Until Discontinu ed, Routine melatonin 2021-0 Yes 3mg 3 mg, Univers (MELATIN) 2-09 Oral, QHS, ity of tablet 3 mg 03:00: First dose [place] 00 on [facility] 11/09/21 at [place] 2100, Until Discontinu ed, Routine metoprolol 2021-0 Yes 50mg 50 mg, Unive rs succinate 2- Oral, BID, ity of XL (TOPROL 02:00: First dose [place] XL) tablet 00 on [facility] 50 mg 11/09/21 at Branch 2000, Until Discontinu ed, Routine hydrocortis 2021-0 Yes Topical Uni vers one 2.5 % 11-10 (Apply To ity o f cream 02:00: Affected [place] 00 Areas), Medical BID, First Branch dose on [facility] 11/09/21 at 2000, Until Discontinu ed, Routine nystatin 2021-0 Yes Topical, Unive rs (NYSTOP) 2- BID, First ity o f powder 02:00: dose on [place] 00 [facility] 11/09/21 Medical at 2000, Branch Until Discontinu ed, Routine QUEtiapine 2021-0 2021- No 50mg 50 mg, Univ ers (SEROQUEL) 2- 02-09 Oral, BID, it y of tablet 50 02:00: 14:40 First dose [place] mg 00 :45 on [facility] 11/09/21 at [place] 2000, Until Discontinu ed, Routine montelukast 2021-0 Yes 10mg 10 mg, Univ ers (SINGULAIR) 2-08 Oral, QPM, it y of tablet 10 23:00: First dose [place] mg 00 on [facility] 11/09/21 at [place] 1700, Until Discontinu ed, Routine nitrofurant 2021-0 2022- No 100mg 100 mg, U nivers oin 2-08 02-13 Oral, QID, ity of (MACRODANTI 21:45: 17:59 20 doses, [place] N) capsule 00 :00 First dose Med ical 100 mg on [facility] 11/09/21 at 1545, Last dose on 11/14/21 at 0800, Routine
Reason for Anti-Infec tive: Empiric Therapy for Suspected Infection< br>Empiric Therapy Site: Urine
D uration of therapy: 7 days magnesium 2022-0 Yes 400mg 400 mg, Univ ers oxide 2-08 Oral, BID, ity of (MAG-OX 21:15: First dose [place] 400) tablet 00 on [facility] l 400 mg 11/09/21 at Branch 1515, Until Discontinu ed, Routine DULoxetine 2021-0 Yes 60mg 60 mg, Unive rs (CYMBALTA) 2-08 Oral, ity of capsule 60 21:15: DAILY, [place] mg 00 First dose Medical on [facility] 11/09/21 at 1515, Until Discontinu ed, Routine [...] s mg 00 First dose Medical on [facility] 11/09/21 at 1515, Until Discontinu ed, Routine [...] 20 mg 00 First dose Medical on [facility] 11/09/21 at 1515, Until Discontinu ed, MARIA ELENA LORazepam 2021- No .25mg 0.25 mg, Un monalisa (ATIVAN) 11-09 Oral, TID, ity of tablet 0.25 21:00: 14:40 First dose [place] mg 00 :39 on [facility] 11/09/21 at Branch 1500, Until Discontinu ed, Routine DULoxetine 2021- No 60mg Take 60 mg Univers (CYMBALTA) 11-09 by mouth 2 it y of 60 mg 15:08: 00:00 (two) [place] capsule 27 :00 times Medical daily. Branch montelukast 2021- No 10mg Take 10 mg Univers 10 mg 11-09 by mouth. ity of tablet 15:08: 00:00 [place] 27 :00 Medical Branch clotrimazol 2021- No Apply to U nivers e 1 % 11-09 area(s) at ity of topical 15:08: 00:00 bedtime. [place] cream 27 :00 Medical Branch QUEtiapine 2021- No 50mg Take 50 mg Univers (SEROQUEL) 11-09 by mouth 2 it y of 50 mg 15:08: 00:00 (two) [place] tablet 27 :00 times Medical daily. Branch [...] 2021- No 2{puff} Inhale 2 Univers (VENTOLIN 11-09- Puffs ity of HFA) 90 15:08: 00:00 every 6 [place] mcg/actuati 27 :00 (six) Medical on inhaler hours as Branc h needed for Wheezing or Shortness of Breath. magnesium 2021- No Take by [facility] ers hydroxide 11-09- mouth. ity of (MILK OF 15:08: 00:00 [place] MAGNESIA 27 :00 Medical ORAL) Branch cranberry 2021- No Take by [facility] ers fruit 11-09-08 mouth. ity of (CRANBERRY) [...] ity of suppository 15:08: 00:00 rectum at [place] 27 :00 bedtime as Medical needed. Branch vitamin 2021- No 500ug Take 500 Univ ers B-12 11-09 mcg by ity of (VITAMIN 15:08: 00:00 mouth [place] B-12) 500 27 :00 daily. Medical mcg tablet Branch atorvastati 2021- No 80mg Take 80 mg Univers n 80 mg 11-09 by mouth ity of tablet 15:08: 00:00 at [place] 27 :00 bedtime. Medical Branch Lactobacill 2021- No Take by Un monalisa us 11-0908 mouth. ity of acidophilus 15:08: 00:00 [place] (ACIDOPHILU 27 :00 Medical S ORAL) Branch ondansetron 2021- No 4mg Take 4 mg Univers 4 mg tablet 11-09 by mouth ity of 15:08: 00:00 every 8 [place] 27 :00 (eight) Medical hours as Branch needed. clopidogreL 2021- No 75mg Take 75 mg Univers 75 mg 11-09 by mouth ity of tablet 15:08: 00:00 daily. [place] 27 :00 Medical Branch omeprazole 2021- No 20mg Take 20 mg Univers 20 mg 11-09 by mouth ity of capsule 15:08: 00:00 daily. [place] 27 :00 Medical Branch melatonin 3 2021- No 3mg Take 3 mg Univers mg tablet 11-09 by mouth ity o f 15:08: 00:00 at [place] 27 :00 bedtime. Medical Branch losartan 2021- No 50mg Take 50 mg Un monalisa (COZAAR) 50 11-09- by mouth ity of mg tablet 15:08: 00:00 daily. [place] 22 :00 Medical Branch carvedilol 2021- No 6.25mg Take 6.25 Univers (COREG) 11-09-05 mg by ity of 6.25 mg 15:08: 00:00 mouth 2 [place] tablet 22 :00 (two) Medical times Branch daily. oxazepam 2021- No 30mg Take 30 mg Un monalisa (SERAX) 30 11-09 by mouth 4 it y of mg capsule 15:08: 00:00 (four) [place] 22 :00 times Medical daily. [place] furosemide 80mg Take 80 mg Univers (LASIX) 80 11-09 by mouth ity of mg tablet 15:08: 00:00 daily. [place] 22 :00 [facility] diclofenac 2021- No 75mg Take 75 mg Univers (VOLTAREN) 11-09 by mouth ity of 75 mg EC 15:08: 00:00 daily. [place] tablet 22 :00 [facility] atorvastati Yes 40mg 40 mg, Univ ers n (LIPITOR) 08 Oral, QHS, it y of tablet 40 03:00: First dose [place] mg 00 on [facility] 11/08/21 at Branch 2100, Until Discontinu ed, Routine vancomycin 15mg/kg 1,500 mg Univers 1500 mg in 11-08 (rounded ity of NS 500 mL 18:15: 21:32 from [place] IV 00 :52 2,131.5 mg Medical Piggyback = 15 mg/kg Bran ch RTU 1,500 ?142.1 mg kg), IV Piggyback, Q12H ABX, First dose on [facility] 11/08/21 at 1215, Until Discontinu ed, Administer over 90 Minutes
Reason for Anti-Infec tive: Documented Infection< br>Documen janine Infection Site: Urine
D uration of Therapy: 7 days potassium, 2021- No 2{packe 2 Packet, Univers sodium 11-08 t} Oral, ity of phosphates 15:15: 16:00 ONCE, 1 Scar as (PHOS-NAK) 00 :00 dose, On Medic al [phone] [facility] 11/08/21 Br anch mg packet 2 at 0915, Packet Routine apixaban Yes 5mg 5 mg, Univers (ELIQUIS) 11-08 Oral, BID, ity of tablet 5 mg 02:00: First dose [place] 00 on [facility] 11/07/21 at Branch 2000, Until Discontinu ed, Routine
Indicatio ns: Non-Valvul ar Atrial Fibrillati on phosphorus No 250mg 1 tablet U nivers (K [...] infusion 2 at 1330, g Routine iron 300mg 300 mg, IV Unive rs sucrose [...] C) 00 ascorbic Medi mike tablet acid [place] 1,000 mg (vitamin C) (VITAMIN C) tablet [...] No 25mg 25 mg, Univ ers tartrate 11-07 02-08 Oral, Q8H, ity of (LOPRESSOR) 18:30: 20:58 First dose [place] tablet 25 00 :06 on [facility] mg 11/07/21 at [facility] 1230, Until Discontinu ed, Routine sulfur 2021- No [id number] 5mL 5 mL, Unive rs hexafluorid 11-07 Intravenou i ty of e microsphr 15:30: 15:30 s, ONCE, 1 [place] (LUMASON) 00 :00 dose, On Medica l injection 5 11/07/21 Br anch mL at 0930, Routine
bioinformatics team member approving Restricted medication : KRYSTYNA JAEGER aspirin Yes 81mg 81 mg, Univers chewable 11-07 Oral, ity of tablet 81 15:00: DAILY, [place] mg 00 First dose Medical on [facility] 11/07/21 at 0900, Until Discontinu ed, Routine enoxaparin 2021- No 1mg/kg 129 mg Un monalisa (LOVENOX) 11-07 (rounded ity o f injection 15:00: 18:25 [...] No 20mg 20 mg, Unive rs (CARDIZEM 2- 02-06 Slow IV ity of IV) 03:30: 02:48 Push, [place] injection 00 :00 ONCE, 1 Medical 20 mg dose, On [facility] 11/06/21 at 2130, Routine
bioinformatics team member approving Restricted medication : KRYSTYNA JAEGER diltiazem 2021- No 2.5mg/h 2.5-15 Un monalisa (CARDIZEM 2 02-08 mg/hr ity of IV) 125 mg [...] ity of 1,000 mg [facility]:00: [facility] [place] NaCl 0.9% 00 :04 Q24H ABX, Medic al (NS) 50 mL First dose [facility] MINI-BAG on 11/06/21 at 2000, Until Discontinu ed, Administer over 30 Minutes, 50 mL
Reas on for Anti-Infec tive: Empiric Therapy for Suspected Infection< br>Empiric Therapy Site: Urine
D uration of therapy: 72 hours acetaminoph Yes 650mg 650 mg, Un monalisa en 2-06 Oral, ity of (TYLENOL) 00:47: Q6HPRN, Jimmy tablet 650 46 Starting Medic al mg on Sat Branch 11/06/21 at 1847, Until Discontinu ed, Routine, Pain (scale 1-3) NaCl 0.9% No 500mL at 999 Univ ers (NS) [...] l mL 21:23: SUB-Q, [place] subcutaneou 00 [id number], s solution X 21 day, # 11 mL, 0 Refill(s), other tizanidine 2017-10 Yes 2 mg = 1 Mem oria 2 mg oral 2-27 tab, PO, l tablet 21:23: Q6H, PRN [place] 00 Muscle Spasms, 0 Refill(s) tiotropium 2017-10 Yes 18 Memoria 2-27 microgram, l 21:23: INHALATION [place] 00 , RDaily, 0 Refill(s) sennosides, 2017-10 Yes 17.2 mg = M emoria SENIOR CARE 8.6 MG 2-27 2 tab, PO, l Oral Tablet 21:23: Bedtime, 0 [place] 00 Refill(s) pantoprazol 2017-10 Yes 40 mg = 1 M emoria e 40 mg 2-27 tab, PO, l oral 21:23: Before Leo enteric 00 Breakfast, coated 0 tablet Refill(s) Docusate 2017-10 Yes 100 mg = 1 Mem oria Sodium 100 2-27 cap, PO, l MG Oral 21:23: BID, 0 [place] Capsule 00 Refill(s) Aspirin 325 2017-10 Yes 325 mg = 1 Memoria MG Enteric 2-27 tab, PO, l Coated 21:23: Daily, 0 [place] Tablet 00 Refill(s) Albuterol 2017-10 Yes 3 mL, NEB, Me moria 0.833 MG/ML 2-27 PRN, PRN l / 21:23: Respirator [place] Ipratropium 00 y Pathway, [place] 0 0.167 MG/ML Refill(s) Inhalant Solution [DuoNeb] [...] pkt, PO, l 3350 21:23: Daily, 0 [place] 00 Refill(s) multivitami 2017-10 Yes 1 tab, PO, Memoria n 2-27 Daily, 0 l 21:23: Refill(s) [place] 00 metoprolol 2017-10 Yes 12.5 mg = [...] 2-27 0.5 mL, l mL 21:23: SUB-Q, [place] subcutaneou 00 [id number], s solution X 21 day, # 11 mL, 0 Refill(s), other tizanidine 2017-10 Yes 2 mg = 1 Mem oria 2 mg oral 2-27 tab, PO, l tablet 21:23: Q6H, PRN [place] 00 Muscle Spasms, 0 Refill(s) tiotropium 2017-10 Yes 18 Memoria 2-27 microgram, l 21:23: INHALATION [place] 00 , RDaily, 0 Refill(s) sennosides, 2017-10 Yes 17.2 mg = M emoria SENIOR CARE 8.6 MG 2-27 2 tab, PO, l Oral Tablet 21:23: Bedtime, 0 [place] 00 Refill(s) pantoprazol 2017-10 Yes 40 mg = 1 M emoria e 40 mg 2-27 tab, PO, l oral 21:23: Before [place] enteric 00 Breakfast, coated 0 tablet Refill(s) [...] 2-27 PRN, PRN l / 21:23: Respirator [place] Ipratropium 00 y Pathway, [place] 0 0.167 MG/ML Refill(s) Inhalant Solution [DuoNeb] [...] pkt, PO, l 3350 21:23: Daily, 0 [place] 00 Refill(s) multivitami 2017-10 Yes 1 tab, PO, Memoria n 2-27 Daily, 0 l 21:23: Refill(s) [place] 00 metoprolol 2017-10 Yes 12.5 mg = [...] - TOP, l de 0.05 21:23: Daily, Leo MG/MG 00 Remove Transdermal after 12 Patch hours, 0 [Lidoderm] Refill(s) gabapentin 2017-10 Yes 100 mg = 1 M emoria 100 MG Oral 11-28 cap, PO, l Capsule 21:23: Q8Hnow, 0 Mervat nn 00 Refill(s) ertapenem 1 2017-10 No 1 gm, IV, M emoria g injection 11-28 Q24H, X 6 l 21:23: day, # 6 Leo 00 syr, 0 Refill(s), other enoxaparin 2017-10 No 50 mg = Kaushal munira 60 mg/0.6 2-27 0.5 mL, l mL 21:23: SUB-Q, [place] subcutaneou 00 [id number], s solution X 21 day, # 11 mL, 0 Refill(s), other tizanidine 2017-10 Yes 2 mg = 1 Mem oria 2 mg oral 2-27 tab, PO, l tablet 21:23: Q6H, PRN [place] 00 Muscle Spasms, 0 Refill(s) tiotropium 2017-10 Yes 18 Memoria 2-27 microgram, l 21:23: INHALATION [place] 00 , RDaily, 0 Refill(s) gabapentin 2017-10 Yes 100 mg = [...] l mL 21:23: SUB-Q, [place] subcutaneou 00 [id number], s solution X 21 day, # 11 mL, 0 Refill(s), other tizanidine 2017-10 Yes 2 mg = 1 Mem oria 2 mg oral 2-27 tab, PO, l tablet 21:23: Q6H, PRN [place] 00 Muscle Spasms, 0 Refill(s) tiotropium 2017-10 Yes 18 Memoria 2-27 microgram, l 21:23: INHALATION [place] 00 , RDaily, 0 Refill(s) sennosides, 2017-10 Yes 17.2 mg = M emoria SENIOR CARE 8.6 MG 2-27 2 tab, PO, l Oral Tablet 21:23: Bedtime, 0 [place] 00 Refill(s) pantoprazol 2017-10 Yes 40 mg = 1 M emoria e 40 mg 2-27 tab, PO, l oral 21:23: Before [place] enteric 00 Breakfast, coated 0 tablet Refill(s) Docusate 2017-10 Yes 100 mg = 1 Mem oria Sodium 100 2-27 cap, PO, l MG Oral 21:23: BID, 0 [place] Capsule 00 Refill(s) sennosides, 2017-10 Yes 17.2 mg = M emoria SENIOR CARE 8.6 MG 2-27 2 tab, PO, l Oral Tablet 21:23: Bedtime, 0 [place] 00 Refill(s) Aspirin 325 2017-10 Yes 325 mg = 1 Memoria MG Enteric 2-27 tab, PO, l Coated 21:23: Daily, 0 [place] Tablet 00 Refill(s) Albuterol 2017-10 Yes 3 mL, NEB, Me moria 0.833 MG/ML 2- PRN, PRN l / 21:23: Respirator [place] Ipratropium 00 y Pathway, [place] 0 0.167 MG/ML Refill(s) Inhalant Solution [DuoNeb] [...] 2-27 tab, PO, l tablet 21:23: Bedtime, [place] 00 PRN Insomnia, 0 Refill(s) Lidocaine 2017-10 Yes 1 patch, Kaushal munira Hydrochlori 2-27 TOP, l de 0.05 21:23: Daily, [place] MG/MG 00 Remove Transdermal after 12 Patch hours, 0 [Lidoderm] Refill(s) pantoprazol 2017-10 Yes 40 mg = 1 M emoria e 40 mg 2-27 tab, PO, l oral 21:23: Before [place] enteric 00 Breakfast, coated 0 tablet Refill(s) [...] 11-28 PRN, PRN l / 21:23: Respirator [place] Ipratropium 00 y Pathway, [place] 0 0.167 MG/ML Refill(s) Inhalant Solution [DuoNeb] [...] n 2-27 Daily, 0 l 21:23: Refill(s) [place] 00 metoprolol 2017-10 Yes 12.5 mg = Me moria tartrate 25 -27 0.5 tab, l mg oral 21:23: PO, BID, 0 Herm valentin tablet 00 Refill(s) melatonin 3 2017-10 Yes 3 mg = 1 Me moria mg oral -27 tab, PO, l tablet 21:23: Bedtime, [place] 00 PRN Insomnia, 0 Refill(s) Lidocaine 2017-10 Yes 1 patch, Kaushal munira Hydrochlori - TOP, l de 0.05 21:23: Daily, Leo MG/MG 00 Remove Transdermal after 12 Patch hours, 0 [Lidoderm] Refill(s) Lovenox 2017-10 No Notes: Ramesh 11-28 Nurse to l 16:00: ensure [place] 00 documentat ion of patient education per anticoagul ation policy. (Same as: Lovenox) Lovenox 2017-10 No Notes: Memoria 2-27 Nurse to l 16:00: ensure [place] 00 documentat ion of patient education per anticoagul ation policy. (Same as: Lovenox) Lovenox 2017-10 No Notes: Memoria 2-27 Nurse to l 16:00: ensure [place] 00 documentat ion of patient education per anticoagul ation policy. (Same as: Lovenox) Lovenox 2017-10 No Notes: Memoria 2-27 Nurse to l 16:00: ensure [place] 00 documentat ion of patient education per anticoagul ation policy. (Same as: Lovenox) heparin 2017-10 No Notes: Memoria 2-27 porcine l 06:00: heparin [place] 00 heparin 2017-10 No Notes: Memoria 2-27 porcine l 06:00: heparin [place] 00 heparin 2017-10 No Notes: Memoria 2-27 porcine l 06:00: heparin [place] 00 heparin 2017-10 No Notes: Memoria 2-27 porcine l 06:00: heparin [place] 00 remove 2017-10 No Notes: Memoria patch 2-27 Remove l 03:00: patch 12 [place] 00 hours after applicatio n each day. Eliquis 2017-10 No 5 mg, Memoria 2-27 Route: PO, l 03:00: Drug form: [place] 00 TAB, Q12H, Dosing Weight 136, kg, Start date: 09/26/18 21:00:00 PARKS RECREATION DIRECTOR, Duration: 30 day, Stop date: 10/26/18 9:00:00 PARKS RECREATION DIRECTOR remove 2017-10 No Notes: Memoria patch 2-27 Remove l 03:00: patch 12 [place] 00 hours after applicatio n each day. Eliquis 2017-10 No 5 mg, Memoria 2-27 Route: PO, l 03:00: Drug form: [place] 00 TAB, Q12H, Dosing Weight 136, kg, Start date: 09/26/18 21:00:00 PARKS RECREATION DIRECTOR, Duration: 30 day, Stop date: 10/26/18 9:00:00 PARKS RECREATION DIRECTOR remove 2017-10 No Notes: Memoria patch 2-27 Remove l 03:00: patch 12 [place] 00 hours after applicatio n each day. Eliquis 2017-10 No 5 mg, Memoria 2-27 Route: PO, l 03:00: Drug form: [place] 00 TAB, Q12H, Dosing Weight 136, kg, Start date: 09/26/18 21:00:00 PARKS RECREATION DIRECTOR, Duration: 30 day, Stop date: 10/26/18 9:00:00 PARKS RECREATION DIRECTOR remove 2017-10 No Notes: Memoria patch 2-27 Remove l 03:00: patch 12 [place] 00 hours after applicatio n each day. Eliquis 2017-10 No 5 mg, Memoria 2-27 Route: PO, l 03:00: Drug form: [place] 00 TAB, Q12H, Dosing Weight 136, kg, Start date: 09/26/18 21:00:00 PARKS RECREATION DIRECTOR, Duration: 30 day, Stop date: 10/26/18 9:00:00 PARKS RECREATION DIRECTOR Aspirin 2017-10 No Notes: (Do Kaushal munira 2-26 Not Crush) l 21:00: Do not [place] 00 crush or chew. Aspirin 2017-10 No Notes: (Do Kaushal munira 2-26 Not Crush) l 21:00: Do not [place] 00 crush or chew. Aspirin 2017-10 No Notes: (Do Kaushal munira 2-26 Not Crush) l 21:00: Do not [place] 00 crush or chew. Aspirin 2017-10 No [...] a 2-26 (Same as: l 16:00: INVanz) [place] 00 Refrigerat e. NOT COMPATIBLE WITH D5W. Stable in refrigerat or for 24 hours MEDICATION WASTE Product Size: 1000 mg Product Wasted: ___ mg ertapenem 2017- No Notes: Memori a 2-26 (Same as: l 16:00: INVanz) [place] 00 Refrigerat e. NOT COMPATIBLE WITH D5W. Stable in refrigerat or for 24 hours MEDICATION WASTE Product Size: 1000 mg Product Wasted: ___ mg ertapenem 2017-10 No Notes: Memori a 2-26 (Same as: l 16:00: INVanz) [place] 00 Refrigerat e. NOT COMPATIBLE WITH D5W. [...] munira n 2-26 (Same l 15:00: as:Thera) [place] 00 WASTE: F/P - Black; E - [...] munira n 2-26 (Same l 15:00: as:Thera) WASTE: F/P - Black; E - Municipal Trash Bin Take with food. Dulcolax 2017-10 No Notes: Memoria Laxative 2-26 (Same As: l 14:58: Dulcolax, Leo 00 Bisco-Lax) Dulcolax 2017-10 No Notes: Memoria Laxative 2-26 (Same As: l 14:58: Dulcolax, [place] 00 Bisco-Lax) Dulcolax 2017-10 No Notes: Memoria Laxative 2-26 (Same As: l 14:58: Dulcolax, [place] 00 Bisco-Lax) Dulcolax 2017-10 No Notes: Memoria Laxative 2-26 (Same As: l 14:58: Dulcolax, [place] 00 Bisco-Lax) heparin 2017-10 No Notes: Memoria 2-25 porcine l 22:00: heparin [place] 00 heparin 2017-10 No Notes: Memoria 2-25 porcine l 22:00: heparin [place] 00 heparin 2017-10 No Notes: Memoria 2-25 porcine l 22:00: heparin [place] 00 heparin 2017-10 No Notes: Memoria 2-25 porcine l 22:00: heparin Plavix 2017-10 No Notes: Memoria 2-25 (Same As: l 19:44: Plavix) [place] Plavix 2017-10 No Notes: Memoria 2-25 (Same As: l 19:44: Plavix) [place] Plavix 2017-10 No Notes: Memoria 2-25 (Same As: l 19:44: Plavix) Leo Plavix 2017-10 No Notes: Memoria 2-25 (Same As: l 19:44: Plavix) [place] 00 Magic 2017-10 No Notes: Memoria Mouthwash 2-25 Magic l (Benadryl/L 15:21: mouth wash [place] idocaine/Ma 00 contains:B alox/) enadryl/Li 1:1:1 docaine/Ma alox/) 1:1:1; total volume 5 ml Magic 2017-10 No Notes: Memoria Mouthwash 2-25 Magic l (Benadryl/L 15:21: mouth wash [place] idocaine/Ma 00 contains:B alox/) enadryl/Li 1:1:1 docaine/Ma alox/) 1:1:1; total volume 5 ml Magic 2017-10 No Notes: Memoria Mouthwash 2-25 Magic l (Benadryl/L 15:21: mouth wash [place] idocaine/Ma 00 contains:B alox/) enadryl/Li 1:1:1 docaine/Ma alox/) 1:1:1; total volume 5 ml Magic 2017-10 No Notes: Memoria Mouthwash 2-25 Magic l (Benadryl/L 15:21: mouth wash [place] idocaine/Ma 00 contains:B alox/) enadryl/Li 1:1:1 docaine/Ma alox/) 1:1:1; total volume 5 ml Vancomycin 2017-10 No 2000 mg: Me moria 2-25 infuse l 07:00: over 2.5 [place] 00 hours For adult patients only: Round [...] 1000 mg Product Wasted: ___ mg Vancomycin 2018- No 2000 mg: Me moria 2-25 infuse l 07:00: over 2.5 [place] 00 hours For adult patients only: Round to nearest 250 mg per Medical Staff approval MEDICATION WASTE Product Size: 1000 mg Product Wasted: ___ mg Cefazolin 2017- No 3,000 mg, Mem oria 2-25 150 mL, l 02:00: Route: [place] 00 IVPB, Drug form: INJ, ABXQ8H, Dosing Weight 136, kg, Start date: 09/24/18 20:00:00 PARKS RECREATION DIRECTOR, Duration: 3 doses or times, Stop date: 09/25/18 12:00:00 PARKS RECREATION DIRECTOR, ABX Indication : Surgical Prophylaxi s Cefazolin 2017- No 3,000 mg, Mem oria 2-25 150 mL, l 02:00: Route: [place] 00 IVPB, Drug form: INJ, ABXQ8H, Dosing Weight 136, kg, Start date: 09/24/18 20:00:00 PARKS RECREATION DIRECTOR, Duration: 3 doses or times, Stop date: 09/25/18 12:00:00 PARKS RECREATION DIRECTOR, ABX Indication : Surgical Prophylaxi s Cefazolin 2017- No 3,000 mg, Mem oria 2-25 150 mL, l 02:00: Route: [place] IVPB, Drug form: INJ, ABXQ8H, Dosing Weight 136, kg, Start date: 09/24/18 20:00:00 PARKS RECREATION DIRECTOR, Duration: 3 doses or times, Stop date: 09/25/18 12:00:00 PARKS RECREATION DIRECTOR, ABX Indication : Surgical Prophylaxi s Cefazolin 2017-1 No 3,000 mg, Mem oria 2-25 150 mL, l 02:00: Route: [place] 00 IVPB, Drug form: INJ, ABXQ8H, Dosing Weight 136, kg, Start date: 09/24/18 20:00:00 PARKS RECREATION DIRECTOR, Duration: 3 doses or times, Stop date: 09/25/18 12:00:00 PARKS RECREATION DIRECTOR, ABX Indication : Surgical Prophylaxi s Lovenox [...] Notes: Memoria 2-24 NSAID. l 23:00: Please [place] 00 check indication . Not for seizure. (Same As: CeleBREX) Neurontin 2017-10 No Notes: Memori a 2-24 (Same as: l 23:00: Neurontin) CeleBREX 2017-10 No Notes: Memoria 2-24 NSAID. l 23:00: Please [place] 00 check indication . Not for seizure. [...] kg, Priority: STAT, Start date: 09/24/18 16:46:00 PARKS RECREATION DIRECTOR, Stop date: 09/24/18 16:46:00 PARKS RECREATION DIRECTOR Metoprolol 2017-10 No 2 mg, Memori a 2-24 Route: IV, l 22:46: ONCE, Dosing Weight 136, kg, Priority: STAT, Start date: 09/24/18 16:46:00 PARKS RECREATION DIRECTOR, Stop date: 09/24/18 16:46:00 PARKS RECREATION DIRECTOR Metoprolol 2017-10 No 2 mg, Memori a 2-24 Route: IV, l 22:46: ONCE, Dosing Weight 136, kg, Priority: STAT, Start date: 09/24/18 16:46:00 PARKS RECREATION DIRECTOR, Stop date: 09/24/18 16:46:00 PARKS RECREATION DIRECTOR Metoprolol 2017-10 No 2 mg, Memori a 2-24 Route: IV, l 22:46: ONCE, Dosing Weight 136, kg, Priority: STAT, Start date: 09/24/18 16:46:00 PARKS RECREATION DIRECTOR, Stop date: 09/24/18 16:46:00 PARKS RECREATION DIRECTOR Oxycodone 2017-10 No Notes: Memori a Hydrochlori 2-24 (Same as: l de 5 MG 21:47: Roxicodone Herm valentin Oral Tablet ) Oxycodone 2017-10 No Notes: Memori a Hydrochlori 2-24 (Same as: l de 5 MG 21:47: Roxicodone Herm valentin Oral Tablet ) Oxycodone 2017-10 No Notes: Memori a Hydrochlori 2-24 (Same as: l de 5 MG 21:47: Roxicodone Herm valentin Oral Tablet 00 ) Oxycodone 2017-10 No Notes: Memori a Hydrochlori 2-24 (Same as: l de 5 MG 21:47: Roxicodone Herm valentin Oral Tablet 00 ) Promethazin 2017-10 No Notes: Do M emoria e 2-24 not give l 20:42: IV push. [place] 00 (Same as: Phenergan) Hydromorpho 2017-10 No Notes: Kaushal munira ne 2-24 Same as l 20:42: Dilaudid [place] 00 Flumazenil 2017-10 No Notes: Memor ia 2-24 (Same as: l 20:42: Romazicon) [place] 00 Naloxone 2017-10 No Notes: Memoria 2-24 Same as l 20:42: Narcan [place] 00 Diphenhydra 2017-10 No Notes: Kaushal munira mine 2-24 (Same as: l 20:42: Benadryl) [place] 00 Hydralazine 2017-10 No Notes: Kaushal munira 2-24 (Same as: l 20:42: Apresoline [place] 00 ) Push over 5 minutes Promethazin 2017-10 No Notes: Do M emoria e 2-24 not give l 20:42: IV push. [place] 00 (Same as: Phenergan) Hydromorpho 2017-10 No Notes: Kaushal munira ne 2-24 Same as l 20:42: Dilaudid [place] 00 Flumazenil 2017-10 No Notes: Memor ia 2-24 (Same as: l 20:42: Romazicon) [place] 00 Naloxone 2017-10 No Notes: Memoria 2-24 Same as l 20:42: Narcan [place] 00 Diphenhydra 2017-10 No Notes: Kaushal munira mine 2-24 (Same as: l 20:42: Benadryl) [place] 00 Hydralazine 2017-10 No Notes: Kaushal munira 2-24 (Same as: l 20:42: Apresoline [place] 00 ) Push over 5 minutes Promethazin 2017-10 No Notes: Do M emoria e 2-24 not give l 20:42: IV push. [place] 00 (Same as: Phenergan) Hydromorpho 2017-10 No Notes: Kaushal munira ne 2-24 Same as l 20:42: Dilaudid [place] 00 Flumazenil 2017-10 No Notes: Memor ia 2-24 (Same as: l 20:42: Romazicon) [place] 00 Naloxone 2017-10 No Notes: Memoria 2-24 Same as l 20:42: Narcan [place] 00 Diphenhydra 2017-10 No Notes: Kaushal munira mine 2-24 (Same as: l 20:42: Benadryl) [place] 00 Hydralazine 2017-10 No Notes: Kaushal munira 2-24 (Same as: l 20:42: Apresoline [place] 00 ) Push over 5 minutes Promethazin 2017-10 No Notes: Do M emoria e 2-24 not give l 20:42: IV push. [place] 00 (Same as: Phenergan) Hydromorpho 2017-10 No Notes: Kaushal munira ne 2-24 Same as l 20:42: Dilaudid [place] 00 Flumazenil 2017-10 No Notes: Memor ia 2-24 (Same as: l 20:42: Romazicon) [place] 00 Naloxone 2017-10 No Notes: Memoria 2-24 Same as l 20:42: Narcan [place] Diphenhydra 2017-10 No Notes: Kaushal munira mine 2-24 (Same as: l 20:42: Benadryl) Leo Hydralazine 2017-10 No Notes: Kaushal munira 2-24 (Same as: l 20:42: Apresoline Leo 00 ) Push over 5 minutes ondansetron 2017-10 No Route: IV, Memoria (ANES) 2-24 Drug form: l 20:29: INJ, ONCE, [place] 00 Stop date: 09/24/18 14:29:00 PARKS RECREATION DIRECTOR sugammadex 2017-10 No Route: IV, M emoria (ANES) 2-24 Drug form: l 20:29: SOLN, [place] 00 ONCE, Stop date: 09/24/18 14:29:00 PARKS RECREATION DIRECTOR ondansetron 2017-10 No Route: IV, Memoria (ANES) 2-24 Drug form: l 20:29: INJ, ONCE, [place] 00 Stop date: 09/24/18 14:29:00 PARKS RECREATION DIRECTOR sugammadex 2017-10 No Route: IV, M emoria (ANES) 2-24 Drug form: l 20:29: SOLN, [place] 00 ONCE, Stop date: 09/24/18 14:29:00 PARKS RECREATION DIRECTOR ondansetron 2017-10 No Route: IV, Memoria (ANES) 2-24 Drug form: l 20:29: INJ, ONCE, Stop date: 09/24/18 14:29:00 PARKS RECREATION DIRECTOR sugammadex 2017-10 No Route: IV, M emoria (ANES) 2-24 Drug form: l 20:29: SOLN, [place] 00 ONCE, Stop date: 09/24/18 14:29:00 PARKS RECREATION DIRECTOR ondansetron 2017-10 No Route: IV, Memoria (ANES) 2-24 Drug form: l 20:29: INJ, ONCE, Stop date: 09/24/18 14:29:00 PARKS RECREATION DIRECTOR sugammadex 2017-10 No Route: IV, M emoria (ANES) 2-24 Drug form: l 20:29: SOLN, [place] 00 ONCE, Stop date: 09/24/18 14:29:00 PARKS RECREATION DIRECTOR sugammadex 2017-10 No Notes: Memor ia 2-24 [...] 19:53: INJ, ONCE, Stop date: 09/24/18 13:53:00 PARKS RECREATION DIRECTOR dexamethaso 2017-10 No Route: IV, Memoria ne (ANES) 2-24 Drug form: l 19:53: INJ, ONCE, Stop date: 09/24/18 13:53:00 PARKS RECREATION DIRECTOR dexamethaso 2017-10 No Route: IV, Memoria ne (ANES) 2-24 Drug form: l 19:53: INJ, ONCE, Stop date: 09/24/18 13:53:00 PARKS RECREATION DIRECTOR dexamethaso 2017-10 No Route: IV, Memoria ne (ANES) 2- Drug form: l 19:53: INJ, ONCE, [place] 00 Stop date: 09/24/18 13:53:00 PARKS RECREATION DIRECTOR acetaminoph 2017-10 No Route: IV, Memoria en (ANES) 2- Drug form: l 10 mg 19:12: INJ, Start [place] n date: 09/24/18 13:12:00 PARKS RECREATION DIRECTOR, Stop date: 09/24/18 14:12:00 PARKS RECREATION DIRECTOR acetaminoph 2017-10 No Route: IV, Memoria en (ANES) 2- Drug form: l 10 mg 19:12: INJ, Start [place] n date: 09/24/18 13:12:00 PARKS RECREATION DIRECTOR, Stop date: 09/24/18 14:12:00 PARKS RECREATION DIRECTOR acetaminoph 2017-10 No Route: IV, Memoria en (ANES) 2- Drug form: l 10 mg 19:12: INJ, Start [place] date: 09/24/18 13:12:00 PARKS RECREATION DIRECTOR, Stop date: 09/24/18 14:12:00 PARKS RECREATION DIRECTOR acetaminoph 2017-10 No Route: IV, Memoria en (ANES) 2- Drug form: l 10 mg 19:12: INJ, Start [place] n date: 09/24/18 13:12:00 PARKS RECREATION DIRECTOR, Stop date: 09/24/18 14:12:00 PARKS RECREATION DIRECTOR fentaNYL 2017-10 No Route: IV, Mem oria (ANES) 2- Drug form: l 19:04: INJ, ONCE, Stop date: 09/24/18 13:04:00 PARKS RECREATION DIRECTOR rocuronium 2017-10 No Route: IV, M emoria (ANES) 2- Drug form: l 19:04: INJ, ONCE, Stop date: 09/24/18 13:04:00 PARKS RECREATION DIRECTOR propofol 2017-10 No Route: IV, Mem oria (ANES) 2- Drug form: l 19:04: INJ, ONCE, Stop date: 09/24/18 13:04:00 PARKS RECREATION DIRECTOR lidocaine 2017-10 No Route: IV, Me moria (ANES) 2-24 Drug form: l 19:04: INJ, ONCE, Stop date: 09/24/18 13:04:00 PARKS RECREATION DIRECTOR fentaNYL 2017-10 No Route: IV, Mem oria (ANES) 2-24 Drug form: l 19:04: INJ, ONCE, Stop date: 09/24/18 13:04:00 PARKS RECREATION DIRECTOR rocuronium 2017-10 No Route: IV, M emoria (ANES) 2-24 Drug form: l 19:04: INJ, ONCE, Stop date: 09/24/18 13:04:00 PARKS RECREATION DIRECTOR propofol 2017-10 No Route: IV, Mem oria (ANES) 2-24 Drug form: l 19:04: INJ, ONCE, Stop date: 09/24/18 13:04:00 PARKS RECREATION DIRECTOR lidocaine 2017-10 No Route: IV, Me moria (ANES) 2-24 Drug form: l 19:04: INJ, ONCE, Stop date: 09/24/18 13:04:00 PARKS RECREATION DIRECTOR fentaNYL 2017-10 No Route: IV, Mem oria (ANES) 2-24 Drug form: l 19:04: INJ, ONCE, Stop date: 09/24/18 13:04:00 PARKS RECREATION DIRECTOR rocuronium 2017-10 No Route: IV, M emoria (ANES) 2-24 Drug form: l 19:04: INJ, ONCE, Stop date: 09/24/18 13:04:00 PARKS RECREATION DIRECTOR propofol 2017-10 No Route: IV, Mem oria (ANES) 2-24 Drug form: l 19:04: INJ, ONCE, Stop date: 09/24/18 13:04:00 PARKS RECREATION DIRECTOR lidocaine 2017-10 No Route: IV, Me moria (ANES) 2-24 Drug form: l 19:04: INJ, ONCE, Stop date: 09/24/18 13:04:00 PARKS RECREATION DIRECTOR fentaNYL 2017-10 No Route: IV, Mem oria (ANES) 2-24 Drug form: l 19:04: INJ, ONCE, Stop date: 09/24/18 13:04:00 PARKS RECREATION DIRECTOR rocuronium 2017-10 No Route: IV, M emoria (ANES) 2-24 Drug form: l 19:04: INJ, ONCE, Stop date: 09/24/18 13:04:00 PARKS RECREATION DIRECTOR propofol 2018 No Route: IV, Mem oria (ANES) 2-24 Drug form: l 19:04: INJ, ONCE, Stop date: 09/24/18 13:04:00 [employer]CRE[employer] lidocaine 2017-10 No Route: IV, Me moria (ANES) 2-24 Drug form: l 19:04: INJ, ONCE, Stop date: 09/24/18 13:04:00 [employer]CREATION [employer] ceFAZolin 2017-10 No Route: IV, Me moria (ANES) 2-24 Drug form: l 18:48: INJ, ONCE, Stop date: 09/24/18 12:48:00 [employer] RECREATION DIRECT[employer] ceFAZolin 2017-10 No Route: IV, Me moria (ANES) 2-24 Drug form: l 18:48: INJ, ONCE, Stop date: 09/24/18 12:48:00 [employer]CREATION [employer] ceFAZolin 2017-10 No Route: IV, Me moria (ANES) 2-24 Drug form: l 18:48: INJ, ONCE, Stop date: 09/24/18 12:48:00 [employer]ATION [employer] ceFAZolin 2017-10 No Route: IV, Me moria (ANES) 2-24 Drug form: l 18:48: INJ, ONCE, Stop date: 09/24/18 12:48:00 [employer] vancomycin 2017-10 No Route: IV, M emoria (ANES) 1000 - Drug form: l mg 18:23: INJ, Start date: 09/24/18 12:23:00 [employer]KS RECREATION DIRECTOR, Stop date: 09/24/18 13:23:00 [employer] RECREATION DIRECT[employer] vancomycin 2018 No Route: IV, M emoria (ANES) 1000 2-24 Drug form: l mg 18:23: INJ, Start date: 09/24/18 12:23:00 PARKS RECREATION DIRECTOR, Stop date: 09/24/18 13:23:00 [employer]CRE[employer] vancomycin 2017-10 No Route: IV, M emoria (ANES) 1000 2-24 Drug form: l mg 18:23: INJ, Start date: 09/24/18 12:23:00 PARKS RECREATION DIRECTOR, Stop date: 09/24/18 13:23:00 [employer]CREATION DIRECT[employer] vancomycin 2017-10 No Route: IV, M emoria (ANES) 1000 2-24 Drug form: l mg 18:23: INJ, Start [place] 00 date: 09/24/18 12:23:00 [employer]KS RECREATION DIRECTOR, Stop date: 09/24/18 13:23:00 [employer] RECREATION DIRECT[employer] phenylephri 2017-10 No Route: IV, Memoria ne (ANES) 2-24 Drug form: l 100 17:52: INJ, Start Iliff microgram date: 09/24/18 11:52:00 PARKS RECREATION DIRECTOR, Stop date: 09/24/18 12:52:00 [employer] RECREATION DIRECT[employer] phenylephri 2017-10 No Route: IV, Memoria ne (ANES) 2-24 Drug form: l 100 17:52: INJ, Start Leo microgram date: 09/24/18 11:52:00 PARKS RECREATION DIRECTOR, Stop date: 09/24/18 12:52:00 [employer] RECREATION DIRECT[employer] phenylephri 2017-10 No Route: IV, Memoria ne (ANES) 2-24 Drug form: l 100 17:52: INJ, Start Leo microgram date: 09/24/18 11:52:00 PARKS RECREATION DIRECTOR, Stop date: 09/24/18 12:52:00 PARKS RECREATION DIRECTOR phenylephri 2017-10 No Route: IV, Memoria ne (ANES) 2-24 Drug form: l 100 17:52: INJ, Start [place] microgram date: 09/24/18 11:52:00 PARKS RECREATION DIRECTOR, Stop date: 09/24/18 12:52:00 PARKS RECREATION DIRECTOR Lactated 2017-10 No Route: IV, Mem oria Ringers 2-24 Total l Injection 17:40: Volume: Mervat nn IV (ANES) 00 1,000, 1000 mL Start date: 09/24/18 11:40:00 PARKS RECREATION DIRECTOR, Stop date: 09/24/18 12:40:00 PARKS RECREATION DIRECTOR Lactated 2017-10 No Route: IV, Mem oria Ringers 2-24 Total l Injection 17:40: Volume: Mervat nn IV (ANES) 00 1,000, 1000 mL Start date: 09/24/18 11:40:00 PARKS RECREATION DIRECTOR, Stop date: 09/24/18 12:40:00 PARKS RECREATION DIRECTOR Lactated 2017-10 No Route: IV, Mem oria Ringers 2-24 Total l Injection 17:40: Volume: Mervat nn IV (ANES) 00 1,000, 1000 mL Start date: 09/24/18 11:40:00 PARKS RECREATION DIRECTOR, Stop date: 09/24/18 12:40:00 PARKS RECREATION DIRECTOR Lactated 2017-10 No Route: IV, Mem oria Ringers 2-24 Total l Injection 17:40: Volume: Mervat nn IV (ANES) 00 1,000, 1000 mL Start date: 09/24/18 11:40:00 PARKS RECREATION DIRECTOR, Stop date: 09/24/18 12:40:00 PARKS RECREATION DIRECTOR normal 2017-10 No 1,000 mL, Memori a saline 0.9% 2-24 Rate: 75 l IV 1,000 mL 17:09: ml/hr, Herm valentin 00 Infuse over: 13.3 hr, Route: IV, Dosing Weight 136 kg, Total Volume: 1,000, Start date: 09/24/18 11:09:00 PARKS RECREATION DIRECTOR, Duration: 30 day, Stop date: 10/24/18 11:08:00 PARKS RECREATION DIRECTOR, 2.56, m2 normal 2017-10 No 1,000 mL, Memori a saline 0.9% 2-24 Rate: 75 l IV 1,000 mL 17:09: ml/hr, Herm valentin 00 Infuse over: 13.3 hr, Route: IV, Dosing Weight 136 kg, Total Volume: 1,000, Start date: 09/24/18 11:09:00 PARKS RECREATION DIRECTOR, Duration: 30 day, Stop date: 10/24/18 11:08:00 PARKS RECREATION DIRECTOR, 2.56, m2 normal 2017-10 No 1,000 mL, Memori a saline 0.9% 2-24 Rate: 75 l IV 1,000 mL 17:09: ml/hr, Herm valentin 00 Infuse over: 13.3 hr, Route: IV, Dosing Weight 136 kg, Total Volume: 1,000, Start date: 09/24/18 11:09:00 PARKS RECREATION DIRECTOR, Duration: 30 day, Stop date: 10/24/18 11:08:00 PARKS RECREATION DIRECTOR, 2.56, m2 normal 2017-10 No 1,000 mL, Memori a saline 0.9% 2-24 Rate: 75 l IV 1,000 mL 17:09: ml/hr, Herm valentin 00 Infuse over: 13.3 hr, Route: IV, Dosing Weight 136 kg, Total Volume: 1,000, Start date: 09/24/18 11:09:00 PARKS RECREATION DIRECTOR, Duration: 30 day, Stop date: 10/24/18 11:08:00 PARKS RECREATION DIRECTOR, 2.56, m2 NS (Bolus) 2017-10 No 500 mL, Kaushal munira IV 2-24 500 ml/hr, l 11:42: Infuse [place] 00 Over: 1 hr, Route: IV, 500, Drug form: INJ, ONCE, Priority: STAT, Dosing Weight 136 kg, Start date: 09/24/18 5:42:00 PARKS RECREATION DIRECTOR, Stop date: 09/24/18 5:42:00 PARKS RECREATION DIRECTOR NS (Bolus) 2017-10 No 500 mL, Kaushal munira IV 2-24 500 ml/hr, l 11:42: Infuse [place] 00 Over: 1 hr, Route: IV, 500, Drug form: INJ, ONCE, Priority: STAT, Dosing Weight 136 kg, Start date: 09/24/18 5:42:00 PARKS RECREATION DIRECTOR, Stop date: 09/24/18 5:42:00 PARKS RECREATION DIRECTOR NS (Bolus) 2017-10 No 500 mL, Kaushal munira IV 2-24 500 ml/hr, l 11:42: Infuse [place] 00 Over: 1 hr, Route: IV, 500, Drug form: INJ, ONCE, Priority: STAT, Dosing Weight 136 kg, Start date: 09/24/18 5:42:00 PARKS RECREATION DIRECTOR, Stop date: 09/24/18 5:42:00 PARKS RECREATION DIRECTOR NS (Bolus) 2017-10 No 500 mL, Kaushal munira IV 2-24 500 ml/hr, l 11:42: Infuse [place] 00 Over: 1 hr, Route: IV, 500, Drug form: INJ, ONCE, Priority: STAT, Dosing Weight 136 kg, Start date: 09/24/18 5:42:00 PARKS RECREATION DIRECTOR, Stop date: 09/24/18 5:42:00 PARKS RECREATION DIRECTOR AMIODarone 2017-10 No 2 mg/ml. Me moria 900 mg in 223 Use Glass l D5W 500 ml 17:45: Bottle or He rmann IV 900 mg + 00 Non PVC Dextrose 5% Bag "Use in Water IV 0.22 482 mL micron in-line filter" MEDICATION WASTE Product Size: 900 mg Product Wasted: ___ mg AMIODarone 2018-1 No 2 mg/ml. Me moria 900 mg in 11-24 Use Glass l D5W 500 ml 17:45: Bottle or He rmann IV 900 mg + 00 Non PVC Dextrose 5% Bag "Use in Water IV 0.22 482 mL micron in-line filter" MEDICATION WASTE Product Size: 900 mg Product Wasted: ___ mg AMIODarone 2018- No 2 mg/ml. Me moria 900 mg in 11-24 Use Glass l D5W 500 ml 17:45: Bottle or He rmann IV 900 mg + 00 Non PVC Dextrose 5% Bag "Use in Water IV 0.22 482 mL micron in-line filter" MEDICATION WASTE Product Size: 900 mg Product Wasted: ___ mg AMIODarone 2018- No 2 mg/ml. Me moria 900 mg [...] 150 mg Product Wasted: ___ mg Amiodarone 2017- No 2 mg/ml. Me moria 11-24 "Recommend l 17:44: ation: Use [place] 00 an in-line filter during administra tion for continuous infusions to reduce the incidence of phlebitis" (Same as Codarone) MEDICATION WASTE Product Size: 150 mg Product Wasted: ___ mg Amiodarone 2018-1 No 2 mg/ml. Me moria 11-24 "Recommend l 17:44: ation: Use [place] 00 an in-line filter during administra tion for continuous infusions to reduce the incidence of phlebitis" (Same as Codarone) MEDICATION WASTE Product Size: 150 mg Product Wasted: ___ mg Amiodarone 2018-1 No 2 mg/ml. Me moria 2-23 "Recommend l 17:44: ation: Use [place] 00 an in-line filter during administra tion for continuous infusions to reduce the incidence of phlebitis" (Same as Codarone) MEDICATION WASTE Product Size: 150 mg Product Wasted: ___ mg lactobacill 2017-10 No 1 cap, Kaushal munira us 2-23 Route: PO, l acidophilus 15:00: Dosing Herm valentin 00 Weight 136, kg, Daily, Start date: 09/23/18 9:00:00 PARKS RECREATION DIRECTOR, Duration: 30 day, Stop date: 10/22/18 9:00:00 PARKS RECREATION DIRECTOR Cymbalta 2017-10 No Notes: Memoria 2-23 (Same as: l 15:00: Cymbalta) [place] 00 (Do Not Crush) Vitamin B12 2017-10 No Notes: Kaushal munira 2-23 (Same As: l 15:00: Vitamin [place] 00 B-12) Alprazolam 2017-10 No Notes: Memor [...] 136, kg, Daily, Start date: 09/23/18 9:00:00 PARKS RECREATION DIRECTOR, Duration: 30 day, Stop date: 10/22/18 9:00:00 PARKS RECREATION DIRECTOR Cymbalta 2017-10 No Notes: Memoria 2-23 (Same as: l 15:00: Cymbalta) [place] 00 (Do Not Crush) Vitamin B12 2017-10 No Notes: Kaushal munira 2-23 (Same As: l 15:00: Vitamin [place] 00 B-12) Alprazolam 2017-10 No Notes: Memor [...] 136, kg, Daily, Start date: 09/23/18 9:00:00 PARKS RECREATION DIRECTOR, Duration: 30 day, Stop date: 10/22/18 9:00:00 PARKS RECREATION DIRECTOR Cymbalta 2017-10 No Notes: Memoria 2-23 (Same as: l 15:00: Cymbalta) [place] (Do Not Crush) Vitamin B12 2017-10 No Notes: Kaushal munira 2-23 (Same As: l 15:00: Vitamin [place] 00 B-12) Alprazolam 2017-10 No Notes: Memor ia 1 MG Oral 2-23 With food l Tablet 15:00: or milk [place] 00 (Same as: Xanax) POLYETHYLEN 2017-10 No Notes: Kaushal munira E GLYCOL 2-23 Dissolve l 3350 15:00: in 8 oz of [place] 00 water or juice. (Same as: Miralax) lactobacill 2017-10 No Notes: Kaushal munira us 2-23 Same as l rhamnosus 15:00: Culturelle rmann GG 00 lactobacill 2017-10 No 1 cap, Kaushal munira us 2-23 Route: PO, l acidophilus 15:00: Dosing Herm valentin Weight 136, kg, Daily, Start date: 09/23/18 9:00:00 PARKS RECREATION DIRECTOR, Duration: 30 day, Stop date: 10/22/18 9:00:00 PARKS RECREATION DIRECTOR Cymbalta 2017-10 No Notes: Memoria 2-23 (Same as: l 15:00: Cymbalta) [place] 00 (Do Not Crush) Vitamin B12 2017-10 No Notes: Kaushal munira 2-23 (Same As: l 15:00: Vitamin [place] 00 B-12) Alprazolam 2017-10 No Notes: Memor ia 1 MG Oral 2-23 With food l Tablet 15:00: or milk [place] 00 (Same as: Xanax) POLYETHYLEN 2017-10 No Notes: Kaushal munira E GLYCOL 2-23 Dissolve l 3350 15:00: in 8 oz of [place] 00 water or juice. (Same as: Miralax) lactobacill 2017-10 No Notes: Kaushal munira us 2-23 Same as l rhamnosus 15:00: Culturelle rmann GG 00 Spiriva 2017-10 No Notes: Memoria 2-23 (Same As: l 14:00: Spiriva) [place] 00 Spiriva 2017-10 No Notes: Memoria 2-23 (Same As: l 14:00: Spiriva) Leo Spiriva 2017-10 No Notes: Memoria 2-23 (Same As: l 14:00: Spiriva) [place] Spiriva 2017-10 No Notes: Memoria 2-23 (Same As: l 14:00: Spiriva) [place] pantoprazol 2017-10 No Notes: Kaushal munira e [...] ia 2-23 (Same as: l 07:00: Lovenox) [place] Enoxaparin 2017-10 No Notes: Memor ia 2-23 (Same as: l 07:00: Lovenox) [place] Enoxaparin 2017-10 No Notes: Memor ia 2-23 (Same as: l 07:00: Lovenox) [place] 00 montelukast 2018-1 No Notes: Kaushal munira 2-23 (Same l 03:00: as:Singula [place] 00 ir) atorvastati 2017-10 No Notes: Kaushal munira n 2-23 (Same as: l 03:00: Lipitor) [place] 00 sennosides, 2017-10 No Notes: Kaushal munira SENIOR CARE 2-23 (Same as: l 03:00: Senokot) Leost 2017-10 No Notes: Kaushal munira 2-23 (Same l 03:00: as:Singula [place] 00 ir) ator2017-10 No Notes: Kaushal munira n 2-23 (Same as: l 03:00: Lipitor) Leoside, 2017-10 No Notes: Kaushal munira SENIOR CARE 2-23 (Same as: l 03:00: Senokot) 2017-10 No Notes: Kaushal munira 2-23 (Same l 03:00: as:Singula [place] 00 ir) atorti 2017-10 No Notes: Kaushal munira n 2-23 (Same as: l 03:00: Lipitor) side, 2017-10 No Notes: Kaushal munira SENIOR CARE 2-23 (Same as: l 03:00: Senokot) 2017-10 No Notes: Kaushal munira 2-23 (Same l 03:00: as:Singula [place] 00 ir) 2017-10 No Notes: Kaushal munira n 2-23 (Same as: l 03:00: Lipitor) [place] 00 sennosides, 2017-10 No Notes: Kaushal munira SENIOR CARE 2-23 (Same as: l 03:00: Senokot) Leo [...] 2-23 (Same As: l 00:00: Rocephin). [place] Use with 100 mL NS and infuse over 30 min MEDICATION WASTE Product Size: 1000 mg Product Wasted: 0 mg Ceftriaxone 2017-10 No Notes: Kaushal munira 2-23 (Same As: l 00:00: Rocephin). [place] Use with 100 mL NS and infuse over 30 min MEDICATION WASTE Product Size: 1000 mg Product Wasted: 0 mg Coreg 2017-10 No Notes: Memoria 2-22 Give with l 23:00: food. [place] 00 (Same As: Coreg) Docusate 2017-10 No Notes: Memoria 2-22 (Same as: l 23:00: Colace) [place] (Do Not Crush) Coreg 2017-10 No Notes: Memoria 2-22 Give with l 23:00: food. [place] 00 (Same As: Coreg) Docusate 2017-10 No Notes: Memoria 2-22 (Same as: l 23:00: Colace) [place] 00 (Do Not Crush) Coreg 2017-10 No Notes: Memoria 2-22 Give with l 23:00: food. [place] (Same As: Coreg) Docusate 2017-10 No Notes: Memoria 2-22 (Same as: l 23:00: Colace) [place] 00 (Do Not Crush) Coreg 2017-10 No Notes: Memoria 2-22 Give with l 23:00: food. [place] 00 (Same As: Coreg) Docusate 2017-10 No Notes: Memoria 2-22 (Same as: l 23:00: Colace) [place] (Do Not Crush) Rocephin 2017-10 No 1 gm, Memoria 2-22 Route: l 21:18: IVPB, Drug [place] 00 form: PDR/INJ, ONCE, Dosing Weight 136, kg, Priority: STAT, Start date: 09/22/18 15:18:00 PARKS RECREATION DIRECTOR, Stop date: 09/22/18 15:18:00 PARKS RECREATION DIRECTOR, ABX Indication : Urinary Tract Infection Rocephin 2017-10 No 1 gm, Memoria 2-22 Route: l 21:18: IVPB, Drug [place] 00 form: PDR/INJ, ONCE, Dosing Weight 136, kg, Priority: STAT, Start date: 09/22/18 15:18:00 PARKS RECREATION DIRECTOR, Stop date: 09/22/18 15:18:00 PARKS RECREATION DIRECTOR, ABX Indication : Urinary Tract Infection Rocephin 2017-10 No 1 gm, Memoria 2-22 Route: l 21:18: IVPB, Drug [place] 00 form: PDR/INJ, ONCE, Dosing Weight 136, kg, Priority: STAT, Start date: 09/22/18 15:18:00 PARKS RECREATION DIRECTOR, Stop date: 09/22/18 15:18:00 PARKS RECREATION DIRECTOR, ABX Indication : Urinary Tract Infection Rocephin 2017-10 No 1 gm, Memoria 2-22 Route: l 21:18: IVPB, Drug [place] 00 form: PDR/INJ, ONCE, Dosing Weight 136, kg, Priority: STAT, Start date: 09/22/18 15:18:00 PARKS RECREATION DIRECTOR, Stop date: 09/22/18 15:18:00 PARKS RECREATION DIRECTOR, ABX Indication : Urinary Tract Infection gabapentin 2017-10 No Notes: Memor ia 2-22 (Same as: l 20:00: Neurontin) [place] 00 Acetaminoph 2017-10 No Notes: Max Memoria en 2-22 acetaminop l 20:00: hen 4000 [place] 00 mg/day (4 gm/day). (Same as: Tylenol Extra Strength) celecoxib 2017-10 No Notes: Memori a 2-22 NSAID. l 20:00: Please [place] 00 check indication . Not for seizure. (Same As: CeleBREX) gabapentin 2017-10 No Notes: Memor ia 2-22 (Same as: l 20:00: Neurontin) [place] Acetaminoph 2017-10 No Notes: Max Memoria en 2-22 acetaminop l 20:00: hen 4000 [place] 00 mg/day (4 gm/day). (Same as: Tylenol Extra Strength) celecoxib 2017-10 No Notes: Memori a 2-22 NSAID. l 20:00: Please [place] 00 check indication . Not for seizure. (Same As: CeleBREX) gabapentin 2017-10 No Notes: Memor ia 2-22 (Same as: l 20:00: Neurontin) [place] Acetaminoph 2017-10 No Notes: Max Memoria en 2-22 acetaminop l 20:00: hen 4000 [place] 00 mg/day (4 gm/day). (Same as: Tylenol Extra Strength) celecoxib 2017-10 No Notes: Memori a 2-22 NSAID. l 20:00: Please [place] 00 check indication . Not for seizure. (Same As: CeleBREX) gabapentin 2017-10 No Notes: Memor ia 2-22 (Same as: l 20:00: Neurontin) [place] Acetaminoph 2017-10 No Notes: Max Memoria en 2-22 acetaminop l 20:00: hen 4000 [place] 00 mg/day (4 gm/day). (Same as: Tylenol Extra Strength) celecoxib 2017-10 No Notes: Memori a 2-22 NSAID. l 20:00: Please [place] 00 check indication . Not for seizure. (Same As: CeleBREX) Albuterol 2017-10 No Notes: Memori a 0.833 MG/ML 2-22 (Same as: 19:47: Duoneb) [place] Ipratropium 00 Mclean 0.167 MG/ML Inhalant Solution [DuoNeb] Oxazepam 2017-10 No 30 mg, 1 Me moria MG Oral 2-22 cap, l Capsule 19:47: Route: PO, Herm valentin 00 Drug form: CAP, Bedtime, Dosing Weight 136, kg, Priority: NOW, Start date: 09/22/18 13:47:00 PARKS RECREATION DIRECTOR, Duration: 30 day, Stop date: 10/21/18 21:00:00 PARKS RECREATION DIRECTOR Albuterol 2017-10 No Notes: Memori a 0.833 MG/ML 2-22 (Same as: 19:47: Duoneb) [place] Ipratropium 00 Mclean 0.167 MG/ML Inhalant Solution [DuoNeb] Oxazepam 2017-10 No 30 mg, 1 Me moria MG Oral 2-22 cap, l Capsule 19:47: Route: PO, Herm valentin 00 Drug form: CAP, Bedtime, Dosing Weight 136, kg, Priority: NOW, Start date: 09/22/18 13:47:00 PARKS RECREATION DIRECTOR, Duration: 30 day, Stop date: 10/21/18 21:00:00 PARKS RECREATION DIRECTOR Albuterol 2017-10 No Notes: Memori a 0.833 MG/ML 2-22 (Same as: 19:47: Duoneb) [place] Ipratropium 00 Mclean 0.167 MG/ML Inhalant Solution [DuoNeb] Oxazepam 2017-10 No 30 mg, 1 Me moria MG Oral 2-22 cap, l Capsule 19:47: Route: PO, Herm valentin 00 Drug form: CAP, Bedtime, Dosing Weight 136, kg, Priority: NOW, Start date: 09/22/18 13:47:00 PARKS RECREATION DIRECTOR, Duration: 30 day, Stop date: 10/21/18 21:00:00 PARKS RECREATION DIRECTOR Albuterol 2017-10 No Notes: Memori a 0.833 MG/ML 2-22 (Same as: :47: Duoneb) [place] Ipratropium 00 Mclean 0.167 MG/ML Inhalant Solution [DuoNeb] Oxazepam 2017-10 No 30 mg, 1 Me moria MG Oral 2-22 cap, l Capsule 19:47: Route: PO, Herm valentin 00 Drug form: CAP, Bedtime, Dosing Weight 136, kg, Priority: NOW, Start date: 09/22/18 13:47:00 PARKS RECREATION DIRECTOR, Duration: 30 day, Stop date: 10/21/18 21:00:00 PARKS RECREATION DIRECTOR Vitamin B12 2017-10 No 1,000 Memor ia [...] No Notes: Memor ia 2-22 (Same as: arthur 19:38: Lopressor) Leo 00 Push over 2 minutes Metoprolol 2017-10 No Notes: Memor ia 2-22 (Same as: l 19:38: Lopressor) [place] 00 Push over 2 minutes Metoprolol 2017-10 No Notes: Memor ia 2-22 (Same as: l 19:38: Lopressor) [place] 00 Push over 2 minutes Metoprolol 2017-10 No Notes: Memor ia 2-22 (Same as: l 19:38: Lopressor) [place] 00 Push over 2 minutes Saline 2017-10 No Notes: Memoria Flush 0.9% 2-22 (Same as: l 19:37: BD [place] 00 Posiflush) Lactated 2017-10 No 1,000 mL, Kaushal munira Ringers IV 2-22 Rate: 100 l 1,000 mL 19:37: ml/hr, [place] 00 Infuse over: 10 hr, Route: IV, Dosing Weight 136 kg, Total Volume: 1,000, Start date: 09/22/18 13:37:00 PARKS RECREATION DIRECTOR, Duration: 12 hr, Stop date: 09/23/18 1:36:00 PARKS RECREATION DIRECTOR, 2.56, m2 Saline 2017-10 No Notes: Memoria Flush 0.9% 2-22 (Same as: l 19:37: BD [place] 00 Posiflush) Lactated 2017-10 No 1,000 mL, Kaushal munira Ringers IV 2-22 Rate: 100 l 1,000 mL 19:37: ml/hr, [place] 00 Infuse over: 10 hr, Route: IV, Dosing Weight 136 kg, Total Volume: 1,000, Start date: 09/22/18 13:37:00 PARKS RECREATION DIRECTOR, Duration: 12 hr, Stop date: 09/23/18 1:36:00 PARKS RECREATION DIRECTOR, 2.56, m2 Saline 2017-10 No Notes: Memoria Flush 0.9% 2-22 (Same as: l 19:37: BD [place] 00 Posiflush) Lactated 2017-10 No 1,000 mL, Kaushal munira Ringers IV 2-22 Rate: 100 l 1,000 mL 19:37: ml/hr, [place] 00 Infuse over: 10 hr, Route: IV, Dosing Weight 136 kg, Total Volume: 1,000, Start date: 09/22/18 13:37:00 PARKS RECREATION DIRECTOR, Duration: 12 hr, Stop date: 12/23/18 1:36:00 PARKS RECREATION DIRECTOR, 2.56, m2 Saline 2017-10 No Notes: Memoria Flush 0.9% 2-22 (Same as: l 19:37: BD Posiflush) Lactated 2017-10 No 1,000 mL, Kaushal munira Ringers IV 2-22 Rate: 100 l 1,000 mL 19:37: ml/hr, Infuse over: 10 hr, Route: IV, Dosing Weight 136 kg, Total Volume: 1,000, Start date: 09/22/18 13:37:00 PARKS RECREATION DIRECTOR, Duration: 12 hr, Stop date: 09/23/18 1:36:00 PARKS RECREATION DIRECTOR, 2.56, m2 Furosemide 2017-10 No 40 mg = 1 Me moria 40 MG Oral 2-22 tab, PO, l Tablet 19:28: BID, # 30 [place] n 00 tab, 0 Refill(s) atorvastati 2017-10 Yes 40 mg = 1 M emoria n 40 mg 2-22 tab, PO, l oral tablet 19:28: Bedtime, # [place] 00 30 tab, 0 Refill(s) clopidogrel 2017-10 Yes 75 mg = 1 M emoria 75 mg oral 2-22 tab, PO, l tablet 19:28: Daily, # [place] 00 30 tab, 0 Refill(s) omeprazole 2017-10 Yes 20 mg = 1 Me moria 20 mg oral 2-22 tab, PO, l enteric 19:28: Daily, # [place] n coated 00 30 tab, 3 tablet Refill(s) Acidophilus 2017-10 No Daily, 0 Me moria 2-22 Refill(s) l 19:28: [place] 00 carvedilol 2017-10 No 25 mg = [...] munira 2-22 Daily, PRN l 19:28: Constipati [place] 00 on, 0 Refill(s) Furosemide 2017-10 No 40 mg = 1 Me moria 40 MG Oral 2-22 tab, PO, l Tablet 19:28: BID, # 30 [place] n 00 tab, 0 Refill(s) atorvastati 2017-10 Yes 40 mg = 1 M emoria n 40 mg 2-22 tab, PO, l oral tablet 19:28: Bedtime, # [place] 00 30 tab, 0 Refill(s) clopidogrel 2017-10 [...] munira 2-22 Daily, PRN l 19:28: Constipati [place] 00 on, 0 Refill(s) Furosemide 2017-10 No 40 mg = 1 Me moria 40 MG Oral 2-22 tab, PO, l Tablet 19:28: BID, # 30 [place] n 00 tab, 0 Refill(s) atorvastati 2017-10 Yes 40 mg = 1 M emoria n 40 mg 2-22 tab, PO, l oral tablet 19:28: Bedtime, # [place] 00 30 tab, 0 Refill(s) clopidogrel 2017-10 Yes 75 mg = 1 M emoria 75 mg oral 2-22 tab, PO, l tablet 19:28: Daily, # [place] 00 30 tab, 0 Refill(s) omeprazole 2017-10 Yes 20 mg = 1 Me moria 20 mg oral 2-22 tab, PO, l enteric 19:28: Daily, # [place] n coated 00 30 tab, 3 tablet Refill(s) Acidophilus 2017-10 No Daily, 0 Me moria 2-22 Refill(s) l 19:28: [place] 00 carvedilol 2017-10 No 25 mg = [...] munira 2-22 Daily, PRN l 19:28: Constipati [place] 00 on, 0 Refill(s) Furosemide 2017-10 No [...] tab, PO, l tablet 19:28: Daily, # [place] 00 30 tab, 0 Refill(s) omeprazole 2017-10 [...] munira 2-22 Daily, PRN l 19:28: Constipati [place] 00 on, 0 Refill(s) Tramadol 2017-10 No Notes: Not Mem oria 2-22 to exceed l 19:27: 400mg/day. [place] 00 (Same As: Ultram) Hydromorpho 2017-10 No Notes: Kaushal munira ne 2-22 Same as l 19:27: Dilaudid [place] Melatonin 2017-10 No Notes: Memori a 2-22 (Same as: l 19:27: Melatonin) [place] tizanidine 2017-10 No Notes: Memor ia 2-22 (Same As: l 19:27: Zanaflex) [place] 00 Ondansetron 2017-10 No Notes: Kaushal munira 2-22 (Same as: l 19:27: Zofran) [place] 00 MEDICATION WASTE Product Size: 4 mg Product Wasted: _0__ mg Tramadol 2017-10 No Notes: Not Mem oria 2-22 to exceed l 19:27: 400mg/day. [place] 00 (Same As: Ultram) Hydromorpho 2017-10 No Notes: Kaushal munira ne 2-22 Same as l 19:27: Dilaudid [place] Melatonin 2017-10 No Notes: Memori a 2-22 (Same as: l 19:27: Melatonin) [place] tizanidine 2017-10 No Notes: Memor ia 2-22 (Same As: l 19:27: Zanaflex) [place] Ondansetron 2017-10 No Notes: Kaushal munira 2-22 (Same as: l 19:27: Zofran) [place] 00 MEDICATION WASTE Product Size: 4 mg Product Wasted: _0__ mg Tramadol 2017-10 No Notes: Not Mem oria 2-22 to exceed l 19:27: 400mg/day. [place] 00 (Same As: Ultram) Hydromorpho 2017-10 No Notes: Kaushal munira ne 2-22 Same as l 19:27: Dilaudid [place] 00 Melatonin 2017-10 No Notes: Memori a 2-22 [...] 4 mg Product Wasted: _0__ mg Oxycodone 2017- No 5 mg, 1 Memor ia Hydrochlori 2-22 tab, l de 5 MG 18:00: Route: PO, Herm valentin Oral Tablet 00 Q6H, Dosing Weight 136, kg, Start date: 09/22/18 12:00:00 PARKS RECREATION DIRECTOR, Duration: 30 day, Stop date: 10/22/18 6:00:00 PARKS RECREATION DIRECTOR Oxycodone 2018-1 No 5 mg, 1 Memor ia Hydrochlori 2-22 tab, l de 5 MG 18:00: Route: PO, Herm valentin Oral Tablet 00 Q6H, Dosing Weight 136, kg, Start date: 09/22/18 12:00:00 PARKS RECREATION DIRECTOR, Duration: 30 day, Stop date: 10/22/18 6:00:00 PARKS RECREATION DIRECTOR Oxycodone 2017- No 5 mg, 1 Memor ia Hydrochlori 2-22 tab, l de 5 MG 18:00: Route: PO, Herm valentin Oral Tablet 00 Q6H, Dosing Weight 136, kg, Start date: 09/22/18 12:00:00 PARKS RECREATION DIRECTOR, Duration: 30 day, Stop date: 10/22/18 6:00:00 PARKS RECREATION DIRECTOR Oxycodone 2017- No 5 mg, 1 Memor ia Hydrochlori 2-22 tab, l de 5 MG 18:00: Route: PO, Herm valentin Oral Tablet 00 Q6H, Dosing Weight 136, kg, Start date: 09/22/18 12:00:00 PARKS RECREATION DIRECTOR, Duration: 30 day, Stop date: 10/22/18 6:00:00 PARKS RECREATION DIRECTOR Hydromorpho 2017- No 0.5 mg, Mem oria ne 11-23 Route: l 17:53: IVP, ONCE, [place] Dosing Weight 136, kg, Priority: STAT, Start date: 09/22/18 11:53:00 PARKS RECREATION DIRECTOR, Stop date: 09/22/18 11:53:00 PARKS RECREATION DIRECTOR Hydromorpho 2017-10 No 0.5 mg, Mem oria ne 11-23 Route: l 17:53: IVP, ONCE, Leo Dosing Weight 136, kg, Priority: STAT, Start date: 09/22/18 11:53:00 PARKS RECREATION DIRECTOR, Stop date: 09/22/18 11:53:00 PARKS RECREATION DIRECTOR Hydromorpho 2017- No 0.5 mg, Mem oria ne 11-23 Route: l 17:53: IVP, ONCE, [place] 00 Dosing Weight 136, kg, Priority: STAT, Start date: 09/22/18 11:53:00 PARKS RECREATION DIRECTOR, Stop date: 09/22/18 11:53:00 PARKS RECREATION DIRECTOR Hydromorpho 2017- No 0.5 mg, Mem oria ne 11-23 Route: l 17:53: IVP, ONCE, Leo Dosing Weight 136, kg, Priority: STAT, Start date: 09/22/18 11:53:00 PARKS RECREATION DIRECTOR, Stop date: 09/22/18 11:53:00 PARKS RECREATION DIRECTOR Calcium 2017- No 1,000 mL, Memor ia Chloride 2-22 Infuse l 0.0014 16:51: Over: 1 [place] MEQ/ML / 00 hr, Route: Potassium IV, ONCE, Chloride Priority: 0.004 STAT, MEQ/ML / Dosing Sodium Weight 136 Chloride kg, Start 0.103 date: MEQ/ML / 09/22/18 Sodium 10:51:00 Lactate [employer] RECREATION DIRECTOR, Stop 0.028 date: MEQ/ML 09/22/18 Injectable 10:51:00 Solution [employer]CREATION DIRECTOR Calcium 2017-10 No 1,000 mL, Memor [facility] Chloride 2-22 Infuse l 0.0014 16:51: Over: 1 [place] MEQ/ML / 00 hr, Route: Potassium IV, ONCE, Chloride Priority: 0.004 STAT, MEQ/ML / Dosing Sodium Weight 136 Chloride kg, Start 0.103 date: MEQ/ML / 09/22/18 Sodium 10:51:00 Lactate [employer] RECREATION DIRECTOR, Stop 0.028 date: MEQ/ML 09/22/18 Injectable 10:51:00 Solution [employer] RECREATION DIRECTOR Calcium 2017-10 No 1,000 mL, Memor [facility] Chloride 2-22 Infuse l 0.0014 16:51: Over: 1 [place] MEQ/ML / 00 hr, Route: Potassium IV, ONCE, Chloride Priority: 0.004 STAT, MEQ/ML / Dosing Sodium Weight 136 Chloride kg, Start 0.103 date: MEQ/ML / 09/22/18 Sodium 10:51:00 Lactate [employer]CREATION DIRECTOR, Stop 0.028 date: MEQ/ML 09/22/18 Injectable 10:51:00 Solution [employer] RECREATION DIRECTOR Calcium 2017-10 No 1,000 mL, [facility] Chloride 2-22 Infuse l 0.0014 16:51: Over: 1 [place] MEQ/ML / 00 hr, Route: Potassium IV, ONCE, Chloride Priority: 0.004 STAT, MEQ/ML / Dosing Sodium Weight 136 Chloride kg, Start 0.103 date: MEQ/ML / 09/22/18 Sodium 10:51:00 Lactate [employer]KS RECREATION DIRECTOR, Stop 0.028 date: MEQ/ML 18 Injectable 10:51:00 Solution [employer]KS RECREATION DIRECTOR Oxycodone 2017-10 No Notes: Memori a Hydrochlori [...] Herm valentin Oral Tablet 00 ) Oxycodone 2017- No 5 mg, [facility] Hydrochlori 2-22 Route: PO, l de 5 MG 14:22: ONCE, [place] Oral Tablet 00 Dosing Weight 136, kg, Start date: 09/22/18 8:22:00 [employer] RECREATION DIRECTOR, Stop date: 09/22/18 8:22:00 [employer]CREATION DIRECTOR Oxycodone 2017- No 5 mg, [facility] Hydrochlori 2-22 Route: PO, l de 5 MG 14:22: ONCE, [place] Oral Tablet 00 Dosing Weight 136, kg, Start date: 09/22/18 8:22:00 [employer] RECREATION DIRECTOR, Stop date: 09/22/18 8:22:00 [employer]KS RECREATION DIRECTOR Oxycodone 2017- No 5 mg, [facility] Hydrochlori 2-22 Route: PO, l de 5 MG 14:22: ONCE, [place] Oral Tablet 00 Dosing Weight 136, kg, Start date: 09/22/18 8:22:00 [employer]KS RECREATION DIRECTOR, Stop date: 09/22/18 8:22:00 [employer]KS RECREATION DIRECTOR Oxycodone 2017- No 5 mg, Memoria Hydrochlori 2-22 Route: PO, l de 5 MG 14:22: ONCE, [place] Oral Tablet 00 Dosing Weight 136, kg, Start date: 09/22/18 8:22:00 PARKS RECREATION DIRECTOR, Stop date: 09/22/18 8:22:00 PARKS RECREATION DIRECTOR Coreg 2017-10 No 25 mg, Memoria 2-22 Route: PO, l 14:16: ONCE, Leo 00 Dosing Weight 136, kg, Start date: 09/22/18 8:16:00 PARKS RECREATION DIRECTOR, Stop date: 09/22/18 8:16:00 PARKS RECREATION DIRECTOR Coreg 2017- No 25 mg, Memoria 2-22 Route: PO, l 14:16: ONCE, [place] 00 Dosing Weight 136, kg, Start date: 09/22/18 8:16:00 PARKS RECREATION DIRECTOR, Stop date: 09/22/18 8:16:00 PARKS RECREATION DIRECTOR Coreg 2017-10 No 25 mg, Memoria 2-22 Route: PO, l 14:16: ONCE, Leo 00 Dosing Weight 136, kg, Start date: 09/22/18 8:16:00 PARKS RECREATION DIRECTOR, Stop date: 09/22/18 8:16:00 PARKS RECREATION DIRECTOR Coreg 2017-1 No 25 mg, Memoria 2-22 Route: PO, l 14:16: ONCE, [place] Dosing Weight 136, kg, Start date: 09/22/18 8:16:00 PARKS RECREATION DIRECTOR, Stop date: 09/22/18 8:16:00 PARKS RECREATION DIRECTOR Dilaudid 2018- No 1 mg, Memoria 2-22 Route: l 10:55: IVP, ONCE, Leo Dosing Weight 136, kg, Priority: STAT, Start date: 09/22/18 4:55:00 PARKS RECREATION DIRECTOR, Stop date: 09/22/18 4:55:00 PARKS RECREATION DIRECTOR Dilaudid 2017- No 1 mg, Memoria 2-22 Route: l 10:55: IVP, ONCE, [place] Dosing Weight 136, kg, Priority: STAT, Start date: 09/22/18 4:55:00 PARKS RECREATION DIRECTOR, Stop date: 09/22/18 4:55:00 PARKS RECREATION DIRECTOR Dilaudid 2017-10 No 1 mg, Memoria 2-22 Route: l 10:55: IVP, ONCE, [place] Dosing Weight 136, kg, Priority: STAT, Start date: 09/22/18 4:55:00 PARKS RECREATION DIRECTOR, Stop date: 09/22/18 4:55:00 PARKS RECREATION DIRECTOR Dilaudid 2017- No 1 mg, Memoria 2-22 Route: l 10:55: IVP, ONCE, Leo 00 Dosing Weight 136, kg, Priority: STAT, Start date: 09/22/18 4:55:00 PARKS RECREATION DIRECTOR, Stop date: 09/22/18 4:55:00 PARKS RECREATION DIRECTOR Dilaudid 2017- No 1 mg, Memoria 2-22 Route: l 08:13: IVP, ONCE, [place] 00 Dosing Weight 136, kg, Priority: STAT, Start date: 09/22/18 2:13:00 PARKS RECREATION DIRECTOR, Stop date: 09/22/18 2:13:00 PARKS RECREATION DIRECTOR Dilaudid 2017- No 1 mg, Memoria 2-22 Route: l 08:13: IVP, ONCE, Leo 00 Dosing Weight 136, kg, Priority: STAT, Start date: 09/22/18 2:13:00 PARKS RECREATION DIRECTOR, Stop date: 09/22/18 2:13:00 PARKS RECREATION DIRECTOR Dilaudid 2017- No 1 mg, Memoria 2-22 Route: l 08:13: IVP, ONCE, [place] 00 Dosing Weight 136, kg, Priority: STAT, Start date: 09/22/18 2:13:00 PARKS RECREATION DIRECTOR, Stop date: 09/22/18 2:13:00 PARKS RECREATION DIRECTOR Dilaudid 2018- No 1 mg, Memoria 2-22 Route: l 08:13: IVP, ONCE, Dosing Weight 136, kg, Priority: STAT, Start date: 09/22/18 2:13:00 PARKS RECREATION DIRECTOR, Stop date: 09/22/18 2:13:00 PARKS RECREATION DIRECTOR Fentanyl 2017- No 25 [facility]oria 2-22 microgram, l 07:25: Route: Leo 00 IVP, ONCE, Dosing Weight 136, kg, Priority: STAT, Start date: 09/22/18 1:25:00 PARKS RECREATION DIRECTOR, Stop date: 09/22/18 1:25:00 PARKS RECREATION DIRECTOR Fentanyl 2017- No 25 Memoria 2-22 microgram, l 07:25: Route: [place] 00 IVP, ONCE, Dosing Weight 136, kg, Priority: STAT, Start date: 09/22/18 1:25:00 PARKS RECREATION DIRECTOR, Stop date: 09/22/18 1:25:00 PARKS RECREATION DIRECTOR Fentanyl 2018- No 25 Memoria 2-22 microgram, l 07:25: Route: IVP, ONCE, Dosing Weight 136, kg, Priority: STAT, Start date: 09/22/18 1:25:00 PARKS RECREATION DIRECTOR, Stop date: 09/22/18 1:25:00 PARKS RECREATION DIRECTOR Fentanyl 2017- No 25 Memoria 2-22 microgram, l 07:25: Route: [place] 00 IVP, ONCE, Dosing Weight 136, kg, Priority: STAT, Start date: 09/22/18 1:25:00 PARKS RECREATION DIRECTOR, Stop date: 09/22/18 1:25:00 PARKS RECREATION DIRECTOR DULoxetine 2017-0 Yes 120mg QD Take 120 [...] Medic al 44 times Center daily. budesonide- 20170 Yes 2{puff} Q.5D Inhale [address] [facility] formoterol 4-04 puffs by [facility] (SYMBICORT) 17:51: mouth via M edical 160-4.5 44 inhaler 2 Center mcg/actuati (two) on inhaler times daily. zolpidem 20170 Yes 10mg Take [address] [facility] (AMBIEN) 10 4-04 by mouth [facility] mg tablet 17:51: every Medical 44 night as Center needed for Insomnia. DULoxetine 2017 Yes 120mg QD Take [address] (CYMBALTA) 4-04 mg by [facility] 60 MG 17:51: mouth Medical capsule 44 daily. [place] gabapentin 20170 Yes 600mg Q.25D Take [address] (NEURONTIN) 4-04 mg by [facility] 600 MG 17:51: mouth 4 Medical tablet 44 (four) Center times daily. ferrous 20170 Yes 325mg Take 325 [facility] sulfate 325 4-04 mg by [facility] (65 FE) MG 17:51: mouth Medica l tablet 44 daily with Center breakfast. montelukast 20170 Yes 10mg QD Take [address] [facility] [address] (SINGULAIR) 4-04 by mouth Luke [facility] 10 mg 17:51: nightly. Medical tablet 44 [place] oxazepam 20170 Yes 30mg Q.25D Take 30 mg [facility] [...] 18:00:00 114 mm[Hg] Univer sity of pressure [facility] Diastolic blood 2021-11-11 18:00:00 65 mm[Hg] Unive rsity of pressure [facility] Heart rate 2021-11-11 18:00:00 80 /min [facility] Respiratory rate 2021-11-11 18:00:00 18 /min [facility] Oxygen saturation in 2021-11-11 18:00:00 90 /min [facility] Arterial blood by [facility] Pulse oximetry Branch Body temperature 2021-11-11 17:00:[address] [facility] Body weight 2021-11-10 09:12:00 143.473 kg [facility] BMI 2021-11-10 09:12:00 52.64 kg/m2 [facility] Body height 2021-11-08 14:00:00 165.1 cm [facility] Temperature Oral (F) 2018-09-27 17:38:00 98.5 F [facility] [place] Systolic (mm Hg) 2018-09-27 17:38:00 Kaushal rial [place] Diastolic (mm Hg) 2018-09-27 17:38:00 Mem orial [place] Heart Rate 2018-09-27 17:38:00 [facility] [place] Respitory Rate 2018-09-27 17:38:00 Memori al [place] Heart Rate 2018-09-27 17:13:00 [facility] [place] Systolic (mm Hg) 2018-09-27 14:52:00 Kaushal rial [place] Diastolic (mm Hg) 2018-09-27 14:52:00 Mem orial [place] Heart Rate 2018-09-27 14:52:00 [facility] [place] Temperature Oral (F) 2018-09-27 14:52:00 98.2 F [facility] [place] Respitory Rate 2018-09-27 14:52:00 Memori al [place] Temperature Oral (F) 2018-09-27 11:32:00 98.2 F [facility] [place] Systolic (mm Hg) 2018-09-27 11:32:00 Kaushal rial [place] Diastolic (mm Hg) 2018-09-27 11:32:00 Mem orial [place] Respitory Rate 2018-09-27 11:32:00 [facility]ori al [place] Weight 2018-09-22 06:43:00 [facility] BMI Calculated 2018-09-22 06:43:00 Memori al [place] Height 2018-09-22 06:43:[address] [facility] Procedures Procedure Date / Time Performing Clinician Source Performed EXTERNAL PROVIDER RECORDS 2022-05-26 05:01:00 Doctor Unassigned, [facility] [place] [facility] EXTERNAL PROVIDER RECORDS 2021-11-24 06:01:00 Doctor Unassigned, [facility] Name [facility] COMP. METABOLIC PANEL 2021-11-11 08:10:00 Adolfo Armstrong [facility] ([id number]) [facility] CBC WITH DIFF 2021-11-11 08:10:00 Patti [facility] N-TERMINAL PRO-BNP 2021-11-11 08:10:[address] [facility] XR CHEST 1 VW 2021-11-10 19:51:47 Jennifer Mccormick [facility] ACUTE CARE ARTERIAL BLOOD 2021-11-10 16:50:00 Aditi [facility] PHOSPHORUS 2021-11-10 12:52:00 Patti [facility] MAGNESIUM 2021-11-10 12:52:00 Patti [facility] COMP. METABOLIC PANEL 2021-11-10 12:52:00 Patti [facility] ([id number]) Medical [place] CBC WITH DIFF 2021-11-10 12:52:00 Patti [facility] N-TERMINAL PRO-BNP 2021-11-10 12:52:[address] [facility] VITAMIN B12, LEVEL 2021-11-09 22:51:[address] [facility] IRON PANEL 2021-11-09 22:51:00 Patti [facility] PROTHROMBIN TIME / INR 2021-11-09 22:51:00 Patti scott [facility] VITAMIN D, 25-OH 2021-11-09 22:51:00 Patti [facility] PROCALCITONIN 2021-11-09 22:51:00 Patti [facility] PHOSPHORUS 2021-11-09 09:39:00 Dafne [facility] MAGNESIUM 2021-11-09 09:39:00 Dafne [facility] BASIC METABOLIC PANEL 2021-11-09 09:39:00 Dafne [facility] (NA, K, CL, CO2, GLUCOSE, Medica l Branch BUN, CREATININE, CA) N-TERMINAL PRO-BNP 2021-11-09 09:39:00 Dafne [facility] TRANSTHORACIC ECHO (TTE) 2021-11-07 14:31:00 Doug Spivey [facility] COMPLETE W/ CONTRAST Medical [facility] PHOSPHORUS 2021-11-07 10:09:00 Doug Spivey [facility] Branch MAGNESIUM 2021-11-07 10:09:00 Allyssa [facility] C-REACTIVE PROTEIN 2021-11-07 10:09:00 Janay Ochoa [facility] TROPONIN I 2021-11-07 10:09:00 Krystyna JaegerHCris [facility] COMP. METABOLIC PANEL 2021-11-07 10:09:00 Janay [facility] ([id number]) [facility] LIPID PANEL (14857)(TOTAL 2021-11-07 10:09:00 Krystyna Jaeger K.H Cris [facility] CHOLESTEROL, [facility] TRIGLYCERIDES, HDL) CBC WITH DIFF 2021-11-07 10:09:00 Allyssa [facility] N-TERMINAL PRO-BNP 2021-11-07 10:09:00 Krystyna Jaeger K.HCris [facility] CT HEAD WO CONTRAST 2021-11-07 08:44:06 Janay Ochoa [facility] POCT GLUCOSE (AUTOMATED) 2021-11-07 03:45:00 Doug Spivey [facility] URINE DRUG (IMMUNOASSAY) 2021-11-07 02:22:00 Ochoa Gustafson [facility] - COMPREHENSIVE DRUG Medical [facility] SCREEN URINE DRUG (LCMSMS) - 2021-11-07 02:22:00 Janay [facility] OPIATES PANEL [facility] URINE DRUG (LCMSMS) - 2021-11-07 02:22:00 Janay [facility] SYNTHETIC OPIATES PANEL [facility] HB ECG ROUTINE & RHYTHM 2021-11-06 22:47:[address] [facility] STRIP Medical Branch COVID-19 (ID NOW RAPID 2021-11-06 22:38:00 Mattie [facility] TESTING) Medical Branch LAB ONLY COVID 2021-11-06 22:38:00 Mattie Thapa [facility] INTERPRETATION [facility] MISCELLANEOUS CULTURE 2021-11-06 21:15:00 Mattie Thapa [facility] URINALYSIS 2021-11-06 21:09:00 Mattie Thapa [facility] URINE CULTURE 2021-11-06 21:08:00 Mattie Thapa [facility] XR CHEST 1 VW 2021-11-06 20:59:57 Mattie Thapa [facility] BLOOD CULTURE SCREEN 2021-11-06 20:26:00 Mattie Thapa [facility] FERRITIN SERUM 2021-11-06 20:26:00 Janay [facility] THYROID STIMULATING 2021-11-06 20:26:00 Janay Ochoa [facility] HORMONE [facility] COMP. METABOLIC PANEL 2021-11-06 20:26:00 Mattie Thapa [facility] ([id number]) [facility] IRON PANEL 2021-11-06 20:26:00 Doug Spivey [facility] CBC WITH DIFF 2021-11-06 20:26:00 Mattie Thapa [facility] GLYCOSYLATED HEMOGLOBIN 2021-11-06 20:26:00 Janay [facility] (A1C) [facility] LACTIC ACID WHOLE BLOOD 2021-11-06 20:25:[address] [facility] EMERGENCY SERVICES 2021-11-06 06:01:00 Doctor Unassigned, [facility] AGREEMENTS AND [place] [facility] AUTHORIZATIONS [facility] 2021-11-06 06:01:00 Doctor Unassigned, [facility] MEDICARE PATIENTS RIGHTS [place] [facility] IMPORTANT MESSAGE [U] XRAY FEMUR 2 VWS LEFT 2018-11-30 00:00:00 [facility] [id number] [U] XRAY KNEE 1 OR 2 VWS 2018-11-13 00:00:00 [facility] RIGHT [id number] [U] XRAY ANKLE MIN 3 VWS 2018-11-13 00:00:00 [facility] RIGHT [id number] [U] XRAY FEMUR 2 VWS LEFT 2018-11-06 00:00:00 [facility] [id number] [U] XRAY FEMUR 2 VWS LEFT 2018-10-31 00:00:00 [facility] [id number] [U] XRAY FEMUR 2 VWS LEFT 2018-10-26 00:00:00 [facility] [id number] TKR -Total prosthetic 2012-10-02 00:00:00 Sree Simmons replacement of knee joint using cement Abdominal hysterectomy 1964-10-02 00:00:00 Simona Bailey Appendectomy 1956-10-02 00:00:00 [facility] Encounters Start End Encounter Admission Attending Care Care Encounter Source Date/Time Date/Time Type Type Clinicians Facility Department ID 2022-05-26 2022-05-26 Orders Doctor DAGMAR [id number] Univers 00:00:00 00:00:00 Only Unassigned, MINDY [id number] ity of [place] [facility] 4.2.7.2.686 Scar as [phone] [facility] 009 Branch 2021-11-24 2021-11-24 Orders Doctor DAGMAR [id number] Univers 00:00:00 00:00:00 Only Unassigned, MINDY [id number] [facility] [place] [facility] [id number] Scar as [id number] [facility] 009 Branch 2021-11-12 2021-11-12 Transition BISHOP Roper [id number] Univers 00:00:00 00:00:00 of Care Arnulfo DYKES [id number] [place] [id number] [facility] 403 Branch 2021-11-06 2021-11-11 Hospital Mattie Thapa [facility] [id number] Univers 13:33:00 14:37:00 Encounter Doug Spivey [id number] ity of [place] 4.2.7.2.686 [facility] [id number] [facility] 080 Branch 2021-11-06 2021-11-11 [id number] Univers 13:33:00 14:37:00 ADITI rey [facility] 2018-12-11 2018-12-11 Appointmen DERECK [facility] Orthopedics [id number] [place] 12:00:00 12:00:00 t; FLASH HARDEN P.A. Physici JEANA, ans P.A. 2018-11-13 2018-11-13 Appointmen DERECK [facility] Orthopedics [id number] [place] 12:00:00 12:00:00 t; FLASH HARDEN P.A. Physici JEANA, ans P.A. 2018-11-06 2018-11-06 Appointmen [facility] [id number] [place] 10:45:00 10:45:00 t; Reinier HARDIN Physi Reinier [place] 2018-10-05 2018-10-05 [facility] [id number] [place] 10:45:00 10:45:00 t; FLASH HARDEN P.A. Physici JEANA, ans P.A. 2018-09-22 2018-09-27 Inpatient [place] [id number] Memoria 06:43:00 23:40:[address] 2018-09-22 2018-09-27 Inpatient [place] [id number] Memoria 06:43:00 23:40:[address] 2018-09-22 2018-09-27 [facility] [id number] 00:43:00 17:40:00 Nooreen 55 Results Test Description Test Time Test Comments Results Result Comments Source N-TERMINAL PRO-BNP 2021-11-11 09:23:09 Test Item Value Reference Range Interpretation Comme nts NT-proBNP (test code = 5100 pg/mL See_Comment H [Aut omated message] The [id number]) system which ge nerated this result tra nsmitted reference range : <=450. The reference r bharti was not used to int erpret this result as zaida l/abnormal. JEAN-PIERRE (test code = JEAN-PIERRE) Biotin has been reported to cause a negative bias, interpret results relative to patient's use of biotin. Lab Interpretation (test Abnormal code = 82519-2) [facility]. METABOLIC PANEL ([id number])2021-11-11 09:14:47 Test Item Value Reference Range Interpretation Comments NA (test code = 139 mmol/L 135-145 3908271066) K (test code = 3.2 mmol/L 3.5-5.0 L 3586496337) CL (test code = 103 mmol/L 98-108 7057125856) CO2 TOTAL (test code = 31 mmol/L 23-31 6260653858) AGAP (test code = 2-16 7021777634) BUN (test code = 14 mg/dL 7-23 7075529059) GLUCOSE (test code = 141 mg/dL 70-110 H 4418198478) CREATININE (test code = 0.76 mg/dL 0.50-1.04 7013158046) TOTAL BILI (test code = 0.4 mg/dL 0.1-1.4 0483234440) CALCIUM (test code = 9.2 mg/dL 8.6-10.6 9346074613) T PROTEIN (test code = 6.3 g/dL 6.3-8.2 1102526180) ALBUMIN (test code = 3.4 g/dL 3.5-5.0 L 3136409062) ALK PHOS (test code = 141 U/L 34-122 H 0932651597) ALTv (test code = 11 U/L 5-35 1742-6) AST(SGOT) (test code = 17 U/L 13-40 0055919526) eGFR (test code = mL/min/1.73m2 2500179805) JEAN-PIERRE (test code = JEAN-PIERRE) Association of [...] tests). Lab Interpretation Abnormal (test code = 69475-7) [facility] WITH [id number] 09:07:25 Test Item Value Reference Range Interpretation [...] (test code = 61.1 fL 39.0-49.9 H 31755-4) RDW-CV (test code = 18.8 % 12.0-15.5 H 788-0) PLT (test code = See_Comment L [Automated 777-3) message] The sy stem which generated this result transmitted reference range : 166 - 358 10*3/ ?L. The reference r bharti was not used to interpret this result as normal/abnormal . MPV (test code = 9.5 fL 9.5-12.9 91160-9) IPF % (test code = 1.2 % 1.3-7.7 L Platelet count 3415312619) measured by fluorescence method. NRBC/100 WBC (test See_Comment [Automat ed code = 6525283731) message] The system which generated this result transmitted reference range : 0.0 - 10.0 /100 WBCs. The refer ence range was not u sed to interpret th is result as normal/abnormal . NRBC x10^3 (test code <0.01 See_Comment [Auto mated = 1017982454) message] The s ystem which generated this result transmitted reference range : 10*3/?L. The reference range was not used to interpret this result as normal/abnormal . GRAN MAT (NEUT) % 71.3 % (test code = 770-8) IMM GRAN % (test code 0.30 % = 3921109858) LYMPH % (test code = 17.0 % 736-9) MONO % (test code = 7.0 % 5905-5) EOS % (test code = 4.1 % 713-8) BASO % (test code = 0.3 % 706-2) GRAN MAT x10^3(ANC) 4.50 10*3/uL 1.88-7.09 (test code = 4676872890) IMM GRAN x10^3 (test <0.03 0.00-0.06 code = 2066386186) LYMPH x10^3 (test code 1.07 10*3/uL 1.32-3.29 L = 731-0) MONO x10^3 (test code 0.44 10*3/uL 0.33-0.92 = 742-7) EOS x10^3 (test code = 0.26 10*3/uL 0.03-0.39 711-2) BASO x10^3 (test code <0.03 0.01-0.07 = 704-7) Lab Interpretation Abnormal (test code = 88684-3) [facility]21[facility]-10 16:53:46 Test Item Value Reference Range Interpretation Comments PH (test code = 2) 7.35-7.45 PCO2 (test code = See_Comment H [Automate d message] 9127610357) The system [employer] generated this result transmitted ref erence range: 35 - 45 mmHg. The reference r bharti was not used to interpret this result as normal/abnor mal. PO2 (test code = See_Comment H [Automated message] 4436691592) The system [employer] generated this result transmitted ref erence range: 80 - 100 mmHg. The reference r bharti was not used to interpret this result as normal/abnor mal. HCO3 (test code = See_Comment H [Automate d message] 2614616404) The system [employer] generated this result transmitted ref erence range: 22 - 26 mEq/L. The reference r bharti was not used to interpret this result as normal/abnor mal. BE (test code = See_Comment [Automated message] 5367174222) The system [employer] generated this result transmitted ref erence range: -3.0 - 3 .0 mEq/L. The refe rence range was not u sed to interpret this result as normal/abnor mal. Lab Interpretation (test Abnormal code = 31437-5) [facility] [id number] 13:39:20 Test Item Value Reference Range Interpretation Comments NT-proBNP (test code 8330 pg/mL See_Comment H [Autom ated = 0463047013) message] The system which generated this result transmitted reference range : <=450. The reference range was not used to interpret this result as normal/abnormal . JEAN-PIERRE (test code = JEAN-PIERRE) Biotin has been reported to cause a negative bias, interpret results relative to patient's use of biotin. Lab Interpretation Abnormal (test code = 81187-2) [facility] 13:31:42 Test Item Value Reference Range Interpretation Comments MAGNESIUM (test code = 4065629946) 1.6 mg/dL 1.7-2.4 L Lab Interpretation (test code = Abnormal 98096-1) [facility] (24412)2021-11-10 13:31:22 Test Item Value Reference Range Interpretation Comments NA (test code = 137 mmol/L 135-145 0351656821) K (test code = 3.8 mmol/L 3.5-5.0 3495398366) CL (test code = 104 mmol/L 98-108 0579197383) CO2 TOTAL (test code = 29 mmol/L 23-31 8597619727) AGAP (test code = 2-16 8855387115) BUN (test code = 11 mg/dL 7-23 2923796434) GLUCOSE (test code = 124 mg/dL 70-110 H 0537252537) CREATININE (test code = 0.71 mg/dL 0.50-1.04 1694474274) TOTAL BILI (test code = 0.5 mg/dL 0.1-1.2 3707932206) CALCIUM (test code = 8.8 mg/dL 8.6-10.6 0526539990) T PROTEIN (test code = 6.1 g/dL 6.3-8.2 L 0592333344) ALBUMIN (test code = 3.2 g/dL 3.5-5.0 L 1802996271) ALK PHOS (test code = 133 U/L 34-122 H 6992350224) ALTv (test code = 11 U/L 5-35 1742-6) AST(SGOT) (test code = 26 U/L 13-40 6714473246) eGFR (test code = mL/min/1.73m2 1315493147) JEAN-PIERRE (test code = JEAN-PIERRE) Association of [...] tests). Lab Interpretation Abnormal (test code = 21705-7) [facility] 13:31:02 Test Item Value Reference Range Interpretation Comments PHOSPHORUS (test code = 8089701173) 3.5 mg/dL 2.5-5.0 Lab Interpretation (test code = Normal 77549-1) [facility] WITH [id number] 13:06:17 Test Item Value Reference Range Interpretation [...] (test code = 59.9 fL 39.0-49.9 H 73968-8) RDW-CV (test code = 18.6 % 12.0-15.5 H 788-0) PLT (test code = See_Comment L [Automated 777-3) message] The sy stem which generated this result transmitted reference range : 166 - 358 10*3/ ?L. The reference r bharti was not used to interpret this result as normal/abnormal . MPV (test code = 9.6 fL 9.5-12.9 94576-1) NRBC/100 WBC (test See_Comment [Automat ed code = 0591592418) message] The system which generated this result transmitted reference range : 0.0 - 10.0 /100 WBCs. The refer ence range was not u sed to interpret th is result as normal/abnormal . NRBC x10^3 (test code See_Comment [Auto mated = 7307728589) message] The s ystem which generated this result transmitted reference range : 10*3/?L. The reference range was not used to interpret this result as normal/abnormal . GRAN MAT (NEUT) % 67.6 % (test code = 770-8) IMM GRAN % (test code 0.80 % = 5657519487) LYMPH % (test code = 20.6 % 736-9) MONO % (test code = 6.4 % 5905-5) EOS % (test code = 4.3 % 713-8) BASO % (test code = 0.3 % 706-2) GRAN MAT x10^3(ANC) 4.09 10*3/uL 1.88-7.09 (test code = 3588842701) IMM GRAN x10^3 (test 0.05 10*3/uL 0.00-0.06 code = 8126168676) LYMPH x10^3 (test code 1.25 10*3/uL 1.32-3.29 L = 731-0) MONO x10^3 (test code 0.39 10*3/uL 0.33-0.92 = 742-7) EOS x10^3 (test code = 0.26 10*3/uL 0.03-0.39 711-2) BASO x10^3 (test code <0.03 0.01-0.07 = 704-7) Lab Interpretation Abnormal (test code = 54408-0) [facility], [id number] 09:17:51 Test Item Value Reference Range Interpretation Comments VIT D 25OH (test code = 30 ng/mL 25-80 68374-1) JEAN-PIERRE (test code = JEAN-PIERRE) Deficiency: <20 ng/mLInsufficiency : 20-24 ng/mLOptimal: 25-80 ng/mL Lab Interpretation (test Normal code = 50126-2) [facility] B12, [id number] 08:17:53 Test Item Value Reference Range Interpretation Comments VIT B12 (test code = >1000 240-930 H 6645671591) JEAN-PIERRE (test code = JEAN-PIERRE) Biotin has been reported to cause a positive bias, interpret results relative to patient's use of biotin. Lab Interpretation (test Abnormal code = 00887-9) [facility]2022-[facility]-09 07:15:44 Test Item Value Reference Range Interpretation Comments Procalcitonin (test 0.03 ng/mL <0.07 code = 9899700227) JEAN-PIERRE (test code = JEAN-PIERRE) INTERPRETATION OF [...] For further information please refer to:[email or web address] Lab Interpretation Normal (test code = 49584-7) [facility] [id number] 00:36:14 Test Item Value Reference Range Interpretation Comments IRON (test code = 2515722665) 35 ug/dL 50-160 L TIBC (test code = 4127751869) 255 ug/dL 250-410 % FE SAT (test code = 6557839544) 14 % 20-50 L Lab Interpretation (test code = Abnormal 23346-3) [facility] / [id number] 23:27:38 Test Item Value Reference Range Interpretation Comments PROTIME PATIENT (test See_Comment H [Auto mated message] code = 5964-2) The system [facility] generated this result transmitted ref erence range: 12.0 - 1 4.7 Seconds. The reference range was not used to int erpret this result as normal/abnormal . INR (test code = 6301-6) Nor mal INR <1.1; Warfarin Therap eutic range 2.0 to 3. 0 or 2.5 to 3.5, dep ending upon the indica tions. Lab Interpretation (test Abnormal code = 67428-0) [facility] S[facility]-[id number] 11:45:52 Test Item Value Reference Range Interpretation Comments NT-proBNP (test code 7910 pg/mL See_Comment H [Autom ated = 3546893314) message] The system which generated this result transmitted reference range : <=450. The reference range was not used to interpret this result as normal/abnormal . JEAN-PIERRE (test code = JEAN-PIERRE) Biotin has been reported to cause a negative bias, interpret results relative to patient's use of biotin. Lab Interpretation Abnormal (test code = 13930-2) [facility] (NA, K, CL, CO2, GLUCOSE, BUN, CREATININE, CA)2021-11-09 11:38:49 Test Item Value Reference Range Interpretation Comments NA (test code = 139 mmol/L 135-145 6775025131) K (test code = 3.8 mmol/L 3.5-5.0 6989305833) CL (test code = 108 mmol/L 98-108 9602746531) CO2 TOTAL (test code 26 mmol/L 23-31 = 7744036547) AGAP (test code = 2-16 6857100072) BUN (test code = 9 mg/dL 7-23 9272996655) GLUCOSE (test code = 101 mg/dL 70-110 6905815799) CREATININE (test code 0.68 mg/dL 0.50-1.04 = 6077099952) CALCIUM (test code = 9.6 mg/dL 8.6-10.6 7306170616) eGFR (test code = mL/min/1.73m2 5226854081) JEAN-PIERRE (test code = JEAN-PIERRE) Association of [...] or urine or abnormalities in imaging tests). [facility] 11:38:49 Test Item Value Reference Range Interpretation Comments MAGNESIUM (test code = 3022373362) 1.8 mg/dL 1.7-2.4 Lab Interpretation (test code = Normal 20094-0) [facility]OS[facility]ORUS2022-[facility] 11:38:29 Test Item Value Reference Range Interpretation Comments PHOSPHORUS (test code = 4483676484) 3.4 mg/dL 2.5-5.0 Lab Interpretation (test code = Normal 60639-6) [facility] CenterIRON QBDZA1202-18-98 21:02:27 Test Item Value Reference Range Interpretation Comments IRON (test code = 7123804676) 30 ug/dL 50-160 L TIBC (test code = 3840365998) 290 ug/dL 250-410 % FE SAT (test code = 8627762865) 10 % 20-50 L Lab Interpretation (test code = Abnormal 63887-2) [facility] CenterTROPONIN [id number] 20:12:01 Test Item Value Reference Interpretation Comments Range TROPONIN I (test 0.020 ng/mL See_Comment [Automated code = 9943506878) message] The system which generated this result [...] biotin. Lab Interpretation Normal (test code = 75349-2) [facility] PZT-YBY1386-59-06 20:09:00 Test Item Value Reference Range Interpretation Comments NT-proBNP (test code 2780 pg/mL See_Comment H [Autom ated = 4125469758) message] The system which generated this result transmitted reference range : <=450. The reference range was not used to interpret this result as normal/abnormal . JEAN-PIERRE (test code = JEAN-PIERRE) Biotin has been reported to cause a negative bias, interpret results relative to patient's use of biotin. Lab Interpretation Abnormal (test code = 86390-4) [facility] CenterLIPID PANEL (03912)(TOTAL CHOLESTEROL, TRIGLYCERIDES, HDL)2021-11-07 19:59:43 Test Item Value Reference Range Interpretation Comments CHOL (test code = 78 mg/dL 120-200 L 4920806803) HDL (test code = 46 mg/dL >50 L 0462895432) HDLC RATIO (test code = See_Comment [Au tomated message] 4370072346) The system [employer] generated this result transmitted ref erence range: <=4.5. T he reference range was not used to int erpret this result as normal/abnormal . TRIG (test code = 68 mg/dL 30-170 2688098312) LDL CHOL (test code = 18 mg/dL See_Comment [Auto mated message] 57007-3) The system whic h generated this result transmitted ref erence range: <=160. T he reference range was not used to int erpret this result as normal/abnormal . VLDL (test code = 14 mg/dL 5-60 4255011643) Lab Interpretation (test Abnormal code = 06081-3) [facility]-REACTIVE [id number] 19:09:12 Test Item Value Reference Range Interpretation Comments CRP (test code = 2302547424) 0.9 mg/dL <0.8 H Lab Interpretation (test code = Abnormal 84643-5) [facility] with Yjkopskcffrb6461-26-66 15:13:46 Test Item Value Reference Range Interpretation [...] (test code = 59.0 fL 39.0-49.9 H 78031-8) RDW-CV (test code = 17.6 % 12.0-15.5 H 788-0) PLT (test code = See_Comment L [Automated 777-3) message] The sy stem which generated this result transmitted reference range : 166 - 358 10*3/ ?L. The reference r bharti was not used to interpret this result as normal/abnormal . MPV (test code = 10.1 fL 9.5-12.9 73987-9) IPF % (test code = 1.2 % 1.3-7.7 L Platelet count 3419077406) measured by fluorescence method. NRBC/100 WBC (test See_Comment [Automat ed code = 2550147387) message] The system which generated this result transmitted reference range : 0.0 - 10.0 /100 WBCs. The refer ence range was not u sed to interpret th is result as normal/abnormal . NRBC x10^3 (test code <0.01 See_Comment [Auto mated = 7193552023) message] The s ystem which generated this result transmitted reference range : 10*3/?L. The reference range was not used to interpret this result as normal/abnormal . GRAN MAT (NEUT) % 54.7 % (test code = 770-8) IMM GRAN % (test code 0.40 % = 4178348316) LYMPH % (test code = 33.1 % 736-9) MONO % (test code = 6.9 % 5905-5) EOS % (test code = 4.4 % 713-8) BASO % (test code = 0.5 % 706-2) GRAN MAT x10^3(ANC) 3.09 10*3/uL 1.88-7.09 (test code = 8376496855) IMM GRAN x10^3 (test <0.03 0.00-0.06 code = 7711920440) LYMPH x10^3 (test code 1.87 10*3/uL 1.32-3.29 = 731-0) MONO x10^3 (test code 0.39 10*3/uL 0.33-0.92 = 742-7) EOS x10^3 (test code = 0.25 10*3/uL 0.03-0.39 711-2) BASO x10^3 (test code 0.03 10*3/uL 0.01-0.07 = 704-7) POLYCHROMASIA (test 2+ See_Comment [Automa janine code = 21498-7) message] The system which generated this result transmitted reference range : 2+. The referen ce range was not u sed to interpret th is result as normal/abnormal . SPHEROCYTES (test code 1+ A = 802-9) PLT ESTIMATE (test Decreased Normal A code = 9317-9) Lab Interpretation Abnormal (test code = 13968-7) [facility] CenterMagnesium Jfsif4628-63-71 13:23:21 Test Item Value Reference Range Interpretation Comments MAGNESIUM (test code = 4461692058) 1.7 mg/dL 1.7-2.4 Lab Interpretation (test code = Normal 21951-1) [facility] CenterCOMP. METABOLIC PANEL (47373)2021-11-07 13:23:01 Test Item Value Reference Range Interpretation Comments NA (test code = 139 mmol/L 135-145 6569640938) K (test code = 4.0 mmol/L 3.5-5.0 0128348024) CL (test code = 109 mmol/L 98-108 H 4650560607) CO2 TOTAL (test code = 27 mmol/L 23-31 1925887655) AGAP (test code = 2-16 0985793746) BUN (test code = 7 mg/dL 7-23 0944491570) GLUCOSE (test code = 105 mg/dL 70-110 6685469706) CREATININE (test code = 0.69 mg/dL 0.50-1.04 1951911111) TOTAL BILI (test code = 0.5 mg/dL 0.1-1.1 6012220838) CALCIUM (test code = 9.7 mg/dL 8.6-10.6 8158003739) T PROTEIN (test code = 6.0 g/dL 6.3-8.2 L 5577260227) ALBUMIN (test code = 3.3 g/dL 3.5-5.0 L 6659240273) ALK PHOS (test code = 144 U/L 34-122 H 2202737412) ALTv (test code = 13 U/L 5-35 1742-6) AST(SGOT) (test code = 21 U/L 13-40 5249070734) eGFR (test code = mL/min/1.73m2 6922893158) JEAN-PIERRE (test code = JEAN-PIERRE) Association of [...] tests). Lab Interpretation Abnormal (test code = 67945-5) [facility] CenterPhosphorus Kvcyv1447-88-55 13:22:41 Test Item Value Reference Range Interpretation Comments PHOSPHORUS (test code = 9370179261) 2.0 mg/dL 2.5-5.0 L Lab Interpretation (test code = Abnormal 22253-8) [facility] CenterPOCT GLUCOSE (AUTOMATED)2021-11-07 08:20:04 Test Item Value Reference Range Interpretation Comments POCT GLU (test code = 6479064622) 103 mg/dL 70-110 Lab Interpretation (test code = Normal 90660-7) [facility] CenterFERRITIN OJMNX4619-49-71 03:00:42 Test Item Value Reference Range Interpretation Comments FERRITIN (test code = 12.4 ng/mL 11.0-264.0 5065260529) JEAN-PIERRE (test code = JEAN-PIERRE) Biotin has been reported to cause a negative bias, interpret results relative to patient's use of biotin. Lab Interpretation (test Normal code = 43449-1) [facility] CenterTHYROID STIMULATING UCBVKPJ0187-16-59 02:56:21 Test Item Value Reference Range Interpretation Comments TSH (test code = See_Comment [Automated message] 5705625805) The system [employer] generated this result transmitted ref erence range: 0.45 - 4 .70 mIU/L. The refe rence range was not u sed to interpret this result as normal/abnor mal. Lab Interpretation (test Normal code = 22962-4) [facility] CenterGLYCOSYLATED HEMOGLOBIN (A1C)2021-11-07 02:29:47 Test Item Value Reference Range Interpretation Comments HGB A1C (test code = 5.1 % 4.0-5.7 4548-4) JEAN-PIERRE (test code = JEAN-PIERRE) Reference RangesNormal: <5.7%Prediabetes: 5.7 - 6.4%Diabetes: > 6.5% Lab Interpretation (test Normal code = 57232-7) [facility] CenterCOMP. Metabolic Panel (82509)2021-11-06 20:57:43 Test Item Value Reference Range Interpretation Comments NA (test code = 140 mmol/L 135-145 5294712334) K (test code = 4.0 mmol/L 3.5-5.0 9525061195) CL (test code = 106 mmol/L 98-108 9953891359) CO2 TOTAL (test code = 31 mmol/L 23-31 1836828960) AGAP (test code = 2-16 5391946240) BUN (test code = 8 mg/dL 7-23 6889885698) GLUCOSE (test code = 117 mg/dL 70-110 H 5934418897) CREATININE (test code = 0.83 mg/dL 0.50-1.04 1238852493) TOTAL BILI (test code = 0.5 mg/dL 0.1-1.9 8541722492) CALCIUM (test code = 10.0 mg/dL 8.6-10.6 6211989390) T PROTEIN (test code = 5.8 g/dL 6.3-8.2 L 2403444352) ALBUMIN (test code = 3.3 g/dL 3.5-5.0 L 0980742018) ALK PHOS (test code = 141 U/L 34-122 H 7503150825) ALTv (test code = 13 U/L 5-35 1742-6) AST(SGOT) (test code = 21 U/L 13-40 2309084171) eGFR (test code = mL/min/1.73m2 1644166461) JEAN-PIERRE (test code = JEAN-PIERRE) Association of [...] tests). Lab Interpretation Abnormal (test code = 69564-1) [facility] with [id number] 20:46:46 Test Item Value Reference Range Interpretation Comments WBC (test code = See_Comment [Automated 3841-2) message] The sy stem which generated this result transmitted reference range : 4.30 - 11.10 10*3/?L. The reference range was not used to interpret this result as normal/abnormal . RBC (test code = See_Comment L [Automated 489-8) message] The sy stem which generated this [...] (test code = 59.1 fL 39.0-49.9 H 41235-2) RDW-CV (test code = 17.6 % 12.0-15.5 H 788-0) PLT (test code = See_Comment L [Automated 777-3) message] The sy stem which generated this result transmitted reference range : 166 - 358 10*3/ ?L. The reference r bharti was not used to interpret this result as normal/abnormal . MPV (test code = 9.2 fL 9.5-12.9 L 07741-2) NRBC/100 WBC (test See_Comment [Automat ed code = 0167149848) message] The system which generated this result transmitted reference range : 0.0 - 10.0 /100 WBCs. The refer ence range was not u sed to interpret th is result as normal/abnormal . NRBC x10^3 (test code <0.01 See_Comment [Auto mated = 6436885371) message] The s ystem which generated this result transmitted reference range : 10*3/?L. The reference range was not used to interpret this result as normal/abnormal . GRAN MAT (NEUT) % 55.4 % (test code = 770-8) IMM GRAN % (test code 0.60 % = 0459678143) LYMPH % (test code = 32.5 % 736-9) MONO % (test code = 7.2 % 5905-5) EOS % (test code = 3.9 % 713-8) BASO % (test code = 0.4 % 706-2) GRAN MAT x10^3(ANC) 2.87 10*3/uL 1.88-7.09 (test code = 4453706053) IMM GRAN x10^3 (test 0.03 10*3/uL 0.00-0.06 code = 9698193702) LYMPH x10^3 (test code 1.68 10*3/uL 1.32-3.29 = 731-0) MONO x10^3 (test code 0.37 10*3/uL 0.33-0.92 = 742-7) EOS x10^3 (test code = 0.20 10*3/uL 0.03-0.39 711-2) BASO x10^3 (test code <0.03 0.01-0.07 = 704-7) Lab Interpretation Abnormal (test code = 45200-9) [facility] CenterLactic Acid Whole Gniep9500-96-16 20:31:53 Test Item Value Reference Range Interpretation Comments LACTIC ACID (test code = 1.59 mmol/L 0.50-2.20 6562609774) Lab Interpretation (test code = Normal 22482-0) [facility][U] XRAY KNEE 1 OR 2 VWS RIGHT [id number] 12:47:00Images acquired, not reported on this accession number.[facility][U] XRAY ANKLE MIN 3 VWS RIGHT [id number] 12:47:00Images acquired, not reported on this accession number.[facility][U] XRAY FEMUR 2 VWS LEFT [id number] 2018-11-13 11:56:00Images acquired, not reported on this accession number.[facility][U] XRAY FEMUR 2 VWS LEFT [id number] 10:54:00Images acquired, not reported on this accession number.[facility] [id number] 12:36:00 Test Item Value Reference Range Interpretation Comments WBC (test code = WBC) 4.0 3.7-10.4 [facility] CenterVvzzexfUVJBXBOAPD7498-58-13 12:36:00 Test Item Value Reference Range Interpretation Comments MCHC (test code = MCHC) 33.4 32.0-36.0 [facility] HospitalAykylatOIPPREONAX3539-87-79 12:36:00 Test Item Value Reference Range Interpretation Comments Hgb (test code = Hgb) 7.8 12.0-16.0 [facility] HospitalGfomckeREGKZPALTZ2985-00-96 12:36:00 Test Item Value Reference Range Interpretation Comments MCH (test code = MCH) 33.4 pg 27.0-31.0 [facility] CenterZojnloiFHIJBFOBZA5911-69-04 12:36:00 Test Item Value Reference Range Interpretation Comments RBC (test code = RBC) 2.33 4.20-5.40 [place] 358828-12-27 12:36:00 Test Item Value Reference Range Interpretation Comments Hct (test code = Hct) 23.2 36.0-48.0 [facility] CenterCoolykbIYDOMNJVFD6927-41-84 12:36:00 Test Item Value Reference Range Interpretation Comments MCV (test code = MCV) 99.9 80.0-98.0 [facility] CenterDzoohihUVHBMSCPFM6794-29-98 12:36:00 Test Item Value Reference Range Interpretation Comments Lymphocytes # (test code = Lymphocytes 1.6 1.0-5.5 #) [place] 358828-12-27 12:36:00 Test Item Value Reference Range Interpretation Comments Segs (test code = Segs) 44.5 45.0-75.0 [facility] CenterAucfqoeZSZNIUCWPO2289-35-67 12:36:00 Test Item Value Reference Range Interpretation Comments Lymphocytes (test code = Lymphocytes) 40.8 20.0-40.0 [facility] CenterZcocfalUZIWHZKDEZ4549-42-71 12:36:00 Test Item Value Reference Range Interpretation Comments Monocytes # (test code 0.3 See_Comment [Aut omated message] The = Monocytes #) system which generated this result tra nsmitted reference range : <=0.8. The reference r bharti was not used to int erpret this result as normal/abnormal . [facility] CenterLhifwmmCKMDRRHIHX6870-46-50 12:36:00 Test Item Value Reference Range Interpretation Comments Eosinophils # (test code 0.3 See_Comment [A utomated message] The = Eosinophils #) system whic h generated this result tra nsmitted reference range : <=0.5. The reference r bharti was not used to int erpret this result as normal/abnormal . [facility] CenterFusjhjiOLUFMDWDDZ5625-46-92 12:36:00 Test Item Value Reference Range Interpretation Comments Neutrophils # (test code = Neutrophils 1.8 1.5-8.1 #) [facility] CenterYyawqebDEWJTDJJWJ5240-64-64 12:36:00 Test Item Value Reference Range Interpretation Comments Monocytes (test code = Monocytes) 7.4 2.0-12.0 [facility] CenterZytotrcZSRAWLFLAE4693-18-21 12:36:00 Test Item Value Reference Range Interpretation Comments Eosinophils (test code = 6.7 See_Comment [A utomated message] The Eosinophils) system which ge nerated this result tra nsmitted reference range : <=4.0. The reference r bharti was not used to int erpret this result as normal/abnormal . [facility] CenterDoiwsfeNMCAEEUCJB2824-19-50 12:36:00 Test Item Value Reference Range Interpretation Comments Basophils (test code = 0.6 See_Comment [Aut omated message] The Basophils) system which ge nerated this result tra nsmitted reference range : <=1.0. The reference r bharti was not used to int erpret this result as normal/abnormal . [facility] CenterFfwhvxiNQYPKMBOOE7380-96-07 12:36:00 Test Item Value Reference Range Interpretation Comments MPV (test code = MPV) 7.4 7.4-10.4 [facility] CenterCzukiydFSQUIIBRTX6506-61-78 12:36:00 Test Item Value Reference Range Interpretation Comments Platelet (test code = Platelet) 138 133-450 [facility] CenterIprfjfkRZBGSTGAXA7251-88-87 12:36:00 Test Item Value Reference Range Interpretation Comments RDW (test code = RDW) 15.6 11.5-14.5 [facility] CenterJtqaujoTSNEVBZBIT7865-69-63 12:36:00 Test Item Value Reference Range Interpretation Comments WBC (test code = WBC) 4.0 3.7-10.4 [facility] CenterMynjtfzAXEJYBHMPU1454-62-33 12:36:00 Test Item Value Reference Range Interpretation Comments MCHC (test code = MCHC) 33.4 32.0-36.0 [facility] CenterLcpvchvDHKRCGKGXL2170-12-88 12:36:00 Test Item Value Reference Range Interpretation Comments Hgb (test code = Hgb) 7.8 12.0-16.0 [facility] CenterQgaqhoqOVFXWNUJIV0199-84-89 12:36:00 Test Item Value Reference Range Interpretation Comments MCH (test code = MCH) 33.4 pg 27.0-31.0 [facility] CenterZnwuneuOKPQBBEDAH9260-26-59 12:36:00 Test Item Value Reference Range Interpretation Comments RBC (test code = RBC) 2.33 4.20-5.40 [place] 358828-12-27 12:36:00 Test Item Value Reference Range Interpretation Comments Hct (test code = Hct) 23.2 36.0-48.0 [facility] CenterZeqbjdrRJIMWENHAY5602-09-38 12:36:00 Test Item Value Reference Range Interpretation Comments MCV (test code = MCV) 99.9 80.0-98.0 [facility] CenterIybnpyuBDQIZUAPHC4785-56-13 12:36:00 Test Item Value Reference Range Interpretation Comments Lymphocytes # (test code = Lymphocytes 1.6 1.0-5.5 #) [facility] CenterBguhqdfWTPCTGKQHY7137-74-59 12:36:00 Test Item Value Reference Range Interpretation Comments Segs (test code = Segs) 44.5 45.0-75.0 [place] [address]-12-27 12:36:00 Test Item Value Reference Range Interpretation Comments Lymphocytes (test code = Lymphocytes) 40.8 20.0-40.0 [facility] CenterDsnfqvbPMEJRXAYRX1943-17-76 12:36:00 Test Item Value Reference Range Interpretation Comments Monocytes # (test code 0.3 See_Comment [Aut omated message] The = Monocytes #) system which generated this result tra nsmitted reference range : <=0.8. The reference r bharti was not used to int erpret this result as normal/abnormal . [facility] CenterHhfsibtWHSQUGUFGD6279-78-21 12:36:00 Test Item Value Reference Range Interpretation Comments Eosinophils # (test code 0.3 See_Comment [A utomated message] The = Eosinophils #) system whic h generated this result tra nsmitted reference range : <=0.5. The reference r bharti was not used to int erpret this result as normal/abnormal . [facility] CenterBgzvvlcJNKMNYLJMI9857-45-96 12:36:00 Test Item Value Reference Range Interpretation Comments Neutrophils # (test code = Neutrophils 1.8 1.5-8.1 #) [facility] CenterZdcttuvCKFGSPHCXW7880-93-30 12:36:00 Test Item Value Reference Range Interpretation Comments Monocytes (test code = Monocytes) 7.4 2.0-12.0 [facility] CenterXubkckeVNYCTGCROV6613-86-91 12:36:00 Test Item Value Reference Range Interpretation Comments MPV (test code = MPV) 7.4 7.4-10.4 [place] 358828-12-27 12:36:00 Test Item Value Reference Range Interpretation Comments Platelet (test code = Platelet) 138 133-450 [facility] CenterWkxdtbdYIHWTOJLQQ0903-53-65 12:36:00 Test Item Value Reference Range Interpretation Comments RDW (test code = RDW) 15.6 11.5-14.5 [place] 358828-12-27 12:36:00 Test Item Value Reference Range Interpretation Comments WBC (test code = WBC) 4.0 3.7-10.4 [place] 358828-12-27 12:36:00 Test Item Value Reference Range Interpretation Comments MCHC (test code = MCHC) 33.4 32.0-36.0 [facility] CenterRvgulkpVOUWMKWVPK6679-02-17 12:36:00 Test Item Value Reference Range Interpretation Comments Hgb (test code = Hgb) 7.8 12.0-16.0 [place] [address]-12-27 12:36:00 Test Item Value Reference Range Interpretation Comments MCH (test code = MCH) 33.4 pg 27.0-31.0 [facility] CenterDwgkgviRLWKHGNZGJ0648-75-81 12:36:00 Test Item Value Reference Range Interpretation Comments Eosinophils (test code = 6.7 See_Comment [A utomated message] The Eosinophils) system which ge nerated this result tra nsmitted reference range : <=4.0. The reference r bharti was not used to int erpret this result as normal/abnormal . [facility] CenterSgbqnrlDXRQLSXCZV2568-11-67 12:36:00 Test Item Value Reference Range Interpretation Comments RBC (test code = RBC) 2.33 4.20-5.40 [facility] CenterGzdcewbCNYNKVOXZL4032-40-37 12:36:00 Test Item Value Reference Range Interpretation Comments Hct (test code = Hct) 23.2 36.0-48.0 [facility] CenterKpkbjakKATPXHRSOF3769-24-40 12:36:00 Test Item Value Reference Range Interpretation Comments MCV (test code = MCV) 99.9 80.0-98.0 [place] 358828-12-27 12:36:00 Test Item Value Reference Range Interpretation Comments Lymphocytes # (test code = Lymphocytes 1.6 1.0-5.5 #) [facility] CenterZsvzkaySOKHSDIWDX7860-81-93 12:36:00 Test Item Value Reference Range Interpretation Comments Segs (test code = Segs) 44.5 45.0-75.0 [facility] CenterPuacgorWUQCKMQGUC6599-61-24 12:36:00 Test Item Value Reference Range Interpretation Comments Lymphocytes (test code = Lymphocytes) 40.8 20.0-40.0 [facility] CenterVagtfotXYXAZMZJDQ9495-64-20 12:36:00 Test Item Value Reference Range Interpretation Comments Monocytes # (test code 0.3 See_Comment [Aut omated message] The = Monocytes #) system which generated this result tra nsmitted reference range : <=0.8. The reference r bharti was not used to int erpret this result as normal/abnormal . [facility] CenterGchkbmfBTZHGGLWQG4388-44-44 12:36:00 Test Item Value Reference Range Interpretation Comments Eosinophils # (test code 0.3 See_Comment [A utomated message] The = Eosinophils #) system wh h generated this result tra nsmitted reference range : <=0.5. The reference r bharti was not used to int erpret this result as normal/abnormal . [facility] CenterGjavzksXFOKRWBMTF0130-13-04 12:36:00 Test Item Value Reference Range Interpretation Comments Neutrophils # (test code = Neutrophils 1.8 1.5-8.1 #) [facility] CenterJgkhxyzQYMYKVAUQR2540-23-22 12:36:00 Test Item Value Reference Range Interpretation Comments Monocytes (test code = Monocytes) 7.4 2.0-12.0 [facility] CenterKzagvzbJLFDLEXWKU7110-28-77 12:36:00 Test Item Value Reference Range Interpretation Comments Eosinophils (test code = 6.7 See_Comment [A utomated message] The Eosinophils) system which ge nerated this result tra nsmitted reference range : <=4.0. The reference r bharti was not used to int erpret this result as normal/abnormal . [facility] CenterKvusrvgGWVCACVADI2990-44-76 12:36:00 Test Item Value Reference Range Interpretation Comments Basophils (test code = 0.6 See_Comment [Aut omated message] The Basophils) system which ge nerated this result tra nsmitted reference range : <=1.0. The reference r bharti was not used to int erpret this result as normal/abnormal . [facility] CenterLhruusnBISMYQFNBG4159-20-13 12:36:00 Test Item Value Reference Range Interpretation Comments Basophils (test code = 0.6 See_Comment [Aut omated message] The Basophils) system which ge nerated this result tra nsmitted reference range : <=1.0. The reference r bharti was not used to int erpret this result as normal/abnormal . [facility] CenterLlnxdmvSOYGICTDDZ7915-54-51 12:36:00 Test Item Value Reference Range Interpretation Comments MPV (test code = MPV) 7.4 7.4-10.4 [facility] CenterFkxgvaoETEEXZZXZL7135-69-63 12:36:00 Test Item Value Reference Range Interpretation Comments Platelet (test code = Platelet) 138 133-450 [facility] CenterRmgxuqwAVUKSKEUBV8699-02-27 12:36:00 Test Item Value Reference Range Interpretation Comments RDW (test code = RDW) 15.6 11.5-14.5 [facility] CenterJnzexslYUQLCCZABZ1264-37-47 12:36:00 Test Item Value Reference Range Interpretation Comments WBC (test code = WBC) 4.0 3.7-10.4 [facility]TdtgdjjIEIZUPUNQT3795-38-53 12:36:00 Test Item Value Reference Range Interpretation Comments MCHC (test code = MCHC) 33.4 32.0-36.0 [facility] CenterTvfdelgMMUUHKZHGU4960-95-32 12:36:00 Test Item Value Reference Range Interpretation Comments Hgb (test code = Hgb) 7.8 12.0-16.0 [facility] CenterFvpvgheBZKGEWYIMK9457-86-52 12:36:00 Test Item Value Reference Range Interpretation Comments MCH (test code = MCH) 33.4 pg 27.0-31.0 [facility] CenterNaheqyoRCHYQFISIW4941-34-69 12:36:00 Test Item Value Reference Range Interpretation Comments RBC (test code = RBC) 2.33 4.20-5.40 [facility] CenterKulxzdqNVKEUFDBBA7887-93-73 12:36:00 Test Item Value Reference Range Interpretation Comments Hct (test code = Hct) 23.2 36.0-48.0 [facility] CenterHogltktYRUUDYCOQG9536-99-65 12:36:00 Test Item Value Reference Range Interpretation Comments MCV (test code = MCV) 99.9 80.0-98.0 [facility] CenterCwzcqzuIFNIQIGMFN1719-65-94 12:36:00 Test Item Value Reference Range Interpretation Comments Lymphocytes # (test code = Lymphocytes 1.6 1.0-5.5 #) [place] 358828-12-27 12:36:00 Test Item Value Reference Range Interpretation Comments Segs (test code = Segs) 44.5 45.0-75.0 [facility] CenterCgduvxnSUFGNPEDHK9041-65-83 12:36:00 Test Item Value Reference Range Interpretation Comments Lymphocytes (test code = Lymphocytes) 40.8 20.0-40.0 [facility] CenterLoeogxsMXGVRLPQVF4403-98-01 12:36:00 Test Item Value Reference Range Interpretation Comments Monocytes # (test code 0.3 See_Comment [Aut omated message] The = Monocytes #) system which generated this result tra nsmitted reference range : <=0.8. The reference r bharti was not used to int erpret this result as normal/abnormal . [facility] CenterGeuilhcXQERMFBPTZ5181-49-44 12:36:00 Test Item Value Reference Range Interpretation Comments Eosinophils # (test code 0.3 See_Comment [A utomated message] The = Eosinophils #) system wh h generated this result tra nsmitted reference range : <=0.5. The reference r bharti was not used to int erpret this result as normal/abnormal . [facility] CenterZdaclagSENJPJDQKM5230-08-10 12:36:00 Test Item Value Reference Range Interpretation Comments Neutrophils # (test code = Neutrophils 1.8 1.5-8.1 #) [facility] CenterEufolaaLBFNXVLYRZ8153-43-99 12:36:00 Test Item Value Reference Range Interpretation Comments Monocytes (test code = Monocytes) 7.4 2.0-12.0 [facility] CenterNpraqaqWDROQZZFRD5638-16-39 12:36:00 Test Item Value Reference Range Interpretation Comments Eosinophils (test code = 6.7 See_Comment [A utomated message] The Eosinophils) system which ge nerated this result tra nsmitted reference range : <=4.0. The reference r bharti was not used to int erpret this result as normal/abnormal . [facility] CenterNltqcphJVSOWDSBEO9230-22-74 12:36:00 Test Item Value Reference Range Interpretation Comments Basophils (test code = 0.6 See_Comment [Aut omated message] The Basophils) system which ge nerated this result tra nsmitted reference range : <=1.0. The reference r bharti was not used to int erpret this result as normal/abnormal . [facility] CenterXmmdocpDRHKXVNZCN6046-25-65 12:36:00 Test Item Value Reference Range Interpretation Comments MPV (test code = MPV) 7.4 7.4-10.4 [facility] CenterSukjwmvUCRIOQRXXT9829-97-24 12:36:00 Test Item Value Reference Range Interpretation Comments Platelet (test code = Platelet) 138 133-450 [facility] CenterSirhdtdQJCTOGELHX4958-30-93 12:36:00 Test Item Value Reference Range Interpretation Comments RDW (test code = RDW) 15.6 11.5-14.5 [facility]2018-12-26 11:28:00 Test Item Value Reference Range Interpretation Comments Bili Indirect Unable to See_Comment [Automated (test code = Bili Calculate message] T he system Indirect) which generated this result transmitted reference range : <=1.0. The reference range was not used to interpret this result as normal/abnormal . [facility]2018-12-26 11:28:00 Test Item Value Reference Range Interpretation Comments Bili Direct (test code no gt See_Comment [Aut omated message] The = Bili Direct) system which generated this result tra nsmitted reference range : <=0.3. The reference r bharti was not used to int erpret this result as zaida l/abnormal. [facility]2018-12-26 11:28:00 Test Item Value Reference Range Interpretation Comments Bili Total (test code = Bili Total) 0.3 0.2-1.3 [facility]2018-12-26 11:28:00 Test Item Value Reference Range Interpretation Comments AST (test code = AST) 22 See_Comment [Auto mated message] The system which ge nerated this result transmit janine reference range : <=37. The reference range was not used to interpr et this result as zaida l/abnormal. [facility]2018-12-26 11:28:00 Test Item Value Reference Range Interpretation Comments Alk Phos (test code = Alk Phos) 127 39-136 [facility]2018-12-26 11:28:00 Test Item Value Reference Range Interpretation Comments ALT (test code = ALT) 9 See_Comment [Auto mated message] The system which ge nerated this result transmit janine reference range : <=65. The reference range was not used to interpr et this result as zaida l/abnormal. [place] 530528-12-26 11:28:00 Test Item Value Reference Range Interpretation Comments A/G Ratio (test code = A/G Ratio) 0.9 1 0.7-1.6 [facility]2018-12-26 11:28:00 Test Item Value Reference Range Interpretation Comments Albumin Lvl (test code = Albumin Lvl) 2.4 3.5-5.0 [facility]2018-12-26 11:28:00 Test Item Value Reference Range Interpretation Comments Globulin (test code = Globulin) 2.7 2.7-4.2 [facility]2018-12-26 11:28:00 Test Item Value Reference Range Interpretation Comments Total Protein (test code = Total 5.1 6.4-8.4 Protein) [facility]2018-12-26 11:28:00 Test Item Value Reference Range Interpretation Comments eGFR (test code = eGFR) 62 [facility]2018-12-26 11:28:00 Test Item Value Reference Range Interpretation Comments Chloride Lvl (test code = Chloride Lvl) 108 95-109 [facility]2018-12-26 11:28:00 Test Item Value Reference Range Interpretation Comments CO2 (test code = CO2) 30 24-32 [facility]2018-12-26 11:28:00 Test Item Value Reference Range Interpretation Comments Sodium Lvl (test code = Sodium Lvl) 138 135-145 [facility]2018-12-26 11:28:00 Test Item Value Reference Range Interpretation Comments Potassium Lvl (test code = Potassium 4.6 3.5-5.1 Lvl) [facility]2018-12-26 11:28:00 Test Item Value Reference Range Interpretation Comments Creatinine Lvl (test code = Creatinine 0.91 0.50-1.40 Lvl) [facility]2018-12-26 11:28:00 Test Item Value Reference Range Interpretation Comments Calcium Lvl (test code = Calcium Lvl) 9.7 8.5-10.5 [facility]2018-12-26 11:28:00 Test Item Value Reference Range Interpretation Comments AGAP (test code = AGAP) 4.6 10.0-20.0 [facility]2018-12-26 11:28:00 Test Item Value Reference Range Interpretation Comments BUN (test code = BUN) 16 7-22 [facility]2018-12-26 11:28:00 Test Item Value Reference Range Interpretation Comments Glucose Lvl (test code = Glucose Lvl) 85 70-99 [facility]2018-12-26 11:28:00 Test Item Value Reference Range Interpretation Comments Magnesium Lvl (test code = Magnesium 2.0 1.8-2.4 Lvl) [facility] CenterDzaltloEUFEQSDYVT9703-28-46 11:28:00 Test Item Value Reference Range Interpretation Comments MPV (test code = MPV) 8.6 7.4-10.4 [facility] CenterAudjwduKRBRBUVVPQ2843-15-84 11:28:00 Test Item Value Reference Range Interpretation Comments Platelet (test code = Platelet) 121 133-450 [facility] CenterOzawfvlDGZKOQFKBP0686-98-48 11:28:00 Test Item Value Reference Range Interpretation Comments MCHC (test code = MCHC) 33.1 32.0-36.0 [facility] CenterAljemtzJWTZAAIKCR2397-51-20 11:28:00 Test Item Value Reference Range Interpretation Comments RDW (test code = RDW) 15.5 11.5-14.5 [facility] CenterFapdqtmPVCETXFFYG4654-84-08 11:28:00 Test Item Value Reference Range Interpretation Comments MCV (test code = MCV) 99.5 80.0-98.0 [facility] CenterLeovubmJZZCXJYIYL3389-54-57 11:28:00 Test Item Value Reference Range Interpretation Comments MCH (test code = MCH) 32.9 pg 27.0-31.0 [facility] CenterUustkaoYHAUCBROLS0945-85-20 11:28:00 Test Item Value Reference Range Interpretation Comments Hct (test code = Hct) 22.8 36.0-48.0 [facility] CenterAjpksmhVDPMEWYKQX1379-90-18 11:28:00 Test Item Value Reference Range Interpretation Comments Hgb (test code = Hgb) 7.6 12.0-16.0 [facility] CenterXkraptjFLBTLEZYAO1864-47-58 11:28:00 Test Item Value Reference Range Interpretation Comments RBC (test code = RBC) 2.30 4.20-5.40 [facility] CenterBwzkuwwMWIGQYYMYT1065-18-09 11:28:00 Test Item Value Reference Range Interpretation Comments WBC (test code = WBC) 4.9 3.7-10.4 [facility] CenterIlaleeaYSECPYLAZM0649-24-71 11:28:00 Test Item Value Reference Range Interpretation Comments Lymphocytes # (test code = Lymphocytes 1.5 1.0-5.5 #) [facility] CenterIlppljtZJZSTGFWKK7816-95-60 11:28:00 Test Item Value Reference Range Interpretation Comments Eosinophils # (test code 0.2 See_Comment [A utomated message] The = Eosinophils #) system whic h generated this result tra nsmitted reference range : <=0.5. The reference r bharti was not used to int erpret this result as normal/abnormal . [facility] CenterHtnjvikLLKJJUUYPZ4827-01-27 11:28:00 Test Item Value Reference Range Interpretation Comments Monocytes # (test code 0.3 See_Comment [Aut omated message] The = Monocytes #) system which generated this result tra nsmitted reference range : <=0.8. The reference r bharti was not used to int erpret this result as normal/abnormal . [facility] CenterFsynorhJKRVRAJAGK4444-39-03 11:28:00 Test Item Value Reference Range Interpretation Comments Basophils (test code = 0.4 See_Comment [Aut omated message] The Basophils) system which ge nerated this result tra nsmitted reference range : <=1.0. The reference r bharti was not used to int erpret this result as normal/abnormal . [facility] CenterInijxbfOJPMWEXYLX2281-04-34 11:28:00 Test Item Value Reference Range Interpretation Comments Neutrophils # (test code = Neutrophils 2.8 1.5-8.1 #) [facility] CenterXjpxxzqGXXKDFOEFR3170-74-45 11:28:00 Test Item Value Reference Range Interpretation Comments Lymphocytes (test code = Lymphocytes) 31.2 20.0-40.0 [facility] CenterErukwamMHCTNQOPPM6171-70-79 11:28:00 Test Item Value Reference Range Interpretation Comments Monocytes (test code = Monocytes) 6.9 2.0-12.0 [facility] CenterDcfmysxYLFMWECZDT5017-07-66 11:28:00 Test Item Value Reference Range Interpretation Comments Segs (test code = Segs) 58.3 45.0-75.0 [facility] CenterUzttzinVVDGXJJURU2078-00-86 11:28:00 Test Item Value Reference Range Interpretation Comments Eosinophils (test code = 3.2 See_Comment [A utomated message] The Eosinophils) system which ge nerated this result tra nsmitted reference range : <=4.0. The reference r bharti was not used to int erpret this result as normal/abnormal . [place] 530528-12-26 11:28:00 Test Item Value Reference Range Interpretation Comments Bili Indirect Unable to See_Comment [Automated (test code = Bili Calculate message] T he system Indirect) which generated this result transmitted reference range : <=1.0. The reference range was not used to interpret this result as normal/abnormal . [place] 530528-12-26 11:28:00 Test Item Value Reference Range Interpretation Comments Bili Direct (test code no gt See_Comment [Aut omated message] The = Bili Direct) system which generated this result tra nsmitted reference range : <=0.3. The reference r bharti was not used to int erpret this result as zaida l/abnormal. [place] 530528-12-26 11:28:00 Test Item Value Reference Range Interpretation Comments Bili Total (test code = Bili Total) 0.3 0.2-1.3 [place] [address]-12-26 11:28:00 Test Item Value Reference Range Interpretation Comments AST (test code = AST) 22 See_Comment [Auto mated message] The system which ge nerated this result transmit janine reference range : <=37. The reference range was not used to interpr et this result as zaida l/abnormal. [facility]2018-12-26 11:28:00 Test Item Value Reference Range Interpretation Comments Alk Phos (test code = Alk Phos) 127 39-136 [facility]2018-12-26 11:28:00 Test Item Value Reference Range Interpretation Comments ALT (test code = ALT) 9 See_Comment [Auto mated message] The system which ge nerated this result transmit janine reference range : <=65. The reference range was not used to interpr et this result as zaida l/abnormal. [facility]2018-12-26 11:28:00 Test Item Value Reference Range Interpretation Comments A/G Ratio (test code = A/G Ratio) 0.9 1 0.7-1.6 [place] [address]-12-26 11:28:00 Test Item Value Reference Range Interpretation Comments Albumin Lvl (test code = Albumin Lvl) 2.4 3.5-5.0 [facility]2018-12-26 11:28:00 Test Item Value Reference Range Interpretation Comments Globulin (test code = Globulin) 2.7 2.7-4.2 [facility]2018-12-26 11:28:00 Test Item Value Reference Range Interpretation Comments Total Protein (test code = Total 5.1 6.4-8.4 Protein) [facility]2018-12-26 11:28:00 Test Item Value Reference Range Interpretation Comments eGFR (test code = eGFR) 62 [facility]2018-12-26 11:28:00 Test Item Value Reference Range Interpretation Comments Chloride Lvl (test code = Chloride Lvl) 108 95-109 [facility]2018-12-26 11:28:00 Test Item Value Reference Range Interpretation Comments CO2 (test code = CO2) 30 24-32 [facility]2018-12-26 11:28:00 Test Item Value Reference Range Interpretation Comments Sodium Lvl (test code = Sodium Lvl) 138 135-145 [facility]2018-12-26 11:28:00 Test Item Value Reference Range Interpretation Comments Potassium Lvl (test code = Potassium 4.6 3.5-5.1 Lvl) [facility]2018-12-26 11:28:00 Test Item Value Reference Range Interpretation Comments Creatinine Lvl (test code = Creatinine 0.91 0.50-1.40 Lvl) [facility]2018-12-26 11:28:00 Test Item Value Reference Range Interpretation Comments Calcium Lvl (test code = Calcium Lvl) 9.7 8.5-10.5 [facility]2018-12-26 11:28:00 Test Item Value Reference Range Interpretation Comments AGAP (test code = AGAP) 4.6 10.0-20.0 [facility]2018-12-26 11:28:00 Test Item Value Reference Range Interpretation Comments BUN (test code = BUN) 16 7-22 [facility]2018-12-26 11:28:00 Test Item Value Reference Range Interpretation Comments Glucose Lvl (test code = Glucose Lvl) 85 70-99 [facility]2018-12-26 11:28:00 Test Item Value Reference Range Interpretation Comments Magnesium Lvl (test code = Magnesium 2.0 1.8-2.4 Lvl) [facility] CenterMhhvroeZSAPKVODIN0115-39-63 11:28:00 Test Item Value Reference Range Interpretation Comments MPV (test code = MPV) 8.6 7.4-10.4 [facility] CenterKckcifuXSSJVDIGNF4656-08-47 11:28:00 Test Item Value Reference Range Interpretation Comments Platelet (test code = Platelet) 121 133-450 [facility] CenterSoebeyvTGAXUYFKKD2334-95-95 11:28:00 Test Item Value Reference Range Interpretation Comments MCHC (test code = MCHC) 33.1 32.0-36.0 [facility] CenterMqgxfksMTKZWSDVYY1763-17-19 11:28:00 Test Item Value Reference Range Interpretation Comments RDW (test code = RDW) 15.5 11.5-14.5 [facility] CenterCijgxsbYZJAKNEEJE2509-94-09 11:28:00 Test Item Value Reference Range Interpretation Comments MCV (test code = MCV) 99.5 80.0-98.0 [facility] CenterMnkybolKXGNCAGTGK5315-30-57 11:28:00 Test Item Value Reference Range Interpretation Comments MCH (test code = MCH) 32.9 pg 27.0-31.0 [facility] CenterNmtugcuOTRLLXAIXU8502-03-76 11:28:00 Test Item Value Reference Range Interpretation Comments Hct (test code = Hct) 22.8 36.0-48.0 [facility] CenterBhbrxwcVTKCXQVPYO8735-10-87 11:28:00 Test Item Value Reference Range Interpretation Comments Hgb (test code = Hgb) 7.6 12.0-16.0 [place] 358828-12-26 11:28:00 Test Item Value Reference Range Interpretation Comments RBC (test code = RBC) 2.30 4.20-5.40 [place] [address]-12-26 11:28:00 Test Item Value Reference Range Interpretation Comments WBC (test code = WBC) 4.9 3.7-10.4 [place] 358828-12-26 11:28:00 Test Item Value Reference Range Interpretation Comments Lymphocytes # (test code = Lymphocytes 1.5 1.0-5.5 #) [facility] CenterYwsjxfaKXQMDGRWJN8250-59-30 11:28:00 Test Item Value Reference Range Interpretation Comments Eosinophils # (test code 0.2 See_Comment [A utomated message] The = Eosinophils #) system whic h generated this result tra nsmitted reference range : <=0.5. The reference r bharti was not used to int erpret this result as normal/abnormal . [facility] CenterGvvzvgwJVYYWTZADG6533-34-07 11:28:00 Test Item Value Reference Range Interpretation Comments Monocytes # (test code 0.3 See_Comment [Aut omated message] The = Monocytes #) system which generated this result tra nsmitted reference range : <=0.8. The reference r bharti was not used to int erpret this result as normal/abnormal . [facility] CenterNkjqidgJDJAACKFBU9519-21-31 11:28:00 Test Item Value Reference Range Interpretation Comments Basophils (test code = 0.4 See_Comment [Aut omated message] The Basophils) system which ge nerated this result tra nsmitted reference range : <=1.0. The reference r bharti was not used to int erpret this result as normal/abnormal . [facility] CenterIomfkvqQGCCLAWJMB1096-48-93 11:28:00 Test Item Value Reference Range Interpretation Comments Neutrophils # (test code = Neutrophils 2.8 1.5-8.1 #) [facility] CenterTvftkwpITPPUFALTR3409-75-57 11:28:00 Test Item Value Reference Range Interpretation Comments Lymphocytes (test code = Lymphocytes) 31.2 20.0-40.0 [facility] CenterGdvhfcsRKDDZBSIGA0497-33-31 11:28:00 Test Item Value Reference Range Interpretation Comments Monocytes (test code = Monocytes) 6.9 2.0-12.0 [facility] CenterUtwxrakMFIKDKLGFK4989-32-33 11:28:00 Test Item Value Reference Range Interpretation Comments Segs (test code = Segs) 58.3 45.0-75.0 [facility] CenterSffqcjzXMRFXBLELH6542-89-81 11:28:00 Test Item Value Reference Range Interpretation Comments Eosinophils (test code = 3.2 See_Comment [A utomated message] The Eosinophils) system which ge nerated this result tra nsmitted reference range : <=4.0. The reference r bharti was not used to int erpret this result as normal/abnormal . [facility]2018-12-26 11:28:00 Test Item Value Reference Range Interpretation Comments Bili Indirect Unable to See_Comment [Automated (test code = Bili Calculate message] T he system Indirect) which generated this result transmitted reference range : <=1.0. The reference range was not used to interpret this result as normal/abnormal . [facility]2018-12-26 11:28:00 Test Item Value Reference Range Interpretation Comments Bili Direct (test code no gt See_Comment [Aut omated message] The = Bili Direct) system which generated this result tra nsmitted reference range : <=0.3. The reference r bharti was not used to int erpret this result as zaida l/abnormal. [facility]2018-12-26 11:28:00 Test Item Value Reference Range Interpretation Comments Bili Total (test code = Bili Total) 0.3 0.2-1.3 [facility]2018-12-26 11:28:00 Test Item Value Reference Range Interpretation Comments AST (test code = AST) 22 See_Comment [Auto mated message] The system which ge nerated this result transmit janine reference range : <=37. The reference range was not used to interpr et this result as zaida l/abnormal. [facility]2018-12-26 11:28:00 Test Item Value Reference Range Interpretation Comments Alk Phos (test code = Alk Phos) 127 39-136 [facility]2018-12-26 11:28:00 Test Item Value Reference Range Interpretation Comments ALT (test code = ALT) 9 See_Comment [Auto mated message] The system which ge nerated this result transmit janine reference range : <=65. The reference range was not used to interpr et this result as zaida l/abnormal. [facility]2018-12-26 11:28:00 Test Item Value Reference Range Interpretation Comments A/G Ratio (test code = A/G Ratio) 0.9 1 0.7-1.6 [facility]2018-12-26 11:28:00 Test Item Value Reference Range Interpretation Comments Albumin Lvl (test code = Albumin Lvl) 2.4 3.5-5.0 [facility]2018-12-26 11:28:00 Test Item Value Reference Range Interpretation Comments Globulin (test code = Globulin) 2.7 2.7-4.2 [place] [address]-12-26 11:28:00 Test Item Value Reference Range Interpretation Comments Total Protein (test code = Total 5.1 6.4-8.4 Protein) [facility]2018-12-26 11:28:00 Test Item Value Reference Range Interpretation Comments eGFR (test code = eGFR) 62 [facility]2018-12-26 11:28:00 Test Item Value Reference Range Interpretation Comments Chloride Lvl (test code = Chloride Lvl) 108 95-109 [facility]2018-12-26 11:28:00 Test Item Value Reference Range Interpretation Comments CO2 (test code = CO2) 30 24-32 [facility]2018-12-26 11:28:00 Test Item Value Reference Range Interpretation Comments Sodium Lvl (test code = Sodium Lvl) 138 135-145 [facility]2018-12-26 11:28:00 Test Item Value Reference Range Interpretation Comments Potassium Lvl (test code = Potassium 4.6 3.5-5.1 Lvl) [facility]2018-12-26 11:28:00 Test Item Value Reference Range Interpretation Comments Creatinine Lvl (test code = Creatinine 0.91 0.50-1.40 Lvl) [facility]2018-12-26 11:28:00 Test Item Value Reference Range Interpretation Comments Calcium Lvl (test code = Calcium Lvl) 9.7 8.5-10.5 [facility]2018-12-26 11:28:00 Test Item Value Reference Range Interpretation Comments AGAP (test code = AGAP) 4.6 10.0-20.0 [facility]2018-12-26 11:28:00 Test Item Value Reference Range Interpretation Comments BUN (test code = BUN) 16 7-22 [facility]2018-12-26 11:28:00 Test Item Value Reference Range Interpretation Comments Glucose Lvl (test code = Glucose Lvl) 85 70-99 [facility]2018-12-26 11:28:00 Test Item Value Reference Range Interpretation Comments Magnesium Lvl (test code = Magnesium 2.0 1.8-2.4 Lvl) [facility] [facility]nbaz[facility]MZZJWEXPZA2799-38-72 11:28:00 Test Item Value Reference Range Interpretation Comments MPV (test code = MPV) 8.6 7.4-10.4 [facility] CenterIhvvcxnHYGFSGDSFX0711-90-88 11:28:00 Test Item Value Reference Range Interpretation Comments Platelet (test code = Platelet) 121 133-450 [facility] CenterVupfnexEJDHZJEPJA1029-59-55 11:28:00 Test Item Value Reference Range Interpretation Comments MCHC (test code = MCHC) 33.1 32.0-36.0 [facility] CenterSilqtikDDGSEJLNNL8595-98-74 11:28:00 Test Item Value Reference Range Interpretation Comments RDW (test code = RDW) 15.5 11.5-14.5 [facility] CenterPwfsronDGABDVVDSN1155-28-26 11:28:00 Test Item Value Reference Range Interpretation Comments MCV (test code = MCV) 99.5 80.0-98.0 [facility] CenterFsdogphMLCITMYVCQ8456-91-58 11:28:00 Test Item Value Reference Range Interpretation Comments MCH (test code = MCH) 32.9 pg 27.0-31.0 [facility] CenterTaxxtdzLYIBRRNLLI9079-05-90 11:28:00 Test Item Value Reference Range Interpretation Comments Hct (test code = Hct) 22.8 36.0-48.0 [facility] CenterBjgjutuJWLFIQPWQV1582-33-96 11:28:00 Test Item Value Reference Range Interpretation Comments Hgb (test code = Hgb) 7.6 12.0-16.0 [facility] CenterLjacnmqJTWYEZZLNE5521-84-72 11:28:00 Test Item Value Reference Range Interpretation Comments RBC (test code = RBC) 2.30 4.20-5.40 [facility] CenterYyogrkeDQUXMHMAGB5040-79-09 11:28:00 Test Item Value Reference Range Interpretation Comments WBC (test code = WBC) 4.9 3.7-10.4 [facility] CenterKmuporjTMOGETBDPE7540-90-34 11:28:00 Test Item Value Reference Range Interpretation Comments Lymphocytes # (test code = Lymphocytes 1.5 1.0-5.5 #) [facility] CenterLohyrebYFWXRIKJLW4242-92-70 11:28:00 Test Item Value Reference Range Interpretation Comments Eosinophils # (test code 0.2 See_Comment [A utomated message] The = Eosinophils #) system whic h generated this result tra nsmitted reference range : <=0.5. The reference r bharti was not used to int erpret this result as normal/abnormal . [place] 358828-12-26 11:28:00 Test Item Value Reference Range Interpretation Comments Monocytes # (test code 0.3 See_Comment [Aut omated message] The = Monocytes #) system which generated this result tra nsmitted reference range : <=0.8. The reference r bharti was not used to int erpret this result as normal/abnormal . [facility] CenterQzxonqcVSERTPOGAT3656-59-67 11:28:00 Test Item Value Reference Range Interpretation Comments Basophils (test code = 0.4 See_Comment [Aut omated message] The Basophils) system which ge nerated this result tra nsmitted reference range : <=1.0. The reference r bharti was not used to int erpret this result as normal/abnormal . [facility] CenterIdczzgsXNNRYMWDDG5661-11-79 11:28:00 Test Item Value Reference Range Interpretation Comments Neutrophils # (test code = Neutrophils 2.8 1.5-8.1 #) [facility] CenterKkhlwqtLYDADFIJHO5110-83-11 11:28:00 Test Item Value Reference Range Interpretation Comments Lymphocytes (test code = Lymphocytes) 31.2 20.0-40.0 [facility] CenterOpyouxdGAYHQDMHBO1912-30-44 11:28:00 Test Item Value Reference Range Interpretation Comments Monocytes (test code = Monocytes) 6.9 2.0-12.0 [facility] CenterRxhvuveHODGTERHZK7150-94-47 11:28:00 Test Item Value Reference Range Interpretation Comments Segs (test code = Segs) 58.3 45.0-75.0 [facility] CenterHjzkujpVMZNNLJGXS6803-37-33 11:28:00 Test Item Value Reference Range Interpretation Comments Eosinophils (test code = 3.2 See_Comment [A utomated message] The Eosinophils) system which ge nerated this result tra nsmitted reference range : <=4.0. The reference r hbarti was not used to int erpret this result as normal/abnormal . [facility] VHHWD8755-18-01 11:28:00 Test Item Value Reference Range Interpretation Comments Bili Indirect Unable to See_Comment [Automated (test code = Bili Calculate message] T he system Indirect) which generated this result transmitted reference range : <=1.0. The reference range was not used to interpret this result as normal/abnormal . [facility] RGFDO8622-40-06 11:28:00 Test Item Value Reference Range Interpretation Comments Bili Direct (test code no gt See_Comment [Aut omated message] The = Bili Direct) system which generated this result tra nsmitted reference range : <=0.3. The reference r bharti was not used to int erpret this result as zaida l/abnormal. [facility]2018-12-26 11:28:00 Test Item Value Reference Range Interpretation Comments Bili Total (test code = Bili Total) 0.3 0.2-1.3 [facility]2018-12-26 11:28:00 Test Item Value Reference Range Interpretation Comments AST (test code = AST) 22 See_Comment [Auto mated message] The system which ge nerated this result transmit janine reference range : <=37. The reference range was not used to interpr et this result as zaida l/abnormal. [facility]2018-12-26 11:28:00 Test Item Value Reference Range Interpretation Comments Alk Phos (test code = Alk Phos) 127 39-136 [facility]2018-12-26 11:28:00 Test Item Value Reference Range Interpretation Comments ALT (test code = ALT) 9 See_Comment [Auto mated message] The system which ge nerated this result transmit janine reference range : <=65. The reference range was not used to interpr et this result as zaida l/abnormal. [facility]2018-12-26 11:28:00 Test Item Value Reference Range Interpretation Comments A/G Ratio (test code = A/G Ratio) 0.9 1 0.7-1.6 [facility]2018-12-26 11:28:00 Test Item Value Reference Range Interpretation Comments Albumin Lvl (test code = Albumin Lvl) 2.4 3.5-5.0 [facility]2018-12-26 11:28:00 Test Item Value Reference Range Interpretation Comments Globulin (test code = Globulin) 2.7 2.7-4.2 [facility]2018-12-26 11:28:00 Test Item Value Reference Range Interpretation Comments Total Protein (test code = Total 5.1 6.4-8.4 Protein) [facility]2018-12-26 11:28:00 Test Item Value Reference Range Interpretation Comments eGFR (test code = eGFR) 62 [facility]2018-12-26 11:28:00 Test Item Value Reference Range Interpretation Comments Chloride Lvl (test code = Chloride Lvl) 108 95-109 [facility]2018-12-26 11:28:00 Test Item Value Reference Range Interpretation Comments CO2 (test code = CO2) 30 24-32 [facility]2018-12-26 11:28:00 Test Item Value Reference Range Interpretation Comments Sodium Lvl (test code = Sodium Lvl) 138 135-145 [facility]2018-12-26 11:28:00 Test Item Value Reference Range Interpretation Comments Potassium Lvl (test code = Potassium 4.6 3.5-5.1 Lvl) [facility]2018-12-26 11:28:00 Test Item Value Reference Range Interpretation Comments Creatinine Lvl (test code = Creatinine 0.91 0.50-1.40 Lvl) [facility]2018-12-26 11:28:00 Test Item Value Reference Range Interpretation Comments Calcium Lvl (test code = Calcium Lvl) 9.7 8.5-10.5 [facility]2018-12-26 11:28:00 Test Item Value Reference Range Interpretation Comments AGAP (test code = AGAP) 4.6 10.0-20.0 [facility]2018-12-26 11:28:00 Test Item Value Reference Range Interpretation Comments BUN (test code = BUN) 16 7-22 [facility]2018-12-26 11:28:00 Test Item Value Reference Range Interpretation Comments Glucose Lvl (test code = Glucose Lvl) 85 70-99 [facility]2018-12-26 11:28:00 Test Item Value Reference Range Interpretation Comments Magnesium Lvl (test code = Magnesium 2.0 1.8-2.4 Lvl) [facility] CenterZuhlzrvUPEFYMCSND4943-61-99 11:28:00 Test Item Value Reference Range Interpretation Comments MPV (test code = MPV) 8.6 7.4-10.4 [facility] CenterKfrgfsqOLRTXEIACH7597-32-37 11:28:00 Test Item Value Reference Range Interpretation Comments Platelet (test code = Platelet) 121 133-450 [facility] CenterWujivywLLGOREFAHC7176-90-42 11:28:00 Test Item Value Reference Range Interpretation Comments MCHC (test code = MCHC) 33.1 32.0-36.0 [facility] CenterOhwfqgaLFDGBLXUMT8032-29-77 11:28:00 Test Item Value Reference Range Interpretation Comments RDW (test code = RDW) 15.5 11.5-14.5 [facility] CenterDivugpyBUCJXEAKHB1148-26-70 11:28:00 Test Item Value Reference Range Interpretation Comments MCV (test code = MCV) 99.5 80.0-98.0 [facility] CenterVitagicTRYXEIPJZM1998-92-23 11:28:00 Test Item Value Reference Range Interpretation Comments MCH (test code = MCH) 32.9 pg 27.0-31.0 [facility] CenterFcrehreTIHDCFDHCV7786-20-59 11:28:00 Test Item Value Reference Range Interpretation Comments Hct (test code = Hct) 22.8 36.0-48.0 [facility] CenterRaduxmmYGVULZMCDY0918-45-61 11:28:00 Test Item Value Reference Range Interpretation Comments Hgb (test code = Hgb) 7.6 12.0-16.0 [facility] CenterRqdbrchOFQKBYCAFZ4601-72-02 11:28:00 Test Item Value Reference Range Interpretation Comments RBC (test code = RBC) 2.30 4.20-5.40 [facility] CenterPmzhafoQEMRPMPBTA6735-47-52 11:28:00 Test Item Value Reference Range Interpretation Comments WBC (test code = WBC) 4.9 3.7-10.4 [facility] CenterFimehfaRAZLJUMFRD5456-14-57 11:28:00 Test Item Value Reference Range Interpretation Comments Lymphocytes # (test code = Lymphocytes 1.5 1.0-5.5 #) [facility] CenterXmczlbvKLJFIOOEHW5163-08-21 11:28:00 Test Item Value Reference Range Interpretation Comments Eosinophils # (test code 0.2 See_Comment [A utomated message] The = Eosinophils #) system whic h generated this result tra nsmitted reference range : <=0.5. The reference r bharti was not used to int erpret this result as normal/abnormal . [facility] CenterKlouxcvBOYKSTGXST5503-09-20 11:28:00 Test Item Value Reference Range Interpretation Comments Monocytes # (test code 0.3 See_Comment [Aut omated message] The = Monocytes #) system which generated this result tra nsmitted reference range : <=0.8. The reference r bharti was not used to int erpret this result as normal/abnormal . [facility] CenterQqragtmUNHOKCUWVB5451-12-42 11:28:00 Test Item Value Reference Range Interpretation Comments Basophils (test code = 0.4 See_Comment [Aut omated message] The Basophils) system which ge nerated this result tra nsmitted reference range : <=1.0. The reference r bharti was not used to int erpret this result as normal/abnormal . [facility] CenterLhvkeohGKFVRSZEIV5778-63-47 11:28:00 Test Item Value Reference Range Interpretation Comments Neutrophils # (test code = Neutrophils 2.8 1.5-8.1 #) [facility] CenterNlohyeaQEHHZLSJML7765-22-54 11:28:00 Test Item Value Reference Range Interpretation Comments Lymphocytes (test code = Lymphocytes) 31.2 20.0-40.0 [facility] CenterNhodkjyADJXKFNUVO8763-37-61 11:28:00 Test Item Value Reference Range Interpretation Comments Monocytes (test code = Monocytes) 6.9 2.0-12.0 [facility] CenterDtezizkBVOYJJWBPB9382-99-99 11:28:00 Test Item Value Reference Range Interpretation Comments Segs (test code = Segs) 58.3 45.0-75.0 [facility] CenterZhtyftcFHMHOQQEOA5929-09-73 11:28:00 Test Item Value Reference Range Interpretation Comments Eosinophils (test code = 3.2 See_Comment [A utomated message] The Eosinophils) system which ge nerated this result tra nsmitted reference range : <=4.0. The reference r bharti was not used to int erpret this result as normal/abnormal . [facility]2018-12-25 11:48:00 Test Item Value Reference Range Interpretation Comments Magnesium Lvl (test code = Magnesium 2.2 1.8-2.4 Lvl) [facility]WnuoxbaPDEXJMKGWMGB8313-54-66 11:48:00 Test Item Value Reference Range Interpretation Comments Potassium Lvl (test code = Potassium 5.4 3.5-5.1 Lvl) [facility]aWxgubtqYWIWVEABXYXA2044-99-40 11:48:00 Test Item Value Reference Range Interpretation Comments Chloride Lvl (test code = Chloride Lvl) 111 95-109 [facility]aTjnztdxLHFCXBBUOQEA4018-85-14 11:48:00 Test Item Value Reference Range Interpretation Comments CO2 (test code = CO2) 27 24-32 [facility]aWlauplxLYGCMIBCMAKN5501-38-32 11:48:00 Test Item Value Reference Range Interpretation Comments Calcium Lvl (test code = Calcium Lvl) 9.2 8.5-10.5 [facility]aAwxxfpcZORTJMQKRHIT1559-54-19 11:48:00 Test Item Value Reference Range Interpretation Comments AGAP (test code = AGAP) 9.4 10.0-20.0 [facility]aThwpegvIJKRPCGGTDRT1281-40-77 11:48:00 Test Item Value Reference Range Interpretation Comments eGFR (test code = eGFR) 73 [facility]aByxgwdiLBULLNFUTEMO3832-54-68 11:48:00 Test Item Value Reference Range Interpretation Comments Creatinine Lvl (test code = Creatinine 0.80 0.50-1.40 Lvl) [facility]aDlbvzdgZJECVLVNNBYT0877-61-98 11:48:00 Test Item Value Reference Range Interpretation Comments Glucose Lvl (test code = Glucose Lvl) 133 70-99 [facility]penaDpenvzdJYPXWESBVRVD0044-80-23 11:48:00 Test Item Value Reference Range Interpretation Comments BUN (test code = BUN) 14 7-22 [facility]aGgpxfbdPBDTTERYZUJA3951-73-34 11:48:00 Test Item Value Reference Range Interpretation Comments Sodium Lvl (test code = Sodium Lvl) 142 135-145 [facility]2018-12-25 11:48:00 Test Item Value Reference Range Interpretation Comments Magnesium Lvl (test code = Magnesium 2.2 1.8-2.4 Lvl) [facility]aCkfzuqsCDCOCHLIWROX5863-35-23 11:48:00 Test Item Value Reference Range Interpretation Comments Potassium Lvl (test code = Potassium 5.4 3.5-5.1 Lvl) [facility]aPvdcqpeNMXVSDSRHMSH7515-87-40 11:48:00 Test Item Value Reference Range Interpretation Comments Chloride Lvl (test code = Chloride Lvl) 111 95-109 [facility]aWaosbexUWUUSJYEVLFV4827-35-94 11:48:00 Test Item Value Reference Range Interpretation Comments CO2 (test code = CO2) [facility]aJtzrjwsIDXIUYSTIPYP6306-81-49 11:48:00 Test Item Value Reference Range Interpretation Comments Calcium Lvl (test code = Calcium Lvl) 9.2 8.5-10.5 [facility]aLllhgkuIHNTQHYXXPUU2259-43-42 11:48:00 Test Item Value Reference Range Interpretation Comments AGAP (test code = AGAP) 9.4 10.0-20.0 [facility]aOifbkggTUNZPILLLSUP2993-71-52 11:48:00 Test Item Value Reference Range Interpretation Comments eGFR (test code = eGFR) 73 [facility]aOjmeoutUPKOIUNSSCWW1114-23-71 11:48:00 Test Item Value Reference Range Interpretation Comments Creatinine Lvl (test code = Creatinine 0.80 0.50-1.40 Lvl) [facility]aQciuejjFIPYXDZWTOAE6351-56-57 11:48:00 Test Item Value Reference Range Interpretation Comments Glucose Lvl (test code = Glucose Lvl) 133 70-99 [facility]aQhnhwpxMCIZUQTGTHTT7781-77-70 11:48:00 Test Item Value Reference Range Interpretation Comments BUN (test code = BUN) 14 7-22 [facility]aQqbdhwqVPTTXRTVXSSM6684-92-58 11:48:00 Test Item Value Reference Range Interpretation Comments Sodium Lvl (test code = Sodium Lvl) 142 135-145 [facility]CHEM SMOWV4137-09-10 11:48:00 Test Item Value Reference Range Interpretation Comments Magnesium Lvl (test code = Magnesium 2.2 1.8-2.4 Lvl) [facility]aFqnngdlJXXXNNGKOXVK0424-91-82 11:48:00 Test Item Value Reference Range Interpretation Comments Potassium Lvl (test code = Potassium 5.4 3.5-5.1 Lvl) [facility]aZqmbwkiFOHICZSRPTGB2010-71-67 11:48:00 Test Item Value Reference Range Interpretation Comments Chloride Lvl (test code = Chloride Lvl) 111 95-109 [facility] AlpenaIuclpojBLHJARHUEMAM7925-35-40 11:48:00 Test Item Value Reference Range Interpretation Comments CO2 (test code = CO2) 27 24-32 [facility]penaTxyqdisFNVWFIFPYSQG8609-35-80 11:48:00 Test Item Value Reference Range Interpretation Comments Calcium Lvl (test code = Calcium Lvl) 9.2 8.5-10.5 [facility] AlpenaIoufwawJVFPOMWIDZXY6302-16-71 11:48:00 Test Item Value Reference Range Interpretation Comments AGAP (test code = AGAP) 9.4 10.0-20.0 [facility]penaFbourhwXUCWDOGRGYEC8672-79-46 11:48:00 Test Item Value Reference Range Interpretation Comments eGFR (test code = eGFR) 73 [facility]penaYtceciwNGCFZMPDFAMZ9039-54-58 11:48:00 Test Item Value Reference Range Interpretation Comments Creatinine Lvl (test code = Creatinine 0.80 0.50-1.40 Lvl) [facility]aStlipddXEIQORRBRSKG6326-56-32 11:48:00 Test Item Value Reference Range Interpretation Comments Glucose Lvl (test code = Glucose Lvl) 133 70-99 [facility]penaQkxibetFMPCOROVOOJC6411-20-46 11:48:00 Test Item Value Reference Range Interpretation Comments BUN (test code = BUN) 14 7-22 [facility]penaTciwunzCHZXZAVEDHKL0553-21-16 11:48:00 Test Item Value Reference Range Interpretation Comments Sodium Lvl (test code = Sodium Lvl) 142 135-145 [facility]2018-12-25 11:48:00 Test Item Value Reference Range Interpretation Comments Magnesium Lvl (test code = Magnesium 2.2 1.8-2.4 Lvl) [facility]aQjnpjrlBCSUPKXIHGZM2485-20-42 11:48:00 Test Item Value Reference Range Interpretation Comments Potassium Lvl (test code = Potassium 5.4 3.5-5.1 Lvl) [facility]aQrgbckdSXOJBSLBZHHL8693-41-87 11:48:00 Test Item Value Reference Range Interpretation Comments Chloride Lvl (test code = Chloride Lvl) 111 95-109 [facility]penaXtzqhcmXKIAHWPQDOKU5494-11-27 11:48:00 Test Item Value Reference Range Interpretation Comments CO2 (test code = CO2) 27 24-32 [facility] AlpenaIilhwktMNKGLAXVGJSA5771-80-99 11:48:00 Test Item Value Reference Range Interpretation Comments Calcium Lvl (test code = Calcium Lvl) 9.2 8.5-10.5 [facility] AlpenaGuirnpfHLRAMTORTTVL2257-72-57 11:48:00 Test Item Value Reference Range Interpretation Comments AGAP (test code = AGAP) 9.4 10.0-20.0 [facility] AlpenaFohevooKATKATZUGSEY4406-33-43 11:48:00 Test Item Value Reference Range Interpretation Comments eGFR (test code = eGFR) 73 [facility] AlpenaTtfsyfxDHBAKIZBROWJ2197-23-19 11:48:00 Test Item Value Reference Range Interpretation Comments Creatinine Lvl (test code = Creatinine 0.80 0.50-1.40 Lvl) [facility]penaDhzdsbrWNTDELHXUHUS6057-33-34 11:48:00 Test Item Value Reference Range Interpretation Comments Glucose Lvl (test code = Glucose Lvl) 133 70-99 [facility] AlpenaDhaghtoOERKKUJMFDUW4977-28-55 11:48:00 Test Item Value Reference Range Interpretation Comments BUN (test code = BUN) 14 7-22 [facility]penaVqcqklyJIIQFUSMANWH6035-23-21 11:48:00 Test Item Value Reference Range Interpretation Comments Sodium Lvl (test code = Sodium Lvl) 142 135-145 [facility]2018-12-25 08:48:00 Test Item Value Reference Range Interpretation Comments Magnesium Lvl (test code = Magnesium 2.2 1.8-2.4 Lvl) [facility] CenterWkjrosoNGAAFLLZYD5869-87-69 08:48:00 Test Item Value Reference Range Interpretation Comments Hgb (test code = Hgb) 8.1 12.0-16.0 [facility] CenterNqmdzzjVHOUDOQGTW3344-04-58 08:48:00 Test Item Value Reference Range Interpretation Comments Hct (test code = Hct) 24.1 36.0-48.0 [facility] CenterXpgvzebTRJXBXKPRT6945-85-31 08:48:00 Test Item Value Reference Range Interpretation Comments RBC (test code = RBC) 2.45 4.20-5.40 [facility] CenterGdmdalgPNIZOTBFUA5316-05-46 08:48:00 Test Item Value Reference Range Interpretation Comments WBC (test code = WBC) 3.2 3.7-10.4 [facility] CenterLaldwqyQTCYEFOBQM8799-88-68 08:48:00 Test Item Value Reference Range Interpretation Comments RDW (test code = RDW) 15.9 11.5-14.5 [facility] CenterRvnnolaXZUPIJAVJL6340-44-46 08:48:00 Test Item Value Reference Range Interpretation Comments Platelet (test code = Platelet) 128 133-450 [facility] CenterSqxqlueZJMYUCADHG8993-93-76 08:48:00 Test Item Value Reference Range Interpretation Comments MCHC (test code = MCHC) 33.5 32.0-36.0 [facility] CenterNyqpwqiASTFBFPEKL9943-31-95 08:48:00 Test Item Value Reference Range Interpretation Comments MCV (test code = MCV) 98.3 80.0-98.0 [facility] CenterEselqpwZEAVEWPFJY5027-78-46 08:48:00 Test Item Value Reference Range Interpretation Comments MCH (test code = MCH) 33.0 pg 27.0-31.0 [facility] CenterVvgjitgFGLWWURCKF2966-45-20 08:48:00 Test Item Value Reference Range Interpretation Comments MPV (test code = MPV) 8.5 7.4-10.4 [facility] CenterIitzvmhSKWZXRMGHI1676-17-14 08:48:00 Test Item Value Reference Range Interpretation Comments Monocytes # (test code 0.1 See_Comment [Aut omated message] The = Monocytes #) system which generated this result tra nsmitted reference range : <=0.8. The reference r bharti was not used to int erpret this result as normal/abnormal . [facility] CenterAplvpgpXMSKVPMCDV9288-00-08 08:48:00 Test Item Value Reference Range Interpretation Comments Segs (test code = Segs) 84.0 45.0-75.0 [facility] CenterEqarqvqHVLAXSXXIN1583-63-96 08:48:00 Test Item Value Reference Range Interpretation Comments Monocytes (test code = Monocytes) 3.2 2.0-12.0 [facility] CenterEsflsjdNQKVAEABWW3653-02-96 08:48:00 Test Item Value Reference Range Interpretation Comments Neutrophils # (test code = Neutrophils 2.7 1.5-8.1 #) [facility] CenterWxczbgwJXHJRXJEYL6464-10-78 08:48:00 Test Item Value Reference Range Interpretation Comments Lymphocytes # (test code = Lymphocytes 0.4 1.0-5.5 #) [facility] CenterZvqgllrQHQLQOIUNM6948-75-94 08:48:00 Test Item Value Reference Range Interpretation Comments Basophils (test code = 0.2 See_Comment [Aut omated message] The Basophils) system which ge nerated this result tra nsmitted reference range : <=1.0. The reference r bharti was not used to int erpret this result as normal/abnormal . [facility] CenterFqhjevjUYQPWZQAHJ4758-28-71 08:48:00 Test Item Value Reference Range Interpretation Comments Lymphocytes (test code = Lymphocytes) 12.6 20.0-40.0 [facility]2018-12-25 08:48:00 Test Item Value Reference Range Interpretation Comments Magnesium Lvl (test code = Magnesium 2.2 1.8-2.4 Lvl) [facility] CenterWwupfzrXXXIIZAPRP5339-79-73 08:48:00 Test Item Value Reference Range Interpretation Comments Hgb (test code = Hgb) 8.1 12.0-16.0 [facility] CenterAkvkqadABDFPNDBHD8883-07-01 08:48:00 Test Item Value Reference Range Interpretation Comments Hct (test code = Hct) 24.1 36.0-48.0 [facility] CenterGnrlpogGBAQYAFNXZ6706-91-70 08:48:00 Test Item Value Reference Range Interpretation Comments RBC (test code = RBC) 2.45 4.20-5.40 [facility] CenterBocgyfcUJAHUDLAVP3521-15-36 08:48:00 Test Item Value Reference Range Interpretation Comments WBC (test code = WBC) 3.2 3.7-10.4 [place] 358828-12-25 08:48:00 Test Item Value Reference Range Interpretation Comments RDW (test code = RDW) 15.9 11.5-14.5 [facility] CenterOebdlfeNXLQCLECPM6134-02-12 08:48:00 Test Item Value Reference Range Interpretation Comments Platelet (test code = Platelet) 128 133-450 [facility] CenterBwfsqqbOHHLVPBQQV7395-46-36 08:48:00 Test Item Value Reference Range Interpretation Comments MCHC (test code = MCHC) 33.5 32.0-36.0 [facility] CenterUubmpenWLULLVXMKG4824-51-02 08:48:00 Test Item Value Reference Range Interpretation Comments MCV (test code = MCV) 98.3 80.0-98.0 [facility] CenterPubuhwdUPDMEGVRPS8564-66-27 08:48:00 Test Item Value Reference Range Interpretation Comments MCH (test code = MCH) 33.0 pg 27.0-31.0 [facility] CenterCcgeukjCWFHYQHZVD9568-29-98 08:48:00 Test Item Value Reference Range Interpretation Comments MPV (test code = MPV) 8.5 7.4-10.4 [facility] CenterKrurgneLMMOVHVKUA8846-73-45 08:48:00 Test Item Value Reference Range Interpretation Comments Monocytes # (test code 0.1 See_Comment [Aut omated message] The = Monocytes #) system which generated this result tra nsmitted reference range : <=0.8. The reference r bharti was not used to int erpret this result as normal/abnormal . [facility] CenterDykspqjLLPIKBOTMJ9155-40-89 08:48:00 Test Item Value Reference Range Interpretation Comments Segs (test code = Segs) 84.0 45.0-75.0 [facility] CenterAgihbfyURGNSLQITR9148-26-05 08:48:00 Test Item Value Reference Range Interpretation Comments Monocytes (test code = Monocytes) 3.2 2.0-12.0 [facility] CenterNenmeqjJNRFSWRZQB9871-62-56 08:48:00 Test Item Value Reference Range Interpretation Comments Neutrophils # (test code = Neutrophils 2.7 1.5-8.1 #) [facility] CenterQoohpoiAPXKJDQXLM5984-37-57 08:48:00 Test Item Value Reference Range Interpretation Comments Lymphocytes # (test code = Lymphocytes 0.4 1.0-5.5 #) [facility] CenterRfazxdeCBLIHKLHRE0930-33-14 08:48:00 Test Item Value Reference Range Interpretation Comments Basophils (test code = 0.2 See_Comment [Aut omated message] The Basophils) system which ge nerated this result tra nsmitted reference range : <=1.0. The reference r bharti was not used to int erpret this result as normal/abnormal . [facility] CenterBarkdtfLTYGUEJDWV7700-47-20 08:48:00 Test Item Value Reference Range Interpretation Comments Lymphocytes (test code = Lymphocytes) 12.6 20.0-40.0 [facility]2018-12-25 08:48:00 Test Item Value Reference Range Interpretation Comments Magnesium Lvl (test code = Magnesium 2.2 1.8-2.4 Lvl) [facility] CenterFecpqqdOLAMMRMGJG3405-07-80 08:48:00 Test Item Value Reference Range Interpretation Comments Hgb (test code = Hgb) 8.1 12.0-16.0 [facility] CenterDjgmvyuCJZCMIUQXD5094-50-84 08:48:00 Test Item Value Reference Range Interpretation Comments Hct (test code = Hct) 24.1 36.0-48.0 [facility] CenterNplmqzuOOAXQPIOPL9256-22-76 08:48:00 Test Item Value Reference Range Interpretation Comments RBC (test code = RBC) 2.45 4.20-5.40 [facility] CenterDaxrkvdCZLEXRPPFW3701-14-67 08:48:00 Test Item Value Reference Range Interpretation Comments WBC (test code = WBC) 3.2 3.7-10.4 [facility] CenterFaooiwgNKRDFXUMRQ7719-17-71 08:48:00 Test Item Value Reference Range Interpretation Comments RDW (test code = RDW) 15.9 11.5-14.5 [facility] CenterTkjfnacYGGLIPNYWA2072-01-96 08:48:00 Test Item Value Reference Range Interpretation Comments Platelet (test code = Platelet) 128 133-450 [facility] CenterFmcgbvuTSSKKOOUZH5539-80-90 08:48:00 Test Item Value Reference Range Interpretation Comments MCHC (test code = MCHC) 33.5 32.0-36.0 [facility] CenterZqzgrorYJDJBHDTQK7825-10-34 08:48:00 Test Item Value Reference Range Interpretation Comments MCV (test code = MCV) 98.3 80.0-98.0 [facility] CenterYcneznkOEYVZBGDKX0099-76-26 08:48:00 Test Item Value Reference Range Interpretation Comments MCH (test code = MCH) 33.0 pg 27.0-31.0 [facility] CenterXmbtccbHVMHXIDCCW0781-20-01 08:48:00 Test Item Value Reference Range Interpretation Comments MPV (test code = MPV) 8.5 7.4-10.4 [facility] CenterCwnoforSTBGZNVFVO5387-77-62 08:48:00 Test Item Value Reference Range Interpretation Comments Monocytes # (test code 0.1 See_Comment [Aut omated message] The = Monocytes #) system which generated this result tra nsmitted reference range : <=0.8. The reference r bharti was not used to int erpret this result as normal/abnormal . [facility] CenterWpunxpdOEVXDXMOBE6277-08-28 08:48:00 Test Item Value Reference Range Interpretation Comments Segs (test code = Segs) 84.0 45.0-75.0 [facility] CenterAgxbktbMMUNQKAPNY3153-27-99 08:48:00 Test Item Value Reference Range Interpretation Comments Monocytes (test code = Monocytes) 3.2 2.0-12.0 [facility] CenterIswhmtmTYCERQJVWH5618-74-30 08:48:00 Test Item Value Reference Range Interpretation Comments Neutrophils # (test code = Neutrophils 2.7 1.5-8.1 #) [facility] CenterIfvzzsiBFJQWGDRXO9099-95-95 08:48:00 Test Item Value Reference Range Interpretation Comments Lymphocytes # (test code = Lymphocytes 0.4 1.0-5.5 #) [facility] CenterUmzyfdsLBHUZQSFAZ1858-72-48 08:48:00 Test Item Value Reference Range Interpretation Comments Basophils (test code = 0.2 See_Comment [Aut omated message] The Basophils) system which ge nerated this result tra nsmitted reference range : <=1.0. The reference r bharti was not used to int erpret this result as normal/abnormal . [facility] CenterEtizblgVXBYVMQPTA5522-13-37 08:48:00 Test Item Value Reference Range Interpretation Comments Lymphocytes (test code = Lymphocytes) 12.6 20.0-40.0 [facility]2018-12-25 08:48:00 Test Item Value Reference Range Interpretation Comments Magnesium Lvl (test code = Magnesium 2.2 1.8-2.4 Lvl) [facility] CenterDxwcdstLXSMCMOKBW3103-58-35 08:48:00 Test Item Value Reference Range Interpretation Comments Hgb (test code = Hgb) 8.1 12.0-16.0 [facility] CenterKdfxkwtMGDVJXKXVB9285-01-17 08:48:00 Test Item Value Reference Range Interpretation Comments Hct (test code = Hct) 24.1 36.0-48.0 [facility] CenterZhytvefOXZXQKEYHY3041-41-46 08:48:00 Test Item Value Reference Range Interpretation Comments RBC (test code = RBC) 2.45 4.20-5.40 [facility] CenterUdovmwiNMLVOPDSMI9615-23-25 08:48:00 Test Item Value Reference Range Interpretation Comments WBC (test code = WBC) 3.2 3.7-10.4 [facility] CenterJllyeucXOWIDBTXJM3814-70-32 08:48:00 Test Item Value Reference Range Interpretation Comments RDW (test code = RDW) 15.9 11.5-14.5 [facility] CenterRxshnvwGDLHEKRPHY1354-52-53 08:48:00 Test Item Value Reference Range Interpretation Comments Platelet (test code = Platelet) 128 133-450 [facility] CenterFewgpcdTEYXPXWDDW6606-87-38 08:48:00 Test Item Value Reference Range Interpretation Comments MCHC (test code = MCHC) 33.5 32.0-36.0 [facility] CenterVzpnpmkTBOKLQPCWL5262-19-38 08:48:00 Test Item Value Reference Range Interpretation Comments MCV (test code = MCV) 98.3 80.0-98.0 [facility] CenterTpblafrVFMSNZGNOF1399-96-37 08:48:00 Test Item Value Reference Range Interpretation Comments MCH (test code = MCH) 33.0 pg 27.0-31.0 [facility] CenterQwplkjyICUJMHJZEW7035-22-51 08:48:00 Test Item Value Reference Range Interpretation Comments MPV (test code = MPV) 8.5 7.4-10.[address]12-25 08:48:00 Test Item Value Reference Range Interpretation Comments Monocytes # (test code 0.1 See_Comment [Aut omated message] The = Monocytes #) system which generated this result tra nsmitted reference range : <=0.8. The reference r bharti was not used to int erpret this result as normal/abnormal . [facility] CenterXbanwxkAMTLYVQNAI6952-59-28 08:48:00 Test Item Value Reference Range Interpretation Comments Segs (test code = Segs) 84.0 45.0-75.0 [facility] CenterMiazdujVUGEAUHJYM8956-16-94 08:48:00 Test Item Value Reference Range Interpretation Comments Monocytes (test code = Monocytes) 3.2 2.0-12.0 [facility] CenterLzcmssnCBZLUDVUPH5805-85-06 08:48:00 Test Item Value Reference Range Interpretation Comments Neutrophils # (test code = Neutrophils 2.7 1.5-8.1 #) [facility] CenterIamjjonNOKTNGTSME3138-96-83 08:48:00 Test Item Value Reference Range Interpretation Comments Lymphocytes # (test code = Lymphocytes 0.4 1.0-5.5 #) [facility] CenterJgbuaffBFEGXFBXGC7018-17-75 08:48:00 Test Item Value Reference Range Interpretation Comments Basophils (test code = 0.2 See_Comment [Aut omated message] The Basophils) system which ge nerated this result tra nsmitted reference range : <=1.0. The reference r bharti was not used to int erpret this result as normal/abnormal . [facility] CenterDqlosekWNRSCJKSEF0973-62-22 08:48:00 Test Item Value Reference Range Interpretation Comments Lymphocytes (test code = Lymphocytes) 12.6 20.0-40.0 [facility]2018-12-25 00:52:00 Test Item Value Reference Range Interpretation Comments % Satur Fe (test code = % Satur Fe) 83 12-57 [facility]2018-12-25 00:52:00 Test Item Value Reference Range Interpretation Comments UIBC (test code = UIBC) 30 110-370 [facility]2018-12-25 00:52:00 Test Item Value Reference Range Interpretation Comments TIBC (test code = TIBC) 175 228-428 [facility]2018-12-25 00:52:00 Test Item Value Reference Range Interpretation Comments Iron (test code = Iron) 145 30-160 [facility]2018-12-25 00:52:00 Test Item Value Reference Range Interpretation Comments Folate Lvl (test code = Folate Lvl) 3.9 [facility]2018-12-25 00:52:00 Test Item Value Reference Range Interpretation Comments Ferritin Lvl (test code = Ferritin Lvl) 130 5-204 [facility]2018-12-25 00:52:00 Test Item Value Reference Range Interpretation Comments Vitamin B12 Lvl (test code = Vitamin [phone] B12 Lvl) [facility] CenterAhygztkDNKOWWFCEM3435-34-52 00:52:00 Test Item Value Reference Range Interpretation Comments PB Smear Path Peripheral blood smear (test code = PB examination: Macrocytic Smear Path) anemia with mild anisocytosis. No increase in schistocytes. Unremarkable WBC morphology. Mild thrombocytopenia with presence of occasional large forms. CPT: 77931 [facility]aphtqyMSOECXZSIM1177-21-31 00:52:00 Test Item Value Reference Range Interpretation Comments Hep C Ab (test code = Negative *NA*(09/24/18 Hep C Ab) 6:52 PM) [facility]QomnegxHBJNCMFUHQ5482-00-17 00:52:00 Test Item Value Reference Range Interpretation Comments HIV Ag/Ab 4th Gen Negative *NA*(09/24/18 (test code = HIV 6:52 PM) Ag/Ab 4th Gen) [facility]2018-12-25 00:52:00 Test Item Value Reference Range Interpretation Comments % Satur Fe (test code = % Satur Fe) 83 12-57 [facility]2018-12-25 00:52:00 Test Item Value Reference Range Interpretation Comments UIBC (test code = UIBC) 30 110-370 [facility]2018-12-25 00:52:00 Test Item Value Reference Range Interpretation Comments TIBC (test code = TIBC) 175 228-428 [facility]2018-12-25 00:52:00 Test Item Value Reference Range Interpretation Comments Iron (test code = Iron) 145 30-160 [facility]2018-12-25 00:52:00 Test Item Value Reference Range Interpretation Comments Folate Lvl (test code = Folate Lvl) 3.9 [facility]2018-12-25 00:52:00 Test Item Value Reference Range Interpretation Comments Ferritin Lvl (test code = Ferritin Lvl) 130 5-204 [facility]2018-12-25 00:52:00 Test Item Value Reference Range Interpretation Comments Vitamin B12 Lvl (test code = Vitamin [phone] B12 Lvl) [facility] CenterYruyjwwXDWHIMRAUU6484-53-48 00:52:00 Test Item Value Reference Range Interpretation Comments PB Smear Path Peripheral blood smear (test code = PB examination: Macrocytic Smear Path) anemia with mild anisocytosis. No increase in schistocytes. Unremarkable WBC morphology. Mild thrombocytopenia with presence of occasional large forms. CPT: 18375 [facility]NmituzxIMWSRSSTLT6017-41-71 00:52:00 Test Item Value Reference Range Interpretation Comments Hep C Ab (test code = Negative *NA*(09/24/18 Hep C Ab) 6:52 PM) [facility]VbpktmaIEXCDLUBTK8530-98-60 00:52:00 Test Item Value Reference Range Interpretation Comments HIV Ag/Ab 4th Gen Negative *NA*(09/24/18 (test code = HIV 6:52 PM) Ag/Ab 4th Gen) [facility]2018-12-25 00:52:00 Test Item Value Reference Range Interpretation Comments % Satur Fe (test code = % Satur Fe) 83 12-57 [facility]2018-12-25 00:52:00 Test Item Value Reference Range Interpretation Comments UIBC (test code = UIBC) 30 110-370 [facility]2018-12-25 00:52:00 Test Item Value Reference Range Interpretation Comments TIBC (test code = TIBC) 175 228-428 [facility]2018-12-25 00:52:00 Test Item Value Reference Range Interpretation Comments Iron (test code = Iron) 145 30-160 [facility]2018-12-25 00:52:00 Test Item Value Reference Range Interpretation Comments Folate Lvl (test code = Folate Lvl) 3.9 [facility]2018-12-25 00:52:00 Test Item Value Reference Range Interpretation Comments Ferritin Lvl (test code = Ferritin Lvl) 130 5-204 [facility]2018-12-25 00:52:00 Test Item Value Reference Range Interpretation Comments Vitamin B12 Lvl (test code = Vitamin [phone] B12 Lvl) [facility] CenterPqpqfbrXLUDQVMLLQ2317-46-41 00:52:00 Test Item Value Reference Range Interpretation Comments PB Smear Path Peripheral blood smear (test code = PB examination: Macrocytic Smear Path) anemia with mild anisocytosis. No increase in schistocytes. Unremarkable WBC morphology. Mild thrombocytopenia with presence of occasional large forms. CPT: 23793 [facility]MlszifbXWMMNQBTLC3118-91-41 00:52:00 Test Item Value Reference Range Interpretation Comments Hep C Ab (test code = Negative *NA*(09/24/18 Hep C Ab) 6:52 PM) [facility]PzggvfcMFYEOOJZDM3328-80-96 00:52:00 Test Item Value Reference Range Interpretation Comments HIV Ag/Ab 4th Gen Negative *NA*(09/24/18 (test code = HIV 6:52 PM) Ag/Ab 4th Gen) [facility]2018-12-25 00:52:00 Test Item Value Reference Range Interpretation Comments % Satur Fe (test code = % Satur Fe) 83 12-57 [facility]2018-12-25 00:52:00 Test Item Value Reference Range Interpretation Comments UIBC (test code = UIBC) 30 110-370 [facility]2018-12-25 00:52:00 Test Item Value Reference Range Interpretation Comments TIBC (test code = TIBC) 175 228-428 [facility]2018-12-25 00:52:00 Test Item Value Reference Range Interpretation Comments Iron (test code = Iron) 145 30-160 [facility]2018-12-25 00:52:00 Test Item Value Reference Range Interpretation Comments Folate Lvl (test code = Folate Lvl) 3.9 [facility]2018-12-25 00:52:00 Test Item Value Reference Range Interpretation Comments Ferritin Lvl (test code = Ferritin Lvl) 130 5-204 [facility]2018-12-25 00:52:00 Test Item Value Reference Range Interpretation Comments Vitamin B12 Lvl (test code = Vitamin [phone] B12 Lvl) [facility] CenterNkrreybBRSCGMPZQG4336-68-69 00:52:00 Test Item Value Reference Range Interpretation Comments PB Smear Path Peripheral blood smear (test code = PB examination: Macrocytic Smear Path) anemia with mild anisocytosis. No increase in schistocytes. Unremarkable WBC morphology. Mild thrombocytopenia with presence of occasional large forms. [facility]PT: 00103 [facility]RnqggkfLPDCGZPQPR3094-56-14 00:52:00 Test Item Value Reference Range Interpretation Comments Hep C Ab (test code = Negative *NA*(09/24/18 Hep C Ab) 6:52 PM) [facility]OarjdrdYNNBMOZNVV8787-25-05 00:52:00 Test Item Value Reference Range Interpretation Comments HIV Ag/Ab 4th Gen Negative *NA*(09/24/18 (test code = HIV 6:52 PM) Ag/Ab 4th Gen) [facility] CenterDooc[facility] [id number] 17:06:00 Test Item Value Reference Range Interpretation Comments RBC product (test code Product available = RBC product) (09/24/18 11:06 AM) [facility] CenterViblioOriental [employer] [facility] IYKPAKR9684-18-14 17:06:00 Test Item Value Reference Range Interpretation Comments RBC product (test code Product available = RBC product) (09/24/18 11:06 AM) [facility] CenterDo[facility] [id number] 17:06:00 Test Item Value Reference Range Interpretation Comments RBC product (test code Product available = RBC product) (09/24/18 11:06 AM) [facility] SIGFOX [id number] 17:06:00 Test Item Value Reference Range Interpretation Comments RBC product (test code Product available = RBC product) (09/24/18 11:06 AM) [facility] VOSS [id number] 07:18:00 Test Item Value Reference Range Interpretation Comments eGFR (test code = eGFR) 43 [facility] VOSS EGHWK3379-28-10 07:18:00 Test Item Value Reference Range Interpretation Comments Chloride Lvl (test code = Chloride Lvl) 108 95-109 [facility] VOSS [id number] 07:18:00 Test Item Value Reference Range Interpretation Comments CO2 (test code = CO2) 25 24-32 [facility] VOSS [id number] 07:18:00 Test Item Value Reference Range Interpretation Comments Potassium Lvl (test code = Potassium 4.7 3.5-5.1 Lvl) [facility] VOSS [id number] 07:18:00 Test Item Value Reference Range Interpretation Comments Sodium Lvl (test code = Sodium Lvl) 141 135-145 [facility]2018-12-24 07:18:00 Test Item Value Reference Range Interpretation Comments AGAP (test code = AGAP) 12.7 10.0-20.0 [facility]2018-12-24 07:18:00 Test Item Value Reference Range Interpretation Comments Calcium Lvl (test code = Calcium Lvl) 9.3 8.5-10.5 [facility]2018-12-24 07:18:00 Test Item Value Reference Range Interpretation Comments Creatinine Lvl (test code = Creatinine 1.24 0.50-1.40 Lvl) [facility]2018-12-24 07:18:00 Test Item Value Reference Range Interpretation Comments Glucose Lvl (test code = Glucose Lvl) 96 70-99 [facility]2018-12-24 07:18:00 Test Item Value Reference Range Interpretation Comments BUN (test code = BUN) 18 7-22 [facility]2018-12-24 07:18:00 Test Item Value Reference Range Interpretation Comments Phosphorus (test code = Phosphorus) 2.7 2.5-4.5 [facility]2018-12-24 07:18:00 Test Item Value Reference Range Interpretation Comments eGFR (test code = eGFR) 43 [facility]2018-12-24 07:18:00 Test Item Value Reference Range Interpretation Comments Chloride Lvl (test code = Chloride Lvl) 108 95-109 [facility]2018-12-24 07:18:00 Test Item Value Reference Range Interpretation Comments CO2 (test code = CO2) 25 24-32 [facility]2018-12-24 07:18:00 Test Item Value Reference Range Interpretation Comments Potassium Lvl (test code = Potassium 4.7 3.5-5.1 Lvl) [facility]2018-12-24 07:18:00 Test Item Value Reference Range Interpretation Comments Sodium Lvl (test code = Sodium Lvl) 141 135-145 [facility]2018-12-24 07:18:00 Test Item Value Reference Range Interpretation Comments AGAP (test code = AGAP) 12.7 10.0-20.0 [facility]2018-12-24 07:18:00 Test Item Value Reference Range Interpretation Comments Calcium Lvl (test code = Calcium Lvl) 9.3 8.5-10.5 [facility]2018-12-24 07:18:00 Test Item Value Reference Range Interpretation Comments Creatinine Lvl (test code = Creatinine 1.24 0.50-1.40 Lvl) [facility]2018-12-24 07:18:00 Test Item Value Reference Range Interpretation Comments Glucose Lvl (test code = Glucose Lvl) 96 70-99 [facility]2018-12-24 07:18:00 Test Item Value Reference Range Interpretation Comments BUN (test code = BUN) 18 7-22 [facility]2018-12-24 07:18:00 Test Item Value Reference Range Interpretation Comments Phosphorus (test code = Phosphorus) 2.7 2.5-4.5 [facility]2018-12-24 07:18:00 Test Item Value Reference Range Interpretation Comments eGFR (test code = eGFR) 43 [facility]2018-12-24 07:18:00 Test Item Value Reference Range Interpretation Comments Chloride Lvl (test code = Chloride Lvl) 108 95-109 [facility]2018-12-24 07:18:00 Test Item Value Reference Range Interpretation Comments CO2 (test code = CO2) 25 24-32 [facility]2018-12-24 07:18:00 Test Item Value Reference Range Interpretation Comments Potassium Lvl (test code = Potassium 4.7 3.5-5.1 Lvl) [facility]2018-12-24 07:18:00 Test Item Value Reference Range Interpretation Comments Sodium Lvl (test code = Sodium Lvl) 141 135-145 [facility]2018-12-24 07:18:00 Test Item Value Reference Range Interpretation Comments AGAP (test code = AGAP) 12.7 10.0-20.0 [facility]2018-12-24 07:18:00 Test Item Value Reference Range Interpretation Comments Calcium Lvl (test code = Calcium Lvl) 9.3 8.5-10.5 [facility]2018-12-24 07:18:00 Test Item Value Reference Range Interpretation Comments Creatinine Lvl (test code = Creatinine 1.24 0.50-1.40 Lvl) [facility]2018-12-24 07:18:00 Test Item Value Reference Range Interpretation Comments Glucose Lvl (test code = Glucose Lvl) 96 70-99 [facility]2018-12-24 07:18:00 Test Item Value Reference Range Interpretation Comments BUN (test code = BUN) 04-22 [facility]2018-12-24 07:18:00 Test Item Value Reference Range Interpretation Comments Phosphorus (test code = Phosphorus) 2.7 2.5-4.5 [facility]2018-12-24 07:18:00 Test Item Value Reference Range Interpretation Comments eGFR (test code = eGFR) 43 [facility]2018-12-24 07:18:00 Test Item Value Reference Range Interpretation Comments Chloride Lvl (test code = Chloride Lvl) 108 95-109 [facility]2018-12-24 07:18:00 Test Item Value Reference Range Interpretation Comments CO2 (test code = CO2) 25 24-32 [facility]2018-12-24 07:18:00 Test Item Value Reference Range Interpretation Comments Potassium Lvl (test code = Potassium 4.7 3.5-5.1 Lvl) [facility]2018-12-24 07:18:00 Test Item Value Reference Range Interpretation Comments Sodium Lvl (test code = Sodium Lvl) 141 135-145 [facility]2018-12-24 07:18:00 Test Item Value Reference Range Interpretation Comments AGAP (test code = AGAP) 12.7 10.0-20.0 [facility]2018-12-24 07:18:00 Test Item Value Reference Range Interpretation Comments Calcium Lvl (test code = Calcium Lvl) 9.3 8.5-10.5 [facility]2018-12-24 07:18:00 Test Item Value Reference Range Interpretation Comments Creatinine Lvl (test code = Creatinine 1.24 0.50-1.40 Lvl) [facility]2018-12-24 07:18:00 Test Item Value Reference Range Interpretation Comments Glucose Lvl (test code = Glucose Lvl) 96 70-99 [facility]2018-12-24 07:18:00 Test Item Value Reference Range Interpretation Comments BUN (test code = BUN) 04-22 [facility]2018-12-24 07:18:00 Test Item Value Reference Range Interpretation Comments Phosphorus (test code = Phosphorus) 2.7 2.5-4.5 [facility]2018-12-23 23:53:00 Test Item Value Reference Range Interpretation Comments Lactic Acid Lvl (test code = Lactic 0.7 0.5-2.2 Acid Lvl) [facility]2018-12-23 23:53:00 Test Item Value Reference Range Interpretation Comments Lactic Acid Lvl (test code = Lactic 0.7 0.5-2.2 Acid Lvl) [facility]2018-12-23 23:53:00 Test Item Value Reference Range Interpretation Comments Lactic Acid Lvl (test code = Lactic 0.7 0.5-2.2 Acid Lvl) [facility]2018-12-23 23:53:00 Test Item Value Reference Range Interpretation Comments Lactic Acid Lvl (test code = Lactic 0.7 0.5-2.2 Acid Lvl) [facility]2018-12-23 09:13:00 Test Item Value Reference Range Interpretation Comments Folate Lvl (test code = Folate Lvl) 4.0 [facility] [id number] 09:13:00 Test Item Value Reference Range Interpretation Comments Vitamin B12 Lvl (test code = Vitamin [phone] B12 Lvl) [facility] [id number] 09:13:00 Test Item Value Reference Range Interpretation Comments Troponin-I (test code no gt See_Comment [Auto mated message] The = Troponin-I) system which g enerated this result transmit janine reference range : <=0.40. The reference r bharti was not used to interpr et this result as zaida l/abnormal. [facility]2018-12-23 09:13:00 Test Item Value Reference Range Interpretation Comments Phosphorus (test code = Phosphorus) 3.1 2.5-4.5 [facility]2018-12-23 09:13:00 Test Item Value Reference Range Interpretation Comments Vitamin D, 25-OH, Total (test code = 9.3 30.0-100.0 Vitamin D, 25-OH, Total) [facility]2018-12-23 09:13:00 Test Item Value Reference Range Interpretation Comments Folate Lvl (test code = Folate Lvl) 4.0 [facility]2018-12-23 09:13:00 Test Item Value Reference Range Interpretation Comments Vitamin B12 Lvl (test code = Vitamin [phone] B12 Lvl) [facility]2018-12-23 09:13:00 Test Item Value Reference Range Interpretation Comments Troponin-I (test code no gt See_Comment [Auto mated message] The = Troponin-I) system which g enerated this result transmit janine reference range : <=0.40. The reference r bharti was not used to interpr et this result as zaida l/abnormal. [facility] CenterYAS[facility] Motors [id number] 09:13:00 Test Item Value Reference Range Interpretation Comments Phosphorus (test code = Phosphorus) 3.1 2.5-4.5 [facility] [id number] 09:13:00 Test Item Value Reference Range Interpretation Comments Vitamin D, 25-OH, Total (test code = 9.3 30.0-100.0 Vitamin D, 25-OH, Total) [facility]2018-12-23 09:13:00 Test Item Value Reference Range Interpretation Comments Folate Lvl (test code = Folate Lvl) 4.0 [facility]2018-12-23 09:13:00 Test Item Value Reference Range Interpretation Comments Vitamin B12 Lvl (test code = Vitamin [phone] B12 Lvl) [facility]2018-12-23 09:13:00 Test Item Value Reference Range Interpretation Comments Troponin-I (test code no gt See_Comment [Auto mated message] The = Troponin-I) system which g enerated this result transmit janine reference range : <=0.40. The reference r bharti was not used to interpr et this result as zaida l/abnormal. [facility] CenterYAS[facility] Motors [id number] 09:13:00 Test Item Value Reference Range Interpretation Comments Phosphorus (test code = Phosphorus) 3.1 2.5-4.5 [facility] [id number] 09:13:00 Test Item Value Reference Range Interpretation Comments Vitamin D, 25-OH, Total (test code = 9.3 30.0-100.0 Vitamin D, 25-OH, Total) [facility]2018-12-23 09:13:00 Test Item Value Reference Range Interpretation Comments Folate Lvl (test code = Folate Lvl) 4.0 [facility] CenterFreemanHONORHEALTH REHABILITATION HOSPITALIA [id number] 09:13:00 Test Item Value Reference Range Interpretation Comments Vitamin B12 Lvl (test code = Vitamin [phone] B12 Lvl) [facility] CentervalentinCARDIAC [id number] 09:13:00 Test Item Value Reference Range Interpretation Comments Troponin-I (test code no gt See_Comment [Auto mated message] The = Troponin-I) system which g enerated this result transmit janine reference range : <=0.40. The reference r bharti was not used to interpr et this result as zaida l/abnormal. [facility] [id number] 09:13:00 Test Item Value Reference Range Interpretation Comments Phosphorus (test code = Phosphorus) 3.1 2.5-4.5 [facility] [id number] 09:13:00 Test Item Value Reference Range Interpretation Comments Vitamin D, 25-OH, Total (test code = 9.3 30.0-100.0 Vitamin D, 25-OH, Total) [facility] JeannieTAMICIN:SUSC:PT:ISOLATE:ORDQN:[id number] 20:17:00 Test Item Value Reference Range Interpretation Comments Culture: Urine (test 50,000 - 100,000 CFU/mL code = Culture: Proteus mirabilis ESBL , Urine) Multi-drug Resistant Organism [facility] JeannieTAMICIN:SUSC:PT:ISOLATE:ORDQN:[id number] 20:17:00 Test Item Value Reference Range Interpretation Comments Proteus mirabilis ESBL Proteus mirabilis ESBL (test code = Proteus mirabilis ESBL) [facility] CenterZafarTAMICIN:SUSC:PT:ISOLATE:ORDQN:[id number] 20:17:00 Test Item Value Reference Range Interpretation Comments Culture: Urine (test 50,000 - 100,000 CFU/mL code = Culture: Proteus mirabilis ESBL , Urine) Multi-drug Resistant Organism [facility] JeannieTAMICIN:SUSC:PT:ISOLATE:ORDQN:[id number] 20:17:00 Test Item Value Reference Range Interpretation Comments Proteus mirabilis ESBL Proteus mirabilis ESBL (test code = Proteus mirabilis ESBL) [facility] LisbethannGENTAMICIN:SUSC:PT:ISOLATE:ORDQN:[id number] 20:17:00 Test Item Value Reference Range Interpretation Comments Culture: Urine (test 50,000 - 100,000 CFU/mL code = Culture: Proteus mirabilis ESBL , Urine) Multi-drug Resistant Organism [facility] LisbethannGENTAMICIN:SUSC:PT:ISOLATE:ORDQN:[id number] 20:17:00 Test Item Value Reference Range Interpretation Comments Proteus mirabilis ESBL Proteus mirabilis ESBL (test code = Proteus mirabilis ESBL) [facility] LisbethannGENTAMICIN:SUSC:PT:ISOLATE:ORDQN:[id number] 20:17:00 Test Item Value Reference Range Interpretation Comments Culture: Urine (test 50,000 - 100,000 CFU/mL code = Culture: Proteus mirabilis ESBL , Urine) Multi-drug Resistant Organism [facility] LisbethannTAMICIN:SUSC:PT:ISOLATE:ORDQN:[id number] 20:17:00 Test Item Value Reference Range Interpretation Comments Proteus mirabilis ESBL Proteus mirabilis ESBL (test code = Proteus mirabilis ESBL) [facility] CenterannCARDIAC [id number] 19:54:00 Test Item Value Reference Range Interpretation Comments Troponin-I (test code no gt See_Comment [Auto mated message] The = Troponin-I) system which g enerated this result transmit janine reference range : <=0.40. The reference r bharti was not used to interpr et this result as zaida l/abnormal. [facility] CenterannEN[facility] AND [id number] 19:54:00 Test Item Value Reference Range Interpretation Comments UA Sq Epi (test code = UA Sq Moderate /LPF Epi) [facility] AND [id number] 19:54:00 Test Item Value Reference Range Interpretation Comments UA WBC (test code = UA WBC) 51-100 /HPF [facility] AND [id number] 19:54:00 Test Item Value Reference Range Interpretation Comments UA RBC (test code 11-20 /HPF See_Comment [Automate d message] The = UA RBC) system which ge nerated this result tra nsmitted reference range : <=2. The reference range was not used to interpr et this result as normal/abnormal . [facility] AND [id number] 19:54:00 Test Item Value Reference Range Interpretation Comments UA Tr Phos Sofiya (test code = UA Tr Many /HPF Phos Sofiya) [facility] AND [id number] 19:54:00 Test Item Value Reference Range Interpretation Comments UA Bacteria (test code = UA Many /HPF Bacteria) [facility] AND [id number] 19:54:00 Test Item Value Reference Range Interpretation Comments UA pH (test code = UA pH) 7.5 1 5.0-8.0 [facility] AND [id number] 19:54:00 Test Item Value Reference Range Interpretation Comments UA Glucose (test code = UA Glucose) 100 mg/dL [facility] AND [id number] 19:54:00 Test Item Value Reference Range Interpretation Comments UA Protein (test code = UA Protein) 100 mg/dL [facility] AND [id number] 19:54:00 Test Item Value Reference Range Interpretation Comments UA Spec Grav (test code = UA Spec 1.020 1 Grav) [facility] AND [id number] 19:54:00 Test Item Value Reference Range Interpretation Comments UA Turbidity (test code Cloudy *ABN*(09/22/18 = UA Turbidity) 1:54 PM) [facility] AND [id number] 19:54:00 Test Item Value Reference Range Interpretation Comments UA Color (test code = Yellow *NA*(09/22/18 UA Color) 1:54 PM) [facility] AND [id number] 19:54:00 Test Item Value Reference Range Interpretation Comments UA Leuk Est (test code Large *ABN*(09/22/18 = UA Leuk Est) 1:54 PM) [facility] AND [id number] 19:54:00 Test Item Value Reference Range Interpretation Comments UA Nitrite (test code Positive *ABN*(09/22/18 = UA Nitrite) 1:54 PM) [facility] AND [id number] 19:54:00 Test Item Value Reference Range Interpretation Comments UA Blood (test code = Moderate *ABN*(09/22/18 UA Blood) 1:54 PM) [facility] [id number] 19:54:00 Test Item Value Reference Range Interpretation Comments UA Urobilinogen (test code = UA 4.0 0.1-1.0 Urobilinogen) [facility] [id number] 19:54:00 Test Item Value Reference Range Interpretation Comments UA Ketones (test code Negative *NA*(09/22/18 = UA Ketones) 1:54 PM) [facility] [id number] 19:54:00 Test Item Value Reference Range Interpretation Comments UA Bili (test code = Small *ABN*(09/22/18 UA Bili) 1:54 PM) [facility]annCARDIAC [id number] 19:54:00 Test Item Value Reference Range Interpretation Comments Troponin-I (test code no gt See_Comment [Auto mated message] The = Troponin-I) system which g enerated this result transmit janine reference range : <=0.40. The reference r bharti was not used to interpr et this result as zaida l/abnormal. [facility] [id number] 19:54:00 Test Item Value Reference Range Interpretation Comments UA Sq Epi (test code = UA Sq Moderate /LPF Epi) [facility] [id number] 19:54:00 Test Item Value Reference Range Interpretation Comments UA WBC (test code = UA WBC) 51-100 /HPF [facility] [id number] 19:54:00 Test Item Value Reference Range Interpretation Comments UA RBC (test code 11-20 /HPF See_Comment [Automate d message] The = UA RBC) system which ge nerated this result tra nsmitted reference range : <=2. The reference range was not used to interpr et this result as normal/abnormal . [facility] [id number] 19:54:00 Test Item Value Reference Range Interpretation Comments UA Tr Phos Sofiya (test code = UA Tr Many /HPF Phos Sofiya) [facility] [id number] 19:54:00 Test Item Value Reference Range Interpretation Comments UA Bacteria (test code = UA Many /HPF Bacteria) [facility] [id number] 19:54:00 Test Item Value Reference Range Interpretation Comments UA pH (test code = UA pH) 7.5 1 5.0-8.0 [facility] AND [id number] 19:54:00 Test Item Value Reference Range Interpretation Comments UA Glucose (test code = UA Glucose) 100 mg/dL [facility] AND [id number] 19:54:00 Test Item Value Reference Range Interpretation Comments UA Protein (test code = UA Protein) 100 mg/dL [facility] AND [id number] 19:54:00 Test Item Value Reference Range Interpretation Comments UA Spec Grav (test code = UA Spec 1.020 1 Grav) [facility] AND [id number] 19:54:00 Test Item Value Reference Range Interpretation Comments UA Turbidity (test code Cloudy *ABN*(09/22/18 = UA Turbidity) 1:54 PM) [facility] AND [id number] 19:54:00 Test Item Value Reference Range Interpretation Comments UA Color (test code = Yellow *NA*(09/22/18 UA Color) 1:54 PM) [facility] AND [id number] 19:54:00 Test Item Value Reference Range Interpretation Comments UA Leuk Est (test code Large *ABN*(09/22/18 = UA Leuk Est) 1:54 PM) [facility] AND [id number] 19:54:00 Test Item Value Reference Range Interpretation Comments UA Nitrite (test code Positive *ABN*(09/22/18 = UA Nitrite) 1:54 PM) [facility] AND [id number] 19:54:00 Test Item Value Reference Range Interpretation Comments UA Blood (test code = Moderate *ABN*(09/22/18 UA Blood) 1:54 PM) [facility] AND [id number] 19:54:00 Test Item Value Reference Range Interpretation Comments UA Urobilinogen (test code = UA 4.0 0.1-1.0 Urobilinogen) [facility] AND [id number] 19:54:00 Test Item Value Reference Range Interpretation Comments UA Ketones (test code Negative *NA*(09/22/18 = UA Ketones) 1:54 PM) [facility] AND [id number] 19:54:00 Test Item Value Reference Range Interpretation Comments UA Bili (test code = Small *ABN*(09/22/18 UA Bili) 1:54 PM) [facility] [id number] 19:54:00 Test Item Value Reference Range Interpretation Comments Troponin-I (test code no gt See_Comment [Auto mated message] The = Troponin-I) system which g enerated this result transmit janine reference range : <=0.40. The reference r bharti was not used to interpr et this result as zaida l/abnormal. [facility] [id number] 19:54:00 Test Item Value Reference Range Interpretation Comments UA Sq Epi (test code = UA Sq Moderate /LPF Epi) [facility] [id number] 19:54:00 Test Item Value Reference Range Interpretation Comments UA WBC (test code = UA WBC) 51-100 /HPF [facility] AND [id number] 19:54:00 Test Item Value Reference Range Interpretation Comments UA RBC (test code 11-20 /HPF See_Comment [Automate d message] The = UA RBC) system which ge nerated this result tra nsmitted reference range : <=2. The reference range was not used to interpr et this result as normal/abnormal . [facility] [id number] 19:54:00 Test Item Value Reference Range Interpretation Comments UA Tr Phos Sofiya (test code = UA Tr Many /HPF Phos Sofiya) [facility] AND [id number] 19:54:00 Test Item Value Reference Range Interpretation Comments UA Bacteria (test code = UA Many /HPF Bacteria) [facility] [id number] 19:54:00 Test Item Value Reference Range Interpretation Comments UA pH (test code = UA pH) 7.5 1 5.0-8.0 [facility] AND [id number] 19:54:00 Test Item Value Reference Range Interpretation Comments UA Glucose (test code = UA Glucose) 100 mg/dL [facility] AND [id number] 19:54:00 Test Item Value Reference Range Interpretation Comments UA Protein (test code = UA Protein) 100 mg/dL [facility] AND [id number] 19:54:00 Test Item Value Reference Range Interpretation Comments UA Spec Grav (test code = UA Spec 1.020 1 Grav) [facility] AND [id number] 19:54:00 Test Item Value Reference Range Interpretation Comments UA Turbidity (test code Cloudy *ABN*(09/22/18 = UA Turbidity) 1:54 PM) [facility] AND [id number] 19:54:00 Test Item Value Reference Range Interpretation Comments UA Color (test code = Yellow *NA*(09/22/18 UA Color) 1:54 PM) [facility] [id number] 19:54:00 Test Item Value Reference Range Interpretation Comments UA Leuk Est (test code Large *ABN*(09/22/18 = UA Leuk Est) 1:54 PM) [facility] AND [id number] 19:54:00 Test Item Value Reference Range Interpretation Comments UA Nitrite (test code Positive *ABN*(09/22/18 = UA Nitrite) 1:54 PM) [facility] [id number] 19:54:00 Test Item Value Reference Range Interpretation Comments UA Blood (test code = Moderate *ABN*(09/22/18 UA Blood) 1:54 PM) [facility] AND [id number] 19:54:00 Test Item Value Reference Range Interpretation Comments UA Urobilinogen (test code = UA 4.0 0.1-1.0 Urobilinogen) [facility] AND [id number] 19:54:00 Test Item Value Reference Range Interpretation Comments UA Ketones (test code Negative *NA*(09/22/18 = UA Ketones) 1:54 PM) [facility] [id number] 19:54:00 Test Item Value Reference Range Interpretation Comments UA Bili (test code = Small *ABN*(09/22/18 UA Bili) 1:54 PM) [facility] [id number] 19:54:00 Test Item Value Reference Range Interpretation Comments Troponin-I (test code no gt See_Comment [Auto mated message] The = Troponin-I) system which g enerated this result transmit janine reference range : <=0.40. The reference r bharti was not used to interpr et this result as zaida l/abnormal. [facility] AND [id number] 19:54:00 Test Item Value Reference Range Interpretation Comments UA Sq Epi (test code = UA Sq Moderate /LPF Epi) [facility] AND [id number] 19:54:00 Test Item Value Reference Range Interpretation Comments UA WBC (test code = UA WBC) 51-100 /HPF [facility] AND [id number] 19:54:00 Test Item Value Reference Range Interpretation Comments UA RBC (test code 11-20 /HPF See_Comment [Automate d message] The = UA RBC) system which ge nerated this result tra nsmitted reference range : <=2. The reference range was not used to interpr et this result as normal/abnormal . [facility] AND [id number] 19:54:00 Test Item Value Reference Range Interpretation Comments UA Tr Phos Sofiya (test code = UA Tr Many /HPF Phos Sofiya) [facility] AND [id number] 19:54:00 Test Item Value Reference Range Interpretation Comments UA Bacteria (test code = UA Many /HPF Bacteria) [facility] AND [id number] 19:54:00 Test Item Value Reference Range Interpretation Comments UA pH (test code = UA pH) 7.5 1 5.0-8.0 [facility] AND [id number] 19:54:00 Test Item Value Reference Range Interpretation Comments UA Glucose (test code = UA Glucose) 100 mg/dL [facility] AND [id number] 19:54:00 Test Item Value Reference Range Interpretation Comments UA Protein (test code = UA Protein) 100 mg/dL [facility] AND [id number] 19:54:00 Test Item Value Reference Range Interpretation Comments UA Spec Grav (test code = UA Spec 1.020 1 Grav) [facility] AND [id number] 19:54:00 Test Item Value Reference Range Interpretation Comments UA Turbidity (test code Cloudy *ABN*(09/22/18 = UA Turbidity) 1:54 PM) [facility] AND [id number] 19:54:00 Test Item Value Reference Range Interpretation Comments UA Color (test code = Yellow *NA*(09/22/18 UA Color) 1:54 PM) [facility] AND [id number] 19:54:00 Test Item Value Reference Range Interpretation Comments UA Leuk Est (test code Large *ABN*(09/22/18 = UA Leuk Est) 1:54 PM) [facility] AND [id number] 19:54:00 Test Item Value Reference Range Interpretation Comments UA Nitrite (test code Positive *ABN*(09/22/18 = UA Nitrite) 1:54 PM) [facility] AND [id number] 19:54:00 Test Item Value Reference Range Interpretation Comments UA Blood (test code = Moderate *ABN*(09/22/18 UA Blood) 1:54 PM) [facility] AND [id number] 19:54:00 Test Item Value Reference Range Interpretation Comments UA Urobilinogen (test code = UA 4.0 0.1-1.0 Urobilinogen) [facility] AND [id number] 19:54:00 Test Item Value Reference Range Interpretation Comments UA Ketones (test code Negative *NA*(09/22/18 = UA Ketones) 1:54 PM) [facility] AND [id number] 19:54:00 Test Item Value Reference Range Interpretation Comments UA Bili (test code = Small *ABN*(09/22/18 UA Bili) 1:54 PM) [facility] [id number] 08:34:00 Test Item Value Reference Range Interpretation Comments ABO/Rh (test code = ABO/Rh) O NEG [facility] [id number] 08:34:00 Test Item Value Reference Range Interpretation Comments Antibody Scrn (test Negative (09/22/18 code = Antibody Scrn) 2:34 AM) [facility] [id number] 08:34:00 Test Item Value Reference Range Interpretation Comments Eosinophils # (test code 0.1 See_Comment [A utomated message] The = Eosinophils #) system whic h generated this result tra nsmitted reference range : <=0.5. The reference r bharti was not used to int erpret this result as normal/abnormal . [facility] [id number] 08:34:00 Test Item Value Reference Range Interpretation Comments Macrocyte (test code = 1+ *ABN*(09/22/18 Macrocyte) 2:34 AM) [facility] [id number] 08:34:00 Test Item Value Reference Range Interpretation Comments Eosinophils (test code = 1.1 See_Comment [A utomated message] The Eosinophils) system which ge nerated this result tra nsmitted reference range : <=4.0. The reference r bharti was not used to int erpret this result as normal/abnormal . [facility] [id number] 08:34:00 Test Item Value Reference Range Interpretation Comments ABO/Rh (test code = ABO/Rh) O NEG [facility] [id number] 08:34:00 Test Item Value Reference Range Interpretation Comments Antibody Scrn (test Negative (09/22/18 code = Antibody Scrn) 2:34 AM) [facility] [id number] 08:34:00 Test Item Value Reference Range Interpretation Comments Eosinophils # (test code 0.1 See_Comment [A utomated message] The = Eosinophils #) system whic h generated this result tra nsmitted reference range : <=0.5. The reference r bharti was not used to int erpret this result as normal/abnormal . [facility] [id number] 08:34:00 Test Item Value Reference Range Interpretation Comments Macrocyte (test code = 1+ *ABN*(09/22/18 Macrocyte) 2:34 AM) [facility] [id number] 08:34:00 Test Item Value Reference Range Interpretation Comments Eosinophils (test code = 1.1 See_Comment [A utomated message] The Eosinophils) system which ge nerated this result tra nsmitted reference range : <=4.0. The reference r bharti was not used to int erpret this result as normal/abnormal . [facility] [id number] 08:34:00 Test Item Value Reference Range Interpretation Comments ABO/Rh (test code = ABO/Rh) O NEG [facility] [id number] 08:34:00 Test Item Value Reference Range Interpretation Comments Antibody Scrn (test Negative (09/22/18 code = Antibody Scrn) 2:34 AM) [id number] 08:34:00 Test Item Value Reference Range Interpretation Comments Eosinophils # (test code 0.1 See_Comment [A utomated message] The = Eosinophils #) system Tubis generated this result tra nsmitted reference range : <=0.5. The reference r bharti was not used to int erpret this result as normal/abnormal . [facility] [id number] 08:34:00 Test Item Value Reference Range Interpretation Comments Macrocyte (test code = 1+ *ABN*(09/22/18 Macrocyte) 2:34 AM) [facility] [id number] 08:34:00 Test Item Value Reference Range Interpretation Comments Eosinophils (test code = 1.1 See_Comment [A utomated message] The Eosinophils) system which ge nerated this result tra nsmitted reference range : <=4.0. The reference r bharti was not used to int erpret this result as normal/abnormal . [facility] [id number] 08:34:00 Test Item Value Reference Range Interpretation Comments ABO/Rh (test code = ABO/Rh) O NEG [facility] [id number] 08:34:00 Test Item Value Reference Range Interpretation Comments Antibody Scrn (test Negative (09/22/18 code = Antibody Scrn) 2:34 AM) [facility] CenterLocuwqoINOAKFPCYO7371-22-06 08:34:00 Test Item Value Reference Range Interpretation Comments Eosinophils # (test code 0.1 See_Comment [A utomated message] The = Eosinophils #) system Tubis generated this result tra nsmitted reference range : <=0.5. The reference r bharti was not used to int erpret this result as normal/abnormal . [facility] Cent[id number] 08:34:00 Test Item Value Reference Range Interpretation Comments Macrocyte (test code = 1+ *ABN*(09/22/18 Macrocyte) 2:34 AM) [facility] Cent[id number] 08:34:00 Test Item Value Reference Range Interpretation Comments Eosinophils (test code = 1.1 See_Comment [A utomated message] The Eosinophils) system which ge nerated this result tra nsmitted reference range : <=4.0. The reference r bharti was not used to int erpret this result as normal/abnormal . [facility] [id number] 17:53:00 Test Item Value Reference Range Interpretation Comments CREATININE CLEARANCE 47.2 mL/min 70.0-140.0 L ([facility]) (test code = 357) VOLUME, TOTAL ([facility]) 1050 ml (test code = 1457) CREATININE URINE 78.9 mg/dL ([facility]) (test code = 375) [id number] Linda Pitts MD ([facility]) (test code = (electronic signature) 0622) POCT-GLUCOSE [id number] 11:37:00 Test Item Value Reference Range Interpretation Comments POC-GLUCOSE METER 128 mg/dL 70-110 H TESTED AT [place] [address] ([facility]) (test code = [facility] 1538) [address] URINE [id number] 11:02:00 Test Item Value Reference Range Interpretation Comments CULTURE ([facility]) (test <10,000 col/mL skin code = 1095) jayshree POCT-GLUCOSE [id number] 06:28:00 Test Item Value Reference Range Interpretation Comments POC-GLUCOSE METER 101 mg/dL 70-110 TESTED AT [place] [address] ([facility]) (test code = [facility] 1538) [address] POCT-GLUCOSE [id number] 00:46:00 Test Item Value Reference Range Interpretation Comments POC-GLUCOSE METER 130 mg/dL 70-110 H TESTED AT [place] [address] ([facility]) (test code = [facility] 1538) [address] POCT-GLUCOSE [id number] 20:21:00 Test Item Value Reference Range Interpretation Comments POC-GLUCOSE METER 133 mg/dL 70-110 H TESTED AT [place] [address] ([facility]) (test code = [facility] 1538) [address] [id number] 18:44:00 Test Item Value Reference Range Interpretation Comments CREATININE ([facility]) 0.82 mg/dL 0.57-1.25 (test code = 358) EGFR ([facility]) (test 69 mL/min/1.73 ESTIMA JANINE GFR IS code = 1092) sq m NOT ACCURATE CREATININE CLEARANCE IN PREDICTING GLOMERULAR FILTRATION RATE . ESTIMATED GFR I S NOT APPLICABLE FOR DIALYSIS PATIEN TS. POCT-GLUCOSE [id number] 17:11:00 Test Item Value Reference Range Interpretation Comments POC-GLUCOSE METER 118 mg/dL 70-110 H TESTED AT [facility] 6720 [facility] (test code = [facility]PH [facility] 1538) [address] POCT-GLUCOSE [id number] 15:29:00 Test Item Value Reference Range Interpretation Comments POC-GLUCOSE METER 63 mg/dL 70-110 L Notified R Ravinder MD/[facility]ED AT [facility] (test code = [address] 1538) [facility] 7[address] 0 POCT-GLUCOSE [id number] 15:03:00 Test Item Value Reference Range Interpretation Comments POC-GLUCOSE METER 51 mg/dL 70-110 L Notified R N MD[facility]ED AT [facility] (test code = [address] 1538) [facility] 7703 0 POCT-GLUCOSE [id number] 11:28:00 Test Item Value Reference Range Interpretation Comments POC-GLUCOSE METER 75 mg/dL 70-110 TESTED AT [place] [id number] ([facility]) (test code = JOSEPH Hend[facility] [address] 1538) CALCIUM, 24 HOUR [id number] 09:19:00 Test Item Value Reference Range Interpretation Comments VOLUME, TOTAL (BEAKER) (test 1050 ml code = 1457) CALCIUM URINE (BEAKER) (test 15.4 mg/dL code = 396) CALCIUM, 24HR URINE (BEAKER) 162 mg/24 Hr 50-300 (test code = 1520) VITAMIN D, [id number] 07:18:00 Test Item Value Reference Range Interpretation Comments VITAMIN D 25-OH (BEAKER) (test code = < ng/mL 13.0-47.8 L 2764) CBC W/PLT COUNT & AUTO [id number] 07:04:00 Test Item Value Reference Range Interpretation [...] 0.00-0.20 (test code = 417) 0.00BASI METABOLIC [id number] 07:01:00 Test Item Value Reference Range Interpretation [...] S NOT APPLICABLE FOR DIALYSIS PATIEN TS. [id number] 06:57:00 Test Item Value Reference Range Interpretation Comments PHOSPHORUS (BEAKER) (test code = 3.0 mg/dL 2.3-4.7 604) [id number] 06:57:00 Test Item Value Reference Range Interpretation Comments MAGNESIUM (BEAKER) (test code = 2.2 mg/dL 1.6-2.6 627) [id number] 06:34:00 Test Item Value Reference Range Interpretation Comments ALBUMIN (BEAKER) (test code = 1145) 3.8 g/dL 3.5-5.0 POCT-GLUCOSE [id number] 06:32:00 Test Item Value Reference Range Interpretation Comments POC-GLUCOSE METER 104 mg/dL 70-110 TESTED AT [place] [address] (BEAKER) (test [facility] = [facility] 1538) [address] POCT-GLUCOSE [id number] 23:41:00 Test Item Value Reference Range Interpretation Comments POC-GLUCOSE METER 108 mg/dL 70-110 TESTED AT [place] [address] ([facility] (test code = [facility] 1538) [address] POCT-GLUCOSE [id number] 17:58:00 Test Item Value Reference Range Interpretation Comments POC-GLUCOSE METER 112 mg/dL 70-110 H TESTED AT [place] [address] ([facility] (test code = [facility] 1538) [address] URINALYSIS W/ REFLEX URINE [id number] 16:02:00 Test Item Value Reference Range Interpretation [...] 514) SOURCE(BEAKER) (test code = 2795) POCT-GLUCOSE [id number] 12:49:00 Test Item Value Reference Range Interpretation Comments POC-GLUCOSE METER 79 mg/dL 70-110 TESTED AT [facility] 6720 (BEAKER) (test code = [place] [address] 1538) CBC W/PLT COUNT & AUTO [id number] 09:59:00 Test Item Value Reference Range Interpretation [...] (BEAKER) (test code = Normal 762) POCT-GLUCOSE [id number] 06:20:00 Test Item Value Reference Range Interpretation Comments POC-GLUCOSE METER 140 mg/dL 70-110 H TESTED AT [facility] 6720 (BEAKER) (test code = [facility] [place] 1538) [address] [id number] 06:11:00 Test Item Value Reference Range Interpretation Comments ALBUMIN (BEAKER) 3.2 g/dL 3.5-5.0 L Specimen mo derately (test code = 1145) hemolyzed BASIC METABOLIC [id number] 06:00:00 Test Item Value Reference Range Interpretation [...] S NOT APPLICABLE FOR DIALYSIS PATIEN TS. [id number] 05:59:00 Test Item Value Reference Range Interpretation Comments PHOSPHORUS (BEAKER) (test code = 3.1 mg/dL 2.3-4.7 604) [id number] 05:59:00 Test Item Value Reference Range Interpretation Comments MAGNESIUM (BEAKER) (test code = 2.0 mg/dL 1.6-2.6 627) POCT-GLUCOSE [id number] 23:38:00 Test Item Value Reference Range Interpretation Comments POC-GLUCOSE METER 156 mg/dL 70-110 H TESTED AT [facility] 6720 (BEAKER) (test code = [facility] 1538) [address] POCT-GLUCOSE [id number] 18:18:00 Test Item Value Reference Range Interpretation Comments POC-GLUCOSE METER 110 mg/dL 70-110 TESTED AT [facility] 6720 (BEAKER) (test code = [facility] [place] 1538) [address] POCT-GLUCOSE [id number] 11:44:00 Test Item Value Reference Range Interpretation Comments POC-GLUCOSE METER 79 mg/dL 70-110 TESTED AT [facility] 6720 (BEAKER) (test code = [facility] [place] [id number] 8238) CBC W/PLT COUNT & AUTO [id number] 11:03:00 Test Item Value Reference Range Interpretation [...] (BEAKER) (test code = Normal 762) POCT-GLUCOSE [id number] 06:21:00 Test Item Value Reference Range Interpretation Comments POC-GLUCOSE METER 152 mg/dL 70-110 H TESTED AT [facility] 6720 (BEAKER) (test code = [facility] 1538) [address] BASIC METABOLIC [id number] 06:04:00 Test Item Value Reference Range Interpretation [...] S NOT APPLICABLE FOR DIALYSIS PATIEN TS. [id number] 05:56:00 Test Item Value Reference Range Interpretation Comments PHOSPHORUS (BEAKER) (test code = 3.5 mg/dL 2.3-4.7 604) [id number] 05:56:00 Test Item Value Reference Range Interpretation Comments MAGNESIUM ([facility]) (test code = 1.9 mg/dL 1.6-2.6 627) POCT-GLUCOSE [id number] 23:51:00 Test Item Value Reference Range Interpretation Comments POC-GLUCOSE METER 168 mg/dL 70-110 H TESTED AT [place] [address] ([facility]) (test code = [facility] [place] 1538) [address] POCT-GLUCOSE [id number] 18:34:00 Test Item Value Reference Range Interpretation Comments POC-GLUCOSE METER 80 mg/dL 70-110 TESTED AT [place] [address] ([facility]) (test code = [place] [address] 1538) POCT-GLUCOSE [id number] 16:09:00 Test Item Value Reference Range Interpretation Comments POC-GLUCOSE METER 83 mg/dL 70-110 TESTED AT [place] [address] ([facility]) (test code = JOSEPH Hend[facility] [address] 1538) POCT-GLUCOSE [id number] 16:09:00 Test Item Value Reference Range Interpretation Comments POC-GLUCOSE METER 41 mg/dL 70-110 L TESTED AT [place] [address] ([facility]) (test code = JOSE[facility] [address] 1538) POCT-GLUCOSE [id number] 15:20:00 Test Item Value Reference Range Interpretation Comments POC-GLUCOSE METER 44 mg/dL 70-110 L TESTED AT [place] [address] ([facility]) (test code = JOSEPH [facility] [address] 1538) POCT-GLUCOSE [id number] 08:27:00 Test Item Value Reference Range Interpretation Comments POC-GLUCOSE METER 114 mg/dL 70-110 H TESTED AT [place] [address] ([facility]) (test code = [facility] [place] 1538) [address] POCT-GLUCOSE [id number] 08:27:00 Test Item Value Reference Range Interpretation Comments POC-GLUCOSE METER 35 mg/dL 70-110 LL TESTED AT [place] [address] ([facility]) (test code = [place] [address] 1538) CBC W/PLT COUNT & AUTO [id number] 07:04:00 Test Item Value Reference Range Interpretation Comments WHITE BLOOD CELL COUNT ([facility]) 8.2 K/ L 4.0-10.0 (test [...] L 0.00-0.20 (test code = 417) 0.00POCT-GLUCOSE [id number] 06:20:00 Test Item Value Reference Range Interpretation Comments POC-GLUCOSE METER 62 mg/dL 70-110 L Notified R Ravinder COTO/TESTED AT (BEAKER) (test code = [facility] 67[address] 1531) [place] [address] BASIC METABOLIC [id number] 06:13:00 Test Item Value Reference Range Interpretation [...] S NOT APPLICABLE FOR DIALYSIS PATIEN TS. [id number] 06:10:00 Test Item Value Reference Range Interpretation Comments PHOSPHORUS (BEAKER) (test code = 3.5 mg/dL 2.3-4.7 604) [id number] 06:10:00 Test Item Value Reference Range Interpretation Comments MAGNESIUM (BEAKER) (test code = 2.2 mg/dL 1.6-2.6 627) PROTHROMBIN [id number] 06:05:00 Test Item Value Reference Range Interpretation Comments PROTIME (BEAKER) (test code = 15.5 seconds 11.7-14.7 H 759) INR (BEAKER) (test code = 370) 1.2 <=5.9 RECOMMENDED COUMADIN/WARFARIN INR THERAPY RANGESSTANDARD DOSE: 2.0 - 3.0 Includes: PROPHYLAXIS for venous thrombosis, systemic embolization; TREATMENT for venous thrombosis and/or pulmonary embolus.HIGH RISK: Target INR is 2.5-3.5 for patients with mechanical heart valves.POCT-GLUCOSE [id number] 23:58:00 Test Item Value Reference Range Interpretation Comments POC-GLUCOSE METER 108 mg/dL 70-110 TESTED AT [place] [address] ([facility]) (test code = [facility] 1538) [address] POCT-GLUCOSE [id number] 18:02:00 Test Item Value Reference Range Interpretation Comments POC-GLUCOSE METER 126 mg/dL 70-110 H TESTED AT [place] [address] ([facility]) (test code = [facility] 1538) [address] PTH, [id number] 14:50:00 Test Item Value Reference Range Interpretation Comments PARATHYROID HORMONE INTACT 274.9 pg/mL 8.5-72.5 H ([facility]) (test code = 577) Effective 08/19/2014: Reference Range ChangeNew: 8.5-72.5 Previous: 15.0-90.0 POCT-GLUCOSE [id number] 13:33:00 Test Item Value Reference Range Interpretation Comments POC-GLUCOSE METER 145 mg/dL 70-110 H TESTED AT [place] [address] ([facility]) (test code = [facility] 1538) [address] CBC W/PLT COUNT & AUTO [id number] 08:35:00 Test Item Value Reference Range Interpretation Comments WHITE BLOOD CELL COUNT (AKER) 10.2 K/ L 4.0-10.0 H (test code = 775) RED BLOOD CELL COUNT ([facility]) 3.96 M/ L 4.00-5.00 L (test code = 761) HEMOGLOBIN (BEAKER) (test code = 12.8 GM/DL 12.0-15.0 410) HEMATOCRIT (AKER) (test code = 38.7 % 36.0-45.0 411) [...] (BEAKER) (test code = 1351) BASIC METABOLIC [id number] 06:00:00 Test Item Value Reference Range Interpretation [...] S NOT APPLICABLE FOR DIALYSIS PATIEN TS. [id number] 05:59:00 Test Item Value Reference Range Interpretation Comments MAGNESIUM (BEAKER) 2.4 mg/dL 1.6-2.6 Specimen slightly (test code = 627) hemolyzed [id number] 05:59:00 Test Item Value Reference Range Interpretation Comments PHOSPHORUS (BEAKER) 3.1 mg/dL 2.3-4.7 Specimen slightly (test code = 604) hemolyzed POCT-GLUCOSE [id number] 05:32:00 Test Item Value Reference Range Interpretation Comments POC-GLUCOSE METER 114 mg/dL 70-110 H TESTED AT [place] [address] ([facility]) (test code = [facility] 1538) [address] POCT-GLUCOSE [id number] 00:02:00 Test Item Value Reference Range Interpretation Comments POC-GLUCOSE METER 106 mg/dL 70-110 TESTED AT [place] [address] ([facility]) (test code = [facility] [place] 1538) [address] POCT-GLUCOSE [id number] 18:28:00 Test Item Value Reference Range Interpretation Comments POC-GLUCOSE METER 150 mg/dL 70-110 H TESTED AT [place] [address] ([facility]) (test code = [facility] [place] 1538) [address] POCT-GLUCOSE [id number] 12:31:00 Test Item Value Reference Range Interpretation Comments POC-GLUCOSE METER 152 mg/dL 70-110 H TESTED AT [place] [address] ([facility]) (test code = [facility] 1538) [address] POCT-GLUCOSE [id number] 05:41:00 Test Item Value Reference Range Interpretation Comments POC-GLUCOSE METER 120 mg/dL 70-110 H TESTED AT [place] [address] ([facility]) (test code = [facility] [place] 1538) [address] CBC W/PLT COUNT & AUTO [id number] 05:00:00 Test Item Value Reference Range Interpretation [...] 0.00-0.20 (test code = 417) 0.00BASIC METABOLIC [id number] 04:58:00 Test Item Value Reference Range Interpretation [...] S NOT APPLICABLE FOR DIALYSIS PATIEN TS. [id number] 04:57:00 Test Item Value Reference Range Interpretation Comments MAGNESIUM (BEAKER) 2.5 mg/dL 1.6-2.6 Specimen slightly (test code = 627) hemolyzed [id number] 04:57:00 Test Item Value Reference Range Interpretation Comments PHOSPHORUS (BEAKER) 3.3 mg/dL 2.3-4.7 Specimen slightly (test code = 604) hemolyzed POCT-GLUCOSE [id number] 00:44:00 Test Item Value Reference Range Interpretation Comments POC-GLUCOSE METER 142 mg/dL 70-110 H TESTED AT [facility] 6720 (BEAKER) (test code = [facility] [place] 1538) [address] POCT-GLUCOSE [id number] 18:34:00 Test Item Value Reference Range Interpretation Comments POC-GLUCOSE METER 115 mg/dL 70-110 H TESTED AT [facility] 6720 (BEAKER) (test code = [facility] [place] 1538) [address] POCT-GLUCOSE [id number] 12:21:00 Test Item Value Reference Range Interpretation Comments POC-GLUCOSE METER 123 mg/dL 70-110 H TESTED AT [facility] 6720 (BEAKER) (test code = [facility] [place] 1538) [address] URINE [id number] 10:42:00 Test Item Value Reference Range Interpretation Comments CULTURE (BEAKER) (test code = 1095) No growth [id number] 06:53:00 Test Item Value Reference Range Interpretation Comments POTASSIUM (BEAKER) (test code = 3.6 meq/L 3.5-5.1 379) Check Serum Potassium level 2 hours after oral potassium replacement completed or 30 min after intravenous potassium replacement.[id number] 06:53:00 Test Item Value Reference Range Interpretation Comments MAGNESIUM (BEAKER) (test code = 2.7 mg/dL 1.6-2.6 H 627) Check Serum Potassium level 2 hours after oral potassium replacement completed or 30 min after intravenous potassium replacement.POCT-GLUCOSE [id number] 06:27:00 Test Item Value Reference Range Interpretation Comments POC-GLUCOSE METER 113 mg/dL 70-110 H TESTED AT [facility] 6720 (BEAKER) (test code = [facility] [place] 1538) [address] BASIC METABOLIC [id number] 02:30:00 Test Item Value Reference Range Interpretation [...] S NOT APPLICABLE FOR DIALYSIS PATIEN TS. [id number] 02:29:00 Test Item Value Reference Range Interpretation Comments PHOSPHORUS (BEAKER) (test code = 3.5 mg/dL 2.3-4.7 604) [id number] 02:29:00 Test Item Value Reference Range Interpretation Comments MAGNESIUM (BEAKER) (test code = 2.2 mg/dL 1.6-2.6 627) [id number] 02:29:00 Test Item Value Reference Range Interpretation Comments SODIUM (BEAKER) (test code = 381) 139 meq/L 136-145 CBC W/PLT COUNT & AUTO [id number] 02:21:00 Test Item Value Reference Range Interpretation [...] L 0.00-0.20 (test code = 417) 0.00POCT-GLUCOSE [id number] 00:44:00 Test Item Value Reference Range Interpretation Comments POC-GLUCOSE METER 121 mg/dL 70-110 H TESTED AT [facility] 6720 (BEAKER) (test code = [facility] [place] 1538) [address] [id number] 20:34:00 Test Item Value Reference Range Interpretation Comments SODIUM (BEAKER) (test code = 381) 138 meq/L 136-145 HEPATIC FUNCTION [id number] 20:34:00 Test Item Value Reference Range Interpretation [...] (test code = 15 U/L 6-55 347) [id number] 20:25:00 Test Item Value Reference Range Interpretation Comments AMMONIA (BEAKER) (test code = 348) 30 mol/L 18-72 POCT-GLUCOSE [id number] 19:58:00 Test Item Value Reference Range Interpretation Comments POC-GLUCOSE METER 125 mg/dL 70-110 H TESTED AT [facility] 6720 [facility] (test code = [facility] [place] 1538) [address] [id number] 14:30:00 Test Item Value Reference Range Interpretation Comments RPR SCREEN (BEAKER) (test code = Nonreactive Nonreactive 420) [id number] 13:35:00 Test Item Value Reference Range Interpretation Comments SODIUM (BEAKER) (test code = 381) 136 meq/L 136-145 [id number] 13:23:00 Test Item Value Reference Range Interpretation Comments CORTISOL, TOTAL (BEAKER) (test 11.7 ug/dL 3.7-19.4 code = 2755) POCT-GLUCOSE [id number] 13:22:00 Test Item Value Reference Range Interpretation Comments POC-GLUCOSE METER 117 mg/dL 70-110 H TESTED AT [facility] 6720 [facility] (test code = [facility] [place] 1538) [address] B-TYPE NATRIURETIC FACTOR (BNP)2016-12-26 11:55:00 Test Item Value Reference Range Interpretation Comments B-TYPE NATRIURETIC PEPTIDE (BEAKER) 115 pg/mL 0-100 H (test code = 700) [id number] 11:43:00 Test Item Value Reference Range Interpretation Comments MAGNESIUM (BEAKER) 2.5 mg/dL 1.6-2.6 Specimen slightly (test code = 627) hemolyzed OSMOLALITY, [id number] 04:32:00 Test Item Value Reference Range Interpretation Comments OSMOLALITY, SERUM (BEAKER) (test 303 mOsm/kg 275-295 H code = 615) LIPID [id number] 04:04:00 Test Item Value Reference Range Interpretation [...] 130-159 High 160-189 Very High >=190 Fasting [id number] 04:03:00 Test Item Value Reference Range Interpretation Comments PHOSPHORUS (BEAKER) (test code = 3.2 mg/dL 2.3-4.7 604) BASIC METABOLIC [id number] 04:03:00 Test Item Value Reference Range Interpretation [...] PATIEN TS. CBC W/PLT COUNT & AUTO [id number] 03:43:00 Test Item Value Reference Range Interpretation [...] K/ L 0.00-0.20 (test code = 417) [id number] 01:55:00 Test Item Value Reference Range Interpretation Comments POTASSIUM (BEAKER) (test code = 3.2 meq/L 3.5-5.1 L 379) [id number] 01:55:00 Test Item Value Reference Range Interpretation Comments MAGNESIUM (BEAKER) (test code = 1.7 mg/dL 1.6-2.6 627) TROPONIN [id number] 01:21:00 Test Item Value Reference Range Interpretation [...] acidosis, acute neurological disease, and persistent tachyarrhythmia.POCT-GLUCOSE [id number] 01:03:00 Test Item Value Reference Range Interpretation Comments POC-GLUCOSE METER 161 mg/dL 70-110 H TESTED AT [facility] [address] ([facility]) (test code = [facility] 1538) [id number] POCT-GLUCOSE [id number] 00:22:00 Test Item Value Reference Range Interpretation Comments POC-GLUCOSE METER 62 mg/dL 70-110 L Notified R Ravinder COTO/TESTED AT ([facility]) (test code = [facility] [address] 1538) [facility] 7703 0 HEMOGLOBIN [id number] 22:44:00 Test Item Value Reference Range Interpretation Comments HEMOGLOBIN A1C ([facility]) (test code = 5.0 % 4.3-6.1 368) TSH/FREE T4 IF [id number] 21:14:00 Test Item Value Reference Range Interpretation Comments THYROID STIMULATING HORMONE 2.66 uIU/mL 0.35-4.94 ([facility]) (test code = 772) VITAMIN B12 AND [id number] 21:14:00 Test Item Value Reference Range Interpretation Comments VITAMIN B12 ([facility]) (test code = 325 pg/mL 213-816 774) FOLATE ([facility]) (test code = 362) 11.9 ng/mL >=7.0 Effective 08/19/2014: Folate Reference Range ChangeNew: >=7.0 Previous: >=5.4CBC W/PLT COUNT & AUTO [id number] 19:39:00 Test Item Value Reference Range Interpretation Comments WHITE BLOOD CELL COUNT ([facility]) 5.3 K/ L 4.0-10.0 (test code = 775) RED BLOOD CELL COUNT ([facility]) 3.72 M/ L 4.00-5.00 L [...] L 0.00-0.20 (test code = 417) 0.00TROPONIN [id number] 19:31:00 Test Item Value Reference Range Interpretation [...] pg/mL 0-100 (test code = 700) LIPID [id number] 19:24:00 Test Item Value Reference Range Interpretation [...] 130-159 High 160-189 Very High >=190BASIC METABOLIC [id number] 19:24:00 Test Item Value Reference Range Interpretation [...] NOT APPLICABLE FOR DIALYSIS PATIEN TS. PROTHROMBIN [id number] 19:17:00 Test Item Value Reference Range Interpretation Comments PROTIME (BEAKER) (test code = 14.1 seconds 11.7-14.7 759) INR (BEAKER) (test code = 370) 1.1 <=5.9 RECOMMENDED COUMADIN/WARFARIN INR THERAPY RANGESSTANDARD DOSE: 2.0 - 3.0 Includes: PROPHYLAXIS for venous thrombosis, systemic embolization; TREATMENT for venous thrombosis and/or pulmonary embolus.HIGH RISK: Target INR is 2.5-3.5 for patients with mechanical heart valves.[id number] 19:17:00 Test Item Value Reference Range Interpretation Comments PARTIAL THROMBOPLASTIN TIME 24.9 seconds 22.5-36.0 (BEAKER) (test code = 760) URINALYSIS W/ [id number] 19:15:00 Test Item Value Reference Range Interpretation [...] code = < /HPF 519) WBC UA ([facility]) (test code = 1 /HPF 520) SQUAMOUS EPITHELIAL ([facility]) < /HPF (test code = 516) SOURCE([facility]) (test code = Urine, Thapa 6012) POCT-GLUCOSE [id number] 18:33:00 Test Item Value Reference Range Interpretation Comments POC-GLUCOSE METER 75 mg/dL 70-110 TESTED AT [facility] 6720 ([facility]) (test code = [place] [address] 1538)
[2023-01-16] MEDS ORDERED: NA CHLORIDE 0.9% 1,000 ML ONE (14:29)
[2023-01-16 14:52] LABS: Calcium Oxalate Crystals- Ur Few /HPF (None Seen); Specific Gravity 1.012 (1.005-1.030); Urine Bacteria <20 /HPF (<20); Urine Bilirubin NEGATIVE (Negative); Urine Blood 1+ (Negative); Urine Clarity Turbid (Clear); Urine Color Yellow (Yellow); Urine Glucose NEGATIVE (Negative); Urine Mucus 1+ /HPF (None Seen); Urine Protein TRACE (Negative); Urine RBC 21-50 /HPF (None Seen); Urine Urobilinogen Normal (Normal); Urine WBC Clump Occasional /HPF (None Seen); Urine pH 6.5 (5.0-7.0)
[2023-01-16 15:06] LABS: Absolute Lymphocytes (CBC) 2.5 K/uL (0.7-4.9); Hematocrit 28.6 % (36.0-45.0); Lymphocytes % 42.5 % (15.3-44.8); MCV 100.7 fL (80-100); MPV 6.4 fL (7.6-11.3); RBC Red Blood Cell Count 2.84 M/uL (3.86-4.86)
[2023-01-16 15:25] LABS: Albumin 1.9 g/dL (3.4-5.0); Bilirubin Total 0.2 mg/dL (0.2-1.0); Potassium 4.2 mEq/L (3.5-5.1); Protein, Total 6.4 g/dL (6.4-8.2); Troponin High Sensitivity 16.4 pg/mL (<58.9)
[2023-01-16] MEDS ORDERED: CEFEPIME 2 GM VIAL ONE (15:36)
[2023-01-16] MEDS ORDERED: NA CHLORIDE 0.9% 100 ML ONE ×2 (15:36→22:43)
[2023-01-16 15:44] LABS: Blood Morphology Comment NOT SEEN (NOT SEEN); Platelet Estimate DECR
[2023-01-16 16:16] LABS: Protime INR 1.57
--- NOTE | 2023-01-16 16:32 | RAD REPORT ---
EXAM DESCRIPTION: RAD - Chest Single View - 01/16/2023 4:24 pm CLINICAL HISTORY: hypotension Chest pain. COMPARISON: Chest Single View dated 10/31/2022; Chest Single View dated 10/30/2022; Chest Single View dated 10/26/2022; Chest Single View dated 10/22/2022 FINDINGS: Portable technique limits examination quality. Mild pulmonary edema. The heart is moderately enlarged. No displaced fractures. IMPRESSION: Mild CHF.
[2023-01-16] MEDS ORDERED: NA CHLORIDE 0.9% 250 ML ONE (18:54)
[2023-01-16] MEDS ORDERED: VANCOMYCIN 1 GM/VIAL ONE (18:54)
--- NOTE | 2023-01-16 19:39 | ER ---
Nurse's Notes [facility] Name: Rocio Quiroz Age: 78 yrs Sex: Female : 1945 Arrival Date: 01/16/2023 Time: 14:02 Bed 19 Private MD: Diagnosis: Congestive heart failure, urinary tract infection, lethargy, hypotension Presentation: 01/16 14:16 Chief complaint: EMS states: pt is from [facility]. toned out for low blood pressure kc6 and lethargy. Coronavirus screen: Vaccine status: Patient reports receiving the 2nd dose of the covid vaccine. At this time, the client does not indicate any symptoms associated with coronavirus-19. Ebola Screen: No symptoms or risks identified at this time. Initial Sepsis Screen: Does the patient meet any 2 criteria? Systolic BP < 90 mmHg. Does the patient have a suspected source of infection? No. Patient's initial sepsis screen is negative. Risk Assessment: Do you want to hurt yourself or someone else? Patient reports no desire to harm self or others. Onset of symptoms was January 16, 2023. 14:16 Method Of Arrival: EMS: [facility] kc6 14:16 Acuity: LINDSEY 3 kc6 14:21 Acuity: LINDSEY 2 ph Triage Assessment: 14:20 General: Appears in no apparent distress. comfortable, obese, unkempt, Behavior is kc6 calm, cooperative, appropriate for age. Pain: Denies pain. Historical: - Allergies: 14:18 Morphine; kc6 14:18 Iodine; kc6 14:18 Haldol; kc6 14:18 Latex, Natural Rubber; kc6 14:18 PENICILLINS; kc6 14:52 IV contrast; kc6 14:52 Ibuprofen; kc6 14:52 Demerol; kc6 14:52 Aspirin; kc6 - PMHx: 14:52 Anemia; Anxiety; Atrial Fib; Cerebral infarction; CHF; COPD; depressive disorder; kc6 Diverticulitis; DYSPHAGIA; Hypercholesterolemia; Hypertensive disorder; insomnia; Sleep Apnea; vitamin d deficiency; - Immunization history:: Client reports receiving the 2nd dose of the Covid vaccine, Flu vaccine is not up to date. - Social history:: Smoking status: Patient denies any tobacco usage or history of. - Family history:: not pertinent. Screenin:22 [facility] ED Fall Risk Assessment (Adult) History of falling in the last 3 months, kc6 including since admission No falls in past 3 months (0 pts) Confusion or Disorientation No (0 pts) Intoxicated or Sedated No (0 pts) Impaired Gait No (0 pts) Mobility Assist Device Used No (0 pt) Altered Elimination Yes (1 pt) Score/Fall Risk Level 0 - 2 = Low Risk Oriented to surroundings, Maintained a safe environment, Educated pt \T\ family on fall prevention, incl call for assistance when getting out of bed, Assessed \T\ reinforced patient's understanding of fall precautions, Hourly rounding (assess needs \T\ fall precautionary measures) done. Abuse screen: Denies threats or abuse. Denies injuries from another. Nutritional screening: No deficits noted. Tuberculosis screening: No symptoms or risk factors identified. Assessment: 14:20 Neuro: Mayer Agitation-Sedation Scale (RASS): 0 - Alert and Calm Level of kc6 Consciousness is awake, alert, obeys commands, Oriented to person, place, time, situation, Appropriate for age. Cardiovascular: Heart tones S1 S2 present Capillary refill < 3 seconds Rhythm is atrial fibrillation. Respiratory: Airway is patent Trachea midline Respiratory effort is even, unlabored, Respiratory pattern is regular, symmetrical. GI: No signs and/or symptoms were reported involving the gastrointestinal system. : No signs and/or symptoms were reported regarding the genitourinary system. Thapa in place to gravity drainage clamped Urine is cloudy. EENT: No signs and/or symptoms were reported regarding the EENT system. Derm: Skin is dry, Skin is pale, Skin temperature is warm Wound noted coccyx, right lower back and right gluteus berto Wound is appears to be open with serosanguinous and purulent drainage, and foul odor. Musculoskeletal: No signs and/or symptoms reported regarding the musculoskeletal system. Circulation, motion, and sensation intact. Capillary refill < 3 seconds. 14:30 Reassessment: pt is known to be a very difficult stick. stated the last time she was kc6 here she needed a PICC line. Alexandra Dillard RN at bedside with ultrasound machine attempting to start a line. 15:20 Reassessment: Patient appears in no apparent distress at this time. No changes from kc6 previously documented assessment. Patient and/or family updated on plan of care and expected duration. Pain level reassessed. Patient is alert, oriented x 3, equal unlabored respirations, skin warm/dry/pink. 16:20 Reassessment: Patient appears in no apparent distress at this time. No changes from kc6 previously documented assessment. Patient and/or family updated on plan of care and expected duration. Pain level reassessed. Patient is alert, oriented x 3, equal unlabored respirations, skin warm/dry/pink. 17:20 Reassessment: Patient appears in no apparent distress at this time. No changes from kc6 previously documented assessment. Patient and/or family updated on plan of care and expected duration. Pain level reassessed. Patient is alert, oriented x 3, equal unlabored respirations, skin warm/dry/pink. 18:20 Reassessment: Patient appears in no apparent distress at this time. No changes from kc6 previously documented assessment. Patient and/or family updated on plan of care and expected duration. Pain level reassessed. Patient is alert, oriented x 3, equal unlabored respirations, skin warm/dry/pink. 19:00 General: Appears in no apparent distress. comfortable, obese, well developed, Behavior pf1 is calm, cooperative, appropriate for age, quiet. 19:00 Pain: Complains of pain in headache pain of 8 Pain currently is 8 out of 10 on a pain pf1 scale. Neuro: Level of Consciousness is awake, alert, obeys commands, Oriented to person, place, time, situation, Reports headache frontal area, since today. Cardiovascular: Capillary refill < 3 seconds Patient's skin is warm and dry. Respiratory: Airway is patent Trachea midline Respiratory effort is even, unlabored, Respiratory pattern is regular, symmetrical. GI: Abdomen is round non-distended, obese, Bowel sounds present X 4 quads. : No signs and/or symptoms were reported regarding the genitourinary system. Thapa in place to gravity drainage clamped 10french inserted on dayshi. EENT: No signs and/or symptoms were reported regarding the EENT system. Derm: Wound noted coccyx Bruising that is dark purple, on buttocks. Musculoskeletal: Swelling present in bilateral legs/feet Patient stated is bed bound. 20:00 Reassessment: Patient appears in no apparent distress at this time. Patient and/or pf1 family updated on plan of care and expected duration. Pain level reassessed. Patient is alert, oriented x 3, equal unlabored respirations, skin warm/dry/pink. Patient states symptoms have improved. 21:00 Reassessment: Patient appears in no apparent distress at this time. Patient and/or pf1 family updated on plan of care and expected duration. Pain level reassessed. Patient is alert, oriented x 3, equal unlabored respirations, skin warm/dry/pink. Patient states feeling better. Patient states symptoms have improved. 22:00 Reassessment: Patient appears in no apparent distress at this time. No changes from pf1 previously documented assessment. Patient and/or family updated on plan of care and expected duration. Pain level reassessed. Patient is alert, oriented x 3, equal unlabored respirations, skin warm/dry/pink. Patient states feeling better. Patient states symptoms have improved. 23:00 Reassessment: Patient appears in no apparent distress at this time. No changes from pf1 previously documented assessment. Patient and/or family updated on plan of care and expected duration. Pain level reassessed. Patient is alert, oriented x 3, equal unlabored respirations, skin warm/dry/pink. Patient states feeling better. Patient states symptoms have improved. 23:10 General: Patient report given to RN. Shruthi. pf1 Vital Signs: 14:16 BP 77 / 52; Pulse 82; Resp 18 S; Temp 98.2(O); Pulse Ox 3 lpm NC; Weight 141 kg (M); kc6 Height 5 ft. 5 in. (R); 14:53 BP 95 / 57; Pulse 70; Resp 17 S; Pulse Ox 100% on 3 lpm NC; kc6 15:56 BP 90 / 55; Pulse 73; Resp 20 S; Pulse Ox 98% on 3 lpm NC; kc6 17:02 BP 96 / 73; Pulse 74; Resp 18 S; Pulse Ox 93% on 3 lpm NC; kc6 17:44 BP 102 / 64; Pulse 72; Resp 16 S; Pulse Ox 100% on 3 lpm NC; kc6 18:30 BP 98 / 74; Pulse 78; Resp 19 S; Pulse Ox 97% on 3 lpm NC; kc6 19:00 BP 112 / 67; Pulse 84; Resp 18; Pulse Ox 99% on 2 lpm NC; Pain 8/10; pf1 20:00 BP 136 / 92; Pulse 78; Resp 19; Pulse Ox 97% on 2 lpm NC; pf1 21:00 BP 122 / 94; Pulse 79; Resp 18; Pulse Ox 100% on R/A; pf1 22:00 BP 144 / 79; Pulse 85; Resp 20; Temp 99.2; Pulse Ox 100% on 2 lpm NC; Pain 4/10; pf1 23:00 BP 139 / 70; Pulse 87; Resp 20; Pulse Ox 100% on 2 lpm NC; Pain 2/10; pf1 14:16 Body Mass Index 51.73 (141.00 kg, 165.1 cm) kc6 19:00 Pain Scale: Adult pf1 22:00 Pain Scale: Adult pf1 23:00 Pain Scale: Adult pf1 ED Course: 14:07 Patient arrived in ED. kc6 14:14 Darius Daly MD is Attending Physician. rt 14:16 Kassandra Jacob, CICI is Primary Nurse. kc6 14:18 Triage completed. kc6 14:20 Arm band placed on. kc6 14:20 Patient has correct armband on for positive identification. Placed in gown. Bed in low kc6 position. Call light in reach. Side rails up X2. 14:21 Missed attempt(s): 24 gauge in right hand. kc6 14:45 Missed attempt(s): 22 gauge in right wrist. kc6 15:42 Inserted saline lock: 18 gauge in right upper arm, using aseptic technique. ,using ss aseptic technique. 18 gauge 10 CM POWERGLIDE MIDLINE inserted VIA US guided to R Upper arm. Pt tolerated well. Blood collected. 16:26 Chest Single View XRAY In Process Unspecified. EDMS 19:00 Thapa cath inserted, using sterile technique, by ED staff, balloon inflated, to gravity pf1 drainage, clamped. urine specimen collected. other 10french. 19:37 Attending Physician role handed off by Darius Daly MD sp4 19:37 Salinas Wu MD is Attending Physician. sp4 19:38 Osmar Ladd MD is Hospitalizing Provider. sp4 19:59 No provider procedures requiring assistance completed. pf1 20:27 COVID-19/FLU A+B Sent. pf1 23:37 Patient admitted, IV remains in place. pf1 Administered Medications: 15:40 Drug: NS 0.9% IV 1000 ml Route: IV; Rate: 1 bolus; Site: right forearm; kc6 16:40 Follow up: Response: No adverse reaction; IV Status: Completed infusion; IV Intake: kc6 1000ml 15:41 Drug: Cefepime IVPB 2 grams Route: IVPB; Rate: 200 ml/hr; Infused Over: 30 mins; Site: kc6 right forearm; 16:41 Follow up: Response: No adverse reaction; IV Status: Completed infusion; IV Intake: kc6 250ml 20:00 Drug: vancoMYCIN IVPB 1 grams Route: IVPB; Infused Over: 2 hrs; Site: right upper arm; pf1 22:00 Follow up: Response: No adverse reaction; Marked relief of symptoms; IV Status: pf1 Completed infusion; IV Intake: 250ml 22:49 Follow up: Response: No adverse reaction; Marked relief of symptoms pf1 Medication: 23:37 VIS not applicable for this client. pf1 Intake: 16:40 IV: 1000ml; Total: 1000ml. kc6 16:41 IV: 250ml; Total: 1250ml. kc6 22:00 IV: 250ml; Total: 1500ml. pf1 Output: 23:33 Urine: 600ml (Thapa); Total: 600ml. pf1 Outcome: 19:39 Decision to Hospitalize by Provider. sp4 23:54 Admitted to Med/surg accompanied by tech, via stretcher, room 211, with chart, Report pf1 called to CICI Hawkins 23:54 Condition: stable 23:54 Instructed on the need for admit, Demonstrated understanding of instructions. 23:55 Patient left the ED. pf1 Signatures: Dispatcher [employer] EDCA Alexandra Dillard RN RN ss Hall, Patricia, RN RN ph Campbell, Kaitlyn, RN RN kc6 [place], Ryan, MD MD rt Traci bolden RN RN pf1 Salinas Wu MD MD sp4 Corrections: (The following items were deleted from the chart) 15:06 14:20 Cardiovascular: Capillary refill < 3 seconds kc6 kc6 17:41 14:20 Derm: No signs and/or symptoms reported regarding the dermatologic system. Skin kc6 is dry, Skin is pale, Skin temperature is warm kc6 17:42 14:20 Derm: No signs and/or symptoms reported regarding the dermatologic system. Skin kc6 is dry, Skin is pale, Skin temperature is warm Wound noted coccyx, right lower back and right gluteus berto Wound is appears to be open with redness, drainage, and foul odor. kc6 17:51 14:20 Musculoskeletal: No signs and/or symptoms reported regarding the musculoskeletal kc6 system. Circulation, motion, and sensation intact. Capillary refill < 3 seconds, kc6 17:51 14:20 Derm: No signs and/or symptoms reported regarding the dermatologic system. Skin kc6 is dry, Skin is pale, Skin temperature is warm Wound noted coccyx, right lower back and right gluteus berto Wound is appears to be open with serosanguinous and purulent drainage, and foul odor. kc6 17:51 14:30 Reassessment: pt is know to be a very difficult stick. stated the last time she kc6 was here she needed a PICC line. Alexandra Dillard RN at bedside with ultrasound machine attempting to start a line. kc6 17:52 14:16 Chief complaint: EMS states: pt is from [facility]. reports low blood pressure kc6 and lethargy kc6
--- NOTE | 2023-01-16 19:40 | EDPHYS ---
Physician Documentation [facility] Name: Rocio Quiroz Age: 78 yrs Sex: Female : 1945 Arrival Date: 01/16/2023 Time: 14:02 Bed 19 Private MD: ED Physician Salinas Wu HPI: 01/16 17:37 This 78 yrs old Female presents to ER via EMS with complaints of hypotension, lethargy. rt 17:37 Patient presents to the ED from intermediate for reported hypotension, generalized rt weakness, supposes lethargy. Patient has had this multiple times with sepsis due to UTI. She does have a chronic indwelling Thapa catheter. She was initially hypotensive to about 70 systolic. This improved modestly with IV fluids. She denies pain, other acute complaints at this time. Symptoms are severe in severity, no other aggravating or alleviating factors.. Historical: - Allergies: 14:18 Morphine; kc6 14:18 Iodine; kc6 14:18 Haldol; kc6 14:18 Latex, Natural Rubber; kc6 14:18 PENICILLINS; kc6 14:52 IV contrast; kc6 14:52 Ibuprofen; kc6 14:52 Demerol; kc6 14:52 Aspirin; kc6 - PMHx: 14:52 Anemia; Anxiety; Atrial Fib; Cerebral infarction; CHF; COPD; depressive disorder; kc6 Diverticulitis; DYSPHAGIA; Hypercholesterolemia; Hypertensive disorder; insomnia; Sleep Apnea; vitamin d deficiency; - Immunization history:: Client reports receiving the 2nd dose of the Covid vaccine, Flu vaccine is not up to date. - Social history:: Smoking status: Patient denies any tobacco usage or history of. - Family history:: not pertinent. ROS: 17:37 Cardiovascular: Negative for chest pain, palpitations, and edema, Respiratory: Negative rt for shortness of breath, cough, wheezing, and pleuritic chest pain, Abdomen/GI: Negative for abdominal pain, nausea, vomiting, diarrhea, and constipation, MS/Extremity: Negative for injury and deformity, Skin: Negative for injury, rash, and discoloration. 17:37 Constitutional: Positive for malaise, Negative for fever. 17:37 Neuro: Positive for weakness, Confusion. Exam: 17:37 Constitutional: This is a well developed, well nourished patient who is awake, alert, rt and in no acute distress. Head/Face: Normocephalic, atraumatic. Chest/axilla: Normal chest wall appearance and motion. Nontender with no deformity. No lesions are appreciated. Cardiovascular: Regular rate and rhythm with a normal S1 and S2. No gallops, murmurs, or rubs. Normal PMI, no JVD. No pulse deficits. Respiratory: Lungs have equal breath sounds bilaterally, clear to auscultation and percussion. No rales, rhonchi or wheezes noted. No increased work of breathing, no retractions or nasal flaring. Abdomen/GI: Soft, non-tender, with normal bowel sounds. No distension or tympany. No guarding or rebound. No evidence of tenderness throughout. 17:37 Musculoskeletal/extremity: Lymphedema to bilateral lower extremities. 17:41 ECG was reviewed by the Attending Physician. rt Vital Signs: 14:16 BP 77 / 52; Pulse 82; Resp 18 S; Temp 98.2(O); Pulse Ox 3 lpm NC; Weight 141 kg (M); kc6 Height 5 ft. 5 in. (R); 14:53 BP 95 / 57; Pulse 70; Resp 17 S; Pulse Ox 100% on 3 lpm NC; 6 15:56 BP 90 / 55; Pulse 73; Resp 20 S; Pulse Ox 98% on 3 lpm NC; kc6 17:02 BP 96 / 73; Pulse 74; Resp 18 S; Pulse Ox 93% on 3 lpm NC; kc6 17:44 BP 102 / 64; Pulse 72; Resp 16 S; Pulse Ox 100% on 3 lpm NC; kc6 18:30 BP 98 / 74; Pulse 78; Resp 19 S; Pulse Ox 97% on 3 lpm NC; kc6 19:00 BP 112 / 67; Pulse 84; Resp 18; Pulse Ox 99% on 2 lpm NC; Pain 8/10; pf1 20:00 BP 136 / 92; Pulse 78; Resp 19; Pulse Ox 97% on 2 lpm NC; pf1 21:00 BP 122 / 94; Pulse 79; Resp 18; Pulse Ox 100% on R/A; pf1 22:00 BP 144 / 79; Pulse 85; Resp 20; Temp 99.2; Pulse Ox 100% on 2 lpm NC; Pain 4/10; pf1 23:00 BP 139 / 70; Pulse 87; Resp 20; Pulse Ox 100% on 2 lpm NC; Pain 2/10; pf1 14:16 Body Mass Index 51.73 (141.00 kg, 165.1 cm) kc6 19:00 Pain Scale: Adult pf1 22:00 Pain Scale: Adult pf1 23:00 Pain Scale: Adult pf1 MDM: 14:15 Patient medically screened. rt 18:35 Differential Diagnosis Sepsis, pneumonia, UTI, infected decubitus ulcer. Data reviewed: rt vital signs, nurses notes, lab test result(s), EKG, radiologic studies. Consideration of Admission/Observation Patient was admitted/placed on observation. Management of patient was discussed with the following: Hospitalist: Agrees to admit. Care significantly affected by the following chronic conditions: Congestive Heart Failure. Counseling: I had a detailed discussion with the patient and/or guardian regarding: the historical points, exam findings, and any diagnostic results supporting the discharge/admit diagnosis, lab results, radiology results, the need for further work-up and treatment in the hospital. Response to treatment: the patient's symptoms have markedly improved after treatment. ED course: Patient was noted to be hypotensive, however, she has significant CHF, is volume responsive. I believe that the risk of further fluid resuscitation is likely to diminish the patient's respiratory status and cause harm, therefore, 30 cc/kg were not given.. 01/16 14:21 Order name: Blood Culture Adult (2) rt 01/16 14:21 Order name: CBC with Diff; Complete Time: 19:37 rt 01/16 14:21 Order name: CMP; Complete Time: 15:40 rt 01/16 14:21 Order name: Lactate w/ 2H reflex if indic.; Complete Time: 16:16 rt 01/16 14:21 Order name: Protime (+inr); Complete Time: 16:33 rt 01/16 14:21 Order name: Ptt, Activated; Complete Time: 16:33 rt 01/16 14:21 Order name: Urinalysis w/ reflexes; Complete Time: 15:25 rt 01/16 14:21 Order name: Troponin High Sensitivity; Complete Time: 15:40 rt 01/16 14:21 Order name: BNP; Complete Time: 15:40 rt 01/16 15:03 Order name: Urine Culture EDDE 01/16 15:08 Order name: Glucose, Ancillary Testing; Complete Time: 15:25 EDMS 01/16 15:44 Order name: Manual Differential; Complete Time: 19:37 EDMS 01/16 19:54 Order name: COVID-19/FLU A+B sb4 01/16 21:10 Order name: COVID-19/FLU A+B EDMS 01/16 14:21 Order name: Chest Single View XRAY; Complete Time: 16:36 rt 01/16 14:21 Order name: EKG; Complete Time: 14:22 rt 01/16 14:21 Order name: Accucheck; Complete Time: 14:51 rt 01/16 14:21 Order name: Cardiac monitoring; Complete Time: 14:22 rt 01/16 14:21 Order name: Cath; Complete Time: 14:51 rt 01/16 14:21 Order name: EKG - Nurse/Tech; Complete Time: 14:51 rt 01/16 14:21 Order name: IV Saline Lock - Large Bore; Complete Time: 15:41 rt 01/16 14:21 Order name: Labs collected and sent; Complete Time: 15:41 rt 01/16 14:21 Order name: O2 Per Protocol; Complete Time: 14:22 rt 01/16 14:21 Order name: O2 Sat Monitoring; Complete Time: 14:22 rt 01/16 14:21 Order name: Vital Signs; Complete Time: 14:22 rt EC:43 Rate is 72 beats/min. Rhythm is irregularly irregular, A fib with No ectopy. QRS [place] rt is Normal. QRS interval is normal. QT interval is normal. No Q waves. T waves are Normal. Administered Medications: 15:40 Drug: NS 0.9% IV 1000 ml Route: IV; Rate: 1 bolus; Site: right forearm; kc6 16:40 Follow up: Response: No adverse reaction; IV Status: Completed infusion; IV Intake: kc6 1000ml 15:41 Drug: Cefepime IVPB 2 grams Route: IVPB; Rate: 200 ml/hr; Infused Over: 30 mins; Site: kc6 right forearm; 16:41 Follow up: Response: No adverse reaction; IV Status: Completed infusion; IV Intake: kc6 250ml 20:00 Drug: vancoMYCIN IVPB 1 grams Route: IVPB; Infused Over: 2 hrs; Site: right upper arm; pf1 22:00 Follow up: Response: No adverse reaction; Marked relief of symptoms; IV Status: pf1 Completed infusion; IV Intake: 250ml 22:49 Follow up: Response: No adverse reaction; Marked relief of symptoms pf1 Disposition Summary: 01/16/23 19:39 Hospitalization Ordered Hospitalization Status: Inpatient Admission sp4 Provider: Osmar Ladd sp4 Condition: Stable sp4 Problem: new sp4 Symptoms: have improved sp4 Bed/Room Type: Standard sp4 Location: Telemetry/MedSurg (Inpatient)(01/16/23 22:40) cg Room Assignment: [facility](01/16/23 22:40) cg Diagnosis - Congestive heart failure, urinary tract infection, lethargy, hypotension sp4 Forms: - Medication Reconciliation Form sp4 - SBAR form sp4 Critical care time excluding procedures: 18:40 Critical care time: Bedside Care: 30 minutes, Consultation: 5 minutes. Total time: 35 rt minutes Signatures: Dispatcher [employer] Citlalli Lua RN RN cg Campbell, Kaitlyn, RN RN kc6 Darius Daly MD MD rt Traci bolden RN RN pf1 Salinas Wu MD MD sp4 Corrections: (The following items were deleted from the chart) 20:32 19:39 Telemetry/MedSurg (Inpatient) sp4 cg 20:32 19:39 sp4 cg 22:40 20:32 [facility] ER HOLD cg cg 22:40 20:32 ERHOLD- cg cg
--- NOTE | 2023-01-16 19:53 | P.HP ---
Certification for Inpatient Patient admitted to: Inpatient With expected LOS: <2 Midnights Patient will require the following post-hospital care: None Practitioner: I am a practitioner with admitting privileges, knowledge of patient current condition, hospital course, and medical plan of care. Services: Services provided to patient in accordance with Admission requirements found in Title 42 Section 412.3 of the Code of Federal Regulations Patient History Date of Service: 01/16/23 Primary Care Provider: Melita Reason for admission: UTI, Severe Sepsis History of Present Illness: Patient is a 78-year-old female with past medical history of paroxysmal A. fib on chronic anticoagulation, chronic diastolic congestive heart failure, previous CVA with left-sided weakness, COPD, hypertension, hyperlipidemia, and lymphedema who [facility] evaluation of lethargy and hypotension. She was noted to have a blood pressured of 77/52 upon arrival and was found to have a UTI (has indwelling jaquez catheter). 1L fluid bolus was given which did improve her blood pressure. 30 cc/kg bolus was held given her history of CHF with mild pulmonary edema on CXR. No white count or elevation in lactate. Vitals have otherwise been stable. She was given cefepime and vancomyin in the emergency department. Patient will be admitted for further management. Allergies iodine Allergy (Verified 12/22/16 01:47) Hives/Rash latex Allergy (Verified 12/22/16 01:47) Hives/Rash Latex, Natural Rubber Allergy (Verified 02/01/18 20:29) Itching/Hives/Rash morphine Allergy (Verified 12/22/16 01:47) Hives Penicillins Allergy (Verified 12/22/16 01:47) Hives/Rash haloperidol [From Haldol] Adverse Reaction (Verified 12/22/16 01:47) anxiety haloperidol lactate [From Haldol] Adverse Reaction (Verified 12/22/16 01:47) anxiety Home medications list reviewed: Yes Home Medications: Acetaminophen [Tylenol] 2 tab PO Q6H PRN 06/18/22 Albuterol Sulfate [Ventolin Hfa] 2 puff IN Q6H PRN 06/18/22 Ascorbic Acid 500 mg PO DAILY 06/18/22 Aspirin Chewable [Aspirin Chewable*] 1 tab PO DAILY 06/18/22 Docusate Sodium 1 tab PO BID 06/18/22 Duloxetine HCl 2 cap PO BEDTIME 06/18/22 Menthol [Biofreeze] 1 markie TOP Q6H PRN 06/18/22 Pantoprazole Sodium [Protonix] 1 tab PO DAILY 06/18/22 Polysorbate 80/Glycerin [Refresh Dry Eye Therapy Drops] 2 drop OP QID 06/18/22 Sennosides [Senokot] 1 tab PO BID 06/18/22 Temazepam 22.5 mg PO BEDTIME 06/18/22 Zinc Gluconate [Zinc] 220 mg PO DAILY 06/18/22 Atorvastatin Calcium [Lipitor] 40 mg PO BEDTIME tab 06/20/22 Apixaban [Eliquis] 5 mg PO BID 08/22/22 Metoprolol Tartrate [Lopressor*] 25 mg PO BID 6AM 6PM tab 08/22/22 Aripiprazole [Abilify] 10 mg PO BEDTIME 10/23/22 Buspirone HCl [Buspar] 15 mg PO TID 10/23/22 Carboxymethylcellulose Sodium [Refresh Plus] 1 each OP QIDP PRN 10/23/22 Ferrous Sulfate [Ferrous Sulfate*] 325 mg PO DAILY 10/23/22 Furosemide [Lasix*] 40 mg PO BIDL 10/23/22 Gabapentin [Neurontin*] 100 mg PO TID 10/23/22 Hydrocodone 5/APAP 325 [[place] 5/325*] 1 tab PO Q8HP PRN 10/23/22 Ipratropium/Albuterol Sulfate [Iprat-Albut 0.5-3(2.5) mg/3 ml] 3 ml IH QID 10/23/22 Lidocaine 4% Patch [Lidoderm 5% Patch*] 1 patch TD DAILY 10/23/22 Multivitamin [Multiple Vitamins] 1 each PO DAILY 10/23/22 Polyethylene Glycol 3350 [Miralax] 17 gm PO DAILYPRN PRN 10/23/22 Potassium Chloride [Klor-Con 10] 10 meq PO BID 10/23/22 Triamcinolone Acetonide 15 gm TP BID 10/23/22 guaiFENesin [Guaifenesin ER] 600 mg PO Q12HP PRN 10/23/22 hydrOXYzine HCL [Atarax*] 25 mg PO TID 10/23/22 Amiodarone HCl [Cordarone*] 200 mg PO BID tab 11/01/22 Meropenem [Merrem 1 GM/100 ML NS IVPB] 1 gm IV Q8H 7 Days #2000 ml 11/01/22 - Past Medical/Surgical History Diabetic: No -: Hypertension -: COPD -: CHF chronic diastolic -: Atrial fibrillation on anticoagulation -: Depression with anxiety -: Morbid obesity -: Obstructive sleep apnea -: Lymphedema -: Bedbound post bilateral knee replacements -: CVA -: Hysterectomy -: Appendectomy -: Bilateral knee replacement Psychosocial/ Personal History: Currently resides at [facility], is primarily bedbound gets around by wheelchair. - Family History Mother Notes: alzheimers - Social History Smoking Status: Former smoker Alcohol use: No CD- Drugs: No Caffeine use: Yes Place of Residence: [place] Review of Systems General: Weakness, Malaise Physical Examination - Vital Signs Temperature: 98.2 F Blood Pressure: 98/74 Pulse: 78 Respirations: 19 Pulse Ox (%): 97 (3L NC) - Physical Exam General: Alert, In no apparent distress HEENT: Atraumatic, EOMI, Sclerae nonicteric Neck: Supple, 2+ carotid pulse no bruit Respiratory: Clear to auscultation bilaterally, Normal air movement Cardiovascular: Regular rate/rhythm, Normal S1 S2 Gastrointestinal: Normal bowel sounds, No tenderness Musculoskeletal: No tenderness Integumentary: No rashes Neurological: Normal speech, Normal affect Urinary: Jaquez catheter - Studies Laboratory Data (last 24 hrs) 01/16/23 15:36: PT 17.3 H, INR 1.57, APTT 35.5 01/16/23 14:57: Sodium 137, Potassium 4.2, BUN 31 H, Creatinine 1.28 H, Glucose 94, Total Bilirubin 0.2, AST 17, ALT 15, Alkaline Phosphatase 149 H 01/16/23 14:57: WBC 5.90, Hgb 9.5 L, Hct 28.6 L, Plt Count 149 L Assessment and Plan - Problems (Diagnosis) (1) UTI (urinary tract infection) Current Visit: Yes Status: Acute Qualifiers: Urinary tract infection type: catheter-associated UTI Indwelling urinary catheter type: indwelling urethral catheter Encounter type: initial encounter Qualified Code(s): T83.511A - Infection and inflammatory reaction due to indwelling urethral catheter, initial encounter; N39.0 - Urinary tract infection, site not specified (2) Anemia Current Visit: Yes Status: Chronic Qualifiers: Anemia type: unspecified type Qualified Code(s): D64.9 - Anemia, unspecified (3) Atrial fibrillation Onset Date: 07/22/16 Current Visit: Yes Status: Chronic Qualifiers: Atrial fibrillation type: paroxysmal Qualified Code(s): I48.0 - Paroxysmal atrial fibrillation (4) CHF (congestive heart failure) Current Visit: Yes Status: Chronic Qualifiers: Heart failure type: unspecified Heart failure chronicity: chronic Qualified Code(s): I50.9 - Heart failure, unspecified (5) COPD (chronic obstructive pulmonary disease) Current Visit: Yes Status: Chronic Qualifiers: COPD type: unspecified COPD Qualified Code(s): J44.9 - Chronic obstructive pulmonary disease, unspecified (6) Hypotension Current Visit: Yes Status: Acute Qualifiers: Hypotension type: unspecified hypotension type Qualified Code(s): I95.9 - Hypotension, unspecified - Plan Patient is admitted for further management of UTI, weakness, hypotension. Hypotension resolved after IV fluids. No other SIRS criteria met. Previous urine cultures have grown proteus ESBL with sensitivity to meropenem. Follow current culture. Physical therapy consulted. Continue home eliquis for afib/DVT prophylaxis. Hold off on additional fluids at this time as her chest xray is already showing mild CHF. Monitor BP closely. HOLD all home antihypertensives. Will give albumin if needed. Discharge Plan: Long Term Plan to discharge in: Greater than 2 days - Advance Directives Does patient have a Living Will: Yes Does patient have a Durable POA for Healthcare: Yes - Code Status/Comfort Care Code Status Assessed: Yes Code Status: Full Code Physician Review: Patient Assessed, Agree with Above Assessment and Plan Critical Care: No Time Spent Managing Pts Care (In Minutes): 50
[2023-01-16 21:10] LABS: SARS-COV-2 RT PCR NEGATIVE (NEGATIVE)
[2023-01-16 21:49] VITALS: BMI 51.7
[2023-01-16] MEDS: Meropenem 1,000 MG in NA CHLORIDE 0.9% 100 ML IV SCH (22:13)
[2023-01-16] MEDS ORDERED: ACETAMINOPHEN 500 MG TAB PO PRN (22:13)
[2023-01-16] MEDS ORDERED: TEMAZEPAM 15 MG CAP PO PRN (22:29)
[2023-01-16] MEDS ORDERED: HYDROCODONE/APAP 5/325 MG TAB ONE (22:43)
[2023-01-16] MEDS ORDERED: Meropenem 1000 MG/VIAL IV ONE (22:43)
[2023-01-16] MEDS: HYDROCODONE/APAP 5/325 MG TAB PO PRN (22:45)
[2023-01-17 03:26] LABS: Absolute Lymphocytes (CBC) 2.2 K/uL (0.7-4.9); Hematocrit 26.6 % (36.0-45.0); Lymphocytes % 37.3 % (15.3-44.8); MCV 100.6 fL (80-100); MPV 6.7 fL (7.6-11.3); RBC Red Blood Cell Count 2.65 M/uL (3.86-4.86)
[2023-01-17 03:41] LABS: Magnesium 2.1 mg/dL (1.6-2.4); Phosphorus 3.1 mg/dL (2.5-4.9); Potassium 3.8 mEq/L (3.5-5.1)
[2023-01-17] MEDS: ONDANSETRON 4 MG/2 ML VIAL IV PRN ×2 (04:18→20:10)
[2023-01-17] MEDS ORDERED: PNEUMOCOCCAL VACCINE 0.5 ML IMVAC ONE (08:00)
[2023-01-17] MEDS ORDERED: POTASSIUM 25 MEQ EFFERV TAB PO ONE (08:00)
[2023-01-17] MEDS: Meropenem 1,000 MG in NA CHLORIDE 0.9% 100 ML IV SCH ×2 (08:41→16:09)
[2023-01-17] MEDS: APIXABAN 5 MG TABLET PO SCH ×2 (08:41→20:09)
[2023-01-17] MEDS: HYDROCODONE/APAP 5/325 MG TAB PO PRN ×2 (08:43→16:09)
--- NOTE | 2023-01-17 13:56 | EKG ---
Test Date: 2023-01-16 Test Time: 14:47:16 Systems Checkout Mechanic: ADRIAN MEASUREMENT RESULTS: Intervals: Rate: 72 [place]: QRSD: 86 QT: 388 QTc: 424 [place]: P: [place]: QRS: 5 T: 71 INTERPRETIVE STATEMENTS: Atrial fibrillation Inferior infarct, age undetermined Abnormal ECG Compared to ECG 10/22/2022 09:48:28 Ventricular premature complex(es) no longer present Myocardial infarct finding still present Electronically Signed On 01-17-23 13:54:20 CDT by Elan Cobb
[2023-01-18] MEDS: Meropenem 1,000 MG in NA CHLORIDE 0.9% 100 ML IV SCH ×3 (01:25→16:42)
[2023-01-18] MEDS: HYDROCODONE/APAP 5/325 MG TAB PO PRN ×3 (01:25→17:35)
[2023-01-18 03:59] LABS: Absolute Lymphocytes (CBC) 1.3 K/uL (0.7-4.9); Hematocrit 22.8 % (36.0-45.0); Lymphocytes % 32.3 % (15.3-44.8); MCV 100.8 fL (80-100); RBC Red Blood Cell Count 2.26 M/uL (3.86-4.86)
[2023-01-18 04:08] LABS: Potassium 4.1 mEq/L (3.5-5.1)
[2023-01-18] MEDS: APIXABAN 5 MG TABLET PO SCH ×2 (08:57→21:22)
[2023-01-18] MEDS ORDERED: NA CHLORIDE 0.9% 100 ML ONE (08:59)
[2023-01-18] MEDS ORDERED: Meropenem 1000 MG/VIAL IV ONE (08:59)
[2023-01-18 16:10] LABS: Absolute Lymphocytes (CBC) 1.3 K/uL (0.7-4.9); Hematocrit 23.2 % (36.0-45.0); Lymphocytes % 35.3 % (15.3-44.8); MCV 101.3 fL (80-100); MPV 6.4 fL (7.6-11.3); RBC Red Blood Cell Count 2.29 M/uL (3.86-4.86)
[2023-01-18] MEDS ORDERED: ACETAMINOPHEN 500 MG TAB PO PRN (20:58)
[2023-01-18] MEDS ORDERED: HYDROCODONE/APAP 5/325 MG TAB PO ONE (21:01)
[2023-01-19] MEDS: Meropenem 1,000 MG in NA CHLORIDE 0.9% 100 ML IV SCH ×2 (00:36→08:26)
[2023-01-19 04:44] LABS: Protime INR 1.35
[2023-01-19 04:45] LABS: Absolute Lymphocytes (CBC) 1.9 K/uL (0.7-4.9); Hematocrit 24.4 % (36.0-45.0); MCV 100.5 fL (80-100); MPV 6.3 fL (7.6-11.3); RBC Red Blood Cell Count 2.43 M/uL (3.86-4.86)
[2023-01-19] MEDS: HYDROCODONE/APAP 5/325 MG TAB PO PRN ×3 (06:04→20:06)
[2023-01-19 07:43] LABS: Albumin 1.6 g/dL (3.4-5.0); Bilirubin Total 0.2 mg/dL (0.2-1.0); Magnesium 2.3 mg/dL (1.6-2.4); Phosphorus 2.7 mg/dL (2.5-4.9); Potassium 4.1 mEq/L (3.5-5.1); Protein, Total 5.4 g/dL (6.4-8.2)
[2023-01-19] MEDS: APIXABAN 5 MG TABLET PO SCH ×2 (08:26→20:12)
[2023-01-19] MEDS ORDERED: NA CHLORIDE 0.9% 250 ML ONE (09:24)
--- NOTE | 2023-01-19 10:13 | RAD REPORT ---
EXAM DESCRIPTION: RAD - Chest Single View - 01/19/2023 5:13 am CLINICAL HISTORY: pneumonia Chest pain. COMPARISON: Chest Single View dated 01/16/2023; Chest Single View dated 10/31/2022; Chest Single View dated 10/30/2022; Chest Single View dated 10/26/2022 FINDINGS: Portable technique limits examination quality. Mild interstitial pulmonary edema. The heart is moderately enlarged. No displaced fractures. IMPRESSION: Mild CHF, stable since 01/16/2023.
--- NOTE | 2023-01-19 10:52 | P.PN ---
Subjective Date of Service: 01/17/23 Subjective: No new changes, No C/O voiced, Improving Patient is clinically doing well. Monitoring H&H and white blood cell count which is stable. Blood cultures are pending. Review of Systems 10-point ROS is otherwise unremarkable Physical Examination - Vital Signs Temperature: 97.8 F Blood Pressure: 115/65 Pulse: 87 Respirations: 16 Pulse Ox (%): 96 - Physical Exam General: Alert, In no apparent distress, Oriented x3, Obese Respiratory: Clear to auscultation bilaterally, Normal air movement Cardiovascular: Regular rate/rhythm, Normal S1 S2 Gastrointestinal: Normal bowel sounds, Soft and benign, Non-distended, No tenderness Musculoskeletal: No clubbing, No swelling, No tenderness Neurological: Sensation intact, Cranial nerves 3-12 intact, Abnormal strength - Studies Microbiology Data (last 24 hrs): 01/16/23 14:30 Clean Catch Urine [place] Count - Final >100,000 CFU/ML. 01/16/23 14:30 Clean Catch Urine - Final Escherichia Coli Esbl Providencia Stuartii Medications List Reviewed: Yes Assessment & Plan - Problems (Diagnosis) (1) UTI (urinary tract infection) Current Visit: Yes Status: Acute Qualifiers: Urinary tract infection type: catheter-associated UTI Indwelling urinary catheter type: indwelling urethral catheter Encounter type: initial encounter Qualified Code(s): T83.511A - Infection and inflammatory reaction due to indwe lling urethral catheter, initial encounter; N39.0 - Urinary tract infection, site not specified (2) Anemia Current Visit: Yes Status: Chronic Qualifiers: Anemia type: unspecified type Qualified Code(s): D64.9 - Anemia, unspecified (3) Atrial fibrillation Onset Date: 07/22/16 Current Visit: Yes Status: Chronic Qualifiers: Atrial fibrillation type: paroxysmal Qualified Code(s): I48.0 - Paroxysmal atrial fibrillation (4) CHF (congestive heart failure) Current Visit: Yes Status: Chronic Qualifiers: Heart failure type: unspecified Heart failure chronicity: chronic Qualified Code(s): I50.9 - Heart failure, unspecified (5) COPD (chronic obstructive pulmonary disease) Current Visit: Yes Status: Chronic Qualifiers: COPD type: unspecified COPD Qualified Code(s): J44.9 - Chronic obstructive pulmonary disease, unspecified (6) Hypertension Current Visit: Yes Status: Chronic (7) Right middle cerebral artery stroke Current Visit: No Status: Acute (8) Sleep apnea Current Visit: No Status: Acute (9) Depression with anxiety Onset Date: 07/22/16 Current Visit: No Status: Chronic (10) Obstructive sleep apnea Onset Date: 07/22/16 Current Visit: No Status: Chronic - Plan Plan: 1. Continue with IV hydration 2. Continue with monitoring H&H 3. Continue with IV antibiotics 4. Wound care for sacral decubitus ulcer 5. Elevate left heel as patient has a pressure ulcer on the left heel that was here present on arrival 6. Change Thapa catheter 7. Infectious disease consultation 8. Bladder irrigation 9. GI DVT prophylaxis - Advance Directives Does patient have a Living Will: Yes Does patient have a Durable POA for Healthcare: Yes - Code Status/Comfort Care Code Status: Full Code Physician Review: Patient Assessed, Agree with Above Assessment and Plan
--- NOTE | 2023-01-19 11:48 | P.CNS ---
Date of Consult: 01/19/23 Reason for Consult: UTI E.coli ESBL; CR [facility] Primary Care Provider: Melita Chief Complaint: UTI, Severe Sepsis History of Present Illness: Patient is a 78 yo female with a past medical history significant for atrial fibrillation, CVA with left sided weakness, HTN, COPD, HLD and lymphedema who [facility] for lethargy and hypotension. Patient has a chronic indwelling urinary catheter and was found to have a UTI [UA: LE 500, RBC 21-50, WBC >50]. Urine culture was sent and patient placed on empiric IV antibiotic Merrem. Urine culture revealing E. coli ESBL & carbapenem resistant Providencia stuartii and ID was consulted. Patient is currently laying in bed eating lunch, not in distress, on 2L NC. Allergies iodine Allergy (Verified 12/22/16 01:47) Hives/Rash latex Allergy (Verified 12/22/16 01:47) Hives/Rash Latex, Natural Rubber Allergy (Verified 02/01/18 20:29) Itching/Hives/Rash morphine Allergy (Verified 12/22/16 01:47) Hives Penicillins Allergy (Verified 12/22/16 01:47) Hives/Rash haloperidol [From Haldol] Adverse Reaction (Verified 12/22/16 01:47) anxiety haloperidol lactate [From Haldol] Adverse Reaction (Verified 12/22/16 01:47) anxiety Home medications list reviewed: Yes Home Medications: Acetaminophen [Tylenol] 2 tab PO Q6H PRN 06/18/22 Albuterol Sulfate [Ventolin Hfa] 2 puff IN Q6H PRN 06/18/22 Ascorbic Acid 500 mg PO DAILY 06/18/22 Aspirin Chewable [Aspirin Chewable*] 1 tab PO DAILY 06/18/22 Docusate Sodium 1 tab PO BID 06/18/22 Duloxetine HCl 2 cap PO BEDTIME 06/18/22 Menthol [Biofreeze] 1 markie TOP Q6H PRN 06/18/22 Pantoprazole Sodium [Protonix] 1 tab PO DAILY 06/18/22 Polysorbate 80/Glycerin [Refresh Dry Eye Therapy Drops] 2 drop OP QID 06/18/22 Sennosides [Senokot] 1 tab PO BID 06/18/22 Temazepam 22.5 mg PO BEDTIME 06/18/22 Zinc Gluconate [Zinc] 220 mg PO DAILY 06/18/22 Atorvastatin Calcium [Lipitor] 40 mg PO BEDTIME tab 06/20/22 Apixaban [Eliquis] 5 mg PO BID 08/22/22 Metoprolol Tartrate [Lopressor*] 25 mg PO BID 6AM 6PM tab 08/22/22 Aripiprazole [Abilify] 10 mg PO BEDTIME 10/23/22 Buspirone HCl [Buspar] 15 mg PO TID 10/23/22 Carboxymethylcellulose Sodium [Refresh Plus] 1 each OP QIDP PRN 10/23/22 Ferrous Sulfate [Ferrous Sulfate*] 325 mg PO DAILY 10/23/22 Furosemide [Lasix*] 40 mg PO BIDL 10/23/22 Gabapentin [Neurontin*] 100 mg PO TID 10/23/22 Hydrocodone 5/APAP 325 [Bogard 5/325*] 1 tab PO Q8HP PRN 10/23/22 Ipratropium/Albuterol Sulfate [Iprat-Albut 0.5-3(2.5) mg/3 ml] 3 ml IH QID 10/23/22 Lidocaine 4% Patch [Lidoderm 5% Patch*] 1 patch TD DAILY 10/23/22 Multivitamin [Multiple Vitamins] 1 each PO DAILY 10/23/22 Polyethylene Glycol 3350 [Miralax] 17 gm PO DAILYPRN PRN 10/23/22 Potassium Chloride [Klor-Con 10] 10 meq PO BID 10/23/22 Triamcinolone Acetonide 15 gm TP BID 10/23/22 guaiFENesin [Guaifenesin ER] 600 mg PO Q12HP PRN 10/23/22 hydrOXYzine HCL [Atarax*] 25 mg PO TID 10/23/22 Amiodarone HCl [Cordarone*] 200 mg PO BID tab 11/01/22 Meropenem [Merrem 1 GM/100 ML NS IVPB] 1 gm IV Q8H 7 Days #2000 ml 11/01/22 - Past Medical/Surgical History Diabetic: No -: Hypertension -: COPD -: CHF chronic diastolic -: Atrial fibrillation on anticoagulation -: Depression with anxiety -: Morbid obesity -: Obstructive sleep apnea -: Lymphedema -: Bedbound post bilateral knee replacements -: CVA -: Hysterectomy -: Appendectomy -: Bilateral knee replacement Psychosocial/ Personal History: Currently resides at [facility], is primarily bedbound gets around by wheelchair. - Family History Mother Notes: alzheimers - Social History Smoking Status: Unknown if ever smoked Alcohol use: No CD- Drugs: No Caffeine use: Yes Place of Residence: [facility] Review of Systems 10-point ROS is otherwise unremarkable General: Weakness Genitourinary: As per HPI Musculoskeletal: Leg Pain (bilateral) Physical Examination Temp Pulse Resp BP Pulse Ox 97.8 F 87 16 115/65 96 01/19/23 10:52 01/19/23 10:52 01/19/23 10:52 01/19/23 10:52 01/19/23 10:52 General: Alert, In no apparent distress, Oriented x3 HEENT: Atraumatic, Normocephalic Neck: Supple, JVD not distended Respiratory: Diminished, Other (2L NC) Cardiovascular: Edema (BLE), Irregular heart rate/rhythm Gastrointestinal: Normal bowel sounds, Soft and benign, Non-distended Musculoskeletal: No clubbing (sacral area, unstageable & stage 3), Other (bedbound) Integumentary: Pressure ulcer (multiple areas on sacrum/buttocks/thighs, stage 3 & unstageable) Neurological: Normal speech, Normal tone, Normal affect Urinary: Thapa catheter (chronic) Laboratory Data - Reviewed Microbiology Data 01/16/23 14:30 Clean Catch Urine [place] Count - Final >100,000 CFU/ML. 01/16/23 14:30 Clean Catch Urine - Final Escherichia Coli Esbl Providencia Stuartii 01/16/23 15:15 Blood - Blood Aerobic Blood Culture - Preliminary No growth in 24 hours. 01/16/23 15:15 Blood - Blood Anaerobic Blood Culture - Preliminary No growth in 24 hours. 01/16/23 15:36 Blood - Blood Aerobic Blood Culture - Preliminary No growth in 24 hours. 01/16/23 15:36 Blood - Blood Anaerobic Blood Culture - Preliminary No growth in 24 hours. Imagings Data: - XR Chest 01/19: "Mild interstitial pulmonary edema. The heart is moderately enlarged. No displaced fractures." Conclusions/Impression: Problem List - UTI [E.coli ESBL & Providencia stuartii] - Atrial fibrillation - CHF - COPD - Hyperlipidemia - Lymphedema - History of Stroke - Pressure Injury, sacral/buttocks unstageable UTI - Chronic indwelling urinary catheter - Urine culture 01/16: E.coli ESBL & carbapenem-resistant Providencia stuartii - Merrem discontinued - Ceftazidime started 01/19 - Bladder irrigation with Acetic Acid, daily (started 01/19) Pressure Injuries / Moisture-Associated Skin Damage - Multiple areas of pressure injuries sacrum/buttocks/thighs, stage 3 and unstageable - Apply barrier cream and turn patient Q2H Recommendations - Continue IV Ceftazidime x 7 days (started 01/19) - Bladder irrigation via 3-Way Thapa with Acetic Acid, Daily for 5 days (01/19- 01/23) - Wounds: Apply barrier cream to affected areas (sacrum/buttocks/thighs) and turn patient Q2H - Continue supportive care ID will follow up and monitor patient closely Case discussed with Elliot Goncalves
[2023-01-19] MEDS: CEFTAZIDIME 2 GM in NA CHLORIDE 0.9% 100 ML IV SCH ×2 (14:32→22:17)
[2023-01-19] MEDS ORDERED: ACETIC ACID 0.25% IRRIG IRR SCH ×2 (15:00→17:00)
--- NOTE | 2023-01-19 17:53 | P.PN ---
Date of Service: 01/18/23
[2023-01-19] MEDS: ONDANSETRON 4 MG/2 ML VIAL IV PRN (20:07)
[2023-01-20] MEDS: CEFTAZIDIME 2 GM in NA CHLORIDE 0.9% 100 ML IV SCH ×2 (05:02→14:13)
[2023-01-20 07:42] LABS: Absolute Lymphocytes (CBC) 2.2 K/uL (0.7-4.9); Hematocrit 28.6 % (36.0-45.0); Lymphocytes % 44.6 % (15.3-44.8); MCV 99.3 fL (80-100); RBC Red Blood Cell Count 2.88 M/uL (3.86-4.86)
[2023-01-20 07:59] LABS: Potassium 4.1 mEq/L (3.5-5.1)
--- NOTE | 2023-01-20 08:57 | P.PN ---
Date of Service: 01/20/23 Chief Complaint: UTI, Severe Sepsis Subjective: No new changes Patient in bed, not in distress. No new complaints. No acute events reported overnight. Plan for pt to be discharged back to [facility]; To continue IV antibiotic therapy x 7 days total and Continue acetic acid bladder irrigation x 5 days total. Physical Examination - Vitals Temp Pulse Resp BP Pulse Ox 97.7 F 93 H 17 124/69 100 01/20/23 04:00 01/20/23 04:00 01/20/23 04:00 01/20/23 04:00 01/20/23 04:00 - Physical Examination General: Alert, In no apparent distress, Oriented x3 HEENT: Atraumatic, Normocephalic Neck: Supple, JVD not distended Respiratory: Diminished, Other (2L NC) Cardiovascular: Edema (BLE), Irregular heart rate/rhythm Gastrointestinal: Normal bowel sounds, Soft and benign, Non-distended Musculoskeletal: No clubbing (sacral area, unstageable & stage 3), Other (bedbound) Integumentary: Pressure ulcer (multiple areas on sacrum/buttocks/thighs, stage 3 & unstageable) Neurological: Normal speech, Normal tone, Normal affect Urinary: Thapa catheter (chronic) - Studies Laboratory Data - Reviewed Microbiology Data - Urine culture 01/16: Escherichia Coli ESBL & Providencia Stuartii - Blood cultures 01/16: No growth to date Imagings Data: - XR Chest 01/19: "Mild interstitial pulmonary edema. The heart is moderately enlarged. No displaced fractures." Medications List Reviewed: Yes Assessment and Plan Problem List - UTI [E.coli ESBL & Providencia stuartii] - Atrial fibrillation - CHF - COPD - Hyperlipidemia - Lymphedema - History of Stroke - Pressure Injury, sacral/buttocks unstageable UTI - Chronic indwelling urinary catheter - UA: LE 500, RBC 21-50, WBC >50 - Urine culture 01/16: E.coli ESBL & carbapenem-resistant Providencia stuartii - Previously on Merrem (01/16-01/19) - Currently on IV Ceftazidime (started 01/19) - Bladder irrigation with Acetic Acid, daily (started 01/19) Pressure Injuries / Moisture-Associated Skin Damage - Multiple areas of pressure injuries and moisture associated skin damage on sacrum/buttocks/thighs - Apply barrier cream and turn patient Q2H Recommendations - IV antibiotic therapy x 7 days total - Continue bladder irrigation via 3-Way Thapa with Acetic Acid, Daily for 5 days (01/19-01/23) - Wounds: Apply barrier cream to affected areas (sacrum/buttocks/thighs) and turn patient Q2H - Continue supportive care ID will follow up and monitor patient closely Case discussed with Elliot Goncalves
[2023-01-20 09:12] VITALS: O2SAT 99
[2023-01-20] MEDS: HYDROCODONE/APAP 5/325 MG TAB PO PRN (09:22)
[2023-01-20] MEDS: APIXABAN 5 MG TABLET PO SCH (09:22)
[2023-01-20 12:34] VITALS: TEMP 97.7
[2023-01-20 15:57] VITALS: BP 120/63
== END 2023-01-20 16:12 | DRG 698 ==
LOC: ER 14:02 → ERHOLD 19:46 → 2ND 22:47
PROVIDERS: ADMIT Hospitalist; ATTEND Hospitalist
PROC: 30233N1 Transfusion of Nonautologous Red Blood Cells into Peripheral Vein, Percutaneous Approach (ICD-10-PCS; principal; 2023-01-19)
DX: T83.511A Infection and inflammatory reaction due to indwelling urethral catheter, initial encounter (principal); A41.9 Sepsis, unspecified organism; L89.893 Pressure ulcer of other site, stage 3; R65.20 Severe sepsis without septic shock; I50.32 Chronic diastolic (congestive) heart failure; I69.354 Hemiplegia and hemiparesis following cerebral infarction affecting left non-dominant side; Z68.43 Body mass index [BMI] 50.0-59.9, adult; Z16.12 Extended spectrum beta lactamase (ESBL) resistance; Z16.29 Resistance to other single specified antibiotic; N39.0 Urinary tract infection, site not specified; I11.0 Hypertensive heart disease with heart failure; I48.0 Paroxysmal atrial fibrillation; J44.9 Chronic obstructive pulmonary disease, unspecified; D64.9 Anemia, unspecified; F41.8 Other specified anxiety disorders; I95.9 Hypotension, unspecified; G47.33 Obstructive sleep apnea (adult) (pediatric); E66.9 Obesity, unspecified; L89.150 Pressure ulcer of sacral region, unstageable; E78.00 Pure hypercholesterolemia, unspecified; B96.20 Unspecified Escherichia coli [E. coli] as the cause of diseases classified elsewhere; B96.89 Other specified bacterial agents as the cause of diseases classified elsewhere; Z88.5 Allergy status to narcotic agent; Z88.0 Allergy status to penicillin; Z79.01 Long term (current) use of anticoagulants; Z90.49 Acquired absence of other specified parts of digestive tract; Z79.82 Long term (current) use of aspirin; Z74.01 Bed confinement status; Z91.041 Radiographic dye allergy status; Z91.040 Latex allergy status; Z91.048 Other nonmedicinal substance allergy status; Z79.899 Other long term (current) drug therapy; Z96.653 Presence of artificial knee joint, bilateral; Z90.710 Acquired absence of both cervix and uterus; Z87.891 Personal history of nicotine dependence; Z20.822 Contact with and (suspected) exposure to COVID-19
CPT/HCPCS: 0240U; 36415; 51702; 71045; 80048; 80053; 81001; 82607; 82947; 83540; 83605; 83735; 83880; 84100; 84484; 85025; 85044; 85610; 85730; 86850; 86900; 86901; 86920; 87040; 87077; 87086; 87088; 87186; 93005; 94760; 97161; 99285; J0692; J0713; J2185; J2405; J7030; J7050; P9016; U0003